=== PATIENT | female | born 1955 | race Caucasian/White ===

== ENCOUNTER 2020-07-07 19:45 | Emergency (ER) | payer MEDICARE, MEDICAID, SELFPAY ==
--- NOTE | 2020-07-07 | XR_ITS ---
EXAMINATION: XR ELBOW, LEFT CLINICAL INFORMATION: Pain status post fall COMPARISON: None TECHNIQUE: AP, lateral, and oblique views of the left elbow. FINDINGS: The bones and soft tissues are normal. No fracture or joint effusion. Alignment is anatomic. Joint spaces are maintained. IMPRESSION: Normal left elbow. No definite fracture is seen.
[2020-07-07 19:58] VITALS: BP 110/69; PULSE 86; RESP 16; TEMP 37.1; O2SAT 100; BMI 45.7
--- NOTE | 2020-07-07 21:59 | ED.FALL ---
HPI - Fall General Chief Complaint: Fall Stated Complaint: LT ELBOW PAIN S/P FALL Time Seen by Provider: 07/07/20 21:59 Source: patient Mode of arrival: ambulatory History of Present Illness MD complaint: fall Onset (ago): hour(s) (few) Fall from: standing Place fall occurred: other ([employer]) Loss of consciousness: none Location of injury: other Location of injury - extremities: left: elbow Related Data Allergies Allergy/AdvReac Type Severity Reaction Status Date / Time adhesive tape Allergy Intermediate SKIN Unverified 06/18/20 15:29 REDNESS latex Allergy Intermediate SKIN RASH Unverified 06/18/20 15:29 WITH TAPE Adhesive Tape Allergy Unknown Uncoded 09/19/19 00:00 DUST Allergy Unknown ITCHY/WATERY Uncoded 06/18/20 15:29 EYES Dust and weeds Allergy Unknown stuffy nose Uncoded 12/05/18 00:00 Latex Gloves Allergy Unknown Uncoded 09/19/19 00:00 seasonal Allergy Unknown Uncoded 09/19/19 00:00 surgical paper tape Allergy Unknown rash Uncoded 12/05/18 00:00 Tide Allergy Unknown rash Uncoded 12/05/18 00:00 Review of Systems Review of Systems: Constitutional : No Weight loss, No Fever, No Chills, No Night Sweats, No Fatigue, No Malaise ENT/Mouth : No Hearing loss, No Ear Pain, No Nasal Congestion, No Sinus Pain, No Hoarseness, No sore throat, No Rhinorrhea, No Swallowing Difficulty Eyes: No Eye Pain, No Swelling, No Redness, No Foreign Body, No Discharge, No Vision Changes Cardiovascular : No Chest Pain, No SOB, No Dyspnea on Exertion, No Orthopnea, No Edema, No Palpitations Respiratory : No Cough, No Sputum, No Wheezing, No Smoke Exposure, No Dyspnea Gastrointestinal : No Nausea, No Vomiting, No Diarrhea, No Constipation, No abdominal Pain, No Hematochezia, No Melena Genitourinary : no irregular bleeding, No Dysuria, No Urinary Frequency, No Hematuria, No Urinary Incontinence, No Urgency, No Flank Pain, No Urinary Flow Changes, No Hesitancy Musculoskeletal : No joint pain, No Myalgias, No Joint Swelling Skin : No Skin Lesions, No rash Neuro : No Weakness, No Numbness, No Paresthesias, No Loss of Consciousness, No Dizziness, No Headache Psych : No Anxiety/Panic, No Depression, No SI/HI/AH/VH, No Social Issues, Heme/Lymph: No Bruising, No Bleeding,No Lymphadenopathy Endocrine : No Polyuria, No Polydipsia, No Temperature Intolerance [facility] Past Medical History Medical History Arthritis Developmental delay, mild Social History Social History Alcohol intake: never Smoking Status: Unknown if ever smoked Smoked in Last 30 Days: No Use of substances other than those prescribed or required for medical reasons: No Advance Directives: No Advance Directives Information Provided: No Physical Exam Vital Signs and I&O and Narrative: Vital Signs and I&O: Vital Signs Temp 98.7 F 07/07/20 19:58 Pulse 86 07/07/20 19:58 Resp 16 07/07/20 19:58 BP 110/69 07/07/20 19:58 Pulse Ox 100 07/07/20 19:58 Intake & Output 07/07/20 07/07/20 07/08/20 06:59 18:59 06:59 Weight 113.398 kg Body Mass Index 45.7 Const: General: cooperative Nutritional Appearance: average body habitus Orientation/consciousness: oriented to person Limitations: no limitations HENMT: Head: Yes normal to inspection Ears: hearing grossly normal bilaterally Neck: Neck: Yes normal visual inspection and Yes full ROM Chest: Chest palpation & inspection: normal inspection of the chest and normal palpation of entire chest wall Resp: Effort & Inspection: normal respiratory effort Auscultation: clear to auscultation bilaterally Cardio: Rate: regular rate Rhythm: regular rhythm Heart sounds: S1 normal heart sound present and S2 normal heart sound present GI: Inspection: Yes normal to inspection Palpation (GI): Soft to palpation and nontender : General: Yes no CVA tenderness Back/Spine/Pelvis: Back: no CVA tenderness Thoracic/Lumbar Spine: thoracic and lumbar spine normal to inspection Pelvis: no pain with anterior-posterior compression Neuro: General: oriented to person Cranial nerves: Yes CN's II-XII intact bilaterally Gait exam (Neuro): Normal gait present Motor exam (neuro): 5/5 motor strength present throughout Extrem: Right upper extremity: full ROM and no joint enlargement Left upper extremity: full ROM, no joint enlargement and elbow/forearm ( mild tenderness) Shoulder/upper arm images: 1. mild tenderness, Course Course Course Narrative: patient with minor injury to left elbow with good range of movements no bony deformity neurovascular intact x-rays negative for any fracture will discharge patient home on Tylenol Discharge Plan Discharge Clinical Impression: Fall, Contusion of elbow, left Patient Disposition: Home, Self-Care Instructions: Contusion in Adults (ED), Fall Prevention (ED) Additional Instructions: apply ice, take Tylenol for pain as needed every 6 hours Interventions: ED Discharge Assessment Last Done: 07/07/20 22:10 Discharge Date/Time: 07/07/20 22:24
== END 2020-07-07 22:24 | disposition home or self-care (01) ==
PROVIDERS: Emergency Provider Internal Medicine; PCP Internal Medicine
DX: S50.02XA Contusion of left elbow, initial encounter (principal); S50.312A Abrasion of left elbow, initial encounter; M25.522 Pain in left elbow; W18.30XA Fall on same level, unspecified, initial encounter; Y93.9 Activity, unspecified; Y92.513 Shop (commercial) as the place of occurrence of the external cause; Y99.9 Unspecified external cause status
CPT/HCPCS: 73070; 99283; 99284

== ENCOUNTER 2020-08-13 01:49 | Emergency (ER) | payer MEDICARE, MEDICAID, SELFPAY ==
[2020-08-13 01:56] VITALS: BP 130/60; PULSE 79; RESP 76; TEMP 36.8; O2SAT 96; BMI 50.7
--- NOTE | 2020-08-13 03:24 | CT_ITS ---
EXAMINATION: CT ABDOMEN AND PELVIS WITH CONTRAST CLINICAL INFORMATION: Lower abdominal pain. COMPARISON: 06/03/2020. TECHNIQUE: Contiguous axial thin section helical images of the abdomen and pelvis were performed following the administration of 100 mL of intravenous Omnipaque 350. The data set was reformatted in the coronal and sagittal planes and reviewed on an independent workstation. DLP: 1132 mGy-cm. FINDINGS: The visualized lung bases are clear. The visualized portions of the heart are unremarkable. There is a small hiatal hernia. The liver is of normal size and attenuation without concerning focal lesions nor intrahepatic biliary ductal dilation. There is a stable 17 mm low-attenuation lesion within the left lobe of the liver. A normal gallbladder is identified. There is no wall thickening or discernible pericholecystic fluid. The spleen, pancreas, adrenal glands are unremarkable. Both kidneys are of normal size and attenuation without hydronephrosis or nephrolithiasis. Following the administration of IV contrast, prompt symmetric nephrograms are displayed. There is no abdominal free fluid. There is neither mesenteric nor retroperitoneal lymphadenopathy. Surgical clips are again noted about the rectum; otherwise, unremarkable unopacified loops of small and large bowel are identified. There is no pelvic free fluid. The urinary bladder is unremarkable. There is neither pelvic nor inguinal lymphadenopathy. Bone windows: Neither sclerotic nor lytic bone lesions are identified. CT/CT abdomen pelvis w con IMPRESSION: No evidence for acute abdominal or pelvic inflammatory or infectious processes. Automated exposure control (Care Dose) Adjustment of the mA and/or kv according to patient size (this includes techniques or standardized protocols for targeted exams where dose is matched to indication / reason for exam; i.e. extremities or head).
[2020-08-13 03:57] LABS: Basophils Percent Auto 0.5 % (0-2); Eosinophils Absolute Auto 0.1 X10*3/uL (0.0-0.4); Eosinophils Percent Auto 1.2 % (0-4); Hematocrit 41.4 % (37-47); Hemoglobin 13.1 g/dl (12.0-16.0); Imm Gran Abs Auto 0.02 X10*3/uL (0.00-0.03); Imm Gran Pct Auto 0.2 % (0.0-0.4); Lymphocytes Absolute Auto 1.7 X10*3/uL (1.2-4.9); Lymphocytes Percent Auto 21.2 % (20-40); MANUAL DIFF FLAG NO; Mean Corpuscular HGB Conc 31.6 g/dl (31.0-35.0); Mean Corpuscular Hemoglobin 28.9 pg (27.0-33.0); Mean Corpuscular Volume 91.2 fL (80-98); Mean Platelet Volume 9.6 fL (9.4-12.3); Monocytes Absolute Auto 0.7 X10*3/uL (0.1-1.2); Monocytes Percent Auto 8.1 % (2-11); Neutrophils Absolute Auto 5.6 X10*3/uL (2.0-8.3); Neutrophils Percent Auto 68.8 % (45-73); Platelet Count 293 X10*3/uL (160-400); Red Blood Count 4.54 X10*6/uL (4.20-5.50); White Blood Count 8.1 X10*3/uL (4.8-10.8)
[2020-08-13] MEDS: 0.9 % Sodium Chloride 1,000 ML 999 ML IVCONT (03:57)
[2020-08-13 04:21] LABS: Alanine Aminotransferase 28 U/L (0-31); Albumin Level 3.7 g/dL (3.5-5.0); Alkaline Phosphatase 104 U/L (39-117); Anion Gap 12 (12-20); Aspartate Amino Transferase 22 U/L (5-31); Bilirubin Total 0.4 mg/dL (0.0-1.0); Blood Urea Nitrogen 16 mg/dL (9-16); Calcium 8.8 mg/dL (8.4-10.2); Carbon Dioxide 28 mmol/L (22-29); Chloride 104 mmol/L (96-108); Creatinine Clr Calc Pharmacy 100.7; Estimated Glomerular Filt Rate > 60; Glucose Random 102 mg/dL (60-115); Potassium 3.5 mmol/l (3.3-5.1); Sodium 140 mmol/L (135-145); Total Protein 6.7 g/dL (6.5-8.0)
[2020-08-13 04:22] LABS: Alanine Aminotransferase 28 U/L (0-31); Albumin Level 3.7 g/dL (3.5-5.0); Alkaline Phosphatase 106 U/L (39-117); Anion Gap 12 (12-20); Aspartate Amino Transferase 21 U/L (5-31); Bilirubin Direct 0.2 mg/dL (0.0-0.5); Bilirubin Total 0.4 mg/dL (0.0-1.0); Blood Urea Nitrogen 16 mg/dL (9-16); Calcium 8.8 mg/dL (8.4-10.2); Carbon Dioxide 28 mmol/L (22-29); Chloride 104 mmol/L (96-108); Creatinine Clr Calc Pharmacy 100.7; Estimated Glomerular Filt Rate > 60; Glucose Random 102 mg/dL (60-115); Lipase 21 U/L (8-78); Potassium 3.6 mmol/l (3.3-5.1); Sodium 140 mmol/L (135-145); Total Protein 6.7 g/dL (6.5-8.0)
[2020-08-13] MEDS: iohexoL 350 MG/ML 100 ML INFUS..BTL IV (04:51)
--- NOTE | 2020-08-13 05:00 | PC.NURSE ---
PT AMBULATORY WITH STEADY GAIT TO BATHROOM X 2. PT HAVING DIFFICULTY FOLLOWING DIRECTIONS ON HOW TO OBTAIN URINE SAMPLE. WILL STAY WITH PATIENT ON NEXT ATTEMPT.
[2020-08-13] MEDS: Acetaminophen 325 MG TABLET 650 MG PO (05:18)
[2020-08-13 06:14] VITALS: BP 133/74; PULSE 76; RESP 18; O2SAT 98
--- NOTE | 2020-08-13 06:23 | ED.ABDPAIN ---
HPI - Abdominal Pain General Chief Complaint: Abdominal Pain Stated Complaint: abdominal pain Time Seen by Provider: 08/13/20 03:11 Mode of arrival: EMS Limitations: no limitations History of Present Illness HPI narrative: Patient comes to emergency room complaining of abdominal pain, bilateral lower quadrants 1 hour prior to arrival and anxiety. Patient denies vomiting diarrhea or fever. Patient reporting anxiety. MD elicited complaint: abdominal pain Related Data Previous Rx's Medication Instructions Recorded cefuroxime axetil 500 mg PO BID #14 tab 08/13/20 Allergies Allergy/AdvReac Type Severity Reaction Status Date / Time adhesive tape Allergy Intermediate SKIN Verified 08/13/20 03:56 REDNESS latex Allergy Intermediate SKIN RASH Verified 08/13/20 03:56 WITH TAPE Adhesive Tape Allergy Unknown Itching Uncoded 08/13/20 03:56 DUST Allergy Unknown ITCHY/WATERY Uncoded 06/18/20 15:29 EYES Dust and weeds Allergy Unknown stuffy nose Uncoded 12/05/18 00:00 Latex Gloves Allergy Unknown Itching Uncoded 08/13/20 03:56 seasonal Allergy Unknown Itching Uncoded 08/13/20 03:56 surgical paper tape Allergy Unknown rash Uncoded 12/05/18 00:00 Tide Allergy Unknown rash Uncoded 12/05/18 00:00 Review of Systems Review of Systems Constitutional : No Weight loss, No Fever, No Chills, No Night Sweats, No Fatigue, No Malaise ENT/Mouth : No Hearing loss, No Ear Pain, No Nasal Congestion, No Sinus Pain, No Hoarseness, No sore throat, No Rhinorrhea, No Swallowing Difficulty Eyes: No Eye Pain, No Swelling, No Redness, No Foreign Body, No Discharge, No Vision Changes Cardiovascular : No Chest Pain, No SOB, No Dyspnea on Exertion, No Orthopnea, No Edema, No Palpitations Respiratory : No Cough, No Sputum, No Wheezing, No Smoke Exposure, No Dyspnea Gastrointestinal : Patient complaining bilateral lower quadrant pain, no nausea, no vomiting or diarrhea, No Hematochezia, No Melena Genitourinary : no irregular bleeding, No Dysuria, No Urinary Frequency, No Hematuria, No Urinary Incontinence, No Urgency, No Flank Pain, No Urinary Flow Changes, No Hesitancy Musculoskeletal : No joint pain, No Myalgias, No Joint Swelling Skin : No Skin Lesions, No rash Neuro : No Weakness, No Numbness, No Paresthesias, No Loss of Consciousness, No Dizziness, No Headache Psych : No Anxiety/Panic, No Depression, No SI/HI/AH/VH, No Social Issues, Heme/Lymph: No Bruising, No Bleeding,No Lymphadenopathy Endocrine : No Polyuria, No Polydipsia, No Temperature Intolerance Physical Exam Vital Signs: Vital Signs: Last Vital Signs Temp 98.2 F 08/13/20 01:56 Pulse 76 08/13/20 06:14 Resp 18 08/13/20 06:14 BP 133/74 08/13/20 06:14 Pulse Ox 98 08/13/20 06:14 Body Mass Index 50.7 Course Course Course Narrative: I discussed the labs with the patient, patient has a UTI. Patient states she has been treated recently for UTI but does not remember when and what antibiotic she got MDM - Abdominal Pain Lab Data Result diagrams: 08/13/20 03:52 08/13/20 03:53 Labs: Lab Results 08/13/20 08/13/20 08/13/20 Range/Units 03:52 03:52 03:53 WBC 8.1 (4.8-10.8) X10*3/uL RBC 4.54 (4.20-5.50) X10*6/uL Hgb 13.1 (12.0-16.0) g/dl Hct 41.4 (37-47) % MCV 91.2 (80-98) fL MCH 28.9 (27.0-33.0) pg MCHC 31.6 (31.0-35.0) g/dl RDW 13.0 (11.0-16.0) % Plt Count 293 (160-400) X10*3/uL MPV 9.6 (9.4-12.3) fL Immature Gran % (Auto) 0.2 (0.0-0.4) % Neut % (Auto) 68.8 (45-73) % Lymph % (Auto) 21.2 (20-40) % [place] % (Auto) 8.1 (2-11) % Eos % (Auto) 1.2 (0-4) % Baso % (Auto) 0.5 (0-2) % Lymph # (Auto) 1.7 (1.2-4.9) X10*3/uL [place] # (Auto) 0.7 (0.1-1.2) X10*3/uL Eos # (Auto) 0.1 (0.0-0.4) X10*3/uL Baso # (Auto) 0.0 (0.0-0.2) X10*3/uL Abs Immat Gran (auto) 0.02 (0.00-0.03) X10*3/uL Absolute Neuts (auto) 5.6 (2.0-8.3) X10*3/uL Absolute Nucleated RBC 0.000 (0.0-0.012) X10*3/uL Nucleated RBC % (auto) 0.0 (0.0-0.2) /100WBC Hold Blue Top SEE NOTE Sodium 140 (135-145) mmol/L Potassium 3.5 (3.3-5.1) mmol/l Chloride 104 (96-108) mmol/L Carbon Dioxide 28 (22-29) mmol/L Anion Gap 12 (12-20) BUN 16 (9-16) mg/dL Creatinine 0.68 (0.5-1.4) mg/dL Estim Creat Clear Calc 100.7 Estimated GFR > 60 Random Glucose 102 (60-115) mg/dL Calcium 8.8 (8.4-10.2) mg/dL Total Bilirubin 0.4 (0.0-1.0) mg/dL Direct Bilirubin (0.0-0.5) mg/dL AST 22 (5-31) U/L ALT 28 (0-31) U/L Alkaline Phosphatase 104 (39-117) U/L Total Protein 6.7 (6.5-8.0) g/dL Albumin 3.7 (3.5-5.0) g/dL Lipase (8-78) U/L Urine Color Urine Appearance Urine pH (5.0-8.0) Ur Specific [place] (1.005-1.025) Urine Protein (NEG-TRACE) MG/DL Urine Glucose (UA) (NEG) MG/DL Urine Ketones (NEG) MG/DL Urine Blood (NEG) Urine Nitrite (NEG) Ur Leukocyte Esterase (NEG) Urine RBC (0) /HPF Urine WBC (0-4) /HPF Ur Squamous Epith Cells /LPF Urine Bacteria /LPF 11/12/20 11/12/20 Range/Units 03:53 06:30 WBC (4.8-10.8) X10*3/uL RBC (4.20-5.50) X10*6/uL Hgb (12.0-16.0) g/dl Hct (37-47) % MCV (80-98) fL MCH (27.0-33.0) pg MCHC (31.0-35.0) g/dl RDW (11.0-16.0) % Plt Count (160-400) X10*3/uL MPV (9.4-12.3) fL Immature Gran % (Auto) (0.0-0.4) % Neut % (Auto) (45-73) % Lymph % (Auto) (20-40) % [place] % (Auto) (2-11) % Eos % (Auto) (0-4) % Baso % (Auto) (0-2) % Lymph # (Auto) (1.2-4.9) X10*3/uL [place] # (Auto) (0.1-1.2) X10*3/uL Eos # (Auto) (0.0-0.4) X10*3/uL Baso # (Auto) (0.0-0.2) X10*3/uL Abs Immat Gran (auto) (0.00-0.03) X10*3/uL Absolute Neuts (auto) (2.0-8.3) X10*3/uL Absolute Nucleated RBC (0.0-0.012) X10*3/uL Nucleated RBC % (auto) (0.0-0.2) /100WBC Hold Blue Top Sodium 140 (135-145) mmol/L Potassium 3.6 (3.3-5.1) mmol/l Chloride 104 (96-108) mmol/L Carbon Dioxide 28 (22-29) mmol/L Anion Gap 12 (12-20) BUN 16 (9-16) mg/dL Creatinine 0.68 (0.5-1.4) mg/dL Estim Creat Clear Calc 100.7 Estimated GFR > 60 Random Glucose 102 (60-115) mg/dL Calcium 8.8 (8.4-10.2) mg/dL Total Bilirubin 0.4 (0.0-1.0) mg/dL Direct Bilirubin 0.2 (0.0-0.5) mg/dL AST 21 (5-31) U/L ALT 28 (0-31) U/L Alkaline Phosphatase 106 (39-117) U/L Total Protein 6.7 (6.5-8.0) g/dL Albumin 3.7 (3.5-5.0) g/dL Lipase 21 (8-78) U/L Urine Color YELLOW Urine Appearance HAZY Urine pH 5.5 (5.0-8.0) Ur Specific [place] 1.015 (1.005-1.025) Urine Protein NEG (NEG-TRACE) MG/DL Urine Glucose (UA) NEG (NEG) MG/DL Urine Ketones NEG (NEG) MG/DL Urine Blood NEG (NEG) Urine Nitrite POS H (NEG) Ur Leukocyte Esterase NEG (NEG) Urine RBC 0 (0) /HPF Urine WBC 10-14 H (0-4) /HPF Ur Squamous Epith Cells TRACE /LPF Urine Bacteria 3+ /LPF Discharge Plan Discharge Clinical Impression: Acute UTI Abdominal pain Qualifiers: Abdominal location: unspecified location Qualified Code(s): R10.9 - Unspecified abdominal pain Patient Disposition: Home, Self-Care Instructions: Urinary Tract Infection in Older Adults (ED) Additional Instructions: Please follow-up with your primary care physician tomorrow. If you have any worsening or new symptoms, please return to the emergency room or call 911 Prescriptions: New cefuroxime axetil 500 mg tablet 500 mg PO BID Qty: 14 RF: 0 PMFSH Past Medical History Medical History Arthritis Developmental delay, mild Social History Social History Alcohol intake: never Smoking Status: Unknown if ever smoked Advance Directives: No Advance Directives Information Provided: No
[2020-08-13 06:43] LABS: Glucose Urine UA NEG (NEG); Leukocyte Esterase Urine NEG (NEG); Nitrite Urine POS (NEG); PH 5.5 (5.0-8.0); Specific Gravity - Urine 1.015 (1.005-1.025); Urine Blood NEG (NEG); Urine Ketones NEG (NEG); Urine Protein NEG (NEG-TRACE)
[2020-08-13 06:44] LABS: Appearance Urine HAZY; Color Urine YELLOW
[2020-08-13 06:51] LABS: Bacteria Urine 3+ /LPF; RBC Urine 0 /HPF (0); Squamous Epithelial Cell Urine TRACE /LPF
[2020-08-13] MEDS: cefTRIAXone sodium 1 GM in 0.9 % Sodium Chloride 50 ML IV (07:13)
[2020-08-13 08:38] VITALS: BP 143/66; PULSE 67; RESP 18; TEMP 36.6; O2SAT 98
== END 2020-08-13 08:47 | disposition home or self-care (01) ==
PROVIDERS: Emergency Provider Emergency Medicine; PCP Internal Medicine
DX: N39.0 Urinary tract infection, site not specified (principal); R10.30 Lower abdominal pain, unspecified; Z79.899 Other long term (current) drug therapy
CPT/HCPCS: 36415; 74177; 80048; 80053; 80076; 81001; 82248; 83690; 85025; 87086; 87088; 87186; 96361; 96365; 99283; 99284; J0696; Q9967

== ENCOUNTER 2020-08-24 14:09 | Outpatient (REF) | payer MEDICARE, MEDICAID, SELFPAY | END 2020-08-24 14:10 | disposition home or self-care (01) | LOC: HO.LAB 14:09 | PROVIDERS: PCP Internal Medicine; Visit Provider Internal Medicine | DX: Z20.828 Contact with and (suspected) exposure to other viral communicable diseases (principal) | CPT/HCPCS: C9803; U0003 ==

== ENCOUNTER 2020-09-26 20:50 | Emergency (ER) | payer MEDICARE, MEDICAID, SELFPAY ==
[2020-09-26 21:07] VITALS: BP 117/45; PULSE 68; RESP 15; TEMP 36.9; O2SAT 95; BMI 48.6
--- NOTE | 2020-09-26 21:28 | ED_ITS ---
HPI - General Adult General Chief complaint: General Medical Stated complaint: blood stool Time Seen by Provider: 09/26/20 20:53 Source: patient and EMS Mode of arrival: EMS Limitations: no limitations History of Present Illness HPI narrative: Patient comes to emergency room complaining of seeing blood in her briefs. Patient comes from a assisted-living facility, per caretakers, the patient had some whitish reddish discharge on her briefs. Patient states that it only happened 1 time earlier today, denies vaginal bleeding. Patient denies any abdominal pain, no vomiting, no diarrhea, no rectal pain. At this time, patient asymptomatic. Per EMS report, patient is known to have large lung tumor, which is being followed up in [facility] complaint: Blood per rectum Related Data Previous Rx's Medication Instructions Recorded cefuroxime axetil 500 mg PO BID #14 tab 08/13/20 Allergies Allergy/AdvReac Type Severity Reaction Status Date / Time adhesive tape Allergy Intermediate SKIN Verified 08/13/20 03:56 REDNESS latex Allergy Intermediate SKIN RASH Verified 08/13/20 03:56 WITH TAPE Adhesive Tape Allergy Unknown Itching Uncoded 08/13/20 03:56 DUST Allergy Unknown ITCHY/WATERY Uncoded 06/18/20 15:29 EYES Dust and weeds Allergy Unknown stuffy nose Uncoded 12/05/18 00:00 Latex Gloves Allergy Unknown Itching Uncoded 08/13/20 03:56 seasonal Allergy Unknown Itching Uncoded 08/13/20 03:56 surgical paper tape Allergy Unknown rash Uncoded 12/05/18 00:00 Tide Allergy Unknown rash Uncoded 12/05/18 00:00 Review of Systems Review of Systems: Constitutional : No Weight loss, No Fever, No Chills, No Night Sweats, No Fatigue, No Malaise ENT/Mouth : No Hearing loss, No Ear Pain, No Nasal Congestion, No Sinus Pain, No Hoarseness, No sore throat, No Rhinorrhea, No Swallowing Difficulty Eyes: No Eye Pain, No Swelling, No Redness, No Foreign Body, No Discharge, No Vision Changes Cardiovascular : No Chest Pain, No SOB, No Dyspnea on Exertion, No Orthopnea, No Edema, No Palpitations Respiratory : No Cough, No Sputum, No Wheezing, No Smoke Exposure, No Dyspnea Gastrointestinal : No Nausea, No Vomiting, No Diarrhea, No Constipation, No abdominal Pain, complaining of seeing blood in her underwear Genitourinary : no irregular bleeding, No Dysuria, No Urinary Frequency, No Hematuria, No Urinary Incontinence, No Urgency, No Flank Pain, No Urinary Flow Changes, No Hesitancy Musculoskeletal : No joint pain, No Myalgias, No Joint Swelling Skin : No Skin Lesions, No rash Neuro : No Weakness, No Numbness, No Paresthesias, No Loss of Consciousness, No Dizziness, No Headache Psych : No Anxiety/Panic, No Depression, No SI/HI/AH/VH, No Social Issues, Heme/Lymph: No Bruising, No Bleeding,No Lymphadenopathy Endocrine : No Polyuria, No Polydipsia, No Temperature Intolerance [facility] Past Medical History Medical History (Updated 09/27/20 @ 00:16 by Tara Hitchcock MD) Arthritis Developmental delay, mild Lung mass Social History Social History Alcohol intake: never Smoking Status: Never smoker Use of substances other than those prescribed or required for medical reasons: No Advance Directives: No Physical Exam Vital Signs: Vital Signs: Last Vital Signs Temp 98.4 F 09/26/20 21:07 Pulse 68 09/26/20 21:07 Resp 15 09/26/20 21:07 BP 117/45 L 09/26/20 21:07 Pulse Ox 95 09/26/20 21:07 Body Mass Index 48.6 Appearance: Alert. Oriented X3. No acute distress. Eyes: Pupils equal, round and reactive to light. ENT: Pharynx normal. Neck: Normal inspection. Neck supple. No lymph nodes noted. No crepitus CVS: Normal heart rate and rhythm. Pulses normal. Normal S1 and S2 Respiratory: No respiratory distress. Breath sounds normal. No Wheezing. No rales Abdomen: Soft and nontender. No rigidity. No distention. good BS x4. Digital rectal exam shows normal brown stool, no hemorrhoids Skin: Skin warm and dry. Normal skin color. Normal skin turgor. Extremities: No lower extremity edema. No lower extremity edema. No Lacerations. No Rash Neuro: Oriented X 3. No motor deficit. No sensory deficit. Moving all extermities. No slurred speech. Course Course Course Narrative: Patient has stool occult blood test is negative. Per patient's assisted living facility, they are requesting a COVID-19 test. Patient's urinalysis was negative, patient was tested for COVID-19, the results are pending. On physical exam, patient had no blood in her briefs or in the rectum Medical Decision Making Lab Data Labs: Lab Results 09/26/20 09/26/20 Range/Units 21:29 23:25 Urine Color YELLOW Urine Appearance CLEAR Urine pH 7.5 (5.0-8.0) Ur Specific [place] 1.020 (1.005-1.025) Urine Protein NEG (NEG-TRACE) MG/DL Urine Glucose (UA) NEG (NEG) MG/DL Urine Ketones NEG (NEG) MG/DL Urine Blood NEG (NEG) Urine Nitrite NEG (NEG) Ur Leukocyte Esterase NEG (NEG) Stool Occult Blood NEG (NEG) Discharge Plan Discharge Clinical Impression: History of rectal bleeding Patient Disposition: Home, Self-Care Additional Instructions: There was no blood in the stool, the urinalysis was negative for infection. You were tested for COVID-19, you will receive a phone call in approximately 72 hours if your results are positive. Please follow-up with your primary care physician tomorrow. If you have any worsening or new symptoms, please return to the emergency room or call 911 Prescriptions: No Action cefuroxime axetil 500 mg tablet 500 mg PO BID Qty: 14 RF: 0
[2020-09-26 21:48] LABS: OBS Int Ctl Valid YES; OBS1 NEG (NEG)
[2020-09-26 23:38] LABS: Glucose Urine UA NEG (NEG); Leukocyte Esterase Urine NEG (NEG); Nitrite Urine NEG (NEG); PH 7.5 (5.0-8.0); Urine Blood NEG (NEG); Urine Ketones NEG (NEG); Urine Protein NEG (NEG-TRACE)
[2020-09-26 23:42] LABS: Appearance Urine CLEAR; Color Urine YELLOW
[2020-09-27] VITALS: RESP 15
== END 2020-09-27 01:09 | disposition home or self-care (01) ==
PROVIDERS: Emergency Provider Emergency Medicine
DX: K62.5 Hemorrhage of anus and rectum (principal); Z20.828 Contact with and (suspected) exposure to other viral communicable diseases
CPT/HCPCS: 81003; 82272; 99284; U0003

== ENCOUNTER 2020-10-19 12:25 | Outpatient (REF) | payer MEDICARE, MEDICAID, SELFPAY ==
--- NOTE | 2020-10-19 12:32 | MM_ITS ---
EXAMINATION: MM SCREENING DIGITAL MAMMOGRAPHY, BILATERAL CLINICAL INFORMATION: Screening. Asymptomatic. The lifetime risk of breast cancer based on the Tyrer-Cuzick Model is 5%. COMPARISON: Mammography: 02/16/2019, 10/25/2016 TECHNIQUE: Digital mammography is performed in craniocaudal and mediolateral oblique views along with computer-aided detection (CAD). Additional bilateral MLO views are provided. FINDINGS: The breasts are almost entirely fatty (ACR BI-RADS breast composition Category a). There are no significant masses, abnormal calcifications, or other abnormalities. The axilla and skin contours are unremarkable. No significant changes. MM/MM screening mammo BI IMPRESSION: No mammographic evidence of malignancy. ASSESSMENT: BI-RADS 1: Negative RECOMMENDATION: Routine annual mammography screening. This patient's information was entered into a reminder system with a target due date for their next mammogram.
== END 2020-10-19 12:26 | disposition home or self-care (01) ==
LOC: HO.MAMMO 12:25
PROVIDERS: PCP Internal Medicine; Visit Provider Internal Medicine
DX: Z12.31 Encounter for screening mammogram for malignant neoplasm of breast (principal)
CPT/HCPCS: 77067

== ENCOUNTER 2021-01-05 09:53 | Emergency (ER) | payer MEDICARE, MEDICAID, SELFPAY ==
[2021-01-05] VITALS (7 sets, daily range): BP systolic 138–155; BP diastolic 66–79; PULSE 87–101; RESP 16–19; TEMP 36.6–37.2; O2SAT 96–99; BMI 38.9
--- NOTE | ~2021-01-05 | XR_ITS ---
EXAMINATION: XR SHOULDER, LEFT CLINICAL INFORMATION: Post reduction COMPARISON: Previous x-rays most recent from earlier the same day TECHNIQUE: AP view of the left shoulder. FINDINGS: The humeral head is dislocated medially and inferiorly with respect to the glenoid. There are fractures of the left greater tuberosity and glenoid. This appears similar to x-ray from earlier the same day There is mild arthritis at the acromioclavicular joint. XR/XR shoulder LT min 2V IMPRESSION: Fracture dislocation of the left shoulder similar to earlier exam.
--- NOTE | ~2021-01-05 | XR_ITS ---
EXAMINATION: 1. RADIOGRAPHS LEFT SHOULDER 2. RADIOGRAPHS LEFT HUMERUS CLINICAL INFORMATION: Pain after fall COMPARISON: Left shoulder x-rays May 25, 2020 TECHNIQUE: 2 views of the left shoulder and 2 views of the left humerus were obtained. FINDINGS: Anterior dislocation of the left humeral head. There is a mildly displaced fracture of the left humeral head. Cortical irregularity of the glenoid suggests a nondisplaced fracture. There are hypertrophic changes of the left acromioclavicular joint. Visualized left-sided ribs and lung parenchyma are unremarkable. Degenerative changes of the spine. XR/XR humerus LT IMPRESSION: Anterior shoulder dislocation with associated fractures of the humeral head and glenoid.
--- NOTE | ~2021-01-05 | XR_ITS ---
EXAMINATION: XR SHOULDER, LEFT CLINICAL INFORMATION: Status post reduction COMPARISON: X-rays earlier today TECHNIQUE: Internal rotation view of the left shoulder. XR/XR shoulder LT 1V FINDINGS/IMPRESSION: Humeral head appears to demonstrate good articulation with the glenoid fossa on this single view of the left shoulder. Fractures of the humeral head and glenoid fossa are less well appreciated on this x-ray.
--- NOTE | ~2021-01-05 | XR_ITS ---
EXAMINATION: 1. RADIOGRAPHS LEFT SHOULDER 2. RADIOGRAPHS LEFT HUMERUS CLINICAL INFORMATION: Pain after fall COMPARISON: Left shoulder x-rays May 25, 2020 TECHNIQUE: 2 views of the left shoulder and 2 views of the left humerus were obtained. FINDINGS: Anterior dislocation of the left humeral head. There is a mildly displaced fracture of the left humeral head. Cortical irregularity of the glenoid suggests a nondisplaced fracture. There are hypertrophic changes of the left acromioclavicular joint. Visualized left-sided ribs and lung parenchyma are unremarkable. Degenerative changes of the spine. XR/XR shoulder LT min 2V IMPRESSION: Anterior shoulder dislocation with associated fractures of the humeral head and glenoid.
--- NOTE | 2021-01-05 10:33 | ED.EXTPRO ---
HPI - Extremity Problem General Chief complaint: Extremity Injury, Upper Stated complaint: lt arm pain, fall Time Seen by Provider: 01/05/21 10:25 Source: patient Mode of arrival: ambulatory Limitations: no limitations History of Present Illness HPI Narrative: 65 y/o female presenting from her custodial c/o left arm and shoulder pain s/p unwitnessed fall at 1am today. She states she was using her walker in the middle the night to go to the bathroom when she tripped on her nightstand and fell to the ground on her left side. Staff in the custodial heard her fall. EMS was called to help her up, per their policy. EMS assisted her up and she c/o left arm pain at the time. She had no apparent injury so she was kept at home. She did not hit her head or lose consciousness. She is not on anticoagulation. She reported continued pain this morning so she was brought in for evaluation. She denies numbness, tingling. She has pain with abduction. She was able to walk into the ER using her rollator walker but was favoring her right arm. MD Complaint: extremity pain Onset (ago): hour(s) (9) Pain Consistency: constant Location: left and upper extremity Quality: aching Radiation: proximal Relieving factors: immobilization and rest Exacerbating factors: range of motion and palpation Associated symptoms: denies other symptoms Related Data Previous Rx's Medication Instructions Recorded cefuroxime axetil 500 mg PO BID #14 tab 08/13/20 Allergies Allergy/AdvReac Type Severity Reaction Status Date / Time adhesive tape Allergy Intermediate SKIN Verified 08/13/20 03:56 REDNESS latex Allergy Intermediate SKIN RASH Verified 08/13/20 03:56 WITH TAPE Adhesive Tape Allergy Unknown Itching Uncoded 08/13/20 03:56 DUST Allergy Unknown ITCHY/WATERY Uncoded 06/18/20 15:29 EYES Dust and weeds Allergy Unknown stuffy nose Uncoded 12/05/18 00:00 Latex Gloves Allergy Unknown Itching Uncoded 08/13/20 03:56 seasonal Allergy Unknown Itching Uncoded 08/13/20 03:56 surgical paper tape Allergy Unknown rash Uncoded 12/05/18 00:00 Tide Allergy Unknown rash Uncoded 12/05/18 00:00 Review of Systems Review of Systems: Constitutional: No Fever, No Chills Cardiovascular: No Chest Pain Gastrointestinal: No Nausea, No Vomiting, No Diarrhea, No abdominal Pain Musculoskeletal: + joint pain, + Myalgias Skin: No Skin Lesions, No rash Neuro: No Weakness, No Numbness, No Dizziness, No Headache Heme/Lymph: No Bruising PMFSH Past Medical History Attestation statement: The following information was validated with the patient. Medical History Arthritis Colon cancer Developmental delay, mild Lung mass Social History Social History Alcohol intake: never Smoking Status: Never smoker Smoked in Last 30 Days: No Use of substances other than those prescribed or required for medical reasons: No Advance Directives: No Advance Directives Information Provided: No Physical Exam Vital Signs: Vital Signs: Last Vital Signs Temp 98 F 01/05/21 13:20 Pulse 87 01/05/21 14:14 Resp 18 01/05/21 14:08 BP 138/66 01/05/21 14:14 Pulse Ox 97 01/05/21 14:14 Body Mass Index 38.9 Appearance: Alert. Oriented X3. No acute distress. HEENT: normal inspection CVS: Normal heart rate and rhythm. Pulses normal. Respiratory: No respiratory distress. Skin: Skin warm and dry. Normal skin color. Normal skin turgor. No rashes. Extremities: left arm with normal inspection. anterior shoulder tenderness, mid humerus tenderness, with significant adipose tissue, unable to palpate any deformity, pain with abduction, NV intact distally. normal hand graps, normal passive ROM of left elbow. no clavicular tenderness Neuro: Oriented X 3. No motor deficit. No sensory deficit. Course Course Course Narrative: 65 yo female presenting with left shoulder and upper arm pain s/p mechanical fall early this morning. No obvious deformity. Will get XR of shoulder and humerus. PO motrin ordered. Reevaluation(s) Reevaluation #1: XR showing anterior shoulder dislocation w/ humeral head and glenoid fractures. XR photos sent to [facility] from Ortho - recommended reduction in the ER and f/u in the office in 1 week. Reevaluation #2: Shoulder reduction attempted while patient prone with successful reduction however upon placing the patient back in supine positioning shoulder may have dislocated again. Portable XR pending. May need to consciously sedate if remains dislocated. Reevaluation #3: Patient required conscious sedation for shoudler reduction with Dr. Gagnon - given total of 120 mg propofol with adequate analgesia, RT at bedside with close cardiopulmonary monitoring. After multiple attempts shoulder was successfully reduces and immbolized in a sling and swath. Montiored closely after the procedure. She tolerated it well. She uses a rollator at baseline and will be diffucut to ambulate and perform ADL's in a sling. Spoke with telephonic case manager, will get PT consult for further evaluation. custodial employee at bedside and agrees with plan. Additional Reevaluation(s): Patient seen and evaluated by PT. Recommending STR. CM aware. She is a [facility] patient will require overnight stay in the ED to find appropriate placement. Physician observation started at 4:15 pm. Placed in observation as she is awaiting placement to STR. She is vitally stable and mental status is at her baseline. Lungs are clear with RRR. Pain control ordered with around the clock Tylenol and PRN Motrin. Will continue to monitor. Consultations Consultation #1: Orthopedics - Hoda Box PA-C Consultation #2: Case management Consultation #3: Physical therapy Procedures Orthopedic Joint Reduction Joint #1: Time Out Performed: Yes Side: left Joint Reduction Location: shoulder Analgesia: procedural sedation (propofol) Shoulder Technique Used (if applicable): scapula manipulation Technique used: traction/counter-traction Post-reduction neuro exam: intact Post-reduction vascular: no change Post Reduction X-Ray Obtained: Yes Post Reduction X-Ray Results: reduced Splint Applied: Yes Patient Tolerated Procedure: well Additional Comments: patient had successful joint reduction x2 with repeated dislocation, after 3rd traction attempt joint was reduced stabilized with sling and swathe - XR showed reduction. Ortho made aware of recurrent dislocations and difficulty - they are recommending sling and swath and f/u in the office in 1 week. Critical Care Time Critical Care Time Critical Care Time: Yes Total Critical Care Time: 45 Attestation: I attest to critical care time spent caring for this patient who required procedural sedation for joint reduction and close monitoring of her cardiopulmonary status. Discharge Plan Discharge Clinical Impression: Anterior shoulder dislocation Qualifiers: Encounter type: initial encounter Laterality: left Qualified Code(s): S43.015A - Anterior dislocation of left humerus, initial encounter Closed fracture of greater tuberosity of humerus Qualifiers: Encounter type: initial encounter Fracture alignment: nondisplaced Laterality: left Qualified Code(s): S42.255A - Nondisplaced fracture of greater tuberosity of left humerus, initial encounter for closed fracture Glenoid fracture of shoulder Qualifiers: Encounter type: initial encounter Fracture type: closed Laterality: left Qualified Code(s): S42.142A - Displaced fracture of glenoid cavity of scapula, left shoulder, initial encounter for closed fracture Patient Disposition: er [facility] Instructions: Shoulder Dislocation (ED), Shoulder Immobilizer (ED) Additional Instructions: Your shoulder x-rays in the ER showed it was out of place, along with 2 small fractures within the joint. Your shoulder was put back into place under moderate sedation. Keep your shoulder immobilized with the sling and swathe. Do not use your left arm. You are at risk of re-dislocating your shoulder if you use your arm. If you have worsening pain or concern for recurrent dislocation come back to the ER for further evaluation. Recommend Tylenol 975 mg every 6 hours for pain. Do not exceed 4,000 in a 24 hour period. Recommend Motrin 600 mg every 6 hours as needed for pain. Follow up with the Orthopedic doctors in the office in 1 week. Prescriptions: No Action cefuroxime axetil 500 mg tablet 500 mg PO BID Qty: 14 RF: 0 Referrals: Hue Valdovinos MD [Physician] - 1 week (left anterior shoulder dislocation w/ greater tuberosity and glenoid fractures )
[2021-01-05] MEDS: Ibuprofen 600 MG TABLET PO ×2 (10:59→17:33)
--- NOTE | 2021-01-05 11:25 | PC.NURSE ---
PAYTON SALDANA VIEWED XRAY FILMS, AWAITING RETURN CALL FROM [facility] RE: POC
[2021-01-05] MEDS: propofoL 200 MG/20 ML VIAL 40 MG IVPUSH (13:06)
--- NOTE | 2021-01-05 13:14 | PC.NURSE ---
tolerated reduction well, sr on monitor, skin wpd, shoulder back in confirmed w xray, pt currently sleeping,staff at bedside
[2021-01-05] MEDS: propofoL 200 MG/20 ML VIAL 80 MG IVPUSH (13:18)
--- NOTE | 2021-01-05 14:08 | PC.NURSE ---
PT eval currently. Skin pwd. palpable radial pulse left wrist. Pt requesting food, is axox3.
--- NOTE | 2021-01-05 15:22 | MHC.CM.ED ---
Addendum entered by Chasidy Sloan 01/05/21 15:27: [facility]. Found to have a dislocated shoulder and humerus fx. Physical thereapy eval completed. Short term rehab is recommended. Patient is active with [facility]. PASRR screen submitted to JULISSA via email. Original Note: Received telephone call from Patricia COSTA. She can be reached via telephone at [phone]. Patricia will like to know which facility patient discharges to and requests copy of health summary be provided to JULISSA Cardona plumbing warehouse helper when patient is discharged. Spoke with patient's friend/HCP, Isi via telephone at [phone]. List of jail facilities provided to Isi via email from [facility]. She will have 2 choices. Continue to monitor for d/c needs.
--- NOTE | 2021-01-05 15:52 | MHC.CM.ED ---
Received telephone call from ARAM Powell. Facility choices: 1) [facility] 2)[facility] 3) [facility]. Referrals made via [employer]. [employer] to monitor for d/c needs.
[2021-01-05] MEDS: Acetaminophen 325 MG TABLET 975 MG PO ×2 (17:08→21:50)
[2021-01-05 18:21] LABS: COVID-19 Test Negative (Negative)
--- NOTE | 2021-01-05 20:10 | PC.NURSE ---
PT RESTING IN STRETCHER WITH CORRECTION STAFF AT BEDSIDE. PT DENIES ANY COMPLAINTS. PT IN NAD.
--- NOTE | 2021-01-05 22:02 | PC.NURSE ---
PT SLEEPING, WAKES TO VOICE. PT IN NAD. SENIOR CARE STAFF LEFT.
[2021-01-06] VITALS: BP 128/69; PULSE 81; RESP 18; TEMP 36.7; O2SAT 97
[2021-01-06] MEDS: Morphine Sulfate 2 MG/ML CARTRIDGE IVPUSH ×2 (01:25→04:10)
--- NOTE | 2021-01-06 01:32 | PC.NURSE ---
PT C/O PAIN AND MEDICATED FOR PAIN PER EMAR.
[2021-01-06 02:00] VITALS: BP 135/68; PULSE 78; RESP 18; TEMP 36.5; O2SAT 97
[2021-01-06 05:18] VITALS: BP 146/73; PULSE 82; RESP 16; TEMP 36.7; O2SAT 97
--- NOTE | 2021-01-06 08:27 | MHC.CM.ED ---
Patient remains in ER. [facility] is first choice. They are able to offer a bed once exemption letter is obtained from [facility]. Left voicemail for [facility] inquiring about status of letter. Patient received 2 Moderna vaccines. First was 2/3. Second was 3/3. Continue to monitor for d/c needs.
[2021-01-06] MEDS: Ibuprofen 600 MG TABLET PO (10:27)
--- NOTE | 2021-01-06 13:48 | MHC.CM.ED ---
Received telephone call from Rafi. Exemption letter should be available around 3pm. [facility] aware. Continue to monitor for d/c needs.
== END 2021-01-06 16:02 | disposition skilled nursing facility (03) ==
PROVIDERS: Physician Assistant; Emergency Provider Emergency Medicine; PCP Internal Medicine
DX: S43.005A Unspecified dislocation of left shoulder joint, initial encounter (principal); M79.602 Pain in left arm; W01.0XXA Fall on same level from slipping, tripping and stumbling without subsequent striking against object, initial encounter; Y93.9 Activity, unspecified; Y92.009 Unspecified place in unspecified non-institutional (private) residence as the place of occurrence of the external cause; Y99.9 Unspecified external cause status; Z20.822 Contact with and (suspected) exposure to COVID-19
CPT/HCPCS: 23675; 36415; 73020; 73030; 73060; 87635; 96374; 96376; 97162; 99284; J2270

== ENCOUNTER 2021-01-21 11:06 | Outpatient (REF) | payer MEDICARE, MEDICAID, SELFPAY ==
--- NOTE | ~2021-01-21 | XR_ITS ---
EXAMINATION: XR SHOULDER, LEFT CLINICAL INFORMATION: Left shoulder pain COMPARISON: Multiple prior radiographs 01/05/2021 TECHNIQUE: Two views of the left shoulder. FINDINGS: Humeral head articulates with the glenoid. There is mild inferior subluxation of the humeral head with respect to glenoid. Previously demonstrated fracture of the humeral head is not well visualized on the current radiograph with some sclerosis projected over the lateral aspect of the humeral head. Previously seen glenoid fractures are also not well visualized with some ill-defined lucency and sclerosis projected over the glenoid fossa. Small density along the inferior aspect of the joint, may reflect a loose body. Mild acromioclavicular arthritis. XR/XR shoulder LT min 2V IMPRESSION: 1. Mild inferior subluxation of the humeral head with respect to glenoid. 2. The known humeral head and glenoid fractures are not well visualized on the current radiograph. Mixed lucency and sclerosis in the glenoid and areas of sclerosis overlying the humeral head. 3. Question loose body in the inferior joint space.
== END 2021-01-21 11:07 | disposition home or self-care (01) ==
LOC: HO.HOSX 11:06
PROVIDERS: PCP Internal Medicine; Visit Provider Physician Assistant
DX: M25.512 Pain in left shoulder (principal); S42.252A Displaced fracture of greater tuberosity of left humerus, initial encounter for closed fracture
CPT/HCPCS: 73030; 99202

== ENCOUNTER 2021-02-24 08:25 | Outpatient (REF) | payer MEDICARE, MEDICAID, SELFPAY ==
--- NOTE | ~2021-02-24 | XR_ITS ---
EXAMINATION: XR SHOULDER, LEFT CLINICAL INFORMATION: Left shoulder pain. COMPARISON: 01/21/2021 TECHNIQUE: 2 views of the left shoulder. FINDINGS: Compared to the prior study there has been not much interval change. Again noted is an ill-defined calcific density inferior to the glenohumeral joint probably representing a loose body. Previously seen fracture is not well identified. Degenerative changes are present with some glenoid sclerosis and osteophytes along with inferior humeral head osteophyte. I do not think that the shoulder appears significantly dislocated at this time. XR/XR shoulder LT min 2V IMPRESSION: Probable intra-articular loose body with degenerative changes, left shoulder. Fracture is not well seen.
== END 2021-02-24 08:26 | disposition home or self-care (01) ==
LOC: HO.HOSX 08:25
PROVIDERS: Visit Provider Physician Assistant
DX: S42.90XD Fracture of unspecified shoulder girdle, part unspecified, subsequent encounter for fracture with routine healing (principal); S42.252D Displaced fracture of greater tuberosity of left humerus, subsequent encounter for fracture with routine healing; M25.512 Pain in left shoulder
CPT/HCPCS: 73030; 99212

== ENCOUNTER 2021-07-15 07:36 | Outpatient (REF) | payer MEDICARE, MEDICAID, SELFPAY ==
[2021-07-15 11:29] LABS: MANUAL DIFF FLAG NO
[2021-07-15 11:42] LABS: Basophils Percent Auto 0.4 % (0-2); Eosinophils Absolute Auto 0.2 X10*3/uL (0.0-0.4); Hematocrit 42.9 % (37-47); Hemoglobin 13.6 g/dl (12.0-16.0); Imm Gran Abs Auto 0.02 X10*3/uL (0.00-0.03); Imm Gran Pct Auto 0.3 % (0.0-0.4); Lymphocytes Absolute Auto 1.6 X10*3/uL (1.2-4.9); Lymphocytes Percent Auto 21.7 % (20-40); Mean Corpuscular HGB Conc 31.7 g/dl (31.0-35.0); Mean Corpuscular Hemoglobin 28.5 pg (27.0-33.0); Mean Corpuscular Volume 89.7 fL (80-98); Mean Platelet Volume 10.1 fL (9.4-12.3); Monocytes Absolute Auto 0.6 X10*3/uL (0.1-1.2); Monocytes Percent Auto 7.6 % (2-11); Neutrophils Absolute Auto 5.1 X10*3/uL (2.0-8.3); Platelet Count 300 X10*3/uL (160-400); Red Blood Count 4.78 X10*6/uL (4.20-5.50); Red Cell Distribution Width 13.2 % (11.0-16.0); White Blood Count 7.5 X10*3/uL (4.8-10.8)
[2021-07-15 11:52] LABS: Alanine Aminotransferase 18 U/L (0-31); Alkaline Phosphatase 142 U/L (39-117); Anion Gap 13 (12-20); Aspartate Amino Transferase 18 U/L (5-31); Bilirubin Total 0.6 mg/dL (0.0-1.0); Blood Urea Nitrogen 18 mg/dL (9-16); Calcium 9.4 mg/dL (8.4-10.2); Carbon Dioxide 30 mmol/L (22-29); Chloride 102 mmol/L (96-108); Cholesterol 217 mg/dL; Estimated Glomerular Filt Rate > 60; Glucose Fasting 76 mg/dL (60-99); HDL Cholesterol 52 mg/dL; LDL Cholesterol Calculated 148 mg/dl; Sodium 141 mmol/L (135-145); Total Protein 7.3 g/dL (6.5-8.0); Triglycerides 86 mg/dL
[2021-07-15 12:00] LABS: Valproate < 2.0 mcg/mL (50.0-100.0)
== END 2021-07-15 07:37 | disposition home or self-care (01) ==
LOC: HO.HMGCLDS 07:36
PROVIDERS: PCP Internal Medicine; Visit Provider Internal Medicine
DX: G40.909 Epilepsy, unspecified, not intractable, without status epilepticus (principal); N32.81 Overactive bladder; Z85.038 Personal history of other malignant neoplasm of large intestine
CPT/HCPCS: 36415; 80053; 80061; 80164; 85025

== ENCOUNTER 2021-10-25 09:47 | Outpatient (REF) | payer MEDICARE, MEDICAID, SELFPAY ==
--- NOTE | ~2021-10-25 | MM_ITS ---
EXAMINATION: MM SCREENING DIGITAL BREAST TOMOSYNTHESIS, BILATERAL CLINICAL INFORMATION: Screening. Asymptomatic. The lifetime risk of breast cancer based on the Tyrer-Cuzick Model is 6%. COMPARISON: Mammography: 10/19/2020, 02/16/2019, 10/25/2016 TECHNIQUE: Digital breast tomosynthesis is performed in both the craniocaudal and mediolateral oblique views along with computer-aided detection (CAD). Synthesized 2D images are generated from the tomosynthesis. FINDINGS: The breasts are almost entirely fatty (ACR BI-RADS breast composition Category a). There are no significant masses, abnormal calcifications, or other abnormalities. Background stromal and fibroglandular densities are stable no developing density. No significant changes. MM/MM tomosynthesis screening BI IMPRESSION: No mammographic evidence of malignancy. ASSESSMENT: BI-RADS 1: Negative RECOMMENDATION: Routine annual mammography screening. This patient's information was entered into a reminder system with a target due date for their next mammogram.
== END 2021-10-25 09:48 | disposition home or self-care (01) ==
LOC: HO.MAMMO 09:47
PROVIDERS: PCP Internal Medicine; Visit Provider Internal Medicine
DX: Z12.31 Encounter for screening mammogram for malignant neoplasm of breast (principal)
CPT/HCPCS: 77063; 77067

== ENCOUNTER 2021-11-05 13:43 | Outpatient (REF) | payer MEDICARE, MEDICAID, SELFPAY ==
[2021-11-05 15:14] LABS: Appearance Urine CLOUDY; Color Urine YELLOW; Glucose Urine UA NEG (NEG); Leukocyte Esterase Urine 2+ (NEG); Nitrite Urine NEG (NEG); UACC Culture Trigger YES; Urine Blood TRACE (NEG); Urine Ketones NEG (NEG); Urine Protein NEG (NEG-TRACE)
[2021-11-05 15:33] LABS: Bacteria Urine 4+ /LPF; Squamous Epithelial Cell Urine 1+ /LPF; WBC Urine 30-49 /HPF (0-4)
[2021-11-05 15:34] LABS: Mucus Urine 3+ /LPF; WBC Clumps Urine NOTED
== END 2021-11-05 13:44 | disposition home or self-care (01) ==
LOC: HO.LAB 13:43
PROVIDERS: PCP Internal Medicine; Visit Provider Internal Medicine
DX: R41.0 Disorientation, unspecified (principal)
CPT/HCPCS: 81001; 87086; 87088; 87186

== ENCOUNTER 2022-03-22 11:39 | Outpatient (REF) | payer MEDICARE, MEDICAID, SELFPAY ==
[2022-03-22 13:31] LABS: MANUAL DIFF FLAG NO
[2022-03-22 13:40] LABS: Basophils Percent Auto 0.5 % (0-2); Eosinophils Absolute Auto 0.1 X10*3/uL (0.0-0.4); Eosinophils Percent Auto 1.5 % (0-4); Hematocrit 41.2 % (37.0-47.0); Hemoglobin 13.2 g/dl (12.0-16.0); Imm Gran Abs Auto 0.01 X10*3/uL (0.00-0.03); Imm Gran Pct Auto 0.2 % (0.0-0.4); Lymphocytes Percent Auto 32.2 % (20-40); Mean Corpuscular Hemoglobin 28.6 pg (27.0-33.0); Mean Corpuscular Volume 89.2 fL (80.0-98.0); Mean Platelet Volume 9.9 fL (9.4-12.3); Monocytes Absolute Auto 0.6 X10*3/uL (0.1-1.2); Monocytes Percent Auto 9.1 % (2-11); Neutrophils Absolute Auto 3.4 x10*3/uL (2.0-8.3); Neutrophils Percent Auto 56.5 % (45-73); Platelet Count 254 X10*3/uL (160-400); Red Blood Count 4.62 X10*6/uL (4.20-5.50); Red Cell Distribution Width 12.5 % (11.0-16.0); White Blood Count 6.1 X10*3/uL (4.8-10.8)
[2022-03-22 14:13] LABS: Alanine Aminotransferase 15 U/L (0-31); Albumin Level 4.1 g/dL (3.5-5.0); Alkaline Phosphatase 133 U/L (39-117); Anion Gap 12 (12-20); Aspartate Amino Transferase 19 U/L (5-31); Bilirubin Total < 0.2 mg/dL (0.0-1.0); Blood Urea Nitrogen 14 mg/dL (9-16); Calcium 9.4 mg/dL (8.4-10.2); Carbon Dioxide 29 mmol/L (22-29); Chloride 99 mmol/L (96-108); Estimated Glomerular Filt Rate > 60; Glucose Random 73 mg/dL (60-115); Iron 89 mcg/dL (30-160); Percent Iron Saturation 35 % (15-50); Potassium 4.1 mmol/L (3.3-5.1); Sodium 136 mmol/L (135-145); Total Iron Binding Capacity 254 mcg/dL (228-428); Total Protein 6.9 g/dL (6.5-8.0); Unsaturated Iron Binding 165 ug/dL
[2022-03-23 10:00] LABS: Appearance Urine HAZY; Color Urine YELLOW; Glucose Urine UA NEG (NEG); Leukocyte Esterase Urine 1+ (NEG); Nitrite Urine NEG (NEG); Urine Blood 1+ (NEG); Urine Ketones NEG (NEG); Urine Protein NEG (NEG-TRACE)
[2022-03-23 11:03] LABS: Bacteria Urine 2+ /LPF; Squamous Epithelial Cell Urine TRACE /LPF
== END 2022-03-22 11:40 | disposition home or self-care (01) ==
LOC: HO.10HDL 11:39
PROVIDERS: Visit Provider Internal Medicine
DX: N93.9 Abnormal uterine and vaginal bleeding, unspecified (principal); G40.909 Epilepsy, unspecified, not intractable, without status epilepticus
CPT/HCPCS: 36415; 80053; 81001; 81003; 83540; 85025; 87086

== ENCOUNTER 2022-07-06 11:07 | Outpatient (REF) | payer MEDICARE, MEDICAID, SELFPAY ==
--- NOTE | ~2022-07-06 | US_ITS ---
EXAMINATION: US PELVIS CLINICAL INFORMATION: Bleeding. COMPARISON: Previous CT of the abdomen and pelvis August 2020 and pelvic ultrasound November 2012. TECHNIQUE: Transabdominal pelvic ultrasound. Patient declined transvaginal exam. FINDINGS: The uterus is anteverted and measures 6.3 x 1.6 x 2.5 cm. No focal uterine lesion is seen. Endometrial thickness is normal measuring 0.2 cm. The right ovary is not seen. The left ovary measures 1.6 x 1.5 x 2 cm. There may be a small 1.3 x 1.2 x 1.1 cm left ovarian cyst. There is no fluid in the pelvis. US/US pelvic complete IMPRESSION: Limited exam. Normal-appearing uterus. Right ovary not seen. Question small left ovarian cyst measuring 1.2 cm.
== END 2022-07-06 11:08 | disposition home or self-care (01) ==
LOC: HO.US 11:07
PROVIDERS: Visit Provider Internal Medicine
DX: N93.9 Abnormal uterine and vaginal bleeding, unspecified (principal)
CPT/HCPCS: 76856

== ENCOUNTER 2022-07-11 10:28 | Emergency (ER) | payer MEDICARE, MEDICAID, SELFPAY ==
--- NOTE | ~2022-07-11 | CT_ITS ---
EXAMINATION: CT HEAD WITHOUT CONTRAST CLINICAL INFORMATION: Post fall. COMPARISON: CT head dated from 12/17/2018. TECHNIQUE: Contiguous axial imaging was performed from the skull base to vertex without intravenous administration of contrast. This CT examination was performed using dose optimization techniques as appropriate, variously including the following: *Automated exposure control *Adjustment of mA and/or kV according to patient size (this includes techniques or standardized protocols for targeted exams where dose is matched to indication/reason for exam; i.e. extremities or head) *Use of iterative reconstruction technique DLP: 673 mGy-cm FINDINGS: There is no evidence of acute intracranial hemorrhage or edematous territorial infarction. A few foci of hypoattenuation in the periventricular and deep white matter are consistent with mild microangiopathy. [place]nelas-white matter differentiation is preserved. The ventricles are normal in size and configuration. No evidence for obstructive hydrocephalus. No abnormal mass effect or midline shift. No extra-axial fluid collections. No acute soft tissue or osseous abnormalities. The mastoid air cells and paranasal sinuses are clear. CT/CT head/brain wo IV con IMPRESSION: No evidence of acute intracranial hemorrhage or edematous territorial infarction.
[2022-07-11 10:36] VITALS: BP 137/60; PULSE 89; RESP 16; TEMP 35.9; O2SAT 96; BMI 29.2
[2022-07-11 12:27] LABS: MANUAL DIFF FLAG NO
[2022-07-11 12:28] LABS: Basophils Percent Auto 0.3 % (0-2); Eosinophils Absolute Auto 0.1 X10*3/uL (0.0-0.4); Hematocrit 36.3 % (37.0-47.0); Hemoglobin 12.1 g/dl (12.0-16.0); Imm Gran Abs Auto 0.03 X10*3/uL (0.00-0.03); Imm Gran Pct Auto 0.3 % (0.0-0.4); Lymphocytes Absolute Auto 1.7 X10*3/uL (1.2-4.9); Lymphocytes Percent Auto 18.6 % (20-40); Mean Corpuscular HGB Conc 33.3 g/dl (31.0-35.0); Mean Corpuscular Hemoglobin 29.4 pg (27.0-33.0); Mean Corpuscular Volume 88.1 fL (80.0-98.0); Mean Platelet Volume 9.1 fL (9.4-12.3); Monocytes Absolute Auto 0.8 X10*3/uL (0.1-1.2); Monocytes Percent Auto 8.5 % (2-11); Neutrophils Absolute Auto 6.7 x10*3/uL (2.0-8.3); Neutrophils Percent Auto 71.3 % (45-73); Platelet Count 278 X10*3/uL (160-400); Red Blood Count 4.12 X10*6/uL (4.20-5.50); Red Cell Distribution Width 12.6 % (11.0-16.0); White Blood Count 9.3 X10*3/uL (4.8-10.8)
[2022-07-11 13:01] LABS: Anion Gap 15 (12-20); Blood Urea Nitrogen 15 mg/dL (9-16); Calcium 8.9 mg/dL (8.4-10.2); Carbon Dioxide 28 mmol/L (22-29); Chloride 99 mmol/L (96-108); Creatinine Clr Calc Pharmacy 80.8; Estimated Glomerular Filt Rate > 60; Glucose Random 81 mg/dL (60-115); Potassium 3.7 mmol/L (3.3-5.1); Sodium 138 mmol/L (135-145)
--- NOTE | 2022-07-11 20:14 | ED.AMS ---
HPI - Altered Mental Status General Chief Complaint: Altered Mental Status Stated Complaint: fall quest uti Time Seen by Provider: 07/11/22 20:11 Source: patient and other Mode of arrival: EMS Limitations: no limitations History of Present Illness HPI narrative: Patient appeared day and unwitnessed mechanical fall in the snf on 07/05/2022 injuring her left periorbital area for last 2 days patient has been having behavioral changes per protocol patient supposed to get CT scan but her PCP who saw her next day of the fall did not order any CT scan. Patient also do get UTIs frequently patient denies any complaint at this time no fever no chills no cough Related Data Home Medications Medication Instructions Recorded Confirmed acetaminophen 500 mg tablet 500 mg PO Q4H PRN pain/fever 01/05/21 01/05/21 aripiprazole 15 mg tablet 15 mg PO DAILY 01/05/21 01/05/21 aspirin 81 mg tablet,delayed 81 mg PO DAILY 01/05/21 01/05/21 release benztropine 0.5 mg tablet 0.5 tab PO BEDTIME 01/05/21 01/05/21 carbamazepine 200 mg tablet 200 mg PO DAILY 01/05/21 01/05/21 carbamazepine 200 mg tablet 400 mg PO BEDTIME 01/05/21 01/05/21 clotrimazole 1 % topical cream 1 appl topical BID 01/05/21 01/05/21 hydrochlorothiazide 25 mg tablet 25 mg PO DAILY 01/05/21 01/05/21 imipramine HCl 25 mg tablet 25 mg PO DAILY 01/05/21 01/05/21 imipramine HCl 25 mg tablet 75 mg PO BEDTIME 01/05/21 01/05/21 ipratropium 0.5 mg-albuterol 3 mg 3 ml inhalation BID PRN Shortness 01/05/21 01/05/21 (2.5 mg base)/3 mL nebulization Of Breath soln loratadine 10 mg tablet 10 mg PO DAILY 01/05/21 01/05/21 multivitamin 1 tab PO DAILY 01/05/21 01/05/21 nystatin 100,000 unit/gram topical 1 appl topical BID PRN Rash 01/05/21 01/05/21 powder polyethylene glycol 3350 17 17 g PO DAILY PRN Constipation 01/05/21 01/05/21 gram/dose oral powder solifenacin 5 mg tablet 5 mg PO DAILY 01/05/21 01/05/21 Previous Rx's Medication Instructions Recorded levofloxacin 500 mg tablet 500 mg PO DAILY 7 days #7 tabs 07/12/22 Allergies Allergy/AdvReac Type Severity Reaction Status Date / Time adhesive tape Allergy Intermediate SKIN Verified 01/21/21 11:17 REDNESS latex Allergy Intermediate SKIN RASH Verified 01/21/21 11:17 WITH TAPE Adhesive Tape Allergy Unknown Itching Uncoded 01/21/21 11:17 DUST Allergy Unknown ITCHY/WATERY Uncoded 01/21/21 11:17 EYES Dust and weeds Allergy Unknown stuffy nose Uncoded 01/21/21 11:17 Latex Gloves Allergy Unknown Itching Uncoded 01/21/21 11:17 seasonal Allergy Unknown Itching Uncoded 01/21/21 11:17 surgical paper tape Allergy Unknown rash Uncoded 01/21/21 11:17 Tide Allergy Unknown rash Uncoded 01/21/21 11:17 Review of Systems Review of Systems: Yes all other systems are reviewed and are negative PMFSH Past Medical History Medical History Arthritis Colon cancer Developmental delay, mild Lung mass Social History Social History Alcohol intake: never Advance Directives: No Current occupational status: disabled Current occupation: right handed Physical Exam ED Vital Signs: Vital Signs - 24 hr 07/11/22 10:36 07/11/22 20:26 07/11/22 22:21 Temperature 96.7 F L 98.2 F Pulse Rate 89 56 67 Respiratory Rate 16 20 16 Blood Pressure 137/60 121/65 120/87 Pulse Oximetry 96 99 97 Oxygen Delivery Method Room Air Room Air Room Air 07/12/22 00:00 Temperature Pulse Rate 68 Respiratory Rate 17 Blood Pressure 124/64 Pulse Oximetry 97 Oxygen Delivery Method Room Air BMI result Body Mass Index 29.2 Appearance: Alert. Oriented X3. No acute distress. Eyes: PERRLA, No Nystagmus bruising around the periorbital area EOMI ENT: Pharynx normal. Oral Mucosa moist Neck: Normal inspection. Neck supple. CVS: Normal heart rate and rhythm. Pulses normal. Respiratory: No respiratory distress. Equal air entry bilateral, no wheezing/rales/rhonchi Abdomen: Soft and nontender. Bowel sounds are present, no mass palpable, no CVA tenderness Skin: Skin warm and dry. Normal skin color. Normal skin turgor. Extremities: No lower extremity edema. No calf tenderness Neuro: Oriented X 3. No motor deficit. No sensory deficit.No cerebellar signs , cranial nerves II-XII intact MDM - Altered Mental Status MDM Narrative Medical decision making narrative: [address] scan of the head is negative urine shows wbc's will start patient on Levaquin patient had E coli in the past ESBL but sensitive to Levaquin, will start on levaquin Differential Diagnosis Differential diagnosis: Likely altered mental status Lab Data Attestation: I reviewed the patient's lab results. Result diagrams: 07/11/22 12:07/11/22 12: Labs: Lab Results 07/11/22 07/11/22 07/11/22 Range/Units 12:22 12:22 21:53 WBC 9.3 (4.8-10.8) X10*3/uL RBC 4.12 L (4.20-5.50) X10*6/uL Hgb 12.1 (12.0-16.0) g/dl Hct 36.3 L (37.0-47.0) % MCV 88.1 (80.0-98.0) fL MCH 29.4 (27.0-33.0) pg MCHC 33.3 (31.0-35.0) g/dl RDW 12.6 (11.0-16.0) % Plt Count 278 (160-400) X10*3/uL MPV 9.1 L (9.4-12.3) fL Immature Gran % (Auto) 0.3 (0.0-0.4) % Neut % (Auto) 71.3 (45-73) % Lymph % (Auto) 18.6 L (20-40) % [place] % (Auto) 8.5 (2-11) % Eos % (Auto) 1.0 (0-4) % Baso % (Auto) 0.3 (0-2) % Lymph # (Auto) 1.7 (1.2-4.9) X10*3/uL [place] # (Auto) 0.8 (0.1-1.2) X10*3/uL Eos # (Auto) 0.1 (0.0-0.4) X10*3/uL Baso # (Auto) 0.0 (0.0-0.2) X10*3/uL Abs Immat Gran (auto) 0.03 (0.00-0.03) X10*3/uL Absolute Neuts (auto) 6.7 (2.0-8.3) x10*3/uL Absolute Nucleated RBC 0.000 (0.0-0.012) X10*3/uL Nucleated RBC % (auto) 0.0 (0.0-0.2) /100WBC Sodium 138 (135-145) mmol/L Potassium 3.7 (3.3-5.1) mmol/L Chloride 99 (96-108) mmol/L Carbon Dioxide 28 (22-29) mmol/L Anion Gap 15 (12-20) BUN 15 (9-16) mg/dL Creatinine 0.63 (0.5-1.4) mg/dL Estim Creat Clear Calc 80.8 Estimated GFR > 60 Random Glucose 81 (60-115) mg/dL Calcium 8.9 (8.4-10.2) mg/dL Urine Color Urine Appearance Urine pH (5.0-9.0) Ur Specific [place] (1.005-1.025) Urine Protein (Neg-Trace) mg/dL Urine Glucose (UA) (Negative) mg/dL Urine Ketones (Negative) mg/dL Urine Blood (Negative) Urine Nitrite (Negative) Ur Leukocyte Esterase (Negative) Urine RBC (0-2) /HPF Urine WBC (0-5) /HPF Ur Squamous Epith Cells (0-2) /HPF Urine Bacteria (None Seen) Hyaline Casts (0-2) /LPF Carbamazepine (5.0-12.0) mcg/mL COVID-19 ([place]) Negative (Negative) COVID-19 Clin Com See Note 07/12/22 07/12/22 Range/Units 00:03 00:50 WBC (4.8-10.8) X10*3/uL RBC (4.20-5.50) X10*6/uL Hgb (12.0-16.0) g/dl Hct (37.0-47.0) % MCV (80.0-98.0) fL MCH (27.0-33.0) pg MCHC (31.0-35.0) g/dl RDW (11.0-16.0) % Plt Count (160-400) X10*3/uL MPV (9.4-12.3) fL Immature Gran % (Auto) (0.0-0.4) % Neut % (Auto) (45-73) % Lymph % (Auto) (20-40) % [place] % (Auto) (2-11) % Eos % (Auto) (0-4) % Baso % (Auto) (0-2) % Lymph # (Auto) (1.2-4.9) X10*3/uL [place] # (Auto) (0.1-1.2) X10*3/uL Eos # (Auto) (0.0-0.4) X10*3/uL Baso # (Auto) (0.0-0.2) X10*3/uL Abs Immat Gran (auto) (0.00-0.03) X10*3/uL Absolute Neuts (auto) (2.0-8.3) x10*3/uL Absolute Nucleated RBC (0.0-0.012) X10*3/uL Nucleated RBC % (auto) (0.0-0.2) /100WBC Sodium (135-145) mmol/L Potassium (3.3-5.1) mmol/L Chloride (96-108) mmol/L Carbon Dioxide (22-29) mmol/L Anion Gap (12-20) BUN (9-16) mg/dL Creatinine (0.5-1.4) mg/dL Estim Creat Clear Calc Estimated GFR Random Glucose (60-115) mg/dL Calcium (8.4-10.2) mg/dL Urine Color Yellow Urine Appearance Clear Urine pH 7.0 (5.0-9.0) Ur Specific [place] 1.010 (1.005-1.025) Urine Protein Negative (Neg-Trace) mg/dL Urine Glucose (UA) Negative (Negative) mg/dL Urine Ketones Negative (Negative) mg/dL Urine Blood Moderate (2+) H (Negative) Urine Nitrite Negative (Negative) Ur Leukocyte Esterase Moderate (2+) H (Negative) Urine RBC 6-10 H (0-2) /HPF Urine WBC 0-5 (0-5) /HPF Ur Squamous Epith Cells 11-20 (0-2) /HPF Urine Bacteria 1+ (None Seen) Hyaline Casts 0-2 (0-2) /LPF Carbamazepine 3.3 L* (5.0-12.0) mcg/mL COVID-19 ([place]) (Negative) COVID-19 Clin Com Discharge Plan Discharge Clinical Impression: UTI (urinary tract infection), Fall Patient Disposition: Home, Self-Care Instructions: Fall Prevention for Older Adults (ED), Urinary Tract Infection in Older Adults (ED) Additional Instructions: Drink plenty of fluids Antibiotics as advised Follow with PCP if not better Head CT scan is negative for anything acute Tegretol level is low which is supposed to be with this dosage Prescriptions: New levofloxacin 500 mg tablet 500 mg PO DAILY 7 Days Qty: 7 0RF No Action benztropine 0.5 mg tablet 0.5 tab PO BEDTIME carbamazepine 200 mg tablet 200 mg PO DAILY carbamazepine 200 mg tablet 400 mg PO BEDTIME imipramine HCl 25 mg tablet 25 mg PO DAILY imipramine HCl 25 mg tablet 75 mg PO BEDTIME aripiprazole 15 mg tablet 15 mg PO DAILY solifenacin 5 mg tablet 5 mg PO DAILY hydrochlorothiazide 25 mg tablet 25 mg PO DAILY multivitamin Tablet 1 tab PO DAILY ipratropium-albuterol 0.5 mg-3 mg(2.5 mg base)/3 mL Solution For Nebulization 3 ml INHALATION BID PRN (Reason: Shortness Of Breath) aspirin 81 mg Tablet,Delayed Release (Dr/Ec) 81 mg PO DAILY acetaminophen 500 mg Tablet 500 mg PO Q4H PRN (Reason: pain/fever) nystatin 100,000 unit/gram Powder 1 appl TOPICAL BID PRN (Reason: Rash) polyethylene glycol 3350 17 gram/dose Powder 17 g PO DAILY PRN (Reason: Constipation) clotrimazole 1 % Cream 1 appl TOPICAL BID Rx Instructions: apply under breast loratadine 10 mg Tablet 10 mg PO DAILY Interventions: ED Discharge Assessment Last Done: 07/12/22 01:53 Discharge Date/Time: 07/12/22 01:54
[2022-07-11 20:26] VITALS: BP 121/65; PULSE 56; RESP 20; TEMP 36.8; O2SAT 99
--- NOTE | 2022-07-11 20:57 | PC.NURSE ---
This nurse walked with pt to bathroom to attempt to urinate for urine sample. Pt ambulated well with walker. Pt was not able to urinate however, she did have a large bowel movement. Pt was provided with plenty of fluids, will re-attempt for urine sample later after pt has drank more fluids
[2022-07-11 22:21] VITALS: BP 120/87; PULSE 67; RESP 16; O2SAT 97
[2022-07-11 22:26] LABS: COVID-19 Test Negative (Negative)
[2022-07-12] VITALS: BP 124/64; PULSE 68; RESP 17; O2SAT 97
[2022-07-12 00:10] LABS: Appearance Urine Clear; Color Urine Yellow; Glucose Urine UA Negative (Negative); Leukocyte Esterase Urine Moderate (2+) (Negative); Nitrite Urine Negative (Negative); UMIC TRIGGER UACC YES; Urine Blood Moderate (2+) (Negative); Urine Ketones Negative (Negative); Urine Protein Negative (Neg-Trace)
[2022-07-12 01:09] LABS: Bacteria Urine 1+ (None Seen); Hyaline Casts Urine 0-2 /LPF (0-2); WBC Urine 0-5 /HPF (0-5)
[2022-07-12] MEDS: levoFLOXacin 500 MG TABLET PO (01:24)
[2022-07-12 01:37] LABS: Carbamazepine Tegretol 3.3 mcg/mL (5.0-12.0)
== END 2022-07-12 01:54 | disposition home or self-care (01) ==
PROVIDERS: Emergency Provider Internal Medicine; PCP Internal Medicine
DX: N39.0 Urinary tract infection, site not specified (principal); S00.12XA Contusion of left eyelid and periocular area, initial encounter; W19.XXXA Unspecified fall, initial encounter; Z20.822 Contact with and (suspected) exposure to COVID-19; Y93.89 Activity, other specified; Y92.049 Unspecified place in boarding-house as the place of occurrence of the external cause; Y99.9 Unspecified external cause status
CPT/HCPCS: 36415; 70450; 80048; 80156; 81001; 85025; 87635; 99284

== ENCOUNTER 2022-08-02 11:09 | Outpatient (REF) | payer MEDICARE, MEDICAID, SELFPAY ==
[2022-08-02 14:39] LABS: Anion Gap 14 (12-20); Blood Urea Nitrogen 12 mg/dL (9-16); Calcium 8.9 mg/dL (8.4-10.2); Carbon Dioxide 29 mmol/L (22-29); Chloride 99 mmol/L (96-108); Estimated Glomerular Filt Rate > 60; Glucose Random 84 mg/dL (60-115); Sodium 138 mmol/L (135-145)
[2022-08-02 14:50] LABS: Free T4 (Free Thyroxine) 0.97 ng/dL (0.71-1.85); Thyroid Stimulating Hormone 0.02 uIU/mL (0.32-4.0)
[2022-08-03 12:22] LABS: Thyroid Peroxidase Antibodies 1 IU/mL (<9)
== END 2022-08-02 11:10 | disposition home or self-care (01) ==
LOC: HO.10HDL 11:09
PROVIDERS: Visit Provider Internal Medicine
DX: E03.9 Hypothyroidism, unspecified (principal); I10 Essential (primary) hypertension
CPT/HCPCS: 36415; 80048; 84439; 84443; 86376

== ENCOUNTER 2022-08-12 11:08 | Outpatient (REF) | payer MEDICARE, MEDICAID, SELFPAY | END 2022-08-12 11:09 | disposition home or self-care (01) | LOC: HO.LAB 11:08 | PROVIDERS: Visit Provider Internal Medicine | DX: Z13.89 Encounter for screening for other disorder (principal) ==

== ENCOUNTER 2022-09-07 12:17 | Outpatient (REF) | payer MEDICARE, MEDICAID, SELFPAY ==
[2022-09-07 12:45] LABS: Appearance Urine Cloudy; Color Urine Yellow; Glucose Urine UA Negative (Negative); Leukocyte Esterase Urine Large (3+) (Negative); Nitrite Urine Positive (Negative); UMIC TRIGGER UACC YES; Urine Blood Moderate (2+) (Negative); Urine Ketones Negative (Negative); Urine Protein Negative (Neg-Trace)
[2022-09-07 13:05] LABS: UACC Culture Trigger YES; WBC Urine >50 /HPF (0-5)
[2022-09-07 13:06] LABS: Bacteria Urine 4+ (None Seen); Hyaline Casts Urine 0-2 /LPF (0-2)
[2022-09-07 13:07] LABS: Calcium Oxalate Crystals Urine Present
== END 2022-09-07 12:18 | disposition home or self-care (01) ==
LOC: HO.LNP 12:17
PROVIDERS: Visit Provider Internal Medicine
DX: R30.0 Dysuria (principal)
CPT/HCPCS: 81001; 87086

== ENCOUNTER 2022-09-27 14:10 | Outpatient (REF) | payer MEDICARE, MEDICAID, SELFPAY ==
--- NOTE | ~2022-09-27 | US_ITS ---
EXAMINATION: US THYROID CLINICAL INFORMATION: Abnormal results of thyroid function tests. COMPARISON: None. TECHNIQUE: Linear transducer grayscale and color Doppler examination with attention to the region of the thyroid. FINDINGS: SIZE: Measurements of the thyroid lobes and nodules are given in sagittal, anteroposterior and transverse dimensions respectively. Right Thyroid Lobe: 5.3 x 2.2 x 3.0 cm, volume 18.3 mL. Parenchyma: The gland echotexture is heterogeneous. Thyroid vascularity is increased. Left Thyroid Lobe: 4.4 x 2.5 x 1.5 cm, volume 8.6 mL. Parenchyma: The gland echotexture is heterogeneous. Thyroid vascularity is increased. Isthmus: 0.8 cm in maximum AP dimension. There are numerous small cysts and colloid cysts. Estimated total number of nodules greater than or equal to 1 cm: 2. News Intern nodules are described as follows: 1. Location: Right mid/lower pole. Size: 4.7 x 2.4 x 2.6 cm, volume 15.4 mL. Nodule characteristics: Composition: Solid/almost completely solid (2). Echogenicity: Isoechoic (1). Shape: Not taller than wide (0). Margins: Lobulated (2). Echogenic Foci: Macrocalcifications (1). Punctate echogenic foci (3). ACR TI-RADS total points: 9. ACR TI-RADS category: 5. 2. Location: Left lower pole. Size: 2.5 x 1.6 x 2.0 cm, volume 4.2 mL. Nodule characteristics: Composition: Mixed cystic and solid (1). Echogenicity: Hypoechoic (2). Shape: Not taller than wide (0). Margins: Ill-defined (0). Echogenic Foci: Punctate echogenic foci (3). ACR TI-RADS total points: 6. ACR TI-RADS category: 4. NODES: No lymphadenopathy is seen in the tissue surrounding the thyroid gland. US/US thyroid IMPRESSION: Enlarged right thyroid lobe with multiple simple cysts and colloid cysts. There are large suspicious nodules right lobe with high TI-RADS category. Consider ultrasound-guided biopsy. ACR TI-RADS RECOMMENDATION REFERENCE: Ultrasound-guided fine-needle aspiration, followup ultrasound, no further follow up. * TR1 (0 point) and TR 2 (2 points): No FNA or follow up. * TR3 (3 points): FNA if more than or equal to 2.5 cm in maximum dimension, followup ultrasound in 1, 3 and 5 years if 1.5 to 2.4 cm in maximum dimension. * TR4 (4-6 points): FNA if more than or equal to 1.5 cm in maximum dimension, followup ultrasound in 1, 2, 3 and 5 years if 1 to 1.4 cm in maximum dimension. * TR5 (more than or equal to 7 points): FNA if more than or equal to 1 cm in maximum dimension, followup ultrasound every year for 5 years if 0.5 to 0.9 cm in maximum dimension. * TR3, TR4 or TR5 nodules that are below the size threshold for followup receive no follow up.
== END 2022-09-27 14:11 | disposition home or self-care (01) ==
LOC: HO.US 14:10
PROVIDERS: Visit Provider Internal Medicine
DX: R94.6 Abnormal results of thyroid function studies (principal)
CPT/HCPCS: 76536

== ENCOUNTER 2022-10-06 13:17 | Outpatient (REF) | payer MEDICARE, MEDICAID, SELFPAY ==
[2022-10-06 14:13] LABS: Appearance Urine Cloudy; Color Urine Yellow; Glucose Urine UA Negative (Negative); Leukocyte Esterase Urine Large (3+) (Negative); Nitrite Urine Positive (Negative); PH 6.5 (5.0-9.0); Specific Gravity - Urine 1.015 (1.005-1.025); UMIC TRIGGER UACC YES; Urine Blood Trace (Negative); Urine Ketones Negative (Negative); Urine Protein Negative (Neg-Trace)
[2022-10-06 14:16] LABS: Bacteria Urine 4+ (None Seen); Hyaline Casts Urine 0-2 /LPF (0-2); RBC Urine 0-2 /HPF (0-2); Squamous Epithelial Cell Urine 0-2 /HPF (0-2); UACC Culture Trigger YES; WBC Urine >50 /HPF (0-5)
== END 2022-10-06 13:18 | disposition home or self-care (01) ==
LOC: HO.HMGCLDS 13:17
PROVIDERS: Visit Provider Internal Medicine
DX: R30.0 Dysuria (principal)
CPT/HCPCS: 81001; 87086; 87088; 87186

== ENCOUNTER 2022-10-08 07:23 | Outpatient (REF) | payer MEDICARE, MEDICAID, SELFPAY ==
--- NOTE | ~2022-10-08 | XR_ITS ---
EXAMINATION: XR CHEST CLINICAL INFORMATION: Cough COMPARISON: Chest x-ray May 25, 2020 TECHNIQUE: 2 views of the chest were obtained. FINDINGS: Cardiac silhouette is normal in size. The lungs are well aerated. There is no lobar consolidation. No pleural effusion or pneumothorax. Moderate degenerative changes of the spine. XR/XR chest 2V IMPRESSION: No acute pulmonary pathology.
[2022-10-08 11:09] LABS: MANUAL DIFF FLAG NO
[2022-10-08 11:12] LABS: Basophils Percent Auto 0.7 % (0-2); Eosinophils Absolute Auto 0.1 X10*3/uL (0.0-0.4); Eosinophils Percent Auto 2.5 % (0-4); Hemoglobin 13.4 g/dl (12.0-16.0); Imm Gran Abs Auto 0.02 X10*3/uL (0.00-0.03); Imm Gran Pct Auto 0.4 % (0.0-0.4); Lymphocytes Absolute Auto 1.5 X10*3/uL (1.2-4.9); Lymphocytes Percent Auto 26.4 % (20-40); Mean Corpuscular HGB Conc 31.9 g/dl (31.0-35.0); Mean Corpuscular Volume 90.9 fL (80.0-98.0); Mean Platelet Volume 10.4 fL (9.4-12.3); Monocytes Absolute Auto 0.4 X10*3/uL (0.1-1.2); Monocytes Percent Auto 7.8 % (2-11); Neutrophils Absolute Auto 3.4 x10*3/uL (2.0-8.3); Neutrophils Percent Auto 62.2 % (45-73); Platelet Count 282 X10*3/uL (160-400); Red Blood Count 4.62 X10*6/uL (4.20-5.50); Red Cell Distribution Width 12.5 % (11.0-16.0); White Blood Count 5.5 X10*3/uL (4.8-10.8)
[2022-10-08 11:19] LABS: Estimated Average Glucose 100 mg/dL; Hemoglobin A1c % 5.1 %
[2022-10-08 11:30] LABS: Alanine Aminotransferase 14 U/L (0-31); Alkaline Phosphatase 132 U/L (39-117); Anion Gap 11 (12-20); Aspartate Amino Transferase 20 U/L (5-31); Bilirubin Total 0.4 mg/dL (0.0-1.0); Blood Urea Nitrogen 12 mg/dL (9-16); C Reactive Protein 0.43 mg/dL (< or = 0.50); Calcium 9.5 mg/dL (8.4-10.2); Carbamazepine Tegretol 7.1 mcg/mL (5.0-12.0); Carbon Dioxide 30 mmol/L (22-29); Chloride 102 mmol/L (96-108); Cholesterol 204 mg/dL; Estimated Glomerular Filt Rate > 60; Glucose Fasting 71 mg/dL (60-99); HDL Cholesterol 65 mg/dL; Iron 74 mcg/dL (30-160); LDL Cholesterol Calculated 129 mg/dl; Percent Iron Saturation 31 % (15-50); Potassium 4.1 mmol/L (3.3-5.1); Sodium 139 mmol/L (135-145); Total Iron Binding Capacity 235 mcg/dL (228-428); Triglycerides 53 mg/dL; Unsaturated Iron Binding 161 ug/dL
[2022-10-08 11:49] LABS: Free T4 (Free Thyroxine) 0.86 ng/dL (0.71-1.85); Thyroid Stimulating Hormone 0.08 uIU/mL (0.32-4.0)
[2022-10-08 11:54] LABS: Vitamin B12 636 pg/mL (200-900)
== END 2022-10-08 07:24 | disposition home or self-care (01) ==
LOC: HO.HMGCLDS 07:23
PROVIDERS: PCP Internal Medicine; Visit Provider Internal Medicine
DX: Z00.00 Encounter for general adult medical examination without abnormal findings (principal); E03.9 Hypothyroidism, unspecified; R56.9 Unspecified convulsions; Z86.2 Personal history of diseases of the blood and blood-forming organs and certain disorders involving the immune mechanism
CPT/HCPCS: 36415; 71046; 80053; 80061; 80156; 82607; 83036; 83540; 84439; 84443; 85025; 86140

== ENCOUNTER → 2022-10-10 11:23 | Outpatient (BNVA) | payer MEDICARE, MEDICAID, SELFPAY | PROVIDERS: PCP Internal Medicine; Visit Provider Internal Medicine | DX: E04.2 Nontoxic multinodular goiter (principal); E05.90 Thyrotoxicosis, unspecified without thyrotoxic crisis or storm; E55.9 Vitamin D deficiency, unspecified | CPT/HCPCS: 99202 ==

== ENCOUNTER 2022-10-17 11:30 | Outpatient (REF) | payer MEDICARE, MEDICAID, SELFPAY ==
[2022-10-17 14:23] LABS: Albumin Level 3.7 g/dL (3.5-5.0); Phosphorus 3.6 mg/dL (2.7-4.5)
[2022-10-17 14:33] LABS: Free T4 (Free Thyroxine) 0.85 ng/dL (0.71-1.85); Vitamin D 25-OH Total 40.4 ng/mL (>30)
[2022-10-18 01:40] LABS: Triiodothyronine T3 Total 100 ng/dL (76-181)
[2022-10-18 04:59] LABS: Thyroglobulin Antibodies <1 IU/mL (< or = 1); Thyroid Peroxidase Antibodies 1 IU/mL (<9)
[2022-10-18 15:24] LABS: Calcium (PTHI) 8.9 mg/dL (8.6-10.4); PTHI 60 pg/mL (16-77)
[2022-10-20 20:24] LABS: Thyrotropin Receptor Antibody <1.00 IU/L (<=2.00)
[2022-10-22 15:43] LABS: Thyroid Stimulating Immunoglob <89 % baseline (<140)
== END 2022-10-17 11:31 | disposition home or self-care (01) ==
LOC: HO.HMGCLDS 11:30
PROVIDERS: PCP Internal Medicine; Visit Provider Internal Medicine
DX: E04.2 Nontoxic multinodular goiter (principal); E05.90 Thyrotoxicosis, unspecified without thyrotoxic crisis or storm; E55.9 Vitamin D deficiency, unspecified
CPT/HCPCS: 36415; 82040; 82306; 83520; 83970; 84100; 84439; 84443; 84445; 84480; 86376; 86800

== ENCOUNTER → 2022-10-20 10:32 | Outpatient (REF) | payer MEDICARE, MEDICAID, SELFPAY ==
--- NOTE | ~2022-10-20 | NM_ITS ---
EXAMINATION: NM THYROID UPTAKE AND SCAN CLINICAL INFORMATION: Thyrotoxicosis. Multinodular thyroid. COMPARISON: No previous radionuclide thyroid scan is available for comparison. Thyroid ultrasound dated 09/27/2022 is available for comparison. TECHNIQUE: Following the oral administration of 275 microcuries of I-123 sodium iodide, thyroid uptake was performed and expressed as a percentage of the administrated dose. Gamma scintillation camera images of the thyroid in the anterior and right and left anterior oblique views were obtained using a pinhole collimator following the administration of 10 mCi Tc-99m pertechnetate. EXAMINATION: FINDINGS: The uptake is 16.0% at 4 hours and 47.4% at 24 hours (Normal radioiodine uptake at 24 hours is 10% to 30%). The radioiodine uptake is moderately elevated. The radiopertechnetate thyroid scintigram shows the thyroid gland to be asymmetrical with the right lobe significantly larger than the left. There is heterogeneous distribution in both lobes. This is more pronounced on the left with a rounded focus of relatively decreased activity present in the upper pole and small rounded foci, probably at least 3 in the remainder the left lobe. In the right lobe there is a small focus of decreased activity medially in the mid pole but otherwise, although heterogeneous, no discrete focal abnormalities are present. 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 The significant elevation of the radioiodine uptake is more suggestive of Graves' disease. If clinically relevant, these could be distinguished by the presence or absence of thyroid stimulating immunoglobulins. The radioiodine uptake is moderately elevated.
== END ==
LOC: HO.NUCMED 10:32
PROVIDERS: PCP Internal Medicine; Visit Provider Internal Medicine
DX: E05.90 Thyrotoxicosis, unspecified without thyrotoxic crisis or storm (principal); E04.2 Nontoxic multinodular goiter
CPT/HCPCS: 78014; A9512; A9516

== ENCOUNTER 2022-10-26 13:18 | Outpatient (REF) | payer MEDICARE, MEDICAID, SELFPAY ==
[2022-10-27 09:50] LABS: Campylobacter Not Detected (Not Detect.); E. coli EAEC Not Detected (Not Detect.); E. coli EPEC Not Detected (Not Detect.); E. coli ETEC Not Detected (Not Detect.); E. coli STEC Not Detected (Not Detect.); Plesiomonas shigelloides Not Detected (Not Detect.); Salmonella Not Detected (Not Detect.); Vibrio Not Detected (Not Detect.); Vibrio Cholerae Not Detected (Not Detect.); Yersinia enterocolitica Not Detected (Not Detect.)
[2022-10-27 09:51] LABS: Adenovirus F 40/41 Not Detected (Not Detect.); Astrovirus Not Detected (Not Detect.); Cryptosporidium Not Detected (Not Detect.); Cyclospora cayetanensis Not Detected (Not Detect.); Entamoeba histolytica Not Detected (Not Detect.); Giardia lamblia Not Detected (Not Detect.); Norovirus GI/GII Not Detected (Not Detect.); Rotavirus A Not Detected (Not Detect.); Sapovirus Not Detected (Not Detect.); Shigella sp./EIEC Not Detected (Not Detect.)
== END 2022-10-26 13:19 | disposition home or self-care (01) ==
LOC: HO.HMGCLDS 13:18
PROVIDERS: PCP Internal Medicine; Visit Provider Internal Medicine
DX: R19.7 Diarrhea, unspecified (principal)
CPT/HCPCS: 87507

== ENCOUNTER 2022-11-01 09:03 | Outpatient (REF) | payer MEDICARE, MEDICAID, SELFPAY ==
--- NOTE | ~2022-11-01 | MM_ITS ---
EXAMINATION: MM SCREENING DIGITAL BREAST TOMOSYNTHESIS, BILATERAL CLINICAL INFORMATION: Screening. Asymptomatic. The lifetime risk of breast cancer based on the Tyrer-Cuzick Model is 5%. COMPARISON: Mammography: 10/25/2021, 10/19/2020, 02/16/2019 TECHNIQUE: Digital breast tomosynthesis is performed in both the craniocaudal and mediolateral oblique views along with computer-aided detection (CAD). Synthesized 2D images are generated from the tomosynthesis. Additional right exaggerated CC and left MLO views are provided. FINDINGS: The breasts are almost entirely fatty (ACR BI-RADS breast composition Category a). Background stromal markings are similar to prior studies. There is no interval mass or architectural abnormality or developing density. No abnormal calcifications. The axilla are unremarkable. MM/MM tomosynthesis screening BI IMPRESSION: No mammographic evidence of malignancy. ASSESSMENT: BI-RADS 1: Negative RECOMMENDATION: Routine annual mammography screening. This patient's information was entered into a reminder system with a target due date for their next mammogram.
== END 2022-11-01 09:04 | disposition home or self-care (01) ==
LOC: HO.MAMMO 09:03
PROVIDERS: PCP Internal Medicine; Visit Provider Internal Medicine
DX: Z12.31 Encounter for screening mammogram for malignant neoplasm of breast (principal)
CPT/HCPCS: 77063; 77067

== ENCOUNTER → 2022-11-07 13:23 | Outpatient (BNVA) | payer MEDICARE, MEDICAID, SELFPAY | PROVIDERS: PCP Internal Medicine; Visit Provider Internal Medicine | DX: Z13.89 Encounter for screening for other disorder (principal) ==

== ENCOUNTER → 2022-11-09 12:57 | Outpatient (BNVA) | payer MEDICARE, MEDICAID, SELFPAY | PROVIDERS: PCP Internal Medicine; Visit Provider Internal Medicine | DX: E05.20 Thyrotoxicosis with toxic multinodular goiter without thyrotoxic crisis or storm (principal); E55.9 Vitamin D deficiency, unspecified | CPT/HCPCS: 99212 ==

== ENCOUNTER 2022-12-01 14:51 | Outpatient (REF) | payer MEDICARE, MEDICAID, SELFPAY ==
[2022-12-02 17:44] LABS: Triiodothyronine T3 Total 77 ng/dL (76-181)
== END 2022-12-01 14:52 | disposition home or self-care (01) ==
LOC: HO.HMGCLDS 14:51
PROVIDERS: PCP Internal Medicine; Visit Provider Internal Medicine
DX: E05.20 Thyrotoxicosis with toxic multinodular goiter without thyrotoxic crisis or storm (principal)
CPT/HCPCS: 36415; 84439; 84443; 84480

== ENCOUNTER 2023-01-11 14:40 | Outpatient (REF) | payer MEDICARE, MEDICAID, SELFPAY ==
[2023-01-11 17:10] LABS: MANUAL DIFF FLAG NO
[2023-01-11 17:25] LABS: Basophils Percent Auto 0.6 % (0-2); Eosinophils Absolute Auto 0.1 X10*3/uL (0.0-0.4); Eosinophils Percent Auto 2.3 % (0-4); Hematocrit 37.9 % (37.0-47.0); Hemoglobin 12.6 g/dl (12.0-16.0); Imm Gran Abs Auto 0.01 X10*3/uL (0.00-0.03); Imm Gran Pct Auto 0.2 % (0.0-0.4); Lymphocytes Absolute Auto 2.3 X10*3/uL (1.2-4.9); Lymphocytes Percent Auto 37.4 % (20-40); Mean Corpuscular HGB Conc 33.2 g/dl (31.0-35.0); Mean Corpuscular Hemoglobin 29.2 pg (27.0-33.0); Mean Corpuscular Volume 87.7 fL (80.0-98.0); Mean Platelet Volume 9.6 fL (9.4-12.3); Monocytes Absolute Auto 0.5 X10*3/uL (0.1-1.2); Monocytes Percent Auto 8.5 % (2-11); Neutrophils Absolute Auto 3.2 x10*3/uL (2.0-8.3); Platelet Count 268 X10*3/uL (160-400); Red Blood Count 4.32 X10*6/uL (4.20-5.50); Red Cell Distribution Width 13.2 % (11.0-16.0); White Blood Count 6.2 X10*3/uL (4.8-10.8)
[2023-01-11 17:34] LABS: Alanine Aminotransferase 16 U/L (0-31); Albumin Level 3.9 g/dL (3.5-5.0); Alkaline Phosphatase 134 U/L (39-117); Anion Gap 12 (12-20); Aspartate Amino Transferase 18 U/L (5-31); Bilirubin Total 0.3 mg/dL (0.0-1.0); Blood Urea Nitrogen 17 mg/dL (9-16); C Reactive Protein 0.18 mg/dL (< or = 0.50); Calcium 9.1 mg/dL (8.4-10.2); Carbon Dioxide 30 mmol/L (22-29); Chloride 100 mmol/L (96-108); Estimated Glomerular Filt Rate > 60; Glucose Random 92 mg/dL (60-115); Potassium 4.1 mmol/L (3.3-5.1); Sodium 138 mmol/L (135-145); Total Protein 6.7 g/dL (6.5-8.0)
[2023-01-11 17:52] LABS: Carcinoembryonic Antigen < 1.73 ng/mL; Free T4 (Free Thyroxine) 0.75 ng/dL (0.71-1.85); Thyroid Stimulating Hormone 1.07 uIU/mL (0.32-4.0); Vitamin D 25-OH Total 52.4 ng/mL (>30)
== END 2023-01-11 14:41 | disposition home or self-care (01) ==
LOC: HO.HMGCLDS 14:40
PROVIDERS: PCP Internal Medicine; Visit Provider Internal Medicine
DX: E03.9 Hypothyroidism, unspecified (principal); I10 Essential (primary) hypertension; R63.4 Abnormal weight loss; K90.0 Celiac disease; Z85.038 Personal history of other malignant neoplasm of large intestine
CPT/HCPCS: 36415; 80053; 82306; 82378; 84439; 84443; 85025; 86140

== ENCOUNTER 2023-01-23 09:54 | Emergency (ER) | payer MEDICARE, MEDICAID, SELFPAY ==
[2023-01-23 10:04] VITALS: BP 120/80; BP 127/56; PULSE 71; PULSE 84; RESP 16; TEMP 37.1; O2SAT 100; O2SAT 97; BMI 26.8
--- NOTE | 2023-01-23 10:12 | ED_ITS ---
HPI - General Adult General Chief complaint: General Medical Stated complaint: CRISIS FROM [facility],WANT MRD CLEARANCE FOR ?UTI Time Seen by Provider: 01/23/23 09:59 Source: patient and EMS Mode of arrival: EMS Limitations: no limitations History of Present Illness HPI narrative: 67-year-old female presents with slight change in behavior. Patient is apparently a slightly more agitated than usual. Patient feels like she is being [place] around by staff at longterm. She denies any fevers, chills, cough, mucus production. She denies any nausea vomiting diarrhea. Appetite is appropriate. She is taking her medications. Mobile crisis was there to evaluate patient, they were concerned she might have a urinary tract infection. Staff is requesting medical clearance prior to returning back. My evaluation, patient denies any complaints at this time. She does not SI or HI. She denies any self-harming behaviors. She denies any acute complaints. Related Data Home Medications Medication Instructions Recorded Confirmed acetaminophen 500 mg tablet 500 mg PO Q4H PRN pain/fever 01/05/21 11/09/22 aripiprazole 15 mg tablet 15 mg PO DAILY 01/05/21 11/09/22 aspirin 81 mg tablet,delayed 81 mg PO DAILY 01/05/21 11/09/22 release benztropine 0.5 mg tablet 0.5 tab PO BEDTIME 01/05/21 11/09/22 carbamazepine 200 mg tablet 200 mg PO DAILY 01/05/21 11/09/22 carbamazepine 200 mg tablet 400 mg PO BEDTIME 01/05/21 11/09/22 clotrimazole 1 % topical cream 1 appl topical BID 01/05/21 11/09/22 hydrochlorothiazide 25 mg tablet 25 mg PO DAILY 01/05/21 11/09/22 ipratropium 0.5 mg-albuterol 3 mg 3 ml inhalation BID PRN Shortness 01/05/21 11/09/22 (2.5 mg base)/3 mL nebulization Of Breath soln loratadine 10 mg tablet 10 mg PO DAILY 01/05/21 11/09/22 multivitamin 1 tab PO DAILY 01/05/21 11/09/22 nystatin 100,000 unit/gram topical 1 appl topical BID PRN Rash 01/05/21 11/09/22 powder polyethylene glycol 3350 17 17 g PO DAILY PRN Constipation 01/05/21 11/09/22 gram/dose oral powder solifenacin 5 mg tablet 5 mg PO DAILY 01/05/21 11/09/22 imipramine HCl 25 mg tablet 100 mg PO BEDTIME 10/10/22 11/09/22 mirabegron 50 mg tablet,extended 50 mg PO DAILY 10/10/22 11/09/22 release 24 hr (Myrbetriq) melatonin 3 mg tablet 3 mg PO 11/07/22 11/09/22 Previous Rx's Medication Instructions Recorded methimazole 5 mg tablet 5 mg PO .daily in am 30 days #30 11/09/22 tabs cephalexin 500 mg capsule 500 mg PO BID #14 caps 01/23/23 Allergies Allergy/AdvReac Type Severity Reaction Status Date / Time adhesive tape Allergy Intermediate SKIN Verified 11/09/22 13:35 REDNESS latex Allergy Intermediate SKIN RASH Verified 11/09/22 13:35 WITH TAPE Adhesive Tape Allergy Unknown Itching Uncoded 11/09/22 13:35 DUST Allergy Unknown ITCHY/WATERY Uncoded 11/09/22 13:35 EYES Dust and weeds Allergy Unknown stuffy nose Uncoded 11/09/22 13:35 Latex Gloves Allergy Unknown Itching Uncoded 11/09/22 13:35 seasonal Allergy Unknown Itching Uncoded 11/09/22 13:35 surgical paper tape Allergy Unknown rash Uncoded 11/09/22 13:35 Tide Allergy Unknown rash Uncoded 11/09/22 13:35 PMFSH Past Medical History Medical History Arthritis Colon cancer Developmental delay, mild Hyperthyroidism Lung mass Multinodular thyroid Toxic multinodular goiter Vitamin D deficiency Surgical History Hx of colonic polyps Hx of colonoscopy Family History Family History Father No problems noted. Mother Medical history unknown Social History Social History Alcohol intake: never Advance Directives: Yes Advance Directives on File: Yes Advance Directives Date on File: 01/05/21 Current occupational status: disabled Current occupation: right handed Physical Exam ED Vital Signs: Vital Signs - 24 hr 01/23/23 10:04 Temperature 98.8 F Pulse Rate 71 Respiratory Rate 16 Blood Pressure 127/56 L Pulse Oximetry 97 Oxygen Delivery Method Room Air BMI result Body Mass Index 26.8 GEN: Well developed, no acute distress, alert, oriented HEENT: Normocephalic, atraumatic, normal external ears, nose appears normal, no oropharyngeal edema or exudates Eyes: Normal to appearance Neck: Supple, no lymphadenopathy Respiratory: Talks in complete sentences, no respiratory distress, clear to auscultation bilaterally Cardiovascular: Regular rate and rhythm, no murmurs rubs or gallops Abdomen: Soft, nontender, nondistended, no guarding, no rebound Back: No CVA tenderness Extremities: No clubbing cyanosis or edema Neurologic: No focal neurologic deficits, cranial nerves 2-12 intact, strength is 5/5 bilaterally Skin: No rash Course Course Course Narrative: 67-year-old female presents with change in behavior. Here, patient's, cooperative. She has no focal deficits. Her exam is benign. Will check routine laboratory testing and urine sample. If everything is okay, patient may be discharged home. Reevaluation(s) Reevaluation #1: patient with uti, will d.c Time: 11:32 Medications Administered Discontinued Medications Generic Name Dose Route Start Last Admin Trade Name Freq PRN Reason Stop Dose Admin Cephalexin HCl 500 mg 01/23/23 10:48 01/23/23 11:03 Cephalexin 500 Mg Capsule PO 01/23/23 10:49 500 mg ONCE ONE Administration Medical Decision Making Medical Decision Making [facility] Narrative: 59-year-old female presents with change in behavior. Examination is unremarkable. She offers no acute complaints previous, cooperative. Will rule out electrolyte abnormality, thyroid dysfunction, UTI. Differential Diagnosis Differential Diagnoses: The differential diagnosis associated with the presentation includes (UTI, glycemic issue, hyponatremia, electrolyte abnormality, depression, anxiety, mood disorder, personality disorder) Lab Data [facility] Lab Attestation statement: I reviewed the patient's lab results. 01/23/23 10:27 01/23/23 10:27 Labs: Lab Results 01/23/23 01/23/23 01/23/23 Range/Units 10:27 10:27 10:27 WBC 6.2 (4.8-10.8) X10*3/uL RBC 4.16 L (4.20-5.50) X10*6/uL Hgb 12.1 (12.0-16.0) g/dl Hct 36.8 L (37.0-47.0) % MCV 88.5 (80.0-98.0) fL MCH 29.1 (27.0-33.0) pg MCHC 32.9 (31.0-35.0) g/dl RDW 13.1 (11.0-16.0) % Plt Count 240 (160-400) X10*3/uL MPV 9.2 L (9.4-12.3) fL Immature Gran % (Auto) 0.2 (0.0-0.4) % Neut % (Auto) 68.0 (45-73) % Lymph % (Auto) 20.9 (20-40) % Braxton % (Auto) 9.4 (2-11) % Eos % (Auto) 1.0 (0-4) % Baso % (Auto) 0.5 (0-2) % Lymph # (Auto) 1.3 (1.2-4.9) X10*3/uL Braxton # (Auto) 0.6 (0.1-1.2) X10*3/uL Eos # (Auto) 0.1 (0.0-0.4) X10*3/uL Baso # (Auto) 0.0 (0.0-0.2) X10*3/uL Abs Immat Gran (auto) 0.01 (0.00-0.03) X10*3/uL Absolute Neuts (auto) 4.2 (2.0-8.3) x10*3/uL Absolute Nucleated RBC 0.000 (0.0-0.012) X10*3/uL Nucleated RBC % (auto) 0.0 (0.0-0.2) /100WBC Sodium 138 (135-145) mmol/L Potassium 4.0 (3.3-5.1) mmol/L Chloride 101 (96-108) mmol/L Carbon Dioxide 30 H (22-29) mmol/L Anion Gap 11 L (12-20) BUN 13 (9-16) mg/dL Creatinine 0.66 (0.5-1.4) mg/dL Estim Creat Clear Calc 73.0 Estimated GFR > 60 Random Glucose 97 (60-115) mg/dL Calcium 9.0 (8.4-10.2) mg/dL Total Bilirubin 0.5 (0.0-1.0) mg/dL AST 25 (5-31) U/L ALT 17 (0-31) U/L Alkaline Phosphatase 127 H (39-117) U/L Total Protein 6.7 (6.5-8.0) g/dL Albumin 3.9 (3.5-5.0) g/dL TSH 1.17 (0.32-4.0) uIU/mL Urine Color Urine Appearance Urine pH (5.0-9.0) Ur Specific [place] (1.005-1.025) Urine Protein (Neg-Trace) mg/dL Urine Glucose (UA) (Negative) mg/dL Urine Ketones (Negative) mg/dL Urine Blood (Negative) Urine Nitrite (Negative) Ur Leukocyte Esterase (Negative) Urine RBC (0-2) /HPF Urine WBC (0-5) /HPF Ur Squamous Epith Cells (0-2) /HPF Urine Bacteria (None Seen) Hyaline Casts (0-2) /LPF Urine Opiates Screen (Not Detect) Urine Fentanyl Screen (Not Detect) Ur Barbiturates Screen (Not Detect) Ur Phencyclidine Scrn (Not Detect) Ur Amphetamines Screen (Not Detect) U Benzodiazepines Scrn (Not Detect) Urine Cocaine Screen (Not Detect) U Marijuana (THC) Screen (Not Detect) 01/23/23 01/23/23 Range/Units 10:27 10:27 WBC (4.8-10.8) X10*3/uL RBC (4.20-5.50) X10*6/uL Hgb (12.0-16.0) g/dl Hct (37.0-47.0) % MCV (80.0-98.0) fL MCH (27.0-33.0) pg MCHC (31.0-35.0) g/dl RDW (11.0-16.0) % Plt Count (160-400) X10*3/uL MPV (9.4-12.3) fL Immature Gran % (Auto) (0.0-0.4) % Neut % (Auto) (45-73) % Lymph % (Auto) (20-40) % Braxton % (Auto) (2-11) % Eos % (Auto) (0-4) % Baso % (Auto) (0-2) % Lymph # (Auto) (1.2-4.9) X10*3/uL Braxton # (Auto) (0.1-1.2) X10*3/uL Eos # (Auto) (0.0-0.4) X10*3/uL Baso # (Auto) (0.0-0.2) X10*3/uL Abs Immat Gran (auto) (0.00-0.03) X10*3/uL Absolute Neuts (auto) (2.0-8.3) x10*3/uL Absolute Nucleated RBC (0.0-0.012) X10*3/uL Nucleated RBC % (auto) (0.0-0.2) /100WBC Sodium (135-145) mmol/L Potassium (3.3-5.1) mmol/L Chloride (96-108) mmol/L Carbon Dioxide (22-29) mmol/L Anion Gap (12-20) BUN (9-16) mg/dL Creatinine (0.5-1.4) mg/dL Estim Creat Clear Calc Estimated GFR Random Glucose (60-115) mg/dL Calcium (8.4-10.2) mg/dL Total Bilirubin (0.0-1.0) mg/dL AST (5-31) U/L ALT (0-31) U/L Alkaline Phosphatase (39-117) U/L Total Protein (6.5-8.0) g/dL Albumin (3.5-5.0) g/dL TSH (0.32-4.0) uIU/mL Urine Color Yellow Urine Appearance Clear Urine pH 7.0 (5.0-9.0) Ur Specific [place] 1.010 (1.005-1.025) Urine Protein Negative (Neg-Trace) mg/dL Urine Glucose (UA) Negative (Negative) mg/dL Urine Ketones Negative (Negative) mg/dL Urine Blood Trace H (Negative) Urine Nitrite Positive H (Negative) Ur Leukocyte Esterase Large (3+) H (Negative) Urine RBC 6-10 H (0-2) /HPF Urine WBC >50 H (0-5) /HPF Ur Squamous Epith Cells 3-5 (0-2) /HPF Urine Bacteria 4+ (None Seen) Hyaline Casts 0-2 (0-2) /LPF Urine Opiates Screen Not Detected (Not Detect) Urine Fentanyl Screen Not Detected (Not Detect) Ur Barbiturates Screen Not Detected (Not Detect) Ur Phencyclidine Scrn Not Detected (Not Detect) Ur Amphetamines Screen Not Detected (Not Detect) U Benzodiazepines Scrn Not Detected (Not Detect) Urine Cocaine Screen Not Detected (Not Detect) U Marijuana (THC) Screen Not Detected (Not Detect) Independent Historian Clinical information obtained from an independent historian. History obtained from or confirmed by: EMS Chronic Conditions Patient?s care impacted by: Other (thyoid) Discharge Plan Discharge Clinical Impression: Behavioral change, Acute UTI Patient Disposition: Home, Self-Care Instructions: Urinary Tract Infection in Older Adults (ED) Prescriptions: New cephalexin 500 mg capsule 500 mg PO BID Qty: 14 0RF No Action benztropine 0.5 mg tablet 0.5 tab PO BEDTIME carbamazepine 200 mg tablet 200 mg PO DAILY carbamazepine 200 mg tablet 400 mg PO BEDTIME aripiprazole 15 mg tablet 15 mg PO DAILY solifenacin 5 mg tablet 5 mg PO DAILY hydrochlorothiazide 25 mg tablet 25 mg PO DAILY multivitamin Tablet 1 tab PO DAILY ipratropium-albuterol 0.5 mg-3 mg(2.5 mg base)/3 mL Solution For Nebulization 3 ml INHALATION BID PRN (Reason: Shortness Of Breath) aspirin 81 mg Tablet,Delayed Release (Dr/Ec) 81 mg PO DAILY acetaminophen 500 mg Tablet 500 mg PO Q4H PRN (Reason: pain/fever) nystatin 100,000 unit/gram Powder 1 appl TOPICAL BID PRN (Reason: Rash) polyethylene glycol 3350 17 gram/dose Powder 17 g PO DAILY PRN (Reason: Constipation) clotrimazole 1 % Cream 1 appl TOPICAL BID Rx Instructions: apply under breast loratadine 10 mg Tablet 10 mg PO DAILY imipramine HCl 25 mg tablet 100 mg PO BEDTIME Myrbetriq 50 mg tablet extended release 24 hr 50 mg PO DAILY melatonin 3 mg tablet 3 mg PO methimazole 5 mg tablet 5 mg PO .daily in am 30 Days Qty: 30 6RF Referrals: Sher Patrick MD [Primary Care Provider] -
--- NOTE | 2023-01-23 10:30 | PC.NURSE ---
Funmilayo - rehabilitation program coordinator Patricia Mg behavioral problems, yelling, wanting to leave program. thyroid issue. behaviors associated with UTI in past. crisis saw in field - needs medical clearance then crisis. [facility] Betty to re-evaluate prior to return to prison. bit staff this am.
[2023-01-23 10:36] LABS: MANUAL DIFF FLAG NO
[2023-01-23 10:40] LABS: Appearance Urine Clear; Color Urine Yellow; Glucose Urine UA Negative (Negative); Leukocyte Esterase Urine Large (3+) (Negative); Nitrite Urine Positive (Negative); UMIC TRIGGER UACC YES; Urine Blood Trace (Negative); Urine Ketones Negative (Negative); Urine Protein Negative (Neg-Trace)
[2023-01-23 10:41] LABS: Basophils Percent Auto 0.5 % (0-2); Eosinophils Absolute Auto 0.1 X10*3/uL (0.0-0.4); Hematocrit 36.8 % (37.0-47.0); Hemoglobin 12.1 g/dl (12.0-16.0); Imm Gran Abs Auto 0.01 X10*3/uL (0.00-0.03); Imm Gran Pct Auto 0.2 % (0.0-0.4); Lymphocytes Absolute Auto 1.3 X10*3/uL (1.2-4.9); Lymphocytes Percent Auto 20.9 % (20-40); Mean Corpuscular HGB Conc 32.9 g/dl (31.0-35.0); Mean Corpuscular Hemoglobin 29.1 pg (27.0-33.0); Mean Corpuscular Volume 88.5 fL (80.0-98.0); Mean Platelet Volume 9.2 fL (9.4-12.3); Monocytes Absolute Auto 0.6 X10*3/uL (0.1-1.2); Monocytes Percent Auto 9.4 % (2-11); Neutrophils Absolute Auto 4.2 x10*3/uL (2.0-8.3); Platelet Count 240 X10*3/uL (160-400); Red Blood Count 4.16 X10*6/uL (4.20-5.50); Red Cell Distribution Width 13.1 % (11.0-16.0); White Blood Count 6.2 X10*3/uL (4.8-10.8)
[2023-01-23 10:42] LABS: Bacteria Urine 4+ (None Seen); Hyaline Casts Urine 0-2 /LPF (0-2); UACC Culture Trigger YES; WBC Urine >50 /HPF (0-5)
[2023-01-23] MEDS: cephALEXin 500 MG CAPSULE PO (11:03)
[2023-01-23 11:08] LABS: Alanine Aminotransferase 17 U/L (0-31); Albumin Level 3.9 g/dL (3.5-5.0); Alkaline Phosphatase 127 U/L (39-117); Anion Gap 11 (12-20); Aspartate Amino Transferase 25 U/L (5-31); Bilirubin Total 0.5 mg/dL (0.0-1.0); Blood Urea Nitrogen 13 mg/dL (9-16); Carbon Dioxide 30 mmol/L (22-29); Chloride 101 mmol/L (96-108); Estimated Glomerular Filt Rate > 60; Glucose Random 97 mg/dL (60-115); Sodium 138 mmol/L (135-145); Total Protein 6.7 g/dL (6.5-8.0)
[2023-01-23 11:23] LABS: TSH reflex Free T4 1.17 uIU/mL (0.32-4.0)
[2023-01-23 11:25] LABS: Amphetamine Screen Urine Not Detected (Not Detect); Barbiturates, Urine Not Detected (Not Detect); Benzodiazepines Screen Urine Not Detected (Not Detect); Cannabinoid Screen Urine Not Detected (Not Detect); Cocaine Screen Urine Not Detected (Not Detect); Fentanyl, urine Not Detected (Not Detect); Opiate Screen Urine Not Detected (Not Detect); Phencyclidine Screen Urine Not Detected (Not Detect)
== END 2023-01-23 12:59 | disposition home or self-care (01) ==
PROVIDERS: Emergency Provider Emergency Medicine; PCP Internal Medicine
DX: F91.9 Conduct disorder, unspecified (principal); N39.0 Urinary tract infection, site not specified; Z79.82 Long term (current) use of aspirin; Z79.899 Other long term (current) drug therapy
CPT/HCPCS: 36415; 80053; 80307; 81001; 84443; 85025; 87086; 99283

== ENCOUNTER 2023-01-24 08:12 | Emergency (ER) | payer MEDICARE, MEDICAID, SELFPAY ==
[2023-01-24 08:24] VITALS: BP 125/65; BP 132/76; PULSE 70; PULSE 81; RESP 18; TEMP 37.1; O2SAT 97; O2SAT 99; BMI 28.6
--- NOTE | 2023-01-24 08:29 | ED.GENADULT ---
HPI - General Adult General Chief complaint: General Medical Stated complaint: CONFUSION,RECENT DX OF UTI,FROM [facility] Time Seen by Provider: 01/24/23 08:22 Source: patient Mode of arrival: EMS History of Present Illness HPI narrative: 67-year-old female who was evaluated here yesterday and found to have a UTI and discharged back to the correction is now brought in by EMS after patient left the correction with her walker and was found to be crossing the road on the backside of [facility]. Patient denies any complaints other than she wanted to come back here and states that she was leaving the correction because they will let her go shopping. She otherwise denies any SI, HI, shortness of breath, chest pain/palpitations, GI or symptoms. Related Data Home Medications Medication Instructions Recorded Confirmed acetaminophen 500 mg tablet 500 mg PO Q4H PRN pain/fever 01/05/21 01/24/23 aripiprazole 15 mg tablet 15 mg PO DAILY 01/05/21 01/24/23 aspirin 81 mg tablet,delayed 81 mg PO DAILY 01/05/21 01/24/23 release benztropine 0.5 mg tablet 0.5 tab PO BEDTIME 01/05/21 01/24/23 carbamazepine 200 mg tablet 200 mg PO DAILY 01/05/21 01/24/23 carbamazepine 200 mg tablet 400 mg PO BEDTIME 01/05/21 01/24/23 clotrimazole 1 % topical cream 1 appl topical BID 01/05/21 01/24/23 hydrochlorothiazide 25 mg tablet 25 mg PO DAILY 01/05/21 01/24/23 loratadine 10 mg tablet 10 mg PO DAILY 01/05/21 01/24/23 multivitamin 1 tab PO DAILY 01/05/21 01/24/23 nystatin 100,000 unit/gram topical 1 appl topical BID PRN Rash 01/05/21 01/24/23 powder polyethylene glycol 3350 17 17 g PO DAILY PRN Constipation 01/05/21 01/24/23 gram/dose oral powder imipramine HCl 25 mg tablet 100 mg PO BEDTIME 10/10/22 01/24/23 mirabegron 50 mg tablet,extended 50 mg PO DAILY 10/10/22 01/24/23 release 24 hr (Myrbetriq) melatonin 3 mg tablet 6 mg PO BEDTIME 11/07/22 01/24/23 balsam herb-zinc oxide topical 1 ea topical BID 01/24/23 01/24/23 ointment ibuprofen 400 mg tablet 400 mg PO TID PRN Pain 01/24/23 01/24/23 methimazole 5 mg tablet 5 mg PO DAILY 01/24/23 01/24/23 methyl salicylate 30 %-menthol 10 1 appl topical BID 01/24/23 01/24/23 % topical cream (Icy Hot) triamcinolone acetonide 0.1 % 1 appl topical BID PRN Skin 01/24/23 01/24/23 topical ointment Irritation Allergies Allergy/AdvReac Type Severity Reaction Status Date / Time adhesive tape Allergy Intermediate SKIN Verified 11/09/22 13:35 REDNESS latex Allergy Intermediate SKIN RASH Verified 11/09/22 13:35 WITH TAPE Adhesive Tape Allergy Unknown Itching Uncoded 11/09/22 13:35 DUST Allergy Unknown ITCHY/WATERY Uncoded 11/09/22 13:35 EYES Dust and weeds Allergy Unknown stuffy nose Uncoded 11/09/22 13:35 Latex Gloves Allergy Unknown Itching Uncoded 11/09/22 13:35 seasonal Allergy Unknown Itching Uncoded 11/09/22 13:35 surgical paper tape Allergy Unknown rash Uncoded 11/09/22 13:35 Tide Allergy Unknown rash Uncoded 11/09/22 13:35 Review of Systems Review of Systems: Pertinent positives and negatives as stated in HPI [facility] Past Medical History Source: nursing notes reviewed Medical History Arthritis Colon cancer Developmental delay, mild Hyperthyroidism Lung mass Multinodular thyroid Toxic multinodular goiter Vitamin D deficiency Surgical History Hx of colonic polyps Hx of colonoscopy Family History Family History Father No problems noted. Mother Medical history unknown Social History Social History Alcohol intake: never Smoked in Last 30 Days: No Use of substances other than those prescribed or required for medical reasons: No Advance Directives: Yes Advance Directives on File: Yes Advance Directives Date on File: 01/05/21 Current occupational status: disabled Current occupation: right handed Physical Exam ED Vital Signs: Vital Signs - 24 hr 01/24/23 08:24 01/24/23 09:47 01/24/23 14:33 Temperature 98.7 F Pulse Rate 70 67 56 Respiratory Rate 18 20 16 Blood Pressure 125/65 167/59 H 153/74 H Pulse Oximetry 99 96 98 Oxygen Delivery Method Room Air Room Air Room Air BMI result Body Mass Index 28.6 VITAL SIGNS: Reviewed. GENERAL: Well developed, well nourished, in no acute distress. HEAD: Normocephalic/atraumatic EYES: PERRLA, EOMI LUNGS: Normal breath sounds. No adventitious sounds or accessory muscle use. SpO2<99> CARDIOVASCULAR: Regular rate and rhythm without noted murmurs ABDOMEN: Soft, non-tender, non-distended with bowel sounds. MUSCULOSKELETAL: No tenderness, deformities, or effusions noted on gross inspection. EXTREMITIES: No cyanosis, clubbing or edema. SKIN: Inspection of the skin reveals no rashes NEUROLOGIC: Alert and oriented x 2. Strength and sensation to light touch were grossly intact x 4. Medical Decision Making Medical Decision Making MDM Narrative: 67-year-old female with history and clinical presentation without acute medical complaints, patient was already fully medically cleared yesterday and is clear for further evaluation by the care team. Pending care team eval. 1443: After evaluation the decision was made to keep patient for observation to better assess her behavior. Patient placed in physician observation because the patient needed more time for evaluation of behavior. At the time observation was started the patient's vital signs were stable, patient is alert and oriented, neuro: Nonfocal, CV RRR, lungs clear Differential Diagnosis Please see the discussion above Lab Data Please see the discussion above Discharge Plan Discharge Clinical Impression: Behavior concern Patient Disposition: Still a Patient Prescriptions: No Action benztropine 0.5 mg tablet 0.5 tab PO BEDTIME carbamazepine 200 mg tablet 200 mg PO DAILY carbamazepine 200 mg tablet 400 mg PO BEDTIME aripiprazole 15 mg tablet 15 mg PO DAILY hydrochlorothiazide 25 mg tablet 25 mg PO DAILY multivitamin Tablet 1 tab PO DAILY aspirin 81 mg Tablet,Delayed Release (Dr/Ec) 81 mg PO DAILY acetaminophen 500 mg Tablet 500 mg PO Q4H PRN (Reason: pain/fever) nystatin 100,000 unit/gram Powder 1 appl TOPICAL BID PRN (Reason: Rash) Rx Instructions: rash in skin folds polyethylene glycol 3350 17 gram/dose Powder 17 g PO DAILY PRN (Reason: Constipation) clotrimazole 1 % Cream 1 appl TOPICAL BID Rx Instructions: apply under breast loratadine 10 mg Tablet 10 mg PO DAILY imipramine HCl 25 mg tablet 100 mg PO BEDTIME triamcinolone acetonide 0.1 % ointment 1 appl topical BID PRN (Reason: Skin Irritation) ibuprofen 400 mg Tablet 400 mg PO TID PRN (Reason: Pain) Balmex Ointment 1 ea TOPICAL BID Rx Instructions: to rash, groin, buttocks Icy Hot 30-10 % Cream 1 appl TOPICAL BID Rx Instructions: to back and shoulders methimazole 5 mg tablet 5 mg PO DAILY Myrbetriq 50 mg tablet extended release 24 hr 50 mg PO DAILY melatonin 3 mg tablet 6 mg PO BEDTIME
--- NOTE | 2023-01-24 08:33 | PC.NURSE ---
patient a&ox2- person/place, pt denies pain/discomfort, lungs clear-speaking in full sentences, ambulating with assist, this nurse called patients prison to determine what their needs were as to having the patient transported vs being brought back to the prison- staff requesting that the patient have a crisis eval as they feel she is having increased behavioral issues, this nurse told the facility that generally UTIs in elderly can cause behavior changes at times- pt had been dx with UTI in this facility yesterday. Provider was notified of the prison staff requests, will continue to monitor.
[2023-01-24 09:47] VITALS: BP 167/59; PULSE 67; RESP 20; O2SAT 96
--- NOTE | 2023-01-24 10:59 | PC.NURSE ---
patient alert to person/place, pt changed over to hospital/pod attire, belongings placed in locker 12. care team in to see patient, call carrero within reach, will continue to monitor.
--- NOTE | 2023-01-24 14:18 | PC.NURSE ---
pt reporting no pain, having lunch now. no apparent distress, will cont to caroline
[2023-01-24 14:33] VITALS: BP 153/74; PULSE 56; RESP 16; O2SAT 98
--- NOTE | 2023-01-24 14:36 | PHA.MEDREC ---
Pharmacy Consult ? Medication Reconciliation Pharmacy has completed the medication reconciliation. List faxed to pharmacy
--- NOTE | 2023-01-24 15:11 | MHC.CARE ---
Patient evaluated by the CARE Team, though her recent her behavior at the residential is concerning and dangerous she does not require inpatient psychiatric admission at this time. Plan is for patient to remain in the ED and be reassessed in the morning. Tack Picker, Freya Jaimes consulted, residential and ED provider, Dr. Neumann updated and in agreement with disposition.
[2023-01-24 18:02] VITALS: BP 111/51; PULSE 71; RESP 18; TEMP 36.8; O2SAT 97
[2023-01-24 20:09] LABS: COVID-19 Test Negative (Negative); IDNOW Serial# BCCEAD1C
[2023-01-24 20:20] VITALS: BP 91/46; PULSE 67; RESP 17; TEMP 36.7; O2SAT 96
--- NOTE | 2023-01-25 05:20 | PC.NURSE ---
Patient slept through the night, no distress observed/reported, behavior non concerning, med rec completed/approved/MAR active, care team assessed the patient, doesn't meet inpatient level of of care, and care team will coordinate discharge back to correction, VSS, will continue to monitor.
[2023-01-25 05:37] VITALS: BP 130/74; PULSE 70; RESP 16; TEMP 36.6; O2SAT 99
[2023-01-25] MEDS: cephALEXin 500 MG CAPSULE PO ×2 (08:43→15:45)
[2023-01-25] MEDS: Mirabegron 50 MG TAB.ER.24H PO (08:44)
[2023-01-25] MEDS: Aspirin Enteric Coated 81 MG TABLET.DR PO (08:44)
[2023-01-25] MEDS: ARIPiprazole 15 MG TABLET PO (08:44)
[2023-01-25] MEDS: hydroCHLOROthiazide 25 MG TABLET PO (08:44)
[2023-01-25] MEDS: Loratadine 10 MG TABLET PO (08:44)
[2023-01-25] MEDS: Multivitamin TABLET 1 TAB PO (08:45)
[2023-01-25 09:17] VITALS: BP 138/63; PULSE 68; RESP 16; TEMP 36.4; O2SAT 97
[2023-01-25] MEDS: carBAMazepine 200 MG TABLET PO (10:19)
[2023-01-25] MEDS: methIMAzole 5 MG TABLET PO (10:19)
[2023-01-25] MEDS: Zinc Oxide (Triple Paste) 56.7 GM OINT 1 APPL TOPICAL (10:22)
[2023-01-25] MEDS: Triamcinolone Acet 0.1 % Oint 15 GM TUBE 1 APPL TOPICAL (10:22)
[2023-01-25] MEDS: Clotrimazole 1 % Cream 15 GM TUBE 1 APPL TOPICAL (10:22)
[2023-01-25] MEDS: Nystatin Powder 15 GM BOTTLE 1 APPL TOPICAL (10:22)
--- NOTE | 2023-01-25 12:58 | MHC.CARE ---
CARE Team speaks with Patricia Mg RN from [facility] [phone]. Per Dr. Anguiano plan is for further UTI testing at the request of [facility] prior to pt being discharged back.
--- NOTE | 2023-01-25 13:34 | PC.NURSE ---
MD and CARE team requesting straight cath urine. Not enough staff at this time on the pod to straight cath d/t needing to cover the camera, door and have someone on the unit. Awaiting Security to have a spare employee to help make this possible. No rooms available in the main ED at this time.
[2023-01-25 14:44] LABS: Appearance Urine Clear; Color Urine Yellow; Glucose Urine UA Negative (Negative); Leukocyte Esterase Urine Small (1+) (Negative); Nitrite Urine Negative (Negative); PH 6.5 (5.0-9.0); Specific Gravity - Urine 1.015 (1.005-1.025); UMIC TRIGGER UACC YES; Urine Blood Negative (Negative); Urine Ketones Negative (Negative); Urine Protein Negative (Neg-Trace)
[2023-01-25 14:49] LABS: Bacteria Urine None Seen (None Seen); Hyaline Casts Urine 0-2 /LPF (0-2); RBC Urine 0-2 /HPF (0-2); Squamous Epithelial Cell Urine 0-2 /HPF (0-2); UACC Culture Trigger YES
--- NOTE | 2023-01-25 15:00 | ED.GENADULT ---
HPI - General Adult General Chief complaint: General Medical Stated complaint: CONFUSION,RECENT DX OF UTI,FROM [facility] HOME Time Seen by Provider: 01/24/23 08:22 Source: patient Mode of arrival: EMS Related Data Home Medications Medication Instructions Recorded Confirmed acetaminophen 500 mg tablet 500 mg PO Q4H PRN pain/fever 01/05/21 01/24/23 aripiprazole 15 mg tablet 15 mg PO DAILY 01/05/21 01/24/23 aspirin 81 mg tablet,delayed 81 mg PO DAILY 01/05/21 01/24/23 release benztropine 0.5 mg tablet 0.5 tab PO BEDTIME 01/05/21 01/24/23 carbamazepine 200 mg tablet 200 mg PO DAILY 01/05/21 01/24/23 carbamazepine 200 mg tablet 400 mg PO BEDTIME 01/05/21 01/24/23 clotrimazole 1 % topical cream 1 appl topical BID 01/05/21 01/24/23 hydrochlorothiazide 25 mg tablet 25 mg PO DAILY 01/05/21 01/24/23 loratadine 10 mg tablet 10 mg PO DAILY 01/05/21 01/24/23 multivitamin 1 tab PO DAILY 01/05/21 01/24/23 nystatin 100,000 unit/gram topical 1 appl topical BID PRN Rash 01/05/21 01/24/23 powder polyethylene glycol 3350 17 17 g PO DAILY PRN Constipation 01/05/21 01/24/23 gram/dose oral powder imipramine HCl 25 mg tablet 100 mg PO BEDTIME 10/10/22 01/24/23 mirabegron 50 mg tablet,extended 50 mg PO DAILY 10/10/22 01/24/23 release 24 hr (Myrbetriq) melatonin 3 mg tablet 6 mg PO BEDTIME 11/07/22 01/24/23 shaunm herb-zinc oxide topical 1 ea topical BID 01/24/23 01/24/23 ointment cephalexin 500 mg capsule 500 mg PO BID 01/24/23 01/24/23 ibuprofen 400 mg tablet 400 mg PO TID PRN Pain 01/24/23 01/24/23 methimazole 5 mg tablet 5 mg PO DAILY 01/24/23 01/24/23 methyl salicylate 30 %-menthol 10 1 appl topical BID 01/24/23 01/24/23 % topical cream (Icy Hot) triamcinolone acetonide 0.1 % 1 appl topical BID PRN Skin 01/24/23 01/24/23 topical ointment Irritation Previous Rx's Medication Instructions Recorded cephalexin 500 mg capsule 500 mg PO TID #14 caps 01/25/23 Allergies Allergy/AdvReac Type Severity Reaction Status Date / Time adhesive tape Allergy Intermediate SKIN Verified 11/09/22 13:35 REDNESS latex Allergy Intermediate SKIN RASH Verified 11/09/22 13:35 WITH TAPE Adhesive Tape Allergy Unknown Itching Uncoded 11/09/22 13:35 DUST Allergy Unknown ITCHY/WATERY Uncoded 11/09/22 13:35 EYES Dust and weeds Allergy Unknown stuffy nose Uncoded 11/09/22 13:35 Latex Gloves Allergy Unknown Itching Uncoded 11/09/22 13:35 seasonal Allergy Unknown Itching Uncoded 11/09/22 13:35 surgical paper tape Allergy Unknown rash Uncoded 11/09/22 13:35 Tide Allergy Unknown rash Uncoded 11/09/22 13:35 PMFSH Past Medical History Medical History Arthritis Colon cancer Developmental delay, mild Hyperthyroidism Lung mass Multinodular thyroid Toxic multinodular goiter Vitamin D deficiency Surgical History Hx of colonic polyps Hx of colonoscopy Family History Family History Father No problems noted. Mother Medical history unknown Social History Social History Alcohol intake: never Smoked in Last 30 Days: No Use of substances other than those prescribed or required for medical reasons: No Advance Directives: Yes Advance Directives on File: Yes Advance Directives Date on File: 01/05/21 Healthcare Proxy: Yes Guardian: Yes Current occupational status: disabled Current occupation: right handed Physical Exam ED Vital Signs: Vital Signs - 24 hr 01/24/23 18:02 01/24/23 20:20 01/25/23 05:37 Temperature 98.2 F 98.0 F 97.8 F Pulse Rate 71 67 70 Respiratory Rate 18 17 16 Blood Pressure 111/51 L 91/46 L 130/74 Pulse Oximetry 97 96 99 Oxygen Delivery Method Room Air Room Air Room Air 04/26/23 09:17 Temperature 97.6 F Pulse Rate 68 Respiratory Rate 16 Blood Pressure 138/63 Pulse Oximetry 97 Oxygen Delivery Method Room Air BMI result Body Mass Index 28.6 Medications Administered Generic Name Dose Route Start Last Admin Trade Name Edisonq PRN Reason Stop Dose Admin Aripiprazole 15 mg 01/25/23 09:00 01/25/23 08:44 Aripiprazole 15 Mg Tablet PO 15 mg DAILY DANA Administration Aspirin 81 mg 01/25/23 09:00 01/25/23 08:44 Aspirin Enteric Coated 81 Mg Tablet.Dr PO 81 mg DAILY DANA Administration Carbamazepine 200 mg 01/25/23 09:00 01/25/23 10:19 Carbamazepine 200 Mg Tablet PO 200 mg DAILY DANA Administration Cephalexin HCl 500 mg 01/25/23 09:00 01/25/23 08:43 Cephalexin 500 Mg Capsule PO 500 mg BID DANA Administration Clotrimazole 1 appl 01/25/23 09:00 01/25/23 10:22 Clotrimazole 1 % Cream 15 Gm Tube TOPICAL 1 appl BID DANA Administration Protocol Hydrochlorothiazide 25 mg 01/25/23 09:00 01/25/23 08:44 Hydrochlorothiazide 25 Mg Tablet PO 25 mg DAILY DANA Administration Protocol Loratadine 10 mg 01/25/23 09:00 01/25/23 08:44 Loratadine 10 Mg Tablet PO 10 mg DAILY DANA Administration Methimazole 5 mg 01/25/23 09:00 01/25/23 10:19 Methimazole 5 Mg Tablet PO 5 mg DAILY DANA Administration Mirabegron 50 mg 01/25/23 09:00 01/25/23 08:44 Mirabegron 50 Mg Tab.Er.24h PO 50 mg DAILY DANA Administration Multivitamins/Vitamin C 1 tab 01/25/23 09:00 01/25/23 08:45 Multivitamin Tablet PO 1 tab DAILY DANA Administration Nystatin 1 appl 01/25/23 00:35 01/25/23 10:22 Nystatin Powder 15 Gm Bottle TOPICAL 1 appl BID PRN Administration Rash Protocol Triamcinolone Acetonide 1 appl 01/25/23 00:35 01/25/23 10:22 Triamcinolone Acet 0.1 % Oint 15 Gm Tube TOPICAL 1 appl BID PRN Administration Skin Irritation Trolamine Salicylate/Aloe Vera 1 appl 01/25/23 09:00 01/25/23 10:26 Trolamine Salicylate 10%/Aloe Cream 35.4 Gm TOPICAL 1 appl BID DANA Administration Zinc Oxide 1 appl 01/25/23 09:00 01/25/23 10:22 Zinc Oxide (Triple Paste) 56.7 Gm Oint TOPICAL 1 appl BID DANA Administration Medical Decision Making Medical Decision Making MDM Narrative: Taken on sign-out pending placement. Patient was question of urinary tract infection versus contamination. Catheter specimen obtained and sent. Is consistent with ongoing urinary tract infection. Will continue Keflex. She is stable for discharge back to her longterm with follow-up as recommended by crisis team Lab Data Labs: Lab Results 01/24/23 01/25/23 Range/Units 19:42 14:34 Urine Color Yellow Urine Appearance Clear Urine pH 6.5 (5.0-9.0) Ur Specific [place] 1.015 (1.005-1.025) Urine Protein Negative (Neg-Trace) mg/dL Urine Glucose (UA) Negative (Negative) mg/dL Urine Ketones Negative (Negative) mg/dL Urine Blood Negative (Negative) Urine Nitrite Negative (Negative) Ur Leukocyte Esterase Small (1+) H (Negative) Urine RBC 0-2 (0-2) /HPF Urine WBC 11-20 H (0-5) /HPF Ur Squamous Epith Cells 0-2 (0-2) /HPF Urine Bacteria None Seen (None Seen) Hyaline Casts 0-2 (0-2) /LPF COVID-19 ([facility]) Negative (Negative) COVID-19 Clin Com See Note Discharge Plan Discharge Clinical Impression: Behavior concern, Urinary tract infection Patient Disposition: Home, Self-Care Instructions: Urinary Tract Infection in Women (DC), Conduct Disorder (ED) Additional Instructions: Antibiotics as instructed. Your urinalysis, which was a straight cath specimen, showed continued urinary tract infection. Prescriptions: New cephalexin 500 mg capsule 500 mg PO TID Qty: 14 0RF No Action benztropine 0.5 mg tablet 0.5 tab PO BEDTIME carbamazepine 200 mg tablet 200 mg PO DAILY carbamazepine 200 mg tablet 400 mg PO BEDTIME aripiprazole 15 mg tablet 15 mg PO DAILY hydrochlorothiazide 25 mg tablet 25 mg PO DAILY multivitamin Tablet 1 tab PO DAILY aspirin 81 mg Tablet,Delayed Release (Dr/Ec) 81 mg PO DAILY acetaminophen 500 mg Tablet 500 mg PO Q4H PRN (Reason: pain/fever) nystatin 100,000 unit/gram Powder 1 appl TOPICAL BID PRN (Reason: Rash) Rx Instructions: rash in skin folds polyethylene glycol 3350 17 gram/dose Powder 17 g PO DAILY PRN (Reason: Constipation) clotrimazole 1 % Cream 1 appl TOPICAL BID Rx Instructions: apply under breast loratadine 10 mg Tablet 10 mg PO DAILY imipramine HCl 25 mg tablet 100 mg PO BEDTIME triamcinolone acetonide 0.1 % ointment 1 appl topical BID PRN (Reason: Skin Irritation) ibuprofen 400 mg Tablet 400 mg PO TID PRN (Reason: Pain) Balmex Ointment 1 ea TOPICAL BID Rx Instructions: to rash, groin, buttocks Icy Hot 30-10 % Cream 1 appl TOPICAL BID Rx Instructions: to back and shoulders methimazole 5 mg tablet 5 mg PO DAILY cephalexin [Keflex] 500 mg Capsule 500 mg PO BID Myrbetriq 50 mg tablet extended release 24 hr 50 mg PO DAILY melatonin 3 mg tablet 6 mg PO BEDTIME
== END 2023-01-25 17:07 | disposition home or self-care (01) ==
PROVIDERS: Emergency Provider Emergency Medicine; PCP Internal Medicine
DX: N39.0 Urinary tract infection, site not specified (principal); R41.0 Disorientation, unspecified; Z79.899 Other long term (current) drug therapy; Z20.822 Contact with and (suspected) exposure to COVID-19; Z20.828 Contact with and (suspected) exposure to other viral communicable diseases
CPT/HCPCS: 51702; 81001; 87086; 87635; 99285; S9485

== ENCOUNTER 2023-01-30 02:03 | Emergency (ER) | payer MEDICARE, MEDICAID, SELFPAY ==
[2023-01-30 02:19] VITALS: BP 124/64; BP 132/84; PULSE 64; PULSE 78; RESP 16; TEMP 36.8; O2SAT 98; O2SAT 99; BMI 26.1
[2023-01-30 02:38] VITALS: BP 125/64; PULSE 65; RESP 16; TEMP 36.8; O2SAT 97
[2023-01-30 02:38] LABS: MANUAL DIFF FLAG NO
[2023-01-30 02:40] LABS: Basophils Percent Auto 0.7 % (0-2); Eosinophils Absolute Auto 0.1 X10*3/uL (0.0-0.4); Hematocrit 35.1 % (37.0-47.0); Hemoglobin 11.9 g/dl (12.0-16.0); Imm Gran Abs Auto 0.01 X10*3/uL (0.00-0.03); Imm Gran Pct Auto 0.2 % (0.0-0.4); Lymphocytes Absolute Auto 1.8 X10*3/uL (1.2-4.9); Lymphocytes Percent Auto 30.2 % (20-40); Mean Corpuscular HGB Conc 33.9 g/dl (31.0-35.0); Mean Corpuscular Hemoglobin 29.6 pg (27.0-33.0); Mean Corpuscular Volume 87.3 fL (80.0-98.0); Mean Platelet Volume 9.1 fL (9.4-12.3); Monocytes Absolute Auto 0.5 X10*3/uL (0.1-1.2); Neutrophils Absolute Auto 3.5 x10*3/uL (2.0-8.3); Neutrophils Percent Auto 57.9 % (45-73); Platelet Count 240 X10*3/uL (160-400); Red Blood Count 4.02 X10*6/uL (4.20-5.50); Red Cell Distribution Width 13.2 % (11.0-16.0)
--- NOTE | 2023-01-30 02:55 | ED.GENADULT ---
HPI - General Adult General Chief complaint: General Medical Stated complaint: not feeling safe Time Seen by Provider: 01/30/23 02:55 Source: patient Mode of arrival: ambulatory Limitations: no limitations History of Present Illness HPI narrative: Patient home fdc with developmental delay and hyperthyroidism came here as she does not want to stay in a fdc wanted to be out was frustrated. No other medical complaints otherwise patient behaving normally patient treated for UTI on 01/25 but urine culture was negative Related Data Home Medications Medication Instructions Recorded Confirmed acetaminophen 500 mg tablet 500 mg PO Q4H PRN pain/fever 01/05/21 01/24/23 aripiprazole 15 mg tablet 15 mg PO DAILY 01/05/21 01/24/23 aspirin 81 mg tablet,delayed 81 mg PO DAILY 01/05/21 01/24/23 release benztropine 0.5 mg tablet 0.5 tab PO BEDTIME 01/05/21 01/24/23 carbamazepine 200 mg tablet 200 mg PO DAILY 01/05/21 01/24/23 carbamazepine 200 mg tablet 400 mg PO BEDTIME 01/05/21 01/24/23 clotrimazole 1 % topical cream 1 appl topical BID 01/05/21 01/24/23 hydrochlorothiazide 25 mg tablet 25 mg PO DAILY 01/05/21 01/24/23 loratadine 10 mg tablet 10 mg PO DAILY 01/05/21 01/24/23 multivitamin 1 tab PO DAILY 01/05/21 01/24/23 nystatin 100,000 unit/gram topical 1 appl topical BID PRN Rash 01/05/21 01/24/23 powder polyethylene glycol 3350 17 17 g PO DAILY PRN Constipation 01/05/21 01/24/23 gram/dose oral powder imipramine HCl 25 mg tablet 100 mg PO BEDTIME 10/10/22 01/24/23 mirabegron 50 mg tablet,extended 50 mg PO DAILY 10/10/22 01/24/23 release 24 hr (Myrbetriq) melatonin 3 mg tablet 6 mg PO BEDTIME 11/07/22 01/24/23 balsam herb-zinc oxide topical 1 ea topical BID 01/24/23 01/24/23 ointment cephalexin 500 mg capsule 500 mg PO BID 01/24/23 01/24/23 ibuprofen 400 mg tablet 400 mg PO TID PRN Pain 01/24/23 01/24/23 methimazole 5 mg tablet 5 mg PO DAILY 01/24/23 01/24/23 methyl salicylate 30 %-menthol 10 1 appl topical BID 01/24/23 01/24/23 % topical cream (Icy Hot) triamcinolone acetonide 0.1 % 1 appl topical BID PRN Skin 01/24/23 01/24/23 topical ointment Irritation Previous Rx's Medication Instructions Recorded cephalexin 500 mg capsule 500 mg PO TID #14 caps 01/25/23 Allergies Allergy/AdvReac Type Severity Reaction Status Date / Time adhesive tape Allergy Intermediate SKIN Verified 11/09/22 13:35 REDNESS latex Allergy Intermediate SKIN RASH Verified 11/09/22 13:35 WITH TAPE Adhesive Tape Allergy Unknown Itching Uncoded 11/09/22 13:35 DUST Allergy Unknown ITCHY/WATERY Uncoded 11/09/22 13:35 EYES Dust and weeds Allergy Unknown stuffy nose Uncoded 11/09/22 13:35 Latex Gloves Allergy Unknown Itching Uncoded 11/09/22 13:35 seasonal Allergy Unknown Itching Uncoded 11/09/22 13:35 surgical paper tape Allergy Unknown rash Uncoded 11/09/22 13:35 Tide Allergy Unknown rash Uncoded 11/09/22 13:35 Review of Systems Review of Systems: Yes all other systems are reviewed and are negative PMFSH Past Medical History Medical History Arthritis Colon cancer Developmental delay, mild Hyperthyroidism Lung mass Multinodular thyroid Toxic multinodular goiter Vitamin D deficiency Surgical History Hx of colonic polyps Hx of colonoscopy Family History Family History Father No problems noted. Mother Medical history unknown Social History Social History Alcohol intake: never Smoked in Last 30 Days: No Use of substances other than those prescribed or required for medical reasons: No Advance Directives: Yes Advance Directives on File: Yes Advance Directives Date on File: 01/05/21 Current occupational status: disabled Current occupation: right handed Physical Exam ED Vital Signs: Vital Signs - 24 hr 01/30/23 02:19 01/30/23 02:38 01/30/23 03:55 Temperature 98.3 F 98.3 F 98.5 F Pulse Rate 64 65 67 Respiratory Rate 16 16 17 Blood Pressure 124/64 125/64 115/61 Pulse Oximetry 98 97 96 Oxygen Delivery Method Room Air Room Air Room Air 01/30/23 06:13 Temperature 98.0 F Pulse Rate 60 Respiratory Rate 17 Blood Pressure 128/67 Pulse Oximetry 100 Oxygen Delivery Method Room Air BMI result Body Mass Index 26.1 Appearance: Alert. Oriented X3. No acute distress. Eyes: PERRLA, No Nystagmus ENT: Pharynx normal. Oral Mucosa moist Neck: Normal inspection. Neck supple. CVS: Normal heart rate and rhythm. Pulses normal. Respiratory: No respiratory distress. Equal air entry bilateral, no wheezing/rales/rhonchi Abdomen: Soft and nontender. Bowel sounds are present, no mass palpable, no CVA tenderness Skin: Skin warm and dry. Normal skin color. Normal skin turgor. Extremities: No lower extremity edema. No calf tenderness Neuro: Oriented X 3. No motor deficit. No sensory deficit.No cerebellar signs , cranial nerves II-XII intact Medical Decision Making Medical Decision Making [facility] Narrative: Patient medically stable would like to go back to fdc will discharge patient Lab Data [facility] Lab Attestation statement: I reviewed the patient's lab results. 01/30/23 02:34 01/30/23 02:34 Labs: Lab Results 01/30/23 01/30/23 Range/Units 02:34 02:34 WBC 6.0 (4.8-10.8) X10*3/uL RBC 4.02 L (4.20-5.50) X10*6/uL Hgb 11.9 L (12.0-16.0) g/dl Hct 35.1 L (37.0-47.0) % MCV 87.3 (80.0-98.0) fL MCH 29.6 (27.0-33.0) pg MCHC 33.9 (31.0-35.0) g/dl RDW 13.2 (11.0-16.0) % Plt Count 240 (160-400) X10*3/uL MPV 9.1 L (9.4-12.3) fL Immature Gran % (Auto) 0.2 (0.0-0.4) % Neut % (Auto) 57.9 (45-73) % Lymph % (Auto) 30.2 (20-40) % [place] % (Auto) 9.0 (2-11) % Eos % (Auto) 2.0 (0-4) % Baso % (Auto) 0.7 (0-2) % Lymph # (Auto) 1.8 (1.2-4.9) X10*3/uL [place] # (Auto) 0.5 (0.1-1.2) X10*3/uL Eos # (Auto) 0.1 (0.0-0.4) X10*3/uL Baso # (Auto) 0.0 (0.0-0.2) X10*3/uL Abs Immat Gran (auto) 0.01 (0.00-0.03) X10*3/uL Absolute Neuts (auto) 3.5 (2.0-8.3) x10*3/uL Absolute Nucleated RBC 0.000 (0.0-0.012) X10*3/uL Nucleated RBC % (auto) 0.0 (0.0-0.2) /100WBC Sodium 137 (135-145) mmol/L Potassium 4.0 (3.3-5.1) mmol/L Chloride 101 (96-108) mmol/L Carbon Dioxide 27 (22-29) mmol/L Anion Gap 13 (12-20) BUN 17 H (9-16) mg/dL Creatinine 0.61 (0.5-1.4) mg/dL Estim Creat Clear Calc 77.9 Estimated GFR > 60 Fasting Glucose 90 (60-99) mg/dL Calcium 9.1 (8.4-10.2) mg/dL Total Bilirubin 0.4 (0.0-1.0) mg/dL AST 24 (5-31) U/L ALT 19 (0-31) U/L Alkaline Phosphatase 125 H (39-117) U/L Total Protein 6.5 (6.5-8.0) g/dL Albumin 3.7 (3.5-5.0) g/dL Discharge Plan Discharge Clinical Impression: Adjustment disorder Patient Disposition: Xfer LTC Transfer Details: Medically cleared for fdc placement Instructions: Mood Disorders (ED) Additional Instructions: Creating to take your medications and follow up with the psychiatrist Prescriptions: No Action benztropine 0.5 mg tablet 0.5 tab PO BEDTIME carbamazepine 200 mg tablet 200 mg PO DAILY carbamazepine 200 mg tablet 400 mg PO BEDTIME aripiprazole 15 mg tablet 15 mg PO DAILY hydrochlorothiazide 25 mg tablet 25 mg PO DAILY multivitamin Tablet 1 tab PO DAILY aspirin 81 mg Tablet,Delayed Release (Dr/Ec) 81 mg PO DAILY acetaminophen 500 mg Tablet 500 mg PO Q4H PRN (Reason: pain/fever) nystatin 100,000 unit/gram Powder 1 appl TOPICAL BID PRN (Reason: Rash) Rx Instructions: rash in skin folds polyethylene glycol 3350 17 gram/dose Powder 17 g PO DAILY PRN (Reason: Constipation) clotrimazole 1 % Cream 1 appl TOPICAL BID Rx Instructions: apply under breast loratadine 10 mg Tablet 10 mg PO DAILY imipramine HCl 25 mg tablet 100 mg PO BEDTIME triamcinolone acetonide 0.1 % ointment 1 appl topical BID PRN (Reason: Skin Irritation) ibuprofen 400 mg Tablet 400 mg PO TID PRN (Reason: Pain) Balmex Ointment 1 ea TOPICAL BID Rx Instructions: to rash, groin, buttocks Icy Hot 30-10 % Cream 1 appl TOPICAL BID Rx Instructions: to back and shoulders methimazole 5 mg tablet 5 mg PO DAILY cephalexin [Keflex] 500 mg Capsule 500 mg PO BID cephalexin 500 mg capsule 500 mg PO TID Qty: 14 0RF Myrbetriq 50 mg tablet extended release 24 hr 50 mg PO DAILY melatonin 3 mg tablet 6 mg PO BEDTIME
[2023-01-30 03:08] LABS: Alanine Aminotransferase 19 U/L (0-31); Albumin Level 3.7 g/dL (3.5-5.0); Alkaline Phosphatase 125 U/L (39-117); Anion Gap 13 (12-20); Aspartate Amino Transferase 24 U/L (5-31); Bilirubin Total 0.4 mg/dL (0.0-1.0); Blood Urea Nitrogen 17 mg/dL (9-16); Calcium 9.1 mg/dL (8.4-10.2); Carbon Dioxide 27 mmol/L (22-29); Chloride 101 mmol/L (96-108); Creatinine Clr Calc Pharmacy 77.9; Estimated Glomerular Filt Rate > 60; Glucose Fasting 90 mg/dL (60-99); Sodium 137 mmol/L (135-145); Total Protein 6.5 g/dL (6.5-8.0)
[2023-01-30 03:55] VITALS: BP 115/61; PULSE 67; RESP 17; TEMP 36.9; O2SAT 96
--- NOTE | 2023-01-30 04:11 | PC.NURSE ---
Patient brought to ED by Phi OLIVIER for complaint of not feeling well and not being able to sleep today. Patient reports she does not like the fdc and just wanted to get out of there. Patient denies physical or emotional abuse by the fdc staff. Patient was [place] at [facility] 01/24/2023 for UTI. Patient is alert and oriented x4. Patient denies any pain, discomfort. 20 G IV line inserted R AC, labs drawn per MD orders. Call carrero within patient's reach.
[2023-01-30 06:13] VITALS: BP 128/67; PULSE 60; RESP 17; TEMP 36.7; O2SAT 100
[2023-01-30 07:48] VITALS: BP 131/70; PULSE 61; RESP 20; TEMP 36.6; O2SAT 100
--- NOTE | 2023-01-30 09:30 | PC.NURSE ---
Spoke with Patricia from [facility] who expresses concerns regarding pt urine and TSH level, Elba CAIN aware, plan to obtain
--- NOTE | 2023-01-30 10:28 | PC.NURSE ---
Pt is alert/oriented. Denies pain or discomfort. Aware of plan for UA then d/c back to care home. Skin pwd. Answering questions appropriately. Breathing even/unlabored.
[2023-01-30 10:36] VITALS: BP 137/71; PULSE 87; RESP 18; TEMP 36.8; O2SAT 100
[2023-01-30 10:36] LABS: TSH reflex Free T4 1.62 uIU/mL (0.32-4.0)
[2023-01-30 11:32] LABS: Appearance Urine Clear; Color Urine Yellow; Glucose Urine UA Negative (Negative); Leukocyte Esterase Urine Trace (Negative); Nitrite Urine Negative (Negative); Specific Gravity - Urine 1.015 (1.005-1.025); UMIC TRIGGER UACC YES; Urine Blood Negative (Negative); Urine Ketones Negative (Negative); Urine Protein Negative (Neg-Trace)
[2023-01-30 11:35] LABS: Bacteria Urine None Seen (None Seen); Hyaline Casts Urine 0-2 /LPF (0-2); RBC Urine 0-2 /HPF (0-2); WBC Urine 0-5 /HPF (0-5)
--- NOTE | 2023-01-30 14:16 | PC.NURSE ---
pt cleared for discharge. iv removed, discharge instructions reviewed with pt and alf staff. pt transported back to alf via alf staff's car.
== END 2023-01-30 14:19 ==
PROVIDERS: Physician Assistant; Emergency Provider Internal Medicine; PCP Internal Medicine
DX: F43.20 Adjustment disorder, unspecified (principal); Z79.899 Other long term (current) drug therapy
CPT/HCPCS: 36415; 80053; 81001; 84443; 85025; 99283; 99284

== ENCOUNTER 2023-02-23 07:25 | Outpatient (REF) | payer MEDICARE, MEDICAID, SELFPAY ==
--- NOTE | 2023-02-23 08:11 | P.BOP_ITS ---
Brief Operative Note Date of Service: 02/23/23 Pre-op diagnosis: Toxic Multinodular Thyroid Procedure: EXAMINATION: US THYROID CLINICAL INFORMATION: Multinodular Thyroid COMPARISON: Prior TECHNIQUE: Linear transducer elder-scale and color Doppler examination with attention to the region of the thyroid. FINDINGS: SIZE: Measurements of the thyroid lobes and nodules are given in sagittal, anteroposterior and transverse dimensions respectively. Right Thyroid Lobe: 2.72 x 5.94 x 2.75 cm, volume 10.5 mL. Parenchyma: The gland echotexture is diffusely heterogenous. Left Thyroid Lobe: 2.18 x 4.36 x 2.24 cm. Parenchyma: The gland echotexture is diffusely heterogenous. There are multiple nodules bilaterally. NODES: No lymph nodes were assessed. IMPRESSION: The patient presented for FNA biopsy of the thyroid but was unable to tolerate even the pressure from the ultrasound probe. She was unable to tolerate FNA biopsy so this was aborted and simple measurements of the R and L thyroid lobe were taken. The patient has a toxic multinodular goiter, well controlled on methimazole. She will be referred for a total thyroidectomy at this time. All questions were answered. Surgeon: Jeanne Wolf, DO Was an Senior Litigation Paralegal used for this Procedure?: No Estimated blood loss (mL): 0
== END 2023-02-23 07:26 | disposition home or self-care (01) ==
LOC: HO.US 07:25
PROVIDERS: PCP Internal Medicine; Visit Provider Internal Medicine
DX: E04.2 Nontoxic multinodular goiter (principal)
CPT/HCPCS: 76536

== ENCOUNTER → 2023-03-09 12:23 | Outpatient (BNVA) | payer MEDICARE, MEDICAID, SELFPAY | PROVIDERS: PCP Internal Medicine; Visit Provider Internal Medicine | DX: E05.20 Thyrotoxicosis with toxic multinodular goiter without thyrotoxic crisis or storm (principal); E55.9 Vitamin D deficiency, unspecified | CPT/HCPCS: 36415; 84439; 84443; 84480; 99212 ==

== ENCOUNTER 2023-03-09 13:32 | Outpatient (REF) | payer MEDICARE, MEDICAID, SELFPAY ==
[2023-03-09 17:43] LABS: Free T4 (Free Thyroxine) 0.77 ng/dL (0.71-1.85); Thyroid Stimulating Hormone 0.52 uIU/mL (0.32-4.0)
[2023-03-11 04:39] LABS: Triiodothyronine T3 Total 90 ng/dL (76-181)
== END 2023-03-09 13:33 | disposition home or self-care (01) ==
LOC: HO.HMGCLDS 13:32
PROVIDERS: PCP Internal Medicine; Visit Provider Internal Medicine
DX: Z13.89 Encounter for screening for other disorder (principal)
CPT/HCPCS: 36415; 84439; 84443; 84480

== ENCOUNTER 2023-05-04 06:35 | Outpatient (REF) | payer MEDICARE, MEDICAID, SELFPAY ==
[2023-05-04 11:30] LABS: MANUAL DIFF FLAG NO
[2023-05-04 11:45] LABS: Basophils Absolute Auto 0.1 X10*3/uL (0.0-0.2); Basophils Percent Auto 0.7 % (0-2); Eosinophils Absolute Auto 0.2 X10*3/uL (0.0-0.4); Eosinophils Percent Auto 1.5 % (0-4); Hematocrit 31.7 % (37.0-47.0); Hemoglobin 9.8 g/dl (12.0-16.0); Imm Gran Abs Auto 0.03 X10*3/uL (0.00-0.03); Imm Gran Pct Auto 0.3 % (0.0-0.4); Lymphocytes Absolute Auto 1.7 X10*3/uL (1.2-4.9); Mean Corpuscular HGB Conc 30.9 g/dl (31.0-35.0); Mean Corpuscular Hemoglobin 28.2 pg (27.0-33.0); Mean Corpuscular Volume 91.4 fL (80.0-98.0); Mean Platelet Volume 9.5 fL (9.4-12.3); Neutrophils Absolute Auto 7.1 x10*3/uL (2.0-8.3); Neutrophils Percent Auto 70.5 % (45-73); Platelet Count 414 X10*3/uL (160-400); Red Blood Count 3.47 X10*6/uL (4.20-5.50); Red Cell Distribution Width 12.9 % (11.0-16.0); White Blood Count 10.1 X10*3/uL (4.8-10.8)
[2023-05-04 12:04] LABS: Alanine Aminotransferase 15 U/L (0-31); Alkaline Phosphatase 103 U/L (39-117); Anion Gap 15 (12-20); Aspartate Amino Transferase 18 U/L (5-31); Bilirubin Total 0.2 mg/dL (0.0-1.0); Blood Urea Nitrogen 21 mg/dL (9-16); Calcium 9.2 mg/dL (8.4-10.2); Carbon Dioxide 27 mmol/L (22-29); Chloride 101 mmol/L (96-108); Estimated Glomerular Filt Rate 56; Glucose Random 80 mg/dL (60-115); Potassium 3.7 mmol/L (3.3-5.1); Sodium 139 mmol/L (135-145); Total Protein 7.5 g/dL (6.5-8.0)
[2023-05-04 12:09] LABS: Free T4 (Free Thyroxine) 0.74 ng/dL (0.71-1.85)
[2023-05-04 12:48] LABS: Vitamin B12 858 pg/mL (200-900)
== END 2023-05-04 06:36 | disposition home or self-care (01) ==
LOC: HO.HMGCLDS 06:35
PROVIDERS: PCP Internal Medicine; Visit Provider Internal Medicine
DX: R63.4 Abnormal weight loss (principal); F31.9 Bipolar disorder, unspecified; R41.0 Disorientation, unspecified
CPT/HCPCS: 36415; 80053; 82607; 84439; 85025

== ENCOUNTER 2023-05-05 15:09 | Outpatient (REF) | payer MEDICARE, MEDICAID, SELFPAY ==
[2023-05-05 16:28] LABS: Appearance Urine Turbid; Color Urine Yellow; Glucose Urine UA Negative (Negative); Leukocyte Esterase Urine Large (3+) (Negative); Nitrite Urine Negative (Negative); UMIC TRIGGER UA YES; Urine Blood Small (1+) (Negative); Urine Ketones Negative (Negative); Urine Protein 30 (1+) mg/dL (Neg-Trace)
[2023-05-05 16:35] LABS: Bacteria Urine 4+ (None Seen); Hyaline Casts Urine 0-2 /LPF (0-2); RBC Urine >20 /HPF (0-2); Squamous Epithelial Cell Urine 0-2 /HPF (0-2); WBC Urine >50 /HPF (0-5)
== END 2023-05-05 15:10 | disposition home or self-care (01) ==
LOC: HO.LNP 15:09
PROVIDERS: Visit Provider Internal Medicine
DX: R41.0 Disorientation, unspecified (principal); R63.4 Abnormal weight loss; F31.9 Bipolar disorder, unspecified
CPT/HCPCS: 81001; 87086; 87088; 87186

== ENCOUNTER 2023-05-10 16:19 | Emergency (ER) | payer MEDICARE, MEDICAID, SELFPAY ==
[2023-05-10 16:35] VITALS: BP 124/68; BP 125/61; PULSE 67; PULSE 99; RESP 18; TEMP 36.9; O2SAT 100; O2SAT 99; BMI 44.8
--- NOTE | 2023-05-10 16:38 | ED_ITS ---
HPI - General Adult General Chief complaint: Altered Mental Status Stated complaint: UTI CONFUSION Time Seen by Provider: 05/10/23 16:27 Source: patient and EMS Mode of arrival: EMS History of Present Illness HPI narrative: [facility] of [facility] came here for increased nausea and confusion patient has last UTD diagnosed on 05/05 grew E coli patient is on Macrobid 50 mg daily but the E coli is resistant to Macrobid, patient afebrile on arrival no vomiting no back pain Related Data Home Medications Medication Instructions Recorded Confirmed acetaminophen 500 mg tablet 500 mg PO Q4H PRN pain/fever 01/05/21 05/10/23 aripiprazole 15 mg tablet 15 mg PO DAILY 01/05/21 05/10/23 aspirin 81 mg tablet,delayed 81 mg PO DAILY 01/05/21 05/10/23 release carbamazepine 200 mg tablet 200 mg PO DAILY 01/05/21 05/10/23 carbamazepine 200 mg tablet 400 mg PO BEDTIME 01/05/21 05/10/23 clotrimazole 1 % topical cream 1 appl topical BID 01/05/21 05/10/23 hydrochlorothiazide 25 mg tablet 25 mg PO DAILY 01/05/21 05/10/23 loratadine 10 mg tablet 10 mg PO DAILY 01/05/21 05/10/23 multivitamin 1 tab PO DAILY 01/05/21 05/10/23 nystatin 100,000 unit/gram topical 1 appl topical BID PRN Rash 01/05/21 05/10/23 powder polyethylene glycol 3350 17 17 g PO DAILY PRN Constipation 01/05/21 05/10/23 gram/dose oral powder imipramine HCl 25 mg tablet 100 mg PO BEDTIME 10/10/22 05/10/23 mirabegron 50 mg tablet,extended 50 mg PO DAILY 10/10/22 05/10/23 release 24 hr (Myrbetriq) saturninosade estevez-zinc oxide topical 1 ea topical BID 01/24/23 05/10/23 ointment ibuprofen 400 mg tablet 400 mg PO TID PRN Pain 01/24/23 05/10/23 methyl salicylate 30 %-menthol 10 1 appl topical BID 01/24/23 05/10/23 % topical cream (Icy Hot) triamcinolone acetonide 0.1 % 1 appl topical BID PRN Skin 01/24/23 05/10/23 topical ointment Irritation amoxicillin 500 mg capsule 500 mg PO TID 05/10/23 05/10/23 benztropine 1 mg tablet 1 mg PO DAILY 05/10/23 05/10/23 dextromethorphan-guaifenesin 10 7.5 ml PO Q6H PRN Cough 05/10/23 05/10/23 mg-200 mg/5 mL oral liquid melatonin 10 mg tablet 10 mg PO BEDTIME 05/10/23 05/10/23 nitrofurantoin macrocrystal 50 mg 50 mg PO DAILY 05/10/23 05/10/23 capsule (Macrodantin) Previous Rx's Medication Instructions Recorded methimazole 5 mg tablet 5 mg PO DAILY #30 tabs 04/18/23 cefuroxime axetil 250 mg tablet 250 mg PO BID 7 days #14 tabs 05/10/23 Allergies Allergy/AdvReac Type Severity Reaction Status Date / Time adhesive tape Allergy Intermediate itching Verified 03/09/23 12:45 and skin redness latex Allergy Intermediate skin rash Verified 03/09/23 12:45 and itching Seasonal Allergies Allergy Itching Verified 03/09/23 12:45 weed pollen Allergy stuffy nose Verified 03/09/23 12:45 DUST Allergy Unknown ITCHY/WATERY Uncoded 03/09/23 12:45 EYES surgical paper tape Allergy Unknown rash Uncoded 03/09/23 12:45 Tide Allergy Unknown rash Uncoded 03/09/23 12:45 Review of Systems Review of Systems: Yes all other systems are reviewed and are negative PMFSH Past Medical History Medical History Arthritis Colon cancer Developmental delay, mild Hyperthyroidism Lung mass Multinodular thyroid Toxic multinodular goiter Toxic multinodular goiter Vitamin D deficiency Surgical History History of biopsy Hx of colonic polyps Hx of colonoscopy Family History Family History Father No problems noted. Mother Medical history unknown Social History Social History Alcohol intake: never Smoked in Last 30 Days: No Use of substances other than those prescribed or required for medical reasons: No Advance Directives: Yes Advance Directives on File: Yes Advance Directives Date on File: 01/05/21 Current occupational status: disabled Current occupation: right handed Physical Exam ED Vital Signs: Vital Signs - 24 hr 05/10/23 16:35 05/10/23 18:13 05/10/23 22:49 Temperature 98.5 F 97.7 F Pulse Rate 99 78 74 Respiratory Rate 18 18 Blood Pressure 125/61 124/52 L 126/48 L Pulse Oximetry 100 98 100 Oxygen Delivery Method Room Air Room Air Room Air BMI result Body Mass Index 44.8 Appearance: Alert. Oriented X3. No acute distress. Eyes: PERRLA, No Nystagmus ENT: Pharynx normal. Oral Mucosa moist Neck: Normal inspection. Neck supple. CVS: Normal heart rate and rhythm. Pulses normal. Respiratory: No respiratory distress. Equal air entry bilateral, no wheezing/rales/rhonchi Abdomen: Soft and nontender. Bowel sounds are present, no mass palpable, no CVA tenderness Skin: Skin warm and dry. Normal skin color. Normal skin turgor. Extremities: No lower extremity edema. No calf tenderness Neuro: Oriented X 3. No motor deficit. No sensory deficit.No cerebellar signs , cranial nerves II-XII intact Medications Administered Discontinued Medications Generic Name Dose Route Start Last Admin Trade Name Freq PRN Reason Stop Dose Admin Ceftriaxone Sodium 1 gm/ 50 mls @ 100 mls/hr 05/10/23 17:51 05/10/23 20:23 Sodium Chloride IV 05/10/23 18:20 Infused ONCE ONE Infusion Medical Decision Making Medical Decision Making [facility] Narrative: Patient with UTI previous culture grew E coli resistant to nitrofurantoin which she is on for prophylaxis ,will discharge patient home on Ceftin Lab Data [facility] Lab Attestation statement: I reviewed the patient's lab results. 05/10/23 18:32 05/10/23 18:32 Labs: Lab Results 05/10/23 05/10/23 05/10/23 Range/Units 18:32 18:32 18:32 WBC 8.9 (4.8-10.8) X10*3/uL RBC 2.96 L (4.20-5.50) X10*6/uL Hgb 8.3 L (12.0-16.0) g/dl Hct 26.3 L (37.0-47.0) % MCV 88.9 (80.0-98.0) fL MCH 28.0 (27.0-33.0) pg MCHC 31.6 (31.0-35.0) g/dl RDW 13.2 (11.0-16.0) % Plt Count 311 (160-400) X10*3/uL MPV 9.5 (9.4-12.3) fL Immature Gran % (Auto) 0.3 (0.0-0.4) % Neut % (Auto) 65.7 (45-73) % Lymph % (Auto) 23.0 (20-40) % [place] % (Auto) 8.6 (2-11) % Eos % (Auto) 2.1 (0-4) % Baso % (Auto) 0.3 (0-2) % Lymph # (Auto) 2.0 (1.2-4.9) X10*3/uL [place] # (Auto) 0.8 (0.1-1.2) X10*3/uL Eos # (Auto) 0.2 (0.0-0.4) X10*3/uL Baso # (Auto) 0.0 (0.0-0.2) X10*3/uL Abs Immat Gran (auto) 0.03 (0.00-0.03) X10*3/uL Absolute Neuts (auto) 5.8 (2.0-8.3) x10*3/uL Absolute Nucleated RBC 0.000 (0.0-0.012) X10*3/uL Nucleated RBC % (auto) 0.0 (0.0-0.2) /100WBC Sodium 138 (135-145) mmol/L Potassium 3.4 (3.3-5.1) mmol/L Chloride 101 (96-108) mmol/L Carbon Dioxide 28 (22-29) mmol/L Anion Gap 12 (12-20) BUN 27 H (9-16) mg/dL Creatinine 1.01 (0.5-1.4) mg/dL Estim Creat Clear Calc 69.8 Estimated GFR 55 Random Glucose 85 (60-115) mg/dL Lactic Acid 0.5 (0.5-2.0) mmol/L Calcium 8.9 (8.4-10.2) mg/dL Total Bilirubin 0.2 (0.0-1.0) mg/dL AST 20 (5-31) U/L ALT 16 (0-31) U/L Alkaline Phosphatase 91 (39-117) U/L Total Protein 6.8 (6.5-8.0) g/dL Albumin 2.8 L (3.5-5.0) g/dL Urine Color Urine Appearance Urine pH (5.0-9.0) Ur Specific [place] (1.005-1.025) Urine Protein (Neg-Trace) mg/dL Urine Glucose (UA) (Negative) mg/dL Urine Ketones (Negative) mg/dL Urine Blood (Negative) Urine Nitrite (Negative) Ur Leukocyte Esterase (Negative) Urine RBC (0-2) /HPF Urine WBC (0-5) /HPF Ur Squamous Epith Cells (0-2) /HPF Urine Bacteria (None Seen) Hyaline Casts (0-2) /LPF COVID-19 ([facility]) (Negative) COVID-19 Clin Com 05/10/23 05/10/23 Range/Units 18:32 21:36 WBC (4.8-10.8) X10*3/uL RBC (4.20-5.50) X10*6/uL Hgb (12.0-16.0) g/dl Hct (37.0-47.0) % MCV (80.0-98.0) fL MCH (27.0-33.0) pg MCHC (31.0-35.0) g/dl RDW (11.0-16.0) % Plt Count (160-400) X10*3/uL MPV (9.4-12.3) fL Immature Gran % (Auto) (0.0-0.4) % Neut % (Auto) (45-73) % Lymph % (Auto) (20-40) % [place] % (Auto) (2-11) % Eos % (Auto) (0-4) % Baso % (Auto) (0-2) % Lymph # (Auto) (1.2-4.9) X10*3/uL [place] # (Auto) (0.1-1.2) X10*3/uL Eos # (Auto) (0.0-0.4) X10*3/uL Baso # (Auto) (0.0-0.2) X10*3/uL Abs Immat Gran (auto) (0.00-0.03) X10*3/uL Absolute Neuts (auto) (2.0-8.3) x10*3/uL Absolute Nucleated RBC (0.0-0.012) X10*3/uL Nucleated RBC % (auto) (0.0-0.2) /100WBC Sodium (135-145) mmol/L Potassium (3.3-5.1) mmol/L Chloride (96-108) mmol/L Carbon Dioxide (22-29) mmol/L Anion Gap (12-20) BUN (9-16) mg/dL Creatinine (0.5-1.4) mg/dL Estim Creat Clear Calc Estimated GFR Random Glucose (60-115) mg/dL Lactic Acid (0.5-2.0) mmol/L Calcium (8.4-10.2) mg/dL Total Bilirubin (0.0-1.0) mg/dL AST (5-31) U/L ALT (0-31) U/L Alkaline Phosphatase (39-117) U/L Total Protein (6.5-8.0) g/dL Albumin (3.5-5.0) g/dL Urine Color Yellow Urine Appearance Cloudy Urine pH 6.0 (5.0-9.0) Ur Specific [place] <= 1.005 (1.005-1.025) Urine Protein Negative (Neg-Trace) mg/dL Urine Glucose (UA) Negative (Negative) mg/dL Urine Ketones Negative (Negative) mg/dL Urine Blood Small (1+) H (Negative) Urine Nitrite Negative (Negative) Ur Leukocyte Esterase Large (3+) H (Negative) Urine RBC 0-2 (0-2) /HPF Urine WBC >50 H (0-5) /HPF Ur Squamous Epith Cells 0-2 (0-2) /HPF Urine Bacteria None Seen (None Seen) Hyaline Casts 0-2 (0-2) /LPF COVID-19 ([facility]) Negative (Negative) COVID-19 Clin Com See Note Discharge Plan Discharge Clinical Impression: UTI (urinary tract infection) Patient Disposition: Home, Self-Care Instructions: Urinary Tract Infection in Older Adults (ED) Additional Instructions: Drink plenty of fluids Start taking Ceftin 250 mg twice daily for 7 days Follow-up with PCP if not better Prescriptions: New cefuroxime axetil 250 mg tablet 250 mg PO BID 7 Days Qty: 14 0RF No Action methimazole 5 mg tablet 5 mg PO DAILY Qty: 30 1RF carbamazepine 200 mg tablet 200 mg PO DAILY carbamazepine 200 mg tablet 400 mg PO BEDTIME aripiprazole 15 mg tablet 15 mg PO DAILY hydrochlorothiazide 25 mg tablet 25 mg PO DAILY multivitamin Tablet 1 tab PO DAILY aspirin 81 mg Tablet,Delayed Release (Dr/Ec) 81 mg PO DAILY acetaminophen 500 mg Tablet 500 mg PO Q4H PRN (Reason: pain/fever) nystatin 100,000 unit/gram Powder 1 appl TOPICAL BID PRN (Reason: Rash) Rx Instructions: rash in skin folds polyethylene glycol 3350 17 gram/dose Powder 17 g PO DAILY PRN (Reason: Constipation) clotrimazole 1 % Cream 1 appl TOPICAL BID Rx Instructions: apply under breast loratadine 10 mg Tablet 10 mg PO DAILY imipramine HCl 25 mg tablet 100 mg PO BEDTIME triamcinolone acetonide 0.1 % ointment 1 appl topical BID PRN (Reason: Skin Irritation) ibuprofen 400 mg Tablet 400 mg PO TID PRN (Reason: Pain) Balmex Ointment 1 ea TOPICAL BID Rx Instructions: to rash, groin, buttocks Icy Hot 30-10 % Cream 1 appl TOPICAL BID Rx Instructions: to back and shoulders nitrofurantoin macrocrystal [Macrodantin] 50 mg Capsule 50 mg PO DAILY Rx Instructions: must administer with a meal/food Guaifenesin DM 10-200 mg/5 mL Liquid 7.5 ml PO Q6H PRN (Reason: Cough) benztropine 1 mg tablet 1 mg PO DAILY melatonin 10 mg Tablet 10 mg PO BEDTIME amoxicillin 500 mg capsule 500 mg PO TID Myrbetriq 50 mg tablet extended release 24 hr 50 mg PO DAILY Interventions: ED Discharge Assessment Last Done: 05/11/23 00:16 Discharge Date/Time: 05/11/23 00:17
--- NOTE | 2023-05-10 16:43 | PC.NURSE ---
Patient alert and oriented. Arrived from [facility] living with complaints of nausea. [facility] staff report that patient has been recently dx with uti and seems more confused than usual to them. VSS, patient states pain with urination, some blood in urine.
[2023-05-10 18:13] VITALS: BP 124/52; PULSE 78; RESP 18; TEMP 36.5; O2SAT 98
[2023-05-10] MEDS: cefTRIAXone sodium 1 GM in 0.9 % Sodium Chloride 50 ML IV (18:28)
--- NOTE | 2023-05-10 18:33 | PC.NURSE ---
Alert and oriented, iv abt running as ordered.
--- NOTE | 2023-05-10 18:35 | PC.NURSE ---
iV abt start at 6:28pm after 2nd of blood cultures was drawn by tech at 6:15pm.
[2023-05-10 18:44] LABS: MANUAL DIFF FLAG NO
[2023-05-10 18:48] LABS: Basophils Percent Auto 0.3 % (0-2); Eosinophils Absolute Auto 0.2 X10*3/uL (0.0-0.4); Eosinophils Percent Auto 2.1 % (0-4); Hematocrit 26.3 % (37.0-47.0); Hemoglobin 8.3 g/dl (12.0-16.0); Imm Gran Abs Auto 0.03 X10*3/uL (0.00-0.03); Imm Gran Pct Auto 0.3 % (0.0-0.4); Mean Corpuscular HGB Conc 31.6 g/dl (31.0-35.0); Mean Corpuscular Volume 88.9 fL (80.0-98.0); Mean Platelet Volume 9.5 fL (9.4-12.3); Monocytes Absolute Auto 0.8 X10*3/uL (0.1-1.2); Monocytes Percent Auto 8.6 % (2-11); Neutrophils Absolute Auto 5.8 x10*3/uL (2.0-8.3); Neutrophils Percent Auto 65.7 % (45-73); Platelet Count 311 X10*3/uL (160-400); Red Blood Count 2.96 X10*6/uL (4.20-5.50); Red Cell Distribution Width 13.2 % (11.0-16.0); White Blood Count 8.9 X10*3/uL (4.8-10.8)
[2023-05-10 19:00] LABS: Lactic Acid 0.5 mmol/L (0.5-2.0)
[2023-05-10 19:05] LABS: Alanine Aminotransferase 16 U/L (0-31); Albumin Level 2.8 g/dL (3.5-5.0); Alkaline Phosphatase 91 U/L (39-117); Anion Gap 12 (12-20); Aspartate Amino Transferase 20 U/L (5-31); Bilirubin Total 0.2 mg/dL (0.0-1.0); Blood Urea Nitrogen 27 mg/dL (9-16); Calcium 8.9 mg/dL (8.4-10.2); Carbon Dioxide 28 mmol/L (22-29); Chloride 101 mmol/L (96-108); Creatinine Clr Calc Pharmacy 69.8; Estimated Glomerular Filt Rate 55; Glucose Random 85 mg/dL (60-115); Potassium 3.4 mmol/L (3.3-5.1); Sodium 138 mmol/L (135-145); Total Protein 6.8 g/dL (6.5-8.0)
[2023-05-10 19:13] LABS: COVID-19 Test Negative (Negative); IDNOW Serial# 08D9AD1C
--- NOTE | 2023-05-10 19:34 | PC.NURSE ---
Pt alert and responds to verbal command. No signs of distress. Pts family member at bedside. Plan of care ongoing.
[2023-05-10 21:53] LABS: Appearance Urine Cloudy; Color Urine Yellow; Glucose Urine UA Negative (Negative); Leukocyte Esterase Urine Large (3+) (Negative); Nitrite Urine Negative (Negative); Specific Gravity - Urine <= 1.005 (1.005-1.025); UMIC TRIGGER UACC YES; Urine Blood Small (1+) (Negative); Urine Ketones Negative (Negative); Urine Protein Negative (Neg-Trace)
[2023-05-10 22:12] LABS: Bacteria Urine None Seen (None Seen); Hyaline Casts Urine 0-2 /LPF (0-2); RBC Urine 0-2 /HPF (0-2); Squamous Epithelial Cell Urine 0-2 /HPF (0-2); UACC Culture Trigger YES; WBC Urine >50 /HPF (0-5)
--- NOTE | 2023-05-10 22:18 | PHA.MEDREC ---
Pharmacy Consult ? Medication Reconciliation Pharmacy has completed the medication reconciliation. Patient came with list from [facility]. List match claim history. Claim history also report Amoxicillin was filled on 05/08 for a 9 day supply which was not reported on [facility] med list. Shobha Farris, PharmD
[2023-05-10 22:49] VITALS: BP 126/48; PULSE 74; O2SAT 100
== END 2023-05-11 00:17 | disposition home or self-care (01) ==
PROVIDERS: Emergency Provider Internal Medicine
DX: N39.0 Urinary tract infection, site not specified (principal); R11.2 Nausea with vomiting, unspecified; Z79.899 Other long term (current) drug therapy; Z20.822 Contact with and (suspected) exposure to COVID-19; Z20.828 Contact with and (suspected) exposure to other viral communicable diseases
CPT/HCPCS: 80053; 81001; 83605; 85025; 87040; 87086; 87088; 87186; 87635; 96365; 96366; 99284; J0696

== ENCOUNTER 2023-05-11 10:05 | Emergency (ER) | payer MEDICARE, MEDICAID, SELFPAY ==
[2023-05-11 10:12] VITALS: BP 133/66; PULSE 68; RESP 18; TEMP 37.2; O2SAT 100
[2023-05-11 10:25] VITALS: BP 133/66; BP 152/82; PULSE 71; PULSE 72; RESP 16; TEMP 37.3; O2SAT 100; O2SAT 99; BMI 28.1
--- NOTE | 2023-05-11 10:30 | PC.NURSE ---
this RN in to see pt, unable to awake, extremely somnolent, head turned to the left with NC on 2L with O2 at 94%. did not respond to verbal stimuli nor multiple sternal rubs. MD in to assess. pt woke very upset and agitated and swearing at MD. pt now alert and oriented x4.
[2023-05-11 11:15] LABS: MANUAL DIFF FLAG NO
[2023-05-11 11:18] LABS: Basophils Percent Auto 0.4 % (0-2); Eosinophils Percent Auto 0.3 % (0-4); Hematocrit 27.5 % (37.0-47.0); Hemoglobin 8.9 g/dl (12.0-16.0); Imm Gran Abs Auto 0.03 X10*3/uL (0.00-0.03); Imm Gran Pct Auto 0.4 % (0.0-0.4); Lymphocytes Absolute Auto 1.5 X10*3/uL (1.2-4.9); Lymphocytes Percent Auto 18.3 % (20-40); Mean Corpuscular HGB Conc 32.4 g/dl (31.0-35.0); Mean Corpuscular Hemoglobin 28.3 pg (27.0-33.0); Mean Corpuscular Volume 87.6 fL (80.0-98.0); Mean Platelet Volume 8.9 fL (9.4-12.3); Monocytes Absolute Auto 0.6 X10*3/uL (0.1-1.2); Monocytes Percent Auto 7.3 % (2-11); Neutrophils Absolute Auto 5.9 x10*3/uL (2.0-8.3); Neutrophils Percent Auto 73.3 % (45-73); Platelet Count 336 X10*3/uL (160-400); Red Blood Count 3.14 X10*6/uL (4.20-5.50); Red Cell Distribution Width 13.2 % (11.0-16.0)
[2023-05-11 11:37] LABS: Lactic Acid 0.8 mmol/L (0.5-2.0)
[2023-05-11 11:41] LABS: Alanine Aminotransferase 18 U/L (0-31); Albumin Level 3.1 g/dL (3.5-5.0); Alkaline Phosphatase 99 U/L (39-117); Anion Gap 13 (12-20); Aspartate Amino Transferase 20 U/L (5-31); Bilirubin Total 0.2 mg/dL (0.0-1.0); Blood Urea Nitrogen 25 mg/dL (9-16); Calcium 9.2 mg/dL (8.4-10.2); Carbon Dioxide 28 mmol/L (22-29); Chloride 105 mmol/L (96-108); Creatinine Clr Calc Pharmacy 50.9; Estimated Glomerular Filt Rate > 60; Glucose Random 103 mg/dL (60-115); Magnesium 2.4 mg/dL (1.6-2.6); Potassium 3.4 mmol/L (3.3-5.1); Sodium 143 mmol/L (135-145); Total Protein 7.5 g/dL (6.5-8.0)
--- NOTE | 2023-05-11 11:59 | MHC.EDTECH ---
About 1100, Changed patient over and cleaned up. Patient was found to have a Brief over her Underwear. Underwear were stained with Urine both front and back. When Rolled to her side, found she had dried feces on her bottom. Patient was cleaned up. A pure wick and bed pads had been put down for her. Warm blanket given
--- NOTE | 2023-05-11 12:48 | MHC.EDTECH ---
2nd set of Blood Cults. Drawn @ 8472
--- NOTE | 2023-05-11 12:51 | ED_ITS ---
HPI - General Adult General Chief complaint: General Medical Stated complaint: AMS UTI Time Seen by Provider: 05/11/23 10:24 Source: patient and other (Staff) History of Present Illness HPI narrative: 67-year-old female who is brought in by ambulance with staff members from [facility] with concerns that the antibiotic that she was started on for her UTI has given her worsening behavioral symptoms. Related Data Home Medications Medication Instructions Recorded Confirmed acetaminophen 500 mg tablet 500 mg PO Q4H PRN pain/fever 01/05/21 05/10/23 aripiprazole 15 mg tablet 15 mg PO DAILY 01/05/21 05/10/23 aspirin 81 mg tablet,delayed 81 mg PO DAILY 01/05/21 05/10/23 release carbamazepine 200 mg tablet 200 mg PO DAILY 01/05/21 05/10/23 carbamazepine 200 mg tablet 400 mg PO BEDTIME 01/05/21 05/10/23 clotrimazole 1 % topical cream 1 appl topical BID 01/05/21 05/10/23 hydrochlorothiazide 25 mg tablet 25 mg PO DAILY 01/05/21 05/10/23 loratadine 10 mg tablet 10 mg PO DAILY 01/05/21 05/10/23 multivitamin 1 tab PO DAILY 01/05/21 05/10/23 nystatin 100,000 unit/gram topical 1 appl topical BID PRN Rash 01/05/21 05/10/23 powder polyethylene glycol 3350 17 17 g PO DAILY PRN Constipation 01/05/21 05/10/23 gram/dose oral powder imipramine HCl 25 mg tablet 100 mg PO BEDTIME 10/10/22 05/10/23 mirabegron 50 mg tablet,extended 50 mg PO DAILY 10/10/22 05/10/23 release 24 hr (Myrbetriq) chantal estevez-zinc oxide topical 1 ea topical BID 01/24/23 05/10/23 ointment ibuprofen 400 mg tablet 400 mg PO TID PRN Pain 01/24/23 05/10/23 methyl salicylate 30 %-menthol 10 1 appl topical BID 01/24/23 05/10/23 % topical cream (Icy Hot) triamcinolone acetonide 0.1 % 1 appl topical BID PRN Skin 01/24/23 05/10/23 topical ointment Irritation benztropine 1 mg tablet 1 mg PO DAILY 05/10/23 05/10/23 dextromethorphan-guaifenesin 10 7.5 ml PO Q6H PRN Cough 05/10/23 05/10/23 mg-200 mg/5 mL oral liquid melatonin 10 mg tablet 10 mg PO BEDTIME 05/10/23 05/10/23 Previous Rx's Medication Instructions Recorded methimazole 5 mg tablet 5 mg PO DAILY #30 tabs 04/18/23 cefdinir 300 mg capsule 300 mg PO BID 7 days #14 caps 05/11/23 Allergies Allergy/AdvReac Type Severity Reaction Status Date / Time adhesive tape Allergy Intermediate itching Verified 03/09/23 12:45 and skin redness latex Allergy Intermediate skin rash Verified 03/09/23 12:45 and itching Seasonal Allergies Allergy Itching Verified 03/09/23 12:45 weed pollen Allergy stuffy nose Verified 03/09/23 12:45 DUST Allergy Unknown ITCHY/WATERY Uncoded 03/09/23 12:45 EYES surgical paper tape Allergy Unknown rash Uncoded 03/09/23 12:45 Tide Allergy Unknown rash Uncoded 03/09/23 12:45 Review of Systems Review of Systems: Pertinent positives and negatives as stated in HPI PMFSH Past Medical History Source: nursing notes reviewed Medical History Arthritis Colon cancer Developmental delay, mild Hyperthyroidism Lung mass Multinodular thyroid Toxic multinodular goiter Toxic multinodular goiter Vitamin D deficiency Surgical History History of biopsy Hx of colonic polyps Hx of colonoscopy Family History Family History Father No problems noted. Mother Medical history unknown Social History Social History Alcohol intake: never Smoked in Last 30 Days: No Use of substances other than those prescribed or required for medical reasons: No Advance Directives: Yes Advance Directives on File: Yes Advance Directives Date on File: 01/05/21 Current occupational status: disabled Current occupation: right handed Physical Exam ED Vital Signs: Vital Signs - 24 hr 05/11/23 10:12 05/11/23 10:25 Temperature 99.0 F 99.1 F Pulse Rate 68 71 Respiratory Rate 18 16 Blood Pressure 133/66 133/66 Pulse Oximetry 100 99 Oxygen Delivery Method Room Air Room Air BMI result Body Mass Index 28.1 VITAL SIGNS: Reviewed. GENERAL: Well developed, well nourished, in no acute distress. HEAD: Normocephalic/atraumatic EYES: PERRLA, EOMI LUNGS: Normal breath sounds. No adventitious sounds or accessory muscle use. SpO2<99> CARDIOVASCULAR: Regular rate and rhythm without noted murmurs ABDOMEN: Soft, non-tender, non-distended with bowel sounds. MUSCULOSKELETAL: No tenderness, deformities, or effusions noted on gross inspection. EXTREMITIES: No cyanosis, clubbing or edema. SKIN: Inspection of the skin reveals no rashes NEUROLOGIC: Alert and oriented x 1. Strength and sensation to light touch were grossly intact x 4. Medical Decision Making Medical Decision Making [facility] Narrative: 67-year-old female for whom I have reviewed all investigations and patient has chronically stable hematologic indices, she is afebrile. Chemistry indices are chronically stable and on review of patient's urine microbiology I feel that patient may be under treated for her urinary tract infection and will be started on cefdinir. I spoke at length with the nurse at the [facility] who expresses concerns regarding behavioral changes and is adamantly requesting that patient be kept here for evaluation. Unfortunately, patient does not meet admission criteria or observation and she is not perceived to pose a harm to herself or others and most activities described by the facility are behavioral. Differential Diagnosis Differential Diagnoses: The differential diagnosis associated with the presentation includes Please see the discussion above Admission/Observation Consideration of admission/observation: Escalation of care including admission/observation considered Please see the discussion above Lab Data [facility] Lab Attestation statement: I reviewed the patient's lab results. Please see the discussion above 05/11/23 11:10 05/11/23 11:10 Labs: Lab Results 05/11/23 05/11/23 05/11/23 Range/Units 11:10 11:10 11:10 WBC 8.0 (4.8-10.8) X10*3/uL RBC 3.14 L (4.20-5.50) X10*6/uL Hgb 8.9 L (12.0-16.0) g/dl Hct 27.5 L (37.0-47.0) % MCV 87.6 (80.0-98.0) fL MCH 28.3 (27.0-33.0) pg MCHC 32.4 (31.0-35.0) g/dl RDW 13.2 (11.0-16.0) % Plt Count 336 (160-400) X10*3/uL MPV 8.9 L (9.4-12.3) fL Immature Gran % (Auto) 0.4 (0.0-0.4) % Neut % (Auto) 73.3 H (45-73) % Lymph % (Auto) 18.3 L (20-40) % [place] % (Auto) 7.3 (2-11) % Eos % (Auto) 0.3 (0-4) % Baso % (Auto) 0.4 (0-2) % Lymph # (Auto) 1.5 (1.2-4.9) X10*3/uL [place] # (Auto) 0.6 (0.1-1.2) X10*3/uL Eos # (Auto) 0.0 (0.0-0.4) X10*3/uL Baso # (Auto) 0.0 (0.0-0.2) X10*3/uL Abs Immat Gran (auto) 0.03 (0.00-0.03) X10*3/uL Absolute Neuts (auto) 5.9 (2.0-8.3) x10*3/uL Absolute Nucleated RBC 0.000 (0.0-0.012) X10*3/uL Nucleated RBC % (auto) 0.0 (0.0-0.2) /100WBC Sodium 143 (135-145) mmol/L Potassium 3.4 (3.3-5.1) mmol/L Chloride 105 (96-108) mmol/L Carbon Dioxide 28 (22-29) mmol/L Anion Gap 13 (12-20) BUN 25 H (9-16) mg/dL Creatinine 0.89 (0.5-1.4) mg/dL Estim Creat Clear Calc 50.9 Estimated GFR > 60 Random Glucose 103 (60-115) mg/dL Lactic Acid 0.8 (0.5-2.0) mmol/L Calcium 9.2 (8.4-10.2) mg/dL Magnesium 2.4 (1.6-2.6) mg/dL Total Bilirubin 0.2 (0.0-1.0) mg/dL AST 20 (5-31) U/L ALT 18 (0-31) U/L Alkaline Phosphatase 99 (39-117) U/L Total Protein 7.5 (6.5-8.0) g/dL Albumin 3.1 L (3.5-5.0) g/dL External Record Review External record reviewed: Outpatient record and Prior outpatient labs Critical Care Time Critical Care Time Critical Care Time: Yes Total Critical Care Time: 30 Attestation: I personally attest to this time spent taking care of the patient. Discharge Plan Discharge Clinical Impression: Cystitis Patient Disposition: Xfer Other Instructions: Urinary Tract Infection in Women (ED) Additional Instructions: 1. Resume all home medications as prescribed. 2. The antibiotic has been changed and should be taken as prescribed. 3. Although patient does demonstrate behavioral changes I have not evaluated the patient and determined her to be a threat to herself or others. Return to the ER for any worsening symptoms. Prescriptions: New cefdinir 300 mg capsule 300 mg PO BID 7 Days Qty: 14 0RF Discontinued nitrofurantoin macrocrystal [Macrodantin] 50 mg Capsule 50 mg PO DAILY Rx Instructions: must administer with a meal/food amoxicillin 500 mg capsule 500 mg PO TID cefuroxime axetil 250 mg tablet 250 mg PO BID 7 Days Qty: 14 0RF No Action methimazole 5 mg tablet 5 mg PO DAILY Qty: 30 1RF carbamazepine 200 mg tablet 200 mg PO DAILY carbamazepine 200 mg tablet 400 mg PO BEDTIME aripiprazole 15 mg tablet 15 mg PO DAILY hydrochlorothiazide 25 mg tablet 25 mg PO DAILY multivitamin Tablet 1 tab PO DAILY aspirin 81 mg Tablet,Delayed Release (Dr/Ec) 81 mg PO DAILY acetaminophen 500 mg Tablet 500 mg PO Q4H PRN (Reason: pain/fever) nystatin 100,000 unit/gram Powder 1 appl TOPICAL BID PRN (Reason: Rash) Rx Instructions: rash in skin folds polyethylene glycol 3350 17 gram/dose Powder 17 g PO DAILY PRN (Reason: Constipation) clotrimazole 1 % Cream 1 appl TOPICAL BID Rx Instructions: apply under breast loratadine 10 mg Tablet 10 mg PO DAILY imipramine HCl 25 mg tablet 100 mg PO BEDTIME triamcinolone acetonide 0.1 % ointment 1 appl topical BID PRN (Reason: Skin Irritation) ibuprofen 400 mg Tablet 400 mg PO TID PRN (Reason: Pain) Balmex Ointment 1 ea TOPICAL BID Rx Instructions: to rash, groin, buttocks Icy Hot 30-10 % Cream 1 appl TOPICAL BID Rx Instructions: to back and shoulders Guaifenesin DM 10-200 mg/5 mL Liquid 7.5 ml PO Q6H PRN (Reason: Cough) benztropine 1 mg tablet 1 mg PO DAILY melatonin 10 mg Tablet 10 mg PO BEDTIME Myrbetriq 50 mg tablet extended release 24 hr 50 mg PO DAILY
--- NOTE | 2023-05-11 13:30 | PC.NURSE ---
pt's visual basic programmer at bedside states that pt has been taking abt for uti which was started on this past monday. aware.
--- NOTE | 2023-05-11 13:35 | PC.NURSE ---
group billing coordinator at bedside states that pt was seen in the [facility] night and was straight cath with a dx of uti as well. the facility rn spoke with traffic control supervisor who is requesting ativan prn for manic episodes. aware.
--- NOTE | 2023-05-11 14:18 | MHC.CARE ---
CARE Team received a call from A staff reporting they would like Pt seen by crisis and to contact Sima Barger ([phone]) for collateral information. T/w spoke with Dr. Neumann who informed t/w its not clinically indicated at this time for Pt to have a crisis evaluation and she made A RN aware.
[2023-05-11] MEDS: cefTRIAXone sodium 1 GM, Lidocaine HCl 1 % MPF 2.1 ML IM (14:32)
[2023-05-11] MEDS: LORazepam 0.5 MG TABLET PO (14:39)
[2023-05-11 14:42] VITALS: BP 146/73; PULSE 75; RESP 16; TEMP 37.3; O2SAT 100
[2023-05-11 17:35] VITALS: BP 126/57; PULSE 64; RESP 16; TEMP 36.6; O2SAT 98
== END 2023-05-11 17:11 | disposition other institution (70) ==
PROVIDERS: Physician Assistant Medical; Emergency Provider Student in an Organized Health Care Education/Training Program
DX: N30.00 Acute cystitis without hematuria (principal); F91.9 Conduct disorder, unspecified; Z79.899 Other long term (current) drug therapy
CPT/HCPCS: 36415; 51702; 80053; 83605; 83735; 85025; 87040; 96372; 99284; J0696

== ENCOUNTER 2023-06-03 20:45 | Emergency (ER) | payer MEDICARE, MEDICAID, SELFPAY ==
--- NOTE | ~2023-06-03 | XR_ITS ---
EXAMINATION: XR ELBOW, LEFT CLINICAL INFORMATION: Pain in the elbow. COMPARISON: None available. TECHNIQUE: AP, lateral, and oblique views of the left elbow. FINDINGS: The bones and soft tissues are normal. No fracture or joint effusion. Alignment is anatomic. Joint spaces are maintained. XR/XR elbow LT min 3V IMPRESSION: Normal left elbow.
[2023-06-03 20:49] VITALS: BP 136/70; BP 148/84; PULSE 75; PULSE 82; RESP 18; TEMP 37.1; O2SAT 98; O2SAT 99; BMI 24.7
--- NOTE | 2023-06-03 22:51 | ED.EXTPRO ---
HPI - Extremity Problem General Chief complaint: Extremity Injury, Upper Stated complaint: L-elbow pain 07/11 Time Seen by Provider: 06/03/23 22:49 Source: patient Mode of arrival: ambulatory History of Present Illness HPI Narrative: 67-year-old female who presents with atraumatic elbow pain and denies any fevers or chills.. Related Data Home Medications Medication Instructions Recorded Confirmed acetaminophen 500 mg tablet 500 mg PO Q4H PRN pain/fever 01/05/21 05/10/23 aripiprazole 15 mg tablet 15 mg PO DAILY 01/05/21 05/10/23 aspirin 81 mg tablet,delayed 81 mg PO DAILY 01/05/21 05/10/23 release carbamazepine 200 mg tablet 200 mg PO DAILY 01/05/21 05/10/23 carbamazepine 200 mg tablet 400 mg PO BEDTIME 01/05/21 05/10/23 clotrimazole 1 % topical cream 1 appl topical BID 01/05/21 05/10/23 hydrochlorothiazide 25 mg tablet 25 mg PO DAILY 01/05/21 05/10/23 loratadine 10 mg tablet 10 mg PO DAILY 01/05/21 05/10/23 multivitamin 1 tab PO DAILY 01/05/21 05/10/23 nystatin 100,000 unit/gram topical 1 appl topical BID PRN Rash 01/05/21 05/10/23 powder polyethylene glycol 3350 17 17 g PO DAILY PRN Constipation 01/05/21 05/10/23 gram/dose oral powder imipramine HCl 25 mg tablet 100 mg PO BEDTIME 10/10/22 05/10/23 mirabegron 50 mg tablet,extended 50 mg PO DAILY 10/10/22 05/10/23 release 24 hr (Myrbetriq) chantal estevez-zinc oxide topical 1 ea topical BID 01/24/23 05/10/23 ointment ibuprofen 400 mg tablet 400 mg PO TID PRN Pain 01/24/23 05/10/23 methyl salicylate 30 %-menthol 10 1 appl topical BID 01/24/23 05/10/23 % topical cream (Icy Hot) triamcinolone acetonide 0.1 % 1 appl topical BID PRN Skin 01/24/23 05/10/23 topical ointment Irritation benztropine 1 mg tablet 1 mg PO DAILY 05/10/23 05/10/23 dextromethorphan-guaifenesin 10 7.5 ml PO Q6H PRN Cough 05/10/23 05/10/23 mg-200 mg/5 mL oral liquid melatonin 10 mg tablet 10 mg PO BEDTIME 05/10/23 05/10/23 Previous Rx's Medication Instructions Recorded methimazole 5 mg tablet 5 mg PO DAILY #30 tabs 04/18/23 cefdinir 300 mg capsule 300 mg PO BID 7 days #14 caps 05/11/23 Allergies Allergy/AdvReac Type Severity Reaction Status Date / Time adhesive tape Allergy Intermediate itching Verified 03/09/23 12:45 and skin redness latex Allergy Intermediate skin rash Verified 03/09/23 12:45 and itching Seasonal Allergies Allergy Itching Verified 03/09/23 12:45 weed pollen Allergy stuffy nose Verified 03/09/23 12:45 DUST Allergy Unknown ITCHY/WATERY Uncoded 03/09/23 12:45 EYES surgical paper tape Allergy Unknown rash Uncoded 03/09/23 12:45 Tide Allergy Unknown rash Uncoded 03/09/23 12:45 Review of Systems Review of Systems: Operative positives and negatives as stated in HPI [facility] Past Medical History Source: nursing notes reviewed Medical History Arthritis Colon cancer Developmental delay, mild Hyperthyroidism Lung mass Multinodular thyroid Toxic multinodular goiter Toxic multinodular goiter Vitamin D deficiency Surgical History History of biopsy Hx of colonic polyps Hx of colonoscopy Family History Family History Father No problems noted. Mother Medical history unknown Social History Social History Alcohol intake: never Advance Directives: Yes Advance Directives on File: Yes Advance Directives Date on File: 01/05/21 Current occupational status: disabled Current occupation: right handed Physical Exam Vital Signs: Vital Signs: Last Vital Signs Temp 98.8 F 06/03/23 20:49 Pulse 75 06/03/23 20:49 Resp 18 06/03/23 20:49 BP 136/70 06/03/23 20:49 Pulse Ox 99 06/03/23 20:49 O2 Del Method Room Air 06/03/23 20:49 BMI result Body Mass Index 24.7 VITAL SIGNS: Reviewed. GENERAL: Well developed, well nourished, in no acute distress. HEAD: Normocephalic/atraumatic EYES: PERRLA, EOMI OROPHARYNX: no oral lesions noted, posterior pharynx clear NECK: Supple, no adenopathy LUNGS: Normal breath sounds. No adventitious sounds or accessory muscle use. SpO2<99> CARDIOVASCULAR: Regular rate and rhythm without noted murmurs ABDOMEN: Soft, non-tender, non-distended with bowel sounds. MUSCULOSKELETAL: No tenderness, deformities, or effusions noted on gross inspection. EXTREMITIES: No cyanosis, clubbing or edema. LUE: Elbows without erythema or induration, no fluctuance, no obvious deformity, neurovascularly intact distal. SKIN: Inspection of the skin reveals no rashes NEUROLOGIC: Alert and oriented x 4. Strength and sensation to light touch were grossly intact x 4. Medications Administered Discontinued Medications Generic Name Dose Route Start Last Admin Trade Name Freq PRN Reason Stop Dose Admin Acetaminophen 975 mg 06/03/23 22:51 06/03/23 22:58 Acetaminophen 325 Mg Tablet PO 06/03/23 22:52 975 mg ONCE ONE Administration Ibuprofen 400 mg 06/03/23 22:51 06/03/23 22:58 Ibuprofen 400 Mg Tablet PO 06/03/23 22:52 400 mg ONCE ONE Administration Medical Decision Making Medical Decision Making MDM Narrative: 67-year-old female with atraumatic elbow pain and on review of x-ray there is no evidence of fracture or dislocation. On clinical exam there is no findings to suggest a joint effusion or infection, there is full range of motion patient was provided with Tylenol and ibuprofen and discharged Differential Diagnosis Differential Diagnoses: The differential diagnosis associated with the presentation includes Please see the discussion above Admission/Observation Consideration of admission/observation: Escalation of care including admission/observation considered Please see the discussion above Radiology Impression Discussion of test interpretation with radiology: I have reviewed the radiologist's reading. Radiologist Impression: Please see the discussion above External Record Review External record reviewed: Outpatient record, Prior outpatient labs and Prior outpatient radiology Discharge Plan Discharge Clinical Impression: Elbow pain, left Patient Disposition: Home, Self-Care Instructions: Arm Pain (ED), Warm Compress or Soak (ED) Additional Instructions: 1. Resume all home medications as prescribed. 2. Recommend [id number] Tylenol/ibuprofen as needed for pain control. 3. Follow-up with your primary care provider in the next 1-2 days. Return to the ER for any worsening symptoms. Prescriptions: No Action methimazole 5 mg tablet 5 mg PO DAILY Qty: 30 1RF carbamazepine 200 mg tablet 200 mg PO DAILY carbamazepine 200 mg tablet 400 mg PO BEDTIME aripiprazole 15 mg tablet 15 mg PO DAILY hydrochlorothiazide 25 mg tablet 25 mg PO DAILY multivitamin Tablet 1 tab PO DAILY aspirin 81 mg Tablet,Delayed Release (Dr/Ec) 81 mg PO DAILY acetaminophen 500 mg Tablet 500 mg PO Q4H PRN (Reason: pain/fever) nystatin 100,000 unit/gram Powder 1 appl TOPICAL BID PRN (Reason: Rash) Rx Instructions: rash in skin folds polyethylene glycol 3350 17 gram/dose Powder 17 g PO DAILY PRN (Reason: Constipation) clotrimazole 1 % Cream 1 appl TOPICAL BID Rx Instructions: apply under breast loratadine 10 mg Tablet 10 mg PO DAILY imipramine HCl 25 mg tablet 100 mg PO BEDTIME triamcinolone acetonide 0.1 % ointment 1 appl topical BID PRN (Reason: Skin Irritation) ibuprofen 400 mg Tablet 400 mg PO TID PRN (Reason: Pain) Balmex Ointment 1 ea TOPICAL BID Rx Instructions: to rash, groin, buttocks Icy Hot 30-10 % Cream 1 appl TOPICAL BID Rx Instructions: to back and shoulders cefdinir 300 mg capsule 300 mg PO BID 7 Days Qty: 14 0RF Guaifenesin DM 10-200 mg/5 mL Liquid 7.5 ml PO Q6H PRN (Reason: Cough) benztropine 1 mg tablet 1 mg PO DAILY melatonin 10 mg Tablet 10 mg PO BEDTIME Myrbetriq 50 mg tablet extended release 24 hr 50 mg PO DAILY
[2023-06-03] MEDS: Acetaminophen 325 MG TABLET 975 MG PO (22:58)
[2023-06-03] MEDS: Ibuprofen 400 MG TABLET PO (22:58)
[2023-06-03 23:48] VITALS: BP 126/62; PULSE 71; RESP 16; O2SAT 98
== END 2023-06-03 23:51 | disposition home or self-care (01) ==
PROVIDERS: Emergency Provider Student in an Organized Health Care Education/Training Program; PCP Internal Medicine
DX: M25.522 Pain in left elbow (principal)
CPT/HCPCS: 73080; 99283; 99284

== ENCOUNTER 2023-06-23 17:30 | Outpatient (REF) | payer MEDICARE, MEDICAID, SELFPAY ==
[2023-06-24 11:57] LABS: Appearance Urine Turbid; Color Urine Yellow; Glucose Urine UA Negative (Negative); Leukocyte Esterase Urine Large (3+) (Negative); Nitrite Urine Negative (Negative); PH 6.5 (5.0-9.0); Specific Gravity - Urine <= 1.005 (1.005-1.025); UMIC TRIGGER UACC YES; Urine Blood Small (1+) (Negative); Urine Ketones Negative (Negative); Urine Protein Trace mg/dL (Neg-Trace)
[2023-06-24 12:09] LABS: Bacteria Urine 4+ (None Seen); Hyaline Casts Urine 0-2 /LPF (0-2); RBC Urine 0-2 /HPF (0-2); Squamous Epithelial Cell Urine 0-2 /HPF (0-2); UACC Culture Trigger YES; WBC Urine >50 /HPF (0-5)
== END 2023-06-23 17:31 | disposition home or self-care (01) ==
LOC: HO.HMGCLNP 17:30
PROVIDERS: PCP Internal Medicine; Visit Provider Internal Medicine
DX: R30.0 Dysuria (principal)
CPT/HCPCS: 81001; 87086; 87088; 87186

== ENCOUNTER 2023-07-20 12:07 | Outpatient (REF) | payer MEDICARE, MEDICAID, SELFPAY ==
[2023-07-20 13:11] LABS: MANUAL DIFF FLAG NO
[2023-07-20 13:40] LABS: Basophils Percent Auto 0.5 % (0-2); Eosinophils Absolute Auto 0.1 X10*3/uL (0.0-0.4); Eosinophils Percent Auto 1.5 % (0-4); Hematocrit 35.2 % (37.0-47.0); Hemoglobin 10.9 g/dl (12.0-16.0); Imm Gran Abs Auto 0.02 X10*3/uL (0.00-0.03); Imm Gran Pct Auto 0.3 % (0.0-0.4); Lymphocytes Absolute Auto 1.9 X10*3/uL (1.2-4.9); Lymphocytes Percent Auto 24.9 % (20-40); Mean Corpuscular Hemoglobin 28.3 pg (27.0-33.0); Mean Corpuscular Volume 91.4 fL (80.0-98.0); Mean Platelet Volume 9.6 fL (9.4-12.3); Monocytes Absolute Auto 0.6 X10*3/uL (0.1-1.2); Monocytes Percent Auto 7.7 % (2-11); Neutrophils Percent Auto 65.1 % (45-73); Platelet Count 280 X10*3/uL (160-400); Red Blood Count 3.85 X10*6/uL (4.20-5.50); Red Cell Distribution Width 13.5 % (11.0-16.0); White Blood Count 7.8 X10*3/uL (4.8-10.8)
[2023-07-20 14:13] LABS: Alanine Aminotransferase 17 U/L (0-31); Albumin Level 3.5 g/dL (3.5-5.0); Alkaline Phosphatase 126 U/L (39-117); Anion Gap 12 (12-20); Aspartate Amino Transferase 17 U/L (5-31); Bilirubin Total 0.2 mg/dL (0.0-1.0); Blood Urea Nitrogen 21 mg/dL (9-16); Calcium 9.4 mg/dL (8.4-10.2); Carbon Dioxide 25 mmol/L (22-29); Chloride 107 mmol/L (96-108); Estimated Glomerular Filt Rate > 60; Glucose Random 82 mg/dL (60-115); Iron 24 mcg/dL (30-160); Percent Iron Saturation 13 % (15-50); Potassium 3.9 mmol/L (3.3-5.1); Sodium 140 mmol/L (135-145); Total Iron Binding Capacity 188 mcg/dL (228-428); Total Protein 7.7 g/dL (6.5-8.0); Unsaturated Iron Binding 164 ug/dL
== END 2023-07-20 12:08 | disposition home or self-care (01) ==
LOC: HO.10HDL 12:07
PROVIDERS: Visit Provider Internal Medicine
DX: N18.9 Chronic kidney disease, unspecified (principal); D63.1 Anemia in chronic kidney disease
CPT/HCPCS: 36415; 80053; 83540; 85025

== ENCOUNTER 2023-08-14 20:15 | Emergency (ER) | payer MEDICARE, MEDICAID, SELFPAY ==
--- NOTE | ~2023-08-14 | CT_ITS ---
EXAMINATION: CT FEMUR LT W IV CONTRAST CLINICAL INFORMATION: Pain. Concern for extravasation. COMPARISON: None available. TECHNIQUE: Contiguous axial contrast-enhanced CT scan images of the left femur obtained after the intravenous administration of 85 mL of Omnipaque 350. Sagittal and coronal reformatted images also obtained. This CT examination was performed using dose optimization techniques as appropriate, variously including the following: *Automated exposure control *Adjustment of mA and/or kV according to patient size (this includes techniques or standardized protocols for targeted exams where dose is matched to indication/reason for exam; i.e. extremities or head) *Use of iterative reconstruction technique DLP: 331 mGy-cm FINDINGS: There is a knee prosthesis in place. There is mild left hip degenerative change with mild loss of joint space, mild subchondral/cystic change and mild osteophyte formation. There is no fracture. There is a dense 6 x 4 x 6.6 cm collection along the left upper thighs/proximal left hip in the region of the left greater trochanter with some associated vasculature. The muscular structures are unremarkable. There is no definitive evidence for active hemorrhage. No other collection seen. CT/CT femur LT w IV con IMPRESSION: No acute osseous abnormality. 6 x 4 x 6.6 cm dense subcutaneous collection along the proximal left thigh/hip most consistent with hemorrhage/hematoma. There is associated vasculature without definitive active hemorrhage. Recommend clinical follow-up to assess if this enlarges or remains stable as this is not an arterial phase study.
--- NOTE | ~2023-08-14 | XR_ITS ---
EXAMINATION: XR HIP, LEFT CLINICAL INFORMATION: Fall COMPARISON: None available. TECHNIQUE: Frontal view the pelvis with 2 coned in views of the left hip. FINDINGS: Femoral head is well-seated within the acetabula. Bones are normal anatomic alignment. I do not appreciate any acute appearing fracture or dislocation. Chronic bony deformity along the left iliac crest unchanged from multiple prior studies at least 2014 onward. Large amount of stool seen within the colon. Anastomotic staple line overlying the mid pelvis. Hernia mesh anchors present. XR/XR hip LT w PEL1V IMPRESSION: Chronic appearing and postoperative changes but no acute fracture or dislocation. Large amount of stool seen within the colon.
[2023-08-14 20:25] VITALS: BP 130/86; PULSE 60; O2SAT 98
[2023-08-14 20:37] VITALS: BP 142/80; PULSE 58; RESP 16; TEMP 36.8; O2SAT 100; BMI 23.8
--- NOTE | 2023-08-14 21:40 | ED.FALL ---
HPI - Fall General Chief Complaint: Fall Stated Complaint: FALL BUMP ON L THIGH Time Seen by Provider: 08/14/23 21:08 Source: patient and other Mode of arrival: EMS Limitations: no limitations History of Present Illness HPI Narrative: Patient comes to the emergency room by ambulance from a longterm. Earlier today, patient was trying to walk with her walker, a walker got away from her, patient fell and landed on her left hip. Patient did not hit her head, did not lose consciousness. Patient was able to get up and walk afterwards. The patient's caretakers noticed that the patient started to develop a large hematoma on the left thigh. Patient complaining of localized pain. Per patient's records, she is not on blood thinners Related Data Home Medications Medication Instructions Recorded Confirmed acetaminophen 500 mg tablet 500 mg PO Q4H PRN pain/fever 01/05/21 05/10/23 aripiprazole 15 mg tablet 15 mg PO DAILY 01/05/21 05/10/23 aspirin 81 mg tablet,delayed 81 mg PO DAILY 01/05/21 05/10/23 release carbamazepine 200 mg tablet 200 mg PO DAILY 01/05/21 05/10/23 carbamazepine 200 mg tablet 400 mg PO BEDTIME 01/05/21 05/10/23 clotrimazole 1 % topical cream 1 appl topical BID 01/05/21 05/10/23 hydrochlorothiazide 25 mg tablet 25 mg PO DAILY 01/05/21 05/10/23 loratadine 10 mg tablet 10 mg PO DAILY 01/05/21 05/10/23 multivitamin 1 tab PO DAILY 01/05/21 05/10/23 nystatin 100,000 unit/gram topical 1 appl topical BID PRN Rash 01/05/21 05/10/23 powder polyethylene glycol 3350 17 17 g PO DAILY PRN Constipation 01/05/21 05/10/23 gram/dose oral powder imipramine HCl 25 mg tablet 100 mg PO BEDTIME 10/10/22 05/10/23 mirabegron 50 mg tablet,extended 50 mg PO DAILY 10/10/22 05/10/23 release 24 hr (Myrbetriq) chantal estevez-zinc oxide topical 1 ea topical BID 01/24/23 05/10/23 ointment ibuprofen 400 mg tablet 400 mg PO TID PRN Pain 01/24/23 05/10/23 methyl salicylate 30 %-menthol 10 1 appl topical BID 01/24/23 05/10/23 % topical cream (Icy Hot) triamcinolone acetonide 0.1 % 1 appl topical BID PRN Skin 01/24/23 05/10/23 topical ointment Irritation benztropine 1 mg tablet 1 mg PO DAILY 05/10/23 05/10/23 dextromethorphan-guaifenesin 10 7.5 ml PO Q6H PRN Cough 05/10/23 05/10/23 mg-200 mg/5 mL oral liquid melatonin 10 mg tablet 10 mg PO BEDTIME 05/10/23 05/10/23 Previous Rx's Medication Instructions Recorded cefdinir 300 mg capsule 300 mg PO BID 7 days #14 caps 05/11/23 methimazole 5 mg tablet 5 mg PO DAILY #30 tabs 06/21/23 acetaminophen 500 mg capsule 500 mg PO Q6H PRN fever or pain 08/15/23 #20 caps Allergies Allergy/AdvReac Type Severity Reaction Status Date / Time adhesive tape Allergy Intermediate itching Verified 03/09/23 12:45 and skin redness latex Allergy Intermediate skin rash Verified 03/09/23 12:45 and itching Seasonal Allergies Allergy Itching Verified 03/09/23 12:45 weed pollen Allergy stuffy nose Verified 03/09/23 12:45 DUST Allergy Unknown ITCHY/WATERY Uncoded 03/09/23 12:45 EYES surgical paper tape Allergy Unknown rash Uncoded 03/09/23 12:45 Tide Allergy Unknown rash Uncoded 03/09/23 12:45 Review of Systems Review of Systems: Constitutional : No Weight loss, No Fever, No Chills, No Night Sweats, No Fatigue, No Malaise ENT/Mouth : No Hearing loss, No Ear Pain, No Nasal Congestion, No Sinus Pain, No Hoarseness, No sore throat, No Rhinorrhea, No Swallowing Difficulty Eyes: No Eye Pain, No Swelling, No Redness, No Foreign Body, No Discharge, No Vision Changes Cardiovascular : No Chest Pain, No SOB, No Dyspnea on Exertion, No Orthopnea, No Edema, No Palpitations Respiratory : No Cough, No Sputum, No Wheezing, No Smoke Exposure, No Dyspnea Gastrointestinal : No Nausea, No Vomiting, No Diarrhea, No Constipation, No abdominal Pain, No Hematochezia, No Melena Genitourinary : no irregular bleeding, No Dysuria, No Urinary Frequency, No Hematuria, No Urinary Incontinence, No Urgency, No Flank Pain, No Urinary Flow Changes, No Hesitancy Musculoskeletal : Complaining of left-sided growing hematoma, No joint pain, No Myalgias, No Joint Swelling Skin : No Skin Lesions, No rash Neuro : No Weakness, No Numbness, No Paresthesias, No Loss of Consciousness, No Dizziness, No Headache Psych : No Anxiety/Panic, No Depression, No SI/HI/AH/VH, No Social Issues, Heme/Lymph: No Bruising, No Bleeding,No Lymphadenopathy Endocrine : No Polyuria, No Polydipsia, No Temperature Intolerance [facility] Past Medical History Medical History Toxic multinodular goiter Toxic multinodular goiter Vitamin D deficiency Hyperthyroidism Multinodular thyroid Colon cancer Lung mass Developmental delay, mild Arthritis Surgical History History of biopsy Hx of colonic polyps Hx of colonoscopy Family History Family History Father No problems noted. Mother Medical history unknown Social History Social History Alcohol intake: never Smoked in Last 30 Days: No Use of substances other than those prescribed or required for medical reasons: No Advance Directives: No Advance Directives Information Provided: No Advance Directives Date on File: 01/05/21 Current occupational status: disabled Current occupation: right handed Physical Exam Vital Signs: Vital Signs: Last Vital Signs Temp 98.2 F 08/14/23 20:37 Pulse 58 08/14/23 20:37 Resp 17 08/15/23 01:34 BP 142/80 H 08/14/23 20:37 Pulse Ox 100 08/14/23 20:37 O2 Del Method Room Air 08/14/23 20:37 BMI result Body Mass Index 23.8 Const: Other: Appearance: Alert. Oriented X3. No acute distress. Eyes: Pupils equal, round and reactive to light. ENT: Pharynx normal. Neck: Normal inspection. Neck supple. No lymph nodes noted. No crepitus CVS: Normal heart rate and rhythm. Pulses normal. Normal S1 and S2 Respiratory: No respiratory distress. Breath sounds normal. No Wheezing. No rales Abdomen: Soft and nontender. No rigidity. No distention. Skin: Skin warm and dry. Normal skin color. Normal skin turgor. Extremities: No lower extremity edema. On the left thigh, there is an orange size hematoma. The color of the skin looks normal, no ecchymosis Neuro: Oriented X 3. No motor deficit. No sensory deficit. Moving all extremities. No slurred speech. CN 2 through 12 grossly intact Psych: calm, cooperative, normal affect Course Course Course Narrative: -will obtain lab work, baseline hematology -CT scan pending to rule out active extravasation -x-ray of the hip pending Medications Administered Discontinued Medications Generic Name Dose Route Start Last Admin Trade Name Edisonq PRN Reason Stop Dose Admin Acetaminophen 975 mg 08/14/23 21:41 08/14/23 23:24 Acetaminophen 325 Mg Tablet PO 08/14/23 21:42 975 mg ONCE ONE Administration Iohexol 85 ml 08/14/23 23:38 08/14/23 23:38 Iohexol 350 Mg/Ml 100 Ml Infus..Btl IV 08/14/23 23:39 85 ml ONCE ONE Administration Medical Decision Making Medical Decision Making [facility] Narrative: -my interpretation of labs, hematology is at baseline. -my interpretation of CT scan of the femur: There is a collection of blood in the lateral aspect of the thigh -radiology report of femur: No obvious active bleeding -my interpretation of x-ray of the hip: No fracture -patient is ambulatory with minimal assistance Differential Diagnosis Differential Diagnoses: The differential diagnosis associated with the presentation includes (After extravasation, hematoma, contusion, hip fracture) Admission/Observation Consideration of admission/observation: Escalation of care including admission/observation considered (Given patient's initial presentation, admission was considered) Lab Data [facility] Lab Attestation statement: I reviewed the patient's lab results. 08/14/23 22:10 08/14/23 22:10 Labs: Lab Results 08/14/23 08/14/23 08/14/23 Range/Units 22:10 22:10 22:10 WBC 8.7 (4.8-10.8) X10*3/uL RBC 3.17 L (4.20-5.50) X10*6/uL Hgb 9.0 L (12.0-16.0) g/dl Hct 28.1 L D (37.0-47.0) % MCV 88.6 (80.0-98.0) fL MCH 28.4 (27.0-33.0) pg MCHC 32.0 (31.0-35.0) g/dl RDW 13.7 (11.0-16.0) % Plt Count 247 (160-400) X10*3/uL MPV 9.0 L (9.4-12.3) fL Immature Gran % (Auto) 0.3 (0.0-0.4) % Neut % (Auto) 64.1 (45-73) % Lymph % (Auto) 24.1 (20-40) % Republic % (Auto) 9.0 (2-11) % Eos % (Auto) 2.0 (0-4) % Baso % (Auto) 0.5 (0-2) % Lymph # (Auto) 2.1 (1.2-4.9) X10*3/uL Republic # (Auto) 0.8 (0.1-1.2) X10*3/uL Eos # (Auto) 0.2 (0.0-0.4) X10*3/uL Baso # (Auto) 0.0 (0.0-0.2) X10*3/uL Abs Immat Gran (auto) 0.03 (0.00-0.03) X10*3/uL Absolute Neuts (auto) 5.6 (2.0-8.3) x10*3/uL Absolute Nucleated RBC 0.000 (0.0-0.012) X10*3/uL Nucleated RBC % (auto) 0.0 (0.0-0.2) /100WBC PT 12.5 Cancelled (11.1-13.3) SEC INR 1.0 Cancelled (0.9-1.1) APTT 30.1 (26.0-36.4) SEC Sodium 142 (135-145) mmol/L Potassium 3.6 (3.3-5.1) mmol/L Chloride 105 (96-108) mmol/L Carbon Dioxide 29 (22-29) mmol/L Anion Gap 12 (12-20) BUN 19 H (9-16) mg/dL Creatinine 1.05 (0.5-1.4) mg/dL Estim Creat Clear Calc 40.5 Estimated GFR 52 Random Glucose 117 H (60-115) mg/dL Calcium 8.8 D (8.4-10.2) mg/dL Total Bilirubin 0.1 (0.0-1.0) mg/dL Direct Bilirubin < 0.2 (0.0-0.5) mg/dL AST 23 (5-31) U/L ALT 15 (0-31) U/L Alkaline Phosphatase 97 (39-117) U/L Total Protein 6.5 (6.5-8.0) g/dL Albumin 3.0 L (3.5-5.0) g/dL Independent Interpretation I performed an independent interpretation of an: Plain X-Ray and CT Scan Radiology Impression Discussion of test interpretation with radiology: I have reviewed the radiologist's reading. Radiologist Impression: FINDINGS: There is a knee prosthesis in place. There is mild left hip degenerative change with mild loss of joint space, mild subchondral/cystic change and mild osteophyte formation. There is no fracture. There is a dense 6 x 4 x 6.6 cm collection along the left upper thighs/proximal left hip in the region of the left greater trochanter with some associated vasculature. The muscular structures are unremarkable. There is no definitive evidence for active hemorrhage. No other collection seen. CT/CT femur LT w IV con IMPRESSION: No acute osseous abnormality. 6 x 4 x 6.6 cm dense subcutaneous collection along the proximal left thigh/hip most consistent with hemorrhage/hematoma. There is associated vasculature without definitive active hemorrhage. Recommend clinical follow-up to assess if this enlarges or remains stable as this is not an arterial phase study. FINDINGS: Femoral head is well-seated within the acetabula. Bones are normal anatomic alignment. I do not appreciate any acute appearing fracture or dislocation. Chronic bony deformity along the left iliac crest unchanged from multiple prior studies at least 2014 onward. Large amount of stool seen within the colon. Anastomotic staple line overlying the mid pelvis. Hernia mesh anchors present. XR/XR hip LT w PEL1V IMPRESSION: Chronic appearing and postoperative changes but no acute fracture or dislocation. Large amount of stool seen within the colon. Independent Historian Clinical information obtained from an independent historian. 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 Time includes review of lab data, radiology results, discussion with consultants, and monitoring for potential decompensation. Intervention performed as documented. Discharge Plan Discharge Clinical Impression: Hematoma Patient Disposition: Home, Self-Care Instructions: Hematoma (ED) Additional Instructions: Please follow-up with your primary care physician tomorrow. If you have any worsening or new symptoms, please return to the emergency room or call 911 Prescriptions: New acetaminophen 500 mg capsule 500 mg PO Q6H PRN (Reason: fever or pain) Qty: 20 0RF No Action methimazole 5 mg tablet 5 mg PO DAILY Qty: 30 5RF carbamazepine 200 mg tablet 200 mg PO DAILY carbamazepine 200 mg tablet 400 mg PO BEDTIME aripiprazole 15 mg tablet 15 mg PO DAILY hydrochlorothiazide 25 mg tablet 25 mg PO DAILY multivitamin Tablet 1 tab PO DAILY aspirin 81 mg Tablet,Delayed Release (Dr/Ec) 81 mg PO DAILY acetaminophen 500 mg Tablet 500 mg PO Q4H PRN (Reason: pain/fever) nystatin 100,000 unit/gram Powder 1 appl TOPICAL BID PRN (Reason: Rash) Rx Instructions: rash in skin folds polyethylene glycol 3350 17 gram/dose Powder 17 g PO DAILY PRN (Reason: Constipation) clotrimazole 1 % Cream 1 appl TOPICAL BID Rx Instructions: apply under breast loratadine 10 mg Tablet 10 mg PO DAILY imipramine HCl 25 mg tablet 100 mg PO BEDTIME triamcinolone acetonide 0.1 % ointment 1 appl topical BID PRN (Reason: Skin Irritation) ibuprofen 400 mg Tablet 400 mg PO TID PRN (Reason: Pain) Balmex Ointment 1 ea TOPICAL BID Rx Instructions: to rash, groin, buttocks Icy Hot 30-10 % Cream 1 appl TOPICAL BID Rx Instructions: to back and shoulders cefdinir 300 mg capsule 300 mg PO BID 7 Days Qty: 14 0RF Guaifenesin DM 10-200 mg/5 mL Liquid 7.5 ml PO Q6H PRN (Reason: Cough) benztropine 1 mg tablet 1 mg PO DAILY melatonin 10 mg Tablet 10 mg PO BEDTIME Myrbetriq 50 mg tablet extended release 24 hr 50 mg PO DAILY
[2023-08-14 22:15] LABS: MANUAL DIFF FLAG NO
[2023-08-14 22:17] LABS: Basophils Percent Auto 0.5 % (0-2); Eosinophils Absolute Auto 0.2 X10*3/uL (0.0-0.4); Hematocrit 28.1 % (37.0-47.0); Imm Gran Abs Auto 0.03 X10*3/uL (0.00-0.03); Imm Gran Pct Auto 0.3 % (0.0-0.4); Lymphocytes Absolute Auto 2.1 X10*3/uL (1.2-4.9); Lymphocytes Percent Auto 24.1 % (20-40); Mean Corpuscular Hemoglobin 28.4 pg (27.0-33.0); Mean Corpuscular Volume 88.6 fL (80.0-98.0); Monocytes Absolute Auto 0.8 X10*3/uL (0.1-1.2); Neutrophils Absolute Auto 5.6 x10*3/uL (2.0-8.3); Neutrophils Percent Auto 64.1 % (45-73); Platelet Count 247 X10*3/uL (160-400); Red Blood Count 3.17 X10*6/uL (4.20-5.50); Red Cell Distribution Width 13.7 % (11.0-16.0); White Blood Count 8.7 X10*3/uL (4.8-10.8)
[2023-08-14 22:25] LABS: Prothrombin Time 12.5 SEC (11.1-13.3)
[2023-08-14 22:28] LABS: Partial Thromboplastin Time 30.1 SEC (26.0-36.4)
[2023-08-14 22:35] LABS: Alanine Aminotransferase 15 U/L (0-31); Alkaline Phosphatase 97 U/L (39-117); Anion Gap 12 (12-20); Aspartate Amino Transferase 23 U/L (5-31); Bilirubin Direct < 0.2 mg/dL (0.0-0.5); Bilirubin Total 0.1 mg/dL (0.0-1.0); Blood Urea Nitrogen 19 mg/dL (9-16); Calcium 8.8 mg/dL (8.4-10.2); Carbon Dioxide 29 mmol/L (22-29); Chloride 105 mmol/L (96-108); Creatinine Clr Calc Pharmacy 40.5; Estimated Glomerular Filt Rate 52; Glucose Random 117 mg/dL (60-115); Potassium 3.6 mmol/L (3.3-5.1); Sodium 142 mmol/L (135-145); Total Protein 6.5 g/dL (6.5-8.0)
[2023-08-14] MEDS: Acetaminophen 325 MG TABLET 975 MG PO (23:24)
[2023-08-14] MEDS: iohexoL 350 MG/ML 100 ML INFUS..BTL 85 ML IV (23:38)
[2023-08-15 01:34] VITALS: RESP 17
--- NOTE | 2023-08-15 02:30 | MHC.EDTECH ---
Call out to [facility] @[id number] to book BLS transport back to [facility], estimated ETA given was 30 mins per dispatch
== END 2023-08-15 02:51 | disposition home or self-care (01) ==
PROVIDERS: Emergency Provider Emergency Medicine; PCP Internal Medicine
DX: S70.02XA Contusion of left hip, initial encounter (principal); W18.30XA Fall on same level, unspecified, initial encounter; Y93.89 Activity, other specified; Y92.9 Unspecified place or not applicable; Y99.9 Unspecified external cause status; Z79.899 Other long term (current) drug therapy; E55.9 Vitamin D deficiency, unspecified
CPT/HCPCS: 36415; 73502; 73701; 80048; 80076; 85025; 85610; 85730; 99284; Q9967

== ENCOUNTER 2023-09-21 16:50 | Emergency (ER) | payer MEDICARE, MEDICAID, SELFPAY ==
[2023-09-21 17:04] VITALS: BP 137/78; BP 139/73; PULSE 63; PULSE 64; RESP 16; TEMP 36.7; O2SAT 98; O2SAT 99; BMI 21.8
--- NOTE | 2023-09-21 17:05 | ED.GENADULT ---
HPI - General Adult General Chief complaint: Urogenital-Female Stated complaint: AMS Time Seen by Provider: 09/21/23 16:56 Source: patient and EMS Mode of arrival: EMS Limitations: other ( developmentally delayed) History of Present Illness HPI narrative: patient comes to the emergency room from a half-way. According to the half-way, they were concerned that the patient had altered mental status and has urinary retention. Patient states that she does have trouble urinating, states she is able to pass urine but in small amounts. Patient has history of urinary retention. Patient does not seem after, patient knows exactly where she is, knows what she had for lunch, states that in 2 days it is her birthday which is correct. patient states she has no abdominal pain, no chest pain or shortness of breath, no hematuria or dysuria Related Data Home Medications Medication Instructions Recorded Confirmed acetaminophen 500 mg tablet 500 mg PO Q4H PRN pain/fever 01/05/21 05/10/23 aripiprazole 15 mg tablet 15 mg PO DAILY 01/05/21 05/10/23 aspirin 81 mg tablet,delayed 81 mg PO DAILY 01/05/21 05/10/23 release carbamazepine 200 mg tablet 200 mg PO DAILY 01/05/21 05/10/23 carbamazepine 200 mg tablet 400 mg PO BEDTIME 01/05/21 05/10/23 clotrimazole 1 % topical cream 1 appl topical BID 01/05/21 05/10/23 hydrochlorothiazide 25 mg tablet 25 mg PO DAILY 01/05/21 05/10/23 loratadine 10 mg tablet 10 mg PO DAILY 01/05/21 05/10/23 multivitamin 1 tab PO DAILY 01/05/21 05/10/23 nystatin 100,000 unit/gram topical 1 appl topical BID PRN Rash 01/05/21 05/10/23 powder polyethylene glycol 3350 17 17 g PO DAILY PRN Constipation 01/05/21 05/10/23 gram/dose oral powder imipramine HCl 25 mg tablet 100 mg PO BEDTIME 10/10/22 05/10/23 mirabegron 50 mg tablet,extended 50 mg PO DAILY 10/10/22 05/10/23 release 24 hr (Myrbetriq) chantal estevez-zinc oxide topical 1 ea topical BID 01/24/23 05/10/23 ointment ibuprofen 400 mg tablet 400 mg PO TID PRN Pain 01/24/23 05/10/23 methyl salicylate 30 %-menthol 10 1 appl topical BID 01/24/23 05/10/23 % topical cream (Icy Hot) triamcinolone acetonide 0.1 % 1 appl topical BID PRN Skin 01/24/23 05/10/23 topical ointment Irritation benztropine 1 mg tablet 1 mg PO DAILY 05/10/23 05/10/23 dextromethorphan-guaifenesin 10 7.5 ml PO Q6H PRN Cough 05/10/23 05/10/23 mg-200 mg/5 mL oral liquid melatonin 10 mg tablet 10 mg PO BEDTIME 05/10/23 05/10/23 Previous Rx's Medication Instructions Recorded cefdinir 300 mg capsule 300 mg PO BID 7 days #14 caps 05/11/23 methimazole 5 mg tablet 5 mg PO DAILY #30 tabs 06/21/23 acetaminophen 500 mg capsule 500 mg PO Q6H PRN fever or pain 08/15/23 #20 caps sulfamethoxazole 800 1 tab PO BID #14 tabs 09/21/23 mg-trimethoprim 160 mg tablet (Bactrim DS) Allergies Allergy/AdvReac Type Severity Reaction Status Date / Time adhesive tape Allergy Intermediate itching Verified 09/21/23 17:13 and skin redness latex Allergy Intermediate skin rash Verified 09/21/23 17:13 and itching Seasonal Allergies Allergy Itching Verified 09/21/23 17:13 weed pollen Allergy stuffy nose Verified 09/21/23 17:13 DUST Allergy Unknown ITCHY/WATERY Uncoded 03/09/23 12:45 EYES surgical paper tape Allergy Unknown rash Uncoded 03/09/23 12:45 Tide Allergy Unknown rash Uncoded 03/09/23 12:45 Review of Systems Review of Systems: Constitutional : No Weight loss, No Fever, No Chills, No Night Sweats, No Fatigue, No Malaise ENT/Mouth : No Hearing loss, No Ear Pain, No Nasal Congestion, No Sinus Pain, No Hoarseness, No sore throat, No Rhinorrhea, No Swallowing Difficulty Eyes: No Eye Pain, No Swelling, No Redness, No Foreign Body, No Discharge, No Vision Changes Cardiovascular : No Chest Pain, No SOB, No Dyspnea on Exertion, No Orthopnea, No Edema, No Palpitations Respiratory : No Cough, No Sputum, No Wheezing, No Smoke Exposure, No Dyspnea Gastrointestinal : No Nausea, No Vomiting, No Diarrhea, No Constipation, No abdominal Pain, No Hematochezia, No Melena Genitourinary : decreased urinary flow, history of retention, no hematuria or dysuria Musculoskeletal : No joint pain, No Myalgias, No Joint Swelling Skin : No Skin Lesions, No rash Neuro : No Weakness, No Numbness, No Paresthesias, No Loss of Consciousness, No Dizziness, No Headache Psych : No Anxiety/Panic, No Depression, No SI/HI/AH/VH, No Social Issues, Heme/Lymph: No Bruising, No Bleeding,No Lymphadenopathy Endocrine : No Polyuria, No Polydipsia, No Temperature Intolerance [facility] Past Medical History Medical History Toxic multinodular goiter Toxic multinodular goiter Vitamin D deficiency Hyperthyroidism Multinodular thyroid Colon cancer Lung mass Developmental delay, mild Arthritis Surgical History History of biopsy Hx of colonic polyps Hx of colonoscopy Family History Family History Father No problems noted. Mother Medical history unknown Social History Social History Alcohol intake: never Advance Directives: Yes Advance Directives on File: Yes Advance Directives Date on File: 01/05/21 Current occupational status: disabled Current occupation: right handed Physical Exam ED Vital Signs: Vital Signs - 24 hr 09/21/23 17:04 09/21/23 17:30 Temperature 98.0 F 98.0 F Pulse Rate 64 63 Respiratory Rate 16 16 Blood Pressure 137/78 125/51 L Pulse Oximetry 98 97 Oxygen Delivery Method Room Air Room Air BMI result Body Mass Index 21.8 Const Other: Appearance: Alert. Oriented X3. No acute distress. Eyes: Pupils equal, round and reactive to light. ENT: Pharynx normal. Neck: Normal inspection. Neck supple. No lymph nodes noted. No crepitus CVS: Normal heart rate and rhythm. Pulses normal. Normal S1 and S2 Respiratory: No respiratory distress. Breath sounds normal. No Wheezing. No rales Abdomen: Soft and nontender. No rigidity. No distention. no suprapubic discomfort on palpation Skin: Skin warm and dry. Normal skin color. Normal skin turgor. Extremities: No lower extremity edema. No Lacerations. No Rash Neuro: Oriented X 3. No motor deficit. No sensory deficit. Moving all extremities. No slurred speech. CN 2 through 12 grossly intact Psych: calm, cooperative, normal affect Course Course Course Narrative: - patient does not seem to be uncomfortable, no suprapubic pain tenderness on palpation. - Bladder scan pending - urinalysis and basic lab work pending. Medical Decision Making Medical Decision Making [facility] Narrative: -my interpretation of labs: Normal white blood cell count. Normal chemistry -per nurse, patient is retaining urine, greater than 500. Urinalysis positive for UTI. Patient history chronic incontinence. However, patient cannot empty out her bladder. Reviewing patient's microbiology reports, patient has resistance to ceftriaxone, possibly levofloxacin. Patient is susceptible to Bactrim. Nitrofurantoin would not help much to treat this UTI. -patient has a Davidson catheter, needs to be removed in 48 hours Differential Diagnosis Differential Diagnoses: The differential diagnosis associated with the presentation includes (UTI, pyelonephritis) Lab Data [facility] Lab Attestation statement: I reviewed the patient's lab results. 09/21/23 17:21 09/21/23 17:21 Labs: Lab Results 09/21/23 09/21/23 Range/Units 17:21 17:28 WBC 8.0 (4.8-10.8) X10*3/uL RBC 3.11 L (4.20-5.50) X10*6/uL Hgb 8.6 L (12.0-16.0) g/dl Hct 27.5 L (37.0-47.0) % MCV 88.4 (80.0-98.0) fL MCH 27.7 (27.0-33.0) pg MCHC 31.3 (31.0-35.0) g/dl RDW 14.0 (11.0-16.0) % Plt Count 269 (160-400) X10*3/uL MPV 9.2 L (9.4-12.3) fL Immature Gran % (Auto) 0.2 (0.0-0.4) % Neut % (Auto) 68.0 (45-73) % Lymph % (Auto) 20.3 (20-40) % [place] % (Auto) 9.0 (2-11) % Eos % (Auto) 2.0 (0-4) % Baso % (Auto) 0.5 (0-2) % Lymph # (Auto) 1.6 (1.2-4.9) X10*3/uL [place] # (Auto) 0.7 (0.1-1.2) X10*3/uL Eos # (Auto) 0.2 (0.0-0.4) X10*3/uL Baso # (Auto) 0.0 (0.0-0.2) X10*3/uL Abs Immat Gran (auto) 0.02 (0.00-0.03) X10*3/uL Absolute Neuts (auto) 5.5 (2.0-8.3) x10*3/uL Absolute Nucleated RBC 0.000 (0.0-0.012) X10*3/uL Nucleated RBC % (auto) 0.0 (0.0-0.2) /100WBC Sodium 142 (135-145) mmol/L Potassium 4.0 (3.3-5.1) mmol/L Chloride 108 (96-108) mmol/L Carbon Dioxide 25 (22-29) mmol/L Anion Gap 13 (12-20) BUN 16 (9-16) mg/dL Creatinine 1.12 (0.5-1.4) mg/dL Estim Creat Clear Calc 43.2 Estimated GFR 48 Random Glucose 86 (60-115) mg/dL Calcium 8.6 (8.4-10.2) mg/dL Total Bilirubin 0.2 (0.0-1.0) mg/dL Direct Bilirubin < 0.2 (0.0-0.5) mg/dL AST 20 (5-31) U/L ALT 20 (0-31) U/L Alkaline Phosphatase 104 (39-117) U/L Total Protein 6.9 (6.5-8.0) g/dL Albumin 3.0 L (3.5-5.0) g/dL Urine Color Yellow Urine Appearance Cloudy Urine pH 5.5 (5.0-9.0) Ur Specific [place] 1.010 (1.005-1.025) Urine Protein Trace (Neg-Trace) mg/dL Urine Glucose (UA) Negative (Negative) mg/dL Urine Ketones Negative (Negative) mg/dL Urine Blood Small (1+) H (Negative) Urine Nitrite Positive H (Negative) Ur Leukocyte Esterase Large (3+) H (Negative) Urine RBC 0-2 (0-2) /HPF Urine WBC >50 H (0-5) /HPF Ur Squamous Epith Cells 0-2 (0-2) /HPF Urine Bacteria 4+ (None Seen) Hyaline Casts 0-2 (0-2) /LPF Discharge Plan Discharge Clinical Impression: Acute UTI, Acute urinary retention Patient Disposition: Home, Self-Care Instructions: Urinary Tract Infection in Women (ED), Davidson Catheter Placement and Care (ED), Acute Urinary Retention in Women (ED) Additional Instructions: Please follow-up with your primary care physician tomorrow. If you have any worsening or new symptoms, please return to the emergency room or call 911 Prescriptions: New sulfamethoxazole-trimethoprim [Bactrim DS] 800-160 mg tablet 1 tab PO BID Qty: 14 0RF No Action methimazole 5 mg tablet 5 mg PO DAILY Qty: 30 5RF carbamazepine 200 mg tablet 200 mg PO DAILY carbamazepine 200 mg tablet 400 mg PO BEDTIME aripiprazole 15 mg tablet 15 mg PO DAILY hydrochlorothiazide 25 mg tablet 25 mg PO DAILY multivitamin Tablet 1 tab PO DAILY aspirin 81 mg Tablet,Delayed Release (Dr/Ec) 81 mg PO DAILY acetaminophen 500 mg Tablet 500 mg PO Q4H PRN (Reason: pain/fever) nystatin 100,000 unit/gram Powder 1 appl TOPICAL BID PRN (Reason: Rash) Rx Instructions: rash in skin folds polyethylene glycol 3350 17 gram/dose Powder 17 g PO DAILY PRN (Reason: Constipation) clotrimazole 1 % Cream 1 appl TOPICAL BID Rx Instructions: apply under breast loratadine 10 mg Tablet 10 mg PO DAILY imipramine HCl 25 mg tablet 100 mg PO BEDTIME triamcinolone acetonide 0.1 % ointment 1 appl topical BID PRN (Reason: Skin Irritation) ibuprofen 400 mg Tablet 400 mg PO TID PRN (Reason: Pain) Balmex Ointment 1 ea TOPICAL BID Rx Instructions: to rash, groin, buttocks Icy Hot 30-10 % Cream 1 appl TOPICAL BID Rx Instructions: to back and shoulders cefdinir 300 mg capsule 300 mg PO BID 7 Days Qty: 14 0RF Guaifenesin DM 10-200 mg/5 mL Liquid 7.5 ml PO Q6H PRN (Reason: Cough) benztropine 1 mg tablet 1 mg PO DAILY melatonin 10 mg Tablet 10 mg PO BEDTIME acetaminophen 500 mg capsule 500 mg PO Q6H PRN (Reason: fever or pain) Qty: 20 0RF Myrbetriq 50 mg tablet extended release 24 hr 50 mg PO DAILY
[2023-09-21 17:24] LABS: MANUAL DIFF FLAG NO
[2023-09-21 17:26] LABS: Basophils Percent Auto 0.5 % (0-2); Eosinophils Absolute Auto 0.2 X10*3/uL (0.0-0.4); Hematocrit 27.5 % (37.0-47.0); Hemoglobin 8.6 g/dl (12.0-16.0); Imm Gran Abs Auto 0.02 X10*3/uL (0.00-0.03); Imm Gran Pct Auto 0.2 % (0.0-0.4); Lymphocytes Absolute Auto 1.6 X10*3/uL (1.2-4.9); Lymphocytes Percent Auto 20.3 % (20-40); Mean Corpuscular HGB Conc 31.3 g/dl (31.0-35.0); Mean Corpuscular Hemoglobin 27.7 pg (27.0-33.0); Mean Corpuscular Volume 88.4 fL (80.0-98.0); Mean Platelet Volume 9.2 fL (9.4-12.3); Monocytes Absolute Auto 0.7 X10*3/uL (0.1-1.2); Neutrophils Absolute Auto 5.5 x10*3/uL (2.0-8.3); Platelet Count 269 X10*3/uL (160-400); Red Blood Count 3.11 X10*6/uL (4.20-5.50)
[2023-09-21 17:30] VITALS: BP 125/51; PULSE 63; RESP 16; TEMP 36.7; O2SAT 97
--- NOTE | 2023-09-21 17:30 | MHC.EDTECH ---
Patient was biba ,from senior care ,vitals taken ,bladder scan done ,Provider and rn aware of bladder scan result ,blood drawn ,urine sample collected and sent to lab ,Patient was place change roof bolter into hospital attire ,Patient was straight cath by RN 650 out put ,Patient comfortable watching television ,Call carrero within Pt reach .
[2023-09-21 17:39] LABS: Appearance Urine Cloudy; Color Urine Yellow; Glucose Urine UA Negative (Negative); Leukocyte Esterase Urine Large (3+) (Negative); Nitrite Urine Positive (Negative); PH 5.5 (5.0-9.0); UMIC TRIGGER UACC YES; Urine Blood Small (1+) (Negative); Urine Ketones Negative (Negative); Urine Protein Trace mg/dL (Neg-Trace)
--- NOTE | 2023-09-21 17:46 | PC.NURSE ---
pt alert, oriented to self and place. pt from residential, she was brought to ed via ambulance for eval of urinary retention and increased confusion. per ems, residential staff reported that the pt told them she only urinated a small amount today. pt had a colonoscopy Monday and the staff thinks the confusion is related to the anesthesia. pt was bladder scanned at 534. straight cath done as ordered. pt changed into hospital attire. no complaints at this time.
[2023-09-21 17:48] LABS: Alanine Aminotransferase 20 U/L (0-31); Alkaline Phosphatase 104 U/L (39-117); Anion Gap 13 (12-20); Aspartate Amino Transferase 20 U/L (5-31); Bilirubin Direct < 0.2 mg/dL (0.0-0.5); Bilirubin Total 0.2 mg/dL (0.0-1.0); Blood Urea Nitrogen 16 mg/dL (9-16); Calcium 8.6 mg/dL (8.4-10.2); Carbon Dioxide 25 mmol/L (22-29); Chloride 108 mmol/L (96-108); Creatinine Clr Calc Pharmacy 43.2; Estimated Glomerular Filt Rate 48; Glucose Random 86 mg/dL (60-115); Sodium 142 mmol/L (135-145); Total Protein 6.9 g/dL (6.5-8.0)
[2023-09-21 17:56] LABS: Bacteria Urine 4+ (None Seen); Hyaline Casts Urine 0-2 /LPF (0-2); RBC Urine 0-2 /HPF (0-2); Squamous Epithelial Cell Urine 0-2 /HPF (0-2); UACC Culture Trigger YES; WBC Urine >50 /HPF (0-5)
[2023-09-21] MEDS: Sulfamethox/Trimeth 800/160 TABLET 1 TAB PO (19:09)
--- NOTE | 2023-09-21 19:20 | PC.NURSE ---
iv removed. pt tolerated well
== END 2023-09-21 19:51 | disposition home or self-care (01) ==
PROVIDERS: Emergency Provider Emergency Medicine; PCP Internal Medicine
DX: N39.0 Urinary tract infection, site not specified (principal); R33.9 Retention of urine, unspecified; R41.82 Altered mental status, unspecified; Z79.899 Other long term (current) drug therapy
CPT/HCPCS: 36415; 51702; 51798; 80048; 80076; 81001; 85025; 87086; 87088; 87186; 99283; 99285

== ENCOUNTER 2023-10-02 09:17 | Inpatient (IN) | payer MEDICARE, MEDICAID, SELFPAY ==
--- NOTE | ~2023-10-02 | CT_ITS ---
EXAMINATION: CT ABDOMEN AND PELVIS WITHOUT CONTRAST CLINICAL INFORMATION: Recurrent urinary tract infections. Altered sensorium. COMPARISON: Pelvic ultrasound dated 07/06/[address] abdomen/pelvis dated 08/13/2020. TECHNIQUE: Multidetector volumetric imaging was performed from the superior aspect of the liver through the pubic symphysis. Sagittal and coronal reformatted images were obtained on the technologist's workstation. This CT examination was performed using dose optimization techniques as appropriate, variously including the following: *Automated exposure control *Adjustment of mA and/or kV according to patient size (this includes techniques or standardized protocols for targeted exams where dose is matched to indication/reason for exam; i.e. extremities or head) *Use of iterative reconstruction technique DLP: 370 mGy-cm FINDINGS: LUNG BASES: Partially visualized cardiomegaly, significantly increased when compared to the prior CT. Mild left basilar atelectasis. LIVER, GALLBLADDER, AND BILIARY TREE: The liver is normal in size, shape, and attenuation. No focal hepatic lesion or biliary ductal dilatation is present. Grossly unremarkable. Evaluation is somewhat limited without contrast and due to patient motion. PANCREAS: Grossly unremarkable. Evaluation is limited without contrast. SPLEEN: Unremarkable. ADRENAL GLANDS: Grossly unremarkable. KIDNEYS AND URETERS: [id number] bilateral hydroureteronephrosis, new when compared to the prior examination. Demonstration of a simple left renal cyst. Otherwise, evaluation of renal parenchyma is limited without contrast. No renal or ureteral stone. BLADDER: Prominent dilatation of the urinary bladder. Findings are concerning for bladder outlet obstruction. GASTROINTESTINAL TRACT: Evaluation is limited without IV or oral contrast. Surgical clips redemonstrated in the region of the rectosigmoid junction. Largely nondistended left lower quadrant bowel loops. Severe stool burden throughout the colon to the level of a left-sided anastomosis. The small bowel loops are largely nondistended. Findings could indicate partial obstruction at the anastomosis site. No significant pneumatosis. Otherwise, evaluation of the bowel wall is severely limited. No large mass or organized fluid collection, however, evaluation is limited due to lack of contrast. Trace pelvic free fluid. No intra-abdominal free air. ABDOMINAL WALL: Postsurgical change along the anterior abdominal wall. No recurrent hernia. LYMPH NODES: Evaluation is significantly limited without IV contrast. No large lymphadenopathy. VASCULAR: No abdominal aortic dilatation. Scattered atherosclerotic calcifications. PELVIC VISCERA: The uterus is atrophic or surgically absent. OSSEOUS STRUCTURES: No acute osseous abnormality. CT/CT abdomen pelvis wo IV con IMPRESSION: 1. [id number]-[id number] bilateral hydroureteronephrosis, new when compared to the prior examination. Prominent dilatation of the urinary bladder. Findings are concerning for bladder outlet obstruction. No renal or ureteral stone. 2. Severe stool burden throughout the colon to the level of a left-sided anastomosis. The small bowel loops are largely nondistended. Findings could indicate partial obstruction at the anastomosis site. No significant pneumatosis. Otherwise, evaluation of the bowel wall is severely limited without IV or oral contrast. 3. Trace pelvic free fluid. No intra-abdominal free air. 4. Partially visualized cardiomegaly, significantly increased when compared to the prior CT. Fleischner guidelines were followed.
--- NOTE | ~2023-10-02 | XR_ITS ---
EXAMINATION: XR ABDOMEN KUB CLINICAL INDICATION: Severe constipation and abdominal pain. COMPARISON: CT abdomen and pelvis from 10/02/2023. TECHNIQUE: AP view of the abdomen. FINDINGS: Lung bases are unremarkable. Large amount fecal material is present in the colon. The visualized bowel loops are in the normal size range. No evidence of pneumoperitoneum on these views obtained with the patient in supine position. Multiple metallic tacks from mesh placement of the abdominal wall. A cluster of small anastomotic yanelis is present in the rectosigmoid region. Surgical clip is present in the left upper quadrant of the abdomen. No acute osseous abnormality. XR/XR KUB IMPRESSION: Large amount fecal material is present in the colon. Findings are suggestive of constipation. No radiographic evidence of bowel obstruction.
--- NOTE | ~2023-10-02 | XR_ITS ---
EXAMINATION: XR CHEST CLINICAL INFORMATION: Altered mental status. COMPARISON: Most recent chest radiograph dated 10/08/2022. TECHNIQUE: Frontal view of the chest was obtained. FINDINGS: The lungs are clear. The cardiomediastinal silhouette is normal in size. There is no pleural effusion or pneumothorax. No acute osseous abnormality. XR/XR chest 1V IMPRESSION: No acute cardiopulmonary findings.
[2023-10-02 09:32] VITALS: BP 149/76; BP 157/75; PULSE 59; PULSE 61; RESP 16; TEMP 37; O2SAT 100; O2SAT 97; BMI 49.2
--- NOTE | 2023-10-02 10:37 | ED_ITS ---
HPI - Female Genitourinary General Chief complaint: Urogenital-Female Stated complaint: AMS,RECENT UTI FROM [facility] PER EMS Time Seen by Provider: 10/02/23 10:21 Source: patient, EMS, RN notes reviewed and old records reviewed Mode of arrival: EMS History of Present Illness HPI Narrative: 68-year-old female with a past medical history of hyperthyroidism, lung mass, developmental delay, arthritis, frequent UTIs, most recently diagnosed on 09/21 in our ED BIBA from [facility] for increased agitation/behaviors & suprapubic abdominal pain. halfway staff admits patient was treated with Bactrim on 09/21, changed to Macrobid on 09/27 based on Urine Cx which patient is currently taking with 2 more days worth of medication without symptomatic improvement. Reports symptoms are typical for her when she has a UTI. No reported fever. MD elicited complaint: UTI Related Data Home Medications Medication Instructions Recorded Confirmed acetaminophen 500 mg tablet 500 mg PO Q4H PRN pain/fever 01/05/21 05/10/23 aripiprazole 15 mg tablet 15 mg PO DAILY 01/05/21 05/10/23 aspirin 81 mg tablet,delayed 81 mg PO DAILY 01/05/21 05/10/23 release carbamazepine 200 mg tablet 200 mg PO DAILY 01/05/21 05/10/23 carbamazepine 200 mg tablet 400 mg PO BEDTIME 01/05/21 05/10/23 clotrimazole 1 % topical cream 1 appl topical BID 01/05/21 05/10/23 hydrochlorothiazide 25 mg tablet 25 mg PO DAILY 01/05/21 05/10/23 loratadine 10 mg tablet 10 mg PO DAILY 01/05/21 05/10/23 multivitamin 1 tab PO DAILY 01/05/21 05/10/23 nystatin 100,000 unit/gram topical 1 appl topical BID PRN Rash 01/05/21 05/10/23 powder polyethylene glycol 3350 17 17 g PO DAILY PRN Constipation 01/05/21 05/10/23 gram/dose oral powder imipramine HCl 25 mg tablet 100 mg PO BEDTIME 10/10/22 05/10/23 mirabegron 50 mg tablet,extended 50 mg PO DAILY 10/10/22 05/10/23 release 24 hr (Myrbetriq) chantal estevez-zinc oxide topical 1 ea topical BID 01/24/23 05/10/23 ointment ibuprofen 400 mg tablet 400 mg PO TID PRN Pain 01/24/23 05/10/23 methyl salicylate 30 %-menthol 10 1 appl topical BID 01/24/23 05/10/23 % topical cream (Icy Hot) triamcinolone acetonide 0.1 % 1 appl topical BID PRN Skin 01/24/23 05/10/23 topical ointment Irritation benztropine 1 mg tablet 1 mg PO DAILY 05/10/23 05/10/23 dextromethorphan-guaifenesin 10 7.5 ml PO Q6H PRN Cough 05/10/23 05/10/23 mg-200 mg/5 mL oral liquid melatonin 10 mg tablet 10 mg PO BEDTIME 05/10/23 05/10/23 Previous Rx's Medication Instructions Recorded cefdinir 300 mg capsule 300 mg PO BID 7 days #14 caps 05/11/23 methimazole 5 mg tablet 5 mg PO DAILY #30 tabs 06/21/23 acetaminophen 500 mg capsule 500 mg PO Q6H PRN fever or pain 08/15/23 #20 caps sulfamethoxazole 800 1 tab PO BID #14 tabs 09/21/23 mg-trimethoprim 160 mg tablet (Bactrim DS) Allergies Allergy/AdvReac Type Severity Reaction Status Date / Time adhesive tape Allergy Intermediate itching Verified 09/21/23 17:13 and skin redness latex Allergy Intermediate skin rash Verified 09/21/23 17:13 and itching Seasonal Allergies Allergy Itching Verified 09/21/23 17:13 weed pollen Allergy stuffy nose Verified 09/21/23 17:13 DUST Allergy Unknown ITCHY/WATERY Uncoded 03/09/23 12:45 EYES surgical paper tape Allergy Unknown rash Uncoded 03/09/23 12:45 Tide Allergy Unknown rash Uncoded 03/09/23 12:45 Review of Systems 2 Review of Systems: Constitutional: No Fever Gastrointestinal: No Nausea, No Vomiting, No Diarrhea, No Constipation, + Abdominal pain Genitourinary: No Dysuria, No Hematuria Neuro: +AMS, +Agitation ROS limited due to patient's acute mental status Yes all other systems are reviewed and are negative Constitutional: Constitutional: Reports as per [facility] Past Medical History Attestation statement: The following information was validated with the patient. Source: old records reviewed Medical History Toxic multinodular goiter Toxic multinodular goiter Vitamin D deficiency Hyperthyroidism Multinodular thyroid Colon cancer Lung mass Developmental delay, mild Arthritis Surgical History History of biopsy Hx of colonic polyps Hx of colonoscopy Family History Family History Father No problems noted. Mother Medical history unknown Social History Social History Alcohol intake: never Advance Directives: Yes Advance Directives on File: Yes Advance Directives Date on File: 01/05/21 Current occupational status: disabled Current occupation: right handed Physical Exam 2 Vital Signs: Vital Signs: Last Vital Signs Temp 98.6 F 10/02/23 09:32 Pulse 68 10/02/23 13:41 Resp 16 10/02/23 13:41 BP 157/72 H 10/02/23 13:41 Pulse Ox 100 10/02/23 09:32 O2 Del Method Room Air 10/02/23 09:32 BMI result Body Mass Index 49.2 Const: Other: agitated, yelling out at staff General: alert and awake Orientation/consciousness: oriented to person and oriented to place Limitations: altered mental status HEENT: Head: Yes normal to inspection and Yes atraumatic Ears: hearing grossly normal bilaterally General nose exam: Normal external nose present Face and sinus: Yes normal facial exam Eyes: General: appearance normal, both eyes and all related structures EOM: EOMs intact bilaterally Neck: Neck: Yes normal visual inspection and Yes no meningeal signs Resp: Effort & Inspection: normal respiratory effort and no respiratory distress Auscultation: clear to auscultation bilaterally Cardio: Rate: regular rate Heart sounds: S1 normal heart sound present and S2 normal heart sound present GI: Inspection: Yes normal to inspection Palpation (GI): Soft to palpation, nontender, no guarding and not rigid : General: Yes no CVA tenderness Back/Spine/Pelvis: Back: no CVA tenderness Skin: Rashes: no rashes Wounds: no wounds Neuro: General: oriented to person, oriented to place, tone normal, moves all extremities and no meningeal signs Cranial nerves: Yes CN's II-XII intact bilaterally Gait exam (Neuro): Normal gait present Extrem: General: Yes normal to inspection Course Course Course Narrative: -1211--no leukocytosis. H/H at patient's baseline. labs otherwise reassurring -COVID/Flu negative -Infectious Disease, Dr. Trinidad consulted due to recent urine culture/multiple antibiotics, recommending finishing Macrobid, however doubt urine is cause of continued agitation. XR chest 1V IMPRESSION: No acute cardiopulmonary findings. CT abdomen pelvis wo IV con IMPRESSION: 1. Cebdsxaf-[id number]-bvowwa bilateral hydroureteronephrosis, new when compared to the prior examination. Prominent dilatation of the urinary bladder. Findings are concerning for bladder outlet obstruction. No renal or ureteral stone. 2. Severe stool burden throughout the colon to the level of a left-sided anastomosis. The small bowel loops are largely nondistended. Findings could indicate partial obstruction at the anastomosis site. No significant pneumatosis. Otherwise, evaluation of the bowel wall is severely limited without IV or oral contrast. 3. Trace pelvic free fluid. No intra-abdominal free air. 4. Partially visualized cardiomegaly, significantly increased when compared to the prior CT. Fleischner guidelines were followed. > no appreciable stool in rectal exam. Will consult General surgery, Dr. Patel and place Davidson catheter >> immediate 800 cc urinary output once fully place, Davidson clamped to avoid rebound hypotension. Will continue to slowly release -Dr. Patel reviewed CAT scan reports right colon is full of stool the gas is seen be on the rectum were consistent with chronic constipation rather than acute issue, recommended bowel regimen and if obstructive symptoms developed will need GI to evaluate anastomosis >> plan to admit for further management Medical Decision Making Medical Decision Making MDM Narrative: 68-year-old female with a past medical history of hyperthyroidism, lung mass, developmental delay, arthritis, frequent UTIs, most recently diagnosed on 09/21 in our ED BIBA from [facility] for increased agitation/behaviors & suprapubic abdominal pain. On exam vitals stable, NAD, nontoxic appearing, agitated, yelling out, abdomen soft/nontender. Redirectable. Labs and culture reviewed from 09/21, culture grew E coli ESBL resistant to ceftriaxone, Bactrim, and susceptible to Macrobid. Concern for continued UTI vs metabolic/infectious etiologies. Lower suspicion for ICH/CVA Plan: Labs, UA, CXR, CTAP Please refer to course for remaining clinical decision making, interpretation of labs/imaging results, and discussions with consultants and/or family members. Differential Diagnosis Differential Diagnoses: The differential diagnosis associated with the presentation includes As above Admission/Observation Consideration of admission/observation: Escalation of care including admission/observation considered Consult Healthcare Provider Management of the patient was discussed with: Hospitalist and Yard Spotter (general surgery & ID) Lab Data MDM Lab Attestation statement: I reviewed the patient's lab results. 10/02/23 11:01 10/02/23 11:01 Labs: Lab Results 10/02/23 10/02/23 10/02/23 Range/Units 10:56 11:01 13:43 WBC 7.3 (4.8-10.8) X10*3/uL RBC 3.39 L (4.20-5.50) X10*6/uL Hgb 9.5 L (12.0-16.0) g/dl Hct 30.2 L (37.0-47.0) % MCV 89.1 (80.0-98.0) fL MCH 28.0 (27.0-33.0) pg MCHC 31.5 (31.0-35.0) g/dl RDW 15.3 (11.0-16.0) % Plt Count 299 (160-400) X10*3/uL MPV 9.2 L (9.4-12.3) fL Immature Gran % (Auto) 0.3 (0.0-0.4) % Neut % (Auto) 67.0 (45-73) % Lymph % (Auto) 23.6 (20-40) % [place] % (Auto) 7.5 (2-11) % Eos % (Auto) 1.2 (0-4) % Baso % (Auto) 0.4 (0-2) % Lymph # (Auto) 1.7 (1.2-4.9) X10*3/uL [place] # (Auto) 0.6 (0.1-1.2) X10*3/uL Eos # (Auto) 0.1 (0.0-0.4) X10*3/uL Baso # (Auto) 0.0 (0.0-0.2) X10*3/uL Abs Immat Gran (auto) 0.02 (0.00-0.03) X10*3/uL Absolute Neuts (auto) 4.9 (2.0-8.3) x10*3/uL Absolute Nucleated RBC 0.000 (0.0-0.012) X10*3/uL Nucleated RBC % (auto) 0.0 (0.0-0.2) /100WBC Sodium 141 (135-145) mmol/L Potassium 4.6 (3.3-5.1) mmol/L Chloride 106 (96-108) mmol/L Carbon Dioxide 26 (22-29) mmol/L Anion Gap 14 (12-20) BUN 19 H (9-16) mg/dL Creatinine 0.78 (0.5-1.4) mg/dL Estim Creat Clear Calc 84.7 Estimated GFR > 60 Random Glucose 96 (60-115) mg/dL Calcium 8.9 (8.4-10.2) mg/dL Magnesium 1.9 (1.6-2.6) mg/dL Total Bilirubin 0.2 (0.0-1.0) mg/dL Direct Bilirubin < 0.2 (0.0-0.5) mg/dL AST 23 (5-31) U/L ALT 19 (0-31) U/L Alkaline Phosphatase 102 (39-117) U/L Total Protein 7.1 (6.5-8.0) g/dL Albumin 3.3 L (3.5-5.0) g/dL Lipase 59 (8-78) U/L Urine Color Dark Yellow Urine Appearance Clear Urine pH 7.0 (5.0-9.0) Ur Specific [place] 1.010 (1.005-1.025) Urine Protein Negative (Neg-Trace) mg/dL Urine Glucose (UA) Negative (Negative) mg/dL Urine Ketones Negative (Negative) mg/dL Urine Blood Negative (Negative) Urine Nitrite Negative (Negative) Ur Leukocyte Esterase Negative (Negative) COVID-19 ([facility]INA) Negative (Negative) COVID-19 Clin Com See Note Influenza Type A (LENORE) Negative (Negative) Influenza Type B (LENORE) Negative (Negative) Influenza A & B Note See Note Independent Interpretation I performed an independent interpretation of an: Plain X-Ray and CT Scan Radiology Impression Discussion of test interpretation with radiology: I have reviewed the radiologist's reading. Independent Historian Clinical information obtained from an independent historian. History obtained from or confirmed by: EMS and Other External Record Review External record reviewed: Inpatient record, Office record, Outpatient record, Prior outpatient labs, Prior outpatient radiology, Primary care record and Outside ED record Tests considered The following testing was considered but not selected: As above Prescription Management I considered prescription management with: Pain Medication and Antibiotic Chronic Conditions Patient?s care impacted by: Other Critical Care Time Critical Care Time Critical Care Time: Yes Total Critical Care Time: 50 Attestation: I have personally provided critical care time exclusive of time spent on separately billable procedures. Time includes review of lab data, radiology results, discussion with consultants, and monitoring for potential decompensation. Intervention performed as documented. Discharge Plan Discharge Clinical Impression: Bladder outlet obstruction, Partial small bowel obstruction Patient Disposition: Admitted As Inpatient
[2023-10-02 11:06] LABS: MANUAL DIFF FLAG NO
[2023-10-02 11:08] LABS: Basophils Percent Auto 0.4 % (0-2); Eosinophils Absolute Auto 0.1 X10*3/uL (0.0-0.4); Eosinophils Percent Auto 1.2 % (0-4); Hematocrit 30.2 % (37.0-47.0); Hemoglobin 9.5 g/dl (12.0-16.0); Imm Gran Abs Auto 0.02 X10*3/uL (0.00-0.03); Imm Gran Pct Auto 0.3 % (0.0-0.4); Lymphocytes Absolute Auto 1.7 X10*3/uL (1.2-4.9); Lymphocytes Percent Auto 23.6 % (20-40); Mean Corpuscular HGB Conc 31.5 g/dl (31.0-35.0); Mean Corpuscular Volume 89.1 fL (80.0-98.0); Mean Platelet Volume 9.2 fL (9.4-12.3); Monocytes Absolute Auto 0.6 X10*3/uL (0.1-1.2); Monocytes Percent Auto 7.5 % (2-11); Neutrophils Absolute Auto 4.9 x10*3/uL (2.0-8.3); Platelet Count 299 X10*3/uL (160-400); Red Blood Count 3.39 X10*6/uL (4.20-5.50); Red Cell Distribution Width 15.3 % (11.0-16.0); White Blood Count 7.3 X10*3/uL (4.8-10.8)
[2023-10-02 11:21] LABS: IDNOW Serial# 58CA691E
[2023-10-02 11:22] LABS: COVID-19 Test Negative (Negative)
[2023-10-02 11:28] LABS: Alanine Aminotransferase 19 U/L (0-31); Albumin Level 3.3 g/dL (3.5-5.0); Alkaline Phosphatase 102 U/L (39-117); Anion Gap 14 (12-20); Aspartate Amino Transferase 23 U/L (5-31); Bilirubin Direct < 0.2 mg/dL (0.0-0.5); Bilirubin Total 0.2 mg/dL (0.0-1.0); Blood Urea Nitrogen 19 mg/dL (9-16); Calcium 8.9 mg/dL (8.4-10.2); Carbon Dioxide 26 mmol/L (22-29); Chloride 106 mmol/L (96-108); Creatinine Clr Calc Pharmacy 84.7; Estimated Glomerular Filt Rate > 60; Glucose Random 96 mg/dL (60-115); Lipase 59 U/L (8-78); Magnesium 1.9 mg/dL (1.6-2.6); Potassium 4.6 mmol/L (3.3-5.1); Sodium 141 mmol/L (135-145); Total Protein 7.1 g/dL (6.5-8.0)
[2023-10-02 11:32] LABS: IDNOW Serial# 9DB6401D; Influenza A Negative (Negative); Influenza B2 Negative (Negative)
--- NOTE | 2023-10-02 13:30 | PC.NURSE ---
patient awake and alert. skin pwd, resp even and non labored. yelling out while resting on stretcher. patient brought into private room, rectal exam performed by Elba CAIN w/ ja RN present. patient was changed into hospital attire at this time, bruise and erythema noted to left thigh, PA aware. urinary catheter to be placed.
[2023-10-02 13:41] VITALS: BP 157/72; PULSE 68; RESP 16
[2023-10-02 13:50] LABS: Appearance Urine Clear; Color Urine Dark Yellow; Glucose Urine UA Negative (Negative); Leukocyte Esterase Urine Negative (Negative); Nitrite Urine Negative (Negative); Urine Blood Negative (Negative); Urine Ketones Negative (Negative); Urine Protein Negative (Neg-Trace)
--- NOTE | 2023-10-02 15:11 | PM.IMHP ---
History of Present Illness Date of Service: 10/02/23 Attending physician on admission: Nydia Ayala Chief Complaint: aggitation 68-year-old female with history of toxic multinodular goiter, vitamin-D deficiency, hyperthyroidism on methimazole, history ESBL E coli UTI, history colon cancer s/p colectomy with anastomosis, lung mass, developmental delay presented to the ED earlier today via ambulance from custodial where she resides for evaluation of ongoing agitation. The patient was diagnosed with UTI in 09/21 and discharged from our ED on Bactrim. Urine culture grew ESBL E coli and antibiotics were changed to Macrobid which she has 2 days left of. Per custodial staff, increased agitation is typically a sign of UTI in the patient. Despite treatment however, patient continues to be agitated so she was brought in for further evaluation. Of note, patient has also not had a bowel movement in 6 days. She is not a good historian secondary to developmental delay and history is obtained from ED staff and custodial staff. On arrival, vital stable. No leukocytosis. Renal function and electrolyte levels normal. Urinalysis unremarkable. Negative for COVID-19, influenza. CXR negative for any acute cardiopulmonary abnormality. CT abdomen/pelvis shows moderate to severe bilateral hydronephrosis which is new as well as prominent dilatation of the urinary bladder concerning for bladder outlet obstruction without evidence of renal or ureteral stone. There is also severe stool burden throughout the colon to the level of the left-sided anastomosis with nondistended small bowel loops possibly indicative of partial bowel obstruction at the anastomosis site without significant pneumatosis. ED provider did discuss case with ID recommending completing course of Macrobid for ESBL E coli UTI. Placement of christopher catheter yielded 1L urine. Review of Systems Review of Systems: Yes Unobtainable due to mental status [facility] Medical History (Updated 10/02/23 @ 15:33 by PAYTON Barboza) Toxic multinodular goiter Toxic multinodular goiter Vitamin D deficiency Hyperthyroidism Multinodular thyroid Colon cancer Lung mass Developmental delay, mild Arthritis Family History Father No problems noted. Mother Medical history unknown Surgical History History of biopsy Hx of colonic polyps Hx of colonoscopy Social History Alcohol intake: never Advance Directives: Yes Advance Directives on File: Yes Advance Directives Date on File: 01/05/21 Current occupational status: disabled Current occupation: right handed Meds Allergies Allergy/AdvReac Type Severity Reaction Status Date / Time adhesive tape Allergy Intermediate itching Verified 09/21/23 17:13 and skin redness latex Allergy Intermediate skin rash Verified 09/21/23 17:13 and itching Seasonal Allergies Allergy Itching Verified 09/21/23 17:13 weed pollen Allergy stuffy nose Verified 09/21/23 17:13 DUST Allergy Unknown ITCHY/WATERY Uncoded 03/09/23 12:45 EYES surgical paper tape Allergy Unknown rash Uncoded 03/09/23 12:45 Tide Allergy Unknown rash Uncoded 03/09/23 12:45 Home Medications Medication Instructions Recorded Confirmed Last Taken Type acetaminophen 500 mg tablet 500 mg PO Q4H PRN pain/fever 01/05/21 05/10/23 Unknown History aripiprazole 15 mg tablet 15 mg PO DAILY 01/05/21 05/10/23 01/24/23 08:00 History aspirin 81 mg tablet,delayed 81 mg PO DAILY 01/05/21 05/10/23 01/24/23 08:00 History release carbamazepine 200 mg tablet 200 mg PO DAILY 01/05/21 05/10/23 01/24/23 08:00 History carbamazepine 200 mg tablet 400 mg PO BEDTIME 01/05/21 05/10/23 01/23/23 20:00 History clotrimazole 1 % topical cream 1 appl topical BID 01/05/21 05/10/23 Unknown History hydrochlorothiazide 25 mg tablet 25 mg PO DAILY 01/05/21 05/10/23 01/24/23 08:00 History loratadine 10 mg tablet 10 mg PO DAILY 01/05/21 05/10/23 01/24/23 08:00 History multivitamin 1 tab PO DAILY 01/05/21 05/10/23 01/23/23 08:00 History nystatin 100,000 unit/gram topical 1 appl topical BID PRN Rash 01/05/21 05/10/23 Unknown History powder polyethylene glycol 3350 17 17 g PO DAILY PRN Constipation 01/05/21 05/10/23 Unknown History gram/dose oral powder imipramine HCl 25 mg tablet 100 mg PO BEDTIME 10/10/22 05/10/23 01/23/23 20:00 History mirabegron 50 mg tablet,extended 50 mg PO DAILY 10/10/22 05/10/23 01/24/23 08:00 History release 24 hr (Myrbetriq) chantal estevez-zinc oxide topical 1 ea topical BID 01/24/23 05/10/23 Unknown History ointment ibuprofen 400 mg tablet 400 mg PO TID PRN Pain 01/24/23 05/10/23 Unknown History methyl salicylate 30 %-menthol 10 1 appl topical BID 01/24/23 05/10/23 01/24/23 08:00 History % topical cream (Icy Hot) triamcinolone acetonide 0.1 % 1 appl topical BID PRN Skin 01/24/23 05/10/23 Unknown History topical ointment Irritation benztropine 1 mg tablet 1 mg PO DAILY 05/10/23 05/10/23 Unknown History dextromethorphan-guaifenesin 10 7.5 ml PO Q6H PRN Cough 05/10/23 05/10/23 Unknown History mg-200 mg/5 mL oral liquid melatonin 10 mg tablet 10 mg PO BEDTIME 05/10/23 05/10/23 Unknown History Physical Exam Vital Signs and Narrative: Vital Signs: Last Vital Signs Temp 98.6 F 10/02/23 09:32 Pulse 68 10/02/23 13:41 Resp 16 10/02/23 13:41 BP 157/72 H 10/02/23 13:41 Pulse Ox 100 10/02/23 09:32 O2 Del Method Room Air 10/02/23 09:32 BMI result Body Mass Index 49.2 Constitutional - Awake and Alert, uncomfortable appearing Eyes - PERRLA, EOMI Cardiovascular - S1S2, RRR, No edema Respiratory - Normal lung expansion, Normal respiratory effort, No respiratory distress, CTA bilaterally Gastrointestinal - pt with slight grimmacing with palpatation of entire abdomen without guarding or rebound. ND; +BS Extremities - no calf tenderness bilaterally, no swelling Skin - Warm/Dry Neurological - Alert & oriented to self and knows it is her birthday in 2 days, but otherwise disoriented, unable to answer questions Psychological - Appropriate affect Results Labs 10/02/23 11:01 10/02/23 11:01 Labs: Laboratory Results - last 24 hr 10/02/23 10/02/23 10/02/23 10:56 11:01 13:43 MCV 89.1 MCH 28.0 MCHC 31.5 RDW 15.3 Plt Count 299 MPV 9.2 L Immature Gran % (Auto) 0.3 Neut % (Auto) 67.0 Lymph % (Auto) 23.6 [place] % (Auto) 7.5 Eos % (Auto) 1.2 Baso % (Auto) 0.4 Lymph # (Auto) 1.7 [place] # (Auto) 0.6 Eos # (Auto) 0.1 Baso # (Auto) 0.0 Abs Immat Gran (auto) 0.02 Absolute Neuts (auto) 4.9 Absolute Nucleated RBC 0.000 Nucleated RBC % (auto) 0.0 Anion Gap 14 Estim Creat Clear Calc 84.7 Estimated GFR > 60 Random Glucose 96 Calcium 8.9 Magnesium 1.9 Total Bilirubin 0.2 Direct Bilirubin < 0.2 AST 23 ALT 19 Alkaline Phosphatase 102 Total Protein 7.1 Albumin 3.3 L Lipase 59 Urine Color Dark Yellow Urine Appearance Clear Urine pH 7.0 Ur Specific [place] 1.010 Urine Protein Negative Urine Glucose (UA) Negative Urine Ketones Negative Urine Blood Negative Urine Nitrite Negative Ur Leukocyte Esterase Negative COVID-19 ([place]) Negative COVID-19 Clin Com See Note Influenza Type A (LENORE) Negative Influenza Type B (LENORE) Negative Influenza A & B Note See Note Imaging Radiologist's Impressions: Impressions Abdomen/Pelvis CT 10/02/23 11:53 IMPRESSION: 1. [id number] bilateral hydroureteronephrosis, new when compared to the prior examination. Prominent dilatation of the urinary bladder. Findings are concerning for bladder outlet obstruction. No renal or ureteral stone. 2. Severe stool burden throughout the colon to the level of a left-sided anastomosis. The small bowel loops are largely nondistended. Findings could indicate partial obstruction at the anastomosis site. No significant pneumatosis. Otherwise, evaluation of the bowel wall is severely limited without IV or oral contrast. 3. Trace pelvic free fluid. No intra-abdominal free air. 4. Partially visualized cardiomegaly, significantly increased when compared to the prior CT. Fleischner guidelines were followed. Chest X-Ray 10/02/23 12:17 IMPRESSION: No acute cardiopulmonary findings. Assessment and Plan (1) Partial small bowel obstruction: Status: Acute (2) Bladder outlet obstruction: Status: Acute Plan 68-year-old female with history of toxic multinodular goiter, vitamin-D deficiency, hyperthyroidism on methimazole, history ESBL E coli UTI, history colon cancer s/p colectomy with anastomosis, lung mass, developmental delay admitted for obstructive uropathy with severe constipation. #Severe constipation with partial SBO -Give fleet enema x1, add miralax daily, senna, and docusate BID -Keep NPO except for small sips clear and PO meds -No vomiting, hold on NG tube for now -Can check KUB am if no bm and worsening symptoms -Consult GI if no improvement #Bladder outlet obstruction with bilateral hydronephrosis -secondary to constipation. Treat constipation as above -no obstructive stone seen on CT -continue Christopher catheter -renal function baseline -continue IVF -follow BMP # ESBL E coli UTI-recurrent likely colonized -complete additional 4 doses Macrobid per ID -UA negative # hyperthyroidism -continue methimazole # hypertension -continue home meds # mood disorder -continue home meds DVT prophylaxis-heparin Full code Patient requires inpatient stay at least 2 midnights for management of severe constipation resulting in bladder outlet obstruction and bilateral hydronephrosis as well as partial SBO requiring NPO status/diet advancement, aggressive management of constipation and close monitoring of renal function and electrolyte levels Quality Stroke Does the patient have a stroke diagnosis?: No VTE Prior VTE?: No VTE Risk Level:: Medical - moderate - high VTE Device Contraindication: Treatment Not Indicated VTE Drug Contraindication: N/A - Med Ordered
[2023-10-02] MEDS: polyethylene glycoL 3350 17 GM POWD.PACK PO (16:00)
[2023-10-02] MEDS: 0.9 % Sodium Chloride Flush 3 ML SYRINGE IVFLUSH (16:01)
--- NOTE | 2023-10-02 17:11 | MHC.EDTECH ---
Patient bed linen changed and repositioned
[2023-10-02] MEDS: Sodium Phosphate,Mono-Dibasic 133 ML ENEMA PR (18:16)
[2023-10-02] MEDS: 0.9 % Sodium Chloride 1,000 ML 100 ML IVCONT (18:16)
[2023-10-02 18:17] VITALS: BP 172/75; PULSE 61; RESP 18; TEMP 36.8; O2SAT 100
[2023-10-02] MEDS: Heparin Sodium,Porcine 5,000 UNIT/ML VIAL 5000 UNIT SUBCUT (18:17)
--- NOTE | 2023-10-02 18:43 | PC.NURSE ---
this insurance writer received a phone call from a mental health counselor who knows and follows the patient. I explained no med list from nursing home were sent and that our pharmacy was going to call them to obtain a list. antibiotics cannot be continued until pharmacy confirms with nursing home
--- NOTE | 2023-10-02 19:04 | PHA.MEDREC ---
Pharmacy Consult ? Medication Reconciliation Pharmacy has completed the medication reconciliation. med list received from [facility]
--- NOTE | 2023-10-02 19:55 | PC.NURSE ---
this rn assumed care of pt. pt shouting intermittently at this time. pt denies pain.
[2023-10-02] MEDS: Docusate Sodium 100 MG CAPSULE PO (20:29)
[2023-10-02] MEDS: Melatonin 3 MG TABLET 9 MG PO (20:29)
[2023-10-02] MEDS: Sennosides 8.6 MG TABLET 17.2 MG PO (20:29)
[2023-10-02] MEDS: carBAMazepine 200 MG TABLET 400 MG PO (20:30)
[2023-10-02] MEDS: Nitrofurantoin Monohyd/M-Cryst 100 MG CAPSULE PO (20:30)
--- NOTE | 2023-10-02 20:32 | PC.NURSE ---
pt medicated per mar, pt tolerated medications well with applesauce. pharmacy contacted to bring 2 medications up at this time.
[2023-10-02] MEDS: Clotrimazole 1 % Cream 15 GM TUBE 1 APPL TOPICAL (20:36)
[2023-10-02] MEDS: Ferrous Sulfate 324 MG TABLET.DR PO (20:36)
[2023-10-02] MEDS: Imipramine HCl 50 MG TABLET 100 MG PO (20:36)
[2023-10-02 21:04] VITALS: BP 121/57; PULSE 80; RESP 16; O2SAT 96
--- NOTE | 2023-10-02 23:23 | PC.NURSE ---
this rn assumed care of pt. pt in SVT at this time 16. EKG preformed and given to provider.
[2023-10-03 00:19] VITALS: BP 143/70; PULSE 73; RESP 20; TEMP 36.8; O2SAT 77
[2023-10-03] MEDS: 0.9 % Sodium Chloride 1,000 ML 100 ML IVCONT ×2 (04:19→21:00)
[2023-10-03] MEDS: Heparin Sodium,Porcine 5,000 UNIT/ML VIAL 5000 UNIT SUBCUT ×2 (04:50→15:23)
[2023-10-03 07:46] VITALS: BP 156/77; PULSE 59; RESP 18; TEMP 36.6; O2SAT 97
[2023-10-03] MEDS: Multivitamin TABLET 1 TAB PO (07:48)
[2023-10-03] MEDS: Docusate Sodium 100 MG CAPSULE PO ×2 (07:48→21:00)
[2023-10-03] MEDS: ARIPiprazole 15 MG TABLET PO (07:48)
[2023-10-03] MEDS: Nitrofurantoin Monohyd/M-Cryst 100 MG CAPSULE PO ×2 (07:48→21:00)
[2023-10-03] MEDS: polyethylene glycoL 3350 17 GM POWD.PACK PO ×2 (07:48→20:59)
[2023-10-03] MEDS: carBAMazepine 200 MG TABLET PO (07:49)
[2023-10-03] MEDS: methIMAzole 5 MG TABLET PO (07:49)
[2023-10-03] MEDS: Benztropine Mesylate 1 MG TABLET PO (07:49)
[2023-10-03] MEDS: Mirabegron 50 MG TAB.ER.24H PO (07:49)
[2023-10-03] MEDS: Aspirin Enteric Coated 81 MG TABLET.DR PO (07:49)
[2023-10-03] MEDS: Loratadine 10 MG TABLET PO (07:49)
[2023-10-03] MEDS: Clotrimazole 1 % Cream 15 GM TUBE 1 APPL TOPICAL ×2 (07:50→21:01)
--- NOTE | 2023-10-03 08:21 | HO.PM.IMPN ---
Subjective Subjective Date of Service: 10/03/23 Interval History: Seen in follow-up for obstructive uropathy, severe constipation Interval history: Bowel movement in the ED per patient though not recorded. Still with significant diffuse abdominal pain, Christopher catheter in place. Limited historian but no other complaints Review of Systems Review of Systems: Yes all other systems are reviewed and are negative Physical Exam Vital Signs: Vital Signs: Last Vital Signs Temp 97.9 F 10/03/23 07:46 Pulse 59 10/03/23 07:46 Resp 18 10/03/23 07:46 BP 156/77 H 10/03/23 07:46 Pulse Ox 97 10/03/23 07:46 O2 Del Method Room Air 10/03/23 07:46 BMI result Body Mass Index 49.2 Constitutional - Awake and Alert, No apparent distress Eyes - PERRLA, EOMI Cardiovascular - S1S2, RRR, No edema Respiratory - Normal lung expansion, Normal respiratory effort, No respiratory distress, CTA bilaterally Gastrointestinal - diffuse abd ttp without guarding or rebound. ND; +BS Extremities - no calf tenderness bilaterally, no swelling Skin - Warm/Dry Neurological - Alert & oriented x3 Psychological - Appropriate affect Objective Data Active Medications Acetaminophen (Acetaminophen 325 Mg Tablet) 650 mg PO Q6H PRN PRN Reason: Pain, Mild (Pain Scale 1-3) Aripiprazole (Aripiprazole 15 Mg Tablet) 15 mg PO DAILY [facility] Last Admin: 10/03/23 07:48 Dose: 15 mg Documented By: STANLEY Aspirin (Aspirin Enteric Coated 81 Mg Tablet.) 81 mg PO DAILY [facility] Last Admin: 10/03/23 07:49 Dose: 81 mg Documented By: STANLEY Benztropine Mesylate (Benztropine Mesylate 1 Mg Tablet) 1 mg PO DAILY [facility] Last Admin: 10/03/23 07:49 Dose: 1 mg Documented By: STANLEY Carbamazepine (Carbamazepine 200 Mg Tablet) 200 mg PO DAILY [facility] Last Admin: 10/03/23 07:49 Dose: 200 mg Documented By: STANLEY Carbamazepine (Carbamazepine 200 Mg Tablet) 400 mg PO BEDTIME [facility] Last Admin: 10/02/23 20:30 Dose: 400 mg Documented By: KEVIN Clotrimazole (Clotrimazole 1 % Cream 15 Gm Tube) 1 appl TOPICAL BID [facility]; Protocol Last Admin: 10/03/23 07:50 Dose: 1 appl Documented By: STANLEY Diphenhydramine HCl (Diphenhydramine Hcl 25 Mg Capsule) 25 mg PO TID PRN PRN Reason: Rash Docusate Sodium (Docusate Sodium 100 Mg Capsule) 100 mg PO BID [facility] Last Admin: 10/03/23 07:48 Dose: 100 mg Documented By: STANLEY Ferrous Sulfate (Ferrous Sulfate 324 Mg Tablet.Dr) 324 mg PO MOWEFR [facility] Last Admin: 10/02/23 20:36 Dose: 324 mg Documented By: KEVIN Guaifenesin/Dextromethorphan (Guaifenesin Dm 200/20/10 Ml 10 Ml Syrup) 10 ml PO Q6H PRN PRN Reason: Cough Heparin Sodium (Porcine) (Heparin Sodium,Porcine 5,000 Unit/Ml Vial) 5,000 unit SUBCUT Q12H [facility] Last Admin: 10/03/23 04:50 Dose: 5,000 unit Documented By: KEVIN Sodium Chloride (Ns) 1,000 mls @ 100 mls/hr IVCONT .Q10H [facility] Last Admin: 10/03/23 04:19 Dose: 100 mls/hr Documented By: KEVIN Imipramine HCl (Imipramine Hcl 50 Mg Tablet) 100 mg PO BEDTIME [facility] Last Admin: 10/02/23 20:36 Dose: 100 mg Documented By: KEVIN Loratadine (Loratadine 10 Mg Tablet) 10 mg PO DAILY [facility] Last Admin: 10/03/23 07:49 Dose: 10 mg Documented By: STANLEY Melatonin (Melatonin 3 Mg Tablet) 9 mg PO BEDTIME [facility] Last Admin: 10/02/23 20:29 Dose: 9 mg Documented By: KEVIN Methimazole (Methimazole 5 Mg Tablet) 5 mg PO DAILY [facility] Last Admin: 10/03/23 07:49 Dose: 5 mg Documented By: STANLEY Mirabegron (Mirabegron 50 Mg Tab.Er.24h) 50 mg PO DAILY [facility] Last Admin: 10/03/23 07:49 Dose: 50 mg Documented By: STANLEY Multivitamins/Vitamin C (Multivitamin Tablet) 1 tab PO DAILY [facility] Last Admin: 10/03/23 07:48 Dose: 1 tab Documented By: STANLEY Nitrofurantoin Macrocrystals (Nitrofurantoin Monohyd/M-Cryst 100 Mg Capsule) 100 mg PO BID [facility] Stop: 10/03/23 21:01 Last Admin: 10/03/23 07:48 Dose: 100 mg Documented By: STANLEY Non-Formulary Medication (Estradiol [Estring]) 1 vag ring VAGINAL Q90D [facility] Nystatin (Nystatin Powder 15 Gm Bottle) 1 appl TOPICAL BID PRN; Protocol PRN Reason: Rash Ondansetron HCl (Ondansetron Hcl 4 Mg/2 Ml Vial) 4 mg IVPUSH Q8H PRN PRN Reason: Nausea and Vomiting Polyethylene Glycol (Polyethylene Glycol 3350 17 Gm Powd.Pack) 17 gm PO DAILY [facility] Last Admin: 10/03/23 07:48 Dose: 17 gm Documented By: STANLEY Senna (Sennosides 8.6 Mg Tablet) 17.2 mg PO BEDTIME [facility] Last Admin: 10/02/23 20:29 Dose: 17.2 mg Documented By: KEVIN Sodium Chloride (0.9 % Sodium Chloride Flush 3 Ml Syringe) 3 ml IVFLUSH QSHIFT [facility] Last Admin: 10/03/23 07:50 Dose: Not Given Documented By: STANLEY Non-Admin Reason: IV Running Triamcinolone Acetonide (Triamcinolone Acet 0.1 % Oint 15 Gm Tube) 1 appl TOPICAL BID PRN PRN Reason: Skin Irritation Labs 10/03/23 09:10 10/03/23 09:10 Labs: Laboratory Results - last 24 hr 10/02/23 10/02/23 10/02/23 10:56 11:01 13:43 MCV 89.1 MCH 28.0 MCHC 31.5 RDW 15.3 Plt Count 299 MPV 9.2 L Immature Gran % (Auto) 0.3 Neut % (Auto) 67.0 Lymph % (Auto) 23.6 [place] % (Auto) 7.5 Eos % (Auto) 1.2 Baso % (Auto) 0.4 Lymph # (Auto) 1.7 [place] # (Auto) 0.6 Eos # (Auto) 0.1 Baso # (Auto) 0.0 Abs Immat Gran (auto) 0.02 Absolute Neuts (auto) 4.9 Absolute Nucleated RBC 0.000 Nucleated RBC % (auto) 0.0 Anion Gap 14 Estim Creat Clear Calc 84.7 Estimated GFR > 60 Random Glucose 96 Calcium 8.9 Magnesium 1.9 Total Bilirubin 0.2 Direct Bilirubin < 0.2 AST 23 ALT 19 Alkaline Phosphatase 102 Total Protein 7.1 Albumin 3.3 L Lipase 59 Urine Color Dark Yellow Urine Appearance Clear Urine pH 7.0 Ur Specific [place] 1.010 Urine Protein Negative Urine Glucose (UA) Negative Urine Ketones Negative Urine Blood Negative Urine Nitrite Negative Ur Leukocyte Esterase Negative COVID-19 (NAINA) Negative COVID-19 Clin Com See Note Influenza Type A (LENORE) Negative Influenza Type B (LENORE) Negative Influenza A & B Note See Note Assessment and Plan (1) Partial small bowel obstruction: Status: Acute (2) Bladder outlet obstruction: Status: Acute (3) History of ESBL E. coli infection: Status: Acute Plan 68-year-old female with history of toxic multinodular goiter, vitamin-D deficiency, hyperthyroidism on methimazole, history ESBL E coli UTI, history colon cancer s/p colectomy with anastomosis, lung mass, developmental delay admitted for obstructive uropathy with severe constipation. Still with severe abd pain and stool burden requiring christopher catheter for bladder outlet obstruction #Severe constipation with partial SBO -Bowel regimen with miralax bidaily, senna, and docusate BID -Keep NPO except for small sips clear and PO meds, advance as tolerated -No vomiting, hold on NG tube for now -Repeat KUB now -Consult GI if no improvement #Bladder outlet obstruction with bilateral hydronephrosis -secondary to constipation. Treat constipation as above -no obstructive stone seen on CT -continue Christopher catheter -renal function baseline -continue IVF -follow BMP # ESBL E coli UTI-recurrent likely colonized -complete additional 3 doses Macrobid per ID -UA negative # hyperthyroidism -continue methimazole # hypertension -continue home meds # mood disorder -continue home meds DVT prophylaxis-heparin Full code Patient requires ongoing inpatient stay due to persisting severe abd pain and bladder outlet obstruction requiring aggressive management of constipation and christopher catheter. Quality Stroke Does the patient have a stroke diagnosis?: No VTE Prior VTE?: No VTE Risk Level:: Medical - moderate - high VTE Device Contraindication: Treatment Not Indicated VTE Drug Contraindication: N/A - Med Ordered
[2023-10-03 09:17] LABS: MANUAL DIFF FLAG NO
[2023-10-03 09:21] LABS: Basophils Absolute Auto 0.1 X10*3/uL (0.0-0.2); Basophils Percent Auto 0.8 % (0-2); Eosinophils Absolute Auto 0.1 X10*3/uL (0.0-0.4); Eosinophils Percent Auto 1.3 % (0-4); Hemoglobin 10.1 g/dl (12.0-16.0); Imm Gran Abs Auto 0.01 X10*3/uL (0.00-0.03); Imm Gran Pct Auto 0.2 % (0.0-0.4); Lymphocytes Percent Auto 31.7 % (20-40); Mean Corpuscular HGB Conc 30.6 g/dl (31.0-35.0); Mean Corpuscular Hemoglobin 27.7 pg (27.0-33.0); Mean Corpuscular Volume 90.4 fL (80.0-98.0); Mean Platelet Volume 9.3 fL (9.4-12.3); Monocytes Absolute Auto 0.4 X10*3/uL (0.1-1.2); Monocytes Percent Auto 6.4 % (2-11); Neutrophils Absolute Auto 3.7 x10*3/uL (2.0-8.3); Neutrophils Percent Auto 59.6 % (45-73); Platelet Count 294 X10*3/uL (160-400); Red Blood Count 3.65 X10*6/uL (4.20-5.50); Red Cell Distribution Width 15.5 % (11.0-16.0); White Blood Count 6.2 X10*3/uL (4.8-10.8)
[2023-10-03 09:22] LABS: NRBC Pct Auto 1.1 /100WBC (0.0-0.2)
--- NOTE | 2023-10-03 09:23 | PC.NURSE ---
F/c Placed in ED on 10/02/23
--- NOTE | 2023-10-03 09:37 | MHC.CM.PN ---
Addendum entered by Drea Baez RN 10/03/23 09:44: PER HCP IS INVOKED, DOCUMENTATION REQUESTED. Original Note: IMM DELIVERED. PATIENT IS FROM [facility]. BULK SEALER ZACHARY MELGAR [phone]. PATIENT AMBULATES W/ A WHEELED WALKER. STAFF ASSISTS W/ ADL'S. NO OTHER MEDICAL EQUIPMENT OR ADDITIONAL SERVICES. PCP: LUIS SINGH MD HCP: MISA FRENCH - [facility] - [phone], DP: RETURN TO VIA BLS. CM WILL CONTINUE TO FOLLOW.
[2023-10-03 09:40] LABS: Anion Gap 11 (12-20); Blood Urea Nitrogen 16 mg/dL (9-16); Calcium 8.8 mg/dL (8.4-10.2); Carbon Dioxide 25 mmol/L (22-29); Chloride 109 mmol/L (96-108); Creatinine Clr Calc Pharmacy 84.7; Estimated Glomerular Filt Rate > 60; Glucose Random 92 mg/dL (60-115); Potassium 4.1 mmol/L (3.3-5.1); Sodium 141 mmol/L (135-145)
--- NOTE | 2023-10-03 09:49 | P.CDIM_ITS ---
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 Please review below and update the documentation accordingly. 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 Please use your independent medical judgment in providing your response. THIS QUERY IS PART OF THE PERMANENT MEDICAL RECORD
[2023-10-03] MEDS: Sodium Phosphate,Mono-Dibasic 133 ML ENEMA PR ×2 (13:47→17:54)
[2023-10-03 15:07] VITALS: BP 143/60; PULSE 68; RESP 18; TEMP 36.1; O2SAT 100
--- NOTE | 2023-10-03 15:51 | PC.NURSE ---
Enema given per order, small BM thus far.
--- NOTE | 2023-10-03 16:53 | PC.NURSE ---
Nurse from Pt half-way called and updated.
[2023-10-03] MEDS: Lactulose 20 GM/30 ML SOLUTION PO (17:54)
[2023-10-03 19:41] VITALS: BP 138/54; PULSE 71; RESP 17; TEMP 36.1; O2SAT 97
[2023-10-03] MEDS: Melatonin 3 MG TABLET 9 MG PO (20:59)
[2023-10-03] MEDS: Imipramine HCl 50 MG TABLET 100 MG PO (20:59)
[2023-10-03] MEDS: Sennosides 8.6 MG TABLET 17.2 MG PO (20:59)
[2023-10-03] MEDS: carBAMazepine 200 MG TABLET 400 MG PO (21:00)
[2023-10-04] MEDS: Acetaminophen 325 MG TABLET 650 MG PO ×2 (01:45→15:25)
[2023-10-04] MEDS: Heparin Sodium,Porcine 5,000 UNIT/ML VIAL 5000 UNIT SUBCUT ×2 (03:33→17:20)
[2023-10-04 04:00] VITALS: BP 150/67; PULSE 64; RESP 18; TEMP 36.3; O2SAT 98
[2023-10-04] MEDS: 0.9 % Sodium Chloride 1,000 ML 100 ML IVCONT (05:57)
[2023-10-04] MEDS: Mirabegron 50 MG TAB.ER.24H PO (07:14)
[2023-10-04] MEDS: Clotrimazole 1 % Cream 15 GM TUBE 1 APPL TOPICAL ×2 (07:14→20:05)
[2023-10-04] MEDS: Triamcinolone Acet 0.1 % Oint 15 GM TUBE 1 APPL TOPICAL (07:14)
[2023-10-04] MEDS: Multivitamin TABLET 1 TAB PO (07:14)
[2023-10-04] MEDS: Benztropine Mesylate 1 MG TABLET PO (07:14)
[2023-10-04] MEDS: carBAMazepine 200 MG TABLET PO (07:14)
[2023-10-04] MEDS: Loratadine 10 MG TABLET PO (07:15)
[2023-10-04] MEDS: ARIPiprazole 15 MG TABLET PO (07:15)
[2023-10-04] MEDS: methIMAzole 5 MG TABLET PO (07:15)
[2023-10-04] MEDS: Docusate Sodium 100 MG CAPSULE PO ×2 (07:15→20:03)
[2023-10-04] MEDS: Aspirin Enteric Coated 81 MG TABLET.DR PO (07:15)
[2023-10-04 07:17] LABS: Anion Gap 10 (12-20); Blood Urea Nitrogen 11 mg/dL (9-16); Calcium 8.5 mg/dL (8.4-10.2); Carbon Dioxide 23 mmol/L (22-29); Chloride 111 mmol/L (96-108); Creatinine Clr Calc Pharmacy 85.9; Estimated Glomerular Filt Rate > 60; Glucose Random 80 mg/dL (60-115); Potassium 3.9 mmol/L (3.3-5.1); Sodium 140 mmol/L (135-145)
[2023-10-04 07:53] VITALS: BP 147/77; PULSE 72; RESP 18; TEMP 36.5; O2SAT 100
--- NOTE | 2023-10-04 15:24 | MHC.CM.PN ---
Addendum entered by Drea Baez RN 10/04/23 15:29: [facility] [phone] Original Note: EMR reviewed. Per PA patient not cleared for dc. Requiring psych eval as staff feels that behaviors of yelling out are not patient's baseline. CM will continue to follow.
[2023-10-04 15:39] VITALS: BP 139/74; PULSE 70; RESP 18; TEMP 36.1; O2SAT 98
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
[2023-10-04 19:58] VITALS: BP 141/57; PULSE 89; RESP 18; TEMP 36.4; O2SAT 97
[2023-10-04] MEDS: Sennosides 8.6 MG TABLET 17.2 MG PO (20:03)
[2023-10-04] MEDS: Melatonin 3 MG TABLET 9 MG PO (20:03)
[2023-10-04] MEDS: polyethylene glycoL 3350 17 GM POWD.PACK PO (20:03)
[2023-10-04] MEDS: carBAMazepine 200 MG TABLET 400 MG PO (20:04)
[2023-10-04] MEDS: Ferrous Sulfate 324 MG TABLET.DR PO (20:14)
[2023-10-04] MEDS: 0.9 % Sodium Chloride Flush 3 ML SYRINGE IVFLUSH (23:32)
[2023-10-05] MEDS: Heparin Sodium,Porcine 5,000 UNIT/ML VIAL 5000 UNIT SUBCUT (03:25)
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
[2023-10-05 03:41] VITALS: BP 133/65; PULSE 58; RESP 16; TEMP 36.3; O2SAT 96
[2023-10-05 06:47] VITALS: BP 137/66; PULSE 59; RESP 16; TEMP 36.1; O2SAT 98
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
[2023-10-05] MEDS: Mirabegron 50 MG TAB.ER.24H PO (10:19)
[2023-10-05] MEDS: Acetaminophen 325 MG TABLET 650 MG PO (10:19)
[2023-10-05] MEDS: polyethylene glycoL 3350 17 GM POWD.PACK PO (10:19)
[2023-10-05] MEDS: ARIPiprazole 15 MG TABLET PO (10:19)
[2023-10-05] MEDS: methIMAzole 5 MG TABLET PO (10:20)
[2023-10-05] MEDS: carBAMazepine 200 MG TABLET PO (10:20)
[2023-10-05] MEDS: Aspirin Enteric Coated 81 MG TABLET.DR PO (10:20)
[2023-10-05] MEDS: Loratadine 10 MG TABLET PO (10:20)
[2023-10-05] MEDS: Multivitamin TABLET 1 TAB PO (10:20)
[2023-10-05] MEDS: Docusate Sodium 100 MG CAPSULE PO (10:20)
[2023-10-05] MEDS: 0.9 % Sodium Chloride Flush 3 ML SYRINGE IVFLUSH (10:20)
[2023-10-05] MEDS: Clotrimazole 1 % Cream 15 GM TUBE 1 APPL TOPICAL (10:24)
--- NOTE | 2023-10-05 12:30 | PM.DS ---
DS: Providers Provider Date of Service: 10/05/23 Date of admission: 10/02/23 15:14 Date of discharge: 10/05/23 Primary care physician: Sher Patrick MD Consults: 10/04/23 15:24 Consult to Psychiatry Routine Consulting Provider: Psych Covering Reason for consultation: acute aggitation Attending physician on discharge: Seven Dennis Discharging clinician: Maureen Oviedo DS: Diagnosis Discharge Diagnosis (1) Partial small bowel obstruction: Status: Acute (2) Bladder outlet obstruction: Status: Acute (3) History of ESBL E. coli infection: Status: Acute DS: Summary Hospital Course Hospital Course: From H&P on the day of admission 68-year-old female with history of toxic multinodular goiter, vitamin-D deficiency, hyperthyroidism on methimazole, history ESBL E coli UTI, history colon cancer s/p colectomy with anastomosis, lung mass, developmental delay presented to the ED earlier today via ambulance from shelter where she resides for evaluation of ongoing agitation. The patient was diagnosed with UTI in 09/21 and discharged from our ED on Bactrim. Urine culture grew ESBL E coli and antibiotics were changed to Macrobid which she has 2 days left of. Per shelter staff, increased agitation is typically a sign of UTI in the patient. Despite treatment however, patient continues to be agitated so she was brought in for further evaluation. Of note, patient has also not had a bowel movement in 6 days. She is not a good historian secondary to developmental delay and history is obtained from ED staff and shelter staff. On arrival, vital stable. No leukocytosis. Renal function and electrolyte levels normal. Urinalysis unremarkable. Negative for COVID-19, influenza. CXR negative for any acute cardiopulmonary abnormality. CT abdomen/pelvis shows moderate to severe bilateral hydronephrosis which is new as well as prominent dilatation of the urinary bladder concerning for bladder outlet obstruction without evidence of renal or ureteral stone. There is also severe stool burden throughout the colon to the level of the left-sided anastomosis with nondistended small bowel loops possibly indicative of partial bowel obstruction at the anastomosis site without significant pneumatosis. ED provider did discuss case with ID recommending completing course of Macrobid for ESBL E coli UTI. Placement of christopher catheter yielded 1L urine. Severe constipation with partial SBO - resolved Large BM over night and again on the day of discharge. Abd exam benign. No n/v. Tolerating diet. continue bowel regimine Bladder outlet obstruction with bilateral hydronephrosis. Christopher placed with good urine output. Christopher removed and patient urinating independently. Likely due to constipation. Recommend outpatient follow up Acute agitation No evidence of meical cause of acute delirium. Seen by psych - dose of imipramine decreased to 25 mg and cogentin placed on hold. Improving. ESBL E coli UTI-recurrent likely colonized. completed course of macrobid per ID. repeat UA negative Time Attestation Discharge coordination time: Greater than 30 minutes Quality: Safe Use of Opioids Does Pt have an Active Cancer Diagnosis on the Problem List?: No Quality: Stroke Does the patient have a stroke diagnosis?: No Physical Exam Vital Signs: Vital Signs: Last Vital Signs Temp 97 F 10/05/23 06:47 Pulse 59 10/05/23 06:47 Resp 16 10/05/23 06:47 BP 137/66 10/05/23 06:47 Pulse Ox 98 10/05/23 06:47 O2 Del Method Room Air 10/05/23 06:47 BMI result Body Mass Index 49.2 Const: General: cooperative, comfortable, no acute distress, alert and awake Nutritional Appearance: overweight Resp: Effort & Inspection: normal respiratory effort, able to speak in complete sentences, no respiratory distress and no use of accessory muscles GI: Inspection: No distended Palpation (GI): Soft to palpation and nontender Extrem: General: Yes no pedal edema DS: Data Data Completed and Pending Labs on day of discharge: Laboratory Results - last 24 hr 10/04/23 16:28 TSH 4.17 H Free T4 0.87 Preliminary micro results at discharge 10/02/23 11:08 Blood Culture - Preliminary Blood - Venous No growth after 48 hours. 10/02/23 11:01 Blood Culture - Preliminary Blood - Venous No growth after 48 hours. Discharge Plan Discharge Anticipated Discharge Date/Time: 10/05/23 12:24 Patient Disposition: Home, Self-Care Discharge Diagnosis: constipation Referrals: Sher Patrick MD [Primary Care Provider] - 1 Week Discharge Medications: New imipramine HCl 50 mg Tablet 25 mg PO BEDTIME 30 Days Qty: 15 0RF docusate sodium 100 mg Capsule 100 mg PO BID 30 Days Qty: 60 0RF sennosides [Senna Lax] 8.6 mg Tablet 8.6 mg PO BEDTIME PRN (Reason: constipation) Qty: 30 0RF Continued methimazole 5 mg tablet 5 mg PO DAILY Qty: 30 5RF carbamazepine 200 mg tablet 200 mg PO DAILY carbamazepine 200 mg tablet 400 mg PO BEDTIME aripiprazole 15 mg tablet 15 mg PO DAILY multivitamin Tablet 1 tab PO DAILY aspirin 81 mg Tablet,Delayed Release (Dr/Ec) 81 mg PO DAILY acetaminophen 500 mg Tablet 500 mg PO Q4H PRN (Reason: pain/fever) nystatin 100,000 unit/gram Powder 1 appl TOPICAL BID PRN (Reason: Rash) Rx Instructions: rash in skin folds clotrimazole 1 % Cream 1 appl TOPICAL BID Rx Instructions: apply under breast loratadine 10 mg Tablet 10 mg PO DAILY triamcinolone acetonide 0.1 % ointment 1 appl topical BID PRN (Reason: Skin Irritation) ibuprofen 400 mg Tablet 400 mg PO TID PRN (Reason: Pain) Balmex Ointment 1 ea TOPICAL BID Rx Instructions: to rash, groin, buttocks Icy Hot 30-10 % Cream 1 appl TOPICAL BID Rx Instructions: to back and shoulders ferrous sulfate 325 mg (65 mg iron) Tablet 325 mg PO MOWEFR Estring 2 mg (7.5 mcg /24 hour) Ring 1 vag ring VAGINAL Q90D Guaifenesin DM 10-200 mg/5 mL Liquid 10 ml PO Q6H PRN (Reason: Cough) melatonin 10 mg Tablet 10 mg PO BEDTIME Myrbetriq 50 mg tablet extended release 24 hr 50 mg PO DAILY Changed polyethylene glycol 3350 17 gram/dose Powder 17 g PO DAILY 30 Days Qty: 510 0RF Held diphenhydramine HCl [Banophen] 25 mg Tablet 25 mg PO TID PRN (Reason: Rash) Hold Instructions: minimize use if able benztropine 1 mg tablet 1 mg PO DAILY Hold Instructions: hold for now. follow up with outpatient prescriber Discontinued imipramine HCl 25 mg tablet 100 mg PO BEDTIME nitrofurantoin monohyd/m-cryst [Macrobid] 100 mg Capsule 100 mg PO BID Rx Instructions: ENDS 10/03/23 Discharge Orders: Discharge Order (Routine); Ordered 10/05/23 Ordered By: Maureen Oviedo Activity on Discharge: As tolerated Stand Alone Forms: Patient Portal Discharge page Care Plan Goals: see below Health Concerns: severe constipation bladder outlet obstruction with hydronephrosis dilirium Plan of Treatment: constipation and bladder outlet obstruction resolved. voiding without difficulty recommend outpatient follow up to ensure resolution of hydronephrosis dose of imiprimine was decreased to 25 mg and cogentin placed on hold for now - recommend follow up with outpatient prescriber started on scheduled colace bid and scheduled mirlax daily, prn senokot Assessment: see discharge summary
--- NOTE | 2023-10-05 12:46 | MHC.CM.PN ---
EMR reviewed. Per PA patient is cleared for DC back to alf. BLS transportation scheduled for 5pm. RN, PA and alf aware. longterm provided corrected number for HCP Isi [phone]. CM spoke with [facility] informed of hospital stay, dc, and IMM was delivered. Copy to be mailed.
[2023-10-05 15:51] VITALS: BP 151/59; PULSE 69; RESP 18; TEMP 36.7; O2SAT 99
== END 2023-10-05 18:17 | disposition home or self-care (01) | DRG 392 ==
LOC: HO.ED 13:33 → HO.EDOVER 15:15 → HO.S3 10-03 05:37
PROVIDERS: Physician Assistant; Admitting Provider Physician Assistant; Emergency Provider Emergency Medicine; PCP Internal Medicine; Visit Provider Physician Assistant Medical
DX: K59.00 Constipation, unspecified (principal); N13.6 Pyonephrosis; Z68.42 Body mass index [BMI] 45.0-49.9, adult; F05 Delirium due to known physiological condition; B96.20 Unspecified Escherichia coli [E. coli] as the cause of diseases classified elsewhere; E66.01 Morbid (severe) obesity due to excess calories; E05.90 Thyrotoxicosis, unspecified without thyrotoxic crisis or storm; N32.0 Bladder-neck obstruction; I10 Essential (primary) hypertension; F39 Unspecified mood [affective] disorder; R62.50 Unspecified lack of expected normal physiological development in childhood; Z85.038 Personal history of other malignant neoplasm of large intestine; Z91.040 Latex allergy status; Z79.82 Long term (current) use of aspirin; Z79.899 Other long term (current) drug therapy
CPT/HCPCS: 36415; 71045; 74018; 74176; 80048; 80076; 81003; 83690; 83735; 84439; 84443; 85025; 87040; 87502; 87635; 99285; C1758; J1644

== ENCOUNTER → 2023-10-02 15:14 | Outpatient (BNV) | payer MEDICARE, MEDICAID, SELFPAY | PROVIDERS: Admitting Provider Physician Assistant; Emergency Provider Emergency Medicine; PCP Internal Medicine; Visit Provider Social Worker | DX: F03.90 Unspecified dementia, unspecified severity, without behavioral disturbance, psychotic disturbance, mood disturbance, and anxiety (principal); F05 Delirium due to known physiological condition | CPT/HCPCS: 99222 ==

== ENCOUNTER → 2023-10-02 15:14 | Outpatient (BNV) | payer MEDICARE, MEDICAID, SELFPAY | PROVIDERS: Admitting Provider Physician Assistant; Emergency Provider Emergency Medicine; PCP Internal Medicine; Visit Provider Physician Assistant | DX: K56.600 Partial intestinal obstruction, unspecified as to cause (principal); N32.0 Bladder-neck obstruction; Z86.19 Personal history of other infectious and parasitic diseases | CPT/HCPCS: 99223; 99232; 99239 ==

== ENCOUNTER 2023-10-07 13:48 | Emergency (ER) | payer MEDICARE, MEDICAID, SELFPAY ==
--- NOTE | 2023-10-07 14:05 | ED.GENADULT ---
HPI - General Adult General Chief complaint: General Medical Stated complaint: INSOMNIA,FROM SKILLED NURSING Time Seen by Provider: 10/07/23 14:04 Source: patient and RN notes reviewed Mode of arrival: ambulatory Limitations: no limitations History of Present Illness HPI narrative: This is a 68-year-old female, with a past medical history with a past medical history of toxic multinodular goiter, vitamin-D deficiency, hyperthyroidism on methimazole, history ESBL E coli UTI, history colon cancer s/p colectomy with anastomosis, lung mass, developmental delay, presenting to the emergency department due to insomnia. Patient reports that she was unable to sleep last night, unclear why. Denies any recent changes to her medication and has been compliant taking all of her medicines. She was recently seen here in the emergency room on October 02 and was admitted until October for for partial small bowel obstruction, bladder outlet obstruction. Patient states that she has not had a bowel movement in over 1 week. For hospitalist note, patient did have bowel movement 2 days ago. Given history of partial small-bowel obstruction, will obtain x-ray, and basic labs. She has no chest pain, shortness breath, abdominal pain, nausea, vomiting or diarrhea. She is otherwise feeling well. No other complaints or concerns at this time. Patient with research group director at bedside, see MDM for additional information. MD complaint: Insomnia Onset (ago): hour(s) Radiation: non-radiation Severity: moderate Quality: aching Pain Consistency: constant Relieving factors: none Exacerbating factors: none Associated symptoms: denies other symptoms Treatments prior to arrival: none Related Data Home Medications Medication Instructions Recorded Confirmed acetaminophen 500 mg tablet 500 mg PO Q4H PRN pain/fever 01/05/21 10/07/23 aripiprazole 15 mg tablet 15 mg PO DAILY 01/05/21 10/07/23 aspirin 81 mg tablet,delayed 81 mg PO DAILY 01/05/21 10/07/23 release carbamazepine 200 mg tablet 200 mg PO DAILY 01/05/21 10/07/23 carbamazepine 200 mg tablet 400 mg PO BEDTIME 01/05/21 10/07/23 clotrimazole 1 % topical cream 1 appl topical BID 01/05/21 10/07/23 loratadine 10 mg tablet 10 mg PO DAILY 01/05/21 10/07/23 multivitamin 1 tab PO DAILY 01/05/21 10/07/23 nystatin 100,000 unit/gram topical 1 appl topical BID PRN Rash 01/05/21 10/07/23 powder mirabegron 50 mg tablet,extended 50 mg PO DAILY 10/10/22 10/07/23 release 24 hr (Myrbetriq) chantal estevez-zinc oxide topical 1 ea topical BID 01/24/23 10/07/23 ointment ibuprofen 400 mg tablet 400 mg PO TID PRN Pain 01/24/23 10/02/23 methyl salicylate 30 %-menthol 10 1 appl topical BID 01/24/23 10/02/23 % topical cream (Icy Hot) triamcinolone acetonide 0.1 % 1 appl topical BID PRN Skin 01/24/23 10/07/23 topical ointment Irritation benztropine 1 mg tablet 1 mg PO DAILY 05/10/23 10/07/23 dextromethorphan-guaifenesin 10 10 ml PO Q6H PRN Cough 05/10/23 10/07/23 mg-200 mg/5 mL oral liquid melatonin 10 mg tablet 10 mg PO BEDTIME 05/10/23 10/07/23 diphenhydramine HCl 25 mg tablet 25 mg PO TID PRN Rash 10/02/23 10/02/23 (Banophen) estradiol 2 mg (7.5 mcg/24 hour) 1 vag ring vaginal Q90D 10/02/23 10/02/23 vaginal ring (Estring) ferrous sulfate 325 mg (65 mg 325 mg PO MOWEFR 10/02/23 10/07/23 iron) tablet Previous Rx's Medication Instructions Recorded methimazole 5 mg tablet 5 mg PO DAILY #30 tabs 06/21/23 docusate sodium 100 mg capsule 100 mg PO BID 30 days #60 caps 10/05/23 imipramine HCl 50 mg tablet 25 mg (1/2 x 50 mg) PO BEDTIME 30 10/05/23 days #15 tabs polyethylene glycol 3350 17 17 g PO DAILY 30 days #510 grams 10/05/23 gram/dose oral powder sennosides 8.6 mg tablet (Senna 8.6 mg PO BEDTIME PRN constipation 10/05/23 Lax) #30 tabs sennosides 8.6 mg tablet (senna) 8.6 mg PO BEDTIME PRN constipation 10/05/23 #30 tabs olanzapine 2.5 mg tablet 2.5 mg PO BID PRN agitation #10 10/09/23 tabs Allergies Allergy/AdvReac Type Severity Reaction Status Date / Time adhesive tape Allergy Intermediate itching Verified 10/07/23 21:25 and skin redness latex Allergy Intermediate skin rash Verified 10/07/23 21:25 and itching Seasonal Allergies Allergy Itching Verified 10/07/23 21:25 weed pollen Allergy stuffy nose Verified 10/07/23 21:25 DUST Allergy Unknown ITCHY/WATERY Uncoded 03/09/23 12:45 EYES surgical paper tape Allergy Unknown rash Uncoded 03/09/23 12:45 Tide Allergy Unknown rash Uncoded 03/09/23 12:45 Review of Systems Review of Systems: Yes all other systems are reviewed and are negative Constitutional: Constitutional: [place] [facility] Medical History Attestation statement: The following information was validated with the patient. Onset Date is defined in the Problem List Problems that require an onset date and time if occurred within 24 hrs of arrival to the ED Aortic Dissection and Rupture; Neurologic impairment; Cardiopulmonary Arrest; Endotracheal Intubation; Insertion or Replacement of Mechanical Circulatory Assist Device Medical History Toxic multinodular goiter Toxic multinodular goiter Vitamin D deficiency Hyperthyroidism Multinodular thyroid Colon cancer Lung mass Developmental delay, mild Arthritis Surgical History History of biopsy Hx of colonic polyps Hx of colonoscopy Family History Family History Father No problems noted. 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 Members: Other Household Members Other:: gr home Unable to assess alcohol history related to: Unknown Alcohol intake: never Patient Tobacco Use Status: Never used Tobacco Smoked in Last 30 Days: No Use of substances other than those prescribed or required for medical reasons: No Advance Directives: Yes Advance Directives on File: Yes Advance Directives Date on File: 01/05/21 service: No Current occupational status: disabled Current occupation: right handed Physical Exam ED Vital Signs: Vital Signs - 24 hr 10/08/23 11:18 10/08/23 21:49 10/09/23 06:35 Temperature 98.5 F 98.5 F 97.8 F Pulse Rate 60 78 56 Respiratory Rate 16 14 14 Blood Pressure 174/69 H 138/52 L 158/62 H Pulse Oximetry 99 96 98 Oxygen Delivery Method Room Air Room Air Room Air BMI result Body Mass Index 24.2 Const General: cooperative, comfortable and no acute distress Orientation/consciousness: patient oriented x3 Limitations: no limitations HENFL Head: Yes normal to inspection, Yes normocephalic and Yes atraumatic Ears: hearing grossly normal bilaterally General nose exam: Normal external nose present Face and sinus: Yes normal facial exam Mouth: Normal oral and palatal mucosa present, oropharynx normal and moist mucous membranes Throat: Yes posterior oropharynx normal Eyes General: appearance normal, both eyes and all related structures Eyelids: Yes eyelids normal Conjunctivae: conjunctivae normal Sclerae: sclerae normal Pupils: Equal, round and reactive pupils present EOM: EOMs intact bilaterally Neck Neck: Yes normal visual inspection, Yes full ROM and Yes no lymphadenopathy Lymphatic: no lymphadenopathy noted Chest Chest palpation & inspection: normal inspection of the chest Resp Effort & Inspection: normal respiratory effort and able to speak in complete sentences Auscultation: clear to auscultation bilaterally, no crackles, no rales, no rhonchi and no wheezes Cardio Rate: regular rate Rhythm: regular rhythm GI Other: Abdomen is soft, nontender, nondistended Inspection: Yes normal to inspection Skin General skin exam: no rashes or lesions noted Trauma: no lacerations or abrasions Wounds: no wounds Neuro General: patient oriented x3 and moves all extremities Cranial nerves: Yes CN's II-XII intact bilaterally and Yes Equal, round and reactive pupils present Cognition (Neuro): normal cognition Motor exam (neuro): 5/5 motor strength present throughout and Pronator motor function not present Extrem General: Yes normal to inspection Right upper extremity: normal to inspection Left upper extremity: normal to inspection Right lower extremity: normal to inspection Left lower extremity: normal to inspection Course Reevaluation(s) Reevaluation #1: Sign-out given to my colleague. CT scan of the head reveals prominent large hyperdense pituitary, recommending MRI brain with and without contrast with attenuation to the pituitary gland, may need MRI. I discussed this with my colleague, Dayton Low PA-C who is taking over her care, chemistry is pending, UA is pending. Time: 16:58 Reevaluation #2: Discuss Time: 19:38 Reevaluation #3: Discussed case with my attending, Dr Gagnon, who feels since the patient has no signs or symptoms of hyperpituitarism, this is not the cause of her agitation. The MRI does not need to be completed emergently tonight, but will be ordered to be completed tomorrow. Patient's home meds were ordered and she will be evaluated by Case Management and Psychiatry tomorrow Additional Reevaluation(s): 10/08/2023 09:42 Physician observation continues. Patient is to be evaluated by case management today and have Psychiatry evaluation for agitation. MRI ordered for today, received call from radiology, Dr. Martinez, not indicated for emergent MRI, should be scheduled outpatient which I agree is reasonable. I reviewed this with Dr. Hernandez who agrees. Patient in no apparent distress. Respirations even, regular, and non-labored. No focal neuro deficits. Will continue to monitor. 1038 Patient to be dc back to senior care. Psych will send med adjustments. I agree w/ plan Medications Administered Generic Name Dose Route Start Last Admin Trade Name Freq PRN Reason Stop Dose Admin Aripiprazole 15 mg 10/08/23 09:00 10/08/23 08:19 Aripiprazole 15 Mg Tablet PO 15 mg DAILY DANA Administration Aspirin 81 mg 10/08/23 09:00 10/09/23 09:44 Aspirin Enteric Coated 81 Mg Tablet. PO 81 mg DAILY DANA Administration Benztropine Mesylate 1 mg 10/08/23 09:00 10/09/23 09:44 Benztropine Mesylate 1 Mg Tablet PO 1 mg DAILY DANA Administration Carbamazepine 200 mg 10/08/23 09:00 10/09/23 09:44 Carbamazepine 200 Mg Tablet PO 200 mg DAILY DANA Administration Carbamazepine 400 mg 10/07/23 22:00 10/08/23 21:50 Carbamazepine 200 Mg Tablet PO 400 mg BEDTIME DANA Administration Clotrimazole 1 appl 10/08/23 09:00 10/08/23 21:51 Clotrimazole 1 % Cream 15 Gm Tube TOPICAL 1 appl BID DANA Administration Protocol Docusate Sodium 100 mg 10/08/23 09:00 10/09/23 09:43 Docusate Sodium 100 Mg Capsule PO 100 mg BID DANA Administration Ferrous Sulfate 324 mg 10/09/23 09:00 10/09/23 09:44 Ferrous Sulfate 324 Mg Tablet. PO 324 mg [id number] DANA Administration Imipramine HCl 25 mg 10/07/23 22:00 10/08/23 21:55 Imipramine Hcl 50 Mg Tablet PO 25 mg BEDTIME DANA Administration Loratadine 10 mg 10/08/23 09:00 10/09/23 09:43 Loratadine 10 Mg Tablet PO 10 mg DAILY DANA Administration Melatonin 9 mg 10/08/23 21:00 10/08/23 21:51 Melatonin 3 Mg Tablet PO 9 mg BEDTIME DANA Administration Methimazole 5 mg 10/08/23 09:00 10/08/23 09:18 Methimazole 5 Mg Tablet PO 5 mg DAILY DANA Administration Mirabegron 50 mg 10/08/23 09:00 10/08/23 09:19 Mirabegron 50 Mg Tab.Er.24h PO 50 mg DAILY DANA Administration Multivitamins/Vitamin C 1 tab 10/08/23 09:00 10/09/23 09:44 Multivitamin Tablet PO 1 tab DAILY DANA Administration Discontinued Medications Generic Name Dose Route Start Last Admin Trade Name Freq PRN Reason Stop Dose Admin Diphenhydramine HCl 50 mg 10/08/23 11:22 10/08/23 11:25 Diphenhydramine Hcl 25 Mg Capsule PO 10/08/23 11:23 50 mg ONCE ONE Administration Olanzapine 10 mg 10/07/23 21:47 10/07/23 23:09 Olanzapine Odt 10 Mg Tab.Rapdis TRANSLINGU 10/07/23 21:48 10 mg ONCE ONE Administration Medical Decision Making Medical Decision Making MDM Narrative: This is a 68-year-old female, with a past medical history with a past medical history of toxic multinodular goiter, vitamin-D deficiency, hyperthyroidism on methimazole, history ESBL E coli UTI, history colon cancer s/p colectomy with anastomosis, lung mass, developmental delay, presenting to the emergency department as she says that she has not slept. She also endorses she has not had a bowel movement in 1 week. Annetta from the senior care reports at bedside, who reports that she has not been herself since her discharge from the hospital 2 days ago. She states that she has had increased aggression and agitation, as well as increased confusion. Given these findings, will obtain labs, CXR, KUB given recent SBO, UA. If workup is negative, Psychiatry, care team consult will have to be performed given increased agitation within the facility. If any questions, call LAY Gomez at [phone] Differential Diagnosis Differential Diagnoses: The differential diagnosis associated with the presentation includes Urinary tract infection, small-bowel obstruction, electrolyte abnormality, Admission/Observation Consideration of admission/observation: Escalation of care including admission/observation considered Escalation care including admission observation considered given change in mental status. Lab Data MDM Lab Attestation statement: I reviewed the patient's lab results. 10/07/23 14:54 10/07/23 14:54 Labs: Lab Results 10/07/23 10/07/23 10/07/23 Range/Units 14:54 16:04 19:39 WBC 8.1 (4.8-10.8) X10*3/uL RBC 3.27 L (4.20-5.50) X10*6/uL Hgb 9.2 L (12.0-16.0) g/dl Hct 29.0 L (37.0-47.0) % MCV 88.7 (80.0-98.0) fL MCH 28.1 (27.0-33.0) pg MCHC 31.7 (31.0-35.0) g/dl RDW 15.7 (11.0-16.0) % Plt Count 234 (160-400) X10*3/uL MPV 9.1 L (9.4-12.3) fL Immature Gran % (Auto) 0.1 (0.0-0.4) % Neut % (Auto) 65.1 (45-73) % Lymph % (Auto) 25.1 (20-40) % Rabun % (Auto) 7.0 (2-11) % Eos % (Auto) 2.3 (0-4) % Baso % (Auto) 0.4 (0-2) % Lymph # (Auto) 2.0 (1.2-4.9) X10*3/uL Rabun # (Auto) 0.6 (0.1-1.2) X10*3/uL Eos # (Auto) 0.2 (0.0-0.4) X10*3/uL Baso # (Auto) 0.0 (0.0-0.2) X10*3/uL Abs Immat Gran (auto) 0.01 (0.00-0.03) X10*3/uL Absolute Neuts (auto) 5.3 (2.0-8.3) x10*3/uL Absolute Nucleated RBC 0.000 (0.0-0.012) X10*3/uL Nucleated RBC % (auto) 0.0 (0.0-0.2) /100WBC Sodium 140 (135-145) mmol/L Potassium 4.3 (3.3-5.1) mmol/L Chloride 106 (96-108) mmol/L Carbon Dioxide 27 (22-29) mmol/L Anion Gap 11 L (12-20) BUN 19 H (9-16) mg/dL Creatinine 0.75 (0.5-1.4) mg/dL Estim Creat Clear Calc 55.9 Estimated GFR > 60 Random Glucose 113 (60-115) mg/dL Calcium 8.7 (8.4-10.2) mg/dL Magnesium 1.9 (1.6-2.6) mg/dL Total Bilirubin 0.2 (0.0-1.0) mg/dL Direct Bilirubin < 0.2 (0.0-0.5) mg/dL AST 20 (5-31) U/L ALT 17 (0-31) U/L Alkaline Phosphatase 115 (39-117) U/L Total Protein 6.5 (6.5-8.0) g/dL Albumin 3.1 L (3.5-5.0) g/dL Urine Color Yellow Urine Appearance Cloudy Urine pH 6.0 (5.0-9.0) Ur Specific Cressey 1.015 (1.005-1.025) Urine Protein 100 (2+) H (Neg-Trace) mg/dL Urine Glucose (UA) Negative (Negative) mg/dL Urine Ketones Negative (Negative) mg/dL Urine Blood Trace H (Negative) Urine Nitrite Negative (Negative) Ur Leukocyte Esterase Moderate (2+) H (Negative) Urine RBC 0-2 (0-2) /HPF Urine WBC >50 H (0-5) /HPF Ur Squamous Epith Cells 0-2 (0-2) /HPF Urine Bacteria None Seen (None Seen) Hyaline Casts 0-2 (0-2) /LPF COVID-19 (NAINA) Negative (Negative) COVID-19 Clin Com See Note Influenza Type A (LENORE) Negative (Negative) Influenza Type B (LENORE) Negative (Negative) Influenza A & B Note See Note Radiology Impression Discussion of test interpretation with radiology: I have reviewed the radiologist's reading. Discharge Plan Discharge Clinical Impression: Agitation, Enlarged pituitary gland Patient Disposition: Home, Self-Care Additional Instructions: There was an abnormal finding on the CT of the head/brain as listed below. This requires further outpatient workup including an MRI of the brain with and without contrast. Please consult with patient's primary care provider to have MRI ordered/scheduled. CT/CT head/brain wo IV con IMPRESSION: 1. No acute intracranial process seen. 2. Prominent enlarged hyperdense pituitary gland. Recommend MRI brain with and without contrast with attention to pituitary gland Prescriptions: New olanzapine 2.5 mg tablet 2.5 mg PO BID PRN (Reason: agitation) Qty: 10 0RF Rx Instructions: Take one tablet twice per day as needed for agitation. No Action methimazole 5 mg tablet 5 mg PO DAILY Qty: 30 5RF carbamazepine 200 mg tablet 200 mg PO DAILY carbamazepine 200 mg tablet 400 mg PO BEDTIME aripiprazole 15 mg tablet 15 mg PO DAILY multivitamin Tablet 1 tab PO DAILY aspirin 81 mg Tablet,Delayed Release (Dr/Ec) 81 mg PO DAILY acetaminophen 500 mg Tablet 500 mg PO Q4H PRN (Reason: pain/fever) nystatin 100,000 unit/gram Powder 1 appl TOPICAL BID PRN (Reason: Rash) Rx Instructions: rash in skin folds clotrimazole 1 % Cream 1 appl TOPICAL BID Rx Instructions: apply under breast loratadine 10 mg Tablet 10 mg PO DAILY triamcinolone acetonide 0.1 % ointment 1 appl topical BID PRN (Reason: Skin Irritation) ibuprofen 400 mg Tablet 400 mg PO TID PRN (Reason: Pain) balsam herb-zinc oxide Ointment 1 ea TOPICAL BID Rx Instructions: to rash, groin, buttocks Icy Hot 30-10 % Cream 1 appl TOPICAL BID Rx Instructions: to back and shoulders ferrous sulfate 325 mg (65 mg iron) Tablet 325 mg PO MOWEFR diphenhydramine HCl [Banophen] 25 mg Tablet 25 mg PO TID PRN (Reason: Rash) Hold Instructions: minimize use if able Estring 2 mg (7.5 mcg /24 hour) Ring 1 vag ring VAGINAL Q90D imipramine HCl 50 mg Tablet 25 mg PO BEDTIME 30 Days Qty: 15 0RF docusate sodium 100 mg Capsule 100 mg PO BID 30 Days Qty: 60 0RF sennosides [Senna Lax] 8.6 mg Tablet 8.6 mg PO BEDTIME PRN (Reason: constipation) Qty: 30 0RF polyethylene glycol 3350 17 gram/dose Powder 17 g PO DAILY 30 Days Qty: 510 0RF sennosides [senna] 8.6 mg tablet 8.6 mg PO BEDTIME PRN (Reason: constipation) Qty: 30 0RF Rx Instructions: no BM in two days dextromethorphan-guaifenesin 10-200 mg/5 mL Liquid 10 ml PO Q6H PRN (Reason: Cough) benztropine 1 mg tablet 1 mg PO DAILY Hold Instructions: hold for now. follow up with outpatient prescriber melatonin 10 mg Tablet 10 mg PO BEDTIME Myrbetriq 50 mg tablet extended release 24 hr 50 mg PO DAILY Referrals: Physician,Unknown J [Primary Care Provider] -
[2023-10-07 14:19] VITALS: BP 146/65; PULSE 80; RESP 16; TEMP 37; O2SAT 96; BMI 24.2
[2023-10-07 16:00] VITALS: BP 146/69; PULSE 63; RESP 16; TEMP 36.2; O2SAT 97
--- NOTE | 2023-10-07 16:02 | MHC.EDTECH ---
This pct assumed care of pt at 1500 ,vitals taken ,flu/covid swab collected and sent to lab .
[2023-10-07 17:01] LABS: Alanine Aminotransferase 17 U/L (0-31); Albumin Level 3.1 g/dL (3.5-5.0); Alkaline Phosphatase 115 U/L (39-117); Anion Gap 11 (12-20); Aspartate Amino Transferase 20 U/L (5-31); Bilirubin Direct < 0.2 mg/dL (0.0-0.5); Bilirubin Total 0.2 mg/dL (0.0-1.0); Blood Urea Nitrogen 19 mg/dL (9-16); Calcium 8.7 mg/dL (8.4-10.2); Carbon Dioxide 27 mmol/L (22-29); Chloride 106 mmol/L (96-108); Creatinine Clr Calc Pharmacy 55.9; Estimated Glomerular Filt Rate > 60; Glucose Random 113 mg/dL (60-115); Magnesium 1.9 mg/dL (1.6-2.6); Potassium 4.3 mmol/L (3.3-5.1); Sodium 140 mmol/L (135-145); Total Protein 6.5 g/dL (6.5-8.0)
--- NOTE | 2023-10-07 19:00 | PC.NURSE ---
This ad writer assumed care of this Pt at 1900. Pt A&O to self and place. Pt laying in stretcher, calm and cooperative, reports chronic back pain. Pt given PO fluids per request.
[2023-10-07 19:07] VITALS: BP 162/70; PULSE 62; RESP 16; TEMP 36.6; O2SAT 97
--- NOTE | 2023-10-07 19:39 | MHC.EDTECH ---
PATIENT WAS GIVEN DINNER ATE 100% AND DRANK 360 ML FLUIDS ,BLOOD DRAWN AND URINE SAMPLE COLLECTED AND SENT TO LAB .
--- NOTE | 2023-10-07 21:31 | PC.NURSE ---
Med rec done by Pt med list.
--- NOTE | 2023-10-08 00:40 | MHC.EDTECH ---
This tech found pt incontinent of urine. Moved pt into room 6, cleaned pt and changed linens.
--- NOTE | 2023-10-08 01:05 | PC.NURSE ---
Pt given sandwich and PO fluids per request.
[2023-10-08 06:41] VITALS: BP 172/85; PULSE 60; RESP 12; TEMP 36.9; O2SAT 100
--- NOTE | 2023-10-08 06:46 | PC.NURSE ---
Pt incontinent of urine, incontinent care provided. Purewick placed.
--- NOTE | 2023-10-08 06:57 | PC.NURSE ---
Addendum entered by Dai Cortez 10/08/23 07:08: No aggressive behavior throughout night. Original Note: MRI screening form done and faxed.
[2023-10-08 08:18] VITALS: BP 167/75; PULSE 60; RESP 14; TEMP 37; O2SAT 100
--- NOTE | 2023-10-08 08:23 | PC.NURSE ---
patient awake with even and unlabored respirations. awaiting MRI at this time. cleaned and repositioned in room with purewick in place. offering no other complaints, call carrero within reach. patient takes medications all at once with water.
--- NOTE | 2023-10-08 09:28 | PC.NURSE ---
psychiatry meeting with patient at this time, patient remains in behavioral control.
--- NOTE | 2023-10-08 09:36 | PM.PSYCN ---
History of Present Illness Date of Service: 10/08/2023 Chief Complaint: INSOMNIA,FROM CARE HOME Reason for Consult: Insomnia, Agitation Requesting physician: Majo Alfredo Sources of Information: patient interviewed and chart reviewed HPI Narrative: 68 yo female, returns to ER post discharge 10/05 with insomnia, agitation. Team decreased imipramine to 25 mg, held Benztropine and pt returned to her home for ~48 hours. Her residential team brought her back in as they observed agitation and insomnia. ER team report no behaviors of concern since re admission. Past Psychiatric History: OP: Tammy Randall past medication trials: abilify, carbamazepine, cogentin Medical Evaluation Reviewed: Yes [facility] Medical History Toxic multinodular goiter Toxic multinodular goiter Vitamin D deficiency Hyperthyroidism Multinodular thyroid Colon cancer Lung mass Developmental delay, mild Arthritis Surgical History History of biopsy Hx of colonic polyps Hx of colonoscopy Diagnostics Vital Signs (24Hr): Vital Signs - 24 hr 10/07/23 14:19 10/07/23 16:00 10/07/23 19:07 Temperature 98.6 F 97.2 F 97.8 F Pulse Rate 80 63 62 Respiratory Rate 16 16 16 Blood Pressure 146/65 H 146/69 H 162/70 H Pulse Oximetry 96 97 97 Oxygen Delivery Method Room Air Room Air Room Air 10/08/23 06:41 10/08/23 08:18 Temperature 98.5 F 98.6 F Pulse Rate 60 60 Respiratory Rate 12 14 Blood Pressure 172/85 H 167/75 H Pulse Oximetry 100 100 Oxygen Delivery Method Room Air Room Air BMI result Body Mass Index 24.2 Labs 10/07/23 14:54 10/07/23 14:54 Labs: Laboratory Results - last 48 hr 10/07/23 10/07/23 10/07/23 14:54 16:04 19:39 WBC 8.1 RBC 3.27 L Hgb 9.2 L Hct 29.0 L MCV 88.7 MCH 28.1 MCHC 31.7 RDW 15.7 Plt Count 234 MPV 9.1 L Immature Gran % (Auto) 0.1 Neut % (Auto) 65.1 Lymph % (Auto) 25.1 Pettis % (Auto) 7.0 Eos % (Auto) 2.3 Baso % (Auto) 0.4 Lymph # (Auto) 2.0 [place]is # (Auto) 0.6 Eos # (Auto) 0.2 Baso # (Auto) 0.0 Abs Immat Gran (auto) 0.01 Absolute Neuts (auto) 5.3 Absolute Nucleated RBC 0.000 Nucleated RBC % (auto) 0.0 Sodium 140 Potassium 4.3 Chloride 106 Carbon Dioxide 27 Anion Gap 11 L BUN 19 H Creatinine 0.75 Estim Creat Clear Calc 55.9 Estimated GFR > 60 Random Glucose 113 Calcium 8.7 Magnesium 1.9 Total Bilirubin 0.2 Direct Bilirubin < 0.2 AST 20 ALT 17 Alkaline Phosphatase 115 Total Protein 6.5 Albumin 3.1 L Urine Color Yellow Urine Appearance Cloudy Urine pH 6.0 Ur Specific [place] 1.015 Urine Protein 100 (2+) H Urine Glucose (UA) Negative Urine Ketones Negative Urine Blood Trace H Urine Nitrite Negative Ur Leukocyte Esterase Moderate (2+) H Urine RBC 0-2 Urine WBC >50 H Ur Squamous Epith Cells 0-2 Urine Bacteria None Seen Hyaline Casts 0-2 COVID-19 (NAINA) Negative COVID-19 Clin Com See Note Influenza Type A (LENORE) Negative Influenza Type B (LENROE) Negative Influenza A & B Note See Note Imaging Radiology Impressions: ITS Impressions Chest X-Ray 10/07/23 15:10 IMPRESSION: Cardiomegaly without congestion. Mild widening of the mediastinum. Similar findings were seen on previous exam 10/02/2023. Significant constipation without obstruction. Moderate spondylosis dorsal and lumbar spine KUB X-Ray 10/07/23 15:10 IMPRESSION: Cardiomegaly without congestion. Mild widening of the mediastinum. Similar findings were seen on previous exam 10/02/2023. Significant constipation without obstruction. Moderate spondylosis dorsal and lumbar spine Head CT 10/07/23 15:55 IMPRESSION: 1. No acute intracranial process seen. 2. Prominent enlarged hyperdense pituitary gland. Recommend MRI brain with and without contrast with attention to pituitary gland 3. Small polyp or retention cyst right maxillary sinus. Mild mucoperiosteal thickening left sphenoid sinus. Mental Status Exam Mental Status Exam Patient Appearance: Appropriate Patient Orientation: Person and Place Level of Consciousness: Alert Patient Behavior: Cooperative Mood Description: Flat Affect Description: Flat Ability to Follow Directions: Good Speech Pattern: Spontaneous Speech Memory Description: Remote Impaired and Episodic Impaired Hallucinations: None Delusions: Not Present Thought Process: Distracted Judgement: Fair Medications Medications Current Medications Acetaminophen (Acetaminophen 325 Mg Tablet) 650 mg PO Q4H PRN PRN Reason: pain/fever Aripiprazole (Aripiprazole 15 Mg Tablet) 15 mg PO DAILY [facility] Last Admin: 10/08/23 08:19 Dose: 15 mg Aspirin (Aspirin Enteric Coated 81 Mg Tablet.) 81 mg PO DAILY [facility] Last Admin: 10/08/23 08:19 Dose: 81 mg Benztropine Mesylate (Benztropine Mesylate 1 Mg Tablet) 1 mg PO DAILY [facility] Last Admin: 10/08/23 08:19 Dose: 1 mg Carbamazepine (Carbamazepine 200 Mg Tablet) 200 mg PO DAILY [facility] Last Admin: 10/08/23 08:19 Dose: 200 mg Carbamazepine (Carbamazepine 200 Mg Tablet) 400 mg PO BEDTIME [facility] Last Admin: 10/07/23 23:09 Dose: 400 mg Clotrimazole (Clotrimazole 1 % Cream 15 Gm Tube) 1 appl TOPICAL BID [facility]; Protocol Last Admin: 10/08/23 09:19 Dose: 1 appl Docusate Sodium (Docusate Sodium 100 Mg Capsule) 100 mg PO BID [facility] Last Admin: 10/08/23 08:19 Dose: 100 mg Ferrous Sulfate (Ferrous Sulfate 324 Mg Tablet.) 324 mg PO [id number] [facility] Guaifenesin/Dextromethorphan (Guaifenesin Dm 200/20/10 Ml 10 Ml Syrup) 10 ml PO Q6H PRN PRN Reason: Cough Imipramine HCl (Imipramine Hcl 50 Mg Tablet) 25 mg PO BEDTIME [facility] Last Admin: 10/07/23 23:12 Dose: Not Given Loratadine (Loratadine 10 Mg Tablet) 10 mg PO DAILY [facility] Last Admin: 10/08/23 08:19 Dose: 10 mg Melatonin (Melatonin 3 Mg Tablet) 9 mg PO BEDTIME [facility] Methimazole (Methimazole 5 Mg Tablet) 5 mg PO DAILY [facility] Last Admin: 10/08/23 09:18 Dose: 5 mg Mirabegron (Mirabegron 50 Mg Tab.Er.24h) 50 mg PO DAILY [facility] Last Admin: 10/08/23 09:19 Dose: 50 mg Multivitamins/Vitamin C (Multivitamin Tablet) 1 tab PO DAILY [facility] Last Admin: 10/08/23 08:19 Dose: 1 tab Nystatin (Nystatin Powder 15 Gm Bottle) 1 appl TOPICAL BID PRN; Protocol PRN Reason: Rash Triamcinolone Acetonide (Triamcinolone Acet 0.1 % Oint 15 Gm Tube) 1 appl TOPICAL BID PRN PRN Reason: Skin Irritation Allergies Allergies Allergy/AdvReac Type Severity Reaction Status Date / Time adhesive tape Allergy Intermediate itching Verified 10/07/23 21:25 and skin redness latex Allergy Intermediate skin rash Verified 10/07/23 21:25 and itching Seasonal Allergies Allergy Itching Verified 10/07/23 21:25 weed pollen Allergy stuffy nose Verified 10/07/23 21:25 DUST Allergy Unknown ITCHY/WATERY Uncoded 03/09/23 12:45 EYES surgical paper tape Allergy Unknown rash Uncoded 03/09/23 12:45 Tide Allergy Unknown rash Uncoded 03/09/23 12:45 Assessment & Plan Assessment & Plan (1) Agitation: Status: Acute Code(s): R45.1 - Restlessness and agitation Plan 68 yo female returns from her [facility] with agitation, insomnia. MRI is pending. Suggest --Olanzapine 2.5 mg po tid prn agitation/sleep. Total time managing care of this patient today ____ minutes.
[2023-10-08 11:18] VITALS: BP 174/69; PULSE 60; RESP 16; TEMP 36.9; O2SAT 99
--- NOTE | 2023-10-08 11:26 | PC.NURSE ---
rash noted to patient's right arm, denies any discomfort or itchiness at this time. airway patent. medicated per the NOV.
--- NOTE | 2023-10-08 12:18 | PC.NURSE ---
incontinent of urine, bed cleaned and changed. patient walked to bathroom using walker with steady gait.
--- NOTE | 2023-10-08 12:18 | MHC.CM.ED ---
Received case management consult overnight. Patient is from a care home. Came in due to agitation. Psych consult is currently pending. Will defer CM consult until that is completed. Continue to monitor for d/c needs.
--- NOTE | 2023-10-08 14:40 | PC.NURSE ---
patient continues to ambulate to bathroom with steady gait. rash has improved on arm.
--- NOTE | 2023-10-08 16:24 | PC.NURSE ---
continues to alternate between recliner and bed, resting on and off. eating crackers, pudding, and drinking cranberry juice.
--- NOTE | 2023-10-08 21:42 | PC.NURSE ---
Called pharmacy regarding missing med in pyxis.
[2023-10-08 21:49] VITALS: BP 138/52; PULSE 78; RESP 14; TEMP 36.9; O2SAT 96
--- NOTE | 2023-10-09 03:46 | PC.NURSE ---
Pt ambulatory with walker to the bathroom independently. Able to make needs known. Reports no concerns at this time. Will continue to monitor.
[2023-10-09 06:35] VITALS: BP 158/62; PULSE 56; RESP 14; TEMP 36.6; O2SAT 98
--- NOTE | 2023-10-09 10:31 | MHC.CM.ED ---
Patient remains in ER. Evaluated by psych. Zyprexa 2.5mg PO TID PRN agitation/insomnia recomemnded. Spoke with Patricia, Shelter RN, via telephone at [phone]. Patricia requesting med be changed to every 8 hours as needed. Devi CAIN aware. Patient can return to intermediate. T/W spoke with intermediate via telephone at [phone]. They do not have the staff to transport patient home. Damaso AGUILAR booked for 12pm. Med nec with chart. Patient, Home CHUN and Devi CAIN aware. Patricia CHUN requesting ER info be faxed to [phone]. Faxed by T/W as requested. Continue to monitor for d/c needs.
[2023-10-09 19:24] LABS: Prolactin 5.6 ng/mL
== END 2023-10-09 12:05 | disposition home or self-care (01) ==
PROVIDERS: Physician Assistant; Physician Assistant Medical; Emergency Provider Student in an Organized Health Care Education/Training Program; PCP Internal Medicine
DX: R45.1 Restlessness and agitation (principal); E23.6 Other disorders of pituitary gland; G47.00 Insomnia, unspecified; E05.20 Thyrotoxicosis with toxic multinodular goiter without thyrotoxic crisis or storm; Z11.52 Encounter for screening for COVID-19; Z85.038 Personal history of other malignant neoplasm of large intestine; Z79.899 Other long term (current) drug therapy
CPT/HCPCS: 36415; 70450; 71045; 74018; 80048; 80076; 81001; 83735; 84146; 85025; 87086; 87502; 87635; 99284; 99285

== ENCOUNTER → 2023-10-07 14:28 | Outpatient (BNV) | payer MEDICARE, MEDICAID, SELFPAY | PROVIDERS: Emergency Provider Student in an Organized Health Care Education/Training Program; PCP Internal Medicine; Visit Provider Clinical Nurse Specialist Psychiatric/Mental Health, Adult | DX: R45.1 Restlessness and agitation (principal) | CPT/HCPCS: 99283 ==

== ENCOUNTER → 2023-11-03 09:15 | Outpatient (BNV) | payer MEDICARE, MEDICAID, SELFPAY | PROVIDERS: PCP Internal Medicine; Visit Provider Radiology Diagnostic Radiology | DX: Z12.31 Encounter for screening mammogram for malignant neoplasm of breast (principal) | CPT/HCPCS: 77063; 77067 ==

== ENCOUNTER 2023-11-03 09:21 | Outpatient (REF) | payer MEDICARE, MEDICAID, SELFPAY ==
--- NOTE | ~2023-11-03 | MM_ITS ---
EXAMINATION: MM SCREENING DIGITAL BREAST TOMOSYNTHESIS, BILATERAL CLINICAL INFORMATION: Screening. Asymptomatic. COMPARISON: Mammography: This study is compared with prior exams dating back to 2019. TECHNIQUE: Digital breast tomosynthesis is performed in both the craniocaudal and mediolateral oblique views along with computer-aided detection (CAD). Synthesized 2D images are generated from the tomosynthesis. FINDINGS: The breasts are almost entirely fatty (ACR BI-RADS breast composition Category a). The breasts are markedly reduced in size. This can be seen in the setting of significant weight loss. This change has occurred since the last mammogram from October 2022. There are no significant masses, abnormal calcifications, or other abnormalities. MM/MM tomosynthesis screening BI IMPRESSION: No mammographic evidence of malignancy. ASSESSMENT: BI-RADS BI-RADS 1 - Negative RECOMMENDATION: Routine annual mammography screening. 1 year F/U This examination should not preclude the clinical evaluation of a suspicious palpable abnormality. This patient's information was entered into a reminder system with a target due date for their next mammogram.
== END 2023-11-03 09:22 | disposition home or self-care (01) ==
LOC: HO.MAMMO 09:21
PROVIDERS: PCP Internal Medicine; Visit Provider Internal Medicine
DX: Z12.31 Encounter for screening mammogram for malignant neoplasm of breast (principal)
CPT/HCPCS: 77063; 77067

== ENCOUNTER 2023-11-13 04:30 | Outpatient (REF) | payer MEDICARE, MEDICAID, SELFPAY ==
[2023-11-14 13:45] LABS: Appearance Urine Clear; Color Urine Yellow; Glucose Urine UA Negative (Negative); Leukocyte Esterase Urine Large (3+) (Negative); Nitrite Urine Negative (Negative); PH 6.5 (5.0-9.0); UMIC TRIGGER UACC YES; Urine Blood Negative (Negative); Urine Ketones Negative (Negative); Urine Protein Negative (Neg-Trace)
[2023-11-14 13:58] LABS: Bacteria Urine None Seen (None Seen); Hyaline Casts Urine 0-2 /LPF (0-2); RBC Urine 0-2 /HPF (0-2); Squamous Epithelial Cell Urine 0-2 /HPF (0-2); UACC Culture Trigger YES; WBC Urine >50 /HPF (0-5)
== END 2023-11-14 11:24 | disposition home or self-care (01) ==
LOC: HO.HMGCLNP 04:30
PROVIDERS: PCP Internal Medicine; Visit Provider Internal Medicine
DX: R30.0 Dysuria (principal); R41.0 Disorientation, unspecified
CPT/HCPCS: 81001; 87086; 87088; 87186

== ENCOUNTER 2023-11-28 14:35 | Outpatient (AMB) | payer MEDICARE, MEDICAID, SELFPAY ==
[2023-11-28 14:38] VITALS: BP 158/96; PULSE 72; BMI 23.4
--- NOTE | 2023-11-28 14:38 | MHC.OFFVIS ---
Intake Vital Signs 11/28/23 14:38 Height 5 ft 2 in Weight 128 lb 1.417 oz BMI 23.4 BP 158/96 H Blood Pressure Location Lt brachial Position Sitting Pulse 72 Pulse Source Pulse Oximeter Intake Visit Reasons: MNG Intake Note: Patient presents today for MNG follow up. Wireless Telegrapher Required: No Accompanied by: Other Relationship Allergies adhesive tape Allergy (Intermediate, Verified 11/28/23 14:45) itching and skin redness latex Allergy (Intermediate, Verified 11/28/23 14:45) skin rash and itching Seasonal Allergies Allergy (Verified 11/28/23 14:45) Itching weed pollen Allergy (Verified 11/28/23 14:45) stuffy nose DUST Allergy (Unknown, Uncoded 11/28/23 14:45) ITCHY/WATERY EYES surgical paper tape Allergy (Unknown, Uncoded 11/28/23 14:45) rash Tide Allergy (Unknown, Uncoded 11/28/23 14:45) rash Medication List - Last Reconciled 11/28/23 by Harvinder Welch MD acetaminophen 500 mg PO Q4H PRN aripiprazole 15 mg PO DAILY aspirin 81 mg PO DAILY balsam herb-zinc oxide 1 ea topical BID benztropine 1 mg PO DAILY carbamazepine 200 mg PO DAILY carbamazepine 400 mg PO BEDTIME clotrimazole 1% 1 appl topical BID dextromethorphan-guaifenesin 10-200 mg/5 mL 10 mL PO Q6H PRN diphenhydramine HCl (Banophen) 25 mg PO TID PRN docusate sodium 100 mg PO BID 30 days estradiol (Estring) 1 vag ring vaginal Q90D ferrous sulfate 325 mg PO MOWEFR ibuprofen 400 mg PO TID PRN imipramine HCl 25 mg (1/2 x 50 mg) PO BEDTIME 30 days levothyroxine 88 mcg PO DAILY loratadine 10 mg PO DAILY melatonin 10 mg PO BEDTIME methimazole 5 mg PO DAILY methyl salicylate-menthol 30-10 % (Icy Hot) 1 appl topical BID mirabegron ER (Myrbetriq) 50 mg PO DAILY multivitamin 1 tab PO DAILY nystatin 1 appl topical BID PRN olanzapine 2.5 mg PO BID PRN polyethylene glycol 3350 17 grams PO DAILY 30 days sennosides (Senna Lax) 8.6 mg PO BEDTIME PRN sennosides (senna) 8.6 mg PO BEDTIME PRN triamcinolone acetonide 0.1% 1 appl topical BID PRN HPI HPI Comments History of Present Illness Details 68 YO F with a significant psychiatric history who is seen in F/U for a toxic MNG. Patient last saw Dr. Romero 03/09/2023 She underwent workup by her PCP due to weight loss. This revealed hyperthyroidism as well as multiple thyroid nodules. She was subsequently referred to Endocrinology. She reported weight loss of 30 lbs, unintentional over 3 months. She also reported frequent bowel movements, tremors and insomnia. Labs revealed subclinical hyperthyroidism. All antibodies were negative. Thyroid uptake and scan was completed 10/21/2022 and revealed 16% uptake at 4 hours and 47.4% uptake at 24 hours. This was in a heterogenous pattern consistent with a toxic MNG. She as started on methimazole 5 mg PO daily and TFTs are now WNL. She underwent an US head and neck which revealed multiple bilateral thyroid nodules. She presented for FNA biopsy of these nodules, but was unable to tolerate even the pressure from the ultrasound probe. Biopsy was aborted. She opted for a total thyroidectomy and referral was sent. She has an appointment scheduled with Dr. Valladares this June. Denies any history of head or neck irradiation. She does have a history of colon cancer but is now in remission. She did receive radiation therapy for this to her abdomen. Denies any family history of thyroid cancer. Thyroid US: 09/27/2022 Right Thyroid Lobe: 5.3 x 2.2 x 3.0 cm, volume 18.3 mL. Parenchyma: The gland echotexture is heterogeneous. Thyroid vascularity is increased. Left Thyroid Lobe: 4.4 x 2.5 x 1.5 cm, volume 8.6 mL. Parenchyma: The gland echotexture is heterogeneous. Thyroid vascularity is increased. Isthmus: 0.8 cm in maximum AP dimension. There are numerous small cysts and colloid cysts. Estimated total number of nodules greater than or equal to 1 cm: 2. Press Secretary nodules are described as follows: 1. Location: Right mid/lower pole. ?? ? Size: 4.7 x 2.4 x 2.6 cm, volume 15.4 mL. ?? ? Nodule characteristics: ?? ? Composition: Solid/almost completely solid (2). ?? ? Echogenicity: Isoechoic (1). ?? ? Shape: Not taller than wide (0). ?? ? Margins: Lobulated (2). ?? ? Echogenic Foci: Macrocalcifications (1). Punctate echogenic foci (3). ?? ? ACR TI-RADS total points: 9. ?? ? ACR TI-RADS category: 5. 2. Location: Left lower pole. ?? ? Size: 2.5 x 1.6 x 2.0 cm, volume 4.2 mL. ?? ? Nodule characteristics: ?? ? Composition: Mixed cystic and solid (1). ?? ? Echogenicity: Hypoechoic (2). ?? ? Shape: Not taller than wide (0). ?? ? Margins: Ill-defined (0). ?? ? Echogenic Foci: Punctate echogenic foci (3).? ACR TI-RADS total points: 6. ?? ? ACR TI-RADS category: 4. NODES: No lymphadenopathy is seen in the tissue surrounding the thyroid gland. Thyroid Uptake and Scan: 10/21/2022 FINDINGS: The uptake is 16.0% at 4 hours and 47.4% at 24 hours (Normal radioiodine uptake at 24 hours is 10% to 30%). The radioiodine uptake is moderately elevated. The radiopertechnetate thyroid scintigram shows the thyroid gland to be asymmetrical with the right lobe significantly larger than the left. There is heterogeneous distribution in both lobes. This is more pronounced on the left with a rounded focus of relatively decreased activity present in the upper pole and small rounded foci, probably at least 3 in the remainder the left lobe. In the right lobe there is a small focus of decreased activity medially in the mid pole but otherwise, although heterogeneous, no discrete focal abnormalities are present. 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 The significant elevation of the radioiodine uptake is more suggestive of Graves' disease. If clinically relevant, these could be distinguished by the presence or absence of thyroid stimulating immunoglobulins. The radioiodine uptake is moderately elevated. Labs: Laboratory Tests 10/17/22 10/17/22 10/17/22 11:39 11:39 11:39 Albumin 3.7 25-OH Vitamin D To tucker 40.4 TSH 0.10 L Free T4 0.85 Total T3 100 Thyroid Stim Immun oglob <89 PTH Intact 60 Calcium (PTH Intac t) 8.9 Thyroglobulin Anti body <1 Thyroid Peroxidase Ab 1 TSH Receptor Ab <1.00 Laboratory Tests 01/30/23 02:34 TSH 1.62 status post total thyroidectomy 10/18/2023 with benign pathology. Currently on 88 mcg levothyroxine [facility] Medical History (Updated 11/28/23 @ 14:57 by Harvinder Welch MD) Post-surgical hypothyroidism History of ESBL E. coli infection Toxic multinodular goiter Toxic multinodular goiter Vitamin D deficiency Hyperthyroidism Multinodular thyroid Colon cancer Lung mass Developmental delay, mild Arthritis Surgical History Hx of total thyroidectomy History of biopsy Hx of colonic polyps Hx of colonoscopy Family History Father No problems noted. Mother Medical history unknown Social History Household Members: Other Household Members Other:: gr home Unable to assess alcohol history related to: Unknown Alcohol intake: never Patient Tobacco Use Status: Never used Tobacco Advance Directives Date on File: 01/05/21 service: No Current occupational status: disabled Current occupation: right handed Physical Exam Vital Signs: Last Vital Signs Pulse 72 11/28/23 14:38 BP 158/96 H 11/28/23 14:38 BMI result Body Mass Index 23.4 Const Other: Healing scar status post thyroidectomy Assessment & Plan Assessment & Plan (1) Post-surgical hypothyroidism: Code(s): E89.0 - Postprocedural hypothyroidism Plan: This is a 68-year-old white female status post total thyroidectomy for multinodular goiter with benign pathology. She is currently on levothyroxine 88 mcg appears to be clinically euthyroid Plan is to check TSH, free T4, calcium and albumin. Will adjust levothyroxine accordingly Orders: Orders Calcium Today E89.0 - Postprocedural hypothyroidism Free T4 (Free Thyroxine) Today E89.0 - Postprocedural hypothyroidism Thyroid Stimulating Hormone Today E89.0 - Postprocedural hypothyroidism Albumin Level Today E89.0 - Postprocedural hypothyroidism Coding Level of Care Code Est Pt Level 3 (88550) Diagnoses Post-surgical hypothyroidism E89.0
== END 2023-11-28 15:11 | disposition home or self-care (01) ==
PROVIDERS: PCP Internal Medicine; Visit Provider Internal Medicine Endocrinology, Diabetes & Metabolism
DX: E89.0 Postprocedural hypothyroidism (principal)
CPT/HCPCS: 99213

== ENCOUNTER → 2023-11-28 14:35 | Outpatient (BNVA) | payer MEDICARE, MEDICAID, SELFPAY | PROVIDERS: PCP Internal Medicine; Visit Provider Internal Medicine Endocrinology, Diabetes & Metabolism | DX: E89.0 Postprocedural hypothyroidism (principal) | CPT/HCPCS: 99212 ==

== ENCOUNTER 2024-01-25 16:44 | Outpatient (REF) | payer MEDICARE, MEDICAID, SELFPAY ==
--- NOTE | ~2024-01-25 | XR_ITS ---
EXAMINATION: XR HAND, RIGHT CLINICAL INFORMATION: Bilateral hand pain COMPARISON: None available. TECHNIQUE: PA, lateral, and oblique views of the right hand. FINDINGS: The bones are intact. No fracture. Alignment is anatomic. There is mild degenerative change of the PIP joints of the thumb, index and middle finger. There is mild degenerative change of the DIP joints of the index and middle finger. There is mild degenerative change of the first carpometacarpal joint and the first metacarpophalangeal joint. Small erosions are seen within the head of the first metacarpal. XR/XR hand RT min 3V IMPRESSION: 1. Mild degenerative changes. 2. Small erosions within the head of the first metacarpal.
--- NOTE | ~2024-01-25 | XR_ITS ---
EXAMINATION: XR HAND, LEFT CLINICAL INFORMATION: Bilateral hand pain COMPARISON: Same-day right hip TECHNIQUE: PA, lateral, and oblique views of the left hand. FINDINGS: Plate and screws are seen within the distal radius transfixing a healed comminuted distal radial fracture. Again noted is an ulnar styloid fragment in the radial styloid fragment. No acute fracture. Alignment is anatomic. There is marked degenerative change of the first carpometacarpal joint. The radiocarpal joint is narrow. There are moderate to marked degenerative changes of the PIP and DIP joints of the index and middle finger. There is mild degenerative change of the first carpometacarpal joint. XR/XR hand LT min 3V IMPRESSION: 1. Status post ORIF distal radius fracture. 2. Multiple degenerative changes. 3. No acute bony abnormality.
--- NOTE | ~2024-01-25 | XR_ITS ---
EXAMINATION: XR CERVICAL SPINE CLINICAL INFORMATION: Pain COMPARISON: None available. TECHNIQUE: 6 views of the cervical spine were obtained. FINDINGS: The odontoid is obscured on the open-mouth views. There is straightening of the usual cervical lordosis which can be seen with muscle spasm or be due to patient positioning. There is disc space narrowing with marginal osteophyte formation at C3-C4, C4-C5. There is mild anterolisthesis of C4 respect to C5. There is multilevel degenerative change of the facet joints and uncovertebral joints. There is multilevel narrowing of the neural foramina bilaterally. Surgical clips are seen in the left lower neck. XR/XR cervical spine 4V IMPRESSION: 1. Straightening of the usual cervical lordosis which can be seen with muscle spasm or be due to patient positioning. 2. Degenerative changes including multilevel degenerative disc disease.
== END 2024-01-25 16:45 | disposition home or self-care (01) ==
LOC: HO.XRAY 16:44
PROVIDERS: PCP Internal Medicine; Visit Provider Internal Medicine
DX: M79.642 Pain in left hand (principal); M79.641 Pain in right hand; M54.2 Cervicalgia
CPT/HCPCS: 72050; 73130

== ENCOUNTER 2024-02-14 09:35 | Outpatient (REF) | payer MEDICARE, MEDICAID, SELFPAY ==
[2024-02-14 13:41] LABS: Albumin Level 3.6 g/dL (3.5-5.0); Calcium 9.2 mg/dL (8.4-10.2)
[2024-02-14 14:04] LABS: Free T4 (Free Thyroxine) 0.57 ng/dL (0.71-1.85); Thyroid Stimulating Hormone 49.85 uIU/mL (0.32-4.0)
== END 2024-02-14 09:36 | disposition home or self-care (01) ==
LOC: HO.HMGCLDS 09:35
PROVIDERS: PCP Internal Medicine; Visit Provider Internal Medicine Endocrinology, Diabetes & Metabolism
DX: E89.0 Postprocedural hypothyroidism (principal)
CPT/HCPCS: 36415; 82040; 82310; 84439; 84443

== ENCOUNTER 2024-02-27 14:44 | Outpatient (AMB) | payer MEDICARE, MEDICAID, SELFPAY ==
--- NOTE | 2024-02-27 15:17 | MHC.OFFVIS ---
Vital Signs 02/27/24 15:24 Height 5 ft 2 in Weight 128 lb BMI 23.4 Handedness Right Intake Visit Reasons: N/P B/L hand pain Intake Note: Kirsten is a 68 year old right hand dominant who female presents today as a new patient for a evaluation of her B/L hand pain. States she was seen by Dr. Patrick and he stated that he has arthritis in her hands. Pain is worsen with movements. She states having ongoing pain for many years and the pain is on the volar and dorsal aspect of the hands. Allergies adhesive tape Allergy (Intermediate, Verified 11/28/23 14:45) itching and skin redness latex Allergy (Intermediate, Verified 11/28/23 14:45) skin rash and itching Seasonal Allergies Allergy (Verified 11/28/23 14:45) Itching weed pollen Allergy (Verified 11/28/23 14:45) stuffy nose DUST Allergy (Unknown, Uncoded 11/28/23 14:45) ITCHY/WATERY EYES surgical paper tape Allergy (Unknown, Uncoded 11/28/23 14:45) rash Tide Allergy (Unknown, Uncoded 11/28/23 14:45) rash HPI HPI N/P B/L hand pain: Details: Kirsten is a 68 year old right hand dominant woman who presents with complaints of bilateral hand pain. She has a developmental delay/intellectual disability and was seen with a helper today. She complains of pain and arthritis all over in both of her hands. In talking with her, we are not seeing focal areas of pain. She also complains of some numbness in her fingers at night. She has difficulty sleeping and recently started medication for this, and has been sleeping better. She has a Hx of a prior surgery to her left middle finger & a previous left distal radius fracture, which has healed. She says she has arthritis throughout her body, which also causes her hand pain. [facility] Medical History (Updated 02/27/24 @ 15:52 by Pastor Beyer) Post-surgical hypothyroidism History of ESBL E. coli infection Toxic multinodular goiter Toxic multinodular goiter Vitamin D deficiency Hyperthyroidism Multinodular thyroid Colon cancer Lung mass Developmental delay, mild Arthritis Surgical History Hx of total thyroidectomy History of biopsy Hx of colonic polyps Hx of colonoscopy Family History Father No problems noted. Mother Medical history unknown Social History Household Members: Other Household Members Other:: gr home Unable to assess alcohol history related to: Unknown Alcohol intake: never Patient Tobacco Use Status: Never used Tobacco Advance Directives Date on File: 01/05/21 service: No Current occupational status: disabled Current occupation: right handed Review of Systems Const All systems reviewed & are unremarkable except as noted in HPI and below Physical Exam Vital Signs: BMI result Body Mass Index 23.4 Const General: cooperative, healthy appearing and no acute distress Orientation/consciousness: patient oriented x3 HEENT Head: Yes normocephalic and Yes atraumatic Eyes EOM: EOMs intact bilaterally Resp Effort & Inspection: normal respiratory effort and able to speak in complete sentences Cardio Jugular venous distension: no JVD Skin General skin exam: turgor normal Rashes: no rashes Neuro General: patient oriented x3 Extrem Other: Evaluation of Bilateral Upper Extremity: The patient is alert, oriented, and in no acute distress She has an intellectual handicap but was able to actively participate in her appointment today. She is a poor historian Neuro: Median, Ulnar, Radial nerves motor and sensory grossly intact. Vascular: Cap refill brisk ROM: She can make a fist and extend all her digits Left middle finger IP joint flexion contracture of ~25 degrees, which she says is from a prior surgery Scar on the left wrist from an old distal radius ORIF. She could not localize pain to any particular area Skin: No lacerations or abrasions. Somewhat dry to the palms of her hands. General: No Ecchymosis. No Erythema or evidence of infection. Radiographs: 3 views of the left hand from 01/25/24 were reviewed by me today in clinic. They show a volar locking plate with a healed distal radius fracture, an ulnar styloid non-union, small radial styloid non-union, and some basal joint arthritis with joint space narrowing, subchondral sclerosis, and osteophyte formation. Psych Appearance: grossly normal Affect: normal affect Attitude: cooperative Assessment & Plan Assessment & Plan (1) Numbness and tingling in both hands: Code(s): R20.0 - Anesthesia of skin; R20.2 - Paresthesia of skin Category: Medical (2) Developmental delay, mild: Code(s): R62.50 - Unspecified lack of expected normal physiological development in childhood Category: Medical (3) Bilateral hand pain: Code(s): M79.641 - Pain in right hand; M79.642 - Pain in left hand Category: Medical Plan Assessment & Plan: 1. Bilateral hand pain 2. Bilateral hand numbness To the tips of all digits Symptoms intermittent, primarily at night Difficulty sleeping in a patient with intellectual disabilities & a poor historian I educated her about carpal tunnel syndrome I ordered a NCS to assess for peripheral nerve compression. It is possible that her difficulty sleeping could be related to carpal tunnel syndrome. Again somewhat difficult to ascertain the etiology of her problems based on the history she is able to give. She will follow up when completed for review. If she is unable to tolerate a NCS we may consider a carpal tunnel ultrasound vs MRI for assessment. She will follow up when completed for review Scribed for Mirna Delong MD by Pastro Beyer er medical technician, on 02/27/24 at 3:40 PM, EST. Orders: Orders NE nerve conduction velocity Today R20.0 - Anesthesia of skin, R20.2 - Paresthesia of skin Coding Level of Care Code New Pt Level 4 (03340) Diagnoses Numbness and tingling in both hands R20.0; R20.2 Developmental delay, mild R62.50 Bilateral hand pain M79.641; M79.642
[2024-02-27 15:24] VITALS: BMI 23.4
== END 2024-02-27 15:49 | disposition home or self-care (01) ==
PROVIDERS: PCP Internal Medicine; Visit Provider Orthopaedic Surgery
DX: R20.0 Anesthesia of skin (principal); R20.2 Paresthesia of skin; M79.641 Pain in right hand; M79.642 Pain in left hand; R62.50 Unspecified lack of expected normal physiological development in childhood
CPT/HCPCS: 99203

== ENCOUNTER → 2024-02-27 14:44 | Outpatient (BNVA) | payer MEDICARE, MEDICAID, SELFPAY | PROVIDERS: PCP Internal Medicine; Visit Provider Orthopaedic Surgery | DX: R20.0 Anesthesia of skin (principal); R20.2 Paresthesia of skin; M79.642 Pain in left hand; M79.641 Pain in right hand; R62.50 Unspecified lack of expected normal physiological development in childhood | CPT/HCPCS: 99202 ==

== ENCOUNTER 2024-03-06 14:52 | Outpatient (REF) | payer MEDICARE, MEDICAID, SELFPAY ==
--- NOTE | 2024-03-06 14:57 | EMG_ITS ---
Chief complaint: Bilateral hand numbness Reason for referral: Evaluate for Carpal Tunnel Syndrome Referred by: Dr. Delong Procedure done: Bilateral upper extremities NCS/EMG Precautions and/or limitations: None The limb temperature was monitored continuously and remained between 32-36 degrees C during the performance of the NCS. Ulnar motor NCS was performed with moderate elbow flexion between 70-90 degrees, with across-elbow distance of 10 cm. Nerve Conduction Studies Anti Sensory Summary Table ?Stim Site NR Onset (ms) Norm Onset (ms) Peak (ms) Norm Peak (ms) O-P Amp (?V) Norm O-P Amp Site1 Site2 Delta-0 (ms) Dist (cm) Adalid (m/s) Norm Adalid (m/s) Left Median Anti Sensory (2nd Digit) Wrist ? 3.6 4.8 <3.6 24.2 >10 Wrist 2nd Digit 3.6 14.0 39 Right Median Anti Sensory (2nd Digit) Wrist ? 4.0 5.1 <3.6 18.0 >10 Wrist 2nd Digit 4.0 14.0 35 Right Radial Anti Sensory (Thumb) Forearm ? 1.9 2.6 <3.1 15.3 Forearm Thumb 1.9 0.0 Left Ulnar Anti Sensory (5th Digit) Wrist ? 3.8 4.5 <3.7 7.1 >15.0 Wrist 5th Digit 3.8 14.0 37 Right Ulnar Anti Sensory (5th Digit) Wrist ? 3.5 4.7 <3.7 15.5 >15.0 Wrist 5th Digit 3.5 14.0 40 Motor Summary Table ?Stim Site NR Onset (ms) Norm Onset (ms) O-P Amp (mV) Norm O-P Amp iAmp (mV) Amp (1st) (%) Site1 Site2 Delta-0 (ms) Dist (cm) Adalid (m/s) Norm Adalid (m/s) Left Median Motor (Abd Poll Brev) Wrist ? 4.7 <3.9 5.7 >4.5 6.6 100.0 Elbow Wrist 4.4 19.0 43 >45 Elbow ? 9.1 6.7 7.9 117.5 Right Median Motor (Abd Poll Brev) Wrist ? 5.9 <3.9 8.5 >4.5 10.1 100.0 Elbow Wrist 3.9 18.0 46 >45 Elbow ? 9.8 7.7 9.0 90.6 Left Ulnar Motor (Abd Dig Minimi) Wrist ? 4.0 <3.0 7.6 >5 8.8 100.0 B Elbow Wrist 3.4 17.0 50 >45 B Elbow ? 7.4 7.8 9.1 102.6 A Elbow B Elbow 2.3 10.0 43 >45 A Elbow ? 9.7 6.8 7.9 89.5 Right Ulnar Motor (Abd Dig Minimi) Wrist ? 3.4 <3.0 7.1 >5 10.3 100.0 B Elbow Wrist 3.2 16.0 50 >45 B Elbow ? 6.6 7.3 10.8 102.8 A Elbow B Elbow 1.6 10.0 63 >45 A Elbow ? 8.2 7.2 10.8 101.4 EMG ?Side Muscle Nerve Root Ins Act Fibs Psw Amp Dur Poly Recrt Int Pat Comment Right 1stDorInt Ulnar C8-T1 Nml Nml Nml Nml Nml 0 Nml Complete Right FlexCarRad Median C6-7 Nml Nml Nml Nml Nml 0 Nml Complete Right Biceps Musculocut C5-6 Nml Nml Nml Nml Nml 0 Nml Complete Right Triceps Radial C6-7-8 Nml Nml Nml Nml Nml 0 Nml Complete Right Deltoid Axillary C5-6 Nml Nml Nml Nml Nml 0 Nml Complete Left 1stDorInt Ulnar C8-T1 Nml Nml Nml Nml Nml 0 Nml Complete Left FlexCarRad Median C6-7 Nml Nml Nml Nml Nml 0 Nml Complete Left Biceps Musculocut C5-6 Nml Nml Nml Nml Nml 0 Nml Complete Left Triceps Radial C6-7-8 Nml Nml Nml Nml Nml 0 Nml Complete Left Deltoid Axillary C5-6 Nml Nml Nml Nml Nml 0 Nml Complete FINDINGS: Right median motor nerve showed prolonged distal latency, normal amplitude and normal conduction velocity. Left median motor nerve showed prolonged distal latency, normal amplitude and slow conduction velocity. Right ulnar motor nerve showed prolonged distal latency, normal amplitude and normal conduction velocity. Left ulnar motor nerve showed prolonged distal latency, normal amplitude and slow conduction velocity conduction velocity across the elbow. Bilateral median sensory nerves showed prolonged peak latency. Right median sensory nerve showed prolonged peak latency. Left median sensory nerve showed prolonged peak latency and small amplitude. All other nerves tested were within normal. Concentric needle EMG was performed in selected muscles of the bilateral upper extremities. Study did not reveal signs of electric abnormalities as shown in the table below. IMPRESSION: 1. This is an abnormal study. 2. There is electrodiagnostic evidence for bilateral moderate-severe median neuropathy at the wrist, consistent with carpal tunnel syndrome. 3. There is electrodiagnostic evidence for bilateral ulnar neuropathy at the elbow. 4. There is no electrodiagnostic evidence for brachial plexopathy, or cervical radiculopathy. Thank you for your kind referral. Marylin Burgess MD, HITESH Board Certified, [place] [employer] and Rehabilitation (ABPMR) Board Certified, [place] Board of Electrodiagnostic Medicine (ABEM) CODIN 14455 x 2 MTDD
== END 2024-03-06 14:53 | disposition home or self-care (01) ==
LOC: HO.NEURO 14:52
PROVIDERS: PCP Internal Medicine; Visit Provider Orthopaedic Surgery
DX: R20.0 Anesthesia of skin (principal); R20.2 Paresthesia of skin
CPT/HCPCS: 95886; 95911

== ENCOUNTER → 2024-03-06 14:57 | Outpatient (BNV) | payer MEDICARE, MEDICAID, SELFPAY | PROVIDERS: PCP Internal Medicine; Visit Provider Physical Medicine & Rehabilitation | DX: G56.03 Carpal tunnel syndrome, bilateral upper limbs (principal); G56.23 Lesion of ulnar nerve, bilateral upper limbs | CPT/HCPCS: 95886; 95911 ==

== ENCOUNTER 2024-03-12 19:02 | Inpatient (IN) | payer MEDICARE, MEDICAID, SELFPAY ==
--- NOTE | ~2024-03-12 | XR_ITS ---
EXAMINATION: XR CHEST CLINICAL INFORMATION: Diffuse abdominal pain, question free air under the diaphragm COMPARISON: 10/07/2023 TECHNIQUE: Frontal view of the chest was obtained. FINDINGS: Heart, mediastinum and vascularity are prominent. Bibasilar consolidations would be difficult to exclude. No pneumothorax or effusions. Dilated bowel loops seen under the diaphragms with likely gaseous distention of the stomach. Crescentic air in the lower left mediastinum may be in distal esophagus/small hiatal hernia. No definite pneumoperitoneum. Degenerative changes present. XR/XR chest 1V IMPRESSION: Possible mild vascular congestion. Colonic dilatation. No definite pneumoperitoneum, small amount of free air not entirely excluded.
--- NOTE | ~2024-03-12 | NM_ITS ---
EXAMINATION: BILIARY TRACT IMAGING STUDY WITH CCK CLINICAL INFORMATION: Abdominal pain. Gallstones.. COMPARISON: CT of the abdomen and pelvis done on 03/13/2024.. TECHNIQUE: Serial gamma scintillation camera images were obtained over the abdomen for a total observation period of 60 minutes following the intravenous administration of 5.0 mCi Tc-99m mebrofenin. FINDINGS: There is good concentration of activity in the liver by 5 minutes post injection. Biliary activity is visualized by 9 minutes. The gallbladder is well visualized by 45 minutes. Small bowel is well visualized by 70 minutes. At 60 minutes post radiopharmaceutical injection, a 30-minute infusion of 1.4 micrograms Sincalide was then begun and an additional 40 minutes of images were obtained. There is poor emptying of the gallbladder. By the end of the study there is good clearance of activity from the liver and visualization of diffuse small bowel activity. The calculated gallbladder ejection fraction is 19% (Normal range of gallbladder ejection fraction is between 35-80%; GBEF <35% is considered biliary hypokinesia and >80% is considered biliary hyperkinesia; Ref. #1-Clinical Journal of Gastroenterology (2020) 14:1308?1317; Ref.#2-[email or web address]). NM/NM hepatobiliary w pharm IMPRESSION: Visualization of the gallbladder is evidence of a patent cystic duct and strong evidence against the diagnosis of acute cholecystitis. The common bile duct is patent. Gallbladder emptying and ejection fraction are abnormal. Liver function appears normal.
--- NOTE | ~2024-03-12 | CT_ITS ---
EXAMINATION: CT ABDOMEN AND PELVIS WITH CONTRAST CLINICAL INFORMATION: Abdominal pain. COMPARISON: 10/02/2023 TECHNIQUE: Multidetector volumetric images were obtained from the superior aspect of the liver through the pubic symphysis following administration 85 mL of Omnipaque 350 intravenous contrast. Sagittal and coronal reformatted images were obtained on the technologist's workstation. Oral contrast: No This CT examination was performed using dose optimization techniques as appropriate, variously including the following: *Automated exposure control *Adjustment of mA and/or kV according to patient size (this includes techniques or standardized protocols for targeted exams where dose is matched to indication/reason for exam; i.e. extremities or head) *Use of iterative reconstruction technique DLP: 720 mGy-cm FINDINGS: LUNG BASES: The heart is enlarged. There is a minimal pericardial effusion. Atelectatic change at both lung bases. LIVER, GALLBLADDER, AND BILIARY TREE: The liver is normal in size, shape, and attenuation. No focal hepatic lesion or biliary ductal dilatation is present. Multiple faint gallstones are noted. There is nonspecific gallbladder wall thickening. PANCREAS: Unremarkable. SPLEEN: Unremarkable. ADRENAL GLANDS: Unremarkable. KIDNEYS AND URETERS: The kidneys are normal in size, shape, and attenuation. There is bilateral moderate hydronephrosis and hydroureter extending into the pelvis without ureteral calculi. BLADDER: The bladder is distended. GASTROINTESTINAL TRACT: There is thickening of the visualized distal esophagus. There are prominent fluid-filled small bowel loops with some loops measuring up to 3 cm without transition. There is retained stool throughout the colon mixed with gas. The appendix is not identified. ABDOMINAL WALL: There is soft tissue anasarca. LYMPH NODES: Normal. VASCULAR: Unremarkable. PELVIC VISCERA: Unremarkable. OSSEOUS STRUCTURES: Diffuse thoracolumbar disc degenerative change with grade 1 anterolisthesis of L3 over L4. CT/CT abdomen pelvis w IV con IMPRESSION: 1. Moderate bilateral hydronephrosis and hydroureter extending into the pelvis without ureteral calculi. The bladder is distended. 2. Prominent fluid-filled small bowel loops without transition. This could be secondary to ileus. Developing obstruction considered less likely. Clinical follow-up suggested. 3. Cholelithiasis with nonspecific gallbladder wall thickening. 4. Soft tissue anasarca. 5. Cardiomegaly with minimal pericardial effusion. 6. Retained stool throughout. Fleischner guidelines were followed.
--- NOTE | ~2024-03-12 | XR_ITS ---
EXAMINATION: XR CHEST CLINICAL INFORMATION: NG tube placement. COMPARISON: Previous of the same day. TECHNIQUE: Frontal view of the chest was obtained. FINDINGS: The lung volumes are low. The cardiomediastinal silhouette is stable. There is pulmonary vascular congestion. A gastric tube extends below the diaphragm into the left abdomen. The bony structures and soft tissues are unremarkable. There is atelectatic change at the lung bases. XR/XR chest 1V IMPRESSION: 1. Gastric tube extends below the diaphragm into the left abdomen in good position. 2. Low lung volumes and pulmonary vascular congestion.
[2024-03-12 19:55] VITALS: BP 146/65; PULSE 59; RESP 16; TEMP 37; O2SAT 98; BMI 24.9
--- NOTE | 2024-03-12 19:58 | ED.GENADULT ---
HPI - General Adult General Chief complaint: Abdominal Pain Stated complaint: abd pain, fever Time Seen by Provider: 03/13/24 01:58 Source: patient and other (nursing home staff) Mode of arrival: ambulatory Limitations: no limitations History of Present Illness ED Provider: Dr. Tara Hitchcock HPI narrative: Patient comes to the emergency room accompanied by nursing home staff. Patient reports abdominal pain. Patient states that it started earlier today. According to the nursing home staff, earlier this morning patient had a flat abdomen and throughout the day, it has gradually been getting ?bigger and inflated . Patient denies vomiting or diarrhea. Staff reports that the patient has not been eating well today. Patient denies hematuria or dysuria, no URI symptoms. Related Data Home Medications ?Medication ?Instructions ?Recorded ?Confirmed acetaminophen 500 mg tablet 500 mg PO Q4H PRN pain/fever 01/05/21 10/07/23 aripiprazole 15 mg tablet 15 mg PO DAILY 01/05/21 10/07/23 aspirin 81 mg tablet,delayed 81 mg PO DAILY 01/05/21 10/07/23 release carbamazepine 200 mg tablet 200 mg PO DAILY 01/05/21 10/07/23 carbamazepine 200 mg tablet 400 mg PO BEDTIME 01/05/21 10/07/23 clotrimazole 1 % topical cream 1 appl topical BID 01/05/21 10/07/23 loratadine 10 mg tablet 10 mg PO DAILY 01/05/21 10/07/23 multivitamin 1 tab PO DAILY 01/05/21 10/07/23 nystatin 100,000 unit/gram topical 1 appl topical BID PRN Rash 01/05/21 10/07/23 powder mirabegron 50 mg tablet,extended 50 mg PO DAILY 10/10/22 10/07/23 release 24 hr (Myrbetriq) saturninosade estevez-zinc oxide topical 1 ea topical BID 01/24/23 10/07/23 ointment ibuprofen 400 mg tablet 400 mg PO TID PRN Pain 01/24/23 10/02/23 methyl salicylate 30 %-menthol 10 1 appl topical BID 01/24/23 10/02/23 % topical cream (Icy Hot) triamcinolone acetonide 0.1 % 1 appl topical BID PRN Skin 01/24/23 10/07/23 topical ointment Irritation benztropine 1 mg tablet 1 mg PO DAILY 05/10/23 10/07/23 dextromethorphan-guaifenesin 10 10 ml PO Q6H PRN Cough 05/10/23 10/07/23 mg-200 mg/5 mL oral liquid melatonin 10 mg tablet 10 mg PO BEDTIME 05/10/23 10/07/23 diphenhydramine HCl 25 mg tablet 25 mg PO TID PRN Rash 10/02/23 10/02/23 (Banophen) estradiol 2 mg (7.5 mcg/24 hour) 1 vag ring vaginal Q90D 10/02/23 10/02/23 vaginal ring (Estring) ferrous sulfate 325 mg (65 mg 325 mg PO MOWEFR 10/02/23 10/07/23 iron) tablet Previous Rx's ?Medication ?Instructions ?Recorded methimazole 5 mg tablet 5 mg PO DAILY #30 tabs 06/21/23 docusate sodium 100 mg capsule 100 mg PO BID 30 days #60 caps 10/05/23 imipramine HCl 50 mg tablet 25 mg (1/2 x 50 mg) PO BEDTIME 30 10/05/23 days #15 tabs polyethylene glycol 3350 17 17 g PO DAILY 30 days #510 grams 10/05/23 gram/dose oral powder sennosides 8.6 mg tablet (Senna 8.6 mg PO BEDTIME PRN constipation 10/05/23 Lax) #30 tabs sennosides 8.6 mg tablet (senna) 8.6 mg PO BEDTIME PRN constipation 10/05/23 #30 tabs olanzapine 2.5 mg tablet 2.5 mg PO BID PRN agitation #10 10/09/23 tabs levothyroxine 100 mcg tablet 100 mcg PO DAILY #30 tabs 02/14/24 Allergies Allergy/AdvReac Type Severity Reaction Status Date / Time adhesive tape Allergy Intermediate itching Verified 03/12/24 19:59 and skin redness latex Allergy Intermediate skin rash Verified 03/12/24 19:59 and itching Seasonal Allergies Allergy Itching Verified 03/12/24 19:59 weed pollen Allergy stuffy nose Verified 03/12/24 19:59 DUST Allergy Unknown ITCHY/WATERY Uncoded 11/28/23 14:45 EYES surgical paper tape Allergy Unknown rash Uncoded 11/28/23 14:45 Tide Allergy Unknown rash Uncoded 11/28/23 14:45 Review of Systems Review of Systems: Constitutional : No Weight loss, No Fever, No Chills, No Night Sweats, No Fatigue, No Malaise ENT/Mouth : No Hearing loss, No Ear Pain, No Nasal Congestion, No Sinus Pain, No Hoarseness, No sore throat, No Rhinorrhea, No Swallowing Difficulty Eyes: No Eye Pain, No Swelling, No Redness, No Foreign Body, No Discharge, No Vision Changes Cardiovascular : No Chest Pain, No SOB, No Dyspnea on Exertion, No Orthopnea, No Edema, No Palpitations Respiratory : No Cough, No Sputum, No Wheezing, No Smoke Exposure, No Dyspnea Gastrointestinal : Complaining of nausea, no vomiting or diarrhea, complaining of abdominal pain and distension Genitourinary : no irregular bleeding, No Dysuria, No Urinary Frequency, No Hematuria, No Urinary Incontinence, No Urgency, No Flank Pain, No Urinary Flow Changes, No Hesitancy Musculoskeletal : No joint pain, No Myalgias, No Joint Swelling Skin : No Skin Lesions, No rash Neuro : No Weakness, No Numbness, No Paresthesias, No Loss of Consciousness, No Dizziness, No Headache Psych : No Anxiety/Panic, No Depression, No SI/HI/AH/VH, No Social Issues, Heme/Lymph: No Bruising, No Bleeding,No Lymphadenopathy Endocrine : No Polyuria, No Polydipsia, No Temperature Intolerance PMFSH Past Medical History Medical History Post-surgical hypothyroidism History of ESBL E. coli infection Toxic multinodular goiter Toxic multinodular goiter Vitamin D deficiency Hyperthyroidism Multinodular thyroid Colon cancer Lung mass Developmental delay, mild Arthritis Surgical History Hx of total thyroidectomy History of biopsy Hx of colonic polyps Hx of colonoscopy Family History Family History Father No problems noted. 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 Members: Other Household Members Other:: gr home Unable to assess alcohol history related to: Unknown Alcohol intake: never Patient Tobacco Use Status: Never used Tobacco Smoked in Last 30 Days: No Use of substances other than those prescribed or required for medical reasons: No Advance Directives: Yes Advance Directives on File: Yes Advance Directives Date on File: 01/05/21 Do you have a plan to hurt others: No Plan service: No Current occupational status: disabled Current occupation: right handed Physical Exam ED Vital Signs: Vital Signs - 24 hr 03/12/24 19:55 03/12/24 23:18 03/13/24 01:22 Temperature 98.6 F 98.2 F 98.1 F Pulse Rate 59 57 57 Respiratory Rate 16 18 14 Blood Pressure 146/65 H 157/75 H 151/77 H Pulse Oximetry 98 97 94 Oxygen Delivery Method Room Air Room Air Room Air 03/13/24 03:39 Temperature 98.3 F Pulse Rate 57 Respiratory Rate 18 Blood Pressure 168/85 H Pulse Oximetry 90 L Oxygen Delivery Method Room Air BMI result Body Mass Index 24.9 Const Other: Appearance: Alert. Oriented X3. No acute distress. Eyes: Pupils equal, round and reactive to light. ENT: Pharynx normal. Neck: Normal inspection. Neck supple. No lymph nodes noted. No crepitus CVS: Normal heart rate and rhythm. Pulses normal. Normal S1 and S2 Respiratory: No respiratory distress. Breath sounds normal. No Wheezing. No rales Abdomen: Soft, significantly distended, tympanic percussion, patient seems significantly uncomfortable Skin: Skin warm and dry. Normal skin color. Normal skin turgor. Extremities: No lower extremity edema. No Lacerations. No Rash Neuro: Oriented X 3. No motor deficit. No sensory deficit. Moving all extremities. No slurred speech. CN 2 through 12 grossly intact Psych: calm, cooperative, normal affect Course Course Course Narrative: This is a Rapid Medical Examination (RME) performed by April Webber PA-C in triage. Full HPI, ROS, assessment and treatment plan per primary provider in the Main ED. 68-year-old female, with a past medical history with a past medical history of toxic multinodular goiter, vitamin-D deficiency, hyperthyroidism on methimazole, history ESBL E coli UTI, history colon cancer s/p colectomy with anastomosis, lung mass, developmental delay here w/ pharmacy care coordinator for eval of fevers (TMAX 100.4F), epistaxis, and abdominal distension x1 day. pharmacy care coordinator reports fevers yesterday. while sleeping today, patients nose began to bleed a dark brown color which has since resolved. no known history of liver disease. on exam, abdomen severely distended, firm with palpable mass noted between epigastric and umbilicus. no epistaxis noted. no jaundic. sclera anicteric. Plan: labs, UA, coags ordered. +/- imaging per primary provider once back in bed Medications Administered Discontinued Medications Generic Name Dose Route Start Last Admin Trade Name Edisonq PRN Reason Stop Dose Admin Diatrizoate Meglum/Diatrizoate Sod 30 ml 03/13/24 03:02 03/13/24 03:03 Diatrizoate Meglumine, Sodium 30 Ml Solution PO 03/13/24 03:03 30 ml ONCE ONE Administration Sodium Chloride 1,000 mls @ 999 mls/hr 03/13/24 02:11 03/13/24 05:27 Ns IVCONT 03/13/24 03:11 Infused .Q1H1M ONE Infusion Morphine Sulfate 2 mg 03/13/24 02:11 03/13/24 03:14 Morphine Sulfate 2 Mg/Ml Cartridge IVPUSH 03/13/24 02:12 2 mg ONCE ONE Administration Protocol Ondansetron HCl 4 mg 03/13/24 02:11 03/13/24 03:14 Ondansetron Hcl 4 Mg/2 Ml Vial IVPUSH 03/13/24 02:12 4 mg ONCE ONE Administration Medical Decision Making Medical Decision Making MDM Narrative: -interpretation of labs, hematology at baseline, normal white blood cell count, chemistry within normal limits, LFTs slightly elevated, total bilirubin within normal limits, AST 91, ALT 150, alk phos 204 -my interpretation of chest x-ray, no free air under the diaphragm, however, seems that there is a large amount of air in the intestine, CT scan pending -patient was given IV fluids, morphine and Zofran for pain control. -CT scan was attempted with both IV contrast and p.o. contrast. However, when patient ingested the p.o. contrast, she vomited immediately. -CT scan was done with IV contrast but no p.o. contrast as patient could not tolerated. -my interpretation of CT scan, patient has an obvious obstruction -patient's bladder is significantly distended. Patient has not been able to provide any unit. At 05:15, patient was straight cath and urine was obtained. -patient is known to have chronic ESBL. Patient will be empirically treated with IV fluids and meropenem. Patient's white blood cell count within normal limits, normal blood pressure, Sepsis is not suspected. Lactic acid pending. If elevated, secondary to bowel obstruction rather than from infectious etiology. -radiology reports today are significantly delayed. -patient has a Davidson catheter, over a 1000 mL of urine were obtained. Also, we are working on an NG-tube for decompression -I discussed the patient with Dr. Milner, patient being admitted Differential Diagnosis Differential Diagnoses: The differential diagnosis associated with the presentation includes (SBO, small-bowel ischemia) Admission/Observation Consideration of admission/observation: Escalation of care including admission/observation considered Consult Healthcare Provider Management of the patient was discussed with: Senior Applications Developer Lab Data MDM Lab Attestation statement: I reviewed the patient's lab results. 03/12/24 20:17 03/12/24 20:17 Labs: Lab Results 03/12/24 03/13/24 Range/Units 20:17 04:09 WBC 6.8 (4.8-10.8) X10*3/uL RBC 3.67 L (4.20-5.50) X10*6/uL Hgb 11.3 L D (12.0-16.0) g/dl Hct 34.1 L (37.0-47.0) % MCV 92.9 (80.0-98.0) fL MCH 30.8 (27.0-33.0) pg MCHC 33.1 (31.0-35.0) g/dl RDW 14.6 (11.0-16.0) % Plt Count 200 (160-400) X10*3/uL MPV 9.5 (9.4-12.3) fL Immature Gran % (Auto) 0.3 (0.0-0.4) % Neut % (Auto) 63.4 (45-73) % Lymph % (Auto) 25.6 (20-40) % Kane % (Auto) 9.7 (2-11) % Eos % (Auto) 0.6 (0-4) % Baso % (Auto) 0.4 (0-2) % Lymph # (Auto) 1.7 (1.2-4.9) X10*3/uL Kane # (Auto) 0.7 (0.1-1.2) X10*3/uL Eos # (Auto) 0.0 (0.0-0.4) X10*3/uL Baso # (Auto) 0.0 (0.0-0.2) X10*3/uL Abs Immat Gran (auto) 0.02 (0.00-0.03) X10*3/uL Absolute Neuts (auto) 4.3 (2.0-8.3) x10*3/uL Absolute Nucleated RBC 0.000 (0.0-0.012) X10*3/uL Nucleated RBC % (auto) 0.0 (0.0-0.2) /100WBC PT 11.0 L (11.1-13.3) SEC INR 0.9 (0.9-1.1) Sodium 138 (135-145) mmol/L Potassium 3.8 (3.3-5.1) mmol/L Chloride 105 (96-108) mmol/L Carbon Dioxide 25 (22-29) mmol/L Anion Gap 12 (12-20) BUN 25 H (9-16) mg/dL Creatinine 0.66 (0.5-1.4) mg/dL Estim Creat Clear Calc 75.1 Estimated GFR > 60 Random Glucose 91 (60-115) mg/dL Calcium 8.3 L D (8.4-10.2) mg/dL Magnesium 1.9 (1.6-2.6) mg/dL Total Bilirubin 0.2 (0.0-1.0) mg/dL AST 91 H (5-31) U/L ALT 150 H (0-31) U/L Alkaline Phosphatase 204 H (39-117) U/L Total Protein 6.9 (6.5-8.0) g/dL Albumin 3.7 (3.5-5.0) g/dL Lipase 50 (8-78) U/L Urine Color Yellow Urine Appearance Turbid Urine pH 6.5 (5.0-9.0) Ur Specific [place] 1.010 (1.005-1.025) Urine Protein Trace (Neg-Trace) mg/dL Urine Glucose (UA) Negative (Negative) mg/dL Urine Ketones Negative (Negative) mg/dL Urine Blood Large (3+) H (Negative) Urine Nitrite Negative (Negative) Ur Leukocyte Esterase Moderate (2+) H (Negative) Urine RBC >20 H (0-2) /HPF Urine WBC 11-20 H (0-5) /HPF Ur Squamous Epith Cells >20 (0-2) /HPF Urine Bacteria 4+ (None Seen) Hyaline Casts 0-2 (0-2) /LPF Independent Interpretation I performed an independent interpretation of an: CT Scan Independent Historian Clinical information obtained from an independent historian. History obtained from or confirmed by: Other (nursing home staff) Critical Care Time Critical Care Time Critical Care Time: Yes Total Critical Care Time: 75 Attestation: I have personally provided critical care time. Time includes review of lab data, radiology results, discussion with consultants, and monitoring for potential decompensation. Intervention performed as documented. Discharge Plan Discharge Clinical Impression: Small bowel obstruction, Chronic UTI Patient Disposition: Admitted As Inpatient Prescriptions: No Action methimazole 5 mg tablet 5 mg PO DAILY Qty: 30 5RF levothyroxine 100 mcg tablet 100 mcg PO DAILY Qty: 30 5RF carbamazepine 200 mg tablet 200 mg PO DAILY carbamazepine 200 mg tablet 400 mg PO BEDTIME aripiprazole 15 mg tablet 15 mg PO DAILY multivitamin Tablet 1 tab PO DAILY aspirin 81 mg Tablet,Delayed Release (Dr/Ec) 81 mg PO DAILY acetaminophen 500 mg Tablet 500 mg PO Q4H PRN (Reason: pain/fever) nystatin 100,000 unit/gram Powder 1 appl TOPICAL BID PRN (Reason: Rash) Rx Instructions: rash in skin folds clotrimazole 1 % Cream 1 appl TOPICAL BID Rx Instructions: apply under breast loratadine 10 mg Tablet 10 mg PO DAILY triamcinolone acetonide 0.1 % ointment 1 appl topical BID PRN (Reason: Skin Irritation) ibuprofen 400 mg Tablet 400 mg PO TID PRN (Reason: Pain) balm herb-zinc oxide Ointment 1 ea TOPICAL BID Rx Instructions: to rash, groin, buttocks Icy Hot 30-10 % Cream 1 appl TOPICAL BID Rx Instructions: to back and shoulders ferrous sulfate 325 mg (65 mg iron) Tablet 325 mg PO MOWEFR diphenhydramine HCl [Banophen] 25 mg Tablet 25 mg PO TID PRN (Reason: Rash) Hold Instructions: minimize use if able Estring 2 mg (7.5 mcg /24 hour) Ring 1 vag ring VAGINAL Q90D imipramine HCl 50 mg Tablet 25 mg PO BEDTIME 30 Days Qty: 15 0RF docusate sodium 100 mg Capsule 100 mg PO BID 30 Days Qty: 60 0RF sennosides [Senna Lax] 8.6 mg Tablet 8.6 mg PO BEDTIME PRN (Reason: constipation) Qty: 30 0RF polyethylene glycol 3350 17 gram/dose Powder 17 g PO DAILY 30 Days Qty: 510 0RF sennosides [senna] 8.6 mg tablet 8.6 mg PO BEDTIME PRN (Reason: constipation) Qty: 30 0RF Rx Instructions: no BM in two days olanzapine 2.5 mg tablet 2.5 mg PO BID PRN (Reason: agitation) Qty: 10 0RF Rx Instructions: Take one tablet twice per day as needed for agitation. dextromethorphan-guaifenesin 10-200 mg/5 mL Liquid 10 ml PO Q6H PRN (Reason: Cough) benztropine 1 mg tablet 1 mg PO DAILY Hold Instructions: hold for now. follow up with outpatient prescriber melatonin 10 mg Tablet 10 mg PO BEDTIME Myrbetriq 50 mg tablet extended release 24 hr 50 mg PO DAILY Print Language: St Helen[place]
[2024-03-12 20:20] LABS: MANUAL DIFF FLAG NO
[2024-03-12 20:22] LABS: Basophils Percent Auto 0.4 % (0-2); Eosinophils Percent Auto 0.6 % (0-4); Hematocrit 34.1 % (37.0-47.0); Hemoglobin 11.3 g/dl (12.0-16.0); Imm Gran Abs Auto 0.02 X10*3/uL (0.00-0.03); Imm Gran Pct Auto 0.3 % (0.0-0.4); Lymphocytes Absolute Auto 1.7 X10*3/uL (1.2-4.9); Lymphocytes Percent Auto 25.6 % (20-40); Mean Corpuscular HGB Conc 33.1 g/dl (31.0-35.0); Mean Corpuscular Hemoglobin 30.8 pg (27.0-33.0); Mean Corpuscular Volume 92.9 fL (80.0-98.0); Mean Platelet Volume 9.5 fL (9.4-12.3); Monocytes Absolute Auto 0.7 X10*3/uL (0.1-1.2); Monocytes Percent Auto 9.7 % (2-11); Neutrophils Absolute Auto 4.3 x10*3/uL (2.0-8.3); Neutrophils Percent Auto 63.4 % (45-73); Platelet Count 200 X10*3/uL (160-400); Red Blood Count 3.67 X10*6/uL (4.20-5.50); Red Cell Distribution Width 14.6 % (11.0-16.0); White Blood Count 6.8 X10*3/uL (4.8-10.8)
[2024-03-12 20:27] LABS: INTERNATIONAL NORM RATIO 0.9 (0.9-1.1)
[2024-03-12 20:39] LABS: Alanine Aminotransferase 150 U/L (0-31); Albumin Level 3.7 g/dL (3.5-5.0); Alkaline Phosphatase 204 U/L (39-117); Anion Gap 12 (12-20); Aspartate Amino Transferase 91 U/L (5-31); Bilirubin Total 0.2 mg/dL (0.0-1.0); Blood Urea Nitrogen 25 mg/dL (9-16); Calcium 8.3 mg/dL (8.4-10.2); Carbon Dioxide 25 mmol/L (22-29); Chloride 105 mmol/L (96-108); Creatinine Clr Calc Pharmacy 75.1; Estimated Glomerular Filt Rate > 60; Glucose Random 91 mg/dL (60-115); Lipase 50 U/L (8-78); Magnesium 1.9 mg/dL (1.6-2.6); Potassium 3.8 mmol/L (3.3-5.1); Sodium 138 mmol/L (135-145); Total Protein 6.9 g/dL (6.5-8.0)
[2024-03-12 23:18] VITALS: BP 157/75; PULSE 57; RESP 18; TEMP 36.8; O2SAT 97
--- NOTE | 2024-03-12 23:39 | PC.NURSE ---
staff at bedside said her stomach has been this distended like this before in September/October, was constipated had to be disimpacted. does not think this is the issue currently. has frequent BMs, 2x today while in ED
[2024-03-13] VITALS (9 sets, daily range): BP systolic 105–183; BP diastolic 55–85; PULSE 50–72; RESP 13–18; TEMP 36.6–37.2; O2SAT 88–98
[2024-03-13] MEDS: Diatrizoate Meglumine, Sodium 30 ML SOLUTION PO (03:03)
[2024-03-13] MEDS: ondansetron HCL 4 MG/2 ML VIAL IVPUSH (03:14)
[2024-03-13] MEDS: Morphine Sulfate 2 MG/ML CARTRIDGE IVPUSH (03:14)
[2024-03-13] MEDS: 0.9 % Sodium Chloride 1,000 ML 999 ML IVCONT ×2 (03:14→06:02)
--- NOTE | 2024-03-13 03:36 | PC.NURSE ---
pt vomited after 2 cups of oral contrast, provider aware
[2024-03-13 04:14] LABS: Appearance Urine Turbid; Color Urine Yellow; Glucose Urine UA Negative (Negative); Leukocyte Esterase Urine Moderate (2+) (Negative); Nitrite Urine Negative (Negative); PH 6.5 (5.0-9.0); UMIC TRIGGER UACC YES; Urine Blood Large (3+) (Negative); Urine Ketones Negative (Negative); Urine Protein Trace mg/dL (Neg-Trace)
[2024-03-13 04:22] LABS: Bacteria Urine 4+ (None Seen); Hyaline Casts Urine 0-2 /LPF (0-2); Squamous Epithelial Cell Urine >20 /HPF (0-2); UACC Culture Trigger YES
[2024-03-13 04:23] LABS: RBC Urine >20 /HPF (0-2)
[2024-03-13] MEDS: Prochlorperazine Edisylate 10 MG/2 ML VIAL IVPUSH (06:02)
[2024-03-13] MEDS: Morphine Sulfate 4 MG/ML CARTRIDGE IVPUSH (06:02)
--- NOTE | 2024-03-13 06:11 | PC.NURSE ---
christopher placed 1000 output, NG tube placed, position confirmed. pt tolerated well.
--- NOTE | 2024-03-13 06:24 | PC.NURSE ---
pt now resting with eyes closed, breathing even and unlabored. no apparent distress noted at this time. staff from [facility] at bedside.
--- NOTE | 2024-03-13 08:56 | PC.NURSE ---
abdomen distended and firm. NG tube attached to intermittent suction. 200ml dark brown liquid in canister.
--- NOTE | 2024-03-13 08:57 | PHA.MEDREC ---
Pharmacy Consult ? Medication Reconciliation Pharmacy has completed the medication reconciliation. Confirmed medications from list provided from [facility] in [place].
--- NOTE | 2024-03-13 09:16 | P.HPGS_ITS ---
History of Present Illness History of Present Illness Date of Service: 03/13/24 Chief complaint: abd pain, fever Narrative: Kirsten Ronquillo is a 68 year old female presenting to the emergency department with reports of abdominal pain. She has a resident of a intermediate and presents with a member of the staff from the intermediate. She is reported to have abdominal distention along with the abdominal pain but denied nausea or vomiting. There has also been no history of diarrhea or constipation. She has a prior history of colon cancer surgery remotely, and information regarding the surgery is not available to time of this dictation. She apparently has had multiple abdominal surgeries but it is unclear whether she has had prior episodes of bowel obstructions. In the emergency department a CT abdomen and pelvis revealed multiple distended fluid-filled loops of small and large bowel without transition point suggestive of ileus. Retained stool was noted throughout the colon. Bilateral hydroureter and bladder distention is also identified. A nasogastric tube and Davidson catheter was inserted in the emergency department. Review of Systems Review of Systems: Yes Unobtainable due to mental condition PMFSH Past Medical History Medical History Post-surgical hypothyroidism History of ESBL E. coli infection Toxic multinodular goiter Toxic multinodular goiter Vitamin D deficiency Hyperthyroidism Multinodular thyroid Colon cancer Lung mass Developmental delay, mild Arthritis Family History Family History Father No problems noted. Mother Medical history unknown Surgical History Surgical History Hx of total thyroidectomy History of biopsy Hx of colonic polyps Hx of colonoscopy Social History Social History Household Members: Other Household Members Other:: gr home Unable to assess alcohol history related to: Unknown Alcohol intake: never Patient Tobacco Use Status: Never used Tobacco Smoked in Last 30 Days: No Use of substances other than those prescribed or required for medical reasons: No Advance Directives: Yes Advance Directives on File: Yes Advance Directives Date on File: 01/05/21 Do you have a plan to hurt others: No Plan service: No Current occupational status: disabled Current occupation: right handed Meds Allergies Allergy/AdvReac Type Severity Reaction Status Date / Time adhesive tape Allergy Intermediate itching Verified 03/12/24 19:59 and skin redness latex Allergy Intermediate skin rash Verified 03/12/24 19:59 and itching Seasonal Allergies Allergy Itching Verified 03/12/24 19:59 weed pollen Allergy stuffy nose Verified 03/12/24 19:59 DUST Allergy Unknown ITCHY/WATERY Uncoded 11/28/23 14:45 EYES surgical paper tape Allergy Unknown rash Uncoded 11/28/23 14:45 Tide Allergy Unknown rash Uncoded 11/28/23 14:45 Active Medications: Current Medications Hydromorphone HCl (Hydromorphone Hcl 0.5 Mg/0.5 Ml Syringe) 0.5 mg IVPUSH Q3H PRN; Protocol PRN Reason: Pain, Severe (Pain Scale 7-10) Acetaminophen (Ofirmev) 1,000 mg in 100 mls @ 400 mls/hr IV Q6H DANA Stop: 03/14/24 03:29 Dextrose/Lactated Ringer's (D5lr) 1,000 mls @ 125 mls/hr IVCONT .Q8H [facility] Ondansetron HCl (Ondansetron Hcl 4 Mg/2 Ml Vial) 4 mg IVPUSH QID PRN PRN Reason: Nausea Sodium Chloride (0.9 % Sodium Chloride Flush 3 Ml Syringe) 3 ml IVFLUSH QSHIFT [facility] Home Medications ?Medication ?Instructions ?Recorded ?Confirmed ?Last Taken ?Type acetaminophen 500 mg tablet 500 mg PO Q4H PRN pain/fever 01/05/21 03/13/24 Unknown History aspirin 81 mg tablet,delayed 81 mg PO DAILY 01/05/21 03/13/24 01/24/23 08:00 History release carbamazepine 200 mg tablet 200 mg PO DAILY 01/05/21 03/13/24 01/24/23 08:00 History carbamazepine 200 mg tablet 400 mg PO BEDTIME 01/05/21 03/13/24 01/23/23 20:00 History loratadine 10 mg tablet 10 mg PO DAILY 01/05/21 03/13/24 01/24/23 08:00 History multivitamin 1 tab PO DAILY 01/05/21 03/13/24 01/23/23 08:00 History nystatin 100,000 unit/gram topical 1 appl topical BID PRN Rash 01/05/21 03/13/24 Unknown History powder ibuprofen 400 mg tablet 400 mg PO TID PRN Pain 01/24/23 03/13/24 Unknown History methyl salicylate 30 %-menthol 10 1 appl topical BID 01/24/23 03/13/24 01/24/23 08:00 History % topical cream (Icy Hot) triamcinolone acetonide 0.1 % 1 appl topical BID PRN Skin 01/24/23 03/13/24 Unknown History topical ointment Irritation dextromethorphan-guaifenesin 10 10 ml PO Q4H PRN Cough 05/10/23 03/13/24 Unknown History mg-200 mg/5 mL oral liquid melatonin 10 mg tablet 10 mg PO BEDTIME 05/10/23 03/13/24 Unknown History ferrous sulfate 325 mg (65 mg 325 mg PO MOWEFR 10/02/23 03/13/24 Unknown History iron) tablet aripiprazole 5 mg tablet (Abilify) 5 mg PO DAILY 03/13/24 03/13/24 Unknown History ascorbic acid (vitamin C) 500 mg 500 mg PO BID 03/13/24 03/13/24 Unknown History tablet (Vitamin C) betamethasone dipropionate 0.05 % 1 appl topical BID PRN Dry areas 03/13/24 03/13/24 Unknown History topical ointment on hand levothyroxine 88 mcg tablet 88 mcg PO DAILY 03/13/24 03/13/24 Unknown History methenamine hippurate 1 gram tablet 1 g PO BID 03/13/24 03/13/24 Unknown History olanzapine 15 mg tablet 15 mg PO BEDTIME 03/13/24 03/13/24 Unknown History trazodone 50 mg tablet 50 mg PO BEDTIME 03/13/24 03/13/24 Unknown History vibegron 75 mg tablet (Gemtesa) 75 mg PO DAILY 03/13/24 03/13/24 Unknown History zinc oxide-vitamin B5-vit E 11.3% 1 appl topical BID PRN Rash 03/13/24 03/13/24 Unknown History topical cream (Balmex Adult Care) Physical Exam Vital Signs: Vital Signs: Last Vital Signs Temp 98.1 F 03/13/24 08:21 Pulse 50 03/13/24 08:21 Resp 16 03/13/24 08:21 BP 118/62 03/13/24 08:21 Pulse Ox 97 06/12/24 08:21 O2 Del Method Room Air 03/13/24 08:21 BMI result Body Mass Index 24.9 Const: General: alert Nutritional Appearance: well nourished Limitations: behavioral limitations Resp: Effort & Inspection: normal respiratory effort GI: Inspection: Yes distended and Yes incision Palpation (GI): Soft to palpation, Tenderness to palpation present (GI), no guarding and not rigid Percussion: Yes dullness to percussion Auscultation: Absent bowel sounds Rectal Exam - Female: deferred Skin: General skin exam: no rashes or lesions noted Results Results Labs: Short CBC 03/12/24 Range/Units 20:17 WBC 6.8 (4.8-10.8) X10*3/uL Hgb 11.3 L D (12.0-16.0) g/dl Hct 34.1 L (37.0-47.0) % Plt Count 200 (160-400) X10*3/uL BMP 03/12/24 20:17 Sodium 138 Potassium 3.8 Chloride 105 Carbon Dioxide 25 BUN 25 H Creatinine 0.66 Calcium 8.3 L D Liver Function 03/12/24 Range/Units 20:17 Total Bilirubin 0.2 (0.0-1.0) mg/dL AST 91 H (5-31) U/L ALT 150 H (0-31) U/L Alkaline Phosphatase 204 H (39-117) U/L Albumin 3.7 (3.5-5.0) g/dL Urine 03/13/24 Range/Units 04:09 Urine Color Yellow Urine Appearance Turbid Urine pH 6.5 (5.0-9.0) Ur Specific [place] 1.010 (1.005-1.025) Urine Protein Trace (Neg-Trace) mg/dL Urine Glucose (UA) Negative (Negative) mg/dL Assessment and Plan (1) Small bowel obstruction: Status: Acute Plan 68-year-old female with history of developmental delay, resident intermediate presenting with recent onset of abdominal distention and abdominal pain. Workup revealed distended fluid-filled loops of small and large bowel without apparent transition point. Findings are suggestive of an ileus. Nasogastric tube is in place. Patient has been made NPO and started IV fluids. We will admit to surgical service and monitor NG tube output. Hospitalist consultation for management of multiple medications. Quality Stroke Does the patient have a stroke diagnosis?: No VTE Prior VTE?: No VTE Risk Level:: Surgical - moderate VTE Device Contraindication: N/A - Device Ordered VTE Drug Contraindication: Treatment Not Indicated Procedures Date of Service Date of Service: 03/13/24
[2024-03-13] MEDS: Acetaminophen 1,000 MG/100 ML PIGGYBACK 400 MG IV ×3 (09:36→19:40)
[2024-03-13] MEDS: Dextrose 5 % and Lactated Ring 1,000 ML 125 ML IVCONT ×2 (10:08→18:39)
--- NOTE | 2024-03-13 12:38 | P.CONHOSP_ITS ---
History of Present Illness Data of Consult Service Date: 03/13/24 <PAYTON Atkins - Last Filed: 03/14/24 01:12> Primary Care Provider: Sher Patrick MD <PAYTON Atkins - Last Filed: 03/14/24 01:12> HPI Reason for consult: Medical management <PAYTON Atkins - Last Filed: 03/14/24 01:12> Patient is a 68-year-old female with a PMH significant for toxic multinodular goiter, hypothyroidism, hx of colon cancer s/p colectomy with anastomosis, hx of ESBL E coli UTI, lung mass, and developmental delay who initially presented to the ED yesterday on 03/12 from [facility] for evaluation of abdominal pain and distention. CT of abdomen and pelvis found multiple distended fluid-filled loops of small and large bowel without transition point suggestive of ileus. Also found bilateral hydroureter and bladder distention. Nasogastric tube and Davidson catheter were inserted in the ED and patient was admitted to the hospital under general surgery services. Hospitalist consult for medical management. Patient with significant developmental delay, accompanied by [facility] staff member. Patient is a limited historian but has no acute medical complaints. Denies abdominal pain. No nausea, vomiting. Denies shortness of breath or difficulty breathing. No chest pain/pressure, palpitations. Staff at bedside report patient has been experiencing abdominal distention throughout the day starting yesterday. Patient apparently has chronic cough, unclear if worse than baseline. <PAYTON Atkins - Last Filed: 03/14/24 01:12> Review of Systems 2 Review of Systems: Currently pt has not acute medical complaints Denies abd pain No SOB or difficulty breathing Denies chest pain/pressure No polyuria or dysuria <PAYTON Atkins - Last Filed: 03/14/24 01:12> ON LICENSE OF [facility] Medical History: Medical History Post-surgical hypothyroidism History of ESBL E. coli infection Toxic multinodular goiter Toxic multinodular goiter Vitamin D deficiency Hyperthyroidism Multinodular thyroid Colon cancer Lung mass Developmental delay, mild Arthritis <PAYTON Atkins Last Filed: 03/14/24 01:12> Family History: Family History Father No problems noted. Mother Medical history unknown <PAYTON Atkins - Last Filed: 03/14/24 01:12> Surgical History: Surgical History Hx of total thyroidectomy History of biopsy Hx of colonic polyps Hx of colonoscopy <PAYTON Atkins - Last Filed: 03/14/24 01:12> Social History: Social History Household Members: Other Household Members Other:: gr home Unable to assess alcohol history related to: Unknown Alcohol intake: never Patient Tobacco Use Status: Never used Tobacco Smoked in Last 30 Days: No Use of substances other than those prescribed or required for medical reasons: No Currently Displaying Signs/Symptoms of Drug Intoxication Withdrawal: No Advance Directives: Yes Advance Directives on File: Yes Advance Directives Date on File: 01/05/21 Do you have a plan to hurt others: No Plan service: No Current occupational status: disabled Current occupation: right handed <PAYTON Atkins - Last Filed: 03/14/24 01:12> Meds Allergies/Adverse reactions: Allergies Allergy/AdvReac Type Severity Reaction Status Date / Time adhesive tape Allergy Intermediate itching Verified 03/12/24 19:59 and skin redness latex Allergy Intermediate skin rash Verified 03/12/24 19:59 and itching Seasonal Allergies Allergy Itching Verified 03/12/24 19:59 weed pollen Allergy stuffy nose Verified 03/12/24 19:59 DUST Allergy Unknown ITCHY/WATERY Uncoded 11/28/23 14:45 EYES surgical paper tape Allergy Unknown rash Uncoded 11/28/23 14:45 Tide Allergy Unknown rash Uncoded 11/28/23 14:45 <PAYTON Atkins - Last Filed: 03/14/24 01:12> Active Medications: Current Medications Hydromorphone HCl (Hydromorphone Hcl 0.5 Mg/0.5 Ml Syringe) 0.5 mg IVPUSH Q3H PRN; Protocol PRN Reason: Pain, Severe (Pain Scale 7-10) Acetaminophen (Ofirmev) 1,000 mg in 100 mls @ 400 mls/hr IV Q6H DANA Stop: 03/14/24 03:29 Last Infusion: 03/13/24 10:08 Dose: Infused Dextrose/Lactated Ringer's (D5lr) 1,000 mls @ 125 mls/hr IVCONT .Q8H [facility] Last Admin: 03/13/24 10:08 Dose: 125 mls/hr Ondansetron HCl (Ondansetron Hcl 4 Mg/2 Ml Vial) 4 mg IVPUSH QID PRN PRN Reason: Nausea Sodium Chloride (0.9 % Sodium Chloride Flush 3 Ml Syringe) 3 ml IVFLUSH QSHIFT DANA Sodium Chloride (0.9 % Sodium Chloride Flush 3 Ml Syringe) 3 ml IVFLUSH QSHIFT DANA <PAYTON Atkins - Last Filed: 03/14/24 01:12> Home medications: Home Medications ?Medication ?Instructions ?Recorded ?Confirmed ?Last Taken ?Type acetaminophen 500 mg tablet 500 mg PO Q4H PRN pain/fever 01/05/21 03/13/24 Unknown History aspirin 81 mg tablet,delayed 81 mg PO DAILY 01/05/21 03/13/24 01/24/23 08:00 History release carbamazepine 200 mg tablet 200 mg PO DAILY 01/05/21 03/13/24 01/24/23 08:00 History carbamazepine 200 mg tablet 400 mg PO BEDTIME 01/05/21 03/13/24 01/23/23 20:00 History loratadine 10 mg tablet 10 mg PO DAILY 01/05/21 03/13/24 01/24/23 08:00 History multivitamin 1 tab PO DAILY 01/05/21 03/13/24 01/23/23 08:00 History nystatin 100,000 unit/gram topical 1 appl topical BID PRN Rash 01/05/21 03/13/24 Unknown History powder ibuprofen 400 mg tablet 400 mg PO TID PRN Pain 01/24/23 03/13/24 Unknown History methyl salicylate 30 %-menthol 10 1 appl topical BID 01/24/23 03/13/24 01/24/23 08:00 History % topical cream (Icy Hot) triamcinolone acetonide 0.1 % 1 appl topical BID PRN Skin 01/24/23 03/13/24 Unknown History topical ointment Irritation dextromethorphan-guaifenesin 10 10 ml PO QID PRN Cough 05/10/23 03/13/24 Unknown History mg-200 mg/5 mL oral liquid melatonin 10 mg tablet 10 mg PO BEDTIME 05/10/23 03/13/24 Unknown History ferrous sulfate 325 mg (65 mg 325 mg PO MOWEFR 10/02/23 03/13/24 Unknown History iron) tablet aripiprazole 5 mg tablet (Abilify) 5 mg PO DAILY 03/13/24 03/13/24 Unknown History ascorbic acid (vitamin C) 500 mg 500 mg PO BID 03/13/24 03/13/24 Unknown History tablet (Vitamin C) betamethasone dipropionate 0.05 % 1 appl topical BID PRN Dry areas 03/13/24 03/13/24 Unknown History topical ointment on hand levothyroxine 100 mcg tablet 100 mcg PO DAILY 03/13/24 03/13/24 Unknown History methenamine hippurate 1 gram tablet 1 g PO BID 03/13/24 03/13/24 Unknown History olanzapine 15 mg tablet 15 mg PO BEDTIME 03/13/24 03/13/24 Unknown History polyethylene glycol 3350 17 17 g PO DAILY PRN Constipation 03/13/24 03/13/24 Unknown History gram/dose oral powder trazodone 50 mg tablet 50 mg PO BEDTIME 03/13/24 03/13/24 Unknown History vibegron 75 mg tablet (Gemtesa) 75 mg PO DAILY 03/13/24 03/13/24 Unknown History zinc oxide-vitamin B5-vit E 11.3% 1 appl topical BID Rash 03/13/24 03/13/24 Unknown History topical cream (Balmex Adult Care) <PAYTON Atkins - Last Filed: 03/14/24 01:12> Physical Exam 2 Vital Signs and Narrative: Vital Signs: Last Vital Signs Temp 98.1 F 03/13/24 08:21 Pulse 50 03/13/24 08:21 Resp 16 03/13/24 08:21 BP 118/62 03/13/24 08:21 Pulse Ox 97 03/13/24 08:21 O2 Del Method Room Air 03/13/24 08:21 BMI result Body Mass Index 24.9 <PAYTON Atkins - Last Filed: 03/14/24 01:12> General: Alert and oriented, no acute distress Resp: Diffuse mild bilateral wheezing. CVS: S1, S2, RRR GI: +BS, NT, slight distention. NGT in place Skin: Warm, dry Neuro: Cranial nerves II-XII grossly intact bilaterally. Motor grossly intact bilaterally Extremities: No edema Psych: Calm and cooperative <PAYTON Atkins - Last Filed: 03/14/24 01:12> Results Labs CBC and Chem 7: 03/14/24 05:58 03/14/24 05:58 <PAYTON Atkins - Last Filed: 03/14/24 01:12> Labs: Laboratory Results - last 24 hr 03/12/24 03/13/24 03/13/24 20:17 04:09 05:51 MCV 92.9 MCH 30.8 MCHC 33.1 RDW 14.6 Plt Count 200 MPV 9.5 Immature Gran % (Auto) 0.3 Neut % (Auto) 63.4 Lymph % (Auto) 25.6 [place] % (Auto) 9.7 Eos % (Auto) 0.6 Baso % (Auto) 0.4 Lymph # (Auto) 1.7 [place] # (Auto) 0.7 Eos # (Auto) 0.0 Baso # (Auto) 0.0 Abs Immat Gran (auto) 0.02 Absolute Neuts (auto) 4.3 Absolute Nucleated RBC 0.000 Nucleated RBC % (auto) 0.0 PT 11.0 L INR 0.9 Anion Gap 12 Estim Creat Clear Calc 75.1 Estimated GFR > 60 Random Glucose 91 Lactic Acid 1.0 Calcium 8.3 L D Magnesium 1.9 Total Bilirubin 0.2 AST 91 H ALT 150 H Alkaline Phosphatase 204 H Total Protein 6.9 Albumin 3.7 Lipase 50 Urine Color Yellow Urine Appearance Turbid Urine pH 6.5 Ur Specific [place] 1.010 Urine Protein Trace Urine Glucose (UA) Negative Urine Ketones Negative Urine Blood Large (3+) H Urine Nitrite Negative Ur Leukocyte Esterase Moderate (2+) H Urine RBC >20 H Urine WBC 11-20 H Ur Squamous Epith Cells >20 Urine Bacteria 4+ Hyaline Casts 0-2 <PAYTON Atkins - Last Filed: 03/14/24 01:12> Imaging Radiologist's Impressions: Impressions Chest X-Ray 03/13/24 02:16 IMPRESSION: Possible mild vascular congestion. Colonic dilatation. No definite pneumoperitoneum, small amount of free air not entirely excluded. Abdomen/Pelvis CT 03/13/24 04:45 IMPRESSION: 1. Moderate bilateral hydronephrosis and hydroureter extending into the pelvis without ureteral calculi. The bladder is distended. 2. Prominent fluid-filled small bowel loops without transition. This could be secondary to ileus. Developing obstruction considered less likely. Clinical follow-up suggested. 3. Cholelithiasis with nonspecific gallbladder wall thickening. 4. Soft tissue anasarca. 5. Cardiomegaly with minimal pericardial effusion. 6. Retained stool throughout. Fleischner guidelines were followed. Chest X-Ray 03/13/24 05:39 IMPRESSION: 1. Gastric tube extends below the diaphragm into the left abdomen in good position. 2. Low lung volumes and pulmonary vascular congestion. <PAYTON Atkins - Last Filed: 03/14/24 01:12> Assessment and Plan (1) Small bowel obstruction: Status: Acute <PAYTON Atkins - Last Filed: 03/14/24 01:12> Patient is a 68-year-old female with a PMH significant for toxic multinodular goiter, hypothyroidism, hx of colon cancer s/p colectomy with anastomosis, hx of ESBL E coli UTI, lung mass, and developmental delay who initially presented to the ED yesterday on 03/12 from [facility] for evaluation of abdominal pain and distention. Was admitted under general surgery services for management of ileus versus SBO. Hospitalist consult for medical management. 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 Will continue to follow with you for now. <PAYTON Atkins - Last Filed: 03/14/24 01:12> Patient is a 68-year-old female with a PMH significant for toxic multinodular goiter, hypothyroidism, hx of colon cancer s/p colectomy with anastomosis, hx of ESBL E coli UTI, lung mass, and developmental delay who initially presented to the ED yesterday on 03/12 from [facility] for evaluation of abdominal pain and distention. Was admitted under general surgery services for management of ileus versus SBO. Hospitalist consult for medical management. Ileus versus SBO Plan as per General surgery ct abd shows -cholelithasis ,patient has elevated lft and alk phos hida added zosyn Hypoxia-in ed i time sats 88 % on Ra Unclear etiology-possible atelactasis related CXR showing low lung volumes -atelactasis ,pulmonary vascular congestion, but similar to previous Pt denies SOB or difficulty breathing,Has chronic cough unclear if worse than baseline. overnight sats 94-97% ,taken off oxygen sats 96% roomair , bnp 39 respiratory viral panel-negative . plan: Incentive spirometry, chest physiotherapy oob Hx of ESBL E coli UTI UA with moderate leukocyte esterase, but only 11-20 wbc's, 4+ bacteria ?Patient with chronic UTIs, likely colonized Patient given empiric meropenem in the ED. urine culture mixed talia, will add repeat urine culture . added repeat urine cultures Id eval. Hy,pothyroidism Last TSH 49.85-improving to 37, free t4 also bodelrine low. adjusted levothyroxine to 112.5 mcg ,moniter tsh in1 week. Hypertension Continue home meds Mood disorder Continue home meds Thank you for allowing us to participate in the care of this patient. Will continue to follow with you for now. <Samantha Mariscal MD - Last Filed: 03/14/24 15:19>
--- NOTE | 2024-03-13 15:37 | HE.PHANOTE ---
Med rec double check by [facility], hydrochlorothiazide recently filled at patients pharmacy but confirmed that this has been discontinued. Patients dose of levothyroxine has been increased to 100 mcg daily.
--- NOTE | 2024-03-13 18:36 | PC.NURSE ---
Transport arrived to take pt upstairs. Transport noted that pt's NG was on the floor. Pt removed NG tuber herself. It is unclear when she did so, Pt had NG tube in attached to low wall suction when assessed at about 1700
[2024-03-13] MEDS: OLANZapine 7.5 MG TABLET 15 MG PO (19:39)
[2024-03-13] MEDS: carBAMazepine 200 MG TABLET 400 MG PO (19:39)
[2024-03-13] MEDS: Methenamine Hippurate 1 GM TABLET PO (19:40)
[2024-03-13] MEDS: traZODone HCL 50 MG TABLET PO (19:40)
[2024-03-13] MEDS: Melatonin 3 MG TABLET 6 MG PO (20:37)
[2024-03-14] MEDS: Dextrose 5 % and Lactated Ring 1,000 ML 125 ML IVCONT ×3 (01:31→17:48)
[2024-03-14 04:00] VITALS: BP 121/60; PULSE 58; RESP 16; TEMP 36.9; O2SAT 97
[2024-03-14] MEDS: Levothyroxine Sodium 100 MCG TABLET PO (05:25)
[2024-03-14 06:36] LABS: MANUAL DIFF FLAG NO
[2024-03-14 06:51] LABS: Basophils Percent Auto 0.3 % (0-2); Eosinophils Absolute Auto 0.1 X10*3/uL (0.0-0.4); Eosinophils Percent Auto 0.5 % (0-4); Hematocrit 31.5 % (37.0-47.0); Hemoglobin 10.2 g/dl (12.0-16.0); Imm Gran Abs Auto 0.04 X10*3/uL (0.00-0.03); Imm Gran Pct Auto 0.3 % (0.0-0.4); Lymphocytes Absolute Auto 1.5 X10*3/uL (1.2-4.9); Lymphocytes Percent Auto 12.2 % (20-40); Mean Corpuscular HGB Conc 32.4 g/dl (31.0-35.0); Mean Corpuscular Hemoglobin 30.4 pg (27.0-33.0); Mean Corpuscular Volume 93.8 fL (80.0-98.0); Mean Platelet Volume 9.9 fL (9.4-12.3); Monocytes Absolute Auto 0.8 X10*3/uL (0.1-1.2); Monocytes Percent Auto 6.7 % (2-11); Neutrophils Absolute Auto 10.1 x10*3/uL (2.0-8.3); Platelet Count 187 X10*3/uL (160-400); Red Blood Count 3.36 X10*6/uL (4.20-5.50); Red Cell Distribution Width 14.9 % (11.0-16.0); White Blood Count 12.6 X10*3/uL (4.8-10.8)
[2024-03-14 07:00] LABS: Alanine Aminotransferase 80 U/L (0-31); Albumin Level 2.7 g/dL (3.5-5.0); Alkaline Phosphatase 146 U/L (39-117); Anion Gap 8 (12-20); Aspartate Amino Transferase 40 U/L (5-31); Bilirubin Total 0.4 mg/dL (0.0-1.0); Blood Urea Nitrogen 13 mg/dL (9-16); Calcium 7.9 mg/dL (8.4-10.2); Carbon Dioxide 26 mmol/L (22-29); Chloride 109 mmol/L (96-108); Creatinine Clr Calc Pharmacy 76.2; Estimated Glomerular Filt Rate > 60; Glucose Random 95 mg/dL (60-115); Potassium 3.6 mmol/L (3.3-5.1); Sodium 139 mmol/L (135-145); Total Protein 5.4 g/dL (6.5-8.0)
[2024-03-14 07:21] LABS: TSH reflex Free T4 37.91 uIU/mL (0.32-4.0)
[2024-03-14 07:52] LABS: Free T4 (Free Thyroxine) 0.68 ng/dL (0.71-1.85)
--- NOTE | 2024-03-14 07:56 | P.PNGS_ITS ---
Subjective Subjective Date of Service: 03/14/24 Interval history: HD #2 with abdominal distension found to have ileus on CT. This morning she feels much improved with no abdominal pain, nausea or vomiting. No report of flatus or BM yet. She is hungry and would like to eat. She pulled the NG tube out last night. Physical Exam 2 Vital Signs: Vital Signs: Last Vital Signs Temp 98.5 F 03/14/24 04:00 Pulse 58 03/14/24 04:00 Resp 16 03/14/24 04:00 BP 121/60 03/14/24 04:00 Pulse Ox 97 03/14/24 04:00 O2 Del Method Nasal Cannula 03/14/24 04:00 O2 Flow Rate 2 03/14/24 04:00 BMI result Body Mass Index 24.9 Const: General: comfortable and no acute distress Nutritional Appearance: w ell nourished Resp: Effort & Inspection: normal respiratory effort GI: Other: Soft, minimally distended. No tympany to percussion. Nontender to palpation. Extrem: Other: No edema. Objective Data Active Medications Aripiprazole (Aripiprazole 5 Mg Tablet) 5 mg PO DAILY [facility] Aspirin (Aspirin Enteric Coated 81 Mg Tablet.Dr) 81 mg PO DAILY [facility] Carbamazepine (Carbamazepine 200 Mg Tablet) 200 mg PO DAILY [facility] Carbamazepine (Carbamazepine 200 Mg Tablet) 400 mg PO BEDTIME [facility] Last Admin: 03/13/24 19:39 Dose: 400 mg Documented By: LEROY Hydromorphone HCl (Hydromorphone Hcl 0.5 Mg/0.5 Ml Syringe) 0.5 mg IVPUSH Q3H PRN; Protocol PRN Reason: Pain, Severe (Pain Scale 7-10) Dextrose/Lactated Ringer's (D5lr) 1,000 mls @ 125 mls/hr IVCONT .Q8H [facility] Last Admin: 03/14/24 01:31 Dose: 125 mls/hr Documented By: LEROY Levothyroxine Sodium (Levothyroxine Sodium 100 Mcg Tablet) 100 mcg PO DAILY@0630 [facility] Last Admin: 03/14/24 05:25 Dose: 100 mcg Documented By: LEROY Comments: patient awake for respiratory panel, medications given Loratadine (Loratadine 10 Mg Tablet) 10 mg PO DAILY [facility] Melatonin (Melatonin 3 Mg Tablet) 6 mg PO BEDTIME PRN PRN Reason: Insomnia Last Admin: 03/13/24 20:37 Dose: 6 mg Documented By: LEROY Methenamine Hippurate (Methenamine Hippurate 1 Gm Tablet) 1 gm PO BID [facility] Last Admin: 03/13/24 19:40 Dose: 1 gm Documented By: LEROY Olanzapine (Olanzapine 7.5 Mg Tablet) 15 mg PO BEDTIME [facility] Last Admin: 03/13/24 19:39 Dose: 15 mg Documented By: LEROY Ondansetron HCl (Ondansetron Hcl 4 Mg/2 Ml Vial) 4 mg IVPUSH QID PRN PRN Reason: Nausea Sodium Chloride (0.9 % Sodium Chloride Flush 3 Ml Syringe) 3 ml IVFLUSH [facility] Last Admin: 03/14/24 01:04 Dose: Not Given Documented By: LEROY Non-Admin Reason: IV Running Sodium Chloride (0.9 % Sodium Chloride Flush 3 Ml Syringe) 3 ml IVFLUSH [facility] Last Admin: 03/14/24 01:05 Dose: Not Given Documented By: LEROY Non-Admin Reason: IV Running Trazodone HCl (Trazodone Hcl 50 Mg Tablet) 50 mg PO BEDTIME [facility] Last Admin: 03/13/24 19:40 Dose: 50 mg Documented By: LEROY Labs 03/14/24 05:58 03/14/24 05:58 Labs: Laboratory Results - last 24 hr 03/14/24 05:58 MCV 93.8 MCH 30.4 MCHC 32.4 RDW 14.9 Plt Count 187 MPV 9.9 Immature Gran % (Auto) 0.3 Neut % (Auto) 80.0 H Lymph % (Auto) 12.2 L Lares % (Auto) 6.7 Eos % (Auto) 0.5 Baso % (Auto) 0.3 Lymph # (Auto) 1.5 Lares # (Auto) 0.8 Eos # (Auto) 0.1 Baso # (Auto) 0.0 Abs Immat Gran (auto) 0.04 H Absolute Neuts (auto) 10.1 H Absolute Nucleated RBC 0.000 Nucleated RBC % (auto) 0.0 Anion Gap 8 L Estim Creat Clear Calc 76.2 Estimated GFR > 60 Random Glucose 95 Calcium 7.9 L Total Bilirubin 0.4 AST 40 H ALT 80 H Alkaline Phosphatase 146 H Total Protein 5.4 L Albumin 2.7 L TSH 37.91 H Free T4 0.68 L Procedures Date of Service Date of Service: 03/14/24 Progress Note: A&P Assessment and plan (1) Ileus: Status: Acute Plan 68-year-old female patient presenting with abdominal distention, nausea and vomiting found on CT to have an ileus with diffuse fluid-filled loops of small and large bowel without transition point. This morning she feels much improved with no abdominal pain, nausea or vomiting. NG tube was pulled out last evening but not replaced. She reports being hungry would like to eat. As her abdomen is soft and nontender, I recommended starting with clear liquids. If this is tolerated, we will advance slowly. She may need small bowel series if no bowel movement. Time Spent With Patient Time: Total time managing care of this patient today ____ minutes. Quality Stroke Does the patient have a stroke diagnosis?: No VTE Prior VTE?: No VTE Risk Level:: Surgical - moderate VTE Device Contraindication: N/A - Device Ordered VTE Drug Contraindication: Treatment Not Indicated
[2024-03-14 08:00] VITALS: BP 111/53; PULSE 55; RESP 17; TEMP 36.6; O2SAT 95
[2024-03-14] MEDS: carBAMazepine 200 MG TABLET PO (08:51)
[2024-03-14] MEDS: Aspirin Enteric Coated 81 MG TABLET.DR PO (08:51)
[2024-03-14] MEDS: 0.9 % Sodium Chloride Flush 3 ML SYRINGE IVFLUSH ×2 (08:51→13:45)
[2024-03-14] MEDS: Methenamine Hippurate 1 GM TABLET PO ×2 (08:51→20:38)
[2024-03-14] MEDS: ARIPiprazole 5 MG TABLET PO (08:51)
[2024-03-14] MEDS: Loratadine 10 MG TABLET PO (08:51)
[2024-03-14] MEDS: Piperacillin Sodium/Tazobactam 3.375 GM in 0.9 % Sodium Chloride 50 ML IV ×3 (08:51→20:37)
[2024-03-14 09:05] LABS: B Type Natriuretic Peptide 39 pg/mL (<100)
--- NOTE | 2024-03-14 11:16 | MHC.CM.PN ---
PER EMR, PT LIVES IN A [facility] CM ATTEMPTED TO REACH THE PTS CONTACT ON FILE, JOSE ALEJANDRO REGAN, A VM WAS LEFT REQUESTING A RETURN CALL CM ALSO ATTEMPTED TO CONTACT PTS [facility] APPLICATION SUPPORT MANAGER LISTED DURING HER LAST ADMISSION, ZACHARY MELGAR [phone], NO ANSWER. PER NOTES FROM PTS LAST ADMISSION, IN OCTOBER 2023, SHE USES A [facility] AT [facility] AND HER HCP IS INVOKED HCP ON FILE: MISA FRENCH [phone] OR [phone] PCP: LUIS SINGH CM ATTEMPTED TO DELIVER PTS MEDICARE RIGHTS TO HER HCP VIA T/C, HOWEVER THERE WAS NO ANSWER AT EITHER NUMBER ON FILE DCP: RETURN TO ? BLS
[2024-03-14 11:28] VITALS: O2SAT 96
[2024-03-14 12:16] LABS: Adenovirus PCR Not Detected (Not Detect.); Bordetella parapertussis PCR Not Detected (Not Detect.); Bordetella pertussis PCR Not Detected (Not Detect.); Chlamydia pneumoniae PCR Not Detected (Not Detect.); Coronavirus 229E PCR Not Detected (Not Detect.); Coronavirus HKU1 PCR Not Detected (Not Detect.); Coronavirus NL63 PCR Not Detected (Not Detect.); Coronavirus OC43 PCR Not Detected (Not Detect.); Human metapneumovirus PCR Not Detected (Not Detect.); Influenza A PCR Not Detected (Not Detect.); Influenza B PCR Not Detected (Not Detect.); Mycoplasma pneumoniae PCR Not Detected (Not Detect.); Parainfluenza 1 PCR Not Detected (Not Detect.); Parainfluenza 2 PCR Not Detected (Not Detect.); Parainfluenza 3 PCR Not Detected (Not Detect.); Parainfluenza 4 PCR Not Detected (Not Detect.); RSV PCR Not Detected (Not Detect.); Rhino/Enterovirus PCR Not Detected (Not Detect.)
[2024-03-14 12:32] LABS: SARS-CoV-2 PCR Not Detected (Not Detect.)
--- NOTE | 2024-03-14 15:19 | P.PNIM_ITS ---
Subjective Subjective Date of Service: 03/14/24 Interval History: Ielus Review of Systems no abd pain no nausea or vomiting or sob or fevers Physical Exam 2 Vital Signs: Vital Signs: Last Vital Signs Temp 97.8 F 03/14/24 08:00 Pulse 55 03/14/24 08:00 Resp 17 03/14/24 08:00 BP 111/53 L 03/14/24 08:00 Pulse Ox 96 03/14/24 11:28 O2 Del Method Room Air 03/14/24 11:28 O2 Flow Rate 2.0 03/14/24 08:00 BMI result Body Mass Index 24.9 Appearance: Alert.? Oriented at baseline. cvs: [id number], [id number] , no murmur res: clear to auscultation ,no rhonchii or wheezing abd: no rebound or guarding ,nt, bs present. ext pulses present , no cyanosis. neuro: axo3 , nonfocal. Objective Data Active Medications Aripiprazole (Aripiprazole 5 Mg Tablet) 5 mg PO DAILY [facility] Last Admin: 03/14/24 08:51 Dose: 5 mg Documented By: GILMA Aspirin (Aspirin Enteric Coated 81 Mg Tablet.) 81 mg PO DAILY [facility] Last Admin: 03/14/24 08:51 Dose: 81 mg Documented By: GILMA Carbamazepine (Carbamazepine 200 Mg Tablet) 200 mg PO DAILY [facility] Last Admin: 03/14/24 08:51 Dose: 200 mg Documented By: GILMA Carbamazepine (Carbamazepine 200 Mg Tablet) 400 mg PO BEDTIME [facility] Last Admin: 03/13/24 19:39 Dose: 400 mg Documented By: LEROY Hydromorphone HCl (Hydromorphone Hcl 0.5 Mg/0.5 Ml Syringe) 0.5 mg IVPUSH Q3H PRN; Protocol PRN Reason: Pain, Severe (Pain Scale 7-10) Dextrose/Lactated Ringer's (D5lr) 1,000 mls @ 125 mls/hr IVCONT .Q8H [facility] Last Admin: 03/14/24 08:56 Dose: 125 mls/hr Documented By: GILMA Piperacillin Sod/Tazobactam (Sod 3.375 gm/ Sodium Chloride) 50 mls @ 100 mls/hr IV Q6H [facility] Last Infusion: 03/14/24 14:25 Dose: Infused Documented By: GILMA Levothyroxine Sodium (Levothyroxine Sodium 100 Mcg Tablet) 112.5 mcg PO DAILY@0630 [facility] Loratadine (Loratadine 10 Mg Tablet) 10 mg PO DAILY [facility] Last Admin: 03/14/24 08:51 Dose: 10 mg Documented By: GILMA Melatonin (Melatonin 3 Mg Tablet) 6 mg PO BEDTIME PRN PRN Reason: Insomnia Last Admin: 03/13/24 20:37 Dose: 6 mg Documented By: LEROY Methenamine Hippurate (Methenamine Hippurate 1 Gm Tablet) 1 gm PO BID [facility] Last Admin: 03/14/24 08:51 Dose: 1 gm Documented By: GILMA Olanzapine (Olanzapine 7.5 Mg Tablet) 15 mg PO BEDTIME [facility] Last Admin: 03/13/24 19:39 Dose: 15 mg Documented By: LEROY Ondansetron HCl (Ondansetron Hcl 4 Mg/2 Ml Vial) 4 mg IVPUSH QID PRN PRN Reason: Nausea Sodium Chloride (0.9 % Sodium Chloride Flush 3 Ml Syringe) 3 ml IVFLUSH [facility] Last Admin: 03/14/24 13:45 Dose: 3 ml Documented By: GILMA Sodium Chloride (0.9 % Sodium Chloride Flush 3 Ml Syringe) 3 ml IVFLUSH [facility] Last Admin: 03/14/24 13:45 Dose: Not Given Documented By: GILMA Non-Admin Reason: Duplicate Order Trazodone HCl (Trazodone Hcl 50 Mg Tablet) 50 mg PO BEDTIME [facility] Last Admin: 03/13/24 19:40 Dose: 50 mg Documented By: LEROY Labs 03/14/24 05:58 03/14/24 05:58 Labs: Laboratory Results - last 24 hr 03/14/24 03/14/24 05:21 05:58 MCV 93.8 MCH 30.4 MCHC 32.4 RDW 14.9 Plt Count 187 MPV 9.9 Immature Gran % (Auto) 0.3 Neut % (Auto) 80.0 H Lymph % (Auto) 12.2 L Benzie % (Auto) 6.7 Eos % (Auto) 0.5 Baso % (Auto) 0.3 Lymph # (Auto) 1.5 Benzie # (Auto) 0.8 Eos # (Auto) 0.1 Baso # (Auto) 0.0 Abs Immat Gran (auto) 0.04 H Absolute Neuts (auto) 10.1 H Absolute Nucleated RBC 0.000 Nucleated RBC % (auto) 0.0 Anion Gap 8 L Estim Creat Clear Calc 76.2 Estimated GFR > 60 Random Glucose 95 Calcium 7.9 L Total Bilirubin 0.4 AST 40 H ALT 80 H Alkaline Phosphatase 146 H B-Natriuretic Peptide 39 Total Protein 5.4 L Albumin 2.7 L TSH 37.91 H Free T4 0.68 L Respiratory Panel [place] See Note Adenovirus (Rapid PCR) Not Detected B.pert (TEM-PCR) Not Detected B.parapertussis DNA PCR Not Detected C. pneumoniae DNA (PCR) Not Detected Coronavirus OC43 (PCR) Not Detected Coronavirus HKU1 (PCR) Not Detected Coronavirus 229E (PCR) Not Detected Coronavirus NL63 (PCR) Not Detected Human Metapneumovir PCR Not Detected Influenza A (RT-PCR) Not Detected Influenza B (RT-PCR) Not Detected M. pneumoniae (PCR) Not Detected Parainfluenza 1 (PCR) Not Detected Parainfluenza 2 (PCR) Not Detected Parainfluenza 3 (PCR) Not Detected Parainfluenza 4 (PCR) Not Detected RSV (PCR) Not Detected Entero/Rhino (PCR) Not Detected SARS-CoV-2 RNA (RT-PCR) Not Detected Microbiology Microbiology Results: Microbiology 03/13/24 05:51 Urine Culture - Final Urine clean catch - Urine elder top 03/13/24 05:51 Blood Culture - Preliminary Blood - Arterial No growth after 24 hours. 03/13/24 05:51 Blood Culture - Preliminary Blood - Arterial No growth after 24 hours. Assessment and Plan (1) Partial small bowel obstruction: Status: Resolved (2) Bladder outlet obstruction: Status: Resolved (3) History of ESBL E. coli infection: Status: Inactive Plan 68-year-old female with a PMH significant for toxic multinodular goiter, hypothyroidism, hx of colon cancer s/p colectomy with anastomosis, hx of ESBL E coli UTI, lung mass, and developmental delay who initially presented to the ED yesterday on 03/12 from detention for evaluation of abdominal pain and distention. Was admitted under general surgery services for management of ileus versus SBO. Hospitalist consult for medical management. Ileus versus SBO Plan as per General surgery ct abd shows -cholelithasis ,patient has elevated lft and alk phos hida continue zosyn Hypoxia-in ed i time sats 88 % on Ra Unclear etiology-possible atelactasis related CXR showing low lung volumes -atelactasis ,pulmonary vascular congestion, but similar to previous Pt denies SOB or difficulty breathing,Has chronic cough unclear if worse than baseline. overnight sats 94-97% ,taken off oxygen sats 96% roomair , bnp 39 respiratory viral panel-negative . plan: Incentive spirometry, chest physiotherapy oob Hx of ESBL E coli UTI UA with moderate leukocyte esterase, but only 11-20 wbc's, 4+ bacteria ?Patient with chronic UTIs, likely colonized Patient given empiric meropenem in the ED. urine culture mixed talia, will add repeat urine culture . added repeat urine cultures Id eval. Hy,pothyroidism Last TSH 49.85-improving to 37, free t4 also bodelrine low. adjusted levothyroxine to 112.5 mcg ,moniter tsh in1 week. Hypertension Continue home meds Mood disorder Continue home meds Quality Stroke Does the patient have a stroke diagnosis?: No VTE Prior VTE?: No VTE Risk Level:: Surgical - moderate VTE Device Contraindication: N/A - Device Ordered VTE Drug Contraindication: Treatment Not Indicated
[2024-03-14 19:28] VITALS: BP 126/60; PULSE 60; RESP 18; TEMP 36.6; O2SAT 96
[2024-03-14] MEDS: Melatonin 3 MG TABLET 6 MG PO (20:38)
[2024-03-14] MEDS: carBAMazepine 200 MG TABLET 400 MG PO (20:38)
[2024-03-14] MEDS: OLANZapine 7.5 MG TABLET 15 MG PO (20:38)
[2024-03-14] MEDS: traZODone HCL 50 MG TABLET PO (20:38)
[2024-03-15] MEDS: Piperacillin Sodium/Tazobactam 3.375 GM in 0.9 % Sodium Chloride 50 ML IV ×4 (03:13→19:55)
--- NOTE | 2024-03-15 03:36 | PC.NURSE ---
pt agitated and trying to pull out IV, screaming for the nurse to remove all her bracelets and the antibiotic that was running. RN turned off zosyn, flushed IV and there was no leak. PT tried to pull out IV. RN stopped infusion and was able to redirect patient, patient still refusing infusion. RN stopped antibiotic, patient only received 1/2 dose.
[2024-03-15 04:00] VITALS: BP 112/57; PULSE 52; RESP 16; TEMP 36.7; O2SAT 93
--- NOTE | 2024-03-15 07:32 | PM.PNGS ---
Subjective Subjective Date of Service: 03/15/24 Interval history: Patient feels improved with no abdominal pain, nausea or vomiting. No BM yet. Physical Exam Vital Signs: Vital Signs: Last Vital Signs Temp 98.0 F 03/15/24 04:00 Pulse 52 03/15/24 04:00 Resp 16 03/15/24 04:00 BP 112/57 L 03/15/24 04:00 Pulse Ox 93 03/15/24 04:00 O2 Del Method Room Air 03/15/24 04:00 O2 Flow Rate 2.0 03/14/24 08:00 BMI result Body Mass Index 24.9 Const: General: comfortable and no acute distress Nutritional Appearance: well nourished Resp: Effort & Inspection: normal respiratory effort GI: Other: Soft, non-distended. No tympany to percussion. Nontender to palpation. Extrem: Other: No edema. Objective Data Active Medications Aripiprazole (Aripiprazole 5 Mg Tablet) 5 mg PO DAILY [facility] Last Admin: 03/14/24 08:51 Dose: 5 mg Documented By: GILMA Aspirin (Aspirin Enteric Coated 81 Mg Tablet.Dr) 81 mg PO DAILY [facility] Last Admin: 03/14/24 08:51 Dose: 81 mg Documented By: GILMA Carbamazepine (Carbamazepine 200 Mg Tablet) 200 mg PO DAILY [facility] Last Admin: 03/14/24 08:51 Dose: 200 mg Documented By: GILMA Carbamazepine (Carbamazepine 200 Mg Tablet) 400 mg PO BEDTIME [facility] Last Admin: 03/14/24 20:38 Dose: 400 mg Documented By: LEROY Hydromorphone HCl (Hydromorphone Hcl 0.5 Mg/0.5 Ml Syringe) 0.5 mg IVPUSH Q3H PRN; Protocol PRN Reason: Pain, Severe (Pain Scale 7-10) Piperacillin Sod/Tazobactam (Sod 3.375 gm/ Sodium Chloride) 50 mls @ 100 mls/hr IV Q6H [facility] Last Infusion: 03/15/24 03:36 Dose: 0 mls/hr Documented By: LEROY Levothyroxine Sodium (Levothyroxine Sodium 100 Mcg Tablet) 112.5 mcg PO DAILY@0630 [facility] Last Admin: 03/15/24 06:03 Dose: Not Given Documented By: LEROY Non-Admin Reason: Patient Refused Loratadine (Loratadine 10 Mg Tablet) 10 mg PO DAILY [facility] Last Admin: 03/14/24 08:51 Dose: 10 mg Documented By: GILMA Melatonin (Melatonin 3 Mg Tablet) 6 mg PO BEDTIME PRN PRN Reason: Insomnia Last Admin: 03/14/24 20:38 Dose: 6 mg Documented By: LEROY Methenamine Hippurate (Methenamine Hippurate 1 Gm Tablet) 1 gm PO BID [facility] Last Admin: 03/14/24 20:38 Dose: 1 gm Documented By: LEROY Olanzapine (Olanzapine 7.5 Mg Tablet) 15 mg PO BEDTIME [facility] Last Admin: 03/14/24 20:38 Dose: 15 mg Documented By: LEROY Ondansetron HCl (Ondansetron Hcl 4 Mg/2 Ml Vial) 4 mg IVPUSH QID PRN PRN Reason: Nausea Sodium Chloride (0.9 % Sodium Chloride Flush 3 Ml [facility]ringe) [facility] Last Admin: 03/14/24 20:48 Dose: Not Given Documented By: LEROY Non-Admin Reason: IV Running Sodium Chloride (0.9 % Sodium Chloride Flush 3 Ml Syringe) [facility] Last Admin: 03/14/24 20:48 Dose: Not Given Documented By: LEROY Non-Admin Reason: double order Trazodone HCl (Trazodone Hcl 50 Mg Tablet) 50 mg PO BEDTIME [facility] Last Admin: 03/14/24 20:38 Dose: 50 mg Documented By: LEROY Labs 03/14/24 05:58 03/14/24 05:58 Labs: Laboratory Results - last 24 hr 03/14/24 03/14/24 05:21 05:58 B-Natriuretic Peptide 39 Free T4 0.68 L Respiratory Panel [place] See Note Adenovirus (Rapid PCR) Not Detected B.pert (TEM-PCR) Not Detected B.parapertussis DNA PCR Not Detected C. pneumoniae DNA (PCR) Not Detected Coronavirus OC43 (PCR) Not Detected Coronavirus HKU1 (PCR) Not Detected Coronavirus 229E (PCR) Not Detected Coronavirus NL63 (PCR) Not Detected Human Metapneumovir PCR Not Detected Influenza A (RT-PCR) Not Detected Influenza B (RT-PCR) Not Detected M. pneumoniae (PCR) Not Detected Parainfluenza 1 (PCR) Not Detected Parainfluenza 2 (PCR) Not Detected Parainfluenza 3 (PCR) Not Detected Parainfluenza 4 (PCR) Not Detected RSV (PCR) Not Detected Entero/Rhino (PCR) Not Detected SARS-CoV-2 RNA (RT-PCR) Not Detected Microbiology Microbiology Results: Microbiology 03/13/24 05:51 Urine Culture - Final Urine clean catch - Urine elder top 03/13/24 05:51 Blood Culture - Preliminary Blood - Arterial No growth after 24 hours. 03/13/24 05:51 Blood Culture - Preliminary Blood - Arterial No growth after 24 hours. Procedures Date of Service Date of Service: 03/15/24 Progress Note: A&P Assessment and plan (1) Ileus: Status: Acute Plan 68-year-old female patient presenting with abdominal distention, nausea and vomiting found on CT to have an ileus with diffuse fluid-filled loops of small and large bowel without transition point. This morning she feels much improved with no abdominal pain, nausea or vomiting. She tolerated the clear liquids and would like to try a regular diet. Her abdomen is soft and nontender. HIDA scan reviewed. Normal filling of liver, gallbladder, CBD, and small bowel. Decreased EF % with CCK. Negative for acute cholecystitis, possible chronic cholecystitis. Patient is now asymptomatic. Will advance diet. Add stool softener. D/C christopher catheter. OOB and ambulate. Time Spent With Patient Time: Total time managing care of this patient today ____ minutes. Quality Stroke Does the patient have a stroke diagnosis?: No VTE Prior VTE?: No VTE Risk Level:: Surgical - moderate VTE Device Contraindication: N/A - Device Ordered VTE Drug Contraindication: Treatment Not Indicated
[2024-03-15 07:48] VITALS: BP 119/59; PULSE 59; RESP 16; TEMP 36.5; O2SAT 92
[2024-03-15] MEDS: Aspirin Enteric Coated 81 MG TABLET.DR PO (08:22)
[2024-03-15] MEDS: ARIPiprazole 5 MG TABLET PO (08:22)
[2024-03-15] MEDS: carBAMazepine 200 MG TABLET PO (08:22)
[2024-03-15] MEDS: 0.9 % Sodium Chloride Flush 3 ML SYRINGE IVFLUSH ×4 (08:23→20:20)
[2024-03-15] MEDS: Loratadine 10 MG TABLET PO (08:34)
[2024-03-15] MEDS: Methenamine Hippurate 1 GM TABLET PO ×2 (08:34→20:16)
--- NOTE | 2024-03-15 11:12 | PC.NURSE ---
Davidson cath removed at 0815.
--- NOTE | 2024-03-15 14:46 | PC.NURSE ---
Pt voided approx 50cc urine. will push fluids.
[2024-03-15 15:15] VITALS: BP 121/59; PULSE 59; RESP 18; TEMP 36.9; O2SAT 94
--- NOTE | 2024-03-15 15:19 | P.PNIM_ITS ---
Subjective Subjective Date of Service: 03/15/24 Interval History: Ielus Review of Systems no abd pain no bm yet no fevers Physical Exam 2 Vital Signs: Vital Signs: Last Vital Signs Temp 98.5 F 03/15/24 15:15 Pulse 59 03/15/24 15:15 Resp 18 03/15/24 15:15 BP 121/59 L 03/15/24 15:15 Pulse Ox 94 03/15/24 15:15 O2 Del Method Room Air 03/15/24 15:15 O2 Flow Rate 2.0 03/14/24 08:00 BMI result Body Mass Index 24.9 Appearance: Alert.? Oriented at baseline. cvs: rrr, [id number] , no murmur res: clear to auscultation ,no rhonchii or wheezing abd: no rebound or guarding ,nt, bs present. ext pulses present , no cyanosis. neuro: axo3 , nonfocal. Objective Data Active Medications Aripiprazole (Aripiprazole 5 Mg Tablet) 5 mg PO DAILY [facility] Last Admin: 03/15/24 08:22 Dose: 5 mg Documented By: MELINA Aspirin (Aspirin Enteric Coated 81 Mg Tablet.) 81 mg PO DAILY [facility] [place] Last Admin: 03/15/24 08:22 Dose: 81 mg Documented By: MELINA Carbamazepine (Carbamazepine 200 Mg Tablet) 200 mg PO DAILY [facility] [place] Last Admin: 03/15/24 08:22 Dose: 200 mg Documented By: MELINA Carbamazepine (Carbamazepine 200 Mg Tablet) 400 mg PO BEDTIME [facility] Last Admin: 03/14/24 20:38 Dose: 400 mg Documented By: LEROY Hydromorphone HCl (Hydromorphone Hcl 0.5 Mg/0.5 Ml Syringe) 0.5 mg IVPUSH Q3H PRN; Protocol PRN Reason: Pain, Severe (Pain Scale 7-10) Piperacillin Sod/Tazobactam (Sod 3.375 gm/ Sodium Chloride) 50 mls @ 100 mls/hr IV Q6H [facility] Last Admin: 03/15/24 14:47 Dose: 100 mls/hr Documented By: MELINA Levothyroxine Sodium (Levothyroxine Sodium 100 Mcg Tablet) 112.5 mcg PO DAILY@0630 [facility] Last Admin: 03/15/24 06:03 Dose: Not Given Documented By: LEROY Non-Admin Reason: Patient Refused Loratadine (Loratadine 10 Mg Tablet) 10 mg PO DAILY [facility] [place] Last Admin: 03/15/24 08:34 Dose: 10 mg Documented By: MELINA Melatonin (Melatonin 3 Mg Tablet) 6 mg PO BEDTIME PRN PRN Reason: Insomnia Last Admin: 03/14/24 20:38 Dose: 6 mg Documented By: LEROY Methenamine Hippurate (Methenamine Hippurate 1 Gm Tablet) 1 gm PO BID [facility] Last Admin: 03/15/24 08:34 Dose: 1 gm Documented By: MELINA Olanzapine (Olanzapine 7.5 Mg Tablet) 15 mg PO BEDTIME [facility] Last Admin: 03/14/24 20:38 Dose: 15 mg Documented By: LEROY Ondansetron HCl (Ondansetron Hcl 4 Mg/2 Ml Vial) 4 mg IVPUSH QID PRN PRN Reason: Nausea Sodium Chloride (0.9 % Sodium Chloride Flush 3 Ml Syringe) 3 ml IVFLUSH QSNMFT [facility] Last Admin: 03/15/24 08:23 Dose: 3 ml Documented By: MELINA Sodium Chloride (0.9 % Sodium Chloride Flush 3 Ml Syringe) 3 ml IVFLUSH QSNMFT [facility] Last Admin: 03/15/24 15:19 Dose: Not Given Documented By: STANLEY Non-Admin Reason: Duplicate Order Trazodone HCl (Trazodone Hcl 50 Mg Tablet) 50 mg PO BEDTIME [facility] Last Admin: 03/14/24 20:38 Dose: 50 mg Documented By: LEROY Labs 03/14/24 05:58 03/14/24 05:58 Microbiology Microbiology Results: Microbiology 03/14/24 18:36 Urine Culture - Preliminary Urine Catheterized - Davidson Catheter No growth to date. 03/13/24 05:51 Blood Culture - Preliminary Blood - Arterial No growth after 48 hours. 03/13/24 05:51 Blood Culture - Preliminary Blood - Arterial No growth after 48 hours. Assessment and Plan (1) Partial small bowel obstruction: Status: Resolved (2) Bladder outlet obstruction: Status: Resolved (3) History of ESBL E. coli infection: Status: Inactive Plan 68-year-old female with a PMH significant for toxic multinodular goiter, hypothyroidism, hx of colon cancer s/p colectomy with anastomosis, hx of ESBL E coli UTI, lung mass, and developmental delay who initially presented to the ED yesterday on 03/12 from residential for evaluation of abdominal pain and distention. Was admitted under general surgery services for management of ileus versus SBO. Hospitalist consult for medical management. Ileus versus SBO Plan as per General surgery ct abd shows -cholelithasis ,patient has elevated lft and alk phos hida-negative no bm yet surgery following Hypoxia-in ed i time sats 88 % on Ra Unclear etiology-possible atelactasis related CXR showing low lung volumes -atelactasis ,pulmonary vascular congestion, but similar to previous Pt denies SOB or difficulty breathing,Has chronic cough unclear if worse than baseline. overnight sats 94-97% ,taken off oxygen sats 96% roomair , bnp 39 respiratory viral panel-negative . plan: Incentive spirometry, chest physiotherapy oob Hx of ESBL E coli UTI UA with moderate leukocyte esterase, but only 11-20 wbc's, 4+ bacteria ?Patient with chronic UTIs, likely colonized Patient given empiric meropenem in the ED. urine culture mixed talia, will add repeat urine culture . added repeat urine cultures Id eval-continue zosyn Hy,pothyroidism Last TSH 49.85-improving to 37, free t4 also bodelrine low. adjusted levothyroxine to 112.5 mcg ,moniter tsh in1 week. Hypertension Continue home meds Mood disorder Continue home meds Quality Stroke Does the patient have a stroke diagnosis?: No VTE Prior VTE?: No VTE Risk Level:: Surgical - moderate VTE Device Contraindication: N/A - Device Ordered VTE Drug Contraindication: Treatment Not Indicated
--- NOTE | 2024-03-15 17:13 | PC.NURSE ---
A person Patricia Hughes called from [facility]? [phone]. She is not on the contact list for this patient.
--- NOTE | 2024-03-15 18:08 | PC.NURSE ---
Pt voided x 2
[2024-03-15 19:25] VITALS: BP 157/76; PULSE 59; RESP 18; TEMP 36.4; O2SAT 97
[2024-03-15] MEDS: traZODone HCL 50 MG TABLET PO (20:15)
[2024-03-15] MEDS: OLANZapine 7.5 MG TABLET 15 MG PO (20:16)
[2024-03-15] MEDS: carBAMazepine 200 MG TABLET 400 MG PO (20:16)
--- NOTE | 2024-03-15 21:47 | W.PM.IDCN ---
History of Present Illness Data of Consult Service Date: 03/14/24 Requesting physician: Leodan Patel Primary Care Provider: Sher Patrick MD HPI Reason for consult: pyuria She presents with abdominal distention,hematuria and fever to 100.6 Urine shows multiple organisms. She is not eating much. Review of Systems Review of Systems: Yes Unobtainable due to mental condition PMFSH Past Medical History Medical History Post-surgical hypothyroidism History of ESBL E. coli infection Toxic multinodular goiter Toxic multinodular goiter Vitamin D deficiency Hyperthyroidism Multinodular thyroid Colon cancer Lung mass Developmental delay, mild Arthritis Family History Family History Father No problems noted. Mother Medical history unknown Family history: reviewed and not pertinent Surgical History Surgical History Hx of total thyroidectomy History of biopsy Hx of colonic polyps Hx of colonoscopy Social History Social History Household Members: Other Household Members Other:: gr home Unable to assess alcohol history related to: Unknown Alcohol intake: never Patient Tobacco Use Status: Never used Tobacco Smoked in Last 30 Days: No Use of substances other than those prescribed or required for medical reasons: No Currently Displaying Signs/Symptoms of Drug Intoxication Withdrawal: No Advance Directives: Yes Advance Directives on File: Yes Advance Directives Date on File: 01/05/21 Do you have a plan to hurt others: No Plan service: No Current occupational status: disabled Current occupation: right handed Meds Allergies Allergy/AdvReac Type Severity Reaction Status Date / Time adhesive tape Allergy Intermediate itching Verified 03/12/24 19:59 and skin redness latex Allergy Intermediate skin rash Verified 03/12/24 19:59 and itching Seasonal Allergies Allergy Itching Verified 03/12/24 19:59 weed pollen Allergy stuffy nose Verified 03/12/24 19:59 DUST Allergy Unknown ITCHY/WATERY Uncoded 11/28/23 14:45 EYES surgical paper tape Allergy Unknown rash Uncoded 11/28/23 14:45 Tide Allergy Unknown rash Uncoded 11/28/23 14:45 Active Medications: Current Medications Aripiprazole (Aripiprazole 5 Mg Tablet) 5 mg PO DAILY [facility] Last Admin: 03/15/24 08:22 Dose: 5 mg Aspirin (Aspirin Enteric Coated 81 Mg Tablet.Dr) 81 mg PO DAILY [facility] Last Admin: 03/15/24 08:22 Dose: 81 mg Carbamazepine (Carbamazepine 200 Mg Tablet) 200 mg PO DAILY [facility] Last Admin: 03/15/24 08:22 Dose: 200 mg Carbamazepine (Carbamazepine 200 Mg Tablet) 400 mg PO BEDTIME [facility] Last Admin: 03/15/24 20:16 Dose: 400 mg Hydromorphone HCl (Hydromorphone Hcl 0.5 Mg/0.5 Ml Syringe) 0.5 mg IVPUSH Q3H PRN; Protocol PRN Reason: Pain, Severe (Pain Scale 7-10) Piperacillin Sod/Tazobactam (Sod 3.375 gm/ Sodium Chloride) 50 mls @ 100 mls/hr IV Q6H [facility] Last Infusion: 03/15/24 20:25 Dose: Infused Levothyroxine Sodium (Levothyroxine Sodium 100 Mcg Tablet) 112.5 mcg PO DAILY@0630 [facility] Last Admin: 03/15/24 06:03 Dose: Not Given Loratadine (Loratadine 10 Mg Tablet) 10 mg PO DAILY [facility] Last Admin: 03/15/24 08:34 Dose: 10 mg Melatonin (Melatonin 3 Mg Tablet) 6 mg PO BEDTIME PRN PRN Reason: Insomnia Last Admin: 03/14/24 20:38 Dose: 6 mg Methenamine Hippurate (Methenamine Hippurate 1 Gm Tablet) 1 gm PO BID [facility] Last Admin: 03/15/24 20:16 Dose: 1 gm Olanzapine (Olanzapine 7.5 Mg Tablet) 15 mg PO BEDTIME [facility] Last Admin: 03/15/24 20:16 Dose: 15 mg Ondansetron HCl (Ondansetron Hcl 4 Mg/2 Ml Vial) 4 mg IVPUSH QID PRN PRN Reason: Nausea Sodium Chloride (0.9 % Sodium Chloride Flush 3 Ml Syringe) 3 ml IVFLUSH QSHIFT [facility] Last Admin: 03/15/24 20:20 Dose: 3 ml Sodium Chloride (0.9 % Sodium Chloride Flush 3 Ml Syringe) 3 ml IVFLUSH QSHIFT [facility] Last Admin: 03/15/24 15:19 Dose: Not Given Trazodone HCl (Trazodone Hcl 50 Mg Tablet) 50 mg PO BEDTIME [facility] Last Admin: 03/15/24 20:15 Dose: 50 mg Home Medications ?Medication ?Instructions ?Recorded ?Confirmed ?Last Taken ?Type acetaminophen 500 mg tablet 500 mg PO Q4H PRN pain/fever 01/05/21 03/13/24 Unknown History aspirin 81 mg tablet,delayed 81 mg PO DAILY 01/05/21 03/13/24 01/24/23 08:00 History release carbamazepine 200 mg tablet 200 mg PO DAILY 01/05/21 03/13/24 01/24/23 08:00 History carbamazepine 200 mg tablet 400 mg PO BEDTIME 01/05/21 03/13/24 01/23/23 20:00 History loratadine 10 mg tablet 10 mg PO DAILY 01/05/21 03/13/24 01/24/23 08:00 History multivitamin 1 tab PO DAILY 01/05/21 03/13/24 01/23/23 08:00 History nystatin 100,000 unit/gram topical 1 appl topical BID PRN Rash 01/05/21 03/13/24 Unknown History powder ibuprofen 400 mg tablet 400 mg PO TID PRN Pain 01/24/23 03/13/24 Unknown History methyl salicylate 30 %-menthol 10 1 appl topical BID 01/24/23 03/13/24 01/24/23 08:00 History % topical cream (Icy Hot) triamcinolone acetonide 0.1 % 1 appl topical BID PRN Skin 01/24/23 03/13/24 Unknown History topical ointment Irritation dextromethorphan-guaifenesin 10 10 ml PO QID PRN Cough 05/10/23 03/13/24 Unknown History mg-200 mg/5 mL oral liquid melatonin 10 mg tablet 10 mg PO BEDTIME 05/10/23 03/13/24 Unknown History ferrous sulfate 325 mg (65 mg 325 mg PO MOWEFR 10/02/23 03/13/24 Unknown History iron) tablet aripiprazole 5 mg tablet (Abilify) 5 mg PO DAILY 03/13/24 03/13/24 Unknown History ascorbic acid (vitamin C) 500 mg 500 mg PO BID 03/13/24 03/13/24 Unknown History tablet (Vitamin C) betamethasone dipropionate 0.05 % 1 appl topical BID PRN Dry areas 03/13/24 03/13/24 Unknown History topical ointment on hand levothyroxine 100 mcg tablet 100 mcg PO DAILY 03/13/24 03/13/24 Unknown History methenamine hippurate 1 gram tablet 1 g PO BID 03/13/24 03/13/24 Unknown History olanzapine 15 mg tablet 15 mg PO BEDTIME 03/13/24 03/13/24 Unknown History polyethylene glycol 3350 17 17 g PO DAILY PRN Constipation 03/13/24 03/13/24 Unknown History gram/dose oral powder trazodone 50 mg tablet 50 mg PO BEDTIME 03/13/24 03/13/24 Unknown History vibegron 75 mg tablet (Gemtesa) 75 mg PO DAILY 03/13/24 03/13/24 Unknown History zinc oxide-vitamin B5-vit E 11.3% 1 appl topical BID Rash 03/13/24 03/13/24 Unknown History topical cream (Balmex Adult Care) Physical Exam Vital Signs: Vital Signs: Last Vital Signs Temp 97.5 F 03/15/24 19:25 Pulse 59 03/15/24 19:25 Resp 18 03/15/24 19:25 BP 157/76 H 03/15/24 19:25 Pulse Ox 97 03/15/24 19:25 O2 Del Method Room Air 03/15/24 19:25 O2 Flow Rate 2.0 03/14/24 08:00 BMI result Body Mass Index 24.9 Psych: Other: cognitive challenges Results Labs 03/14/24 05:58 03/14/24 05:58 Microbiology Microbiology Results: Microbiology 03/14/24 18:36 Urine Catheterized - Davidson Catheter Urine Culture - Preliminary No growth to date. 03/13/24 05:51 Blood - Arterial Blood Culture - Preliminary No growth after 48 hours. 03/13/24 05:51 Blood - Arterial Blood Culture - Preliminary No growth after 48 hours. 03/13/24 05:51 Urine clean catch - Urine elder top Urine Culture - Final Assessment and Plan (1) Ileus: Status: Acute (2) Chronic UTI: Status: Acute Plan She has UTI with hematuria and fever. There is no specific organism Would continue Zosyn due to concern over resistant organisms. Po Augmentin for 10 days on discharge. Continue methenamine.
[2024-03-16] MEDS: Piperacillin Sodium/Tazobactam 3.375 GM in 0.9 % Sodium Chloride 50 ML IV ×2 (01:33→08:22)
[2024-03-16] MEDS: 0.9 % Sodium Chloride Flush 3 ML SYRINGE IVFLUSH ×4 (01:35→20:22)
[2024-03-16 03:24] VITALS: BP 125/58; PULSE 65; RESP 18; TEMP 36.8; O2SAT 94
[2024-03-16] MEDS: Levothyroxine Sodium 112 MCG TABLET PO (05:51)
[2024-03-16 07:39] VITALS: BP 137/65; PULSE 57; RESP 16; TEMP 36.7; O2SAT 95
[2024-03-16] MEDS: Aspirin Enteric Coated 81 MG TABLET.DR PO (08:22)
[2024-03-16] MEDS: Loratadine 10 MG TABLET PO (08:22)
[2024-03-16] MEDS: ARIPiprazole 5 MG TABLET PO (08:22)
[2024-03-16] MEDS: Methenamine Hippurate 1 GM TABLET PO ×2 (08:22→20:19)
[2024-03-16] MEDS: carBAMazepine 200 MG TABLET PO (08:22)
--- NOTE | 2024-03-16 09:29 | P.PNGS_ITS ---
Subjective Subjective Date of Service: 03/16/24 Interval history: States she feels well Denies abdominal pain Denies nausea or vomiting Tolerating regular diet Denies flatus or BMs Physical Exam 2 Vital Signs: Vital Signs: Last Vital Signs Temp 98.0 F 03/16/24 07:39 Pulse 57 03/16/24 07:39 Resp 16 03/16/24 07:39 BP 137/65 03/16/24 07:39 Pulse Ox 95 03/16/24 07:39 O2 Del Method Room Air 03/16/24 07:39 O2 Flow Rate 2.0 03/14/24 08:00 BMI result Body Mass Index 24.9 Const: Other: Sitting on recliner General: comfortable and no acute distress Resp: Effort & Inspection: normal respiratory effort Cardio: Rate: regular rate GI: Other: Mildly distended Palpation (GI): Soft to palpation, nontender and no guarding Objective Data Active Medications Aripiprazole (Aripiprazole 5 Mg Tablet) 5 mg PO DAILY [facility] Last Admin: 03/16/24 08:22 Dose: 5 mg Documented By: DEBORA Aspirin (Aspirin Enteric Coated 81 Mg Tablet.) 81 mg PO DAILY [facility] Last Admin: 03/16/24 08:22 Dose: 81 mg Documented By: DEBORA Carbamazepine (Carbamazepine 200 Mg Tablet) 200 mg PO DAILY [facility] Last Admin: 03/16/24 08:22 Dose: 200 mg Documented By: DEBORA Carbamazepine (Carbamazepine 200 Mg Tablet) 400 mg PO BEDTIME [facility] Last Admin: 03/15/24 20:16 Dose: 400 mg Documented By: ISAIAH Hydromorphone HCl (Hydromorphone Hcl 0.5 Mg/0.5 Ml Syringe) 0.5 mg IVPUSH Q3H PRN; Protocol PRN Reason: Pain, Severe (Pain Scale 7-10) Piperacillin Sod/Tazobactam (Sod 3.375 gm/ Sodium Chloride) 50 mls @ 100 mls/hr IV Q6H [facility] Last Infusion: 03/16/24 09:19 Dose: Infused Documented By: DEBORA Levothyroxine Sodium (Levothyroxine Sodium 112 Mcg Tablet) 112 mcg PO 0630 [facility] Last Admin: 03/16/24 05:51 Dose: 112 mcg Documented By: TUMASY Loratadine (Loratadine 10 Mg Tablet) 10 mg PO DAILY [facility] Last Admin: 03/16/24 08:22 Dose: 10 mg Documented By: DEBORA Melatonin (Melatonin 3 Mg Tablet) 6 mg PO BEDTIME PRN PRN Reason: Insomnia Last Admin: 03/14/24 20:38 Dose: 6 mg Documented By: LEROY Methenamine Hippurate (Methenamine Hippurate 1 Gm Tablet) 1 gm PO BID [facility] Last Admin: 03/16/24 08:22 Dose: 1 gm Documented By: DEBORA Olanzapine (Olanzapine 7.5 Mg Tablet) 15 mg PO BEDTIME [facility] Last Admin: 03/15/24 20:16 Dose: 15 mg Documented By: ISAIAH Ondansetron HCl (Ondansetron Hcl 4 Mg/2 Ml Vial) 4 mg IVPUSH QID PRN PRN Reason: Nausea Sodium Chloride (0.9 % Sodium Chloride Flush 3 Ml Syringe) 3 ml IVFLUSH QSORFT [facility] Last Admin: 03/15/24 20:20 Dose: 3 ml Documented By: ISAIAH Sodium Chloride (0.9 % Sodium Chloride Flush 3 Ml Syringe) 3 ml IVFLUSH QSORFT [facility] Last Admin: 03/16/24 08:22 Dose: 3 ml Documented By: DEBORA Trazodone HCl (Trazodone Hcl 50 Mg Tablet) 50 mg PO BEDTIME [facility] Last Admin: 03/15/24 20:15 Dose: 50 mg Documented By: ISAIAH Labs 03/14/24 05:58 03/14/24 05:58 Microbiology Microbiology Results: Microbiology 03/14/24 18:36 Urine Culture - Preliminary Urine Catheterized - Davidson Catheter No growth to date. 03/13/24 05:51 Blood Culture - Preliminary Blood - Arterial No growth after 48 hours. 03/13/24 05:51 Blood Culture - Preliminary Blood - Arterial No growth after 48 hours. Procedures Date of Service Date of Service: 03/16/24 Progress Note: A&P Assessment and plan (1) Small bowel obstruction: Status: Acute Assessment and Plan: No nausea or vomiting since NG tube had been removed Tolerating diet Abdomen soft and benign Denies flatus We will continue to monitor Await return of full GI functions Looks well overall Time Spent With Patient Time: Total time managing care of this patient today ____ minutes. Quality Stroke Does the patient have a stroke diagnosis?: No VTE Prior VTE?: No VTE Risk Level:: Surgical - moderate VTE Device Contraindication: N/A - Device Ordered VTE Drug Contraindication: Treatment Not Indicated
[2024-03-16] MEDS: Tamsulosin HCL 0.4 MG CAPSULE PO (12:10)
--- NOTE | 2024-03-16 12:30 | HO.PM.IMPN ---
Subjective Subjective Date of Service: 03/16/24 Interval History: Ielus ? Review of Systems denies any new c/o no bm yet Physical Exam Vital Signs: Vital Signs: Last Vital Signs Temp 98.0 F 03/16/24 07:39 Pulse 57 03/16/24 07:39 Resp 16 03/16/24 07:39 BP 137/65 03/16/24 07:39 Pulse Ox 95 03/16/24 07:39 O2 Del Method Room Air 03/16/24 07:39 O2 Flow Rate 2.0 03/14/24 08:00 BMI result Body Mass Index 24.9 Appearance: Alert.? Oriented at baseline. cvs: rrr, [id number] , no murmur res: clear to auscultation ,no rhonchii or wheezing abd: no rebound or guarding ,nt, bs present. ext pulses present , no cyanosis. neuro: axo3 , nonfocal. Objective Data Active Medications Aripiprazole (Aripiprazole 5 Mg Tablet) 5 mg PO DAILY [facility] Last Admin: 03/16/24 08:22 Dose: 5 mg Documented By: DEBORA Aspirin (Aspirin Enteric Coated 81 Mg Tablet.) 81 mg PO DAILY [facility] Last Admin: 03/16/24 08:22 Dose: 81 mg Documented By: DEBORA Carbamazepine (Carbamazepine 200 Mg Tablet) 200 mg PO DAILY [facility] Last Admin: 03/16/24 08:22 Dose: 200 mg Documented By: DEBORA Carbamazepine (Carbamazepine 200 Mg Tablet) 400 mg PO BEDTIME [facility] Last Admin: 03/15/24 20:16 Dose: 400 mg Documented By: ISAIAH Hydromorphone HCl (Hydromorphone Hcl 0.5 Mg/0.5 Ml Syringe) 0.5 mg IVPUSH Q3H PRN; Protocol PRN Reason: Pain, Severe (Pain Scale 7-10) Levothyroxine Sodium (Levothyroxine Sodium 112 Mcg Tablet) 112 mcg PO 0630 [facility] Last Admin: 03/16/24 05:51 Dose: 112 mcg Documented By: PARMJIT Loratadine (Loratadine 10 Mg Tablet) 10 mg PO DAILY [facility] Last Admin: 03/16/24 08:22 Dose: 10 mg Documented By: DEBORA Melatonin (Melatonin 3 Mg Tablet) 6 mg PO BEDTIME PRN PRN Reason: Insomnia Last Admin: 03/14/24 20:38 Dose: 6 mg Documented By: LEROY Methenamine Hippurate (Methenamine Hippurate 1 Gm Tablet) 1 gm PO BID [facility] Last Admin: 03/16/24 08:22 Dose: 1 gm Documented By: DEBORA Olanzapine (Olanzapine 7.5 Mg Tablet) 15 mg PO BEDTIME [facility] Last Admin: 03/15/24 20:16 Dose: 15 mg Documented By: ISAIAH Ondansetron HCl (Ondansetron Hcl 4 Mg/2 Ml Vial) 4 mg IVPUSH QID PRN PRN Reason: Nausea Sodium Chloride (0.9 % Sodium Chloride Flush 3 Ml Syringe) 3 ml IVFLUSH QSHIFT [facility] Last Admin: 03/15/24 20:20 Dose: 3 ml Documented By: ISAIAH Sodium Chloride (0.9 % Sodium Chloride Flush 3 Ml Syringe) 3 ml IVFLUSH QSHIFT [facility] Last Admin: 03/16/24 08:22 Dose: 3 ml Documented By: DEBORA Tamsulosin HCl (Tamsulosin Hcl 0.4 Mg Capsule) 0.4 mg PO DAILY [facility] Last Admin: 03/16/24 12:10 Dose: 0.4 mg Documented By: DEBORA Trazodone HCl (Trazodone Hcl 50 Mg Tablet) 50 mg PO BEDTIME [facility] Last Admin: 03/15/24 20:15 Dose: 50 mg Documented By: ISAIAH Labs 03/14/24 05:58 03/14/24 05:58 Microbiology Microbiology Results: Microbiology 03/14/24 18:36 Urine Culture - Preliminary Urine Catheterized - Davidson Catheter No growth to date. Assessment and Plan (1) Partial small bowel obstruction: Status: Resolved (2) Bladder outlet obstruction: Status: Resolved (3) History of ESBL E. coli infection: Status: Inactive Plan 68-year-old female with a PMH significant for toxic multinodular goiter, hypothyroidism, hx of colon cancer s/p colectomy with anastomosis, hx of ESBL E coli UTI, lung mass, and developmental delay who initially presented to the ED yesterday on 03/12 from [place] [facility] for evaluation of abdominal pain and distention. Was admitted under general surgery services for management of ileus versus SBO. Hospitalist consult for medical management. Ileus versus SBO Plan as per General surgery ct abd shows -cholelithasis ,patient has elevated lft and alk phos hida-negative no bm yet surgery following Hypoxia-in ed i time sats 88 % on Ra Unclear etiology-possible atelactasis related CXR showing low lung volumes -atelactasis ,pulmonary vascular congestion, but similar to previous Pt denies SOB or difficulty breathing,Has chronic cough unclear if worse than baseline. overnight sats 94-97% ,taken off oxygen sats 96% roomair , bnp 39 respiratory viral panel-negative . plan: hypoxia improved Incentive spirometry, chest physiotherapy oob Hx of ESBL E coli UTI UA with moderate leukocyte esterase, but only 11-20 wbc's, 4+ bacteria ?Patient with chronic UTIs, likely colonized Patient given empiric meropenem in the ED. urine culture mixed talia, will add repeat urine culture -no specific organism seen by id -rec augmentin for 10 days. Hy,pothyroidism Last TSH 49.85-improving to 37, free t4 also bodelrine low. adjusted levothyroxine to 112.5 mcg ,moniter tsh in1 week. Hypertension Continue home meds Mood disorder Continue home meds Quality Stroke Does the patient have a stroke diagnosis?: No VTE Prior VTE?: No VTE Risk Level:: Surgical - moderate VTE Device Contraindication: N/A - Device Ordered VTE Drug Contraindication: Treatment Not Indicated
[2024-03-16] MEDS: Amoxicillin/Potassium Clav 875 MG TABLET PO (13:03)
[2024-03-16 15:57] VITALS: BP 155/74; PULSE 55; RESP 18; TEMP 36.9; O2SAT 96
[2024-03-16 20:00] VITALS: BP 158/73; PULSE 51; RESP 16; TEMP 36.6; O2SAT 98
[2024-03-16] MEDS: traZODone HCL 50 MG TABLET PO (20:20)
[2024-03-16] MEDS: Melatonin 3 MG TABLET 6 MG PO (20:21)
[2024-03-16] MEDS: OLANZapine 7.5 MG TABLET 15 MG PO (20:21)
[2024-03-16] MEDS: carBAMazepine 200 MG TABLET 400 MG PO (20:23)
[2024-03-17] MEDS: Amoxicillin/Potassium Clav 875 MG TABLET PO ×3 (02:20→23:47)
[2024-03-17 04:00] VITALS: BP 134/65; PULSE 55; RESP 16; TEMP 36.4; O2SAT 96
[2024-03-17] MEDS: Levothyroxine Sodium 112 MCG TABLET PO (05:01)
[2024-03-17 07:12] VITALS: BP 125/63; PULSE 52; RESP 14; TEMP 36; O2SAT 97
[2024-03-17] MEDS: carBAMazepine 200 MG TABLET PO (08:15)
[2024-03-17] MEDS: Loratadine 10 MG TABLET PO (08:15)
[2024-03-17] MEDS: Tamsulosin HCL 0.4 MG CAPSULE PO (08:15)
[2024-03-17] MEDS: Methenamine Hippurate 1 GM TABLET PO ×2 (08:15→20:31)
[2024-03-17] MEDS: ARIPiprazole 5 MG TABLET PO (08:15)
[2024-03-17] MEDS: 0.9 % Sodium Chloride Flush 3 ML SYRINGE IVFLUSH ×3 (08:15→20:32)
[2024-03-17] MEDS: Aspirin Enteric Coated 81 MG TABLET.DR PO (08:15)
--- NOTE | 2024-03-17 09:52 | PM.PNGS ---
Subjective Subjective Date of Service: 03/17/24 Interval history: No events reported Patient denies abdominal pain Tolerating regular diet Says she has passed flatus Small amount of bowel movement reported by nurse Physical Exam Vital Signs: Vital Signs: Last Vital Signs Temp 96.8 F 03/17/24 07:12 Pulse 52 03/17/24 07:12 Resp 14 03/17/24 07:12 BP 125/63 03/17/24 07:12 Pulse Ox 97 03/17/24 07:12 O2 Del Method Room Air 03/17/24 07:12 O2 Flow Rate 2.0 03/14/24 08:00 BMI result Body Mass Index 24.9 Const: General: comfortable and no acute distress Resp: Effort & Inspection: normal respiratory effort Cardio: Rate: regular rate GI: Other: Obese abdomen Palpation (GI): Soft to palpation, not firm, nontender and no guarding Objective Data Active Medications Amoxicillin/Clavulanate Potassium (Amoxicillin/Potassium Clav 875 Mg Tablet) 875 mg PO Q12H [facility] Last Admin: 03/17/24 02:20 Dose: 875 mg Documented By: SEVERIANO Aripiprazole (Aripiprazole 5 Mg Tablet) 5 mg PO DAILY [facility] Last Admin: 03/17/24 08:15 Dose: 5 mg Documented By: DEBORA Aspirin (Aspirin Enteric Coated 81 Mg Tablet.) 81 mg PO DAILY [facility] Last Admin: 03/17/24 08:15 Dose: 81 mg Documented By: DEBORA Carbamazepine (Carbamazepine 200 Mg Tablet) 200 mg PO DAILY [facility] Last Admin: 03/17/24 08:15 Dose: 200 mg Documented By: DEBORA Carbamazepine (Carbamazepine 200 Mg Tablet) 400 mg PO BEDTIME [facility] Last Admin: 03/16/24 20:23 Dose: 400 mg Documented By: SEVERIANO Hydromorphone HCl (Hydromorphone Hcl 0.5 Mg/0.5 Ml Syringe) 0.5 mg IVPUSH Q3H PRN; Protocol PRN Reason: Pain, Severe (Pain Scale 7-10) Levothyroxine Sodium (Levothyroxine Sodium 112 Mcg Tablet) 112 mcg PO 0630 [facility] Last Admin: 03/17/24 05:01 Dose: 112 mcg Documented By: SEVERIANO Loratadine (Loratadine 10 Mg Tablet) 10 mg PO DAILY [facility] Last Admin: 03/17/24 08:15 Dose: 10 mg Documented By: DEBORA Melatonin (Melatonin 3 Mg Tablet) 6 mg PO BEDTIME PRN PRN Reason: Insomnia Last Admin: 03/16/24 20:21 Dose: 6 mg Documented By: SEVERIANO Methenamine Hippurate (Methenamine Hippurate 1 Gm Tablet) 1 gm PO BID [facility] Last Admin: 03/17/24 08:15 Dose: 1 gm Documented By: DEBORA Olanzapine (Olanzapine 7.5 Mg Tablet) 15 mg PO BEDTIME [facility] Last Admin: 03/16/24 20:21 Dose: 15 mg Documented By: SEVERIANO Ondansetron HCl (Ondansetron Hcl 4 Mg/2 Ml Vial) 4 mg IVPUSH QID PRN PRN Reason: Nausea Sodium Chloride (0.9 % Sodium Chloride Flush 3 Ml Syringe) 3 ml IVFLUSH QSHIFT [facility] Last Admin: 03/17/24 08:15 Dose: 3 ml Documented By: DEBORA Tamsulosin HCl (Tamsulosin Hcl 0.4 Mg Capsule) 0.4 mg PO DAILY [facility] Last Admin: 03/17/24 08:15 Dose: 0.4 mg Documented By: DEBORA Trazodone HCl (Trazodone Hcl 50 Mg Tablet) 50 mg PO BEDTIME [facility] Last Admin: 03/16/24 20:20 Dose: 50 mg Documented By: SEVERIANO Labs 03/14/24 05:58 03/14/24 05:58 Microbiology Microbiology Results: Microbiology 03/14/24 18:36 Urine Culture - Final Urine Catheterized - Davidson Catheter No growth. Procedures Date of Service Date of Service: 03/17/24 Progress Note: A&P Assessment and plan (1) Small bowel obstruction: Status: Acute Assessment and Plan: Symptoms appear resolved Tolerating diet Had BMs and flatus No vomiting Abdomen soft, nontender Patient denies a pain Appears ready to be discharged home Patient says she is okay to go home today Time Spent With Patient Time: Total time managing care of this patient today ____ minutes. Quality Stroke Does the patient have a stroke diagnosis?: No VTE Prior VTE?: No VTE Risk Level:: Surgical - moderate VTE Device Contraindication: N/A - Device Ordered VTE Drug Contraindication: Treatment Not Indicated
--- NOTE | 2024-03-17 11:04 | PM.EVENT ---
Event Note Date of Service: 03/17/24 Event Note: pt was for discharge however, the [facility]ou[facility] informed the nurse that they do not take back patients on the weekend pt will stay in the hospital abd remains soft Colace added to meds Time Spent With Patient Time: Total time managing care of this patient today ____ minutes.
[2024-03-17] MEDS: Docusate Sodium 100 MG CAPSULE PO ×2 (11:46→20:31)
--- NOTE | 2024-03-17 12:01 | MHC.CM.PN ---
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
--- NOTE | 2024-03-17 12:03 | P.PNIM_ITS ---
Subjective Subjective Date of Service: 03/17/24 Interval History: sbo vs Ielus Review of Systems passing bowels and flattus no new c/o Physical Exam 2 Vital Signs: Vital Signs: Last Vital Signs Temp 96.8 F 03/17/24 07:12 Pulse 52 03/17/24 07:12 Resp 14 03/17/24 07:12 BP 125/63 03/17/24 07:12 Pulse Ox 97 03/17/24 07:12 O2 Del Method Room Air 03/17/24 07:12 O2 Flow Rate 2.0 03/14/24 08:00 BMI result Body Mass Index 24.9 Appearance: Alert.? Oriented at baseline. cvs: rrr, [id number] , no murmur res: clear to auscultation ,no rhonchii or wheezing abd: no rebound or guarding ,nt, bs present. ext pulses present , no cyanosis. neuro: axo3 , nonfocal. Objective Data Active Medications Amoxicillin/Clavulanate Potassium (Amoxicillin/Potassium Clav 875 Mg Tablet) 875 mg PO Q12H [facility] Last Admin: 03/17/24 11:46 Dose: 875 mg Documented By: DEBORA Aripiprazole (Aripiprazole 5 Mg Tablet) 5 mg PO DAILY [facility] Last Admin: 03/17/24 08:15 Dose: 5 mg Documented By: DEBORA Aspirin (Aspirin Enteric Coated 81 Mg Tablet.) 81 mg PO DAILY [facility] Last Admin: 03/17/24 08:15 Dose: 81 mg Documented By: DEBORA Carbamazepine (Carbamazepine 200 Mg Tablet) 200 mg PO DAILY [facility] Last Admin: 03/17/24 08:15 Dose: 200 mg Documented By: DEBORA Carbamazepine (Carbamazepine 200 Mg Tablet) 400 mg PO BEDTIME [facility] Last Admin: 03/16/24 20:23 Dose: 400 mg Documented By: SEVERIANO Docusate Sodium (Docusate Sodium 100 Mg Capsule) 100 mg PO BID [facility] Last Admin: 03/17/24 11:46 Dose: 100 mg Documented By: DEBORA Hydromorphone HCl (Hydromorphone Hcl 0.5 Mg/0.5 Ml Syringe) 0.5 mg IVPUSH Q3H PRN; Protocol PRN Reason: Pain, Severe (Pain Scale 7-10) Levothyroxine Sodium (Levothyroxine Sodium 112 Mcg Tablet) 112 mcg PO 0630 [facility] Last Admin: 03/17/24 05:01 Dose: 112 mcg Documented By: SEVERIANO Loratadine (Loratadine 10 Mg Tablet) 10 mg PO DAILY [facility] Last Admin: 03/17/24 08:15 Dose: 10 mg Documented By: DEBORA Melatonin (Melatonin 3 Mg Tablet) 6 mg PO BEDTIME PRN PRN Reason: Insomnia Last Admin: 03/16/24 20:21 Dose: 6 mg Documented By: SEVERIANO Methenamine Hippurate (Methenamine Hippurate 1 Gm Tablet) 1 gm PO BID [facility] Last Admin: 03/17/24 08:15 Dose: 1 gm Documented By: DEBORA Olanzapine (Olanzapine 7.5 Mg Tablet) 15 mg PO BEDTIME [facility] Last Admin: 03/16/24 20:21 Dose: 15 mg Documented By: SEVERIANO Ondansetron HCl (Ondansetron Hcl 4 Mg/2 Ml Vial) 4 mg IVPUSH QID PRN PRN Reason: Nausea Sodium Chloride (0.9 % Sodium Chloride Flush 3 Ml Syringe) 3 ml IVFLUSH QSHIFT [facility] Last Admin: 03/17/24 08:15 Dose: 3 ml Documented By: DEBORA Tamsulosin HCl (Tamsulosin Hcl 0.4 Mg Capsule) 0.4 mg PO DAILY [facility] Last Admin: 03/17/24 08:15 Dose: 0.4 mg Documented By: DEBORA Trazodone HCl (Trazodone Hcl 50 Mg Tablet) 50 mg PO BEDTIME [facility] Last Admin: 03/16/24 20:20 Dose: 50 mg Documented By: SEVERIANO Labs 03/14/24 05:58 03/14/24 05:58 Microbiology Microbiology Results: Microbiology 03/14/24 18:36 Urine Culture - Final Urine Catheterized - Davidson Catheter No growth. Assessment and Plan (1) Small bowel obstruction: Status: Acute Plan 68-year-old female with a PMH significant for toxic multinodular goiter, hypothyroidism, hx of colon cancer s/p colectomy with anastomosis, hx of ESBL E coli UTI, lung mass, and developmental delay who initially [facility] for evaluation of abdominal pain and distention. Was admitted under general surgery services for management of ileus versus SBO. Hospitalist consult for medical management. Ileus versus SBO Plan as per General surgery ct abd shows -cholelithasis ,patient has elevated lft and alk phos hida-negative no bm yet surgery following-no acute cholecysitis ,? ch cholecystitis lft's improving, moniter outpatient Hypoxia-in ed i time sats 88 % on Ra Unclear etiology-possible atelactasis related CXR showing low lung volumes -atelactasis ,pulmonary vascular congestion, but similar to previous Pt denies SOB or difficulty breathing,Has chronic cough unclear if worse than baseline. overnight sats 94-97% ,taken off oxygen sats 96% roomair , bnp 39 respiratory viral panel-negative . plan: hypoxia improved Incentive spirometry, chest physiotherapy oob Hx of ESBL E coli UTI UA with moderate leukocyte esterase, but only 11-20 wbc's, 4+ bacteria ?Patient with chronic UTIs, likely colonized Patient given empiric meropenem in the ED. urine culture mixed talia, will add repeat urine culture -no specific organism seen by id -rec augmentin for 10 days-augmentin started on 03/16/24. Hy,pothyroidism Last TSH 49.85-improving to 37, free t4 also bodelrine low. adjusted levothyroxine to 112.5 mcg ,moniter tsh in1 week. Hypertension Continue home meds Mood disorder Continue home meds Quality Stroke Does the patient have a stroke diagnosis?: No VTE Prior VTE?: No VTE Risk Level:: Surgical - moderate VTE Device Contraindication: N/A - Device Ordered VTE Drug Contraindication: Treatment Not Indicated
[2024-03-17 15:18] VITALS: BP 140/71; PULSE 58; RESP 18; TEMP 37; O2SAT 94
[2024-03-17 20:00] VITALS: BP 135/64; PULSE 64; RESP 18; TEMP 36.6; O2SAT 93
[2024-03-17] MEDS: OLANZapine 7.5 MG TABLET 15 MG PO (20:31)
[2024-03-17] MEDS: traZODone HCL 50 MG TABLET PO (20:31)
[2024-03-17] MEDS: carBAMazepine 200 MG TABLET 400 MG PO (20:31)
[2024-03-18 03:43] VITALS: BP 137/63; PULSE 61; RESP 16; TEMP 37.3; O2SAT 93
[2024-03-18] MEDS: Levothyroxine Sodium 112 MCG TABLET PO (05:50)
[2024-03-18 07:06] VITALS: BP 122/58; PULSE 54; RESP 18; TEMP 36.6; O2SAT 96
--- NOTE | 2024-03-18 08:19 | PM.DS ---
DS: Providers Provider Date of Service: 03/18/24 Date of admission: 03/13/24 09:35 Date of discharge: 03/18/24 Primary care physician: Sher Patrick MD Attending physician on admission: Leodan Patel Consults: 03/13/24 09:12 Consult to Hospitalist Routine Comment: Consulting Provider: Hospitalist Reason For Exam: Medical management, small-bowel obstruction 03/14/24 15:24 Consult to Infectious Diseases Routine Consulting Provider: [facility] Reason for consultation: question enteroccocal uti Has provider been notified: No Attending physician on discharge: Leodan Patel DS: Diagnosis Discharge Diagnosis (1) Small bowel obstruction: Status: Acute DS: Summary Hospital Course Hospital Course: HPI AT ADMISSION: Kirsten Ronquillo is a 68 year old female presenting to the emergency department with reports of abdominal pain. She has a resident of a penitentiary and presents with a member of the staff from the penitentiary. She is reported to have abdominal distention along with the abdominal pain but denied nausea or vomiting. There has also been no history of diarrhea or constipation. She has a prior history of colon cancer surgery remotely, and information regarding the surgery is not available to time of this dictation. She apparently has had multiple abdominal surgeries but it is unclear whether she has had prior episodes of bowel obstructions. In the emergency department a CT abdomen and pelvis revealed multiple distended fluid-filled loops of small and large bowel without transition point suggestive of ileus. Retained stool was noted throughout the colon. Bilateral hydroureter and bladder distention is also identified. A nasogastric tube and Davidson catheter was inserted in the emergency department. HOSPITAL COURSE: Patient was admitted to the surgical service for further treatment of the ileus. Nasogastric tube is in place and this was continued for decompression. Hospitalist consultation for management of multiple medical comorbidities. Her ileus resolved. She pulled out her NGT on HD #1. She denied abdominal symptoms and felt hungry with a benign abd exam. She was advanced to clear liquids. She had elevated LFTs with gallstones and therefore HIDA scan was obtained by the medicine service which showed normal filling of liver, gallbladder, CBD, and small bowel but decreased EF % with CCK and was negative for acute cholecystitis, possible chronic cholecystitis. She remained asymptomatic. Her diet was advanced. She was passing flatus and was started on bowel regimen. She had some hypoxia at admission and CXR showing low lung volumes and atelactasis. BNP 39. Respiratory viral panel-negative. Incentive spirometry, chest physiotherapy and ambulation was encouraged. Hypoxia improved. She has a history of ESBL E coli UTI. UA with moderate leukocyte esterase, but only 11-20 wbc's, 4+ bacteria. Patient given empiric meropenem in the ED. Urine culture mixed talia, seen by ID who recommended Augmentin for 10 days, started 03/16/24. On the day of discharge, she was tolerating a solid diet without nausea or vomiting. Her abdomen was benign. She was passing flatus and moving her bowels. She was [facility]24 in stable condition. Hypothyroidism Last TSH 49.85-improving to 37, free t4 also boderline low. Levothyroxine adjusted to 112.5 mcg. Moniter TSH in 1 week. Status at Discharge Functional status at discharge: independent ambulation Time Attestation Discharge Coordination Time (in mins): 40 Quality: Safe Use of Opioids Does Pt have an Active Cancer Diagnosis on the Problem List?: No Quality: Stroke Does the patient have a stroke diagnosis?: No Physical Exam Vital Signs: Vital Signs: Last Vital Signs Temp 97.9 F 03/18/24 07:06 Pulse 54 03/18/24 07:06 Resp 18 03/18/24 07:06 BP 122/58 L 03/18/24 07:06 Pulse Ox 96 03/18/24 07:06 O2 Del Method Room Air 03/18/24 07:06 O2 Flow Rate 2.0 03/14/24 08:00 BMI result Body Mass Index 24.9 Const: General: comfortable, no acute distress and alert Resp: Effort & Inspection: normal respiratory effort GI: Inspection: No distended Palpation (GI): Soft to palpation and nontender Skin: General skin exam: no rashes or lesions noted Discharge Plan Discharge Anticipated Discharge Date/Time: 03/17/24 09:54 Patient Disposition: Home, Self-Care Discharge Diagnosis: small bowel obstruction Referrals: Sher Patrick MD [Primary Care Provider] - 1 Week Discharge Medications: New levothyroxine 112 mcg Tablet 112 mcg PO 0630 60 Days Qty: 60 0RF amoxicillin-pot clavulanate 875-125 mg tablet 1 tab PO BID Qty: 14 0RF docusate sodium 100 mg Capsule 100 mg PO BID PRN (Reason: constipation) Qty: 20 0RF tamsulosin 0.4 mg Capsule 0.4 mg PO DAILY Qty: 30 0RF polyethylene glycol 3350 [Miralax] 17 gram/dose powder 17 g PO DAILY PRN (Reason: constipation) Qty: 238 0RF Continued carbamazepine 200 mg tablet 200 mg PO DAILY carbamazepine 200 mg tablet 400 mg PO BEDTIME multivitamin Tablet 1 tab PO DAILY aspirin 81 mg Tablet,Delayed Release (Dr/Ec) 81 mg PO DAILY acetaminophen 500 mg Tablet 500 mg PO Q4H PRN (Reason: pain/fever) nystatin 100,000 unit/gram Powder 1 appl TOPICAL BID PRN (Reason: Rash) Rx Instructions: rash in skin folds loratadine 10 mg Tablet 10 mg PO DAILY triamcinolone acetonide 0.1 % ointment 1 appl topical BID PRN (Reason: Skin Irritation) ibuprofen 400 mg Tablet 400 mg PO TID PRN (Reason: Pain) Icy Hot 30-10 % Cream 1 appl TOPICAL BID Rx Instructions: to back and shoulders ferrous sulfate 325 mg (65 mg iron) Tablet 325 mg PO MOWEFR sennosides [Senna Lax] 8.6 mg Tablet 8.6 mg PO BEDTIME PRN (Reason: constipation) Qty: 30 0RF trazodone 50 mg tablet 50 mg PO BEDTIME olanzapine 15 mg tablet 15 mg PO BEDTIME betamethasone dipropionate 0.05 % ointment 1 appl topical BID PRN (Reason: Dry areas on hand) aripiprazole [Abilify] 5 mg Tablet 5 mg PO DAILY Gemtesa 75 mg tablet 75 mg PO DAILY methenamine hippurate 1 gram tablet 1 g PO BID ascorbic acid (vitamin C) [Vitamin C] 500 mg tablet 500 mg PO BID Balmex [facility] 11.3 % Cream 1 appl TOPICAL BID Rx Instructions: apply to rash, groin, and buttocks polyethylene glycol 3350 17 gram/dose powder 17 g PO DAILY PRN (Reason: Constipation) dextromethorphan-guaifenesin 10-200 mg/5 mL Liquid 10 ml PO QID PRN (Reason: Cough) melatonin 10 mg Tablet 10 mg PO BEDTIME Discontinued levothyroxine 100 mcg Tablet 100 mcg PO DAILY Discharge Orders: Discharge Order (Routine); Ordered 03/17/24 Ordered By: Sher Bashir Diet: Advance to usual diet Activity on Discharge: As tolerated Stand Alone Forms: Patient Portal Discharge page Print Language: Latvian Care Plan Goals: return to baseline health Health Concerns: chronic UTI bowel obstruction hypothyroidism Plan of Treatment: ok to return to penit[facility]iary added flomax for urinary retention-patient is urinating well, moniter pvr ,if needed conisder urology eval outpatient Augmentin for 7 more days Levothyroxine increased, repeat TSH 1 week Assessment: doing well Discharge Date/Time: 03/18/24 12:11
[2024-03-18] MEDS: Loratadine 10 MG TABLET PO (08:25)
[2024-03-18] MEDS: 0.9 % Sodium Chloride Flush 3 ML SYRINGE IVFLUSH (08:25)
[2024-03-18] MEDS: Methenamine Hippurate 1 GM TABLET PO (08:25)
[2024-03-18] MEDS: Aspirin Enteric Coated 81 MG TABLET.DR PO (08:25)
[2024-03-18] MEDS: Docusate Sodium 100 MG CAPSULE PO (08:25)
[2024-03-18] MEDS: Tamsulosin HCL 0.4 MG CAPSULE PO (08:25)
[2024-03-18] MEDS: ARIPiprazole 5 MG TABLET PO (08:31)
[2024-03-18] MEDS: carBAMazepine 200 MG TABLET PO (08:31)
--- NOTE | 2024-03-18 09:32 | MHC.CM.PN ---
Addendum entered by Ruby Mora 03/18/24 13:32: PER SURGICAL PA, PT CAN RESUME ACTIVITIES TOLERATED, WITH NO LIMITATIONS CM FAXED A LETTER STATING THIS TO PTS INTERNET DESIGNER, MEGAN, AT [phone] Addendum entered by Ruby Mora 03/18/24 11:41: MED FORMS SIGNED BY , GIVEN TO STAFF MEMBER DCS AND LABS FAXED TO [facility] RN STAFF MEMBER TO TRANSPORT Addendum entered by Ruby Mora 03/18/24 10:41: SENA SPOKE TO RN HEMO DIALYSIS, JOSE ALEJANDRO REGAN, WHO SAYS A STAFF MEMBER WILL BE COMING IN TO TRANSPORT PT AND BRING IN THE MED FORMS FOR THE HOSPITALIST TO SIGN SHE ALSO REQUESTED A LETTER FOR PT TO BE ABLE TO RETURN TO HER DAY PROGRAM SENA ALSO SPOKE TO A RN, ANNALEE, WHO REQUESTED PTS DCS AND LABS BE FAXED TO HER AT [phone] Original Note: PT CLEARED TO DC YESTERDAY, HOWEVER ALF UNABLE TO ACCEPT THEY DID NOT HAVE A NURSE ON DUTY CM CALLED THIS MORNING. HOWEVER, RN HEMO DIALYSIS, JOSE ALEJANDRO, WAS NOT IN YET CM WILL CALL BACK LATER THIS MORNING
--- NOTE | 2024-03-18 11:38 | P.PNIM_ITS ---
Subjective Subjective Date of Service: 03/18/24 Interval History: uti Review of Systems seems improving no chest pain or sob or fevers urinating well Physical Exam 2 Vital Signs: Vital Signs: Last Vital Signs Temp 97.9 F 03/18/24 07:06 Pulse 54 03/18/24 07:06 Resp 18 03/18/24 07:06 BP 122/58 L 03/18/24 07:06 Pulse Ox 96 03/18/24 07:06 O2 Del Method Room Air 03/18/24 07:06 O2 Flow Rate 2.0 03/14/24 08:00 BMI result Body Mass Index 24.9 Appearance: Alert.? Oriented at baseline. cvs: rrr, [id number] , no murmur res: clear to auscultation ,no rhonchii or wheezing abd: no rebound or guarding ,nt, bs present. ext pulses present , no cyanosis. neuro: axo3 , nonfocal. Objective Data Active Medications Amoxicillin/Clavulanate Potassium (Amoxicillin/Potassium Clav 875 Mg Tablet) 875 mg PO Q12H [facility] Last Admin: 03/17/24 23:47 Dose: 875 mg Documented By: YEIMI Aripiprazole (Aripiprazole 5 Mg Tablet) 5 mg PO DAILY [facility] Last Admin: 03/18/24 08:31 Dose: 5 mg Documented By: DANICA Aspirin (Aspirin Enteric Coated 81 Mg Tablet.) 81 mg PO DAILY [facility] Last Admin: 03/18/24 08:25 Dose: 81 mg Documented By: DANICA Carbamazepine (Carbamazepine 200 Mg Tablet) 200 mg PO DAILY [facility] Last Admin: 03/18/24 08:31 Dose: 200 mg Documented By: DANICA Carbamazepine (Carbamazepine 200 Mg Tablet) 400 mg PO BEDTIME [facility] Last Admin: 03/17/24 20:31 Dose: 400 mg Documented By: YEIMI Docusate Sodium (Docusate Sodium 100 Mg Capsule) 100 mg PO BID [facility] Last Admin: 03/18/24 08:25 Dose: 100 mg Documented By: DANICA Hydromorphone HCl (Hydromorphone Hcl 0.5 Mg/0.5 Ml Syringe) 0.5 mg IVPUSH Q3H PRN; Protocol PRN Reason: Pain, Severe (Pain Scale 7-10) Levothyroxine Sodium (Levothyroxine Sodium 112 Mcg Tablet) 112 mcg PO 0630 [facility] Last Admin: 03/18/24 05:50 Dose: 112 mcg Documented By: YEIMI Loratadine (Loratadine 10 Mg Tablet) 10 mg PO DAILY [facility] Last Admin: 03/18/24 08:25 Dose: 10 mg Documented By: DANICA Melatonin (Melatonin 3 Mg Tablet) 6 mg PO BEDTIME PRN PRN Reason: Insomnia Last Admin: 03/16/24 20:21 Dose: 6 mg Documented By: SEVERIANO Methenamine Hippurate (Methenamine Hippurate 1 Gm Tablet) 1 gm PO BID [facility] Last Admin: 03/18/24 08:25 Dose: 1 gm Documented By: DANICA Olanzapine (Olanzapine 7.5 Mg Tablet) 15 mg PO BEDTIME [facility] Last Admin: 03/17/24 20:31 Dose: 15 mg Documented By: YEIMI Ondansetron HCl (Ondansetron Hcl 4 Mg/2 Ml Vial) 4 mg IVPUSH QID PRN PRN Reason: Nausea Sodium Chloride (0.9 % Sodium Chloride Flush 3 Ml Syringe) 3 ml IVFLUSH QSHIFT [facility] Last Admin: 03/18/24 08:25 Dose: 3 ml Documented By: DANICA Tamsulosin HCl (Tamsulosin Hcl 0.4 Mg Capsule) 0.4 mg PO DAILY [facility] Last Admin: 03/18/24 08:25 Dose: 0.4 mg Documented By: DANICA Trazodone HCl (Trazodone Hcl 50 Mg Tablet) 50 mg PO BEDTIME [facility] Last Admin: 03/17/24 20:31 Dose: 50 mg Documented By: YEIMI Labs 03/14/24 05:58 03/14/24 05:58 Microbiology Microbiology Results: Microbiology 03/13/24 05:51 Blood Culture - Final Blood - Arterial No growth after 5 days. 03/13/24 05:51 Blood Culture - Final Blood - Arterial No growth after 5 days. Assessment and Plan (1) Small bowel obstruction: Status: Acute Plan 68-year-old female with a PMH significant for toxic multinodular goiter, hypothyroidism, hx of colon cancer s/p colectomy with anastomosis, hx of ESBL E coli UTI, lung mass, and developmental delay who initially presented to the ED yesterday on 03/12 from [facility] for evaluation of abdominal pain and distention. Was admitted under general surgery services for management of ileus versus SBO. Hospitalist consult for medical management. Ileus versus SBO Plan as per General surgery ct abd shows -cholelithasis ,patient has elevated lft and alk phos hida-negative passing flatus ,had 1 bm 03/16 surgery following-no acute cholecysitis ,? ch cholecystitis lft's improving, moniter outpatient Hypoxia-in ed i time sats 88 % on Ra Unclear etiology-possible atelactasis related CXR showing low lung volumes -atelactasis ,pulmonary vascular congestion, but similar to previous Pt denies SOB or difficulty breathing,Has chronic cough unclear if worse than baseline. overnight sats 94-97% ,taken off oxygen sats 96% roomair , bnp 39 respiratory viral panel-negative . plan: hypoxia improved Incentive spirometry, chest physiotherapy oob Hx of ESBL E coli UTI UA with moderate leukocyte esterase, but only 11-20 wbc's, 4+ bacteria ?Patient with chronic UTIs, likely colonized Patient given empiric meropenem in the ED. urine culture mixed talia, will add repeat urine culture -no specific organism seen by id -rec augmentin for 10 days-augmentin started on 03/16/24. Hy,pothyroidism Last TSH 49.85-improving to 37, free t4 also bodelrine low. adjusted levothyroxine to 112.5 mcg ,moniter tsh in1 week. Hypertension Continue home meds Mood disorder Continue home meds will sign off now ,please call for any questions Quality Stroke Does the patient have a stroke diagnosis?: No VTE Prior VTE?: No VTE Risk Level:: Surgical - moderate VTE Device Contraindication: N/A - Device Ordered VTE Drug Contraindication: Treatment Not Indicated
[2024-03-18] MEDS: Amoxicillin/Potassium Clav 875 MG TABLET PO (11:52)
--- NOTE | 2024-03-18 11:58 | PC.NURSE ---
Spoke with Patricia nurse whom works with pt. Spoke in length regarding medications and pt status. Requested colace and miralax be ordered scheduled. Dr Mariscal notified and ordered medications as felt appropriate. Pt abdomen round semifirm with +positive all 4 quadrants. States passing flatus and has had BM. Denies pain n/v. Pt discharged back to nursing home
== END 2024-03-18 12:11 | disposition home or self-care (01) | DRG 389 ==
LOC: HO.ED 03-13 05:43 → HO.EDOVER 03-13 09:38 → HO.S3 03-13 15:33
PROVIDERS: Internal Medicine; Physician Assistant Medical; Student in an Organized Health Care Education/Training Program; Admitting Provider Surgery; Emergency Provider Emergency Medicine; PCP Internal Medicine; Visit Provider Surgery
DX: K56.7 Ileus, unspecified (principal); J98.11 Atelectasis; R62.50 Unspecified lack of expected normal physiological development in childhood; F39 Unspecified mood [affective] disorder; I10 Essential (primary) hypertension; Z20.822 Contact with and (suspected) exposure to COVID-19; Z91.040 Latex allergy status; Z87.440 Personal history of urinary (tract) infections; Z85.038 Personal history of other malignant neoplasm of large intestine; Z79.82 Long term (current) use of aspirin; Z79.890 Hormone replacement therapy; Z79.899 Other long term (current) drug therapy
CPT/HCPCS: 36415; 71045; 74177; 78227; 80053; 81001; 83605; 83690; 83735; 83880; 84439; 84443; 85025; 85610; 87040; 87086; 87633; 99285; A9537; C1758; J0131; J0737; J2185; J2270; J2405; J2543; J2805

== ENCOUNTER → 2024-03-12 23:26 | Outpatient (BNV) | payer MEDICARE, MEDICAID, SELFPAY | PROVIDERS: Emergency Provider Emergency Medicine; PCP Internal Medicine; Visit Provider Surgery | DX: K56.609 Unspecified intestinal obstruction, unspecified as to partial versus complete obstruction (principal) | CPT/HCPCS: 99222; 99232; 99239; 99499 ==

== ENCOUNTER → 2024-03-13 09:35 | Outpatient (BNV) | payer MEDICARE, MEDICAID, SELFPAY | PROVIDERS: Admitting Provider Surgery; Emergency Provider Emergency Medicine; PCP Internal Medicine; Visit Provider Student in an Organized Health Care Education/Training Program | DX: K56.609 Unspecified intestinal obstruction, unspecified as to partial versus complete obstruction (principal) | CPT/HCPCS: 99222; 99231 ==

== ENCOUNTER → 2024-03-13 09:35 | Outpatient (BNV) | payer MEDICARE, MEDICAID, SELFPAY | PROVIDERS: Admitting Provider Surgery; Emergency Provider Emergency Medicine; PCP Internal Medicine; Visit Provider Internal Medicine | DX: K56.7 Ileus, unspecified (principal); N39.0 Urinary tract infection, site not specified | CPT/HCPCS: 99222 ==

== ENCOUNTER 2024-03-21 09:58 | Outpatient (REF) | payer MEDICARE, MEDICAID, SELFPAY ==
[2024-03-21 11:59] LABS: Free T4 (Free Thyroxine) 0.56 ng/dL (0.71-1.85)
== END 2024-03-21 09:59 | disposition home or self-care (01) ==
LOC: HO.LAB 09:58
PROVIDERS: PCP Internal Medicine; Visit Provider Internal Medicine Endocrinology, Diabetes & Metabolism
DX: E89.0 Postprocedural hypothyroidism (principal)
CPT/HCPCS: 36415; 84439; 84443

== ENCOUNTER 2024-03-28 14:20 | Outpatient (AMB) | payer MEDICARE, MEDICAID, SELFPAY ==
[2024-03-28 14:29] VITALS: BP 182/84; PULSE 50; BMI 25.1
--- NOTE | 2024-03-28 14:29 | MHC.OFFVIS ---
Vital Signs 03/28/24 14:29 Height 5 ft 2 in Weight 137 lb 2.04 oz BMI 25.1 BP 182/84 H Blood Pressure Location Lt brachial Position Sitting Pulse 50 Pulse Source Pulse Oximeter Intake Visit Reasons: f/u post-surgical hypothyroidism-confirmed Intake Note: Patient present today for post-surgical hypothyroidism follow up visit. Box Person Required: No Accompanied by: staff Allergies adhesive tape Allergy (Intermediate, Verified 03/28/24 14:35) itching and skin redness latex Allergy (Intermediate, Verified 03/28/24 14:35) skin rash and itching Seasonal Allergies Allergy (Verified 03/28/24 14:35) Itching weed pollen Allergy (Verified 03/28/24 14:35) stuffy nose DUST Allergy (Unknown, Uncoded 03/28/24 14:35) ITCHY/WATERY EYES surgical paper tape Allergy (Unknown, Uncoded 03/28/24 14:35) rash Tide Allergy (Unknown, Uncoded 03/28/24 14:35) rash Medication List - Last Reconciled 03/28/24 by Harvinder Welch MD acetaminophen 500 mg PO Q4H PRN amoxicillin-pot clavulanate 875-125 mg 1 tab PO BID aripiprazole (Abilify) 5 mg PO DAILY ascorbic acid (vitamin C) (Vitamin C) 500 mg PO BID aspirin 81 mg PO DAILY betamethasone dipropionate 0.05% 1 appl topical BID PRN carbamazepine 200 mg PO DAILY carbamazepine 400 mg PO BEDTIME dextromethorphan-guaifenesin 10-200 mg/5 mL 10 mL PO QID PRN docusate sodium 100 mg PO BID PRN ferrous sulfate 325 mg PO MOWEFR ibuprofen 400 mg PO TID PRN levothyroxine 112 mcg PO 0630 60 days loratadine 10 mg PO DAILY melatonin 10 mg PO BEDTIME methenamine hippurate 1 g PO BID methyl salicylate-menthol 30-10 % (Icy Hot) 1 appl topical BID multivitamin 1 tab PO DAILY nystatin 1 appl topical BID PRN olanzapine 15 mg PO BEDTIME polyethylene glycol 3350 17 grams PO DAILY PRN polyethylene glycol 3350 (Miralax) 17 grams PO DAILY PRN sennosides (Senna Lax) 8.6 mg PO BEDTIME PRN tamsulosin 0.4 mg PO DAILY trazodone 50 mg PO BEDTIME triamcinolone acetonide 0.1% 1 appl topical BID PRN vibegron (Gemtesa) 75 mg PO DAILY zinc oxide-vitamin B5-vit E 11.3 % (Balmex Adult Care) 1 appl topical BID HPI Comments Details: 68 YO F with a significant psychiatric history who is seen in F/U for a toxic MNG. Patient last saw Dr. Romero 03/09/2023 She underwent workup by her PCP due to weight loss. This revealed hyperthyroidism as well as multiple thyroid nodules. She was subsequently referred to Endocrinology. She reported weight loss of 30 lbs, unintentional over 3 months. She also reported frequent bowel movements, tremors and insomnia. Labs revealed subclinical hyperthyroidism. All antibodies were negative. Thyroid uptake and scan was completed 10/21/2022 and revealed 16% uptake at 4 hours and 47.4% uptake at 24 hours. This was in a heterogenous pattern consistent with a toxic MNG. She as started on methimazole 5 mg PO daily and TFTs are now WNL. She underwent an US head and neck which revealed multiple bilateral thyroid nodules. She presented for FNA biopsy of these nodules, but was unable to tolerate even the pressure from the ultrasound probe. Biopsy was aborted. She opted for a total thyroidectomy and referral was sent. She has an appointment scheduled with Dr. Valladares this June. Denies any history of head or neck irradiation. She does have a history of colon cancer but is now in remission. She did receive radiation therapy for this to her abdomen. Denies any family history of thyroid cancer. Thyroid US: 09/27/2022 Right Thyroid Lobe: 5.3 x 2.2 x 3.0 cm, volume 18.3 mL. Parenchyma: The gland echotexture is heterogeneous. Thyroid vascularity is increased. Left Thyroid Lobe: 4.4 x 2.5 x 1.5 cm, volume 8.6 mL. Parenchyma: The gland echotexture is heterogeneous. Thyroid vascularity is increased. Isthmus: 0.8 cm in maximum AP dimension. There are numerous small cysts and colloid cysts. Estimated total number of nodules greater than or equal to 1 cm: 2. 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 Location: Right mid/lower pole. ?? ? Size: 4.7 x 2.4 x 2.6 cm, volume 15.4 mL. ?? ? Nodule characteristics: ?? ? Composition: Solid/almost completely solid (2). ?? ? Echogenicity: Isoechoic (1). ?? ? Shape: Not taller than wide (0). ?? ? Margins: Lobulated (2). ?? ? Echogenic Foci: Macrocalcifications (1). Punctate echogenic foci (3). ?? ? ACR TI-RADS total points: 9. ?? ? ACR TI-RADS category: 5. 2. Location: Left lower pole. ?? ? Size: 2.5 x 1.6 x 2.0 cm, volume 4.2 mL. ?? ? Nodule characteristics: ?? ? Composition: Mixed cystic and solid (1). ?? ? Echogenicity: Hypoechoic (2). ?? ? Shape: Not taller than wide (0). ?? ? Margins: Ill-defined (0). ?? ? Echogenic Foci: Punctate echogenic foci (3).? ACR TI-RADS total points: 6. ?? ? ACR TI-RADS category: 4. NODES: No lymphadenopathy is seen in the tissue surrounding the thyroid gland. Thyroid Uptake and Scan: 10/21/2022 FINDINGS: The uptake is 16.0% at 4 hours and 47.4% at 24 hours (Normal radioiodine uptake at 24 hours is 10% to 30%). The radioiodine uptake is moderately elevated. The radiopertechnetate thyroid scintigram shows the thyroid gland to be asymmetrical with the right lobe significantly larger than the left. There is heterogeneous distribution in both lobes. This is more pronounced on the left with a rounded focus of relatively decreased activity present in the upper pole and small rounded foci, probably at least 3 in the remainder the left lobe. In the right lobe there is a small focus of decreased activity medially in the mid pole but otherwise, although heterogeneous, no discrete focal abnormalities are present. 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 The significant elevation of the radioiodine uptake is more suggestive of Graves' disease. If clinically relevant, these could be distinguished by the presence or absence of thyroid stimulating immunoglobulins. The radioiodine uptake is moderately elevated. Labs: Laboratory Tests 10/17/22 10/17/22 10/17/22 11:39 11:39 11:39 Albumin 3.7 25-OH Vitamin D Total 40.4 TSH 0.10 L Free T4 0.85 Total T3 100 Thyroid Stim Immunoglob <89 PTH Intact 60 Calcium (PTH Intact) 8.9 Thyroglobulin Antibody <1 Thyroid Peroxidase Ab 1 TSH Receptor Ab <1.00 Laboratory Tests 01/30/23 02:34 TSH 1.62 status post total thyroidectomy 10/18/2023 with benign pathology. Currently on 100 mcg levothyroxine [facility] Medical History Post-surgical hypothyroidism History of ESBL E. coli infection Toxic multinodular goiter Toxic multinodular goiter Vitamin D deficiency Hyperthyroidism Multinodular thyroid Colon cancer Lung mass Developmental delay, mild Arthritis Surgical History Hx of total thyroidectomy History of biopsy Hx of colonic polyps Hx of colonoscopy Family History Father No problems noted. Mother Medical history unknown Social History Household Members: Other Household Members Other:: gr home Unable to assess alcohol history related to: Unknown Alcohol intake: never Patient Tobacco Use Status: Never used Tobacco Advance Directives Date on File: 01/05/21 service: No Current occupational status: disabled Current occupation: right handed Physical Exam Vital Signs: Last Vital Signs Pulse 50 03/28/24 14:29 BP 182/84 H 03/28/24 14:29 BMI result Body Mass Index 25.1 Const Other: Healing scar status post thyroidectomy Assessment & Plan Assessment & Plan (1) Post-surgical hypothyroidism: Code(s): E89.0 - Postprocedural hypothyroidism Category: Medical Plan: This is a 68-year-old white female status post total thyroidectomy for multinodular goiter with benign pathology. She is currently on levothyroxine 100 mcg appears to be clinically euthyroid with elevated TSH Plan is to recheck TSH and free T4 in 2 weeks and adjust levothyroxine. Also advised facility to separate levothyroxine mother medications and food which could be affecting absorption of levothyroxine. Coding Level of Care Code Est Pt Level 3 (24503) Complex EM visit Add On G2211 Diagnoses Post-surgical hypothyroidism E89.0
== END 2024-03-28 15:12 | disposition home or self-care (01) ==
PROVIDERS: PCP Internal Medicine; Visit Provider Internal Medicine Endocrinology, Diabetes & Metabolism
DX: E89.0 Postprocedural hypothyroidism (principal)
CPT/HCPCS: 99213; G2211

== ENCOUNTER → 2024-03-28 14:20 | Outpatient (BNVA) | payer MEDICARE, MEDICAID, SELFPAY | PROVIDERS: PCP Internal Medicine; Visit Provider Internal Medicine Endocrinology, Diabetes & Metabolism | DX: E89.0 Postprocedural hypothyroidism (principal) | CPT/HCPCS: 99212 ==

== ENCOUNTER 2024-04-03 20:07 | Emergency (ER) | payer MEDICARE, MEDICAID, SELFPAY ==
--- NOTE | 2024-04-03 20:13 | ED.GENADULT ---
HPI - General Adult General Chief complaint: Urogenital-Female Stated complaint: Needs christopher reinserted Time Seen by Provider: 04/04/24 03:00 Source: patient Mode of arrival: ambulatory Limitations: other History of Present Illness ED Provider: Dr. Tara Hitchcock HPI narrative: Patient comes to the emergency room accompanied by her leather flesher from the [facility]. According to the leather flesher, patient pulled her Christopher catheter on purpose. Seems that the patient had a Christopher catheter prior to this incident because patient had a colonoscopy and seems that she had too much stool and was compressing the bladder and was causing an outlet obstruction. At this time, patient denies any abdominal pain. Related Data Home Medications ?Medication ?Instructions ?Recorded ?Confirmed acetaminophen 500 mg tablet 500 mg PO Q4H PRN pain/fever 01/05/21 03/28/24 aspirin 81 mg tablet,delayed 81 mg PO DAILY 01/05/21 03/28/24 release carbamazepine 200 mg tablet 200 mg PO DAILY 01/05/21 03/28/24 carbamazepine 200 mg tablet 400 mg PO BEDTIME 01/05/21 03/28/24 loratadine 10 mg tablet 10 mg PO DAILY 01/05/21 03/28/24 multivitamin 1 tab PO DAILY 01/05/21 03/28/24 nystatin 100,000 unit/gram topical 1 appl topical BID PRN Rash 01/05/21 03/28/24 powder ibuprofen 400 mg tablet 400 mg PO TID PRN Pain 01/24/23 03/28/24 methyl salicylate 30 %-menthol 10 1 appl topical BID 01/24/23 03/28/24 % topical cream (Icy Hot) triamcinolone acetonide 0.1 % 1 appl topical BID PRN Skin 01/24/23 03/28/24 topical ointment Irritation dextromethorphan-guaifenesin 10 10 ml PO QID PRN Cough 05/10/23 03/28/24 mg-200 mg/5 mL oral liquid melatonin 10 mg tablet 10 mg PO BEDTIME 05/10/23 03/28/24 ferrous sulfate 325 mg (65 mg 325 mg PO MOWEFR 10/02/23 03/28/24 iron) tablet aripiprazole 5 mg tablet (Abilify) 5 mg PO DAILY 03/13/24 03/28/24 ascorbic acid (vitamin C) 500 mg 500 mg PO BID 03/13/24 03/28/24 tablet (Vitamin C) betamethasone dipropionate 0.05 % 1 appl topical BID PRN Dry areas 03/13/24 03/28/24 topical ointment on hand methenamine hippurate 1 gram tablet 1 g PO BID 03/13/24 03/28/24 olanzapine 15 mg tablet 15 mg PO BEDTIME 03/13/24 03/28/24 polyethylene glycol 3350 17 17 g PO DAILY PRN Constipation 03/13/24 03/28/24 gram/dose oral powder trazodone 50 mg tablet 50 mg PO BEDTIME 03/13/24 03/28/24 vibegron 75 mg tablet (Gemtesa) 75 mg PO DAILY 03/13/24 03/28/24 zinc oxide-vitamin B5-vit E 11.3% 1 appl topical BID Rash 03/13/24 03/28/24 topical cream (Balmex Adult Care) Previous Rx's ?Medication ?Instructions ?Recorded sennosides 8.6 mg tablet (Senna 8.6 mg PO BEDTIME PRN constipation 10/05/23 Lax) #30 tabs amoxicillin 875 mg-potassium 1 tab PO BID #14 tabs 03/18/24 clavulanate 125 mg tablet docusate sodium 100 mg capsule 100 mg PO BID PRN constipation #20 03/18/24 caps levothyroxine 112 mcg tablet 112 mcg PO 0630 60 days #60 tabs 03/18/24 polyethylene glycol 3350 17 17 g PO DAILY PRN constipation 03/18/24 gram/dose oral powder (Miralax) #238 grams tamsulosin 0.4 mg capsule 0.4 mg PO DAILY #30 caps 03/18/24 Allergies Allergy/AdvReac Type Severity Reaction Status Date / Time adhesive tape Allergy Intermediate itching Verified 04/03/24 20:19 and skin redness latex Allergy Intermediate skin rash Verified 04/03/24 20:19 and itching Seasonal Allergies Allergy Itching Verified 04/03/24 20:19 weed pollen Allergy stuffy nose Verified 04/03/24 20:19 DUST Allergy Unknown ITCHY/WATERY Uncoded 04/03/24 20:19 EYES surgical paper tape Allergy Unknown rash Uncoded 04/03/24 20:19 Tide Allergy Unknown rash Uncoded 07/03/24 20:19 Review of Systems Review of Systems: Constitutional : No Weight loss, No Fever, No Chills, No Night Sweats, No Fatigue, No Malaise ENT/Mouth : No Hearing loss, No Ear Pain, No Nasal Congestion, No Sinus Pain, No Hoarseness, No sore throat, No Rhinorrhea, No Swallowing Difficulty Eyes: No Eye Pain, No Swelling, No Redness, No Foreign Body, No Discharge, No Vision Changes Cardiovascular : No Chest Pain, No SOB, No Dyspnea on Exertion, No Orthopnea, No Edema, No Palpitations Respiratory : No Cough, No Sputum, No Wheezing, No Smoke Exposure, No Dyspnea Gastrointestinal : No Nausea, No Vomiting, No Diarrhea, No Constipation, No abdominal Pain, No Hematochezia, No Melena Genitourinary : no irregular bleeding, No Dysuria, No Urinary Frequency, No Hematuria, No Urinary Incontinence, No Urgency, No Flank Pain, No Urinary Flow Changes, No Hesitancy Musculoskeletal : No joint pain, No Myalgias, No Joint Swelling Skin : No Skin Lesions, No rash Neuro : No Weakness, No Numbness, No Paresthesias, No Loss of Consciousness, No Dizziness, No Headache Psych : No Anxiety/Panic, No Depression, No SI/HI/AH/VH, No Social Issues, Heme/Lymph: No Bruising, No Bleeding,No Lymphadenopathy Endocrine : No Polyuria, No Polydipsia, No Temperature Intolerance PMFSH Past Medical History Medical History Post-surgical hypothyroidism History of ESBL E. coli infection Toxic multinodular goiter Toxic multinodular goiter Vitamin D deficiency Hyperthyroidism Multinodular thyroid Colon cancer Lung mass Developmental delay, mild Arthritis Surgical History Hx of total thyroidectomy History of biopsy Hx of colonic polyps Hx of colonoscopy Family History Family History Father No problems noted. 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 Members: Other Household Members Other:: gr home Unable to assess alcohol history related to: Unknown Alcohol intake: never Patient Tobacco Use Status: Never used Tobacco Advance Directives: Yes Advance Directives on File: Yes Advance Directives Date on File: 01/05/21 Do you have a plan to hurt others: No Plan service: No Current occupational status: disabled Current occupation: right handed Physical Exam ED Vital Signs: Vital Signs - 24 hr 04/03/24 20:18 04/04/24 00:17 Temperature 97.9 F 97.6 F Pulse Rate 61 67 Respiratory Rate 18 17 Blood Pressure 147/117 H 142/69 H Pulse Oximetry 97 98 Oxygen Delivery Method Room Air Room Air BMI result Body Mass Index 28.1 Const Other: Appearance: Alert. Oriented X3. No acute distress. Eyes: Pupils equal, round and reactive to light. ENT: Pharynx normal. Neck: Normal inspection. Neck supple. No lymph nodes noted. No crepitus CVS: Normal heart rate and rhythm. Pulses normal. Normal S1 and S2 Respiratory: No respiratory distress. Breath sounds normal. No Wheezing. No rales Abdomen: Soft and nontender. No rigidity. No distention. Skin: Skin warm and dry. Normal skin color. Normal skin turgor. Extremities: No lower extremity edema. No Lacerations. No Rash Neuro: Oriented X 3. No motor deficit. No sensory deficit. Moving all extremities. No slurred speech. CN 2 through 12 grossly intact Psych: calm, cooperative, normal affect Course Course Course Narrative: This is an RME done by PAY[facility] Germain: Additional HPI, ROS, PE not included below will be deferred to primary provider. 68 year old female presents w/ staff who brought her here stating she needs a new christopher catheter hers came out. -patient states that she is ready to urinate. Patient will attempt emptying her bladder. We will reassess with a bladder scan. -discussed with the patient's leather flesher that if patient is able to urinate by herself, patient may not need a Christopher catheter. However, she is unable to empty her bladder, we would reinserted the Christopher catheter Medical Decision Making Medical Decision Making MDM Narrative: -patient was able to urinate by herself. Bladder scan showed approximately 200 mL of urine left. Patient has no pain. -I discussed with the patient's leather flesher that patient will continue pulling her Christopher catheter, not worth the risk if she can urinate by herself and remained comfortable. Discussed with the leather flesher that if patient starts developing any signs of urinary retention, she needs to come to the emergency room and we will reinsert the Christopher. -it was noted that patient is on 2 medications, tamsulosin for urinary retention and also on Gemtesa 4 over reactive bladder. Discussed with the leather flesher that Gentesa can cause urinary retention. At baseline, patient is incontinent of urine. Patient will continue taking tamsulosin, and discontinue Gemtessa -this time, patient does not have any UTI symptoms. Differential Diagnosis Differential Diagnoses: The differential diagnosis associated with the presentation includes (Urinary retention) Discharge Plan Discharge Clinical Impression: Dislodged Christopher catheter Patient Disposition: Home, Self-Care Instructions: Acute Urinary Retention in Women (ED) Additional Instructions: Discontinue taking Gemtesa, continue taking Tamsulosin. If you have any suprapubic pain, are able to urinate or have any new symptoms, please return to the emergency room. Prescriptions: No Action carbamazepine 200 mg tablet 200 mg PO DAILY carbamazepine 200 mg tablet 400 mg PO BEDTIME multivitamin Tablet 1 tab PO DAILY aspirin 81 mg Tablet,Delayed Release (Dr/Ec) 81 mg PO DAILY acetaminophen 500 mg Tablet 500 mg PO Q4H PRN (Reason: pain/fever) nystatin 100,000 unit/gram Powder 1 appl TOPICAL BID PRN (Reason: Rash) Rx Instructions: rash in skin folds loratadine 10 mg Tablet 10 mg PO DAILY triamcinolone acetonide 0.1 % ointment 1 appl topical BID PRN (Reason: Skin Irritation) ibuprofen 400 mg Tablet 400 mg PO TID PRN (Reason: Pain) Icy Hot 30-10 % Cream 1 appl TOPICAL BID Rx Instructions: to back and shoulders ferrous sulfate 325 mg (65 mg iron) Tablet 325 mg PO MOWEFR sennosides [Senna Lax] 8.6 mg Tablet 8.6 mg PO BEDTIME PRN (Reason: constipation) Qty: 30 0RF trazodone 50 mg tablet 50 mg PO BEDTIME olanzapine 15 mg tablet 15 mg PO BEDTIME betamethasone dipropionate 0.05 % ointment 1 appl topical BID PRN (Reason: Dry areas on hand) aripiprazole [Abilify] 5 mg Tablet 5 mg PO DAILY Gemtesa 75 mg tablet 75 mg PO DAILY methenamine hippurate 1 gram tablet 1 g PO BID ascorbic acid (vitamin C) [Vitamin C] 500 mg tablet 500 mg PO BID Balmex Adult Care 11.3 % Cream 1 appl TOPICAL BID Rx Instructions: apply to rash, groin, and buttocks polyethylene glycol 3350 17 gram/dose powder 17 g PO DAILY PRN (Reason: Constipation) levothyroxine 112 mcg Tablet 112 mcg PO 0630 60 Days Qty: 60 0RF amoxicillin-pot clavulanate 875-125 mg tablet 1 tab PO BID Qty: 14 0RF docusate sodium 100 mg Capsule 100 mg PO BID PRN (Reason: constipation) Qty: 20 0RF tamsulosin 0.4 mg Capsule 0.4 mg PO DAILY Qty: 30 0RF polyethylene glycol 3350 [Miralax] 17 gram/dose powder 17 g PO DAILY PRN (Reason: constipation) Qty: 238 0RF dextromethorphan-guaifenesin 10-200 mg/5 mL Liquid 10 ml PO QID PRN (Reason: Cough) melatonin 10 mg Tablet 10 mg PO BEDTIME Print Language: Macedonian
[2024-04-03 20:18] VITALS: BP 147/117; PULSE 61; RESP 18; TEMP 36.6; O2SAT 97; BMI 28.1
[2024-04-04 00:17] VITALS: BP 142/69; PULSE 67; RESP 17; TEMP 36.4; O2SAT 98
--- NOTE | 2024-04-04 00:48 | PC.NURSE ---
staff at bedside said pt had catheter placed after colonoscopy this week, they stated she was retaining urine so placed christopher.
[2024-04-04 03:58] VITALS: BP 133/74; PULSE 60; RESP 16; O2SAT 99
[2024-04-04 04:14] VITALS: BP 133/74; PULSE 60; RESP 16; TEMP 36.8; O2SAT 99
== END 2024-04-04 04:15 | disposition home or self-care (01) ==
PROVIDERS: Emergency Provider Emergency Medicine; PCP Internal Medicine
DX: T83.028A Displacement of other urinary catheter, initial encounter (principal); Y73.8 Miscellaneous gastroenterology and urology devices associated with adverse incidents, not elsewhere classified; Y92.9 Unspecified place or not applicable; Z79.899 Other long term (current) drug therapy
CPT/HCPCS: 51798; 99283; 99284

== ENCOUNTER 2024-04-07 15:59 | Emergency (ER) | payer MEDICARE, MEDICAID, SELFPAY ==
[2024-04-07 16:21] VITALS: BP 159/70; PULSE 78; RESP 17; TEMP 37.6; O2SAT 100; BMI 24.4
--- NOTE | 2024-04-07 16:59 | MHC.EDTECH ---
Patient not able to give urine sample at this time .
--- NOTE | 2024-04-07 17:56 | ED.FEMALEGU ---
HPI - Female Genitourinary General Chief complaint: Urogenital-Female Stated complaint: possible UTI Time Seen by Provider: 04/07/24 17:31 Source: patient Mode of arrival: ambulatory Limitations: no limitations History of Present Illness ED Provider: Tip Muñiz PA-C HPI Narrative: 68 yold female with mental delay, bladder outlet obstruction, toxic multiple nodular goiter, hyperthyroidism, urinary incontniencne. bladder outlet obstruction presents to the ED for dysuria, mild suprapbuic pain, and increase urinary freqeuncy. long term denies any fever or chills Related Data Home Medications ?Medication ?Instructions ?Recorded ?Confirmed acetaminophen 500 mg tablet 500 mg PO Q4H PRN pain/fever 01/05/21 03/28/24 aspirin 81 mg tablet,delayed 81 mg PO DAILY 01/05/21 03/28/24 release carbamazepine 200 mg tablet 200 mg PO DAILY 01/05/21 03/28/24 carbamazepine 200 mg tablet 400 mg PO BEDTIME 01/05/21 03/28/24 loratadine 10 mg tablet 10 mg PO DAILY 01/05/21 03/28/24 multivitamin 1 tab PO DAILY 01/05/21 03/28/24 nystatin 100,000 unit/gram topical 1 appl topical BID PRN Rash 01/05/21 03/28/24 powder ibuprofen 400 mg tablet 400 mg PO TID PRN Pain 01/24/23 03/28/24 methyl salicylate 30 %-menthol 10 1 appl topical BID 01/24/23 03/28/24 % topical cream (Icy Hot) triamcinolone acetonide 0.1 % 1 appl topical BID PRN Skin 01/24/23 03/28/24 topical ointment Irritation dextromethorphan-guaifenesin 10 10 ml PO QID PRN Cough 05/10/23 03/28/24 mg-200 mg/5 mL oral liquid melatonin 10 mg tablet 10 mg PO BEDTIME 05/10/23 03/28/24 ferrous sulfate 325 mg (65 mg 325 mg PO MOWEFR 10/02/23 03/28/24 iron) tablet aripiprazole 5 mg tablet (Abilify) 5 mg PO DAILY 03/13/24 03/28/24 ascorbic acid (vitamin C) 500 mg 500 mg PO BID 03/13/24 03/28/24 tablet (Vitamin C) betamethasone dipropionate 0.05 % 1 appl topical BID PRN Dry areas 03/13/24 03/28/24 topical ointment on hand methenamine hippurate 1 gram tablet 1 g PO BID 03/13/24 03/28/24 olanzapine 15 mg tablet 15 mg PO BEDTIME 03/13/24 03/28/24 polyethylene glycol 3350 17 17 g PO DAILY PRN Constipation 03/13/24 03/28/24 gram/dose oral powder trazodone 50 mg tablet 50 mg PO BEDTIME 03/13/24 03/28/24 vibegron 75 mg tablet (Gemtesa) 75 mg PO DAILY 03/13/24 03/28/24 zinc oxide-vitamin B5-vit E 11.3% 1 appl topical BID Rash 03/13/24 03/28/24 topical cream (Balmex Adult Care) Previous Rx's ?Medication ?Instructions ?Recorded sennosides 8.6 mg tablet (Senna 8.6 mg PO BEDTIME PRN constipation 10/05/23 Lax) #30 tabs amoxicillin 875 mg-potassium 1 tab PO BID #14 tabs 03/18/24 clavulanate 125 mg tablet docusate sodium 100 mg capsule 100 mg PO BID PRN constipation #20 03/18/24 caps levothyroxine 112 mcg tablet 112 [place] PO 0630 60 days #60 tabs 03/18/24 polyethylene glycol 3350 17 17 g PO DAILY PRN constipation 03/18/24 gram/dose oral powder (Miralax) #238 grams tamsulosin 0.4 mg capsule 0.4 mg PO DAILY #30 caps 03/18/24 nitrofurantoin 100 mg PO Q12H 7 days #14 caps 04/07/24 monohydrate/macrocrystals 100 mg capsule (Macrobid) Allergies Allergy/AdvReac Type Severity Reaction Status Date / Time adhesive tape Allergy Intermediate itching Verified 04/07/24 16:24 and skin redness latex Allergy Intermediate skin rash Verified 04/07/24 16:24 and itching Seasonal Allergies Allergy Itching Verified 04/07/24 16:24 weed pollen Allergy stuffy nose Verified 04/07/24 16:24 DUST Allergy Unknown ITCHY/WATERY Uncoded 04/03/24 20:19 EYES surgical paper tape Allergy Unknown rash Uncoded 04/03/24 20:19 Tide Allergy Unknown rash Uncoded 04/03/24 20:19 Review of Systems Review of Systems: dysuria Yes all other systems are reviewed and are negative [facility] Past Medical History Medical History Post-surgical hypothyroidism History of ESBL E. coli infection Toxic multinodular goiter Toxic multinodular goiter Vitamin D deficiency Hyperthyroidism Multinodular thyroid Colon cancer Lung mass Developmental delay, mild Arthritis Surgical History Hx of total thyroidectomy History of biopsy Hx of colonic polyps Hx of colonoscopy Family History Family History Father No problems noted. 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 Members: Other Household Members Other:: gr home Unable to assess alcohol history related to: Unknown Alcohol intake: never Patient Tobacco Use Status: Never used Tobacco Advance Directives: Yes Advance Directives on File: Yes Advance Directives Date on File: 01/05/21 Do you have a plan to hurt others: No Plan service: No Current occupational status: disabled Current occupation: right handed Physical Exam Vital Signs: Vital Signs: Last Vital Signs Temp 99.5 F 04/07/24 19:37 Pulse 79 04/07/24 19:37 Resp 16 04/07/24 19:37 BP 153/78 H 04/07/24 19:37 Pulse Ox 96 04/07/24 19:37 O2 Del Method Room Air 04/07/24 19:37 BMI result Body Mass Index 24.4 HEENT: Head: Yes normal to inspection, Yes No palpable skull fracture present, Yes normocephalic and Yes atraumatic Eyes: General: appearance normal, both eyes and all related structures Neck: Neck: Yes normal visual inspection, Yes full ROM, Yes no lymphadenopathy, Yes no meningeal signs, Yes trachea midline, Yes supple, No anterior neck swelling and No tender Chest: Chest palpation & inspection: normal inspection of the chest and normal palpation of entire chest wall Resp: Effort & Inspection: normal respiratory effort and able to speak in complete sentences Auscultation: clear to auscultation bilaterally Cardio: Jugular venous distension: no JVD Heart sounds: S1 normal heart sound present and S2 normal heart sound present GI: Inspection: Yes normal to inspection Palpation (GI): Soft to palpation, not firm, nontender, no guarding and not rigid : General: No CVA tenderness and Yes no CVA tenderness Back/Spine/Pelvis: Back: no CVA tenderness, No CVA tenderness and No back tenderness Skin: General skin exam: no rashes or lesions noted, elasticity normal and turgor normal Neuro: Other: patient is at baseline mentally General: gait normal, tone normal, moves all extremities, Normal light touch and pain sensation, no meningeal signs, no focal motor deficits, CN's II-XI intact bilaterally and normal sensation to monofilament Extrem: General: Yes normal to inspection, Yes full ROM and Yes capillary refill normal Psych: Appearance: grossly normal, well kempt and not disheveled Medical Decision Making Medical Decision Making MDM Narrative: 68-year-old female presents to ED for urinary symptoms. Patient's bladder scan 200 will do straight cath to retrieve urine. Basic labs ordered. Patient not in distress. Patient is not toxic appearing 6:44pm: patient is positive for UTI. Negative for elevated white blood cell count. Patient is safe for discharge. Patient will be discharged with antibiotics. Not suspecting pyelonephritis, urosepsis, septic, or kidney stones. Differential Diagnosis Differential Diagnoses: The differential diagnosis associated with the presentation includes (pylenoparhritis, kidney stones, UTI) Admission/Observation Consideration of admission/observation: Escalation of care including admission/observation considered Lab Data [facility] Lab Attestation statement: I reviewed the patient's lab results. 04/07/24 18:11 04/07/24 18:11 Labs: Lab Results 04/07/24 04/07/24 Range/Units 18:11 18:12 WBC 11.0 H (4.8-10.8) X10*3/uL RBC 3.65 L (4.20-5.50) X10*6/uL Hgb 11.3 L (12.0-16.0) g/dl Hct 34.8 L (37.0-47.0) % MCV 95.3 (80.0-98.0) fL MCH 31.0 (27.0-33.0) pg MCHC 32.5 (31.0-35.0) g/dl RDW 14.2 (11.0-16.0) % Plt Count 229 (160-400) X10*3/uL MPV 8.8 L (9.4-12.3) fL Immature Gran % (Auto) 0.6 H (0.0-0.4) % Neut % (Auto) 73.3 H (45-73) % Lymph % (Auto) 11.9 L (20-40) % [place] % (Auto) 13.3 H (2-11) % Eos % (Auto) 0.6 (0-4) % Baso % (Auto) 0.3 (0-2) % Lymph # (Auto) 1.3 (1.2-4.9) X10*3/uL [place] # (Auto) 1.5 H (0.1-1.2) X10*3/uL Eos # (Auto) 0.1 (0.0-0.4) X10*3/uL Baso # (Auto) 0.0 (0.0-0.2) X10*3/uL Abs Immat Gran (auto) 0.07 H (0.00-0.03) X10*3/uL Absolute Neuts (auto) 8.1 (2.0-8.3) x10*3/uL Absolute Nucleated RBC 0.000 (0.0-0.012) X10*3/uL Nucleated RBC % (auto) 0.0 (0.0-0.2) /100WBC Sodium 142 (135-145) mmol/L Potassium 4.3 (3.3-5.1) mmol/L Chloride 104 (96-108) mmol/L Carbon Dioxide 28 (22-29) mmol/L Anion Gap 14 (12-20) BUN 20 H (9-16) mg/dL Creatinine 0.93 (0.5-1.4) mg/dL Estim Creat Clear Calc 48.9 Estimated GFR 60 Random Glucose 96 (60-115) mg/dL Calcium 9.1 D (8.4-10.2) mg/dL Total Bilirubin 0.3 (0.0-1.0) mg/dL AST 19 (5-31) U/L ALT 22 (0-31) U/L Alkaline Phosphatase 127 H (39-117) U/L Total Protein 7.5 (6.5-8.0) g/dL Albumin 3.7 (3.5-5.0) g/dL Urine Color Yellow Urine Appearance Cloudy Urine pH 8.5 (5.0-9.0) Ur Specific [place] 1.010 (1.005-1.025) Urine Protein 100 (2+) H (Neg-Trace) mg/dL Urine Glucose (UA) Negative (Negative) mg/dL Urine Ketones Negative (Negative) mg/dL Urine Blood Moderate (2+) H (Negative) Urine Nitrite Positive H (Negative) Ur Leukocyte Esterase Large (3+) H (Negative) Urine RBC 6-10 H (0-2) /HPF Urine WBC >50 H (0-5) /HPF Ur Squamous Epith Cells 0-2 (0-2) /HPF Urine Bacteria 4+ (None Seen) Hyaline Casts 0-2 (0-2) /LPF Independent Historian Clinical information obtained from an independent historian. History obtained from or confirmed by: Other ([facility]) External Record Review External record reviewed: Other (Prior visits) Discharge Plan Discharge Clinical Impression: Urinary tract infection Patient Disposition: Home, Self-Care Instructions: Urinary Tract Infection in Women (ED) Additional Instructions: Recommend follow-up with primary care provider. Return to the ED immediately for any abdominal pain, flank pain, fever, chills, bloody urine, dizziness, weakness, back pain, hematuria, dysuria, or any other concerning symptoms. Prescriptions: New nitrofurantoin monohyd/m-cryst [Macrobid] 100 mg capsule 100 mg PO Q12H 7 Days Qty: 14 0RF Rx Instructions: must administer with a meal/food No Action carbamazepine 200 mg tablet 200 mg PO DAILY carbamazepine 200 mg tablet 400 mg PO BEDTIME multivitamin Tablet 1 tab PO DAILY aspirin 81 mg Tablet,Delayed Release (Dr/Ec) 81 mg PO DAILY acetaminophen 500 mg Tablet 500 mg PO Q4H PRN (Reason: pain/fever) nystatin 100,000 unit/gram Powder 1 appl TOPICAL BID PRN (Reason: Rash) Rx Instructions: rash in skin folds loratadine 10 mg Tablet 10 mg PO DAILY triamcinolone acetonide 0.1 % ointment 1 appl topical BID PRN (Reason: Skin Irritation) ibuprofen 400 mg Tablet 400 mg PO TID PRN (Reason: Pain) Icy Hot 30-10 % Cream 1 appl TOPICAL BID Rx Instructions: to back and shoulders ferrous sulfate 325 mg (65 mg iron) Tablet 325 mg PO MOWEFR sennosides [Senna Lax] 8.6 mg Tablet 8.6 mg PO BEDTIME PRN (Reason: constipation) Qty: 30 0RF trazodone 50 mg tablet 50 mg PO BEDTIME olanzapine 15 mg tablet 15 mg PO BEDTIME betamethasone dipropionate 0.05 % ointment 1 appl topical BID PRN (Reason: Dry areas on hand) aripiprazole [Abilify] 5 mg Tablet 5 mg PO DAILY Gemtesa 75 mg tablet 75 mg PO DAILY methenamine hippurate 1 gram tablet 1 g PO BID ascorbic acid (vitamin C) [Vitamin C] 500 mg tablet 500 mg PO BID Balmex Adult Care 11.3 % Cream 1 appl TOPICAL BID Rx Instructions: apply to rash, groin, and buttocks polyethylene glycol 3350 17 gram/dose powder 17 g PO DAILY PRN (Reason: Constipation) levothyroxine 112 mcg Tablet 112 mcg PO 0630 60 Days Qty: 60 0RF amoxicillin-pot clavulanate 875-125 mg tablet 1 tab PO BID Qty: 14 0RF docusate sodium 100 mg Capsule 100 mg PO BID PRN (Reason: constipation) Qty: 20 0RF tamsulosin 0.4 mg Capsule 0.4 mg PO DAILY Qty: 30 0RF polyethylene glycol 3350 [Miralax] 17 gram/dose powder 17 g PO DAILY PRN (Reason: constipation) Qty: 238 0RF dextromethorphan-guaifenesin 10-200 mg/5 mL Liquid 10 ml PO QID PRN (Reason: Cough) melatonin 10 mg Tablet 10 mg PO BEDTIME Interventions: ED Discharge Assessment Last Done: 04/07/24 19:37 Discharge Date/Time: 04/07/24 19:38 Print Language: Maori
[2024-04-07 18:15] LABS: MANUAL DIFF FLAG NO
[2024-04-07 18:19] LABS: Basophils Percent Auto 0.3 % (0-2); Eosinophils Absolute Auto 0.1 X10*3/uL (0.0-0.4); Eosinophils Percent Auto 0.6 % (0-4); Hematocrit 34.8 % (37.0-47.0); Hemoglobin 11.3 g/dl (12.0-16.0); Imm Gran Abs Auto 0.07 X10*3/uL (0.00-0.03); Imm Gran Pct Auto 0.6 % (0.0-0.4); Lymphocytes Absolute Auto 1.3 X10*3/uL (1.2-4.9); Lymphocytes Percent Auto 11.9 % (20-40); Mean Corpuscular HGB Conc 32.5 g/dl (31.0-35.0); Mean Corpuscular Volume 95.3 fL (80.0-98.0); Mean Platelet Volume 8.8 fL (9.4-12.3); Monocytes Absolute Auto 1.5 X10*3/uL (0.1-1.2); Monocytes Percent Auto 13.3 % (2-11); Neutrophils Absolute Auto 8.1 x10*3/uL (2.0-8.3); Neutrophils Percent Auto 73.3 % (45-73); Platelet Count 229 X10*3/uL (160-400); Red Blood Count 3.65 X10*6/uL (4.20-5.50); Red Cell Distribution Width 14.2 % (11.0-16.0)
[2024-04-07 18:25] LABS: Appearance Urine Cloudy; Color Urine Yellow; Glucose Urine UA Negative (Negative); Leukocyte Esterase Urine Large (3+) (Negative); Nitrite Urine Positive (Negative); PH 8.5 (5.0-9.0); UMIC TRIGGER UACC YES; Urine Blood Moderate (2+) (Negative); Urine Ketones Negative (Negative); Urine Protein 100 (2+) mg/dL (Neg-Trace)
[2024-04-07 18:33] LABS: Alanine Aminotransferase 22 U/L (0-31); Albumin Level 3.7 g/dL (3.5-5.0); Alkaline Phosphatase 127 U/L (39-117); Anion Gap 14 (12-20); Aspartate Amino Transferase 19 U/L (5-31); Bilirubin Total 0.3 mg/dL (0.0-1.0); Blood Urea Nitrogen 20 mg/dL (9-16); Calcium 9.1 mg/dL (8.4-10.2); Carbon Dioxide 28 mmol/L (22-29); Chloride 104 mmol/L (96-108); Creatinine Clr Calc Pharmacy 48.9; Estimated Glomerular Filt Rate 60; Glucose Random 96 mg/dL (60-115); Potassium 4.3 mmol/L (3.3-5.1); Sodium 142 mmol/L (135-145); Total Protein 7.5 g/dL (6.5-8.0)
[2024-04-07 18:34] LABS: Bacteria Urine 4+ (None Seen); Hyaline Casts Urine 0-2 /LPF (0-2); Squamous Epithelial Cell Urine 0-2 /HPF (0-2); UACC Culture Trigger YES; WBC Urine >50 /HPF (0-5)
[2024-04-07 19:19] VITALS: BP 153/78; PULSE 79; RESP 16; TEMP 37.5; O2SAT 96
[2024-04-07 19:37] VITALS: BP 153/78; PULSE 79; RESP 16; TEMP 37.5; O2SAT 96
== END 2024-04-07 19:38 | disposition home or self-care (01) ==
PROVIDERS: Physician Assistant; Emergency Provider Emergency Medicine Emergency Medical Services; PCP Internal Medicine
DX: N39.0 Urinary tract infection, site not specified (principal); R30.0 Dysuria; R62.50 Unspecified lack of expected normal physiological development in childhood; E05.90 Thyrotoxicosis, unspecified without thyrotoxic crisis or storm
CPT/HCPCS: 36415; 51701; 51798; 80053; 81001; 85025; 87086; 87088; 87186; 99283; 99284

== ENCOUNTER 2024-04-10 09:40 | Outpatient (REF) | payer MEDICARE, MEDICAID, SELFPAY ==
[2024-04-10 11:08] LABS: Free T4 (Free Thyroxine) 0.62 ng/dL (0.71-1.85); Thyroid Stimulating Hormone 51.84 uIU/mL (0.32-4.0)
== END 2024-04-10 09:41 | disposition home or self-care (01) ==
LOC: HO.LAB 09:40
PROVIDERS: PCP Internal Medicine; Visit Provider Internal Medicine Endocrinology, Diabetes & Metabolism
DX: E89.0 Postprocedural hypothyroidism (principal)
CPT/HCPCS: 36415; 84439; 84443

== ENCOUNTER 2024-04-11 20:32 | Emergency (ER) | payer MEDICARE, MEDICAID, SELFPAY ==
--- NOTE | 2024-04-11 | ECG_ITS ---
Test Reason : AMS Blood Pressure : / mmHG Vent. Rate : 061 BPM Atrial Rate : 061 BPM P-R Int : 202 ms QRS Dur : 114 ms QT Int : 416 ms P-R-T Axes : 034 -46 009 degrees QTc Int : 418 ms Normal sinus rhythm Incomplete right bundle branch block Left anterior fascicular block Moderate voltage criteria for LVH, may be normal variant ( R in aVL , [place] product ) Abnormal ECG When compared with ECG of 25-MAY-2020 19:47, No significant change was found Referred By: Generic ED Physician Electronically Signed By:Dale Yin
--- NOTE | ~2024-04-11 | XR_ITS ---
EXAMINATION: XR ABDOMEN KUB CLINICAL INDICATION: Abdominal pain. Constipation. COMPARISON: 10/07/2023. TECHNIQUE: AP view of the abdomen. FINDINGS: The bowel gas pattern is normal with no evidence of ileus or obstruction. There is significant retained stool throughout the colon. A 1.2 cm linear radiodense structure overlies the left upper quadrant similar to prior. No unusual soft tissue calcifications are noted. There is thoracolumbar degenerative change. XR/XR KUB IMPRESSION: Nonobstructive bowel gas pattern with significant retained stool throughout the colon.
[2024-04-11 20:39] VITALS: BP 128/68; PULSE 66; PULSE 69; RESP 15; TEMP 36.8; O2SAT 95; O2SAT 96; BMI 24.5
[2024-04-11 21:03] LABS: MANUAL DIFF FLAG NO
[2024-04-11 21:06] LABS: Basophils Percent Auto 0.3 % (0-2); Eosinophils Absolute Auto 0.2 X10*3/uL (0.0-0.4); Eosinophils Percent Auto 1.7 % (0-4); Hematocrit 30.5 % (37.0-47.0); Hemoglobin 10.2 g/dl (12.0-16.0); Imm Gran Abs Auto 0.06 X10*3/uL (0.00-0.03); Imm Gran Pct Auto 0.7 % (0.0-0.4); Lymphocytes Percent Auto 22.1 % (20-40); Mean Corpuscular HGB Conc 33.4 g/dl (31.0-35.0); Mean Corpuscular Hemoglobin 31.4 pg (27.0-33.0); Mean Corpuscular Volume 93.8 fL (80.0-98.0); Mean Platelet Volume 8.5 fL (9.4-12.3); Monocytes Absolute Auto 0.9 X10*3/uL (0.1-1.2); Monocytes Percent Auto 9.5 % (2-11); Neutrophils Percent Auto 65.7 % (45-73); Platelet Count 233 X10*3/uL (160-400); Red Blood Count 3.25 X10*6/uL (4.20-5.50); Red Cell Distribution Width 13.8 % (11.0-16.0); White Blood Count 9.2 X10*3/uL (4.8-10.8)
[2024-04-11 21:07] VITALS: BP 112/62; PULSE 67; RESP 16; TEMP 36.6; O2SAT 94
--- NOTE | 2024-04-11 21:25 | ED_ITS ---
HPI - Altered Mental Status General Chief Complaint: Altered Mental Status Stated Complaint: AMS + UTI Time Seen by Provider: 04/11/24 21:14 Source: EMS Mode of arrival: EMS Limitations: other History of Present Illness ED Provider: Dr. Tara Hitchcock HPI narrative: Patient comes to the emergency room via ambulance from her residential. According to the residential staff, the patient is acting different today. Seems that approximately 4 days ago, the patient was diagnosed with a UTI, patient was initially taking Macrobid and then changed to Ceftin. According to the staff, the patient keeps acting different. Specifically, the patient put her walker behind her instead of in the front, and then started walking backwards. Patient is unable to give much history. Patient is awake, alert x1 at baseline, stating that she is hungry and wants cookies Related Data Home Medications ?Medication ?Instructions ?Recorded ?Confirmed acetaminophen 500 mg tablet 500 mg PO Q4H PRN pain/fever 01/05/21 03/28/24 aspirin 81 mg tablet,delayed 81 mg PO DAILY 01/05/21 03/28/24 release carbamazepine 200 mg tablet 200 mg PO DAILY 01/05/21 03/28/24 carbamazepine 200 mg tablet 400 mg PO BEDTIME 01/05/21 03/28/24 loratadine 10 mg tablet 10 mg PO DAILY 01/05/21 03/28/24 multivitamin 1 tab PO DAILY 01/05/21 03/28/24 nystatin 100,000 unit/gram topical 1 appl topical BID PRN Rash 01/05/21 03/28/24 powder ibuprofen 400 mg tablet 400 mg PO TID PRN Pain 01/24/23 03/28/24 methyl salicylate 30 %-menthol 10 1 appl topical BID 01/24/23 03/28/24 % topical cream (Icy Hot) triamcinolone acetonide 0.1 % 1 appl topical BID PRN Skin 01/24/23 03/28/24 topical ointment Irritation dextromethorphan-guaifenesin 10 10 ml PO QID PRN Cough 05/10/23 03/28/24 mg-200 mg/5 mL oral liquid melatonin 10 mg tablet 10 mg PO BEDTIME 05/10/23 03/28/24 ferrous sulfate 325 mg (65 mg 325 mg PO MOWEFR 10/02/23 03/28/24 iron) tablet aripiprazole 5 mg tablet (Abilify) 5 mg PO DAILY 03/13/24 03/28/24 ascorbic acid (vitamin C) 500 mg 500 mg PO BID 03/13/24 03/28/24 tablet (Vitamin C) betamethasone dipropionate 0.05 % 1 appl topical BID PRN Dry areas 03/13/24 03/28/24 topical ointment on hand methenamine hippurate 1 gram tablet 1 g PO BID 03/13/24 03/28/24 olanzapine 15 mg tablet 15 mg PO BEDTIME 03/13/24 03/28/24 polyethylene glycol 3350 17 17 g PO DAILY PRN Constipation 03/13/24 03/28/24 gram/dose oral powder trazodone 50 mg tablet 50 mg PO BEDTIME 03/13/24 03/28/24 vibegron 75 mg tablet (Gemtesa) 75 mg PO DAILY 03/13/24 03/28/24 zinc oxide-vitamin B5-vit E 11.3% 1 appl topical BID Rash 03/13/24 03/28/24 topical cream (Balmex Adult Care) Previous Rx's ?Medication ?Instructions ?Recorded sennosides 8.6 mg tablet (Senna 8.6 mg PO BEDTIME PRN constipation 10/05/23 Lax) #30 tabs amoxicillin 875 mg-potassium 1 tab PO BID #14 tabs 03/18/24 clavulanate 125 mg tablet docusate sodium 100 mg capsule 100 mg PO BID PRN constipation #20 03/18/24 caps polyethylene glycol 3350 17 17 g PO DAILY PRN constipation 03/18/24 gram/dose oral powder (Miralax) #238 grams tamsulosin 0.4 mg capsule 0.4 mg PO DAILY #30 caps 03/18/24 nitrofurantoin 100 mg PO Q12H 7 days #14 caps 04/07/24 monohydrate/macrocrystals 100 mg capsule (Macrobid) cefuroxime axetil 250 mg tablet 250 mg PO BID 7 days #14 tabs 04/10/24 levothyroxine 150 mcg tablet 150 mcg PO DAILY #30 tabs 04/10/24 lactulose 10 gram/15 mL oral 10 g (15 mL) PO DAILY PRN laxative 04/11/24 solution effect #237 mL levofloxacin 500 mg tablet 500 mg PO DAILY #6 tabs 04/11/24 Allergies Allergy/AdvReac Type Severity Reaction Status Date / Time adhesive tape Allergy Intermediate itching Verified 04/11/24 20:44 and skin redness latex Allergy Intermediate skin rash Verified 04/11/24 20:44 and itching Seasonal Allergies Allergy Itching Verified 04/11/24 20:44 weed pollen Allergy stuffy nose Verified 04/11/24 20:44 DUST Allergy Unknown ITCHY/WATERY Uncoded 04/11/24 20:44 EYES surgical paper tape Allergy Unknown rash Uncoded 04/11/24 20:44 Tide Allergy Unknown rash Uncoded 04/11/24 20:44 Review of Systems 2 Review of Systems: Yes Unobtainable due to mental condition PMFSH Past Medical History Medical History Post-surgical hypothyroidism History of ESBL E. coli infection Toxic multinodular goiter Toxic multinodular goiter Vitamin D deficiency Hyperthyroidism Multinodular thyroid Colon cancer Lung mass Developmental delay, mild Arthritis Surgical History Hx of total thyroidectomy History of biopsy Hx of colonic polyps Hx of colonoscopy Family History Family History Father No problems noted. 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 Members: Other Household Members Other:: gr home Unable to assess alcohol history related to: Unknown Alcohol intake: never Patient Tobacco Use Status: Never used Tobacco Advance Directives: Yes Advance Directives on File: Yes Advance Directives Date on File: 01/05/21 Do you have a plan to hurt others: No Plan service: No Current occupational status: disabled Current occupation: right handed Physical Exam ED Vital Signs: Vital Signs - 24 hr 04/11/24 20:39 04/11/24 21:07 04/11/24 23:02 Temperature 98.3 F 97.9 F 98.9 F Pulse Rate 66 67 63 Respiratory Rate 15 16 14 Blood Pressure 112/62 120/56 L Pulse Oximetry 95 94 97 Oxygen Delivery Method Room Air Room Air Room Air BMI result Body Mass Index 24.5 Const Other: Appearance: Alert x1 at baseline, No acute distress. Eyes: Pupils equal, round and reactive to light. ENT: Pharynx normal. Neck: Normal inspection. Neck supple. No lymph nodes noted. No crepitus CVS: Normal heart rate and rhythm. Pulses normal. Normal S1 and S2 Respiratory: No respiratory distress. Breath sounds normal. No Wheezing. No rales Abdomen: Soft, slightly distended, no rigidity, no tenderness Skin: Skin warm and dry. Normal skin color. Normal skin turgor. Extremities: No lower extremity edema. No Lacerations. No Rash Neuro: Oriented X1 at baseline, No motor deficit. No sensory deficit. Moving all extremities. No slurred speech. CN 2 through 12 grossly intact Psych: calm, cooperative Course Course Course Narrative: -patient is unable to give any history -according to the staff, patient has a UTI, normal initially treated with Macrobid, then with Ceftin, seems that patient is still acting off her baseline -urinalysis pending Medical Decision Making Medical Decision Making [facility] Narrative: -my interpretation of labs, normal hematology, patient seems to have an improved urinalysis. Patient does have chronic colonization. Reviewing patient's previous urine microbiology, patient grew Proteus mirabilis in the urine, sensitive to levofloxacin. Patient was given a dose of levofloxacin in the ED, patient will continue treatment at home. -my interpretation of KUB, large amount of stool which is chronic for the patient, normal air gas pattern, SBO no suspected -patient does not have any fever, not tachycardic, normal blood pressure, sepsis is not suspected Differential Diagnosis Differential Diagnoses: The differential diagnosis associated with the presentation includes (UTI, chronic constipation) Lab Data [facility] Lab Attestation statement: I reviewed the patient's lab results. 04/11/24 20:57 04/11/24 20:57 Labs: Lab Results 04/11/24 04/11/24 Range/Units 20:57 22:16 WBC 9.2 (4.8-10.8) X10*3/uL RBC 3.25 L (4.20-5.50) X10*6/uL Hgb 10.2 L (12.0-16.0) g/dl Hct 30.5 L (37.0-47.0) % MCV 93.8 (80.0-98.0) fL MCH 31.4 (27.0-33.0) pg MCHC 33.4 (31.0-35.0) g/dl RDW 13.8 (11.0-16.0) % Plt Count 233 (160-400) X10*3/uL MPV 8.5 L (9.4-12.3) fL Immature Gran % (Auto) 0.7 H (0.0-0.4) % Neut % (Auto) 65.7 (45-73) % Lymph % (Auto) 22.1 (20-40) % [place] % (Auto) 9.5 (2-11) % Eos % (Auto) 1.7 (0-4) % Baso % (Auto) 0.3 (0-2) % Lymph # (Auto) 2.0 (1.2-4.9) X10*3/uL [place] # (Auto) 0.9 (0.1-1.2) X10*3/uL Eos # (Auto) 0.2 (0.0-0.4) X10*3/uL Baso # (Auto) 0.0 (0.0-0.2) X10*3/uL Abs Immat Gran (auto) 0.06 H (0.00-0.03) X10*3/uL Absolute Neuts (auto) 6.0 (2.0-8.3) x10*3/uL Absolute Nucleated RBC 0.000 (0.0-0.012) X10*3/uL Nucleated RBC % (auto) 0.0 (0.0-0.2) /100WBC Sodium 139 (135-145) mmol/L Potassium 4.4 (3.3-5.1) mmol/L Chloride 103 (96-108) mmol/L Carbon Dioxide 26 (22-29) mmol/L Anion Gap 14 (12-20) BUN 24 H (9-16) mg/dL Creatinine 0.93 (0.5-1.4) mg/dL Estim Creat Clear Calc 49.0 Estimated GFR 60 Random Glucose 105 (60-115) mg/dL Calcium 8.7 (8.4-10.2) mg/dL Magnesium 2.1 (1.6-2.6) mg/dL Total Bilirubin 0.2 (0.0-1.0) mg/dL Direct Bilirubin < 0.2 (0.0-0.5) mg/dL AST 18 (5-31) U/L ALT 15 (0-31) U/L Alkaline Phosphatase 102 (39-117) U/L Total Protein 6.9 (6.5-8.0) g/dL Albumin 3.2 L (3.5-5.0) g/dL Urine Color Yellow Urine Appearance Clear Urine pH 7.0 (5.0-9.0) Ur Specific Rush <= 1.005 (1.005-1.025) Urine Protein Negative (Neg-Trace) mg/dL Urine Glucose (UA) Negative (Negative) mg/dL Urine Ketones Negative (Negative) mg/dL Urine Blood Negative (Negative) Urine Nitrite Negative (Negative) Ur Leukocyte Esterase Large (3+) H (Negative) Urine RBC 0-2 (0-2) /HPF Urine WBC >50 H (0-5) /HPF Ur Squamous Epith Cells 3-5 (0-2) /HPF Urine Bacteria None Seen (None Seen) Hyaline Casts 0-2 (0-2) /LPF Discharge Plan Discharge Clinical Impression: UTI (urinary tract infection), Chronic constipation Patient Disposition: Home, Self-Care Instructions: Constipation (ED), Urinary Tract Infection in Women (ED) Additional Instructions: Your urinalysis today looks much better than the analysis of April 07. We will go ahead and treat with levofloxacin. You were given the 1st dose in the ED. -your x-ray of your abdomen shows a large amount of stool, however, you do not have a small-bowel obstruction. Please drink plenty of fluids with your medications for constipation. -Please follow-up with your primary care physician tomorrow. If you have any worsening or new symptoms, please return to the emergency room or call 911 Prescriptions: New levofloxacin 500 mg tablet 500 mg PO DAILY Qty: 6 0RF lactulose 10 gram/15 mL solution 10 g PO DAILY PRN (Reason: laxative effect) Qty: 237 0RF No Action levothyroxine 150 mcg tablet 150 mcg PO DAILY Qty: 30 5RF carbamazepine 200 mg tablet 200 mg PO DAILY carbamazepine 200 mg tablet 400 mg PO BEDTIME multivitamin Tablet 1 tab PO DAILY aspirin 81 mg Tablet,Delayed Release (Dr/Ec) 81 mg PO DAILY acetaminophen 500 mg Tablet 500 mg PO Q4H PRN (Reason: pain/fever) nystatin 100,000 unit/gram Powder 1 appl TOPICAL BID PRN (Reason: Rash) Rx Instructions: rash in skin folds loratadine 10 mg Tablet 10 mg PO DAILY triamcinolone acetonide 0.1 % ointment 1 appl topical BID PRN (Reason: Skin Irritation) ibuprofen 400 mg Tablet 400 mg PO TID PRN (Reason: Pain) Icy Hot 30-10 % Cream 1 appl TOPICAL BID Rx Instructions: to back and shoulders ferrous sulfate 325 mg (65 mg iron) Tablet 325 mg PO MOWEFR sennosides [Senna Lax] 8.6 mg Tablet 8.6 mg PO BEDTIME PRN (Reason: constipation) Qty: 30 0RF trazodone 50 mg tablet 50 mg PO BEDTIME olanzapine 15 mg tablet 15 mg PO BEDTIME betamethasone dipropionate 0.05 % ointment 1 appl topical BID PRN (Reason: Dry areas on hand) aripiprazole [Abilify] 5 mg Tablet 5 mg PO DAILY Gemtesa 75 mg tablet 75 mg PO DAILY methenamine hippurate 1 gram tablet 1 g PO BID ascorbic acid (vitamin C) [Vitamin C] 500 mg tablet 500 mg PO BID Balmex Adult Care 11.3 % Cream 1 appl TOPICAL BID Rx Instructions: apply to rash, groin, and buttocks polyethylene glycol 3350 17 gram/dose powder 17 g PO DAILY PRN (Reason: Constipation) amoxicillin-pot clavulanate 875-125 mg tablet 1 tab PO BID Qty: 14 0RF docusate sodium 100 mg Capsule 100 mg PO BID PRN (Reason: constipation) Qty: 20 0RF tamsulosin 0.4 mg Capsule 0.4 mg PO DAILY Qty: 30 0RF polyethylene glycol 3350 [Miralax] 17 gram/dose powder 17 g PO DAILY PRN (Reason: constipation) Qty: 238 0RF nitrofurantoin monohyd/m-cryst [Macrobid] 100 mg capsule 100 mg PO Q12H 7 Days Qty: 14 0RF Rx Instructions: must administer with a meal/food cefuroxime axetil 250 mg tablet 250 mg PO BID 7 Days Qty: 14 0RF dextromethorphan-guaifenesin 10-200 mg/5 mL Liquid 10 ml PO QID PRN (Reason: Cough) melatonin 10 mg Tablet 10 mg PO BEDTIME Print Language: Sinhala
[2024-04-11 21:28] LABS: Alanine Aminotransferase 15 U/L (0-31); Albumin Level 3.2 g/dL (3.5-5.0); Alkaline Phosphatase 102 U/L (39-117); Anion Gap 14 (12-20); Aspartate Amino Transferase 18 U/L (5-31); Bilirubin Direct < 0.2 mg/dL (0.0-0.5); Bilirubin Total 0.2 mg/dL (0.0-1.0); Blood Urea Nitrogen 24 mg/dL (9-16); Calcium 8.7 mg/dL (8.4-10.2); Carbon Dioxide 26 mmol/L (22-29); Chloride 103 mmol/L (96-108); Estimated Glomerular Filt Rate 60; Glucose Random 105 mg/dL (60-115); Magnesium 2.1 mg/dL (1.6-2.6); Potassium 4.4 mmol/L (3.3-5.1); Sodium 139 mmol/L (135-145); Total Protein 6.9 g/dL (6.5-8.0)
[2024-04-11 22:22] LABS: Appearance Urine Clear; Color Urine Yellow; Glucose Urine UA Negative (Negative); Leukocyte Esterase Urine Large (3+) (Negative); Nitrite Urine Negative (Negative); Specific Gravity - Urine <= 1.005 (1.005-1.025); UMIC TRIGGER UACC YES; Urine Blood Negative (Negative); Urine Ketones Negative (Negative); Urine Protein Negative (Neg-Trace)
[2024-04-11 22:29] LABS: Bacteria Urine None Seen (None Seen); Hyaline Casts Urine 0-2 /LPF (0-2); RBC Urine 0-2 /HPF (0-2); UACC Culture Trigger YES; WBC Urine >50 /HPF (0-5)
[2024-04-11 23:02] VITALS: BP 120/56; PULSE 63; RESP 14; TEMP 37.2; O2SAT 97
--- NOTE | 2024-04-12 00:20 | PC.NURSE ---
Pt is A&O X3, no s/s of any consfusion.
[2024-04-12 01:04] VITALS: BP 128/62; PULSE 60; RESP 14; TEMP 37; O2SAT 100
== END 2024-04-12 01:07 | disposition home or self-care (01) ==
PROVIDERS: Emergency Provider Emergency Medicine; PCP Internal Medicine
DX: N39.0 Urinary tract infection, site not specified (principal); K59.09 Other constipation; Z79.82 Long term (current) use of aspirin; Z79.899 Other long term (current) drug therapy
CPT/HCPCS: 36415; 51701; 74018; 80053; 81001; 82248; 83735; 85025; 87086; 93005; 99283; 99285

== ENCOUNTER → 2024-04-11 21:06 | Outpatient (BNV) | payer MEDICARE, MEDICAID, SELFPAY | PROVIDERS: Emergency Provider Emergency Medicine; PCP Internal Medicine; Visit Provider Internal Medicine Cardiovascular Disease | DX: R94.31 Abnormal electrocardiogram [ECG] [EKG] (principal) | CPT/HCPCS: 93010 ==

== ENCOUNTER 2024-04-14 17:43 | Emergency (ER) | payer MEDICARE, MEDICAID, SELFPAY ==
--- NOTE | ~2024-04-14 | XR_ITS ---
EXAMINATION: XR ABDOMEN KUB CLINICAL INDICATION: Fecal impaction COMPARISON: KUB and CT abdomen pelvis 04/11/2024 TECHNIQUE: AP view of the abdomen. FINDINGS: There is a moderate stool burden throughout the colon, slightly less when compared to the 04/11/2024 study. There is no evidence of bowel obstruction. Evidence of prior abdominal wall hernia repair. Degenerative changes are present in the spine. XR/XR KUB IMPRESSION: Moderate stool burden minimally decreased from prior. No evidence of bowel obstruction.
[2024-04-14 18:04] VITALS: BP 132/75; PULSE 78; RESP 20; TEMP 37.4; O2SAT 95; BMI 23.0
[2024-04-14 18:34] LABS: MANUAL DIFF FLAG NO
[2024-04-14 18:38] LABS: Basophils Percent Auto 0.4 % (0-2); Eosinophils Absolute Auto 0.2 X10*3/uL (0.0-0.4); Eosinophils Percent Auto 1.6 % (0-4); Hematocrit 33.5 % (37.0-47.0); Hemoglobin 11.1 g/dl (12.0-16.0); Imm Gran Abs Auto 0.05 X10*3/uL (0.00-0.03); Imm Gran Pct Auto 0.5 % (0.0-0.4); Lymphocytes Absolute Auto 2.3 X10*3/uL (1.2-4.9); Lymphocytes Percent Auto 23.1 % (20-40); Mean Corpuscular HGB Conc 33.1 g/dl (31.0-35.0); Mean Corpuscular Volume 93.6 fL (80.0-98.0); Mean Platelet Volume 8.5 fL (9.4-12.3); Monocytes Absolute Auto 0.8 X10*3/uL (0.1-1.2); Monocytes Percent Auto 7.6 % (2-11); Neutrophils Absolute Auto 6.7 x10*3/uL (2.0-8.3); Neutrophils Percent Auto 66.8 % (45-73); Platelet Count 302 X10*3/uL (160-400); Red Blood Count 3.58 X10*6/uL (4.20-5.50); Red Cell Distribution Width 13.6 % (11.0-16.0)
[2024-04-14 18:58] LABS: Alanine Aminotransferase 23 U/L (0-31); Albumin Level 3.7 g/dL (3.5-5.0); Alkaline Phosphatase 118 U/L (39-117); Anion Gap 15 (12-20); Aspartate Amino Transferase 25 U/L (5-31); Bilirubin Total 0.2 mg/dL (0.0-1.0); Blood Urea Nitrogen 22 mg/dL (9-16); Calcium 9.6 mg/dL (8.4-10.2); Carbon Dioxide 26 mmol/L (22-29); Chloride 104 mmol/L (96-108); Creatinine Clr Calc Pharmacy 52.9; Estimated Glomerular Filt Rate > 60; Glucose Random 101 mg/dL (60-115); Potassium 4.6 mmol/L (3.3-5.1); Sodium 140 mmol/L (135-145); Total Protein 7.6 g/dL (6.5-8.0)
[2024-04-14 20:00] VITALS: BP 135/65; PULSE 58; RESP 17; TEMP 37.2; O2SAT 100
--- NOTE | 2024-04-14 21:05 | ED_ITS ---
HPI - General Adult General Chief complaint: General Medical Stated complaint: no bowel movement for 9 days Time Seen by Provider: 04/14/24 19:47 Source: patient and other (Caregiver) Mode of arrival: ambulatory Limitations: no limitations History of Present Illness ED Provider: yemi CHAMBERS narrative: Patient is mentally challenged came with caregiver for having no bowel movement for nice 9 days patient on MiraLax and lactulose and Colace without much response no vomiting no abdominal pain patient otherwise in no distress Related Data Home Medications ?Medication ?Instructions ?Recorded ?Confirmed acetaminophen 500 mg tablet 500 mg PO Q4H PRN pain/fever 01/05/21 03/28/24 aspirin 81 mg tablet,delayed 81 mg PO DAILY 01/05/21 03/28/24 release carbamazepine 200 mg tablet 200 mg PO DAILY 01/05/21 03/28/24 carbamazepine 200 mg tablet 400 mg PO BEDTIME 01/05/21 03/28/24 loratadine 10 mg tablet 10 mg PO DAILY 01/05/21 03/28/24 multivitamin 1 tab PO DAILY 01/05/21 03/28/24 nystatin 100,000 unit/gram topical 1 appl topical BID PRN Rash 01/05/21 03/28/24 powder ibuprofen 400 mg tablet 400 mg PO TID PRN Pain 01/24/23 03/28/24 methyl salicylate 30 %-menthol 10 1 appl topical BID 01/24/23 03/28/24 % topical cream (Icy Hot) triamcinolone acetonide 0.1 % 1 appl topical BID PRN Skin 01/24/23 03/28/24 topical ointment Irritation dextromethorphan-guaifenesin 10 10 ml PO QID PRN Cough 05/10/23 03/28/24 mg-200 mg/5 mL oral liquid melatonin 10 mg tablet 10 mg PO BEDTIME 05/10/23 03/28/24 ferrous sulfate 325 mg (65 mg 325 mg PO MOWEFR 10/02/23 03/28/24 iron) tablet aripiprazole 5 mg tablet (Abilify) 5 mg PO DAILY 03/13/24 03/28/24 ascorbic acid (vitamin C) 500 mg 500 mg PO BID 03/13/24 03/28/24 tablet (Vitamin C) betamethasone dipropionate 0.05 % 1 appl topical BID PRN Dry areas 03/13/24 03/28/24 topical ointment on hand methenamine hippurate 1 gram tablet 1 g PO BID 03/13/24 03/28/24 olanzapine 15 mg tablet 15 mg PO BEDTIME 03/13/24 03/28/24 polyethylene glycol 3350 17 17 g PO DAILY PRN Constipation 03/13/24 03/28/24 gram/dose oral powder trazodone 50 mg tablet 50 mg PO BEDTIME 03/13/24 03/28/24 vibegron 75 mg tablet (Gemtesa) 75 mg PO DAILY 03/13/24 03/28/24 zinc oxide-vitamin B5-vit E 11.3% 1 appl topical BID Rash 03/13/24 03/28/24 topical cream (Balmex Adult Care) Previous Rx's ?Medication ?Instructions ?Recorded sennosides 8.6 mg tablet (Senna 8.6 mg PO BEDTIME PRN constipation 10/05/23 Lax) #30 tabs amoxicillin 875 mg-potassium 1 tab PO BID #14 tabs 03/18/24 clavulanate 125 mg tablet docusate sodium 100 mg capsule 100 mg PO BID PRN constipation #20 03/18/24 caps polyethylene glycol 3350 17 17 g PO DAILY PRN constipation 03/18/24 gram/dose oral powder (Miralax) #238 grams tamsulosin 0.4 mg capsule 0.4 mg PO DAILY #30 caps 03/18/24 nitrofurantoin 100 mg PO Q12H 7 days #14 caps 04/07/24 monohydrate/macrocrystals 100 mg capsule (Macrobid) cefuroxime axetil 250 mg tablet 250 mg PO BID 7 days #14 tabs 04/10/24 levothyroxine 150 mcg tablet 150 mcg PO DAILY #30 tabs 04/10/24 lactulose 10 gram/15 mL oral 10 g (15 mL) PO DAILY PRN laxative 04/11/24 solution effect #237 mL levofloxacin 500 mg tablet 500 mg PO DAILY #6 tabs 04/11/24 lactulose 10 gram/15 mL oral 10 g (15 mL) PO DAILY #237 mL 04/12/24 solution Allergies Allergy/AdvReac Type Severity Reaction Status Date / Time adhesive tape Allergy Intermediate itching Verified 04/14/24 18:08 and skin redness latex Allergy Intermediate skin rash Verified 04/14/24 18:08 and itching Seasonal Allergies Allergy Itching Verified 04/14/24 18:08 weed pollen Allergy stuffy nose Verified 04/14/24 18:08 DUST Allergy Unknown ITCHY/WATERY Uncoded 04/14/24 18:08 EYES surgical paper tape Allergy Unknown rash Uncoded 04/14/24 18:08 Tide Allergy Unknown rash Uncoded 04/14/24 18:08 Review of Systems 2 Review of Systems: Yes all other systems are reviewed and are negative PMFSH Past Medical History Medical History Post-surgical hypothyroidism History of ESBL E. coli infection Toxic multinodular goiter Toxic multinodular goiter Vitamin D deficiency Hyperthyroidism Multinodular thyroid Colon cancer Lung mass Developmental delay, mild Arthritis Surgical History Hx of total thyroidectomy History of biopsy Hx of colonic polyps Hx of colonoscopy Family History Family History Father No problems noted. 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 Members: Other Household Members Other:: gr home Unable to assess alcohol history related to: Unknown Alcohol intake: never Patient Tobacco Use Status: Never used Tobacco Smoked in Last 30 Days: No Use of substances other than those prescribed or required for medical reasons: No Advance Directives: Yes Advance Directives on File: Yes Advance Directives Date on File: 01/05/21 service: No Current occupational status: disabled Current occupation: right handed Physical Exam ED Vital Signs: Vital Signs - 24 hr 04/14/24 18:04 04/14/24 20:00 04/14/24 22:00 Temperature 99.4 F 99.0 F 98.8 F Pulse Rate 78 58 60 Respiratory Rate 20 17 17 Blood Pressure 132/75 135/65 130/70 Pulse Oximetry 95 100 99 Oxygen Delivery Method Room Air Room Air Room Air 04/15/24 00:13 Temperature 98.4 F Pulse Rate 55 Respiratory Rate 18 Blood Pressure 137/64 Pulse Oximetry 98 Oxygen Delivery Method Room Air BMI result Body Mass Index 23.0 Appearance: Alert. Oriented X3. No acute distress. ENT: Pharynx normal. Oral Mucosa moist Neck: Normal inspection. Neck supple. CVS: Normal heart rate and rhythm. Pulses normal. Respiratory: No respiratory distress. Equal air entry bilateral, no wheezing/rales/rhonchi Abdomen: Soft and nontender. Bowel sounds are present, no mass palpable, no CVA tenderness rectal: Soft brown stool Skin: Skin warm and dry. Normal skin color. Normal skin turgor. Extremities: No lower extremity edema. Neuro: Alert and awake at her baseline Medications Administered Discontinued Medications Generic Name Dose Route Start Last Admin Trade Name Joshua PRN Reason Stop Dose Admin Bisacodyl 10 mg 04/14/24 21:03 04/14/24 21:22 Bisacodyl 5 Mg Tablet.Dr PO 04/14/24 21:04 10 mg ONCE ONE Administration Magnesium Hydroxide 30 ml 04/14/24 21:03 04/14/24 21:22 Milk Of Magnesia 30 Ml Oral.Susp PO 04/14/24 21:04 30 ml ONCE ONE Administration Sodium Biphosphate/Sodium Phosphate 133 ml 04/14/24 22:12 04/14/24 22:18 Sodium Phosphate,Putnam-Dibasic 133 Ml Enema ND 04/14/24 22:13 133 ml ONCE ONE Administration Medical Decision Making Medical Decision Making [facility] Narrative: Patient with chronic constipation had small bowel movement in the ER after Fleet enema milk of magnesia and Dulcolax advised to continue MiraLax lactulose and Colace at the facility x-ray negative for any obstruction soft stool throughout Differential Diagnosis Differential Diagnoses: The differential diagnosis associated with the presentation includes Fecal impaction/constipation/slow bowel syndrome Lab Data [facility] Lab Attestation statement: I reviewed the patient's lab results. 04/14/24 18:30 04/14/24 18:30 Labs: Lab Results 04/14/24 Range/Units 18:30 WBC 10.0 (4.8-10.8) X10*3/uL RBC 3.58 L (4.20-5.50) X10*6/uL Hgb 11.1 L (12.0-16.0) g/dl Hct 33.5 L (37.0-47.0) % MCV 93.6 (80.0-98.0) fL MCH 31.0 (27.0-33.0) pg MCHC 33.1 (31.0-35.0) g/dl RDW 13.6 (11.0-16.0) % Plt Count 302 D (160-400) X10*3/uL MPV 8.5 L (9.4-12.3) fL Immature Gran % (Auto) 0.5 H (0.0-0.4) % Neut % (Auto) 66.8 (45-73) % Lymph % (Auto) 23.1 (20-40) % Putnam % (Auto) 7.6 (2-11) % Eos % (Auto) 1.6 (0-4) % Baso % (Auto) 0.4 (0-2) % Lymph # (Auto) 2.3 (1.2-4.9) X10*3/uL Putnam # (Auto) 0.8 (0.1-1.2) X10*3/uL Eos # (Auto) 0.2 (0.0-0.4) X10*3/uL Baso # (Auto) 0.0 (0.0-0.2) X10*3/uL Abs Immat Gran (auto) 0.05 H (0.00-0.03) X10*3/uL Absolute Neuts (auto) 6.7 (2.0-8.3) x10*3/uL Absolute Nucleated RBC 0.000 (0.0-0.012) X10*3/uL Nucleated RBC % (auto) 0.0 (0.0-0.2) /100WBC Sodium 140 (135-145) mmol/L Potassium 4.6 (3.3-5.1) mmol/L Chloride 104 (96-108) mmol/L Carbon Dioxide 26 (22-29) mmol/L Anion Gap 15 (12-20) BUN 22 H (9-16) mg/dL Creatinine 0.83 (0.5-1.4) mg/dL Estim Creat Clear Calc 52.9 Estimated GFR > 60 Random Glucose 101 (60-115) mg/dL Calcium 9.6 D (8.4-10.2) mg/dL Total Bilirubin 0.2 (0.0-1.0) mg/dL AST 25 (5-31) U/L ALT 23 (0-31) U/L Alkaline Phosphatase 118 H (39-117) U/L Total Protein 7.6 (6.5-8.0) g/dL Albumin 3.7 (3.5-5.0) g/dL Independent Interpretation I performed an independent interpretation of an: Plain X-Ray Radiology Impression Discussion of test interpretation with radiology: I have reviewed the radiologist's reading. Discharge Plan Discharge Clinical Impression: Constipation Patient Disposition: Home, Self-Care Instructions: Constipation (ED) Additional Instructions: Continue stool softener MiraLax and lactulose Use fleets enema for severe constipation Drink plenty of fluids Prescriptions: No Action levothyroxine 150 mcg tablet 150 mcg PO DAILY Qty: 30 5RF carbamazepine 200 mg tablet 200 mg PO DAILY carbamazepine 200 mg tablet 400 mg PO BEDTIME multivitamin Tablet 1 tab PO DAILY aspirin 81 mg Tablet,Delayed Release (Dr/Ec) 81 mg PO DAILY acetaminophen 500 mg Tablet 500 mg PO Q4H PRN (Reason: pain/fever) nystatin 100,000 unit/gram Powder 1 appl TOPICAL BID PRN (Reason: Rash) Rx Instructions: rash in skin folds loratadine 10 mg Tablet 10 mg PO DAILY triamcinolone acetonide 0.1 % ointment 1 appl topical BID PRN (Reason: Skin Irritation) ibuprofen 400 mg Tablet 400 mg PO TID PRN (Reason: Pain) Icy Hot 30-10 % Cream 1 appl TOPICAL BID Rx Instructions: to back and shoulders ferrous sulfate 325 mg (65 mg iron) Tablet 325 mg PO MOWEFR sennosides [Senna Lax] 8.6 mg Tablet 8.6 mg PO BEDTIME PRN (Reason: constipation) Qty: 30 0RF trazodone 50 mg tablet 50 mg PO BEDTIME olanzapine 15 mg tablet 15 mg PO BEDTIME betamethasone dipropionate 0.05 % ointment 1 appl topical BID PRN (Reason: Dry areas on hand) aripiprazole [Abilify] 5 mg Tablet 5 mg PO DAILY Gemtesa 75 mg tablet 75 mg PO DAILY methenamine hippurate 1 gram tablet 1 g PO BID ascorbic acid (vitamin C) [Vitamin C] 500 mg tablet 500 mg PO BID Balmex Adult Care 11.3 % Cream 1 appl TOPICAL BID Rx Instructions: apply to rash, groin, and buttocks polyethylene glycol 3350 17 gram/dose powder 17 g PO DAILY PRN (Reason: Constipation) amoxicillin-pot clavulanate 875-125 mg tablet 1 tab PO BID Qty: 14 0RF docusate sodium 100 mg Capsule 100 mg PO BID PRN (Reason: constipation) Qty: 20 0RF tamsulosin 0.4 mg Capsule 0.4 mg PO DAILY Qty: 30 0RF polyethylene glycol 3350 [Miralax] 17 gram/dose powder 17 g PO DAILY PRN (Reason: constipation) Qty: 238 0RF nitrofurantoin monohyd/m-cryst [Macrobid] 100 mg capsule 100 mg PO Q12H 7 Days Qty: 14 0RF Rx Instructions: must administer with a meal/food cefuroxime axetil 250 mg tablet 250 mg PO BID 7 Days Qty: 14 0RF levofloxacin 500 mg tablet 500 mg PO DAILY Qty: 6 0RF lactulose 10 gram/15 mL solution 10 g PO DAILY PRN (Reason: laxative effect) Qty: 237 0RF lactulose 10 gram/15 mL solution 10 g PO DAILY Qty: 237 0RF dextromethorphan-guaifenesin 10-200 mg/5 mL Liquid 10 ml PO QID PRN (Reason: Cough) melatonin 10 mg Tablet 10 mg PO BEDTIME Interventions: ED Discharge Assessment Last Done: 04/15/24 00:13 Discharge Date/Time: 04/15/24 00:18 Print Language: Kiswahili
[2024-04-14] MEDS: bisacodyL 5 MG TABLET.DR 10 MG PO (21:22)
[2024-04-14] MEDS: Milk of Magnesia 30 ML ORAL.SUSP PO (21:22)
[2024-04-14 22:00] VITALS: BP 130/70; PULSE 60; RESP 17; TEMP 37.1; O2SAT 99
[2024-04-14] MEDS: Sodium Phosphate,Mono-Dibasic 133 ML ENEMA PR (22:18)
--- NOTE | 2024-04-14 23:02 | MHC.EDTECH ---
Pt had small BM. This tech cleaned Pt and Pt was able to reposition/sit herself up in bed. Call carrero within reach.
--- NOTE | 2024-04-15 00:01 | MHC.EDTECH ---
Pt had very large BM. T/w cleaned Pt, and placed brief on Pt per RN as Pt is being discharged. T/w assisted Pt in changing back into her clothes. Pt resting in stretcher at this time.
[2024-04-15 00:13] VITALS: BP 137/64; PULSE 55; RESP 18; TEMP 36.9; O2SAT 98
== END 2024-04-15 00:18 | disposition home or self-care (01) ==
PROVIDERS: Emergency Provider Internal Medicine; PCP Internal Medicine
DX: K59.00 Constipation, unspecified (principal); R10.9 Unspecified abdominal pain; Z79.899 Other long term (current) drug therapy
CPT/HCPCS: 36415; 74018; 80053; 85025; 99284

== ENCOUNTER 2024-04-17 18:24 | Outpatient (REF) | payer MEDICARE, MEDICAID, SELFPAY ==
[2024-04-18 12:43] LABS: Appearance Urine Cloudy; Color Urine Yellow; Glucose Urine UA Negative (Negative); Leukocyte Esterase Urine Small (1+) (Negative); Nitrite Urine Negative (Negative); UMIC TRIGGER UACC YES; Urine Blood Negative (Negative); Urine Ketones Negative (Negative); Urine Protein Negative (Neg-Trace)
[2024-04-18 12:52] LABS: Bacteria Urine 1+ (None Seen); Hyaline Casts Urine 0-2 /LPF (0-2); RBC Urine 0-2 /HPF (0-2); UACC Culture Trigger YES
== END 2024-04-17 18:25 | disposition home or self-care (01) ==
LOC: HO.LNP 18:24
PROVIDERS: Visit Provider Internal Medicine
DX: R30.0 Dysuria (principal)
CPT/HCPCS: 81001; 87086

== ENCOUNTER 2024-04-22 17:05 | Outpatient (REF) | payer MEDICARE, MEDICAID, SELFPAY ==
[2024-04-23 14:30] LABS: Appearance Urine Clear; Color Urine Yellow; Glucose Urine UA Negative (Negative); Leukocyte Esterase Urine Negative (Negative); Nitrite Urine Negative (Negative); Urine Blood Negative (Negative); Urine Ketones Negative (Negative); Urine Protein Negative (Neg-Trace)
== END 2024-04-22 17:06 | disposition home or self-care (01) ==
LOC: HO.LNP 17:05
PROVIDERS: Visit Provider Internal Medicine
DX: R30.0 Dysuria (principal)
CPT/HCPCS: 81003; 87086

== ENCOUNTER 2024-04-26 12:04 | Outpatient (REF) | payer MEDICARE, MEDICAID, SELFPAY ==
[2024-04-26 13:39] LABS: C Reactive Protein 0.12 mg/dL (< or = 0.50); Iron 118 mcg/dL (30-160); Percent Iron Saturation 44 % (15-50); Total Iron Binding Capacity 268 mcg/dL (228-428); Unsaturated Iron Binding 150 ug/dL
[2024-04-26 13:43] LABS: Carbamazepine Tegretol 3.8 mcg/mL (5.0-12.0)
[2024-04-26 13:49] LABS: Free T4 (Free Thyroxine) 0.78 ng/dL (0.71-1.85); Thyroid Stimulating Hormone 39.86 uIU/mL (0.32-4.0)
[2024-04-26 13:56] LABS: Erythrocyte Sedimentation Rate 42 MM/HR (0-20)
[2024-04-26 14:01] LABS: Folate 11.3 ng/mL (> or = 4.0); Vitamin B12 774 pg/mL (200-900)
== END 2024-04-26 12:05 | disposition home or self-care (01) ==
LOC: HO.10HDL 12:04
PROVIDERS: Visit Provider Internal Medicine
DX: D64.9 Anemia, unspecified (principal); R44.3 Hallucinations, unspecified; R45.89 Other symptoms and signs involving emotional state; Z12.9 Encounter for screening for malignant neoplasm, site unspecified
CPT/HCPCS: 36415; 80156; 82378; 82550; 82607; 82746; 83540; 84439; 84443; 85652; 86140

== ENCOUNTER 2024-05-15 12:37 | Outpatient (AMB) | payer MEDICARE, MEDICAID, SELFPAY ==
[2024-05-15 13:01] VITALS: BP 136/60; BMI 24.5
--- NOTE | 2024-05-15 13:01 | MHC.OFFVIS ---
Vital Signs 05/15/24 13:01 Height 5 ft 3 in Weight 138 lb 7.205 oz BMI 24.5 BP 136/60 Blood Pressure Location Lt brachial Position Sitting Intake Visit Reasons: f/u post-surgical hypothyroidism-confirmed Intake Note: Patient present today for post surgical hypothyroidism follow up visit. 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 Accompanied by: Other Relationship Allergies adhesive tape Allergy (Intermediate, Verified 05/15/24 13:05) itching and skin redness latex Allergy (Intermediate, Verified 05/15/24 13:05) skin rash and itching Seasonal Allergies Allergy (Verified 05/15/24 13:05) Itching weed pollen Allergy (Verified 05/15/24 13:05) stuffy nose DUST Allergy (Unknown, Uncoded 05/15/24 13:05) ITCHY/WATERY EYES surgical paper tape Allergy (Unknown, Uncoded 05/15/24 13:05) rash Tide Allergy (Unknown, Uncoded 05/15/24 13:05) rash HPI Comments Details: 68 YO F with a significant psychiatric history who is seen in F/U for a toxic MNG. She underwent workup by her PCP due to weight loss. This revealed hyperthyroidism as well as multiple thyroid nodules. She was subsequently referred to Endocrinology. She reported weight loss of 30 lbs, unintentional over 3 months. She also reported frequent bowel movements, tremors and insomnia. Labs revealed subclinical hyperthyroidism. All antibodies were negative. Thyroid uptake and scan was completed 10/21/2022 and revealed 16% uptake at 4 hours and 47.4% uptake at 24 hours. This was in a heterogenous pattern consistent with a toxic MNG. She as started on methimazole 5 mg PO daily and TFTs are now WNL. She underwent an US head and neck which revealed multiple bilateral thyroid nodules. She presented for FNA biopsy of these nodules, but was unable to tolerate even the pressure from the ultrasound probe. Biopsy was aborted. She opted for a total thyroidectomy and referral was sent. She has an appointment scheduled with Dr. Valladares this June. Denies any history of head or neck irradiation. She does have a history of colon cancer but is now in remission. She did receive radiation therapy for this to her abdomen. Denies any family history of thyroid cancer. Thyroid US: 09/27/2022 Right Thyroid Lobe: 5.3 x 2.2 x 3.0 cm, volume 18.3 mL. Parenchyma: The gland echotexture is heterogeneous. Thyroid vascularity is increased. Left Thyroid Lobe: 4.4 x 2.5 x 1.5 cm, volume 8.6 mL. Parenchyma: The gland echotexture is heterogeneous. Thyroid vascularity is increased. Isthmus: 0.8 cm in maximum AP dimension. There are numerous small cysts and colloid cysts. Estimated total number of nodules greater than or equal to 1 cm: 2. Cupola Repairer nodules are described as follows: 1. Location: Right mid/lower pole. ?? ? Size: 4.7 x 2.4 x 2.6 cm, volume 15.4 mL. ?? ? Nodule characteristics: ?? ? Composition: Solid/almost completely solid (2). ?? ? Echogenicity: Isoechoic (1). ?? ? Shape: Not taller than wide (0). ?? ? Margins: Lobulated (2). ?? ? Echogenic Foci: Macrocalcifications (1). Punctate echogenic foci (3). ?? ? ACR TI-RADS total points: 9. ?? ? ACR TI-RADS category: 5. 2. Location: Left lower pole. ?? ? Size: 2.5 x 1.6 x 2.0 cm, volume 4.2 mL. ?? ? Nodule characteristics: ?? ? Composition: Mixed cystic and solid (1). ?? ? Echogenicity: Hypoechoic (2). ?? ? Shape: Not taller than wide (0). ?? ? Margins: Ill-defined (0). ?? ? Echogenic Foci: Punctate echogenic foci (3).? ACR TI-RADS total points: 6. ?? ? ACR TI-RADS category: 4. NODES: No lymphadenopathy is seen in the tissue surrounding the thyroid gland. Thyroid Uptake and Scan: 10/21/2022 FINDINGS: The uptake is 16.0% at 4 hours and 47.4% at 24 hours (Normal radioiodine uptake at 24 hours is 10% to 30%). The radioiodine uptake is moderately elevated. The radiopertechnetate thyroid scintigram shows the thyroid gland to be asymmetrical with the right lobe significantly larger than the left. There is heterogeneous distribution in both lobes. This is more pronounced on the left with a rounded focus of relatively decreased activity present in the upper pole and small rounded foci, probably at least 3 in the remainder the left lobe. In the right lobe there is a small focus of decreased activity medially in the mid pole but otherwise, although heterogeneous, no discrete focal abnormalities are present. 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 The significant elevation of the radioiodine uptake is more suggestive of Graves' disease. If clinically relevant, these could be distinguished by the presence or absence of thyroid stimulating immunoglobulins. The radioiodine uptake is moderately elevated. Labs: Laboratory Tests 10/17/22 10/17/22 10/17/22 11:39 11:39 11:39 Albumin 3.7 25-OH Vitamin D Total 40.4 TSH 0.10 L Free T4 0.85 Total T3 100 Thyroid Stim Immunoglob <89 PTH Intact 60 Calcium (PTH Intact) 8.9 Thyroglobulin Antibody <1 Thyroid Peroxidase Ab 1 TSH Receptor Ab <1.00 Laboratory Tests 01/30/23 02:34 TSH 1.62 status post total thyroidectomy 10/18/2023 with benign pathology. Currently on 200 mcg levothyroxine for 2 wks [facility] Medical History Post-surgical hypothyroidism History of ESBL E. coli infection Toxic multinodular goiter Toxic multinodular goiter Vitamin D deficiency Hyperthyroidism Multinodular thyroid Colon cancer Lung mass Developmental delay, mild Arthritis Surgical History Hx of total thyroidectomy History of biopsy Hx of colonic polyps Hx of colonoscopy Family History Father No problems noted. Mother Medical history unknown Social History Household Members: Other Household Members Other:: gr home Unable to assess alcohol history related to: Unknown Alcohol intake: never Patient Tobacco Use Status: Never used Tobacco Advance Directives Date on File: 01/05/21 service: No Current occupational status: disabled Current occupation: right handed Physical Exam Const Other: Healing scar status post thyroidectomy Assessment & Plan Assessment & Plan (1) Post-surgical hypothyroidism: Code(s): E89.0 - Postprocedural hypothyroidism Category: Medical Plan: This is a 68-year-old white female status post total thyroidectomy for multinodular goiter with benign pathology. She is currently on levothyroxine 100 mcg appears to be clinically euthyroid with elevated TSHs. However, staff and the [facility] states that she may not be administered levothyroxine properly and she may be taking it with other medications and food. Plan is to recheck TSH and free T4 today to make sure the TSH is trending downward on the 200 mcg adjust levothyroxine if necessary. If TSH is trending upward, may consider switching generic levothyroxine to branded Tirosint which is better absorbed. We will then recheck TSH and free T4-2 weeks time after patient receiving a full 4 weeks of 200 mcg. Also advised facility to separate levothyroxine mother medications and food which could be affecting absorption of levothyroxine. 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 Because she was not seen here today for that diagnosis, I did order a MRI of the pituitary and scheduled a new patient diagnosis to be seen in 3 months for both the pituitary and hypothyroidism. I did not order any pituitary function studies at this point until repeat MRI is performed and shows a discrete adenoma Orders: Orders Thyroid Stimulating Hormone 2 Weeks E89.0 - Postprocedural hypothyroidism MR head/brain wo/w con 3 Months E23.6 - Other disorders of pituitary gland Free T4 (Free Thyroxine) 2 Weeks E89.0 - Postprocedural hypothyroidism Coding Level of Care Code Est Pt Level 3 (04590) Diagnoses Post-surgical hypothyroidism E89.0
== END 2024-05-15 13:43 | disposition home or self-care (01) ==
PROVIDERS: PCP Internal Medicine; Visit Provider Internal Medicine Endocrinology, Diabetes & Metabolism
DX: E89.0 Postprocedural hypothyroidism (principal)
CPT/HCPCS: 99213

== ENCOUNTER 2024-05-15 12:37 | Outpatient (REF) | payer MEDICARE, MEDICAID, SELFPAY ==
[2024-05-15 16:27] LABS: Free T4 (Free Thyroxine) 0.82 ng/dL (0.71-1.85); Thyroid Stimulating Hormone 19.52 uIU/mL (0.32-4.0)
== END 2024-05-15 12:38 | disposition home or self-care (01) ==
LOC: HO.LAB 12:37
PROVIDERS: PCP Internal Medicine; Visit Provider Internal Medicine Endocrinology, Diabetes & Metabolism
DX: E89.0 Postprocedural hypothyroidism (principal)
CPT/HCPCS: 36415; 84439; 84443; 99212

== ENCOUNTER 2024-05-19 19:31 | Emergency (ER) | payer MEDICARE, MEDICAID, SELFPAY ==
--- NOTE | ~2024-05-19 | XR_ITS ---
EXAMINATION: XR CHEST CLINICAL INFORMATION: Aspiration event COMPARISON: Chest x-ray 03/13/2024 TECHNIQUE: Frontal view of the chest was obtained. FINDINGS: Lungs are clear. No focal airspace consolidation. No pneumothorax or pleural effusion. Enlarged cardiomediastinal silhouette, unchanged since prior study. Soft tissue and osseous structures are within normal limits. XR/XR chest 1V IMPRESSION: Lungs clear on this single AP view.
[2024-05-19 19:38] VITALS: BP 123/59; BP 133/84; PULSE 69; PULSE 70; RESP 18; TEMP 37.2; O2SAT 90; O2SAT 92; BMI 26.3
[2024-05-19 19:43] VITALS: O2SAT 95
--- NOTE | 2024-05-19 19:44 | PC.NURSE ---
pt refusing iv at this time.
--- NOTE | 2024-05-19 20:01 | PC.NURSE ---
Addendum entered by Woody Saxena 05/19/24 20:01: MD Vogel made aware. Original Note: lung sounds cta to L. lobe. R. lobe ?slight rales.
--- NOTE | 2024-05-19 20:03 | ED.GENADULT ---
HPI - General Adult General Chief complaint: General Medical Stated complaint: episode of choking/? food stuck in throat Time Seen by Provider: 05/19/24 20:03 History of Present Illness ED Provider: Jaspreet CHAMBERS narrative: The patient is a 68-year-old female who has a history of developmental delay and lives at a senior living. Today she had a choking episode. Apparently she was unresponsive and CPR was performed for about 5 minutes. Food was removed from her mouth. Eventually the patient awoke to a normal mental status. She was transferred to the hospital by ambulance. Related Data Home Medications ?Medication ?Instructions ?Recorded ?Confirmed acetaminophen 500 mg tablet 500 mg PO Q4H PRN pain/fever 01/05/21 03/28/24 aspirin 81 mg tablet,delayed 81 mg PO DAILY 01/05/21 03/28/24 release carbamazepine 200 mg tablet 200 mg PO DAILY 01/05/21 03/28/24 carbamazepine 200 mg tablet 400 mg PO BEDTIME 01/05/21 03/28/24 loratadine 10 mg tablet 10 mg PO DAILY 01/05/21 03/28/24 multivitamin 1 tab PO DAILY 01/05/21 03/28/24 nystatin 100,000 unit/gram topical 1 appl topical BID PRN Rash 01/05/21 03/28/24 powder ibuprofen 400 mg tablet 400 mg PO TID PRN Pain 01/24/23 03/28/24 methyl salicylate 30 %-menthol 10 1 appl topical BID 01/24/23 03/28/24 % topical cream (Icy Hot) triamcinolone acetonide 0.1 % 1 appl topical BID PRN Skin 01/24/23 03/28/24 topical ointment Irritation dextromethorphan-guaifenesin 10 10 ml PO QID PRN Cough 05/10/23 03/28/24 mg-200 mg/5 mL oral liquid melatonin 10 mg tablet 10 mg PO BEDTIME 05/10/23 03/28/24 ferrous sulfate 325 mg (65 mg 325 mg PO MOWEFR 10/02/23 03/28/24 iron) tablet aripiprazole 5 mg tablet (Abilify) 5 mg PO DAILY 03/13/24 03/28/24 ascorbic acid (vitamin C) 500 mg 500 mg PO BID 03/13/24 03/28/24 tablet (Vitamin C) betamethasone dipropionate 0.05 % 1 appl topical BID PRN Dry areas 03/13/24 03/28/24 topical ointment on hand methenamine hippurate 1 gram tablet 1 g PO BID 03/13/24 03/28/24 olanzapine 15 mg tablet 15 mg PO BEDTIME 03/13/24 03/28/24 polyethylene glycol 3350 17 17 g PO DAILY PRN Constipation 03/13/24 03/28/24 gram/dose oral powder trazodone 50 mg tablet 50 mg PO BEDTIME 03/13/24 03/28/24 vibegron 75 mg tablet (Gemtesa) 75 mg PO DAILY 03/13/24 03/28/24 zinc oxide-vitamin B5-vit E 11.3% 1 appl topical BID Rash 03/13/24 03/28/24 topical cream (Balmex Adult Care) Previous Rx's ?Medication ?Instructions ?Recorded sennosides 8.6 mg tablet (Senna 8.6 mg PO BEDTIME PRN constipation 10/05/23 Lax) #30 tabs amoxicillin 875 mg-potassium 1 tab PO BID #14 tabs 03/18/24 clavulanate 125 mg tablet docusate sodium 100 mg capsule 100 mg PO BID PRN constipation #20 03/18/24 caps polyethylene glycol 3350 17 17 g PO DAILY PRN constipation 03/18/24 gram/dose oral powder (Miralax) #238 grams tamsulosin 0.4 mg capsule 0.4 mg PO DAILY #30 caps 03/18/24 nitrofurantoin 100 mg PO Q12H 7 days #14 caps 04/07/24 monohydrate/macrocrystals 100 mg capsule (Macrobid) cefuroxime axetil 250 mg tablet 250 mg PO BID 7 days #14 tabs 04/10/24 lactulose 10 gram/15 mL oral 10 g (15 mL) PO DAILY PRN laxative 04/11/24 solution effect #237 mL levofloxacin 500 mg tablet 500 mg PO DAILY #6 tabs 04/11/24 lactulose 10 gram/15 mL oral 10 g (15 mL) PO DAILY #237 mL 04/12/24 solution levothyroxine 200 mcg tablet 200 mcg PO QAM #30 tabs 05/09/24 amoxicillin 875 mg-potassium 1 tab PO BID #14 tabs 05/20/24 clavulanate 125 mg tablet Allergies Allergy/AdvReac Type Severity Reaction Status Date / Time adhesive tape Allergy Intermediate itching Verified 05/19/24 19:43 and skin redness latex Allergy Intermediate skin rash Verified 05/19/24 19:43 and itching Seasonal Allergies Allergy Itching Verified 05/19/24 19:43 weed pollen Allergy stuffy nose Verified 05/19/24 19:43 DUST Allergy Unknown ITCHY/WATERY Uncoded 05/19/24 19:43 EYES surgical paper tape Allergy Unknown rash Uncoded 05/19/24 19:43 Tide Allergy Unknown rash Uncoded 05/19/24 19:43 Review of Systems Review of Systems: Yes all other systems are reviewed and are negative PMFSH Past Medical History Medical History Post-surgical hypothyroidism History of ESBL E. coli infection Toxic multinodular goiter Toxic multinodular goiter Vitamin D deficiency Hyperthyroidism Multinodular thyroid Colon cancer Lung mass Developmental delay, mild Arthritis Surgical History Hx of total thyroidectomy History of biopsy Hx of colonic polyps Hx of colonoscopy Family History Family History Father No problems noted. 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 Members: Other Household Members Other:: gr home Unable to assess alcohol history related to: Unknown Alcohol intake: never Patient Tobacco Use Status: Never used Tobacco Advance Directives: Yes Advance Directives on File: Yes Advance Directives Date on File: 01/05/21 service: No Current occupational status: disabled Current occupation: right handed Physical Exam ED Vital Signs: Vital Signs - 24 hr 05/19/24 19:38 05/19/24 19:43 05/19/24 20:19 Temperature 98.9 F Pulse Rate 69 65 Respiratory Rate 18 18 Blood Pressure 123/59 L Pulse Oximetry 92 95 Oxygen Delivery Method Room Air Nasal Cannula Oxygen Flow Rate 1 05/19/24 23:30 Temperature 97.8 F Pulse Rate 54 Respiratory Rate 18 Blood Pressure 138/68 Pulse Oximetry 100 Oxygen Delivery Method Room Air Oxygen Flow Rate BMI result Body Mass Index 26.3 Const Other: The patient is a chronically ill-appearing 68-year-old who was awake and alert, pleasant and cooperative. She does not appear in acute distress. HENMT Other: Face is symmetrical. Mucous membranes moist. Pharynx is clear. Eyes General: appearance normal, both eyes and all related structures Neck Other: No stridor. Moving her neck easily. No masses. No tenderness Resp Other: No increased work of breathing. Breath sounds are fairly clear bilaterally. Cardio Rate: regular rate Rhythm: regular rhythm Heart sounds: S1 normal heart sound present and S2 normal heart sound present GI Other: Abdomen is soft and nontender Skin Other: Skin is dry and unremarkable Neuro Other: The patient is awake and alert. The patient clearly has developmental delay but I believe she is at her baseline mental status. Cranial nerves are grossly intact. She moves her extremities symmetrically. She seems grossly neurologically intact. Extrem Other: No peripheral edema Medications Administered Discontinued Medications Generic Name Dose Route Start Last Admin Trade Name Freq PRN Reason Stop Dose Admin Albuterol/Ipratropium 3 ml 05/19/24 20:05 05/19/24 20:19 Albuterol/Iprat 2.5/0.5mg 3 Ml Ampul.Neb INHALE 05/19/24 20:06 3 ml ONCE ONE Administration Amoxicillin/Clavulanate Potassium 875 mg 05/20/24 00:21 05/20/24 00:53 Amoxicillin/Potassium Clav 875 Mg Tablet PO 05/20/24 00:22 875 mg ONCE ONE Administration Medical Decision Making Medical Decision Making [facility] Narrative: The patient is a 68-year-old woman with a history of developmental delay who lives at a senior care. She apparently had a choking episode that was severe enough that she received a few minutes of CPR. By the time the patient got here she was awake and alert and appropriate at her baseline mental status and seemed quite stable. There was a question whether she might have aspirated her food. She was given a DuoNeb updraft. Chest x-ray is unremarkable. She was observed for several hours and was stable on room air with a good oxygen oxygenation. She will be started on a course of Augmentin. I think she looks well enough to return to her senior living. Lab Data 05/19/24 20:20 05/19/24 20:20 Labs: Lab Results 05/19/24 Range/Units 20:20 WBC 7.6 (4.8-10.8) X10*3/uL RBC 3.29 L (4.20-5.50) X10*6/uL Hgb 10.3 L (12.0-16.0) g/dl Hct 31.7 L (37.0-47.0) % MCV 96.4 (80.0-98.0) fL MCH 31.3 (27.0-33.0) pg MCHC 32.5 (31.0-35.0) g/dl RDW 13.8 (11.0-16.0) % Plt Count 259 (160-400) X10*3/uL MPV 9.1 L (9.4-12.3) fL Immature Gran % (Auto) 0.4 (0.0-0.4) % Neut % (Auto) 68.0 (45-73) % Lymph % (Auto) 20.1 (20-40) % [place] % (Auto) 8.8 (2-11) % Eos % (Auto) 2.0 (0-4) % Baso % (Auto) 0.7 (0-2) % Lymph # (Auto) 1.5 (1.2-4.9) X10*3/uL [place] # (Auto) 0.7 (0.1-1.2) X10*3/uL Eos # (Auto) 0.2 (0.0-0.4) X10*3/uL Baso # (Auto) 0.1 (0.0-0.2) X10*3/uL Abs Immat Gran (auto) 0.03 (0.00-0.03) X10*3/uL Absolute Neuts (auto) 5.2 (2.0-8.3) x10*3/uL Absolute Nucleated RBC 0.000 (0.0-0.012) X10*3/uL Nucleated RBC % (auto) 0.0 (0.0-0.2) /100WBC Sodium 144 (135-145) mmol/L Potassium 4.1 (3.3-5.1) mmol/L Chloride 107 (96-108) mmol/L Carbon Dioxide 31 H (22-29) mmol/L Anion Gap 10 L (12-20) BUN 27 H (9-16) mg/dL Creatinine 0.86 (0.5-1.4) mg/dL Estim Creat Clear Calc 54.7 Estimated GFR > 60 Random Glucose 101 (60-115) mg/dL Calcium 8.9 D (8.4-10.2) mg/dL Total Bilirubin 0.1 (0.0-1.0) mg/dL Direct Bilirubin < 0.2 (0.0-0.5) mg/dL AST 60 H (5-31) U/L ALT 52 H (0-31) U/L Alkaline Phosphatase 103 (39-117) U/L Total Protein 6.5 (6.5-8.0) g/dL Albumin 3.3 L (3.5-5.0) g/dL Discharge Plan Discharge Clinical Impression: Aspiration into respiratory tract Patient Disposition: Home, Self-Care Instructions: Aspiration Pneumonia (DC) Additional Instructions: It is possible she might have a very mild case of an aspiration pneumonia. She has been started on an antibiotic called Augmentin (amoxicillin/clavulanate). Please have her take this medication 2 times a day until done. Please have her follow up with her regular doctor. Return to the emergency room if worse. Prescriptions: New amoxicillin-pot clavulanate 875-125 mg tablet 1 tab PO BID Qty: 14 0RF No Action levothyroxine 200 mcg tablet 200 mcg PO QAM Qty: 30 5RF Rx Instructions: 1 tab daily in the morning carbamazepine 200 mg tablet 200 mg PO DAILY carbamazepine 200 mg tablet 400 mg PO BEDTIME multivitamin Tablet 1 tab PO DAILY aspirin 81 mg Tablet,Delayed Release (Dr/Ec) 81 mg PO DAILY acetaminophen 500 mg Tablet 500 mg PO Q4H PRN (Reason: pain/fever) nystatin 100,000 unit/gram Powder 1 appl TOPICAL BID PRN (Reason: Rash) Rx Instructions: rash in skin folds loratadine 10 mg Tablet 10 mg PO DAILY triamcinolone acetonide 0.1 % ointment 1 appl topical BID PRN (Reason: Skin Irritation) ibuprofen 400 mg Tablet 400 mg PO TID PRN (Reason: Pain) Icy Hot 30-10 % Cream 1 appl TOPICAL BID Rx Instructions: to back and shoulders ferrous sulfate 325 mg (65 mg iron) Tablet 325 mg PO MOWEFR sennosides [Senna Lax] 8.6 mg Tablet 8.6 mg PO BEDTIME PRN (Reason: constipation) Qty: 30 0RF trazodone 50 mg tablet 50 mg PO BEDTIME olanzapine 15 mg tablet 15 mg PO BEDTIME betamethasone dipropionate 0.05 % ointment 1 appl topical BID PRN (Reason: Dry areas on hand) aripiprazole [Abilify] 5 mg Tablet 5 mg PO DAILY Gemtesa 75 mg tablet 75 mg PO DAILY methenamine hippurate 1 gram tablet 1 g PO BID ascorbic acid (vitamin C) [Vitamin C] 500 mg tablet 500 mg PO BID Balmex Adult Care 11.3 % Cream 1 appl TOPICAL BID Rx Instructions: apply to rash, groin, and buttocks polyethylene glycol 3350 17 gram/dose powder 17 g PO DAILY PRN (Reason: Constipation) amoxicillin-pot clavulanate 875-125 mg tablet 1 tab PO BID Qty: 14 0RF docusate sodium 100 mg Capsule 100 mg PO BID PRN (Reason: constipation) Qty: 20 0RF tamsulosin 0.4 mg Capsule 0.4 mg PO DAILY Qty: 30 0RF polyethylene glycol 3350 [Miralax] 17 gram/dose powder 17 g PO DAILY PRN (Reason: constipation) Qty: 238 0RF nitrofurantoin monohyd/m-cryst [Macrobid] 100 mg capsule 100 mg PO Q12H 7 Days Qty: 14 0RF Rx Instructions: must administer with a meal/food cefuroxime axetil 250 mg tablet 250 mg PO BID 7 Days Qty: 14 0RF levofloxacin 500 mg tablet 500 mg PO DAILY Qty: 6 0RF lactulose 10 gram/15 mL solution 10 g PO DAILY PRN (Reason: laxative effect) Qty: 237 0RF lactulose 10 gram/15 mL solution 10 g PO DAILY Qty: 237 0RF dextromethorphan-guaifenesin 10-200 mg/5 mL Liquid 10 ml PO QID PRN (Reason: Cough) melatonin 10 mg Tablet 10 mg PO BEDTIME Referrals: Sher Patrick MD [Primary Care Provider] - (Choking episode, possible mild aspiration pneumonia) Print Language: Bahamian
--- NOTE | 2024-05-19 20:05 | ECG_ITS ---
Test Reason : ASPIRATION Blood Pressure : / mmHG Vent. Rate : 062 BPM Atrial Rate : 062 BPM P-R Int : 224 ms QRS Dur : 116 ms QT Int : 408 ms P-R-T Axes : 026 -42 018 degrees QTc Int : 414 ms Sinus rhythm with 1st degree A-V block Left axis deviation Left ventricular hypertrophy with QRS widening ( R in aVL , German product ) Abnormal ECG When compared with ECG of 11-APR-2024 21:06, No significant change was found Referred By: Addison Vogel Electronically Signed By:ANAYELI GARCIA
[2024-05-19 20:19] VITALS: PULSE 65; RESP 18; O2SAT 98
[2024-05-19] MEDS: Albuterol/Iprat 2.5/0.5MG 3 ML AMPUL.NEB INHALE (20:19)
[2024-05-19 20:25] LABS: MANUAL DIFF FLAG NO
[2024-05-19 20:27] LABS: Basophils Absolute Auto 0.1 X10*3/uL (0.0-0.2); Basophils Percent Auto 0.7 % (0-2); Eosinophils Absolute Auto 0.2 X10*3/uL (0.0-0.4); Hematocrit 31.7 % (37.0-47.0); Hemoglobin 10.3 g/dl (12.0-16.0); Imm Gran Abs Auto 0.03 X10*3/uL (0.00-0.03); Imm Gran Pct Auto 0.4 % (0.0-0.4); Lymphocytes Absolute Auto 1.5 X10*3/uL (1.2-4.9); Lymphocytes Percent Auto 20.1 % (20-40); Mean Corpuscular HGB Conc 32.5 g/dl (31.0-35.0); Mean Corpuscular Hemoglobin 31.3 pg (27.0-33.0); Mean Corpuscular Volume 96.4 fL (80.0-98.0); Mean Platelet Volume 9.1 fL (9.4-12.3); Monocytes Absolute Auto 0.7 X10*3/uL (0.1-1.2); Monocytes Percent Auto 8.8 % (2-11); Neutrophils Absolute Auto 5.2 x10*3/uL (2.0-8.3); Platelet Count 259 X10*3/uL (160-400); Red Blood Count 3.29 X10*6/uL (4.20-5.50); Red Cell Distribution Width 13.8 % (11.0-16.0); White Blood Count 7.6 X10*3/uL (4.8-10.8)
[2024-05-19 20:44] LABS: Alanine Aminotransferase 52 U/L (0-31); Albumin Level 3.3 g/dL (3.5-5.0); Alkaline Phosphatase 103 U/L (39-117); Anion Gap 10 (12-20); Aspartate Amino Transferase 60 U/L (5-31); Bilirubin Direct < 0.2 mg/dL (0.0-0.5); Bilirubin Total 0.1 mg/dL (0.0-1.0); Blood Urea Nitrogen 27 mg/dL (9-16); Calcium 8.9 mg/dL (8.4-10.2); Carbon Dioxide 31 mmol/L (22-29); Chloride 107 mmol/L (96-108); Creatinine Clr Calc Pharmacy 54.7; Estimated Glomerular Filt Rate > 60; Glucose Random 101 mg/dL (60-115); Potassium 4.1 mmol/L (3.3-5.1); Sodium 144 mmol/L (135-145); Total Protein 6.5 g/dL (6.5-8.0)
[2024-05-19 23:30] VITALS: BP 138/68; PULSE 54; RESP 18; TEMP 36.6; O2SAT 100
--- NOTE | 2024-05-20 00:43 | PC.NURSE ---
Patricia CHUN from [facility] given report via phone [phone]. per RN pt to return with intermediate staff currently at bedside.
[2024-05-20] MEDS: Amoxicillin/Potassium Clav 875 MG TABLET PO (00:53)
== END 2024-05-20 00:50 | disposition home or self-care (01) ==
PROVIDERS: Emergency Provider Emergency Medicine; PCP Internal Medicine
DX: J69.0 Pneumonitis due to inhalation of food and vomit (principal); I44.0 Atrioventricular block, first degree; R94.31 Abnormal electrocardiogram [ECG] [EKG]; Z79.899 Other long term (current) drug therapy
CPT/HCPCS: 36415; 71045; 80048; 80076; 85025; 93005; 94640; 99284

== ENCOUNTER 2024-05-22 09:59 | Outpatient (REF) | payer MEDICARE, MEDICAID, SELFPAY ==
[2024-05-22 12:47] LABS: Free T4 (Free Thyroxine) 0.91 ng/dL (0.71-1.85); Thyroid Stimulating Hormone 14.99 uIU/mL (0.32-4.0)
== END 2024-05-22 10:00 | disposition home or self-care (01) ==
LOC: HO.LAB 09:59
PROVIDERS: PCP Internal Medicine; Visit Provider Internal Medicine Endocrinology, Diabetes & Metabolism
DX: E89.0 Postprocedural hypothyroidism (principal)
CPT/HCPCS: 36415; 84439; 84443

== ENCOUNTER 2024-06-11 09:17 | Outpatient (AMB) | payer MEDICARE, MEDICAID, SELFPAY ==
--- NOTE | 2024-06-11 09:18 | MHC.OFFVIS ---
Vital Signs 06/11/24 09:19 Height 5 ft 2 in Weight 143 lb BMI 26.2 Intake Visit Reasons: OV - EMG review Intake Note: Kirsten is a 68 year old right hand dominant female who presents today to review EMG study done 03/06/24. Allergies adhesive tape Allergy (Intermediate, Verified 06/11/24 09:19) itching and skin redness latex Allergy (Intermediate, Verified 06/11/24 09:19) skin rash and itching Seasonal Allergies Allergy (Verified 06/11/24 09:19) Itching weed pollen Allergy (Verified 06/11/24 09:19) stuffy nose DUST Allergy (Unknown, Uncoded 06/11/24 09:19) ITCHY/WATERY EYES surgical paper tape Allergy (Unknown, Uncoded 06/11/24 09:19) rash Tide Allergy (Unknown, Uncoded 06/11/24 09:19) rash HPI HPI OV - EMG review: Details: Kirsten is a 68 year old right hand dominant woman who returns for a NCS review of her bilateral hand numbness. She has a developmental delay/intellectual disability and was seen with a helper today. She lives in a skilled nursing. She complains of numbness in her fingers bilaterally. Primarily in the median nerve distribution. Symptoms intermittent, but daily, primarily at night. She has difficulty sleeping and has been taking medication for this, which has been helpful. She also complains of pain and arthritis all over in both of her hands. In talking with her, we are not seeing focal areas of pain. She also complains of her hands going stiff at times. She says she has arthritis throughout her body, which also causes her hand pain. She has a Hx of a prior surgery to her left middle finger & a previous left distal radius fracture, which has healed. [facility] Medical History Post-surgical hypothyroidism History of ESBL E. coli infection Toxic multinodular goiter Toxic multinodular goiter Vitamin D deficiency Hyperthyroidism Multinodular thyroid Colon cancer Lung mass Developmental delay, mild Arthritis Surgical History Hx of total thyroidectomy History of biopsy Hx of colonic polyps Hx of colonoscopy Family History Father No problems noted. Mother Medical history unknown Social History Household Members: Other Household Members Other:: gr home Unable to assess alcohol history related to: Unknown Alcohol intake: never Patient Tobacco Use Status: Never used Tobacco Advance Directives Date on File: 01/05/21 service: No Current occupational status: disabled Current occupation: right handed Physical Exam Vital Signs: BMI result Body Mass Index 26.2 Extrem Other: Evaluation of Bilateral Upper Extremity: The patient is alert, oriented, and in no acute distress She has an intellectual handicap but was able to actively participate in her appointment today. She is a poor historian Neuro: Median, Ulnar, Radial nerves motor and sensory grossly intact. It is hard to know if she does have any numbness today in clinic. At 1st she was saying that she had normal sensation in all of her fingers. As I came by again and asked her about numbness she was saying that she did have numbness in her fingers, but without any specificity. No thenar or intrinsic wasting Vascular: Cap refill brisk ROM: She can make a fist and extend all her digits Left middle finger IP joint flexion contracture of ~25 degrees, which she says is from a prior surgery Scar on the left wrist from an old distal radius ORIF. She could not localize pain to any particular area Nerve Conduction Study: IMPRESSION: 1. This is an abnormal study. 2. There is electrodiagnostic evidence for bilateral moderate-severe median neuropathy at the wrist, consistent with carpal tunnel syndrome. 3. There is electrodiagnostic evidence for bilateral ulnar neuropathy at the elbow. 4. There is no electrodiagnostic evidence for brachial plexopathy, or cervical radiculopathy. Marylin Burgess MD, HITESH 03/06/24 Radiographs: 3 views of the left hand from 01/25/24 were reviewed by me today in clinic. They show a volar locking plate with a healed distal radius fracture, an ulnar styloid non-union, small radial styloid non-union, and some basal joint arthritis with joint space narrowing, subchondral sclerosis, and osteophyte formation. Assessment & Plan Assessment & Plan (1) Carpal tunnel syndrome of right wrist: Code(s): G56.01 - Carpal tunnel syndrome, right upper limb Category: Medical (2) Carpal tunnel syndrome of left wrist: Code(s): G56.02 - Carpal tunnel syndrome, left upper limb Category: Medical (3) Cubital tunnel syndrome on right: Code(s): G56.21 - Lesion of ulnar nerve, right upper limb Category: Medical (4) Cubital tunnel syndrome on left: Code(s): G56.22 - Lesion of ulnar nerve, left upper limb Category: Medical (5) Developmental delay, mild: Code(s): R62.50 - Unspecified lack of expected normal physiological development in childhood Category: Medical (6) Bilateral hand pain: Code(s): M79.641 - Pain in right hand; M79.642 - Pain in left hand Category: Medical Plan Assessment & Plan: 1. Right carpal tunnel syndrome, moderate-severe Symptoms intermittent, but daily, primarily at night This is her chief complaint today 2. Left carpal tunnel syndrome, moderate-severe Symptoms intermittent, but daily, primarily at night. It is unclear if the patient had any numbness today in clinic, as she is a poor historian I educated her and her worker about this condition I discussed operative and non-operative treatment options The patient would like to proceed with surgery, beginning with the right side The risks and benefits of operative treatment were discussed with the patient and the patient wishes to proceed with surgery. These risks include, but are not limited to risk of damage to blood vessels, nerves, tendons, infection, recurrence, incomplete relief of preoperative symptoms, persistent pain, possible need for further surgery and the risks associated with regional blocks and anesthesia. The plan is to take the patient to the operating room sometime in the next few weeks for the following procedures: 1. Right carpal tunnel release, under local All of the preoperative paperwork including the consent was reviewed today. We spoke with Patricia Mg RN, a member of the nursing staff from her skilled nursing who said that the patient is able to sign consent forms for surgery. We spoke with her today by phone. We left the phone number for Patricia on the surgery sheet. All the patient's questions were answered. The patient understands that they will be contacted by our matchbook maker soon to schedule this procedure She denies Diabetes, blood thinners, asthma, heart, lung, kidney issues 3. Right Cubital tunnel syndrome 4. Left Cubital tunnel syndrome No complaints of small finger numbness today in clinic We will be reassessing for these symptoms after she has her carpal tunnel releases. 5. Bilateral hand pain Difficulty sleeping in a patient with intellectual disabilities & a poor historian Please note that greater than 30 minutes was spent with this patient going over the history, evaluating the patient and radiographs, formulating possible treatment options, discussing them with the patient, and documenting the visit. Scribed for Mirna Delong MD by Pastor Beyer, manager medical writing, on 06/11/24 at 9:40 AM, EST. Coding Level of Care Code Est Pt Level 5 (36508) Diagnoses Carpal tunnel syndrome of right wrist G56.01 Carpal tunnel syndrome of left wrist G56.02 Cubital tunnel syndrome on right G56.21 Cubital tunnel syndrome on left G56.22 Developmental delay, mild R62.50 Bilateral hand pain M79.641; M79.642
[2024-06-11 09:19] VITALS: BMI 26.2
== END 2024-06-11 10:04 | disposition home or self-care (01) ==
PROVIDERS: PCP Internal Medicine; Visit Provider Orthopaedic Surgery
DX: G56.03 Carpal tunnel syndrome, bilateral upper limbs (principal); G56.23 Lesion of ulnar nerve, bilateral upper limbs; R62.50 Unspecified lack of expected normal physiological development in childhood; M79.641 Pain in right hand; M79.642 Pain in left hand
CPT/HCPCS: 99214

== ENCOUNTER → 2024-06-11 09:17 | Outpatient (BNVA) | payer MEDICARE, MEDICAID, SELFPAY | PROVIDERS: PCP Internal Medicine; Visit Provider Orthopaedic Surgery | DX: G56.03 Carpal tunnel syndrome, bilateral upper limbs (principal); G56.23 Lesion of ulnar nerve, bilateral upper limbs; M79.641 Pain in right hand; M79.642 Pain in left hand; R62.50 Unspecified lack of expected normal physiological development in childhood | CPT/HCPCS: 99212 ==

== ENCOUNTER 2024-06-19 10:07 | Outpatient (REF) | payer MEDICARE, MEDICAID, SELFPAY ==
[2024-06-19 12:37] LABS: Free T4 (Free Thyroxine) 1.15 ng/dL (0.71-1.85); Thyroid Stimulating Hormone 1.66 uIU/mL (0.32-4.0)
== END 2024-06-19 10:08 | disposition home or self-care (01) ==
LOC: HO.LAB 10:07
PROVIDERS: PCP Internal Medicine; Visit Provider Internal Medicine Endocrinology, Diabetes & Metabolism
DX: E89.0 Postprocedural hypothyroidism (principal)
CPT/HCPCS: 36415; 84439; 84443

== ENCOUNTER 2024-06-24 | Outpatient (REF) | payer MEDICARE, MEDICAID, SELFPAY ==
[2024-06-25 10:41] LABS: Appearance Urine Clear; Color Urine Yellow; Glucose Urine UA Negative (Negative); Leukocyte Esterase Urine Trace (Negative); Nitrite Urine Negative (Negative); PH 6.5 (5.0-9.0); Specific Gravity - Urine 1.015 (1.005-1.025); UMIC TRIGGER UACC YES; Urine Blood Negative (Negative); Urine Ketones Negative (Negative); Urine Protein Negative (Neg-Trace)
[2024-06-25 11:11] LABS: Bacteria Urine None Seen (None Seen); Hyaline Casts Urine 0-2 /LPF (0-2); RBC Urine 0-2 /HPF (0-2); Squamous Epithelial Cell Urine 0-2 /HPF (0-2); WBC Urine 0-5 /HPF (0-5)
== END 2024-06-24 00:01 | disposition home or self-care (01) ==
LOC: HO.LNP
PROVIDERS: Visit Provider Internal Medicine
DX: R30.0 Dysuria (principal)
CPT/HCPCS: 81001; 87086

== ENCOUNTER 2024-07-03 10:38 | Emergency (ER) | payer MEDICARE, MEDICAID, SELFPAY ==
--- NOTE | ~2024-07-03 | XR_ITS ---
EXAMINATION: XR CHEST CLINICAL INFORMATION: Special instructions, COMPARISON: May 19, 2024 TECHNIQUE: 2 views of the chest were obtained. FINDINGS: There is no gross pneumothorax. Low lung volumes. Cardiomediastinal silhouette remains enlarged with similar prominence of the randolph and cardiomediastinal silhouette. There is no gross pneumothorax. Degenerative changes in the thoracic spine. No significant pleural effusion. Moderate left basilar opacities. Moderate left basilar opacities. Mild vascular prominence, possibly representing mild vascular congestion. No significant pleural effusion. XR/XR chest 2V IMPRESSION: Moderate left basilar opacities. Mild vascular prominence, possibly representing mild vascular congestion. No significant pleural effusion. Electronically signed by: Louann Gifford MD 07/03/2024 02:51 PM EDT
[2024-07-03 10:42] VITALS: BP 112/56; BP 130/70; PULSE 62; PULSE 68; RESP 18; TEMP 36.8; O2SAT 97; O2SAT 98; BMI 23.1
--- NOTE | 2024-07-03 10:48 | ED.GENADULT ---
HPI - General Adult General Chief complaint: Altered Mental Status Stated complaint: AMS X2W,?UTI,STRONG ODOR,FROM [facility] PER EMS Time Seen by Provider: 07/03/24 10:47 Source: patient and EMS Mode of arrival: EMS Limitations: no limitations History of Present Illness HPI narrative: 68 year old female past medical history of developmental delay from a [facility] who presents emergency department for questionable altered mental status UTI with strong order in the urine. Related Data Home Medications ?Medication ?Instructions ?Recorded ?Confirmed acetaminophen 500 mg tablet 500 mg PO Q4H PRN pain/fever 01/05/21 03/28/24 aspirin 81 mg tablet,delayed 81 mg PO DAILY 01/05/21 03/28/24 release carbamazepine 200 mg tablet 200 mg PO DAILY 01/05/21 03/28/24 carbamazepine 200 mg tablet 400 mg PO BEDTIME 01/05/21 03/28/24 loratadine 10 mg tablet 10 mg PO DAILY 01/05/21 03/28/24 multivitamin 1 tab PO DAILY 01/05/21 03/28/24 nystatin 100,000 unit/gram topical 1 appl topical BID PRN Rash 01/05/21 03/28/24 powder ibuprofen 400 mg tablet 400 mg PO TID PRN Pain 01/24/23 03/28/24 methyl salicylate 30 %-menthol 10 1 appl topical BID 01/24/23 03/28/24 % topical cream (Icy Hot) triamcinolone acetonide 0.1 % 1 appl topical BID PRN Skin 01/24/23 03/28/24 topical ointment Irritation dextromethorphan-guaifenesin 10 10 ml PO QID PRN Cough 05/10/23 03/28/24 mg-200 mg/5 mL oral liquid melatonin 10 mg tablet 10 mg PO BEDTIME 05/10/23 03/28/24 ferrous sulfate 325 mg (65 mg 325 mg PO MOWEFR 10/02/23 03/28/24 iron) tablet aripiprazole 5 mg tablet (Abilify) 5 mg PO DAILY 03/13/24 03/28/24 ascorbic acid (vitamin C) 500 mg 500 mg PO BID 03/13/24 03/28/24 tablet (Vitamin C) betamethasone dipropionate 0.05 % 1 appl topical BID PRN Dry areas 03/13/24 03/28/24 topical ointment on hand methenamine hippurate 1 gram tablet 1 g PO BID 03/13/24 03/28/24 olanzapine 15 mg tablet 15 mg PO BEDTIME 03/13/24 03/28/24 polyethylene glycol 3350 17 17 g PO DAILY PRN Constipation 03/13/24 03/28/24 gram/dose oral powder trazodone 50 mg tablet 50 mg PO BEDTIME 03/13/24 03/28/24 vibegron 75 mg tablet (Gemtesa) 75 mg PO DAILY 03/13/24 03/28/24 zinc oxide-vitamin B5-vit E 11.3% 1 appl topical BID Rash 03/13/24 03/28/24 topical cream (Balmex Adult Care) Previous Rx's ?Medication ?Instructions ?Recorded sennosides 8.6 mg tablet (Senna 8.6 mg PO BEDTIME PRN constipation 10/05/23 Lax) #30 tabs amoxicillin 875 mg-potassium 1 tab PO BID #14 tabs 03/18/24 clavulanate 125 mg tablet docusate sodium 100 mg capsule 100 mg PO BID PRN constipation #20 03/18/24 caps polyethylene glycol 3350 17 17 g PO DAILY PRN constipation 03/18/24 gram/dose oral powder (Miralax) #238 grams tamsulosin 0.4 mg capsule 0.4 mg PO DAILY #30 caps 03/18/24 nitrofurantoin 100 mg PO Q12H 7 days #14 caps 04/07/24 monohydrate/macrocrystals 100 mg capsule (Macrobid) cefuroxime axetil 250 mg tablet 250 mg PO BID 7 days #14 tabs 04/10/24 lactulose 10 gram/15 mL oral 10 g (15 mL) PO DAILY PRN laxative 04/11/24 solution effect #237 mL levofloxacin 500 mg tablet 500 mg PO DAILY #6 tabs 04/11/24 lactulose 10 gram/15 mL oral 10 g (15 mL) PO DAILY #237 mL 04/12/24 solution levothyroxine 200 mcg tablet 200 mcg PO QAM #30 tabs 05/09/24 amoxicillin 875 mg-potassium 1 tab PO BID #14 tabs 05/20/24 clavulanate 125 mg tablet cefuroxime axetil 500 mg tablet 500 mg PO BID 7 days #14 tabs 07/03/24 Allergies Allergy/AdvReac Type Severity Reaction Status Date / Time adhesive tape Allergy Intermediate itching Verified 07/03/24 10:45 and skin redness latex Allergy Intermediate skin rash Verified 07/03/24 10:45 and itching Seasonal Allergies Allergy Itching Verified 07/03/24 10:45 weed pollen Allergy stuffy nose Verified 07/03/24 10:45 DUST Allergy Unknown ITCHY/WATERY Uncoded 07/03/24 10:45 EYES surgical paper tape Allergy Unknown rash Uncoded 07/03/24 10:45 Tide Allergy Unknown rash Uncoded 07/03/24 10:45 [facility] Past Medical History Medical History Post-surgical hypothyroidism History of ESBL E. coli infection Toxic multinodular goiter Toxic multinodular goiter Vitamin D deficiency Hyperthyroidism Multinodular thyroid Colon cancer Lung mass Developmental delay, mild Arthritis Surgical History Hx of total thyroidectomy History of biopsy Hx of colonic polyps Hx of colonoscopy Family History Family History Father No problems noted. 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 Members: Other Household Members Other:: gr home Unable to assess alcohol history related to: Unknown Alcohol intake: never Patient Tobacco Use Status: Never used Tobacco Advance Directives: Yes Advance Directives on File: Yes Advance Directives Date on File: 01/05/21 Do you have a plan to hurt others: No Plan service: No Current occupational status: disabled Current occupation: right handed Physical Exam ED Vital Signs: Vital Signs - 24 hr 07/03/24 10:42 07/03/24 10:50 Temperature 98.3 F 98.3 F Pulse Rate 62 62 Respiratory Rate 18 18 Blood Pressure 112/56 L 112/56 L Pulse Oximetry 98 98 Oxygen Delivery Method Room Air Room Air BMI result Body Mass Index 23.1 Medications Administered Discontinued Medications Generic Name Dose Route Start Last Admin Trade Name Freq PRN Reason Stop Dose Admin Acetaminophen 650 mg 07/03/24 10:48 07/03/24 11:38 Acetaminophen 325 Mg Tablet PO 07/03/24 10:49 650 mg ONCE ONE Administration Sodium Chloride 1,000 mls @ 999 mls/hr 07/03/24 11:00 07/03/24 11:31 Ns IV 07/03/24 12:00 999 mls/hr .Q1H1M DANA Administration Medical Decision Making Lab Data 07/03/24 11:27 07/03/24 11:27 Labs: Lab Results 07/03/24 07/03/24 Range/Units 11:06 11:27 WBC 6.7 (4.8-10.8) X10*3/uL RBC 3.56 L (4.20-5.50) X10*6/uL Hgb 10.6 L (12.0-16.0) g/dl Hct 33.0 L (37.0-47.0) % MCV 92.7 (80.0-98.0) fL MCH 29.8 (27.0-33.0) pg MCHC 32.1 (31.0-35.0) g/dl RDW 12.5 (11.0-16.0) % Plt Count 275 (160-400) X10*3/uL MPV 8.7 L (9.4-12.3) fL Immature Gran % (Auto) 0.5 H (0.0-0.4) % Neut % (Auto) 69.2 (45-73) % Lymph % (Auto) 20.0 (20-40) % [place] % (Auto) 8.0 (2-11) % Eos % (Auto) 1.8 (0-4) % Baso % (Auto) 0.5 (0-2) % Lymph # (Auto) 1.3 (1.2-4.9) X10*3/uL [place] # (Auto) 0.5 (0.1-1.2) X10*3/uL Eos # (Auto) 0.1 (0.0-0.4) X10*3/uL Baso # (Auto) 0.0 (0.0-0.2) X10*3/uL Abs Immat Gran (auto) 0.03 (0.00-0.03) X10*3/uL Absolute Neuts (auto) 4.6 (2.0-8.3) x10*3/uL Absolute Nucleated RBC 0.000 (0.0-0.012) X10*3/uL Nucleated RBC % (auto) 0.0 (0.0-0.2) /100WBC Sodium 143 (135-145) mmol/L Potassium 4.2 (3.3-5.1) mmol/L Chloride 110 H (96-108) mmol/L Carbon Dioxide 25 (22-29) mmol/L Anion Gap 12 (12-20) BUN 35 H (9-16) mg/dL Creatinine 0.90 (0.5-1.4) mg/dL Estim Creat Clear Calc 46.6 Estimated GFR > 60 Random Glucose 87 (60-115) mg/dL Lactic Acid 0.3 L (0.5-2.0) mmol/L Calcium 8.9 (8.4-10.2) mg/dL Urine Color Dark Yellow Urine Appearance Turbid Urine pH 6.0 (5.0-9.0) Ur Specific [place] 1.015 (1.005-1.025) Urine Protein 30 (1+) H (Neg-Trace) mg/dL Urine Glucose (UA) Negative (Negative) mg/dL Urine Ketones Negative (Negative) mg/dL Urine Blood Large (3+) H (Negative) Urine Nitrite Negative (Negative) Ur Leukocyte Esterase Large (3+) H (Negative) Urine RBC >20 H (0-2) /HPF Urine WBC >50 H (0-5) /HPF Ur Squamous Epith Cells 6-10 (0-2) /HPF Urine Bacteria 4+ (None Seen) Hyaline Casts 0-2 (0-2) /LPF Discharge Plan Discharge Clinical Impression: Acute UTI Patient Disposition: Home, Self-Care Instructions: Urinary Tract Infection in Women (DC) Additional Instructions: You were seen today and found to have a bladder infection he was started on antibiotics please take as prescribed please call follow up with doctor as needed. Prescriptions: New cefuroxime axetil 500 mg tablet 500 mg PO BID 7 Days Qty: 14 0RF No Action levothyroxine 200 mcg tablet 200 mcg PO QAM Qty: 30 5RF Rx Instructions: 1 tab daily in the morning carbamazepine 200 mg tablet 200 mg PO DAILY carbamazepine 200 mg tablet 400 mg PO BEDTIME multivitamin Tablet 1 tab PO DAILY aspirin 81 mg Tablet,Delayed Release (Dr/Ec) 81 mg PO DAILY acetaminophen 500 mg Tablet 500 mg PO Q4H PRN (Reason: pain/fever) nystatin 100,000 unit/gram Powder 1 appl TOPICAL BID PRN (Reason: Rash) Rx Instructions: rash in skin folds loratadine 10 mg Tablet 10 mg PO DAILY triamcinolone acetonide 0.1 % ointment 1 appl topical BID PRN (Reason: Skin Irritation) ibuprofen 400 mg Tablet 400 mg PO TID PRN (Reason: Pain) Icy Hot 30-10 % Cream 1 appl TOPICAL BID Rx Instructions: to back and shoulders ferrous sulfate 325 mg (65 mg iron) Tablet 325 mg PO MOWEFR sennosides [Senna Lax] 8.6 mg Tablet 8.6 mg PO BEDTIME PRN (Reason: constipation) Qty: 30 0RF trazodone 50 mg tablet 50 mg PO BEDTIME olanzapine 15 mg tablet 15 mg PO BEDTIME betamethasone dipropionate 0.05 % ointment 1 appl topical BID PRN (Reason: Dry areas on hand) aripiprazole [Abilify] 5 mg Tablet 5 mg PO DAILY Gemtesa 75 mg tablet 75 mg PO DAILY methenamine hippurate 1 gram tablet 1 g PO BID ascorbic acid (vitamin C) [Vitamin C] 500 mg tablet 500 mg PO BID Balmex Adult Care 11.3 % Cream 1 appl TOPICAL BID Rx Instructions: apply to rash, groin, and buttocks polyethylene glycol 3350 17 gram/dose powder 17 g PO DAILY PRN (Reason: Constipation) amoxicillin-pot clavulanate 875-125 mg tablet 1 tab PO BID Qty: 14 0RF docusate sodium 100 mg Capsule 100 mg PO BID PRN (Reason: constipation) Qty: 20 0RF tamsulosin 0.4 mg Capsule 0.4 mg PO DAILY Qty: 30 0RF polyethylene glycol 3350 [Miralax] 17 gram/dose powder 17 g PO DAILY PRN (Reason: constipation) Qty: 238 0RF nitrofurantoin monohyd/m-cryst [Macrobid] 100 mg capsule 100 mg PO Q12H 7 Days Qty: 14 0RF Rx Instructions: must administer with a meal/food cefuroxime axetil 250 mg tablet 250 mg PO BID 7 Days Qty: 14 0RF levofloxacin 500 mg tablet 500 mg PO DAILY Qty: 6 0RF lactulose 10 gram/15 mL solution 10 g PO DAILY PRN (Reason: laxative effect) Qty: 237 0RF lactulose 10 gram/15 mL solution 10 g PO DAILY Qty: 237 0RF amoxicillin-pot clavulanate 875-125 mg tablet 1 tab PO BID Qty: 14 0RF dextromethorphan-guaifenesin 10-200 mg/5 mL Liquid 10 ml PO QID PRN (Reason: Cough) melatonin 10 mg Tablet 10 mg PO BEDTIME Print Language: Sinhala
[2024-07-03 10:50] VITALS: BP 112/56; PULSE 62; RESP 18; TEMP 36.8; O2SAT 98
--- NOTE | 2024-07-03 10:50 | PC.NURSE ---
Pt. incontinent in bed. Unable to get urine sample at this time.
[2024-07-03 11:14] LABS: Appearance Urine Turbid; Color Urine Dark Yellow; Glucose Urine UA Negative (Negative); Leukocyte Esterase Urine Large (3+) (Negative); Nitrite Urine Negative (Negative); Specific Gravity - Urine 1.015 (1.005-1.025); UMIC TRIGGER UACC YES; Urine Blood Large (3+) (Negative); Urine Ketones Negative (Negative); Urine Protein 30 (1+) mg/dL (Neg-Trace)
[2024-07-03] MEDS: 0.9 % Sodium Chloride 1,000 ML 999 ML IV (11:31)
[2024-07-03 11:32] LABS: MANUAL DIFF FLAG NO
[2024-07-03 11:33] LABS: Basophils Percent Auto 0.5 % (0-2); Eosinophils Absolute Auto 0.1 X10*3/uL (0.0-0.4); Eosinophils Percent Auto 1.8 % (0-4); Hemoglobin 10.6 g/dl (12.0-16.0); Imm Gran Abs Auto 0.03 X10*3/uL (0.00-0.03); Imm Gran Pct Auto 0.5 % (0.0-0.4); Lymphocytes Absolute Auto 1.3 X10*3/uL (1.2-4.9); Mean Corpuscular HGB Conc 32.1 g/dl (31.0-35.0); Mean Corpuscular Hemoglobin 29.8 pg (27.0-33.0); Mean Corpuscular Volume 92.7 fL (80.0-98.0); Mean Platelet Volume 8.7 fL (9.4-12.3); Monocytes Absolute Auto 0.5 X10*3/uL (0.1-1.2); Neutrophils Absolute Auto 4.6 x10*3/uL (2.0-8.3); Neutrophils Percent Auto 69.2 % (45-73); Platelet Count 275 X10*3/uL (160-400); Red Blood Count 3.56 X10*6/uL (4.20-5.50); Red Cell Distribution Width 12.5 % (11.0-16.0); White Blood Count 6.7 X10*3/uL (4.8-10.8)
[2024-07-03] MEDS: Acetaminophen 325 MG TABLET 650 MG PO (11:38)
[2024-07-03 11:42] LABS: Lactic Acid 0.3 mmol/L (0.5-2.0)
[2024-07-03 11:45] LABS: Anion Gap 12 (12-20); Blood Urea Nitrogen 35 mg/dL (9-16); Calcium 8.9 mg/dL (8.4-10.2); Carbon Dioxide 25 mmol/L (22-29); Chloride 110 mmol/L (96-108); Creatinine Clr Calc Pharmacy 46.6; Estimated Glomerular Filt Rate > 60; Glucose Random 87 mg/dL (60-115); Potassium 4.2 mmol/L (3.3-5.1); Sodium 143 mmol/L (135-145)
[2024-07-03 12:34] LABS: Bacteria Urine 4+ (None Seen); Hyaline Casts Urine 0-2 /LPF (0-2); RBC Urine >20 /HPF (0-2); UACC Culture Trigger YES; WBC Urine >50 /HPF (0-5)
[2024-07-03] MEDS: cefuroxime axetiL 500 MG TABLET PO (13:02)
== END 2024-07-03 12:40 | disposition home or self-care (01) ==
PROVIDERS: Emergency Provider Student in an Organized Health Care Education/Training Program; PCP Internal Medicine
DX: N39.0 Urinary tract infection, site not specified (principal)
CPT/HCPCS: 36415; 71046; 80048; 81001; 83605; 85025; 87086; 99284

== ENCOUNTER 2024-07-04 10:28 | Outpatient (REF) | payer MEDICARE, MEDICAID, SELFPAY ==
--- NOTE | ~2024-07-04 | MR_ITS ---
EXAMINATION: MR BRAIN WITHOUT CONTRAST CLINICAL INFORMATION: Disorder pituitary gland COMPARISON: None TECHNIQUE: Multiplanar multisequence MR imaging of the brain was obtained without intravenous contrast. Patient refused intravenous contrast. FINDINGS: The pituitary gland appears mildly enlarged for age with superior convex margin and maximal height of 9.5 mm. There is no mass effect on the optic apparatus with normal positioning of optic chiasm. There is no acute infarct on diffusion-weighted imaging. There is no intracranial hemorrhage on iron-sensitive imaging. No extra-axial collection or mass effect/herniation. Scattered periventricular and deep white matter T2 FLAIR hyperintensities consistent with mild underlying microangiopathy. No hydrocephalus. The ventricles are normal in morphology and size. The major flow voids at the skull base are preserved. The midline structures are otherwise normal. The cerebellar tonsils are normally positioned. The craniocervical junction is normal. Degenerative changes of the upper cervical spine. Marrow signal is within normal limits. Right maxillary sinus retention cyst. There is an incompletely assessed mass centered in the suprahyoid neck just below the skull base in the right carotid space measuring up to 3.0 x 2.4 centimeters in maximal axial dimensions. The mass anteromedially displaces the internal carotid artery and demonstrates heterogeneous T2 hyperintense signal with intralesional flow voids, most suspicious for a paraganglioma. Ill-defined subcutaneous lesion in the right parietal scalp near the vertex demonstrates heterogeneous T2 hyperintense signal and reduced diffusion (series 8 image 30, series 6 image 23-25) measuring up to 3 cm. No evidence of adjacent calvarial involvement which demonstrates normal marrow signal. MR/MR head/brain wo con IMPRESSION: Patient refused intravenous contrast. 1. Limited assessment of the pituitary gland in the absence of postcontrast sequences. The pituitary gland appears mildly enlarged for age with superior convex margin, which may reflect the presence of an underlying pituitary adenoma. 2. 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 Recommend further assessment with dedicated CT or MR imaging of the neck. 3. Nonspecific ill-defined mass in the subcutaneous right parietal scalp near the vertex demonstrating reduced diffusion, concerning for possible neoplastic process. Recommend direct inspection and further assessment with targeted ultrasound. As this exam was dictated after hours, a [place] junior systems administrator will contact the ordering provider with findings and recommendations at the start of the next business day. Electronically signed by: Ruslan Lim MD 07/08/2024 08:13 PM EDT RP
== END 2024-07-04 10:29 | disposition home or self-care (01) ==
LOC: HO.MRI 10:28
PROVIDERS: PCP Internal Medicine; Visit Provider Internal Medicine Endocrinology, Diabetes & Metabolism
DX: E23.6 Other disorders of pituitary gland (principal)
CPT/HCPCS: 70551

== ENCOUNTER 2024-07-10 16:25 | Outpatient (AMB) | payer MEDICARE, MEDICAID, SELFPAY ==
[2024-07-10 16:26] VITALS: BP 112/68; PULSE 70; BMI 23.4
--- NOTE | 2024-07-10 16:26 | A.OFFVIS_ITS ---
Vital Signs 07/10/24 16:26 Height 5 ft 2 in Weight 127 lb 13.89 oz BMI 23.4 BP 112/68 Blood Pressure Location Rt brachial Position Sitting Pulse 70 Pulse Source Pulse Oximeter Intake Visit Reasons: MRI results Intake Note: Patient present today for post surgical hypothyroidism and MRI Results Risk And Compliance Analytics Director Required: No Accompanied by: Other Relationship Allergies adhesive tape Allergy (Intermediate, Verified 07/03/24 10:45) itching and skin redness latex Allergy (Intermediate, Verified 07/03/24 10:45) skin rash and itching Seasonal Allergies Allergy (Verified 07/03/24 10:45) Itching weed pollen Allergy (Verified 07/03/24 10:45) stuffy nose DUST Allergy (Unknown, Uncoded 07/03/24 10:45) ITCHY/WATERY EYES surgical paper tape Allergy (Unknown, Uncoded 07/03/24 10:45) rash Tide Allergy (Unknown, Uncoded 07/03/24 10:45) rash Medication List - Last Reconciled 07/10/24 by Harvinder Welch MD acetaminophen 500 mg PO Q4H PRN amoxicillin-pot clavulanate 875-125 mg 1 tab PO BID amoxicillin-pot clavulanate 875-125 mg 1 tab PO BID aripiprazole (Abilify) 5 mg PO DAILY ascorbic acid (vitamin C) (Vitamin C) 500 mg PO BID aspirin 81 mg PO DAILY betamethasone dipropionate 0.05% 1 appl topical BID PRN carbamazepine 200 mg PO DAILY carbamazepine 400 mg PO BEDTIME cefuroxime axetil 250 mg PO BID 7 days cefuroxime axetil 500 mg PO BID 7 days dextromethorphan-guaifenesin 10-200 mg/5 mL 10 mL PO QID PRN docusate sodium 100 mg PO BID PRN ferrous sulfate 325 mg PO MOWEFR ibuprofen 400 mg PO TID PRN lactulose 10 grams (15 mL) PO DAILY PRN lactulose 10 grams (15 mL) PO DAILY levofloxacin 500 mg PO DAILY levothyroxine 200 mcg PO QAM loratadine 10 mg PO DAILY melatonin 10 mg PO BEDTIME methenamine hippurate 1 g PO BID methyl salicylate-menthol 30-10 % (Icy Hot) 1 appl topical BID multivitamin 1 tab PO DAILY nitrofurantoin monohyd/m-cryst 100 mg (Macrobid) 100 mg PO Q12H 7 days nystatin 1 appl topical BID PRN olanzapine 15 mg PO BEDTIME polyethylene glycol 3350 17 grams PO DAILY PRN polyethylene glycol 3350 (Miralax) 17 grams PO DAILY PRN sennosides (Senna Lax) 8.6 mg PO BEDTIME PRN tamsulosin 0.4 mg PO DAILY trazodone 50 mg PO BEDTIME triamcinolone acetonide 0.1% 1 appl topical BID PRN vibegron (Gemtesa) 75 mg PO DAILY zinc oxide-vitamin B5-vit E 11.3 % (Balmex Adult Care) 1 appl topical BID HPI Comments Details: 68 YO F with a significant psychiatric history who is seen in F/U for a toxic MNG. Today's visit talk about the abnormal MRI of the brain She underwent workup by her PCP due to weight loss. This revealed hyperthyroidism as well as multiple thyroid nodules. She was subsequently referred to Endocrinology. She reported weight loss of 30 lbs, unintentional over 3 months. She also reported frequent bowel movements, tremors and insomnia. Labs revealed subclinical hyperthyroidism. All antibodies were negative. Thyroid uptake and scan was completed 10/21/2022 and revealed 16% uptake at 4 hours and 47.4% uptake at 24 hours. This was in a heterogenous pattern consistent with a toxic MNG. She as started on methimazole 5 mg PO daily and TFTs are now WNL. She underwent an US head and neck which revealed multiple bilateral thyroid nodules. She presented for FNA biopsy of these nodules, but was unable to tolerate even the pressure from the ultrasound probe. Biopsy was aborted. She opted for a total thyroidectomy and referral was sent. She has an appointment scheduled with Dr. Valladares this June. Denies any history of head or neck irradiation. She does have a history of colon cancer but is now in remission. She did receive radiation therapy for this to her abdomen. Denies any family history of thyroid cancer. Thyroid US: 09/27/2022 Right Thyroid Lobe: 5.3 x 2.2 x 3.0 cm, volume 18.3 mL. Parenchyma: The gland echotexture is heterogeneous. Thyroid vascularity is increased. Left Thyroid Lobe: 4.4 x 2.5 x 1.5 cm, volume 8.6 mL. Parenchyma: The gland echotexture is heterogeneous. Thyroid vascularity is increased. Isthmus: 0.8 cm in maximum AP dimension. There are numerous small cysts and colloid cysts. Estimated total number of nodules greater than or equal to 1 cm: 2. Research Test Engine Operator nodules are described as follows: 1. Location: Right mid/lower pole. ?? ? Size: 4.7 x 2.4 x 2.6 cm, volume 15.4 mL. ?? ? Nodule characteristics: ?? ? Composition: Solid/almost completely solid (2). ?? ? Echogenicity: Isoechoic (1). ?? ? Shape: Not taller than wide (0). ?? ? Margins: Lobulated (2). ?? ? Echogenic Foci: Macrocalcifications (1). Punctate echogenic foci (3). ?? ? ACR TI-RADS total points: 9. ?? ? ACR TI-RADS category: 5. 2. Location: Left lower pole. ?? ? Size: 2.5 x 1.6 x 2.0 cm, volume 4.2 mL. ?? ? Nodule characteristics: ?? ? Composition: Mixed cystic and solid (1). ?? ? Echogenicity: Hypoechoic (2). ?? ? Shape: Not taller than wide (0). ?? ? Margins: Ill-defined (0). ?? ? Echogenic Foci: Punctate echogenic foci (3).? ACR TI-RADS total points: 6. ?? ? ACR TI-RADS category: 4. NODES: No lymphadenopathy is seen in the tissue surrounding the thyroid gland. Thyroid Uptake and Scan: 10/21/2022 FINDINGS: The uptake is 16.0% at 4 hours and 47.4% at 24 hours (Normal radioiodine uptake at 24 hours is 10% to 30%). The radioiodine uptake is moderately elevated. The radiopertechnetate thyroid scintigram shows the thyroid gland to be asymmetrical with the right lobe significantly larger than the left. There is heterogeneous distribution in both lobes. This is more pronounced on the left with a rounded focus of relatively decreased activity present in the upper pole and small rounded foci, probably at least 3 in the remainder the left lobe. In the right lobe there is a small focus of decreased activity medially in the mid pole but otherwise, although heterogeneous, no discrete focal abnormalities are present. NM/NM thyroid w uptake IMPRESSION: In the clinical setting of hyperthyroidism, these findings suggest either a very heterogeneous Graves' gland, possibly with a superimposed hypofunctioning (cold) nodule in the upper pole the left lobe, or multiple small functioning nodules, more prominently on the right, but this appearance most consistent with a toxic multinodular goiter. (Gardner's disease). The significant elevation of the radioiodine uptake is more suggestive of Graves' disease. If clinically relevant, these could be distinguished by the presence or absence of thyroid stimulating immunoglobulins. The radioiodine uptake is moderately elevated. Labs: Laboratory Tests 10/17/22 10/17/22 10/17/22 11:39 11:39 11:39 Albumin 3.7 25-OH Vitamin D Total 40.4 TSH 0.10 L Free T4 0.85 Total T3 100 Thyroid Stim Immunoglob <89 PTH Intact 60 Calcium (PTH Intact) 8.9 Thyroglobulin Antibody <1 Thyroid Peroxidase Ab 1 TSH Receptor Ab <1.00 Laboratory Tests 01/30/23 02:34 TSH 1.62 status post total thyroidectomy 10/18/2023 with benign pathology. Currently on 200 mcg levothyroxine for 2 wks MRI of the brain showed questionable enlargement of the pituitary gland but also had multiple other findings as below 1. Limited assessment of the pituitary gland in the absence of postcontrast sequences. The pituitary gland appears mildly enlarged for age with superior convex margin, which may reflect the presence of an underlying pituitary adenoma. 2. 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 Recommend further assessment with dedicated CT or MR imaging of the neck. 3. Nonspecific ill-defined mass in the subcutaneous right parietal scalp near the vertex demonstrating reduced diffusion, concerning for possible neoplastic process. Recommend direct inspection and further assessment with targeted ultrasound. As this exam was dictated after hours, a [place] higher education administrator will contact the ordering provider with findings and recommendations at the start of the next business day. PFSH Medical History Post-surgical hypothyroidism History of ESBL E. coli infection Toxic multinodular goiter Toxic multinodular goiter Vitamin D deficiency Hyperthyroidism Multinodular thyroid Colon cancer Lung mass Developmental delay, mild Arthritis Surgical History Hx of total thyroidectomy History of biopsy Hx of colonic polyps Hx of colonoscopy Family History Father No problems noted. Mother Medical history unknown Social History Household Members: Other Household Members Other:: gr home Unable to assess alcohol history related to: Unknown Alcohol intake: never Patient Tobacco Use Status: Never used Tobacco Advance Directives Date on File: 01/05/21 service: No Current occupational status: disabled Current occupation: right handed Physical Exam Vital Signs: Last Vital Signs Pulse 70 07/10/24 16:26 BP 112/68 07/10/24 16:26 BMI result Body Mass Index 23.4 Assessment & Plan Assessment & Plan (1) Abnormal MRI: Code(s): R93.89 - Abnormal findings on diagnostic imaging of other specified body structures Category: Medical Plan: Went over the abnormal findings on the MRI including possible enlarged pituitary gland other findings Plan is to check a prolactin fasting, 24 hour urine for free cortisol and creatinine, IGF-1, LH and FSH. I went over the other findings of the MRI with the patient's caregivers instructed them to make an appointment with her primary care provider to follow up the results. Orders: Orders IGF-1 (Somatomedin C) Today R93.89 - Abnormal findings on diagnostic imaging of other specified body structures Saliva Cortisol Today R93.89 - Abnormal findings on diagnostic imaging of other specified body structures Prolactin Today R93.89 - Abnormal findings on diagnostic imaging of other specified body structures Follicle Stimulating Hormone Today R93.89 - Abnormal findings on diagnostic imaging of other specified body structures Lutenizing Hormone Today R93.89 - Abnormal findings on diagnostic imaging of other specified body structures Coding Level of Care Code Est Pt Level 3 (97478) Diagnoses Abnormal MRI R93.89
== END 2024-07-10 16:59 | disposition home or self-care (01) ==
PROVIDERS: PCP Internal Medicine; Visit Provider Internal Medicine Endocrinology, Diabetes & Metabolism
DX: R93.89 Abnormal findings on diagnostic imaging of other specified body structures (principal)
CPT/HCPCS: 99213

== ENCOUNTER → 2024-07-10 16:25 | Outpatient (BNVA) | payer MEDICARE, MEDICAID, SELFPAY | PROVIDERS: PCP Internal Medicine; Visit Provider Internal Medicine Endocrinology, Diabetes & Metabolism | DX: R93.89 Abnormal findings on diagnostic imaging of other specified body structures (principal) | CPT/HCPCS: 99212 ==

== ENCOUNTER 2024-07-22 09:00 | Day surgery (SDC) | payer MEDICARE, MEDICAID, SELFPAY ==
--- NOTE | 2024-07-22 10:59 | MHC.SHP ---
Pre-Procedural Eval Section A - 24 Hr Update-Section A only Date of Service: 07/22/24 The patient is an INPATIENT: No Changes since office visit: No Cold of Flu in the past 2 weeks, No New Medical Problems, No Changes in Medication and No Patient answered all questions The patient has been examined within 24 hours of the surgical procedure. The History & Physical has been completed within 30 days and I have reviewed it.: Yes Section B - Complete if H&P > 30 days Chief Complaint: Carpal tunnel syndrome, right upper limb Allergies: Allergies Allergy/AdvReac Type Severity Reaction Status Date / Time adhesive tape Allergy Intermediate itching Verified 07/03/24 10:45 and skin redness latex Allergy Intermediate skin rash Verified 07/03/24 10:45 and itching Seasonal Allergies Allergy Itching Verified 07/03/24 10:45 weed pollen Allergy stuffy nose Verified 07/03/24 10:45 DUST Allergy Unknown ITCHY/WATERY Uncoded 07/03/24 10:45 EYES surgical paper tape Allergy Unknown rash Uncoded 07/03/24 10:45 Tide Allergy Unknown rash Uncoded 07/03/24 10:45 Plan Diagnosis/Plan: Unchanged I have reviewed the history and physical and performed a pertinent physical examination on my patient. No changes have occurred unless specified. Patient is apparently able to sign her own consent and did so. I also spoke with the healthcare proxy via telephone at the bedside and described risks and benefits with her. She also gave permission for the surgery via telephone, coordinated by our nurse Carly. Time Spent With Patient Time: Total time managing care of this patient today ____ minutes.
--- NOTE | 2024-07-22 11:04 | P.OP_ITS ---
Operative Note Operative Note Date of Service: 07/22/24 Narrative: Preop diagnosis: 1. Right Carpal tunnel syndrome Postop diagnosis: same Procedure: 1. Right Carpal tunnel release Surgeon: Mirna Delong MD Health Insurance Agent: None Anesthesia: local block using 1% lidocaine with epinephrine Findings: Thickened transverse carpal ligament. EBL: Less than 5 mL Specimens: None Complications: None Disposition: Brought to recovery room in stable condition Plan: Follow-up for 10-14 days for wound check and suture removal Indications: The patient is 68 years old with an intellectual disability, with right carpal tunnel syndrome that has been unresponsive to nonoperative management. The risks and benefits of operative treatment including but not limited to risk of damage to blood vessels, nerves, tendons, infection, persistent pain, persistent symptoms, or possible need for additional surgery were discussed with the patient and the patient wishes to proceed with surgery. Procedure: Once consent was obtained a local block was performed using a combination of 1% lidocaine with epinephrine. The patient was then brought back to the operating suite and placed on the operative table in supine position. The right upper extremity was prepped and draped in a standard surgical fashion. Once assured that we had a good block, a 2.0 cm longitudinal incision was made centered over the carpal tunnel. The incision was made through the skin to the subcutaneous tissues using a #15 blade. Dissection was made down to the level of the transverse carpal ligament with care being taken to protect the palmar cutaneous nerve. Once the transverse carpal ligament was clearly visualized, a longitudinal incision was made in the transverse carpal ligament 1st using a #15 blade, then using tenotomy scissors under direct visualization. Care was taken to look for and protect the motor branch of the median nerve when seen in this area. Once satisfied with our carpal tunnel release the wound was copiously irrigated with normal saline and hemostasis was obtained with a brief period of local pressure. The skin edges were reapproximated with some 5.0 nylon suture material and a sterile dressing was applied. The patient appears to have tolerated the procedure well and with no complications. All digits were well vascularized at the conclusion of the case.
== END 2024-07-22 12:17 | disposition home or self-care (01) ==
PROVIDERS: PCP Internal Medicine; Visit Provider Orthopaedic Surgery
PROC: (CPT 64721; principal; 2024-07-22 11:10)
DX: G56.01 Carpal tunnel syndrome, right upper limb (principal); R20.0 Anesthesia of skin; F81.9 Developmental disorder of scholastic skills, unspecified; L23.1 Allergic contact dermatitis due to adhesives; M79.641 Pain in right hand; G47.9 Sleep disorder, unspecified; Z91.040 Latex allergy status; Z98.890 Other specified postprocedural states
CPT/HCPCS: 64721; J0171; J2003

== ENCOUNTER → 2024-07-22 09:00 | Outpatient (BNV) | payer MEDICARE, MEDICAID, SELFPAY | PROVIDERS: PCP Internal Medicine; Visit Provider Orthopaedic Surgery | DX: G56.01 Carpal tunnel syndrome, right upper limb (principal) | CPT/HCPCS: 64721 ==

== ENCOUNTER 2024-07-31 09:44 | Outpatient (REF) | payer MEDICARE, MEDICAID, SELFPAY ==
[2024-08-01 18:18] LABS: Follicle Stimulating Hormone 127.9 mIU/mL; Lutenizing Hormone 49.4 mIU/mL; Prolactin 8.3 ng/mL
[2024-08-06 13:48] LABS: IGF-1 (Somatomedin C) 126 ng/mL (41-279); IGF-1 Z Score (Female) 0.3 SD (-2.0 - +2.0)
== END 2024-07-31 09:45 | disposition home or self-care (01) ==
LOC: HO.LAB 09:44
PROVIDERS: PCP Internal Medicine; Visit Provider Internal Medicine Endocrinology, Diabetes & Metabolism
DX: R93.89 Abnormal findings on diagnostic imaging of other specified body structures (principal)
CPT/HCPCS: 36415; 83001; 83002; 84146; 84305

== ENCOUNTER 2024-08-02 14:12 | Outpatient (AMB) | payer MEDICARE, MEDICAID, SELFPAY ==
--- NOTE | 2024-08-02 14:13 | MHC.OFFVIS ---
Intake Visit Reasons: PO-RT CTR 07/22/24 AR Intake Note: Kirsten is a 68 yo female who presents today with one of the workers from her [facility]. Patient s/p right CTR DOS 07/22/[address] Delong. Patient was brought in today due to concerns for infection on the incision that started about 4 days ago. Allergies adhesive tape Allergy (Intermediate, Verified 08/06/24 09:02) itching and skin redness latex Allergy (Intermediate, Verified 08/06/24 09:02) skin rash and itching Seasonal Allergies Allergy (Verified 08/06/24 09:02) Itching weed pollen Allergy (Verified 08/06/24 09:02) stuffy nose DUST Allergy (Unknown, Uncoded 08/06/24 09:02) ITCHY/WATERY EYES surgical paper tape Allergy (Unknown, Uncoded 08/06/24 09:02) rash Tide Allergy (Unknown, Uncoded 08/06/24 09:02) rash HPI HPI PO-RT CTR 07/22/24 AR: Details: Patient is a 68-year-old female with past medical history significant for significant developmental delay who presents for postoperative wound check status post carpal tunnel release, DOS 07/22/2024. The patient and the staff from the [facility] where she resides state that when the dressing was removed on the 5th day after surgery, they noticed a small area of redness, and this has progressively grown to the point where there is significant purulence noted at and around the incision site. Of note, the micrographics services supervisor of her facility called our practice earlier stating that there were multiple days where there were signs and symptoms of infection that the nurse did not report to her. Today, the patient reports that the area around the incision site is swollen, and there is still some purulence there. Patient does report that her numbness and tingling have resolved. No other acute complaints or concerns at this time. [facility] Medical History (Updated 08/06/24 @ 09:57 by Pastor Beyer) Abnormal MRI Post-surgical hypothyroidism History of ESBL E. coli infection Toxic multinodular goiter Toxic multinodular goiter Vitamin D deficiency Hyperthyroidism Multinodular thyroid Colon cancer Lung mass Developmental delay, mild Arthritis Surgical History Hx of total thyroidectomy History of biopsy Hx of colonic polyps Hx of colonoscopy Family History Father No problems noted. Mother Medical history unknown Social History Household Members: Other Household Members Other:: gr home Unable to assess alcohol history related to: Unknown Alcohol intake: never Patient Tobacco Use Status: Never used Tobacco Advance Directives Date on File: 01/05/21 service: No Current occupational status: disabled Current occupation: right handed Review of Systems Const All systems reviewed & are unremarkable except as noted in HPI and below Physical Exam Extrem Other: Patient is alert, oriented, and in no acute distress. Neuro: Normal sensation of the tips of all digits of the right hand at this time Vascular: Cap refill brisk Pain: Patient reports very significant tenderness to palpation about the incision site on the volar R wrist Patient reports no pain with range of motion testing of the right hand ROM: Patient is able to make a closed fist and extend all digits of the right hand fully Skin: Well-healing incision site noted, however there is a significant area of what appears to be purulence under the superficial layer of skin around the incision site However, after lancing and de sebastian this area, it was noted that there is only a small amount of liquid purulence under the skin, and the contents of this area are more along the lines of fibrinous exudate There is moderate edema and very mild erythema surrounding this area. Psych: Appears grossly normal Affect normal Attitude cooperative Assessment & Plan Assessment & Plan (1) Carpal tunnel syndrome of right wrist: Code(s): G56.01 - Carpal tunnel syndrome, right upper limb Category: Medical Plan 1. Infection around incision site status post right carpal tunnel release DOS 07/22/2024 Patient is educated about her current postoperative condition Small needle used to de roof area of purulence, and a small amount of liquid purulence able to be drain, however this appears to be mostly fibrinous exudate Patient is written a script for Augmentin to be taken twice a day for 7 days Patient is also advised that she should keep the incision site dressed, clean, dry, intact until follow-up Patient is also educated she should soak the hand in half-strength peroxide and water to encourage drainage of any remaining purulence Patient and staff from [facility] express understanding of this Patient will follow-up next week with Dr. Delong for wound check, sooner with any acute concerns Medications: New amoxicillin-pot clavulanate 875-125 mg 1 tab PO BID 20 tabs 0RF 10 days Coding Level of Care Code Global (74452) Diagnoses Carpal tunnel syndrome of right wrist G56.01
== END 2024-08-02 15:26 | disposition home or self-care (01) ==
LOC: HO.HOS 14:13
PROVIDERS: PCP Internal Medicine
DX: G56.01 Carpal tunnel syndrome, right upper limb (principal)
CPT/HCPCS: 99024

== ENCOUNTER → 2024-08-02 14:12 | Outpatient (BNVA) | payer MEDICARE, MEDICAID, SELFPAY | PROVIDERS: PCP Internal Medicine | DX: G56.01 Carpal tunnel syndrome, right upper limb (principal) | CPT/HCPCS: 99212 ==

== ENCOUNTER 2024-08-06 08:56 | Outpatient (AMB) | payer MEDICARE, MEDICAID, SELFPAY ==
[2024-08-06 09:01] VITALS: BMI 23.4
--- NOTE | 2024-08-06 09:01 | MHC.OFFVIS ---
Vital Signs 08/06/24 09:01 Height 5 ft 2 in Weight 127 lb 13 oz BMI 23.4 Intake Visit Reasons: PO-Rt CTR 07/22/24 AR Allergies adhesive tape Allergy (Intermediate, Verified 08/06/24 09:02) itching and skin redness latex Allergy (Intermediate, Verified 08/06/24 09:02) skin rash and itching Seasonal Allergies Allergy (Verified 08/06/24 09:02) Itching weed pollen Allergy (Verified 08/06/24 09:02) stuffy nose DUST Allergy (Unknown, Uncoded 08/06/24 09:02) ITCHY/WATERY EYES surgical paper tape Allergy (Unknown, Uncoded 08/06/24 09:02) rash Tide Allergy (Unknown, Uncoded 08/06/24 09:02) rash PFSH Medical History (Updated 07/10/24 @ 16:36 by Harvinder Welch MD) Abnormal MRI Post-surgical hypothyroidism History of ESBL E. coli infection Toxic multinodular goiter Toxic multinodular goiter Vitamin D deficiency Hyperthyroidism Multinodular thyroid Colon cancer Lung mass Developmental delay, mild Arthritis Surgical History Hx of total thyroidectomy History of biopsy Hx of colonic polyps Hx of colonoscopy Family History Father No problems noted. Mother Medical history unknown Social History Household Members: Other Household Members Other:: gr home Unable to assess alcohol history related to: Unknown Alcohol intake: never Patient Tobacco Use Status: Never used Tobacco Advance Directives Date on File: 01/05/21 service: No Current occupational status: disabled Current occupation: right handed Physical Exam Vital Signs: BMI result Body Mass Index 23.4 Coding
--- NOTE | 2024-08-06 09:01 | MHC.OFFVIS ---
Vital Signs 08/06/24 09:01 Height 5 ft 2 in Weight 127 lb 13 oz BMI 23.4 Intake Visit Reasons: PO-Rt CTR 07/22/24 AR Intake Note: Kirsten is a 68 yo right hand dominant female, accompanied by a residential staff, presents today post operatively s/p right CTR done 07/22/[address] Delong. Patient reports she is doing well. Denies numbness, tingling, or finger locking. Staff member unsure if patient continues to take her antibiotics. Allergies adhesive tape Allergy (Intermediate, Verified 08/06/24 09:02) itching and skin redness latex Allergy (Intermediate, Verified 08/06/24 09:02) skin rash and itching Seasonal Allergies Allergy (Verified 08/06/24 09:02) Itching weed pollen Allergy (Verified 08/06/24 09:02) stuffy nose DUST Allergy (Unknown, Uncoded 08/06/24 09:02) ITCHY/WATERY EYES surgical paper tape Allergy (Unknown, Uncoded 08/06/24 09:02) rash Tide Allergy (Unknown, Uncoded 08/06/24 09:02) rash HPI HPI PO-Rt CTR 07/22/24 AR: Details: Kirsten is a 68 year old right hand dominant woman who returns for a wound check S/P right carpal tunnel release, DOS: 07/22/24. She has a developmental delay/intellectual disability and was seen with a helper today. She lives in a long-term. She was seen 4 days ago and was noted to have a suture abscess with superficial purulence about the incision site. It appears that her dressing likely had gotten wet and was kept that way for an extended period of time. The sutures are removed and superficial abscess blister on removed. She was placed on oral antibiotics with daily wound care. She says she is doing much better and her sensation is now normal. She says she has been taking her Abx as instructed, and she is doing well. The staff member present cannot confirm for sure if she has been taking her Abx. She says this is being washed daily and being kept clean & dry. [facility] Medical History (Updated 08/06/24 @ 09:57 by Pastor Beyer) Abnormal MRI Post-surgical hypothyroidism History of ESBL E. coli infection Toxic multinodular goiter Toxic multinodular goiter Vitamin D deficiency Hyperthyroidism Multinodular thyroid Colon cancer Lung mass Developmental delay, mild Arthritis Surgical History Hx of total thyroidectomy History of biopsy Hx of colonic polyps Hx of colonoscopy Family History Father No problems noted. Mother Medical history unknown Social History Household Members: Other Household Members Other:: gr home Unable to assess alcohol history related to: Unknown Alcohol intake: never Patient Tobacco Use Status: Never used Tobacco Advance Directives Date on File: 01/05/21 service: No Current occupational status: disabled Current occupation: right handed Physical Exam Vital Signs: BMI result Body Mass Index 23.4 Extrem Other: Evaluation of Right Upper Extremity: The patient is alert, oriented, and in no acute distress She has an intellectual handicap but was able to actively participate in her appointment today. She is a poor historian Neuro: Sensation intact to the median nerve distribution of the right hand No thenar or intrinsic wasting Vascular: Cap refill brisk ROM: She can make a fist and extend all her digits The incision site appears to be healing well. No purulence or drainage from the incision site Mild swelling and resolving erythema but no tenderness. She can easily make a fist and extend all of her digits without discomfort. Nerve Conduction Study: IMPRESSION: 1. This is an abnormal study. 2. There is electrodiagnostic evidence for bilateral moderate-severe median neuropathy at the wrist, consistent with carpal tunnel syndrome. 3. There is electrodiagnostic evidence for bilateral ulnar neuropathy at the elbow. 4. There is no electrodiagnostic evidence for brachial plexopathy, or cervical radiculopathy. Marylin Burgess MD, HITESH 03/06/24 Assessment & Plan Assessment & Plan (1) Carpal tunnel syndrome of right wrist: Code(s): G56.01 - Carpal tunnel syndrome, right upper limb Category: Medical (2) Cubital tunnel syndrome on right: Code(s): G56.21 - Lesion of ulnar nerve, right upper limb Category: Medical (3) Developmental delay, mild: Code(s): R62.50 - Unspecified lack of expected normal physiological development in childhood Category: Medical (4) Postoperative infection: Code(s): T81.40XA - Infection following a procedure, unspecified, initial encounter Category: Medical Plan Assessment & Plan: 1. Right carpal tunnel syndrome, S/P release DOS: 07/02/24 Pre-operative symptoms intermittent, but daily, primarily at night Now with normal sensation She had developed a significant suture abscess after the wound had been kept wet and the dressing not changed. This appears to have improved significantly this past few days with proper wound care and oral antibiotics. The patient appears to be doing well post-operatively I educated her about the post-operative course She will continue to take her PO Augmentin as instructed I discussed activity modifications, she will perform gentle ROM exercises at home She will wash this daily with soap & water She should gently massage about the incision site to reduce the risk of hypersensitivity She will follow up in next week for a wound check to assure that she is doing well, because of her intellectual disability and because she has in her long-term situation.. This can be done with PAYTON Barrientos 2. Left carpal tunnel syndrome, moderate-severe Symptoms intermittent, but daily, primarily at night. It is unclear if the patient had any numbness today in clinic, as she is a poor historian 3. Right Cubital tunnel syndrome 4. Left Cubital tunnel syndrome No complaints of small finger numbness today in clinic We will be reassessing for these symptoms after she has her carpal tunnel releases. 5. Bilateral hand pain Difficulty sleeping in a patient with intellectual disabilities & a poor historian Scribed for Mirna Delong MD by Pastor Beyer, manager medical device, on 08/06/24 at 9:55 AM, EST. Coding Level of Care Code Global (68917) Diagnoses Carpal tunnel syndrome of right wrist G56.01 Cubital tunnel syndrome on right G56.21 Developmental delay, mild R62.50 Postoperative infection T81.40XA
== END 2024-08-06 10:01 | disposition home or self-care (01) ==
LOC: HO.HOS 08:56
PROVIDERS: PCP Internal Medicine; Visit Provider Orthopaedic Surgery
DX: G56.01 Carpal tunnel syndrome, right upper limb (principal); G56.21 Lesion of ulnar nerve, right upper limb; R62.50 Unspecified lack of expected normal physiological development in childhood; T81.40XA Infection following a procedure, unspecified, initial encounter
CPT/HCPCS: 99024

== ENCOUNTER → 2024-08-06 08:56 | Outpatient (BNVA) | payer MEDICARE, MEDICAID, SELFPAY | PROVIDERS: PCP Internal Medicine; Visit Provider Orthopaedic Surgery | DX: G56.01 Carpal tunnel syndrome, right upper limb (principal); G56.21 Lesion of ulnar nerve, right upper limb; T81.40XA Infection following a procedure, unspecified, initial encounter; R62.50 Unspecified lack of expected normal physiological development in childhood | CPT/HCPCS: 99212 ==

== ENCOUNTER 2024-08-13 09:35 | Outpatient (AMB) | payer MEDICARE, MEDICAID, SELFPAY ==
--- NOTE | 2024-08-13 09:35 | A.OFFVIS_ITS ---
Vital Signs 08/13/24 09:36 Height 5 ft 2 in Weight 127 lb BMI 23.2 Intake Visit Reasons: PO-Rt CTR 07/22/24 AR-wound check 1 WK Intake Note: Kirsten is a 68 year old right hand dominant female, accompanied by a residential staff, presents today post operatively for a wound check s/p right Carpal Tunnel Release DOS: 07/22/[address] Delong. Patient reports that she is having no pain and is doing well Allergies adhesive tape Allergy (Intermediate, Verified 08/06/24 09:02) itching and skin redness latex Allergy (Intermediate, Verified 08/06/24 09:02) skin rash and itching Seasonal Allergies Allergy (Verified 08/06/24 09:02) Itching weed pollen Allergy (Verified 08/06/24 09:02) stuffy nose DUST Allergy (Unknown, Uncoded 08/06/24 09:02) ITCHY/WATERY EYES surgical paper tape Allergy (Unknown, Uncoded 08/06/24 09:02) rash Tide Allergy (Unknown, Uncoded 08/06/24 09:02) rash HPI HPI PO-Rt CTR 07/22/24 AR-wound check 1 WK: Details: Kirsten is a 68 year old right hand dominant woman who returns for a wound check S/P right carpal tunnel release, DOS: 07/22/24. She has a developmental delay/intellectual disability and was seen with a helper today. She lives in a senior living. She was seen 4 days ago and was noted to have a suture abscess with superficial purulence about the incision site. It appears that her dressing likely had gotten wet and was kept that way for an extended period of time. The sutures are removed and superficial abscess blister on removed. She was placed on oral antibiotics with daily wound care. She says she is doing much better and her sensation is now normal. She says she has been taking her Abx as instructed, and she is doing well. The staff member present cannot confirm for sure if she has been taking her Abx. She says this is being washed daily and being kept clean & dry. [facility] Medical History (Updated 08/06/24 @ 09:57 by Pastor Beyer) Abnormal MRI Post-surgical hypothyroidism History of ESBL E. coli infection Toxic multinodular goiter Toxic multinodular goiter Vitamin D deficiency Hyperthyroidism Multinodular thyroid Colon cancer Lung mass Developmental delay, mild Arthritis Surgical History Hx of total thyroidectomy History of biopsy Hx of colonic polyps Hx of colonoscopy Family History Father No problems noted. Mother Medical history unknown Social History Household Members: Other Household Members Other:: gr home Unable to assess alcohol history related to: Unknown Alcohol intake: never Patient Tobacco Use Status: Never used Tobacco Advance Directives Date on File: 01/05/21 service: No Current occupational status: disabled Current occupation: right handed Review of Systems Const All systems reviewed & are unremarkable except as noted in HPI and below Physical Exam Vital Signs: BMI result Body Mass Index 23.2 Extrem Other: Evaluation of Right Upper Extremity: The patient is alert, oriented, and in no acute distress She has an intellectual handicap but was able to actively participate in her appointment today. She is a poor historian Neuro: Sensation intact to the median nerve distribution of the right hand No thenar or intrinsic wasting Vascular: Cap refill brisk ROM: She can make a fist and extend all her digits The incision site appears to be healing well. No purulence or drainage from the incision site Mild swelling and resolving erythema but no tenderness. She can easily make a fist and extend all of her digits without discomfort. Nerve Conduction Study: IMPRESSION: 1. This is an abnormal study. 2. There is electrodiagnostic evidence for bilateral moderate-severe median neuropathy at the wrist, consistent with carpal tunnel syndrome. 3. There is electrodiagnostic evidence for bilateral ulnar neuropathy at the elbow. 4. There is no electrodiagnostic evidence for brachial plexopathy, or cervical radiculopathy. Marylin Burgess MD, HITESH 03/06/24 Assessment & Plan Assessment & Plan (1) Carpal tunnel syndrome of right wrist: Code(s): G56.01 - Carpal tunnel syndrome, right upper limb Category: Medical (2) Cubital tunnel syndrome on right: Code(s): G56.21 - Lesion of ulnar nerve, right upper limb Category: Medical (3) Developmental delay, mild: Code(s): R62.50 - Unspecified lack of expected normal physiological development in childhood Category: Medical (4) Postoperative infection: Code(s): T81.40XA - Infection following a procedure, unspecified, initial encounter Category: Medical Plan 1. Right carpal tunnel syndrome, S/P release DOS: 07/02/24 Pre-operative symptoms intermittent, but daily, primarily at night Now with normal sensation She had developed a significant suture abscess after the wound had been kept wet and the dressing not changed. This appears to have improved significantly this past few days with proper wound care and oral antibiotics. The patient appears to be doing well post-operatively I educated her about the post-operative course She will continue to take her PO Augmentin as instructed I discussed activity modifications, she will perform gentle ROM exercises at home She will wash this daily with soap & water She should gently massage about the incision site to reduce the risk of hypersensitivity She will follow up in next week for a wound check to assure that she is doing well with me while AR is in office Medications: Refilled amoxicillin-pot clavulanate 875-125 mg 1 tab PO BID 20 tabs 0RF 10 days Coding Level of Care Code Global (58110) Diagnoses Carpal tunnel syndrome of right wrist G56.01 Cubital tunnel syndrome on right G56.21 Developmental delay, mild R62.50 Postoperative infection T81.40XA
[2024-08-13 09:36] VITALS: BMI 23.2
== END 2024-08-13 09:53 | disposition home or self-care (01) ==
PROVIDERS: PCP Internal Medicine
DX: G56.01 Carpal tunnel syndrome, right upper limb (principal); G56.21 Lesion of ulnar nerve, right upper limb; R62.50 Unspecified lack of expected normal physiological development in childhood; T81.40XA Infection following a procedure, unspecified, initial encounter
CPT/HCPCS: 99024

== ENCOUNTER → 2024-08-13 09:35 | Outpatient (BNVA) | payer MEDICARE, MEDICAID, SELFPAY | PROVIDERS: PCP Internal Medicine | DX: T81.40XA Infection following a procedure, unspecified, initial encounter (principal); Z48.811 Encounter for surgical aftercare following surgery on the nervous system; X58.XXXA Exposure to other specified factors, initial encounter; Z98.890 Other specified postprocedural states | CPT/HCPCS: 99212 ==

== ENCOUNTER 2024-08-15 11:17 | Outpatient (AMB) | payer MEDICARE, MEDICAID, SELFPAY ==
--- NOTE | 2024-08-15 11:21 | MHC.OFFVIS ---
Vital Signs 08/15/24 11:27 Height 5 ft 2 in Weight 131 lb 9.855 oz BMI 24.1 BP 110/58 L Blood Pressure Location Rt brachial Position Sitting Pulse 72 Pulse Source Pulse Oximeter Intake Visit Reasons: f/u for postsurgical hypothyroidism Intake Note: Patient present today for post surgical hypothyroidism follow up visit. Personnel Specialist Required: No Accompanied by: Marla Allergies adhesive tape Allergy (Intermediate, Verified 08/15/24 11:29) itching and skin redness latex Allergy (Intermediate, Verified 08/15/24 11:29) skin rash and itching Seasonal Allergies Allergy (Verified 08/15/24 11:29) Itching weed pollen Allergy (Verified 08/15/24 11:29) stuffy nose DUST Allergy (Unknown, Uncoded 08/15/24 11:29) ITCHY/WATERY EYES surgical paper tape Allergy (Unknown, Uncoded 08/15/24 11:29) rash Tide Allergy (Unknown, Uncoded 08/15/24 11:29) rash Medication List - Last Reconciled 08/15/24 by Harvinder Welch MD acetaminophen 500 mg PO Q4H PRN amoxicillin-pot clavulanate 875-125 mg 1 tab PO BID 10 days aripiprazole (Abilify) 5 mg PO DAILY ascorbic acid (vitamin C) (Vitamin C) 500 mg PO BID aspirin 81 mg PO DAILY betamethasone dipropionate 0.05% 1 appl topical BID PRN carbamazepine 400 mg PO BEDTIME cefuroxime axetil 500 mg PO BID 7 days docusate sodium 100 mg PO BID PRN ferrous sulfate 325 mg PO MOWEFR ibuprofen 400 mg PO TID PRN levothyroxine 200 mcg PO QAM loratadine 10 mg PO DAILY melatonin 10 mg PO BEDTIME methenamine hippurate 1 g PO BID methyl salicylate-menthol 30-10 % (Icy Hot) 1 appl topical BID multivitamin 1 tab PO DAILY nitrofurantoin monohyd/m-cryst 100 mg (Macrobid) 100 mg PO Q12H 7 days nystatin 1 appl topical BID PRN olanzapine 15 mg PO BEDTIME polyethylene glycol 3350 17 grams PO DAILY PRN polyethylene glycol 3350 (Miralax) 17 grams PO DAILY PRN sennosides (Senna Lax) 8.6 mg PO BEDTIME PRN tamsulosin 0.4 mg PO DAILY trazodone 50 mg PO BEDTIME triamcinolone acetonide 0.1% 1 appl topical BID PRN vibegron (Gemtesa) 75 mg PO DAILY zinc oxide-vitamin B5-vit E 11.3 % (Balmex Adult Care) 1 appl topical BID HPI Comments Details: 68 YO F with a significant psychiatric history who is seen in F/U for a toxic MNG. She underwent workup by her PCP due to weight loss. This revealed hyperthyroidism as well as multiple thyroid nodules. She was subsequently referred to Endocrinology. She reported weight loss of 30 lbs, unintentional over 3 months. She also reported frequent bowel movements, tremors and insomnia. Labs revealed subclinical hyperthyroidism. All antibodies were negative. Thyroid uptake and scan was completed 10/21/2022 and revealed 16% uptake at 4 hours and 47.4% uptake at 24 hours. This was in a heterogenous pattern consistent with a toxic MNG. She as started on methimazole 5 mg PO daily and TFTs are now WNL. She underwent an US head and neck which revealed multiple bilateral thyroid nodules. She presented for FNA biopsy of these nodules, but was unable to tolerate even the pressure from the ultrasound probe. Biopsy was aborted. She opted for a total thyroidectomy and referral was sent. She has an appointment scheduled with Dr. Valladares this June. Denies any history of head or neck irradiation. She does have a history of colon cancer but is now in remission. She did receive radiation therapy for this to her abdomen. Denies any family history of thyroid cancer. Thyroid US: 09/27/2022 Right Thyroid Lobe: 5.3 x 2.2 x 3.0 cm, volume 18.3 mL. Parenchyma: The gland echotexture is heterogeneous. Thyroid vascularity is increased. Left Thyroid Lobe: 4.4 x 2.5 x 1.5 cm, volume 8.6 mL. Parenchyma: The gland echotexture is heterogeneous. Thyroid vascularity is increased. Isthmus: 0.8 cm in maximum AP dimension. There are numerous small cysts and colloid cysts. Estimated total number of nodules greater than or equal to 1 cm: 2. Social Studies Teacher nodules are described as follows: 1. Location: Right mid/lower pole. ?? ? Size: 4.7 x 2.4 x 2.6 cm, volume 15.4 mL. ?? ? Nodule characteristics: ?? ? Composition: Solid/almost completely solid (2). ?? ? Echogenicity: Isoechoic (1). ?? ? Shape: Not taller than wide (0). ?? ? Margins: Lobulated (2). ?? ? Echogenic Foci: Macrocalcifications (1). Punctate echogenic foci (3). ?? ? ACR TI-RADS total points: 9. ?? ? ACR TI-RADS category: 5. 2. Location: Left lower pole. ?? ? Size: 2.5 x 1.6 x 2.0 cm, volume 4.2 mL. ?? ? Nodule characteristics: ?? ? Composition: Mixed cystic and solid (1). ?? ? Echogenicity: Hypoechoic (2). ?? ? Shape: Not taller than wide (0). ?? ? Margins: Ill-defined (0). ?? ? Echogenic Foci: Punctate echogenic foci (3).? ACR TI-RADS total points: 6. ?? ? ACR TI-RADS category: 4. NODES: No lymphadenopathy is seen in the tissue surrounding the thyroid gland. Thyroid Uptake and Scan: 10/21/2022 FINDINGS: The uptake is 16.0% at 4 hours and 47.4% at 24 hours (Normal radioiodine uptake at 24 hours is 10% to 30%). The radioiodine uptake is moderately elevated. The radiopertechnetate thyroid scintigram shows the thyroid gland to be asymmetrical with the right lobe significantly larger than the left. There is heterogeneous distribution in both lobes. This is more pronounced on the left with a rounded focus of relatively decreased activity present in the upper pole and small rounded foci, probably at least 3 in the remainder the left lobe. In the right lobe there is a small focus of decreased activity medially in the mid pole but otherwise, although heterogeneous, no discrete focal abnormalities are present. 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 The significant elevation of the radioiodine uptake is more suggestive of Graves' disease. If clinically relevant, these could be distinguished by the presence or absence of thyroid stimulating immunoglobulins. The radioiodine uptake is moderately elevated. Labs: Laboratory Tests 10/17/22 10/17/22 10/17/22 11:39 11:39 11:39 Albumin 3.7 25-OH Vitamin D Total 40.4 TSH 0.10 L Free T4 0.85 Total T3 100 Thyroid Stim Immunoglob <89 PTH Intact 60 Calcium (PTH Intact) 8.9 Thyroglobulin Antibody <1 Thyroid Peroxidase Ab 1 TSH Receptor Ab <1.00 Laboratory Tests 01/30/23 02:34 TSH 1.62 status post total thyroidectomy 10/18/2023 with benign pathology. Currently on 200 mcg levothyroxine for 2 wks [facility] Medical History (Updated 08/06/24 @ 09:57 by Pastor Beyer) Abnormal MRI Post-surgical hypothyroidism History of ESBL E. coli infection Toxic multinodular goiter Toxic multinodular goiter Vitamin D deficiency Hyperthyroidism Multinodular thyroid Colon cancer Lung mass Developmental delay, mild Arthritis Surgical History History of carpal tunnel surgery of right wrist Hx of total thyroidectomy History of biopsy Hx of colonic polyps Hx of colonoscopy Family History Father No problems noted. Mother Medical history unknown Social History Household Members: Other Household Members Other:: gr home Unable to assess alcohol history related to: Unknown Alcohol intake: never Patient Tobacco Use Status: Never used Tobacco Advance Directives Date on File: 01/05/21 service: No Current occupational status: disabled Current occupation: right handed Physical Exam Vital Signs: Last Vital Signs Pulse 72 08/15/24 11:27 BP 110/58 L 08/15/24 11:27 BMI result Body Mass Index 24.1 Const Other: Healing scar status post thyroidectomy Assessment & Plan Assessment & Plan (1) Post-surgical hypothyroidism: Code(s): E89.0 - Postprocedural hypothyroidism Category: Medical Plan: This is a 68-year-old white female status post total thyroidectomy for multinodular goiter with benign pathology. She is currently on levothyroxine 200 mcg appears to be clinically euthyroidand biochemically euthyroid Plan is to continue current therapy. In terms of the thyroid, patient can follow up with the primary care provider and returned back to endocrinology as needed Coding Level of Care Code Est Pt Level 3 (82639) Diagnoses Post-surgical hypothyroidism E89.0
[2024-08-15 11:27] VITALS: BP 110/58; PULSE 72; BMI 24.1
== END 2024-08-15 11:59 | disposition home or self-care (01) ==
PROVIDERS: PCP Internal Medicine; Visit Provider Internal Medicine Endocrinology, Diabetes & Metabolism
DX: E89.0 Postprocedural hypothyroidism (principal)
CPT/HCPCS: 99213

== ENCOUNTER → 2024-08-15 11:17 | Outpatient (BNVA) | payer MEDICARE, MEDICAID, SELFPAY | PROVIDERS: PCP Internal Medicine; Visit Provider Internal Medicine Endocrinology, Diabetes & Metabolism | DX: E89.0 Postprocedural hypothyroidism (principal) | CPT/HCPCS: 99212 ==

== ENCOUNTER 2024-08-20 13:55 | Outpatient (AMB) | payer MEDICARE, MEDICAID, SELFPAY ==
--- NOTE | 2024-08-20 14:10 | A.OFFVIS_ITS ---
Vital Signs 08/20/24 14:12 Height 5 ft 2 in Weight 131 lb BMI 24.0 Intake Visit Reasons: PO-Rt CTR 07/22/24 AR-wound check 1 WK Intake Note: Kirsten is a 68 year old right hand dominant female, accompanied by a residential staff, presents today post operatively for a wound check s/p right Carpal Tunnel Release DOS: 07/22/[address] Delong. She received a refill on her antibiotics at her last visit. Patient expresses her hand feels okay. She denies pain, numbness and tingling. Allergies adhesive tape Allergy (Intermediate, Verified 08/20/24 14:12) itching and skin redness latex Allergy (Intermediate, Verified 08/20/24 14:12) skin rash and itching Seasonal Allergies Allergy (Verified 08/20/24 14:12) Itching weed pollen Allergy (Verified 08/20/24 14:12) stuffy nose DUST Allergy (Unknown, Uncoded 08/20/24 14:12) ITCHY/WATERY EYES surgical paper tape Allergy (Unknown, Uncoded 08/20/24 14:12) rash Tide Allergy (Unknown, Uncoded 08/20/24 14:12) rash HPI HPI PO-Rt CTR 07/22/24 AR-wound check 1 WK: Details: Patient is a 68-year-old female with past medical history significant for developmental delay who presents for evaluation status post right carpal tunnel release, DOS 07/22/2024. Today, the patient reports that the pain and white discharge that she noticed at 1st postop has completely resolved, and she is experiencing no pain at the incision site at this time, however she does still notice that it is red and swollen. Patient is able to make a closed fist and extend all digits fully. Patient is very interested in discussing left-sided surgery. No other acute complaints or concerns at this time. [facility] Medical History Abnormal MRI Post-surgical hypothyroidism History of ESBL E. coli infection Toxic multinodular goiter Toxic multinodular goiter Vitamin D deficiency Hyperthyroidism Multinodular thyroid Colon cancer Lung mass Developmental delay, mild Arthritis Surgical History History of carpal tunnel surgery of right wrist Hx of total thyroidectomy History of biopsy Hx of colonic polyps Hx of colonoscopy Family History Father No problems noted. Mother Medical history unknown Social History Household Members: Other Household Members Other:: gr home Unable to assess alcohol history related to: Unknown Alcohol intake: never Patient Tobacco Use Status: Never used Tobacco Advance Directives Date on File: 01/05/21 service: No Current occupational status: disabled Current occupation: right handed Physical Exam Vital Signs: BMI result Body Mass Index 24.0 Extrem Other: Evaluation of Right Upper Extremity: The patient is alert, oriented, and in no acute distress She has an intellectual handicap but was able to actively participate in her appointment today. She is a poor historian Neuro: Sensation intact to the median nerve distribution of the right hand No thenar or intrinsic wasting Vascular: Cap refill brisk ROM: She can make a fist and extend all her digits The incision site appears to be healing well. No purulence or drainage from the incision site Mild swelling and resolving erythema but no tenderness. She can easily make a fist and extend all of her digits without discomfort. Nerve Conduction Study: IMPRESSION: 1. This is an abnormal study. 2. There is electrodiagnostic evidence for bilateral moderate-severe median neuropathy at the wrist, consistent with carpal tunnel syndrome. 3. There is electrodiagnostic evidence for bilateral ulnar neuropathy at the elbow. 4. There is no electrodiagnostic evidence for brachial plexopathy, or cervical radiculopathy. Marylin Burgess MD, HITESH 03/06/24 Assessment & Plan Assessment & Plan (1) Carpal tunnel syndrome of right wrist: Code(s): G56.01 - Carpal tunnel syndrome, right upper limb Category: Medical (2) Cubital tunnel syndrome on right: Code(s): G56.21 - Lesion of ulnar nerve, right upper limb Category: Medical (3) Developmental delay, mild: Code(s): R62.50 - Unspecified lack of expected normal physiological development in childhood Category: Medical (4) Postoperative infection: Code(s): T81.40XA - Infection following a procedure, unspecified, initial encounter Category: Medical Plan 1. Right carpal tunnel syndrome, S/P release DOS: 07/02/24 Pre-operative symptoms intermittent, but daily, primarily at night Now with normal sensation She had developed a significant suture abscess after the wound had been kept wet and the dressing not changed. This appears to have improved significantly this past few days with proper wound care and oral antibiotics. The patient appears to be doing well post-operatively I educated her about the post-operative course She will continue to take her PO Augmentin as instructed I discussed activity modifications, she will perform gentle ROM exercises at home She will wash this daily with soap & water She should gently massage about the incision site to reduce the risk of hypersensitivity She will follow up in next week for a wound check to assure that she is doing well with Dr. Delong Patient was advised that she should hold off on any left-sided surgery until her symptoms on the right side have completely resolved. Medications: Refilled amoxicillin-pot clavulanate 875-125 mg 1 tab PO BID 20 tabs 0RF 10 days Coding Level of Care Code Global (65245) Diagnoses Carpal tunnel syndrome of right wrist G56.01 Cubital tunnel syndrome on right G56.21 Developmental delay, mild R62.50 Postoperative infection T81.40XA
[2024-08-20 14:12] VITALS: BMI 24.0
== END 2024-08-20 14:24 | disposition home or self-care (01) ==
PROVIDERS: PCP Internal Medicine
DX: G56.01 Carpal tunnel syndrome, right upper limb (principal); G56.21 Lesion of ulnar nerve, right upper limb; R62.50 Unspecified lack of expected normal physiological development in childhood; T81.40XA Infection following a procedure, unspecified, initial encounter
CPT/HCPCS: 99024

== ENCOUNTER → 2024-08-20 13:55 | Outpatient (BNVA) | payer MEDICARE, MEDICAID, SELFPAY | PROVIDERS: PCP Internal Medicine | DX: Z47.89 Encounter for other orthopedic aftercare (principal); T81.40XD Infection following a procedure, unspecified, subsequent encounter; G56.21 Lesion of ulnar nerve, right upper limb; R62.50 Unspecified lack of expected normal physiological development in childhood; Z98.890 Other specified postprocedural states; Z79.2 Long term (current) use of antibiotics | CPT/HCPCS: 99212 ==

== ENCOUNTER 2024-09-03 17:05 | Outpatient (REF) | payer MEDICARE, MEDICAID, SELFPAY | END 2024-09-03 17:06 | disposition home or self-care (01) | LOC: HO.LNP 17:05 | PROVIDERS: Visit Provider Internal Medicine Endocrinology, Diabetes & Metabolism | DX: R93.89 Abnormal findings on diagnostic imaging of other specified body structures (principal) | CPT/HCPCS: 82530 ==

== ENCOUNTER 2024-09-05 18:13 | Emergency (ER) | payer MEDICARE, MEDICAID, SELFPAY ==
--- NOTE | ~2024-09-05 | CT_ITS ---
EXAMINATION: CT HEAD WITHOUT CONTRAST CT FACIAL BONES WITHOUT CONTRAST CT CERVICAL SPINE WITHOUT CONTRAST CLINICAL INFORMATION: Fall. Head strike. Fall onto face. COMPARISON: CT head from 10/07/2023, 07/11/2022, and 12/17/2018. Brain MRI from 07/04/2024. TECHNIQUE: Imaging was performed from the skull base to vertex without intravenous administration of contrast. In addition, helical noncontrast CT imaging was acquired through the cervical spine and facial bones and source images were reviewed along with axial reconstructions and sagittal and coronal MPRs. This CT examination was performed using dose optimization techniques as appropriate, variously including the following: *Automated exposure control. *Adjustment of mA and/or kV according to patient size (this includes techniques or standardized protocols for targeted exams where dose is matched to indication/reason for exam; i.e. extremities or head). *Use of iterative reconstruction technique. DLP: 1222 mGy-cm FINDINGS: Head: There is no evidence of acute intracranial hemorrhage or edematous territorial infarction. Ornelas-white matter differentiation is preserved. Scattered and partially confluent hypoattenuation in the periventricular and deep white matter are consistent with moderate microangiopathy. The ventricles are normal in morphology and size. No evidence for obstructive hydrocephalus. No abnormal mass effect or midline shift. No extra-axial fluid collections. Moderate subgaleal hematoma along the left aspect of the frontal bone, measuring up to 1.6 cm in depth. No associated acute osseous abnormalities. Maxillofacial Bones: Left-sided facial hematoma extends into the left preseptal, periorbital soft tissues. There is a ovoid soft tissue mass medial to the right styloid process, measuring 3.4 x 2.6 x 3.7 cm that has slowly progressed in size compared to exam from 2021. No evidence of maxillofacial bone fractures. The zygomatic arches remain intact. No nasal bone fracture. The nasal septum remains midline. No evidence of mandibular or maxillary fracture. The mandibular condyles remain well-seated in their respective temporal articular grooves. Normal appearance of the intraconal and extraconal fat. No evidence of traumatic injury to the extraocular musculature or globes. Mild mucosal thickening of the paranasal sinuses. Mild rightward nasal septal deviation with spurring. The mastoid air cells and middle ear cavities are clear. No layering fluid collections. Cervical Spine: The atlantooccipital and atlantoaxial articulations remain well aligned. Moderate degenerative arthropathy of the atlantodental articulation. Straightening of the normal cervical lordosis. Mild degenerative anterolisthesis of C6 on C7. Otherwise, there is anatomic alignment of the vertebral bodies and posterior elements. Congenital nonfusion of the posterior arch of C1. No evidence of acute fracture or subluxation. The vertebral body heights are maintained. Moderate degenerative disc disease from C2-C7 with disc-osteophyte complex formation. There appears to be at least mild spinal canal stenosis at C3-C4. Facet and uncovertebral joint arthropathy leads to osseous encroachment on the neural foramina from C2-C7. There is no prevertebral soft tissue swelling. The thyroid gland and remaining cervical soft tissues are within normal limits. The lung apices demonstrate no abnormalities. CT/CT cervical spine wo IV con IMPRESSION: 1. No evidence of acute intracranial hemorrhage or edematous territorial infarction. Moderate underlying microangiopathy and generalized cerebral volume loss. 2. No evidence of acute fracture or traumatic subluxation of the cervical spine. Moderate multilevel degenerative spondyloarthropathy of the cervical spine. Most notably on this limited exam without intrathecal contrast, there appears to be at least mild spinal canal stenosis at C3-C4. 3. No evidence of acute fracture of the maxillofacial bones. 4. Left frontal scalp hematoma without associated osseous abnormalities. Left-sided facial hematoma extending into the left preseptal, periorbital soft tissues. 5. 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 Recommend further characterization with dedicated post-contrast CT or MR of the neck. Electronically signed by: Bandar Shah DO 09/05/2024 08:36 PM EST
--- NOTE | ~2024-09-05 | XR_ITS ---
EXAMINATION: XR HAND/WRIST, RIGHT CLINICAL INFORMATION: fall, abrasions to digits COMPARISON: None available. TECHNIQUE: PA, lateral, and oblique views of the right hand and wrist. FINDINGS: The bones and soft tissues are normal. No fracture. Alignment is anatomic. Joint spaces are maintained. No erosions or soft tissue calcifications. XR/XR hand wrist RT IMPRESSION: Normal radiographs of the hand and wrist. Electronically signed by: Laxmi Virk MD 09/05/2024 08:45 PM JENNY KRUGER
[2024-09-05 18:30] VITALS: BP 132/83; PULSE 81; RESP 18; TEMP 36.7; O2SAT 100; BMI 24.7
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
[2024-09-05] MEDS: Acetaminophen 325 MG TABLET 650 MG PO (22:11)
[2024-09-05 22:53] VITALS: BP 171/82; PULSE 66; RESP 16; TEMP 36.6; O2SAT 100
[2024-09-05 23:00] VITALS: BP 171/82; PULSE 66; RESP 16; TEMP 36.6; O2SAT 100
--- OUTSIDE RECORDS SUMMARY | 2024-09-11 04:27 | XMS_ITS | Data Portability ---
Author Organization [place] - [facility], Allergy Address [address] [address] Assessment Encounter Date Assessment Date Assessment LastModified by Organization Details LastModified Time 04/22/2024 04/22/2024 Incidental finding of right parapharyngeal lesion is partially visualized on previous MRI. Recommend further imaging with MRI neck with and without contrast and then likely referral to [facility] for discussion of surgical intervention. 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 Requested to share results with Patricia Villavicencio RN [phone] [email or web address] Not available 04/22/2024 11:08:51 Plan of Treatment Reminders Order Date Submit Date Provider Last Modified By Organization Details Last Modified Time Details Appointments None recorded. Lab None recorded. Referral None recorded. Procedures None recorded. Surgeries None recorded. Imaging MRI, neck, w/wo contrast - followup of right parapharyn geal lesion 2023 024 [facility], [address], [address], 11:29:49 Medication Orders None recorded. Patient TargetsNo targets recorded. Patient InstructionsNo instructions recorded. Reason for Referral None Reported. Results Created Date Observation Date Name Description Value Unit Range Abnormal Flag Note LastModifiedBy Organization Detail LastModifiedTime 05/01/20 24 04/30/2024 MRI, neck, w/ contr ast No observ ation record ed. dplosky [facility] [address], [place], [address], 05/01/2024 10:09:56 05/01/20 24 04/30/2024 MRI, neck, w/ contr ast No observ ation record ed. dplosky [facility] [address] [facility] [address], [place], [address], 05/01/2024 10:09:56 Result Notes None recorded. Problems Name Problem SNOMED Code Status Onset Date Resolution Date Notes Provider Name and Address Organization Details Recorded Time Sensorine ural hearing loss of bilateral ears 586154326 Active 2014 Sensorine ural HL, bilateral ; Note: Date Diagnosed : 11/20/2014 4:41 PM (389.18) Note: Date Diagnosed : 11/20/2014 4:41 PM (389.18) Not Available [facility] 4 01:02:50 Impacted cerumen of bilateral ears [id number] 95778 Active 2016 Impacted cerumen, bilateral ; Note: Date Diagnosed : 11/29/2016 11:26 AM (H61.23) Note: Date Diagnosed : 11/29/2016 11:26 AM (H61.23) Not Available [facility] 4 01:02:50 Abnormal auditory perceptio n 14348908 Active 2018 Abnormal auditory perceptio n, unspecifi ed; Note: Date Diagnosed : 11/20/2014 5:39 PM (388.40) Note: Date Diagnosed : 11/20/2014 5:39 PM (388.40) ; Start Date : 5 Other abnormal auditory perceptio ns, bilateral ; Note: Date Diagnosed : 12/06/2018 1:15 PM (H93.293) Note: Date Diagnosed : 12/06/2018 1:15 PM (H93.293) Not Available [facility] 4 01:02:51 Impacted cerumen 31373164 Active 2014 Impacted cerumen; CMS Risk: low risk CMS Treatment : new problem (to examiner) : additiona l workup planned N ote: Date Diagnosed : 11/20/2014 5:40 PM (380.4) CMS Risk: low risk CMS Treatment : new problem (to examiner) : additiona l workup planned C MS Risk: low risk CMS Treatment : new problem (to examiner) : additiona l workup planned C MS Risk: low risk CMS Treatment : new problem (to examiner) : additiona l workup planned N ote: Date Diagnosed : 11/20/2014 5:40 PM (380.4) Not Available [facility] Mass of paraphary ngeal space [id number] 219359 Active 2023 MIKAEL DORMAN MD [address] [address], [place], [address] , [facility] 09:11:36 Problem Notes None recorded. Procedures Surgical History Date Name Laterality Status Provider Name and Address Organization Details Recorded Time 04/22/2024 FOL_DP completed MIKAEL DORMAN MD [address] [place] [address], [place], [address], [facility] 04/22/2024 11:07:34 Imaging Results Imaging Date Name Status LastModified by Organiz ation Details LastModified Time 04/30/2024 MRI, neck, w/ contrast completed dplosky [facility] [address], [address], 05/01/2024 10:09:56 04/30/2024 MRI, neck, w/ contrast completed dplosky [facility] [address], [address], 05/01/2024 10:09:56 Procedure Notes None recorded. Medical Equipment None Reported. Allergies Allergen ID Allergen Name Allergen Category Reaction Reaction Severity Criticality Documentation Date Start Date Code Code System Note Provider Name and Address Organization Details Recorded Time [id number] latex environme nt,medica tion Not available Not available Not available 04/22/2024 59956 91 RxNorm Su ceja [facility] 10:59:19 Medications Name Sig Start Date Stop Date Status Note LastModified by Organization Details LastModified Time doxycycli ne hyclate 100 mg capsule 04/22 completed Medicatio n ID: [id number] Dur ation Value: 10 Brand Name: doxycycli ne hyclate S end Method: E-Prescri bed Subs Allowed: subs OK Specia l Instructi on: TAKE ONE CAPSULE BY MOUTH TWICE A DAY Medic ationGene ricName: doxycycli ne hyclate M edication ID: [id number] Dur ation Value: 10 Brand Name: doxycycli ne hyclate S end Method: E-Prescri bed Subs Allowed: subs OK Specia l Instructi on: TAKE ONE CAPSULE BY MOUTH TWICE A DAY Medic ationGene ricName: doxycycli ne hyclate Not Available Not Available Not Available acetamino phen 300 mg-codein e 30 mg tablet 2014 active Medicatio n ID: [id number] Dur ation Value: 4 Brand Name: acetamino phen-code ine Send Method: E-Prescri bed Subs Allowed: subs OK Specia l Instructi on: TAKE 1 TABLET BY MOUTH EVERY 6 HOURS NEEDED FOR PAIN Medi cationGen ericName: acetamino phen-code ine Medic ation ID: [id number] Dur ation Value: 4 Brand Name: acetamino phen-code ine Send Method: E-Prescri bed Subs Allowed: subs OK Specia l Instructi on: TAKE 1 TABLET BY MOUTH EVERY 6 HOURS NEEDED FOR PAIN Medi cationGen ericName: acetamino phen-code ine Not Available Not Available Not Available theophyll ine ER 300 mg tablet,ex tended release,1 2 hr 04/22 completed Medicatio n ID: [id number] Dur ation Value: 90 Brand Name: theophyll ine Send Method: E-Prescri bed Subs Allowed: subs OK Specia l Instructi on: TAKE 1 TABLET BY MOUTH EVERY DAY Medic ationGene ricName: theophyll ine Medic ation ID: [id number] Dur ation Value: 90 Brand Name: theophyll ine Send Method: E-Prescri bed Subs Allowed: subs OK Specia l Instructi on: TAKE 1 TABLET BY MOUTH EVERY DAY Medic ationGene ricName: theophyll ine Not Available Not Available Not Available carbamaze pine 200 mg tablet Take 1 tablet every 12 hours by oral route. active Not Available Not Available No t Available flaxseed oil 1,000 mg capsule 04/22 completed Medicatio n ID: [id number] Dur ation Value: 90 Brand Name: flaxseed oil Send Method: E-Prescri bed Subs Allowed: subs OK Specia l Instructi on: TAKE 2-3 CAPSULES BY MOUTH DAILY Med icationGe nericName : flaxseed oil Medic ation ID: [id number] Dur ation Value: 90 Brand Name: flaxseed oil Send Method: E-Prescri bed Subs Allowed: subs OK Specia l Instructi on: TAKE 2-3 CAPSULES BY MOUTH DAILY Med icationGe nericName : flaxseed oil Not Available Not Available Not Available mupirocin 2 % topical ointment 04/22 completed Medicatio n ID: [id number] Dur ation Value: 7 Brand Name: mupirocin Send Method: E-Prescri bed Subs Allowed: subs OK Specia l Instructi on: APPLY A SMALL AMOUNT TO AFFECTED AREA THREE TIMES A DAY Medic ationGene ricName: mupirocin Medicati on ID: [id number] Dur ation Value: 7 Brand Name: mupirocin Send Method: E-Prescri bed Subs Allowed: subs OK Specia l Instructi on: APPLY A SMALL AMOUNT TO AFFECTED AREA THREE TIMES A DAY Medic ationGene ricName: mupirocin Not Available Not Available Not Available polyethyl mesfin glycol 3350 17 gram/dose oral powder 04/22 completed Medicatio n ID: [id number] Dur ation Value: 30 Brand Name: polyethyl mesfin glycol 3350 Send Method: E-Prescri bed Subs Allowed: subs OK Specia l Instructi on: DISSOLVE 1 CAPFULE IN 4-8 OZ OF LIQUID DAILY NEEDED Me dicationG enericNam e: polyethyl mesfin glycol 3350 Medi cation ID: [id number] Dur ation Value: 30 Brand Name: polyethyl mesfin glycol 3350 Send Method: E-Prescri bed Subs Allowed: subs OK Specia l Instructi on: DISSOLVE 1 CAPFULE IN 4-8 OZ OF LIQUID DAILY NEEDED Me dicationG enericNam e: polyethyl mesfin glycol 3350 Not Available Not Available Not Available imipramin e 25 mg tablet 04/22 completed Medicatio n ID: [id number] Dur ation Value: 30 Brand Name: imipramin e HCl Send Method: E-Prescri bed Subs Allowed: subs OK Specia l Instructi on: TAKE 1 TABLET BY MOUTH EVERY MORNING AND 3 TABLETS EVERY EVENING M edication GenericNa me: imipramin e HCl Medic ation ID: [id number] Dur ation Value: 30 Brand Name: imipramin e HCl Send Method: E-Prescri bed Subs Allowed: subs OK Specia l Instructi on: TAKE 1 TABLET BY MOUTH EVERY MORNING AND 3 TABLETS EVERY EVENING M edication GenericNa me: imipramin e HCl Not Available Not Available Not Available loratadin e 10 mg tablet 2014 active Medicatio n ID: [id number] Dur ation Value: 30 Brand Name: loratadin e Send Method: E-Prescri bed Subs Allowed: subs OK Specia l Instructi on: TAKE 1 TABLET BY MOUTH DAILY Med icationGe nericName : loratadin e Medicat ion ID: [id number] Dur ation Value: 30 Brand Name: loratadin e Send Method: E-Prescri bed Subs Allowed: subs OK Specia l Instructi on: TAKE 1 TABLET BY MOUTH DAILY Med icationGe nericName : loratadin e Not Available Not Available Not Available Abilify 15 mg tablet 2014 active Medicatio n ID: [id number] Dur ation Value: 90 Brand Name: Abilify S end Method: E-Prescri bed Subs Allowed: subs OK Specia l Instructi on: TAKE 1 TABLET BY MOUTH EVERY MORNING M edication GenericNa me: Abilify M edication ID: [id number] Dur ation Value: 90 Brand Name: Abilify S end Method: E-Prescri bed Subs Allowed: subs OK Specia l Instructi on: TAKE 1 TABLET BY MOUTH EVERY MORNING M edication GenericNa me: Abilify Not Available Not Available Not Available Vesicare 5 mg tablet 2014 active Medicatio n ID: [id number] Dur ation Value: 90 Brand Name: Vesicare Send Method: E-Prescri bed Subs Allowed: subs OK Specia l Instructi on: TAKE 1 TABLET BY MOUTH EVERY MORNING M edication GenericNa me: Vesicare Medicatio n ID: [id number] Dur ation Value: 90 Brand Name: Vesicare Send Method: E-Prescri bed Subs Allowed: subs OK Specia l Instructi on: TAKE 1 TABLET BY MOUTH EVERY MORNING M edication GenericNa me: Vesicare Not Available Not Available Not Available Cogentin 04/22 completed Medicatio n ID: [id number] Br and Name: cogchristine Send Method: E-Prescri bed Subs Allowed: subs OK Medica tionGener icName: christian Medicatio n ID: [id number] Br and Name: christian Send Method: E-Prescri bed Subs Allowed: subs OK Medica tionGener icName: cogentin Not Available Not Available Not Available Vitals None Recorded Social History None recorded. Functional Status None recorded. Mental Status None recorded. Family History Nothing Reported. Medical History No medical history recorded. Gynecological HistoryNo gynecological history recorded. Obstetrics History GPAL:G 0 P 0 0 0 0 Past Encounters Encounter ID Performer Location Encounter Start Date Encounter Closed Date Diagnosis/Indication Diagnosis SNOMED-CT Code Diagnosis ICD10 Code 8680 MIKAEL DORMAN MD [facility] [address] [address] 04/22/2024 10:32:31 04/22/2024 11:17:22 Mass of parapharyngeal space 1050870985 [id number] R22.1 Health Concerns Section Related Observation LastModified by Organization Detai ls LastModified Time None Recorded Concern Status LastModified by Organization Details LastModified Time None Recorded Advance Directives Directive None Recorded Payers Encounter Date Sequence Insurance Name Policy Number Policy Cobb Covered Member ID Cobb Member ID Guarantor Name 04/22/2024 2 [place] [facility] Kirsten Ramesh [place] [id number] Kirsten M Shima 04/22/2024 1 [place] [facility] Kirsten M Shima [id number] Kirsten Ramesh Sh[place] Notes Date Note Type Note Provider Name and Address Organization Details Recorded Time 04/22/2024 text/html right parapharyn geal lesionhx from Patricia who joined visit by phoneescorted by Jr who is her day staff at facility11/22/2023 MR pituitary with and without contrast at [facility] shows a prominence of the pituitary gland, possible pituitary adenoma. Incidental finding of a 25 mm right parapharyngeal space lesion is partially visualized no dysphagiavoice slight muffle thyroidectomy in October 2023 MIKAEL DORMAN MD [address] [place] [address], [address], [place] [facility] 04/22/2024 11:11:35 OBGyn Episode No OBEpisode recorded.
== END 2024-09-05 23:02 | disposition home or self-care (01) ==
PROVIDERS: Emergency Provider Emergency Medicine; PCP Internal Medicine
DX: S00.83XA Contusion of other part of head, initial encounter (principal); S60.211A Contusion of right wrist, initial encounter; R51.9 Headache, unspecified; M54.2 Cervicalgia; F33.1 Major depressive disorder, recurrent, moderate; M79.641 Pain in right hand; R40.2410 Glasgow coma scale score 13-15, unspecified time; V59.3XXA Occupant (driver) (passenger) of pick-up truck or van injured in unspecified nontraffic accident, initial encounter; Y93.89 Activity, other specified; Y92.488 Other paved roadways as the place of occurrence of the external cause; Y99.8 Other external cause status; Z79.899 Other long term (current) drug therapy
CPT/HCPCS: 70450; 70486; 72125; 73110; 73130; 99283; 99284

== ENCOUNTER 2024-09-08 17:24 | Emergency (ER) | payer MEDICARE, MEDICAID, SELFPAY ==
--- NOTE | ~2024-09-08 | CT_ITS ---
EXAMINATION: CT HEAD WITHOUT CONTRAST CLINICAL INFORMATION: Agitation. Recent fall. COMPARISON: CT head from 09/05/2024, 10/07/2023, and 07/11/2022. TECHNIQUE: Contiguous axial imaging was performed from the skull base to vertex without intravenous administration of contrast. This CT examination was performed using dose optimization techniques as appropriate, variously including the following: *Automated exposure control. *Adjustment of mA and/or kV according to patient size (this includes techniques or standardized protocols for targeted exams where dose is matched to indication/reason for exam; i.e. extremities or head). *Use of iterative reconstruction technique. DLP: 634 mGy-cm FINDINGS: Head: There is no evidence of acute intracranial hemorrhage or edematous territorial infarction. [place]-white matter differentiation is preserved. Scattered and partially confluent hypoattenuation in the periventricular and deep white matter are consistent with moderate microangiopathy. The ventricles are normal in morphology and size. No evidence for obstructive hydrocephalus. No abnormal mass effect or midline shift. No extra-axial fluid collections. Moderate subgaleal hematoma along the left aspect of the frontal bone, measuring up to 1.4 cm in depth. No associated acute osseous abnormalities. Congenital nonunion of the posterior arch of C1. Mild mucosal thickening of the paranasal sinuses. Mild rightward nasal septal deviation. The mastoid air cells and middle ear cavities are clear. Redemonstrated ovoid soft tissue mass medial to the right styloid process, measuring up to 3.4 cm that has slowly progressed in size compared to exam from 2021. CT/CT head/brain wo IV con IMPRESSION: 1. No evidence of acute intracranial hemorrhage or edematous territorial infarction. 2. Moderate underlying microangiopathy and generalized cerebral volume loss. 3. Left frontal scalp hematoma without associated osseous abnormalities. 4. Redemonstrated ovoid soft tissue mass medial to the right styloid process, measuring up to 3.4 cm that has slowly progressed in size compared to exam from 2021. Electronically signed by: Bandar Shah DO 09/08/2024 09:41 PM EST
[2024-09-08 17:26] VITALS: BP 122/88; BP 159/67; PULSE 66; PULSE 78; RESP 18; TEMP 36.7; O2SAT 98; O2SAT 99; BMI 29.2
--- NOTE | 2024-09-08 19:35 | PC.NURSE ---
this rn assumed care of pt, pt reports she fell and hit her head x3 days ago. pt noted to have hematoma to the left eye, reporting headache at this time. Provider at bedside.
[2024-09-08] MEDS: Ibuprofen 400 MG TABLET PO (20:14)
--- NOTE | 2024-09-08 20:21 | PC.NURSE ---
pt ambulatory to bathroom with steady gait with walker, urine sample obtained and sent to lab.
[2024-09-08 20:24] LABS: Appearance Urine Clear; Color Urine Yellow; Glucose Urine UA Negative (Negative); Leukocyte Esterase Urine Trace (Negative); Nitrite Urine Negative (Negative); UMIC TRIGGER UACC YES; Urine Blood Negative (Negative); Urine Ketones Negative (Negative); Urine Protein Negative (Neg-Trace)
[2024-09-08 20:38] LABS: Bacteria Urine None Seen (None Seen); Hyaline Casts Urine 0-2 /LPF (0-2); RBC Urine 0-2 /HPF (0-2); Squamous Epithelial Cell Urine 0-2 /HPF (0-2); WBC Urine 0-5 /HPF (0-5)
--- NOTE | 2024-09-08 20:41 | ED.HA ---
HPI - Headache General Chief Complaint: Headache Stated Complaint: headache Time Seen by Provider: 09/08/24 19:27 Source: patient, EMS, RN notes reviewed and other ([facility] staff) Mode of arrival: EMS Limitations: other (poor historian) History of Present Illness ED Provider: Maranda HPI Narrative: 68-year-old female with past medical history significant for developmental delay, hyperthyroidism, carpal tunnel syndrome presents for evaluation of agitation. The patient was here 2 days ago after a fall. She had CT scans of the brain, facial bones and cervical spine. She has a large facial hematoma but otherwise unremarkable for acute findings. The patient was reportedly agitated today because she wanted to ibuprofen pills but her med list only allows staff to give her 1 at a time She became agitated and started yelling at staff. This prompted her to be brought to the emergency room for evaluation. She has a history of agitation with UTI so they would like her evaluated for a UTI and per nursing staff at the facility would like a CT scan of the brain The patient has not had any additional falls since the 1 she was evaluated for 2 days ago Related Data Home Medications ?Medication ?Instructions ?Recorded ?Confirmed acetaminophen 500 mg tablet 500 mg PO Q4H PRN pain/fever 01/05/21 07/10/24 aspirin 81 mg tablet,delayed 81 mg PO DAILY 01/05/21 07/10/24 release carbamazepine 200 mg tablet 400 mg PO BEDTIME 01/05/21 07/10/24 loratadine 10 mg tablet 10 mg PO DAILY 01/05/21 07/10/24 multivitamin 1 tab PO DAILY 01/05/21 07/10/24 nystatin 100,000 unit/gram topical 1 appl topical BID PRN Rash 01/05/21 07/10/24 powder ibuprofen 400 mg tablet 400 mg PO TID PRN Pain 01/24/23 07/10/24 methyl salicylate 30 %-menthol 10 1 appl topical BID 01/24/23 07/10/24 % topical cream (Icy Hot) triamcinolone acetonide 0.1 % 1 appl topical BID PRN Skin 01/24/23 07/10/24 topical ointment Irritation melatonin 10 mg tablet 10 mg PO BEDTIME 05/10/23 07/10/24 ferrous sulfate 325 mg (65 mg 325 mg PO MOWEFR 10/02/23 07/10/24 iron) tablet aripiprazole 5 mg tablet (Abilify) 5 mg PO DAILY 03/13/24 07/10/24 ascorbic acid (vitamin C) 500 mg 500 mg PO BID 03/13/24 07/10/24 tablet (Vitamin C) betamethasone dipropionate 0.05 % 1 appl topical BID PRN Dry areas 03/13/24 07/10/24 topical ointment on hand methenamine hippurate 1 gram tablet 1 g PO BID 03/13/24 07/10/24 olanzapine 15 mg tablet 15 mg PO BEDTIME 03/13/24 07/10/24 polyethylene glycol 3350 17 17 g PO DAILY PRN Constipation 03/13/24 07/10/24 gram/dose oral powder trazodone 50 mg tablet 50 mg PO BEDTIME 03/13/24 07/10/24 vibegron 75 mg tablet (Gemtesa) 75 mg PO DAILY 03/13/24 07/10/24 zinc oxide-vitamin B5-vit E 11.3% 1 appl topical BID Rash 03/13/24 07/10/24 topical cream (Balmex Adult Care) Previous Rx's ?Medication ?Instructions ?Recorded sennosides 8.6 mg tablet (Senna 8.6 mg PO BEDTIME PRN constipation 10/05/23 Lax) #30 tabs docusate sodium 100 mg capsule 100 mg PO BID PRN constipation #20 03/18/24 caps polyethylene glycol 3350 17 17 g PO DAILY PRN constipation 03/18/24 gram/dose oral powder (Miralax) #238 grams tamsulosin 0.4 mg capsule 0.4 mg PO DAILY #30 caps 03/18/24 nitrofurantoin 100 mg PO Q12H 7 days #14 caps 04/07/24 monohydrate/macrocrystals 100 mg capsule (Macrobid) levothyroxine 200 mcg tablet 200 mcg PO QAM #30 tabs 05/09/24 cefuroxime axetil 500 mg tablet 500 mg PO BID 7 days #14 tabs 07/03/24 amoxicillin 875 mg-potassium 1 tab PO BID 10 days #20 tabs 08/20/24 clavulanate 125 mg tablet Allergies Allergy/AdvReac Type Severity Reaction Status Date / Time adhesive tape Allergy Intermediate itching Verified 09/08/24 17:31 and skin redness latex Allergy Intermediate skin rash Verified 09/08/24 17:31 and itching Seasonal Allergies Allergy Itching Verified 09/08/24 17:31 weed pollen Allergy stuffy nose Verified 09/08/24 17:31 DUST Allergy Unknown ITCHY/WATERY Uncoded 09/08/24 17:31 EYES surgical paper tape Allergy Unknown rash Uncoded 09/08/24 17:31 Tide Allergy Unknown rash Uncoded 09/08/24 17:31 Review of Systems Constitutional: Constitutional: Denies chills, Denies fever(s) and Reports headache(s) Eyes: Eyes: Denies blurry vision ENT: Denies dizziness and Reports headache(s) Cardiovascular: Cardiovascular: Denies chest pain, Denies chest pain at rest and Denies dyspnea Respiratory: Respiratory: Denies cough and Denies dyspnea Gastrointestinal: Gastrointestinal: Denies abdominal pain, Denies nausea and Denies vomiting Musculoskeletal: Musculoskeletal: Denies back pain Integumentary/Breasts: Comments: Left facial bruising Neurologic: Denies dizziness and Reports headache(s) [facility] Past Medical History Medical History Abnormal MRI Post-surgical hypothyroidism History of ESBL E. coli infection Toxic multinodular goiter Toxic multinodular goiter Vitamin D deficiency Hyperthyroidism Multinodular thyroid Colon cancer Lung mass Developmental delay, mild Arthritis Surgical History History of carpal tunnel surgery of right wrist Hx of total thyroidectomy History of biopsy Hx of colonic polyps Hx of colonoscopy Family History Family History Father No problems noted. 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 Members: Other Household Members Other:: gr home Unable to assess alcohol history related to: Unknown Alcohol intake: never Patient Tobacco Use Status: Never used Tobacco Advance Directives: Yes Advance Directives on File: Yes Advance Directives Date on File: 01/05/21 Do you have a plan to hurt others: No Plan service: No Current occupational status: disabled Current occupation: right handed Physical Exam Vital Signs: Vital Signs: Last Vital Signs Temp 98.1 F 09/08/24 17:26 Pulse 66 09/08/24 17:26 Resp 18 09/08/24 17:26 BP 159/67 H 09/08/24 17:26 Pulse Ox 99 09/08/24 17:26 O2 Del Method Room Air 09/08/24 17:26 BMI result Body Mass Index 29.2 Const: General: healthy appearing, comfortable, no acute distress, alert and awake Nutritional Appearance: well nourished Orientation/consciousness: patient oriented x3 HEENT: Head: No normal to inspection, Yes No palpable skull fracture present, No normocephalic, No atraumatic and Yes contusion (Fairly large left periorbital contusion) Eyes: Eyelids: Yes eyelids normal Conjunctivae: conjunctivae normal Sclerae: sclerae normal Corneas: corneas normal Pupils: Equal, round and reactive pupils present EOM: EOMs intact bilaterally Neck: Neck: Yes full ROM Resp: Effort & Inspection: normal respiratory effort, able to speak in complete sentences and not labored Cardio: Rate: regular rate Rhythm: regular rhythm GI: Inspection: No distended Palpation (GI): Soft to palpation, not firm, nontender, no guarding and not rigid Skin: General skin exam: elasticity normal Neuro: General: patient oriented x3 Cranial nerves: Yes Equal, round and reactive pupils present and Yes Bilaterally intact EOM present Medications Administered Discontinued Medications Generic Name Dose Route Start Last Admin Trade Name Edisonq PRN Reason Stop Dose Admin Ibuprofen 400 mg 09/08/24 19:50 09/08/24 20:14 Ibuprofen 400 Mg Tablet PO 09/08/24 19:51 400 mg ONCE ONE Administration Medical Decision Making Medical Decision Making [facility] Narrative: 59 old female presents for evaluation of reported agitation. She is calm and cooperative for staff in the ER. Given her history we will obtain a urinalysis to rule out UTI. We will get a repeat CT scan as the patient reported a sudden onset of headache and agitation. However she is nonfocal during my exam and appears calm and cooperative, I have a low suspicion for intracranial hemorrhage. We will treat her pain with ibuprofen Differential Diagnosis Differential Diagnoses: The differential diagnosis associated with the presentation includes Acute headache UTI Agitation Mechanical fall Contusion Hematoma Lab Data [facility] Lab Attestation statement: I reviewed the patient's lab results. UA not consistent with UTI Labs: Lab Results 09/08/24 Range/Units 20:15 Urine Color Yellow Urine Appearance Clear Urine pH 6.0 (5.0-9.0) Ur Specific [place] 1.010 (1.005-1.025) Urine Protein Negative (Neg-Trace) mg/dL Urine Glucose (UA) Negative (Negative) mg/dL Urine Ketones Negative (Negative) mg/dL Urine Blood Negative (Negative) Urine Nitrite Negative (Negative) Ur Leukocyte Esterase Trace H (Negative) Urine RBC 0-2 (0-2) /HPF Urine WBC 0-5 (0-5) /HPF Ur Squamous Epith Cells 0-2 (0-2) /HPF Urine Bacteria None Seen (None Seen) Hyaline Casts 0-2 (0-2) /LPF Radiology Impression Discussion of test interpretation with radiology: I have reviewed the radiologist's reading. Radiologist Impression: CT/CT head/brain wo IV con IMPRESSION: 1. No evidence of acute intracranial hemorrhage or edematous territorial infarction. 2. Moderate underlying microangiopathy and generalized cerebral volume loss. 3. Left frontal scalp hematoma without associated osseous abnormalities. 4. Redemonstrated ovoid soft tissue mass medial to the right styloid process, measuring up to 3.4 cm that has slowly progressed in size compared to exam from 2021. Electronically signed by: Bandar Shah DO 09/08/2024 09:41 PM [facility] [place] Dis[place] Clinical Impression: Headache, Contusion of face Patient Disposition: Home, Self-Care Instructions: Acute Headache (ED) Additional Instructions: Your workup in the ER today was reassuring. You do not have a UTI. Your brain CT did not show any changes from the other day, no traumatic injuries Prescriptions: No Action levothyroxine 200 mcg tablet 200 mcg PO QAM Qty: 30 5RF Rx Instructions: 1 tab daily in the morning carbamazepine 200 mg tablet 400 mg PO BEDTIME multivitamin Tablet 1 tab PO DAILY aspirin 81 mg Tablet,Delayed Release (Dr/Ec) 81 mg PO DAILY acetaminophen 500 mg Tablet 500 mg PO Q4H PRN (Reason: pain/fever) nystatin 100,000 unit/gram Powder 1 appl TOPICAL BID PRN (Reason: Rash) Rx Instructions: rash in skin folds loratadine 10 mg Tablet 10 mg PO DAILY triamcinolone acetonide 0.1 % ointment 1 appl topical BID PRN (Reason: Skin Irritation) ibuprofen 400 mg Tablet 400 mg PO TID PRN (Reason: Pain) Icy Hot 30-10 % Cream 1 appl TOPICAL BID Rx Instructions: to back and shoulders ferrous sulfate 325 mg (65 mg iron) Tablet 325 mg PO MOWEFR sennosides [Senna Lax] 8.6 mg Tablet 8.6 mg PO BEDTIME PRN (Reason: constipation) Qty: 30 0RF trazodone 50 mg tablet 50 mg PO BEDTIME olanzapine 15 mg tablet 15 mg PO BEDTIME betamethasone dipropionate 0.05 % ointment 1 appl topical BID PRN (Reason: Dry areas on hand) aripiprazole [Abilify] 5 mg Tablet 5 mg PO DAILY Gemtesa 75 mg tablet 75 mg PO DAILY methenamine hippurate 1 gram tablet 1 g PO BID ascorbic acid (vitamin C) [Vitamin C] 500 mg tablet 500 mg PO BID Balmex Adult Care 11.3 % Cream 1 appl TOPICAL BID Rx Instructions: apply to rash, groin, and buttocks polyethylene glycol 3350 17 gram/dose powder 17 g PO DAILY PRN (Reason: Constipation) docusate sodium 100 mg Capsule 100 mg PO BID PRN (Reason: constipation) Qty: 20 0RF tamsulosin 0.4 mg Capsule 0.4 mg PO DAILY Qty: 30 0RF polyethylene glycol 3350 [Miralax] 17 gram/dose powder 17 g PO DAILY PRN (Reason: constipation) Qty: 238 0RF nitrofurantoin monohyd/m-cryst [Macrobid] 100 mg capsule 100 mg PO Q12H 7 Days Qty: 14 0RF Rx Instructions: must administer with a meal/food cefuroxime axetil 500 mg tablet 500 mg PO BID 7 Days Qty: 14 0RF melatonin 10 mg Tablet 10 mg PO BEDTIME amoxicillin-pot clavulanate 875-125 mg tablet 1 tab PO BID 10 Days Qty: 20 0RF Print Language: Citizen [place]
--- NOTE | 2024-09-08 22:15 | PC.NURSE ---
maintenance worker house trailer at bedside reports pt needs ambulance transportation back to group.
[2024-09-08 22:16] VITALS: BP 161/75; PULSE 68; RESP 17; TEMP 37; O2SAT 97
--- NOTE | 2024-09-08 22:18 | PC.NURSE ---
attempted to give report to RN at shelter at this time, message left.
--- NOTE | 2024-09-08 22:25 | PC.NURSE ---
report given to Patricia CHUN at [facility].
[2024-09-08 22:54] VITALS: BP 161/75; PULSE 68; RESP 17; TEMP 37; O2SAT 97
== END 2024-09-08 22:56 | disposition home or self-care (01) ==
PROVIDERS: Physician Assistant; Emergency Provider Emergency Medicine
DX: S00.83XA Contusion of other part of head, initial encounter (principal); R51.9 Headache, unspecified; R41.82 Altered mental status, unspecified; R45.1 Restlessness and agitation; X58.XXXA Exposure to other specified factors, initial encounter; Y93.9 Activity, unspecified; Y92.89 Other specified places as the place of occurrence of the external cause; Y99.8 Other external cause status; Z79.899 Other long term (current) drug therapy
CPT/HCPCS: 70450; 81001; 99284

== ENCOUNTER 2024-09-09 16:46 | Outpatient (REF) | payer MEDICARE, MEDICAID, SELFPAY ==
[2024-09-09 17:33] LABS: Anion Gap 13 (12-20); Blood Urea Nitrogen 26 mg/dL (9-16); Calcium 9.5 mg/dL (8.4-10.2); Carbon Dioxide 25 mmol/L (22-29); Chloride 102 mmol/L (96-108); Estimated Glomerular Filt Rate > 60; Glucose Random 81 mg/dL (60-115); Potassium 4.1 mmol/L (3.3-5.1); Sodium 136 mmol/L (135-145)
== END 2024-09-09 16:47 | disposition home or self-care (01) ==
LOC: HO.LAB 16:46
PROVIDERS: PCP Internal Medicine; Visit Provider Internal Medicine
DX: Z13.89 Encounter for screening for other disorder (principal)
CPT/HCPCS: 36415; 80048

== ENCOUNTER 2024-09-11 16:31 | Inpatient (IN) | payer MEDICARE, MEDICAID, SELFPAY ==
--- NOTE | ~2024-09-11 | CT_ITS ---
EXAMINATION: CT HEAD WITHOUT CONTRAST CT FACIAL BONES WITHOUT CONTRAST CT CERVICAL SPINE WITHOUT CONTRAST CLINICAL INFORMATION: Falls. COMPARISON: Altered mental status. Left-sided orbital hematoma. TECHNIQUE: Imaging was performed from the skull base to vertex without intravenous administration of contrast. In addition, helical noncontrast CT imaging was acquired through the cervical spine and facial bones and source images were reviewed along with axial reconstructions and sagittal and coronal MPRs. This CT examination was performed using dose optimization techniques as appropriate, variously including the following: *Automated exposure control. *Adjustment of mA and/or kV according to patient size (this includes techniques or standardized protocols for targeted exams where dose is matched to indication/reason for exam; i.e. extremities or head). *Use of iterative reconstruction technique. DLP: 1758 mGy-cm FINDINGS: Head: There is no evidence of acute intracranial hemorrhage or edematous territorial infarction. Ornelas-white matter differentiation is preserved. Scattered and partially confluent hypoattenuation in the periventricular and deep white matter are consistent with moderate microangiopathy. The ventricles are normal in morphology and size. No evidence for obstructive hydrocephalus. No abnormal mass effect or midline shift. No extra-axial fluid collections. Persistent moderate subgaleal hematoma along the left aspect of the frontal bone, measuring up to 1.3 cm in depth. No associated acute osseous abnormalities. Maxillofacial Bones: Mild edema/hematoma extending into the left-sided face. Redemonstrated ovoid soft tissue mass medial to the right styloid process, measuring 3.4 x 2.6 x 3.7 cm that has slowly progressed in size compared to exam from 2021. No evidence of maxillofacial bone fractures. The zygomatic arches remain intact. No nasal bone fracture. The nasal septum remains midline. No evidence of mandibular or maxillary fracture. The mandibular condyles remain well-seated in their respective temporal articular grooves. Normal appearance of the intraconal and extraconal fat. No evidence of traumatic injury to the extraocular musculature or globes. Mild mucosal thickening of the paranasal sinuses. Mild rightward nasal septal deviation with spurring. The mastoid air cells and middle ear cavities are clear. No layering fluid collections. Cervical Spine: The atlantooccipital and atlantoaxial articulations remain well aligned. Moderate degenerative arthropathy of the atlantodental articulation. Straightening of the normal cervical lordosis. Mild degenerative anterolisthesis of C6 on C7. Otherwise, there is anatomic alignment of the vertebral bodies and posterior elements. Congenital nonfusion of the posterior arch of C1. No evidence of acute fracture or subluxation. The vertebral body heights are maintained. Moderate degenerative disc disease from C2-C7 with disc-osteophyte complex formation. There appears to be at least mild spinal canal stenosis at C3-C4. Facet and uncovertebral joint arthropathy leads to osseous encroachment on the neural foramina from C2-C7. There is no prevertebral soft tissue swelling. The thyroid gland and remaining cervical soft tissues are within normal limits. The lung apices demonstrate no abnormalities. CT/CT head/brain wo IV con IMPRESSION: 1. No evidence of acute intracranial hemorrhage or edematous territorial infarction. Moderate underlying microangiopathy and generalized cerebral volume loss. 2. No evidence of acute fracture or traumatic subluxation of the cervical spine. Moderate multilevel degenerative spondyloarthropathy of the cervical spine. Most notably on this limited exam without intrathecal contrast, there appears to be at least mild spinal canal stenosis at C3-C4. 3. No evidence of acute fracture of the maxillofacial bones. 4. Left frontal scalp and facial hematoma without associated acute osseous abnormalities. 5. 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 Recommend further characterization with dedicated post-contrast CT or MR of the neck. Electronically signed by: Bandar Shah DO 09/11/2024 07:42 PM [facility]
--- NOTE | ~2024-09-11 | XR_ITS ---
EXAMINATION: XR CHEST CLINICAL INFORMATION: AMS COMPARISON: Multiple prior chest radiographs most recently 07/03/2024 TECHNIQUE: 2 views of the chest were obtained. FINDINGS: There is mild cardiac enlargement. There is no gross CHF. The aorta is unfolded. Degenerative changes are present in the spine. No infiltrates, effusions or lung masses are seen. XR/XR chest 2V IMPRESSION: Mild cardiomegaly. No acute intrathoracic disease. Electronically signed by: Angel Pearce MD 09/11/2024 07:03 PM [facility]
--- NOTE | ~2024-09-11 | CT_ITS ---
EXAMINATION: CT CERVICAL SPINE WITHOUT CONTRAST CLINICAL INFORMATION: Status post fall. COMPARISON: CT cervical spine dated September 11, 2024. TECHNIQUE: Contiguous axial images through the cervical spine using 2 mm collimation with bone and soft tissue algorithm. Sagittal and coronal reformatted images acquired. This CT examination was performed using dose optimization techniques as appropriate, variously including the following: *Automated exposure control *Adjustment of mA and/or kV according to patient size (this includes techniques or standardized protocols for targeted exams where dose is matched to indication/reason for exam; i.e. extremities or head) *Use of iterative reconstruction technique DLP: 317 mGy-cm FINDINGS: Craniocervical junction is intact with normal alignment. Degenerative changes in the periodontal C1 region. Incomplete fusion posterior arch of C1, congenital, otherwise C1 is intact.. C2 is intact. C3 is intact. C4 is intact. C5 is intact. C6 is intact. C7 is intact. Grade 1 anterolisthesis C6-7 likely degenerative. Multilevel marginal osteophyte formation and decreased intervertebral disc height endplate sclerosis, C3 C7. Facet joint hypertrophy from C3-4 to C6-7, bilaterally. No gross prevertebral compartment hematoma. Tympanic cavities and mastoid cells are aerated. CT/CT cervical spine wo IV con IMPRESSION: Multilevel cervical spondylosis without acute fracture or trauma-related listhesis. Grade 1 anterolisthesis C6-7 likely degenerative in nature. Fleischner guidelines were followed. Electronically signed by: Srinivasan Baron MD 09/20/2024 12:26 PM [facility]
--- NOTE | ~2024-09-11 | CT_ITS ---
EXAMINATION: CT HEAD WITHOUT CONTRAST CLINICAL INFORMATION: fall, hit head COMPARISON: CT dated September 11, 2024. TECHNIQUE: Contiguous axial imaging was performed from the skull base to vertex without intravenous administration of contrast. This CT examination was performed using dose optimization techniques as appropriate, variously including the following: *Automated exposure control *Adjustment of mA and/or kV according to patient size (this includes techniques or standardized protocols for targeted exams where dose is matched to indication/reason for exam; i.e. extremities or head) *Use of iterative reconstruction technique DLP: 731 mGy-cm FINDINGS: There is a 3 cm soft tissue scalp hematoma, right lateral frontal temporal. The bony calvarium is intact. The skull base is intact. No acute intracranial hemorrhage, mass effect, midline shift, hydrocephalus or herniation. Ornelas-white matter differentiation is normal. Posterior cranial fossa contents demonstrated no acute intracranial hemorrhage or mass effect. Sellar/suprasellar region demonstrated no gross hemorrhage or masses. Superior convex normal-sized pituitary gland. There is no air-fluid levels in the paranasal sinuses. Retention cysts versus polyp, right maxillary sinus. Tympanic cavities and mastoid cells are aerated. Pneumatized right petrous apex. There is a 3 cm soft tissue mass in the right carotid compartment displacing/effacing in the right parapharyngeal fat. CT/CT head/brain wo IV con IMPRESSION: No acute fracture in the bony calvarium. No acute intracranial hemorrhage. 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 Electronically signed by: Srinivasan Baron MD 09/20/2024 12:34 PM [facility]
[2024-09-11 16:41] VITALS: BP 167/61; PULSE 64; RESP 18; TEMP 36.4; O2SAT 99; BMI 23.8
--- NOTE | 2024-09-11 16:41 | ED.GENADULT ---
HPI - General Adult General Chief complaint: Altered Mental Status Stated complaint: Altered Mental Status Changes sent by Dr. Patrick Time Seen by Provider: 09/11/24 21:17 Source: patient, EMS, old records reviewed and other (caregiver Eddie from nursing home) Mode of arrival: EMS Limitations: no limitations History of Present Illness ED Provider: MICHELLE HPI narrative: 68 yo female with PMH of developmental delay, hyperthyroidism, recent fall with sig trauma to face and head but no ICH, UTI, behavioral disturbance she is here today with initial a triage reporting change in MS and speech changes but when I spoke to her and the caregiver patient states she is fine but staff states she is not listening, she gets agitated, she has hurt herself and they cannot manage her at the nursing home she is not safe. Patient has no new trauma and is at baseline on my exam. This period of slow changes and decline seems to be about 8 months. No new behavioral med chagnes. complaint: behavioral changes, concern for safety Onset (ago): month(s) (8) Location: head and face Severity: moderate Relieving factors: none Exacerbating factors: other Associated symptoms: denies other symptoms Treatments prior to arrival: none Related Data Home Medications ?Medication ?Instructions ?Recorded ?Confirmed acetaminophen 500 mg tablet 500 mg PO Q4H PRN pain/fever 01/05/21 07/10/24 aspirin 81 mg tablet,delayed 81 mg PO DAILY 01/05/21 07/10/24 release carbamazepine 200 mg tablet 400 mg PO BEDTIME 01/05/21 07/10/24 loratadine 10 mg tablet 10 mg PO DAILY 01/05/21 07/10/24 multivitamin 1 tab PO DAILY 01/05/21 07/10/24 nystatin 100,000 unit/gram topical 1 appl topical BID PRN Rash 01/05/21 07/10/24 powder ibuprofen 400 mg tablet 400 mg PO TID PRN Pain 01/24/23 07/10/24 methyl salicylate 30 %-menthol 10 1 appl topical BID 01/24/23 07/10/24 % topical cream (Icy Hot) triamcinolone acetonide 0.1 % 1 appl topical BID PRN Skin 01/24/23 07/10/24 topical ointment Irritation melatonin 10 mg tablet 10 mg PO BEDTIME 05/10/23 07/10/24 ferrous sulfate 325 mg (65 mg 325 mg PO MOWEFR 10/02/23 07/10/24 iron) tablet aripiprazole 5 mg tablet (Abilify) 5 mg PO DAILY 03/13/24 07/10/24 ascorbic acid (vitamin C) 500 mg 500 mg PO BID 03/13/24 07/10/24 tablet (Vitamin C) betamethasone dipropionate 0.05 % 1 appl topical BID PRN Dry areas 03/13/24 07/10/24 topical ointment on hand methenamine hippurate 1 gram tablet 1 g PO BID 03/13/24 07/10/24 olanzapine 15 mg tablet 15 mg PO BEDTIME 03/13/24 07/10/24 polyethylene glycol 3350 17 17 g PO DAILY PRN Constipation 03/13/24 07/10/24 gram/dose oral powder trazodone 50 mg tablet 50 mg PO BEDTIME 03/13/24 07/10/24 vibegron 75 mg tablet (Gemtesa) 75 mg PO DAILY 03/13/24 07/10/24 zinc oxide-vitamin B5-vit E 11.3% 1 appl topical BID Rash 03/13/24 07/10/24 topical cream (Balmex Adult Care) Previous Rx's ?Medication ?Instructions ?Recorded sennosides 8.6 mg tablet (Senna 8.6 mg PO BEDTIME PRN constipation 10/05/23 Lax) #30 tabs docusate sodium 100 mg capsule 100 mg PO BID PRN constipation #20 03/18/24 caps polyethylene glycol 3350 17 17 g PO DAILY PRN constipation 03/18/24 gram/dose oral powder (Miralax) #238 grams tamsulosin 0.4 mg capsule 0.4 mg PO DAILY #30 caps 03/18/24 nitrofurantoin 100 mg PO Q12H 7 days #14 caps 04/07/24 monohydrate/macrocrystals 100 mg capsule (Macrobid) levothyroxine 200 mcg tablet 200 mcg PO QAM #30 tabs 05/09/24 cefuroxime axetil 500 mg tablet 500 mg PO BID 7 days #14 tabs 07/03/24 amoxicillin 875 mg-potassium 1 tab PO BID 10 days #20 tabs 08/20/24 clavulanate 125 mg tablet Allergies Allergy/AdvReac Type Severity Reaction Status Date / Time adhesive tape Allergy Intermediate itching Verified 09/11/24 16:47 and skin redness latex Allergy Intermediate skin rash Verified 09/11/24 16:47 and itching Seasonal Allergies Allergy Itching Verified 09/11/24 16:47 weed pollen Allergy stuffy nose Verified 09/11/24 16:47 DUST Allergy Unknown ITCHY/WATERY Uncoded 09/11/24 16:47 EYES surgical paper tape Allergy Unknown rash Uncoded 09/11/24 16:47 Tide Allergy Unknown rash Uncoded 09/11/24 16:47 Review of Systems Review of Systems: Constitutional : No Fever, No Chills, No Fatigue ENT/Mouth : No sore throat, No Rhinorrhea Eyes: No Eye Pain, No Swelling, No Redness Cardiovascular : No Chest Pain, No SOB, No Dyspnea on Exertion Respiratory : No Cough, No Sputum Gastrointestinal : No Nausea, No Vomiting, No Diarrhea, No abdominal Pain Genitourinary : No Dysuria, No Urinary Frequency, No Hematuria, Musculoskeletal : No joint pain, No Myalgias, No Joint Swelling Skin : No Skin Lesions, No rash Neuro : No Weakness, No Numbness, No Dizziness, no Headache All other systems reviewed and are negative [facility] Past Medical History Attestation statement: The following information was validated with the patient. Source: old records reviewed Medical History Abnormal MRI Post-surgical hypothyroidism History of ESBL E. coli infection Toxic multinodular goiter Toxic multinodular goiter Vitamin D deficiency Hyperthyroidism Multinodular thyroid Colon cancer Lung mass Developmental delay, mild Arthritis Surgical History History of carpal tunnel surgery of right wrist Hx of total thyroidectomy History of biopsy Hx of colonic polyps Hx of colonoscopy Family History Family History Father No problems noted. 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 Members: Other Household Members Other:: gr home Unable to assess alcohol history related to: Unknown Alcohol intake: never Patient Tobacco Use Status: Never used Tobacco Smoked in Last 30 Days: No Use of substances other than those prescribed or required for medical reasons: No Advance Directives: Yes Advance Directives on File: Yes Advance Directives Date on File: 01/05/21 service: No Current occupational status: disabled Current occupation: right handed Physical Exam ED Vital Signs: Vital Signs - 24 hr 09/11/24 16:41 09/11/24 21:21 Temperature 97.6 F 98.3 F Pulse Rate 64 61 Respiratory Rate 18 16 Blood Pressure 167/61 H 154/60 H Pulse Oximetry 99 96 Oxygen Delivery Method Room Air Room Air BMI result Body Mass Index 23.8 Appearance: Alert. Oriented X3. No acute distress. Eyes: Pupils equal, round and reactive to light. bilateral facial contusions dark and yellow on both periorbital areas ENT: Pharynx normal. Neck: Normal inspection. Neck supple. CVS: Normal heart rate and rhythm. Pulses normal. Respiratory: No respiratory distress. Breath sounds normal. Abdomen: Soft and nontender. Skin: Skin warm and dry. Normal skin color. Normal skin turgor. Extremities: 1+ pitting bilateral lower extremity edema. No calf ttp fingers are not cyanotic they are red for significant eczema and dried cracked skin - no splinter hemorrhages. no signs of infection Neuro: Oriented X 3. No motor deficit. No sensory deficit. Course Course Course Narrative: This is an RME: Additional HPI, ROS, PE not included below will be deferred to primary provider. RME assessment and note performed by: Majo Alfredo PA-C This is a 83-xnoe-cct-female, with a hx of developmental delay, hyperthyroidism, carpal tunnel syndrome, who presents to the ER, accompanied by nursing home nurse and staff member with increased altered mental status, perseverating, and only sleeping in 10-20 minute intervals. Reports that she also has had some stammering with her speech however states that this has been ongoing for several days now. Pt with left orbital ecchymosis noted. Facility reports that this is something she has had for several weeks after a fall which she was evaluated for however staff reports that patient does fall often without telling the facility. Plan: Labs, EKG, CT head and neck and facial bones, further ER evaluation needed. Reevaluation(s) Reevaluation #1: patient seems more garbled, more confused, not herself, and this has been 2 weeks - decreased zyprexa and increased abilify this was after talking to nursing home RN and automotive generator repairer, patient is not sleeping 1009pm Medical Decision Making Medical Decision Making MDM Narrative: 68 yo female with PMH of developmental delay, hyperthyroidism, recent fall with sig trauma to face and head but no ICH, UTI, behavioral disturbance with worsening behaviors and concern for safety with recent fall - at this time labs, CT scans for new trauma - mass is not causing any mass effect on brain, UA, given staff stating they cannot care for her I am going to order CM and CARE team consult Differential Diagnosis Differential Diagnoses: The differential diagnosis associated with the presentation includes UTI, TBI, behavioral changes Admission/Observation Consideration of admission/observation: Escalation of care including admission/observation considered physician observation started at 10pm pending CM, CARE team Consult Healthcare Provider Management of the patient was discussed with: Cancer Program Coordinator Lab Data MDM Lab Attestation statement: I reviewed the patient's lab results. 09/11/24 17:34 09/11/24 17:35 Labs: Lab Results 09/11/24 09/11/24 Range/Units 17:34 17:35 WBC 7.7 (4.8-10.8) X10*3/uL RBC 3.92 L (4.20-5.50) X10*6/uL Hgb 11.6 L (12.0-16.0) g/dl Hct 35.1 L (37.0-47.0) % MCV 89.5 (80.0-98.0) fL MCH 29.6 (27.0-33.0) pg MCHC 33.0 (31.0-35.0) g/dl RDW 13.5 (11.0-16.0) % Plt Count 265 (160-400) X10*3/uL MPV 9.2 L (9.4-12.3) fL Immature Gran % (Auto) 0.3 (0.0-0.4) % Neut % (Auto) 69.1 (45-73) % Lymph % (Auto) 21.0 (20-40) % [place] % (Auto) 7.8 (2-11) % Eos % (Auto) 1.4 (0-4) % Baso % (Auto) 0.4 (0-2) % Lymph # (Auto) 1.6 (1.2-4.9) X10*3/uL [place] # (Auto) 0.6 (0.1-1.2) X10*3/uL Eos # (Auto) 0.1 (0.0-0.4) X10*3/uL Baso # (Auto) 0.0 (0.0-0.2) X10*3/uL Abs Immat Gran (auto) 0.02 (0.00-0.03) X10*3/uL Absolute Neuts (auto) 5.3 (2.0-8.3) x10*3/uL Absolute Nucleated RBC 0.000 (0.0-0.012) X10*3/uL Nucleated RBC % (auto) 0.0 (0.0-0.2) /100WBC Sodium 139 (135-145) mmol/L Potassium 4.0 (3.3-5.1) mmol/L Chloride 103 (96-108) mmol/L Carbon Dioxide 29 (22-29) mmol/L Anion Gap 11 L (12-20) BUN 24 H (9-16) mg/dL Creatinine 0.75 (0.5-1.4) mg/dL Estim Creat Clear Calc 55.9 Estimated GFR > 60 Random Glucose 102 (60-115) mg/dL Lactic Acid 0.9 (0.5-2.0) mmol/L Calcium 9.6 (8.4-10.2) mg/dL Magnesium 2.2 (1.6-2.6) mg/dL Total Bilirubin 0.3 (0.0-1.0) mg/dL Direct Bilirubin 0.1 (0.0-0.5) mg/dL AST 32 H (5-31) U/L ALT 25 (0-31) U/L Alkaline Phosphatase 124 H (39-117) U/L Ammonia 31 (13-55) umol/L Troponin I High Sens 4.3 (<3.5-17.0) ng/L Total Protein 7.3 (6.5-8.0) g/dL Albumin 3.9 (3.5-5.0) g/dL Lipase 31 (8-78) U/L TSH 2.13 (0.32-4.0) uIU/mL Influenza Type A (PCR) NEGATIVE (Negative) Influenza Type B (PCR) NEGATIVE (Negative) RSV RNA Qual (PCR) NEGATIVE (Negative) SARS-CoV-2 RNA (RT-PCR) NEGATIVE (Negative) Independent Interpretation I performed an independent interpretation of an: EKG, Plain X-Ray (baseline) and CT Scan (no new trauma) Interpretation: Rate: 57 Rhythm : SB 1st degree AVB [place]: normal Normal P waves. Normal TELLO. RBBB ST T wave : inverted t waves V1 and V2, no Daniel qTC:439 prior studies: no sig change The study has been interpreted contemporaneously by me. . Independent Historian Clinical information obtained from an independent historian. History obtained from or confirmed by: Other External Record Review External record reviewed: Inpatient record and Outpatient record Discharge Plan Discharge Clinical Impression: Restlessness and agitation Patient Disposition: Still a Patient Prescriptions: No Action levothyroxine 200 mcg tablet 200 mcg PO QAM Qty: 30 5RF Rx Instructions: 1 tab daily in the morning carbamazepine 200 mg tablet 400 mg PO BEDTIME multivitamin Tablet 1 tab PO DAILY aspirin 81 mg Tablet,Delayed Release (Dr/Ec) 81 mg PO DAILY acetaminophen 500 mg Tablet 500 mg PO Q4H PRN (Reason: pain/fever) nystatin 100,000 unit/gram Powder 1 appl TOPICAL BID PRN (Reason: Rash) Rx Instructions: rash in skin folds loratadine 10 mg Tablet 10 mg PO DAILY triamcinolone acetonide 0.1 % ointment 1 appl topical BID PRN (Reason: Skin Irritation) ibuprofen 400 mg Tablet 400 mg PO TID PRN (Reason: Pain) Icy Hot 30-10 % Cream 1 appl TOPICAL BID Rx Instructions: to back and shoulders ferrous sulfate 325 mg (65 mg iron) Tablet 325 mg PO MOWEFR sennosides [Senna Lax] 8.6 mg Tablet 8.6 mg PO BEDTIME PRN (Reason: constipation) Qty: 30 0RF trazodone 50 mg tablet 50 mg PO BEDTIME olanzapine 15 mg tablet 15 mg PO BEDTIME betamethasone dipropionate 0.05 % ointment 1 appl topical BID PRN (Reason: Dry areas on hand) aripiprazole [Abilify] 5 mg Tablet 5 mg PO DAILY Gemtesa 75 mg tablet 75 mg PO DAILY methenamine hippurate 1 gram tablet 1 g PO BID ascorbic acid (vitamin C) [Vitamin C] 500 mg tablet 500 mg PO BID Balmex Adult Care 11.3 % Cream 1 appl TOPICAL BID Rx Instructions: apply to rash, groin, and buttocks polyethylene glycol 3350 17 gram/dose powder 17 g PO DAILY PRN (Reason: Constipation) docusate sodium 100 mg Capsule 100 mg PO BID PRN (Reason: constipation) Qty: 20 0RF tamsulosin 0.4 mg Capsule 0.4 mg PO DAILY Qty: 30 0RF polyethylene glycol 3350 [Miralax] 17 gram/dose powder 17 g PO DAILY PRN (Reason: constipation) Qty: 238 0RF nitrofurantoin monohyd/m-cryst [Macrobid] 100 mg capsule 100 mg PO Q12H 7 Days Qty: 14 0RF Rx Instructions: must administer with a meal/food cefuroxime axetil 500 mg tablet 500 mg PO BID 7 Days Qty: 14 0RF melatonin 10 mg Tablet 10 mg PO BEDTIME amoxicillin-pot clavulanate 875-125 mg tablet 1 tab PO BID 10 Days Qty: 20 0RF Print Language: Slovak
--- NOTE | 2024-09-11 17:16 | ECG_ITS ---
Test Reason : AMS Blood Pressure : / mmHG Vent. Rate : 057 BPM Atrial Rate : 057 BPM P-R Int : 226 ms QRS Dur : 128 ms QT Int : 452 ms P-R-T Axes : -10 115 032 degrees QTc Int : 439 ms Sinus bradycardia with 1st degree A-V block Right bundle branch block Left posterior fascicular block Bifascicular block Abnormal ECG No previous ECGs available Referred By: Majo Alfredo Electronically Signed By:OSCAR OROZCO MD
[2024-09-11 17:41] LABS: MANUAL DIFF FLAG NO
[2024-09-11 17:42] LABS: Basophils Percent Auto 0.4 % (0-2); Eosinophils Absolute Auto 0.1 X10*3/uL (0.0-0.4); Eosinophils Percent Auto 1.4 % (0-4); Hematocrit 35.1 % (37.0-47.0); Hemoglobin 11.6 g/dl (12.0-16.0); Imm Gran Abs Auto 0.02 X10*3/uL (0.00-0.03); Imm Gran Pct Auto 0.3 % (0.0-0.4); Lymphocytes Absolute Auto 1.6 X10*3/uL (1.2-4.9); Mean Corpuscular Hemoglobin 29.6 pg (27.0-33.0); Mean Corpuscular Volume 89.5 fL (80.0-98.0); Mean Platelet Volume 9.2 fL (9.4-12.3); Monocytes Absolute Auto 0.6 X10*3/uL (0.1-1.2); Monocytes Percent Auto 7.8 % (2-11); Neutrophils Absolute Auto 5.3 x10*3/uL (2.0-8.3); Neutrophils Percent Auto 69.1 % (45-73); Platelet Count 265 X10*3/uL (160-400); Red Blood Count 3.92 X10*6/uL (4.20-5.50); Red Cell Distribution Width 13.5 % (11.0-16.0); White Blood Count 7.7 X10*3/uL (4.8-10.8)
[2024-09-11 17:50] LABS: Ammonia 31 umol/L (13-55)
[2024-09-11 17:57] LABS: Lactic Acid 0.9 mmol/L (0.5-2.0)
[2024-09-11 18:05] LABS: Alanine Aminotransferase 25 U/L (0-31); Albumin Level 3.9 g/dL (3.5-5.0); Alkaline Phosphatase 124 U/L (39-117); Anion Gap 11 (12-20); Aspartate Amino Transferase 32 U/L (5-31); Bilirubin Direct 0.1 mg/dL (0.0-0.5); Bilirubin Total 0.3 mg/dL (0.0-1.0); Blood Urea Nitrogen 24 mg/dL (9-16); Calcium 9.6 mg/dL (8.4-10.2); Carbon Dioxide 29 mmol/L (22-29); Chloride 103 mmol/L (96-108); Creatinine Clr Calc Pharmacy 55.9; Estimated Glomerular Filt Rate > 60; Glucose Random 102 mg/dL (60-115); Lipase 31 U/L (8-78); Magnesium 2.2 mg/dL (1.6-2.6); Sodium 139 mmol/L (135-145); Total Protein 7.3 g/dL (6.5-8.0)
[2024-09-11 18:06] LABS: Troponin-I High Sensitivity 4.3 ng/L (<3.5-17.0)
[2024-09-11 18:18] LABS: Influenza A PCR NEGATIVE (Negative); Influenza B PCR NEGATIVE (Negative); Resp Syncy Virus RNA Qual PCR NEGATIVE (Negative); SARS COV2 PCR INHOUSE NEGATIVE (Negative)
[2024-09-11 18:21] LABS: TSH reflex Free T4 2.13 uIU/mL (0.32-4.0)
[2024-09-11 21:21] VITALS: BP 154/60; PULSE 61; RESP 16; TEMP 36.8; O2SAT 96
--- NOTE | 2024-09-11 22:22 | MHC.CM.ED ---
Addendum entered by Claudia Noel 09/11/24 23:21: Report of CM assessment given to CARE TEAM Original Note: CM met with patient and custodial staff. Pt is cooperative. Poor historian. [facility] staff states patient has not been herself for about 8 months. Vague about issues or concerns. CM reviewed record from custodial. Call placed to Katya Reina RN at [phone]. Message left. Return call. Per Patricia RN, over the past 2-3 weeks the patient is off her baseline.. She is at times confused. Going into other residents rooms, thinking it's her room. Gets argumentative when corrected. Has taken off her clothes in the house, or puts her clothes on backwards. Sits on the toilet backwards and is not sure how to clean herself or uses her clothing after stool. Pt has been very difficult to reason with. This is highly unusual for her. Also states that patient has only been sleeping for 20 minutes to at most 2 hours each night. Pt also has a history of UTI's. Her speech has been more garbled and has had increased salivation. States the patients psychiatrist, Tammy Randall has recently adjusted her abilify and her zyprexa ( within 2 weeks). She has had recent labs that were stable. Pt has a hx of low thyroid. Pt did fall on 09/05. Has significant ecchymosis over her L eye and forehead. 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 Pt has a HCP, but she lives in [place]. ([place] [phone]). Pt does not have a guardian. She tells me she is her own person. She uses a walker. She c/o a headache and is requesting motrin. Dr. Gagnon aware of above. Pt will remain overnight. CARE team will be consulted. CM will follow as needed.
[2024-09-11 22:55] VITALS: BP 147/55; PULSE 59; RESP 16; TEMP 36.8; O2SAT 96
[2024-09-12] VITALS: BP 106/72; PULSE 88; RESP 16; TEMP 36.7; O2SAT 96
[2024-09-12 01:01] VITALS: BP 169/81; PULSE 59; RESP 16; TEMP 36.8; O2SAT 99
[2024-09-12 04:01] VITALS: RESP 18; TEMP 37.1
--- NOTE | 2024-09-12 04:24 | PC.NURSE ---
pt has been sleeping and wakes up asking for crackers/cookies. pt has staff at bedside. pt has been calm and cooperative. needs met. left bruising to eye and forhead no changes.
[2024-09-12 06:18] VITALS: BP 107/62; PULSE 48; RESP 16; O2SAT 99
--- NOTE | 2024-09-12 06:19 | PC.NURSE ---
pt states she doesnt want to pee here. pt did void x1 and then a brief was applied. brief soaked and made aware that we need a urine sample.
--- NOTE | 2024-09-12 06:20 | PC.NURSE ---
pt has slept for brief periods on and off. staff at bedside. pt had a brief on due to refusing to void at the hospital. pt has developmental delay at baseline. pt made aware that we need a urine sample per the doctor.
--- NOTE | 2024-09-12 09:29 | PC.NURSE ---
Straight cath performed for urine spec. Pt tolerated well.
[2024-09-12 09:37] LABS: Appearance Urine Clear; Color Urine Yellow; Glucose Urine UA Negative (Negative); Leukocyte Esterase Urine Negative (Negative); Nitrite Urine Negative (Negative); PH 6.5 (5.0-9.0); Urine Blood Negative (Negative); Urine Ketones Negative (Negative); Urine Protein Negative (Neg-Trace)
--- NOTE | 2024-09-12 10:27 | MHC.CM.ED ---
Patient remains in ER overflow. Care Team consult is pending. Will defer CM consult until consult is completed.
--- NOTE | 2024-09-12 11:37 | PHA.MEDREC ---
Addendum entered by Camille Daniel RPh 09/12/24 11:40: Reviewed by [facility] Original Note: Pharmacy Consult ? Medication Reconciliation Pharmacy has completed the medication reconciliation. Utilized list from [facility] to confirm med list.
--- NOTE | 2024-09-12 11:49 | MHC.CARE ---
Pt meets the criteria for IPLOC and will be a [facility] bed search at this time. Section 12a in chart. Provider in agreement.
--- NOTE | 2024-09-12 11:51 | MHC.CM.ED ---
Patient is inpatient [facility] bed search. No CM intervention required at this time.
--- NOTE | 2024-09-12 14:10 | PC.NURSE ---
Rn to RN report completed--Pt admitted to S1.
--- NOTE | 2024-09-12 14:44 | PC.NURSE ---
S1 staff to ED to transport Pt. Pt has left the unit.
[2024-09-12 15:46] VITALS: BP 197/81; PULSE 64; RESP 18; TEMP 36.3; O2SAT 93; BMI 23.0
[2024-09-12 15:59] LABS: Alanine Aminotransferase 23 U/L (0-31); Albumin Level 3.8 g/dL (3.5-5.0); Alkaline Phosphatase 123 U/L (39-117); Anion Gap 10 (12-20); Aspartate Amino Transferase 31 U/L (5-31); Bilirubin Total 0.2 mg/dL (0.0-1.0); Blood Urea Nitrogen 17 mg/dL (9-16); Calcium 9.6 mg/dL (8.4-10.2); Carbon Dioxide 27 mmol/L (22-29); Chloride 107 mmol/L (96-108); Creatinine Clr Calc Pharmacy 66.6; Estimated Glomerular Filt Rate > 60; Glucose Random 84 mg/dL (60-115); Potassium 4.2 mmol/L (3.3-5.1); Sodium 140 mmol/L (135-145); Total Protein 7.2 g/dL (6.5-8.0)
--- NOTE | 2024-09-12 16:15 | PC.ADMIT ---
Patient was admitted to us at 14:45 from the ED POD on a CV for treatment of psychosis. Patient was initially admitted to [facility] after staff at her detention reported a change in the patients mental status, along with poor sleep and behavioral episodes . It was also reported that the patient had a recent fall prior to her admission along with an adjustment in her medications 2 weeks ago. Upon assessment, Kirsten is A&Ox3, insight into her situation is limited and pt appears developmentally delayed. Her thought process is slightly disorganized, and pt tends to become easily distracted but redirectable. She denies any past trauma, along with depression/anxiety and any feelings of wanting to hurt herself or others. Patient reports needing help with ADL's but ambulates independently with the use of her walker at home. Skin assessment was completed with another nurse, all skin on patients body appears WDI, with the exception of bilateral periorbital bruising, along with an egg shaped bump above the patients left eye (which she attributes to her recent fall), though she denies any pain. Patient has been placed on 5 minute checks for safety.
[2024-09-12 20:00] VITALS: BP 129/76; PULSE 97; RESP 16; TEMP 37.2; O2SAT 97
[2024-09-12] MEDS: carBAMazepine 200 MG TABLET 400 MG PO (20:19)
[2024-09-12] MEDS: Ascorbic Acid 500 MG TABLET PO (20:20)
[2024-09-12] MEDS: OLANZapine 5 MG TABLET PO (20:20)
[2024-09-12] MEDS: Methenamine Hippurate 1 GM TABLET PO (20:20)
[2024-09-12] MEDS: Acetaminophen 325 MG TABLET 650 MG PO (20:21)
[2024-09-12] MEDS: traZODone HCL 50 MG TABLET PO (22:01)
[2024-09-13] MEDS: Acetaminophen 325 MG TABLET 650 MG PO ×2 (03:06→21:22)
[2024-09-13 08:00] VITALS: BP 134/83; PULSE 74; RESP 16; TEMP 36.6; O2SAT 97
[2024-09-13] MEDS: Levothyroxine Sodium 200 MCG TABLET PO (08:41)
[2024-09-13] MEDS: Methenamine Hippurate 1 GM TABLET PO ×2 (08:42→21:23)
[2024-09-13] MEDS: Aspirin Enteric Coated 81 MG TABLET.DR PO (08:42)
[2024-09-13] MEDS: Ascorbic Acid 500 MG TABLET PO ×2 (08:42→21:23)
[2024-09-13] MEDS: ARIPiprazole 5 MG TABLET PO (08:42)
--- NOTE | 2024-09-13 08:54 | HO.PSYADMNOT ---
HPI Date of Service: 09/13/24 Chief Complaint: Combative behaviors Sources of Information: patient interviewed, chart reviewed and crisis/core team assessment reviewed HPI Subjective Notes: Hicks Warning and Conditional Voluntary Narrative: is a 68 year-old woman with hx of developmental delay, who has resided in a [facility] home for several years. She was brought via EMS from due to 3 week long change in behavior including appearing more confused using clothes to clean after bowel movement, using shoes in wrong way, going to other resident's room, intermittent agitation. She also has been presenting with increased salivation, dysarthria, noted on exam mild bilat cogwheel upper extremities and frequent falls. She recently had fall and has left side frontal hematoma. She recently had medication changes including abilify was increased from 5mg po daily to 15mg po daily and olanzapine decreased from 15mg po qhs to 5mg. Pt does not have hx of psychiatric admission. She has had episodes of increased confusion and some psychosis in setting of UTI (she was admitted medically here at [facility] in 10/2023 with delirium in setting of UTI and DOMINICK). Pertinent labs completed in ED include CBC without leukocitosis or leukopenia, chronic normocytic anemia. BUN slightly elevated 24, Cr 0.75, creatinine clearance 55.9. Slight elevation in AST, normal ALT Alkaline Phos. elevated 124. ammonia wnl. UA did not show s/s of UTI. Head CT without acute pathology, but does show atrophy and microvascular changes. On the unit, pt reports she is here because she felt. She reports she has not been able to sleep. She denies SI/HI. No signs of psychosis or delusions. She agrees to be here on the unit for treatment. In terms of behavioral changes, pt does not have insight into some of combative behaviors observed at , including more irritability, intrusive behaviors. She was noted here on the unit to get easily frustrated when asked for phone number of a person we did not have a phone number for. She began crying, then yelling and shouting at staff. She did eventually calm down and was redirected. She is noted to be drooling, which staff reports is fairly new along with periods of dysarthria. Unclear what may be causing it. Noted mild cogwheel on both arms at the wrist, not so much at elbow. No ataxic gait. Past Psychiatric History: OP: Tammy Randall past medication trials: abilify, carbamazepine, cogentin Medical Evaluation Reviewed: Yes [facility] Medical History Abnormal MRI Post-surgical hypothyroidism History of ESBL E. coli infection Toxic multinodular goiter Toxic multinodular goiter Vitamin D deficiency Hyperthyroidism Multinodular thyroid Colon cancer Lung mass Developmental delay, mild Arthritis Surgical History History of carpal tunnel surgery of right wrist Hx of total thyroidectomy History of biopsy Hx of colonic polyps Hx of colonoscopy Family History: unknown Substance History: None Trauma History: Not disclosed Diagnostics Vital Signs (24Hr): Vital Signs - 24 hr 09/12/24 15:46 09/12/24 20:00 Temperature 97.3 F 98.9 F Pulse Rate 64 97 Respiratory Rate 18 16 Blood Pressure 197/81 H 129/76 Pulse Oximetry 93 97 Oxygen Delivery Method Room Air Room Air BMI result Body Mass Index 23.0 Labs 09/11/24 17:34 09/12/24 15:35 Labs: Laboratory Results - last 48 hr 09/11/24 09/11/24 09/12/24 17:34 17:35 09:31 WBC 7.7 RBC 3.92 L Hgb 11.6 L Hct 35.1 L MCV 89.5 MCH 29.6 MCHC 33.0 RDW 13.5 Plt Count 265 MPV 9.2 L Immature Gran % (Auto) 0.3 Neut % (Auto) 69.1 Lymph % (Auto) 21.0 [place] % (Auto) 7.8 Eos % (Auto) 1.4 Baso % (Auto) 0.4 Lymph # (Auto) 1.6 [place] # (Auto) 0.6 Eos # (Auto) 0.1 Baso # (Auto) 0.0 Abs Immat Gran (auto) 0.02 Absolute Neuts (auto) 5.3 Absolute Nucleated RBC 0.000 Nucleated RBC % (auto) 0.0 Hold Purple Top Sodium 139 Potassium 4.0 Chloride 103 Carbon Dioxide 29 Anion Gap 11 L BUN 24 H Creatinine 0.75 Estim Creat Clear Calc 55.9 Estimated GFR > 60 Random Glucose 102 Lactic Acid 0.9 Calcium 9.6 Magnesium 2.2 Total Bilirubin 0.3 Direct Bilirubin 0.1 AST 32 H ALT 25 Alkaline Phosphatase 124 H Ammonia 31 Troponin I High Sens 4.3 Total Protein 7.3 Albumin 3.9 Lipase 31 TSH 2.13 Urine Color Yellow Urine Appearance Clear Urine pH 6.5 Ur Specific [place] 1.010 Urine Protein Negative Urine Glucose (UA) Negative Urine Ketones Negative Urine Blood Negative Urine Nitrite Negative Ur Leukocyte Esterase Negative Influenza Type A (PCR) NEGATIVE Influenza Type B (PCR) NEGATIVE RSV RNA Qual (PCR) NEGATIVE SARS-CoV-2 RNA (RT-PCR) NEGATIVE 09/12/24 09/12/24 15:35 15:39 WBC RBC Hgb Hct MCV MCH MCHC RDW Plt Count MPV Immature Gran % (Auto) Neut % (Auto) Lymph % (Auto) [place] % (Auto) Eos % (Auto) Baso % (Auto) Lymph # (Auto) [place] # (Auto) Eos # (Auto) Baso # (Auto) Abs Immat Gran (auto) Absolute Neuts (auto) Absolute Nucleated RBC Nucleated RBC % (auto) Hold Purple Top SEE NOTE Sodium 140 Potassium 4.2 Chloride 107 Carbon Dioxide 27 Anion Gap 10 L BUN 17 H Creatinine 0.63 Estim Creat Clear Calc 66.6 Estimated GFR > 60 Random Glucose 84 Lactic Acid Calcium 9.6 Magnesium Total Bilirubin 0.2 Direct Bilirubin AST 31 ALT 23 Alkaline Phosphatase 123 H Ammonia Troponin I High Sens Total Protein 7.2 Albumin 3.8 Lipase TSH Urine Color Urine Appearance Urine pH Ur Specific [place] Urine Protein Urine Glucose (UA) Urine Ketones Urine Blood Urine Nitrite Ur Leukocyte Esterase Influenza Type A (PCR) Influenza Type B (PCR) RSV RNA Qual (PCR) SARS-CoV-2 RNA (RT-PCR) Imaging Radiology Impressions: ITS Impressions Chest X-Ray 09/11/24 16:48 IMPRESSION: Mild cardiomegaly. No acute intrathoracic disease. Electronically signed by: Angel Pearce MD 09/11/2024 07:03 PM [facility] Head CT 09/11/24 16:49 IMPRESSION: 1. No evidence of acute intracranial hemorrhage or edematous territorial infarction. Moderate underlying microangiopathy and generalized cerebral volume loss. 2. No evidence of acute fracture or traumatic subluxation of the cervical spine. Moderate multilevel degenerative spondyloarthropathy of the cervical spine. Most notably on this limited exam without intrathecal contrast, there appears to be at least mild spinal canal stenosis at C3-C4. 3. No evidence of acute fracture of the maxillofacial bones. 4. Left frontal scalp and facial hematoma without associated acute osseous abnormalities. 5. 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 Recommend further characterization with dedicated post-contrast CT or MR of the neck. Electronically signed by: Bandar Shah DO 09/11/2024 07:42 PM EST RP Cervical Spine CT 09/11/24 17:01 IMPRESSION: 1. No evidence of acute intracranial hemorrhage or edematous territorial infarction. Moderate underlying microangiopathy and generalized cerebral volume loss. 2. No evidence of acute fracture or traumatic subluxation of the cervical spine. Moderate multilevel degenerative spondyloarthropathy of the cervical spine. Most notably on this limited exam without intrathecal contrast, there appears to be at least mild spinal canal stenosis at C3-C4. 3. No evidence of acute fracture of the maxillofacial bones. 4. Left frontal scalp and facial hematoma without associated acute osseous abnormalities. 5. 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 Recommend further characterization with dedicated post-contrast CT or MR of the neck. Electronically signed by: Bandar Shah DO 09/11/2024 07:42 PM EST RP Face CT 09/11/24 17:01 IMPRESSION: 1. No evidence of acute intracranial hemorrhage or edematous territorial infarction. Moderate underlying microangiopathy and generalized cerebral volume loss. 2. No evidence of acute fracture or traumatic subluxation of the cervical spine. Moderate multilevel degenerative spondyloarthropathy of the cervical spine. Most notably on this limited exam without intrathecal contrast, there appears to be at least mild spinal canal stenosis at C3-C4. 3. No evidence of acute fracture of the maxillofacial bones. 4. Left frontal scalp and facial hematoma without associated acute osseous abnormalities. 5. 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 Recommend further characterization with dedicated post-contrast CT or MR of the neck. Electronically signed by: Bandar Shah DO 09/11/2024 07:42 PM EST Meds/Allergies Meds Home Medications ?Medication ?Instructions ?Recorded ?Confirmed ?Type aspirin 81 mg tablet,delayed 81 mg PO DAILY 01/05/21 09/12/24 History release carbamazepine 200 mg tablet 400 mg PO BEDTIME 01/05/21 09/12/24 History loratadine 10 mg tablet 10 mg PO DAILY 01/05/21 09/12/24 History multivitamin 1 tab PO DAILY 01/05/21 09/12/24 History nystatin 100,000 unit/gram topical 1 appl topical BID PRN Rash 01/05/21 09/12/24 History powder ibuprofen 400 mg tablet 400 mg PO TID PRN Pain 01/24/23 09/12/24 History methyl salicylate 30 %-menthol 10 1 appl topical BID 01/24/23 09/12/24 History % topical cream (Icy Hot) triamcinolone acetonide 0.1 % 1 appl topical BID PRN Skin 01/24/23 09/12/24 History topical ointment Irritation melatonin 10 mg tablet 10 mg PO BEDTIME 05/10/23 09/12/24 History ferrous sulfate 325 mg (65 mg 325 mg PO MOWEFR 10/02/23 09/12/24 History iron) tablet aripiprazole 5 mg tablet (Abilify) 15 mg PO DAILY 03/13/24 09/12/24 History ascorbic acid (vitamin C) 500 mg 500 mg PO BID 03/13/24 09/12/24 History tablet (Vitamin C) betamethasone dipropionate 0.05 % 1 appl topical BID PRN Dry areas 03/13/24 09/12/24 History topical ointment on hand methenamine hippurate 1 gram tablet 1 g PO BID 03/13/24 09/12/24 History trazodone 50 mg tablet 50 mg PO BEDTIME 03/13/24 09/12/24 History vibegron 75 mg tablet (Gemtesa) 75 mg PO DAILY 03/13/24 09/12/24 History zinc oxide-vitamin B5-vit E 11.3% 1 appl topical BID Rash 03/13/24 09/12/24 History topical cream (Balmex Adult [facility]) acetaminophen 500 mg tablet 500 mg PO Q4H PRN fever greater 09/12/24 09/12/24 History than 100 carbamazepine 200 mg tablet 200 mg PO DAILY 09/12/24 09/12/24 History guaifenesin 100 mg/5 mL oral liquid 200 mg PO QID PRN Cough 09/12/24 09/12/24 History lactulose 10 gram/15 mL oral 15 ml PO DAILY PRN Constipation 09/12/24 09/12/24 History solution olanzapine 5 mg tablet 5 mg PO BEDTIME 09/12/24 09/12/24 History polyethylene glycol 3350 17 8.5 g PO DAILY PRN constipation 09/12/24 09/12/24 History gram/dose oral powder (Miralax) sennosides 8.6 mg tablet (Senna 8.6 mg PO Q48H PRN constipation 09/12/24 09/12/24 History Lax) Allergies Allergies Allergy/AdvReac Type Severity Reaction Status Date / Time adhesive tape Allergy Intermediate itching Verified 09/11/24 16:47 and skin redness latex Allergy Intermediate skin rash Verified 09/11/24 16:47 and itching Seasonal Allergies Allergy Itching Verified 09/11/24 16:47 weed pollen Allergy stuffy nose Verified 09/11/24 16:47 DUST Allergy Unknown ITCHY/WATERY Uncoded 09/11/24 16:47 EYES surgical paper tape Allergy Unknown rash Uncoded 09/11/24 16:47 Tide Allergy Unknown rash Uncoded 09/11/24 16:47 Mental Status Exam Mental Status Exam Narrative: Appearance: wearing casual clothing, fair hygiene, in NAD Behavior: cooperative, friendly Psychomotor: no tremors, mild cogwheel on both wrists, drooling, no involuntary tongue movement. Speech: mumbles at times, periods of stuttering, regular rate/rhythm/volume, spontaneous TP: poverty of thought, tangential TC: wanting phone number of Mirna Mood: okay Affect: congruent SI: none HI: none VH/AH: none Delusions: none Insight/judgment: impaired x2 Memory/cog: alert, oriented to place, month, year. Assessment & Plan Assessment & Plan (1) Mood disorder due to a general medical condition: Status: Acute Code(s): F06.30 - Mood disorder due to known physiological condition, unspecified Plan Ms. Ronquillo is a 68 year-old woman with hx of developmental condition (unclear specific etiology) who resides at [facility]. She was brought to the hospital due to changes in behavior including putting clothe in wrong parts, increasingly more agitated with peers and staff, not sleeping. Also, new onset drooling, which has also affected her speech and she has some dysartria. Recent increase in abilify to 15mg po daily, unclear if this may be source. Pending further collateral information. Will continue carbamazepine, which has been used as mood stabilizer. will check tegretol levels in few days. Will try seroquel for combative behaviors as result of low frustration tolerance- if effecting and not overly sedating will attempt to keep on only one antipsychotic and dc abilify. Will add trazodone for sleep- 75mg po qhs as she has not been sleeping and may aid with drooling. PLAN 1. admit to S1, CV, 5 mins checks 2. lower abilify to 5mg po daily. Start seroquel 50mg po BID for labile/low frustration tolerance combative behaviors. monitor sedation. d/c olanzapine. add trazodone 75mg po qhs- only slept about 2 hrs in 15 mins increments. Continue Carbamazepine. 3. obtain collateral information 4. aftercare planning. Patient educated on: diagnosis and medication risk/benefits Guardian/Caregiver educated on: diagnosis and medication risk/benefits Informed Consent: understands Reason for continued inpatient stay Substantial Risk for: inability to function Statement Statement: I have reviewed the history and physical and performed a pertinent examination on my patient. No changes have occurred unless specified. If the History and Physical was not performed prior to admission, the Hospitalist's service will be consulted for completing the admission physical. Time Spent With Patient Time: Total time managing care of this patient today ____ minutes.
--- NOTE | 2024-09-13 12:51 | MHC.SL.SWA ---
Speech Pathologist Impression: Risk of Aspiration, Oral Phase Dysphagia Risk of Aspiration Due to: Reduced Cognition Dysphasia Diet Status: Downgrade to NDD3 Liquid Consistency and Strategies for Safe Swallow: Liquid Intake Recommendation: Thin Liquid Intake Strategies: Small Sips Solid Food Consistency: Dietary Recommendations: Chopped/Advanced (NDD3) Additional Modifications to Solid Foods: Patient w/ limited dentition, prolonged mastication on harder solids. Patient observed with unsafe eating behaviors and impulsivity. Patient tends to pack large amounts of food in her mouth and take quick sequential sips. She is recommended chopped/advanced diet (NDD3) for ease of mastication and thin liquids, pills whole or crushed in puree. Patient will need 1:1 supervision and cuing for strategies: -take small bites -chew food well -clear oral cavity before taking next bite -alternate with sips of liquid -liquids by teaspoon or cup -take one sip at a time -maintain upright 90 degree position during PO intake -minimize distractions at mealtime Oral Medication Intake: Whole with Puree Please contact the pharmacy regarding appropriate crushable or liquid drug formulations that are available whenever modified delivery is recommended. Compensatory Strategies and Precautions to be Taken for Safe Swallow: Sitting Upright (90 deg) Small Bites and Sips Alternate Liquids/Solids Rate of Ingestion Change Avoid Specific Foods Supervision While Eating and Drinking for Safe Swallow: Total Supervision (1:1) Foods to Avoid: Hard to chew solids Swallowing Recommended Treatments: Compens. Strategy Educat. Recommendation for Speech: Inpatient Speech Therapy Comment: 1-2 f/u Frequency/Duration: Date Range for Service Req: Timeline to reassess: Evening Or Night Nurse Supervisor Clinican/Clinical Fellow: No Supervisory Statement: I have reviewed and agree with the student/clinical fellow's documentation: N/A Speech Language Pathologist: Yasmine Sinha M.A., CCC-GLASSINE MACHINE TENDER
[2024-09-13] MEDS: QUEtiapine Fumarate 50 MG TABLET PO ×3 (14:12→21:23)
[2024-09-13] MEDS: Ferrous Sulfate 324 MG TABLET.DR PO (14:19)
[2024-09-13 20:00] VITALS: BP 118/61; PULSE 76; RESP 18; TEMP 36.9; O2SAT 98
[2024-09-13] MEDS: traZODone HCL 25 MG HALFTAB 75 MG PO (21:23)
[2024-09-13] MEDS: carBAMazepine 200 MG TABLET 400 MG PO (21:34)
[2024-09-14] MEDS: Levothyroxine Sodium 200 MCG TABLET PO (05:25)
--- NOTE | 2024-09-14 06:35 | P.PNPSI_ITS ---
Subjective Subjective Date of Service: 09/14/24 Reason For Visit: Combative behaviors Subjective Notes: Section 12B Interim History: The nursing staff reported that the patient had been loud, redirectable but disorganized at times. On interview the patient is severely cognitively impaired but compliant with treatment. Mental Status Exam Mental Status Exam Patient Appearance: Appropriate Patient Orientation: Person Level of Consciousness: Awake and Appropriate Patient Behavior: Guarded and Passive Mood Description: Withdrawn Affect Description: Constricted Patient Cognition Impaired: Yes Ability to Follow Directions: Good Speech Pattern: Clear Hallucinations: None Delusions: Not Present Thought Process: Distracted and Slowed Thinking Thought Content: positive for [place] and positive for Poverty of Content Judgement: Poor Diagnostics Vital Signs (24Hr): Vital Signs - 24 hr 09/13/24 08:00 09/13/24 20:00 Temperature 97.9 F 98.5 F Pulse Rate 74 76 Respiratory Rate 16 18 Blood Pressure 134/83 118/61 Pulse Oximetry 97 98 Oxygen Delivery Method Room Air Room Air BMI result Body Mass Index 23.0 Labs 09/11/24 17:34 09/12/24 15:35 Labs: Laboratory Results - last 48 hr 09/12/24 09/12/24 09/12/24 09:31 15:35 15:39 Hold Purple Top SEE NOTE Sodium 140 Potassium 4.2 Chloride 107 Carbon Dioxide 27 Anion Gap 10 L BUN 17 H Creatinine 0.63 Estim Creat Clear Calc 66.6 Estimated GFR > 60 Random Glucose 84 Calcium 9.6 Total Bilirubin 0.2 AST 31 ALT 23 Alkaline Phosphatase 123 H Total Protein 7.2 Albumin 3.8 Urine Color Yellow Urine Appearance Clear Urine pH 6.5 Ur Specific [place] 1.010 Urine Protein Negative Urine Glucose (UA) Negative Urine Ketones Negative Urine Blood Negative Urine Nitrite Negative Ur Leukocyte Esterase Negative Imaging Radiology Impressions: ITS Impressions Chest X-Ray 09/11/24 16:48 IMPRESSION: Mild cardiomegaly. No acute intrathoracic disease. Electronically signed by: Angel Pearce MD 09/11/2024 07:03 PM [facility] Head CT 09/11/24 16:49 IMPRESSION: 1. No evidence of acute intracranial hemorrhage or edematous territorial infarction. Moderate underlying microangiopathy and generalized cerebral volume loss. 2. No evidence of acute fracture or traumatic subluxation of the cervical spine. Moderate multilevel degenerative spondyloarthropathy of the cervical spine. Most notably on this limited exam without intrathecal contrast, there appears to be at least mild spinal canal stenosis at C3-C4. 3. No evidence of acute fracture of the maxillofacial bones. 4. Left frontal scalp and facial hematoma without associated acute osseous abnormalities. 5. 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 Recommend further characterization with dedicated post-contrast CT or MR of the neck. Electronically signed by: Bandar Shah DO 09/11/2024 07:42 PM EST RP Cervical Spine CT 09/11/24 17:01 IMPRESSION: 1. No evidence of acute intracranial hemorrhage or edematous territorial infarction. Moderate underlying microangiopathy and generalized cerebral volume loss. 2. No evidence of acute fracture or traumatic subluxation of the cervical spine. Moderate multilevel degenerative spondyloarthropathy of the cervical spine. Most notably on this limited exam without intrathecal contrast, there appears to be at least mild spinal canal stenosis at C3-C4. 3. No evidence of acute fracture of the maxillofacial bones. 4. Left frontal scalp and facial hematoma without associated acute osseous abnormalities. 5. 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 Recommend further characterization with dedicated post-contrast CT or MR of the neck. Electronically signed by: Bandar Shah DO 09/11/2024 07:42 PM EST RP Face CT 09/11/24 17:01 IMPRESSION: 1. No evidence of acute intracranial hemorrhage or edematous territorial infarction. Moderate underlying microangiopathy and generalized cerebral volume loss. 2. No evidence of acute fracture or traumatic subluxation of the cervical spine. Moderate multilevel degenerative spondyloarthropathy of the cervical spine. Most notably on this limited exam without intrathecal contrast, there appears to be at least mild spinal canal stenosis at C3-C4. 3. No evidence of acute fracture of the maxillofacial bones. 4. Left frontal scalp and facial hematoma without associated acute osseous abnormalities. 5. 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 Recommend further characterization with dedicated post-contrast CT or MR of the neck. Electronically signed by: Bandar Shah DO 09/11/2024 07:42 PM [facility] Medications Medications Current Medications Acetaminophen (Acetaminophen 325 Mg Tablet) 650 mg PO Q6H PRN PRN Reason: Headache/Pain Mild Scale (1-3) Last Admin: 09/13/24 21:22 Dose: 650 mg Al Hydroxide/Mg Hydroxide (Magnesium Hydrox/Alum Hydrox 30 Ml Oral.Susp) 30 ml PO Q6H PRN PRN Reason: Heartburn/Nausea Aripiprazole (Aripiprazole 5 Mg Tablet) 5 mg PO DAILY [facility] Last Admin: 09/13/24 08:42 Dose: 5 mg Ascorbic Acid (Ascorbic Acid 500 Mg Tablet) 500 mg PO BID [facility] Last Admin: 09/13/24 21:23 Dose: 500 mg Aspirin (Aspirin Enteric Coated 81 Mg Tablet.) 81 mg PO DAILY [facility] Last Admin: 09/13/24 08:42 Dose: 81 mg Carbamazepine (Carbamazepine 200 Mg Tablet) 400 mg PO BEDTIME [facility] Last Admin: 09/13/24 21:34 Dose: 400 mg Ferrous Sulfate (Ferrous Sulfate 324 Mg Tablet.) 324 mg PO MOWEFR [facility] Last Admin: 09/13/24 14:19 Dose: 324 mg Levothyroxine Sodium (Levothyroxine Sodium 200 Mcg Tablet) 200 mcg PO DAILY@0600 [facility] Last Admin: 09/14/24 05:25 Dose: 200 mcg Magnesium Hydroxide (Milk Of Magnesia 30 Ml Oral.Susp) 30 ml PO DAILY PRN PRN Reason: Constipation Methenamine Hippurate (Methenamine Hippurate 1 Gm Tablet) 1 gm PO BID [facility] Last Admin: 09/13/24 21:23 Dose: 1 gm Quetiapine Fumarate (Quetiapine Fumarate 50 Mg Tablet) 50 mg PO BID [facility] Last Admin: 09/13/24 21:23 Dose: 50 mg Quetiapine Fumarate (Quetiapine Fumarate 50 Mg Tablet) 50 mg PO Q6H PRN PRN Reason: agitation Last Admin: 09/13/24 17:02 Dose: 50 mg Trazodone HCl (Trazodone Hcl 25 Mg Halftab) 75 mg PO BEDTIME [facility] Last Admin: 09/13/24 21:23 Dose: 75 mg Trazodone HCl (Trazodone Hcl 50 Mg Tablet) 50 mg PO BEDTIME PRN PRN Reason: sleep Allergies Allergies Allergy/AdvReac Type Severity Reaction Status Date / Time adhesive tape Allergy Intermediate itching Verified 09/11/24 16:47 and skin redness latex Allergy Intermediate skin rash Verified 09/11/24 16:47 and itching Seasonal Allergies Allergy Itching Verified 09/11/24 16:47 weed pollen Allergy stuffy nose Verified 09/11/24 16:47 DUST Allergy Unknown ITCHY/WATERY Uncoded 09/11/24 16:47 EYES surgical paper tape Allergy Unknown rash Uncoded 09/11/24 16:47 Tide Allergy Unknown rash Uncoded 09/11/24 16:47 Assessment & Plan Assessment & Plan (1) Developmental delay, mild: Status: Acute Code(s): R62.50 - Unspecified lack of expected normal physiological development in childhood (2) Mood disorder due to a general medical condition: Status: Acute Code(s): F06.30 - Mood disorder due to known physiological condition, unspecified Plan The patient is a 68-year-old female with a past history of chronic cognitive impairment, DDS involved, resident of a longterm who was admitted for exacerbation of disorganized behavior, yelling and changes in her mental status. Plan 1. Gather collateral information. 2. Continue with psychotropics as prescribed. 3. The patient has a guardian and most likely we will have to talk with DDS and other providers for coordination of care. 4. Fifteen minute checks. Reason for continued inpatient stay Substantial Risk for: inability to function, rapid decompensation and med/psych decompensation Time Spent With Patient Time: Total time managing care of this patient today __20__ minutes.
[2024-09-14 08:25] VITALS: BP 148/70; PULSE 88; RESP 18; TEMP 37.1; O2SAT 98
[2024-09-14] MEDS: Methenamine Hippurate 1 GM TABLET PO ×2 (08:30→21:09)
[2024-09-14] MEDS: Ascorbic Acid 500 MG TABLET PO ×2 (08:30→21:10)
[2024-09-14] MEDS: QUEtiapine Fumarate 50 MG TABLET PO ×3 (08:30→21:10)
[2024-09-14] MEDS: ARIPiprazole 5 MG TABLET PO (08:30)
[2024-09-14] MEDS: Aspirin Enteric Coated 81 MG TABLET.DR PO (08:30)
[2024-09-14 20:00] VITALS: BP 132/77; PULSE 83; RESP 18; TEMP 36.9; O2SAT 97
[2024-09-14] MEDS: traZODone HCL 25 MG HALFTAB 75 MG PO (21:09)
[2024-09-14] MEDS: Acetaminophen 325 MG TABLET 650 MG PO (21:10)
[2024-09-14] MEDS: carBAMazepine 200 MG TABLET 400 MG PO (21:10)
[2024-09-15] MEDS: Levothyroxine Sodium 200 MCG TABLET PO (06:04)
--- NOTE | 2024-09-15 06:35 | P.PNPSI_ITS ---
Subjective Subjective Date of Service: 09/15/24 Reason For Visit: Combative behaviors Healthcare Proxy: Yes Guardianship: Yes Interim History: The nursing staff reported the patient has been alert oriented x3 visible in the unit, she watch TV. She was seen in the common areas and she can be loud at times, compliant with treatment. On interview the patient remains irritable at times. We are going to increase the Seroquel to 50 mg p.o. t.i.d.. Mental Status Exam Mental Status Exam Patient Appearance: Appropriate Patient Orientation: Person and Situation Level of Consciousness: Awake Patient Behavior: Guarded and Passive Mood Description: Withdrawn Affect Description: Labile Patient Cognition Impaired: Yes Ability to Follow Directions: Good Speech Pattern: Clear Hallucinations: None Delusions: Ideas of Reference Thought Process: Distracted and Slowed Thinking Thought Content: positive for [place] and positive for Poverty of Content Judgement: Poor Diagnostics Vital Signs (24Hr): Vital Signs - 24 hr 09/14/24 08:25 09/14/24 20:00 Temperature 98.7 F 98.4 F Pulse Rate 88 83 Respiratory Rate 18 18 Blood Pressure 148/70 H 132/77 Pulse Oximetry 98 97 Oxygen Delivery Method Room Air Room Air BMI result Body Mass Index 23.0 Labs 09/11/24 17:34 09/12/24 15:35 Imaging Radiology Impressions: ITS Impressions Chest X-Ray 09/11/24 16:48 IMPRESSION: Mild cardiomegaly. No acute intrathoracic disease. Electronically signed by: Angel Pearce MD 09/11/2024 07:03 PM [facility] Head CT 09/11/24 16:49 IMPRESSION: 1. No evidence of acute intracranial hemorrhage or edematous territorial infarction. Moderate underlying microangiopathy and generalized cerebral volume loss. 2. No evidence of acute fracture or traumatic subluxation of the cervical spine. Moderate multilevel degenerative spondyloarthropathy of the cervical spine. Most notably on this limited exam without intrathecal contrast, there appears to be at least mild spinal canal stenosis at C3-C4. 3. No evidence of acute fracture of the maxillofacial bones. 4. Left frontal scalp and facial hematoma without associated acute osseous abnormalities. 5. 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 Recommend further characterization with dedicated post-contrast CT or MR of the neck. Electronically signed by: Bandar Shah DO 09/11/2024 07:42 PM EST RP Cervical Spine CT 09/11/24 17:01 IMPRESSION: 1. No evidence of acute intracranial hemorrhage or edematous territorial infarction. Moderate underlying microangiopathy and generalized cerebral volume loss. 2. No evidence of acute fracture or traumatic subluxation of the cervical spine. Moderate multilevel degenerative spondyloarthropathy of the cervical spine. Most notably on this limited exam without intrathecal contrast, there appears to be at least mild spinal canal stenosis at C3-C4. 3. No evidence of acute fracture of the maxillofacial bones. 4. Left frontal scalp and facial hematoma without associated acute osseous abnormalities. 5. 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 Recommend further characterization with dedicated post-contrast CT or MR of the neck. Electronically signed by: Bandar Shah DO 09/11/2024 07:42 PM EST RP Face CT 09/11/24 17:01 IMPRESSION: 1. No evidence of acute intracranial hemorrhage or edematous territorial infarction. Moderate underlying microangiopathy and generalized cerebral volume loss. 2. No evidence of acute fracture or traumatic subluxation of the cervical spine. Moderate multilevel degenerative spondyloarthropathy of the cervical spine. Most notably on this limited exam without intrathecal contrast, there appears to be at least mild spinal canal stenosis at C3-C4. 3. No evidence of acute fracture of the maxillofacial bones. 4. Left frontal scalp and facial hematoma without associated acute osseous abnormalities. 5. 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 Recommend further characterization with dedicated post-contrast CT or MR of the neck. Electronically signed by: Bandar Shah DO 09/11/2024 07:42 PM EST RP Medications Medications Current Medications Acetaminophen (Acetaminophen 325 Mg Tablet) 650 mg PO Q6H PRN PRN Reason: Headache/Pain Mild Scale (1-3) Last Admin: 09/14/24 21:10 Dose: 650 mg Al Hydroxide/Mg Hydroxide (Magnesium Hydrox/Alum Hydrox 30 Ml Oral.Susp) 30 ml PO Q6H PRN PRN Reason: Heartburn/Nausea Ascorbic Acid (Ascorbic Acid 500 Mg Tablet) 500 mg PO BID [facility] Last Admin: 09/14/24 21:10 Dose: 500 mg Aspirin (Aspirin Enteric Coated 81 Mg Tablet.) 81 mg PO DAILY [facility] Last Admin: 09/14/24 08:30 Dose: 81 mg Carbamazepine (Carbamazepine 200 Mg Tablet) 400 mg PO BEDTIME [facility] Last Admin: 09/14/24 21:10 Dose: 400 mg Ferrous Sulfate (Ferrous Sulfate 324 Mg Tablet.) 324 mg PO MOWEFR [facility] Last Admin: 09/13/24 14:19 Dose: 324 mg Fluticasone Propionate (Fluticasone Propionate Nasal 16 Gm [place]) 1 spray NOSTRIL-B DAILY [facility] Last Admin: 09/14/24 10:10 Dose: Not Given Ibuprofen (Ibuprofen 400 Mg Tablet) 400 mg PO Q4H PRN PRN Reason: Pain, Moderate(Pain Scale 4-6) Levothyroxine Sodium (Levothyroxine Sodium 200 Mcg Tablet) 200 mcg PO DAILY@0600 [facility] Last Admin: 09/15/24 06:04 Dose: 200 mcg Magnesium Hydroxide (Milk Of Magnesia 30 Ml Oral.Susp) 30 ml PO DAILY PRN PRN Reason: Constipation Methenamine Hippurate (Methenamine Hippurate 1 Gm Tablet) 1 gm PO BID [facility] Last Admin: 09/14/24 21:09 Dose: 1 gm Quetiapine Fumarate (Quetiapine Fumarate 50 Mg Tablet) 50 mg PO BID [facility] Last Admin: 09/14/24 21:10 Dose: 50 mg Quetiapine Fumarate (Quetiapine Fumarate 50 Mg Tablet) 50 mg PO Q6H PRN PRN Reason: agitation Last Admin: 09/14/24 08:30 Dose: 50 mg Trazodone HCl (Trazodone Hcl 25 Mg Halftab) 75 mg PO BEDTIME [facility] Last Admin: 09/14/24 21:09 Dose: 75 mg Trazodone HCl (Trazodone Hcl 50 Mg Tablet) 50 mg PO BEDTIME PRN PRN Reason: sleep Allergies Allergies Allergy/AdvReac Type Severity Reaction Status Date / Time adhesive tape Allergy Intermediate itching Verified 09/11/24 16:47 and skin redness latex Allergy Intermediate skin rash Verified 09/11/24 16:47 and itching Seasonal Allergies Allergy Itching Verified 09/11/24 16:47 weed pollen Allergy stuffy nose Verified 09/11/24 16:47 DUST Allergy Unknown ITCHY/WATERY Uncoded 09/11/24 16:47 EYES surgical paper tape Allergy Unknown rash Uncoded 09/11/24 16:47 Tide Allergy Unknown rash Uncoded 09/11/24 16:47 Assessment & Plan Assessment & Plan (1) Developmental delay, mild: Status: Acute Code(s): R62.50 - Unspecified lack of expected normal physiological development in childhood (2) Mood disorder due to a general medical condition: Status: Acute Code(s): F06.30 - Mood disorder due to known physiological condition, unspecified Plan The patient is a 68-year-old female with a past history of chronic cognitive impairment, DDS involved, [facility] a [facility] who was admitted for exacerbation of disorganized behavior, yelling and changes in her mental status. Plan 1. Gather collateral information. 2. Continue with psychotropics as prescribed. 3. The patient has a guardian and most likely we will have to talk with DDS and other providers for coordination of care. 4. Fifteen minute checks. 5. On September 15 we are increasing the Seroquel to 50 mg p.o. t.i.d., we are going to monitored over-sedation avoid falls. Reason for continued inpatient stay Substantial Risk for: inability to function, rapid decompensation and med/psych decompensation Time Spent With Patient Time: Total time managing care of this patient today __20__ minutes.
[2024-09-15 07:59] VITALS: BP 153/71; PULSE 88; RESP 18; TEMP 36.3; O2SAT 98
[2024-09-15] MEDS: Methenamine Hippurate 1 GM TABLET PO ×2 (08:19→20:00)
[2024-09-15] MEDS: Aspirin Enteric Coated 81 MG TABLET.DR PO (08:19)
[2024-09-15] MEDS: QUEtiapine Fumarate 50 MG TABLET PO ×4 (08:19→20:00)
[2024-09-15] MEDS: Ascorbic Acid 500 MG TABLET PO ×2 (08:19→20:00)
[2024-09-15] MEDS: Fluticasone Propionate Nasal 16 GM SPRAY 1 SPRAY NOSTRIL-B (08:20)
[2024-09-15] MEDS: Ibuprofen 400 MG TABLET PO (08:20)
--- NOTE | 2024-09-15 08:25 | PC.NURSE ---
Kirsten refused Tegretol level on 09/14 at 1800 despite this headline writer educating Kirsten on importance of lab draw. Dr. Akers notified.
[2024-09-15] MEDS: Milk of Magnesia 30 ML ORAL.SUSP PO (14:52)
[2024-09-15 20:00] VITALS: BP 118/58; PULSE 105; RESP 18; TEMP 36.6; O2SAT 95
[2024-09-15] MEDS: carBAMazepine 200 MG TABLET 400 MG PO (20:00)
[2024-09-15] MEDS: traZODone HCL 25 MG HALFTAB 75 MG PO (20:01)
[2024-09-16] MEDS: Levothyroxine Sodium 200 MCG TABLET PO (05:35)
[2024-09-16 08:00] VITALS: BP 142/65; PULSE 76; RESP 17; TEMP 37; O2SAT 98
[2024-09-16] MEDS: Methenamine Hippurate 1 GM TABLET PO ×2 (08:45→20:08)
[2024-09-16] MEDS: QUEtiapine Fumarate 50 MG TABLET PO ×3 (08:45→20:08)
[2024-09-16] MEDS: Aspirin Enteric Coated 81 MG TABLET.DR PO (08:45)
[2024-09-16] MEDS: Ascorbic Acid 500 MG TABLET PO ×2 (08:45→20:08)
[2024-09-16] MEDS: Fluticasone Propionate Nasal 16 GM SPRAY 1 SPRAY NOSTRIL-B (08:47)
[2024-09-16] MEDS: Ibuprofen 400 MG TABLET PO ×2 (08:52→15:54)
--- NOTE | 2024-09-16 11:02 | HO.PSYCHPN ---
Subjective Subjective Date of Service: 09/16/24 Reason For Visit: Combative behaviors Subjective Notes: Conditional Voluntary Interim History: pt slept all night- she has been sleeping since Monday with medication adjustments. She continues to have intermittent episodes of yelling, low frustration tolerance. No aggression. Seroquel was increased, she slept intermittently in the morning, then fully awake but will monitor over sedation. No SI/HI. Diagnostics Vital Signs (24Hr): Vital Signs - 24 hr 09/15/24 20:00 09/16/24 08:00 Temperature 97.9 F 98.6 F Pulse Rate 105 H 76 Respiratory Rate 18 17 Blood Pressure 118/58 L 142/65 H Pulse Oximetry 95 98 Oxygen Delivery Method Room Air Room Air BMI result Body Mass Index 23.0 Labs 09/11/24 17:34 09/12/24 15:35 Imaging Radiology Impressions: ITS Impressions Chest X-Ray 09/11/24 16:48 IMPRESSION: Mild cardiomegaly. No acute intrathoracic disease. Electronically signed by: Angel Pearce MD 09/11/2024 07:03 PM EST RP Head CT 09/11/24 16:49 IMPRESSION: 1. No evidence of acute intracranial hemorrhage or edematous territorial infarction. Moderate underlying microangiopathy and generalized cerebral volume loss. 2. No evidence of acute fracture or traumatic subluxation of the cervical spine. Moderate multilevel degenerative spondyloarthropathy of the cervical spine. Most notably on this limited exam without intrathecal contrast, there appears to be at least mild spinal canal stenosis at C3-C4. 3. No evidence of acute fracture of the maxillofacial bones. 4. Left frontal scalp and facial hematoma without associated acute osseous abnormalities. 5. 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 Recommend further characterization with dedicated post-contrast CT or MR of the neck. Electronically signed by: Bandar Shah DO 09/11/2024 07:42 PM EST RP Cervical Spine CT 09/11/24 17:01 IMPRESSION: 1. No evidence of acute intracranial hemorrhage or edematous territorial infarction. Moderate underlying microangiopathy and generalized cerebral volume loss. 2. No evidence of acute fracture or traumatic subluxation of the cervical spine. Moderate multilevel degenerative spondyloarthropathy of the cervical spine. Most notably on this limited exam without intrathecal contrast, there appears to be at least mild spinal canal stenosis at C3-C4. 3. No evidence of acute fracture of the maxillofacial bones. 4. Left frontal scalp and facial hematoma without associated acute osseous abnormalities. 5. 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 Recommend further characterization with dedicated post-contrast CT or MR of the neck. Electronically signed by: Bandar Shah DO 09/11/2024 07:42 PM EST RP Face CT 09/11/24 17:01 IMPRESSION: 1. No evidence of acute intracranial hemorrhage or edematous territorial infarction. Moderate underlying microangiopathy and generalized cerebral volume loss. 2. No evidence of acute fracture or traumatic subluxation of the cervical spine. Moderate multilevel degenerative spondyloarthropathy of the cervical spine. Most notably on this limited exam without intrathecal contrast, there appears to be at least mild spinal canal stenosis at C3-C4. 3. No evidence of acute fracture of the maxillofacial bones. 4. Left frontal scalp and facial hematoma without associated acute osseous abnormalities. 5. 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 Recommend further characterization with dedicated post-contrast CT or MR of the neck. Electronically signed by: Bandar Shah DO 09/11/2024 07:42 PM EST RP Medications Medications Current Medications Acetaminophen (Acetaminophen 325 Mg Tablet) 650 mg PO Q6H PRN PRN Reason: Headache/Pain Mild Scale (1-3) Last Admin: 09/14/24 21:10 Dose: 650 mg Al Hydroxide/Mg Hydroxide (Magnesium Hydrox/Alum Hydrox 30 Ml Oral.Susp) 30 ml PO Q6H PRN PRN Reason: Heartburn/Nausea Ascorbic Acid (Ascorbic Acid 500 Mg Tablet) 500 mg PO BID [facility] Last Admin: 09/16/24 08:45 Dose: 500 mg Aspirin (Aspirin Enteric Coated 81 Mg Tablet.Dr) 81 mg PO DAILY [facility] Last Admin: 09/16/24 08:45 Dose: 81 mg Carbamazepine (Carbamazepine 200 Mg Tablet) 400 mg PO BEDTIME [facility] Last Admin: 12/15/24 20:00 Dose: 400 mg Ferrous Sulfate (Ferrous Sulfate 324 Mg Tablet.Dr) 324 mg PO MOWEFR [facility] Last Admin: 09/13/24 14:19 Dose: 324 mg Fluticasone Propionate (Fluticasone Propionate Nasal 16 Gm [place]) 1 spray NOSTRIL-B DAILY [facility] Last Admin: 09/16/24 08:47 Dose: 1 spray Ibuprofen (Ibuprofen 400 Mg Tablet) 400 mg PO Q4H PRN PRN Reason: Pain, Moderate(Pain Scale 4-6) Last Admin: 09/16/24 08:52 Dose: 400 mg Levothyroxine Sodium (Levothyroxine Sodium 200 Mcg Tablet) 200 mcg PO DAILY@0600 [facility] Last Admin: 09/16/24 05:35 Dose: 200 mcg Magnesium Hydroxide (Milk Of Magnesia 30 Ml Oral.Susp) 30 ml PO DAILY PRN PRN Reason: Constipation Last Admin: 09/15/24 14:52 Dose: 30 ml Methenamine Hippurate (Methenamine Hippurate 1 Gm Tablet) 1 gm PO BID [facility] Last Admin: 09/16/24 08:45 Dose: 1 gm Quetiapine Fumarate (Quetiapine Fumarate 50 Mg Tablet) 50 mg PO Q6H PRN PRN Reason: agitation Last Admin: 09/15/24 08:19 Dose: 50 mg Quetiapine Fumarate (Quetiapine Fumarate 50 Mg Tablet) 50 mg PO TID [facility] Last Admin: 09/16/24 08:45 Dose: 50 mg Trazodone HCl (Trazodone Hcl 25 Mg Halftab) 75 mg PO BEDTIME [facility] Last Admin: 09/15/24 20:01 Dose: 75 mg Trazodone HCl (Trazodone Hcl 50 Mg Tablet) 50 mg PO BEDTIME PRN PRN Reason: sleep Allergies Allergies Allergy/AdvReac Type Severity Reaction Status Date / Time adhesive tape Allergy Intermediate itching Verified 09/11/24 16:47 and skin redness latex Allergy Intermediate skin rash Verified 09/11/24 16:47 and itching Seasonal Allergies Allergy Itching Verified 09/11/24 16:47 weed pollen Allergy stuffy nose Verified 09/11/24 16:47 DUST Allergy Unknown ITCHY/WATERY Uncoded 09/11/24 16:47 EYES surgical paper tape Allergy Unknown rash Uncoded 09/11/24 16:47 Tide Allergy Unknown rash Uncoded 09/11/24 16:47 Assessment & Plan Assessment & Plan (1) Developmental delay, mild: Status: Acute Code(s): R62.50 - Unspecified lack of expected normal physiological development in childhood (2) Mood disorder due to a general medical condition: Status: Acute Code(s): F06.30 - Mood disorder due to known physiological condition, unspecified Plan The patient is a 68-year-old female with a past history of chronic cognitive impairment, DDS involved, resident of a senior living who was admitted for exacerbation of disorganized behavior, yelling and changes in her mental status. Plan 1. continue tx. monitor over sedation with seroquel during the day. sleep much improved. Reason for continued inpatient stay Substantial Risk for: inability to function Time Spent With Patient Time: Total time managing care of this patient today ____ minutes.
--- NOTE | 2024-09-16 14:20 | MHC.SLORD ---
Speech Language Pathology Order Status: SEMIC[employer] PACK[employer] SEALER visited pt this morning, CNAs noted pt has a good appetite and benefits from reminders to slow down when eating. Pt was sitting upright at table in dining area of unit. Open mouth breathing/anterior loss of secretions/tongue protrusion observed. Pt was dozing off but alert for brief moment when spoken to; though she could not stay awake. RN consulted. No concerns reported with pt PO tolerance of NDD3 diet with thin liquids. [employer]IC[employer] SEALER to followup.
[2024-09-16] MEDS: Ferrous Sulfate 324 MG TABLET.DR PO (15:46)
[2024-09-16 17:48] LABS: Carbamazepine Tegretol 8.1 mcg/mL (5.0-12.0)
[2024-09-16 20:00] VITALS: BP 114/58; PULSE 67; RESP 18; TEMP 36.6; O2SAT 96
[2024-09-16] MEDS: traZODone HCL 25 MG HALFTAB 75 MG PO (20:07)
[2024-09-16] MEDS: carBAMazepine 200 MG TABLET 400 MG PO (20:07)
[2024-09-17] MEDS: Levothyroxine Sodium 200 MCG TABLET PO (05:20)
[2024-09-17] MEDS: Ibuprofen 400 MG TABLET PO ×2 (05:48→20:31)
[2024-09-17 08:00] VITALS: BP 136/62; PULSE 77; RESP 18; TEMP 36.4; O2SAT 97
[2024-09-17] MEDS: Ascorbic Acid 500 MG TABLET PO ×2 (08:38→20:31)
[2024-09-17] MEDS: QUEtiapine Fumarate 50 MG TABLET PO ×3 (08:38→20:30)
[2024-09-17] MEDS: Methenamine Hippurate 1 GM TABLET PO ×2 (08:38→20:30)
[2024-09-17] MEDS: Aspirin Enteric Coated 81 MG TABLET.DR PO (08:39)
[2024-09-17] MEDS: Fluticasone Propionate Nasal 16 GM SPRAY 1 SPRAY NOSTRIL-B (08:42)
--- NOTE | 2024-09-17 10:01 | HO.PSYCHPN ---
Subjective Subjective Date of Service: 09/17/24 Reason For Visit: Combative behaviors Subjective Notes: Conditional Voluntary Interim History: Pt slept most of the night. She has been visible on the unit. She is easily frustrated, but appears calmer. 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 She expresses her sadness as she misses home. No SI/HI. No psychosis or delusions. Medication Compliance: Yes Mental Status Exam Mental Status Exam Narrative: Appearance: wearing casual clothing, fair hygiene, in NAD Behavior: cooperative, friendly Psychomotor: no tremors, mild cogwheel on both wrists, drooling, no involuntary tongue movement. Speech: mumbles at times, periods of stuttering, regular rate/rhythm/volume, spontaneous TP: poverty of thought, tangential TC: wanting to go home Mood: okay Affect: congruent SI: none HI: none VH/AH: none Delusions: none Insight/judgment: impaired x2 Memory/cog: alert, oriented to place, month, year. Diagnostics Vital Signs (24Hr): Vital Signs - 24 hr 09/16/24 20:00 09/17/24 08:00 Temperature 97.9 F 97.6 F Pulse Rate 67 77 Respiratory Rate 18 18 Blood Pressure 114/58 L 136/62 Pulse Oximetry 96 97 Oxygen Delivery Method Room Air Room Air BMI result Body Mass Index 23.0 Labs 09/11/24 17:34 09/12/24 15:35 Labs: Laboratory Results - last 48 hr 09/16/24 17:25 Carbamazepine 8.1 Imaging Radiology Impressions: ITS Impressions Chest X-Ray 09/11/24 16:48 IMPRESSION: Mild cardiomegaly. No acute intrathoracic disease. Electronically signed by: Angel Pearce MD 09/11/2024 07:03 [place] [facility] [place] 09/11/24 16:49 IMPRESSION: 1. No evidence of acute intracranial hemorrhage or edematous territorial infarction. Moderate underlying microangiopathy and generalized cerebral volume loss. 2. No evidence of acute fracture or traumatic subluxation of the cervical spine. Moderate multilevel degenerative spondyloarthropathy of the cervical spine. Most notably on this limited exam without intrathecal contrast, there appears to be at least mild spinal canal stenosis at C3-C4. 3. No evidence of acute fracture of the maxillofacial bones. 4. Left frontal scalp and facial hematoma without associated acute osseous abnormalities. 5. 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 Recommend further characterization with dedicated post-contrast CT or MR of the neck. Electronically signed by: Bandar Shah DO 09/11/2024 07:42 PM EST RP Cervical Spine CT 09/11/24 17:01 IMPRESSION: 1. No evidence of acute intracranial hemorrhage or edematous territorial infarction. Moderate underlying microangiopathy and generalized cerebral volume loss. 2. No evidence of acute fracture or traumatic subluxation of the cervical spine. Moderate multilevel degenerative spondyloarthropathy of the cervical spine. Most notably on this limited exam without intrathecal contrast, there appears to be at least mild spinal canal stenosis at C3-C4. 3. No evidence of acute fracture of the maxillofacial bones. 4. Left frontal scalp and facial hematoma without associated acute osseous abnormalities. 5. 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 Recommend further characterization with dedicated post-contrast CT or MR of the neck. Electronically signed by: Bandar Shah DO 09/11/2024 07:42 PM EST RP Face CT 09/11/24 17:01 IMPRESSION: 1. No evidence of acute intracranial hemorrhage or edematous territorial infarction. Moderate underlying microangiopathy and generalized cerebral volume loss. 2. No evidence of acute fracture or traumatic subluxation of the cervical spine. Moderate multilevel degenerative spondyloarthropathy of the cervical spine. Most notably on this limited exam without intrathecal contrast, there appears to be at least mild spinal canal stenosis at C3-C4. 3. No evidence of acute fracture of the maxillofacial bones. 4. Left frontal scalp and facial hematoma without associated acute osseous abnormalities. 5. 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 Recommend further characterization with dedicated post-contrast CT or MR of the neck. Electronically signed by: Bandar Shah DO 09/11/2024 07:42 PM EST RP Medications Medications Current Medications Acetaminophen (Acetaminophen 325 Mg Tablet) 650 mg PO Q6H PRN PRN Reason: Headache/Pain Mild Scale (1-3) Last Admin: 09/14/24 21:10 Dose: 650 mg Al Hydroxide/Mg Hydroxide (Magnesium Hydrox/Alum Hydrox 30 Ml Oral.Susp) 30 ml PO Q6H PRN PRN Reason: Heartburn/Nausea Ascorbic Acid (Ascorbic Acid 500 Mg Tablet) 500 mg PO BID [facility] Last Admin: 09/17/24 08:38 Dose: 500 mg Aspirin (Aspirin Enteric Coated 81 Mg Tablet.) 81 mg PO DAILY [facility] Last Admin: 09/17/24 08:39 Dose: 81 mg Carbamazepine (Carbamazepine 200 Mg Tablet) 400 mg PO BEDTIME [facility] Last Admin: 09/16/24 20:07 Dose: 400 mg Ferrous Sulfate (Ferrous Sulfate 324 Mg Tablet.) 324 mg PO MOWEFR [facility] Last Admin: 09/16/24 15:46 Dose: 324 mg Fluticasone Propionate (Fluticasone Propionate Nasal 16 Gm [place]) 1 spray NOSTRIL-B DAILY [facility] Last Admin: 09/17/24 08:42 Dose: 1 spray Ibuprofen (Ibuprofen 400 Mg Tablet) 400 mg PO Q4H PRN PRN Reason: Pain, Moderate(Pain Scale 4-6) Last Admin: 09/17/24 05:48 Dose: 400 mg Levothyroxine Sodium (Levothyroxine Sodium 200 Mcg Tablet) 200 mcg PO DAILY@0600 [facility] Last Admin: 09/17/24 05:20 Dose: 200 mcg Magnesium Hydroxide (Milk Of Magnesia 30 Ml Oral.Susp) 30 ml PO DAILY PRN PRN Reason: Constipation Last Admin: 09/15/24 14:52 Dose: 30 ml Methenamine Hippurate (Methenamine Hippurate 1 Gm Tablet) 1 gm PO BID [facility] Last Admin: 09/17/24 08:38 Dose: 1 gm Quetiapine Fumarate (Quetiapine Fumarate 50 Mg Tablet) 50 mg PO Q6H PRN PRN Reason: agitation Last Admin: 09/15/24 08:19 Dose: 50 mg Quetiapine Fumarate (Quetiapine Fumarate 50 Mg Tablet) 50 mg PO TID [facility] Last Admin: 09/17/24 08:38 Dose: 50 mg Trazodone HCl (Trazodone Hcl 25 Mg Halftab) 75 mg PO BEDTIME [facility] Last Admin: 09/16/24 20:07 Dose: 75 mg Trazodone HCl (Trazodone Hcl 50 Mg Tablet) 50 mg PO BEDTIME PRN PRN Reason: sleep Allergies Allergies Allergy/AdvReac Type Severity Reaction Status Date / Time adhesive tape Allergy Intermediate itching Verified 09/11/24 16:47 and skin redness latex Allergy Intermediate skin rash Verified 09/11/24 16:47 and itching Seasonal Allergies Allergy Itching Verified 09/11/24 16:47 weed pollen Allergy stuffy nose Verified 09/11/24 16:47 DUST Allergy Unknown ITCHY/WATERY Uncoded 09/11/24 16:47 EYES surgical paper tape Allergy Unknown rash Uncoded 09/11/24 16:47 Tide Allergy Unknown rash Uncoded 09/11/24 16:47 Assessment & Plan Assessment & Plan (1) Mood disorder due to a general medical condition: Status: Acute Code(s): F06.30 - Mood disorder due to known physiological condition, unspecified Plan Ms. Ronquillo is a 68 year-old woman with hx of developmental condition (unclear specific etiology) who resides at [facility]. She was brought to the hospital due to changes in behavior including putting clothe in wrong parts, increasingly more agitated with peers and staff, not sleeping. Also, new onset drooling, which has also affected her speech and she has some dysartria. Recent increase in abilify to 15mg po daily, unclear if this may be source. Pending further collateral information. Will continue carbamazepine, which has been used as mood stabilizer. will check tegretol levels in few days. Will try seroquel for combative behaviors as result of low frustration tolerance- if effecting and not overly sedating will attempt to keep on only one antipsychotic and dc abilify. Will add trazodone for sleep- 75mg po qhs as she has not been sleeping and may aid with drooling. PLAN 09/17 continue seroquel 50mg po TID- monitor over sedation. continue tegretol and trazodone at bedtime. pending meeting with [facility] staff Reason for continued inpatient stay Substantial Risk for: inability to function Time Spent With Patient Time: Total time managing care of this patient today ____ minutes.
--- NOTE | 2024-09-17 15:58 | MHC.SL.DTX ---
Dysphagia Diet modifications: Last documented Solid diet consistencies: Chopped/Advanced (NDD3) Last documented Liquid consistency: Thin Last documented Medication Administration: Changes made to current diet?: No Liquid Consistency and Strategies: Liquid Intake Recommendation: Thin Compensatory Strategies for Safe Swallow: Small Sips Compensatory Strategies for Safe Swallow(b): Sitting Upright (90 deg) Small Bites and Sips Alternate Liquids/Solids Rate of Ingestion Change Solid Food Consistency: Dietary Recommendations: Chopped/Advanced (NDD3) Additional Modifications to Solids: Patient w/ limited dentition, prolonged mastication on harder solids. Patient observed with unsafe eating behaviors and impulsivity. Patient tends to pack large amounts of food in her mouth and take quick sequential sips. She is recommended chopped/advanced diet (NDD3) for ease of mastication and thin liquids, pills whole or crushed in puree. Patient will need 1:1 supervision and cuing for strategies: -take small bites -chew food well -clear oral cavity before taking next bite -alternate with sips of liquid -liquids by teaspoon or cup -take one sip at a time -maintain upright 90 degree position during PO intake -minimize distractions at mealtime Oral Medication Intake: Whole with Puree Strategies and Precautions to be Taken for Safe Swallow: Sitting Upright (90 deg) Small Bites and Sips Alternate Liquids/Solids Rate of Ingestion Change Supervision While Eating and/Drinking: Total Supervision (1:1) Foods to Avoid: Hard to chew foods Swallowing Recommended Treatments: Compens. Strategy Educat. Level of Impact on: Daily activities: None Interpersonal interactions: Education: None Employment: None Community: None Prognosis for Improvement: Good Recommendation for Speech: Inpatient Speech Therapy Comment: Patient w/ limited dentition, prolonged mastication on harder solids. Patient observed with unsafe eating behaviors and impulsivity. Patient tends to pack large amounts of food in her mouth and take quick sequential sips. She is recommended chopped/advanced diet (NDD3) for ease of mastication and thin liquids, pills whole or crushed in puree. Patient will need 1:1 supervision and cuing for strategies: -take small bites -chew food well -clear oral cavity before taking next bite -alternate with sips of liquid -liquids by teaspoon or cup -take one sip at a time -maintain upright 90 degree position during PO intake -minimize distractions at mealtime Frequency/Duration: Date Range for Service Req: Timeline to reassess: Additional Comments: Patient admitted w/ increased AMS, comes from a residential Treatment: Pt observed with her lunch tray containing NDD3 Solids and Thin Liquids. She is very impulsive eating with a full mouth and drinking large/consecutive sips. She does so however without overt s/s of aspiration and completing 100% of her tray. ROLLOUT MANAGER continues to recommend Chopped/Advanced Solids. Meds Whole with Puree. Intermittent supervision for rate of intake control and monitor over s/s of aspiration. Pt remains impulsive despite feedback. No further ROLLOUT MANAGER intervention at this time. Please re-consult if status changes. Assessment: Jack Spinner Clinican/Clinical Fellow: No Supervisory Statement: I have reviewed and agree with the student/clinical fellow's documentation: N/A Speech Language Pathologist: Diogo Carlos M.A., [facility]-ROLLOUT MANAGER
[2024-09-17 19:53] VITALS: BP 143/76; PULSE 79; RESP 18; TEMP 36.6; O2SAT 97
[2024-09-17] MEDS: traZODone HCL 25 MG HALFTAB 75 MG PO (20:30)
[2024-09-17] MEDS: carBAMazepine 200 MG TABLET 400 MG PO (20:31)
[2024-09-17] MEDS: traZODone HCL 50 MG TABLET PO (20:31)
[2024-09-18] MEDS: Ibuprofen 400 MG TABLET PO ×2 (02:26→17:20)
[2024-09-18] MEDS: Levothyroxine Sodium 200 MCG TABLET PO (05:43)
[2024-09-18] MEDS: QUEtiapine Fumarate 50 MG TABLET PO ×3 (08:18→20:30)
[2024-09-18] MEDS: Ascorbic Acid 500 MG TABLET PO ×2 (08:18→20:30)
[2024-09-18] MEDS: Aspirin Enteric Coated 81 MG TABLET.DR PO (08:18)
[2024-09-18] MEDS: Methenamine Hippurate 1 GM TABLET PO ×2 (08:18→20:30)
[2024-09-18] MEDS: Fluticasone Propionate Nasal 16 GM SPRAY 1 SPRAY NOSTRIL-B (08:22)
--- NOTE | 2024-09-18 09:43 | P.PNPSI_ITS ---
Subjective Subjective Date of Service: 09/18/24 Reason For Visit: Combative behaviors Subjective Notes: Conditional Voluntary Interim History: Pt slept most of the night. She has been visible on the unit. She is easily frustrated, but appears calmer. Episodes of yelling but are brief, not combative. staff to come and see her if she is close to her baseline. She expresses her sadness as she misses home. No SI/HI. No psychosis or delusions. Review of Systems Review of Systems Denies chest pain. No SOB. No GI symptoms. Mental Status Exam Mental Status Exam Narrative: Appearance: wearing casual clothing, fair hygiene, in NAD Behavior: cooperative, friendly Psychomotor: no tremors, mild cogwheel on both wrists, drooling, no involuntary tongue movement. Speech: mumbles at times, periods of stuttering, regular rate/rhythm/volume, spontaneous TP: poverty of thought, tangential TC: wanting to go home Mood: okay Affect: congruent SI: none HI: none VH/AH: none Delusions: none Insight/judgment: impaired x2 Memory/cog: alert, oriented to place, month, year. Diagnostics Vital Signs (24Hr): Vital Signs - 24 hr 09/17/24 19:53 Temperature 97.8 F Pulse Rate 79 Respiratory Rate 18 Blood Pressure 143/76 H Pulse Oximetry 97 Oxygen Delivery Method Room Air BMI result Body Mass Index 23.0 Labs 09/11/24 17:34 09/12/24 15:35 Labs: Laboratory Results - last 48 hr 09/16/24 17:25 Carbamazepine 8.1 Imaging Radiology Impressions: ITS Impressions Chest X-Ray 09/11/24 16:48 IMPRESSION: Mild cardiomegaly. No acute intrathoracic disease. Electronically signed by: Angel Pearce MD 09/11/2024 07:03 PM [facility] [place] 09/11/24 16:49 IMPRESSION: 1. No evidence of acute intracranial hemorrhage or edematous territorial infarction. Moderate underlying microangiopathy and generalized cerebral volume loss. 2. No evidence of acute fracture or traumatic subluxation of the cervical spine. Moderate multilevel degenerative spondyloarthropathy of the cervical spine. Most notably on this limited exam without intrathecal contrast, there appears to be at least mild spinal canal stenosis at C3-C4. 3. No evidence of acute fracture of the maxillofacial bones. 4. Left frontal scalp and facial hematoma without associated acute osseous abnormalities. 5. 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 Recommend further characterization with dedicated post-contrast CT or MR of the neck. Electronically signed by: Bandar Shah DO 09/11/2024 07:42 PM EST RP Cervical Spine CT 09/11/24 17:01 IMPRESSION: 1. No evidence of acute intracranial hemorrhage or edematous territorial infarction. Moderate underlying microangiopathy and generalized cerebral volume loss. 2. No evidence of acute fracture or traumatic subluxation of the cervical spine. Moderate multilevel degenerative spondyloarthropathy of the cervical spine. Most notably on this limited exam without intrathecal contrast, there appears to be at least mild spinal canal stenosis at C3-C4. 3. No evidence of acute fracture of the maxillofacial bones. 4. Left frontal scalp and facial hematoma without associated acute osseous abnormalities. 5. 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 Recommend further characterization with dedicated post-contrast CT or MR of the neck. Electronically signed by: Bandar Shah DO 09/11/2024 07:42 PM EST RP Face CT 09/11/24 17:01 IMPRESSION: 1. No evidence of acute intracranial hemorrhage or edematous territorial infarction. Moderate underlying microangiopathy and generalized cerebral volume loss. 2. No evidence of acute fracture or traumatic subluxation of the cervical spine. Moderate multilevel degenerative spondyloarthropathy of the cervical spine. Most notably on this limited exam without intrathecal contrast, there appears to be at least mild spinal canal stenosis at C3-C4. 3. No evidence of acute fracture of the maxillofacial bones. 4. Left frontal scalp and facial hematoma without associated acute osseous abnormalities. 5. 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 Recommend further characterization with dedicated post-contrast CT or MR of the neck. Electronically signed by: Bandar Shah DO 09/11/2024 07:42 PM EST RP Medications Medications Current Medications Acetaminophen (Acetaminophen 325 Mg Tablet) 650 mg PO Q6H PRN PRN Reason: Headache/Pain Mild Scale (1-3) Last Admin: 09/14/24 21:10 Dose: 650 mg Al Hydroxide/Mg Hydroxide (Magnesium Hydrox/Alum Hydrox 30 Ml Oral.Susp) 30 ml PO Q6H PRN PRN Reason: Heartburn/Nausea Ascorbic Acid (Ascorbic Acid 500 Mg Tablet) 500 mg PO BID [facility] Last Admin: 09/18/24 08:18 Dose: 500 mg Aspirin (Aspirin Enteric Coated 81 Mg Tablet.Dr) 81 mg PO DAILY [facility] Last Admin: 09/18/24 08:18 Dose: 81 mg Carbamazepine (Carbamazepine 200 Mg Tablet) 400 mg PO BEDTIME [facility] Last Admin: 09/17/24 20:31 Dose: 400 mg Ferrous Sulfate (Ferrous Sulfate 324 Mg Tablet.) 324 mg PO MOWEFR ON [facility] Last Admin: 09/16/24 15:46 Dose: 324 mg Fluticasone Propionate (Fluticasone Propionate Nasal 16 Gm [place]) 1 spray NOSTRIL-B DAILY [facility] Last Admin: 09/18/24 08:22 Dose: 1 spray Ibuprofen (Ibuprofen 400 Mg Tablet) 400 mg PO Q4H PRN PRN Reason: Pain, Moderate(Pain Scale 4-6) Last Admin: 09/18/24 02:26 Dose: 400 mg Levothyroxine Sodium (Levothyroxine Sodium 200 Mcg Tablet) 200 mcg PO DAILY@0600 ON [facility] Last Admin: 09/18/24 05:43 Dose: 200 mcg Magnesium Hydroxide (Milk Of Magnesia 30 Ml Oral.Susp) 30 ml PO DAILY PRN PRN Reason: Constipation Last Admin: 09/15/24 14:52 Dose: 30 ml Methenamine Hippurate (Methenamine Hippurate 1 Gm Tablet) 1 gm PO BID [facility] Last Admin: 09/18/24 08:18 Dose: 1 gm Quetiapine Fumarate (Quetiapine Fumarate 50 Mg Tablet) 50 mg PO Q6H PRN PRN Reason: agitation Last Admin: 09/15/24 08:19 Dose: 50 mg Quetiapine Fumarate (Quetiapine Fumarate 50 Mg Tablet) 50 mg PO TID [facility] Last Admin: 09/18/24 08:18 Dose: 50 mg Trazodone HCl (Trazodone Hcl 25 Mg Halftab) 75 mg PO BEDTIME [facility] Last Admin: 09/17/24 20:30 Dose: 75 mg Trazodone HCl (Trazodone Hcl 50 Mg Tablet) 50 mg PO BEDTIME PRN PRN Reason: sleep Last Admin: 09/17/24 20:31 Dose: 50 mg Allergies Allergies Allergy/AdvReac Type Severity Reaction Status Date / Time adhesive tape Allergy Intermediate itching Verified 09/11/24 16:47 and skin redness latex Allergy Intermediate skin rash Verified 09/11/24 16:47 and itching Seasonal Allergies Allergy Itching Verified 09/11/24 16:47 weed pollen Allergy stuffy nose Verified 09/11/24 16:47 DUST Allergy Unknown ITCHY/WATERY Uncoded 09/11/24 16:47 EYES surgical paper tape Allergy Unknown rash Uncoded 09/11/24 16:47 Tide Allergy Unknown rash Uncoded 09/11/24 16:47 Assessment & Plan Assessment & Plan (1) Mood disorder due to a general medical condition: Status: Acute Code(s): F06.30 - Mood disorder due to known physiological condition, unspecified Plan Ms. Ronquillo is a 68 year-old woman with hx of developmental condition (unclear specific etiology) who resides at [facility]. She was brought to the hospital due to changes in behavior including putting clothe in wrong parts, increasingly more agitated with peers and staff, not sleeping. Also, new onset drooling, which has also affected her speech and she has some dysartria. Recent increase in abilify to 15mg po daily, unclear if this may be source. Pending further collateral information. Will continue carbamazepine, which has been used as mood stabilizer. will check tegretol levels in few days. Will try seroquel for combative behaviors as result of low frustration tolerance- if effecting and not overly sedating will attempt to keep on only one antipsychotic and dc abilify. Will add trazodone for sleep- 75mg po qhs as she has not been sleeping and may aid with drooling. PLAN 09/17 continue seroquel 50mg po TID- monitor over sedation. continue tegretol and trazodone at bedtime. pending meeting with [facility] staff 09/18 continue tx. may ask PT to assess her gait. Reason for continued inpatient stay Substantial Risk for: inability to function Time Spent With Patient Time: Total time managing care of this patient today ____ minutes.
[2024-09-18] MEDS: Ferrous Sulfate 324 MG TABLET.DR PO (13:57)
[2024-09-18 19:33] VITALS: BP 110/55; PULSE 86; TEMP 36.5; O2SAT 96
[2024-09-18] MEDS: carBAMazepine 200 MG TABLET 400 MG PO (20:30)
[2024-09-18] MEDS: traZODone HCL 25 MG HALFTAB 75 MG PO (20:30)
[2024-09-19] MEDS: Levothyroxine Sodium 200 MCG TABLET PO (06:00)
[2024-09-19 07:00] VITALS: BMI 24.5
[2024-09-19 08:00] VITALS: BP 126/59; PULSE 65; TEMP 36.6
--- NOTE | 2024-09-19 08:22 | HO.PSYCHPN ---
Subjective Subjective Date of Service: 09/19/24 Reason For Visit: Combative behaviors Subjective Notes: Conditional Voluntary Interim History: Pt slept 7hrs. Her sleep has improved. Episodes of crying briefly when asked things that may not be appropriate like this morning, pt crying because she wanted candy for breakfast. She was redirected to her breakfast which included a much more healthy and varied option. He quickly calm down. She is not aggressive, not throwing things nor intrusive with others. She does ask about home. She is taking medications as prescribed. She enjoyed coloring. Pending visit from to check if pt is at baseline. Diagnostics Vital Signs (24Hr): Vital Signs - 24 hr 09/18/24 19:33 Temperature 97.7 F Pulse Rate 86 Blood Pressure 110/55 L Pulse Oximetry 96 Oxygen Delivery Method Room Air BMI result Body Mass Index 23.0 Labs 09/11/24 17:34 09/12/24 15:35 Imaging Radiology Impressions: ITS Impressions Chest X-Ray 09/11/24 16:48 IMPRESSION: Mild cardiomegaly. No acute intrathoracic disease. Electronically signed by: Angel Pearce MD 09/11/2024 07:03 PM EST RP Head CT 09/11/24 16:49 IMPRESSION: 1. No evidence of acute intracranial hemorrhage or edematous territorial infarction. Moderate underlying microangiopathy and generalized cerebral volume loss. 2. No evidence of acute fracture or traumatic subluxation of the cervical spine. Moderate multilevel degenerative spondyloarthropathy of the cervical spine. Most notably on this limited exam without intrathecal contrast, there appears to be at least mild spinal canal stenosis at C3-C4. 3. No evidence of acute fracture of the maxillofacial bones. 4. Left frontal scalp and facial hematoma without associated acute osseous abnormalities. 5. 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 Recommend further characterization with dedicated post-contrast CT or MR of the neck. Electronically signed by: Bandar Shah DO 09/11/2024 07:42 PM EST RP Cervical Spine CT 09/11/24 17:01 IMPRESSION: 1. No evidence of acute intracranial hemorrhage or edematous territorial infarction. Moderate underlying microangiopathy and generalized cerebral volume loss. 2. No evidence of acute fracture or traumatic subluxation of the cervical spine. Moderate multilevel degenerative spondyloarthropathy of the cervical spine. Most notably on this limited exam without intrathecal contrast, there appears to be at least mild spinal canal stenosis at C3-C4. 3. No evidence of acute fracture of the maxillofacial bones. 4. Left frontal scalp and facial hematoma without associated acute osseous abnormalities. 5. 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 Recommend further characterization with dedicated post-contrast CT or MR of the neck. Electronically signed by: Bandar Shah DO 09/11/2024 07:42 PM EST RP Face CT 09/11/24 17:01 IMPRESSION: 1. No evidence of acute intracranial hemorrhage or edematous territorial infarction. Moderate underlying microangiopathy and generalized cerebral volume loss. 2. No evidence of acute fracture or traumatic subluxation of the cervical spine. Moderate multilevel degenerative spondyloarthropathy of the cervical spine. Most notably on this limited exam without intrathecal contrast, there appears to be at least mild spinal canal stenosis at C3-C4. 3. No evidence of acute fracture of the maxillofacial bones. 4. Left frontal scalp and facial hematoma without associated acute osseous abnormalities. 5. 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 Recommend further characterization with dedicated post-contrast CT or MR of the neck. Electronically signed by: Bandar Shah DO 09/11/2024 07:42 PM EST RP Medications Medications Current Medications Acetaminophen (Acetaminophen 325 Mg Tablet) 650 mg PO Q6H PRN PRN Reason: Headache/Pain Mild Scale (1-3) Last Admin: 09/14/24 21:10 Dose: 650 mg Al Hydroxide/Mg Hydroxide (Magnesium Hydrox/Alum Hydrox 30 Ml Oral.Susp) 30 ml PO Q6H PRN PRN Reason: Heartburn/Nausea Ascorbic Acid (Ascorbic Acid 500 Mg Tablet) 500 mg PO BID [facility] Last Admin: 09/18/24 20:30 Dose: 500 mg Aspirin (Aspirin Enteric Coated 81 Mg Tablet.Dr) 81 mg PO DAILY [facility] Last Admin: 09/18/24 08:18 Dose: 81 mg Carbamazepine (Carbamazepine 200 Mg Tablet) 400 mg PO BEDTIME [facility] Last Admin: 09/18/24 20:30 Dose: 400 mg Ferrous Sulfate (Ferrous Sulfate 324 Mg Tablet.Dr) 324 mg PO MOWEFR [facility] Last Admin: 09/18/24 13:57 Dose: 324 mg Fluticasone Propionate (Fluticasone Propionate Nasal 16 Gm [place]) 1 spray NOSTRIL-B DAILY [facility] Last Admin: 09/18/24 08:22 Dose: 1 spray Ibuprofen (Ibuprofen 400 Mg Tablet) 400 mg PO Q4H PRN PRN Reason: Pain, Moderate(Pain Scale 4-6) Last Admin: 09/18/24 17:20 Dose: 400 mg Levothyroxine Sodium (Levothyroxine Sodium 200 Mcg Tablet) 200 mcg PO DAILY@0600 [facility] Last Admin: 09/19/24 06:00 Dose: 200 mcg Magnesium Hydroxide (Milk Of Magnesia 30 Ml Oral.Susp) 30 ml PO DAILY PRN PRN Reason: Constipation Last Admin: 09/15/24 14:52 Dose: 30 ml Methenamine Hippurate (Methenamine Hippurate 1 Gm Tablet) 1 gm PO BID [facility] Last Admin: 09/18/24 20:30 Dose: 1 gm Quetiapine Fumarate (Quetiapine Fumarate 50 Mg Tablet) 50 mg PO Q6H PRN PRN Reason: agitation Last Admin: 09/15/24 08:19 Dose: 50 mg Quetiapine Fumarate (Quetiapine Fumarate 50 Mg Tablet) 50 mg PO TID [facility] Last Admin: 09/18/24 20:30 Dose: 50 mg Trazodone HCl (Trazodone Hcl 25 Mg Halftab) 75 mg PO BEDTIME [facility] Last Admin: 09/18/24 20:30 Dose: 75 mg Trazodone HCl (Trazodone Hcl 50 Mg Tablet) 50 mg PO BEDTIME PRN PRN Reason: sleep Last Admin: 09/17/24 20:31 Dose: 50 mg Allergies Allergies Allergy/AdvReac Type Severity Reaction Status Date / Time adhesive tape Allergy Intermediate itching Verified 09/11/24 16:47 and skin redness latex Allergy Intermediate skin rash Verified 09/11/24 16:47 and itching Seasonal Allergies Allergy Itching Verified 09/11/24 16:47 weed pollen Allergy stuffy nose Verified 09/11/24 16:47 DUST Allergy Unknown ITCHY/WATERY Uncoded 09/11/24 16:47 EYES surgical paper tape Allergy Unknown rash Uncoded 09/11/24 16:47 Tide Allergy Unknown rash Uncoded 09/11/24 16:47 Assessment & Plan Assessment & Plan (1) Mood disorder due to a general medical condition: Status: Acute Code(s): F06.30 - Mood disorder due to known physiological condition, unspecified Plan Ms. Ronquillo is a 68 year-old woman with hx of developmental condition (unclear specific etiology) who resides at [facility]. She was brought to the hospital due to changes in behavior including putting clothe in wrong parts, increasingly more agitated with peers and staff, not sleeping. Also, new onset drooling, which has also affected her speech and she has some dysartria. Recent increase in abilify to 15mg po daily, unclear if this may be source. Pending further collateral information. Will continue carbamazepine, which has been used as mood stabilizer. will check tegretol levels in few days. Will try seroquel for combative behaviors as result of low frustration tolerance- if effecting and not overly sedating will attempt to keep on only one antipsychotic and dc abilify. Will add trazodone for sleep- 75mg po qhs as she has not been sleeping and may aid with drooling. PLAN 09/17 continue seroquel 50mg po TID- monitor over sedation. continue tegretol and trazodone at bedtime. pending meeting with [facility] staff 09/18 continue tx. may ask PT to assess her gait. 09/19 continue tx. no over sedation with current medications. Reason for continued inpatient stay Substantial Risk for: inability to function Time Spent With Patient Time: Total time managing care of this patient today ____ minutes.
[2024-09-19] MEDS: Aspirin Enteric Coated 81 MG TABLET.DR PO (08:36)
[2024-09-19] MEDS: Methenamine Hippurate 1 GM TABLET PO ×2 (08:37→20:37)
[2024-09-19] MEDS: QUEtiapine Fumarate 50 MG TABLET PO ×3 (08:37→20:37)
[2024-09-19] MEDS: Fluticasone Propionate Nasal 16 GM SPRAY 1 SPRAY NOSTRIL-B (08:37)
[2024-09-19] MEDS: Ascorbic Acid 500 MG TABLET PO ×2 (08:37→20:36)
[2024-09-19] MEDS: Ibuprofen 400 MG TABLET PO (10:44)
[2024-09-19] MEDS: clonazePAM ODT 0.125 MG TAB.RAPDIS 0.25 MG PO ×3 (13:14→20:37)
[2024-09-19 20:00] VITALS: BP 136/60; PULSE 72; RESP 16; TEMP 36.1; O2SAT 99
[2024-09-19] MEDS: carBAMazepine 200 MG TABLET 400 MG PO (20:36)
[2024-09-19] MEDS: traZODone HCL 25 MG HALFTAB 75 MG PO (20:37)
[2024-09-20] MEDS: Ibuprofen 400 MG TABLET PO ×2 (03:31→08:33)
[2024-09-20] MEDS: Levothyroxine Sodium 200 MCG TABLET PO (06:01)
[2024-09-20 08:31] VITALS: BP 132/61; PULSE 82; RESP 16; TEMP 36.4; O2SAT 95
[2024-09-20] MEDS: QUEtiapine Fumarate 50 MG TABLET PO ×4 (08:31→20:10)
[2024-09-20] MEDS: Aspirin Enteric Coated 81 MG TABLET.DR PO (08:31)
[2024-09-20] MEDS: clonazePAM ODT 0.125 MG TAB.RAPDIS 0.25 MG PO (08:33)
[2024-09-20] MEDS: Ascorbic Acid 500 MG TABLET PO ×2 (08:33→20:09)
[2024-09-20] MEDS: Methenamine Hippurate 1 GM TABLET PO ×2 (08:33→20:09)
[2024-09-20] MEDS: Fluticasone Propionate Nasal 16 GM SPRAY 1 SPRAY NOSTRIL-B (08:34)
[2024-09-20 09:21] VITALS: BP 130/58; PULSE 77; RESP 18; TEMP 36.7; O2SAT 97
[2024-09-20 09:23] VITALS: BP 123/58; PULSE 80; RESP 18; TEMP 36.7; O2SAT 97
[2024-09-20 09:25] VITALS: BP 128/58; PULSE 79; RESP 18; TEMP 36.7; O2SAT 97
--- NOTE | 2024-09-20 09:28 | PM.EVENT ---
Event Note Date of Service: 09/20/24 Event Note: GRAPHIC COORDINATOR called for unwitnessed fall. patient states was mechanical, fell with walker, hit left side of forehead, denies LOC (unreliable historian) VSS, alert, oriented cspine collar, check cth, cspine Time Spent With Patient Time: Total time managing care of this patient today ____ minutes.
--- NOTE | 2024-09-20 09:32 | P.PNPSI_ITS ---
Subjective Subjective Date of Service: 09/20/24 Reason For Visit: Combative behaviors Subjective Notes: Conditional Voluntary Interim History: Pt had some difficulty sleeping last night. She had unwitnessed fall, hit head. head/cervical CT ordered. She has been calmer, no episodes of combative behaviors. discussed with staff dc next Monday. Diagnostics Vital Signs (24Hr): Vital Signs - 24 hr 09/19/24 20:00 Temperature 96.9 F Pulse Rate 72 Respiratory Rate 16 Blood Pressure 136/60 Pulse Oximetry 99 Oxygen Delivery Method Room Air BMI result Body Mass Index 24.5 Labs 09/11/24 17:34 09/12/24 15:35 Imaging Radiology Impressions: ITS Impressions Chest X-Ray 09/11/24 16:48 IMPRESSION: Mild cardiomegaly. No acute intrathoracic disease. Electronically signed by: Angel Pearce MD 09/11/2024 07:03 PM EST RP Head CT 09/11/24 16:49 IMPRESSION: 1. No evidence of acute intracranial hemorrhage or edematous territorial infarction. Moderate underlying microangiopathy and generalized cerebral volume loss. 2. No evidence of acute fracture or traumatic subluxation of the cervical spine. Moderate multilevel degenerative spondyloarthropathy of the cervical spine. Most notably on this limited exam without intrathecal contrast, there appears to be at least mild spinal canal stenosis at C3-C4. 3. No evidence of acute fracture of the maxillofacial bones. 4. Left frontal scalp and facial hematoma without associated acute osseous abnormalities. 5. 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 Recommend further characterization with dedicated post-contrast CT or MR of the neck. Electronically signed by: Bandar Shah DO 09/11/2024 07:42 PM EST RP Cervical Spine CT 09/11/24 17:01 IMPRESSION: 1. No evidence of acute intracranial hemorrhage or edematous territorial infarction. Moderate underlying microangiopathy and generalized cerebral volume loss. 2. No evidence of acute fracture or traumatic subluxation of the cervical spine. Moderate multilevel degenerative spondyloarthropathy of the cervical spine. Most notably on this limited exam without intrathecal contrast, there appears to be at least mild spinal canal stenosis at C3-C4. 3. No evidence of acute fracture of the maxillofacial bones. 4. Left frontal scalp and facial hematoma without associated acute osseous abnormalities. 5. 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 Recommend further characterization with dedicated post-contrast CT or MR of the neck. Electronically signed by: Bandar Shah DO 09/11/2024 07:42 PM EST RP Face CT 09/11/24 17:01 IMPRESSION: 1. No evidence of acute intracranial hemorrhage or edematous territorial infarction. Moderate underlying microangiopathy and generalized cerebral volume loss. 2. No evidence of acute fracture or traumatic subluxation of the cervical spine. Moderate multilevel degenerative spondyloarthropathy of the cervical spine. Most notably on this limited exam without intrathecal contrast, there appears to be at least mild spinal canal stenosis at C3-C4. 3. No evidence of acute fracture of the maxillofacial bones. 4. Left frontal scalp and facial hematoma without associated acute osseous abnormalities. 5. 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 Recommend further characterization with dedicated post-contrast CT or MR of the neck. Electronically signed by: Bandar Shah DO 09/11/2024 07:42 PM EST RP Medications Medications Current Medications Acetaminophen (Acetaminophen 325 Mg Tablet) 650 mg PO Q6H PRN PRN Reason: Headache/Pain Mild Scale (1-3) Last Admin: 09/14/24 21:10 Dose: 650 mg Al Hydroxide/Mg Hydroxide (Magnesium Hydrox/Alum Hydrox 30 Ml Oral.Susp) 30 ml PO Q6H PRN PRN Reason: Heartburn/Nausea Ascorbic Acid (Ascorbic Acid 500 Mg Tablet) 500 mg PO BID [facility] Last Admin: 09/20/24 08:33 Dose: 500 mg Aspirin (Aspirin Enteric Coated 81 Mg Tablet.Dr) 81 mg PO DAILY [facility] Last Admin: 09/20/24 08:31 Dose: 81 mg Carbamazepine (Carbamazepine 200 Mg Tablet) 400 mg PO BEDTIME [facility] Last Admin: 09/19/24 20:36 Dose: 400 mg Clonazepam (Clonazepam Odt 0.125 Mg Tab.Rapdis) 0.25 mg PO TID [facility] Last Admin: 09/20/24 08:33 Dose: 0.25 mg Ferrous Sulfate (Ferrous Sulfate 324 Mg Tablet.Dr) 324 mg PO MOWEFR [facility] Last Admin: 09/18/24 13:57 Dose: 324 mg Fluticasone Propionate (Fluticasone Propionate Nasal 16 Gm [place]) 1 spray NOSTRIL-B DAILY [facility] Last Admin: 09/20/24 08:34 Dose: 1 spray Ibuprofen (Ibuprofen 400 Mg Tablet) 400 mg PO Q4H PRN PRN Reason: Pain, Moderate(Pain Scale 4-6) Last Admin: 09/20/24 08:33 Dose: 400 mg Levothyroxine Sodium (Levothyroxine Sodium 200 Mcg Tablet) 200 mcg PO DAILY@0600 [facility] Last Admin: 09/20/24 06:01 Dose: 200 mcg Magnesium Hydroxide (Milk Of Magnesia 30 Ml Oral.Susp) 30 ml PO DAILY PRN PRN Reason: Constipation Last Admin: 09/15/24 14:52 Dose: 30 ml Methenamine Hippurate (Methenamine Hippurate 1 Gm Tablet) 1 gm PO BID [facility] Last Admin: 09/20/24 08:33 Dose: 1 gm Quetiapine Fumarate (Quetiapine Fumarate 50 Mg Tablet) 50 mg PO Q6H PRN PRN Reason: agitation Last Admin: 09/20/24 08:33 Dose: 50 mg Quetiapine Fumarate (Quetiapine Fumarate 50 Mg Tablet) 50 mg PO TID [facility] Last Admin: 09/20/24 08:31 Dose: 50 mg Trazodone HCl (Trazodone Hcl 25 Mg Halftab) 75 mg PO BEDTIME [facility] Last Admin: 09/19/24 20:37 Dose: 75 mg Trazodone HCl (Trazodone Hcl 50 Mg Tablet) 50 mg PO BEDTIME PRN PRN Reason: sleep Last Admin: 09/17/24 20:31 Dose: 50 mg Allergies Allergies Allergy/AdvReac Type Severity Reaction Status Date / Time adhesive tape Allergy Intermediate itching Verified 09/11/24 16:47 and skin redness latex Allergy Intermediate skin rash Verified 09/11/24 16:47 and itching Seasonal Allergies Allergy Itching Verified 09/11/24 16:47 weed pollen Allergy stuffy nose Verified 09/11/24 16:47 DUST Allergy Unknown ITCHY/WATERY Uncoded 12/11/24 16:47 EYES surgical paper tape Allergy Unknown rash Uncoded 09/11/24 16:47 Tide Allergy Unknown rash Uncoded 09/11/24 16:47 Assessment & Plan Assessment & Plan (1) Mood disorder due to a general medical condition: Status: Acute Code(s): F06.30 - Mood disorder due to known physiological condition, unspecified Plan Ms. Ronquillo is a 68 year-old woman with hx of developmental condition (unclear specific etiology) who resides at [facility]. She was brought to the hospital due to changes in behavior including putting clothe in wrong parts, increasingly more agitated with peers and staff, not sleeping. Also, new onset drooling, which has also affected her speech and she has some dysartria. Recent increase in abilify to 15mg po daily, unclear if this may be source. Pending further collateral information. Will continue carbamazepine, which has been used as mood stabilizer. will check tegretol levels in few days. Will try seroquel for combative behaviors as result of low frustration tolerance- if effecting and not overly sedating will attempt to keep on only one antipsychotic and dc abilify. Will add trazodone for sleep- 75mg po qhs as she has not been sleeping and may aid with drooling. PLAN 09/17 continue seroquel 50mg po TID- monitor over sedation. continue tegretol and trazodone at bedtime. pending meeting with [facility] staff 09/18 continue tx. may ask PT to assess her gait. 09/19 continue tx. no over sedation with current medications. 09/20 continue tx. d/c clonazepam. Reason for continued inpatient stay Substantial Risk for: inability to function Time Spent With Patient Time: Total time managing care of this patient today ____ minutes.
[2024-09-20 09:33] LABS: Glucose, Whole Blood 97 mg/dL (60-115)
--- NOTE | 2024-09-20 09:49 | PC.NURSE ---
This writer producer responded to in-house QUALITY [employer]ER. Pt reports I fell and hit my head. Not witnessed. C-collar placed; spinal precautions taken. VSS; Dr Sloan bedside and requested STAT CT. This writer producer with [facility] transported pt to CT without issue. Dr Sloan notified of developing hematoma on L forehead. Pt neuros remained at baseline. Pt transported back to S1 and care assumed by [facility] team.
--- NOTE | 2024-09-20 10:58 | PC.NURSE ---
Addendum entered by Keri Solis RN 09/20/24 11:15: Bed alarm initiated for high fall risk post fall. Addendum entered by Keri Solis RN 09/20/24 11:11: POC 97 post fall. Post fall debriefing completed with staff. She continues on 5 minute checks and continue to be a high fall risk. Original Note: Rapid response called at 0920 as Kirsten was found on the floor in her room sitting on her buttocks. She reported she hit her head. She could not clearly articulate how she fell but reported pain to her head and egg size hematoma noted to left forehead. She denied any other pain at that time. Cervical collar placed for C-spine precautions. Izabella Presley NP at bedside to see patient. Dr. Shah at bedside to assess patient. Vital signs stable, please see VS flowsheet. A/O x 3 with poor insight and no acute mental status change. Neuros grossly intact. Patient taken to head CT for imaging and pending results. Patient was a high fall risk prior to fall and will continue to be a high fall risk. LAY Will attempted to contact Isi Thompson, [facility] to notify of fall but unable to leave message as voice mailbox is full. Pending CT results. Kirsten is currently still in stretcher with c-spine stabilized in cervical collar while awaiting CT results.
--- NOTE | 2024-09-20 14:35 | PC.NURSE ---
+1 edema and redness noted to BLE. Izabella Sousa NP notified.
[2024-09-20] MEDS: Sennosides/Docusate Sodium TABLET 1 TAB PO ×2 (14:48→20:09)
[2024-09-20] MEDS: Ferrous Sulfate 324 MG TABLET.DR PO (14:48)
[2024-09-20 20:00] VITALS: BP 132/63; PULSE 87; RESP 16; TEMP 36; O2SAT 97
[2024-09-20] MEDS: carBAMazepine 200 MG TABLET 400 MG PO (20:09)
[2024-09-20] MEDS: Donepezil HCl 5 MG TABLET PO (20:09)
[2024-09-20] MEDS: traZODone HCL 25 MG HALFTAB 75 MG PO (20:09)
[2024-09-21] MEDS: QUEtiapine Fumarate 50 MG TABLET PO ×4 (02:01→20:38)
[2024-09-21] MEDS: traZODone HCL 50 MG TABLET PO (02:01)
[2024-09-21] MEDS: Ibuprofen 400 MG TABLET PO ×3 (02:01→20:38)
[2024-09-21] MEDS: Methenamine Hippurate 1 GM TABLET PO ×2 (08:48→20:37)
[2024-09-21] MEDS: carBAMazepine 200 MG TABLET PO (08:48)
[2024-09-21] MEDS: Aspirin Enteric Coated 81 MG TABLET.DR PO (08:48)
[2024-09-21] MEDS: Sennosides/Docusate Sodium TABLET 1 TAB PO (08:48)
[2024-09-21] MEDS: Fluticasone Propionate Nasal 16 GM SPRAY 1 SPRAY NOSTRIL-B (08:49)
[2024-09-21] MEDS: Ascorbic Acid 500 MG TABLET PO ×2 (08:49→20:37)
[2024-09-21 08:59] VITALS: BP 127/71; PULSE 84; RESP 18; TEMP 36.6; O2SAT 98
--- NOTE | 2024-09-21 10:44 | P.PNPSI_ITS ---
Subjective Subjective Date of Service: 09/21/24 Reason For Visit: Combative behaviors Subjective Notes: Conditional Voluntary Interim History: Pt was incontinent of stool. She has been visible on the unit with intermittent periods of yelling easily frustration but also easily redirected. No SI/HI. Taking medications as prescribed. Plan for dc 09/24. Review of Systems Review of Systems Denies chest pain. No SOB. No GI symptoms. Mental Status Exam Mental Status Exam Narrative: Appearance: wearing casual clothing, fair hygiene, in NAD Behavior: cooperative, friendly Psychomotor: no tremors, mild cogwheel on both wrists, drooling, no involuntary tongue movement. Speech: mumbles at times, periods of stuttering, regular rate/rhythm/volume, spontaneous TP: poverty of thought, tangential TC: wanting to go home Mood: okay Affect: congruent SI: none HI: none VH/AH: none Delusions: none Insight/judgment: impaired x2 Memory/cog: alert, oriented to place, month, year. Diagnostics Vital Signs (24Hr): Vital Signs - 24 hr 09/20/24 20:00 09/21/24 08:59 Temperature 96.8 F 97.9 F Pulse Rate 87 84 Respiratory Rate 16 18 Blood Pressure 132/63 127/71 Pulse Oximetry 97 98 Oxygen Delivery Method Room Air Room Air BMI result Body Mass Index 24.5 Labs 09/11/24 17:34 09/12/24 15:35 Labs: Laboratory Results - last 48 hr 09/20/24 09:27 POC Glucose 97 Imaging Radiology Impressions: ITS Impressions Chest X-Ray 09/11/24 16:48 IMPRESSION: Mild cardiomegaly. No acute intrathoracic disease. Electronically signed by: Angel Pearce MD 09/11/2024 07:03 PM [facility] Head CT 09/11/24 16:49 IMPRESSION: 1. No evidence of acute intracranial hemorrhage or edematous territorial infarction. Moderate underlying microangiopathy and generalized cerebral volume loss. 2. No evidence of acute fracture or traumatic subluxation of the cervical spine. Moderate multilevel degenerative spondyloarthropathy of the cervical spine. Most notably on this limited exam without intrathecal contrast, there appears to be at least mild spinal canal stenosis at C3-C4. 3. No evidence of acute fracture of the maxillofacial bones. 4. Left frontal scalp and facial hematoma without associated acute osseous abnormalities. 5. 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 Recommend further characterization with dedicated post-contrast CT or MR of the neck. Electronically signed by: Bandar Shah DO 09/11/2024 07:42 PM EST RP Cervical Spine CT 09/11/24 17:01 IMPRESSION: 1. No evidence of acute intracranial hemorrhage or edematous territorial infarction. Moderate underlying microangiopathy and generalized cerebral volume loss. 2. No evidence of acute fracture or traumatic subluxation of the cervical spine. Moderate multilevel degenerative spondyloarthropathy of the cervical spine. Most notably on this limited exam without intrathecal contrast, there appears to be at least mild spinal canal stenosis at C3-C4. 3. No evidence of acute fracture of the maxillofacial bones. 4. Left frontal scalp and facial hematoma without associated acute osseous abnormalities. 5. 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 Recommend further characterization with dedicated post-contrast CT or MR of the neck. Electronically signed by: Bandar Shah DO 09/11/2024 07:42 PM EST RP Face CT 09/11/24 17:01 IMPRESSION: 1. No evidence of acute intracranial hemorrhage or edematous territorial infarction. Moderate underlying microangiopathy and generalized cerebral volume loss. 2. No evidence of acute fracture or traumatic subluxation of the cervical spine. Moderate multilevel degenerative spondyloarthropathy of the cervical spine. Most notably on this limited exam without intrathecal contrast, there appears to be at least mild spinal canal stenosis at C3-C4. 3. No evidence of acute fracture of the maxillofacial bones. 4. Left frontal scalp and facial hematoma without associated acute osseous abnormalities. 5. 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 Recommend further characterization with dedicated post-contrast CT or MR of the neck. Electronically signed by: Bandar Shah DO 09/11/2024 07:42 PM EST RP Cervical Spine CT 09/20/24 09:36 IMPRESSION: Multilevel cervical spondylosis without acute fracture or trauma-related listhesis. Grade 1 anterolisthesis C6-7 likely degenerative in nature. Fleischner guidelines were followed. Electronically signed by: Srinivasan Baron MD 09/20/2024 12:26 PM EST RP Head CT 09/20/24 09:36 IMPRESSION: No acute fracture in the bony calvarium. No acute intracranial hemorrhage. 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 Electronically signed by: Srinivasan Baron MD 09/20/2024 12:34 PM EST RP Medications Medications Current Medications Acetaminophen (Acetaminophen 325 Mg Tablet) 650 mg PO Q6H PRN PRN Reason: Headache/Pain Mild Scale (1-3) Last Admin: 09/14/24 21:10 Dose: 650 mg Al Hydroxide/Mg Hydroxide (Magnesium Hydrox/Alum Hydrox 30 Ml Oral.Susp) 30 ml PO Q6H PRN PRN Reason: Heartburn/Nausea Ascorbic Acid (Ascorbic Acid 500 Mg Tablet) 500 mg PO BID [facility] Last Admin: 09/21/24 08:49 Dose: 500 mg Aspirin (Aspirin Enteric Coated 81 Mg Tablet.) 81 mg PO DAILY [facility] Last Admin: 09/21/24 08:48 Dose: 81 mg Carbamazepine (Carbamazepine 200 Mg Tablet) 400 mg PO BEDTIME [facility] Last Admin: 09/20/24 20:09 Dose: 400 mg Carbamazepine (Carbamazepine 200 Mg Tablet) 200 mg PO DAILY [facility] Last Admin: 09/21/24 08:48 Dose: 200 mg Donepezil HCl (Donepezil Hcl 5 Mg Tablet) 5 mg PO BEDTIME [facility] Last Admin: 09/20/24 20:09 Dose: 5 mg Ferrous Sulfate (Ferrous Sulfate 324 Mg Tablet.) 324 mg PO MOWEFR [facility] Last Admin: 09/20/24 14:48 Dose: 324 mg Fluticasone Propionate (Fluticasone Propionate Nasal 16 Gm [place]) 1 spray NOSTRIL-B DAILY [facility] Last Admin: 09/21/24 08:49 Dose: 1 spray Ibuprofen (Ibuprofen 400 Mg Tablet) 400 mg PO Q4H PRN PRN Reason: Pain, Moderate(Pain Scale 4-6) Last Admin: 09/21/24 08:49 Dose: 400 mg Levothyroxine Sodium (Levothyroxine Sodium 200 Mcg Tablet) 200 mcg PO DAILY@0600 [facility] Last Admin: 09/20/24 06:01 Dose: 200 mcg Magnesium Hydroxide (Milk Of Magnesia 30 Ml Oral.Susp) 30 ml PO DAILY PRN PRN Reason: Constipation Last Admin: 09/15/24 14:52 Dose: 30 ml Methenamine Hippurate (Methenamine Hippurate 1 Gm Tablet) 1 gm PO BID [facility] Last Admin: 09/21/24 08:48 Dose: 1 gm Quetiapine Fumarate (Quetiapine Fumarate 50 Mg Tablet) 50 mg PO Q6H PRN PRN Reason: agitation Last Admin: 09/21/24 02:01 Dose: 50 mg Quetiapine Fumarate (Quetiapine Fumarate 50 Mg Tablet) 50 mg PO TID [facility] Last Admin: 09/21/24 08:48 Dose: 50 mg Senna/Docusate Sodium (Sennosides/Docusate Sodium Tablet) 1 tab PO BID [facility] Last Admin: 09/21/24 08:48 Dose: 1 tab Trazodone HCl (Trazodone Hcl 25 Mg Halftab) 75 mg PO BEDTIME [facility] Last Admin: 09/20/24 20:09 Dose: 75 mg Trazodone HCl (Trazodone Hcl 50 Mg Tablet) 50 mg PO BEDTIME PRN PRN Reason: sleep Last Admin: 09/21/24 02:01 Dose: 50 mg Allergies Allergies Allergy/AdvReac Type Severity Reaction Status Date / Time adhesive tape Allergy Intermediate itching Verified 09/11/24 16:47 and skin redness latex Allergy Intermediate skin rash Verified 09/11/24 16:47 and itching Seasonal Allergies Allergy Itching Verified 09/11/24 16:47 weed pollen Allergy stuffy nose Verified 09/11/24 16:47 DUST Allergy Unknown ITCHY/WATERY Uncoded 09/11/24 16:47 EYES surgical paper tape Allergy Unknown rash Uncoded 09/11/24 16:47 Tide Allergy Unknown rash Uncoded 09/11/24 16:47 Assessment & Plan Assessment & Plan (1) Mood disorder due to a general medical condition: Status: Acute Code(s): F06.30 - Mood disorder due to known physiological condition, unspecified Plan Ms. Ronquillo is a 68 year-old woman with hx of developmental condition (unclear specific etiology) who resides at [facility]. She was brought to the hospital due to changes in behavior including putting clothe in wrong parts, increasingly more agitated with peers and staff, not sleeping. Also, new onset drooling, which has also affected her speech and she has some dysartria. Recent increase in abilify to 15mg po daily, unclear if this may be source. Pending further collateral information. Will continue carbamazepine, which has been used as mood stabilizer. will check tegretol levels in few days. Will try seroquel for combative behaviors as result of low frustration tolerance- if effecting and not overly sedating will attempt to keep on only one antipsychotic and dc abilify. Will add trazodone for sleep- 75mg po qhs as she has not been sleeping and may aid with drooling. PLAN 09/17 continue seroquel 50mg po TID- monitor over sedation. continue tegretol and trazodone at bedtime. pending meeting with [facility] staff 09/18 continue tx. may ask PT to assess her gait. 09/19 continue tx. no over sedation with current medications. 09/20 continue tx. d/c clonazepam. 09/21 continue tx. hold senakot due to fecal incontinence Reason for continued inpatient stay Substantial Risk for: inability to function Time Spent With Patient Time: Total time managing care of this patient today ____ minutes.
[2024-09-21 20:00] VITALS: BP 136/63; PULSE 79; RESP 16; TEMP 36.2; O2SAT 97
[2024-09-21] MEDS: Donepezil HCl 5 MG TABLET PO (20:37)
[2024-09-21] MEDS: traZODone HCL 25 MG HALFTAB 75 MG PO (20:38)
[2024-09-21] MEDS: carBAMazepine 200 MG TABLET 400 MG PO (20:38)
[2024-09-22] MEDS: Levothyroxine Sodium 200 MCG TABLET PO (06:09)
[2024-09-22 08:18] VITALS: BP 128/60; PULSE 75; RESP 17; TEMP 36.5; O2SAT 100
[2024-09-22] MEDS: carBAMazepine 200 MG TABLET PO (08:19)
[2024-09-22] MEDS: QUEtiapine Fumarate 50 MG TABLET PO ×3 (08:19→20:12)
[2024-09-22] MEDS: Methenamine Hippurate 1 GM TABLET PO ×2 (08:19→20:12)
[2024-09-22] MEDS: Aspirin Enteric Coated 81 MG TABLET.DR PO (08:19)
[2024-09-22] MEDS: Ascorbic Acid 500 MG TABLET PO ×2 (08:19→20:13)
[2024-09-22] MEDS: Fluticasone Propionate Nasal 16 GM SPRAY 1 SPRAY NOSTRIL-B (08:20)
[2024-09-22] MEDS: Ibuprofen 400 MG TABLET PO ×2 (08:41→20:13)
--- NOTE | 2024-09-22 18:23 | HO.PSYCHPN ---
Subjective Subjective Date of Service: 09/22/24 Reason For Visit: Combative behaviors Subjective Notes: Conditional Voluntary Interim History: Pt was incontinent of stool. She has been visible on the unit with intermittent periods of yelling easily frustration but also easily redirected. No SI/HI. Taking medications as prescribed. Plan for dc 09/24. Review of Systems Review of Systems Denies chest pain. No SOB. No GI symptoms. Mental Status Exam Mental Status Exam Narrative: Appearance: wearing casual clothing, fair hygiene, in NAD Behavior: cooperative, friendly Psychomotor: no tremors, mild cogwheel on both wrists, drooling, no involuntary tongue movement. Speech: mumbles at times, periods of stuttering, regular rate/rhythm/volume, spontaneous TP: poverty of thought, tangential TC: wanting to go home Mood: okay Affect: congruent SI: none HI: none VH/AH: none Delusions: none Insight/judgment: impaired x2 Memory/cog: alert, oriented to place, month, year. Diagnostics Vital Signs (24Hr): Vital Signs - 24 hr 09/21/24 20:00 09/22/24 08:18 Temperature 97.1 F 97.7 F Pulse Rate 79 75 Respiratory Rate 16 17 Blood Pressure 136/63 128/60 Pulse Oximetry 97 100 Oxygen Delivery Method Room Air Room Air BMI result Body Mass Index 24.5 Labs 09/11/24 17:34 09/12/24 15:35 Imaging Radiology Impressions: ITS Impressions Chest X-Ray 09/11/24 16:48 IMPRESSION: Mild cardiomegaly. No acute intrathoracic disease. Electronically signed by: Angel Pearce MD 09/11/2024 07:03 PM [facility] Head CT 09/11/24 16:49 IMPRESSION: 1. No evidence of acute intracranial hemorrhage or edematous territorial infarction. Moderate underlying microangiopathy and generalized cerebral volume loss. 2. No evidence of acute fracture or traumatic subluxation of the cervical spine. Moderate multilevel degenerative spondyloarthropathy of the cervical spine. Most notably on this limited exam without intrathecal contrast, there appears to be at least mild spinal canal stenosis at C3-C4. 3. No evidence of acute fracture of the maxillofacial bones. 4. Left frontal scalp and facial hematoma without associated acute osseous abnormalities. 5. 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 Recommend further characterization with dedicated post-contrast CT or MR of the neck. Electronically signed by: Bandar Shah DO 09/11/2024 07:42 PM EST RP Cervical Spine CT 09/11/24 17:01 IMPRESSION: 1. No evidence of acute intracranial hemorrhage or edematous territorial infarction. Moderate underlying microangiopathy and generalized cerebral volume loss. 2. No evidence of acute fracture or traumatic subluxation of the cervical spine. Moderate multilevel degenerative spondyloarthropathy of the cervical spine. Most notably on this limited exam without intrathecal contrast, there appears to be at least mild spinal canal stenosis at C3-C4. 3. No evidence of acute fracture of the maxillofacial bones. 4. Left frontal scalp and facial hematoma without associated acute osseous abnormalities. 5. 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 Recommend further characterization with dedicated post-contrast CT or MR of the neck. Electronically signed by: Bandar Shah DO 09/11/2024 07:42 PM EST RP Face CT 09/11/24 17:01 IMPRESSION: 1. No evidence of acute intracranial hemorrhage or edematous territorial infarction. Moderate underlying microangiopathy and generalized cerebral volume loss. 2. No evidence of acute fracture or traumatic subluxation of the cervical spine. Moderate multilevel degenerative spondyloarthropathy of the cervical spine. Most notably on this limited exam without intrathecal contrast, there appears to be at least mild spinal canal stenosis at C3-C4. 3. No evidence of acute fracture of the maxillofacial bones. 4. Left frontal scalp and facial hematoma without associated acute osseous abnormalities. 5. 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 Recommend further characterization with dedicated post-contrast CT or MR of the neck. Electronically signed by: Bandar Shah DO 09/11/2024 07:42 PM EST RP Cervical Spine CT 09/20/24 09:36 IMPRESSION: Multilevel cervical spondylosis without acute fracture or trauma-related listhesis. Grade 1 anterolisthesis C6-7 likely degenerative in nature. Fleischner guidelines were followed. Electronically signed by: Srinivasan Baron MD 09/20/2024 12:26 PM EST RP Head CT 09/20/24 09:36 IMPRESSION: No acute fracture in the bony calvarium. No acute intracranial hemorrhage. 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 Electronically signed by: Srinivasan Baron MD 09/20/2024 12:34 PM EST RP Medications Medications Current Medications Acetaminophen (Acetaminophen 325 Mg Tablet) 650 mg PO Q6H PRN PRN Reason: Headache/Pain Mild Scale (1-3) Last Admin: 09/14/24 21:10 Dose: 650 mg Al Hydroxide/Mg Hydroxide (Magnesium Hydrox/Alum Hydrox 30 Ml Oral.Susp) 30 ml PO Q6H PRN PRN Reason: Heartburn/Nausea Ascorbic Acid (Ascorbic Acid 500 Mg Tablet) 500 mg PO BID [facility] Last Admin: 09/22/24 08:19 Dose: 500 mg Aspirin (Aspirin Enteric Coated 81 Mg Tablet.) 81 mg PO DAILY [facility] Last Admin: 09/22/24 08:19 Dose: 81 mg Carbamazepine (Carbamazepine 200 Mg Tablet) 400 mg PO BEDTIME [facility] Last Admin: 09/21/24 20:38 Dose: 400 mg Carbamazepine (Carbamazepine 200 Mg Tablet) 200 mg PO DAILY [facility] Last Admin: 09/22/24 08:19 Dose: 200 mg Donepezil HCl (Donepezil Hcl 5 Mg Tablet) 5 mg PO BEDTIME [facility] Last Admin: 09/21/24 20:37 Dose: 5 mg Ferrous Sulfate (Ferrous Sulfate 324 Mg Tablet.) 324 mg PO MOWEFR [facility] Last Admin: 09/20/24 14:48 Dose: 324 mg Fluticasone Propionate (Fluticasone Propionate Nasal 16 Gm [place]) 1 spray NOSTRIL-B DAILY [facility] Last Admin: 09/22/24 08:20 Dose: 1 spray Ibuprofen (Ibuprofen 400 Mg Tablet) 400 mg PO Q4H PRN PRN Reason: Pain, Moderate(Pain Scale 4-6) Last Admin: 09/22/24 08:41 Dose: 400 mg Levothyroxine Sodium (Levothyroxine Sodium 200 Mcg Tablet) 200 mcg PO DAILY@0600 [facility] Last Admin: 09/22/24 06:09 Dose: 200 mcg Magnesium Hydroxide (Milk Of Magnesia 30 Ml Oral.Susp) 30 ml PO DAILY PRN PRN Reason: Constipation Last Admin: 09/15/24 14:52 Dose: 30 ml Methenamine Hippurate (Methenamine Hippurate 1 Gm Tablet) 1 gm PO BID [facility] Last Admin: 09/22/24 08:19 Dose: 1 gm Quetiapine Fumarate (Quetiapine Fumarate 50 Mg Tablet) 50 mg PO Q6H PRN PRN Reason: agitation Last Admin: 09/21/24 02:01 Dose: 50 mg Quetiapine Fumarate (Quetiapine Fumarate 50 Mg Tablet) 50 mg PO TID [facility] Last Admin: 09/22/24 15:08 Dose: 50 mg Senna/Docusate Sodium (Sennosides/Docusate Sodium Tablet) 1 tab PO BID PRN PRN Reason: Constipation Trazodone HCl (Trazodone Hcl 25 Mg Halftab) 75 mg PO BEDTIME [facility] Last Admin: 09/21/24 20:38 Dose: 75 mg Trazodone HCl (Trazodone Hcl 50 Mg Tablet) 50 mg PO BEDTIME PRN PRN Reason: sleep Last Admin: 09/21/24 02:01 Dose: 50 mg Allergies Allergies Allergy/AdvReac Type Severity Reaction Status Date / Time adhesive tape Allergy Intermediate itching Verified 09/11/24 16:47 and skin redness latex Allergy Intermediate skin rash Verified 09/11/24 16:47 and itching Seasonal Allergies Allergy Itching Verified 09/11/24 16:47 weed pollen Allergy stuffy nose Verified 09/11/24 16:47 DUST Allergy Unknown ITCHY/WATERY Uncoded 09/11/24 16:47 EYES surgical paper tape Allergy Unknown rash Uncoded 09/11/24 16:47 Tide Allergy Unknown rash Uncoded 09/11/24 16:47 Assessment & Plan Assessment & Plan (1) Mood disorder due to a general medical condition: Status: Acute Code(s): F06.30 - Mood disorder due to known physiological condition, unspecified Plan Ms. Ronquillo is a 68 year-old woman with hx of developmental condition (unclear specific etiology) who resides at [facility]. She was brought to the hospital due to changes in behavior including putting clothe in wrong parts, increasingly more agitated with peers and staff, not sleeping. Also, new onset drooling, which has also affected her speech and she has some dysartria. Recent increase in abilify to 15mg po daily, unclear if this may be source. Pending further collateral information. Will continue carbamazepine, which has been used as mood stabilizer. will check tegretol levels in few days. Will try seroquel for combative behaviors as result of low frustration tolerance- if effecting and not overly sedating will attempt to keep on only one antipsychotic and dc abilify. Will add trazodone for sleep- 75mg po qhs as she has not been sleeping and may aid with drooling. PLAN 09/17 continue seroquel 50mg po TID- monitor over sedation. continue tegretol and trazodone at bedtime. pending meeting with [facility] staff 09/18 continue tx. may ask PT to assess her gait. 09/19 continue tx. no over sedation with current medications. 09/20 continue tx. d/c clonazepam. 09/21 continue tx. hold senakot due to fecal incontinence 09/22 slept better. no major behavioral concerns. Reason for continued inpatient stay Substantial Risk for: inability to function Time Spent With Patient Time: Total time managing care of this patient today ____ minutes.
[2024-09-22 20:00] VITALS: BP 137/66; PULSE 85; RESP 18; TEMP 37; O2SAT 99
[2024-09-22] MEDS: carBAMazepine 200 MG TABLET 400 MG PO (20:12)
[2024-09-22] MEDS: traZODone HCL 25 MG HALFTAB 75 MG PO (20:12)
[2024-09-22] MEDS: Donepezil HCl 5 MG TABLET PO (20:12)
[2024-09-23] MEDS: Levothyroxine Sodium 200 MCG TABLET PO (06:33)
[2024-09-23 08:00] VITALS: BP 130/72; PULSE 82; RESP 18; TEMP 36.7; O2SAT 99
[2024-09-23] MEDS: carBAMazepine 200 MG TABLET PO (08:54)
[2024-09-23] MEDS: Aspirin Enteric Coated 81 MG TABLET.DR PO (08:54)
[2024-09-23] MEDS: Methenamine Hippurate 1 GM TABLET PO ×2 (08:55→20:02)
[2024-09-23] MEDS: QUEtiapine Fumarate 50 MG TABLET PO ×3 (08:55→20:02)
[2024-09-23] MEDS: Fluticasone Propionate Nasal 16 GM SPRAY 1 SPRAY NOSTRIL-B (08:55)
[2024-09-23] MEDS: Ascorbic Acid 500 MG TABLET PO ×2 (08:55→20:02)
--- NOTE | 2024-09-23 10:40 | P.PNPSI_ITS ---
Subjective Subjective Date of Service: 09/23/24 Reason For Visit: Combative behaviors Subjective Notes: Conditional Voluntary Interim History: Pt slept about 7hrs. She is ambulating with walker, brief intermittent episodes of yelling but able to be redirectable. Meeting with shelter staff to discuss dc tomorrow. Review of Systems Review of Systems Denies chest pain. No SOB. No GI symptoms. Mental Status Exam Mental Status Exam Narrative: Appearance: wearing casual clothing, fair hygiene, in NAD Behavior: cooperative, friendly Psychomotor: no tremors, mild cogwheel on both wrists, drooling, no involuntary tongue movement. Speech: mumbles at times, periods of stuttering, regular rate/rhythm/volume, spontaneous TP: poverty of thought, tangential TC: wanting to go home Mood: okay Affect: congruent SI: none HI: none VH/AH: none Delusions: none Insight/judgment: impaired x2 Memory/cog: alert, oriented to place, month, year. Diagnostics Vital Signs (24Hr): Vital Signs - 24 hr 09/22/24 20:00 09/23/24 08:00 Temperature 98.6 F 98.1 F Pulse Rate 85 82 Respiratory Rate 18 18 Blood Pressure 137/66 130/72 Pulse Oximetry 99 99 Oxygen Delivery Method Room Air Room Air BMI result Body Mass Index 24.5 Labs 09/11/24 17:34 09/12/24 15:35 Imaging Radiology Impressions: ITS Impressions Chest X-Ray 09/11/24 16:48 IMPRESSION: Mild cardiomegaly. No acute intrathoracic disease. Electronically signed by: Angel Pearce MD 09/11/2024 07:03 PM [facility] Head CT 09/11/24 16:49 IMPRESSION: 1. No evidence of acute intracranial hemorrhage or edematous territorial infarction. Moderate underlying microangiopathy and generalized cerebral volume loss. 2. No evidence of acute fracture or traumatic subluxation of the cervical spine. Moderate multilevel degenerative spondyloarthropathy of the cervical spine. Most notably on this limited exam without intrathecal contrast, there appears to be at least mild spinal canal stenosis at C3-C4. 3. No evidence of acute fracture of the maxillofacial bones. 4. Left frontal scalp and facial hematoma without associated acute osseous abnormalities. 5. 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 Recommend further characterization with dedicated post-contrast CT or MR of the neck. Electronically signed by: Bandar Shah DO 09/11/2024 07:42 PM EST RP Cervical Spine CT 09/11/24 17:01 IMPRESSION: 1. No evidence of acute intracranial hemorrhage or edematous territorial infarction. Moderate underlying microangiopathy and generalized cerebral volume loss. 2. No evidence of acute fracture or traumatic subluxation of the cervical spine. Moderate multilevel degenerative spondyloarthropathy of the cervical spine. Most notably on this limited exam without intrathecal contrast, there appears to be at least mild spinal canal stenosis at C3-C4. 3. No evidence of acute fracture of the maxillofacial bones. 4. Left frontal scalp and facial hematoma without associated acute osseous abnormalities. 5. 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 Recommend further characterization with dedicated post-contrast CT or MR of the neck. Electronically signed by: Bandar Shah DO 09/11/2024 07:42 PM EST RP Face CT 09/11/24 17:01 IMPRESSION: 1. No evidence of acute intracranial hemorrhage or edematous territorial infarction. Moderate underlying microangiopathy and generalized cerebral volume loss. 2. No evidence of acute fracture or traumatic subluxation of the cervical spine. Moderate multilevel degenerative spondyloarthropathy of the cervical spine. Most notably on this limited exam without intrathecal contrast, there appears to be at least mild spinal canal stenosis at C3-C4. 3. No evidence of acute fracture of the maxillofacial bones. 4. Left frontal scalp and facial hematoma without associated acute osseous abnormalities. 5. 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 Recommend further characterization with dedicated post-contrast CT or MR of the neck. Electronically signed by: Bandar Shah DO 09/11/2024 07:42 PM EST RP Cervical Spine CT 09/20/24 09:36 IMPRESSION: Multilevel cervical spondylosis without acute fracture or trauma-related listhesis. Grade 1 anterolisthesis C6-7 likely degenerative in nature. Fleischner guidelines were followed. Electronically signed by: Srinivasan Baron MD 09/20/2024 12:26 PM EST RP Head CT 09/20/24 09:36 IMPRESSION: No acute fracture in the bony calvarium. No acute intracranial hemorrhage. 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 Electronically signed by: Srinivasan Baron MD 09/20/2024 12:34 PM EST RP Medications Medications Current Medications Acetaminophen (Acetaminophen 325 Mg Tablet) 650 mg PO Q6H PRN PRN Reason: Headache/Pain Mild Scale (1-3) Last Admin: 09/14/24 21:10 Dose: 650 mg Al Hydroxide/Mg Hydroxide (Magnesium Hydrox/Alum Hydrox 30 Ml Oral.Susp) 30 ml PO Q6H PRN PRN Reason: Heartburn/Nausea Ascorbic Acid (Ascorbic Acid 500 Mg Tablet) 500 mg PO BID [facility] Last Admin: 09/23/24 08:55 Dose: 500 mg Aspirin (Aspirin Enteric Coated 81 Mg Tablet.) 81 mg PO DAILY [facility] Last Admin: 09/23/24 08:54 Dose: 81 mg Carbamazepine (Carbamazepine 200 Mg Tablet) 400 mg PO BEDTIME [facility] Last Admin: 09/22/24 20:12 Dose: 400 mg Carbamazepine (Carbamazepine 200 Mg Tablet) 200 mg PO DAILY [facility] Last Admin: 09/23/24 08:54 Dose: 200 mg Donepezil HCl (Donepezil Hcl 5 Mg Tablet) 5 mg PO BEDTIME [facility] Last Admin: 09/22/24 20:12 Dose: 5 mg Ferrous Sulfate (Ferrous Sulfate 324 Mg Tablet.) 324 mg PO MOWEFR [facility] Last Admin: 09/20/24 14:48 Dose: 324 mg Fluticasone Propionate (Fluticasone Propionate Nasal 16 Gm [place]) 1 spray NOSTRIL-B DAILY [facility] Last Admin: 09/23/24 08:55 Dose: 1 spray Ibuprofen (Ibuprofen 400 Mg Tablet) 400 mg PO Q4H PRN PRN Reason: Pain, Moderate(Pain Scale 4-6) Last Admin: 09/22/24 20:13 Dose: 400 mg Levothyroxine Sodium (Levothyroxine Sodium 200 Mcg Tablet) 200 mcg PO DAILY@0600 [facility] Last Admin: 09/23/24 06:33 Dose: 200 mcg Magnesium Hydroxide (Milk Of Magnesia 30 Ml Oral.Susp) 30 ml PO DAILY PRN PRN Reason: Constipation Last Admin: 09/15/24 14:52 Dose: 30 ml Methenamine Hippurate (Methenamine Hippurate 1 Gm Tablet) 1 gm PO BID [facility] Last Admin: 09/23/24 08:55 Dose: 1 gm Quetiapine Fumarate (Quetiapine Fumarate 50 Mg Tablet) 50 mg PO Q6H PRN PRN Reason: agitation Last Admin: 09/21/24 02:01 Dose: 50 mg Quetiapine Fumarate (Quetiapine Fumarate 50 Mg Tablet) 50 mg PO TID [facility] Last Admin: 09/23/24 08:55 Dose: 50 mg Senna/Docusate Sodium (Sennosides/Docusate Sodium Tablet) 1 tab PO BID PRN PRN Reason: Constipation Trazodone HCl (Trazodone Hcl 25 Mg Halftab) 75 mg PO BEDTIME [facility] Last Admin: 09/22/24 20:12 Dose: 75 mg Trazodone HCl (Trazodone Hcl 50 Mg Tablet) 50 mg PO BEDTIME PRN PRN Reason: sleep Last Admin: 09/21/24 02:01 Dose: 50 mg Allergies Allergies Allergy/AdvReac Type Severity Reaction Status Date / Time adhesive tape Allergy Intermediate itching Verified 09/11/24 16:47 and skin redness latex Allergy Intermediate skin rash Verified 09/11/24 16:47 and itching Seasonal Allergies Allergy Itching Verified 09/11/24 16:47 weed pollen Allergy stuffy nose Verified 09/11/24 16:47 DUST Allergy Unknown ITCHY/WATERY Uncoded 09/11/24 16:47 EYES surgical paper tape Allergy Unknown rash Uncoded 09/11/24 16:47 Tide Allergy Unknown rash Uncoded 09/11/24 16:47 Assessment & Plan Assessment & Plan (1) Mood disorder due to a general medical condition: Status: Acute Code(s): F06.30 - Mood disorder due to known physiological condition, unspecified (2) Vascular dementia: Status: Acute Code(s): F01.50 - Vascular dementia, unspecified severity, without behavioral disturbance, psychotic disturbance, mood disturbance, and anxiety Assessment and Plan: started on aricept Plan Ms. Ronquillo is a 68 year-old woman with hx of developmental condition (unclear specific etiology) who resides at [facility]. She was brought to the hospital due to changes in behavior including putting clothe in wrong parts, increasingly more agitated with peers and staff, not sleeping. Also, new onset drooling, which has also affected her speech and she has some dysartria. Recent increase in abilify to 15mg po daily, unclear if this may be source. Pending further collateral information. Will continue carbamazepine, which has been used as mood stabilizer. will check tegretol levels in few days. Will try seroquel for combative behaviors as result of low frustration tolerance- if effecting and not overly sedating will attempt to keep on only one antipsychotic and dc abilify. Will add trazodone for sleep- 75mg po qhs as she has not been sleeping and may aid with drooling. PLAN 09/17 continue seroquel 50mg po TID- monitor over sedation. continue tegretol and trazodone at bedtime. pending meeting with [facility] staff 09/18 continue tx. may ask PT to assess her gait. 09/19 continue tx. no over sedation with current medications. 09/20 continue tx. d/c clonazepam. 09/21 continue tx. hold senakot due to fecal incontinence 09/22 slept better. no major behavioral concerns. 09/23 continue medications. dc 09/24/24 Reason for continued inpatient stay Substantial Risk for: inability to function Time Spent With Patient Time: Total time managing care of this patient today ____ minutes.
--- NOTE | 2024-09-23 11:20 | PC.NURSE ---
Kirsten declined blood work this morning despite education and encouragement from this headline writer. Izabella Presley NP notified.
[2024-09-23] MEDS: Ferrous Sulfate 324 MG TABLET.DR PO (13:07)
--- NOTE | 2024-09-23 13:38 | PC.NURSE ---
PCP appointment made for oct 11, 1129.
[2024-09-23 20:00] VITALS: BP 126/67; PULSE 80; RESP 18; TEMP 37.4; O2SAT 100
[2024-09-23] MEDS: Ibuprofen 400 MG TABLET PO (20:01)
[2024-09-23] MEDS: carBAMazepine 200 MG TABLET 400 MG PO (20:01)
[2024-09-23] MEDS: traZODone HCL 25 MG HALFTAB 75 MG PO (20:01)
[2024-09-23] MEDS: Donepezil HCl 5 MG TABLET PO (20:01)
[2024-09-24] MEDS: Levothyroxine Sodium 200 MCG TABLET PO (05:52)
[2024-09-24 07:55] VITALS: BP 128/66; PULSE 78; RESP 18; TEMP 36.6; O2SAT 99
[2024-09-24] MEDS: QUEtiapine Fumarate 50 MG TABLET PO (07:59)
[2024-09-24] MEDS: Ascorbic Acid 500 MG TABLET PO (07:59)
[2024-09-24] MEDS: carBAMazepine 200 MG TABLET PO (07:59)
[2024-09-24] MEDS: Fluticasone Propionate Nasal 16 GM SPRAY 1 SPRAY NOSTRIL-B (08:00)
[2024-09-24] MEDS: Methenamine Hippurate 1 GM TABLET PO (08:00)
[2024-09-24] MEDS: Aspirin Enteric Coated 81 MG TABLET.DR PO (08:00)
--- NOTE | 2024-09-24 08:48 | P.DS_ITS ---
DS: Providers Provider Date of Service: 09/24/24 Date of admission: 09/12/24 13:01 Date of discharge: 09/24/24 Primary care physician: Sher Patrick MD DS: Diagnosis Discharge Diagnosis (1) Mood disorder due to a general medical condition: Status: Acute (2) Vascular dementia: Status: Acute DS: Medications Discharge Medications Home Medications: Home Medications ?Medication ?Instructions ?Recorded ?Confirmed multivitamin 1 tab PO DAILY 01/05/21 09/12/24 nystatin 100,000 unit/gram topical 1 appl topical BID PRN Rash 01/05/21 09/12/24 powder ibuprofen 400 mg tablet 400 mg PO TID PRN Pain 01/24/23 09/12/24 triamcinolone acetonide 0.1 % 1 appl topical BID PRN Skin 01/24/23 09/12/24 topical ointment Irritation melatonin 10 mg tablet 10 mg PO BEDTIME 05/10/23 09/12/24 ascorbic acid (vitamin C) 500 mg 500 mg PO BID 03/13/24 09/12/24 tablet (Vitamin C) betamethasone dipropionate 0.05 % 1 appl topical BID PRN Dry areas 03/13/24 topical ointment on hand vibegron 75 mg tablet (Gemtesa) 75 mg PO DAILY 03/13/24 09/12/24 zinc oxide-vitamin B5-vit E 11.3% 1 appl topical BID Rash 03/13/24 09/12/24 topical cream (Balmex Adult Care) polyethylene glycol 3350 17 8.5 g PO DAILY PRN constipation 09/12/24 09/12/24 gram/dose oral powder (Miralax) sennosides 8.6 mg tablet (Senna 8.6 mg PO Q48H PRN constipation 09/12/24 09/12/24 Lax) Previous Rx's ?Medication ?Instructions ?Recorded levothyroxine 200 mcg tablet 200 mcg PO QAM #30 tabs 05/09/24 aspirin 81 mg tablet,delayed 81 mg PO DAILY #30 tabs 09/23/24 release carbamazepine 200 mg tablet 200 mg PO DAILY #30 tabs 09/23/24 carbamazepine 200 mg tablet 400 mg (2 x 200 mg) PO BEDTIME #60 09/23/24 tabs donepezil 5 mg tablet 5 mg PO BEDTIME #30 tabs 09/23/24 ferrous sulfate 324 mg (65 mg 324 mg PO MOWEFR #12 tabs 09/23/24 iron) tablet,delayed release methenamine hippurate 1 gram tablet 1 g PO BID #60 tabs 09/23/24 quetiapine 50 mg tablet 50 mg PO BID PRN agitation #60 tabs 09/23/24 quetiapine 50 mg tablet 50 mg PO TID #90 tabs 09/23/24 trazodone 100 mg tablet 100 mg PO BEDTIME #30 tabs 09/23/24 Mental Status Exam Mental Status Exam Narrative: Appearance: wearing casual clothing, fair hygiene, in NAD Behavior: cooperative, friendly Psychomotor: no tremors, mild cogwheel on both wrists, drooling, no involuntary tongue movement. Speech: mumbles at times, periods of stuttering, regular rate/rhythm/volume, spontaneous TP: poverty of thought, tangential TC: wanting to go home Mood: okay Affect: congruent SI: none HI: none VH/AH: none Delusions: none Insight/judgment: impaired x2 Memory/cog: alert, oriented to place, month, year. Data Data Completed and Pending Completed studies during hospitalization [Text1]: 09/20/24 09:27 POC Glucose 97 09/11/24 17:35 Blood - Venous Blood Culture - Final No growth after 5 days. 09/11/24 17:35 Blood - Venous Blood Culture - Final No growth after 5 days. Imaging Diagnostic Imaging Impressions Chest X-Ray 09/11/24 16:48 IMPRESSION: Mild cardiomegaly. No acute intrathoracic disease. Electronically signed by: Angel Pearce MD 09/11/2024 07:03 PM [facility] Head CT 09/11/24 16:49 IMPRESSION: 1. No evidence of acute intracranial hemorrhage or edematous territorial infarction. Moderate underlying microangiopathy and generalized cerebral volume loss. 2. No evidence of acute fracture or traumatic subluxation of the cervical spine. Moderate multilevel degenerative spondyloarthropathy of the cervical spine. Most notably on this limited exam without intrathecal contrast, there appears to be at least mild spinal canal stenosis at C3-C4. 3. No evidence of acute fracture of the maxillofacial bones. 4. Left frontal scalp and facial hematoma without associated acute osseous abnormalities. 5. 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 Recommend further characterization with dedicated post-contrast CT or MR of the neck. Electronically signed by: Bandar Shah DO 09/11/2024 07:42 PM EST RP Cervical Spine CT 09/11/24 17:01 IMPRESSION: 1. No evidence of acute intracranial hemorrhage or edematous territorial infarction. Moderate underlying microangiopathy and generalized cerebral volume loss. 2. No evidence of acute fracture or traumatic subluxation of the cervical spine. Moderate multilevel degenerative spondyloarthropathy of the cervical spine. Most notably on this limited exam without intrathecal contrast, there appears to be at least mild spinal canal stenosis at C3-C4. 3. No evidence of acute fracture of the maxillofacial bones. 4. Left frontal scalp and facial hematoma without associated acute osseous abnormalities. 5. 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 Recommend further characterization with dedicated post-contrast CT or MR of the neck. Electronically signed by: Bandar Shah DO 09/11/2024 07:42 PM EST RP Face CT 09/11/24 17:01 IMPRESSION: 1. No evidence of acute intracranial hemorrhage or edematous territorial infarction. Moderate underlying microangiopathy and generalized cerebral volume loss. 2. No evidence of acute fracture or traumatic subluxation of the cervical spine. Moderate multilevel degenerative spondyloarthropathy of the cervical spine. Most notably on this limited exam without intrathecal contrast, there appears to be at least mild spinal canal stenosis at C3-C4. 3. No evidence of acute fracture of the maxillofacial bones. 4. Left frontal scalp and facial hematoma without associated acute osseous abnormalities. 5. 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 Recommend further characterization with dedicated post-contrast CT or MR of the neck. Electronically signed by: Bandar Shah DO 09/11/2024 07:42 PM EST RP Cervical Spine CT 09/20/24 09:36 IMPRESSION: Multilevel cervical spondylosis without acute fracture or trauma-related listhesis. Grade 1 anterolisthesis C6-7 likely degenerative in nature. Fleischner guidelines were followed. Electronically signed by: Srinivasan Baron MD 09/20/2024 12:26 PM EST RP Head CT 09/20/24 09:36 IMPRESSION: No acute fracture in the bony calvarium. No acute intracranial hemorrhage. 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 Electronically signed by: Srinivasan Baron MD 09/20/2024 12:34 PM EST RP DS: Summary Hospital Course Hospital Course: is a 68 year-old woman with hx of developmental delay, who has resided in a [facility] home for several years. She was brought via EMS from due to 3 week long change in behavior including appearing more confused using clothes to clean after bowel movement, using shoes in wrong way, going to other resident's room, intermittent agitation. She also has been presenting with increased salivation, dysarthria, noted on exam mild bilat cogwheel upper extremities and frequent falls. She recently had fall and has left side frontal hematoma. She recently had medication changes including abilify was increased from 5mg po daily to 15mg po daily and olanzapine decreased from 15mg po qhs to 5mg. Pt does not have hx of psychiatric admission. She has had episodes of increased confusion and some psychosis in setting of UTI (she was admitted medically here at [facility] in 10/2023 with delirium in setting of UTI and DOMINICK). Pertinent labs completed in ED include CBC without leukocitosis or leukopenia, chronic normocytic anemia. BUN slightly elevated 24, Cr 0.75, creatinine clearance 55.9. Slight elevation in AST, normal ALT Alkaline Phos. elevated 124. ammonia wnl. UA did not show s/s of UTI. Head CT without acute pathology, but does show atrophy and microvascular changes. On the unit, pt reports she is here because she felt. She reports she has not been able to sleep. She denies SI/HI. No signs of psychosis or delusions. She agrees to be here on the unit for treatment. In terms of behavioral changes, pt does not have insight into some of combative behaviors observed at , including more irritability, intrusive behaviors. She was noted here on the unit to get easily frustrated when asked for phone number of a person we did not have a phone number for. She began crying, then yelling and shouting at staff. She did eventually calm down and was redirected. She is noted to be drooling, which staff reports is fairly new along with periods of dysarthria. Unclear what may be causing it. Noted mild cogwheel on both arms at the wrist, not so much at elbow. No ataxic gait. Past Psychiatric History: OP: [facility] past medication trials: abilify, carbamazepine, cogentin Medical Evaluation Reviewed: Yes HOSPITAL COURSE On the unit, pt was admitted on a CV and placed on 15 minutes checks for safety. Status at Discharge Cognitive/behavioral status at discharge: Pt with brighter, non labile affect, although she does have tendency for low frustration tolerance and brief episodes of outbursts but no aggression towards self or others. No SI/HI. No signs of psychosis nor delusions. sleep improved. Functional status at discharge: uses cane/walker Overall status at discharge: patient is back to baseline Time Spent with Patient Time attestation: Total time managing care of this patient today ____ minutes. 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 ) [facility] [Other] - 1 Week Sher Patrick MD [Primary Care Provider] - 10/11/24 11:30 am (Your follow up appointment has been scheduled with Dr. Patrick on Monday10/11/24 @ 11:30. ) Discharge Medications: New methenamine hippurate 1 gram Tablet 1 g PO BID Qty: 60 0RF donepezil 5 mg Tablet 5 mg PO BEDTIME Qty: 30 0RF ferrous sulfate 324 mg (65 mg iron) Tablet,Delayed Release (Dr/Ec) 324 mg PO MOWEFR Qty: 12 0RF aspirin 81 mg Tablet,Delayed Release (Dr/Ec) 81 mg PO DAILY Qty: 30 0RF carbamazepine 200 mg Tablet 400 mg PO BEDTIME Qty: 60 0RF carbamazepine 200 mg Tablet 200 mg PO DAILY Qty: 30 0RF quetiapine 50 mg Tablet 50 mg PO BID PRN (Reason: agitation) Qty: 60 0RF quetiapine 50 mg Tablet 50 mg PO TID Qty: 90 0RF Continued levothyroxine 200 mcg tablet 200 mcg PO QAM Qty: 30 5RF Rx Instructions: 1 tab daily in the morning multivitamin Tablet 1 tab PO DAILY nystatin 100,000 unit/gram Powder 1 appl TOPICAL BID PRN (Reason: Rash) Rx Instructions: rash in skin folds triamcinolone acetonide 0.1 % ointment 1 appl topical BID PRN (Reason: Skin Irritation) Rx Instructions: apply to the lower abdomen, groin, and Buttocks ( Once started apply 2 weeks on and 1 week off) ibuprofen 400 mg Tablet 400 mg PO TID PRN (Reason: Pain) betamethasone dipropionate 0.05 % ointment 1 appl topical BID PRN (Reason: Dry areas on hand) Rx Instructions: Once started, Apply 2 weeks on and 1 week off. Gemtesa 75 mg tablet 75 mg PO DAILY ascorbic acid (vitamin C) [Vitamin C] 500 mg tablet 500 mg PO BID Balmex Adult Care 11.3 % Cream 1 appl TOPICAL BID Rx Instructions: apply to rash, groin, and buttocks sennosides [Senna Lax] 8.6 mg tablet 8.6 mg PO Q48H PRN (Reason: constipation) polyethylene glycol 3350 [Miralax] 17 gram/dose powder 8.5 g PO DAILY PRN (Reason: constipation) Rx Instructions: 1/2 capful mix in 4 Oz of water melatonin 10 mg Tablet 10 mg PO BEDTIME Changed trazodone 100 mg tablet 100 mg PO BEDTIME Qty: 30 0RF Discontinued carbamazepine 200 mg tablet 400 mg PO BEDTIME aspirin 81 mg Tablet,Delayed Release (Dr/Ec) 81 mg PO DAILY loratadine 10 mg Tablet 10 mg PO DAILY Icy Hot 30-10 % Cream 1 appl TOPICAL BID Rx Instructions: to back and shoulders ferrous sulfate 325 mg (65 mg iron) Tablet 325 mg PO MOWEFR aripiprazole [Abilify] 5 mg Tablet 15 mg PO DAILY methenamine hippurate 1 gram tablet 1 g PO BID docusate sodium 100 mg Capsule 100 mg PO BID PRN (Reason: constipation) Qty: 20 0RF tamsulosin 0.4 mg Capsule 0.4 mg PO DAILY Qty: 30 0RF carbamazepine 200 mg tablet 200 mg PO DAILY acetaminophen 500 mg tablet 500 mg PO Q4H PRN (Reason: fever greater than 100) olanzapine 5 mg tablet 5 mg PO BEDTIME guaifenesin 100 mg/5 mL Liquid 200 mg PO QID PRN (Reason: Cough) lactulose 10 gram/15 mL solution 15 ml PO DAILY PRN (Reason: Constipation) Discharge Orders: Discharge Order (Routine); Ordered 09/24/24 Ordered By: Izabella Presley Diet: Regular diet Activity on Discharge: As tolerated Stand Alone Forms: Patient Portal Discharge page, Community Support Print Language: Japanese Care Plan Goals: 1. maintain mood 2. No aggression towards self or others Health Concerns: follow up with PCP Plan of Treatment: 1. take medications as prescribed 2. Go to nearest ED or call 911 in event of emergency. Assessment: Pt with brighter affect. No SI/HI. No VH/AH. No delusions. sleep improved. low frustration tolerance. Discharge Date/Time: 09/24/24 11:54
== END 2024-09-24 11:54 | disposition home or self-care (01) | DRG 884 ==
LOC: HO.ED 09-12 13:25 → HO.PGERI 09-12 14:31
PROVIDERS: Physician Assistant Medical; Admitting Provider Social Worker; Emergency Provider Emergency Medicine; PCP Internal Medicine; Visit Provider Social Worker
DX: F01.50 Vascular dementia, unspecified severity, without behavioral disturbance, psychotic disturbance, mood disturbance, and anxiety (principal); R62.50 Unspecified lack of expected normal physiological development in childhood; D64.9 Anemia, unspecified; F06.30 Mood disorder due to known physiological condition, unspecified; Z20.822 Contact with and (suspected) exposure to COVID-19; Z79.82 Long term (current) use of aspirin; Z79.890 Hormone replacement therapy; Z79.899 Other long term (current) drug therapy
CPT/HCPCS: 0241U; 36415; 70450; 70486; 71046; 72125; 80048; 80053; 80076; 80156; 81003; 82140; 82947; 83605; 83690; 83735; 84443; 84484; 85025; 87040; 92526; 92610; 93005; 99285

== ENCOUNTER → 2024-09-11 17:16 | Outpatient (BNV) | payer MEDICARE, MEDICAID, SELFPAY | PROVIDERS: Emergency Provider Emergency Medicine; PCP Internal Medicine; Visit Provider Internal Medicine Cardiovascular Disease | DX: R94.31 Abnormal electrocardiogram [ECG] [EKG] (principal) | CPT/HCPCS: 93010 ==

== ENCOUNTER 2024-09-12 13:01 | Outpatient (BNV) | payer MEDICARE, MEDICAID, SELFPAY | END 2024-09-20 09:36 | PROVIDERS: Admitting Provider Social Worker; Emergency Provider Emergency Medicine; PCP Internal Medicine; Visit Provider Radiology Diagnostic Radiology | DX: M43.12 Spondylolisthesis, cervical region (principal); D44.6 Neoplasm of uncertain behavior of carotid body | CPT/HCPCS: 70450; 72125 ==

== ENCOUNTER → 2024-09-12 13:01 | Outpatient (BNV) | payer MEDICARE, MEDICAID, SELFPAY | PROVIDERS: Admitting Provider Social Worker; Emergency Provider Emergency Medicine; PCP Internal Medicine; Visit Provider Psychiatry & Neurology Psychiatry | DX: F06.30 Mood disorder due to known physiological condition, unspecified (principal); F89 Unspecified disorder of psychological development | CPT/HCPCS: 90792; 99231; 99232 ==

== ENCOUNTER 2024-09-26 16:33 | Outpatient (REF) | payer MEDICARE, MEDICAID, SELFPAY ==
[2024-09-26 17:34] LABS: Anion Gap 11 (12-20); Blood Urea Nitrogen 30 mg/dL (9-16); Calcium 8.5 mg/dL (8.4-10.2); Carbon Dioxide 28 mmol/L (22-29); Chloride 109 mmol/L (96-108); Estimated Glomerular Filt Rate 55; Potassium 4.1 mmol/L (3.3-5.1); Sodium 144 mmol/L (135-145); Uric Acid 5.3 mg/dL (2.4-5.7)
[2024-09-26 17:38] LABS: Osmolality, Serum 307 mosm/kg (281-305)
== END 2024-09-26 16:34 | disposition home or self-care (01) ==
LOC: HO.LAB 16:33
PROVIDERS: PCP Internal Medicine; Visit Provider Internal Medicine
DX: E87.1 Hypo-osmolality and hyponatremia (principal)
CPT/HCPCS: 36415; 80051; 82310; 82565; 83930; 84520; 84550

== ENCOUNTER 2024-10-01 10:05 | Outpatient (AMB) | payer MEDICARE, MEDICAID, SELFPAY ==
--- OUTSIDE RECORDS SUMMARY | 2024-10-01 10:11 | XMS_ITS | Data Portability ---
Author Organization [place] - [facility], Allergy Address [address] [address] Assessment Encounter Date Assessment Date Assessment LastModified by Organization Details LastModified Time 04/22/2024 04/22/2024 Incidental finding of right parapharyngeal lesion is partially visualized on previous MRI. Recommend further imaging with MRI neck with and without contrast and then likely referral to [place] for discussion of surgical intervention. 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 Requested to share results with Patricia Villavicencio RN [phone] [email or web address] Not available 04/22/2024 11:08:51 Plan of Treatment Reminders Order Date Submit Date Provider Last Modified By Organization Details Last Modified Time Details Appointments None recorded. Lab None recorded. Referral None recorded. Procedures None recorded. Surgeries None recorded. Imaging MRI, neck, w/wo contrast - followup of right parapharyn geal lesion 2023 024 [facility], [address] , [address], [address], 11:29:49 Medication Orders None recorded. Patient TargetsNo targets recorded. Patient InstructionsNo instructions recorded. Reason for Referral None Reported. Results Created Date Observation Date Name Description Value Unit Range Abnormal Flag Note LastModifiedBy Organization Detail LastModifiedTime 05/01/20 24 04/30/2024 MRI, neck, w/ contr ast No observ ation record ed. dplosky [facility] [address], [place], [address], 05/01/2024 10:09:56 05/01/20 24 04/30/2024 MRI, neck, w/ contr ast No observ ation record ed. dplosky [facility] [address] [facility] [address], [place], [address], 05/01/2024 10:09:56 Result Notes None recorded. Problems Name Problem SNOMED Code Status Onset Date Resolution Date Notes Provider Name and Address Organization Details Recorded Time Sensorine ural hearing loss of bilateral ears 637659807 Active 2014 Sensorine ural HL, bilateral ; Note: Date Diagnosed : 11/20/2014 4:41 PM (389.18) Note: Date Diagnosed : 11/20/2014 4:41 PM (389.18) Not Available [facility] 4 01:02:50 Impacted cerumen of bilateral ears [id number] 53175 Active 2016 Impacted cerumen, bilateral ; Note: Date Diagnosed : 11/29/2016 11:26 AM (H61.23) Note: Date Diagnosed : 11/29/2016 11:26 AM (H61.23) Not Available [facility] 4 01:02:50 Abnormal auditory perceptio n 92544751 Active 2018 Abnormal auditory perceptio n, unspecifi ed; Note: Date Diagnosed : 11/20/2014 5:39 PM (388.40) Note: Date Diagnosed : 11/20/2014 5:39 PM (388.40) ; Start Date : 5 Other abnormal auditory perceptio ns, bilateral ; Note: Date Diagnosed : 12/06/2018 1:15 PM (H93.293) Note: Date Diagnosed : 12/06/2018 1:15 PM (H93.293) Not Available [facility] 4 01:02:51 Impacted cerumen 19073729 Active 2014 Impacted cerumen; CMS Risk: low [...] : 11/20/2014 5:40 PM (380.4) Not Available [facility] 01:02[facility] Mass of paraphary ngeal space [id number] 378371 Active 2023 MIKAEL DORMAN MD [address] [address], [place], [address] , [facility] 09:11:36 Problem Notes None recorded. Procedures Surgical History Date Name Laterality Status Provider Name and Address Organization Details Recorded Time 04/22/2024 FOL_DP completed MIKAEL DORMAN MD [address] [place] [address], [place], [address], [facility] 04/22/2024 11:07:34 Imaging Results Imaging Date Name Status LastModified by Organiz ation Details LastModified Time 04/30/2024 MRI, neck, w/ contrast completed dplosky [facility] [address], [address], 05/01/2024 10:09:56 04/30/2024 MRI, neck, w/ contrast completed dplosky [facility] [address], [address], 05/01/2024 10:09:56 Procedure Notes None recorded. Medical Equipment None Reported. Allergies Allergen ID Allergen Name Allergen Category Reaction Reaction Severity Criticality Documentation Date Start Date Code Code System Note Provider Name and Address Organization Details Recorded Time [id number] latex environme nt,medica tion Not available Not available Not available 04/22/2024 [id number] 91 RxNorm Su ceja [facility] 10:59:19 Medications Name Sig Start Date Stop Date Status Note LastModified by Organization Details LastModified Time doxycycli ne hyclate 100 mg capsule 04/22 completed Medicatio n ID: [id number] Dur ation Value: 10 Brand Name: doxycycli ne hyclate S end Method: E-Prescri bed Subs Allowed: subs OK Specia l Instructi on: TAKE ONE CAPSULE BY MOUTH TWICE A DAY Medic ationGene ricName: doxycycli ne hyclate M edication ID: [id number] Dur ation Value: 10 Brand Name: doxycycli ne hyclate S end Method: E-Prescri bed Subs Allowed: subs OK Specia l Instructi on: TAKE ONE CAPSULE BY MOUTH TWICE A DAY Medic ationGene ricName: doxycycli ne hyclate Not Available Not Available Not Available acetamino phen 300 mg-codein e 30 mg tablet 2014 active Medicatio n ID: [id number] Dur ation Value: 4 Brand Name: acetamino phen-code ine Send Method: E-Prescri bed Subs Allowed: subs OK Specia l Instructi on: TAKE 1 TABLET BY MOUTH EVERY 6 HOURS NEEDED FOR PAIN Medi cationGen ericName: acetamino phen-code ine Medic ation ID: [id number] Dur ation Value: 4 Brand Name: acetamino phen-code ine Send Method: E-Prescri bed Subs Allowed: subs OK Specia l Instructi on: TAKE 1 TABLET BY MOUTH EVERY 6 HOURS NEEDED FOR PAIN Medi cationGen ericName: acetamino phen-code ine Not Available Not Available Not Available theophyll ine ER 300 mg tablet,ex tended release,1 2 hr 04/22 completed Medicatio n ID: [id number] Dur ation Value: 90 Brand Name: theophyll ine Send Method: E-Prescri bed Subs Allowed: subs OK Specia l Instructi on: TAKE 1 TABLET BY MOUTH EVERY DAY Medic ationGene ricName: theophyll ine Medic ation ID: [id number] Dur ation Value: 90 Brand Name: theophyll [...] mg capsule 04/22 completed Medicatio n ID: [id number] Dur ation Value: 90 Brand Name: flaxseed oil Send Method: E-Prescri bed Subs Allowed: subs OK Specia l Instructi on: TAKE 2-3 CAPSULES BY MOUTH DAILY Med icationGe nericName : flaxseed oil Medic ation ID: [id number] Dur ation Value: 90 Brand Name: flaxseed oil Send Method: E-Prescri bed Subs Allowed: subs OK Specia l Instructi on: TAKE 2-3 CAPSULES BY MOUTH DAILY Med icationGe nericName : flaxseed oil Not Available Not Available Not Available mupirocin 2 % topical ointment 04/22 completed Medicatio n ID: [id number] Dur ation Value: 7 Brand Name: mupirocin Send Method: E-Prescri bed Subs Allowed: subs OK Specia l Instructi on: APPLY A SMALL AMOUNT TO AFFECTED AREA THREE TIMES A DAY Medic ationGene ricName: mupirocin Medicati on ID: [id number] Dur ation Value: 7 Brand Name: mupirocin Send Method: E-Prescri bed Subs Allowed: subs OK Specia l Instructi on: APPLY A SMALL AMOUNT TO AFFECTED AREA THREE TIMES A DAY Medic ationGene ricName: mupirocin Not Available Not Available Not Available polyethyl mesfin glycol 3350 17 gram/dose oral powder 04/22 completed Medicatio n ID: [id number] Dur ation Value: 30 Brand Name: polyethyl mesfin glycol 3350 Send Method: E-Prescri bed Subs Allowed: subs OK Specia l Instructi on: DISSOLVE 1 CAPFULE IN 4-8 OZ OF LIQUID DAILY NEEDED Me dicationG enericNam e: polyethyl mesfin glycol 3350 Medi cation ID: [id number] Dur ation Value: 30 Brand Name: polyethyl mesfin glycol 3350 Send Method: E-Prescri bed Subs Allowed: subs OK Specia l Instructi on: DISSOLVE 1 CAPFULE IN 4-8 OZ OF LIQUID DAILY NEEDED Me dicationG enericNam e: polyethyl mesfin glycol 3350 Not Available Not Available Not Available imipramin e 25 mg tablet 04/22 completed Medicatio n ID: [id number] Dur ation Value: 30 Brand Name: imipramin e HCl Send Method: E-Prescri bed Subs Allowed: subs OK Specia l Instructi on: TAKE 1 TABLET BY MOUTH EVERY MORNING AND 3 TABLETS EVERY EVENING M edication GenericNa me: imipramin e HCl Medic ation ID: [id number] Dur ation Value: 30 Brand Name: imipramin e HCl Send Method: E-Prescri bed Subs Allowed: subs OK Specia l Instructi on: TAKE 1 TABLET BY MOUTH EVERY MORNING AND 3 TABLETS EVERY EVENING M edication GenericNa me: imipramin e HCl Not Available Not Available Not Available loratadin e 10 mg tablet 2014 active Medicatio n ID: [id number] Dur ation Value: 30 Brand Name: loratadin e Send Method: E-Prescri bed Subs Allowed: subs OK Specia l Instructi on: TAKE 1 TABLET BY MOUTH DAILY Med icationGe nericName : loratadin e Medicat ion ID: [id number] Dur ation Value: 30 Brand Name: loratadin e Send Method: E-Prescri bed Subs Allowed: subs OK Specia l Instructi on: TAKE 1 TABLET BY MOUTH DAILY Med icationGe nericName : loratadin e Not Available Not Available Not Available Abilify 15 mg tablet 2014 active Medicatio n ID: [id number] Dur ation Value: 90 Brand Name: Abilify S end Method: E-Prescri bed Subs Allowed: subs OK Specia l Instructi on: TAKE 1 TABLET BY MOUTH EVERY MORNING M edication GenericNa me: Abilify M edication ID: [id number] Dur ation Value: 90 Brand Name: Abilify S end Method: E-Prescri bed Subs Allowed: subs OK Specia l Instructi on: TAKE 1 TABLET BY MOUTH EVERY MORNING M edication GenericNa me: Abilify Not Available Not Available Not Available Vesicare 5 mg tablet 2014 active Medicatio n ID: [id number] Dur ation Value: 90 Brand Name: Vesicare Send Method: E-Prescri bed Subs Allowed: subs OK Specia l Instructi on: TAKE 1 TABLET BY MOUTH EVERY MORNING M edication GenericNa me: Vesicare Medicatio n ID: [id number] Dur ation Value: 90 Brand Name: Vesicare Send Method: E-Prescri bed Subs Allowed: subs OK Specia l Instructi on: TAKE 1 TABLET BY MOUTH EVERY MORNING M edication GenericNa me: Vesicare Not Available Not Available Not Available Cogentin 04/22 completed Medicatio n ID: [id number] Br and Name: cogchristine Send Method: E-Prescri bed Subs Allowed: subs OK Medica tionGener icName: christian Medicatio n ID: [id number] Br and Name: christian Send Method: E-Prescri [...] Code 8680 MIKAEL DORMAN MD [facility] [address] [address] 04/22/2024 10:32:31 04/22/2024 11:17:22 Mass of parapharyngeal space [id number] R22.1 Health Concerns Section Related Observation LastModified by Organization Detai ls LastModified Time None Recorded Concern Status LastModified by Organization Details LastModified Time None Recorded Advance Directives Directive None Recorded Payers Encounter Date Sequence Insurance Name Policy Number Policy Cobb Covered Member ID Cobb Member ID Guarantor Name 04/22/2024 2 [place] [facility] Kirsten Ramesh Du Bois [id number] Kirsten M Shima 04/22/2024 1 [place] [facility] Kirsten M Shima [id number] Kirsten Ramesh Shima Notes Date Note Type [...] thyroidectomy in October 2023 MIKAEL DORMAN MD [address] [place] [address], [address], [place] [facility] 04/22/2024 11:11:35 OBGyn Episode No OBEpisode recorded.
--- NOTE | 2024-10-01 10:13 | MHC.OFFVIS ---
Intake Visit Reasons: PO: Rt CTR wound check 07/22/24 Intake Note: Kirsten is a 68 year old right hand dominant female, accompanied by a residential staff, presents today post operatively for a wound check s/p right Carpal Tunnel Release DOS: 07/22/[address] Delong. Allergies adhesive tape Allergy (Intermediate, Verified 09/11/24 16:47) itching and skin redness latex Allergy (Intermediate, Verified 09/11/24 16:47) skin rash and itching Seasonal Allergies Allergy (Verified 09/11/24 16:47) Itching weed pollen Allergy (Verified 09/11/24 16:47) stuffy nose DUST Allergy (Unknown, Uncoded 09/11/24 16:47) ITCHY/WATERY EYES surgical paper tape Allergy (Unknown, Uncoded 09/11/24 16:47) rash Tide Allergy (Unknown, Uncoded 09/11/24 16:47) rash HPI HPI PO: Rt CTR wound check 07/22/24: Details: Patient is a 69-year-old female who presents for postoperative evaluation and wound check status post right carpal tunnel release, DOS 07/22/2024. Today, the patient reports that she is feeling much better, and experiences no pain in the right hand, and that the redness in her right hand has completely resolved. Patient denies any ongoing numbness or tingling in the right upper extremity. Patient would like to get signed up for left-sided surgery at this time. No other acute complaints or concerns at this time [facility] Medical History Abnormal MRI Post-surgical hypothyroidism History of ESBL E. coli infection Toxic multinodular goiter Toxic multinodular goiter Vitamin D deficiency Hyperthyroidism Multinodular thyroid Colon cancer Lung mass Developmental delay, mild Arthritis Surgical History History of carpal tunnel surgery of right wrist Hx of total thyroidectomy History of biopsy Hx of colonic polyps Hx of colonoscopy Family History Father No problems noted. Mother Medical history unknown Social History Household Members: Caregiver Household Members Other:: gr home Housing: Other Housing Other:: [facility] Unable to assess alcohol history related to: Unknown Alcohol intake: never Patient Tobacco Use Status: Never used Tobacco e-Cigarette/Vaping Use: Never Used Second Hand Smoke Exposure: No Advance Directives Date on File: 01/05/21 service: No Current occupational status: disabled Current occupation: right handed Review of Systems Const All systems reviewed & are unremarkable except as noted in HPI and below Physical Exam Extrem Other: Evaluation of Right Upper Extremity: The patient is alert, oriented, and in no acute distress She has an intellectual handicap but was able to actively participate in her appointment today. She is a poor historian Neuro: Sensation intact to the median nerve distribution of the right hand Diminished sensation in the median nerve distribution of the left hand in the office today Normal sensation of the tip of the bilateral small fingers No thenar or intrinsic wasting Vascular: Cap refill brisk ROM: She can make a fist and extend all her digits The incision site appears to be healing well. No purulence or drainage from the incision site No erythema or edema noted She can easily make a fist and extend all of her digits without discomfort. Nerve Conduction Study: IMPRESSION: 1. This is an abnormal study. 2. There is electrodiagnostic evidence for bilateral moderate-severe median neuropathy at the wrist, consistent with carpal tunnel syndrome. 3. There is electrodiagnostic evidence for bilateral ulnar neuropathy at the elbow. 4. There is no electrodiagnostic evidence for brachial plexopathy, or cervical radiculopathy. Marylin Burgess MD, HITESH 03/06/24 Assessment & Plan Assessment & Plan (1) Carpal tunnel syndrome of right wrist: Code(s): G56.01 - Carpal tunnel syndrome, right upper limb Category: Medical (2) Carpal tunnel syndrome of left wrist: Code(s): G56.02 - Carpal tunnel syndrome, left upper limb Category: Medical (3) Cubital tunnel syndrome on right: Code(s): G56.21 - Lesion of ulnar nerve, right upper limb Category: Medical (4) Cubital tunnel syndrome on left: Code(s): G56.22 - Lesion of ulnar nerve, left upper limb Category: Medical Plan 1. Carpal tunnel syndrome, right, status post carpal tunnel release DOS 07/22/2024 Patient appears to be recovering well postoperatively Patient is educated about the typical recovery course At this time, patient is informed that it appears that her infection after her right carpal tunnel release has completely resolved Patient will require no further acute treatment or follow-up for this Patient was amenable to this plan 2. Carpal tunnel syndrome, left Symptoms constant, daily, worse at night I educated the patient about the condition. I discussed both operative and nonoperative treatment options. The patient would like to proceed with surgery. The risks and benefits of operative treatment were discussed with the patient and the patient wishes to proceed with surgery. These risks include, but are not limited to, risk of damage to blood vessels, nerves, tendons, infection, recurrence, incomplete relief of preoperative symptoms, persistent pain, possible need for further surgery, and the risks associated with regional blocks and/or anesthesia. Plan is to take the patient to the operating room at some point in the next few weeks for the following procedures: 1. Left carpal tunnel release under local anesthesia All of the preoperative paperwork including the consent was discussed today. All of the patient's questions were answered in the clinic today. The patient understands that they will be in contact with our surgical clinical reviewer to discuss scheduling their procedure. Patient denies diabetes, blood thinners, asthma, heart issues, lung issues, kidney issues, or current smoking. 3. Bilateral cubital tunnel syndrome Asymptomatic No acute intervention is indicated at this time, as the patient is experiencing no signs or symptoms of cubital tunnel syndrome Patient states understanding of this and is amenable to this plan Coding Level of Care Code Est Pt Level 4 (17245) Diagnoses Carpal tunnel syndrome of right wrist G56.01 Carpal tunnel syndrome of left wrist G56.02 Cubital tunnel syndrome on right G56.21 Cubital tunnel syndrome on left G56.22
== END 2024-10-01 10:52 | disposition home or self-care (01) ==
PROVIDERS: PCP Internal Medicine
DX: G56.03 Carpal tunnel syndrome, bilateral upper limbs (principal); G56.23 Lesion of ulnar nerve, bilateral upper limbs
CPT/HCPCS: 99024

== ENCOUNTER → 2024-10-01 10:05 | Outpatient (BNVA) | payer MEDICARE, MEDICAID, SELFPAY | PROVIDERS: PCP Internal Medicine | DX: Z47.89 Encounter for other orthopedic aftercare (principal); Z98.890 Other specified postprocedural states; G56.02 Carpal tunnel syndrome, left upper limb; G56.23 Lesion of ulnar nerve, bilateral upper limbs | CPT/HCPCS: 99212 ==

== ENCOUNTER 2024-10-11 12:20 | Outpatient (REF) | payer MEDICARE, MEDICAID, SELFPAY ==
--- OUTSIDE RECORDS SUMMARY | 2024-10-11 12:23 | XMS_ITS | Data Portability ---
Author Organization [place] - [facility], Allergy Address [address] [address] Assessment Encounter Date Assessment Date Assessment LastModified by Organization Details LastModified Time 04/22/2024 04/22/2024 Incidental finding of right parapharyngeal lesion is partially visualized on previous MRI. Recommend further imaging with MRI neck with and without contrast and then likely referral to [facility] for discussion of surgical intervention. 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 Requested to share results with Patricia Villavicencio RN [phone] [email or web address] Not available 04/22/2024 11:08:51 Plan of Treatment Reminders Order Date Submit Date Provider Last Modified By Organization Details Last Modified Time Details Appointments None recorded. Lab None recorded. Referral None recorded. Procedures None recorded. Surgeries None recorded. Imaging MRI, neck, w/wo contrast - followup of right parapharyn geal lesion 2023 024 [facility] [place], [address] , [address], [address], 11:29:49 Medication Orders None recorded. Patient TargetsNo targets recorded. Patient InstructionsNo instructions recorded. Reason for Referral None Reported. Results Created Date Observation Date Name Description Value Unit Range Abnormal Flag Note LastModifiedBy Organization Detail LastModifiedTime 05/01/20 24 04/30/2024 MRI, neck, w/ contr ast No observ ation record ed. dplosky [facility] [place] [address], [place], [address], 05/01/2024 10:09:56 05/01/20 24 04/30/2024 MRI, neck, w/ contr ast No observ ation record ed. dplosky [facility] [place] [address] [facility] [address], [place], [address], 05/01/2024 10:09:56 Result Notes None recorded. Problems Name Problem SNOMED Code Status Onset Date Resolution Date Notes Provider Name and Address Organization Details Recorded Time Sensorine ural hearing loss of bilateral ears 942673938 Active 2014 Sensorine ural HL, bilateral ; Note: Date Diagnosed : 11/20/2014 4:41 PM (389.18) Note: Date Diagnosed : 11/20/2014 4:41 PM (389.18) Not Available [facility] 4 01:02:50 Impacted cerumen of bilateral ears [id number] 64053 Active 2016 Impacted cerumen, bilateral ; Note: Date Diagnosed : 11/29/2016 11:26 AM (H61.23) Note: Date Diagnosed : 11/29/2016 11:26 AM (H61.23) Not Available [facility] 4 01:02:50 Abnormal auditory perceptio n 19054623 Active 2018 Abnormal auditory perceptio n, unspecifi ed; Note: Date Diagnosed : 11/20/2014 5:39 PM (388.40) Note: Date Diagnosed : 11/20/2014 5:39 PM (388.40) ; Start Date : 5 Other abnormal auditory perceptio ns, bilateral ; Note: Date Diagnosed : 12/06/2018 1:15 PM (H93.293) Note: Date Diagnosed : 12/06/2018 1:15 PM (H93.293) Not Available [facility] 4 01:02:51 Impacted cerumen 49799630 Active 2014 Impacted cerumen; CMS Risk: low [...] : 11/20/2014 5:40 PM (380.4) Not Available [facility] 01:02:[facility] Mass of paraphary ngeal space [id number] 110474 Active 2023 MIKAEL DORMAN MD [address] [address], [place], [address] , [facility] 09:11:36 Problem Notes None recorded. Procedures Surgical History Date Name Laterality Status Provider Name and Address Organization Details Recorded Time 04/22/2024 FOL_DP completed MIKAEL DORMAN MD [address] [place] [address], [place], [address], [facility] 04/22/2024 11:07:34 Imaging Results Imaging Date Name Status LastModified by Organiz ation Details LastModified Time 04/30/2024 MRI, neck, w/ contrast completed dplosky [facility] [address], [address], 05/01/2024 10:09:56 04/30/2024 MRI, neck, w/ contrast completed dplosky [facility] [address], [address], 05/01/2024 10:09:56 Procedure Notes None recorded. Medical Equipment None Reported. Allergies Allergen ID Allergen Name Allergen Category Reaction Reaction Severity Criticality Documentation Date Start Date Code Code System Note Provider Name and Address Organization Details Recorded Time 124297 latex environme nt,medica tion Not available Not available Not available 04/22/2024 67617 91 RxNorm Su ceja [facility] 10:59:19 Medications Name Sig Start Date Stop Date Status Note LastModified by Organization Details LastModified Time doxycycli ne hyclate 100 mg capsule 04/22 completed Medicatio n ID: [id number] Dur ation Value: 10 Brand Name: doxycycli ne hyclate S end Method: E-Prescri bed Subs Allowed: subs OK Specia l Instructi on: TAKE ONE CAPSULE BY MOUTH TWICE A DAY Medic ationGene ricName: doxycycli ne hyclate M edication ID: [id number] Dur ation Value: 10 Brand Name: doxycycli ne hyclate S end Method: E-Prescri bed Subs Allowed: subs OK Specia l Instructi on: TAKE ONE CAPSULE BY MOUTH TWICE A DAY Medic ationGene ricName: doxycycli ne hyclate Not Available Not Available Not Available acetamino phen 300 mg-codein e 30 mg tablet 2014 active Medicatio n ID: [id number] Dur ation Value: 4 Brand Name: acetamino phen-code ine Send Method: E-Prescri bed Subs Allowed: subs OK Specia l Instructi on: TAKE 1 TABLET BY MOUTH EVERY 6 HOURS NEEDED FOR PAIN Medi cationGen ericName: acetamino phen-code ine Medic ation ID: [id number] Dur ation Value: 4 Brand Name: acetamino phen-code ine Send Method: E-Prescri bed Subs Allowed: subs OK Specia l Instructi on: TAKE 1 TABLET BY MOUTH EVERY 6 HOURS NEEDED FOR PAIN Medi cationGen ericName: acetamino phen-code ine Not Available Not Available Not Available theophyll ine ER 300 mg tablet,ex tended release,1 2 hr 04/22 completed Medicatio n ID: [id number] Dur ation Value: 90 Brand Name: theophyll ine Send Method: E-Prescri bed Subs Allowed: subs OK Specia l Instructi on: TAKE 1 TABLET BY MOUTH EVERY DAY Medic ationGene ricName: theophyll ine Medic ation ID: [id number] Dur ation Value: 90 Brand Name: theophyll [...] mg capsule 04/22 completed Medicatio n ID: [id number] Dur ation Value: 90 Brand Name: flaxseed oil Send Method: E-Prescri bed Subs Allowed: subs OK Specia l Instructi on: TAKE 2-3 CAPSULES BY MOUTH DAILY Med icationGe nericName : flaxseed oil Medic ation ID: [id number] Dur ation Value: 90 Brand Name: flaxseed oil Send Method: E-Prescri bed Subs Allowed: subs OK Specia l Instructi on: TAKE 2-3 CAPSULES BY MOUTH DAILY Med icationGe nericName : flaxseed oil Not Available Not Available Not Available mupirocin 2 % topical ointment 04/22 completed Medicatio n ID: [id number] Dur ation Value: 7 Brand Name: mupirocin Send Method: E-Prescri bed Subs Allowed: subs OK Specia l Instructi on: APPLY A SMALL AMOUNT TO AFFECTED AREA THREE TIMES A DAY Medic ationGene ricName: mupirocin Medicati on ID: [id number] Dur ation Value: 7 Brand Name: mupirocin Send Method: E-Prescri bed Subs Allowed: subs OK Specia l Instructi on: APPLY A SMALL AMOUNT TO AFFECTED AREA THREE TIMES A DAY Medic ationGene ricName: mupirocin Not Available Not Available Not Available polyethyl mesfin glycol 3350 17 gram/dose oral powder 04/22 completed Medicatio n ID: [id number] Dur ation Value: 30 Brand Name: polyethyl mesfin glycol 3350 Send Method: E-Prescri bed Subs Allowed: subs OK Specia l Instructi on: DISSOLVE 1 CAPFULE IN 4-8 OZ OF LIQUID DAILY NEEDED Me dicationG enericNam e: polyethyl mesfin glycol 3350 Medi cation ID: [id number] Dur ation Value: 30 Brand Name: polyethyl mesfin glycol 3350 Send Method: E-Prescri bed Subs Allowed: subs OK Specia l Instructi on: DISSOLVE 1 CAPFULE IN 4-8 OZ OF LIQUID DAILY NEEDED Me dicationG enericNam e: polyethyl mesfin glycol 3350 Not Available Not Available Not Available imipramin e 25 mg tablet 04/22 completed Medicatio n ID: [id number] Dur ation Value: 30 Brand Name: imipramin e HCl Send Method: E-Prescri bed Subs Allowed: subs OK Specia l Instructi on: TAKE 1 TABLET BY MOUTH EVERY MORNING AND 3 TABLETS EVERY EVENING M edication GenericNa me: imipramin e HCl Medic ation ID: [id number] Dur ation Value: 30 Brand Name: imipramin e HCl Send Method: E-Prescri bed Subs Allowed: subs OK Specia l Instructi on: TAKE 1 TABLET BY MOUTH EVERY MORNING AND 3 TABLETS EVERY EVENING M edication GenericNa me: imipramin e HCl Not Available Not Available Not Available loratadin e 10 mg tablet 2014 active Medicatio n ID: [id number] Dur ation Value: 30 Brand Name: loratadin e Send Method: E-Prescri bed Subs Allowed: subs OK Specia l Instructi on: TAKE 1 TABLET BY MOUTH DAILY Med icationGe nericName : loratadin e Medicat ion ID: [id number] Dur ation Value: 30 Brand Name: loratadin e Send Method: E-Prescri bed Subs Allowed: subs OK Specia l Instructi on: TAKE 1 TABLET BY MOUTH DAILY Med icationGe nericName : loratadin e Not Available Not Available Not Available Abilify 15 mg tablet 2014 active Medicatio n ID: [id number] Dur ation Value: 90 Brand Name: Abilify S end Method: E-Prescri bed Subs Allowed: subs OK Specia l Instructi on: TAKE 1 TABLET BY MOUTH EVERY MORNING M edication GenericNa me: Abilify M edication ID: [id number] Dur ation Value: 90 Brand Name: Abilify S end Method: E-Prescri bed Subs Allowed: subs OK Specia l Instructi on: TAKE 1 TABLET BY MOUTH EVERY MORNING M edication GenericNa me: Abilify Not Available Not Available Not Available Vesicare 5 mg tablet 2014 active Medicatio n ID: [id number] Dur ation Value: 90 Brand Name: Vesicare Send Method: E-Prescri bed Subs Allowed: subs OK Specia l Instructi on: TAKE 1 TABLET BY MOUTH EVERY MORNING M edication GenericNa me: Vesicare Medicatio n ID: [id number] Dur ation Value: 90 Brand Name: Vesicare Send Method: E-Prescri bed Subs Allowed: subs OK Specia l Instructi on: TAKE 1 TABLET BY MOUTH EVERY MORNING M edication GenericNa me: Vesicare Not Available Not Available Not Available Cogentin 04/22 completed Medicatio n ID: [id number] Br and Name: cogentin Send Method: E-Prescri bed Subs Allowed: subs OK Medica tionGener icName: cogchristine Medicatio n ID: [id number] Br and Name: christian Send Method: E-Prescri [...] Diagnosis/Indication Diagnosis SNOMED-CT Code Diagnosis ICD10 Code Diagnosis Note 8680 MIKAEL DORMAN MD [facility] [address] [address] 04/22/2024 10:32:31 04/22/2024 11:17:22 Mass of parapharyngeal space [id number] R22.1 Health Concerns Section Related Observation LastModified by Organization Detai ls LastModified Time None Recorded Concern Status LastModified by Organization Details LastModified Time None Recorded Advance Directives Directive None Recorded Payers Encounter Date Sequence Insurance Name Policy Number Policy Cobb Covered Member ID Cobb Member ID Guarantor Name 04/22/2024 2 [place] [facility] Kirsten M Nunnelly [id number] Kirsten M Shima 04/22/2024 1 MEDICARE B-[place] [facility] Kirsten M Shima [id number] Kirsten Ramesh Shima Notes Date Note Type [...] thyroidectomy in October 2023 MIKAEL DORMAN MD [address] [place] [address], [address], [facility] - [facility] 04/22/2024 11:11:35 OBGyn Episode No OBEpisode recorded.
[2024-10-11 13:00] LABS: MANUAL DIFF FLAG NO
[2024-10-11 13:03] LABS: Basophils Absolute Auto 0.1 X10*3/uL (0.0-0.2); Basophils Percent Auto 0.4 % (0-2); Eosinophils Absolute Auto 0.2 X10*3/uL (0.0-0.4); Eosinophils Percent Auto 1.4 % (0-4); Hematocrit 34.8 % (37.0-47.0); Hemoglobin 11.1 g/dl (12.0-16.0); Imm Gran Abs Auto 0.04 X10*3/uL (0.00-0.03); Imm Gran Pct Auto 0.3 % (0.0-0.4); Lymphocytes Percent Auto 17.1 % (20-40); Mean Corpuscular HGB Conc 31.9 g/dl (31.0-35.0); Mean Corpuscular Hemoglobin 29.8 pg (27.0-33.0); Mean Corpuscular Volume 93.3 fL (80.0-98.0); Mean Platelet Volume 9.2 fL (9.4-12.3); Monocytes Absolute Auto 1.4 X10*3/uL (0.1-1.2); Monocytes Percent Auto 11.5 % (2-11); Neutrophils Absolute Auto 8.2 x10*3/uL (2.0-8.3); Neutrophils Percent Auto 69.3 % (45-73); Platelet Count 266 X10*3/uL (160-400); Red Blood Count 3.73 X10*6/uL (4.20-5.50); Red Cell Distribution Width 14.2 % (11.0-16.0); White Blood Count 11.9 X10*3/uL (4.8-10.8)
[2024-10-11 13:32] LABS: Alanine Aminotransferase 14 U/L (0-31); Albumin Level 3.6 g/dL (3.5-5.0); Alkaline Phosphatase 99 U/L (39-117); Anion Gap 9 (12-20); Aspartate Amino Transferase 17 U/L (5-31); Bilirubin Total 0.2 mg/dL (0.0-1.0); Blood Urea Nitrogen 25 mg/dL (9-16); Calcium 8.7 mg/dL (8.4-10.2); Carbon Dioxide 28 mmol/L (22-29); Chloride 108 mmol/L (96-108); Cholesterol 173 mg/dL (<200); Estimated Glomerular Filt Rate 60; Glucose Random 90 mg/dL (60-115); Potassium 4.1 mmol/L (3.3-5.1); Sodium 141 mmol/L (135-145); Total Protein 7.8 g/dL (6.5-8.0)
[2024-10-11 13:39] LABS: Free T4 (Free Thyroxine) 0.99 ng/dL (0.71-1.85)
[2024-10-11 13:51] LABS: Folate 11.3 ng/mL (> or = 4.0); Vitamin B12 712 pg/mL (200-900)
== END 2024-10-11 12:21 | disposition home or self-care (01) ==
LOC: HO.10HDL 12:20
PROVIDERS: Visit Provider Internal Medicine
DX: G40.909 Epilepsy, unspecified, not intractable, without status epilepticus (principal); E03.9 Hypothyroidism, unspecified; N18.9 Chronic kidney disease, unspecified; Z85.038 Personal history of other malignant neoplasm of large intestine
CPT/HCPCS: 36415; 80053; 82465; 82607; 82746; 84439; 84443; 85025

== ENCOUNTER → 2024-11-28 13:00 | Outpatient (BNV) | payer MEDICARE, MEDICAID, SELFPAY | PROVIDERS: PCP Internal Medicine; Visit Provider Radiology Diagnostic Radiology | DX: Z12.31 Encounter for screening mammogram for malignant neoplasm of breast (principal) | CPT/HCPCS: 77063; 77067 ==

== ENCOUNTER 2024-11-28 13:06 | Outpatient (REF) | payer MEDICARE, MEDICAID, SELFPAY ==
--- NOTE | ~2024-11-28 | MM_ITS ---
EXAMINATION: DXA BONE DENSITY AXIAL HISTORY: Estrogen deficiency TECHNIQUE: [employer] Dual energy absorptiometry (DEXA) of the lumbar spine, total left hip, and femoral neck was performed. COMPARISON: Comparison is made with the prior examination dated 10/25/2016. FINDINGS: The bone mineral density of the lumbar spine is 13.25 with a T-score of 1.3, and a Z-score of 3.0. This represents a BMD change of 13.5% compared to the prior exam. This is statistically significant. The bone mineral density of the left total hip is 0.812 with a T-score of -1.6, and a Z-score of -.01. This represents BMD change of -16.7% compared to the prior exam. This is statistically significant. The bone mineral density of the left femoral neck is 0.762 with a T-score of -2.0, and a Z-score of -0.3. This represents BMD change of -11.7% compared to the prior exam. FRACTURE RISK: The FRAX index suggests a ten year probability of major osteoporotic fracture of 16.1%, and of hip fracture 5.3%. MM/XR DEXA axial skeleton IMPRESSION: Based on bone mineral density, and according to World Health Organization (WHO) criteria, the diagnosis is consistent with osteopenia. All bone density values are in grams per centimeter squared (g/cm2). Statistically, 68% of repeat scans fall within 1 SD (+/- 0.010 g/cm2 for AP spine L1-L4) and 1 SD (+/- 0.012 g/cm2 for femur total) FRAX is a trademark of the [employer]'s [employer] Metabolic Bone Disease, a World Health Organization (WHO) Collaborating Center. Electronically signed by: Harvinder Salinas MD 11/28/2024 01:37 PM JENNY
--- NOTE | ~2024-11-28 | MM_ITS ---
EXAMINATION: MM SCREENING DIGITAL BREAST TOMOSYNTHESIS, BILATERAL CLINICAL INFORMATION: Screening. Asymptomatic. COMPARISON: Mammography: Comparison is made with available priors TECHNIQUE: Digital breast mammography with tomosynthesis is performed in both the craniocaudal and mediolateral oblique views along with computer-aided detection (CAD). FINDINGS: There are scattered areas of fibroglandular density (ACR BI-RADS breast composition Category b). There are no significant masses, abnormal calcifications, or other abnormalities. MM/MM tomosynthesis screening BI IMPRESSION: No mammographic evidence of malignancy. ASSESSMENT: BI-RADS BI-RADS 1 - Negative RECOMMENDATION: Routine annual mammography screening. 1 year F/U This examination should not preclude the clinical evaluation of a suspicious palpable abnormality. This patient's information was entered into a reminder system with a target due date for their next mammogram. Electronically signed by: Tish Gutierres DO 12/02/2024 03:05 PM JENNY
--- OUTSIDE RECORDS SUMMARY | 2024-11-28 15:37 | XMS_ITS | Encounter Summary ---
Author Organization [facility] Address [address] [place] [address] Care Team Providers Care Hypo Dipper Name Role Phone Sher Patrick Primary Care Provider [phone] Reason for Visit * Reason Onset Date Comments Needs to reschedule 09/28/2020 Encounter Details Date Type Department Care Team (Late st Contact Info) Description 09/28/2020 Telephone [facility] Central Scheduling Department [address] [place] [address] Telephone Intake, Staff Needs to reschedule Social History Tobacco Use Types Packs/Day Years Used Date Smoking Tobacco: Never Smokeless Tobacco: Never Comments:: Alcohol Use Standard Drinks/Week Comments Never 0 (1 standard drink = 0.6 oz pur e alcohol) Comments No Sex and Gender Information Value Date Recorded Sex Assigned at Female 08/21/2024 3:36 PM EST Legal Sex Female 6:10 AM EDT Gender Identity Not on file Sexual Orientation Not on file documented as of this encounter Miscellaneous Notes * Telephone Encounter - Etta Dale - 09/28/2020 9:43 AM EST Pt had an appt with Marcy via telehealth on 09/29 scheduled, but clinic moved the appt to 09/30. Ptis moving on 09/30 and unable to have that appt date. Please call Gabriella to reschedule. Nothing populated for telehealth visits for Marcy. Thank you documented in this encounter Plan of Treatment Upcoming Encounters Date Type Department Care Team (Latest Contact Info) Description 05/02/2025 7:15 AM EDT Hospital Encounter [facility] Operating Room [address] [place] [address] Catracho Vidal MD MPH [address] [place] [address] 05/05/2025 7:15 AM EDT - 05/05/2025 8:20 AM EDT Surgery [facility] [address] [place] [address] Catracho Vidal MD MPH [address] [place] [address] Colonoscopy Screening, High Risk with Possible Moderate Sedation [40902 (CPT??)] Scheduled Procedures Name Priority Associated Diagnoses Date/Ti me COLONOSCOPY SCREENING, HIGH RISK WITH POSSIBLE MODERATE SEDATION Colorectal cancer (HCC) 05/05/2025 7:15 AM EDT documented as of this encounter Visit Diagnoses Not on filedocumented in this encounter Additional Health Concerns Infection Onset Date Last Indicated Resolved Time 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
--- OUTSIDE RECORDS SUMMARY | 2024-11-28 15:37 | XMS_ITS | Encounter Summary ---
Author Organization [facility] Address [address] [place] [address] Care Team Providers Care Aoc Operations Intelligence Chief Name Role Phone Sher Patrick Primary Care Provider [phone] Encounter Details Date Type Department Care Team (Late st Contact Info) Description 11/04/2024 8:14 AM EST Anesthesia Event [facility] Operating Room [address] [place] [address] Sarah Chapa MD [address] [place] [id number] Ross Jean MD [address] [facility] [place] Anesthesiology [place], [place] [id number] Anesthesia Record Procedure Summary Procedure Name Responsible Anesthesiologist Anesthesia Start Time Anesthesia Stop Time TRANSANAL ENDOSCOPIC MICROSURGERY, possible TAMIS. with air seal (Anus) Sarah Chapa MD 11/04/24 0814 11/04/24 1028 Events Date Time Event Comment 11/04/2024 0718 0814 In Room 0814 An Start 0814 An Start Data 0824 An Induction The patient was reevaluated immediately before induction of anesthesia. Mask induction, nitrous, sevo. Patient became anxious with sevo. After falling asleep, became bradycardic to 30, SBP 79. PIV obtained in L AC, HR recovered with IV ephedrine, glyco. 0833 An Intubation 0834 Anesthesia Ready 0856 Proc Start 0959 Proc Fin 1019 An Extubation 1022 Out of Room 1028 an stop data 1028 Handoff to RN I completed my handoff to the receiving nurse during which we: 1. Identified the patient 2. Identified the responsible provider 3. Reviewed the pertinent medical history 4. Discussed the surgical course 5. Reviewed intra-op anesthesia management and issues during anesthesia 6. Set expectations for post-procedure period 7. Allowed opportunity for questions and acknowledgement of understanding. 1028 An Stop Meds Name Total sodium phosphate 7.5 mmol in 0.9% NaCl 1 00 mL IVPB 7.5 mmol glycopyrrolate (ROBINUL) injection 0.4 m g ondansetron (ZOFRAN) injection 4 mg ePHEDrine sulfate PF injection 35 mg propofol (DIPRIVAN) bolus 20 mg rocuronium (ZEMURON) 10mg/mL IV syringe 50 mg phenylephrine (ASHLEY-SYNEPHRINE) injection 80 mcg ertapenem (INVanz) vial 1 g 1 g fentaNYL (SUBLIMAZE) injection 150 mcg phenylephrine (ASHLEY-SYNEPHRINE) infusion (premix bag) 0.37 mg acetaminophen (OFIRMEV) IV 1,000 mg sugammadex (BRIDION) injection 246 mg sodium chloride 0.9% (NS) infusion 1,200 mL * Agents Name ETO2 (%) Actual Inspired FiO2 (O2%) Set FiO2 (O2%) * Blood No blood administrations on file. Lines, Drains, and Airways Type Details Placement Removal Incision / Procedural Site 04/01/24; Rectum 04/01/24 0000 by Mariel Guzman RN Incision / Procedural Site 11/04/24; Rectum; Mid 11/04/24 0000 by Mariel Guzman RN Peripheral IV Placement Date: 11/04/24; Placement Time: 08; Catheter Size: 22 G; Orientation: Left; Location: Antecubital; Site Prep: Alcohol; Inserted by: Mandeep; Insertion Attempts: 1 11/04/24 0824 by Flynn Perrin CRNA Peripheral IV Placement Date: 11/04/24; Placement Time: 0849; Catheter Size: 18 G; Orientation: Right; Location: Wrist; Site Prep: Alcohol; Inserted by: DHAVAL; Insertion Attempts: 11/04/24 0849 by Flynn Perrin CRNA ETT Placement Date 11/04; Placement Time 0833; Mask Ventilation Vent by mask, Vent by mask + OA or adjuvant; Technique Stylet, Direct laryngoscopy; Single Lumen Tube Size 7 mm; Cuffed Yes; Laryngoscope Horvath; Blade Size 2; Measured from Gums; Secured at (cm) 20 cm; Location Oral; Grade View Grade I; Insertion Attempts 1; Placement Verification Auscultation, Capnometry, Symmetrical chest wall movement; Comments atraumatic; mask induction -- good airway; Removal Date 11/04/24; Removal Time 1019 11/04/24 0833 by Flynn Perrin CRNA 11/04/24 1019 by Flynn Perrin CRNA Urethral Catheter Placement Date: 11/04/24; Placement Time: 0835; Inserted by: Chiquita Guzman RN; Type: Double-lumen; Size: 16 Fr.; Balloon Size: 10 mL; Urine Returned: Yes; Removal Date: 11/04/24; Removal Time: 1006; Removal Reason: Per protocol 11/04/24 0835 by Mariel Guzman RN 11/04/24 1006 by Mariel Guzman RN documented in this encounter Social History Tobacco Use Types Packs/Day Years Used Date Smoking Tobacco: Never Smokeless Tobacco: Never Alcohol Use Standard Drinks/Week Comments Never 0 (1 standard drink = 0.6 oz pur e alcohol) [facility] Utilities Answer Date Recorded In the past 12 months has e electric, gas, oil, or water [place] threatened to shut off services in your home? No 08/21/2024 Hunger Vital Sign Answer Date Recorded Within the past 12 months, y ou worried that your food would run out before you got the money to buy more. Never true 08/21/20 24 Within the past 12 months, t he food you bought just didn't last and you didn't have money to get more. Never true 08/21/2024 Transportation Answer Date Recorded In the past 12 months, has l ack of reliable transportation kept you from medical appointments, meetings, work or from getting things needed for daily living? No 08/21/2024 Housing Answer Date Recorded Housing Risk Low 2 08/21/2024 Housing Risk Medium Not on file 08/21/2024 Housing Risk High Not on file 08/21/2024 What is your living situation today? [facility] 08/21/2024 Comments No Sex and Gender Information Value Date Recorded Sex Assigned at Female 08/21/2024 3:36 PM EST Legal Sex Female 6:10 AM EDT Gender Identity Not on file Sexual Orientation Not on file documented as of this encounter Last Filed Vital Signs Vital Sign Reading Time Taken Comments Blood Pressure 112/70 11/04/2024 10:19 AM EST Pulse 62 11/04/2024 10:13 AM EST Temperature 33.6 ??C (92.4 ??F) 11/04/2024 10:[address] Respiratory Rate 0 11/04/2024 10:22 AM EST Oxygen Saturation 98% 11/04/2024 10:20 AM EST Inhaled Oxygen Concentration - - Weight - - Height - - Body Mass Index - - documented in this encounter OR Notes * Anesthesia Postprocedure Evaluation - Sarah Chapa MD - 11/04/2024 10:46 AM EST Anesthesia Post-procedure Evaluation Patient: Kirsten Ronquillo : 1955 Date of Procedure: 11/04/2024 Procedure Summary Date: 11/04/24 [place] / [place] [facility] [place] [facility] [place] Anesthesia Start: 813 Anesthesia Stop: 1027 Procedure: TRANSANAL ENDOSCOPIC MICROSURGERY, possible TAMIS. with air seal (Anus) Diagnosis: Anorectal polyp (Anorectal polyp [K62.0, K62.1]) Surgeons: Catracho Vidal MD MPH Responsible Provider: Sarah Chapa MD Anesthesia Type: general ASA Status: 3 Anesthesia Type: general Last vitals Vitals Value Taken Time BP 120/67 11/04/24 1040 Temp 36 ??C (96.8 ??F) 11/04/24 1028 Pulse 57 11/04/24 1044 Resp 11 11/04/24 1044 SpO2 100 % 11/04/24 1044 Vitals shown include unfiled device data. Anesthesia Post Evaluation Patient location during evaluation: PACU Patient participation: complete - patient participated Level of consciousness: awake Pain management: adequate Anesthetic complications: no Nausea and Vomiting: no Cardiovascular status: acceptable Respiratory status: acceptable Hydration status: acceptable Comments: Awake, alert, calm, comfortable No notable events documented. Sarah Chapa MD Date: 11/04/2024 Time: 10:46 AM * Anesthesia Preprocedure Evaluation - Sarah Chapa MD - 08/22/2024 9:17 AM EST Anesthesia Pre-procedure Evaluation Patient: Kirsten Ronquillo : 1955 Date of Procedure: 08/26/2024 Preoperative Diagnosis: Pre-op Diagnosis * Anorectal polyp [K62.0, K62.1] TRANSANAL ENDOSCOPIC MICROSURGERY, possible TAMIS. with air seal: 86049 (CPT??) Surgeon(s): Catracho Vidal MD MPH Past Medical / Past Surgical: Past Medical History: Diagnosis Date Anxiety Worsening anxiety recently, increase psychosis at night, really only sleeping 1- 2 hrs at night Arthritis Asthma never intubated or hospitalized. no longer uses inhaler Bipolar disorder with depression ([facility]) ([facility]) 12/24/2020 Cataract 12/24/2020 Chronic diarrhea Increase diarrhea, incontinent, over the last 1 week Class 3 severe obesity in adult ([facility]) 12/22/2020 Colon cancer ([facility]) 2001 Colon polyps 08/23/2019 Constipation 12/24/2020 Deep vein thrombosis ([facility]) remote history, takes Aspirin 81 mg daily Depression Developmental delay Intellectual disability 12/22/2020 Mood disorder ([facility]) 12/24/2020 Obesity Personal history of rectal cancer 12/22/2020 Presbyopia 12/24/2020 Psychotic disorder ([facility]) 12/24/2020 Rectal mass 08/19/2019 Rectal polyp Rheumatoid arthritis ([facility]) 12/24/2020 S/P colonoscopy with polypectomy 08/03/2020 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 Urinary incontinence Urinary retention 12/24/2020 Venous stasis Past Surgical History: Procedure Laterality Date COLECTOMY Rectal cancer HERNIA REPAIR SD COLONOSCOPY FLX DX W/COLLJ SPEC WHEN PFRMD N/A 08/05/2020 Procedure: COLONOSCOPY, DIAGNOSTIC, WITH POSSIBLE MODERATE SEDATION; Surgeon: Catracho Vidal MD MPH; [place]: [facility] [place]; Service: Colorectal SD COLONOSCOPY FLX DX W/COLLJ SPEC WHEN PFRMD N/A 12/23/2020 Procedure: COLONOSCOPY, DIAGNOSTIC, WITH POSSIBLE MODERATE SEDATION; Surgeon: Catracho Vidal MD MPH; Location: [facility] [place]; Service: Colorectal SD COLONOSCOPY FLX DX W/COLLJ SPEC WHEN PFRMD N/A 07/05/2021 Procedure: COLONOSCOPY, DIAGNOSTIC, POLYPECTOMY WITH MODERATE SEDATION ; Surgeon: Catracho Vidal MD MPH; Location: [facility] [place]; Service: Colorectal SD COLONOSCOPY FLX DX W/COLLJ SPEC WHEN PFRMD N/A 03/20/2023 Procedure: DIAGNOSTIC FLEXIBLE COLONOSCOPY PROXIMAL TO SPLENIC FLEXURE WITH COLLECTION OF SPECIMEN BY WASHING AND COLON DECOMPRESSION; Surgeon: Catracho Vidal MD MPH; Location: [facility] [place]; Service: Colorectal SD COLONOSCOPY FLX DX W/COLLJ SPEC WHEN PFRMD N/A 09/19/2023 Procedure: DIAGNOSTIC FLEXIBLE COLONOSCOPY PROXIMAL TO SPLENIC FLEXURE WITH COLLECTION OF SPECIMEN BY WASHING AND COLON DECOMPRESSION; Surgeon: Catracho Vidal MD MPH; Location: [facility] [place]; Service: Colorectal SD COLONOSCOPY FLX DX W/COLLJ SPEC WHEN PFRMD N/A 04/01/2024 Procedure: COLONOSCOPY SCREENING, LOW RISK WITH POSSIBLE MODERATE SEDATION; Surgeon: Catracho Vidal MD MPH; Location: [facility] [place]; Service: Colorectal SD COLONOSCOPY W/BIOPSY SINGLE/MULTIPLE Left 08/22/2019 Procedure: COLONOSCOPY W/ BIOPSY, SINGLE OR MULTIPLE WITH POSSIBLE MODERATE SEDATION; Surgeon: Catracho Vidal MD MPH; Location: [facility]; Service: Colorectal SD COLSC FLX W/RMVL OF TUMOR POLYP LESION SNARE TQ Left 08/05/2020 Procedure: COLONOSCOPY, FLEXIBLE; WITH REMOVAL OF TUMOR(S), POLYP(S), OR OTHER LESION(S) BY SNARE TECHNIQUE AND POSSIBLE MODERATE SEDATION; Surgeon: Catracho Vidal MD MPH; Location: [facility]; Service: Colorectal SD SGMDSC FLX W/DCMPRN W/PLMT DCMPRN TUBE N/A 09/19/2022 Procedure: FLEXIBLE SIGMOIDOSCOPY, WITH snare polypectomy; Surgeon: Catracho Vidal MD MPH; Location: [facility] [place]; Service: Colorectal Social / Family Histories: Vaping Questions Responses Vaping Use Never User Social History Tobacco Use Smoking status: Never Smokeless tobacco: Never Substance Use Topics Alcohol use: Never Social History Substance and Sexual Activity Drug Use Never Family History Problem Relation Age of Onset No Known Problems Mother No Known Problems Father Diabetes Brother OB History No obstetric history on file. Prior to Admission medications Medication Sig Start Date End Date Taking? Authorizing Provider acetaminophen (TYLENOL) 325 mg tablet Take 2 tablets (650 mg total) by mouth every 4 hours as needed for pain. 08/23/19 Meagan L. Nicole, PA ARIPiprazole (ABILIFY) 15 mg tablet Take 15 mg by mouth once a day. Unknown Provider, aspirin 81 mg EC tablet Take 81 mg by mouth daily. 05/16/19 Unknown Provider, benztropine (COGENTIN) 0.5 mg tablet Take 1 tablet (0.5 mg total) by mouth daily. 08/24/19 PAYTON Deleon carBAMazepine (TEGretol) 200 mg tablet TAKE 1 IN AM AND 2 TABS AT NIGHT 06/27/19 Unknown Provider, guaiFENesin (ROBITUSSIN) 100 mg/5 mL syrup Take 200 mg by mouth 3 times a day as needed for congestion. Unknown Provider, hydroCHLOROthiazide (HYDRODIURIL) 25 mg tablet Take 25 mg by mouth daily. 09/01/20 Unknown Provider, ibuprofen (MOTRIN) 400 mg tablet Take 400 mg by mouth every 6 hours as needed for pain. 04/08/21 Unknown Provider, imipramine (TOFRANIL) 25 mg tablet Take 1 tablet (25 mg total) by mouth daily. 08/24/19 PAYTON Márquez imipramine (TOFRANIL) 25 mg tablet Take 3 tablets (75 mg total) by mouth nightly. Patient taking differently: Take by mouth 2 times a day. 25 mg in AM, 75 mg in PM 08/23/19 PAYTON Deleon loratadine (CLARITIN) 10 mg tablet Take 10 mg by mouth daily. 08/06/19 Unknown Provider, melatonin 3 mg tablet Take 5 mg by mouth nightly. Unknown Provider, methyl salicylate-menthol (Icy Hot) 29-7.6 % ointment 1 application by Topical (top) route 2 times a day. Unknown Provider, multivitamin capsule Take 1 capsule by mouth once a day. Unknown Provider, Myrbetriq 50 mg tablet Take 50 mg by mouth once a day. 06/22/22 Unknown Provider, nystatin (MYCOSTATIN) 100,000 unit/gram powder Apply 1 application topically to the affected area 2times a day as needed (Rash and itching). 06/19/19 Unknown Provider, polyethylene glycol 3350 (MIRALAX) 17 gram packet Take 17 g by mouth daily as needed for constipation. Take 17 g by mouth daily. Mix powder in 4 to 8 oz of water, juice, coffee, or tea daily as needed for constipation. Unknown Provider, Allergies: Latex and Dust [house dust] Vitals / Weight: not currently . Recent Labs: Recent EKG: Patient's Hospital Problems: Patient Active Problem List Diagnosis Rectal Polyps Rectal mass Colon polyps S/P colonoscopy with polypectomy Intellectual disability Personal history of rectal cancer Class 3 severe obesity in adult (HCC) Asthma Constipation Rheumatoid arthritis (HCC) Urinary retention Urinary incontinence Mood disorder (HCC) Bipolar disorder with depression (CMS/HCC) (HCC) Psychotic disorder (HCC) Strabismic amblyopia Cataract Presbyopia Colorectal cancer (HCC) Recurrent rectal polyp Encounter for screening colonoscopy Anesthesia Evaluation Patient summary reviewed. Anesthesia History: No history of anesthetic complications no previous history of anesthetic complications Pulmonary (+) asthma ROS comment: never intubated or hospitalized. no longer uses inhaler Cardiovascular (+) history of DVT, , , , , , , , Past MO: [place]. Neuro/Psych (+) psychiatric history, depression, anxiety, bipolar disorder Comments: Developmental delay GI/Hepatic/Renal Comments: colorectal cancer status post LAR in 2000. She has had multiple recurrent polyps at her anastomosis Endo/Other (+) , cancer, musculoskeletal problem, rheumatoid arthritis, obesity Infectious Disease (+) ESBL History of Present Illness: 67 y.o. female with significant past medical history of intellectual disability, anxiety, bipolar disorder, psychotic disorder, rheumatoid arthritis, asthma, and colorectal cancer status post LAR in 2000. She has had multiple recurrent polyps at her anastomosis. Now here for planned TRANSANAL ENDOSCOPIC MICROSURGERY, possible TAMIS Physical Exam Airway Mallampati: III TM distance: >3 FB Neck ROM: full Mouth Opening: good Cardiovascular - normal exam Dental (+) edentulous Pulmonary - normal exam Abdominal Anesthesia Plan ASA 3 Anesthesia Type: general Minimal ambulation with walker around her room to commode No recent URI No CP/palpitations/syncope NPO adequate Mild developmental delay. Able to answer questions appropriately, but very afraid of needles, and veins are very small, appear fragile and dehydrated. Unsuccessful 1 attempt at PIV in preop holding, significant distress even after topical lidocaine spray. Will proceed with inhalational induction in OR. Patient position will be adjusted intra-op, starting right lateral decub. Will intubate. Use of blood products discussed with healthcare power of commissioner conservation of resources who consented to blood products. Pre-Anesthesia Review by Attending Anesthesiologist: Sarah Chapa MD Date: 11/04/2024 Time: 9:14 AM I have interviewed and examined the patient and conducted a pre-anesthesia evaluation that includedreview of the complete medical history, notation of a relevant patient problem list and review of all pertinent preoperative studies, laboratory testing and specialty consultations. An assessment of anesthetic risk including ASA classification and an anesthetic plan have been documented. Original Author: Ross Jean MD documented in this encounter Plan of Treatment Upcoming Encounters Date Type Department Care Team (Latest Contact Info) Description 05/02/2025 7:15 AM EDT Hospital Encounter [facility] Operating Room [address] [place] [id number] Catracho Vidal MD MPH [address] [place] [address] 05/05/2025 7:15 AM EDT - 05/05/2025 8:20 AM EDT Surgery [facility] Operating Room [address] [place] [id number] Catracho Vidal MD MPH [address] [place] [address] Colonoscopy Screening, High Risk with Possible Moderate Sedation [83954 (CPT??)] Scheduled Procedures Name Priority Associated Diagnoses Date/Ti me COLONOSCOPY SCREENING, HIGH RISK WITH POSSIBLE MODERATE SEDATION Colorectal cancer (HCC) 05/05/2025 7:15 AM EDT documented as of this encounter Visit Diagnoses Not on filedocumented in this encounter Administered Medications Inactive Administered Medications - up to 3 most recent administrations Medication Order MAR Action Action Date Dose Rate Site acetaminophen (OFIRMEV) in 100 mL IVPB premix intravenous, Administer over 15 Minutes, As needed, Starting on Mon11/04/24 at 1009, Until Mon11/04/24 at 1028, Anesthesia Intra-op Given 11/04/2024 10:09 AM EST 1,000 mg ePHEDrine sulfate (AKOVAZ) injection intravenous, As needed, Starting on Mon11/04/24 at 0829, Until Mon11/04/24 at 1028, Anesthesia Intra-op Given 11/04/2024 9:26 AM EST 10 mg Given 11/04/2024 8:32 AM EST 10 mg Given 11/04/2024 8:29 AM EST 15 mg ertapenem (INVanz) injection intravenous, As needed, Starting on Mon11/04/24 at 0837, Until Mon11/04/24 at 1028, Anesthesia Intra-op Given 11/04/2024 8:37 AM EST 1 g fentaNYL (PF) injection epidural, As needed, Starting on Mon11/04/24 at 0857, Until Mon11/04/24 at 1028, Anesthesia Intra-op Given 11/04/2024 9:58 AM EST 50 mcg Given 11/04/2024 8:57 AM EST 100 mcg glycopyrrolate (ROBINUL) injection intravenous, As needed, Starting on Mon11/04/24 at 0830, Until Mon11/04/24 at 1028, Anesthesia Intra-op Given 11/04/2024 8:30 AM EST 0.4 mg ondansetron (ZOFRAN) injection intravenous, As needed, Starting on Mon11/04/24 at 1003, Until Mon11/04/24 at 1028, Anesthesia Intra-op Given 11/04/2024 10:03 AM EST 4 mg phenylephrine (ASHLEY-SYNEPHRINE) 10 mg in 0.9% NaCl 250 mL premix infusion intravenous, Continuous PRN, Starting on Mon11/04/24 at 0940, Until Mon11/04/24 at 1028, Anesthesia Intra-op New Bag/Syringe 11/04/2024 9:40 AM EST 0.2 mcg/kg/min 18.45 mL/hr phenylephrine HCl in 0.9% NaCl (ASHLEY-SYNEPHRINE) 0.4 mg in 0.9% NaCl 10 mL syringe intravenous, As needed, Starting on Mon11/04/24 at 0908, Until Mon11/04/24 at 1028, Anesthesia Intra-op Given 11/04/2024 9:29 AM EST 40 mcg Given 11/04/2024 9:08 AM EST 40 mcg propofoL (DIPRIVAN) injection intravenous, As needed, Starting on Mon11/04/24 at 0834, Until Mon11/04/24 at 1028, Anesthesia Intra-op Given 11/04/2024 8:34 AM EST 20 mg rocuronium (ZEMURON) injection intravenous, As needed, Starting on Mon11/04/24 at 0834, Until Mon11/04/24 at 1028, Anesthesia Intra-op Given 11/04/2024 9:58 AM EST 20 mg Given 11/04/2024 8:34 AM EST 30 mg sodium chloride 0.9% (NS) premix infusion intravenous, Continuous PRN, Starting on Mon11/04/24 at 0831, Until Mon11/04/24 at 1028, Anesthesia Intra-op New Bag/Syringe 11/04/2024 9:38 AM EST New Bag/Syringe 11/04/2024 8:31 AM EST sodium phosphate 7.5 mmol in 0.9% NaCl 100 mL IVPB 7.5 mmol, intravenous, at 16.7 mL/hr, Administer over 6 Hours, Once, On Mon11/04/24 at 0730, 1 dose, Admission, Room Temperature. New Bag/Syringe 11/04/2024 8:37 AM EST 7.5 mmol sugammadex (BRIDION) injection intravenous, As needed, Starting on Mon11/04/24 at 1009, Until Mon11/04/24 at 1028, Anesthesia Intra-op Given 11/04/2024 10:09 AM EST 246 mg documented in this encounter Additional Health Concerns Infection Onset Date Last Indicated Resolved Time Multidrug resistant organism s ESBL Comment:ESBL E.coli 08/03/2020 08/03/2020 documented as of this encounter Care Teams Aoc Operations Intelligence Chief Relationship Specialty Start Date End Date Sher Patrick [address] [place] [address] dr Jose Garcia, IDRIS [id number] PCP - General 04/20/17 documented as of this encounter
--- OUTSIDE RECORDS SUMMARY | 2024-11-28 15:37 | XMS_ITS | Encounter Summary ---
Author Organization [facility] Address [address] [place] [address] Care Team Providers Care Supervisor Home Energy Consultant Name Role Phone Sher Patrick Primary Care Provider [phone] Encounter Details Date Type Department Care Team (Late st Contact Info) Description 11/04/2024 7:45 AM EST - 11/04/2024 10:15 AM EST Surgery [facility] Operating Room [address] [place], [place] [id number] Catracho Vidal MD MPH [address], [place] [id number] TRANSANAL ENDOSCOPIC MICROSURGERY, possible TAMIS. with air seal [61395 (CPT??)] Social History Tobacco Use Types Packs/Day Years Used Date Smoking Tobacco: Never Smokeless Tobacco: Never Alcohol Use Standard Drinks/Week Comments Never 0 (1 standard drink = 0.6 oz pur e alcohol) [facility] Utilities Answer Date Recorded In the past 12 months has e [employer], gas, oil, or water [employer] threatened to shut off services in your [...] Sign Reading Time Taken Comments Blood Pressure 129/68 11/04/2024 5:12 AM EST Pulse 62 11/04/2024 5:12 AM EST Temperature 36.4 ??C (97.5 ??F) 11/04/2024 5:12 AM ES T Respiratory Rate 19 11/04/2024 5:12 AM EST Oxygen Saturation 92% 11/04/2024 5:12 AM EST Inhaled Oxygen Concentration - - Weight 61.5 kg (135 lb 9.3 oz) 10/31/2024 11:21 PM EST Height 157.5 cm (5' 2.01 ) 10/31/2024 11:[address] Body Mass Index 24.79 10/31/2024 11:21 PM EST documented in this encounter Discharge Summaries * Tino Akins MD - 11/04/2024 5:34 PM EST Images from the original note were not included. DISCHARGE SUMMARY [facility] DISCHARGE INFORMATION: Date and Time of Admission: 10/31/2024 11:29 PM Date of Discharge: 11/04/2024 DISCHARGE DIAGNOSIS: Problem List Active Problems * (Principal) Rectal Polyps Bipolar disorder with depression (CMS/HCC) (HCC) Mood disorder (HCC) Psychotic disorder ([facility]) ATTENDING PHYSICIAN ON DISCHARGE: FOLLOW-UPS AND SCHEDULED APPOINTMENTS: No future appointments. PENDING LABS: . None DISCHARGE MEDICATIONS: Discharge Medication list: Discharge Medications Modified Medications Sig Disp Refill acetaminophen 500 mg tablet Commonly known as: TYLENOL What changed: medication strength how much to take Take 1 tablet (500 mg total) by mouth every 4 hours as needed for pain. 0 Medications To Continue Sig Disp Refill ascorbic acid 500 mg tablet Generic drug: ascorbic acid 500 mg. By mouth twice daily 0 aspirin 81 mg EC tablet Take 81 mg by mouth daily. 6 betamethasone dipropionate 0.05 % ointment 2 times a day. Apply to affected dry areas on hands twice daily as needed 0 carBAMazepine 200 mg tablet Commonly known as: TEGretol TAKE 1 IN AM AND 2 TABS AT NIGHT 0 Colace 100 mg capsule Generic drug: docusate sodium Take 100 mg by mouth. 1 capsule by mouth twice daily 0 donepeziL 5 mg tablet Commonly known as: ARICEPT 5 mg. 5 mg by mouth daily at bedtime 0 ferrous sulfate 325 mg (65 mg iron) EC tablet Take 325 mg by mouth. 325mg by mouth Mon-Mon-Mon in AM 0 INV [id number] triamcinolone acetonide Apply topically to the affected area. Thin layer topically to the affected area twice daily as needed 0 loratadine 10 mg tablet Commonly known as: CLARITIN Take 10 mg by mouth daily. 5 melatonin 3 mg tablet Take 10 mg by mouth nightly. 0 methenamine 1 gram tablet Commonly known as: HIPREX See Instructions, TAKE 1 TABLET BY MOUTH TWICE DAILY., # 90 capsule, 3 Refills, Maintenance, 06/28/24 10:07:00 [facility], 154, cm, 11/02/23 15:00:00 EST, Height, 57.6, kg, 12/01/23 8:48:00 EST, Dry Weight 0 multivitamin capsule Take 1 capsule by mouth once a day. 0 QUEtiapine 50 mg tablet Commonly known as: SEROquel Take 50 mg by mouth 3 times a day. 0 tamsulosin 0.4 mg capsule Commonly known as: FLOMAX Take 0.4 mg by mouth once a day. 0 traZODone 100 mg tablet Commonly known as: DESYREL Take 100 mg by mouth nightly. 0 Stopped Medications ARIPiprazole 15 mg tablet Commonly known as: ABILIFY benztropine 0.5 mg tablet Commonly known as: COGENTIN imipramine 25 mg tablet Commonly known as: TOFRANIL levothyroxine 112 mcg tablet Commonly known as: SYNTHROID, LEVOTHROID Myrbetriq 50 mg tablet Generic drug: mirabegron polyethylene glycol 3350 17 gram packet Commonly known as: MIRALAX sodium chloride 1,000 mg tablet,soluble Unreviewed Medications Sig Disp Refill guaiFENesin 100 mg/5 mL syrup Commonly known as: ROBITUSSIN Take 200 mg by mouth 3 times a day as needed for congestion. 0 ibuprofen 400 mg tablet Commonly known as: MOTRIN Take 400 mg by mouth every 6 hours as needed for pain. 0 ALLERGIES: Latex and Dust [house dust] IMMUNIZATION HISTORY: Most Recent Immunizations Administered Date(s) Administered Covid-19 Monovalent Vaccine, Moderna, mRNA, PF 12/02/2020 Influenza, Injectable, Quadrivalent, Preservative Free 07/05/2021 PRESENTATION INFORMATION: HISTORY OF PRESENT ILLNESS:Ms. Kirsten Ronquillo is a 68 y.o. female with significant past medical history of colorectal cancer s/p LAR, developmental delay, remote hx of DVT, obesity, hyperthyroidism who is a direct admit for bowel prep for TAMIS on 11/04/24. Pt is limited historian 11/03 to developmental disability, but pt reports that she has not been experiencing abnormal bowel changes, abdominal pain, blood in her stool, early satiety, nor abnormal weight loss. Denies N/V/D PAST MEDICAL HISTORY: Past Medical History: Diagnosis Date Anxiety Worsening anxiety recently, increase psychosis at night, really only sleeping 1- 2 hrs at night Arthritis Asthma never intubated or hospitalized. no longer uses inhaler Bipolar disorder with depression ([facility]) ([facility]) 12/24/2020 Cataract 12/24/2020 Chronic diarrhea Increase diarrhea, incontinent, over the last 1 week Class 3 severe obesity in adult ([facility]) 12/22/2020 Colon cancer ([facility]) 2002 Colon polyps 08/23/2019 Constipation 12/24/2020 Deep vein thrombosis ([facility]) remote history, takes Aspirin 81 mg daily Depression Developmental delay Intellectual disability 12/22/2020 Mood disorder ([facility]) 12/24/2020 Obesity Personal history of rectal cancer 12/22/2020 Presbyopia 12/24/2020 Psychotic disorder ([facility]) 12/24/2020 Rectal mass 08/19/2019 Rectal polyp Rheumatoid arthritis ([facility]) 12/24/2020 S/P colonoscopy with polypectomy 08/03/2020 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 Urinary incontinence Urinary retention 12/24/2020 Venous stasis PAST SURGICAL HISTORY: Past Surgical History: Procedure Laterality Date COLECTOMY Rectal cancer HERNIA REPAIR AL COLONOSCOPY FLX DX W/COLLJ SPEC WHEN PFRMD N/A 08/05/2020 Procedure: COLONOSCOPY, DIAGNOSTIC, WITH POSSIBLE MODERATE SEDATION; Surgeon: Catracho Vidal MD MPH; [place] [facility]; Service: Colorectal AL COLONOSCOPY FLX DX W/COLLJ SPEC WHEN PFRMD N/A 12/23/2020 Procedure: COLONOSCOPY, DIAGNOSTIC, WITH POSSIBLE MODERATE SEDATION; Surgeon: Catracho Vidal MD MPH; Location: [facility]; Service: Colorectal AL COLONOSCOPY FLX DX W/COLLJ SPEC WHEN PFRMD N/A 07/05/2021 Procedure: COLONOSCOPY, DIAGNOSTIC, POLYPECTOMY WITH MODERATE SEDATION ; Surgeon: Catracho Vidal MD MPH; Location: [facility]; Service: Colorectal AL COLONOSCOPY FLX DX W/COLLJ SPEC WHEN PFRMD N/A 03/20/2023 Procedure: DIAGNOSTIC FLEXIBLE COLONOSCOPY PROXIMAL TO SPLENIC FLEXURE WITH COLLECTION OF SPECIMEN BY WASHING AND COLON DECOMPRESSION; Surgeon: Catracho Vidal MD MPH; [place] [facility] [place]; Service: Colorectal AL COLONOSCOPY FLX DX W/COLLJ SPEC WHEN PFRMD N/A 09/19/2023 Procedure: DIAGNOSTIC FLEXIBLE COLONOSCOPY PROXIMAL TO SPLENIC FLEXURE WITH COLLECTION OF SPECIMEN BY WASHING AND COLON DECOMPRESSION; Surgeon: Catracho Vidal MD MPH; [place] [facility] [place]; Service: Colorectal AL COLONOSCOPY FLX DX W/COLLJ SPEC WHEN PFRMD N/A 04/01/2024 Procedure: COLONOSCOPY SCREENING, LOW RISK WITH POSSIBLE MODERATE SEDATION; Surgeon: Catracho Vidal MD MPH; [place] [facility] [place]; Service: Colorectal AL COLONOSCOPY W/BIOPSY SINGLE/MULTIPLE Left 08/22/2019 Procedure: COLONOSCOPY W/ BIOPSY, SINGLE OR MULTIPLE WITH POSSIBLE MODERATE SEDATION; Surgeon: Catracho Vidal MD MPH; [place] [facility] [place]; Service: Colorectal AL COLSC FLX W/RMVL OF TUMOR POLYP LESION SNARE TQ Left 08/05/2020 Procedure: COLONOSCOPY, FLEXIBLE; WITH REMOVAL OF TUMOR(S), POLYP(S), OR OTHER LESION(S) BY SNARE TECHNIQUE AND POSSIBLE MODERATE SEDATION; Surgeon: Catracho Vidal MD MPH; [place] [facility] [place] Service: Colorectal AL SGMDSC FLX W/DCMPRN W/PLMT DCMPRN TUBE N/A 09/19/2022 Procedure: FLEXIBLE SIGMOIDOSCOPY, WITH snare polypectomy; Surgeon: Catracho Vidal MD MPH; [place] [facility] [place]; Service: Colorectal PAST FAMILY HISTORY: Family History Problem Relation Age of Onset No Known Problems Mother No Known Problems Father Diabetes Brother PAST SOCIAL HISTORY: Social History Socioeconomic History Marital status: Single Spouse name: Not on file Number of children: Not on file Years of education: Not on file Highest education level: Not on file Occupational History Not on file Tobacco Use Smoking status: Never Smokeless tobacco: Never Vaping Use Vaping status: Never Used Substance and Sexual Activity Alcohol use: Never Drug use: Never Sexual activity: Defer Other Topics Concern Not on file Social History Narrative Not on file HOSPITAL COURSE: Patient was admitted on 10/31 for bowel prep prior to surgery. She underwent a very slow bowel prep over the next few days, she completed her bowel prep on 11/03 and on 11/04 she went to the OR for TEMS. Patient tolerated procedure well, and the polyp was excised. On postoperative check she was doing well with good tolerance to regular diet and voided afterwards. Patient was discharged on the same date. DISCHARGE DAY INFORMATION: DISCHARGE PHYSICAL EXAM: Vital signs: Blood pressure 116/66, pulse 63, temperature 36.2 ??C (97.2 ??F), temperature source Temporal, resp. rate 16, height 1.575 m (5' 2.01 ), weight 61.5 kg (135 lb 9.3 oz), SpO2 98%, not currently . GENERAL: Well nourished, well developed, no apparent distress HEAD: Conjunctivae non-ictereric ENT: Moist oral mucosa, no lesions NECK: No JVD, trachea midline CV: Bilateral radial 2+ RESPIRATORY: Equal chest rise bilaterally, normal respiratory effort SKIN: No rashes, jaundice, ecchymosis or ulcers ABDOMINAL: Soft, non-tender, non-distended, no palpable hepatosplenomegaly or masses MUSCULOSKELETAL: No pedal edema NEURO: Alert oriented x 3; No gross deficits PSYCH: Normal mood and affect GLOBAL PLAN OF CARE CONSULTS: IP CONSULT TO IV THERAPY NURSE PROCEDURES: Procedures Performed During Hospitalization Procedure(s): TRANSANAL ENDOSCOPIC MICROSURGERY, possible TAMIS. with air seal CONDITION: Good [employer] PLANNING Code Status: Full Code Medical Decision Maker: HCP Isi Thompson I spent 10 minutes performing discharge day services (e.g. examination, discussion of hospital course, follow up care and planning) as appropriate Signature: Tino Akins MD PGY-1 Electronic Signature Cosigned by Catracho Vidal MD MPH at 11/08/2024 1:47 PM EST Associated attestation - Catracho Vidal MD MPH - 11/08/2024 1:47 PM EST I saw and evaluated the patient on the date of discharge. Kirsten Ronquillo : 1955 CSN: [id number] documented in this encounter Discharge Instructions * Discharge Instructions* PAYTON Martino - 11/04/2024 3:54 PM EST COLORECTAL SURGERY - General Discharge Instructions: Pain control: You will have some discomfort associated with surgery. Effective pain control is essential during your recovery. Please use the medications listed below for pain control: Acetaminophen (Tylenol): 500 mg every 6 hours as needed for pain. Do not exceed 4 gm of acetaminophen (Tylenol) per day. In addition to the medications above, you may use a heating pad for abdominal discomfort/cramping. Diet: For the first few weeks after surgery, you may have a decreased appetite. It can be helpful to eat case fitter foods initially and have small meals more frequently throughout the day instead of 3 larger meals. Nutritional supplement shakes (Ensure, [place] Instant Breakfast, Boost etc) can helpyou reach your calorie needs during this time. Bathing: Unrestricted Bowel Movements: Resume your preoperative bowel medications. Activity: As tolerated. Follow up: You will be seen in the Colorectal Clinic for a postoperative check 7-10 days from your discharge date (occasionally this appointment occurs earlier or later based on availability of appointments). This appointment will be with the surgical nurse practitioner. If you do not already have a scheduled follow up appointment listed on this paperwork, please call the office at upon return home to make one. You will see your surgeon approximately 4- 6 weeks after discharge. Concerns: If you are experiencing fevers, persistent nausea, vomiting, increasing pain, redness of the skin surrounding your incisions or if you have any other questions or concerns, please call the Colorectal Surgery office at . * Discharge Instr - Diet* PAYTON Martino - 11/04/2024 2:35 PM EST Regular Diet documented in this encounter Medications at Time of Discharge acetaminophen (TYLENOL) 500 mg tablet Take 1 tablet (500 mg total) by mouth every 4 hours as needed for pain. 11/04/2024 ascorbic acid 500 mg tablet 500 mg. By mouth twice daily 10/09/2024 aspirin 81 mg EC tablet Take 81 mg by mouth daily. 6 05/16/2019 betamethasone dipropionate 0.05 % ointment 2 times a day. Apply to affected dry areas on hands twice daily as needed 10/14/2024 carBAMazepine (TEGretol) 200 mg tablet TAKE 1 IN AM AND 2 TABS AT NIGHT 0 06/27/2019 Colace 100 mg capsule Take 100 mg by mouth. 1 capsule by mouth twice daily 10/12/2023 donepeziL (ARICEPT) 5 mg tablet 5 mg. 5 mg by mouth daily at bedtime 2024 ferrous sulfate 325 mg (65 mg iron) EC tablet Take 325 mg by mouth. 325mg by mouth Mon-Wed-Fri in AM 10/12/2023 guaiFENesin (ROBITUSSIN) 100 mg/5 mL syrup Take 200 mg by mouth 3 times a day as needed for congestion. ibuprofen (MOTRIN) 400 mg tablet Take 400 mg by mouth every 6 hours as needed for pain. 04/08/2021 INV [id number] triamcinolone acetoniden 0.1% topical ointment Apply topically to the affected area. Thin layer topically to the affected area twice daily as needed 06/15/2023 loratadine (CLARITIN) 10 mg tablet Take 10 mg by mouth daily. 5 08/06/2019 melatonin 3 mg tablet Take 10 mg by mouth nightly. methenamine (HIPREX) 1 gram tablet See Instructions, TAKE 1 TABLET BY MOUTH TWICE DAILY., # 90 capsule, 3 Refills, Maintenance, 06/28/24 10:07:00 EDT, [facility], 154, cm, 11/02/23 15:00:00 EST, Height, 57.6, kg, 12/01/23 8:48:00 EST, Dry Weight 06/28/2024 multivitamin capsule Take 1 capsule by mouth once a day. QUEtiapine (SEROquel) 50 mg tablet Take 50 mg by mouth 3 times a day. tamsulosin (FLOMAX) 0.4 mg capsule Take 0.4 mg by mouth once a day. traZODone (DESYREL) 100 mg tablet Take 100 mg by mouth nightly. documented as of this encounter Progress Notes * Man Stevens MD - 11/04/2024 6:30 AM EST Division of COLORECTAL SURGERY Daily Progress Note HISTORY OF PRESENT ILLNESS HPI: Ms. Kirsten Ronquillo is a 68 y.o. female with significant past medical history of colorectal cancer s/p LAR, developmental delay, remote hx of DVT, obesity, hyperthyroidism who is a direct admit for bowel prep for TAMIS on 11/04/24. Pt is limited historian 11/03 to developmental disability, but pt reports that she has not been experiencing abnormal bowel changes, abdominal pain, blood in her stool, early satiety, nor abnormal weight loss. Denies N/V/D. REVIEW OF SYSTEMS A 10-point review of systems was conducted and negative except for the findings noted in the HPI. Objective Temp: [32.6 ??C (90.6 ??F)-36.8 ??C (98.2 ??F)] 36 ??C (96.8 ??F) Heart Rate: [44-88] 68 Resp: [0-21] 16 BP: (79-197)/(51-92) 120/71 SpO2: [79 %-100 %] 100 % Set FiO2 (O2%): [0 %-100 %] 0 % Physical Exam Cons: Appears stated age. Well-appearing Female in NAD. Patient is lying in bed, saturating well onroom air.. Eyes: Conjunctiva white, extra-occular movements intact. ENT: Ears/nose atraumatic, no deformity. Hearing intact. Oral/nasal mucous membranes moist. Neck: Trachea midline, no deformity. Resp: Effort normal, no accessory muscle use. Symmetric chest rise. CV: Equal chest rise, no difficulty with respiration. Patient is warm and well perfused. GI: Abdomen is soft and non-distended. Non-tender to palpation in all quadrants.. MSK: Head, neck, and extremities without defect. Extremities warm. Skin: No rashes, lesions, ulcers on exposed skin. Neuro: Alert. No focal deficits. Psych: Oriented x3. Judgement/insight appropriate. Result Review I have reviewed the patient's labs results from the last 24 hours. No results found for this or any previous visit (from the past 24 hours). Imaging Results Radiology Review: I have personally reviewed the patient's imaging results. No radiology results in the last 2 days Assessment & Plan Principal Problem: Rectal Polyps Ms. Kirsten Ronquillo is a 68 y.o. female with significant past medical history of colorectal cancer s/p LAR, developmental delay, DVT, obesity, hyperthyroidism who is a direct admit for bowel prep for transanal endoscopic microsurgery possible [facility] on 11/04. Since admission she has completed bowel prep and is clinically in stable condition. She is appropriate for the OR today for scheduled TEMS withDrBlaine Vidal. Further plans to follow post operative course. Plans are preliminary and subject to change. Please see attending attestation for final plans. Signature: Man Stevens MD Resident Physician Pager: [phone] Cosigned by Catracho Vidal MD MPH at 11/08/2024 11:23 AM EST Associated attestation - Catracho Vidal MD MPH - 11/08/2024 11:23 AM EST I saw and evaluated the patient. Case discussed with the resident/fellow and I agree with the findings and plan as documented in the resident's/fellow's note. * Nethra Elizabeth, MD - 11/03/2024 10:52 AM EST Division of COLORECTAL SURGERY Daily Progress Note HISTORY OF PRESENT ILLNESS HPI: Ms. Kirsten Ronquillo is a 68 y.o. female with significant past medical history of colorectal cancer s/p LAR, developmental delay, remote hx of DVT, obesity, hyperthyroidism who is a direct admit for bowel prep for TAMIS on 11/04/24. Pt is limited historian 11/03 to developmental disability, but pt reports that she has not been experiencing abnormal bowel changes, abdominal pain, blood in her stool, early satiety, nor abnormal weight loss. Denies N/V/D. REVIEW OF SYSTEMS A 10-point review of systems was conducted and negative except for the findings noted in the HPI. Objective Temp: [35.9 ??C (96.6 ??F)-36.8 ??C (98.2 ??F)] 35.9 ??C (96.6 ??F) Heart Rate: [44-82] 44 Resp: [18-19] 19 BP: (122-150)/(51-83) 122/51 SpO2: [92 %-100 %] 100 % Physical Exam Cons: Appears stated age. Well-appearing Female in NAD. Patient is lying in bed, saturating well onroom air.. Eyes: Conjunctiva white, extra-occular movements intact. ENT: Ears/nose atraumatic, no deformity. Hearing intact. Oral/nasal mucous membranes moist. Neck: Trachea midline, no deformity. Resp: Effort normal, no accessory muscle use. Symmetric chest rise. CV: Equal chest rise, no difficulty with respiration. Patient is warm and well perfused. GI: Abdomen is soft and non-distended. Non-tender to palpation in all quadrants.. MSK: Head, neck, and extremities without defect. Extremities warm. Skin: No rashes, lesions, ulcers on exposed skin. Neuro: Alert. No focal deficits. Psych: Oriented x3. Judgement/insight appropriate. Result Review I have reviewed the patient's labs results from the last 24 hours. Recent Results (from the past 24 hours) Basic Metabolic Panel Collection Time: 11/03/24 12:56 AM Specimen: Venous, Peripheral; Blood Result Value Ref Range NA 138 135 - 145 mmol/L K 3.9 3.5 - 5.3 mmol/L Cl 104 98 - 107 mmol/L CO2 24 22 - 32 mmol/L BUN 13 7 - 23 mg/dL Creatinine 0.70 0.50 - 1.20 mg/dL Glucose 94 65 - 99 mg/dL Calcium 8.7 8.6 - 10.5 mg/dL Anion Gap 10 5 - 15 eGFR >90 >=60 mL/min/1.73m2 Magnesium Collection Time: 11/03/24 12:56 AM Specimen: Venous, Peripheral; Blood Result Value Ref Range MG 2.3 1.6 - 2.4 mg/dL Phosphorus Collection Time: 11/03/24 12:56 AM Specimen: Venous, Peripheral; Blood Result Value Ref Range Phosphorus 2.7 2.5 - 4.5 mg/dL Imaging Results Radiology Review: I have personally reviewed the patient's imaging results. No radiology results in the last 2 days Assessment & Plan Principal Problem: Rectal Polyps Ms. Kirsten Ronquillo is a 68 y.o. female with significant past medical history of colorectal cancer s/p LAR, developmental delay, DVT, obesity, hyperthyroidism who is a direct admit for bowel prep for transanal endoscopic microsurgery possible TAMIS on 11/04. Pt is limited historian 11/03 to developmental disability, but pt reports that she has not been experiencing abnormal bowel changes, abdominal pain, blood in her stool, early satiety, nor abnormal weight loss. Denies N/V/D. Upon exam, pt's abdomen was soft, non distended, non tender, and pt was in no acute distress. Plan is to continue bowel prep in anticipation of pt's procedure on 11/04. [ ] continue bowel prep today until clear BMs Plan discussed with fellow Dr. Cuellar and Attending: Dr. Rolando MD Signature: Palomo Elizabeth MD PGY-1 Electronic Signature Cosigned by Dread Marshall MD at 11/04/2024 8:42 AM EST Associated attestation - Dread Marshall MD - 11/04/2024 8:42 AM EST I saw and evaluated the patient. Case discussed with the resident/fellow and I agree with the findings and plan as documented in the resident's/fellow's note. * Palomo Elizabeth MD - 11/02/2024 10:29 AM EST Division of COLORECTAL SURGERY Daily Progress Note HISTORY OF PRESENT ILLNESS HPI: Ms. Kirsten Ronquillo is a 68 y.o. female with significant past medical history of colorectal cancer s/p LAR, developmental delay, remote hx of DVT, obesity, hyperthyroidism who is a direct admit for bowel prep for TAMIS on 11/04/24. Pt is limited historian 11/03 to developmental disability, but pt reports that she has not been experiencing abnormal bowel changes, abdominal pain, blood in her stool, early satiety, nor abnormal weight loss. Denies N/V/D. REVIEW OF SYSTEMS A 10-point review of systems was conducted and negative except for the findings noted in the HPI. Objective Temp: [36.1 ??C (97 ??F)-37.4 ??C (99.3 ??F)] 36.8 ??C (98.2 ??F) Heart Rate: [55-91] 57 Resp: [17-20] 20 BP: (106-158)/(52-73) 158/73 SpO2: [83 %-100 %] 92 % Physical Exam Cons: Appears stated age. Well-appearing Female in NAD. Patient is lying in bed, saturating well onroom air.. Eyes: Conjunctiva white, extra-occular movements intact. ENT: Ears/nose atraumatic, no deformity. Hearing intact. Oral/nasal mucous membranes moist. Neck: Trachea midline, no deformity. Resp: Effort normal, no accessory muscle use. Symmetric chest rise. CV: Equal chest rise, no difficulty with respiration. Patient is warm and well perfused. GI: Abdomen is soft and non-distended. Non-tender to palpation in all quadrants.. MSK: Head, neck, and extremities without defect. Extremities warm. Skin: No rashes, lesions, ulcers on exposed skin. Neuro: Alert. No focal deficits. Psych: Oriented x3. Judgement/insight appropriate. Result Review I have reviewed the patient's labs results from the last 24 hours. Recent Results (from the past 24 hours) Basic Metabolic Panel Collection Time: 11/02/24 10:25 AM Specimen: Venous, Peripheral; Blood Result Value Ref Range NA 136 135 - 145 mmol/L K 3.9 3.5 - 5.3 mmol/L Cl 100 98 - 107 mmol/L CO2 27 22 - 32 mmol/L BUN 20 7 - 23 mg/dL Creatinine 0.91 0.50 - 1.20 mg/dL Glucose 95 65 - 99 mg/dL Calcium 8.9 8.6 - 10.5 mg/dL Anion Gap 9 5 - 15 eGFR 68 >=60 mL/min/1.73m2 Magnesium Collection Time: 11/02/24 10:25 AM Specimen: Venous, Peripheral; Blood Result Value Ref Range MG 2.4 1.6 - 2.4 mg/dL Phosphorus Collection Time: 11/02/24 10:25 AM Specimen: Venous, Peripheral; Blood Result Value Ref Range Phosphorus 2.5 2.5 - 4.5 mg/dL Imaging Results Radiology Review: I have personally reviewed the patient's imaging results. No radiology results in the last 2 days Assessment & Plan Principal Problem: Rectal Polyps Ms. Kirsten Ronquillo is a 68 y.o. female with significant past medical history of colorectal cancer s/p LAR, developmental delay, DVT, obesity, hyperthyroidism who is a direct admit for bowel prep for transanal endoscopic microsurgery possible TAMIS on 11/04. Pt is limited historian 11/03 to developmental disability, but pt reports that she has not been experiencing abnormal bowel changes, abdominal pain, blood in her stool, early satiety, nor abnormal weight loss. Denies N/V/D. Upon exam, pt's abdomen was soft, non distended, non tender, and pt was in no acute distress. Plan is to continue bowel prep in anticipation of pt's procedure on 11/04. [ ] continue bowel prep today until clear BMs Plan discussed with fellow Dr. Cuellar and Attending: Dr. Rolando MD Signature: Palomo Elizabeth MD PGY-1 Electronic Signature Cosigned by Dread Marshall MD at 11/03/2024 8:56 AM EST Associated attestation - Dread Marshall MD - 11/03/2024 8:56 AM EST I saw and evaluated the patient. Case discussed with the resident/fellow and I agree with the findings and plan as documented in the resident's/fellow's note. * Palomo Elizabeth MD - 11/01/2024 11:22 AM EST Division of COLORECTAL SURGERY Daily Progress Note HISTORY OF PRESENT ILLNESS HPI: Ms. Kirsten Ronquillo is a 68 y.o. female with significant past medical history of colorectal cancer s/p LAR, developmental delay, remote hx of DVT, obesity, hyperthyroidism who is a direct admit for bowel prep for TAMIS on 11/04/24. Pt is limited historian 11/03 to developmental disability, but pt reports that she has not been experiencing abnormal bowel changes, abdominal pain, blood in her stool, early satiety, nor abnormal weight loss. Denies N/V/D. REVIEW OF SYSTEMS A 10-point review of systems was conducted and negative except for the findings noted in the HPI. Objective Temp: [36.4 ??C (97.6 ??F)-37.1 ??C (98.7 ??F)] 37.1 ??C (98.7 ??F) Heart Rate: [52-65] 65 Resp: [15-18] 15 BP: (134-153)/(65-70) 147/65 SpO2: [97 %-100 %] 97 % Physical Exam Cons: Appears stated age. Well-appearing Female in NAD. Patient is lying in bed, saturating well onroom air.. Eyes: Conjunctiva white, extra-occular movements intact. ENT: Ears/nose atraumatic, no deformity. Hearing intact. Oral/nasal mucous membranes moist. Neck: Trachea midline, no deformity. Resp: Effort normal, no accessory muscle use. Symmetric chest rise. CV: Equal chest rise, no difficulty with respiration. Patient is warm and well perfused. GI: Abdomen is soft and non-distended. Non-tender to palpation in all quadrants.. MSK: Head, neck, and extremities without defect. Extremities warm. Skin: No rashes, lesions, ulcers on exposed skin. Neuro: Alert. No focal deficits. Psych: Oriented x3. Judgement/insight appropriate. Result Review I have reviewed the patient's labs results from the last 24 hours. No results found for this or any previous visit (from the past 24 hours). Imaging Results Radiology Review: I have personally reviewed the patient's imaging results. No radiology results in the last 2 days Assessment & Plan Principal Problem: Rectal Polyps Ms. Kirsten Ronquillo is a 68 y.o. female with significant past medical history of colorectal cancer s/p LAR, developmental delay, DVT, obesity, hyperthyroidism who is a direct admit for bowel prep for transanal endoscopic microsurgery possible TAMIS on 11/04. Pt is limited historian 11/03 to developmental disability, but pt reports that she has not been experiencing abnormal bowel changes, abdominal pain, blood in her stool, early satiety, nor abnormal weight loss. Denies N/V/D. Upon exam, pt's abdomen was soft, non distended, non tender, and pt was in no acute distress. Plan is to start bowel prepin anticipation of pt's procedure on 11/04. [ ] begin bowel prep today until clear BMs [ ] Consent from HCP Attending: Dr. Ezio MD Staffing Senior Resident: Dr. Navarro Malcolm GLOBAL PLAN OF CARE: FLUIDS AND NUTRITION FLUIDS: NUTRITION: Diet, Adult Needs assistance; Liquid (Specify); Clear Liquid VTE PROPHYLAXIS Subcutaneous Heparin Pharmacologic VTE Prophylaxis contraindicated/not needed Sequential Compression Device Ordered ADVANCED CARE PLANNING Code Status: Full Code Medical Decision Maker: HCP I have discussed the plan of care with: Patient, Attending, and Resident. Med Reconciliation Status: Medication Reconciliation Status: COMPLETE: Medication reconciliation iscomplete in full using one or more reliable source(s). Signature: Palomo Elizabeth MD PGY-1 Electronic Signature Cosigned by Catracho Vidal MD MPH at 11/08/2024 11:24 AM EST Associated attestation - Catracho Vidal MD MPH - 11/08/2024 11:24 AM EST I saw and evaluated the patient. Case discussed with the resident/fellow and I agree with the findings and plan as documented in the resident's/fellow's note. documented in this encounter H&P Notes * Catracho Vidal MD MPH - 11/04/2024 7:28 AM EST H&P Update: I have reviewed the history and physical and performed a pertinent physical examination on Kirsten Ronquillo. No changes have occurred. Kirsten Ronquillo : 1955 CSN: [id number] Source Note - Qamar Bonner MD - 10/31/2024 11:56 PM EST Division of COLORECTAL SURGERY H&P HISTORY OF PRESENT ILLNESS HPI: Ms. Kirsten Ronquillo is a 68 y.o. female with significant past medical history of colorectal cancer s/p LAR, developmental delay, remote hx of DVT, obesity, hyperthyroidism who is a direct admit for bowel prep for TAMIS on 11/04/24. Pt is limited historian 11/03 to developmental disability, but pt reports that she has not been experiencing abnormal bowel changes, abdominal pain, blood in her stool, early satiety, nor abnormal weight loss. Denies N/V/D. REVIEW OF SYSTEMS A 10-point review of systems was conducted and negative except for the findings noted in the HPI. CLINICAL HISTORY The patient's medical, surgical, medication, allergy, family, and social history were reviewed and updated where appropriate. Past Medical History: Anxiety Arthritis Asthma Bipolar disorder with depression (CMS/HCC) (HCC) Cataract Chronic diarrhea Class 3 severe obesity in adult (HCC) Colon cancer (HCC) Colon polyps Constipation Deep vein thrombosis (HCC) Depression Developmental delay Intellectual disability Mood disorder (HCC) Obesity Personal history of rectal cancer Presbyopia Psychotic disorder (HCC) Rectal mass Rectal polyp Rheumatoid arthritis (HCC) S/P colonoscopy with polypectomy Strabismic amblyopia Urinary incontinence Urinary retention Venous stasis Past Surgical History: COLECTOMY HERNIA REPAIR AL COLONOSCOPY FLX DX W/COLLJ SPEC WHEN PFRMD; N/A AL COLONOSCOPY FLX DX W/COLLJ SPEC WHEN PFRMD; N/A AL COLONOSCOPY FLX DX W/COLLJ SPEC WHEN PFRMD; N/A AL COLONOSCOPY FLX DX W/COLLJ SPEC WHEN PFRMD; N/A AL COLONOSCOPY FLX DX W/COLLJ SPEC WHEN PFRMD; N/A AL COLONOSCOPY FLX DX W/COLLJ SPEC WHEN PFRMD; N/A AL COLONOSCOPY W/BIOPSY SINGLE/MULTIPLE; Left AL COLSC FLX W/RMVL OF TUMOR POLYP LESION SNARE TQ; Left AL SGMDSC FLX W/DCMPRN W/PLMT DCMPRN TUBE; N/A Home Medications: Prior to Admission medications Medication Sig Start Date End Date Taking? Authorizing Provider acetaminophen (TYLENOL) 325 mg tablet Take 2 tablets (650 mg total) by mouth every 4 hours as needed for pain. Patient not taking: Reported on 10/23/2024 08/23/19 PAYTON Martino ARIPiprazole (ABILIFY) 15 mg tablet Take 15 mg by mouth once a day. Patient not taking: Reported on 10/23/2024 Unknown Provider, ascorbic acid 500 mg tablet 500 mg. By mouth twice daily 10/09/24 Unknown Provider, aspirin 81 mg EC tablet Take 81 mg by mouth daily. 05/16/19 Unknown Provider, benztropine (COGENTIN) 0.5 mg tablet Take 1 tablet (0.5 mg total) by mouth daily. 08/24/19 PAYTON Deleon betamethasone dipropionate 0.05 % ointment 2 times a day. Apply to affected dry areas on hands twice daily as needed 10/14/24 Unknown Provider, carBAMazepine (TEGretol) 200 mg tablet TAKE 1 IN AM AND 2 TABS AT NIGHT 06/27/19 Unknown Provider, Colace 100 mg capsule Take 100 mg by mouth. 1 capsule by mouth twice daily 10/12/23 Unknown Provider, donepeziL (ARICEPT) 5 mg tablet 5 mg. 5 mg by mouth daily at bedtime 09/23/24 Unknown Provider, ferrous sulfate 325 mg (65 mg iron) EC tablet Take 325 mg by mouth. 325mg by mouth Mon-Wed-Mon in AM 10/12/23 Unknown Provider, guaiFENesin (ROBITUSSIN) 100 mg/5 mL syrup Take 200 mg by mouth 3 times a day as needed for congestion. Patient not taking: Reported on 10/23/2024 Unknown Provider, ibuprofen (MOTRIN) 400 mg tablet Take 400 mg by mouth every 6 hours as needed for pain. Patient not taking: Reported on 10/23/2024 04/08/21 Unknown Provider, imipramine (TOFRANIL) 25 mg tablet Take 1 tablet (25 mg total) by mouth daily. Patient not taking: Reported on 10/23/2024 08/24/19 PAYTON Martino imipramine (TOFRANIL) 25 mg tablet Take 3 tablets (75 mg total) by mouth nightly. Patient not taking: Reported on 10/23/2024 08/23/19 PAYTON Martino INV [id number] triamcinolone acetoniden 0.1% topical ointment Apply topically to the affected area. Thin layer topically to the affected area twice daily as needed 06/15/23 Unknown Provider, levothyroxine (SYNTHROID, LEVOTHROID) 112 mcg tablet Take 112 mcg by mouth daily. Patient not taking: Reported on 10/23/2024 04/03/24 Unknown Provider, loratadine (CLARITIN) 10 mg tablet Take 10 mg by mouth daily. 08/06/19 Unknown Provider, melatonin 3 mg tablet Take 10 mg by mouth nightly. Unknown Provider, methenamine (HIPREX) 1 gram tablet See Instructions, TAKE 1 TABLET BY MOUTH TWICE DAILY., # 90 capsule, 3 Refills, Maintenance, 06/28/24 10:07:00 [facility], 154, cm, 11/02/23 15:00:00 EST, Height, 57.6, kg, 12/01/23 8:48:00 EST, Dry Weight 06/28/24 Unknown Provider, multivitamin capsule Take 1 capsule by mouth once a day. Unknown Provider, Myrbetriq 50 mg tablet Take 50 mg by mouth once a day. Patient not taking: Reported on 10/23/2024 06/22/22 Unknown Provider, polyethylene glycol 3350 (MIRALAX) 17 gram packet Take 0.5 packets (8.5 g total) by mouth every other day. Take one half capful in the morning, every other day for regular soft stools. May increase the dosage to one full cap a day for hard stools. May decrease to two times per week for loose stools. Mix powder in 4-8oz of water, juice, coffee, or tea. 04/02/24 Kumar Kapoor DO QUEtiapine (SEROquel) 50 mg tablet Take 50 mg by mouth 3 times a day. Unknown Provider, sodium chloride 1,000 mg tablet,soluble Take 1 tablet (1 g total) by mouth 2 times a day. 08/27/24 PAYTON Martino tamsulosin (FLOMAX) 0.4 mg capsule Take 0.4 mg by mouth once a day. Unknown Provider, traZODone (DESYREL) 100 mg tablet Take 100 mg by mouth nightly. Unknown Provider, Allergies: Latex Dust [House Dust] Social History: Tobacco Use Smoking status: Never Smokeless tobacco: Never Vaping Use Vaping status: Never Used Substance Use Topics Alcohol use: Never Drug use: Never Family History: Problem Relation Age of Onset Diabetes Brother No Known Problems Father Mother Objective Temp: [36.4 ??C (97.6 ??F)] 36.4 ??C (97.6 ??F) Heart Rate: [52] 52 Resp: [18] 18 BP: (134)/(68) 134/68 SpO2: [100 %] 100 % Physical Exam Cons: Appears stated age. Well-appearing Female in NAD. Patient is lying in bed, saturating well onroom air.. Eyes: Conjunctiva white, extra-occular movements intact. ENT: Ears/nose atraumatic, no deformity. Hearing intact. Oral/nasal mucous membranes moist. Neck: Trachea midline, no deformity. Resp: Effort normal, no accessory muscle use. Symmetric chest rise. CV: Equal chest rise, no difficulty with respiration. Patient is warm and well perfused. GI: Abdomen is soft and non-distended. Non-tender to palpation in all quadrants.. MSK: Head, neck, and extremities without defect. Extremities warm. Skin: No rashes, lesions, ulcers on exposed skin. Neuro: Alert. No focal deficits. Psych: Oriented x3. Judgement/insight appropriate. Result Review I have reviewed the patient's labs results from the last 24 hours. Imaging Results Radiology Review: I have personally reviewed the patient's imaging results. Assessment & Plan Principal Problem: Rectal Polyps Ms. Kirsten Ronquillo is a 68 y.o. female with significant past medical history of colorectal cancer s/p LAR, developmental delay, DVT, obesity, hyperthyroidism who is a direct admit for bowel prep for transanal endoscopic microsurgery possible TAMIS on 11/04. Pt is limited historian 11/03 to developmental disability, but pt reports that she has not been experiencing abnormal bowel changes, abdominal pain, blood in her stool, early satiety, nor abnormal weight loss. Denies N/V/D. Upon exam, pt's abdomen was soft, non distended, non tender, and pt was in no acute distress. Plan is to continue with bowel prep in anticipation of pt's procedure on 11/04. [ ] begin bowel prep 11/01 until clear BMs [ ] f/up AM lytes daily Staffing Attending: Dr. Ezio MD Staffing Senior Resident: Dr. Navarro Malcolm GLOBAL PLAN OF CARE: FLUIDS AND NUTRITION FLUIDS: NUTRITION: Diet, Adult Full participation; Liquid (Specify); Clear Liquid VTE PROPHYLAXIS Subcutaneous Heparin Pharmacologic VTE Prophylaxis contraindicated/not needed Sequential Compression Device Ordered ADVANCED CARE PLANNING Code Status: Full Code Medical Decision Maker: HCP I have discussed the plan of care with: Patient, Attending, and Resident. Med Reconciliation Status: Medication Reconciliation Status: COMPLETE: Medication reconciliation iscomplete in full using one or more reliable source(s). I have reviewed, updated, and verified this note's content. Signature: Qamar Bonner MD PGY-1 Electronic Signature Cosigned by Catracho Vidal MD MPH at 11/04/2024 7:28 AM EST * Qamar Bonner MD - 10/31/2024 11:56 PM EST Division of COLORECTAL SURGERY H&P HISTORY OF PRESENT ILLNESS HPI: Ms. Kirsten Ronquillo is a 68 y.o. female with significant past medical history of colorectal cancer s/p LAR, developmental delay, remote hx of DVT, obesity, hyperthyroidism who is a direct admit for bowel prep for TAMIS on 11/04/24. Pt is limited historian 11/03 to developmental disability, but pt reports that she has not been experiencing abnormal bowel changes, abdominal pain, blood in her stool, early satiety, nor abnormal weight loss. Denies N/V/D. REVIEW OF SYSTEMS A 10-point review of systems was conducted and negative except for the findings noted in the HPI. CLINICAL HISTORY The patient's medical, surgical, medication, allergy, family, and social history were reviewed and updated where appropriate. Past Medical History: Anxiety Arthritis Asthma Bipolar disorder with depression (CMS/HCC) (HCC) Cataract Chronic diarrhea Class 3 severe obesity in adult (HCC) Colon cancer (HCC) Colon polyps Constipation Deep vein thrombosis (HCC) Depression Developmental delay Intellectual disability Mood disorder (HCC) Obesity Personal history of rectal cancer Presbyopia Psychotic disorder (HCC) Rectal mass Rectal polyp Rheumatoid arthritis (HCC) S/P colonoscopy with polypectomy Strabismic amblyopia Urinary incontinence Urinary retention Venous stasis Past Surgical History: COLECTOMY HERNIA REPAIR AL COLONOSCOPY FLX DX W/COLLJ SPEC WHEN PFRMD; N/A AL COLONOSCOPY FLX DX W/COLLJ SPEC WHEN PFRMD; N/A AL COLONOSCOPY FLX DX W/COLLJ SPEC WHEN PFRMD; N/A AL COLONOSCOPY FLX DX W/COLLJ SPEC WHEN PFRMD; N/A AL COLONOSCOPY FLX DX W/COLLJ SPEC WHEN PFRMD; N/A AL COLONOSCOPY FLX DX W/COLLJ SPEC WHEN PFRMD; N/A AL COLONOSCOPY W/BIOPSY SINGLE/MULTIPLE; Left AL COLSC FLX W/RMVL OF TUMOR POLYP LESION SNARE TQ; Left AL SGMDSC FLX W/DCMPRN W/PLMT DCMPRN TUBE; N/A Home Medications: Prior to Admission medications Medication Sig Start Date End Date Taking? Authorizing Provider acetaminophen (TYLENOL) 325 mg tablet Take 2 tablets (650 mg total) by mouth every 4 hours as needed for pain. Patient not taking: Reported on 10/23/2024 08/23/19 PAYTON Martino ARIPiprazole (ABILIFY) 15 mg tablet Take 15 mg by mouth once a day. Patient not taking: Reported on 10/23/2024 Unknown Provider, ascorbic acid 500 mg tablet 500 mg. By mouth twice daily 10/09/24 Unknown Provider, aspirin 81 mg EC tablet Take 81 mg by mouth daily. 05/16/19 Unknown Provider, benztropine (COGENTIN) 0.5 mg tablet Take 1 tablet (0.5 mg total) by mouth daily. 08/24/19 PATYON Deleon betamethasone dipropionate 0.05 % ointment 2 times a day. Apply to affected dry areas on hands twice daily as needed 10/14/24 Unknown Provider, carBAMazepine (TEGretol) 200 mg tablet TAKE 1 IN AM AND 2 TABS AT NIGHT 06/27/19 Unknown Provider, Colace 100 mg capsule Take 100 mg by mouth. 1 capsule by mouth twice daily 10/12/23 Unknown Provider, donepeziL (ARICEPT) 5 mg tablet 5 mg. 5 mg by mouth daily at bedtime 09/23/24 Unknown Provider, ferrous sulfate 325 mg (65 mg iron) EC tablet Take 325 mg by mouth. 325mg by mouth Mon-Mon-Mon in AM 10/12/23 Unknown Provider, guaiFENesin (ROBITUSSIN) 100 mg/5 mL syrup Take 200 mg by mouth 3 times a day as needed for congestion. Patient not taking: Reported on 10/23/2024 Unknown Provider, ibuprofen (MOTRIN) 400 mg tablet Take 400 mg by mouth every 6 hours as needed for pain. Patient not taking: Reported on 10/23/2024 04/08/21 Unknown Provider, imipramine (TOFRANIL) 25 mg tablet Take 1 tablet (25 mg total) by mouth daily. Patient not taking: Reported on 10/23/2024 08/24/19 PAYTON Martino imipramine (TOFRANIL) 25 mg tablet Take 3 tablets (75 mg total) by mouth nightly. Patient not taking: Reported on 10/23/2024 08/23/19 PAYTON Martino INV [id number] triamcinolone acetoniden 0.1% topical ointment Apply topically to the affected area. Thin layer topically to the affected area twice daily as needed 06/15/23 Unknown Provider, levothyroxine (SYNTHROID, LEVOTHROID) 112 mcg tablet Take 112 mcg by mouth daily. Patient not taking: Reported on 10/23/2024 04/03/24 Unknown Provider, loratadine (CLARITIN) 10 mg tablet Take 10 mg by mouth daily. 08/06/19 Unknown Provider, melatonin 3 mg tablet Take 10 mg by mouth nightly. Unknown Provider, methenamine (HIPREX) 1 gram tablet See Instructions, TAKE 1 TABLET BY MOUTH TWICE DAILY., # 90 capsule, 3 Refills, Maintenance, 06/28/24 10:07:00 [facility], 154, cm, 11/02/23 15:00:00 EST, Height, 57.6, kg, 12/01/23 8:48:00 EST, Dry Weight 06/28/24 Unknown Provider, multivitamin capsule Take 1 capsule by mouth once a day. Unknown Provider, Myrbetriq 50 mg tablet Take 50 mg by mouth once a day. Patient not taking: Reported on 10/23/2024 06/22/22 Unknown Provider, polyethylene glycol 3350 (MIRALAX) 17 gram packet Take 0.5 packets (8.5 g total) by mouth every other day. Take one half capful in the morning, every other day for regular soft stools. May increase the dosage to one full cap a day for hard stools. May decrease to two times per week for loose stools. Mix powder in 4-8oz of water, juice, coffee, or tea. 04/02/24 Kumar Kapoor DO QUEtiapine (SEROquel) 50 mg tablet Take 50 mg by mouth 3 times a day. Unknown Provider, sodium chloride 1,000 mg tablet,soluble Take 1 tablet (1 g total) by mouth 2 times a day. 08/27/24 PAYTON Martino tamsulosin (FLOMAX) 0.4 mg capsule Take 0.4 mg by mouth once a day. Unknown Provider, traZODone (DESYREL) 100 mg tablet Take 100 mg by mouth nightly. Unknown Provider, Allergies: Latex Dust [House Dust] Social History: Tobacco Use Smoking status: Never Smokeless tobacco: Never Vaping Use Vaping status: Never Used Substance Use Topics Alcohol use: Never Drug use: Never Family History: Problem Relation Age of Onset Diabetes Brother No Known Problems Father Mother Objective Temp: [36.4 ??C (97.6 ??F)] 36.4 ??C (97.6 ??F) Heart Rate: [52] 52 Resp: [18] 18 BP: (134)/(68) 134/68 SpO2: [100 %] 100 % Physical Exam Cons: Appears stated age. Well-appearing Female in NAD. Patient is lying in bed, saturating well onroom air.. Eyes: Conjunctiva white, extra-occular movements intact. ENT: Ears/nose atraumatic, no deformity. Hearing intact. Oral/nasal mucous membranes moist. Neck: Trachea midline, no deformity. Resp: Effort normal, no accessory muscle use. Symmetric chest rise. CV: Equal chest rise, no difficulty with respiration. Patient is warm and well perfused. GI: Abdomen is soft and non-distended. Non-tender to palpation in all quadrants.. MSK: Head, neck, and extremities without defect. Extremities warm. Skin: No rashes, lesions, ulcers on exposed skin. Neuro: Alert. No focal deficits. Psych: Oriented x3. Judgement/insight appropriate. Result Review I have reviewed the patient's labs results from the last 24 hours. Imaging Results Radiology Review: I have personally reviewed the patient's imaging results. Assessment & Plan Principal Problem: Rectal Polyps Ms. Kirsten Ronquillo is a 68 y.o. female with significant past medical history of colorectal cancer s/p LAR, developmental delay, DVT, obesity, hyperthyroidism who is a direct admit for bowel prep for transanal endoscopic microsurgery possible TAMIS on 11/04. Pt is limited historian 11/03 to developmental disability, but pt reports that she has not been experiencing abnormal bowel changes, abdominal pain, blood in her stool, early satiety, nor abnormal weight loss. Denies N/V/D. Upon exam, pt's abdomen was soft, non distended, non tender, and pt was in no acute distress. Plan is to continue with bowel prep in anticipation of pt's procedure on 11/04. [ ] begin bowel prep 11/01 until clear BMs [ ] f/up AM lytes daily Staffing Attending: Dr. Ezio MD Staffing Senior Resident: Dr. Navarro Malcolm GLOBAL PLAN OF CARE: FLUIDS AND NUTRITION FLUIDS: NUTRITION: Diet, Adult Full participation; Liquid (Specify); Clear Liquid VTE PROPHYLAXIS Subcutaneous Heparin Pharmacologic VTE Prophylaxis contraindicated/not needed Sequential Compression Device Ordered ADVANCED CARE PLANNING Code Status: Full Code Medical Decision Maker: HCP I have discussed the plan of care with: Patient, Attending, and Resident. Med Reconciliation Status: Medication Reconciliation Status: COMPLETE: Medication reconciliation iscomplete in full using one or more reliable source(s). I have reviewed, updated, and verified this note's content. Signature: Qamar Bonner MD PGY-1 Electronic Signature Cosigned by Catracho Vidal MD MPH at 11/04/2024 7:28 AM EST Associated attestation - Catracho Vidal MD MPH - 11/04/2024 7:28 AM EST I saw and evaluated the patient. Case discussed with the resident/fellow and I agree with the findings and plan as documented in the resident's/fellow's note. documented in this encounter Consult Notes * Gopal Singer RN - 11/01/2024 6:53 AM EST [facility] IV Access Nursing Consult CONSULTS Reason for Consult: New IV Access needed Relevant Physical Assessment: Current Workup or diagnosis of DVT: None Recommendations/Plan: IV therapy consulted to place IV. Patient adamantly refusing IV insertion at this time. Primary nurse notified. If patient should consent to IV insertion, please place another consult. Gopal Singer RN documented in this encounter Nursing Notes * Jessie Sesay RN - 11/04/2024 5:34 PM EST Pt is alert and oriented. Denies pain or discomfort. Vitals are stable. [facility] D/C teaching provided to both. No questions or concerns at this time. documented in this encounter Miscellaneous Notes * Hospital Course - Tino Akins MD - 11/04/2024 5:34 PM EST Patient was admitted on 10/31 for bowel prep prior to surgery. She underwent a very slow bowel prep over the next few days, she completed her bowel prep on 11/03 and on 11/04 she went to the OR for TEMS. Patient tolerated procedure well, and the polyp was excised. On postoperative check she was doing well with good tolerance to regular diet and voided afterwards. Patient was discharged on the same date. * Brief Progress Note - Tino Akins MD - 11/04/2024 2:36 PM EST Surgery Post-Operative Check SUBJECTIVE: Patient seen and examined at approximately 4 hours postoperatively. No acute events. Pain well controlled. Denied nausea, vomiting, fever, chills. OBJECTIVE: BP 120/71 (BP Location: Right arm, Patient Position: Lying) Pulse 68 Temp 36 ??C (96.8 ??F) (Temporal) Resp 16 Ht 1.575 m (5' 2.01 ) Wt 61.5 kg (135 lb 9.3 oz) LMP (LMP Unknown) SpO2 100% BMI 24.79 kg/m?? Intake/Output Summary (Last 24 hours) at 11/04/2024 1436 Last data filed at 11/04/2024 1351 Gross per 24 hour Intake 3320 ml Output 601 ml Net 2719 ml Physical Exam General: Well-nourished, no apparent distress Neuro: Alert & oriented x3 HEENT: Normocephalic, atraumatic, sclera anicteric, mucus membranes moist Cardiovascular: Warm and well perfused Respiratory: Regular work of breathing, equal chest rise bilaterally Abdominal: Nontender Skin: incisions c/d/i Extremities: moving all extremities spontaneously, no gross joint deformities ASSESSMENT + PLAN: Kirsten Ronquillo is a 69 y.o. old female with history of colorectal cancer s/p LAR, recurrent rectal serrated adenoma, developmental delay, remote hx of DVT( no AC), obesity, hyperthyroidism now s/p TEMS with Dr Vidal on 11/04. Patient is recovering appropriately from surgery and is stable overall. Patient seen at bedside with no acute complains, she has good pain control, denies, nausea and vomits. Plans on discharge today if patient continues to do well. Pain: APAP Diet: Reg IVF: HLIV LTD: PIV PPx: SQH, SCDs Abx: none Activity: AT [ ] DTV@4-6pm [ ] Likely dc 11/05 ELECTRONIC SIGNATURE Tino Akins, PGY-1 General Surgery * Plan of Care - Chip Hackett - 11/04/2024 1:37 PM EST Case Management Discharge note: Pt agrees with [facility].c back to [facility]. Pertinent Clinical and medical clearance : Pt has cleared spoken with Nurse at the home is Mariel Montano [phone] who has emailed this CMon the information needed to be signed by team to return back to home.Called Contacted Anna Joel [phone], called Anna who confirmed address and that the [facility] is one level living, ramp entry, pt ambulates with walker baseline and the they will send in staff to pick Pt up at 4:30 paperwork for MD completion today of discharge. Final Discharge Plan: Communicated with HCP/Caregiver yes Isi Donna / friend [phone] Nurse to Nurse Handoff information (if applicable): Other (including expected out of pocket costs for patient): Discharge IM : Important Message from Medicare, [facility]-[id number] (12/13/19) B Approval No.: [id number] (Expires 10/01/25) was provided to the patient with verbal explanation. Signed copy left in [employer] Scan bin to be added to the EMR. * Op Note - Catracho Vidal MD MPH - 11/04/2024 8:56 AM EST Operative Note Procedure: Transanal endoscopic microsurgery and excision of recurrent anastomotic polyp Pre-op Diagnosis * Anorectal polyp [K62.0, K62.1] Postoperative diagnosis: Recurrent benign-appearing polyp at the site of the previous low colorectal anastomosis. Surgeons and Role: * Catracho Vidal MD MPH - Primary * Donna Cuellar MD - Fellow Resident Surgeon : As above. Statement of Attending Surgeon's Presence : I was present during the entire procedure. Staff: Mud Tank Operator: Mariel Guzman RN Relief Mud Tank Operator: Mary Anne Rashid RN Scrub: Mason Kessler Anesthesia:General Estimated Blood Loss: No blood loss documented. Anesthesia Encounters Anesthesia Encounter - Episode ID [id number] Intraprocedure I/O Totals Intake acetaminophen (OFIRMEV) IV 100.00 mL sodium phosphate 7.5 mmol in 0.9% NaCl 100 mL IVPB 100.00 mL Phenylephrine 0.00 mL The total shown is the total volume documented since Anesthesia Start was filed. sodium chloride 0.9% (NS) infusion 1200.00 mL Total Intake 1400 mL Output Urine 550 mL Total Output 550 mL Net Net Volume 850 mL Specimens: ID Type Source Tests Collected by Time 1 : rectal polyp Tissue Anus TISSUE EXAM Catracho Vidal MD MPH 11/04/2024 1000 Implants: * No implants in log * Drains: *No LDA information documented for this case* Complications: None Operative Findings: Recurrent benign-appearing polyp at the site of the previous colorectal anastomosis. There is a central scar present which was unable to be excised but at least was partially biopsied with the polypectomy. Procedure Details After discussion and acceptance of all risks, benefits and alternativesthe patient was brought to the operating room. The patient was brought to the operating room. General endotracheal anesthesia was initiated. She was placed in a right lateral decubitus position given the location of the polyp along the right lateral portion of the colorectal anastomosis. She was secured in bed and the bed and all pressure points were appropriately padded. Timeout was performed confirm my presence. The distalrectal vault was thoroughly irrigated with Betadine tinged solution. A digital rectal exam was performed and the lesion was palpable again along the right lateral rectal wall at the level of the anast omosis. This was soft and mobile. The anal canal was gently dilated with a Mckeon bivalve after which the nonbeveled rigid proctoscope was inserted and secured to the Moises arm. Insufflation was initiated to 15 mmHg CO2 pressure. The polyp was easily identifiable along the right lateral aspect of the anastomosis. There was some central scarring present from the previous polypectomies that had been performed. We proceeded with marking at least a 5 mm margin circumferentially with the Bovie electrocautery. We then proceeded with careful excision of the polyp using careful traction-countertraction sharp and blunt dissection. This was done using the angled TEM grasper and the needle tip cautery. During the entire time we were able to stay in the submucosal plane at no point the we entered theperitoneal cavity. The specimen unfortunately had to be removed in piecemeal because of her portionas a portions of it particularly as we approach the central scar that were not able to be mobilizedoff of the underlying mucosa. I was able to send some of that scar off for permanent section along with the specimen. The defect once completed was completely irrigated. It was noted to be hemostaticit was closely inspected. I was unable to close the defect given the degree of surrounding fibrosisso we left it open. The insufflation was stopped and the scope was removed. She was awaken expectedtransfer recovery in stable condition. On present involved entire portion the operation. All countswere correct. Estimated Blood Loss: Minimal Drains: none Specimens: ID Type Source Tests Collected by Time 1 : rectal polyp Tissue Anus TISSUE EXAM Catracho Vidal MD MPH 11/04/2024 1000 Implants: * No implants in log * Complications: None; patient tolerated the procedure well. Disposition: To home when the patient had fully recovered. Condition: stable Attending Attestation: I was present and scrubbed for the entire procedure. Catracho Vidal MD MPH * Brief Op Note - Donna Cuellar MD - 11/04/2024 8:56 AM EST Brief Operative Note Procedure(s): TRANSANAL ENDOSCOPIC MICROSURGERY, possible TAMIS. with air seal (N/A) Pre-op Diagnosis * Anorectal polyp [K62.0, K62.1] Post-op Diagnosis: * Anorectal polyp [K62.0, K62.1] Surgeons and Role: * Catracho Vidal MD MPH - Primary * Donna Cuellar MD - Fellow Staff: Mud Tank Operator: Mariel Guzman RN Relief Mud Tank Operator: Mary Anne Rashid RN Scrub: Mason Kessler Anesthesia: Monitor Anesthesia Care Estimated Blood Loss: No blood loss documented. Anesthesia Encounters Anesthesia Encounter - Episode ID [id number] Intraprocedure I/O Totals Intake acetaminophen (OFIRMEV) IV 100.00 mL sodium phosphate 7.5 mmol in 0.9% NaCl 100 mL IVPB 100.00 mL Phenylephrine 0.00 mL The total shown is the total volume documented since Anesthesia Start was filed. sodium chloride 0.9% (NS) infusion 1000.00 mL Total Intake 1200 mL Output Urine 500 mL Total Output 500 mL Net Net Volume 700 mL Specimens: ID Type Source Tests Collected by Time 1 : rectal polyp Tissue Anus TISSUE EXAM Catracho Vidal MD [facility] 11/04/2024 1000 * No implants in log * Drains: *No LDAs have been documented for this case* Complications: None Findings: Piecemeal submucosal polypectomy with fulguration of remaining scar in R lateral decubitus positionvia TEM. Infection Present at the Time of Surgery: No Infection Present. Kirsten Ronquillo : 1955 * Plan of Care - Tigist Horta RN - 11/04/2024 1:27 AM EST Problem: Adult Inpatient Plan of Care Goal: Plan of Care Review Flowsheets (Taken 11/04/2024 0126) Plan of Care Summary: pt aox4. OOB w/ assist to bathroom/ commode. Incont of stool and urine at times. No complaints of any pain. Bowel prep completed yesterday during the day. Compliant w/ SQH. tolerating CLD well. Pt became very agitated this am, denied SQH. Plan for endoscopic preocedure today. Hourly rounding completed for safety. POC reviewed w/ pt. * Plan of Care - Vielka Heredia RN - 11/03/2024 5:41 PM EST Problem: Adult Inpatient Plan of Care Goal: Plan of Care Review Outcome: Ongoing (interventions implemented as appropriate) Flowsheets Taken 11/03/2024 0931 Plan of Care Summary: Pt A&Ox4. Garbled/slurred speech, pts baseline. VSS, on RA. Denies chest pain, SOB, nausea and vomiting. Voiding and stooling spontaneously. Using commode via x1 assist and walker. Bowel prep continued, Pt cooperative. Stool is now light brown liquid. Tolerating clear liquid diet. Plan for transanal endoscopic microsurgery tomorrow. Frequent safety checks completed. Calllight in reach. Progress: no change Taken 11/03/2024 0954 Plan of Care Reviewed With: patient * Plan of Care - Tigist Horta RN - 11/03/2024 12:37 AM EST Problem: Adult Inpatient Plan of Care Goal: Plan of Care Review Flowsheets (Taken 11/03/2024 0036) Plan of Care Summary: pt aox4. OOB w/ assist. incont of stool and urine multiple times x1 assist for incont care. Pt yelled stating she did not want to take anymore bowel prep, MD aware. Refused heparin shot, education provided. Tolerating CLD. Plan for surgery 11/04. POC reviewed w/ pt. Hourly rounding for safety completed. * Plan of Care - Su Gilmore RN - 11/02/2024 7:06 PM EST Problem: Adult Inpatient Plan of Care Goal: Plan of Care Review 11/02/2024 190 by Su Gilmore RN Outcome: Ongoing (interventions implemented as appropriate) Flowsheets (Taken 11/02/2024 190) Plan of Care Reviewed With: patient Plan of Care Summary: Cared for this patient [id number], alert and oriented, 1 assist OOB to commode. Patient doing bowel prep for planned surgery on 11/04/24. Clear liquid diet, many bowel movements - not yet clear. Continue with plan of care. Progress: no change * Plan of Care - Su Gilmore RN - 11/02/2024 2:12 PM EST Problem: Adult Inpatient Plan of Care Goal: Plan of Care Review Outcome: Ongoing (interventions implemented as appropriate) Flowsheets (Taken 11/02/2024 1401) Plan of Care Summary: Patient alert and oriented, 1 assist OOB to commode, uses walker for longer distance at baseline. Patient doing bowel prep for planned 2/3 surgery. Clear liquid diet maintained.BM's not clear yet. Continue with plan of care. Progress: no change * Plan of Care - Breann Cuevas RN - 11/02/2024 1:17 AM EST Problem: Adult Inpatient Plan of Care Goal: Plan of Care Review Outcome: Ongoing (interventions implemented as appropriate) Flowsheets (Taken 11/02/2024 0115) Plan of Care Reviewed With: patient Plan of Care Summary: Patient is alert and oriented x4. 1-assist OOB to commode, home walker used for longer distances. Bed tab alarm on. Having bowel movements. Incontinent of urine and stool at times. Safety maintained. Progress: no change * Plan of Care - Janis Archer RN - 11/01/2024 10:30 PM EST Plan of Care Summary: arrived from [place] [id number] in bed a&Ox4 no s/s any distress or pain skin intactinc lg amt of urine and upon arrival had sm formed bm on comode plan cont meds tx a/o PHR bed alarmon for safety * Plan of Care - Maureen Acevedo RN - 11/01/2024 4:45 PM EST Pt aaox4, here for rectal polyps. Denies pain at this time. Started on miralax for bowl prep, surgery scheduled for Monday. Ronald clear liquid diet, denies n/v. Can be incontinent. Refuses iv/heparin at this time, team is aware, 1 assist oob to br w/ RW. VSS, safety maintained, call light within reach. Pt transferred to [facility] report called and given to Janis CHUN. * Plan of Care - Cristela Shaw RN - 11/01/2024 10:31 AM EST Case Management Admission Note: Pertinent Clinical impacting hospitalization. PA / Level of Care Change, if applicable: H&P ( 68 y.o. female with significant past medical history of colorectal cancer s/p LAR, developmental delay, remote hx of DVT, obesity, hyperthyroidism who is a direct admit for bowel prep for TAMIS on 11/04/24. Pt is limited historian 11/03 to developmental disability, but pt reports that she hasnot been experiencing abnormal bowel changes, abdominal pain, blood in her stool, early satiety, nor abnormal weight loss. Denies N/V/D. ) Reviewed with MD: Plan is to continue with bowel prep in anticipation of pt's procedure on 11/04. [ ] begin bowel prep 11/01 until clear BMs [ ] f/up AM lytes daily Patient Assessment: Met with patient who confirmed address on record and that HCP contact is Isi Thompsno / kaila [phone] , called Isi, left message on [employer] for call back. Chart review, patient from [facility]. Called [phone], no answer. Called Contact at the home per chart review is Anna Maldonado [phone], called Anna who confirmed address and that the [facility] is one level living, ramp entry, pt ambulates with walker baseline. Nurse contact at the home isMariel Montano [phone]. The [facility] staff can provide transportation home and would bring in paperwork for MD completion on day of discharge. They can not accept weekend returns to the [facility]. Supports, HCP, Designated Caregiver, Guardian: Isi Thompson / kaila [phone] Initial Discharge Planning: TBD , anticipate return to the [facility] Choice list (with star ratings) provided / discussed, if indicated (Y or NA): * Plan of Care - Kristie Dotson RN - 11/01/2024 9:33 AM EST Patient is a/o x 4. Denies pain, nausea, vomiting, chest pain, and shortness of breath. +PP no edema present. Lungs are clear bilaterally on room air respirations even and steady. Tolerating diet well. Skin is intact. Incontinence care completed as needed. Patient ambulates with 1 assist with walker. Bowel prep started. Patient is receiving treatments as prescribed. Bed in lowest, locked position. Bed alarm on. Call light in reach. * Significant Event - Kristie Dotson RN - 11/01/2024 7:23 AM EST IV was not present on assessment * Plan of Care - Nhung Hanks RN - 11/01/2024 6:55 AM EST Pt A&O with developmental delay, came in as a direct admit from [facility] for bowel prep for TAMIS on Monday11/04/24. No c/o pain/discomfort overnight, incontinent care provided, refused IV placement and heparin, provider notified. Call light within reach safety maintained. documented in this encounter Plan of Treatment Upcoming Encounters Date Type Department Care Team (Latest Contact Info) Description 05/02/2025 7:15 AM EDT Hospital Encounter [facility] Operating Room [address] [place] [address] Catracho Vidal MD MPH [address] [place] [address] 05/05/2025 7:15 AM EDT - 05/05/2025 8:20 AM EDT Surgery [facility] Operating Room [address] [place] [address] Catracho Vidal MD MPH [address] [place] [address] Colonoscopy Screening, High Risk with Possible Moderate Sedation [66134 (CPT??)] Scheduled Procedures Name Priority Associated Diagnoses Date/Ti me COLONOSCOPY SCREENING, HIGH RISK WITH POSSIBLE MODERATE SEDATION Colorectal cancer (HCC) 05/05/2025 7:15 AM EDT documented as of this encounter Procedures * Due to [place] MEDOP law, this organization might not be sharing negative HIV tests. Procedure Name Priority Date/Time Associated Diagnosis Comments TISSUE EXAM Routine 11/04/2024 10:00 AM EST Anorectal polyp AL COSME HARDIN,GEN ANESTHESIA 11/04/2024 7:59 AM EST Anorectal polyp Special Needs TEM/Tamis?needs admission to hospital 5 days before surgery. please schedule surgery in Sep 2024 PHOSPHORUS Routine 11/03/2024 12:56 AM EST MAGNESIUM Routine 11/03/2024 12:56 AM EST BASIC METABOLIC PANEL Routine 11/03/2024 12:56 AM EST PHOSPHORUS Routine 11/02/2024 10:25 AM EST MAGNESIUM Routine 11/02/2024 10:25 AM EST BASIC METABOLIC PANEL Routine 11/02/2024 10:25 AM EST documented in this encounter Results * Due to [place] MEDOP law, this organization might not be sharing negative HIV tests. 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 - See note Note: The fragmented nature of specimen precludes the evaluation of margin status. [facility] 11/05/2024 5:18 PM EST [facility] Clinical History Pre-op diagnosis: Anorectal polyp [K62.0, K62.1] [facility] MANUAL 11/05/2024 5:18 PM EST [facility] Gross Description 1. Anus The specimen is received fresh previously unattached from a foam device labeled with the patient's name, date of , medical record number and rectal polyp and consists of 7 unoriented markedly cauterized mucosal tissue fragments ranging in size from 0.4 x 0.3 x 0.2 cm to 1.0 x 1.0 x 0.3 cm. Each fragment is inked sectioned and the specimen is entirely submitted as follows. 1A-1 fragment trisected 1B-1 fragment bisected 1C-1 fragment quadrisected 1D-1 fragment trisected 1E-1F-1 fragment quadrisected 1G-1 fragment bisected 1H-smallest fragmented bisected [facility] MANUAL 11/05/2024 5:18 PM EST [facility] Gross Description User Grossing complete by Tootie Somers on 11/04/2024 3:24 PM [facility] MANUAL 11/05/2024 5:18 PM EST [facility] Embedded Images [facility] MANUAL 11/05/2024 5:18 PM EST [facility] Resulting Agency Case was signed out at [facility], Department of Pathology, [employer] 3 CLIA [id number] [facility] MANUAL 11/05/2024 5:18 PM EST [facility] Report Header Surgical Pathology Report ? Case: [id number] ? Authorizing Provider: ??Catracho Vidal MD MPH ?Collected: ? 11/04/2024 1000 ? Ordering Location: ? [facility] ? Received: ?11/04/2024 1158 ? [facility] ? Operating Room ? Pathologist: ? Mirella Cai MD ? Specimen: ?Anus, rectal polyp ? 11/05/2024 5:18 PM EST [facility] Tissue Anal structure / Unknown 11/04/2024 10:00 AM EST 11/04/2024 11:58 AM EST Comment:Pre-op diagnosis: Anorectal polyp [K62.0, K62.1] us Catracho Vidal MD MPH LAB PATHOLOGY/CYTOLOGY ORDERA BLES Final Result [facility]ENTERSpeechViveOH[facility] [address] [place] [address], [facility] [address] [place] [address], [place] * Phosphorus (11/03/2024 12:56 AM EST) Phosphorus 2.7 2.5 - 4.5 mg/dL 11/03/2024 2:02 AM EST [facility] Blood Structure of peripheral vein / Unknown Venipuncture / Unknown 11/03/2024 12:56 AM EST 11/03/2024 1:26 AM EST Catracho Vidal MD MPH LAB BLOOD ORDERABLES Final Re sult Performing Organization Address City/[facility]/ZIP Co de Phone Number [facility] [address] [place] [id number], [place] * Magnesium (11/03/2024 12:56 AM EST) MG 2.3 1.6 - 2.4 mg/dL 11/03/2024 2:02 AM EST [facility] Blood Structure of peripheral vein / Unknown Venipuncture / Unknown 11/03/2024 12:56 AM EST 11/03/2024 1:26 AM EST Catracho Vidal MD MPH LAB BLOOD ORDERABLES Final Re sult Performing Organization Address City/[facility]/ZIP Co de Phone Number [facility] [address] [place] [phone], [place] * Basic Metabolic Panel (11/03/2024 12:56 AM EST) NA 138 135 - 145 mmol/L 11/03/2024 2:02 AM EST [facility] K 3.9 3.5 - 5.3 mmol/L 11/03/2024 2:02 AM EST [facility] Cl 104 98 - 107 mmol/L 11/03/2024 2:02 AM EST [facility] CO2 24 22 - 32 mmol/L 11/03/2024 2:02 AM EST [facility] BUN 13 7 - 23 mg/dL 11/03/2024 2:02 AM EST [facility] Creatinine 0.70 0.50 - 1.20 mg/dL 11/03/2024 2:02 AM EST [facility] Glucose 94 65 - 99 mg/dL 11/03/2024 2:02 AM EST [facility] Calcium 8.7 8.6 - 10.5 mg/dL 11/03/2024 2:02 AM EST [facility] Anion Gap 10 5 - 15 11/03/2024 2:02 AM EST [facility] eGFR >90 >=60 mL/min/1. 73m2 11/03/2024 2:02 AM EST [facility] Comment:The estimated glomer ular filtration rate (eGFR) is calculated using a new formula developed by the NKF-ASN task force to eliminate race-based correction factors. The new formula uses serum/plasma creatinine, age, and gender to determine eGFR. A value below 60mls/min might indicate kidney disease and will be flagged. For additional information, see Geller et al, Am J Kidney Dis. 2021;79(2):268- 288, A Unifying Approach for GFR estimation: Recommendations of the NKF-ASN Task Force on Reassessing the Inclusion of Race in Diagnosing Kidney Disease . Blood Structure of peripheral vein / Unknown Venipuncture / Unknown 11/03/2024 12:56 AM EST 11/03/2024 1:26 AM EST us Catracho Vidal MD MPH LAB BLOOD ORDERABLES Final Re sult [facility] [address] [place] [address], * Phosphorus (11/02/2024 10:25 AM EST) Phosphorus 2.5 2.5 - 4.5 mg/dL 11/02/2024 11:03 AM EST [facility] Blood Structure of peripheral vein / Unknown Venipuncture / Unknown 11/02/2024 10:25 AM EST 11/02/2024 10:28 AM EST Catracho Vidal MD MPH LAB BLOOD ORDERABLES Final Re sult Performing Organization Address [facility] Co de Phone Number [facility] [address] [place] [address], * Magnesium (11/02/2024 10:25 AM EST) MG 2.4 1.6 - 2.4 mg/dL 11/02/2024 11:03 AM EST [facility] Blood Structure of peripheral vein / Unknown Venipuncture / Unknown 11/02/2024 10:25 AM EST 11/02/2024 10:28 AM EST Catracho Vidal MD MPH LAB BLOOD ORDERABLES Final Re sult Performing Organization Address [facility] Co de Phone Number [facility] [address] [place] [address], * Basic Metabolic Panel (11/02/2024 10:25 AM EST) NA 136 135 - 145 mmol/L 11/02/2024 11:03 AM EST [facility] K 3.9 3.5 - 5.3 mmol/L 11/02/2024 11:03 AM EST [facility] Cl 100 98 - 107 mmol/L 11/02/2024 11:03 AM EST [facility] CO2 27 22 - 32 mmol/L 11/02/2024 11:03 AM EST [facility] BUN 20 7 - 23 mg/dL 11/02/2024 11:03 AM EST [facility] Creatinine 0.91 0.50 - 1.20 mg/dL 11/02/2024 11:03 AM EST [facility] Glucose 95 65 - 99 mg/dL 11/02/2024 11:03 AM EST [facility] Calcium 8.9 8.6 - 10.5 mg/dL 11/02/2024 11:03 AM [facility] Anion Gap 9 5 - 15 11/02/2024 11:03 AM [facility] eGFR 68 >=60 mL/min/1. 73m2 11/02/2024 11:03 AM [facility] Comment:The estimated glomer ular filtration rate (eGFR) is calculated using a new formula developed by the NKF-ASN task force to eliminate race-based correction factors. The new formula uses serum/plasma creatinine, age, and gender to determine eGFR. A value below 60mls/min might indicate kidney disease and will be flagged. For additional information, see Yimi et al, Am J Kidney Dis. 2021;79(2):268- 288, A Unifying Approach for GFR estimation: Recommendations of the NKF-ASN Task Force on Reassessing the Inclusion of Race in Diagnosing Kidney Disease . Blood Structure of peripheral vein / Unknown Venipuncture / Unknown 11/02/2024 10:25 AM EST 11/02/2024 10:28 AM EST us Catracho Vidal MD MPH LAB BLOOD ORDERABLES Final Re sult [facility] [address] [place] [address], documented in this encounter Visit Diagnoses Diagnosis Rectal Polyps- Primary Anorectal polyp Colorectal cancer (HCC) Malignant neoplasm of colon, unspecified site documented in this encounter Admitting Diagnoses Diagnosis Anorectal polyp documented in this encounter Administered Medications Inactive Administered Medications - up to 3 most recent administrations Medication Order MAR Action Action Date Dose Rate Site acetaminophen (TYLENOL) tablet 650 mg 650 mg, oral, Every 4 hours PRN, Mild pain or 1-3 (on the numeric pain scale), Moderate pain or 4-6 (on the numeric pain scale), Severe pain or 7-10 (on the numeric pain scale), Starting on Bernadine 1/30/25 at 2320, Until Mon11/04/24 at 1935, To be given in conjunction with other pain medications if ordered as part of multi-modal therapy. Given 11/04/2024 5:19 AM EST 650 mg Given 11/03/2024 12:42 PM EST 650 mg ARIPiprazole (ABILIFY) tablet 15 mg 15 mg, oral, Daily, First dose on Mon11/01/24 at 0900, Until Discontinued Given 11/03/2024 8:25 AM EST 15 mg Given 11/02/2024 8:21 AM EST 15 mg Given 11/01/2024 8:03 AM EST 15 mg benztropine (COGENTIN) tablet 0.5 mg 0.5 mg, oral, 2 times daily, First dose on Mon11/01/24 at 0900, Until Discontinued Given 11/03/2024 4:00 PM EST 0.5 mg Given 11/03/2024 8:25 AM EST 0.5 mg Given 11/02/2024 5:01 PM EST 0.5 mg carBAMazepine (TEGretol) tablet 200 mg 200 mg, oral, Every 8 hours scheduled, First dose on Mon11/01/24 at 0600, Until Discontinued, Hazardous Medication ? Reproductive Risk. Use PPE when handling. Given 11/04/2024 2:[address] 200 mg Given 11/04/2024 5:15 AM EST 200 mg Given 11/03/2024 9:05 PM EST 200 mg heparin subcutaneous injection 5,000 Units 5,000 Units, subcutaneous, Every 8 hours scheduled, First dose on Mon10/31/24 at 2345, Until Discontinued Given 11/04/2024 2:15 PM EST 5,000 Units Left Lower Abdomen Given 11/03/2024 8:59 PM EST 5,000 Units R ight Lower Abdomen Given 11/03/2024 12:42 PM EST 5,000 Units Left Lower Abdomen levothyroxine (SYNTHROID, LEVOTHROID) tablet 112 mcg 112 mcg, oral, Daily, First dose on Mon11/01/24 at 0600, Until Discontinued Given 11/04/2024 5:15 AM EST 112 mcg Given 11/03/2024 5:38 AM EST 112 mcg Given 11/02/2024 5:16 AM EST 112 mcg loratadine (CLARITIN) tablet 10 mg 10 mg, oral, Daily, First dose on Mon11/01/24 at 0900, Until Discontinued Given 11/03/2024 8:26 AM EST 10 mg Given 11/02/2024 8:21 AM EST 10 mg Given 11/01/2024 8:04 AM EST 10 mg melatonin tablet 6 mg 6 mg, oral, Nightly PRN, sleep, Starting on Mon11/01/24 at 0044, Until Mon11/04/24 at 1935 mineral oil, light sterile (MURI-LUBE) As needed, Starting on Mon11/04/24 at 0748, Until Mon11/04/24 at 1022, Intra-op Given 11/04/2024 7:48 AM EST 20 mL Rectum mirabegron (MYRBETRIQ) tablet 50 mg 50 mg, oral, Daily, First dose on Mon11/01/24 at 0900, Until Discontinued, Swallow whole with water; do not chew, divide, or crush. Given 11/03/2024 8:25 AM EST 50 mg Given 11/02/2024 8:21 AM EST 50 mg Given 11/01/2024 8:03 AM EST 50 mg OLANZapine (ZyPREXA) tablet 5 mg 5 mg, oral, Nightly, First dose on Mon11/01/24 at 0100, Until Discontinued Given 11/03/2024 9:00 PM EST 5 mg Given 11/02/2024 9:47 PM EST 5 mg Given 11/01/2024 8:51 PM EST 5 mg sodium chloride 0.9% flush 2.5-10 mL 2.5-10 mL, intravenous, See admin instructions, Starting on Mon10/31/24 at 2319, Until Mon11/04/24 at 1935, Flush each lumen with a pulsatile motion with a minimum of 2.5 mL before and after use. Please note which lumen(s) have been flushed in comments section. sodium chloride 0.9% flush 2.5-10 mL 2.5-10 mL, intravenous, Every 12 hours scheduled, First dose on Mon10/31/24 at 2330, Until Discontinued, Flush each lumen with a pulsatile motion with a minimum of 2.5 mL every 12 hours. Please note which lumen(s) have been flushed in comments section. sodium chloride 0.9% flush 3-10 mL 3-10 mL, intravenous, PRN Flush, line care, Flush peripheral line with a minimum of 3 mL, before and after use or every 12 hours., Starting on Bernadine 10/31/24 at 2321, Until 11/04/24 at 1935 traZODone (DESYREL) tablet 100 mg 100 mg, oral, Nightly, First dose on Mon11/01/24 at 0100, Until Discontinued Given 11/03/2024 8:59 PM EST 100 mg Given 11/02/2024 9:47 PM EST 100 mg Given 11/01/2024 8:51 PM EST 100 mg documented in this encounter Active and Recently Administered Medications Times are shown in EST. Scheduled Medication Order 11/02/2024 11/03/2024 11/04/2024 ARIPiprazole (ABILIFY) tablet 15 mg 15 mg, oral, Daily, First dose on Mon11/01/24 at 0900, Until Discontinued 0821 (Given - Provider: Su Gilmore RN) 0825 (Given - Provider: Vielka Heredia RN) 0701 (MAR Hold - Provider: Automatic Transfer Provider - Reason: Procedure/Surgery)09 00 (Dose Auto Held - Provider: Automatic Transfer Provider)1120 ([facility] Unhold - Provider: Automatic Transfer Provider) benztropine (COGENTIN) tablet 0.5 mg 0.5 mg, oral, 2 times daily, First dose on Mon11/01/24 at 0900, Until Discontinued 0822 (Given - Provider: Su Gilmore RN)1701 (Given - Provider: Su Gilmore RN) 0825 (Given - Provider: Vielka Heredia RN)1600 (Given - Provider: Vielka Heredia RN) 0701 (MAR Hold - Provider: Automatic Transfer Provider - Reason: Procedure/Surgery)09 00 (Dose Auto Held - Provider: Automatic Transfer Provider)1120 (MAR Unhold - Provider: Automatic Transfer Provider)1700 (Due) bisacodyL (DULCOLAX) EC tablet 20 mg (COMPLETED) 20 mg, oral, Once, On 11/02/24 at 1015, 1 dose, Do not crush. 1141 (Given - Provider: Su J [place], RN) carBAMazepine (TEGretol) tablet 200 mg 200 mg, oral, Every 8 hours scheduled, First dose on Mon11/01/24 at 0600, Until Discontinued, Hazardous Medication ? Reproductive Risk. Use PPE when handling. 0516 (Given - Provider: Breann Cuevas RN)1452 (Pump Refill - Provider: Su Gilmore, LAY)2147 (Given - Provider: Tigist Horta RN) 0538 (Given - Provider: Tigist Horta RN)1243 (Given - Provider: Vielka Heredia RN)210 (Given - Provider: Tigist Horta RN) 0515 (Given - Provider: Tigist Horta RN)07 (NOV Hold - Provider: Automatic Transfer Provider - Reason: Procedure/Surgery)11 (NOV Unhold - Provider: Automatic Transfer Provider)1415 (Given - Provider: Jessie Sesay RN) heparin subcutaneous injection 5,000 Units 5,000 Units, subcutaneous, Every 8 hours scheduled, First dose on Mon10/31/24 at 2345, Until Discontinued 0600 (Not Given - Provider: Breann Cuevas RN - Reason: Patient/family refused)1400 (Not Given - Provider: Su Gilmore RN - Reason: Patient/family refused)2200 (Not Given - Provider: Tigist Horta RN - Reason: Patient/family refused) 0600 (Not Given - Provider: Tigist Horta RN - Reason: Patient/family refused)1242 (Given - Provider: Vielka Heredia RN)205 (Given - Provider: Tigist Horta RN) 0600 (Not Given - Provider: Tigist Horta RN - Reason: Other - See Comment - Comment: pt refused)0701 (NOV Hold - Provider: Automatic Transfer Provider - Reason: Procedure/Surgery)11 20 (NOV Unhold - Provider: Automatic Transfer Provider)1415 (Given - Provider: Jessie Sesay RN) levothyroxine (SYNTHROID, LEVOTHROID) tablet 112 mcg 112 mcg, oral, Daily, First dose on Mon11/01/24 at 0600, Until Discontinued 0516 (Given - Provider: Breann Cuevas RN) 0538 (Given - Provider: Tigist Horta RN) 0515 (Given - Provider: Tigist Horta RN)0701 ([facility] Hold - Provider: Automatic Transfer Provider - Reason: Procedure/Surgery)11 20 ([facility] Unhold - Provider: Automatic Transfer Provider) loratadine (CLARITIN) tablet 10 mg 10 mg, oral, Daily, First dose on Mon11/01/24 at 0900, Until Discontinued 0821 (Given - Provider: Su Gilmore, LAY) 0826 (Given - Provider: Vielka Heredia, LAY) 07 ([facility] Hold - Provider: Automatic Transfer Provider - Reason: Procedure/Surgery)09 00 (Dose Auto Held - Provider: Automatic Transfer Provider)1120 ([facility] Unhold - Provider: Automatic Transfer Provider) mirabegron (MYRBETRIQ) tablet 50 mg 50 mg, oral, Daily, First dose on Mon11/01/24 at 0900, Until Discontinued, Swallow whole with water; do not chew, divide, or crush. 0821 (Given - Provider: Su Gilmore RN) 0825 (Given - Provider: Vielka Heredia RN) 07 ([facility] Hold - Provider: Automatic Transfer Provider - Reason: Procedure/Surgery)09 00 (Dose Auto Held - Provider: Automatic Transfer Provider)1120 (MAR Unhold - Provider: Automatic Transfer Provider) OLANZapine (ZyPREXA) tablet 5 mg 5 mg, oral, Nightly, First dose on Mon11/01/24 at 0100, Until Discontinued 2146 (Given - Provider: Tigist Horta RN) 2100 (Given - Provider: Tigist Horta RN) 0701 (MAR Hold - Provider: Automatic Transfer Provider - Reason: Procedure/Surgery)11 20 ([facility] Unhold - Provider: Automatic Transfer Provider) polyethylene glycol 3350 (MIRALAX) packet 238 g (COMPLETED) 238 g, oral, Once, On 11/02/24 at 1130, 1 dose, Mix all 14 packets with 64 oz of Gatorade or other clear fluid. Dissolve each 17 g packet in 4-8 ounces of water or juice prior to administration. 1143 (Given - Provider: Su Gilmore RN) polyethylene glycol 3350 (MIRALAX) packet 238 g (COMPLETED) 238 g, oral, Once, On 11/03/24 at 0915, 1 dose, Mix all 14 packets with 64 oz of Gatorade or other clear fluid. Dissolve each 17 g packet in 4-8 ounces of water or juice prior to administration. 0924 (Given - Provider: Vielka Heredia RN) potassium phosphate (K-PHOS) tablet 1,000 mg (COMPLETED) 1,000 mg, oral, Once, On Mon11/03/24 at 0700, 1 dose, Dissolve tablets in 6-8 oz of water. 0825 (Given - Provider: Vielka Heredia RN) sodium chloride 0.9% flush 2.5-10 mL(Linked Group 1) 2.5-10 mL, intravenous, See admin instructions, Starting on Bernadine 10/31/24 at 2319, Until Mon11/04/24 at 1935, Flush each lumen with a pulsatile motion with a minimum of 2.5 mL before and after use. Please note which lumen(s) have been flushed in comments section. 07 (NOV Hold - Provider: Automatic Transfer Provider - Reason: Procedure/Surgery)10 29 (NOV Unhold - Provider: Farzana Cunningham RN) sodium chloride 0.9% flush 2.5-10 mL(Linked Group 1) 2.5-10 mL, intravenous, Every 12 hours scheduled, First dose on Bernadine 10/31/24 at 2330, Until Discontinued, Flush each lumen with a pulsatile motion with a minimum of 2.5 mL every 12 hours. Please note which lumen(s) have been flushed in comments section. 0900 (Not Given - Provider: Su Gilmore RN - Reason: IV access not available)2241 (Not Given - Provider: Tigist Horta RN - Reason: IV access not available) 0900 (Not Given - Provider: Vielka Heredia RN - Reason: IV access not available)2100 (Not Given - Provider: Tigist Horta RN - Reason: Other - See Comment - Comment: no Iv placed md aware) 0701 (MAR Hold - Provider: Automatic Transfer Provider - Reason: Procedure/Surgery)09 00 (Dose Auto Held - Provider: Automatic Transfer Provider)1029 (NOV Unhold - Provider: Farzana Cunningham RN) sodium phosphate 7.5 mmol in 0.9% NaCl 100 mL IVPB 7.5 mmol, intravenous, at 16.7 mL/hr, Administer over 6 Hours, Once, On Mon11/04/24 at 0415, 1 dose, Room Temperature. 0415 (Not Given - Provider: Tigist Horta RN - Reason: Other - See Comment - Comment: No IV billie LORENZ aware)07 (NOV Hold - Provider: Automatic Transfer Provider - Reason: Procedure/Surgery)10 30 (NOV Unhold - Provider: Farzana Cunningham, LAY) sodium phosphate 7.5 mmol in 0.9% NaCl 100 mL IVPB (COMPLETED) 7.5 mmol, intravenous, at 16.7 mL/hr, Administer over 6 Hours, Once, On Mon11/04/24 at 0730, 1 dose, Admission, Room Temperature. 0837 (New Bag/Syringe - Provider: Flynn Perrin CRNA) traZODone (DESYREL) tablet 100 mg 100 mg, oral, Nightly, First dose on Mon11/01/24 at 0100, Until Discontinued 2146 (Given - Provider: Tigist Horta, LAY) 2058 (Given - Provider: Tigist Horat RN) 07 (NOV Hold - Provider: Automatic Transfer Provider - Reason: Procedure/Surgery)11 20 (NOV Unhold - Provider: Automatic Transfer Provider) PRN Medication Order 11/02/2024 11/03/2024 11/04/2024 acetaminophen (TYLENOL) tablet 650 mg 650 mg, oral, Every 4 hours PRN, Mild pain or 1-3 (on the numeric pain scale), Moderate pain or 4-6 (on the numeric pain scale), Severe pain or 7-10 (on the numeric pain scale), Starting on Mon10/31/24 at 2320, Until Mon11/04/24 at 1935, To be given in conjunction with other pain medications if ordered as part of multi-modal therapy. 1242 (Given - Provider: Vielka Heredia RN) 0519 (Given - Provider: Tigist Horta, LAY)07 (NOV Hold - Provider: Automatic Transfer Provider - Reason: Procedure/Surgery)1030 (NOV Unhold - Provider: Farzana Cunningham, LAY) melatonin tablet 6 mg 6 mg, oral, Nightly PRN, sleep, Starting on Mon11/01/24 at 0044, Until Mon11/04/24 at 1935 0701 (NOV Hold - Provider: Automatic Transfer Provider - Reason: Procedure/Surgery)1120 (NOV Unhold - Provider: Automatic Transfer Provider) mineral oil, light sterile (MURI-LUBE) (CANCELED) As needed, Starting on Mon11/04/24 at 0748, Until Mon11/04/24 at 1022, Intra-op 0748 (Given - Provid er: Catracho Vidal MD MPH - Comment: used to lubricate instruments) sodium chloride 0.9% flush 3-10 mL 3-10 mL, intravenous, PRN Flush, line care, Flush peripheral line with a minimum of 3 mL, before and after use or every 12 hours., Starting on Bernadine 10/31/24 at 2321, Until Mon11/04/24 at 1935 0701 (NOV Hold - Provider: Automatic Transfer Provider - Reason: Procedure/Surgery)1030 (NOV Unhold - Provider: Farzana Cunningham RN) Linked Groups Order Group 1: IV Peripheral Line Care (CANCELED) Until discontinued, Starting on Bernadine 10/31/24 at 2320, Until Specified, Insert/Replace: 96 hours for non-flexion, sterile IVs, 48 hours for flexion IVs, and 24 hours for non-sterile field IVs, Blood Draw: With insertion only And sodium chloride 0.9% flush 2.5-10 mLJump to med 2.5-10 mL, intravenous, See admin instructions, Starting on Bernadine 10/31/24 at 2319, Until Mon11/04/24 at 1935, Flush each lumen with a pulsatile motion with a minimum of 2.5 mL before and after use. Please note which lumen(s) have been flushed in comments section. And sodium chloride 0.9% flush 2.5-10 mLJump to med 2.5-10 mL, intravenous, Every 12 hours scheduled, First dose on Bernadine 10/31/24 at 2330, Until Discontinued, Flush each lumen with a pulsatile motion with a minimum of 2.5 mL every 12 hours. Please note which lumen(s) have been flushed in comments section. 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
--- OUTSIDE RECORDS SUMMARY | 2024-11-28 15:37 | XMS_ITS | Clinical Summary ---
Author Organization [facility] Address [address] [place] [address] Phone Care Team Providers Care Co Pilot Name Role Phone Sher Patrick MD Primary Care Provider [phone] Allergies Active Allergy Reactions Criticality Noted Date Comments Dust Mite Extract Other (see comments) Low 08/18/20 19 Latex Hives,Rash Low 12/09/2020 Medications loratadine (CLARITIN) 10 MG tablet Take 10 mg by mouth 1 (one) time each day 3 Active aspirin (ST CHEIKH) 81 MG EC tablet Take 81 mg by mouth 1 (one) time each day 9 Active ferrous sulfate 325 (65 Fe) MG EC tablet Take 325 mg by mouth 4 Active docusate sodium (COLACE) 50 MG capsule Take by mouth 2 (two) times a day Active Multiple Vitamin (Multivitamin) tablet 4 Active tamsulosin (FLOMAX) 0.4 MG 24 hr capsule Refills 0, Maintenance, 06/28/24 10:11:00 EDT, Partial fill upon patient request if the prescription is for a schedule II opioid drug. 4 Active acetaminophen (TYLENOL) 500 MG tablet Take 500 mg by mouth 0 Active guaiFENesin (ROBITUSSIN) 100 MG/5ML liquid Take 200 mg by mouth 3 (three) times a day if needed for cough Active ibuprofen (ADVIL,MOTRIN) 400 MG tablet Take 400 mg by mouth every 6 (six) hours if needed for mild pain Active melatonin 3 MG tablet Take 5 mg by mouth Active Melatonin 5 MG tablet 4 Active donepezil (ARICEPT) 5 MG tablet 4 Active QUEtiapine (SEROquel) 50 MG tablet Take 50 mg by mouth every night Active traZODone (DESYREL) 100 MG tablet Take 100 mg by mouth every night Active levothyroxine (SYNTHROID, LEVOTHROID) 200 MCG tablet 4 Active Gemtesa 75 MG tablet 0 Refills, Maintenance, 06/28/24 10:11:00 EDT, Partial fill upon patient request if the prescription is for a schedule II opioid drug. 4 Active clotrimazole (LOTRIMIN) 1 % cream Apply 1 application. topically 4 Active Active Problems Problem Noted Date Diagnosed Date Acute kidney failure Anemia At high risk for fall Change in mental status Chronic renal insufficiency Hypothyroidism Incontinence Partial obstruction of small bowel Seizure disorder Encounters Date Type Department Care Team Description 10/05/2024 Telephone [facility] [address] [place] [address] Puneet Sesay MD 09/26/2024 3:15 PM EST Office Visit [facility] [address] [place] [address] Puneet Sesay MD Hypo-osmolality and hyponatremia (Primary Dx) from Last 3 Months Social History Tobacco Use Types Packs/Day Years Used Date Smoking Tobacco: Never Assessed Comments Unknown Sex and Gender Information Value Date Recorded Sex Assigned at Not on file Legal Sex Female 2:19 PM EST Gender Identity Not on file Sexual Orientation Not on file Last Filed Vital Signs Vital Sign Reading Time Taken Comments Blood Pressure 120/80 09/26/2024 3:42 PM EST Pulse - - Temperature - - Respiratory Rate - - Oxygen Saturation - - Inhaled Oxygen Concentration - - Weight 60.9 kg (134 lb 3.2 oz) 09/26/2024 3:42 P M EST Height - - Body Mass Index - - Plan of Treatment Health Maintenance Due Date Last Done Comments Breast Cancer Screening 1954 Pneumococcal Vaccine: 65+ Ye ars (1 of 2 - PCV) 1960 Colorectal Cancer Screening: Annual FOBT 2003 Colorectal Cancer Screening: Colonoscopy 2003 Colorectal Cancer Screening: Sigmoidoscopy 2003 Influenza Vaccine (#1) 2024 07/05/2021 Hepatitis B Vaccine Aged Out No longe r eligible based on patient's age to complete this topic Insurance MEDICARE MEDICAID [place] Care Teams Co Pilot Relationship Specialty Start Date End Date Sher Patrick MD [id number] [place], [place] PCP - General Internal Medicine 09/17/24
--- OUTSIDE RECORDS SUMMARY | 2024-11-28 15:37 | XMS_ITS | Encounter Summary ---
Author Organization [facility] Address [address] [place] [address] Care Team Providers Care Clerical Office Name Role Phone Sher Patrick Primary Care Provider [phone] Encounter Details Date Type Department Care Team (Late st Contact Info) Description 11/15/2024 Orders Only [facility] Colorectal Surgery [address] [place] [id number] Staff Analyst: Kori Mike RN Colorectal cancer (HCC) (Primary Dx) Social History Tobacco Use Types Packs/Day Years Used Date Smoking Tobacco: Never Smokeless Tobacco: Never Alcohol Use Standard Drinks/Week Comments Never 0 (1 standard drink = 0.6 oz pur e alcohol) [facility] Utilities Answer Date Recorded In the past 12 months has th e electric, gas, oil, or water company threatened to shut off services in your [...] on file documented as of this encounter Progress Notes * Kori Wilson RN - 11/15/2024 9:[address] Vidal- patient will need repeat scope in 6 months. Order entered for OR colonoscopy due 05/04/2025. Will need to be admitted 5 days prior for bowel prep. documented in this encounter Plan of Treatment Upcoming Encounters Date Type Department Care Team (Latest Contact Info) Description 05/02/2025 7:15 AM EDT Hospital Encounter [facility] Operating Room [address] [place] [id number] Catracho Vidal MD MPH [address] [place] [phone] 05/05/2025 7:15 AM EDT - 05/05/2025 8:20 AM EDT Surgery [facility] Operating Room [address] [place] [id number] Catracho Vidal MD MPH [address] [place] [id number] Colonoscopy Screening, High Risk with Possible Moderate Sedation [93019 (CPT??)] Scheduled Procedures Name Priority Associated Diagnoses Date/Ti me COLONOSCOPY SCREENING, HIGH RISK WITH POSSIBLE MODERATE SEDATION Colorectal cancer (HCC) 05/05/2025 7:15 AM EDT documented as of this encounter Visit Diagnoses Diagnosis Colorectal cancer (HCC)- Primary Malignant neoplasm of colon, unspecified site Colorectal cancer (HCC) Malignant neoplasm of colon, unspecified site documented in this encounter Additional Health Concerns Infection Onset Date Last Indicated Resolved Time 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
--- OUTSIDE RECORDS SUMMARY | 2024-11-28 15:37 | XMS_ITS | Encounter Summary ---
Author Organization [facility] Address [address] [place] [address] Care Team Providers Care Shingle Bolt Cutter Name Role Phone Sher Patrick Primary Care Provider [phone] Encounter Details Date Type Department Care Team (Late st Contact Info) Description 11/14/2024 Telephone [facility] Colorectal Surgery [address] [place] [phone] President [place]: Kori Mike RN Social History Tobacco Use Types Packs/Day Years Used Date Smoking Tobacco: Never Smokeless Tobacco: Never Alcohol Use Standard Drinks/Week Comments Never 0 (1 standard drink = 0.6 oz pur e alcohol) [facility] Utilities Answer Date Recorded In the [...] encounter Miscellaneous Notes * Telephone Encounter - Kori Wilson RN - 11/14/2024 10:21 AM EST POST-DISCHARGE FOLLOW-UP PHONE CALL: S/p Piecemeal submucosal polypectomy with fulguration of remaining scar in R lateral decubitus position via TEM on 11/[address] Vidal Spoke to Marla from [facility]. Pain: None N/V: None Tolerating diet: Eating well with no issues BMs/stoma function: Normal BM. They did notice some blood spotting in brief for a couple days afterdischarge but has since resolved. Incisions: N/A Fever: None F/u appt scheduled: Message sent to Dr. Vidal in regards to when he would like repeat scope. Questions: No questions at this time. I informed them to call with any issues. documented in this encounter Plan of Treatment Upcoming Encounters Date Type Department Care Team (Latest Contact Info) Description 05/02/2025 7:15 AM EDT Hospital Encounter [facility] Operating Room [address] [place] [id number] Catracho Vidal MD MPH [address] [place] [id number] 05/05/2025 7:15 AM EDT - 05/05/2025 8:20 AM EDT Surgery [facility] Operating Room [address] [place] [phone] Catracho Vidal MD MPH [address] [place] [phone] Colonoscopy Screening, High Risk with Possible Moderate Sedation [92237 (CPT??)] Scheduled Procedures Name Priority Associated Diagnoses Date/Ti me COLONOSCOPY SCREENING, HIGH RISK WITH POSSIBLE MODERATE SEDATION Colorectal cancer (HCC) 05/05/2025 7:15 AM EDT documented as of this encounter Visit Diagnoses Not on filedocumented in this encounter Additional Health Concerns Infection Onset Date Last Indicated Resolved Time 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
--- OUTSIDE RECORDS SUMMARY | 2024-11-28 15:37 | XMS_ITS | Encounter Summary ---
Author Organization [facility] Address [address] [place] [address] Care Team Providers Care Administrative Court Justice Name Role Phone Sher Patrick Primary Care Provider [phone] Encounter Details Date Type Department Care Team (Latest Contact Info) Description 10/31/2024 10:09 PM EST - 11/04/2024 5:34 PM [facility] Hospital Encounter [facility] [address] [place] [address] Catracho Vidal MD MPH [address], [place] [id number] Anorectal polyp Discharge Disposition: Home or Self Care () Social History Tobacco Use Types Packs/Day Years Used Date Smoking Tobacco: Never Smokeless Tobacco: Never Alcohol Use Standard Drinks/Week Comments Never 0 (1 standard drink = 0.6 oz pur e alcohol) [facility] Utilities Answer Date Recorded In the past 12 months has e [employer], gas, oil, or water [employer] threatened to shut off services in your [...] Sign Reading Time Taken Comments Blood Pressure 116/66 11/04/2024 3:44 PM EST Pulse 63 11/04/2024 3:44 PM EST Temperature 36.2 ??C (97.2 ??F) 11/04/2024 3:44 PM ES T Respiratory Rate 16 11/04/2024 3:44 PM EST Oxygen Saturation 98% 11/04/2024 3:44 PM EST Inhaled Oxygen Concentration - - Weight 61.5 kg (135 lb 9.3 oz) 10/31/2024 11:21 PM EST Height 157.5 cm (5' 2.01 ) 10/31/2024 11:[address] Body Mass Index 24.79 10/31/2024 11:21 PM EST documented in this encounter Discharge Summaries * Tino Akins MD - 11/04/2024 5:34 PM EST Images from the original note were not included. DISCHARGE SUMMARY [facility] DISCHARGE INFORMATION: Date and Time of Admission: 10/31/2024 11:29 PM Date of Discharge: 11/04/2024 DISCHARGE DIAGNOSIS: Problem List Active Problems * (Principal) Rectal Polyps Bipolar disorder with depression ([facility]/HCC) (HCC) Mood disorder ([facility]) Psychotic disorder ([facility]) ATTENDING PHYSICIAN ON DISCHARGE: FOLLOW-UPS AND SCHEDULED [...] by mouth Mon-Mon-Mon in AM 0 INV [id number] triamcinolone acetonide Apply topically to the affected [...] longer uses inhaler Bipolar disorder with depression ([facility]) ([facility]) 12/24/2020 Cataract 12/24/2020 Chronic diarrhea Increase diarrhea, incontinent, over the last 1 week Class 3 severe obesity in adult ([facility]) 12/22/2020 Colon cancer ([facility]) 2002 Colon polyps 08/23/2019 Constipation 12/24/2020 Deep vein thrombosis ([facility]) remote history, takes Aspirin 81 mg daily Depression Developmental delay Intellectual disability 12/22/2020 Mood disorder ([facility]) 12/24/2020 Obesity Personal history of rectal cancer 12/22/2020 Presbyopia 12/24/2020 Psychotic disorder ([facility]) 12/24/2020 Rectal mass 08/19/2019 Rectal polyp Rheumatoid arthritis ([facility]) 12/24/2020 S/P colonoscopy with polypectomy 08/03/2020 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 Urinary incontinence Urinary retention 12/24/2020 Venous stasis PAST SURGICAL HISTORY: Past Surgical History: Procedure Laterality Date COLECTOMY Rectal cancer HERNIA REPAIR OH COLONOSCOPY FLX DX W/COLLJ SPEC WHEN PFRMD N/A 08/05/2020 Procedure: COLONOSCOPY, DIAGNOSTIC, WITH POSSIBLE MODERATE SEDATION; Surgeon: Catracho Vidal MD MPH; [facility]; Service: Colorectal OH COLONOSCOPY FLX DX W/COLLJ SPEC WHEN PFRMD N/A 12/23/2020 Procedure: COLONOSCOPY, DIAGNOSTIC, WITH POSSIBLE MODERATE SEDATION; Surgeon: Catracho Vidal MD MPH; Location: [facility]; Service: Colorectal OH COLONOSCOPY FLX DX W/COLLJ SPEC WHEN PFRMD N/A 07/05/2021 Procedure: COLONOSCOPY, DIAGNOSTIC, POLYPECTOMY WITH MODERATE SEDATION ; Surgeon: Catracho Vidal MD MPH; Location: [facility]; Service: Colorectal OH COLONOSCOPY FLX DX W/COLLJ SPEC WHEN PFRMD N/A 03/20/2023 Procedure: DIAGNOSTIC FLEXIBLE COLONOSCOPY PROXIMAL TO SPLENIC FLEXURE WITH COLLECTION OF SPECIMEN BY WASHING AND COLON DECOMPRESSION; Surgeon: Catracho Vidal MD MPH; [place] [facility]; Service: Colorectal OH COLONOSCOPY FLX DX W/COLLJ SPEC WHEN PFRMD N/A 09/19/2023 Procedure: DIAGNOSTIC FLEXIBLE COLONOSCOPY PROXIMAL TO SPLENIC FLEXURE WITH COLLECTION OF SPECIMEN BY WASHING AND COLON DECOMPRESSION; Surgeon: Catracho Vidal MD MPH; [place] [facility]; Service: Colorectal OH COLONOSCOPY FLX DX W/COLLJ SPEC WHEN PFRMD N/A 04/01/2024 Procedure: COLONOSCOPY SCREENING, LOW RISK WITH POSSIBLE MODERATE SEDATION; Surgeon: Catracho Vidal MD MPH; [place] [facility]; Service: Colorectal OH COLONOSCOPY W/BIOPSY SINGLE/MULTIPLE Left 08/22/2019 Procedure: COLONOSCOPY W/ BIOPSY, SINGLE OR MULTIPLE WITH POSSIBLE MODERATE SEDATION; Surgeon: Catracho Vidal MD MPH; Location: [facility]; Service: Colorectal OH COLSC FLX W/RMVL OF TUMOR POLYP LESION SNARE TQ Left 08/05/2020 Procedure: COLONOSCOPY, FLEXIBLE; WITH REMOVAL OF TUMOR(S), POLYP(S), OR OTHER LESION(S) BY SNARE TECHNIQUE AND POSSIBLE MODERATE SEDATION; Surgeon: Catracho Vidal MD MPH; Location: [facility]; Service: Colorectal OH SGMDSC FLX W/DCMPRN W/PLMT DCMPRN TUBE N/A 09/19/2022 Procedure: FLEXIBLE SIGMOIDOSCOPY, WITH snare polypectomy; Surgeon: Catracho Vidal MD MPH; Location: [facility]; Service: Colorectal PAST FAMILY HISTORY: Family [...] of discharge. Kirsten Ronquillo : 1955 CSN: [id number] documented in this encounter Discharge Instructions * [...] appetite. It can be helpful to eat store shopper foods initially and have small meals more frequently throughout the day instead of 3 larger meals. Nutritional supplement shakes (Ensure, [place] Instant Breakfast, Boost etc) can helpyou reach [...] mouth. 325mg by mouth Mon-Wed-Mon in AM 10/12/2023 guaiFENesin (ROBITUSSIN) 100 mg/5 mL syrup Take 200 mg by mouth 3 times a day as needed for congestion. ibuprofen (MOTRIN) 400 mg tablet Take 400 mg by mouth every 6 hours as needed for pain. 04/08/2021 INV [id number] triamcinolone acetoniden 0.1% topical ointment Apply topically [...] transanal endoscopic microsurgery possible TAMIS on 11/04. Since admission she has completed bowel prep and is clinically in stable condition. She is appropriate for the OR today for scheduled TEMS withDr. Marcy. Further plans to follow post operative course. Plans are preliminary and subject to change. Please see attending attestation for final plans. Signature: Man Stevesn MD Resident Physician Pager: #[phone] Cosigned by Catracho Vidal MD MPH at 11/08/2024 11:23 AM EST Associated attestation - Catracho Vidal MD MPH - 11/08/2024 11:23 AM EST I saw and evaluated the patient. Case discussed with the resident/fellow and I agree with the findings and plan as documented in the resident's/fellow's note. * Palomo Elizabeth MD - 11/03/2024 10:52 AM EST Division [...] 11/03/2024 8:56 AM EST Associated attestation - rDead Marshall MD - 11/03/2024 8:56 AM EST [...] have occurred. Kirsten Ronquillo : 1955 CSN: [id number] Source Note - Qamar Bonner MD - [...] stasis Past Surgical History: COLECTOMY HERNIA REPAIR OH COLONOSCOPY FLX DX W/COLLJ SPEC WHEN PFRMD; N/A OH COLONOSCOPY FLX DX W/COLLJ SPEC WHEN PFRMD; N/A OH COLONOSCOPY FLX DX W/COLLJ SPEC WHEN PFRMD; N/A OH COLONOSCOPY FLX DX W/COLLJ SPEC WHEN PFRMD; N/A OH COLONOSCOPY FLX DX W/COLLJ SPEC WHEN PFRMD; N/A OH COLONOSCOPY FLX DX W/COLLJ SPEC WHEN PFRMD; N/A OH COLONOSCOPY W/BIOPSY SINGLE/MULTIPLE; Left OH COLSC FLX W/RMVL OF TUMOR POLYP LESION SNARE TQ; Left OH SGMDSC FLX W/DCMPRN W/PLMT DCMPRN TUBE; N/A [...] Reported on 10/23/2024 08/23/19 PAYTON Martino INV [id number] triamcinolone acetoniden 0.1% topical ointment Apply topically [...] at 11/04/2024 7:28 AM EST * Qamar Bnoner MD - 10/31/2024 11:56 PM EST Division [...] stasis Past Surgical History: COLECTOMY HERNIA REPAIR OH COLONOSCOPY FLX DX W/COLLJ SPEC WHEN PFRMD; N/A OH COLONOSCOPY FLX DX W/COLLJ SPEC WHEN PFRMD; N/A OH COLONOSCOPY FLX DX W/COLLJ SPEC WHEN PFRMD; N/A OH COLONOSCOPY FLX DX W/COLLJ SPEC WHEN PFRMD; N/A OH COLONOSCOPY FLX DX W/COLLJ SPEC WHEN PFRMD; N/A OH COLONOSCOPY FLX DX W/COLLJ SPEC WHEN PFRMD; N/A OH COLONOSCOPY W/BIOPSY SINGLE/MULTIPLE; Left OH COLSC FLX W/RMVL OF TUMOR POLYP LESION SNARE TQ; Left OH SGMDSC FLX W/DCMPRN W/PLMT DCMPRN TUBE; N/A [...] Reported on 10/23/2024 08/23/19 PAYTON Martino INV [id number] triamcinolone acetoniden 0.1% topical ointment Apply topically [...] Singer RN - 11/01/2024 6:53 AM EST [facility] IV Access Nursing Consult CONSULTS Reason for [...] discomfort. Vitals are stable. Discharging home with [facility]. D/C teaching provided to both. No [...] has good pain control, denies, nausea and vomits.Plans on discharge today if patient continues to do well. Pain: APAP Diet: Reg IVF: HLIV LTD: PIV PPx: SQH, SCDs Abx: none Activity: AT [ ] DTV@4-6pm [ ] Likely dc 11/05 ELECTRONIC SIGNATURE Tino Akins, PGY-1 General Surgery * Plan of Care - Chip Hackett - 11/04/2024 1:37 PM EST Case Management Discharge note: Pt agrees with d.c back to [facility]. Pertinent Clinical and medical clearance : Pt has cleared spoken with Nurse at the home is Mariel Montano [phone] who has emailed this CMon the information needed to be signed by team to return back to home.Called Contacted Annadariela Maldonado [phone], called Anna who confirmed address and that the [facility] is one level living, ramp entry, pt ambulates with walker baseline and the they will send in staff to pick Pt up at 4:30 paperwork for MD completion today of discharge. Final Discharge Plan: Communicated with HCP/Caregiver yes Isi Thompson / friend [phone] Nurse to Nurse Handoff information (if applicable): Other (including expected out of pocket costs for patient): Discharge IM : Important Message from Medicare, [facility]-70578 (12/13/19) [facility] Approval No.: [phone] (Expires 10/01/25) was provided to the patient with verbal explanation. Signed copy left in Epic Scan bin to be added to the [...] was present during the entire procedure. Staff: Census Taker: Mariel Guzman RN Relief Census Taker: Mary Anne Rashid RN Scrub: Mason Kessler Anesthesia:General Estimated Blood Loss: No blood loss documented. Anesthesia Encounters Anesthesia Encounter - Episode ID [id number] Intraprocedure I/O Totals Intake acetaminophen (OFIRMEV) IV [...] * Donna Cuellar MD - Fellow Staff: Census Taker: Mariel Guzman RN Relief Census Taker: Mary Anne Rashid RN Scrub: Mason Kessler Anesthesia: Monitor Anesthesia Care Estimated Blood Loss: No blood loss documented. Anesthesia Encounters Anesthesia Encounter - Episode ID [id number] Intraprocedure I/O Totals Intake acetaminophen (OFIRMEV) IV [...] Tissue Anus TISSUE EXAM Catracho Vidal MD [facility] 11/04/2024 1000 * No implants in [...] (interventions implemented as appropriate) Flowsheets Taken 11/03/2024 5000 Plan of Care Summary: Pt A&Ox4. Garbled/slurred [...] (interventions implemented as appropriate) Flowsheets (Taken 11/02/2024 1904) Plan of Care Reviewed With: patient Plan of Care Summary: Cared for this patient [phone], alert and oriented, 1 assist OOB to [...] EST Plan of Care Summary: arrived from [place] [address] in bed a&Ox4 no s/s any distress [...] call light within reach. Pt transferred to [facility] report called and given to Janis [...] record and that HCP contact is Isi Thompson / kaila [phone] , called Isi, left message on [employer] for call back. Chart review, patient from [facility]. Called [phone], no answer. Called Contact at the home per chart review is Anna Maldonado [phone], called Anna who confirmed address and that the [facility] is one level living, ramp entry, pt ambulates with walker baseline. Nurse contact at the home isMariel Montano [phone]. The [facility] staff can provide transportation home and would bring in paperwork for MD completion on day of discharge. They can not accept weekend returns to the [facility]. Supports, HCP, Designated Caregiver, Guardian: Isi Thompson / friend [phone] Initial Discharge Planning: TBD , anticipate return to the [facility] Choice list (with star ratings) provided / [...] came in as a direct admit from [facility] for bowel prep for TAMIS on Monday11/04/24. No c/o pain/discomfort overnight, incontinent care provided, refused IV placement and heparin, provider notified. Call light within reach safety maintained. documented in this encounter Plan of Treatment Upcoming Encounters Date Type Department Care Team (Latest Contact Info) Description 05/02/2025 7:15 AM EDT Hospital Encounter [facility] Operating Room [address] [place] [address] Catracho Vidal MD MPH [address] [place] [address] 05/05/2025 7:15 AM EDT - 05/05/2025 8:20 AM EDT Surgery [facility] Operating Room [address] [place] [address] Catracho Vidal MD MPH [address] [place] [address] Colonoscopy Screening, High Risk with Possible Moderate Sedation [21280 (CPT??)] Scheduled Procedures Name Priority Associated Diagnoses Date/Ti nm COLONOSCOPY SCREENING, HIGH RISK WITH POSSIBLE MODERATE SEDATION Colorectal cancer (HCC) 05/05/2025 7:15 AM EDT documented as of this encounter Procedures * Due to [facility] law, this organization might not be sharing negative HIV tests. Procedure Name Priority Date/Time Associated Diagnosis Comments TISSUE EXAM Routine 11/04/2024 10:00 AM EST Anorectal polyp OH EXCIS CHALAZION,GEN ANESTHESIA 11/04/2024 7:59 AM EST Anorectal polyp [...] in this encounter Results * Due to [place] [employer] law, this organization might not be sharing negative HIV tests. 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 - See note Note: The fragmented nature of specimen precludes the evaluation of margin status. [facility] 11/05/2024 5:18 PM EST [facility] [employer] [facility] ANAT[facility]IC PATHOLOGY LABORAT[facility] Clinical History Pre-op diagnosis: Anorectal polyp [K62.0, K62.1] [facility] MANUAL 11/05/2024 5:18 PM EST [facility] ANATOMIC PATHOLOGY LABORATORY Gross Description 1. Anus [...] quadrisected 1G-1 fragment bisected 1H-smallest fragmented bisected [facility] MANUAL 11/05/2024 5:18 PM EST [facility] PATHOLOGY LABORAT[facility] Gross Description User Grossing complete by Tootie Somers on 11/04/2024 3:24 PM [facility] MANUAL 11/05/2024 5:18 PM EST [facility] ANATOM[facility] PATHOLOGY LAB[facility]AT[facility] Embedded Images [facility] MANUAL 11/05/2024 5:18 PM EST [facility]Facet Decision SystemsT[facility] [employer] [facility] Resulting Agency Case was signed out at [facility], Department of Pathology, [employer] 3 CLIA [id number] [facility] MANUAL 11/05/2024 5:18 PM EST [facility]ENTERHot PotatoNC [employer] [facility] ANAT[facility]IC PATHOLOG[facility] LABORAT[facility] Report Header Surgical Pathology Report ? Case: [id number] ? Authorizing Provider: ??Catracho Vidal MD MPH ?Collected: ? 11/04/2024 1000 ? Ordering Location: ? [facility] ? Received: ?11/04/2024 1158 ? [facility] ? Operating Room ? Pathologist: ? Mirella Cai MD ? Specimen: ?Anus, rectal polyp ? 11/05/2024 5:18 PM EST [employer] [facility] ANATOMIC PATHOLOGY LABORATORY Tissue Anal structure / Unknown 11/04/2024 10:00 AM EST 11/04/2024 11:58 AM EST Comment:Pre-op diagnosis: Anorectal polyp [K62.0, K62.1] us Catracho Vidal MD MPH LAB PATHOLOGY/CYTOLOGY ORDERA BLES Final Result [employer] [facility] [address] [place] [address], [facility] ANATOMIC PATHOLOGY LABORATORY [address] [place] [address], * Phosphorus (11/03/2024 12:56 AM EST) Phosphorus 2.7 2.5 - 4.5 mg/dL 11/03/2024 2:02 AM EST [facility] PATHOLOG[facility] Blood Structure of peripheral vein / Unknown Venipuncture / Unknown 11/03/2024 12:56 AM EST 11/03/2024 1:26 AM EST Catracho Vidal MD MPH LAB BLOOD ORDERABLES Final Re sult Performing Organization Address City/[facility]/ZIP Co de Phone Number [facility] [address] [place] [address], [place] * Magnesium (11/03/2024 12:56 AM EST) MG 2.3 1.6 - 2.4 mg/dL 11/03/2024 2:02 AM EST [facility] Blood Structure of peripheral vein / Unknown Venipuncture / Unknown 11/03/2024 12:56 AM EST 11/03/2024 1:26 AM EST Catracho Vidal MD MPH LAB BLOOD ORDERABLES Final Re sult Performing Organization Address City/[facility] Co de Phone Number [facility] [address] [place] [address], [place] * Basic Metabolic Panel (11/03/2024 12:56 AM EST) NA 138 135 - 145 mmol/L 11/03/2024 2:02 AM EST [facility] K 3.9 3.5 - 5.3 mmol/L 11/03/2024 2:02 AM EST [facility] Cl 104 98 - 107 mmol/L 11/03/2024 2:02 AM EST [facility] CO2 24 22 - 32 mmol/L 11/03/2024 2:02 AM EST [facility] BUN 13 7 - 23 mg/dL 11/03/2024 2:02 AM EST [facility] Creatinine 0.70 0.50 - 1.20 mg/dL 11/03/2024 2:02 AM EST [facility] Glucose 94 65 - 99 mg/dL 11/03/2024 2:02 AM EST [facility] Calcium 8.7 8.6 - 10.5 mg/dL 11/03/2024 2:02 AM EST [facility] Anion Gap 10 5 - 15 11/03/2024 2:02 AM EST [facility] eGFR >90 >=60 mL/min/1. 73m2 11/03/2024 2:02 AM EST [facility] Comment:The estimated glomer ular [...] MPH LAB BLOOD ORDERABLES Final Re sult [facility] [address] [place] [address], * Phosphorus (11/02/2024 10:25 AM EST) Phosphorus 2.5 2.5 - 4.5 mg/dL 11/02/2024 11:03 AM EST [facility] Blood Structure of peripheral vein / Unknown Venipuncture / Unknown 11/02/2024 10:25 AM EST 11/02/2024 10:28 AM EST Catracho Vidal MD MPH LAB BLOOD ORDERABLES Final Re sult Performing Organization Address [facility] Co de Phone Number [facility] [address] [place] [address], * Magnesium (11/02/2024 10:25 AM EST) MG 2.4 1.6 - 2.4 mg/dL 11/02/2024 11:03 AM EST [facility] Blood Structure of peripheral vein / Unknown Venipuncture / Unknown 11/02/2024 10:25 AM EST 11/02/2024 10:28 AM EST Catracho Vidal MD MPH LAB BLOOD ORDERABLES Final Re sult Performing Organization Address [facility] Co de Phone Number [facility] [address] [place] [address], * Basic Metabolic Panel (11/02/2024 10:25 AM EST) NA 136 135 - 145 mmol/L 11/02/2024 11:03 AM EST [facility] K 3.9 3.5 - 5.3 mmol/L 11/02/2024 11:03 AM EST [facility] Cl 100 98 - 107 mmol/L 11/02/2024 11:03 AM EST [facility] CO2 27 22 - 32 mmol/L 11/02/2024 11:03 AM EST [facility] BUN 20 7 - 23 mg/dL 11/02/2024 11:03 AM EST [facility] Creatinine 0.91 0.50 - 1.20 mg/dL 11/02/2024 11:03 AM EST [facility] Glucose 95 65 - 99 mg/dL 11/02/2024 11:03 AM EST [facility] Calcium 8.9 8.6 - 10.5 mg/dL 11/02/2024 11:03 AM [facility] PATH[facility] Anion Gap 9 5 - 15 11/02/2024 11:03 AM [facility] eGFR 68 >=60 mL/min/1. 73m2 11/02/2024 11:03 AM EST [facility] Comment:The estimated glomer [...] MPH LAB BLOOD ORDERABLES Final Re sult [facility] Organization Address City/State/ZIP Co de Phone Number [facility] [address] [place] [address], documented in this encounter Visit Diagnoses Diagnosis Rectal Polyps- Primary Psychotic disorder (HCC) Unspecified psychosis Mood disorder (HCC) Unspecified episodic mood disorder Bipolar disorder with depression (CMS/HCC) (HCC) Colorectal cancer (HCC) Malignant neoplasm of colon, [...] the numeric pain scale), Starting on Bernadine 10/31/24 at 2320, Until 11/04/24 at 1935, To be given in conjunction [...] Given 11/01/2024 8:03 AM EST 15 mg aspirin chewable tablet 81 mg 81 mg, oral, Daily, First dose on Mon11/01/24 at 0900, Until Discontinued Given 11/01/2024 8:04 AM EST 81 mg benztropine (COGENTIN) tablet 0.5 mg 0.5 mg, oral, 2 times daily, First dose on Mon11/01/24 at 0900, Until Discontinued Given 11/03/2024 4:00 PM EST 0.5 mg Given 11/03/2024 8:25 AM EST 0.5 mg Given 11/02/2024 5:01 PM EST 0.5 mg bisacodyL (DULCOLAX) EC tablet 20 mg 20 mg, oral, Once, On Mon11/01/24 at 1000, 1 dose, Do not crush. Given 11/01/2024 10:20 AM EST 20 mg bisacodyL (DULCOLAX) EC tablet 20 mg 20 mg, oral, Once, On Mon11/02/24 at 1015, 1 dose, Do not crush. Given 11/02/2024 11:41 AM EST 20 mg carBAMazepine (TEGretol) tablet 200 mg 200 mg, oral, Every 8 hours scheduled, First dose on Mon11/01/24 at 0600, Until Discontinued, Hazardous Medication ? Reproductive Risk. Use PPE when handling. Given 11/04/2024 2:15 PM EST 2 00 mg Given 11/04/2024 5:15 AM EST 200 mg Given 11/03/2024 9:05 PM EST 200 mg heparin subcutaneous injection 5,000 Units 5,000 Units, subcutaneous, Every 8 hours scheduled, First dose on Bernadine 10/31/24 at 2345, Until Discontinued Given 11/04/2024 2:15 [...] Mon11/01/24 at 0044, Until Mon11/04/24 at 1935 mirabegron (MYRBETRIQ) tablet 50 mg 50 mg, oral, Daily, First dose on Mon11/01/24 at 0900, Until Discontinued, Swallow whole with water; do not chew, divide, or crush. Given 11/03/2024 8:25 AM EST 5 0 mg Given 11/02/2024 8:21 AM EST 50 mg Given 11/01/2024 8:03 AM EST 50 mg OLANZapine (ZyPREXA) tablet 5 mg 5 mg, oral, Nightly, First dose on Mon11/01/24 at 0100, Until Discontinued Given 11/03/2024 9:00 PM EST 5 mg Given 11/02/2024 9:47 PM EST 5 mg Given 11/01/2024 8:51 PM EST 5 mg polyethylene glycol 3350 (MIRALAX) packet 119 g 119 g, oral, Once, On Mon11/01/24 at 1530, 1 dose, Mix 7 packets with 32 oz of Gatorade or other clear fluid. Dissolve each 17 g packet in 4-8 ounces of water or juice prior to administration. Given 11/01/2024 3:20 PM EST 119 g polyethylene glycol 3350 (MIRALAX) packet 238 g 238 g, oral, Once, On Mon11/01/24 at 1030, 1 dose, Mix all 14 packets with 64 oz of Gatorade or other clear fluid. Dissolve each 17 g packet in 4-8 ounces of water or juice prior to administration. Given 11/01/2024 10:21 AM EST 238 g polyethylene glycol 3350 (MIRALAX) packet 238 g 238 g, oral, Once, On 11/02/24 at 1130, 1 dose, Mix all 14 packets with 64 oz of Gatorade or other clear fluid. Dissolve each 17 g packet in 4-8 ounces of water or juice prior to administration. Given 11/02/2024 11:43 AM EST 238 g polyethylene glycol 3350 (MIRALAX) packet 238 g 238 g, oral, Once, On 11/03/24 at 0915, 1 dose, Mix all 14 packets with 64 oz of Gatorade or other clear fluid. Dissolve each 17 g packet in 4-8 ounces of water or juice prior to administration. Given 11/03/2024 9:24 AM EST 238 g potassium phosphate (K-PHOS) tablet 1,000 mg 1,000 mg, oral, Once, On 11/03/24 at 0700, 1 dose, Dissolve tablets in 6-8 oz of water. Given 11/03/2024 8:25 AM EST 1,000 mg sodium chloride 0.9% flush 2.5-10 mL 2.5-10 mL, intravenous, See admin instructions, Starting on Mon10/31/24 at 2319, Until 11/04/24 at 1935, Flush each lumen with a [...] (Given - Provider: Vielka Heredia RN) 0701 ([facility] Hold - Provider: Automatic Transfer Provider - Reason: Procedure/Surgery)09 00 (Dose Auto Held - Provider: Automatic Transfer Provider)1120 ([facility] Unhold - Provider: Automatic Transfer Provider) benztropine (COGENTIN) tablet 0.5 mg 0.5 mg, oral, 2 times daily, First dose on Mon11/01/24 at 0900, Until Discontinued 0822 (Given - Provider: Su Gilmore RN)1701 (Given - Provider: Su Gilmore RN) 0825 (Given - Provider: Vielka Heredia, LAY)1600 (Given - Provider: Vielka Heredia, LAY) 0701 ([facility] Hold - Provider: Automatic Transfer Provider - Reason: Procedure/Surgery)09 00 (Dose Auto Held - Provider: Automatic Transfer Provider)1120 ([facility] Unhold - Provider: Automatic Transfer Provider)1700 (Due) bisacodyL (DULCOLAX) EC tablet 20 mg (COMPLETED) 20 mg, oral, Once, On 11/02/24 at 1015, 1 dose, Do not crush. 1141 (Given - Provider: Su Gilmore RN) carBAMazepine (TEGretol) tablet 200 mg 200 [...] 0515 (Given - Provider: Tigist Horta RN)0701 (NOV Hold - Provider: Automatic Transfer Provider [...] 0515 (Given - Provider: Tigist Horta RN)0701 ([facility] Hold - Provider: Automatic Transfer Provider - Reason: Procedure/Surgery)11 20 ([facility] Unhold - Provider: Automatic Transfer Provider) loratadine (CLARITIN) tablet 10 mg 10 mg, oral, Daily, First dose on Mon11/01/24 at 0900, Until Discontinued 0821 (Given - Provider: Su Gilmore, LAY) 0826 (Given - Provider: Vielka Heredia RN) 07 ([facility] Hold - Provider: Automatic Transfer Provider - Reason: Procedure/Surgery)09 00 (Dose Auto Held - Provider: Automatic Transfer Provider)1120 (MAR Unhold - Provider: Automatic Transfer Provider) mirabegron (MYRBETRIQ) tablet 50 mg 50 mg, oral, Daily, First dose on Mon11/01/24 at 0900, Until Discontinued, Swallow whole with water; do not chew, divide, or crush. 0821 (Given - Provider: Su Gilmore RN) 0825 (Given - Provider: Vielka Heredia RN) 07 ([facility] Hold - Provider: Automatic Transfer Provider - Reason: Procedure/Surgery)09 00 (Dose Auto Held - Provider: Automatic Transfer Provider)1120 ([facility] Unhold - Provider: Automatic Transfer Provider) OLANZapine (ZyPREXA) tablet 5 mg 5 mg, oral, Nightly, First dose on Mon11/01/24 at 0100, Until Discontinued 2146 (Given - Provider: Tigist Horta RN) 2100 (Given - Provider: Tigist Horta RN) 07 (MAR Hold - Provider: Automatic Transfer Provider - Reason: Procedure/Surgery)11 20 ([facility] Unhold - Provider: Automatic Transfer Provider) polyethylene [...] Provider: Automatic Transfer Provider - Reason: Procedure/Surgery)10 (NOV Unhold - Provider: Farzana Cunningham RN) [...] - Comment: no Iv placed md aware) 07 (NOV Hold - Provider: Automatic Transfer [...] - See Comment - Comment: No IV cindyss MD aware)07 (NOV Hold - Provider: Automatic Transfer [...] 2146 (Given - Provider: Tigist Horta RN) 2058 (Given - Provider: Tigist Horta RN) 07 ([facility] Hold - Provider: Automatic Transfer Provider - Reason: Procedure/Surgery)11 20 ([facility] Unhold - Provider: Automatic Transfer Provider) PRN [...] Heredia RN) 0519 (Given - Provider: Tigist Horta RN)07 ([facility] Hold - Provider: Automatic Transfer Provider - Reason: Procedure/Surgery)1030 ([facility] Unhold - Provider: Farzana Cunningham, LAY) melatonin tablet 6 mg 6 mg, oral, Nightly PRN, sleep, Starting on Mon11/01/24 at 0044, Until Mon11/04/24 at 1935 0701 ([facility] Hold - Provider: Automatic Transfer Provider - Reason: Procedure/Surgery)1120 ([facility] Unhold - Provider: Automatic Transfer Provider) mineral [...] at 2321, Until Mon11/04/24 at 1935 0701 ([facility] Hold - Provider: Automatic Transfer Provider - Reason: Procedure/Surgery)1030 ([facility] Unhold - Provider: Farzana Cunningham RN) Linked [...] documented as of this encounter Care Teams Administrative Court Justice Relationship Specialty Start Date End Date Sher Patrick [address] [place] [address] [place] [address] PCP - General 04/20/17 documented as of this encounter
--- OUTSIDE RECORDS SUMMARY | 2024-11-28 15:38 | XMS_ITS | Referral Summary ---
Author Organization [facility] Address [address] [place] [address] Care Team Providers Care Cosmetic Counselor Name Role Phone Sher Patrick Primary Care Provider [phone] Encounters Date Type Department Care Team Description 11/15/2024 Orders Only [facility] Colorectal Surgery [address] [place] [id number] [employer]: Kori Mike RN Colorectal cancer (HCC) (Primary Dx) 11/14/2024 Telephone [facility] Colorectal Surgery [address] [place] [address] [employer] Recruiter: Kori Mike RN 11/04/2024 7:45 AM EST - 11/04/2024 10:15 AM EST Surgery [facility] Operating Room [address] [place] [id number] Catracho Vidal MD MPH TRANSANAL ENDOSCOPIC MICROSURGERY, possible TAMIS. with air seal [56302 (CPT??)] 10/31/2024 10:09 PM EST - 11/04/2024 5:34 PM EST Hospital Encounter [facility] Unit [address] [place] [address] Catracho Vidal MD MPH Anorectal polyp Discharge Disposition: Home or Self Care () 11/04/2024 8:14 AM EST Anesthesia Event [facility] Operating Room [address] [place] [phone] Sarah Chapa MD PrasadRoss MD 10/24/2024 Documentation [facility] [address] [place] [phone] [employer] Rec[employer]iter: Boyd Connors MD 10/23/2024 10:20 AM EST Follow-Up [facility] [address] [place] [phone] [employer] Rec[employer]iter: Boyd Connors MD Hyponatremia (Primary Dx) 09/10/2024 Documentation [facility] Colorectal Surgery [address] [place] [phone] [employer] Recruiter: Kori Mike RN 09/09/2024 Telephone [facility] [address] [place] [address] [employer] Rec[employer]iter: Jamilah Fuller Telephone Intake, Staff PAC Labs Needed-; PAC Surgery/procedure Scheduling (colo) from Last 3 Months Allergies Active Allergy Reactions Criticality Noted Date Comments House Dust Wheezing Low 08/19/2019 Latex Rash 12/09/2020 Medications carBAMazepine (TEGretol) 200 mg tablet TAKE 1 IN AM AND 2 TABS AT NIGHT 0 9 Active aspirin 81 mg EC tablet Take 81 mg by mouth daily. 6 9 Active loratadine (CLARITIN) 10 mg tablet Take 10 mg by mouth daily. 5 9 Active ibuprofen (MOTRIN) 400 mg tablet Take 400 mg by mouth every 6 hours as needed for pain. 1 Active multivitamin capsule Take 1 capsule by mouth once a day. Active guaiFENesin (ROBITUSSIN) 100 mg/5 mL syrup Take 200 mg by mouth 3 times a day as needed for congestion. Active melatonin 3 mg tablet Take 10 mg by mouth nightly. Active ascorbic acid 500 mg tablet 500 mg. By mouth twice daily 5 Active betamethasone dipropionate 0.05 % ointment 2 times a day. Apply to affected dry areas on hands twice daily as needed 5 Active Colace 100 mg capsule Take 100 mg by mouth. 1 capsule by mouth twice daily 4 Active donepeziL (ARICEPT) 5 mg tablet 5 mg. 5 mg by mouth daily at bedtime 4 Active ferrous sulfate 325 mg (65 mg iron) EC tablet Take 325 mg by mouth. 325mg by mouth Mon-Wed-Fri in AM 4 Active methenamine (HIPREX) 1 gram tablet See Instructions, TAKE 1 TABLET BY MOUTH TWICE DAILY., # 90 capsule, 3 Refills, Maintenance, 06/28/24 10:07:00 EDT, [facility], 154, cm, 11/02/23 15:00:00 EST, Height, 57.6, kg, 12/01/23 8:48:00 EST, Dry Weight 4 Active INV [id number] triamcinolone acetoniden 0.1% topical ointment Apply topically to the affected area. Thin layer topically to the affected area twice daily as needed 3 Active QUEtiapine (SEROquel) 50 mg tablet Take 50 mg by mouth 3 times a day. Active traZODone (DESYREL) 100 mg tablet Take 100 mg by mouth nightly. Active tamsulosin (FLOMAX) 0.4 mg capsule Take 0.4 mg by mouth once a day. Active acetaminophen (TYLENOL) 500 mg tablet Take 1 tablet (500 mg total) by mouth every 4 hours as needed for pain. 5 Active ARIPiprazole (ABILIFY) 15 mg tablet Take 15 mg by mouth once a day. 025 Discontin ued(Stop Taking at Discharge ) imipramine (TOFRANIL) 25 mg tablet Take 1 tablet (25 mg total) by mouth daily. 9 025 Discontin ued(Stop Taking at Discharge ) imipramine (TOFRANIL) 25 mg tablet Take 3 tablets (75 mg total) by mouth nightly. 9 025 Discontin ued(Stop Taking at Discharge ) acetaminophen (TYLENOL) 325 mg tablet Take 2 tablets (650 mg total) by mouth every 4 hours as needed for pain. 9 025 Discontin ued(Stop Taking at Discharge ) benztropine (COGENTIN) 0.5 mg tablet Take 1 tablet (0.5 mg total) by mouth daily. 9 025 Discontin ued(Stop Taking at Discharge ) Myrbetriq 50 mg tablet Take 50 mg by mouth once a day. 2 025 Discontin ued(Stop Taking at Discharge ) levothyroxine (SYNTHROID, LEVOTHROID) 112 mcg tablet Take 112 mcg by mouth daily. 4 025 Discontin ued(Stop Taking at Discharge ) polyethylene glycol 3350 (MIRALAX) 17 gram packet [...] 4-8oz of water, juice, coffee, or tea. 30 packet 4 025 Discontin ued(Stop Taking at Discharge ) sodium chloride 1,000 mg tablet,soluble Take 1 tablet (1 g total) by mouth 2 times a day. 28 tablet 4 025 Discontin ued(Stop Taking at Discharge ) Active Problems Problem Noted Date Diagnosed Date Hyponatremia 08/26/2024 Assessment & Plan (10/24/2024 10:48 AM EST): She has had intermittently borderline low sodium in the past. Recent admission had acute drop in sodium from 129->123 in setting of receiving high fluid intake and low osmolar intake during bowel prep, hydrochlorothiazide may also have contributed to her hyponatremia. 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 Urine osmolality at that time was suboptimally dilute (around 200s), suggests a combination of etiologies above. In anticipation of additional bowel prep for procedure in februrary - today, serum sodium is normal. - once admitted for inpatient bowel prep, would concurrently start urea 15g bid during bowel prep to give additional osmolar load, do not anticipate her needing urea upon discharge - holding HCTZ indefinitely due to history of hyponatremia - will follow up with nephrology as needed Assessment & Plan (08/27/2024 1:20 PM EST): She has had intermittently borderline low sodium in the past. 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 - upon discharge would continue 1.5 L fluid restriction, protein shakes daily - salt tab 1g bid - Repeat labs in 1 week - when future bowel prep is necessary would need to increase osmolar intake simultanously, if inpatient bowel prep would do concurrent urea 15g bid - holding HCTZ indefinitely due to history of hyponatremia - will arrange for renal follow up Encounter for screening colonoscopy 08/21/2024 Recurrent rectal polyp 03/17/2023 Colorectal cancer 07/03/2021 Asthma 12/24/2020 Constipation 12/24/2020 Rheumatoid arthritis 12/24/2020 Urinary retention 12/24/2020 Urinary incontinence 12/24/2020 Mood disorder 12/24/2020 Bipolar disorder with depression (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 Cataract 12/24/2020 Presbyopia 12/24/2020 Intellectual disability 12/22/2020 Personal history of rectal cancer 12/22/2020 Class 3 severe obesity in adult 12/22/2020 S/P colonoscopy with polypectomy 08/03/2020 Colon polyps 08/23/2019 Polyp of rectum 08/19/2019 Rectal Polyps 05/30/2012 Resolved Problems Problem Noted Date Diagnosed Date Resolved Date Surgery, elective 09/16/2023 09/19/2023 Assessment & Plan (09/17/2023 6:42 AM EST): Pain: apap Diet: CLD IVF: HLIV LTD: PIV, pure wic PPx: SCDs, SQH Abx: none Activity: AT [ ] fu bowel prep - miralax [ ] AM BMP Small bowel obstruction 09/17/2022 12/2 Preoperative clearance 08/03/202008/06 Immunizations Immunization Administration Dates Next Due Influenza, Injectable, Quadrivalent, Preservativ e Free 07/05/2021 Social History Tobacco Use Types Packs/Day Years Used Date Smoking Tobacco: Never Smokeless Tobacco: Never Tobacco Cessation:Counseling Given: Not Answered Alcohol Use Standard Drinks/Week Comments Never 0 (1 standard drink = 0.6 oz pur e alcohol) [facility] Utilities Answer Date Recorded In [...] Mass Index 24.79 10/31/2024 11:21 PM EST Plan of Treatment Upcoming Encounters Date Type Department Care Team (Latest Contact Info) Description 05/02/2025 7:15 AM EDT Hospital Encounter [facility] Operating Room [address] [place] [address] Catracho Vidal MD MPH [address] [place] [address] 05/05/2025 7:15 AM EDT - 05/05/2025 8:20 AM EDT Surgery [facility] Operating Room [address] [place] [address] Catracho Vidal MD MPH [address] [place] [address] Colonoscopy Screening, High Risk with Possible Moderate Sedation [06125 (CPT??)] Scheduled Procedures Name Priority Associated Diagnoses Date/Ti me COLONOSCOPY SCREENING, HIGH RISK WITH POSSIBLE MODERATE SEDATION Colorectal cancer (HCC) 05/05/2025 7:15 AM EDT Procedures * Due to [place] state law, this organization might not be sharing [...] METABOLIC PANEL Routine 11/02/2024 10:25 AM EST BASIC METABOLIC PANEL Routine 10/23/2024 2:45 PM EST Hyponatremia COLONOSCOPY 08/05/2020 from Last 3 Months or Most Recently Relevant to Health Maintenance Results * Due to [place] state law, this organization might not be sharing negative HIV tests. 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 - See note Note: The fragmented nature of specimen precludes the evaluation of margin status. [facility] MANUAL 11/05/2024 5:18 PM EST [facility] Clinical History Pre-op diagnosis: Anorectal polyp [K62.0, K62.1] [facility] MANUAL 11/05/2024 5:18 PM EST [facility] Gross Description 1. Anus The [...] quadrisected 1G-1 fragment bisected 1H-smallest fragmented bisected [facility] MANUAL 11/05/2024 5:18 PM EST [facility] Gross Description User Grossing complete by Tootie Somers on 11/04/2024 3:24 PM [facility] MANUAL 11/05/2024 5:18 PM EST [facility] Embedded Images [facility] MANUAL 11/05/2024 5:18 PM EST [facility] [employer] [facility] LAB[facility] Resulting Agency Case was signed out at [facility], Department of Pathology, [employer] 3 CLIA [id number] [place] MANUAL 11/05/2024 5:18 PM EST [facility] Report Header Surgical Pathology Report ? Case: [id number] ? Authorizing Provider: ??Catracho Vidal MD MPH ?Collected: ? 11/04/2024 1000 ? Ordering Location: ? [facility] ? Received: ?11/04/2024 1158 ? [facility] ? Operating Room ? Pathologist: ? Mirella Cai MD ? Specimen: ?Anus, rectal polyp ? 11/05/2024 5:18 PM EST [facility] Tissue Anal structure / Unknown 11/04/2024 10:00 AM EST 11/04/2024 11:58 AM EST Comment:Pre-op diagnosis: Anorectal polyp [K62.0, K62.1] Catracoh Vidal MD MPH LAB PATHOLOGY/CYTOLOGY ORDERA BLES Final Result Performing Organization Address [facility] de Phone Number [facility] [address] [place] [address], [facility] LAB[facility] [address] [place] [address], * Phosphorus (11/03/2024 12:56 AM EST) Only the most recent of2 resultswithin the time period is included. Phosphorus 2.7 2.5 - 4.5 mg/dL 11/03/2024 2:02 AM EST [facility] Blood Structure of peripheral vein / Unknown Venipuncture / Unknown 11/03/2024 12:56 AM EST 11/03/2024 1:26 AM EST Catarcho Vidal MD MPH LAB BLOOD ORDERABLES Final Re sult Performing Organization Address City/[facility] Co de Phone Number [facility] [address] [place] [address], * Magnesium (11/03/2024 12:56 AM EST) Only the most recent of2 resultswithin the time period is included. MG 2.3 1.6 - 2.4 mg/dL 11/03/2024 2:02 AM EST [facility] Blood Structure of peripheral vein / Unknown Venipuncture / Unknown 11/03/2024 12:56 AM EST 11/03/2024 1:26 AM EST us Catracho Vidal MD MPH LAB BLOOD ORDERABLES Final Re sult [facility] [address] [place] [address], [place] * Basic Metabolic Panel (11/03/2024 12:56 AM EST) Only the most recent of3 resultswithin the time period is included. NA 138 135 - 145 mmol/L 11/03/2024 2:02 AM EST [facility] K 3.9 3.5 - 5.3 mmol/L 11/03/2024 2:02 AM EST [facility] Cl 104 98 - 107 mmol/L 11/03/2024 2:02 AM EST [facility] CO2 24 22 - 32 mmol/L 11/03/2024 2:02 AM EST [facility] BUN 13 7 - 23 mg/dL 11/03/2024 2:02 AM EST [facility] Creatinine 0.70 0.50 - 1.20 mg/dL 11/03/2024 2:02 AM EST [facility] Glucose 94 65 - 99 mg/dL 11/03/2024 2:02 AM EST [facility] Calcium 8.7 8.6 - 10.5 mg/dL 11/03/2024 2:02 AM EST [facility] Anion Gap 10 5 - 15 11/03/2024 2:02 AM EST [facility] eGFR >90 >=60 mL/min/1. 73m2 11/03/2024 2:02 AM EST [facility] Comment:The estimated glomer [...] MPH LAB BLOOD ORDERABLES Final Re sult [facility] Organization Address City/State/ZIP Co de Phone Number [facility] [address] [place] [phone], [place] * COLONOSCOPY (08/05/2020) Narrative Procedure Note Catracho Vidal MD MPH - 08/05/2020 7:31 AM EST Gastroenterology Patient Name: Kirsten Ronquillo Procedure Date: 08/05/2020 7:31 AM Date of : 1955 Admit Type: Inpatient Age: 64 Room: [place] [address] Gender: Female Note Status: Finalized Attending MD: Catracho Vidal MD Procedure: Colonoscopy Indications: High risk colon cancer surveillance: Personal history of colonicpolyps Providers: Catracho Vidal MD (Doctor) Referring MD: Requesting Provider: Medicines: Monitored Anesthesia Care Complications: No immediate complications. Estimated Blood Loss: Estimated blood loss: none. Procedure: After I obtained informed consent, the scope was passed under direct vision. Throughout the procedure, the patient's blood pressure, pulse, and oxygen saturations were monitored continuously. The [id number] was introduced through the anus and advanced to the terminal ileum. The colonoscopy was technicallydifficult and complex due to a redundant colon. Successful completion of the procedure was aided by increasing the dose of sedation medication. The patient tolerated the procedure poorly due to the patient's inability to cooperate. The quality of the bowel preparation was inadequate. The bowel preparation used was Miralax. Findings: The digital rectal exam revealed a mobile rectal mass palpated 7 to 8cm from the anal verge. A 8 mm polyp was found in the mid ascending colon. The polyp was sessile. The polyp was removed with a hot snare. Resection andretrieval were complete. Estimated blood loss: none. A 9 mm polyp was found in the hepatic flexure. The polyp was semi-pedunculated. Unable to remove due to patient not being able to stay still despite increasing doses of propofol A 15 mm polyp was found in the rectum. The polyp was sessile.Recurrent at anastomosis. Not able to fully evaluate due to constant patinet movement and inability to maintain insufflation. Moderate Sedation: Moderate (conscious) sedation was personally administered by an anesthesia professional. The following parameters were monitored:oxygen saturation, heart rate, blood pressure, and response to care. Impression: - Preparation of the colon was inadequate. - Rectal mass 7 to 8 cm from the anal verge. - One 8 mm polyp in the mid ascending colon, removedwith a hot snare. Resected and retrieved. - One 9 mm polyp at the hepatic flexure. - One 15 mm polyp in the rectum. Recommendation: - Return to my office at appointment to be scheduled. - Repeat colonoscopy at appointment to be scheduled because the examination was incomplete. Catracho Vidal MD 08/05/2020 9:23:37 AM This report has been signed electronically. 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 08/03/2020 08/03/2020 Insurance * Guarantor: Kirsten Ronquillo Account Type Relation to Patient Date of Phone Billing Address Personal/Family Self [address] [place] [phone] [place] [address] MEDICARE Advance Directives Documents on File Type Date Recorded Patient Cook Barbecue Expl anation Advance Directive 07/05/2013 12:00 AM HCP Advance Directive 07/02/2013 12:00 AM sf M edical Dec Making (Adv.Dir) * Full Code (Latest Code Status on File) Date Activated Date Inactivated Comments 10/31/2024 11:29 PM 11/04/2024 7:40 PM * Full Code Date Activated Date Inactivated Comments 04/01/2024 1:45 PM 04/02/2024 4:08 PM * Full Code Date Activated Date Inactivated Comments 03/30/2024 2:45 PM 04/01/2024 1:45 PM * Full Code Date Activated Date Inactivated Comments 09/19/2022 3:51 PM 09/20/2022 3:51 PM * Full Code Date Activated Date Inactivated Comments 07/03/2021 6:42 PM 07/05/2021 7:52 PM Healthcare Agents on File Name Relationship Healthcare Agent Relationshi p Communication Isi Donna Friend Health Care Agent [phone] (Mobile) Care Teams Cosmetic Counselor Relationship Specialty Start Date End Date Sher Patrick [address] [place] [address] dr Jose Garcia, IDRIS [address] PCP - General 04/20/17
--- OUTSIDE RECORDS SUMMARY | 2024-11-28 15:38 | XMS_ITS | Clinical Summary ---
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 [...] [ ] AM BMP Small bowel obstruction 09/17/202209/02 Preoperative clearance 08/03/202008/06 Encounters Date Type Department Care Team Description 11/15/2024 Orders Only [facility] Colorectal Surgery [address] [place] [phone] Ruby Developer: Kori Mike, RN Colorectal cancer (HCC) (Primary Dx) 11/14/2024 Telephone [facility] Colorectal Surgery [address] [place] [address] Ruby Developer: Kori Mike, RN 11/04/2024 8:14 AM EST Anesthesia Event [facility] Operating Room [address] [place] [address] Sarah Chapa MD Prasad, Abhinav Vibhas, MD 11/04/2024 7:45 AM EST - 11/04/2024 10:15 AM EST Surgery [facility] Operating Room [address] [place] [phone] Catracho Vidal MD MPH TRANSANAL ENDOSCOPIC MICROSURGERY, possible TAMIS. with air seal [90580 (CPT??)] 10/31/2024 10:09 PM EST - 11/04/2024 5:34 PM EST Hospital Encounter [facility] Ground Unit [address] [place] [phone] Catracho Vidal MD MPH Anorectal polyp Discharge Disposition: Home or Self Care (01) 10/24/2024 Documentation [facility] [address] [place] [phone] Ruby Developer: Boyd Connors MD 10/23/2024 10:20 AM EST Follow-Up [facility] [address] [place] [phone] Ruby Developer: Boyd Connors MD Hyponatremia (Primary Dx) 09/10/2024 Documentation [facility] Colorectal Surgery [address] [place] [phone] Ruby Developer: Kori Mike, LAY 09/09/2024 Telephone [facility] [address] [place] [phone] Ruby Developer: Jamilah Fuller Telephone Intake, Staff PAC Labs Needed-; PAC Surgery/procedure Scheduling (colo) from Last 3 Months Immunizations Immunization Administration Dates Next Due Influenza, Injectable, Quadrivalent, Preservativ e Free 07/05/2021 Family History Medical History Relation Name Comments Diabetes Brother No Known Problems Father No Known Problems Mother Relation Name Status Comments Brother Father Mother Social History Tobacco Use Types Packs/Day Years Used Date Smoking Tobacco: Never Smokeless Tobacco: Never Tobacco Cessation:Counseling Given: Not Answered Alcohol Use Standard Drinks/Week Comments Never 0 (1 standard drink = 0.6 oz pur e alcohol) [facility] Utilities Answer Date Recorded In the past 12 months has th e [employer], gas, oil, or water [email or web address] threatened to shut off services in your [...] Description 05/02/2025 7:15 AM EDT Hospital Encounter [facility] Operating Room [address] [place] [phone] Catracho Vidal MD MPH [address] [place], [place] [phone] 05/05/2025 7:15 AM EDT - 05/05/2025 8:20 AM EDT Surgery [facility] Operating Room [address] [place] [address] Catracho Vidal MD MPH [address] [place] [address] Colonoscopy Screening, High Risk with Possible Moderate Sedation [22164 (CPT??)] Scheduled Procedures Name Priority Associated Diagnoses Date/Ti me COLONOSCOPY SCREENING, HIGH RISK WITH POSSIBLE MODERATE SEDATION Colorectal cancer (HCC) 05/05/2025 7:15 AM EDT Health Maintenance Due Date Last Done Comments Hepatitis C Screening 1955 Pneumococcal Vaccine: 50+ Years (1 of 2 - PCV) 1973 Zoster Vaccines (1 of 2) 1973 Mammogram 1994 Osteoporosis Screening 2004 RSV Vaccine (60+ years old and patients) (1 - Risk 60-74 years 1-dose series) 2014 DTaP,Tdap,and Td Vaccines (1 - Tdap) 08/18/2015 08/17/2015 Influenza Vaccine (#1) 2024 07/05/2021 COVID-19 Vaccine ( - season) 2024 04/18/2024, 12/02/2020, 11/04/2020 Colonoscopy 07/02/2024 04/01/2024, 09/01, 03/20/2023, Additional history exists Alcohol/Substance Use Screening 10/02/2024 Depression Evaluation 10/02/2024 Health Care Proxy Review 10/02/2024 Social Drivers of Health Annual Screening 10/02/2024 08/21/2024 Basic Metabolic Panel 11/03/2025 11/03/2024 , 11/02/2024, 10/23/2024, Additional history exists Hepatitis B Vaccines Aged Out No long er eligible based on patient's age to complete this topic Procedures * Due to [place] [employer] law, this organization might not be sharing negative HIV tests. Procedure Name Priority Date/Time Associated Diagnosis Comments TISSUE EXAM Routine 11/04/2024 10:00 AM EST Anorectal polyp WA EXCIS CHALAZION,GEN ANESTHESIA 11/04/2024 7:59 AM EST [...] to Health Maintenance Results * Due to [place] [employer] law, this organization might not be sharing negative HIV tests. 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 - See note Note: The fragmented nature of specimen precludes the evaluation of margin status. [facility] 11/05/2024 5:18 PM EST [facility] [employer] [facility] Clinical History Pre-op diagnosis: Anorectal polyp [K62.0, K62.1] [facility] MANUAL 11/05/2024 5:18 PM EST [facility] Gross Description 1. Anus [...] quadrisected 1G-1 fragment bisected 1H-smallest fragmented bisected [facility] MANUAL 11/05/2024 5:18 PM EST [facility] Gross Description User Grossing complete by Tootie Somers on 11/04/2024 3:24 PM [facility] MANUAL 11/05/2024 5:18 PM EST [facility] Embedded Images [facility] MANUAL 11/05/2024 5:18 PM EST [facility] [employer] [facility] Resulting Agency Case was signed out at [facility], Department of Pathology, [employer] [facility] [id number] [facility] MANUAL 11/05/2024 5:18 PM EST [facility] SERVICESDaktari [facility]ostics[facility] [employer] [facility] Report Header Surgical Pathology Report ? Case: [id number] ? Authorizing Provider: ??Catracho Vidal MD MPH ?Collected: ? 11/04/2024 1000 ? Ordering Location: ? [facility] ? Received: ?11/04/2024 1158 ? [facility] ? Operating Room ? Pathologist: ? Mirella Cai MD ? Specimen: ?Anus, rectal polyp ? 11/05/2024 5:18 PM EST [facility] Tissue Anal structure / Unknown 11/04/2024 10:00 AM EST 11/04/2024 11:58 AM EST Comment:Pre-op diagnosis: Anorectal polyp [K62.0, K62.1] us Catracho Vidal MD MPH LAB PATHOLOGY/CYTOLOGY ORDERA BLES Final Result [facility] [address] [place] [address], [facility] [address] [place] [address], * Phosphorus (11/03/2024 12:56 AM EST) Only the most recent of2 resultswithin the time period is included. Phosphorus 2.7 2.5 - 4.5 mg/dL 11/03/2024 2:02 AM EST [facility] Blood Structure of peripheral vein / Unknown Venipuncture / Unknown 11/03/2024 12:56 AM EST 11/03/2024 1:26 AM EST Catracho Vidal MD MPH LAB BLOOD ORDERABLES Final Re sult Performing Organization Address City/[facility]/ZIP Co de Phone Number [facility] [address] [place] [address], [place] * Magnesium (11/03/2024 12:56 AM EST) Only the most recent of2 resultswithin the time period is included. MG 2.3 1.6 - 2.4 mg/dL 11/03/2024 2:02 AM EST [facility] Blood Structure of peripheral vein / Unknown Venipuncture / Unknown 11/03/2024 12:56 AM EST 11/03/2024 1:26 AM EST Catracho Vidal MD MPH LAB BLOOD ORDERABLES Final Re sult Performing Organization Address City/[facility]/ZIP Co de Phone Number [facility] [address] [place] [address], [place] * Basic Metabolic Panel (11/03/2024 12:56 AM EST) Only the most recent of3 resultswithin the time period is included. NA 138 135 - 145 mmol/L 11/03/2024 2:02 AM EST [facility] K 3.9 3.5 - 5.3 mmol/L 11/03/2024 2:02 AM EST [facility] Cl 104 98 - 107 mmol/L 11/03/2024 2:02 AM [facility] CO2 24 22 - 32 mmol/L 11/03/2024 2:02 AM [facility] BUN 13 7 - 23 mg/dL 11/03/2024 2:02 AM EST [facility] Creatinine 0.70 0.50 - 1.20 mg/dL 11/03/2024 2:02 AM [facility] Glucose 94 65 - 99 mg/dL 11/03/2024 2:02 AM [facility] Calcium 8.7 8.6 - 10.5 mg/dL 11/03/2024 2:02 AM [facility] Anion Gap 10 5 - 15 11/03/2024 2:02 AM [facility] eGFR >90 >=60 mL/min/1. 73m2 11/03/2024 2:02 AM [facility] Comment:The estimated glomer ular [...] MPH LAB BLOOD ORDERABLES Final Re sult [facility] [address] [place] [address], [place] * COLONOSCOPY (08/05/2020) Narrative Procedure Note Catracho Vidal MD [facility] - 08/05/2020 7:31 AM EST Gastroenterology Patient Name: Kirsetn Ronquillo Procedure Date: 08/05/2020 7:31 AM Date of : 1955 Admit Type: Inpatient Age: 64 Room: [place] [address] Gender: Female Note Status: Finalized Attending MD: [...] and oxygen saturations were monitored continuously. 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
== END 2024-11-28 13:07 | disposition home or self-care (01) ==
LOC: HO.MAMMO 13:06
PROVIDERS: PCP Internal Medicine; Visit Provider Internal Medicine
DX: Z12.31 Encounter for screening mammogram for malignant neoplasm of breast (principal); Z13.820 Encounter for screening for osteoporosis; Z78.0 Asymptomatic menopausal state
CPT/HCPCS: 77063; 77067; 77080

== ENCOUNTER 2024-12-10 10:09 | Day surgery (SDC) | payer MEDICARE, MEDICAID, SELFPAY ==
--- NOTE | 2024-12-10 11:16 | MHC.SHP ---
Pre-Procedural Eval Section A - 24 Hr Update-Section A only Date of Service: 12/10/24 The patient is an INPATIENT: No Changes since office visit: No Cold of Flu in the past 2 weeks, No New Medical Problems, No Changes in Medication and No Patient answered all questions The patient has been examined within 24 hours of the surgical procedure. The History & Physical has been completed within 30 days and I have reviewed it.: Yes Section B - Complete if H&P > 30 days Chief Complaint: Carpal tunnel syndrome, left upper limb Allergies: Allergies Allergy/AdvReac Type Severity Reaction Status Date / Time adhesive tape Allergy Intermediate itching Verified 09/11/24 16:47 and skin redness latex Allergy Intermediate skin rash Verified 09/11/24 16:47 and itching Seasonal Allergies Allergy Itching Verified 09/11/24 16:47 weed pollen Allergy stuffy nose Verified 09/11/24 16:47 DUST Allergy Unknown ITCHY/WATERY Uncoded 09/11/24 16:47 EYES surgical paper tape Allergy Unknown rash Uncoded 09/11/24 16:47 Tide Allergy Unknown rash Uncoded 09/11/24 16:47 Plan Diagnosis/Plan: Unchanged I have reviewed the history and physical and performed a pertinent physical examination on my patient. No changes have occurred unless specified. Time Spent With Patient Time: Total time managing care of this patient today ____ minutes.
--- NOTE | 2024-12-10 11:16 | W.PM.OPN ---
Operative Note Operative Note Date of Service: 12/10/24 Narrative: Preop diagnosis: 1. Left Carpal tunnel syndrome Postop diagnosis: same Procedure: 1. Left Carpal tunnel release Surgeon: Mirna Delong MD Train Reservation Clerk: Floyd CAIN Anesthesia: local block using 1% lidocaine with epinephrine Findings: Thickened transverse carpal ligament. EBL: Less than 5 mL Specimens: None Complications: None Disposition: Brought to recovery room in stable condition Plan: Follow-up for 10-14 days for wound check and suture removal Indications: The patient is 69 years old, with intellectual disability and left carpal tunnel syndrome that has been unresponsive to nonoperative management. The risks and benefits of operative treatment including but not limited to risk of damage to blood vessels, nerves, tendons, infection, persistent pain, persistent symptoms, or possible need for additional surgery were discussed with the patient and the patient wishes to proceed with surgery. Procedure: Once consent was obtained a local block was performed using a combination of 1% lidocaine with epinephrine. The patient was then brought back to the operating suite and placed on the operative table in supine position. The left upper extremity was prepped and draped in a standard surgical fashion. Once assured that we had a good block, a 2.0 cm longitudinal incision was made centered over the carpal tunnel. The incision was made through the skin to the subcutaneous tissues using a #15 blade. Dissection was made down to the level of the transverse carpal ligament with care being taken to protect the palmar cutaneous nerve. Once the transverse carpal ligament was clearly visualized, a longitudinal incision was made in the transverse carpal ligament 1st using a #15 blade, then using tenotomy scissors under direct visualization. Care was taken to look for and protect the motor branch of the median nerve when seen in this area. Once satisfied with our carpal tunnel release the wound was copiously irrigated with normal saline and hemostasis was obtained with a brief period of local pressure. The skin edges were reapproximated with some 5.0 nylon suture material and a sterile dressing was applied. The patient appears to have tolerated the procedure well and with no complications. All digits were well vascularized at the conclusion of the case.
[2024-12-10 11:17] VITALS: BP 146/58; PULSE 48; RESP 16; TEMP 37.3; O2SAT 98; BMI 24.8
[2024-12-10 12:25] VITALS: BP 127/57; PULSE 52; RESP 18; TEMP 36.4; O2SAT 100
== END 2024-12-10 12:34 | disposition home or self-care (01) ==
PROVIDERS: PCP Internal Medicine; Visit Provider Orthopaedic Surgery
PROC: (CPT 64721; principal; 2024-12-10 13:30)
DX: G56.02 Carpal tunnel syndrome, left upper limb (principal); M19.90 Unspecified osteoarthritis, unspecified site; F81.9 Developmental disorder of scholastic skills, unspecified; F79 Unspecified intellectual disabilities; J30.2 Other seasonal allergic rhinitis; E89.0 Postprocedural hypothyroidism; E55.9 Vitamin D deficiency, unspecified; E05.90 Thyrotoxicosis, unspecified without thyrotoxic crisis or storm; Z85.038 Personal history of other malignant neoplasm of large intestine; Z86.19 Personal history of other infectious and parasitic diseases; Z91.040 Latex allergy status; L23.1 Allergic contact dermatitis due to adhesives
CPT/HCPCS: 64721; J0171; J2003

== ENCOUNTER → 2024-12-10 10:09 | Outpatient (BNV) | payer MEDICARE, MEDICAID, SELFPAY | PROVIDERS: PCP Internal Medicine; Visit Provider Orthopaedic Surgery | DX: G56.02 Carpal tunnel syndrome, left upper limb (principal) | CPT/HCPCS: 64721 ==

== ENCOUNTER 2024-12-17 11:46 | Outpatient (AMB) | payer MEDICARE, MEDICAID, SELFPAY ==
--- NOTE | 2024-12-17 11:53 | MHC.OFFVIS ---
Vital Signs 12/17/24 11:59 Height 5 ft 2 in Weight 135 lb BMI 24.7 Handedness Right Intake Visit Reasons: Po-Wound Check-Lt CTR 12/10/24 Intake Note: Kirsten is a 69 year old right hand dominant female who presents today with her residential staff for a post operative and wound check visit s/p Left Carpal tunnel release DOS: 12/10/24 w/ Dr Mirna Delong. She states that her symptoms has improved after surgery. Allergies adhesive tape Allergy (Intermediate, Verified 12/17/24 11:59) itching and skin redness latex Allergy (Intermediate, Verified 12/17/24 11:59) skin rash and itching Seasonal Allergies Allergy (Verified 12/17/24 11:59) Itching weed pollen Allergy (Verified 12/17/24 11:59) stuffy nose DUST Allergy (Unknown, Uncoded 09/11/24 16:47) ITCHY/WATERY EYES surgical paper tape Allergy (Unknown, Uncoded 09/11/24 16:47) rash Tide Allergy (Unknown, Uncoded 09/11/24 16:47) rash HPI HPI Po-Wound Check-Lt CTR 12/10/24: Details: Kirsten is a 69 year old right hand dominant female who presents today with her residential staff for a post operative and wound check visit s/p Left Carpal tunnel release DOS: 12/10/24 w/ Dr Mirna Delong. She states that her symptoms has improved after surgery. Patient states that she has no complaints or concerns, but wonders when she can return to her day program. [facility] Medical History Abnormal MRI Post-surgical hypothyroidism History of ESBL E. coli infection Toxic multinodular goiter Toxic multinodular goiter Vitamin D deficiency Hyperthyroidism Multinodular thyroid Colon cancer Lung mass Developmental delay, mild Arthritis Surgical History History of carpal tunnel surgery of right wrist Hx of total thyroidectomy History of biopsy Hx of colonic polyps Hx of colonoscopy Family History Father No problems noted. Mother Medical history unknown Social History Household Members: Caregiver Household Members Other:: gr home Housing: Other Housing Other:: skilled nursing Unable to assess alcohol history related to: Unknown Alcohol intake: never Patient Tobacco Use Status: Never used Tobacco e-Cigarette/Vaping Use: Never Used Second Hand Smoke Exposure: No Advance Directives Date on File: 01/05/21 service: No Current occupational status: disabled Current occupation: right handed Review of Systems Const All systems reviewed & are unremarkable except as noted in HPI and below Physical Exam Vital Signs: BMI result Body Mass Index 24.7 Extrem Other: Evaluation of left Upper Extremity: The patient is alert, oriented, and in no acute distress She has an intellectual handicap but was able to actively participate in her appointment today. She is a poor historian Neuro: Sensation intact to the median nerve distribution of the left Normal sensation of the tip of the bilateral small fingers No thenar or intrinsic wasting Vascular: Cap refill brisk ROM: She can make a fist and extend all her digits The incision site appears to be healing well. No purulence or drainage from the incision site No erythema or edema noted She can easily make a fist and extend all of her digits without discomfort. Assessment & Plan Assessment & Plan (1) Carpal tunnel syndrome of left wrist: Code(s): G56.02 - Carpal tunnel syndrome, left upper limb Category: Medical Plan 1. Status post L CTR DOS 12/10/24 Patient appears to be recovering well postoperatively Patient is educated about the typical recovery course Patient is educated that she can continue washing the incision with soap and water, but should avoid submerging Patient is educated she can return to the day program with a light dressing on her hand Patient is amenable to this plan Patient will f/u in one week for suture removal, sooner with any acute concerns Coding Level of Care Code Global (87765) Diagnoses Carpal tunnel syndrome of left wrist G56.02
[2024-12-17 11:59] VITALS: BMI 24.7
--- OUTSIDE RECORDS SUMMARY | 2024-12-17 14:13 | XMS_ITS | Encounter Summary ---
Author Organization [facility] Address [address] [place] [address] Care Team Providers Care Build Manager Name Role Phone Sher Patrick Primary Care Provider [phone] Reason for Visit * Reason Onset Date Comments Needs to reschedule 09/28/2020 Encounter Details Date Type Department Care Team (Late st Contact Info) Description 09/28/2020 Telephone [facility] Central Scheduling Department [address] [place] [address] Telephone Intake, Staff Needs to reschedule Social [...] Description 05/02/2025 7:15 AM EDT Hospital Encounter [facility] Operating Room [address] [place] [address] Catracho Vidal MD MPH [address] [place] [address] 05/05/2025 7:15 AM EDT - 05/05/2025 8:20 AM EDT Surgery [facility] Operating Room [address] [place] [address] Catracho Vidal MD MPH [address] [place] [address] Colonoscopy Screening, High Risk with Possible Moderate Sedation [40489 (CPT??)] Scheduled Procedures Name Priority Associated Diagnoses [...] documented as of this encounter Care Teams Build Manager Relationship Specialty Start Date End Date Sher Patrick [address] [place] [address] [place] [address] PCP - General 04/20/17 documented as of this encounter
--- OUTSIDE RECORDS SUMMARY | 2024-12-17 14:13 | XMS_ITS | Clinical Summary ---
Author Organization [facility] Address [address] [place] [address] Phone Care Team Providers Care Dynamic Balancer Name Role Phone Sher Patrick MD Primary Care Provider [phone] Allergies Active Allergy Reactions Criticality Noted Date [...] 10/05/2024 Telephone [facility] [address] [place] [address] Puneet Sesay MD 09/26/2024 3:15 PM EST Office Visit [facility] [address] [place] [phone] Puneet Sesay MD Hypo-osmolality and hyponatremia (Primary [...] topic Insurance MEDICARE MEDICAID [place] Care Teams Dynamic Balancer Relationship Specialty Start Date End Date Sher Patrick MD [address] [place], [place] PCP - General Internal Medicine 09/17/24
--- OUTSIDE RECORDS SUMMARY | 2024-12-17 14:14 | XMS_ITS | Referral Summary ---
Author Organization [facility] Address [address] [place] [address] Care Team Providers Care Oceanic Sciences Professor Name Role Phone Sher Patrick Primary Care Provider [phone] Encounters Date Type Department Care Team Description 11/15/2024 Orders Only [facility] Colorectal Surgery [address] [place] [address] [phone] Dry Sander: Kori Mike RN Colorectal cancer (HCC) (Primary Dx) 11/14/2024 Telephone [facility] Colorectal Surgery [address] [place] [address] 55480 Dry Sander: Kori Mike RN 11/04/2024 7:45 AM EST - 11/04/2024 10:15 AM EST Surgery [facility] Operating Room [address] [place] [address] [phone] Catracho Vidal MD MPH TRANSANAL ENDOSCOPIC MICROSURGERY, possible TAMIS. with air seal [43037 (CPT??)] 10/31/2024 10:09 PM EST - 11/04/2024 5:34 PM EST Hospital Encounter [facility] [address] [place] [address] [phone] Catracho Vidal MD MPH Anorectal polyp Discharge Disposition: Home or Self Care () 11/04/2024 8:14 AM EST Anesthesia Event [facility] Operating Room [address] [place] [address] 29667 Sarah Chapa MD Prasad, Ross Liriano MD 10/24/2024 Documentation [facility] [address] [place] [address] [phone] Dry Sander: Boyd Connors MD 10/23/2024 10:20 AM EST Follow-Up [facility] [address] [place] [address] 51683 Dry Sander: Boyd Connors MD Hyponatremia (Primary Dx) from Last 3 Months Allergies Active Allergy [...] 8:48:00 EST, Dry Weight 4 Active INV [id number] triamcinolone acetoniden 0.1% topical ointment Apply topically [...] hours as needed for pain. 5 Active Active Problems Problem Noted Date Diagnosed [...] Mood disorder 12/24/2020 Bipolar disorder with depression ([facility]) 12/24 Psychotic disorder 12/24/2020 Strabismic [...] [ ] AM BMP Small bowel obstruction 09/17/2022/ Preoperative clearance 08/03/202008/06 Immunizations Immunization Administration Dates Next Due Influenza, Injectable, Quadrivalent, Preservativ e Free 07/05/2021 Social History Tobacco Use Types Packs/Day Years Used Date Smoking Tobacco: Never Smokeless Tobacco: Never Tobacco Cessation:Counseling Given: Not Answered Alcohol Use Standard Drinks/Week Comments Never 0 (1 standard drink = 0.6 oz pur e alcohol) [facility] Utilities Answer Date Recorded In [...] Description 05/02/2025 7:15 AM EDT Hospital Encounter [facility] Operating Room [address] [phone] Catracho Vidal MD MPH [address] [place] [address] 05/05/2025 7:15 AM EDT - 05/05/2025 8:20 AM EDT Surgery [facility] Operating Room [address] [place] [address] Catracho Vidal MD MPH [address] [place] [address] Colonoscopy Screening, High Risk with Possible Moderate Sedation [25000 (CPT??)] Scheduled Procedures Name Priority Associated Diagnoses Date/Ti me COLONOSCOPY SCREENING, HIGH RISK WITH POSSIBLE MODERATE SEDATION Colorectal cancer (HCC) 05/05/2025 7:15 AM EDT Procedures * Due to [place] [employer] law, this organization might not be sharing negative HIV tests. Procedure Name Priority Date/Time Associated Diagnosis Comments TISSUE EXAM Routine 11/04/2024 10:00 AM EST Anorectal polyp UT EXCIS CHALAZION,GEN ANESTHESIA 11/04/2024 7:59 AM EST [...] to Health Maintenance Results * Due to [place] state law, this organization might not be sharing negative HIV tests. 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 - See note Note: The fragmented nature of specimen precludes the evaluation of margin status. [facility] MANUAL 11/05/2024 5:18 PM EST [facility] [employer] [facility] at 1718 EST Clinical History Pre-op diagnosis: Anorectal polyp [K62.0, K62.1] [facility] 11/05/2024 5:18 PM EST [facility] Gross Description 1. [...] quadrisected 1G-1 fragment bisected 1H-smallest fragmented bisected [facility]UAL 11/05/2024 5:18 PM EST [facility] Gross Description User Grossing complete by Tootie Somers on 11/04/2024 3:24 PM [facility]UAL 11/05/2024 5:18 PM EST [facility] Embedded Images [facility] 11/05/2024 5:18 PM EST [facility] [employer] [facility] Resulting Agency Case was signed out at [facility], Department of Pathology, [employer] 3 CLIA [id number] [facility] MANUAL 11/05/2024 5:18 PM EST [facility] [employer] [facility] Report Header Surgical Pathology Report ? Case: [id number] ? Authorizing Provider: ??Catracho Vidal MD MPH ?Collected: ? 11/04/2024 1000 ? Ordering Location: ? [facility] ? Received: ?11/04/2024 1158 ? [facility] ? Operating Room ? Pathologist: ? Mirella Cai MD ? Specimen: ?Anus, rectal polyp ? 11/05/2024 5:18 PM EST [facility] Tissue Anal structure / Unknown 11/04/2024 10:00 AM EST 11/04/2024 11:58 AM EST Comment:Pre-op diagnosis: Anorectal polyp [K62.0, K62.1] Catracho Vidal MD MPH LAB PATHOLOGY/CYTOLOGY ORDERA BLES Final Result Performing Organization Address City/[facility]/ZIP Co de Phone Number [facility] [address] [place] [address], [facility] [address] [place] [address], [place] * Phosphorus (11/03/2024 12:56 AM EST) Only the most recent of2 resultswithin the time period is included. Phosphorus 2.7 2.5 - 4.5 mg/dL 11/03/2024 2:02 AM EST [facility] Blood Structure of peripheral vein / Unknown Venipuncture / Unknown 11/03/2024 12:56 AM EST 11/03/2024 1:26 AM EST Catracho Vidal MD MPH LAB BLOOD ORDERABLES Final Re sult Performing Organization Address [facility] Co de Phone Number [facility] [address] [place] [address], [place] * Magnesium (11/03/2024 12:56 AM EST) Only the most recent of2 resultswithin the time period is included. MG 2.3 1.6 - 2.4 mg/dL 11/03/2024 2:02 AM EST [facility] Blood Structure of peripheral vein / Unknown Venipuncture / Unknown 11/03/2024 12:56 AM EST 11/03/2024 1:26 AM EST Catracho Vidal MD MPH LAB BLOOD ORDERABLES Final Re sult Performing Organization Address [facility] Co de Phone Number [facility] [address] [place] [address], [place] * Basic Metabolic Panel (11/03/2024 12:56 AM EST) Only the most recent of3 resultswithin the time period is included. NA 138 135 - 145 mmol/L 11/03/2024 2:02 AM [facility] K 3.9 3.5 - 5.3 mmol/L 11/03/2024 2:02 AM EST [facility] Cl 104 98 - 107 mmol/L 11/03/2024 2:02 AM [facility] CO2 24 22 - 32 mmol/L 11/03/2024 2:02 AM [facility] BUN 13 7 - 23 mg/dL 11/03/2024 2:02 AM [facility] Creatinine 0.70 0.50 - 1.20 mg/dL 11/03/2024 2:02 AM [facility] Glucose 94 65 - 99 mg/dL 11/03/2024 2:02 AM [facility] Calcium 8.7 8.6 - 10.5 mg/dL 11/03/2024 2:02 AM [facility] Anion Gap 10 5 - 15 11/03/2024 2:02 AM [facility] eGFR >90 >=60 mL/min/1. 73m2 11/03/2024 2:02 AM [facility] Comment:The estimated glomer ular filtration rate (eGFR) is calculated using a new formula developed by the NKF-ASN task force to eliminate race-based correction factors. The new formula uses serum/plasma creatinine, age, and gender to determine eGFR. A value below 60mls/min might indicate kidney disease and will be flagged. For additional information, see Yimi siddiqui al, Am J Kidney Dis. 2021;79(2):268- 288, A Unifying Approach for GFR estimation: Recommendations of the NKF-ASN Task Force on Reassessing the Inclusion of Race in Diagnosing Kidney Disease . Blood Structure of peripheral vein / Unknown Venipuncture / Unknown 11/03/2024 12:56 AM EST 11/03/2024 1:26 AM EST us Catracho Vidal MD MPH LAB BLOOD ORDERABLES Final Re sult [facility] Organization Address City/State/ZIP Mi de Phone Number [facility] [address] [place] [address], [place] * COLONOSCOPY (08/05/2020) Narrative Procedure Note Catracho Vidal MD MPH - 08/05/2020 7:31 AM EST Gastroenterology Patient Name: Kirsten Ronquillo Procedure Date: 08/05/2020 7:31 AM Date of : 1955 Admit Type: Inpatient Age: 64 Room: [place] [address] Gender: Female Note Status: Finalized Attending MD: [...] and oxygen saturations were monitored continuously. 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
--- OUTSIDE RECORDS SUMMARY | 2024-12-17 14:14 | XMS_ITS | Data Portability ---
Author Organization [place] - [facility], Allergy Address [address] [address] Assessment Encounter Date Assessment Date Assessment LastModified by Organization Details LastModified Time 04/22/2024 04/22/2024 Incidental finding of right parapharyngeal lesion is partially visualized on previous MRI. Recommend further imaging with MRI neck with and without contrast and then likely referral to [facility] for discussion of surgical intervention. 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 Requested to share results with Patricia Villavicencio RN [phone] [email or web address] Not available 04/22/2024 11:08:51 Plan of Treatment Reminders Order Date Submit Date Provider Last Modified By Organization Details Last Modified Time Details Appointments None recorded. Lab None recorded. Referral None recorded. Procedures None recorded. Surgeries None recorded. Imaging MRI, neck, w/wo contrast - followup of right parapharyn geal lesion 2023 024 [facility] [place], [address], [address], 11:29:49 Medication Orders None recorded. Patient TargetsNo targets recorded. Patient InstructionsNo instructions recorded. Reason for Referral None Reported. Results Created Date Observation Date Name Description Value Unit Range Abnormal Flag Note LastModifiedBy Organization Detail LastModifiedTime 05/01/20 24 04/30/2024 MRI, neck, w/ contr ast No observ ation record ed. [email or web address] [facility] [place] [address], [place], [address], 05/01/2024 10:09:56 05/01/20 24 04/30/2024 MRI, neck, w/ contr ast No observ ation record ed. [email or web address] [facility] [place] [address], [place], [address], 05/01/2024 10:09:56 12/16/19 25 12/13/2024 MRI, neck, w/o contr ast No observ ation record ed. [email or web address] [facility] [place] [address], [place], [address], 12/17/2024 13:54:45 Result Notes None recorded. Problems Name Problem SNOMED Code Status Onset Date Resolution Date Notes Provider Name and Address Organization Details Recorded Time Sensorine ural hearing loss of bilateral ears 467031647 Active 2014 Sensorine ural HL, bilateral ; Note: Date Diagnosed : 11/20/2014 4:41 PM (389.18) Note: Date Diagnosed : 11/20/2014 4:41 PM (389.18) Not Available [facility] 4 01:02:50 Impacted cerumen of bilateral ears 21916304041 15787 Active 2016 Impacted cerumen, bilateral ; Note: Date Diagnosed : 11/29/2016 11:26 AM (H61.23) Note: Date Diagnosed : 11/29/2016 11:26 AM (H61.23) Not Available [facility] 4 01:02:50 Abnormal auditory perceptio n 25358913 Active 2018 Abnormal auditory perceptio n, unspecifi ed; Note: Date Diagnosed : 11/20/2014 5:39 PM (388.40) Note: Date Diagnosed : 11/20/2014 5:39 PM (388.40) ; Start Date : 5 Other abnormal auditory perceptio ns, bilateral ; Note: Date Diagnosed : 12/06/2018 1:15 PM (H93.293) Note: Date Diagnosed : 12/06/2018 1:15 PM (H93.293) Not Available [facility] 4 01:02:51 Impacted cerumen 26917561 Active 2014 Impacted cerumen; CMS Risk: low [...] : 11/20/2014 5:40 PM (380.4) Not Available [facility] 01:02:54 Mass of paraphary ngeal space 59116372553 245100 Active 2023 MIKAEL DORMAN MD [address] [place] [address], [phone] , [place] - [facility] 09:11:36 Problem Notes None recorded. Procedures Surgical History Date Name Laterality Status Provider Name and Address Organization Details Recorded Time 04/22/2024 FOL_DP completed MIKAEL DORMAN MD [address] [place] [address], [place], [address], [place] - [facility] 04/22/2024 11:07:34 Imaging Results Imaging Date Name Status LastModified by Organiz ation Details LastModified Time 04/30/2024 MRI, neck, w/ contrast completed [email or web address] [facility] [address], [address], 05/01/2024 10:09:56 04/30/2024 MRI, neck, w/ contrast completed [email or web address] [facility] [address], [address], 05/01/2024 10:09:56 12/13/2024 MRI, neck, w/o contrast active [email or web address] [facility] [address], [address], 12/17/2024 13:54:45 Procedure Notes None recorded. Medical Equipment None Reported. Allergies Allergen ID Allergen Name Allergen Category Reaction Reaction Severity Criticality Documentation Date Start Date Code Code System Note Provider Name and Address Organization Details Recorded Time 922778 latex environme nt,medica tion Not available Not available Not available 04/22/2024 13522 91 RxNorm Su ceja [place] - [facility] 4 10:59:19 Medications Name Sig Start Date Stop Date Status Note LastModified by Organization Details LastModified Time doxycycli ne hyclate 100 mg capsule 04/22 completed Medicatio n ID: [id number] Dur ation Value: 10 Brand Name: doxycycli ne hyclate S end Method: E-Prescri bed Subs Allowed: subs OK Specia l Instructi on: TAKE ONE CAPSULE BY MOUTH TWICE A DAY Medic ationGene ricName: doxycycli ne hyclate M edication ID: [id number] Dur ation Value: 10 Brand Name: doxycycli ne hyclate S end Method: E-Prescri bed Subs Allowed: subs OK Specia l Instructi on: TAKE ONE CAPSULE BY MOUTH TWICE A DAY Medic ationGene ricName: doxycycli ne hyclate Not Available Not Available Not Available acetamino phen 300 mg-codein e 30 mg tablet 2014 active Medicatio n ID: [id number] Dur ation Value: 4 Brand Name: acetamino phen-code ine Send Method: E-Prescri bed Subs Allowed: subs OK Specia l Instructi on: TAKE 1 TABLET BY MOUTH EVERY 6 HOURS NEEDED FOR PAIN Medi cationGen ericName: acetamino phen-code ine Medic ation ID: [id number] Dur ation Value: 4 Brand Name: acetamino phen-code ine Send Method: E-Prescri bed Subs Allowed: subs OK Specia l Instructi on: TAKE 1 TABLET BY MOUTH EVERY 6 HOURS NEEDED FOR PAIN Medi cationGen ericName: acetamino phen-code ine Not Available Not Available Not Available theophyll ine ER 300 mg tablet,ex tended release,1 2 hr 04/22 completed Medicatio n ID: [id number] Dur ation Value: 90 Brand Name: theophyll ine Send Method: E-Prescri bed Subs Allowed: subs OK Specia l Instructi on: TAKE 1 TABLET BY MOUTH EVERY DAY Medic ationGene ricName: theophyll ine Medic ation ID: [id number] Dur ation Value: 90 Brand Name: theophyll [...] mg capsule 04/22 completed Medicatio n ID: [id number] Dur ation Value: 90 Brand Name: flaxseed oil Send Method: E-Prescri bed Subs Allowed: subs OK Specia l Instructi on: TAKE 2-3 CAPSULES BY MOUTH DAILY Med icationGe nericName : flaxseed oil Medic ation ID: [id number] Dur ation Value: 90 Brand Name: flaxseed oil Send Method: E-Prescri bed Subs Allowed: subs OK Specia l Instructi on: TAKE 2-3 CAPSULES BY MOUTH DAILY Med icationGe nericName : flaxseed oil Not Available Not Available Not Available mupirocin 2 % topical ointment 04/22 completed Medicatio n ID: [id number] Dur ation Value: 7 Brand Name: mupirocin Send Method: E-Prescri bed Subs Allowed: subs OK Specia l Instructi on: APPLY A SMALL AMOUNT TO AFFECTED AREA THREE TIMES A DAY Medic ationGene ricName: mupirocin Medicati on ID: [id number] Dur ation Value: 7 Brand Name: mupirocin Send Method: E-Prescri bed Subs Allowed: subs OK Specia l Instructi on: APPLY A SMALL AMOUNT TO AFFECTED AREA THREE TIMES A DAY Medic ationGene ricName: mupirocin Not Available Not Available Not Available polyethyl mesfin glycol 3350 17 gram/dose oral powder 04/22 completed Medicatio n ID: [id number] Dur ation Value: 30 Brand Name: polyethyl mesfin glycol 3350 Send Method: E-Prescri bed Subs Allowed: subs OK Specia l Instructi on: DISSOLVE 1 CAPFULE IN 4-8 OZ OF LIQUID DAILY NEEDED Me dicationG enericNam e: polyethyl mesfin glycol 3350 Medi cation ID: [id number] Dur ation Value: 30 Brand Name: polyethyl mesfin glycol 3350 Send Method: E-Prescri bed Subs Allowed: subs OK Specia l Instructi on: DISSOLVE 1 CAPFULE IN 4-8 OZ OF LIQUID DAILY NEEDED Me dicationG enericNam e: polyethyl mesfin glycol 3350 Not Available Not Available Not Available imipramin e 25 mg tablet 04/22 completed Medicatio n ID: [id number] Dur ation Value: 30 Brand Name: imipramin e HCl Send Method: E-Prescri bed Subs Allowed: subs OK Specia l Instructi on: TAKE 1 TABLET BY MOUTH EVERY MORNING AND 3 TABLETS EVERY EVENING M edication GenericNa me: imipramin e HCl Medic ation ID: [id number] Dur ation Value: 30 Brand Name: imipramin e HCl Send Method: E-Prescri bed Subs Allowed: subs OK Specia l Instructi on: TAKE 1 TABLET BY MOUTH EVERY MORNING AND 3 TABLETS EVERY EVENING M edication GenericNa me: imipramin e HCl Not Available Not Available Not Available loratadin e 10 mg tablet 2014 active Medicatio n ID: [id number] Dur ation Value: 30 Brand Name: loratadin e Send Method: E-Prescri bed Subs Allowed: subs OK Specia l Instructi on: TAKE 1 TABLET BY MOUTH DAILY Med icationGe nericName : loratadin e Medicat ion ID: [id number] Dur ation Value: 30 Brand Name: loratadin e Send Method: E-Prescri bed Subs Allowed: subs OK Specia l Instructi on: TAKE 1 TABLET BY MOUTH DAILY Med icationGe nericName : loratadin e Not Available Not Available Not Available Abilify 15 mg tablet 2014 active Medicatio n ID: [id number] Dur ation Value: 90 Brand Name: Abilify S end Method: E-Prescri bed Subs Allowed: subs OK Specia l Instructi on: TAKE 1 TABLET BY MOUTH EVERY MORNING M edication GenericNa me: Abilify M edication ID: [id number] Dur ation Value: 90 Brand Name: Abilify S end Method: E-Prescri bed Subs Allowed: subs OK Specia l Instructi on: TAKE 1 TABLET BY MOUTH EVERY MORNING M edication GenericNa me: Abilify Not Available Not Available Not Available Vesicare 5 mg tablet 2014 [place] Medicatio n ID: [id number] Dur ation Value: 90 Brand Name: Vesicare Send Method: E-Prescri bed Subs Allowed: subs OK Specia l Instructi on: TAKE 1 TABLET BY MOUTH EVERY MORNING M edication GenericNa me: Vesicare Medicatio n ID: [id number] Dur ation Value: 90 Brand Name: Vesicare Send Method: E-Prescri bed Subs Allowed: subs OK Specia l Instructi on: TAKE 1 TABLET BY MOUTH EVERY MORNING M edication GenericNa me: Vesicare Not Available Not Available Not Available Cogentin 04/22 completed Medicatio n ID: [id number] Br and Name: cogentin Send Method: E-Prescri bed Subs Allowed: subs OK Medica tionGener icName: cogentin Medicatio n ID: [id number] Br and Name: cogentin Send Method: E-Prescri [...] Note [id number] MIKAEL DORMAN MD [facility] [address] [address] 04/22/2024 10:32:31 04/22/2024 11:17:22 Mass of parapharyngeal space [id number] R22.1 Health Concerns Section Related Observation LastModified by Organization Detai ls LastModified Time None Recorded Concern Status LastModified by Organization Details LastModified Time None Recorded Advance Directives Directive None Recorded Payers Encounter Date Sequence Insurance Name Policy Number Policy Cobb Covered Member ID Cobb Member ID Guarantor Name 04/22/2024 2 [place] [facility] Kirsten Ramesh Shima [id number] Kirstencarolyn Ronquillo 04/22/2024 1 MEDICARE B-[place]: [facility] [employer] Kirsten Ramesh Shima [id number] Kirsten Ronquillo Notes Date Note Type Note Provider Name [...] thyroidectomy in October 2023 MIKAEL DORMAN MD [address] [place] [address], [phone], [facility] - [facility] 04/22/2024 11:11:35 OBGyn Episode No OBEpisode recorded.
--- OUTSIDE RECORDS SUMMARY | 2024-12-17 14:14 | XMS_ITS | Clinical Summary ---
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 [...] ] AM BMP Small bowel obstruction 09/17/2022 122 Preoperative clearance 08/03/202008/06 Encounters Date Type Department Care Team Description 11/15/2024 Orders Only [facility] Colorectal Surgery [address] [place] [phone] Gold Blower: Kori Mike RN Colorectal cancer (HCC) (Primary Dx) 11/14/2024 Telephone [facility] Colorectal Surgery [address] [place] [phone] Gold Blower: Kori Mike RN 11/04/2024 8:14 AM EST Anesthesia Event [facility] Operating Room [address] [place] [address]17 Sarah Chapa MD Prasad, Abhinav Vibhas, MD 11/04/2024 7:45 AM EST - 11/04/2024 10:15 AM EST Surgery [facility] Operating Room [address] [place] [address]391 Catracho Vidal MD MPH TRANSANAL ENDOSCOPIC MICROSURGERY, possible TAMIS. with air seal [09684 (CPT??)] 10/31/2024 10:09 PM EST - 11/04/2024 5:34 PM EST Hospital Encounter [facility] Unit [address] [place] [id number] Catracho Vidal MD MPH Anorectal polyp Discharge Disposition: Home or Self Care (01) 10/24/2024 Documentation [facility] [address] [place] [id number] Gold Blower: Boyd Connors MD 10/23/2024 10:20 AM EST Follow-Up [facility] [address] [place] [address] [id number] Gold Blower: Boyd Connors MD Hyponatremia (Primary Dx) from Last 3 Months Immunizations Immunization Administration [...] Description 05/02/2025 7:15 AM EDT Hospital Encounter [facility] Operating Room [address] [place] [address] Catracho Vidal MD MPH [address] [place], [place] [id number] 05/05/2025 7:15 AM EDT - 05/05/2025 8:20 AM EDT Surgery [facility] Operating Room [address] [place] [address] Catracho Vidal MD MPH [address] [place] [address] Colonoscopy Screening, High Risk with Possible Moderate Sedation [63633 (CPT??)] Scheduled Procedures Name Priority Associated Diagnoses Date/Ti me COLONOSCOPY SCREENING, HIGH RISK WITH POSSIBLE MODERATE SEDATION Colorectal cancer (HCC) 05/05/2025 7:15 AM EDT Health Maintenance Due Date Last Done Comments Hepatitis C Screening 1955 Medicare AWV 1956 Pneumococcal Vaccine: 50+ Years (1 of 2 - PCV) 1973 Zoster Vaccines (1 of 2) 1973 Mammogram 1994 Osteoporosis Screening 2004 RSV Vaccine (60+ years old and patients) (1 - Risk 60-74 years 1-dose series) 2014 DTaP,Tdap,and Td Vaccines (1 - Tdap) 08/18/2015 08/17/2015 Influenza Vaccine (#1) 2024 07/05/2021 COVID-19 Vaccine ( season) 2024 04/18/2024, 12/02/2020, 11/04/2020 Colonoscopy 07/02/2024 04/01/2024, 09/01, 03/20/2023, Additional history exists Alcohol/Substance Use Screening 10/02/2024 Depression Screening and Follow-Up 10/02/2024 Health Care Proxy Review 10/02/2024 Social Drivers of Health Annual Screening 10/02/2024 Basic Metabolic Panel 11/03/2025 11/03/2024 , 11/02/2024, 10/23/2024, Additional history exists Hepatitis B Vaccines Aged Out No long er eligible based on patient's age to complete this topic Procedures * Due to [place] state law, this organization might not be sharing negative HIV tests. Procedure Name Priority Date/Time Associated Diagnosis Comments TISSUE EXAM Routine 11/04/2024 10:00 AM EST Anorectal polyp LA EXCIS CHALAZION,GEN ANESTHESIA 11/04/2024 7:59 AM EST [...] to Health Maintenance Results * Due to [place] [employer] law, this organization might not be sharing negative HIV tests. 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 - See note Note: The fragmented nature of specimen precludes the evaluation of margin status. [facility] 11/05/2024 5:18 PM EST [facility] at 1718 EST Clinical History Pre-op diagnosis: Anorectal polyp [K62.0, K62.1] [facility] 11/05/2024 5:18 PM EST [facility] Gross Description 1. Derik The specimen is received fresh previously unattached [...] quadrisected 1G-1 fragment bisected 1H-smallest fragmented bisected [facility] MANUAL 11/05/2024 5:18 PM EST [facility] Gross Description User Grossing complete by Tootie Somers on 11/04/2024 3:24 PM [facility] MANUAL 11/05/2024 5:18 PM EST [facility] Embedded Images [facility] MANUAL 11/05/2024 5:18 PM EST [facility] [employer] [facility] Resulting Agency Case was signed out at [facility], Department of Pathology, [employer] 3 [place] [id number] [facility] MANUAL 11/05/2024 5:18 PM EST [facility] [employer] [facility] Report Header Surgical Pathology Report ? Case: [id number] ? Authorizing Provider: ??Catracho Vidal MD MPH ?Collected: ? 11/04/2024 1000 ? Ordering Location: ? [facility] ? Received: ?11/04/2024 1158 ? [facility] ? Operating Room ? Pathologist: ? Mirella Cai MD ? Specimen: ?Anus, rectal polyp ? 11/05/2024 5:18 PM EST [facility] Tissue Anal structure / Unknown 11/04/2024 10:00 AM EST 11/04/2024 11:58 AM EST Comment:Pre-op diagnosis: Anorectal polyp [K62.0, K62.1] us Catracho Vidal MD MPH LAB PATHOLOGY/CYTOLOGY ORDERA BLES Final Result [facility] [employer] [facility] [address] [place] [address], [facility] [address] [place] [address], * Phosphorus (11/03/2024 12:56 AM EST) Only the most recent of2 resultswithin the time period is included. Phosphorus 2.7 2.5 - 4.5 mg/dL 11/03/2024 2:02 AM EST [facility] Blood Structure of peripheral vein / Unknown Venipuncture / Unknown 11/03/2024 12:56 AM EST 11/03/2024 1:26 AM EST Catracho Vidal MD MPH LAB BLOOD ORDERABLES Final Re sult Performing Organization Address City/[facility] Co de Phone Number [facility] [address] [place] [address], [place] * Magnesium (11/03/2024 12:56 AM EST) Only the most recent of2 resultswithin the time period is included. MG 2.3 1.6 - 2.4 mg/dL 11/03/2024 2:02 AM EST [facility] Blood Structure of peripheral vein / Unknown Venipuncture / Unknown 11/03/2024 12:56 AM EST 11/03/2024 1:26 AM EST Catracho Vidal MD MPH LAB BLOOD ORDERABLES Final Re sult Performing Organization Address City/[facility] Co de Phone Number [facility] [address] [place] [address], [place] * Basic Metabolic Panel (11/03/2024 12:56 AM EST) Only the most recent of3 resultswithin the time period is included. NA 138 135 - 145 mmol/L 11/03/2024 2:02 AM EST [facility] K 3.9 3.5 - 5.3 mmol/L 11/03/2024 2:02 AM EST [facility] Cl 104 98 - 107 mmol/L 11/03/2024 2:02 AM EST [facility] CO2 24 22 - 32 mmol/L 11/03/2024 2:02 AM EST [facility] BUN 13 7 - 23 mg/dL 11/03/2024 2:02 AM EST [facility] Creatinine 0.70 0.50 - 1.20 mg/dL 11/03/2024 2:02 AM EST [facility] Glucose 94 65 - 99 mg/dL 11/03/2024 2:02 AM EST [facility] Calcium 8.7 8.6 - 10.5 mg/dL 11/03/2024 2:02 AM EST [facility] Anion Gap 10 5 - 15 11/03/2024 2:02 AM EST [facility] eGFR >90 >=60 mL/min/1. 73m2 11/03/2024 2:02 AM EST [facility] Comment:The estimated glomer [...] MPH LAB BLOOD ORDERABLES Final Re sult [facility] [address] [place] [address], * COLONOSCOPY (08/05/2020) Narrative Procedure Note Catracho Vidal MD MPH - 08/05/2020 7:31 AM EST Gastroenterology Patient Name: Kirsten Ronquillo Procedure Date: 08/05/2020 7:31 AM Date of : 1955 Admit Type: Inpatient Age: 64 Room: [place] [address] Gender: Female Note Status: Finalized Attending MD: [...] and oxygen saturations were monitored continuously. The [id number] was introduced through the anus and advanced [...] 0 Note Initiated On: 08/05/2020 7:31 AM us Catracho Vidal MD MPH PROVATION PROCEDURES Final Re sult from Last 3 Months or Most Recently Relevant to Health Maintenance Additional Health Concerns Infection Onset Date Last Indicated Multidrug resistant organism s ESBL Comment:ESBL E.coli 08/03/2020 08/03/2020 Insurance [facility] MEDICARE Advance Directives Documents on File Type Date Recorded Patient Manager Requirements Expl anation Advance Directive 07/05/2013 12:00 AM [...] Care Agent [phone] (Mobile) Care Teams Asbestos Siding Mechanic Relationship Specialty Start Date End Date Sher Patrick [address] [place] [address] dr Jose Garcia, IDRIS [id number] PCP - General 04/20/17
== END 2024-12-17 12:17 | disposition home or self-care (01) ==
LOC: HO.HOS 11:46
PROVIDERS: PCP Internal Medicine
DX: G56.02 Carpal tunnel syndrome, left upper limb (principal)
CPT/HCPCS: 99024

== ENCOUNTER → 2024-12-17 11:46 | Outpatient (BNVA) | payer MEDICARE, MEDICAID, SELFPAY | PROVIDERS: PCP Internal Medicine | DX: Z48.811 Encounter for surgical aftercare following surgery on the nervous system (principal); Z98.890 Other specified postprocedural states | CPT/HCPCS: 99212 ==

== ENCOUNTER 2024-12-19 11:14 | Outpatient (AMB) | payer MEDICARE, MEDICAID, SELFPAY ==
[2024-12-19 11:26] VITALS: BP 122/80; PULSE 66; RESP 14; TEMP 36.4; O2SAT 98; BMI 25.1
--- NOTE | 2024-12-19 11:26 | A.OFFPC_ITS ---
Vital Signs 12/19/24 11:26 Height 5 ft 2 in Weight 137 lb BMI 25.1 BP 122/80 Respiration 14 Pulse 66 Pulse Source Pulse Oximeter Temp 97.6 F Temp Source Temporal Artery Scan Pulse Oximetry (%) 98 Oxygen Delivery Method Room Air Intake Visit Reasons: Routine Software Designer Required: No Accompanied by: retirement staff Allergies adhesive tape Allergy (Intermediate, Verified 12/19/24 11:26) itching and skin redness latex Allergy (Intermediate, Verified 12/19/24 11:26) skin rash and itching Seasonal Allergies Allergy (Verified 12/19/24 11:26) Itching weed pollen Allergy (Verified 12/19/24 11:26) stuffy nose DUST Allergy (Unknown, Uncoded 12/19/24 11:26) ITCHY/WATERY EYES surgical paper tape Allergy (Unknown, Uncoded 12/19/24 11:26) rash Tide Allergy (Unknown, Uncoded 12/19/24 11:26) rash Medication List - Last Reconciled 12/19/24 by Tootie Shannon MD acetaminophen 500 mg PO Q6H PRN ascorbic acid (vitamin C) (Vitamin C) 500 mg PO BID aspirin 81 mg PO DAILY Balmex (petrolatum) 51.1% (white petrolatum) 1 appl topical BID-TID PRN NS betamethasone dipropionate 0.05% 1 appl topical BID PRN carbamazepine 400 mg (2 x 200 mg) PO BEDTIME carbamazepine 200 mg PO DAILY dextromethorphan-guaifenesin 5-100 mg/5 mL 10 mL PO Q6H PRN docusate sodium 100 mg PO BID donepezil 5 mg PO BEDTIME ferrous sulfate (FeroSul) 325 mg oral once daily on Mon, Wed, Fri ibuprofen 400 mg PO Q6H PRN Icy Hot Pain Relieving 2.5% (menthol) 1 appl topical BID NS levothyroxine 200 mcg PO QAM levothyroxine 200 mcg PO DAILY loratadine 10 mg PO DAILY melatonin 10 mg PO BEDTIME methenamine hippurate 1 g PO BID methyl salicylate-menthol 30-10 % (Icy Hot) 1 appl topical BID PRN multivitamin 1 tab PO DAILY nystatin 1 appl topical BID PRN nystatin 1 appl topical BID PRN polyethylene glycol 3350 (Miralax) 8.5 grams PO DAILY PRN quetiapine 50 mg PO TID sennosides (Senna Lax) 8.6 mg PO Q48H tamsulosin 0.4 mg PO Q24H trazodone 100 mg PO BEDTIME triamcinolone acetonide 0.1% 1 appl topical BID PRN zinc oxide-vitamin B5-vit E 11.3 % (Balmex Adult Care) 1 appl topical BID Tobacco use date assessed: 12/19/24 Dental Screening Dental Screen Date: 12/19/24 Did you have a dental visit in the last 12 months?: Yes Did you have a dental problem in the last 6 months where you did not have access to dental care?: No HPI HPI Comments History of Present Illness Details 69-year-old female with a PMH significan t for toxic multinodular goiter, hypothyroidism, hx of colon cancer s/p colectomy with anastomosis, hx of ESBL E coli UTI, lung mass, and developmental delay who initially presenting for follow up Lives in a retirement. Needs all medications refilled TMG-followed by endocrinology. Saw Dr Welch in Fall 2023. BH: Follow with psychiatry. Dr Randall CTS following with orthopedics Urology: follows with urology ROS CONSTITUTIONAL: Denies weight loss, fever and chills. HEENT: Denies changes in vision and hearing. RESPIRATORY: Denies SOB and cough. CV: Denies palpitations and CP GI: Denies abdominal pain, nausea, vomiting and diarrhea. : Denies dysuria and urinary frequency. MSK: Denies new myalgia and joint pain. SKIN: Denies rash and pruritus. NEUROLOGICAL: Denies headache PSYCHIATRIC: Denies recent changes in mood. PHYSICAL EXAM: GENERAL: Alert and oriented x 3. NAD EYES: EOMI. Anicteric. HENT: Moist mucous membranes. No scleral icterus. No cervical lymphadenopathy. LUNGS: Clear to auscultation bilaterally. CARDIOVASCULAR: Regular rate and rhythm. No murmur. No JVD. ABDOMEN: Soft, non-tender +bs EXTREMITIES: No edema. Non-tender. SKIN: No rashes or lesions. Warm. NEUROLOGIC: No focal neurological deficits. CN II-XII grossly intact PSYCHIATRIC: Cooperative. Appropriate mood and affect [facility] Medical History Abnormal MRI Post-surgical hypothyroidism History of ESBL E. coli infection Toxic multinodular goiter Toxic multinodular goiter Vitamin D deficiency Hyperthyroidism Multinodular thyroid Colon cancer Lung mass Developmental delay, mild Arthritis Surgical History History of carpal tunnel surgery of right wrist Hx of total thyroidectomy History of biopsy Hx of colonic polyps Hx of colonoscopy Family History Father No problems noted. Mother Medical history unknown Social History Household Members: Caregiver Household Members Other:: gr home Housing: Other Housing Other:: retirement Unable to assess alcohol history related to: Unknown Alcohol intake: never Patient Tobacco Use Status: Never used Tobacco e-Cigarette/Vaping Use: Never Used Second Hand Smoke Exposure: No Advance Directives Date on File: 01/05/21 service: No Current occupational status: disabled Current occupation: right handed Cognitive needs: Yes Hearing needs: No Vision needs: Yes (rx glasses) Questionnaire Thrive Questionnaire Date Thrive assessed: 10/03/23 Physical exam (Primary Care) Vital Signs: Last Vital Signs Temp 97.6 F 12/19/24 11:26 Pulse 66 12/19/24 11:26 Resp 14 12/19/24 11:26 BP 122/80 12/19/24 11:26 Pulse Ox 98 12/19/24 11:26 Oxygen Delivery Method Room Air 12/19/24 11:26 BMI result Body Mass Index 25.1 Tobacco/Smoking Status: Tobacco use Status Tobacco use date assessed 12/19/24 12/19/24 11:40 Patient Tobacco Use Status Never used Tobacco 12/19/24 11:40 e-Cigarette/Vaping Use Never Used 12/19/24 11:40 Thrive Assessment: Date of Thrive Assessment Date Thrive assessed 10/03/23 12/19/24 11:40 Coding Level of Care Code New Pt Level 4 (26650) Diagnoses Encounter to establish care Z76.89 Toxic multinodular goiter E05.20 Mood disorder due to a general medical condition F06.30 Assessment & Plan Assessment & Plan (1) Encounter to establish care: Code(s): Z76.89 - Persons encountering health services in other specified circumstances Category: Medical (2) Toxic multinodular goiter: Code(s): E05.20 - Thyrotoxicosis with toxic multinodular goiter without thyrotoxic crisis or storm Category: Medical (3) Mood disorder due to a general medical condition: Code(s): F06.30 - Mood disorder due to known physiological condition, unspecified Category: Medical Plan 69 y/o female [facility] care. past medical, surgical, social and family history reviewed chart updated. Medications ordered Labs at next visit-return in six months continue follow up psychiatry Medications: New multivitamin 1 tab PO DAILY 90 tabs 3RF docusate sodium hold for diarrhea. if held for 4 consecutive doses contact PCP 100 mg PO BID 180 caps 3RF Balmex (petrolatum) 51.1% (white petrolatum) Apply twice daily to groin and buttocks 1 appl topical BID-TID PRN 99 grams 3RF dry skin NS acetaminophen call pcp if fever > 48 hours 500 mg PO Q6H PRN 100 tabs 3RF fever or pain loratadine 10 mg PO DAILY 90 tabs 3RF ferrous sulfate (FeroSul) 325 mg oral once daily on Mon, Wed, Fri 36 tabs 3RF tamsulosin in am 0.4 mg PO Q24H 90 caps 3RF Icy Hot Pain Relieving 2.5% (menthol) Small amount topically twice daily to back and shoulder 1 appl topical BID 70.8 grams 3RF NS levothyroxine 200 mcg PO DAILY 90 tabs 3RF nystatin Applications atleast 6 houts apart. contact provider if no improvement in rash in 72 hours 1 appl topical BID PRN 60 grams 3RF skin fold rash dextromethorphan-guaifenesin 5-100 mg/5 mL doses atleast 6 hours apart. call if no improvement in 72 hours 10 mL PO Q6H PRN 500 mL 3RF cough Changed From sennosides (Senna Lax) 8.6 mg PO Q48H PRN constipation To sennosides (Senna Lax) hold for diarrhea. call md if hold for 2 consecutive doses 8.6 mg PO Q48H 45 tabs 3RF constipation From ibuprofen 400 mg PO TID PRN Pain To ibuprofen if symptoms not resolved in 48 hours contact pcp 400 mg PO Q6H PRN 100 tabs 3RF Pain Refilled aspirin 81 mg PO DAILY 90 tabs 3RF
--- OUTSIDE RECORDS SUMMARY | 2024-12-19 13:25 | XMS_ITS | Encounter Summary ---
Author Organization [facility] Address [address] [place] [address] Care Team Providers Care Esl Teacher Name Role Phone Sher Patrick Primary Care Provider [phone] Reason for Visit * Reason Onset Date Comments Needs to reschedule 09/28/2020 Encounter Details Date Type Department Care Team (Late st Contact Info) Description 09/28/2020 Telephone [facility] Central Scheduling Department [address] [place] [address] Telephone Intake, Staff Needs to reschedule Social [...] Description 05/02/2025 7:15 AM EDT Hospital Encounter [facility] Operating Room [address] [place] [address] Catracho Vidal MD MPH [address] [place] [address] 05/05/2025 7:15 AM EDT - 05/05/2025 8:20 AM EDT Surgery [facility] Operating Room [address] [place] [address] Catracho Vidal MD MPH [address] [place] [address] Colonoscopy Screening, High Risk with Possible Moderate Sedation [25777 (CPT??)] Scheduled Procedures Name Priority Associated Diagnoses [...] documented as of this encounter Care Teams Esl Teacher Relationship Specialty Start Date End Date Sher Patrick [address] [place] [address] [place] [address] PCP - General 04/20/17 documented as of this encounter
--- OUTSIDE RECORDS SUMMARY | 2024-12-19 13:25 | XMS_ITS | Data Portability ---
Author Organization [place] - [facility], Allergy Address [address] [address] Assessment Encounter Date Assessment Date Assessment LastModified by Organization Details LastModified Time 04/22/2024 04/22/2024 Incidental finding of right parapharyngeal lesion is partially visualized on previous MRI. Recommend further imaging with MRI neck with and without contrast and then likely referral to [place] for discussion of surgical intervention. 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 Requested to share results with Patricia Villavicencio RN [phone] [email or web address] Not available 04/22/2024 11:08:51 Plan of Treatment Reminders Order Date Submit Date Provider Last Modified By Organization Details Last Modified Time Details Appointments Test Results 15 2024 04:00P M MIKAEL DORMAN MD Not available Not available Not available Lab None recorded. Referral None recorded. Procedures None recorded. Surgeries None recorded. Imaging MRI, neck, w/wo contrast - followup of right paraphary ngeal lesion 2023 024 [facility], [address] , [address], [address], 04/25/2024 11:29:49 Medication Orders None recorded. Patient TargetsNo targets recorded. Patient InstructionsNo instructions recorded. Reason for Referral None Reported. Results Created Date Observation Date Name Description Value Unit Range Abnormal Flag Note LastModifiedBy Organization Detail LastModifiedTime 05/01/20 24 04/30/2024 MRI, neck, w/ contr ast No observ ation record ed. [email or web address] [facility] [address] [facility] [address], [place], [address], 05/01/2024 10:09:56 05/01/20 24 04/30/2024 MRI, neck, w/ contr ast No observ ation record ed. [email or web address] [facility] [address], [address], 05/01/2024 10:09:56 12/16/19 25 12/13/2024 MRI, neck, w/o contr ast No observ ation record ed. ccomi [facility] [address] [address], [place], [address], 12/17/2024 14:16:49 Result Notes None recorded. Problems Name Problem SNOMED Code Status Onset Date Resolution Date Notes Provider Name and Address Organization Details Recorded Time Sensorine ural hearing loss of bilateral ears 979255423 Active 2014 Sensorine ural HL, bilateral ; Note: Date Diagnosed : 11/20/2014 4:41 PM (389.18) Note: Date Diagnosed : 11/20/2014 4:41 PM (389.18) Not Available [facility] 4 01:02:50 Impacted cerumen of bilateral ears [id number] 70754 Active 2016 Impacted cerumen, bilateral ; Note: Date Diagnosed : 11/29/2016 11:26 AM (H61.23) Note: Date Diagnosed : 11/29/2016 11:26 AM (H61.23) Not Available [facility] 4 01:02:50 Abnormal auditory perceptio n 81071078 Active 2018 Abnormal auditory perceptio n, unspecifi ed; Note: Date Diagnosed : 11/20/2014 5:39 PM (388.40) Note: Date Diagnosed : 11/20/2014 5:39 PM (388.40) ; Start Date : 5 Other abnormal auditory perceptio ns, bilateral ; Note: Date Diagnosed : 12/06/2018 1:15 PM (H93.293) Note: Date Diagnosed : 12/06/2018 1:15 PM (H93.293) Not Available [facility] 4 01:02:51 Impacted cerumen 08894240 Active 2014 Impacted cerumen; CMS Risk: low [...] : 11/20/2014 5:40 PM (380.4) Not Available [facility] 4 01:02:54 Mass of paraphary ngeal space 78010924513 181968 Active 2023 MIKAEL DORMAN MD [address] [place] [address], [place], [address] , [place] - [facility] 09:11:36 Problem Notes None recorded. Procedures Surgical History Date Name Laterality Status Provider Name and Address Organization Details Recorded Time 04/22/2024 FOL_DP completed MIKAEL DORMAN MD [address] [place] [address], [place], [address], [place] - [facility] 04/22/2024 11:07:34 Imaging Results Imaging Date Name Status LastModified by Organiz ation Details LastModified Time 04/30/2024 MRI, neck, w/ contrast completed [email or web address] [facility] [address], [address], 05/01/2024 10:09:56 04/30/2024 MRI, neck, w/ contrast completed [email or web address] [facility] [address], [address], 05/01/2024 10:09:56 12/13/2024 MRI, neck, w/o contrast completed ccomi [facility] [address], [address], 12/17/2024 14:16:49 Procedure Notes None recorded. Medical Equipment None Reported. Allergies Allergen ID Allergen Name Allergen Category Reaction Reaction Severity Criticality Documentation Date Start Date Code Code System Note Provider Name and Address Organization Details Recorded Time [id number] latex environme nt,medica tion Not available Not available Not available 04/22/2024 57807 91 RxNorm Su ceja [place] - [facility] 4 10:59:19 Medications Name Sig Start Date Stop Date Status Note LastModified by Organization Details LastModified Time doxycycli ne hyclate 100 mg capsule 04/22 completed Medicatio n ID: [id number] Dur ation Value: 10 Brand Name: doxycycli ne hyclate S end Method: E-Prescri bed Subs Allowed: subs OK Specia l Instructi on: TAKE ONE CAPSULE BY MOUTH TWICE A DAY Medic ationGene ricName: doxycycli ne hyclate M edication ID: [id number] Dur ation Value: 10 Brand Name: doxycycli ne hyclate S end Method: E-Prescri bed Subs Allowed: subs OK Specia l Instructi on: TAKE ONE CAPSULE BY MOUTH TWICE A DAY Medic ationGene ricName: doxycycli ne hyclate Not Available Not Available Not Available acetamino phen 300 mg-codein e 30 mg tablet 2014 active Medicatio n ID: [id number] Dur ation Value: 4 Brand Name: acetamino phen-code ine Send Method: E-Prescri bed Subs Allowed: subs OK Specia l Instructi on: TAKE 1 TABLET BY MOUTH EVERY 6 HOURS NEEDED FOR PAIN Medi cationGen ericName: acetamino phen-code ine Medic ation ID: [id number] Dur ation Value: 4 Brand Name: acetamino phen-code ine Send Method: E-Prescri bed Subs Allowed: subs OK Specia l Instructi on: TAKE 1 TABLET BY MOUTH EVERY 6 HOURS NEEDED FOR PAIN Medi cationGen ericName: acetamino phen-code ine Not Available Not Available Not Available theophyll ine ER 300 mg tablet,ex tended release,1 2 hr 04/22 completed Medicatio n ID: [id number] Dur ation Value: 90 Brand Name: theophyll ine Send Method: E-Prescri bed Subs Allowed: subs OK Specia l Instructi on: TAKE 1 TABLET BY MOUTH EVERY DAY Medic ationGene ricName: theophyll ine Medic ation ID: [id number] Dur ation Value: 90 Brand Name: theophyll [...] mg capsule 04/22 completed Medicatio n ID: [id number] Dur ation Value: 90 Brand Name: flaxseed oil Send Method: E-Prescri bed Subs Allowed: subs OK Specia l Instructi on: TAKE 2-3 CAPSULES BY MOUTH DAILY Med icationGe nericName : flaxseed oil Medic ation ID: [id number] Dur ation Value: 90 Brand Name: flaxseed oil Send Method: E-Prescri bed Subs Allowed: subs OK Specia l Instructi on: TAKE 2-3 CAPSULES BY MOUTH DAILY Med icationGe nericName : flaxseed oil Not Available Not Available Not Available mupirocin 2 % topical ointment 04/22 completed Medicatio n ID: [id number] Dur ation Value: 7 Brand Name: mupirocin Send Method: E-Prescri bed Subs Allowed: subs OK Specia l Instructi on: APPLY A SMALL AMOUNT TO AFFECTED AREA THREE TIMES A DAY Medic ationGene ricName: mupirocin Medicati on ID: [id number] Dur ation Value: 7 Brand Name: mupirocin Send Method: E-Prescri bed Subs Allowed: subs OK Specia l Instructi on: APPLY A SMALL AMOUNT TO AFFECTED AREA THREE TIMES A DAY Medic ationGene ricName: mupirocin Not Available Not Available Not Available polyethyl mesfin glycol 3350 17 gram/dose oral powder 04/22 completed Medicatio n ID: [id number] Dur ation Value: 30 Brand Name: polyethyl mesfin glycol 3350 Send Method: E-Prescri bed Subs Allowed: subs OK Specia l Instructi on: DISSOLVE 1 CAPFULE IN 4-8 OZ OF LIQUID DAILY NEEDED Me dicationG enericNam e: polyethyl mesfin glycol 3350 Medi cation ID: [id number] Dur ation Value: 30 Brand Name: polyethyl mesfin glycol 3350 Send Method: E-Prescri bed Subs Allowed: subs OK Specia l Instructi on: DISSOLVE 1 CAPFULE IN 4-8 OZ OF LIQUID DAILY NEEDED Me dicationG enericNam e: polyethyl mesfin glycol 3350 Not Available Not Available Not Available imipramin e 25 mg tablet 04/22 completed Medicatio n ID: [id number] Dur ation Value: 30 Brand Name: imipramin e HCl Send Method: E-Prescri bed Subs Allowed: subs OK Specia l Instructi on: TAKE 1 TABLET BY MOUTH EVERY MORNING AND 3 TABLETS EVERY EVENING M edication GenericNa me: imipramin e HCl Medic ation ID: [id number] Dur ation Value: 30 Brand Name: imipramin e HCl Send Method: E-Prescri bed Subs Allowed: subs OK Specia l Instructi on: TAKE 1 TABLET BY MOUTH EVERY MORNING AND 3 TABLETS EVERY EVENING M edication GenericNa me: imipramin e HCl Not Available Not Available Not Available loratadin e 10 mg tablet 2014 active Medicatio n ID: [id number] Dur ation Value: 30 Brand Name: loratadin e Send Method: E-Prescri bed Subs Allowed: subs OK Specia l Instructi on: TAKE 1 TABLET BY MOUTH DAILY Med icationGe nericName : loratadin e Medicat ion ID: [id number] Dur ation Value: 30 Brand Name: loratadin e Send Method: E-Prescri bed Subs Allowed: subs OK Specia l Instructi on: TAKE 1 TABLET BY MOUTH DAILY Med icationGe nericName : loratadin e Not Available Not Available Not Available Abilify 15 mg tablet 2014 active Medicatio n ID: [id number] Dur ation Value: 90 Brand Name: Abilify S end Method: E-Prescri bed Subs Allowed: subs OK Specia l Instructi on: TAKE 1 TABLET BY MOUTH EVERY MORNING M edication GenericNa me: Abilify M edication ID: [id number] Dur ation Value: 90 Brand Name: Abilify S end Method: E-Prescri bed Subs Allowed: subs OK Specia l Instructi on: TAKE 1 TABLET BY MOUTH EVERY MORNING M edication GenericNa me: Abilify Not Available Not Available Not Available Vesicare 5 mg tablet 2014 active Medicatio n ID: [id number] Dur ation Value: 90 Brand Name: Vesicare Send Method: E-Prescri bed Subs Allowed: subs OK Specia l Instructi on: TAKE 1 TABLET BY MOUTH EVERY MORNING M edication GenericNa me: Vesicare Medicatio n ID: [id number] Dur ation Value: 90 Brand Name: Vesicare Send Method: E-Prescri bed Subs Allowed: subs OK Specia l Instructi on: TAKE 1 TABLET BY MOUTH EVERY MORNING M edication GenericNa me: Vesicare Not Available Not Available Not Available Cogentin 04/22 completed Medicatio n ID: [id number] Br and Name: cogentin Send Method: E-Prescri bed Subs Allowed: subs OK Medica tionGener icName: cogentin Medicatio n ID: [id number] Br and Name: cogentin Send Method: E-Prescri [...] Note [id number] MIKAEL DORMAN MD [facility] [address] [address] 04/22/2024 10:32:31 04/22/2024 11:17:22 Mass of parapharyngeal space [id number] R22.1 Health Concerns Section Related Observation LastModified by Organization Detai ls LastModified Time None Recorded Concern Status LastModified by Organization Details LastModified Time None Recorded Advance Directives Directive None Recorded Payers Encounter Date Sequence Insurance Name Policy Number Policy Cobb Covered Member ID Cobb Member ID Guarantor Name 04/22/2024 2 [place] [facility] Kirsten Barberle [id number] Kirsten Ronquillo 04/22/2024 1 MEDICARE B-[place]: [facility] Kirsten Ronquillo [id number] Kirsten Ronquillo Notes Date Note Type Note [...] thyroidectomy in October 2023 MIKAEL DORMAN MD [address] [place] [address], [place], [address], [place] - [facility] 04/22/2024 11:11:35 OBGyn Episode No OBEpisode recorded.
--- OUTSIDE RECORDS SUMMARY | 2024-12-19 13:25 | XMS_ITS | Clinical Summary ---
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 Cataract [...] Department Care Team Description 11/15/2024 Orders Only [facility] [address] [place] [address] [employer] Principal: Kori Mike, RN Colorectal cancer (Primary Dx) 11/14/2024 Telephone [facility] [address] [place] [phone] [employer] Principal: Kori Mike, LAY 11/04/2024 8:14 AM EST Anesthesia Event [facility] Operating Room [address] [place] [address] Sarah Chapa MD Prasad, Ross Liriano MD 11/04/2024 7:45 AM EST - 11/04/2024 10:15 AM EST Surgery [facility] Operating Room [address] [place] [address] Catracho Vidal MD MPH TRANSANAL ENDOSCOPIC MICROSURGERY, possible TAMIS. with air seal [99939 (CPT??)] 10/31/2024 10:09 PM EST - 11/04/2024 5:34 PM EST Hospital Encounter [facility] Unit [address] [place] [address] Catracho Vidal MD MPH Anorectal polyp Discharge Disposition: Home or Self Care () 10/24/2024 Documentation [facility] [address] [place] [address] [employer] Principal: Boyd Connors MD 10/23/2024 10:20 AM EST Follow-Up [facility] [address] [place] [address] [employer] Principal: Boyd Connors MD Hyponatremia (Primary Dx) from [...] 0.6 oz pur e alcohol) [facility] Utilities Answer Date Recorded In the [...] Description 05/02/2025 7:15 AM EDT Hospital Encounter [facility] Operating Room [address] [id number] Catracho Vidal MD MPH [address] [place], [place] [id number] 05/05/2025 7:15 AM EDT - 05/05/2025 8:20 AM EDT Surgery [facility] Operating Room [address] [place] [address] Catracho Vidal MD MPH [address] [place] [address] Colonoscopy Screening, High Risk with Possible Moderate Sedation [37990 (CPT??)] Scheduled Procedures Name Priority Associated Diagnoses [...] complete this topic Procedures * Due to [employer] [employer] law, this organization might not be sharing negative HIV tests. Procedure Name Priority Date/Time Associated Diagnosis Comments TISSUE EXAM Routine 11/04/2024 10:00 AM EST Anorectal polyp TX EXCIS CHALAZION,GEN ANESTHESIA 11/04/2024 7:59 AM EST [...] to Health Maintenance Results * Due to [employer] law, this organization might not be sharing negative HIV tests. 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 - See note Note: The fragmented nature of specimen precludes the evaluation of margin status. [facility] 11/05/2024 5:18 PM EST [facility] at 1718 EST Clinical History Pre-op diagnosis: Anorectal polyp [K62.0, K62.1] [facility] 11/05/2024 5:18 PM EST [facility] Gross Description 1. Renettaus The specimen is received fresh previously unattached [...] quadrisected 1G-1 fragment bisected 1H-smallest fragmented bisected [facility] MANUAL 11/05/2024 5:18 PM EST [facility] Gross Description User Grossing complete by Tootie Somers on 11/04/2024 3:24 PM [facility] MANUAL 11/05/2024 5:18 PM EST [facility] Embedded Images [facility] MANUAL 11/05/2024 5:18 PM EST [facility] Resulting Agency Case was signed out at [facility], Department of Pathology, [employer] 3 CLIA [id number] [facility] MANUAL 11/05/2024 5:18 PM EST [employer] [facility] [facility] Report Header Surgical Pathology Report ? Case: [id number] ? Authorizing Provider: ??Catracho Vidal MD MPH ?Collected: ? 11/04/2024 1000 ? Ordering Location: ? [facility] ? Received: ?11/04/2024 1158 ? [facility] ? Operating Room ? Pathologist: ? Mirella Cai MD ? Specimen: ?Anus, rectal polyp ? 11/05/2024 5:18 PM EST [facility] Tissue Anal structure / Unknown 11/04/2024 10:00 AM EST 11/04/2024 11:58 AM EST Comment:Pre-op diagnosis: Anorectal polyp [K62.0, K62.1] us Catracho Vidal MD MPH LAB PATHOLOGY/CYTOLOGY ORDERA BLES Final Result [facility] [employer] [facility] LABORAT[facility] [address] [place] [address], [facility] ANATOM[facility]OLOG[facility] LAB[facility]ATORY [address] [place] [address], * Phosphorus (11/03/2024 12:56 AM EST) Only the most recent of2 resultswithin the time period is included. Phosphorus 2.7 2.5 - 4.5 mg/dL 11/03/2024 2:02 AM EST [facility] Blood Structure of peripheral vein / Unknown Venipuncture / Unknown 11/03/2024 12:56 AM EST 11/03/2024 1:26 AM EST Catracho Vidal MD MPH LAB BLOOD ORDERABLES Final Re sult Performing Organization Address City/[facility] Co de Phone Number [facility] [address] [place] [address], * Magnesium (11/03/2024 12:56 AM EST) Only the most recent of2 resultswithin the time period is included. MG 2.3 1.6 - 2.4 mg/dL 11/03/2024 2:02 AM EST [facility] PATHOLOG[facility] Blood Structure of peripheral vein / Unknown Venipuncture / Unknown 11/03/2024 12:56 AM EST 11/03/2024 1:26 AM EST Catracho Vidal MD MPH LAB BLOOD ORDERABLES Final Re sult Performing Organization Address [facility] de Phone Number [facility] [address] [place] [address], * Basic Metabolic Panel (11/03/2024 12:56 AM EST) Only the most recent of3 resultswithin the time period is included. NA 138 135 - 145 mmol/L 11/03/2024 2:02 AM EST [facility] K 3.9 3.5 - 5.3 mmol/L 11/03/2024 2:02 AM EST [facility] Cl 104 98 - 107 mmol/L 11/03/2024 2:02 AM EST [facility] CO2 24 22 - 32 mmol/L 11/03/2024 2:02 AM EST [facility] BUN 13 7 - 23 mg/dL 11/03/2024 2:02 AM EST [facility] Creatinine 0.70 0.50 - 1.20 mg/dL 11/03/2024 2:02 AM EST [facility] Glucose 94 65 - 99 mg/dL 11/03/2024 2:02 AM EST [facility] Calcium 8.7 8.6 - 10.5 mg/dL 11/03/2024 2:02 AM EST [facility] Anion Gap 10 5 - 15 11/03/2024 2:02 AM EST [facility] PATH[facility] eGFR >90 >=60 mL/min/1. 73m2 11/03/2024 2:02 AM EST [facility] Comment:The estimated glomer ular [...] MPH LAB BLOOD ORDERABLES Final Re sult [facility] [address] [place] [address], * COLONOSCOPY (08/05/2020) Narrative Procedure Note Catracho Vidal MD MPH - 08/05/2020 7:31 AM EST Gastroenterology Patient Name: Kirsten Ronquillo Procedure Date: 08/05/2020 7:31 AM Date of : 1955 Admit Type: Inpatient Age: 64 Room: [place] [address] Gender: Female Note Status: Finalized Attending MD: [...] and oxygen saturations were monitored continuously. The [id number] was introduced through the anus and advanced [...] s ESBL Comment:ESBL E.coli 08/03/2020 08/03/2020 Insurance [facility] MEDICARE Advance Directives Documents on File Type Date Recorded Patient Audit Director Expl anation Advance Directive 07/05/2013 12:00 AM HCP Advance Directive 07/02/2013 12:00 AM kate Ramesh edical Dec Making (Adv.Dir) * Full Code [...] Communication Isi Thompson Friend Health Care Agent Care Teams Steamer Blocker Relationship Specialty Start Date End Date Sher Patrick [address] [place] [address] [place] [address] PCP - General 04/20/17
--- OUTSIDE RECORDS SUMMARY | 2024-12-19 13:25 | XMS_ITS | Referral Summary ---
Author Organization [facility] Address [address] [place] [address] Care Team Providers Care Radio Personality Name Role Phone Sher Patrick Primary Care Provider [phone] Encounters Date Type Department Care Team Description 11/15/2024 Orders Only [facility] Colorectal Surgery [address] [place] [phone] Glove Stitcher: Kori Mike RN Colorectal cancer (Primary Dx) 11/14/2024 Telephone [facility] Colorectal Surgery [address] [place] [phone] Glove Stitcher: Kori Mike, LAY 11/04/2024 7:45 AM EST - 11/04/2024 10:15 AM EST Surgery [facility] Operating Room [address] [place] [phone] Catracho Vidal MD MPH TRANSANAL ENDOSCOPIC MICROSURGERY, possible TAMIS. with air seal [95181 (CPT??)] 10/31/2024 10:09 PM EST - 11/04/2024 5:34 PM EST Hospital Encounter [facility] [address] [place] [address] Catracho Vidal MD MPH Anorectal polyp Discharge Disposition: Home or Self Care () 11/04/2024 8:14 AM EST Anesthesia Event [facility] [address] [place] [phone] Sarah Chapa MD Prasad, Abhinav Vibhas, MD 10/24/2024 Documentation [facility] [address] [place] [address] Glove Stitcher: [place] Connors MD 10/23/2024 10:20 AM EST Follow-Up [facility] [address] [place] [phone] Glove Stitcher: [place] Connors MD Hyponatremia (Primary Dx) from [...] 8:48:00 EST, Dry Weight 4 Active INV [id number] triamcinolone acetoniden 0.1% topical ointment Apply topically [...] ] AM BMP Small bowel obstruction 09/17/2022 12/ Preoperative clearance 08/03/202008/06 Immunizations Immunization Administration Dates Next Due Influenza, Injectable, Quadrivalent, Preservativ e Free 07/05/2021 Social History Tobacco Use Types Packs/Day Years Used Date Smoking Tobacco: Never Smokeless Tobacco: Never Tobacco Cessation:Counseling Given: Not Answered Alcohol Use Standard Drinks/Week Comments Never 0 (1 standard drink = 0.6 oz pur e alcohol) [facility] Utilities Answer Date Recorded In the [...] Description 05/02/2025 7:15 AM EDT Hospital Encounter [facility] Room [address] [place] [address] Catracho Vidal MD MPH [address] [place] [address] 05/05/2025 7:15 AM EDT - 05/05/2025 8:20 AM EDT Surgery [facility] [address] [place] [address] Catracho Vidal MD MPH [address] [place] [address] Colonoscopy Screening, High Risk with Possible Moderate Sedation [95054 (CPT??)] Scheduled Procedures Name Priority Associated Diagnoses Date/Ti me COLONOSCOPY SCREENING, HIGH RISK WITH POSSIBLE MODERATE SEDATION Colorectal cancer (HCC) 05/05/2025 7:15 AM EDT Procedures * Due to [place] [employer] law, this organization might not be sharing negative HIV tests. Procedure Name Priority Date/Time Associated Diagnosis Comments TISSUE EXAM Routine 11/04/2024 10:00 AM EST Anorectal polyp TN EXCIS CHALBREONNAION,GEN ANESTHESIA 11/04/2024 7:59 AM EST Anorectal polyp [...] Health Maintenance Results * Due to [place] state law, this organization might not be sharing negative HIV tests. 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 - See note Note: The fragmented nature of specimen precludes the evaluation of margin status. [facility] MANUAL 11/05/2024 5:18 PM EST [facility] xCloud [facility] at 1718 EST Clinical History Pre-op diagnosis: Anorectal polyp [K62.0, K62.1] [facility] MANUAL 11/05/2024 5:18 PM EST [facility] ANATOMIC PATHOLOGY LABORATORY Gross Description 1. [...] quadrisected 1G-1 fragment bisected 1H-smallest fragmented bisected [facility] MANUAL 11/05/2024 5:18 PM EST [facility] Gross Description User Grossing complete by Tootie Somers on 11/04/2024 3:24 PM [facility] MANUAL 11/05/2024 5:18 PM EST [facility] ANATOMIC PATHOLOGY LABORATORY Embedded Images [facility] MANUAL 11/05/2024 5:18 PM EST [facility] xCloud THREE ANAT[facility] PATHOLOGY LABORATORY Resulting Agency Case was signed out at [facility], Department of Pathology, [employer] 3 CLIA [id number] [facility] MANUAL 11/05/2024 5:18 PM EST [facility] [employer] [facility]AT[facility] LAB[facility] Report Header Surgical Pathology Report ? Case: [id number] ? Authorizing Provider: ??Catracho Vidal MD MPH ?Collected: ? 11/04/2024 1000 ? Ordering Location: ? [facility] ? Received: ?11/04/2024 1158 ? [facility] ? Operating Room ? Pathologist: ? Mirella Cai MD ? Specimen: ?Anus, rectal polyp ? 11/05/2024 5:18 PM EST [facility] Tissue Anal structure / Unknown 11/04/2024 10:00 AM EST 11/04/2024 11:58 AM EST Comment:Pre-op diagnosis: Anorectal polyp [K62.0, K62.1] Catracho Vidal MD MPH LAB PATHOLOGY/CYTOLOGY ORDERA BLES Final Result [facility] [address] [place] [address], [facility] PATH[facility]ORY [address] [place] [address], [place] * Phosphorus (11/03/2024 12:56 AM EST) Only the most recent of2 resultswithin the time period is included. Phosphorus 2.7 2.5 - 4.5 mg/dL 11/03/2024 2:02 AM EST [facility] PATHOLOGY [facility] Blood Structure of peripheral vein / Unknown Venipuncture / Unknown 11/03/2024 12:56 AM EST 11/03/2024 1:26 AM EST Catracho Vidal MD MPH LAB BLOOD ORDERABLES Final Re sult Performing Organization Address [facility] Co de Phone Number [facility] [address] [place] [address], [place] * Magnesium (11/03/2024 12:56 AM EST) Only the most recent of2 resultswithin the time period is included. MG 2.3 1.6 - 2.4 mg/dL 11/03/2024 2:02 AM EST [facility] Blood Structure of peripheral vein / Unknown Venipuncture / Unknown 11/03/2024 12:56 AM EST 11/03/2024 1:26 AM EST Catracho Vidal MD MPH LAB BLOOD ORDERABLES Final Re sult Performing Organization Address [facility] Co de Phone Number [facility] CL[facility]ICAL PATHOLOG[facility] [address] [place] [address], [place] * Basic Metabolic Panel (11/03/2024 12:56 AM EST) Only the most recent of3 resultswithin the time period is included. NA 138 135 - 145 mmol/L 11/03/2024 2:02 AM [facility] K 3.9 3.5 - 5.3 mmol/L 11/03/2024 2:02 AM [facility] Cl 104 98 - 107 mmol/L 11/03/2024 2:02 AM [facility] CO2 24 22 - 32 mmol/L 11/03/2024 2:02 AM [facility] BUN 13 7 - 23 mg/dL 11/03/2024 2:02 AM [facility] Creatinine 0.70 0.50 - 1.20 mg/dL 11/03/2024 2:02 AM [facility] Glucose 94 65 - 99 mg/dL 11/03/2024 2:02 AM [facility] Calcium 8.7 8.6 - 10.5 mg/dL 11/03/2024 2:02 AM [facility] Anion Gap 10 5 - 15 11/03/2024 2:02 AM [facility] eGFR >90 >=60 mL/min/1. 73m2 11/03/2024 2:02 AM [facility] Comment:The estimated glomer ular [...] MPH LAB BLOOD ORDERABLES Final Re sult [facility] Organization Address City/State/ZIP Co de Phone Number [facility] [address] [place] [address], [place] * COLONOSCOPY (08/05/2020) Narrative Procedure Note Catracho Vidal MD MPH - 08/05/2020 7:31 AM EST Gastroenterology Patient Name: Kirsten Ronquillo Procedure Date: 08/05/2020 7:31 AM Date of : 1955 Admit Type: Inpatient Age: 64 Room: [place] [address] Gender: Female Note Status: Finalized Attending MD: [...] and oxygen saturations were monitored continuously. The [id number] was introduced through the anus and advanced [...] On: 08/05/2020 7:31 AM Catracho Vidal MD [facility] PROCEDURES Final Re sult from Last 3 Months or Most Recently Relevant to Health Maintenance Additional Health Concerns Infection Onset Date Last Indicated Multidrug resistant organism s ESBL Comment:ESBL E.coli 08/03/2020 08/03/2020 Insurance [facility] MEDICARE Advance Directives Documents on File Type Date Recorded Patient Mill Tender Expl anation Advance Directive 07/05/2013 12:00 AM HCP Advance Directive 07/02/2013 12:00 AM sf M edical Dec (Adv.Dir) * Full Code (Latest Code Status [...] Agents on File Name Relationship Healthcare Agent [employer] Communication Isi Thompson Friend Health Care Agent Care Teams Radio Personality Relationship Specialty Start Date End Date Sher Patrick [address] [place] [address] dr Jose Garcia, IDRIS [address] PCP - General 04/20/17
--- OUTSIDE RECORDS SUMMARY | 2024-12-19 13:25 | XMS_ITS | Clinical Summary ---
Author Organization [facility] Address [address] [place] [address] Phone Care Team Providers Care Transactional Attorney Name Role Phone Sher Patrick MD Primary Care Provider [phone] Allergies Active Allergy Reactions Criticality Noted Date [...] 10/05/2024 Telephone [facility] [address] [place] [address] Puneet Sesay MD 09/26/2024 3:15 PM EST Office Visit [facility] [address] [place] [address] Puneet Sesay MD Hypo-osmolality and hyponatremia (Primary [...] topic Insurance MEDICARE MEDICAID [place] Care Teams Transactional Attorney Relationship Specialty Start Date End Date Sher Patrick MD [address] [place], [place] PCP - General Internal Medicine 09/17/24
== END 2024-12-19 12:50 | disposition home or self-care (01) ==
LOC: HO.HMCHD 11:14
PROVIDERS: PCP Internal Medicine; Visit Provider Internal Medicine
DX: Z76.89 Persons encountering health services in other specified circumstances (principal); E05.20 Thyrotoxicosis with toxic multinodular goiter without thyrotoxic crisis or storm; F06.30 Mood disorder due to known physiological condition, unspecified

== ENCOUNTER → 2024-12-19 11:14 | Outpatient (BNVA) | payer MEDICARE, MEDICAID, SELFPAY | PROVIDERS: PCP Internal Medicine; Visit Provider Internal Medicine | DX: E05.20 Thyrotoxicosis with toxic multinodular goiter without thyrotoxic crisis or storm (principal); E78.5 Hyperlipidemia, unspecified; F06.30 Mood disorder due to known physiological condition, unspecified; Z76.89 Persons encountering health services in other specified circumstances | CPT/HCPCS: 99202 ==

== ENCOUNTER 2024-12-24 10:10 | Outpatient (AMB) | payer MEDICARE, MEDICAID, SELFPAY ==
--- NOTE | 2024-12-24 10:15 | A.OFFVIS_ITS ---
Intake Visit Reasons: Po-Lt CTR 12/10/24-suture removal Intake Note: Kirsten is a 69 year old right hand dominant female who presents today post operatively s/p left carpal tunnel release DOS: 12/10/24 w/ Dr Mirna Delong. Patient reports her numbness and tingling has resolved. She expresses she is having pain in her hands and thinks it is arthritis. Sutures removed and steri strips have been applied. Allergies adhesive tape Allergy (Intermediate, Verified 12/24/24 10:43) itching and skin redness latex Allergy (Intermediate, Verified 12/24/24 10:43) skin rash and itching Seasonal Allergies Allergy (Verified 12/24/24 10:43) Itching weed pollen Allergy (Verified 12/24/24 10:43) stuffy nose DUST Allergy (Unknown, Uncoded 12/24/24 10:43) ITCHY/WATERY EYES surgical paper tape Allergy (Unknown, Uncoded 12/24/24 10:43) rash Tide Allergy (Unknown, Uncoded 12/24/24 10:43) rash HPI HPI Po-Lt CTR 12/10/24-suture removal: Details: Kirsten is a 69 year old right hand dominant female who presents today post operatively s/p left carpal tunnel release DOS: 12/10/24 w/ Dr Mirna Delong. Patient reports her numbness and tingling has resolved. She expresses she is having pain in her hands and thinks it is arthritis. Sutures removed and steri strips have been applied. [facility] Medical History Abnormal MRI Post-surgical hypothyroidism History of ESBL E. coli infection Toxic multinodular goiter Toxic multinodular goiter Vitamin D deficiency Hyperthyroidism Multinodular thyroid Colon cancer Lung mass Developmental delay, mild Arthritis Surgical History History of carpal tunnel surgery of right wrist Hx of total thyroidectomy History of biopsy Hx of colonic polyps Hx of colonoscopy Family History Father No problems noted. Mother Medical history unknown Social History Household Members: Caregiver Household Members Other:: gr home Housing: Other Housing Other:: longterm Unable to assess alcohol history related to: Unknown Alcohol intake: never Patient Tobacco Use Status: Never used Tobacco e-Cigarette/Vaping Use: Never Used Second Hand Smoke Exposure: No Advance Directives Date on File: 01/05/21 service: No Current occupational status: disabled Current occupation: right handed Cognitive needs: Yes Hearing needs: No Vision needs: Yes (rx glasses) Review of Systems Const All systems reviewed & are unremarkable except as noted in HPI and below Physical Exam Extrem Other: Evaluation of left Upper Extremity: The patient is alert, oriented, and in no acute distress She has an intellectual handicap but was able to actively participate in her appointment today. She is a poor historian Neuro: Sensation intact to the median nerve distribution of the left Normal sensation of the tip of the bilateral small fingers No thenar or intrinsic wasting Vascular: Cap refill brisk ROM: She can make a fist and extend all her digits The incision site appears to be healing well. No purulence or drainage from the incision site No erythema or edema noted She can easily make a fist and extend all of her digits without discomfort. Assessment & Plan Assessment & Plan (1) Carpal tunnel syndrome of left wrist: Code(s): G56.02 - Carpal tunnel syndrome, left upper limb Category: Medical Plan 1. Status post L CTR DOS 12/10/24 Patient appears to be recovering well postoperatively Patient is educated about the typical recovery course Patient is educated that she can continue washing the incision with soap and water, but should avoid submerging x1 week Patient is educated she can return to the day program with a light dressing on her hand Patient is amenable to this plan Patient will f/u as needed with any acute concerns Coding Level of Care Code Global (46442) Diagnoses Carpal tunnel syndrome of left wrist G56.02
--- OUTSIDE RECORDS SUMMARY | 2024-12-24 12:08 | XMS_ITS | Data Portability ---
Author Organization [place] - [facility], Allergy Address [address] [address] Assessment Encounter Date Assessment Date Assessment LastModified by Organization Details LastModified Time 04/22/2024 04/22/2024 Incidental finding of right parapharyngeal lesion is partially visualized on previous MRI. Recommend further imaging with MRI neck with and without contrast and then likely referral to [facility] for discussion of surgical intervention. 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 Requested to share results with Patricia Villavicencio RN [phone] [email or web address] Not available 04/22/2024 11:08:51 Plan of [...] followup of right paraphary ngeal lesion 2023 07 024 ATHENAFAX [facility] [place], [address], [address], 04/25/2024 11:29:49 Medication Orders None recorded. Patient TargetsNo targets recorded. Patient InstructionsNo instructions recorded. Reason for Referral None Reported. Results Created Date Observation Date Name Description Value Unit Range Abnormal Flag Note LastModifiedBy Organization Detail LastModifiedTime 05/01/20 24 04/30/2024 MRI, neck, w/ contr ast No observ ation record ed. [email or web address] [facility] [place] [address] [facility] [address], [place], [address], 05/01/2024 10:09:56 05/01/20 24 04/30/2024 MRI, neck, w/ contr ast No observ ation record ed. [email or web address] [facility] [place] [address], [address], 05/01/2024 10:09:56 12/16/19 25 12/13/2024 MRI, neck, w/o contr ast No observ ation record ed. ccomi [facility] [place] [address] [address], [place], [address], 12/17/2024 14:16:49 Result Notes None recorded. Problems Name Problem SNOMED Code Status Onset Date Resolution Date Notes Provider Name and Address Organization Details Recorded Time Sensorine ural hearing loss of bilateral ears 929383477 Active 2014 Sensorine ural HL, bilateral ; Note: Date Diagnosed : 11/20/2014 4:41 PM (389.18) Note: Date Diagnosed : 11/20/2014 4:41 PM (389.18) Not Available [facility] 4 01:02:50 Impacted cerumen of bilateral ears [id number] 63685 Active 2016 Impacted cerumen, bilateral ; Note: Date Diagnosed : 11/29/2016 11:26 AM (H61.23) Note: Date Diagnosed : 11/29/2016 11:26 AM (H61.23) Not Available [facility] 4 01:02:50 Abnormal auditory perceptio n 82543673 Active 2018 Abnormal auditory perceptio n, unspecifi ed; Note: Date Diagnosed : 11/20/2014 5:39 PM (388.40) Note: Date Diagnosed : 11/20/2014 5:39 PM (388.40) ; Start Date : 5 Other abnormal auditory perceptio ns, bilateral ; Note: Date Diagnosed : 12/06/2018 1:15 PM (H93.293) Note: Date Diagnosed : 12/06/2018 1:15 PM (H93.293) Not Available [facility] 4 01:02:51 Impacted cerumen 91166079 Active 2014 Impacted cerumen; CMS Risk: low [...] : 11/20/2014 5:40 PM (380.4) Not Available [facility] 4 01:02:54 Mass of paraphary ngeal space [id number] 795052 Active 2023 MIKAEL DORMAN MD [address] [place] [address], [place], [address] , [place] [facility] 09:11:36 Problem Notes None recorded. Procedures Surgical History Date Name Laterality Status Provider Name and Address Organization Details Recorded Time 04/22/2024 FOL_DP completed MIKAEL DORMAN MD [address] [place] [address], [place], [address], [place] [facility] 04/22/2024 11:07:34 Imaging Results Imaging Date Name Status LastModified by Organiz ation Details LastModified Time 04/30/2024 MRI, neck, w/ contrast completed [email or web address] [facility] [address], [address], 05/01/2024 10:09:56 04/30/2024 MRI, neck, w/ contrast completed [email or web address] [facility] [place] [address], [address], 05/01/2024 10:09:56 12/13/2024 MRI, neck, w/o contrast completed ccomi [facility] [place] [address], [address], 12/17/2024 14:16:49 Procedure Notes None recorded. Medical Equipment None Reported. Allergies Allergen ID Allergen Name Allergen Category Reaction Reaction Severity Criticality Documentation Date Start Date Code Code System Note Provider Name and Address Organization Details Recorded Time 419253 latex environme nt,medica tion Not available Not available Not available 04/22/2024 41578 91 RxNorm Su ceja [place] - [facility] 4 10:59:19 Medications Name Sig Start Date Stop Date Status Note LastModified by Organization Details LastModified Time doxycycli ne hyclate 100 mg capsule 04/22 completed Medicatio n ID: [id number] Dur ation Value: 10 Brand Name: doxycycli ne hyclate S end Method: E-Prescri bed Subs Allowed: subs OK Specia l Instructi on: TAKE ONE CAPSULE BY MOUTH TWICE A DAY Medic ationGene ricName: doxycycli ne hyclate M edication ID: [id number] Dur ation Value: 10 Brand Name: doxycycli ne hyclate S end Method: E-Prescri bed Subs Allowed: subs OK Specia l Instructi on: TAKE ONE CAPSULE BY MOUTH TWICE A DAY Medic ationGene ricName: doxycycli ne hyclate Not Available Not Available Not Available acetamino phen 300 mg-codein e 30 mg tablet 2014 active Medicatio n ID: [id number] Dur ation Value: 4 Brand Name: acetamino phen-code ine Send Method: E-Prescri bed Subs Allowed: subs OK Specia l Instructi on: TAKE 1 TABLET BY MOUTH EVERY 6 HOURS NEEDED FOR PAIN Medi cationGen ericName: acetamino phen-code ine Medic ation ID: [id number] Dur ation Value: 4 Brand Name: acetamino phen-code ine Send Method: E-Prescri bed Subs Allowed: subs OK Specia l Instructi on: TAKE 1 TABLET BY MOUTH EVERY 6 HOURS NEEDED FOR PAIN Medi cationGen ericName: acetamino phen-code ine Not Available Not Available Not Available theophyll ine ER 300 mg tablet,ex tended release,1 2 hr 04/22 completed Medicatio n ID: [id number] Dur ation Value: 90 Brand Name: theophyll ine Send Method: E-Prescri bed Subs Allowed: subs OK Specia l Instructi on: TAKE 1 TABLET BY MOUTH EVERY DAY Medic ationGene ricName: theophyll ine Medic ation ID: [id number] Dur ation Value: 90 Brand Name: theophyll [...] mg capsule 04/22 completed Medicatio n ID: [id number] Dur ation Value: 90 Brand Name: flaxseed oil Send Method: E-Prescri bed Subs Allowed: subs OK Specia l Instructi on: TAKE 2-3 CAPSULES BY MOUTH DAILY Med icationGe nericName : flaxseed oil Medic ation ID: [id number] Dur ation Value: 90 Brand Name: flaxseed oil Send Method: E-Prescri bed Subs Allowed: subs OK Specia l Instructi on: TAKE 2-3 CAPSULES BY MOUTH DAILY Med icationGe nericName : flaxseed oil Not Available Not Available Not Available mupirocin 2 % topical ointment 04/22 completed Medicatio n ID: [id number] Dur ation Value: 7 Brand Name: mupirocin Send Method: E-Prescri bed Subs Allowed: subs OK Specia l Instructi on: APPLY A SMALL AMOUNT TO AFFECTED AREA THREE TIMES A DAY Medic ationGene ricName: mupirocin Medicati on ID: [id number] Dur ation Value: 7 Brand Name: mupirocin Send Method: E-Prescri bed Subs Allowed: subs OK Specia l Instructi on: APPLY A SMALL AMOUNT TO AFFECTED AREA THREE TIMES A DAY Medic ationGene ricName: mupirocin Not Available Not Available Not Available polyethyl mesfin glycol 3350 17 gram/dose oral powder 04/22 completed Medicatio n ID: [id number] Dur ation Value: 30 Brand Name: polyethyl mesfin glycol 3350 Send Method: E-Prescri bed Subs Allowed: subs OK Specia l Instructi on: DISSOLVE 1 CAPFULE IN 4-8 OZ OF LIQUID DAILY NEEDED Me dicationG enericNam e: polyethyl mesfin glycol 3350 Medi cation ID: [id number] Dur ation Value: 30 Brand Name: polyethyl mesfin glycol 3350 Send Method: E-Prescri bed Subs Allowed: subs OK Specia l Instructi on: DISSOLVE 1 CAPFULE IN 4-8 OZ OF LIQUID DAILY NEEDED Me dicationG enericNam e: polyethyl mesfin glycol 3350 Not Available Not Available Not Available imipramin e 25 mg tablet 04/22 completed Medicatio n ID: [id number] Dur ation Value: 30 Brand Name: imipramin e HCl Send Method: E-Prescri bed Subs Allowed: subs OK Specia l Instructi on: TAKE 1 TABLET BY MOUTH EVERY MORNING AND 3 TABLETS EVERY EVENING M edication GenericNa me: imipramin e HCl Medic ation ID: [id number] Dur ation Value: 30 Brand Name: imipramin e HCl Send Method: E-Prescri bed Subs Allowed: subs OK Specia l Instructi on: TAKE 1 TABLET BY MOUTH EVERY MORNING AND 3 TABLETS EVERY EVENING M edication GenericNa me: imipramin e HCl Not Available Not Available Not Available loratadin e 10 mg tablet 2014 active Medicatio n ID: [id number] Dur ation Value: 30 Brand Name: loratadin e Send Method: E-Prescri bed Subs Allowed: subs OK Specia l Instructi on: TAKE 1 TABLET BY MOUTH DAILY Med icationGe nericName : loratadin e Medicat ion ID: [id number] Dur ation Value: 30 Brand Name: loratadin e Send Method: E-Prescri bed Subs Allowed: subs OK Specia l Instructi on: TAKE 1 TABLET BY MOUTH DAILY Med icationGe nericName : loratadin e Not Available Not Available Not Available Abilify 15 mg tablet 2014 [place] Medic[place] n ID: [id number] Dur ation Value: 90 Brand Name: Abilify S end Method: E-Prescri bed Subs Allowed: subs OK Specia l Instructi on: TAKE 1 TABLET BY MOUTH EVERY MORNING M edication GenericNa me: Abilify M edication ID: [id number] Dur ation Value: 90 Brand Name: Abilify S end Method: E-Prescri bed Subs Allowed: subs OK Specia l Instructi on: TAKE 1 TABLET BY MOUTH EVERY MORNING M edication GenericNa me: Abilify Not Available Not Available Not Available Vesicare 5 mg tablet 2014 active Medicatio n ID: [id number] Dur ation Value: 90 Brand Name: Vesicare Send Method: E-Prescri bed Subs Allowed: subs OK Specia l Instructi on: TAKE 1 TABLET BY MOUTH EVERY MORNING M edication GenericNa me: Vesicare Medicatio n ID: [id number] Dur ation Value: 90 Brand Name: Vesicare Send Method: E-Prescri bed Subs Allowed: subs OK Specia l Instructi on: TAKE 1 TABLET BY MOUTH EVERY MORNING M edication GenericNa me: Vesicare Not Available Not Available Not Available Cogentin 04/22 completed Medicatio n ID: [id number] Br and Name: cogentin Send Method: E-Prescri bed Subs Allowed: subs OK Medica tionGener icName: cogentin Medicatio n ID: [id number] Br and Name: cogentin Send Method: E-Prescri [...] Note 8680 MIKAEL DORMAN MD [facility] [address] [address] 04/22/2024 10:32:31 04/22/2024 11:17:22 Mass of parapharyngeal space [id number] R22.1 Health Concerns Section Related Observation LastModified by Organization Detai ls LastModified Time None Recorded Concern Status LastModified by Organization Details LastModified Time None Recorded Advance Directives Directive None Recorded Payers Encounter Date Sequence Insurance Name Policy Number Policy Cobb Covered Member ID Cobb Member ID Guarantor Name 04/22/2024 2 [place] [facility] Kirsten Barberle [id number] Kirsten Ronquillo 04/22/2024 1 MEDICARE B-[place] [facility] Kirsten Ronquillo [id number] Kirsten Ronquillo Notes Date Note Type Note [...] thyroidectomy in October 2023 MIKAEL DORMAN MD [address] [place] [address], [place], [address], [place] [facility] 04/22/2024 11:11:35 OBGyn Episode No OBEpisode recorded.
--- OUTSIDE RECORDS SUMMARY | 2024-12-24 12:08 | XMS_ITS | Clinical Summary ---
Author Organization [facility] Address [address] [place] [address] Phone Care Team Providers Care Roller Name Role Phone Sher Patrick MD Primary Care Provider [phone] Allergies Active Allergy Reactions Criticality Noted Date [...] 10/05/2024 Telephone [facility] [address] [place] [address] Puneet Sesay MD 09/26/2024 3:15 PM EST Office Visit [facility] [address] [place] [address] Puneet Sesay MD Hypo-osmolality and hyponatremia (Primary [...] topic Insurance MEDICARE [place]ICAID [place] Care Teams Roller Relationship Specialty Start Date End Date Sher Patrick MD [address] [place], [place] PCP - General Internal Medicine 09/17/24
--- OUTSIDE RECORDS SUMMARY | 2024-12-24 12:08 | XMS_ITS | Referral Summary ---
Author Organization [facility] Address [address] [place] [address] Care Team Providers Care Audio Visual Production Specialist Name Role Phone Sher Patrick Primary Care Provider [phone] Encounters Date Type Department Care Team Description 11/15/2024 Orders Only [facility] Colorectal Surgery [address] [place] [address] Php Software Engineer: Kori Mike RN Colorectal cancer (Primary Dx) 11/14/2024 Telephone [facility] Colorectal Surgery [address] [place] [address] Php Software Engineer: Kori Mike, LAY 11/04/2024 7:45 AM EST - 11/04/2024 10:15 AM EST Surgery [facility] [address] [place] [address] Catracho Vidal MD MPH TRANSANAL ENDOSCOPIC MICROSURGERY, possible TAMIS. with air seal [89828 (CPT??)] 10/31/2024 10:09 PM EST - 11/04/2024 5:34 PM EST Hospital Encounter [facility] [address] [place] [address] Catracho Vidal MD MPH Anorectal polyp Discharge Disposition: Home or Self Care () 11/04/2024 8:14 AM EST Anesthesia Event [facility] [address] [place] [address] Sarah Chapa MD Prasad, Abhinav Vibhas, MD 10/24/2024 Documentation [facility] [address] [place] [address] Php Software Engineer: Boyd Connors MD 10/23/2024 10:20 AM EST Follow-Up [facility] [address] [place] [address] Php Software Engineer: Boyd Connors MD Hyponatremia (Primary Dx) from [...] 8:48:00 EST, Dry Weight 4 Active INV [id number] triamcinolone acetoniden 0.1% topical ointment Apply topically [...] drink = 0.6 oz pur e alcohol) [facility] Utilities Answer Date Recorded In the [...] Department Care Team (Latest Contact Info) Description 05/09/2025 2:00 PM EDT Hospital Encounter [facility] [address] [place] [address] Catracho Vidal MD MPH [address] [place] [address] 05/12/2025 2:00 PM EDT - 05/12/2025 3:05 PM EDT Surgery [facility] [address] [place] [address] Catracho Vidal MD MPH [address] [place] [address] Colonoscopy Screening, High Risk with Possible Moderate Sedation [65917 (CPT??)] Scheduled Procedures Name Priority Associated Diagnoses Date/Ti me COLONOSCOPY SCREENING, HIGH RISK WITH POSSIBLE MODERATE SEDATION Colorectal cancer (HCC) 05/12/2025 2:00 PM EDT Procedures * Due to [place] [employer] law, this organization might not be sharing negative HIV tests. Procedure Name Priority Date/Time Associated Diagnosis Comments TISSUE EXAM Routine 11/04/2024 10:00 AM EST Anorectal polyp DE EXCIS CHALAZION,GEN ANESTHESIA 11/04/2024 7:59 AM EST [...] to Health Maintenance Results * Due to [place] state law, this organization might not be sharing negative HIV tests. 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 - See note Note: The fragmented nature of specimen precludes the evaluation of margin status. [facility] MANUAL 11/05/2024 5:18 PM EST [facility] at 1718 EST Clinical History Pre-op diagnosis: Anorectal polyp [K62.0, K62.1] [facility] MANUAL 11/05/2024 5:18 PM EST [facility] ANATOMIC PATHOLOGY LABORATORY Gross Description 1. [...] DENTAL CLINIC MANUAL 11/05/2024 5:18 PM EST [facility] PATHOLOGY LABOR[facility] Gross Description User Grossing complete by Tootie Somers on 11/04/2024 3:24 PM [facility] MANUAL 11/05/2024 5:18 PM EST [facility] ANATOMIC PATHOLOGY LABORATORY Embedded Images [facility] MANUAL 11/05/2024 5:18 PM EST [facility] THREE ANATOMIC PATHOLOGY LABORATORY Resulting Agency Case was signed out at [facility], Department of Pathology, [employer] 3 CLIA [id number] [facility] MANUAL 11/05/2024 5:18 PM EST [facility] LABOR[facility] Report Header Surgical Pathology Report ? Case: [id number] ? Authorizing Provider: ??Catracho Vidal MD MPH ?Collected: ? 11/04/2024 1000 ? Ordering Location: ? [facility] ? Received: ?11/04/2024 1158 ? [facility] ? Operating Room ? Pathologist: ? Mirella Cai MD ? Specimen: ?Anus, rectal polyp ? 11/05/2024 5:18 PM EST [facility] Tissue Anal structure / Unknown 11/04/2024 10:00 AM EST 11/04/2024 11:58 AM EST Comment:Pre-op diagnosis: Anorectal polyp [K62.0, K62.1] Catracho Vidal MD MPH LAB PATHOLOGY/CYTOLOGY ORDERA BLES Final Result [facility] ANATOMIC PATHOLOGY LABORATORY [address] [place] [address], [facility] ANATOMIC PATHOLOGY LABORATORY [address] [place] [address], [place] * Phosphorus (11/03/2024 12:56 AM EST) Only the most recent of2 resultswithin the time period is included. Phosphorus 2.7 2.5 - 4.5 mg/dL 11/03/2024 2:02 AM EST [facility] PATHOLOGY LABORATORY Blood Structure of peripheral vein / Unknown Venipuncture / Unknown 11/03/2024 12:56 AM EST 11/03/2024 1:26 AM EST Catracho Vidal MD MPH LAB BLOOD ORDERABLES Final Re sult Performing Organization Address [facility] Co de Phone Number [facility] PATHOLOGY LABORATORY [address] [place] [address], [place] * Magnesium (11/03/2024 12:56 AM EST) Only the most recent of2 resultswithin the time period is included. MG 2.3 1.6 - 2.4 mg/dL 11/03/2024 2:02 AM EST [facility] PATHOLOGY LAB[facility]AT[facility] Blood Structure of peripheral vein / Unknown Venipuncture / Unknown 11/03/2024 12:56 AM EST 11/03/2024 1:26 AM EST Catracho Vidal MD MPH LAB BLOOD ORDERABLES Final Re sult Performing Organization Address [facility] Co de Phone Number [facility] CLINICAL PATHOLOGY LABORATORY [address] [place] [address], [place] * Basic Metabolic Panel (11/03/2024 12:56 AM EST) Only the most recent of3 resultswithin the time period is included. NA 138 135 - 145 mmol/L 11/03/2024 2:02 AM [facility] CLINICAL PATHOLOGY LABORATORY K 3.9 3.5 - 5.3 mmol/L 11/03/2024 2:02 AM [facility] CLINICAL PATHOLOGY [facility] Cl 104 98 - 107 mmol/L 11/03/2024 2:02 AM [facility] PATHOLOG[facility] CO2 24 22 - 32 mmol/L 11/03/2024 2:02 AM [facility] PATH[facility] BUN 13 7 - 23 mg/dL 11/03/2024 2:02 AM [facility] PATH[facility] Creatinine 0.70 0.50 - 1.20 mg/dL 11/03/2024 2:02 AM [facility] PATH[facility] Glucose 94 65 - 99 mg/dL 11/03/2024 2:02 AM [facility] PATH[facility] Calcium 8.7 8.6 - 10.5 mg/dL 11/03/2024 2:02 AM [facility] Anion Gap 10 5 - 15 11/03/2024 2:02 AM [facility] eGFR >90 >=60 mL/min/1. 73m2 11/03/2024 2:02 AM [facility] PATH[facility] Comment:The estimated glomer ular [...] MPH LAB BLOOD ORDERABLES Final Re sult [facility] Organization Address City/State/ZIP Co de Phone Number [facility] [address] [place] [address], [place] * COLONOSCOPY (08/05/2020) Narrative Procedure Note Catracho Vidal MD MPH - 08/05/2020 7:31 AM EST Gastroenterology Patient Name: Kirsten Ronquillo Procedure Date: 08/05/2020 7:31 AM Date of : 1955 Admit Type: Inpatient Age: 64 Room: [place] [address] Gender: Female Note Status: Finalized Attending MD: [...] and oxygen saturations were monitored continuously. 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
--- OUTSIDE RECORDS SUMMARY | 2024-12-24 12:08 | XMS_ITS | Encounter Summary ---
Author Organization [facility] Address [address] [place] [address] Care Team Providers Care Dermatology Technician Name Role Phone Sher Patrick Primary Care Provider [phone] Reason for Visit * Reason Onset Date Comments Needs to reschedule 09/28/2020 Encounter Details Date Type Department Care Team (Late st Contact Info) Description 09/28/2020 Telephone [facility] Central Scheduling Department [address] [place] [address] Telephone Intake, Staff Needs to reschedule Social [...] Description 05/09/2025 2:00 PM EDT Hospital Encounter [facility] [address] [place] [address] Catracho Vidal MD MPH [address] [place] [address] 05/12/2025 2:00 PM EDT - 05/12/2025 3:05 PM EDT Surgery [facility] [address] [place] [address] Catracho Vidal MD MPH [address] [place] [address] Colonoscopy Screening, High Risk with Possible Moderate Sedation [43050 (CPT??)] Scheduled Procedures Name Priority Associated Diagnoses Date/Ti me COLONOSCOPY SCREENING, HIGH RISK WITH POSSIBLE MODERATE SEDATION Colorectal cancer (HCC) 05/12/2025 2:00 PM EDT documented as of this encounter Visit Diagnoses Not on filedocumented in this encounter Additional Health Concerns Infection Onset Date Last Indicated Resolved Time 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
--- OUTSIDE RECORDS SUMMARY | 2024-12-24 12:08 | XMS_ITS | Clinical Summary ---
Author Organization [facility] Address [address] [place] [address] Care Team Providers Care Sweatband Drummer Name Role Phone Sher Patrick Primary Care Provider [phone] Allergies Active Allergy Reactions Criticality Noted Date [...] 8:48:00 EST, Dry Weight 4 Active INV [id number] triamcinolone acetoniden 0.1% topical ointment Apply topically [...] Department Care Team Description 11/15/2024 Orders Only [facility] Colorectal Surgery [address] [place] [address] Clinical Office Technician: Kori Mike, RN Colorectal cancer (Primary Dx) 11/14/2024 Telephone [facility] Colorectal Surgery [address] [place] [address] Clinical Office Technician: Kori Mike, LAY 11/04/2024 8:14 AM EST Anesthesia Event [facility] Operating Room [address] [place] [address] Sarah Chapa MD Prasad, Ross Liriano MD 11/04/2024 7:45 AM EST - 11/04/2024 10:15 AM EST Surgery [facility] Operating Room [address] [place] [address] Catracho Vidal MD MPH TRANSANAL ENDOSCOPIC MICROSURGERY, possible TAMIS. with air seal [87177 (CPT??)] 10/31/2024 10:09 PM EST - 11/04/2024 5:34 PM EST Hospital Encounter [facility] West Ground Unit [address] [place] [address] Catracho Vidal MD MPH Anorectal polyp Discharge Disposition: Home or Self Care () 10/24/2024 Documentation [facility] [address] [place] [address] Clinical Office Technician: Boyd Connors MD 10/23/2024 10:20 AM EST Follow-Up [facility] [address] [place] [address] Clinical Office Technician: Boyd Connors MD Hyponatremia (Primary Dx) from [...] drink = 0.6 oz pur e alcohol) [facility] Utilities Answer Date Recorded In [...] Description 05/09/2025 2:00 PM EDT Hospital Encounter [facility] Operating Room [address] [id number] Catracho Vidal MD MPH [address] [place], [place] [phone] 05/12/2025 2:00 PM EDT - 05/12/2025 3:05 PM EDT Surgery [facility] Operating Room [address] [place] [address] Catracho Vidal MD MPH [address] [place] [address] Colonoscopy Screening, High Risk with Possible Moderate Sedation [69046 (CPT??)] Scheduled Procedures Name Priority Associated Diagnoses Date/Ti me COLONOSCOPY SCREENING, HIGH RISK WITH POSSIBLE MODERATE SEDATION Colorectal cancer (HCC) 05/12/2025 2:00 PM EDT Health Maintenance Due Date Last Done [...] complete this topic Procedures * Due to [facility] law, this organization might not be sharing negative HIV tests. Procedure Name Priority Date/Time Associated Diagnosis Comments TISSUE EXAM Routine 11/04/2024 10:00 AM EST Anorectal polyp [place] EXCIS CHALAZION,GEN ANESTHESIA 11/04/2024 7:59 AM EST [...] to Health Maintenance Results * Due to [facility] law, this organization might not be sharing negative HIV tests. 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 - See note Note: The fragmented nature of specimen precludes the evaluation of margin status. [facility]UAL 11/05/2024 5:18 PM EST [facility] at 1718 EST Clinical History Pre-op diagnosis: Anorectal polyp [K62.0, K62.1] [facility]UAL 11/05/2024 5:18 PM EST [facility]OLOG[facility] LAB[facility] Gross Description 1. Renettaus [...] quadrisected 1G-1 fragment bisected 1H-smallest fragmented bisected [facility] MANUAL 11/05/2024 5:18 PM EST [facility] PATHOLOG[facility] LAB[facility] Gross Description User Grossing complete by Tootie Somers on 11/04/2024 3:24 PM [facility] MANUAL 11/05/2024 5:18 PM EST [facility] PATHOLOGY LAB[facility] Embedded Images [facility] MANUAL 11/05/2024 5:18 PM EST [facility] [email or web address] [facility] PATHOLOGY LABORATORY Resulting Agency Case was signed out at [facility], Department of Pathology, [employer] 3 CLIA [id number] [facility] MANUAL 11/05/2024 5:18 PM EST [facility] [email or web address] [facility] LAB[facility] Report Header Surgical Pathology Report ? Case: [id number] ? Authorizing Provider: ??Catracho Vidal MD MPH ?Collected: ? 11/04/2024 1000 ? Ordering Location: ? [facility] ? Received: ?11/04/2024 1158 ? [facility] ? Operating Room ? Pathologist: ? Mirella Cai MD ? Specimen: ?Anus, rectal polyp ? 11/05/2024 5:18 PM EST [facility] Tissue Anal structure / Unknown 11/04/2024 10:00 AM EST 11/04/2024 11:58 AM EST Comment:Pre-op diagnosis: Anorectal polyp [K62.0, K62.1] us Catracho Vidal MD MPH LAB PATHOLOGY/CYTOLOGY ORDERA BLES Final Result [facility]AT[facility] PATHOLOG[facility] LABORATORY [address] [place] [address], [facility] ANATOMIC PATHOLOGY LABORATORY [address] [place] [address], * Phosphorus (11/03/2024 12:56 AM EST) Only the most recent of2 resultswithin the time period is included. Phosphorus 2.7 2.5 - 4.5 mg/dL 11/03/2024 2:02 AM EST [facility] PATH[facility] Blood Structure of peripheral vein / Unknown Venipuncture / Unknown 11/03/2024 12:56 AM EST 11/03/2024 1:26 AM EST Catracho Vidal MD MPH LAB BLOOD ORDERABLES Final Re sult Performing Organization Address [facility] Co de Phone Number [facility] CLINICAL PATHOLOGY LABORATORY [address] [place] [address], * Magnesium (11/03/2024 12:56 AM EST) Only the most recent of2 resultswithin the time period is included. MG 2.3 1.6 - 2.4 mg/dL 11/03/2024 2:02 AM EST [facility] PATHOLOGY LAB[facility]AT[facility] Blood Structure of peripheral vein / Unknown Venipuncture / Unknown 11/03/2024 12:56 AM EST 11/03/2024 1:26 AM EST Catracho Vidal MD MPH LAB BLOOD ORDERABLES Final Re sult Performing Organization Address [facility] de Phone Number [facility] CLINICAL PATHOLOGY LABORATORY [address] [place] [address], * Basic Metabolic Panel (11/03/2024 12:56 AM EST) Only the most recent of3 resultswithin the time period is included. NA 138 135 - 145 mmol/L 11/03/2024 2:02 AM EST [facility] K 3.9 3.5 - 5.3 mmol/L 11/03/2024 2:02 AM EST [facility] Cl 104 98 - 107 mmol/L 11/03/2024 2:02 AM EST [facility] CO2 24 22 - 32 mmol/L 11/03/2024 2:02 AM EST [facility] BUN 13 7 - 23 mg/dL 11/03/2024 2:02 AM EST [facility] Creatinine 0.70 0.50 - 1.20 mg/dL 11/03/2024 2:02 AM EST [facility] Glucose 94 65 - 99 mg/dL 11/03/2024 2:02 AM EST [facility] Calcium 8.7 8.6 - 10.5 mg/dL 11/03/2024 2:02 AM EST [facility] Anion Gap 10 5 - 15 11/03/2024 2:02 AM EST [facility] PATHOLOG[facility] LAB[facility] eGFR >90 >=60 mL/min/1. 73m2 11/03/2024 2:02 AM EST [facility] CL[facility] PATH[facility] Comment:The estimated glomer ular [...] MPH LAB BLOOD ORDERABLES Final Re sult [facility] CL[facility] PATHOLOG[facility] LAB[facility] [address] [place] [address], * COLONOSCOPY (08/05/2020) Narrative Procedure Note Catracho Vidal MD MPH - 08/05/2020 7:31 AM EST Gastroenterology Patient Name: Kirsten Ronquillo Procedure Date: 08/05/2020 7:31 AM Date of : 1955 Admit Type: Inpatient Age: 64 Room: [place] [address] Gender: Female Note Status: Finalized Attending MD: [...] and oxygen saturations were monitored continuously. The CF-[id number] was introduced through the anus and advanced [...] s ESBL Comment:ESBL E.coli 08/03/2020 08/03/2020 Insurance [facility] MEDICARE Advance Directives Documents on File Type Date Recorded Patient Nuclear Medicine Supervisor Expl anation Advance Directive 07/05/2013 12:00 [...] Thompson Friend Health Care Agent Care Teams Sweatband Drummer Relationship Specialty Start Date End Date Sher Patrick [address] [place] [address] [place] [address] PCP - General 04/20/17
== END 2024-12-24 10:38 | disposition home or self-care (01) ==
LOC: HO.HOS 10:11
PROVIDERS: PCP Internal Medicine
DX: G56.02 Carpal tunnel syndrome, left upper limb (principal)
CPT/HCPCS: 99024

== ENCOUNTER → 2024-12-24 10:10 | Outpatient (BNVA) | payer MEDICARE, MEDICAID, SELFPAY | PROVIDERS: PCP Internal Medicine | DX: Z47.89 Encounter for other orthopedic aftercare (principal); Z98.890 Other specified postprocedural states | CPT/HCPCS: 99212 ==

== ENCOUNTER 2025-01-10 17:05 | Outpatient (REF) | payer MEDICARE, MEDICAID, SELFPAY ==
--- OUTSIDE RECORDS SUMMARY | 2025-01-10 17:07 | XMS_ITS | Clinical Summary ---
Author Organization [facility] Address [address] [place] [address] Phone Care Team Providers Care Timber Grader Name Role Phone Sher Patrick MD Primary Care Provider [phone] Allergies Active Allergy Reactions Criticality Noted Date [...] Partial obstruction of small bowel Seizure disorder Social History Tobacco Use Types Packs/Day Years [...] Comments Breast Cancer Screening 1955 Pneumococcal Vaccine: 50+ Ye ars (1 of 2 - PCV) 1960 Colorectal Cancer Screening: Annual FOBT 2003 Colorectal Cancer Screening: Colonoscopy 2003 Colorectal Cancer Screening: Sigmoidoscopy 2003 Influenza Vaccine (Season Ended) 2025 07/05/20 21 Hepatitis B Vaccine Aged Out No longe r eligible based on patient's age to complete this topic Insurance Medicare Medicaid [place] Care Teams Timber Grader Relationship Specialty Start Date End Date Sher Patrick MD [address] [place] [address] [address] [place] PCP - General Internal Medicine 09/17/24
--- OUTSIDE RECORDS SUMMARY | 2025-01-10 17:07 | XMS_ITS | Referral Summary ---
Author Organization [facility] Address [address] [place] [address] Care Team Providers Care Russian History Professor Name Role Phone Sher Patrick Primary Care Provider [phone] Encounters Date Type Department Care Team Description 11/15/2024 Orders Only [facility] Colorectal Surgery [address] [place] [address] Firer Locomotive: Kori Mike RN Colorectal cancer (Primary Dx) 11/14/2024 Telephone [facility] Colorectal Surgery [address] [place] [address] Firer Locomotive: Kori Mike, LAY 11/04/2024 7:45 AM EST - 11/04/2024 10:15 AM EST Surgery [facility] Operating Room [address] [place] [address] Catracho Vidal MD MPH TRANSANAL ENDOSCOPIC MICROSURGERY, possible TAMIS. with air seal [33073 (CPT??)] 10/31/2024 10:09 PM EST - 11/04/2024 5:34 PM EST Hospital Encounter [facility] West Ground Unit [address] [place] [address] Catracho Vidal MD MPH Anorectal polyp Discharge Disposition: Home or Self Care () 11/04/2024 8:14 AM EST Anesthesia Event [facility] Operating Room [address] [place] [address] Sarah Chapa MD Prasad, Abhinav Vibhas, MD 10/24/2024 Documentation [facility]ph[facility] Clinic [address] [place] [address] Firer Locomotive: Boyd Connors MD 10/23/2024 10:20 AM EST Follow-Up [facility] [address] [place] [address] Firer Locomotive: Boyd Connors MD Hyponatremia (Primary Dx) from [...] 8:48:00 EST, Dry Weight 4 Active INV [id number] triamcinolone acetoniden 0.1% topical ointment Apply topically [...] drink = 0.6 oz pur e alcohol) [facility] Utilities Answer Date Recorded In the past [...] Description 05/09/2025 2:00 PM EDT Hospital Encounter [facility] Operating Room [address] [place] [address] Catracho Vidal MD MPH [address] [place] [address] 05/12/2025 2:00 PM EDT - 05/12/2025 3:05 PM EDT Surgery [facility] Operating Room [address] [place] [address] Catracho Vidal MD MPH [address] [place] [address] Colonoscopy Screening, High Risk with Possible Moderate Sedation [03902 (CPT??)] Scheduled Procedures Name Priority Associated Diagnoses Date/Ti me COLONOSCOPY SCREENING, HIGH RISK WITH POSSIBLE MODERATE SEDATION Colorectal cancer (HCC) 05/12/2025 2:00 PM EDT Procedures * Due to [place] [facility] law, this organization might not be sharing negative HIV tests. Procedure Name Priority Date/Time Associated Diagnosis Comments TISSUE EXAM Routine 11/04/2024 10:00 AM EST Anorectal polyp DC EXCIS CHALAZION,GEN ANESTHESIA 11/04/2024 7:59 AM EST [...] to Health Maintenance Results * Due to [place] state law, this organization might not be sharing negative HIV tests. 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 - See note Note: The fragmented nature of specimen precludes the evaluation of margin status. [facility] MANUAL 11/05/2024 5:18 PM EST [facility] [employer] [facility] ANATOMIC PATHOLOGY LABORATORY at 1718 EST Clinical History Pre-op diagnosis: Anorectal polyp [K62.0, K62.1] [facility] MANUAL 11/05/2024 5:18 PM EST [facility]AT[facility] PATHOLOG[facility] LABOR[facility] Gross Description 1. [...] quadrisected 1G-1 fragment bisected 1H-smallest fragmented bisected [facility] MANUAL 11/05/2024 5:18 PM EST [facility] PATHOLOG[facility] Gross Description User Grossing complete by Tootie Somers on 11/04/2024 3:24 PM [facility] MANUAL 11/05/2024 5:18 PM EST [facility] ANATOMIC PATHOLOGY LABORAT[facility] Embedded Images [facility] MANUAL 11/05/2024 5:18 PM EST [facility] [employer] THREE ANATOMIC PATHOLOGY LABORATORY Resulting Agency Case was signed out at [facility], Department of Pathology, Biotech 3 CLIA [id number] [facility] MANUAL 11/05/2024 5:18 PM EST [facility] [employer] THREE ANATOMIC PATHOLOGY LABORATORY Report Header Surgical Pathology Report ? Case: [id number] ? Authorizing Provider: ??Catracho Vidal MD MPH ?Collected: ? 11/04/2024 1000 ? Ordering Location: ? [facility] ? Received: ?11/04/2024 1158 ? [facility] ? Operating Room ? Pathologist: ? Mirella Cai MD ? Specimen: ?Anus, rectal polyp ? 11/05/2024 5:18 PM EST [facility] Tissue Anal structure / Unknown 11/04/2024 10:00 AM EST 11/04/2024 11:58 AM EST Comment:Pre-op diagnosis: Anorectal polyp [K62.0, K62.1] Catracho Vidal MD MPH LAB PATHOLOGY/CYTOLOGY ORDERA BLES Final Result [facility] ANATOMIC PATHOLOGY LABORATORY [address] [place] [address], [facility] ANATOMIC PATHOLOGY LABORATORY [address] [place] [address], [place] * Phosphorus (11/03/2024 12:56 AM EST) Only the most recent of2 resultswithin the time period is included. Phosphorus 2.7 2.5 - 4.5 mg/dL 11/03/2024 2:02 AM EST [facility] Blood Structure of peripheral vein / Unknown Venipuncture / Unknown 11/03/2024 12:56 AM EST 11/03/2024 1:26 AM EST Catracho Vidal MD MPH LAB BLOOD ORDERABLES Final Re sult Performing Organization Address [facility] Co de Phone Number [facility] PATH[facility] [address] [place] [address], [place] * Magnesium (11/03/2024 12:56 AM EST) Only the most recent of2 resultswithin the time period is included. MG 2.3 1.6 - 2.4 mg/dL 11/03/2024 2:02 AM EST [facility] Blood Structure of peripheral vein / Unknown Venipuncture / Unknown 11/03/2024 12:56 AM EST 11/03/2024 1:26 AM EST Catracho Vidal MD MPH LAB BLOOD ORDERABLES Final Re sult Performing Organization Address [facility] Co de Phone Number [facility] CLINICAL PATHOLOGY LABORATORY [address] [place] [address], [place] * Basic Metabolic Panel (11/03/2024 12:56 AM EST) Only the most recent of3 resultswithin the time period is included. NA 138 135 - 145 mmol/L 11/03/2024 2:02 AM [facility] CLINICAL PATHOLOGY LABORATORY K 3.9 3.5 - 5.3 mmol/L 11/03/2024 2:02 AM [facility] CLINICAL PATHOLOGY LABORAT[facility] Cl 104 98 - 107 mmol/L 11/03/2024 2:02 AM [facility] PATHOLOGY LAB[facility] CO2 24 22 - 32 mmol/L 11/03/2024 2:02 AM [facility] PATHOLOG[facility] LAB[facility] BUN 13 7 - 23 mg/dL 11/03/2024 2:02 AM [facility] PATHOLOG[facility] Creatinine 0.70 0.50 - 1.20 mg/dL 11/03/2024 2:02 AM [facility] PATHOLOG[facility] LAB[facility] Glucose 94 65 - 99 mg/dL 11/03/2024 2:02 AM [facility] PATHOLOG[facility] LAB[facility] Calcium 8.7 8.6 - 10.5 mg/dL 11/03/2024 2:02 AM [facility] PATHOLOGY LAB[facility] Anion Gap 10 5 - 15 11/03/2024 2:02 AM [facility] PATHOLOG[facility] LAB[facility] eGFR >90 >=60 mL/min/1. 73m2 11/03/2024 2:02 AM [facility] PATHOLOGY LABOR[facility]ORY Comment:The estimated glomer ular filtration [...] MPH LAB BLOOD ORDERABLES Final Re sult [facility] Organization Address City/State/ZIP Co de Phone Number [facility] [address] [place] [address], [place] * COLONOSCOPY (08/05/2020) Narrative Procedure Note Catracho Vidal MD MPH - 08/05/2020 7:31 AM EST Gastroenterology Patient Name: Kirsten Ronquillo Procedure Date: 08/05/2020 7:31 AM Date of : 1955 Admit Type: Inpatient Age: 64 Room: [place] [id number] Gender: Female Note Status: Finalized Attending MD: [...] and oxygen saturations were monitored continuously. 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
--- OUTSIDE RECORDS SUMMARY | 2025-01-10 17:07 | XMS_ITS | Encounter Summary ---
Author Organization [facility] Address [address] [place] [address] Care Team Providers Care Aluminum Fabrication Supervisor Name Role Phone Sher Patrick Primary Care Provider [phone] Reason for Visit * Reason Onset Date Comments Needs to reschedule 09/28/2020 Encounter Details Date Type Department Care Team (Late st Contact Info) Description 09/28/2020 Telephone [facility] Central Scheduling Department [address] [place] [address] Telephone Intake, Staff Needs to reschedule Social [...] Description 05/09/2025 2:00 PM EDT Hospital Encounter [facility] Operating Room [address] [place] [address] Catracho Vidal MD MPH [address] [place] [address] 05/12/2025 2:00 PM EDT - 05/12/2025 3:05 PM EDT Surgery [facility] Operating Room [address] [place] [address] Catracho Vidal MD MPH [address] [place] [address] Colonoscopy Screening, High Risk with Possible Moderate Sedation [92408 (CPT??)] Scheduled Procedures Name Priority Associated Diagnoses [...] documented as of this encounter Care Teams Aluminum Fabrication Supervisor Relationship Specialty Start Date End Date Sher Patrick [address] [place] [address] [place] [address] PCP - General 04/20/17 documented as of this encounter
--- OUTSIDE RECORDS SUMMARY | 2025-01-10 17:07 | XMS_ITS | Clinical Summary ---
Author Organization [facility] Address [address] [place] [address] Care Team Providers Care Information Security Risk Analyst Name Role Phone Sher Patrick Primary Care Provider [phone] Allergies Active Allergy Reactions Criticality Noted Date [...] 8:48:00 EST, Dry Weight 4 Active INV [id number] triamcinolone acetoniden 0.1% topical ointment Apply topically [...] Department Care Team Description 11/15/2024 Orders Only [facility] Colorectal Surgery [address] [place] [phone] Cs Associate: Kori Mike, RN Colorectal cancer (Primary Dx) 11/14/2024 Telephone [facility] Colorectal Surgery [address] [place] [address] Cs Associate: Kori Mike, LAY 11/04/2024 8:14 AM EST Anesthesia Event [facility] Operating Room [address] [place] [address] Sarah Chapa MD Prasad, Ross Liriano MD 11/04/2024 7:45 AM EST - 11/04/2024 10:15 AM EST Surgery [facility] Operating Room [address] [place] [address] Catracho Vidal MD MPH TRANSANAL ENDOSCOPIC MICROSURGERY, possible TAMIS. with air seal [37506 (CPT??)] 10/31/2024 10:09 PM EST - 11/04/2024 5:34 PM EST Hospital Encounter [facility] West Ground Unit [address] [place] [address] Catracho Vidal MD MPH Anorectal polyp Discharge Disposition: Home or Self Care () 10/24/2024 Documentation [facility] [address] [place] [address] Cs Associate: Boyd Connors MD 10/23/2024 10:20 AM EST Follow-Up [facility] [address] [place] [address] Cs Associate: Boyd Connors MD Hyponatremia (Primary Dx) from [...] drink = 0.6 oz pur e alcohol) [facility] Utilities Answer Date Recorded In the [...] Description 05/09/2025 2:00 PM EDT Hospital Encounter [facility] Operating Room [address] [phone] Catracho Vidal MD MPH [address], [place] [phone] 05/12/2025 2:00 PM EDT - 05/12/2025 3:05 PM EDT Surgery [facility] Operating Room [address] [place] [address] Catracho Vidal MD MPH [address] [place] [address] Colonoscopy Screening, High Risk with Possible Moderate Sedation [08438 (CPT??)] Scheduled Procedures Name Priority Associated Diagnoses [...] Td Vaccines (1 - Tdap) 08/18/2015 08/17/2015 COVID-19 Vaccine ( season) 2024 04/18/2024, 12/02/2020, 11/04/2020 Colonoscopy 07/02/2024 04/01/2024, 09/01, 03/20/2023, Additional history exists Alcohol/Substance Use Screening 10/02/2024 Depression Screening and Follow-Up 10/02/2024 Health Care Proxy Review 10/02/2024 Social Drivers of Health Annual Screening 10/02/2024 Influenza Vaccine (Season Ended) 2025 07/05/2021 Basic Metabolic Panel 11/03/2025 11/03/2024 , 11/02/2024, 10/23/2024, Additional history exists Hepatitis B Vaccines Aged Out No long er eligible based on patient's age to complete this topic Procedures * Due to [facility] law, this organization might not be sharing negative HIV tests. Procedure Name Priority Date/Time Associated Diagnosis Comments TISSUE EXAM Routine 11/04/2024 10:00 AM EST Anorectal polyp [place] EXCIS CHALAZION,GEN ANESTHESIA 11/04/2024 7:59 AM EST [...] to Health Maintenance Results * Due to [facility] law, this organization might not be sharing negative HIV tests. 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 - See note Note: The fragmented nature of specimen precludes the evaluation of margin status. [facility] 11/05/2024 5:18 PM EST [facility] at 1718 EST Clinical History Pre-op diagnosis: Anorectal polyp [K62.0, K62.1] [facility] 11/05/2024 5:18 PM EST [facility] Gross Description 1. Renettaus [...] quadrisected 1G-1 fragment bisected 1H-smallest fragmented bisected [facility] MANUAL 11/05/2024 5:18 PM EST [facility] Gross Description User Grossing complete by Tootie Somers on 11/04/2024 3:24 PM [facility] MANUAL 11/05/2024 5:18 PM EST [facility] Embedded Images [facility] MAN[facility] 11/05/2024 5:18 PM EST [facility] [employer] [facility] Resulting Agency Case was signed out at [facility], Department of Pathology, [employer] 3 CLIA [id number] [facility] MANUAL 11/05/2024 5:18 PM EST [employer] [facility] Report Header Surgical Pathology Report ? Case: [id number] ? Authorizing Provider: ??Catracho Vidal MD MPH ?Collected: ? 11/04/2024 1000 ? Ordering Location: ? [facility] ? Received: ?11/04/2024 1158 ? [facility] ? Operating Room ? Pathologist: ? Mirella Cai MD ? Specimen: ?Anus, rectal polyp ? 11/05/2024 5:18 PM EST [facility] Tissue Anal structure / Unknown 11/04/2024 10:00 AM EST 11/04/2024 11:58 AM EST Comment:Pre-op diagnosis: Anorectal polyp [K62.0, K62.1] us Catracho Vidal MD MPH LAB PATHOLOGY/CYTOLOGY ORDERA BLES Final Result [facility] [employer] [facility] [address] [place] [address], [facility] [address] [place] [address], * Phosphorus (11/03/2024 12:56 AM EST) Only the most recent of2 resultswithin the time period is included. Phosphorus 2.7 2.5 - 4.5 mg/dL 11/03/2024 2:02 AM EST [facility] Blood Structure of peripheral vein / Unknown Venipuncture / Unknown 11/03/2024 12:56 AM EST 11/03/2024 1:26 AM EST Catracho Vidal MD MPH LAB BLOOD ORDERABLES Final Re sult Performing Organization Address City/[facility] Co de Phone Number [facility] [address] [place] [address], * Magnesium (11/03/2024 12:56 AM EST) Only the most recent of2 resultswithin the time period is included. MG 2.3 1.6 - 2.4 mg/dL 11/03/2024 2:02 AM EST [facility] Blood Structure of peripheral vein / Unknown Venipuncture / Unknown 11/03/2024 12:56 AM EST 11/03/2024 1:26 AM EST Catracho Vidal MD MPH LAB BLOOD ORDERABLES Final Re sult Performing Organization Address [facility] de Phone Number [facility] [address] [place] [address], * Basic Metabolic Panel (11/03/2024 12:56 AM EST) Only the most recent of3 resultswithin the time period is included. NA 138 135 - 145 mmol/L 11/03/2024 2:02 AM EST [facility] K 3.9 3.5 - 5.3 mmol/L 11/03/2024 2:02 AM EST [facility] Cl 104 98 - 107 mmol/L 11/03/2024 2:02 AM EST [facility] CO2 24 22 - 32 mmol/L 11/03/2024 2:02 AM EST [facility] BUN 13 7 - 23 mg/dL 11/03/2024 2:02 AM EST [facility] Creatinine 0.70 0.50 - 1.20 mg/dL 11/03/2024 2:02 AM EST [facility] Glucose 94 65 - 99 mg/dL 11/03/2024 2:02 AM EST [facility] Calcium 8.7 8.6 - 10.5 mg/dL 11/03/2024 2:02 AM EST [facility] Anion Gap 10 5 - 15 11/03/2024 2:02 AM EST [facility] eGFR >90 >=60 mL/min/1. 73m2 11/03/2024 2:02 AM EST [facility] Comment:The estimated glomer [...] MPH LAB BLOOD ORDERABLES Final Re sult [facility] [address] [place] [address], * COLONOSCOPY (08/05/2020) Narrative Procedure Note Catracho Vidal MD MPH - 08/05/2020 7:31 AM EST Gastroenterology Patient Name: Kirsten Ronquillo Procedure Date: 08/05/2020 7:31 AM Date of : 1955 Admit Type: Inpatient Age: 64 Room: [place] [address] Gender: Female Note Status: Finalized Attending MD: [...] and oxygen saturations were monitored continuously. The [id number] was introduced through the anus and advanced [...] scheduled because the examination was incomplete. Catracho Vdial MD 08/05/2020 9:23:37 AM This report has been signed electronically. 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
[2025-01-10 17:11] LABS: Appearance Urine Cloudy; Color Urine Yellow; Glucose Urine UA Negative (Negative); Leukocyte Esterase Urine Large (3+) (Negative); Nitrite Urine Negative (Negative); UMIC TRIGGER UA YES; Urine Blood Small (1+) (Negative); Urine Ketones Negative (Negative); Urine Protein Trace mg/dL (Neg-Trace)
[2025-01-10 17:25] LABS: Bacteria Urine 4+ (None Seen); Hyaline Casts Urine 0-2 /LPF (0-2); Squamous Epithelial Cell Urine 0-2 /HPF (0-2); WBC Urine >50 /HPF (0-5)
== END 2025-01-10 17:06 | disposition home or self-care (01) ==
LOC: HO.LNP 17:05
PROVIDERS: Visit Provider Internal Medicine
DX: R30.0 Dysuria (principal)
CPT/HCPCS: 81001; 87086; 87088; 87186

== ENCOUNTER 2025-01-29 11:47 | Outpatient (REF) | payer MEDICARE, MEDICAID, SELFPAY ==
[2025-01-29 11:57] LABS: Appearance Urine Clear; Color Urine Yellow; Glucose Urine UA Negative (Negative); Leukocyte Esterase Urine Trace (Negative); Nitrite Urine Negative (Negative); PH 6.5 (5.0-9.0); UMIC TRIGGER UACC YES; Urine Blood Trace (Negative); Urine Ketones Negative (Negative); Urine Protein Negative (Neg-Trace)
[2025-01-29 12:02] LABS: Bacteria Urine None Seen (None Seen); Hyaline Casts Urine 0-2 /LPF (0-2); WBC Urine 0-5 /HPF (0-5)
--- OUTSIDE RECORDS SUMMARY | 2025-01-29 13:18 | XMS_ITS | Encounter Summary ---
Author Organization [facility] Address [address] [place] [address] Care Team Providers Care Trader Name Role Phone Sher Patrick Primary Care Provider [phone] Reason for Visit * Reason Onset Date Comments Needs to reschedule 09/28/2020 Encounter Details Date Type Department Care Team (Late st Contact Info) Description 09/28/2020 Telephone [facility] Central Scheduling Department [address] [place] [address] Telephone Intake, Staff Needs to reschedule Social [...] Description 05/09/2025 2:00 PM EDT Hospital Encounter [facility] Operating Room [address] [place] [address] Catracho Vidal MD MPH [address] [place] [address] 05/12/2025 2:00 PM EDT - 05/12/2025 3:05 PM EDT Surgery [facility] Operating Room [address] [place] [address] Catracho Vidal MD MPH [address] [place] [address] Colonoscopy Screening, High Risk with Possible Moderate Sedation [58240 (CPT??)] Scheduled Procedures Name Priority Associated Diagnoses [...] documented as of this encounter Care Teams Trader Relationship Specialty Start Date End Date Sher Patrick [address] [place] [address] [place] [address] PCP - General 04/20/17 documented as of this encounter
--- OUTSIDE RECORDS SUMMARY | 2025-01-29 13:18 | XMS_ITS | Clinical Summary ---
Author Organization [facility] Address [address] [place] [address] Phone Care Team Providers Care Canning Machine Operator Name Role Phone Sher Patrick MD Primary Care Provider [phone] Allergies Active Allergy Reactions Criticality Noted Date [...] Ye ars (1 of 2 - PCV) 1973 Colorectal Cancer Screening: Annual FOBT 2003 Colorectal Cancer Screening: Colonoscopy 2003 Colorectal Cancer Screening: Sigmoidoscopy 2003 Influenza Vaccine (Season Ended) 2025 07/05/20 21 Hepatitis B Vaccine Aged Out No longe r eligible based on patient's age to complete this topic Insurance Medicare Medicaid [place] Care Teams Canning Machine Operator Relationship Specialty Start Date End Date Sher Patrick MD [address] [place] [address] [address] [place] PCP - General Internal Medicine 09/17/24
--- OUTSIDE RECORDS SUMMARY | 2025-01-29 13:18 | XMS_ITS | Referral Summary ---
Author Organization [facility] Address [address] [place] [address] Care Team Providers Care Geological Scout Name Role Phone Sher Patrick Primary Care Provider [phone] Encounters Date Type Department Care Team Description 11/15/2024 Orders Only [facility] Colorectal Surgery [address] [place] [address] Office Machine Servicer Apprentice: Kori Mike RN Colorectal cancer (Primary Dx) 11/14/2024 Telephone [facility] Colorectal Surgery [address] [place] [address] Office Machine Servicer Apprentice: Kori Mike, LAY 11/04/2024 7:45 AM EST - 11/04/2024 10:15 AM EST Surgery [facility] Operating Room [address] [place] [address] Catracho Vidal MD MPH TRANSANAL ENDOSCOPIC MICROSURGERY, possible TAMIS. with air seal [33331 (CPT??)] 10/31/2024 10:09 PM EST - 11/04/2024 5:34 PM EST Hospital Encounter [facility] West Ground Unit [address] [place] [address] Catracho Vidal MD MPH Anorectal polyp Discharge Disposition: Home or Self Care () 11/04/2024 8:14 AM EST Anesthesia Event [facility] Operating Room [address] [place] [address] Sarah Chapa MD Prasad, Abhinav Vibhas, MD from Last 3 Months Allergies Active Allergy [...] mouth. 325mg by mouth Mon-Mon-Mon in AM 4 Active methenamine (HIPREX) 1 gram tablet See Instructions, TAKE 1 TABLET BY MOUTH TWICE DAILY., # 90 capsule, 3 Refills, Maintenance, 06/28/24 10:07:00 [facility], 154, cm, 11/02/23 15:00:00 EST, Height, 57.6, kg, 12/01/23 8:48:00 EST, Dry Weight 4 Active INV [id number] triamcinolone acetoniden 0.1% topical ointment Apply topically [...] every 4 hours as needed for pain. Active Active Problems Problem Noted Date Diagnosed [...] Small bowel obstruction 09/17/202209/02 Preoperative clearance 08/03/202008/06 Immunizations Immunization Administration Dates Next Due Influenza, Injectable, Quadrivalent, Preservativ e Free 07/05/2021 Social History Tobacco Use Types Packs/Day Years Used Date Smoking Tobacco: Never Smokeless Tobacco: Never Tobacco Cessation:Counseling Given: Not Answered Alcohol Use Standard Drinks/Week Comments Never 0 (1 standard drink = 0.6 oz pur e alcohol) [facility] Utilities Answer Date Recorded In the [...] Description 05/09/2025 2:00 PM EDT Hospital Encounter [facility] Operating Room [address] [place] [address] Catracho Vidal MD MPH [address] [place] [address] 05/12/2025 2:00 PM EDT - 05/12/2025 3:05 PM EDT Surgery [facility] Operating Room [address] [place] [address] Catracho Vidal MD MPH [address] [place] [address] Colonoscopy Screening, High Risk with Possible Moderate Sedation [41387 (CPT??)] Scheduled Procedures Name Priority Associated Diagnoses Date/Ti me COLONOSCOPY SCREENING, HIGH RISK WITH POSSIBLE MODERATE SEDATION Colorectal cancer (HCC) 05/12/2025 2:00 PM EDT Procedures * Due to [place] [employer] law, this organization might not be sharing negative HIV tests. Procedure Name Priority Date/Time Associated Diagnosis Comments TISSUE EXAM Routine 11/04/2024 10:00 AM EST Anorectal polyp NM EXCIS CHALAZION,GEN ANESTHESIA 11/04/2024 7:59 AM EST [...] METABOLIC PANEL Routine 11/02/2024 10:25 AM EST COLONOSCOPY 08/05/2020 from Last 3 Months or Most Recently Relevant to Health Maintenance Results * Due to [place] [employer] law, this organization might not be sharing negative HIV tests. 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 - See note Note: The fragmented nature of specimen precludes the evaluation of margin status. [facility] 11/05/2024 5:18 PM EST [facility] at 1718 EST Clinical History Pre-op diagnosis: Anorectal polyp [K62.0, K62.1] [facility] 11/05/2024 5:18 PM EST [facility] Gross Description 1. Derik [...] quadrisected 1G-1 fragment bisected 1H-smallest fragmented bisected [facility] MANUAL 11/05/2024 5:18 PM EST [facility] Gross Description User Grossing complete by Tootie Somers on 11/04/2024 3:24 PM [facility] MANUAL 11/05/2024 5:18 PM EST [facility] Embedded Images [facility] MANUAL 11/05/2024 5:18 PM EST [facility] [employer] [facility] Resulting Agency Case was signed out at [facility], Department of Pathology, Bi[employer] 3 [facility] [id number] [facility] MANUAL 11/05/2024 5:18 PM EST [facility] [employer] [facility] Report Header Surgical Pathology Report ? Case: [id number] ? Authorizing Provider: ??Catracho Vidal MD MPH ?Collected: ? 11/04/2024 1000 ? Ordering Location: ? [facility] ? Received: ?11/04/2024 1158 ? [facility] ? Operating Room ? Pathologist: ? Mirella Cai MD ? Specimen: ?Anus, rectal polyp ? 11/05/2024 5:18 PM EST [facility] Tissue Anal structure / Unknown 11/04/2024 10:00 AM EST 11/04/2024 11:58 AM EST Comment:Pre-op diagnosis: Anorectal polyp [K62.0, K62.1] us Catracho Vidal MD MPH LAB PATHOLOGY/CYTOLOGY ORDERA BLES Final Result [facility] [employer] [facility] PATH[facility] LABORATORY [address] [place] [address], [place] [facility] [address] [place] [address], * Phosphorus (11/03/2024 12:56 AM EST) Only the most recent of2 resultswithin the time period is included. Phosphorus 2.7 2.5 - 4.5 mg/dL 11/03/2024 2:02 AM EST [facility] LAB[facility] Blood Structure of peripheral vein / Unknown Venipuncture / Unknown 11/03/2024 12:56 AM EST 11/03/2024 1:26 AM EST Catracho Vidal MD MPH LAB BLOOD ORDERABLES Final Re sult Performing Organization Address [facility] Co de Phone Number [facility]ORY [address] [place] [address], * Magnesium (11/03/2024 12:56 AM EST) Only the most recent of2 resultswithin the time period is included. MG 2.3 1.6 - 2.4 mg/dL 11/03/2024 2:02 AM EST [facility] Blood Structure of peripheral vein / Unknown Venipuncture / Unknown 11/03/2024 12:56 AM EST 11/03/2024 1:26 AM EST Catracho Vidal MD MPH LAB BLOOD ORDERABLES Final Re sult Performing Organization Address [facility] Co de Phone Number [facility] [address] [place] [address], [place] * Basic Metabolic Panel (11/03/2024 12:56 AM EST) Only the most recent of2 resultswithin the time period is included. NA [...] 5 - 15 11/03/2024 2:02 AM EST [facility] eGFR >90 >=60 mL/min/1. 73m2 11/03/2024 2:02 AM EST [facility]ICAL PATHOLOG[facility] LAB[facility] Comment:The estimated [...] [facility] [address] [place] [address], [place] * COLONOSCOPY (08/05/2020) Narrative Procedure Note Catracho Vidal MD MPH - 08/05/2020 7:31 AM EST Gastroenterology Patient Name: Kirsten Ronquillo Procedure Date: 08/05/2020 7:31 AM Date of : 1955 Admit Type: Inpatient Age: 64 Room: [place] [address] Gender: Female Note Status: Finalized Attending MD: [...] and oxygen saturations were monitored continuously. 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
--- OUTSIDE RECORDS SUMMARY | 2025-01-29 13:18 | XMS_ITS | Clinical Summary ---
Author Organization [facility] Address [address] [place] [address] Care Team Providers Care Client Onboarding Analyst Name Role Phone Sher Patrick Primary Care Provider [phone] Allergies Active Allergy Reactions Criticality Noted Date [...] mouth. 325mg by mouth Mon-Wed-Mon in AM 4 Active methenamine (HIPREX) 1 gram tablet See Instructions, TAKE 1 TABLET BY MOUTH TWICE DAILY., # 90 capsule, 3 Refills, Maintenance, 06/28/24 10:07:00 EDT, [facility], 154, cm, 11/02/23 15:00:00 EST, Height, 57.6, kg, 12/01/23 8:48:00 EST, Dry Weight 4 Active INV [id number] triamcinolone acetoniden 0.1% topical ointment Apply topically [...] Department Care Team Description 11/15/2024 Orders Only [facility] Colorectal Surgery [address] [place] [address] Copy Lathe Tender: Kori Mike RN Colorectal cancer (Primary Dx) 11/14/2024 Telephone [facility] Colorectal Surgery [address] [place] [address] Copy Lathe Tender: Kori Mike RN 11/04/2024 8:14 AM EST Anesthesia Event [facility] Operating Room [address] [place] [address] Sarah Chapa MD Prasad, Abhinav Vibhas, MD 11/04/2024 7:45 AM EST - 11/04/2024 10:15 AM EST Surgery [facility] Operating Room [address] [place] [address] Catracho Vidal MD MPH TRANSANAL ENDOSCOPIC MICROSURGERY, possible TAMIS. with air seal [57791 (CPT??)] 10/31/2024 10:09 PM EST - 11/04/2024 5:34 PM EST Hospital Encounter [facility] [address] [place] [address] Catracho Vidal MD MPH Anorectal polyp Discharge Disposition: Home or Self Care () from Last 3 Months Immunizations Immunization Administration [...] drink = 0.6 oz pur e alcohol) [facility] Utilities Answer Date Recorded In the past 12 months has e [employer], gas, oil, or water [employer] threatened to shut off services in your [...] Description 05/09/2025 2:00 PM EDT Hospital Encounter [facility] Operating Room [address] [place] [address] Catracho Vidal MD MPH [address] [place] [address] 05/12/2025 2:00 PM EDT - 05/12/2025 3:05 PM EDT Surgery [facility] Operating Room [address] [place] [address] Catracho Vidal MD MPH [address] [place] [address] Colonoscopy Screening, High Risk with Possible Moderate Sedation [56171 (CPT??)] Scheduled Procedures Name Priority Associated Diagnoses [...] complete this topic Procedures * Due to [place] state law, this organization might not be sharing negative HIV tests. Procedure Name Priority Date/Time Associated Diagnosis Comments TISSUE EXAM Routine 11/04/2024 10:00 AM EST Anorectal polyp RI EXCIS CHALAZION,GEN ANESTHESIA 11/04/2024 7:59 AM EST [...] to Health Maintenance Results * Due to [place] state law, this organization might not be sharing negative HIV tests. 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 - See note Note: The fragmented nature of specimen precludes the evaluation of margin status. [facility] MANUAL 11/05/2024 5:18 PM EST [facility] ANATOMIC PATHOLOGY LABORATORY at 1718 EST Clinical History Pre-op diagnosis: Anorectal polyp [K62.0, K62.1] [facility] MANUAL 11/05/2024 5:18 PM EST [facility] ANATOMIC PATHOLOGY LABORATORY Gross Description 1. [...] quadrisected 1G-1 fragment bisected 1H-smallest fragmented bisected [facility] MANUAL 11/05/2024 5:18 PM EST [facility] ANATOMIC PATHOLOGY LABORATORY Gross Description User Grossing complete by Tootie Somers on 11/04/2024 3:24 PM [facility] MANUAL 11/05/2024 5:18 PM EST [facility] ANATOM[facility] PATHOLOGY LABORATORY Embedded Images [facility] MANUAL 11/05/2024 5:18 PM EST [facility] Resulting Agency Case was signed out at [facility], Department of Pathology, [employer] 3 CLIA [id number] [facility] MANUAL 11/05/2024 5:18 PM EST [facility] Report Header Surgical Pathology Report ? Case: [id number] ? Authorizing Provider: ??Catracho Vidal MD MPH ?Collected: ? 11/04/2024 1000 ? Ordering Location: ? [facility] ? Received: ?11/04/2024 1158 ? [facility] ? Operating Room ? Pathologist: ? Mirella Cai MD ? Specimen: ?Anus, rectal polyp ? 11/05/2024 5:18 PM EST [facility] [employer] [facility] ANATOMIC PATHOLOGY LABORATORY Tissue Anal structure / Unknown 11/04/2024 10:00 AM EST 11/04/2024 11:58 AM EST Comment:Pre-op diagnosis: Anorectal polyp [K62.0, K62.1] Catracho Vidal MD MPH LAB PATHOLOGY/CYTOLOGY ORDERA BLES Final Result Performing Organization Address [facility] de Phone Number [facility] ANATOMIC PATHOLOGY LABORATORY [address] [place] [address] ANATOMIC PATHOLOGY LABORATORY [address] [place] [address], * Phosphorus (11/03/2024 12:56 AM EST) Only the most recent of2 resultswithin the time period is included. Phosphorus 2.7 2.5 - 4.5 mg/dL 11/03/2024 2:02 AM EST [facility] CLINICAL PATHOLOGY LABORATORY Blood Structure of peripheral vein / Unknown Venipuncture / Unknown 11/03/2024 12:56 AM EST 11/03/2024 1:26 AM EST Catracho Vidal MD MPH LAB BLOOD ORDERABLES Final Re sult Performing Organization Address [facility] de Phone Number [facility] CLINICAL PATHOLOGY LABORATORY [address] [place] [address], * Magnesium (11/03/2024 12:56 AM EST) Only the most recent of2 resultswithin the time period is included. MG 2.3 1.6 - 2.4 mg/dL 11/03/2024 2:02 AM EST [facility] CLINICAL PATHOLOGY LABORAT[facility] Blood Structure of peripheral vein / Unknown Venipuncture / Unknown 11/03/2024 12:56 AM EST 11/03/2024 1:26 AM EST us Catracho Vidal MD MPH LAB BLOOD ORDERABLES Final Re sult [facility] PATHOLOGY LABORATORY [address] [place] [address], * Basic Metabolic Panel (11/03/2024 12:56 AM EST) Only the most recent of2 resultswithin the time period is included. NA 138 135 - 145 mmol/L 11/03/2024 2:02 AM EST [facility] CL[facility] PATHOLOG[facility] LAB[facility] K 3.9 3.5 - 5.3 mmol/L 11/03/2024 2:02 AM EST [facility] PATHOLOG[facility] LAB[facility] Cl 104 98 - 107 mmol/L 11/03/2024 2:02 AM [facility] CL[facility] PATHOLOG[facility] LAB[facility] CO2 24 22 - 32 mmol/L 11/03/2024 2:02 AM EST [facility] CL[facility] PATHOLOG[facility] LAB[facility] BUN 13 7 - 23 mg/dL 11/03/2024 2:02 AM [facility] Creatinine 0.70 0.50 - 1.20 mg/dL 11/03/2024 2:02 AM EST [facility] CL[facility] PATHOLOG[facility] LAB[facility] Glucose 94 65 - 99 mg/dL 11/03/2024 2:02 AM EST [facility] PATH[facility] Calcium 8.7 8.6 - 10.5 mg/dL 11/03/2024 2:02 AM EST [facility] PATHOLOG[facility] Anion Gap 10 5 - 15 11/03/2024 2:02 AM EST [facility] PATH[facility] eGFR >90 >=60 mL/min/1. 73m2 11/03/2024 2:02 AM EST [facility] CL[facility] PATHOLOG[facility] LAB[facility] Comment:The estimated glomer [...] MPH LAB BLOOD ORDERABLES Final Re sult [facility] CLINICAL PATHOLOGY LABORATORY [address] [place] [address], [place] * COLONOSCOPY (08/05/2020) Narrative Procedure Note Catracho Vidal MD MPH - 08/05/2020 7:31 AM EST Gastroenterology Patient Name: Kirsten Ronquillo Procedure Date: 08/05/2020 7:31 AM Date of : 1955 Admit Type: Inpatient Age: 64 Room: [place] [address] Gender: Female Note Status: Finalized Attending MD: [...] and oxygen saturations were monitored continuously. 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
== END 2025-01-29 11:48 | disposition home or self-care (01) ==
LOC: HO.LNP 11:47
PROVIDERS: Visit Provider Physician Assistant
DX: R30.0 Dysuria (principal); R45.1 Restlessness and agitation
CPT/HCPCS: 81001; 87086

== ENCOUNTER 2025-01-29 12:40 | Outpatient (REF) | payer MEDICARE, MEDICAID, SELFPAY ==
--- OUTSIDE RECORDS SUMMARY | 2025-01-29 13:54 | XMS_ITS | Encounter Summary ---
Author Organization [facility] Address [address] [place] [address] Care Team Providers Care Rouge Sifter And Miller Name Role Phone Sher Patrick Primary Care Provider [phone] Reason for Visit * Reason Onset Date Comments Needs to reschedule 09/28/2020 Encounter Details Date Type Department Care Team (Late st Contact Info) Description 09/28/2020 Telephone [facility] Central Scheduling Department [address] [place] [address] Telephone Intake, Staff Needs to reschedule Social [...] Description 05/09/2025 2:00 PM EDT Hospital Encounter [facility] Operating Room [address] [place] [address] Catracho Vidal MD MPH [address] [place] [address] 05/12/2025 2:00 PM EDT - 05/12/2025 3:05 PM EDT Surgery [facility] Operating Room [address] [place] [address] Catracho Vidal MD MPH [address] [place] [address] Colonoscopy Screening, High Risk with Possible Moderate Sedation [38621 (CPT??)] Scheduled Procedures Name Priority Associated Diagnoses [...] documented as of this encounter Care Teams Rouge Sifter And Miller Relationship Specialty Start Date End Date Sher Patrick [address] [place] [address] [place] [address] PCP - General 04/20/17 documented as of this encounter
--- OUTSIDE RECORDS SUMMARY | 2025-01-29 13:54 | XMS_ITS | Clinical Summary ---
Author Organization [facility] Address [address] [place] [address] Phone Care Team Providers Care Sausage Stringer Name Role Phone Sher Patrick MD Primary Care Provider [phone] Allergies Active Allergy Reactions Criticality Noted Date [...] topic Insurance Medicare Medicaid [place] Care Teams Sausage Stringer Relationship Specialty Start Date End Date Sher Patrick MD [address] [place] [address] [address] [place] PCP - General Internal Medicine 09/17/24
--- OUTSIDE RECORDS SUMMARY | 2025-01-29 13:54 | XMS_ITS | Clinical Summary ---
Author Organization [facility] Address [address] [place] [address] Care Team Providers Care Toy Electric Train Repairer Name Role Phone Sher Patrick Primary Care Provider [phone] Allergies Active Allergy Reactions Criticality Noted Date [...] 8:48:00 EST, Dry Weight 4 Active INV [id number] triamcinolone acetoniden 0.1% topical ointment Apply topically [...] Department Care Team Description 11/15/2024 Orders Only [facility] Colorectal Surgery [address] [place] [address] Sign Board Erector: Kori Mike RN Colorectal cancer (Primary Dx) 11/14/2024 Telephone [facility] Colorectal Surgery [address] [place] [address] Sign Board Erector: Kori Mike RN 11/04/2024 8:14 AM EST Anesthesia Event [facility] Operating Room [address] [place] [address] Sarah Chapa MD Prasad, Abhinav Vibhas, MD 11/04/2024 7:45 AM EST - 11/04/2024 10:15 AM EST Surgery [facility] Operating Room [address] [place] [address] Catracho Vidal MD MPH TRANSANAL ENDOSCOPIC MICROSURGERY, possible TAMIS. with air seal [37568 (CPT??)] 10/31/2024 10:09 PM EST - 11/04/2024 5:34 PM EST Hospital Encounter [facility] [address] [place] [address] Catracho Vidal MD MPH Anorectal polyp Discharge [...] drink = 0.6 oz pur e alcohol) [facility] Utilities Answer Date Recorded In the past 12 months has e [employer], gas, oil, or water [employer] threatened to shut off services in your [...] Description 05/09/2025 2:00 PM EDT Hospital Encounter [facility] Operating Room [address] [place] [address] Catrahco Vidal MD MPH [address] [place] [address] 05/12/2025 2:00 PM EDT - 05/12/2025 3:05 PM EDT Surgery [facility] Operating Room [address] [place] [address] Catracho Vidal MD MPH [address] [place] [address] Colonoscopy Screening, High Risk with Possible Moderate Sedation [15457 (CPT??)] Scheduled Procedures Name Priority Associated Diagnoses [...] complete this topic Procedures * Due to [place] state law, this organization might not be sharing negative HIV tests. Procedure Name Priority Date/Time Associated Diagnosis Comments TISSUE EXAM Routine 11/04/2024 10:00 AM EST Anorectal polyp NV EXCIS CHALAZION,GEN ANESTHESIA 11/04/2024 7:59 AM EST [...] to Health Maintenance Results * Due to [place] state law, this organization might not be sharing negative HIV tests. 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 - See note Note: The fragmented nature of specimen precludes the evaluation of margin status. [facility] MANUAL 11/05/2024 5:18 PM EST [facility] ANATOMIC PATHOLOGY LABORATORY at 1718 EST Clinical History Pre-op diagnosis: Anorectal polyp [K62.0, K62.1] [facility] MANUAL 11/05/2024 5:18 PM EST [facility] ANATOMIC PATHOLOGY LABORATORY Gross Description 1. [...] quadrisected 1G-1 fragment bisected 1H-smallest fragmented bisected [facility] MANUAL 11/05/2024 5:18 PM EST [facility] ANATOMIC PATHOLOGY LABORATORY Gross Description User Grossing complete by Tootie Somers on 11/04/2024 3:24 PM [facility] MANUAL 11/05/2024 5:18 PM EST [facility] ANATOMIC PATHOLOGY LABORATORY Embedded Images [facility] MANUAL 11/05/2024 5:[address] [facility] Resulting Agency Case was signed out at [facility], Department of Pathology, Biotech 3 CLIA [id number] [facility] MANUAL 11/05/2024 5:18 PM EST [facility] Report Header Surgical Pathology Report ? Case: [id number] ? Authorizing Provider: ??Catracho Vidal MD MPH ?Collected: ? 11/04/2024 1000 ? Ordering Location: ? [facility] ? Received: ?11/04/2024 1158 ? [facility] ? Operating Room ? Pathologist: ? Mirella Cai MD ? Specimen: ?Anus, rectal polyp ? 11/05/2024 5:18 PM EST [facility] [employer] [facility] ANATOMIC PATHOLOGY LABORATORY Tissue Anal structure / Unknown 11/04/2024 10:00 AM EST 11/04/2024 11:58 AM EST Comment:Pre-op diagnosis: Anorectal polyp [K62.0, K62.1] Catracho Vidal MD MPH LAB PATHOLOGY/CYTOLOGY ORDERA BLES Final Result Performing Organization Address [facility] de Phone Number [facility] ANATOMIC PATHOLOGY LABORATORY [address] [place] [address] ANATOMIC PATHOLOGY LABORATORY [address] [place] [address], * Phosphorus (11/03/2024 12:56 AM EST) Only the most recent of2 resultswithin the time period is included. Phosphorus 2.7 2.5 - 4.5 mg/dL 11/03/2024 2:02 AM EST [facility] CLINICAL PATHOLOGY LABORATORY Blood Structure of peripheral vein / Unknown Venipuncture / Unknown 11/03/2024 12:56 AM EST 11/03/2024 1:26 AM EST Catracho Vidal MD MPH LAB BLOOD ORDERABLES Final Re sult Performing Organization Address [facility] de Phone Number [facility] CLINICAL PATHOLOGY LABORATORY [address] [place] [address], * Magnesium (11/03/2024 12:56 AM EST) Only the most recent of2 resultswithin the time period is included. MG 2.3 1.6 - 2.4 mg/dL 11/03/2024 2:02 AM EST [facility] CL[facility] PATHOLOGY LAB[facility] Blood Structure of peripheral vein / Unknown Venipuncture / Unknown 11/03/2024 12:56 AM EST 11/03/2024 1:26 AM EST us Catracho Vidal MD MPH LAB BLOOD ORDERABLES Final Re sult [facility] PATHOLOGY LABORATORY [address] [place] [address], * Basic Metabolic Panel (11/03/2024 12:56 AM EST) Only the most recent of2 resultswithin the time period is included. NA 138 135 - 145 mmol/L 11/03/2024 2:02 AM EST [facility] CLINICAL PATHOLOGY LABORAT[facility] K 3.9 3.5 - 5.3 mmol/L 11/03/2024 2:02 AM EST [facility] CL[facility] PATHOLOGY LABORAT[facility] Cl 104 98 - 107 mmol/L 11/03/2024 2:02 AM [facility] CLINICAL PATHOLOGY LABORATORY CO2 24 22 - 32 mmol/L 11/03/2024 2:02 AM EST [facility] CLINICAL PATHOLOGY LABORATORY BUN 13 7 - 23 mg/dL 11/03/2024 2:02 AM [facility] CLINICAL PATHOLOGY LABORATORY Creatinine 0.70 0.50 - 1.20 mg/dL 11/03/2024 2:02 AM EST [facility] PATHOLOGY LAB[facility]ORY Glucose 94 65 - 99 mg/dL 11/03/2024 2:02 AM EST [facility] PATHOLOGY LAB[facility]ORY Calcium 8.7 8.6 - 10.5 mg/dL 11/03/2024 2:02 AM EST [facility] PATHOLOGY LAB[facility] Anion Gap 10 5 - 15 11/03/2024 2:02 AM EST [facility] PATHOLOGY LAB[facility] eGFR >90 >=60 mL/min/1. 73m2 11/03/2024 2:02 AM EST [facility] CL[facility] PATHOLOGY LABOR[facility]ORY Comment:The estimated glomer [...] MPH LAB BLOOD ORDERABLES Final Re sult [facility] CLINICAL PATHOLOGY LABORATORY [address] [place] [address], [place] * COLONOSCOPY (08/05/2020) Narrative Procedure Note Catracho Vidal MD MPH - 08/05/2020 7:31 AM EST Gastroenterology Patient Name: Kirsten Ronquillo Procedure Date: 08/05/2020 7:31 AM Date of : 1955 Admit Type: Inpatient Age: 64 Room: [place] [id number] Gender: Female Note Status: Finalized Attending MD: Catracho Vidal MD Procedure: Colonoscopy Indications: High risk colon cancer surveillance: Personal history of colonicpolyps Providers: Cartacho Vidal MD (Doctor) Referring MD: Requesting Provider: Medicines: Monitored Anesthesia Care Complications: No immediate complications. Estimated Blood Loss: Estimated blood loss: none. Procedure: After I obtained informed consent, the scope was passed under direct vision. Throughout the procedure, the patient's blood pressure, pulse, and oxygen saturations were monitored continuously. 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
--- OUTSIDE RECORDS SUMMARY | 2025-01-29 13:54 | XMS_ITS | Referral Summary ---
Author Organization [facility] Address [address] [place] [address] Care Team Providers Care Agent Name Role Phone Sher Patrick Primary Care Provider Encounters Date Type Department Care Team Description 11/15/2024 Orders Only [facility] Colorectal Surgery [address] [place] [address] Junior Network Administrator: Kori Mike RN Colorectal cancer (Primary Dx) 11/14/2024 Telephone [facility] Colorectal Surgery [address] [place] [address] Junior Network Administrator: Kori Mkie, LAY 11/04/2024 7:45 AM EST - 11/04/2024 10:15 AM EST Surgery [facility] Operating Room [address] [place] [address] Catracho Vidal MD MPH TRANSANAL ENDOSCOPIC MICROSURGERY, possible TAMIS. with air seal [61030 (CPT??)] 10/31/2024 10:09 PM EST - 11/04/2024 5:34 PM EST Hospital Encounter [facility] [address] [place] [address] Catracho Vidal MD MPH Anorectal polyp Discharge Disposition: Home or Self Care () 11/04/2024 8:14 AM EST Anesthesia Event [facility] Operating Room [address] [place] [id number] Sarah Chapa MD Prasad, Abhinav Vibhas, MD [...] 8:48:00 EST, Dry Weight 4 Active INV [id number] triamcinolone acetoniden 0.1% topical ointment Apply topically [...] drink = 0.6 oz pur e alcohol) [facility] Utilities Answer Date Recorded In the past [...] Description 05/09/2025 2:00 PM EDT Hospital Encounter [facility] Operating Room [address] [place] [address] Catracho Vidal MD MPH [address] [place] [address] 05/12/2025 2:00 PM EDT - 05/12/2025 3:05 PM EDT Surgery [facility] Operating Room [address] [place] [address] Catracho Vidal MD MPH [address] [place] [address] Colonoscopy Screening, High Risk with Possible Moderate Sedation [66674 (CPT??)] Scheduled Procedures Name Priority Associated Diagnoses Date/Ti me COLONOSCOPY SCREENING, HIGH RISK WITH POSSIBLE MODERATE SEDATION Colorectal cancer (HCC) 05/12/2025 2:00 PM EDT Procedures * Due to [place] law, this organization might not be sharing negative HIV tests. Procedure Name Priority Date/Time Associated Diagnosis Comments TISSUE EXAM Routine 11/04/2024 10:00 AM EST Anorectal polyp [place] EXCIS CHALAZION,GEN ANESTHESIA 11/04/2024 7:59 AM EST [...] to Health Maintenance Results * Due to [place] law, this organization might not be sharing [...] K62.1] [place] MANUAL 11/05/2024 5:18 PM EST [facility] AN[facility] PATHOLOGY LABOR[facility] Gross Description 1. [...] quadrisected 1G-1 fragment bisected 1H-smallest fragmented bisected [facility] MANUAL 11/05/2024 5:18 PM EST [facility] Gross Description User Grossing complete by Tootie Somers on 11/04/2024 3:24 PM [facility] MANUAL 11/05/2024 5:18 PM EST [facility] Embedded Images [facility] MANUAL 11/05/2024 5:18 PM EST [facility] [employer] [facility] Resulting Agency Case was signed out at [facility], Department of Pathology, [employer] 3 [facility] [id number] [facility] MANUAL 11/05/2024 5:18 PM EST [facility] [employer] [facility] Report Header Surgical Pathology Report ? Case: [id number] ? Authorizing Provider: ??Catracho Vidal MD MPH ?Collected: ? 11/04/2024 1000 ? Ordering Location: ? [facility] ? Received: ?11/04/2024 1158 ? [facility] ? Operating Room ? Pathologist: ? Mirella Cai MD ? Specimen: ?Anus, rectal polyp ? 11/05/2024 5:18 PM EST [facility] AN[facility] PATH[facility] Tissue Anal structure / Unknown 11/04/2024 10:00 AM EST 11/04/2024 11:58 AM EST Comment:Pre-op diagnosis: Anorectal polyp [K62.0, K62.1] us Catracho Vidal MD MPH LAB PATHOLOGY/CYTOLOGY ORDERA BLES Final Result [facility] [employer] [facility] ANATOM[facility] PATHOLOG[facility] LABORATORY [address] [place] [address], [place] [facility] [address] [place] [address], * Phosphorus (11/03/2024 12:56 AM EST) Only the most recent of2 resultswithin the time period is included. Phosphorus 2.7 2.5 - 4.5 mg/dL 11/03/2024 2:02 AM EST [facility] PATHOLOG[facility] LABORAT[facility] Blood Structure of peripheral vein / Unknown Venipuncture / Unknown 11/03/2024 12:56 AM EST 11/03/2024 1:26 AM EST Catracho Vidal MD MPH LAB BLOOD ORDERABLES Final Re sult Performing Organization Address [facility] Co de Phone Number [facility] PATHOLOG[facility] LABORATORY [address] [place] [address], * Magnesium (11/03/2024 12:56 AM EST) Only the most recent of2 resultswithin the time period is included. MG 2.3 1.6 - 2.4 mg/dL 11/03/2024 2:02 AM EST [facility] Blood Structure of peripheral vein / Unknown Venipuncture / Unknown 11/03/2024 12:56 AM EST 11/03/2024 1:26 AM EST Catracho Vidal MD MPH LAB BLOOD ORDERABLES Final Re sult Performing Organization Address [facility] Co de Phone Number [facility]ORY [address] [place] [address], [place] * Basic Metabolic Panel (11/03/2024 12:56 AM EST) Only the most recent of2 resultswithin the time period is included. NA 138 135 - 145 mmol/L 11/03/2024 2:02 AM EST [facility] K 3.9 3.5 - 5.3 mmol/L 11/03/2024 2:02 AM EST [facility] Cl 104 98 - 107 mmol/L 11/03/2024 2:02 AM EST [facility] CO2 24 22 - 32 mmol/L 11/03/2024 2:02 AM EST [facility] BUN 13 7 - 23 mg/dL 11/03/2024 2:02 AM EST [facility] Creatinine 0.70 0.50 - 1.20 mg/dL 11/03/2024 2:02 AM EST [facility] Glucose 94 65 - 99 mg/dL 11/03/2024 2:02 AM EST [facility] Calcium 8.7 8.6 - 10.5 mg/dL 11/03/2024 2:02 AM EST [facility] Anion Gap 10 5 - 15 11/03/2024 2:02 AM EST [facility] eGFR >90 >=60 mL/min/1. 73m2 11/03/2024 2:02 AM EST [facility] Comment:The estimated glomer [...] MPH LAB BLOOD ORDERABLES Final Re sult [facility] [address] [place] [address], [place] * COLONOSCOPY (08/05/2020) Narrative Procedure Note Catracho Vidal MD MPH - 08/05/2020 7:31 AM EST Gastroenterology Patient Name: Kirsten Ronquillo Procedure Date: 08/05/2020 7:31 AM Date of : 1955 Admit Type: Inpatient Age: 64 Room: [place] [address] Gender: Female Note Status: Finalized Attending MD: [...] and oxygen saturations were monitored continuously. The [id number] was introduced through the anus and advanced [...] s ESBL Comment:ESBL E.coli 08/03/2020 08/03/2020 Insurance [facility] [address] MEDICARE Advance Directives Documents on File Type Date Recorded Patient Business Process Lead Expl anation Advance Directive 07/05/2013 12:00 AM [...] Thompson Friend Health Care Agent Care Teams Agent Relationship Specialty Start Date End Date Sher Patrick [address] [place] [address] [place] [address] PCP - General 04/20/17
== END 2025-01-29 12:41 | disposition home or self-care (01) ==
LOC: HO.LAB 12:40
PROVIDERS: Visit Provider Physician Assistant
DX: Z13.89 Encounter for screening for other disorder (principal)

== ENCOUNTER 2025-01-31 10:42 | Outpatient (AMB) | payer MEDICARE, MEDICAID, SELFPAY ==
[2025-01-31 10:26] VITALS: BP 120/76; PULSE 52; TEMP 36.4; O2SAT 99; BMI 25.4
--- NOTE | 2025-01-31 10:26 | A.OFFPC_ITS ---
Vital Signs 01/31/25 10:26 Height 5 ft 2 in Weight 63.049 kg BMI 25.4 BP 120/76 Blood Pressure Location Lt brachial Position Sitting Pulse 52 Pulse Source Pulse Oximeter Temp 97.6 F Temp Source Axillary Pulse Oximetry (%) 99 Oxygen Delivery Method Room Air Intake Visit Reasons: Evaluation agitation Life Insurance Sales Required: No Accompanied by: caregiver Allergies adhesive tape Allergy (Intermediate, Verified 01/31/25 10:27) itching and skin redness latex Allergy (Intermediate, Verified 01/31/25 10:27) skin rash and itching Seasonal Allergies Allergy (Verified 01/31/25 10:27) Itching weed pollen Allergy (Verified 01/31/25 10:27) stuffy nose DUST Allergy (Unknown, Uncoded 12/24/24 10:43) ITCHY/WATERY EYES surgical paper tape Allergy (Unknown, Uncoded 12/24/24 10:43) rash Tide Allergy (Unknown, Uncoded 12/24/24 10:43) rash Medication List - Last Reconciled 01/31/25 by PAYTON Katz acetaminophen 500 mg PO Q6H PRN ascorbic acid (vitamin C) (Vitamin C) 500 mg PO BID aspirin 81 mg PO DAILY Balmex (petrolatum) 51.1% (white petrolatum) 1 appl topical BID-TID PRN NS betamethasone dipropionate 0.05% 1 appl topical BID PRN carbamazepine 400 mg (2 x 200 mg) PO BEDTIME docusate sodium 100 mg PO BID donepezil 5 mg PO BEDTIME ferrous sulfate (FeroSul) 325 mg oral once daily on Mon, Wed, Mon fluticasone propionate 50 mcg/actuation (Allergy Relief (fluticasone)) 1 spray intranasal BID PRN ibuprofen 400 mg PO Q6H PRN Icy Hot Pain Relieving 2.5% (menthol) 1 appl topical BID NS levothyroxine 200 mcg PO DAILY loratadine 10 mg PO DAILY melatonin 10 mg PO BEDTIME methenamine hippurate 1 g PO BID methyl salicylate-menthol 30-10 % (Icy Hot) PRN; Apply a small amount topically 2 time daily as needed for back or foot pain multivitamin 1 tab PO DAILY nystatin 1 appl topical BID PRN [Order for straight catherization for urine collection as needed for altered behavior, abnormal urine] quetiapine 50 mg PO TID quetiapine 100 mg PO BID sennosides (Senna Lax) 8.6 mg PO Q48H tamsulosin 0.4 mg PO Q24H trazodone 100 mg PO BEDTIME triamcinolone acetonide 0.1% 1 appl topical BID PRN triamcinolone acetonide 0.1% 1 appl topical BID vibegron (Gemtesa) 75 mg PO DAILY zinc oxide-vitamin B5-vit E 11.3 % (Balmex Adult Care) 1 appl topical BID Tobacco use date assessed: 01/31/25 Fall risk assessment: No Falls in past year Last assessed Fall Risk: 01/31/25 Dental Screening Dental Screen Date: 01/31/25 Did you have a dental visit in the last 12 months?: Yes Did you have a dental problem in the last 6 months where you did not have access to dental care?: No HPI HPI Comments History of Present Illness Details 69-year-old female with history of vascu lar dementia and developmental delay, 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 The patient has reportedly been more emotionally labile and agitated while at the care home. Per RN whom this provider spoke with on the phone, this is typically indicative of a UTI. She had a urinalysis performed and urine culture ultimately did grow E coli pansensitive and she was treated with Macrobid at that time. RN returned call who states that behavior persisted and was given an empiric course of cefuroxime but ultimately urine culture was negative and recommended to discontinue antibiotics. Patient at this time has no complaints except muffled hearing in the ears bilaterally. She denies any fevers, chills, sore throat, ear pain, congestion, cough, abdominal pain, diarrhea, urinary symptoms, shortness of breath, chest pain. No skin breakdown. She is acting/behaving at her baseline in the office. Per staff member, she states that the patient's behavior is consistent with her normal. She states that there may be personality conflicts which result in staff reporting behavioral changes but that she has not noticed any. She does follow with service not for vascular dementia with mood disorder. She is complaining of muffled hearing/hearing loss in the ears bilaterally that has been ongoing for weeks. No acute change. No pain or tinnitus. She feels like she has wax buildup. [facility] Medical History Abnormal MRI Post-surgical hypothyroidism History of ESBL E. coli infection Toxic multinodular goiter Vitamin D deficiency Hyperthyroidism Colon cancer Lung mass Developmental delay, mild Arthritis Surgical History History of carpal tunnel surgery of right wrist Hx of total thyroidectomy History of biopsy Hx of colonic polyps Hx of colonoscopy Family History Father No problems noted. Mother Medical history unknown Social History Household Members: Caregiver Household Members Other:: gr home Housing: Other Housing Other:: care home Unable to assess alcohol history related to: Unknown Alcohol intake: never Patient Tobacco Use Status: Never used Tobacco e-Cigarette/Vaping Use: Never Used Second Hand Smoke Exposure: No Advance Directives Date on File: 01/05/21 service: No Current occupational status: disabled Current occupation: right handed Cognitive needs: Yes (walker) Hearing needs: No Vision needs: Yes (rx glasses) Questionnaire PHQ-9 Over the last 2 weeks, how often have you been bothered by any of the following problems? 1. Little interest or pleasure in doing things: not at all 2. Feeling down, depressed, or hopeless: not at all 3. Trouble falling or staying asleep, or sleeping too much: not at all 4. Feeling tired or having little energy: not at all 5. Poor appetite or overeating: not at all 6. Feeling bad about yourself - or that you are a failure or have let yourself or your family down: not at all 7. Trouble concentrating on things, such as reading the newspaper or watching television: not at all 8. Moving or speaking so slowly that other people could have noticed. Or the opposite - being so fidgety or restless that you have been moving around a lot more than usual: not at all 9. Thoughts that you would be better off or of hurting yourself in some way: not at all Total score: 0 Source: Developed by Drs. Nadine Marinelli Kurt Kroenke and colleagues, with an educational lian from [employer]. Thrive Questionnaire Date Thrive assessed: 01/31/25 I am a: Patient Within the past 12 months, did the food you bought not last and you didn't have the money to get more?: Never true Within the past 12 months, did you worry whether your food would run out before you got money to buy more?: Never true Do you have trouble paying for medicines?: No Do you have trouble getting transportation to medical appointments?: No Do you have trouble paying your heating and electricity bill?: No Do you have trouble taking care of your child, family member or friend?: No Do you have trouble with day-to-day activities such as bathing, preparing meals, shopping, managing finances, etc.?: No Are you currently unemployed and looking for a job?: No Are you interested in more education?: No THRIVE Score: 0 AUDIT C Alcohol Use Questionnaire (AUDIT-C) 1. How often do you have a drink containing alcohol?: Never 3. How often do you have six or more drinks on one occasion?: Never Total Score: 0 MARISSA-7 AMB Questionnaire MARISSA-7 Date MARISSA - 7 assessed: 01/31/25 Feeling nervous, anxious, or on edge: 0 = Not at all Not being able to stop or control worryin = Not at all Worrying too much about different things: 0 = Not at all Trouble relaxin = Not at all Being so restless that it is hard to sit still: 0 = Not at all Becoming easily annoyed or irritable: 0 = Not at all Feeling afraid as if something awful might happen: 0 = Not at all Total MARISSA-7 score (0-4 normal; 5-9 mild; 10-14 moderate; 15-21 severe): 0 Source: Developed by Drs. Harvinder Segura, Vitaly Cantrell and colleagues, with an educational lian from [employer]. Review of Systems Const All systems reviewed & are unremarkable except as noted in HPI and below Physical exam (Primary Care) Vital Signs: Last Vital Signs Temp 97.6 F 01/31/25 10:26 Pulse 52 01/31/25 10:26 BP 120/76 01/31/25 10:26 Pulse Ox 99 01/31/25 10:26 Oxygen Delivery Method Room Air 01/31/25 10:26 BMI result Body Mass Index 25.4 Tobacco/Smoking Status: Tobacco use Status Tobacco use date assessed 01/31/25 01/31/25 10:28 Patient Tobacco Use Status Never used Tobacco 01/31/25 10:28 e-Cigarette/Vaping Use Never Used 01/31/25 10:28 PHQ-9: PHQ-9 Score PHQ-9: Total score 0 01/31/25 12:56 Thrive Assessment: Date of Thrive Assessment Date Thrive assessed 01/31/25 01/31/25 10:28 Const Other: Constitutional - Awake and Alert, No apparent distress Eyes - PERRLA Ears - external ears normal, canals with scant cerumen without any significant edema or erythema. There is scarring of the tympanic membranes bilaterally Neck - no adenopathy Cardiovascular - S1S2, RRR, No edema Respiratory - Normal lung expansion, Normal respiratory effort, No respiratory distress, CTA bilaterally Extremities - no calf tenderness bilaterally, no swelling Skin - Warm/Dry Neurological - awake and alert. 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 Can DC ceftin. Unlikely to be infectious based on vitals and exam. Suspect related to vascular dementia vs behavioral changes in the setting of conflicting personalities [facility] staff as this does appear to be siutational. Recommend continuing current therapies and follow up with [facility] providers for further management of agitation r/t vascular dementia (2) Post-surgical hypothyroidism: Code(s): E89.0 - Postprocedural hypothyroidism Category: Medical Plan: Euthyroid. Continue levothyroxine (3) Developmental delay, mild: Code(s): R62.50 - Unspecified lack of expected normal physiological development in childhood Category: Medical Plan: Follow up with [facility] (4) Vascular dementia: Code(s): F01.50 - Vascular dementia, unspecified severity, without behavioral disturbance, psychotic disturbance, mood disturbance, and anxiety Category: Medical Plan: See above. 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 Audiology referral placed Plan Follow up in 4 months with labs completed prior to visit Reach out to [facility] for further assessment. Doubt behavioral changes r/t infection at this time. Orders: Referrals Audiology Referral H91.93 - Unspecified hearing loss, bilateral Medications: New fluticasone propionate 50 mcg/actuation (Allergy Relief (fluticasone)) administer into each nostril 1 spray intranasal BID PRN 16 grams 0RF nasal congestion Patient Instructions: Follow up in 4 months with labs completed prior to visit Reach out to [facility] for further assessment. Doubt behavioral changes r/t infection at this time.
--- OUTSIDE RECORDS SUMMARY | 2025-01-31 11:49 | XMS_ITS | Encounter Summary ---
Author Organization [facility] Address [address] [place] [address] Care Team Providers Care [employer] Name Role Phone Sher Patrick Primary Care Provider [phone] Reason for Visit * Reason Onset Date Comments Needs to reschedule 09/28/2020 Encounter Details Date Type Department Care Team (Late st Contact Info) Description 09/28/2020 Telephone [facility] Central Scheduling Department [address] [place] [address] Telephone Intake, Staff Needs to reschedule Social [...] Description 05/09/2025 2:00 PM EDT Hospital Encounter [facility] Operating Room [address] [place] [address] Catracho Vidal MD MPH [address] [place] [address] 05/12/2025 2:00 PM EDT - 05/12/2025 3:05 PM EDT Surgery [facility] Operating Room [address] [place] [address] Catracho Vidal MD MPH [address] [place] [address] Colonoscopy Screening, High Risk with Possible Moderate Sedation [52393 (CPT??)] Scheduled Procedures Name Priority Associated Diagnoses [...] documented as of this encounter Care Teams [employer] Relationship Specialty Start Date End Date Sher Patrick [address] [place] [address] [place] [address] PCP - General 04/20/17 documented as of this encounter
--- OUTSIDE RECORDS SUMMARY | 2025-01-31 11:49 | XMS_ITS | Referral Summary ---
Author Organization [facility] Address [address] [place] [address] Care Team Providers Care Dry Box Tender Name Role Phone Sher Patrick Primary Care Provider [phone] Encounters Date Type Department Care Team Description 11/15/2024 Orders Only [facility] Colorectal Surgery [address] [place] [address] Industrial Production Manager: Kori Mike RN Colorectal cancer (Primary Dx) 11/14/2024 Telephone [facility] Colorectal Surgery [address] [place] [address] Industrial Production Manager: Kori Mike, LAY 11/04/2024 7:45 AM EST - 11/04/2024 10:15 AM EST Surgery [facility] Operating Room [address] [place] [address] Catracho Vidal MD MPH TRANSANAL ENDOSCOPIC MICROSURGERY, possible TAMIS. with air seal [91850 (CPT??)] 10/31/2024 10:09 PM EST - 11/04/2024 5:34 PM EST Hospital Encounter [facility] [address] [place] [address] Catracho Vidal MD MPH Anorectal polyp Discharge Disposition: Home or Self Care () 11/04/2024 8:14 AM EST Anesthesia Event [facility] Operating Room [address] [place] [address] Sarah Chapa MD Prasad, Abhinav Vibhas, MD [...] 8:48:00 EST, Dry Weight 4 Active INV [id number] triamcinolone acetoniden 0.1% topical ointment Apply topically [...] drink = 0.6 oz pur e alcohol) [facility] Utilities Answer Date Recorded In [...] Description 05/09/2025 2:00 PM EDT Hospital Encounter [facility] Operating Room [address] [place] [address] Catracho Vidal MD MPH [address] [place] [address] 05/12/2025 2:00 PM EDT - 05/12/2025 3:05 PM EDT Surgery [facility] Operating Room [address] [place] [address] Catracho Vidal MD MPH [address] [place] [address] Colonoscopy Screening, High Risk with Possible Moderate Sedation [91324 (CPT??)] Scheduled Procedures Name Priority Associated Diagnoses Date/Ti me COLONOSCOPY SCREENING, HIGH RISK WITH POSSIBLE MODERATE SEDATION Colorectal cancer (HCC) 05/12/2025 2:00 PM EDT Procedures * Due to [place] Swish law, this organization might not be sharing negative HIV tests. Procedure Name Priority Date/Time Associated Diagnosis Comments TISSUE EXAM Routine 11/04/2024 10:00 AM EST Anorectal polyp [place] EXCIS CHALAZION,GEN ANESTHESIA 11/04/2024 7:59 AM EST Anorectal polyp Special Needs TEM/Tamis?needs admission to hospital 5 days before surgery. please schedule surgery in Sep 2024 PHOSPHORUS Routine 11/03/2024 12:56 AM EST MAGNESIUM Routine 11/03/2024 12:56 AM EST BASIC METABOLIC PANEL Routine 11/03/2024 12:56 AM EST COLONOSCOPY 08/05/2020 from Last 3 Months or Most Recently Relevant to Health Maintenance Results * Due to [place] Swish law, this organization might not be sharing negative HIV tests. 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 - See note Note: The fragmented nature of specimen precludes the evaluation of margin status. [facility] MANUAL 11/05/2024 5:18 PM EST [facility] ANATOMIC PATHOLOGY LABORATORY at 1718 EST Clinical History Pre-op diagnosis: Anorectal polyp [K62.0, K62.1] [facility] MANUAL 11/05/2024 5:18 PM EST [facility] ANATOMIC PATHOLOGY LABORATORY Gross [...] quadrisected 1G-1 fragment bisected 1H-smallest fragmented bisected [facility] 11/05/2024 5:[address] [facility] Gross Description User Grossing complete by Tootie Somers on 11/04/2024 3:24 PM [facility] MANUAL 11/05/2024 5:18 PM EST [facility] ANATOMIC PATHOLOGY LABORATORY Embedded Images [facility] MANUAL 11/05/2024 5:18 PM EST [facility]ENTERWutsat SystemsMA [employer] THREE AN[facility] PATHOLOGY LABORATORY Resulting Agency Case was signed out at [facility], Department of Pathology, Biotech 3 CLIA [id number] [facility] MANUAL 11/05/2024 5:18 PM EST [employer] [facility] ANAT[facility]IC PATHOLOGY LABORATORY Report Header Surgical Pathology Report ? Case: [id number] ? Authorizing Provider: ??Catracho Vidal MD MPH ?Collected: ? 11/04/2024 1000 ? Ordering Location: ? [facility] ? Received: ?11/04/2024 1158 ? [facility] ? Operating Room ? Pathologist: ? Mirella Cai MD ? Specimen: ?Anus, rectal polyp ? 11/05/2024 5:18 PM EST [facility] Tissue Anal structure / Unknown 11/04/2024 10:00 AM EST 11/04/2024 11:58 AM EST Comment:Pre-op diagnosis: Anorectal polyp [K62.0, K62.1] Catracho Vidal MD MPH LAB PATHOLOGY/CYTOLOGY ORDERA BLES Final Result [facility] [address] ANATOMIC PATHOLOGY LABORATORY [address] [place] [address], * Phosphorus (11/03/2024 12:56 AM EST) Phosphorus 2.7 2.5 - 4.5 mg/dL 11/03/2024 2:02 AM EST [facility] CLINICAL PATHOLOGY LABORATORY Blood Structure of peripheral vein / Unknown Venipuncture / Unknown 11/03/2024 12:56 AM EST 11/03/2024 1:26 AM EST us Catracho Vidal MD MPH LAB BLOOD ORDERABLES Final Re sult Performing Organization Address [facility] Co de Phone Number [facility] PATHOLOGY LABORATORY [address] [place] [address], * Magnesium (11/03/2024 12:56 AM EST) MG 2.3 1.6 - 2.4 mg/dL 11/03/2024 2:02 AM EST [facility] CLINICAL PATHOLOGY LABORATORY Blood Structure of peripheral vein / Unknown Venipuncture / Unknown 11/03/2024 12:56 AM EST 11/03/2024 1:26 AM EST us Catracho Vdial MD MPH LAB BLOOD ORDERABLES Final Re sult Performing Organization Address [facility] de Phone Number [facility] CLINICAL PATHOLOGY LABORATORY [address] [place] [address], [place] * Basic Metabolic Panel (11/03/2024 12:56 AM EST) NA 138 135 - 145 mmol/L 11/03/2024 2:02 AM EST [facility] CLINICAL PATHOLOGY LABORATORY K 3.9 3.5 - 5.3 mmol/L 11/03/2024 2:02 AM EST [facility] CLINICAL PATHOLOGY LABORATORY Cl 104 98 - 107 mmol/L 11/03/2024 2:02 AM EST [facility] CLINICAL PATHOLOGY LABORATORY CO2 24 22 - 32 mmol/L 11/03/2024 2:02 AM EST [facility] CL[facility]ICAL PATHOLOGY LABORATORY BUN 13 7 - 23 mg/dL 11/03/2024 2:02 AM EST [facility] CLINICAL PATHOLOGY LABORATORY Creatinine 0.70 0.50 - 1.20 mg/dL 11/03/2024 2:02 AM EST [facility] CLINICAL PATHOLOGY LABORATORY Glucose 94 65 - 99 mg/dL 11/03/2024 2:02 AM EST [facility] CLINICAL PATHOLOGY LABORATORY Calcium 8.7 8.6 - 10.5 mg/dL 11/03/2024 2:02 AM EST [facility] CLINICAL PATHOLOGY LABORATORY Anion Gap 10 5 - 15 11/03/2024 2:02 AM EST [facility] CLINICAL PATHOLOGY LABORATORY eGFR >90 >=60 mL/min/1. 73m2 11/03/2024 2:02 AM EST [facility] CLINICAL PATHOLOGY LABORATORY Comment:The estimated glomer [...] MPH LAB BLOOD ORDERABLES Final Re sult [facility] Organization Address City/State/ZIP Co de Phone Number [facility] CLINICAL PATHOLOGY LABORATORY [address] [place] [address], [place] * COLONOSCOPY (08/05/2020) Narrative Procedure Note Catracho Vidal MD MPH - 08/05/2020 7:31 AM EST Gastroenterology Patient Name: Kirsten Ronquillo Procedure Date: 08/05/2020 7:31 AM Date of : 1955 Admit Type: Inpatient Age: 64 Room: [place] [address] Gender: Female Note Status: Finalized Attending MD: [...] and oxygen saturations were monitored continuously. 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
--- OUTSIDE RECORDS SUMMARY | 2025-01-31 11:49 | XMS_ITS | Clinical Summary ---
Author Organization [facility] Address [address] [place] [address] Phone Care Team Providers Care Cloth Calender Name Role Phone Sher Patrick MD Primary Care Provider [phone] Allergies Active Allergy Reactions Criticality Noted Date [...] topic Insurance Medicare Medicaid [place] Care Teams Cloth Calender Relationship Specialty Start Date End Date Sher Patrick MD [address] [place] [address] [address] [place] PCP - General Internal Medicine 09/17/24
--- OUTSIDE RECORDS SUMMARY | 2025-01-31 11:49 | XMS_ITS | Clinical Summary ---
Author Organization [facility] Address [address] [place] [address] Care Team Providers Care Hydro Pneumatic Tester Name Role Phone Sher Patrick Primary Care Provider [phone] Allergies Active Allergy Reactions Criticality Noted Date [...] 8:48:00 EST, Dry Weight 4 Active INV [id number] triamcinolone acetoniden 0.1% topical ointment Apply topically [...] Department Care Team Description 11/15/2024 Orders Only [facility] Colorectal Surgery [address] [place] [address] Psychiatric Secretary: Kori Mike RN Colorectal cancer (Primary Dx) 11/14/2024 Telephone [facility] Colorectal Surgery [address] [place] [address] Psychiatric Secretary: Kori Mike RN 11/04/2024 8:14 AM EST Anesthesia Event [facility] Operating Room [address] [place] [address] Sarah Chapa MD Prasad, Abhinav Vibhas, MD 11/04/2024 7:45 AM EST - 11/04/2024 10:15 AM EST Surgery [facility] Operating Room [address] [place] [address] Catracho Vidal MD MPH TRANSANAL ENDOSCOPIC MICROSURGERY, possible TAMIS. with air seal [96373 (CPT??)] 10/31/2024 10:09 PM EST - 11/04/2024 5:34 PM EST Hospital Encounter [facility] [address] [place] [address] Catracho Vidal MD MPH Anorectal polyp Discharge [...] 0.6 oz pur e alcohol) [facility] Utilities Answer Date Recorded In the past 12 months has e [employer], gas, oil, or water [employer] threatened to shut off services in your [...] Description 05/09/2025 2:00 PM EDT Hospital Encounter [facility] Operating Room [address] [place] [address] Catracho Vidal MD MPH [address] [place] [address] 05/12/2025 2:00 PM EDT - 05/12/2025 3:05 PM EDT Surgery [facility] Operating Room [address] [place] [address] Catracho Vidal MD MPH [address] [place] [address] Colonoscopy Screening, High Risk with Possible Moderate Sedation [05986 (CPT??)] Scheduled Procedures Name Priority Associated Diagnoses [...] complete this topic Procedures * Due to [place] state law, this organization might not be sharing negative HIV tests. Procedure Name Priority Date/Time Associated Diagnosis Comments TISSUE EXAM Routine 11/04/2024 10:00 AM EST Anorectal polyp [place] EXCIS CHALAZION,GEN ANESTHESIA 11/04/2024 7:59 AM EST Anorectal polyp Special Needs TEM/Tamis?needs admission to hospital 5 days before surgery. please schedule surgery in Sep 2024 PHOSPHORUS Routine 11/03/2024 12:56 AM EST MAGNESIUM Routine 11/03/2024 12:56 AM EST BASIC METABOLIC PANEL Routine 11/03/2024 12:56 AM EST COLONOSCOPY 08/05/2020 from Last 3 Months or Most Recently Relevant to Health Maintenance Results * Due to [place] state law, this organization might not be sharing negative HIV tests. 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 - See note Note: The fragmented nature of specimen precludes the evaluation of margin status. [facility] MANUAL 11/05/2024 5:18 PM EST [facility] ANATOMIC PATHOLOGY LABORATORY at 1718 EST Clinical History Pre-op diagnosis: Anorectal polyp [K62.0, K62.1] [facility] MANUAL 11/05/2024 5:18 PM EST [facility] PATHOLOGY LABORAT[facility] Gross Description 1. Anus [...] quadrisected 1G-1 fragment bisected 1H-smallest fragmented bisected [facility] MANUAL 11/05/2024 5:18 PM EST [facility] Gross Description User Grossing complete by Tootie Somers on 11/04/2024 3:24 PM [facility] MANUAL 11/05/2024 5:18 PM EST [facility] Embedded Images [facility] 11/05/2024 5:18 PM EST [facility] Resulting Agency Case was signed out at [facility], Department of Pathology, Biotech 3 CLIA [id number] [facility] MANUAL 11/05/2024 5:18 PM EST [facility] Report Header Surgical Pathology Report ? Case: [id number] ? Authorizing Provider: ??Catracho Vidal MD MPH ?Collected: ? 11/04/2024 1000 ? Ordering Location: ? [facility] ? Received: ?11/04/2024 1158 ? [facility] ? Operating Room ? Pathologist: ? Mirella Cai MD ? Specimen: ?Anus, rectal polyp ? 11/05/2024 5:18 PM EST [facility] ANATOMIC PATHOLOGY LABORATORY Tissue Anal structure / Unknown 11/04/2024 10:00 AM EST 11/04/2024 11:58 AM EST Comment:Pre-op diagnosis: Anorectal polyp [K62.0, K62.1] Catracho Vidal MD MPH LAB PATHOLOGY/CYTOLOGY ORDERA BLES Final Result Performing Organization Address [facility] de Phone Number [facility] ANATOMIC PATHOLOGY LABORATORY [address] [place] [address], [facility] ANATOMIC PATHOLOGY LABORATORY [address] [place] [address], * Phosphorus (11/03/2024 12:56 AM EST) Phosphorus 2.7 2.5 - 4.5 mg/dL 11/03/2024 2:02 AM EST [facility] PATHOLOGY LABORATORY Blood Structure of peripheral vein / Unknown Venipuncture / Unknown 11/03/2024 12:56 AM EST 11/03/2024 1:26 AM EST Catracho Vidal MD MPH LAB BLOOD ORDERABLES Final Re sult Performing Organization Address [facility] Co de Phone Number [facility] CLINICAL PATHOLOGY LABORATORY [address] [place] [address], * Magnesium (11/03/2024 12:56 AM EST) MG 2.3 1.6 - 2.4 mg/dL 11/03/2024 2:02 AM EST [facility] PATHOLOGY LABORATORY Blood Structure of peripheral vein / Unknown Venipuncture / Unknown 11/03/2024 12:56 AM EST 11/03/2024 1:26 AM EST us Catracho Vidal MD MPH LAB BLOOD ORDERABLES Final Re sult [facility] CLINICAL PATHOLOGY LABORATORY [address] [place] [address], [place] * Basic Metabolic Panel (11/03/2024 12:56 AM EST) NA 138 135 - 145 mmol/L 11/03/2024 2:02 AM EST [facility] CLINICAL PATHOLOGY LAB[facility] K 3.9 3.5 - 5.3 mmol/L 11/03/2024 2:02 AM EST [facility] PATHOLOGY LAB[facility] Cl 104 98 - 107 mmol/L 11/03/2024 2:02 AM EST [facility] PATHOLOG[facility] LAB[facility] CO2 24 22 - 32 mmol/L 11/03/2024 2:02 AM EST [facility] CL[facility]ICAL PATHOLOGY LAB[facility] BUN 13 7 - 23 mg/dL 11/03/2024 2:02 AM EST [facility] CL[facility]ICAL PATHOLOGY LAB[facility]ORY Creatinine 0.70 0.50 - 1.20 mg/dL 11/03/2024 2:02 AM EST [facility] CL[facility] PATHOLOGY LAB[facility] Glucose 94 65 - 99 mg/dL 11/03/2024 2:02 AM EST [facility] CL[facility]ICAL PATHOLOGY LAB[facility] Calcium 8.7 8.6 - 10.5 mg/dL 11/03/2024 2:02 AM EST [facility] CLINICAL PATHOLOGY LABORATORY Anion Gap 10 5 - 15 11/03/2024 2:02 AM EST [facility] PATHOLOGY LABORATORY eGFR >90 >=60 mL/min/1. 73m2 11/03/2024 2:02 AM EST [facility] CLINICAL PATHOLOGY LABORATORY Comment:The estimated [...] MPH LAB BLOOD ORDERABLES Final Re sult [facility] Organization Address City/State/ZIP Co de Phone Number [facility] CLINICAL PATHOLOGY LABORATORY [address] [place] [address], [place] * COLONOSCOPY (08/05/2020) Narrative Procedure Note Catracho Vidal MD MPH - 08/05/2020 7:31 AM EST Gastroenterology Patient Name: Kirsten Ronquillo Procedure Date: 08/05/2020 7:31 AM Date of : 1955 Admit Type: Inpatient Age: 64 Room: [place] [address] Gender: Female Note Status: Finalized Attending MD: [...] and oxygen saturations were monitored continuously. The CF-[id number] was introduced through the anus and advanced [...] s ESBL Comment:ESBL E.coli 08/03/2020 08/03/2020 [place] [id number] MEDICARE Advance Directives Documents on File Type Date Recorded Patient Piping Manager Expl anation Advance Directive 07/05/2013 12:00 AM [...] Thompson Friend Health Care Agent Care Teams Hydro Pneumatic Tester Relationship Specialty Start Date End Date Sher Patrick [address] [place] [address] dr Jose Garcia, IDRIS [address] PCP - General 04/20/17
== END 2025-01-31 11:40 | disposition home or self-care (01) ==
LOC: HO.HMCHD 10:43
PROVIDERS: PCP Internal Medicine; Visit Provider Physician Assistant
DX: R45.1 Restlessness and agitation (principal); F01.50 Vascular dementia, unspecified severity, without behavioral disturbance, psychotic disturbance, mood disturbance, and anxiety; E89.0 Postprocedural hypothyroidism; R62.50 Unspecified lack of expected normal physiological development in childhood; H74.09 Tympanosclerosis, unspecified ear

== ENCOUNTER → 2025-01-31 10:42 | Outpatient (BNVA) | payer MEDICARE, MEDICAID, SELFPAY | PROVIDERS: PCP Internal Medicine; Visit Provider Physician Assistant | DX: R45.1 Restlessness and agitation (principal); E89.0 Postprocedural hypothyroidism; F01.50 Vascular dementia, unspecified severity, without behavioral disturbance, psychotic disturbance, mood disturbance, and anxiety; H74.09 Tympanosclerosis, unspecified ear; H91.93 Unspecified hearing loss, bilateral | CPT/HCPCS: 99212 ==

== ENCOUNTER 2025-02-12 09:08 | Outpatient (REF) | payer MEDICARE, MEDICAID, SELFPAY ==
--- NOTE | ~2025-02-12 | XR_ITS ---
CLINICAL HISTORY: M79.643 - Pain in unspecified hand 6 view bilateral hand Comparison: CR/SR - XR HAND WRIST RT - 09/05/24 19:01 EST CR/SR - XR HAND LT MIN 3V - 01/25/24 17:12 EDT Findings: The patient is status post open reduction internal fixation for distal left radial fracture. There is a remote left ulnar styloid fracture as well. Degenerative changes are seen particularly on the left involving the basilar joint as well as the 1st metacarpophalangeal joint and interphalangeal joint. Degenerative changes are seen at the left 2nd and 3rd interphalangeal joints. Mild degenerative changes are seen in the right. No erosive changes are noted. No erosions. No radiopaque foreign body. IMPRESSION: 1. No acute findings. Chronic degenerative changes or so on the left. This document has been electronically signed by: Arturo Caputo MD on 02/13/2025 08:22:28
--- OUTSIDE RECORDS SUMMARY | 2025-02-12 09:35 | XMS_ITS | Clinical Summary ---
Author Organization [facility] Address [address] [place] [address] Care Team Providers Care Supervisor Heat Treating Name Role Phone Sher Patrick Primary Care Provider [phone] Allergies Active Allergy Reactions Criticality Noted Date [...] 8:48:00 EST, Dry Weight 4 Active INV [id number] triamcinolone acetoniden 0.1% topical ointment Apply topically [...] Department Care Team Description 11/15/2024 Orders Only [facility] Colorectal Surgery [address] [place] [address] Home Teaching Grades 7 And 8 Teacher: Kori Mike RN Colorectal cancer (Primary Dx) from Last 3 Months Immunizations [...] drink = 0.6 oz pur e alcohol) [facility] Utilities Answer Date Recorded In the past 12 months has e electric, gas, oil, or water company [...] Description 05/09/2025 2:00 PM EDT Hospital Encounter [facility] Operating Room [address] [place] [address] Catracho Vidal MD MPH [address] [place], [place] [id number] 05/12/2025 2:00 PM EDT - 05/12/2025 3:05 PM EDT Surgery [facility] Operating Room [address] [place] [address] Catracho Vidal MD MPH [address] [place] [address] Colonoscopy Screening, High Risk with Possible Moderate Sedation [56401 (CPT??)] Scheduled Procedures Name Priority Associated Diagnoses [...] (1 - Tdap) 08/18/2015 08/17/2015 COVID-19 Vaccine (4 - 2023- season) 2024 04/18/2024, 12/02/2020, 11/04/2020 Colonoscopy 07/02/2024 [...] this topic Procedures * Due to [facility] law, this organization might not be sharing negative HIV tests. Procedure Name Priority Date/Time Associated Diagnosis Comments BASIC METABOLIC PANEL Routine 11/03/2024 12:56 AM EST COLONOSCOPY 08/05/2020 from Last 3 Months or Most Recently Relevant to Health Maintenance Results * Due to [facility] law, this organization might not be sharing negative HIV tests. * Basic Metabolic Panel (11/03/2024 12:56 AM EST) NA 138 135 - 145 mmol/L 11/03/2024 2:02 AM EST [facility] CLINICAL PATHOLOGY LABORATORY K 3.9 3.5 - 5.3 mmol/L 11/03/2024 2:02 AM EST [facility] CLINICAL PATHOLOGY LABORATORY Cl 104 98 - 107 mmol/L 11/03/2024 2:02 AM EST [facility] CLINICAL PATHOLOGY LABORATORY CO2 24 22 - 32 mmol/L 11/03/2024 2:02 AM EST [facility] CLINICAL PATHOLOGY LABORATORY BUN 13 7 - 23 mg/dL 11/03/2024 2:02 AM [facility] CLINICAL PATHOLOGY LABORATORY Creatinine 0.70 0.50 - 1.20 mg/dL 11/03/2024 2:02 AM EST [facility] CLINICAL PATHOLOGY LABORATORY Glucose 94 65 - 99 mg/dL 11/03/2024 2:02 AM EST [facility] CLINICAL PATHOLOGY LABORATORY Calcium 8.7 8.6 - 10.5 mg/dL 11/03/2024 2:02 AM [facility] CLINICAL PATHOLOGY LABORATORY Anion Gap 10 5 - 15 11/03/2024 2:02 AM EST [facility] CLINICAL PATHOLOGY LABORATORY eGFR >90 >=60 mL/min/1. 73m2 11/03/2024 2:02 AM EST [facility] CLINICAL PATHOLOGY LABORATORY Comment:The estimated glomer ular [...] MPH LAB BLOOD ORDERABLES Final Re sult [facility] CLINICAL PATHOLOGY LABORATORY [address] [place] [address], * COLONOSCOPY (08/05/2020) Narrative Procedure Note Catracho Vidal MD MPH - 08/05/2020 7:31 AM EST Gastroenterology Patient Name: Kirsten Ronquillo Procedure Date: 08/05/2020 7:31 AM Date of : 1955 Admit Type: Inpatient Age: 64 Room: [place] [address] Gender: Female Note Status: Finalized Attending MD: [...] and oxygen saturations were monitored continuously. The CF-[id number] was introduced through the anus and advanced [...] s ESBL Comment:ESBL E.coli 08/03/2020 08/03/[address] [place] [place] [address] MEDICARE Advance Directives Documents on File Type Date Recorded Patient Brusher Hand Expl anation Advance Directive 07/05/2013 12:00 AM [...] Thompson Friend Health Care Agent Care Teams Supervisor Heat Treating Relationship Specialty Start Date End Date Sher Patrick [address] [place] [address] dr Jose Garcia, [place] [address] PCP - General 04/20/17
--- OUTSIDE RECORDS SUMMARY | 2025-02-12 09:35 | XMS_ITS | Encounter Summary ---
Author Organization [facility] Address [address] [place] [address] Care Team Providers Care Bag Maker Name Role Phone Sher Patrick Primary Care Provider Reason for Visit * Reason Onset Date Comments Needs to reschedule 09/28/2020 Encounter Details Date Type Department Care Team (Late st Contact Info) Description 09/28/2020 Telephone [facility] Central Scheduling Department [address] [place] [address] Telephone Intake, Staff Needs to reschedule Social [...] Description 05/09/2025 2:00 PM EDT Hospital Encounter [facility] Operating Room [address] [place] [address] Catracho Vidal MD MPH [address] [place] [address] 05/12/2025 2:00 PM EDT - 05/12/2025 3:05 PM EDT Surgery [facility] Operating Room [address] [place] [address] Catracho Vidal MD MPH [address] [place] [address] Colonoscopy Screening, High Risk with Possible Moderate Sedation [69519 (CPT??)] Scheduled Procedures Name Priority Associated Diagnoses [...] documented as of this encounter Care Teams Bag Maker Relationship Specialty Start Date End Date Sher Patrick [address] [place] [address] [place] [address] PCP - General 04/20/17 documented as of this encounter
--- OUTSIDE RECORDS SUMMARY | 2025-02-12 09:35 | XMS_ITS | Referral Summary ---
Author Organization [facility] Address [address] [place] [address] Care Team Providers Care Elastic Attacher Overlock Name Role Phone Sher Patrick Primary Care Provider [phone] Encounters Date Type Department Care Team Description 11/15/2024 Orders Only [facility] Colorectal Surgery [address] [place] [address] Construction Carpenters Helper: Kori Mike RN Colorectal cancer (Primary Dx) from Last 3 Months Allergies [...] 325 mg by mouth. 325mg by mouth Mon-Mon-Fri in AM 4 Active methenamine (HIPREX) 1 gram tablet See Instructions, TAKE 1 TABLET BY MOUTH TWICE DAILY., # 90 capsule, 3 Refills, Maintenance, 06/28/24 10:07:[facility], 154, cm, 11/02/23 15:00:00 EST, Height, 57.6, kg, 12/01/23 8:48:00 EST, Dry Weight 4 Active INV [id number] triamcinolone acetoniden 0.1% topical ointment Apply topically [...] bowel obstruction 09/17/2022 122 Preoperative clearance 08/03/202008/06 Immunizations Immunization Administration Dates Next Due Influenza, Injectable, Quadrivalent, Preservativ e Free 07/05/2021 Social History Tobacco Use Types Packs/Day Years Used Date Smoking Tobacco: Never Smokeless Tobacco: Never Tobacco Cessation:Counseling Given: Not Answered Alcohol Use Standard Drinks/Week Comments Never 0 (1 standard drink = 0.6 oz pur e alcohol) [facility] Utilities Answer Date Recorded In the past 12 months has th e [employer], gas, oil, or water [employer] threatened to shut off services in your [...] Description 05/09/2025 2:00 PM EDT Hospital Encounter [facility] Operating Room [address] [place] [address] Catracho Vidal MD MPH [address] [place], [place] [id number] 05/12/2025 2:00 PM EDT - 05/12/2025 3:05 PM EDT Surgery [facility] Operating Room [address] [place] [address] Catracho Vidal MD MPH [address] [place] [address] Colonoscopy Screening, High Risk with Possible Moderate Sedation [84116 (CPT??)] Scheduled Procedures Name Priority Associated Diagnoses Date/Ti me COLONOSCOPY SCREENING, HIGH RISK WITH POSSIBLE MODERATE SEDATION Colorectal cancer (HCC) 05/12/2025 2:00 PM EDT Procedures * Due to [place] VIP Parking law, this organization might not be sharing negative HIV tests. Procedure Name Priority Date/Time Associated Diagnosis Comments BASIC METABOLIC PANEL Routine 11/03/2024 12:56 AM EST COLONOSCOPY 08/05/2020 from Last 3 Months or Most Recently Relevant to Health Maintenance Results * Due to [place] [employer] Parking law, this organization might not be sharing negative HIV tests. * Basic Metabolic Panel (11/03/2024 12:56 AM EST) NA 138 135 - 145 mmol/L 11/03/2024 2:02 AM EST [facility] K 3.9 3.5 - 5.3 mmol/L 11/03/2024 2:02 AM EST [facility] Cl 104 98 - 107 mmol/L 11/03/2024 2:02 AM EST [facility] CO2 24 22 - 32 mmol/L 11/03/2024 2:02 AM [facility] BUN 13 7 - 23 mg/dL 11/03/2024 2:02 AM [facility] Creatinine 0.70 0.50 - 1.20 mg/dL 11/03/2024 2:02 AM [facility] Glucose 94 65 - 99 mg/dL 11/03/2024 2:02 AM EST [facility] Calcium 8.7 8.6 - 10.5 mg/dL 11/03/2024 2:02 AM [facility] Anion Gap 10 5 - 15 11/03/2024 2:02 AM [facility] eGFR >90 >=60 mL/min/1. 73m2 11/03/2024 2:02 AM [facility] Comment:The estimated glomer ular filtration [...] AM EST 11/03/2024 1:26 AM EST us Catracoh Vidal MD MPH LAB BLOOD ORDERABLES Final Re sult [facility] [address] [place] [address], [place] * COLONOSCOPY (08/05/2020) Narrative Procedure Note Catracho Vidal MD MPH - 08/05/2020 7:31 AM EST Gastroenterology Patient Name: Kirsten Ronquillo Procedure Date: 08/05/2020 7:31 AM Date of : 1955 Admit Type: Inpatient Age: 64 Room: [place] [id number] Gender: Female Note Status: Finalized Attending MD: [...] and oxygen saturations were monitored continuously. The [id number] was introduced through the anus and advanced [...] s ESBL Comment:ESBL E.coli 08/03/2020 08/03/2020 Insurance [employer] MEDICARE Advance Directives Documents on File Type Date Recorded Patient Safety Attendant Expl anation Advance Directive 07/05/2013 12:00 AM [...] Agents on File Name Relationship Healthcare Agent Rigo singh Communication Isi Malhotrax Friend Health Care Agent Care Teams Elastic Attacher Overlock Relationship Specialty Start Date End Date Sher Patrick [address] [place] [address] dr Jose Garcia, IDRIS [address] PCP - General 04/20/17
--- OUTSIDE RECORDS SUMMARY | 2025-02-12 09:35 | XMS_ITS | Clinical Summary ---
Author Organization [facility] Address [address] [address] Phone Care Team Providers Care Nurse Advocate Name Role Phone Sher Patrick MD Primary Care Provider Allergies Active Allergy Reactions Criticality Noted Date [...] topic Insurance Medicare Medicaid [place] Care Teams Nurse Advocate Relationship Specialty Start Date End Date Sher Patrick MD [address] [place] [address] [address] [place] PCP - General Internal Medicine 09/17/24
== END 2025-02-12 09:09 | disposition home or self-care (01) ==
LOC: HO.HOSX 09:08
DX: M79.643 Pain in unspecified hand (principal)
CPT/HCPCS: 73130

== ENCOUNTER 2025-02-12 10:04 | Outpatient (AMB) | payer MEDICARE, MEDICAID, SELFPAY ==
--- NOTE | 2025-02-12 10:04 | MHC.OFFVIS ---
Intake Visit Reasons: OV- B/L hand pain Intake Note: Kirsten is a 69 year old right hand dominant female who presents today post operatively s/p left carpal tunnel release DOS: 12/10/24 w/ Dr Mirna Delong. Patient reports she is having pain in her hand and she would like to know what she can do to help with the pain. Allergies adhesive tape Allergy (Intermediate, Verified 02/12/25 10:05) itching and skin redness latex Allergy (Intermediate, Verified 02/12/25 10:05) skin rash and itching Seasonal Allergies Allergy (Verified 02/12/25 10:05) Itching weed pollen Allergy (Verified 02/12/25 10:05) stuffy nose DUST Allergy (Unknown, Uncoded 12/24/24 10:43) ITCHY/WATERY EYES surgical paper tape Allergy (Unknown, Uncoded 12/24/24 10:43) rash Tide Allergy (Unknown, Uncoded 12/24/24 10:43) rash HPI HPI OV- B/L hand pain: Details: Kirsten is a 69 year old right hand dominant female who presents today post operatively s/p left carpal tunnel release DOS: 12/10/24 w/ Dr Mirna Delong. Patient reports she is having pain in her left hand and she would like to know what she can do to help with the pain. Patient reports that most of her pain is both radial and ulnar to the incision site for her left carpal tunnel release. Denies any ongoing numbness or tingling. PFSH Medical History Abnormal MRI Post-surgical hypothyroidism History of ESBL E. coli infection Toxic multinodular goiter Vitamin D deficiency Hyperthyroidism Colon cancer Lung mass Developmental delay, mild Arthritis Surgical History History of carpal tunnel surgery of right wrist Hx of total thyroidectomy History of biopsy Hx of colonic polyps Hx of colonoscopy Family History Father No problems noted. Mother Medical history unknown Social History Household Members: Caregiver Household Members Other:: gr home Housing: Other Housing Other:: senior living Unable to assess alcohol history related to: Unknown Alcohol intake: never Patient Tobacco Use Status: Never used Tobacco e-Cigarette/Vaping Use: Never Used Second Hand Smoke Exposure: No Advance Directives Date on File: 01/05/21 service: No Current occupational status: disabled Current occupation: right handed Cognitive needs: Yes (walker) Hearing needs: No Vision needs: Yes (rx glasses) Review of Systems Const All systems reviewed & are unremarkable except as noted in HPI and below Physical Exam Extrem Other: Evaluation of left Upper Extremity: The patient is alert, oriented, and in no acute distress She has an intellectual handicap but was able to actively participate in her appointment today. She is a poor historian Neuro: Sensation intact to the median nerve distribution of the left Normal sensation of the tip of the bilateral small fingers No thenar or intrinsic wasting Vascular: Cap refill brisk Pain: Patient does report some tenderness to deeper palpation on the radial and ulnar aspects of the incision site, consistent with pillar pain ROM: She can make a fist and extend all her digits The incision site appears to be healing well. No purulence or drainage from the incision site No erythema or edema noted She can easily make a fist and extend all of her digits without discomfort. Assessment & Plan Assessment & Plan (1) Postoperative pillar pain: Code(s): G89.18 - Other acute postprocedural pain Category: Medical Plan 1. Pillar pain status post left carpal tunnel release With complete symptom resolution otherwise At this time, patient is educated about this condition and the typical treatment course Patient is referred to occupational therapy for range of motion and strengthening in the setting of pillar pain Patient is amenable to this plan Follow-up as needed Orders: Orders XR Hand Bilat min 3v Today M79.643 - Pain in unspecified hand OT Evaluation and Treatment Today G89.18 - Other acute postprocedural pain Coding Level of Care Code Est Pt Level 3 (36434) Diagnoses Postoperative pillar pain G89.18
--- OUTSIDE RECORDS SUMMARY | 2025-02-12 10:59 | XMS_ITS | Encounter Summary ---
Author Organization [facility] Address [address] [place] [address] Care Team Providers Care Funeral Workers Name Role Phone Sher Patrick Primary Care Provider [phone] Reason for Visit * Reason Onset Date Comments Needs to reschedule 09/28/2020 Encounter Details Date Type Department Care Team (Late st Contact Info) Description 09/28/2020 Telephone [facility] Central Scheduling Department [address] [place] [address] Telephone Intake, Staff Needs to reschedule Social [...] Description 05/09/2025 2:00 PM EDT Hospital Encounter [facility] Operating Room [address] [place] [address] Catracho Vidal MD MPH [address] [place] [address] 05/12/2025 2:00 PM EDT - 05/12/2025 3:05 PM EDT Surgery [facility] Operating Room [address] [place] [address] Catracho Vidal MD MPH [address] [place] [address] Colonoscopy Screening, High Risk with Possible Moderate Sedation [93516 (CPT??)] Scheduled Procedures Name Priority Associated Diagnoses [...] documented as of this encounter Care Teams Funeral Workers Relationship Specialty Start Date End Date Sher Patrick [address] [place] [address] [place] [address] PCP - General 04/20/17 documented as of this encounter
--- OUTSIDE RECORDS SUMMARY | 2025-02-12 10:59 | XMS_ITS | Clinical Summary ---
Author Organization [facility] Address [address] [place] [address] Phone Care Team Providers Care Utility Driver Name Role Phone Sher Patrick MD Primary Care Provider [phone] Allergies Active Allergy Reactions Criticality Noted Date [...] topic Insurance Medicare Medicaid [place] Care Teams Utility Driver Relationship Specialty Start Date End Date Sher Patrick MD [address] [place] [address] DR[address] [place] PCP - General Internal Medicine 09/17/24
--- OUTSIDE RECORDS SUMMARY | 2025-02-12 10:59 | XMS_ITS | Referral Summary ---
Author Organization [facility] Address [address] [place] [address] Care Team Providers Care Business Office Representative Name Role Phone Sher Patrick Primary Care Provider [phone] Encounters Date Type Department Care Team Description 11/15/2024 Orders Only [facility] Colorectal Surgery [address] [place] [address] [address] Light Servicer Helper: Kori Mike RN Colorectal cancer (Primary [...] 8:48:00 EST, Dry Weight 4 Active INV [id number] triamcinolone acetoniden 0.1% topical ointment Apply topically [...] 0.6 oz pur e alcohol) [facility] Utilities Answer Date Recorded In the past 12 months has th e [employer], gas, oil, or water [employer] threatened to shut off services in your [...] Encounter [facility] Operating Room [address] [place] [address] Catracho Vidal MD MPH [address] [place], [place] [phone] 05/12/2025 2:00 PM EDT - 05/12/2025 3:05 PM EDT Surgery [facility] Operating Room [address] [place] [address] Catracho Vidal MD MPH [address] [place] [address] Colonoscopy Screening, High Risk with Possible Moderate Sedation [32426 (CPT??)] Scheduled Procedures Name Priority Associated Diagnoses Date/Ti me COLONOSCOPY SCREENING, HIGH RISK WITH POSSIBLE MODERATE SEDATION Colorectal cancer (HCC) 05/12/2025 2:00 PM EDT Procedures * Due to [place] [employer] law, this organization might not be sharing negative HIV tests. Procedure Name Priority Date/Time Associated Diagnosis Comments BASIC METABOLIC PANEL Routine 11/03/2024 12:56 AM EST COLONOSCOPY 08/05/2020 from Last 3 Months or Most Recently Relevant to Health Maintenance Results * Due to [place] [employer] law, this organization might not be sharing negative HIV tests. * Basic Metabolic Panel (11/03/2024 12:56 AM EST) NA 138 135 - 145 mmol/L 11/03/2024 2:02 AM EST [facility] K 3.9 3.5 - 5.3 mmol/L 11/03/2024 2:02 AM EST [facility] Cl 104 98 - 107 mmol/L 11/03/2024 2:02 AM EST [facility] CO2 24 22 - 32 mmol/L 11/03/2024 2:02 AM [facility] BUN 13 7 - 23 mg/dL 11/03/2024 2:02 AM [facility] Creatinine 0.70 0.50 - 1.20 mg/dL 11/03/2024 2:02 AM [facility] Glucose 94 65 - 99 mg/dL 11/03/2024 2:02 AM EST [facility] Calcium 8.7 8.6 - 10.5 mg/dL 11/03/2024 2:02 AM [facility] Anion Gap 10 5 - 15 11/03/2024 2:02 AM [facility] eGFR >90 >=60 mL/min/1. 73m2 11/03/2024 2:02 AM [facility] Comment:The estimated glomer ular [...] MPH LAB BLOOD ORDERABLES Final Re sult [facility] [address] [place] [address], [place] * COLONOSCOPY (08/05/2020) Narrative Procedure Note Catracho Vidal MD MPH - 08/05/2020 7:31 AM EST Gastroenterology Patient Name: Kirsten Ronquillo Procedure Date: 08/05/2020 7:31 AM Date of : 1955 Admit Type: Inpatient Age: 64 Room: [place] [address] Gender: Female Note Status: Finalized Attending MD: [...] and oxygen saturations were monitored continuously. The [id number] was introduced through the anus and advanced [...] s ESBL Comment:ESBL E.coli 08/03/2020 08/03/2020 Insurance [employer] MEDICARE Advance Directives Documents on File Type Date Recorded Patient Manager Shop Expl anation Advance Directive 07/05/2013 12:00 AM [...] Malhotrax Friend Health Care Agent Care Teams Business Office Representative Relationship Specialty Start Date End Date Sher Patrick [address] [place] [address] dr Jose Garcia, IDRIS [address] PCP - General 04/20/17
--- OUTSIDE RECORDS SUMMARY | 2025-02-12 11:00 | XMS_ITS | Clinical Summary ---
Author Organization [facility] Address [address] [place] [address] Care Team Providers Care Server Cashier Name Role Phone Sher Patrick Primary Care Provider [phone] Allergies Active Allergy Reactions Criticality Noted Date [...] 8:48:00 EST, Dry Weight 4 Active INV [id number] triamcinolone acetoniden 0.1% topical ointment Apply topically [...] Department Care Team Description 11/15/2024 Orders Only [facility] Colorectal Surgery [address] [place] [address] Application Tester: Kori Mike RN Colorectal cancer (Primary Dx) [...] drink = 0.6 oz pur e alcohol) [facility] Utilities Answer Date Recorded In [...] Description 05/09/2025 2:00 PM EDT Hospital Encounter [facility] Operating Room [address] [place] [address] Catracho Vidal MD MPH [address] [place], [place] [phone] 05/12/2025 2:00 PM EDT - 05/12/2025 3:05 PM EDT Surgery [facility] Operating Room [address] [place] [address] Catracho Vidal MD MPH [address] [place] [address] Colonoscopy Screening, High Risk with Possible Moderate Sedation [49740 (CPT??)] Scheduled Procedures Name Priority Associated Diagnoses [...] complete this topic Procedures * Due to [facility] law, this organization might not be sharing negative HIV tests. Procedure Name Priority Date/Time Associated Diagnosis Comments BASIC METABOLIC PANEL Routine 11/03/2024 12:56 AM EST COLONOSCOPY 08/05/2020 from Last 3 Months or Most Recently Relevant to Health Maintenance Results * Due to [facility] law, this organization might not be sharing negative HIV tests. * Basic Metabolic Panel (11/03/2024 12:56 AM EST) NA 138 135 - 145 mmol/L 11/03/2024 2:02 AM EST [facility] K 3.9 3.5 - 5.3 mmol/L 11/03/2024 2:02 AM EST [facility] Cl 104 98 - 107 mmol/L 11/03/2024 2:02 AM EST [facility] CO2 24 22 - 32 mmol/L 11/03/2024 2:02 AM EST [facility] BUN 13 7 - 23 mg/dL 11/03/2024 2:02 AM [facility] Creatinine 0.70 0.50 - 1.20 mg/dL 11/03/2024 2:02 AM EST [facility] Glucose 94 65 - 99 mg/dL 11/03/2024 2:02 AM EST [facility] Calcium 8.7 8.6 - 10.5 mg/dL 11/03/2024 2:02 AM [facility] Anion Gap 10 5 - 15 11/03/2024 2:02 AM EST [facility] eGFR >90 >=60 mL/min/1. 73m2 11/03/2024 2:02 AM EST [facility] Comment:The estimated glomer [...] MPH LAB BLOOD ORDERABLES Final Re sult [facility] [address] [place] [address], * COLONOSCOPY (08/05/2020) Narrative Procedure Note Catracho Vidal MD MPH - 08/05/2020 7:31 AM EST Gastroenterology Patient Name: Kirsten Ronquillo Procedure Date: 08/05/2020 7:31 AM Date of : 1955 Admit Type: Inpatient Age: 64 Room: [place] [address] Gender: Female Note Status: Finalized Attending MD: [...] and oxygen saturations were monitored continuously. The CF-[id number] was introduced through the anus and advanced [...] s ESBL Comment:ESBL E.coli 08/03/2020 08/03/[address] [place] [address] MEDICARE Advance Directives Documents on File Type Date Recorded Patient Privacy Analyst Expl anation Advance Directive 07/05/2013 12:00 AM [...] Thompson Friend Health Care Agent Care Teams Server Cashier Relationship Specialty Start Date End Date Sher Patrick [address] [place] [address] dr Jose Garcia, IDRIS [address] PCP - General 04/20/17
== END 2025-02-12 10:32 | disposition home or self-care (01) ==
LOC: HO.HOS 10:04
PROVIDERS: PCP Internal Medicine
DX: G89.18 Other acute postprocedural pain (principal); G56.02 Carpal tunnel syndrome, left upper limb
CPT/HCPCS: 99024

== ENCOUNTER → 2025-02-12 10:07 | Outpatient (BNV) | payer MEDICARE, MEDICAID, SELFPAY | PROVIDERS: Visit Provider Radiology Diagnostic Radiology | DX: M19.042 Primary osteoarthritis, left hand (principal) | CPT/HCPCS: 73130 ==

== ENCOUNTER 2025-02-14 12:03 | Emergency (ER) | payer MEDICARE, MEDICAID, SELFPAY ==
--- NOTE | ~2025-02-14 | CT_ITS ---
EXAMINATION: CT HEAD WITHOUT IV CONTRAST HISTORY: fall, +HS. TECHNIQUE: Unenhanced helical CT of the head was performed per standard departmental protocol. Coronal and sagittal reformats of the head were also evaluated. One or more of the following techniques was used for dose reduction: Automated exposure control, adjustment of the mA and/or kV according to patient size, use of iterative reconstruction technique. DLP: 830 mGy-cm COMPARISON: Terrance is made with the prior examination dated 09/20/2024. FINDINGS: The examination is somewhat limited by patient motion. BRAIN: The brain parenchyma is unremarkable. There is normal elder/white differentiation. The ventricular system is normal in size and configuration. There is no mass effect or midline shift. No intra- or extra-axial fluid collections are identified. SINUSES: The visualized paranasal sinuses are clear. The mastoid air cells and middle ear cavities are well pneumatized. ORBITS: The visualized orbits are unremarkable. BONES/SOFT TISSUES: There is mild left frontal soft tissue swelling. 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 The calvarium is intact. No suspicious lytic or sclerotic lesions. CT/CT head/brain wo IV con IMPRESSION: 1. Mild left frontal soft tissue swelling. No acute intracranial abnormality. 2. 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 Electronically signed by: Harvinder Salinas MD 02/14/2025 01:06 PM EDT
--- NOTE | ~2025-02-14 | CT_ITS ---
EXAMINATION: CT CERVICAL SPINE WITHOUT CONTRAST CLINICAL INFORMATION: Fall, head injury. COMPARISON: 09/20/2024. TECHNIQUE: Spiral CT imaging of the cervical spine performed in axial plane without contrast. Multiplanar reformatted images were constructed from the axial data set. This CT examination was performed using dose optimization techniques as appropriate, variously including the following: *Automated exposure control *Adjustment of mA and/or kV according to patient size (this includes techniques or standardized protocols for targeted exams where dose is matched to indication/reason for exam; i.e. extremities or head) *Use of iterative reconstruction technique FINDINGS: Study somewhat limited by motion artifact. This limits sensitivity of the scan. CORONAL ALIGNMENT: -Mild levoconvex scoliosis. SAGITTAL ALIGNMENT: -Straightening of the normal lordosis. -No evidence of traumatic subluxation. -There is a 3 mm degenerative anterolisthesis of C4 on C5, and C6 on C7. C1-C2 AND CRANIOCERVICAL JUNCTION: -Intact and normally aligned. Moderate degenerative arthrosis of the anterior atlantoaxial joint. VERTEBRAL BODIES AND FACETS: -No fractures, compression deformities, traumatic subluxations, or suspicious bone lesion. -Normal facet alignment bilaterally, with multilevel marked hypertrophic degenerative facet changes bilaterally. DISCS: -Moderate diffuse disc degeneration present. CENTRAL CANAL: -No evidence of high-grade central canal narrowing or large disc herniation allowing for modality limitations. PREVERTEBRAL AND PARAVERTEBRAL SOFT TISSUES: -Within the confines of motion, there is no prevertebral soft tissue swelling or edema. -The thyroid is not well seen and may be surgically absent. -Patulous appearing cervical esophagus, partially imaged. LUNG APICES: -Clear bilaterally with mild mosaic attenuation. CT/CT cervical spine wo IV con IMPRESSION: 1. No CT evidence of acute cervical spine fracture or injury. 2. Advanced degenerative spondylosis. Electronically signed by: Damian Starr MD 02/14/2025 01:05 PM EDT
[2025-02-14 12:17] VITALS: BP 134/67; BP 139/64; PULSE 57; PULSE 58; RESP 16; TEMP 36.6; O2SAT 100; O2SAT 97; BMI 26.1
--- NOTE | 2025-02-14 12:33 | ED.HEATRA ---
HPI - Head Injury General Chief complaint: Fall Stated complaint: PER EMS FALL FROM WHEELCHAIR +HS -LOC Time Seen by Provider: 02/14/25 12:58 Source: patient and EMS Mode of arrival: EMS Limitations: no limitations History of Present Illness ED Provider: allison sapp np HPI Narrative: Patient is a 69-year-old female who presents emergency department via EMS for evaluation. Reportedly had a fall out of the wheelchair at an adult daycare center. Evidently she had fallen asleep. At the time of my evaluation there is long term staff present in the room, they were not there during the fall at the adult day program. Staff member does reports that she does not typically fall asleep frequently throughout the day. She is a very alert and spry otherwise. Conflicting information as to whether head strike did in fact occur, however there is denial of LOC. Patient offers no complaints when asked. longterm staff member present does however admit that he typically works the restaurant shift supervisor and recently she has been not sleeping at night, seeming somewhat agitated at night and frequently making trips to the bathroom. Related Data Home Medications ?Medication ?Instructions ?Recorded ?Confirmed nystatin 100,000 unit/gram topical 1 appl topical BID PRN Rash 01/05/21 01/31/25 powder triamcinolone acetonide 0.1 % 1 appl topical BID PRN Skin 01/24/23 01/31/25 topical ointment Irritation melatonin 10 mg tablet 10 mg PO BEDTIME 05/10/23 01/31/25 ascorbic acid (vitamin C) 500 mg 500 mg PO BID 03/13/24 01/31/25 tablet (Vitamin C) betamethasone dipropionate 0.05 % 1 appl topical BID PRN Dry areas 03/13/24 01/31/25 topical ointment on hand zinc oxide-vitamin B5-vit E 11.3% 1 appl topical BID Rash 03/13/24 01/31/25 topical cream (Balmex Adult Care) quetiapine 100 mg tablet 100 mg PO BID 01/31/25 01/31/25 triamcinolone acetonide 0.1 % 1 appl topical BID 01/31/25 01/31/25 topical cream vibegron 75 mg tablet (Gemtesa) 75 mg PO DAILY 01/31/25 01/31/25 Previous Rx's ?Medication ?Instructions ?Recorded carbamazepine 200 mg tablet 400 mg (2 x 200 mg) PO BEDTIME #60 09/23/24 tabs donepezil 5 mg tablet 5 mg PO BEDTIME #30 tabs 09/23/24 quetiapine 50 mg tablet 50 mg PO TID #90 tabs 09/23/24 trazodone 100 mg tablet 100 mg PO BEDTIME #30 tabs 09/23/24 acetaminophen 500 mg tablet 500 mg PO Q6H PRN fever or pain 12/19/24 #100 tabs aspirin 81 mg tablet,delayed 81 mg PO DAILY #90 tabs 12/19/24 release docusate sodium 100 mg capsule 100 mg PO BID #180 caps 12/19/24 ferrous sulfate 325 mg (65 mg See Rx Instructions .Route 12/19/24 iron) tablet (FeroSul) .COMPLEX #36 tabs ibuprofen 400 mg tablet 400 mg PO Q6H PRN Pain #100 tabs 12/19/24 levothyroxine 200 mcg tablet 200 mcg PO DAILY #90 tabs 12/19/24 loratadine 10 mg tablet 10 mg PO DAILY #90 tabs 12/19/24 multivitamin 1 tab PO DAILY #90 tabs 12/19/24 sennosides 8.6 mg tablet (Senna 8.6 mg PO Q48H constipation #45 12/19/24 Lax) tabs tamsulosin 0.4 mg capsule 0.4 mg PO Q24H #90 caps 12/19/24 Order for straight catherization See Rx Instructions .Route 01/08/25 for urine collection .COMPLEX #1 ea Icy Hot Pain Relieving 2.5 % 1 appl topical BID #70.8 grams 01/13/25 topical gel (menthol) methyl salicylate 30 %-menthol 10 See Rx Instructions .Route 01/17/25 % topical cream (Icy Hot) .COMPLEX PRN for pain #85 grams fluticasone propionate 50 1 spray intranasal BID PRN nasal 01/31/25 mcg/actuation nasal congestion #16 grams spray,suspension (Allergy Relief (fluticasone)) methenamine hippurate 1 gram tablet 1 g PO BID #180 tabs 01/31/25 Balmex (petrolatum) 51.1 % topical 1 appl topical TID PRN dry skin 02/05/25 ointment (white petrolatum) #99 grams furosemide 40 mg tablet 40 mg PO DAILY 3 days #3 tabs 02/07/25 cefuroxime axetil 250 mg tablet 250 mg PO BID #10 tabs 02/14/25 Allergies Allergy/AdvReac Type Severity Reaction Status Date / Time adhesive tape Allergy Intermediate itching Verified 02/14/25 12:19 and skin redness latex Allergy Intermediate skin rash Verified 02/14/25 12:19 and itching Seasonal Allergies Allergy Itching Verified 02/14/25 12:19 weed pollen Allergy stuffy nose Verified 02/14/25 12:19 DUST Allergy Unknown ITCHY/WATERY Uncoded 02/14/25 12:19 EYES surgical paper tape Allergy Unknown rash Uncoded 02/14/25 12:19 Tide Allergy Unknown rash Uncoded 02/14/25 12:19 Review of Systems Review of Systems: Yes all other systems are reviewed and are negative [facility] Past Medical History Attestation statement: The following information was validated with the patient. Source: old records reviewed Medical History Abnormal MRI Post-surgical hypothyroidism History of ESBL E. coli infection Toxic multinodular goiter Vitamin D deficiency Hyperthyroidism Colon cancer Lung mass Developmental delay, mild Arthritis Surgical History History of carpal tunnel surgery of right wrist Hx of total thyroidectomy History of biopsy Hx of colonic polyps Hx of colonoscopy Family History Family History Father No problems noted. 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 Household Members Other:: gr home Housing: Other Housing Other:: long term Unable to assess alcohol history related to: Unknown Alcohol intake: never Patient Tobacco Use Status: Never used Tobacco e-Cigarette/Vaping Use: Never Used Second Hand Smoke Exposure: No Advance Directives: Yes Advance Directives on File: Yes Advance Directives Date on File: 01/05/21 service: No Current occupational status: disabled Current occupation: right handed Cognitive needs: Yes (walker) Hearing needs: No Vision needs: Yes (rx glasses) Physical Exam Vital Signs: Vital Signs: Last Vital Signs Temp 97.8 F 02/14/25 12:17 Pulse 58 02/14/25 12:17 Resp 16 02/14/25 12:17 BP 139/64 02/14/25 12:17 Pulse Ox 100 02/14/25 12:17 O2 Del Method Room Air 02/14/25 12:17 BMI result Body Mass Index 26.1 Appearance: Alert.?Oriented to person. No acute distress.?Normal affect. Head: Normocephalic Eyes: Pupils equal, round and reactive to light. EOMI. Conjunctiva and sclera normal? No Pickett sign noted. No raccoon eyes noted ENT: No septal hematoma, nares patent bilaterally. External auditory canal normal tympanic membrane pearly elder and intact bilaterally. Dentition normal, no fractured teeth. No lesions or lacerations of oropharynx. Uvula midline. Moist mucous membranes. Neck: Normal inspection.? Neck supple.??No palpable tenderness, step-off, deformities. CVS: Heart sounds normal. Normal heart rate and rhythm.? Pulses normal.?? Respiratory: No respiratory distress.? Lung sounds clear to auscultation bilaterally?? Abdomen: Soft and non-tender. Normoactive bowel sounds. ?? Skin: Skin warm and dry.? Normal skin color.? ?? Extremities: No lower extremity edema.? Neuro: Moves all extremities spontaneously. Sensation intact bilaterally. CN II-XII intact. No focal neuro deficits. Course Reevaluation(s) Reevaluation #1: CBC is without leukocytosis, has a normocytic anemia not meeting transfusion criteria, mild thrombocytopenia. No significant electrolyte derangement. No DOMINICK. urinalysis with 1+ leukocyte esterase in addition to presence of squamous epithelial cells, trace urine bacteria, concerning for possible urogenital contamination however given staff report of urinary frequency, will treat with course of cefuroxime. 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 cervical spine CT without acute fracture subluxation. Time: 15:20 Medications Administered Discontinued Medications Generic Name Dose Route Start Last Admin Trade Name Freq PRN Reason Stop Dose Admin Cefuroxime Axetil 250 mg 02/14/25 15:25 02/14/25 15:56 Cefuroxime Axetil 250 Mg Tablet PO 02/14/25 15:26 250 mg ONCE ONE Administration Medical Decision Making Medical Decision Making [facility] Narrative: patient is a 69-year-old female with past medical history developmental delay, hyperthyroidism, UTI with history of ESBL E coli who presents emergency department for evaluation after a fall on a wheelchair with possible head strike but no reported LOC as per HPI. Patient is overall well-appearing, she does seem to fall asleep during my evaluation but easily arousable to minimal verbal stimuli. She is following most commands when asked, does not appear to have any apparent focal neurological deficits. Moving the bilateral in upper lower extremities accordingly. longterm staff member present at bedside states that she is typically very alert and verbal, she can ambulate with use of a walker, although as per HPI he does admit that she has spent many nights awake with mild agitation and frequent trips to the restroom. Given age and mechanism of injury will obtain CT of the head and cervical spine to exclude ICH, SDH, skull fracture, cervical spine fracture or subluxation. In addition will obtain serum labs and urinalysis. She is currently without signs of systemic toxicity, overall well-appearing, nontoxic and afebrile. No respiratory distress. Differential Diagnosis Differential Diagnoses: The differential diagnosis associated with the presentation includes (See narrative above) Admission/Observation Consideration of admission/observation: Escalation of care including admission/observation considered (See narrative above) Lab Data [facility] Lab Attestation statement: I reviewed the patient's lab results. 02/14/25 13:28 02/14/25 13:27 Labs: Lab Results 02/14/25 02/14/25 02/14/25 Range/Units 13:27 13:28 14:19 WBC 5.6 (4.8-10.8) X10*3/uL RBC 3.42 L (4.20-5.50) X10*6/uL Hgb 9.8 L (12.0-16.0) g/dl Hct 30.3 L (37.0-47.0) % MCV 88.6 (80.0-98.0) fL MCH 28.7 (27.0-33.0) pg MCHC 32.3 (31.0-35.0) g/dl RDW 14.0 (11.0-16.0) % Plt Count 153 L D (160-400) X10*3/uL MPV 10.0 (9.4-12.3) fL Immature Gran % (Auto) 0.7 H (0.0-0.4) % Neut % (Auto) 53.7 (45-73) % Lymph % (Auto) 30.3 (20-40) % [place] % (Auto) 10.7 (2-11) % Eos % (Auto) 4.1 H (0-4) % Baso % (Auto) 0.5 (0-2) % Lymph # (Auto) 1.7 (1.2-4.9) X10*3/uL [place] # (Auto) 0.6 (0.1-1.2) X10*3/uL Eos # (Auto) 0.2 (0.0-0.4) X10*3/uL Baso # (Auto) 0.0 (0.0-0.2) X10*3/uL Abs Immat Gran (auto) 0.04 H (0.00-0.03) X10*3/uL Absolute Neuts (auto) 3.0 (2.0-8.3) x10*3/uL Absolute Nucleated RBC 0.000 (0.0-0.012) X10*3/uL Nucleated RBC % (auto) 0.0 (0.0-0.2) /100WBC Smear Tech's Comments VERIFIED Sodium 143 (135-145) mmol/L Potassium 3.9 (3.3-5.1) mmol/L Chloride 109 H (96-108) mmol/L Carbon Dioxide 27 (22-29) mmol/L Anion Gap 11 L (12-20) BUN 32 H (9-16) mg/dL Creatinine 0.81 (0.5-1.4) mg/dL Estim Creat Clear Calc 57.0 Estimated GFR > 60 Random Glucose 90 (60-115) mg/dL Calcium 8.6 (8.4-10.2) mg/dL Total Bilirubin 0.2 (0.0-1.0) mg/dL AST 54 H (5-31) U/L ALT 31 (0-31) U/L Alkaline Phosphatase 102 (39-117) U/L B-Natriuretic Peptide 32 (<100) pg/mL Total Protein 6.5 (6.5-8.0) g/dL Albumin 3.4 L (3.5-5.0) g/dL Urine Color Yellow Urine Appearance Clear Urine pH 6.5 (5.0-9.0) Ur Specific [place] 1.020 (1.005-1.025) Urine Protein 100 (2+) H (Neg-Trace) mg/dL Urine Glucose (UA) Negative (Negative) mg/dL Urine Ketones Negative (Negative) mg/dL Urine Blood Negative (Negative) Urine Nitrite Negative (Negative) Ur Leukocyte Esterase Small (1+) H (Negative) Urine RBC 0-2 (0-2) /HPF Urine WBC 0-5 (0-5) /HPF Ur Squamous Epith Cells 6-10 (0-2) /HPF Urine Bacteria Trace (None Seen) Hyaline Casts 0-2 (0-2) /LPF Independent Historian Clinical information obtained from an independent historian. History obtained from or confirmed by: EMS and Other ( longterm staff) External Record Review External record reviewed: Outpatient record Chronic Conditions Patient?s care impacted by: Other ( see narrative above) Discharge Plan Discharge Clinical Impression: Head injury, acute, without loss of consciousness, Urinary tract infection Patient Disposition: Home, Self-Care Instructions: Head Injury (ED), Urinary Tract Infection in Older Adults (ED) Additional Instructions: no acute injury noted from fall today. findings are concerning for an early urinary tract infection especially given the reported urinary frequency at night. Cefuroxime 250 mg to be taken by mouth twice daily for 5 days. Follow-up with primary care provider. Return to emergency department any new or worsening symptoms or concerns Prescriptions: New cefuroxime axetil 250 mg tablet 250 mg PO BID Qty: 10 0RF No Action Order for straight catherization for urine collection See Rx Instructions .ROUTE .COMPLEX Qty: 1 0RF Rx Instructions: as needed for altered behavior, abnormal urine Icy Hot Pain Relieving 2.5 % gel 1 appl topical BID Qty: 70.8 3RF Rx Instructions: Small amount topically twice daily to back and shoulder Icy Hot 30-10 % cream See Rx Instructions .ROUTE .COMPLEX PRN (Reason: for pain) Qty: 85 1RF Rx Instructions: PRN; Apply a small amount topically 2 time daily as needed for back or foot pain methenamine hippurate 1 gram tablet 1 g PO BID Qty: 180 3RF Balmex (petrolatum) 51.1 % ointment 1 appl topical TID PRN (Reason: dry skin) Qty: 99 3RF Rx Instructions: Apply 3 times daily as needed to groin and buttocks for rash/dry skin nystatin 100,000 unit/gram Powder 1 appl TOPICAL BID PRN (Reason: Rash) Rx Instructions: rash in skin folds triamcinolone acetonide 0.1 % ointment 1 appl topical BID PRN (Reason: Skin Irritation) Rx Instructions: apply to the lower abdomen, groin, and Buttocks ( Once started apply 2 weeks on and 1 week off) betamethasone dipropionate 0.05 % ointment 1 appl topical BID PRN (Reason: Dry areas on hand) Rx Instructions: Once started, Apply 2 weeks on and 1 week off. ascorbic acid (vitamin C) [Vitamin C] 500 mg tablet 500 mg PO BID Balmex Adult Care 11.3 % Cream 1 appl TOPICAL BID Rx Instructions: apply to rash, groin, and buttocks donepezil 5 mg Tablet 5 mg PO BEDTIME Qty: 30 0RF carbamazepine 200 mg Tablet 400 mg PO BEDTIME Qty: 60 0RF quetiapine 50 mg Tablet 50 mg PO TID Qty: 90 0RF trazodone 100 mg tablet 100 mg PO BEDTIME Qty: 30 0RF melatonin 10 mg Tablet 10 mg PO BEDTIME furosemide 40 mg tablet 40 mg PO DAILY 3 Days Qty: 3 0RF multivitamin Tablet 1 tab PO DAILY Qty: 90 3RF loratadine 10 mg tablet 10 mg PO DAILY Qty: 90 3RF aspirin 81 mg tablet,delayed release (DR/EC) 81 mg PO DAILY Qty: 90 3RF ferrous sulfate [FeroSul] 325 mg (65 mg iron) tablet See Rx Instructions .ROUTE .COMPLEX Qty: 36 3RF Rx Instructions: 325 mg oral once daily on Mon, Wed, Fri docusate sodium 100 mg capsule 100 mg PO BID Qty: 180 3RF Rx Instructions: hold for diarrhea. if held for 4 consecutive doses contact PCP sennosides [Senna Lax] 8.6 mg tablet 8.6 mg PO Q48H Qty: 45 3RF Rx Instructions: hold for diarrhea. call md if hold for 2 consecutive doses tamsulosin 0.4 mg capsule 0.4 mg PO Q24H Qty: 90 3RF Rx Instructions: in am levothyroxine 200 mcg tablet 200 mcg PO DAILY Qty: 90 3RF acetaminophen 500 mg tablet 500 mg PO Q6H PRN (Reason: fever or pain) Qty: 100 3RF Rx Instructions: call pcp if fever > 48 hours ibuprofen 400 mg tablet 400 mg PO Q6H PRN (Reason: Pain) Qty: 100 3RF Rx Instructions: if symptoms not resolved in 48 hours contact pcp quetiapine 100 mg tablet 100 mg PO BID Gemtesa 75 mg tablet 75 mg PO DAILY triamcinolone acetonide 0.1 % cream 1 appl topical BID fluticasone propionate [Allergy Relief (fluticasone)] 50 mcg/actuation spray,suspension 1 spray intranasal BID PRN (Reason: nasal congestion) Qty: 16 0RF Rx Instructions: administer into each nostril Referrals: Physician,Unknown J [Primary Care Provider] - Discharge Date/Time: 02/14/25 16:16 Print Language: French
--- NOTE | 2025-02-14 12:51 | ECG_ITS ---
Test Reason : fall Blood Pressure : */* mmHG Vent. Rate : 57 BPM Atrial Rate : 57 BPM P-R Int : 222 ms QRS Dur : 158 ms QT Int : 484 ms P-R-T Axes : 67 -56 43 degrees QTcB Int : 471 ms Sinus bradycardia with 1st degree A-V block Right bundle branch block Left anterior fascicular block Bifascicular block Minimal voltage criteria for LVH, may be normal variant ( R in aVL ) Abnormal ECG When compared with ECG of 11-Sep-2024 17:21, Left anterior fascicular block is now Present Left posterior fascicular block is no longer Present Referred By: Janelle Sargent Electronically Signed By: OSCAR OROZCO MD
--- OUTSIDE RECORDS SUMMARY | 2025-02-14 13:03 | XMS_ITS | Clinical Summary ---
Author Organization [facility] Address [address] [place] [address] Care Team Providers Care Ceramic Coater Machine Name Role Phone Sher Patrick Primary Care Provider [phone] Allergies Active Allergy Reactions Criticality Noted Date [...] 8:48:00 EST, Dry Weight 4 Active INV [id number] triamcinolone acetoniden 0.1% topical ointment Apply topically [...] 0.6 oz pur e alcohol) [facility] Utilities Answer Date Recorded In the [...] Description 05/09/2025 2:00 PM EDT Hospital Encounter [facility] Operating [address] [place] [address] Catracho Vidal MD MPH [address] [place] [address] 05/12/2025 2:00 PM EDT - 05/12/2025 3:05 PM EDT Surgery [facility] Operating [address] [place] [address] Catracho Vidal MD MPH [address] [place], [place] [id number] Colonoscopy Screening, High Risk with Possible Moderate Sedation [98072 (CPT??)] Scheduled Procedures Name Priority Associated Diagnoses [...] - Tdap) 08/18/2015 08/17/2015 COVID-19 Vaccine ( - season) 2024 04/18/2024, [...] complete this topic Procedures * Due to [facility] law, this organization might not be sharing negative HIV tests. Procedure Name Priority Date/Time Associated Diagnosis Comments BASIC METABOLIC PANEL Routine 11/03/2024 12:56 AM EST COLONOSCOPY 08/05/2020 from Last 3 Months or Most Recently Relevant to Health Maintenance Results * Due to [place] [employer] law, this organization might not be sharing negative HIV tests. * Basic Metabolic Panel (11/03/2024 12:56 AM EST) NA 138 135 - 145 mmol/L 11/03/2024 2:02 AM [facility] K 3.9 3.5 - 5.3 mmol/L 11/03/2024 2:02 AM [facility] Cl 104 98 - 107 mmol/L 11/03/2024 2:02 AM [facility] CO2 24 22 - 32 mmol/L 11/03/2024 2:02 AM [facility] BUN 13 7 - 23 mg/dL 11/03/2024 2:02 AM [facility] Creatinine 0.70 0.50 - 1.20 mg/dL 11/03/2024 2:02 AM [facility] Glucose 94 65 - 99 mg/dL 11/03/2024 2:02 AM [facility] Calcium 8.7 8.6 - 10.5 mg/dL 11/03/2024 2:02 AM [facility] Anion Gap 10 5 - 15 11/03/2024 2:02 AM [facility] eGFR >90 >=60 mL/min/1. 73m2 11/03/2024 2:02 AM [facility] Comment:The estimated glomer [...] Vidal MD MPH LAB BLOOD ORDERABLES Final [facility] Organization Address City/State/ZIP Co de Phone Number [facility] [address] [place] [address], [place] * COLONOSCOPY (08/05/2020) Narrative Procedure Note Catracho Vidal MD MPH - 08/05/2020 7:31 AM EST Gastroenterology Patient Name: Kirsten Ronquillo Procedure Date: 08/05/2020 7:31 AM Date of : 1955 Admit Type: Inpatient Age: 64 Room: [place] [address] Gender: Female Note Status: Finalized Attending MD: [...] and oxygen saturations were monitored continuously. 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
--- OUTSIDE RECORDS SUMMARY | 2025-02-14 13:03 | XMS_ITS | Clinical Summary ---
Author Organization [facility] Address [address] [place] [address] Phone Care Team Providers Care Paralegal Instructor Name Role Phone Sher Patrick MD Primary Care Provider [phone] Allergies Active Allergy Reactions Criticality Noted Date [...] topic Insurance Medicare Medicaid [place] Care Teams Paralegal Instructor Relationship Specialty Start Date End Date Sher Patrick MD [address] [place] [address] DR[id number] [place] PCP - General Internal Medicine 09/17/24
--- OUTSIDE RECORDS SUMMARY | 2025-02-14 13:03 | XMS_ITS | Encounter Summary ---
Author Organization [facility] Address [address] [place] [address] Care Team Providers Care Librarian Special Library Name Role Phone Sher Patrick Primary Care Provider [phone] Reason for Visit * Reason Onset Date Comments Needs to reschedule 09/28/2020 Encounter Details Date Type Department Care Team (Late st Contact Info) Description 09/28/2020 Telephone [facility] Central Scheduling Department [address] [place] [address] Telephone Intake, Staff Needs to reschedule Social [...] Description 05/09/2025 2:00 PM EDT Hospital Encounter [facility] Operating Room [address] [place] [address] Catracho Vidal MD MPH [address] [place] [address] 05/12/2025 2:00 PM EDT - 05/12/2025 3:05 PM EDT Surgery [facility] Operating [address] [place] [address] Catracho Vidal MD MPH [address] [place] [address] Colonoscopy Screening, High Risk with Possible Moderate Sedation [12995 (CPT??)] Scheduled Procedures Name Priority Associated Diagnoses [...] documented as of this encounter Care Teams Librarian Special Library Relationship Specialty Start Date End Date Sher Patrick [address] [place] [address] [place] [address] PCP - General 04/20/17 documented as of this encounter
--- OUTSIDE RECORDS SUMMARY | 2025-02-14 13:03 | XMS_ITS | Referral Summary ---
Author Organization [facility] Address [address] [place] [address] Care Team Providers Care Truck Hop Name Role Phone Sher Patrick Primary Care Provider [phone] Allergies Active Allergy Reactions Criticality Noted Date [...] 8:48:00 EST, Dry Weight 4 Active INV [id number] triamcinolone acetoniden 0.1% topical ointment Apply topically [...] 0.6 oz pur e alcohol) [facility] Utilities Answer Date Recorded In [...] Description 05/09/2025 2:00 PM EDT Hospital Encounter [facility] Operating Room [address] [place] [address] Catracho Vidal MD MPH [address] [place] [address] 05/12/2025 2:00 PM EDT - 05/12/2025 3:05 PM EDT Surgery [facility] Operating Room [address] [place] [address] Catracho Vidal MD MPH [address] [place] [address] Colonoscopy Screening, High Risk with Possible Moderate Sedation [16249 (CPT??)] Scheduled Procedures Name Priority Associated Diagnoses Date/Ti me COLONOSCOPY SCREENING, HIGH RISK WITH POSSIBLE MODERATE SEDATION Colorectal cancer (HCC) 05/12/2025 2:00 PM EDT Procedures * Due to [facility] law, this organization might not be sharing negative HIV tests. Procedure Name Priority Date/Time Associated Diagnosis Comments BASIC METABOLIC PANEL Routine 11/03/2024 12:56 AM EST COLONOSCOPY 08/05/2020 from Last 3 Months or Most Recently Relevant to Health Maintenance Results * Due to [facility] law, this organization might not be sharing negative HIV tests. * Basic Metabolic Panel (11/03/2024 12:56 AM EST) NA 138 135 - 145 mmol/L 11/03/2024 2:02 AM EST [facility] K 3.9 3.5 - 5.3 mmol/L 11/03/2024 2:02 AM EST [facility] Cl 104 98 - 107 mmol/L 11/03/2024 2:02 AM EST [facility] CO2 24 22 - 32 mmol/L 11/03/2024 2:02 AM EST [facility] BUN 13 7 - 23 mg/dL 11/03/2024 2:02 AM EST [facility] Creatinine 0.70 0.50 - 1.20 mg/dL 11/03/2024 2:02 AM EST [facility] Glucose 94 65 - 99 mg/dL 11/03/2024 2:02 AM EST [facility] Calcium 8.7 8.6 - 10.5 mg/dL 11/03/2024 2:02 AM EST [facility] Anion Gap 10 5 - 15 11/03/2024 2:02 AM EST [facility] eGFR >90 >=60 mL/min/1. 73m2 11/03/2024 2:02 AM EST [facility] Comment:The estimated glomer [...] MPH LAB BLOOD ORDERABLES Final Re sult [facility] [address] [place] [address], * COLONOSCOPY (08/05/2020) Narrative Procedure Note Catracho Vidal MD MPH - 08/05/2020 7:31 AM EST Gastroenterology Patient Name: Kirsten Ronquillo Procedure Date: 08/05/2020 7:31 AM Date of : 1955 Admit Type: Inpatient Age: 64 Room: [place] [address] Gender: Female Note Status: Finalized Attending MD: [...] and oxygen saturations were monitored continuously. The [id number] was introduced through the anus and advanced [...] s ESBL Comment:ESBL E.coli 08/03/2020 08/03/2020 Insurance [facility] MEDIC[facility] Advance Directives Documents on File Type Date Recorded Patient Web Portal Developer Expl anation Advance Directive 07/05/2013 12:00 AM HCP Advance Directive 07/02/2013 12:00 AM kate Ramehs edical Dec Making (Adv.Dir) * Full Code [...] Thompson Friend Health Care Agent Care Teams Truck Hop Relationship Specialty Start Date End Date Croke, Sher [address] [place] [address] dr Jose Garcia, IDRIS [address] PCP - General 04/20/17
[2025-02-14 13:42] LABS: Basophils Percent Auto 0.5 % (0-2); Eosinophils Absolute Auto 0.2 X10*3/uL (0.0-0.4); Eosinophils Percent Auto 4.1 % (0-4); Hematocrit 30.3 % (37.0-47.0); Hemoglobin 9.8 g/dl (12.0-16.0); Imm Gran Abs Auto 0.04 X10*3/uL (0.00-0.03); Imm Gran Pct Auto 0.7 % (0.0-0.4); Lymphocytes Absolute Auto 1.7 X10*3/uL (1.2-4.9); Lymphocytes Percent Auto 30.3 % (20-40); MANUAL DIFF FLAG SCAN; Mean Corpuscular HGB Conc 32.3 g/dl (31.0-35.0); Mean Corpuscular Hemoglobin 28.7 pg (27.0-33.0); Mean Corpuscular Volume 88.6 fL (80.0-98.0); Monocytes Absolute Auto 0.6 X10*3/uL (0.1-1.2); Monocytes Percent Auto 10.7 % (2-11); Neutrophils Percent Auto 53.7 % (45-73); PLT CLUMP 1; Red Blood Count 3.42 X10*6/uL (4.20-5.50); SCAN SMEAR FLAG 1
[2025-02-14 13:52] LABS: White Blood Count 5.6 X10*3/uL (4.8-10.8)
[2025-02-14 13:58] LABS: Alanine Aminotransferase 31 U/L (0-31); Albumin Level 3.4 g/dL (3.5-5.0); Alkaline Phosphatase 102 U/L (39-117); Anion Gap 11 (12-20); Aspartate Amino Transferase 54 U/L (5-31); Bilirubin Total 0.2 mg/dL (0.0-1.0); Blood Urea Nitrogen 32 mg/dL (9-16); Calcium 8.6 mg/dL (8.4-10.2); Carbon Dioxide 27 mmol/L (22-29); Chloride 109 mmol/L (96-108); Estimated Glomerular Filt Rate > 60; Glucose Random 90 mg/dL (60-115); Potassium 3.9 mmol/L (3.3-5.1); Sodium 143 mmol/L (135-145); Total Protein 6.5 g/dL (6.5-8.0)
[2025-02-14 14:04] LABS: B Type Natriuretic Peptide 32 pg/mL (<100)
[2025-02-14 14:06] LABS: Platelet Count 153 X10*3/uL (160-400); SLIDE REVIEW VERIFIED
[2025-02-14 14:33] LABS: Appearance Urine Clear; Color Urine Yellow; Glucose Urine UA Negative (Negative); Leukocyte Esterase Urine Small (1+) (Negative); Nitrite Urine Negative (Negative); PH 6.5 (5.0-9.0); UMIC TRIGGER UACC YES; Urine Blood Negative (Negative); Urine Ketones Negative (Negative); Urine Protein 100 (2+) mg/dL (Neg-Trace)
[2025-02-14 14:43] LABS: Bacteria Urine Trace (None Seen); Hyaline Casts Urine 0-2 /LPF (0-2); RBC Urine 0-2 /HPF (0-2); UACC Culture Trigger YES; WBC Urine 0-5 /HPF (0-5)
[2025-02-14] MEDS: cefuroxime axetiL 250 MG TABLET PO (15:56)
== END 2025-02-14 16:16 | disposition home or self-care (01) ==
PROVIDERS: Nurse Practitioner Family; Emergency Provider Emergency Medicine Emergency Medical Services
DX: S09.90XA Unspecified injury of head, initial encounter (principal); R06.02 Shortness of breath; R51.9 Headache, unspecified; M54.2 Cervicalgia; R00.1 Bradycardia, unspecified; I45.10 Unspecified right bundle-branch block; X58.XXXA Exposure to other specified factors, initial encounter; W05.0XXA Fall from non-moving wheelchair, initial encounter; Y93.9 Activity, unspecified; Y92.9 Unspecified place or not applicable; Y99.8 Other external cause status; Z79.899 Other long term (current) drug therapy
CPT/HCPCS: 36415; 70450; 72125; 80053; 81001; 83880; 85025; 87086; 93005; 99283; 99284

== ENCOUNTER → 2025-02-14 12:11 | Outpatient (BNV) | payer MEDICARE, MEDICAID, SELFPAY | PROVIDERS: Emergency Provider Emergency Medicine Emergency Medical Services; Visit Provider Radiology Diagnostic Radiology | DX: M47.812 Spondylosis without myelopathy or radiculopathy, cervical region (principal); R22.0 Localized swelling, mass and lump, head | CPT/HCPCS: 70450; 72125 ==

== ENCOUNTER → 2025-02-14 12:51 | Outpatient (BNV) | payer MEDICARE, MEDICAID, SELFPAY | PROVIDERS: Emergency Provider Emergency Medicine Emergency Medical Services; Visit Provider Internal Medicine Cardiovascular Disease | DX: I45.2 Bifascicular block (principal); I44.0 Atrioventricular block, first degree | CPT/HCPCS: 93010 ==

== ENCOUNTER 2025-02-21 12:39 | Outpatient (AMB) | payer MEDICARE, MEDICAID, SELFPAY ==
--- OUTSIDE RECORDS SUMMARY | 2025-02-21 12:41 | XMS_ITS | Encounter Summary ---
Author Organization [facility] Address [address] [place] [address] Care Team Providers Care Eyedotter Name Role Phone Sher Patrick Primary Care Provider [phone] Reason for Visit * Reason Onset Date Comments Needs to reschedule 09/28/2020 Encounter Details Date Type Department Care Team (Late st Contact Info) Description 09/28/2020 Telephone [facility] Central Scheduling Department [address] [place] [address] Telephone Intake, Staff Needs to reschedule Social [...] Description 05/09/2025 2:00 PM EDT Hospital Encounter [facility] Operating Room [address] [place] [address] Catracho Vidal MD MPH [address] [place] [address] 05/12/2025 2:00 PM EDT - 05/12/2025 3:05 PM EDT Surgery [facility] Operating Room [address] [place] [address] Catracho Vidal MD MPH [address] [place] [address] Colonoscopy Screening, High Risk with Possible Moderate Sedation [93000 (CPT??)] Scheduled Procedures Name Priority Associated Diagnoses [...] documented as of this encounter Care Teams Eyedotter Relationship Specialty Start Date End Date Sher Patrick [address] [place] [address] [place] [address] PCP - General 04/20/17 documented as of this encounter
--- NOTE | 2025-02-21 13:01 | A.OFFPC_ITS ---
Vital Signs 02/21/25 13:09 Height 5 ft 2 in BP 138/82 Pulse 68 Pulse Source Pulse Oximeter Temp 98.6 F Temp Source Temporal Artery Scan Pulse Oximetry (%) 98 Oxygen Delivery Method Room Air Intake Visit Reasons: [facility] Computer Hardware Technician Required: No Accompanied by: Handicapped Dependent Allergies adhesive tape Allergy (Intermediate, Verified 02/21/25 13:05) itching and skin redness latex Allergy (Intermediate, Verified 02/21/25 13:05) skin rash and itching Seasonal Allergies Allergy (Verified 02/21/25 13:05) Itching weed pollen Allergy (Verified 02/21/25 13:05) stuffy nose DUST Allergy (Unknown, Uncoded 02/21/25 13:05) ITCHY/WATERY EYES surgical paper tape Allergy (Unknown, Uncoded 02/21/25 13:05) rash Tide Allergy (Unknown, Uncoded 02/21/25 13:05) rash Tobacco use date assessed: 01/31/25 Dental Screening Dental Screen Date: 01/31/25 HPI HPI Comments History of Present Illness Details 69-year-old female with history of demen tia presents to the office today accompanied by correction staff for posterior evaluation. On 02/14, the patient had fallen asleep in her wheelchair and slid out of the chair which was unwitnessed. There was question of whether or not head strike did occur but there was no loss of consciousness. In the ED, labs were unremarkable. Urine culture ultimately negative. 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 No osseous abnormality or hemorrhage. Staff member reports that for the last few weeks, the patient has been intermittently agitated, banging on things and not using her wheelchair making her a fall risk. She does this during the day as well as at night and is not sleeping at night. Therefore at multiple times during the day, she does fall asleep. She has been yelling. There has been no physical violence toward staff. Urine cultures have been negative since 01/10. penitentiary RN also has concerns about edema whether this be related to cardiac etiology versus venous insufficiency. She has been given small quantities of Lasix to take for lower extremity edema. There is no shortness of breath, orthopnea, durbin. No significant weight gain. ROS Unable to obtain due to mental status Exam Constitutional - Awake and Alert, initally agitated and yelling, then fell asleep in the chair Eyes - PERRL Cardiovascular - deferred given somnolence and plan to transfer to ED, 1+ ble edema Respiratory - deferred given somnolence and plan to transfer to ED Extremities - no calf tenderness bilaterally Skin - Warm/Dry. Stasis dermatitis Neurological - Alert & oriented x3 Psychological - Appropriate affect [facility] Medical History Abnormal MRI Post-surgical hypothyroidism History of ESBL E. coli infection Toxic multinodular goiter Vitamin D deficiency Hyperthyroidism Colon cancer Lung mass Developmental delay, mild Arthritis Surgical History History of carpal tunnel surgery of right wrist Hx of total thyroidectomy History of biopsy Hx of colonic polyps Hx of colonoscopy Family History Father No problems noted. Mother Medical history unknown Social History Household Members: Caregiver Household Members Other:: gr home Housing: Other Housing Other:: correction Unable to assess alcohol history related to: Unknown Alcohol intake: never Patient Tobacco Use Status: Never used Tobacco e-Cigarette/Vaping Use: Never Used Second Hand Smoke Exposure: No Advance Directives Date on File: 01/05/21 service: No Current occupational status: disabled Current occupation: right handed Cognitive needs: Yes (walker) Hearing needs: No Vision needs: Yes (rx glasses) Questionnaire Thrive Questionnaire Date Thrive assessed: 01/31/25 MARISSA-7 AMB Questionnaire MARISSA-7 Date MARISSA - 7 assessed: 01/31/25 Source: Developed by Drs. Harvinder Segura, Nadine Baumann, Vitaly Hernandez and colleagues, with an educational lian from [employer]. Physical exam (Primary Care) Vital Signs: Last Vital Signs Temp 98.6 F 02/21/25 13:09 Pulse 68 02/21/25 13:09 BP 138/82 02/21/25 13:09 Pulse Ox 98 02/21/25 13:09 Oxygen Delivery Method Room Air 02/21/25 13:09 Tobacco/Smoking Status: Tobacco use Status Tobacco use date assessed 01/31/25 02/21/25 13:04 Patient Tobacco Use Status Never used Tobacco 02/21/25 13:04 e-Cigarette/Vaping Use Never Used 02/21/25 13:04 Thrive Assessment: Date of Thrive Assessment Date Thrive assessed 01/31/25 02/21/25 13:04 Coding Level of Care Code Est Pt Level 4 (38024) Complex EM visit Add On G2211 Diagnoses Agitation R45.1 Dementia F03.90 Fall from wheelchair W05.0XXA Assessment & Plan Assessment & Plan (1) Agitation: Code(s): R45.1 - Restlessness and agitation Category: Medical Plan: Etiology unclear- ?metabolic encephalopathy due to infection vs decompensated dementia. [place] x 3 weeks and worsening. Has had 2 urine cultures since that have been negative though did complete empiric therapy prior to final culture results. At this time, there is no definitive cause of patient's mental status changes. Recommend she be evaluated at the ER for comprehensive medical work up and possible psychiatric work up. (2) Dementia: Code(s): F03.90 - Unspecified dementia, unspecified severity, without behavioral disturbance, psychotic disturbance, mood disturbance, and anxiety Category: Medical Plan: See above. Possibly progressing. Continue following with behavioral health. Continue medications as prescribed. (3) Fall from wheelchair: Code(s): W05.0XXA - Fall from non-moving wheelchair, initial encounter Category: Medical Plan: ED notes reviewed including provider note, head ct and labs. No injury sustained and no findings to explain change in mental status. Plan Presesnt to ED
[2025-02-21 13:09] VITALS: BP 138/82; PULSE 68; TEMP 37; O2SAT 98
== END 2025-02-21 14:03 | disposition home or self-care (01) ==
LOC: HO.HMCHD 12:39
PROVIDERS: Visit Provider Physician Assistant
DX: R45.1 Restlessness and agitation (principal); F03.90 Unspecified dementia, unspecified severity, without behavioral disturbance, psychotic disturbance, mood disturbance, and anxiety; W05.0XXA Fall from non-moving wheelchair, initial encounter

== ENCOUNTER → 2025-02-21 12:39 | Outpatient (BNVA) | payer MEDICARE, MEDICAID, SELFPAY | PROVIDERS: Visit Provider Physician Assistant | DX: Z13.89 Encounter for screening for other disorder (principal) | CPT/HCPCS: 99212 ==

== ENCOUNTER 2025-02-21 15:08 | Emergency (ER) | payer MEDICARE, MEDICAID, SELFPAY ==
[2025-02-21 15:10] VITALS: BP 135/90; PULSE 76; RESP 18; TEMP 36.8; O2SAT 97; BMI 24.7
[2025-02-21 16:09] LABS: MANUAL DIFF FLAG NO
[2025-02-21 16:11] LABS: Basophils Percent Auto 0.5 % (0-2); Eosinophils Absolute Auto 0.1 X10*3/uL (0.0-0.4); Eosinophils Percent Auto 1.4 % (0-4); Hematocrit 32.3 % (37.0-47.0); Hemoglobin 10.7 g/dl (12.0-16.0); Imm Gran Abs Auto 0.02 X10*3/uL (0.00-0.03); Imm Gran Pct Auto 0.3 % (0.0-0.4); Lymphocytes Percent Auto 27.2 % (20-40); Mean Corpuscular HGB Conc 33.1 g/dl (31.0-35.0); Mean Corpuscular Volume 87.5 fL (80.0-98.0); Mean Platelet Volume 9.1 fL (9.4-12.3); Monocytes Absolute Auto 0.9 X10*3/uL (0.1-1.2); Monocytes Percent Auto 12.4 % (2-11); Neutrophils Absolute Auto 4.3 x10*3/uL (2.0-8.3); Neutrophils Percent Auto 58.2 % (45-73); Platelet Count 263 X10*3/uL (160-400); Red Blood Count 3.69 X10*6/uL (4.20-5.50); Red Cell Distribution Width 13.9 % (11.0-16.0); White Blood Count 7.3 X10*3/uL (4.8-10.8)
[2025-02-21 16:27] LABS: Carbamazepine Tegretol 6.4 mcg/mL (5.0-12.0)
--- NOTE | 2025-02-21 16:45 | ED_ITS ---
HPI - General Adult General Chief complaint: Behavioral Concerns Stated complaint: Behavior Issue Time Seen by Provider: 02/21/25 15:50 Source: patient Mode of arrival: ambulatory Limitations: no limitations History of Present Illness ED Provider: Mari Siddiqi PA-C HPI narrative: Patient is a 69 year old assigned female at with a history of vascular dementia presenting to the emergency department today with increased anxiety and agitation towards prison staff. Patient states that she has no complaints. Patient denies any dizziness, lightheadedness, abdominal pain, nausea, vomiting, fever, chills, blurry vision, double vision, loss of vision, chest pain, difficulty breathing, shortness of breath, back pain, night sweats, pain with urination, increased urinary frequency, increased urinary urgency, blood in her urine or stool, syncope or a near syncopal episode, recent trauma or falls, bowel incontinence, bladder incontinence, or any other complaints at this time. Related Data Home Medications ?Medication ?Instructions ?Recorded ?Confirmed nystatin 100,000 unit/gram topical 1 appl topical BID PRN Rash 01/05/21 02/21/25 powder triamcinolone acetonide 0.1 % 1 appl topical BID PRN Skin 01/24/23 02/21/25 topical ointment Irritation melatonin 10 mg tablet 10 mg PO BEDTIME 05/10/23 02/21/25 ascorbic acid (vitamin C) 500 mg 500 mg PO BID 03/13/24 02/21/25 tablet (Vitamin C) betamethasone dipropionate 0.05 % 1 appl topical BID PRN Dry areas 03/13/24 02/21/25 topical ointment on hand zinc oxide-vitamin B5-vit E 11.3% 1 appl topical BID Rash 03/13/24 02/21/25 topical cream (Balmex [facility]) quetiapine 100 mg tablet 100 mg PO BID 01/31/25 02/21/25 vibegron 75 mg tablet (Gemtesa) 75 mg PO DAILY 01/31/25 02/21/25 carbamazepine 200 mg tablet 200 mg PO DAILY 02/21/25 02/21/25 imipramine HCl 25 mg tablet 25 mg PO BEDTIME 02/21/25 02/21/25 quetiapine 50 mg tablet 50 mg PO DIRECTED 02/21/25 02/21/25 quetiapine 50 mg tablet 50 mg PO BID PRN Agitation 02/21/25 02/21/25 Previous Rx's ?Medication ?Instructions ?Recorded carbamazepine 200 mg tablet 400 mg (2 x 200 mg) PO BEDTIME #60 09/23/24 tabs donepezil 5 mg tablet 5 mg PO BEDTIME #30 tabs 09/23/24 trazodone 100 mg tablet 100 mg PO BEDTIME #30 tabs 09/23/24 acetaminophen 500 mg tablet 500 mg PO Q6H PRN fever or pain 12/19/24 #100 tabs aspirin 81 mg tablet,delayed 81 mg PO DAILY #90 tabs 12/19/24 release docusate sodium 100 mg capsule 100 mg PO BID #180 caps 12/19/24 ferrous sulfate 325 mg (65 mg See Rx Instructions .Route 12/19/24 iron) tablet (FeroSul) .COMPLEX #36 tabs ibuprofen 400 mg tablet 400 mg PO Q6H PRN Pain #100 tabs 12/19/24 levothyroxine 200 mcg tablet 200 mcg PO DAILY #90 tabs 12/19/24 loratadine 10 mg tablet 10 mg PO DAILY #90 tabs 12/19/24 multivitamin 1 tab PO DAILY #90 tabs 12/19/24 sennosides 8.6 mg tablet (Senna 8.6 mg PO Q48H constipation #45 12/19/24 Lax) tabs tamsulosin 0.4 mg capsule 0.4 mg PO Q24H #90 caps 12/19/24 Icy Hot Pain Relieving 2.5 % 1 appl topical BID #70.8 grams 01/13/25 topical gel (menthol) fluticasone propionate 50 1 spray intranasal BID PRN nasal 01/31/25 mcg/actuation nasal congestion #16 grams spray,suspension (Allergy Relief (fluticasone)) methenamine hippurate 1 gram tablet 1 g PO BID #180 tabs 01/31/25 Balmex (petrolatum) 51.1 % topical 1 appl topical TID PRN dry skin 02/05/25 ointment (white petrolatum) #99 grams cefuroxime axetil 250 mg tablet 250 mg PO BID #10 tabs 02/24/25 Allergies Allergy/AdvReac Type Severity Reaction Status Date / Time adhesive tape Allergy Intermediate itching Verified 02/21/25 15:14 and skin redness latex Allergy Intermediate skin rash Verified 02/21/25 15:14 and itching Seasonal Allergies Allergy Itching Verified 02/21/25 15:14 weed pollen Allergy stuffy nose Verified 02/21/25 15:14 DUST Allergy Unknown ITCHY/WATERY Uncoded 02/21/25 15:14 EYES surgical paper tape Allergy Unknown rash Uncoded 02/21/25 15:14 Tide Allergy Unknown rash Uncoded 02/21/25 15:14 Review of Systems 2 Constitutional: Constitutional: Reports no additional constitutional complaints, Denies chills, Denies fever(s) and Denies night sweats Eyes: Eyes: Reports no additional eye complaints, Denies blurry vision, Denies change in vision, Denies diplopia, Denies eye discharge, Denies loss of vision and Denies eye pain ENT: Denies dizziness Cardiovascular: Cardiovascular: Reports no additional cardiovascular complaints, Denies chest pain, Denies lightheadedness, Denies Loss of Consciousness and Denies dyspnea Respiratory: Respiratory: Reports no additional respiratory complaints and Denies dyspnea Gastrointestinal: Gastrointestinal: Reports no additional gastrointestinal complaints, Denies abdominal pain, Denies melena, Denies hematochezia, Denies change in bowel habits and Denies change in stool character Genitourinary: Genitourinary: Denies hematuria, Denies urinary frequency, Denies dysuria, Denies urinary incontinence, Denies urinary hesitancy and Denies urinary urgency Musculoskeletal: Musculoskeletal: Reports no additional musculoskeletal complaints, Denies numbness and Denies tingling Neurologic: Denies dizziness, Denies loss of vision, Denies numbness and Denies tingling Psychiatric: Psychiatric: Reports no additional psychiatric complaints Endocrine: Endocrine: Reports no additional endocrine complaints Hematologic/Lymphatic: Hematologic/Lymphatic: Reports no additional hematologic/lymphatic complaints Allergic/Immunologic: Allergic/Immunologic: Reports no additional allergic/immunologic complaints PMFSH Past Medical History Attestation statement: The following information was validated with the patient. Source: old records reviewed and nursing notes reviewed Medical History (Updated 02/25/25 @ 00:01 by Jamarcus Bee) Developmental delay, moderate Abnormal MRI Post-surgical hypothyroidism History of ESBL E. coli infection Toxic multinodular goiter Vitamin D deficiency Hyperthyroidism Colon cancer Lung mass Developmental delay, mild Arthritis Surgical History History of carpal tunnel surgery of right wrist Hx of total thyroidectomy History of biopsy Hx of colonic polyps Hx of colonoscopy Family History Family History Father No problems noted. 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 Household Members Other:: gr home Housing: Other Housing Other:: prison Unable to assess alcohol history related to: Unknown Alcohol intake: never Patient Tobacco Use Status: Never used Tobacco e-Cigarette/Vaping Use: Never Used Second Hand Smoke Exposure: No Advance Directives Date on File: 01/05/21 service: No Current occupational status: disabled Current occupation: right handed Cognitive needs: Yes (walker) Hearing needs: No Vision needs: Yes (rx glasses) Physical Exam ED Vital Signs: Vital Signs - 24 hr 02/23/25 14:21 02/23/25 15:42 02/23/25 19:38 Temperature 98.1 F 98.2 F Pulse Rate 63 71 94 Respiratory Rate 15 14 19 Blood Pressure 118/52 L 128/58 L 139/64 Pulse Oximetry 99 96 Oxygen Delivery Method Room Air Room Air 02/23/25 23:13 02/24/25 02:49 02/24/25 05:23 Temperature 98.2 F 97.8 F 97.3 F Pulse Rate 77 65 Respiratory Rate 16 16 18 Blood Pressure 121/44 L 109/53 L 125/56 L Pulse Oximetry 96 96 98 Oxygen Delivery Method Room Air Room Air Room Air 02/24/25 06:26 Temperature 98.0 F Pulse Rate 66 Respiratory Rate 20 Blood Pressure 115/71 Pulse Oximetry 99 Oxygen Delivery Method Room Air BMI result Body Mass Index 24.7 Const General: cooperative, no acute distress, alert and awake Nutritional Appearance: well nourished Orientation/consciousness: patient oriented x3 HENMT Head: Yes normal to inspection and Yes atraumatic Ears: hearing grossly normal bilaterally and external ears normal General nose exam: Normal external nose present, no nasal discharge noted and no epistaxis Face and sinus: Yes normal facial exam, No abrasion and No laceration Mouth: Normal oral and palatal mucosa present, no drooling and no muffled voice Eyes General: appearance normal, both eyes and all related structures Periorbital: periorbital findings normal Eyelids: Yes eyelids normal Conjunctivae: conjunctivae normal Pupils: Equal, round and reactive pupils present EOM: EOMs intact bilaterally Neck Neck: Yes normal visual inspection, Yes full ROM and Yes no lymphadenopathy Resp Effort & Inspection: normal respiratory effort and able to speak in complete sentences Neuro General: patient oriented x3, moves all extremities and CN's II-XI intact bilaterally Cranial nerves: Yes Equal, round and reactive pupils present Cognition (Neuro): normal cognition Extrem General: Yes normal to inspection, Yes full ROM and Yes capillary refill normal Psych Appearance: grossly normal Mental Status: mental status grossly normal Affect: Labile affect present Course Course Course Narrative: 02/22/2025 Mari Siddiqi PA-C: Observation continues. Patient evaluated by the psychiatric team who recommended geriatric psychiatric admission when a bed becomes available here at [facility]. LTime: 22:00 Date: 02/22/25 Provider: Erich Carpenter MD Patient physician observation for psychiatric evaluation. Patient became agitated and nursing staff was unable to redirect her. Patient did not require any physical hold but required chemical restraint. She was given Versed 4 mg IM. Continue to monitor the patient. Time: 03:26 Date: 02/23/25 Provider: Erich Carpenter MD Patient in physician observation for psychiatric evaluation. Patient was noted to have an increase temperature at 22:50 hours of 99.3 degrees F. Patient was agitated despite receiving IM Versed. Patient was transferred to the emergency department from the ED Behavioral Health Unit for evaluation of low-grade fever and further management of her agitation.? Patient was awake and alert, she did not appear to be in distress, her speech was loud and rapid. Examination did not reveal any clear source for her elevated temperature. Patient had a urinalysis/microscopic yesterday which revealed no bacteria- culture revealed no growth.I ordered laboratory evaluation to include CBC, CMP, TSH. Patient was given Seroquel 100 mg orally, Benadryl 50 mg orally and lorazepam 2 mg orally for her pressured speech and I agitation. I ordered a laboratory evaluation to include CBC, CMP and TSH with reflex T4. WBC was normal. CMP did reveal elevated AST, ALT and alk-phos of 51, 36 and 122 similar to 02/21/2025. TSH was elevated at 19.15 but T4 was normal suggesting that the patient needs a higher dose of levothyroxine. I do not think that this is the cause for the patient's agitation. I did increase the patient's levothyroxine from 200 mcg to 225 mcg daily. The patient will need a repeat TSH with T4 in 4- 6 weeks. The patient is medically cleared to continue to pursue geriatric psychiatric admission. Reevaluation(s) Reevaluation #1: 02/24/2025 DR. Kelly's progress note: End physician observation at 11:39. As per patient's staff patient is acting at her baseline, no acute psychosis, patient can be discharged back to the prison. Will continue on cefuroxime. Time: 11:39 Medications Administered Discontinued Medications Generic Name Dose Route Start Last Admin Trade Name Freq PRN Reason Stop Dose Admin Acetaminophen 650 mg 02/21/25 18:10 02/24/25 05:25 Acetaminophen 325 Mg Tablet PO 650 mg Q6H PRN Administration fever or pain Ascorbic Acid 500 mg 02/21/25 21:00 02/24/25 08:49 Ascorbic Acid 500 Mg Tablet PO 500 mg BID DANA Administration Aspirin 81 mg 02/22/25 09:00 02/24/25 08:49 Aspirin Enteric Coated 81 Mg Tablet. PO 81 mg DAILY DANA Administration Carbamazepine 400 mg 02/21/25 21:00 02/23/25 20:21 Carbamazepine 200 Mg Tablet PO 400 mg BEDTIME DANA Administration Carbamazepine 200 mg 02/22/25 09:00 02/24/25 08:49 Carbamazepine 200 Mg Tablet PO 200 mg DAILY DANA Administration Cefuroxime Axetil 250 mg 02/23/25 08:10 02/23/25 08:29 Cefuroxime Axetil 250 Mg Tablet PO 02/23/25 08:11 250 mg ONCE ONE Administration Cefuroxime Axetil 250 mg 02/23/25 21:00 02/24/25 08:49 Cefuroxime Axetil 250 Mg Tablet PO 02/28/25 23:59 250 mg BID DANA Administration Diphenhydramine HCl 50 mg 02/23/25 00:10 02/23/25 00:19 Diphenhydramine Hcl 25 Mg Capsule PO 02/23/25 00:11 50 mg ONCE ONE Administration Docusate Sodium 100 mg 02/21/25 21:00 02/24/25 08:49 Docusate Sodium 100 Mg Capsule PO 100 mg BID DANA Administration Donepezil HCl 5 mg 02/21/25 21:00 02/23/25 20:21 Donepezil Hcl 5 Mg Tablet PO 5 mg BEDTIME DANA Administration Ferrous Sulfate 324 mg 02/24/25 09:00 02/24/25 08:51 Ferrous Sulfate 324 Mg Tablet.Dr PO 324 mg MoWeFr DANA Administration Hydroxyzine HCl 50 mg 02/22/25 17:57 02/22/25 18:02 Hydroxyzine Hcl 50 Mg Tablet PO 02/22/25 17:58 50 mg ONCE ONE Administration Ibuprofen 400 mg 02/22/25 17:57 02/22/25 18:02 Ibuprofen 400 Mg Tablet PO 02/22/25 17:58 400 mg ONCE ONE Administration Imipramine HCl 25 mg 02/21/25 21:00 02/23/25 20:19 Imipramine Hcl 50 Mg Tablet PO 25 mg BEDTIME DANA Administration Levothyroxine Sodium 200 mcg 02/22/25 06:00 02/22/25 08:52 Levothyroxine Sodium 200 Mcg Tablet PO 200 mcg DAILY@0600 DANA Administration Levothyroxine Sodium 225 mcg 02/23/25 06:00 02/24/25 05:25 Levothyroxine Sodium 75 Mcg Tablet PO 225 mcg DAILY@0600 DANA Administration Loratadine 10 mg 02/22/25 09:00 02/24/25 08:49 Loratadine 10 Mg Tablet PO 10 mg DAILY DANA Administration Lorazepam 2 mg 02/21/25 16:46 02/21/25 17:03 Lorazepam 1 Mg Tablet PO 02/21/25 16:47 2 mg ONCE ONE Administration Lorazepam 2 mg 02/23/25 00:10 02/23/25 00:19 Lorazepam 1 Mg Tablet PO 02/23/25 00:11 2 mg ONCE STA Administration Lorazepam 0.5 mg 02/23/25 15:48 02/23/25 15:54 Lorazepam 0.5 Mg Tablet PO 02/23/25 15:49 0.5 mg ONCE ONE Administration Melatonin 9 mg 02/21/25 21:00 02/23/25 20:20 Melatonin 3 Mg Tablet PO 9 mg BEDTIME DANA Administration Methenamine Hippurate 1 gm 02/21/25 21:00 02/24/25 08:49 Methenamine Hippurate 1 Gm Tablet PO 1 gm BID DANA Administration Midazolam HCl 4 mg 02/22/25 21:43 02/22/25 22:43 Midazolam Hcl 2 Mg/2 Ml Vial IM 02/22/25 21:44 4 mg ONCE ONE Administration Multivitamins/Vitamin C 1 tab 02/22/25 09:00 02/24/25 08:49 Multivitamin Tablet PO 1 tab DAILY DANA Administration Olanzapine 2.5 mg 02/23/25 15:48 02/23/25 15:54 Olanzapine 2.5 Mg Tablet PO 02/23/25 15:49 2.5 mg ONCE ONE Administration Quetiapine Fumarate 50 mg 02/22/25 16:00 02/23/25 15:34 Quetiapine Fumarate 50 Mg Tablet PO 50 mg DAILY@1600 DANA Administration Quetiapine Fumarate 50 mg 02/21/25 17:59 02/23/25 22:46 Quetiapine Fumarate 50 Mg Tablet PO 50 mg BID PRN Administration Agitation Quetiapine Fumarate 100 mg 02/21/25 21:00 02/24/25 08:49 Quetiapine Fumarate 100 Mg Tablet PO 100 mg BID DANA Administration Quetiapine Fumarate 100 mg 02/23/25 00:10 02/23/25 00:20 Quetiapine Fumarate 100 Mg Tablet PO 02/23/25 00:11 100 mg ONCE ONE Administration Senna 8.6 mg 02/21/25 18:00 02/23/25 19:35 Sennosides 8.6 Mg Tablet PO 8.6 mg Q48H DANA Administration Tamsulosin HCl 0.4 mg 02/22/25 09:00 02/24/25 08:49 Tamsulosin Hcl 0.4 Mg Capsule PO 0.4 mg DAILY DANA Administration Trazodone HCl 100 mg 02/21/25 21:00 02/23/25 20:21 Trazodone Hcl 100 Mg Tablet PO 100 mg BEDTIME DANA Administration Medical Decision Making Medical Decision Making [facility] Narrative: Patient is a 69 year old assigned female at with a history of vascular dementia presenting to the emergency department today with increased anxiety and agitation towards prison staff. Patient's physical exam was as noted in the physical exam portion of this note. Patient's blood work showed mildly elevated LFTs but otherwise unremarkable. I explained my physical exam findings as well as all test results to the patient. I answered all questions asked by the patient. Patient is awaiting evaluation by CARE team. Patient will remain in observation pending CARE team evaluation. Patient's disposition will be determined after CARE team eval. Differential Diagnosis Differential Diagnoses: The differential diagnosis associated with the presentation includes Aggression Anxiety Agitation Admission/Observation Consideration of admission/observation: Escalation of care including admission/observation considered Patient's disposition will be determined after CARE team eval. Lab Data [facility] Lab Attestation statement: I reviewed the patient's lab results. My interpretation of these results are in the [facility] Rationale portion of this note. 02/23/25 00:43 02/23/25 16:36 Labs: Lab Results 02/21/25 02/22/25 02/23/25 Range/Units 15:59 02:45 00:43 WBC 7.3 10.0 (4.8-10.8) X10*3/uL RBC 3.69 L 3.61 L (4.20-5.50) X10*6/uL Hgb 10.7 L 10.5 L (12.0-16.0) g/dl Hct 32.3 L 31.6 L (37.0-47.0) % MCV 87.5 87.5 (80.0-98.0) fL MCH 29.0 29.1 (27.0-33.0) pg MCHC 33.1 33.2 (31.0-35.0) g/dl RDW 13.9 14.2 (11.0-16.0) % Plt Count 263 D 263 (160-400) X10*3/uL MPV 9.1 L 9.1 L (9.4-12.3) fL Immature Gran % (Auto) 0.3 0.4 (0.0-0.4) % Neut % (Auto) 58.2 75.0 H (45-73) % Lymph % (Auto) 27.2 13.7 L (20-40) % [place] % (Auto) 12.4 H 9.7 (2-11) % Eos % (Auto) 1.4 0.9 (0-4) % Baso % (Auto) 0.5 0.3 (0-2) % Lymph # (Auto) 2.0 1.4 (1.2-4.9) X10*3/uL [place] # (Auto) 0.9 1.0 (0.1-1.2) X10*3/uL Eos # (Auto) 0.1 0.1 (0.0-0.4) X10*3/uL Baso # (Auto) 0.0 0.0 (0.0-0.2) X10*3/uL Abs Immat Gran (auto) 0.02 0.04 H (0.00-0.03) X10*3/uL Absolute Neuts (auto) 4.3 7.5 (2.0-8.3) x10*3/uL Absolute Nucleated RBC 0.000 0.000 (0.0-0.012) X10*3/uL Nucleated RBC % (auto) 0.0 0.0 (0.0-0.2) /100WBC VBG pH (7.32-7.43) VBG pCO2 mmHg VBG pO2 mmHg VBG HCO3 (22-26) mmol/L VBG O2 Saturation % VBG Base Excess mmol/L Sodium 142 140 (135-145) mmol/L Potassium 3.8 4.8 D (3.3-5.1) mmol/L Chloride 105 107 (96-108) mmol/L Carbon Dioxide 27 22 (22-29) mmol/L Anion Gap 14 16 (12-20) BUN 39 H 35 H (9-16) mg/dL Creatinine 0.87 1.18 (0.5-1.4) mg/dL Estim Creat Clear Calc 51.8 38.2 Estimated GFR > 60 45 Random Glucose 120 H 115 (60-115) mg/dL Lactic Acid (0.5-2.0) mmol/L Calcium 10.0 D 8.7 D (8.4-10.2) mg/dL Total Bilirubin 0.4 0.2 (0.0-1.0) mg/dL AST 63 H 51 H (5-31) U/L ALT 42 H 36 H (0-31) U/L Alkaline Phosphatase 138 H 122 H (39-117) U/L Total Protein 7.2 7.1 (6.5-8.0) g/dL Albumin 4.1 3.7 (3.5-5.0) g/dL TSH 19.15 H (0.32-4.0) uIU/mL Free T4 0.92 (0.71-1.85) ng/dL Urine Color Yellow Urine Appearance Clear Urine pH 6.5 (5.0-9.0) Ur Specific [place] 1.015 (1.005-1.025) Urine Protein Trace (Neg-Trace) mg/dL Urine Glucose (UA) Negative (Negative) mg/dL Urine Ketones Negative (Negative) mg/dL Urine Blood Negative (Negative) Urine Nitrite Negative (Negative) Ur Leukocyte Esterase Moderate (2+) H (Negative) Urine RBC 0-2 (0-2) /HPF Urine WBC >50 H (0-5) /HPF Ur Squamous Epith Cells 0-2 (0-2) /HPF Urine Bacteria None Seen (None Seen) Hyaline Casts 0-2 (0-2) /LPF Urine Opiates Screen Not Detected (Not Detect) Ur Buprenorphine Scrn Not Detected (Not Detect) ng/mL Ur Oxycodone Screen Not Detected (Not Detect) ng/mL Urine Methadone Screen Not Detected (Not Detect) ng/mL Urine Fentanyl Screen Not Detected (Not Detect) Ur Barbiturates Screen Not Detected (Not Detect) Carbamazepine 6.4 (5.0-12.0) mcg/mL Ur Phencyclidine Scrn Not Detected (Not Detect) Ur Amphetamines Screen Not Detected (Not Detect) U Benzodiazepines Scrn Not Detected (Not Detect) Urine Cocaine Screen Not Detected (Not Detect) U Marijuana (THC) Screen Not Detected (Not Detect) Ethyl Alcohol < 10 mg/dL Influenza Type A (PCR) NEGATIVE (Negative) Influenza Type B (PCR) NEGATIVE (Negative) RSV RNA Qual (PCR) NEGATIVE (Negative) SARS-CoV-2 RNA (RT-PCR) NEGATIVE (Negative) 02/23/25 02/23/25 Range/Units 16:36 16:41 WBC (4.8-10.8) X10*3/uL RBC (4.20-5.50) X10*6/uL Hgb (12.0-16.0) g/dl Hct (37.0-47.0) % MCV (80.0-98.0) fL MCH (27.0-33.0) pg MCHC (31.0-35.0) g/dl RDW (11.0-16.0) % Plt Count (160-400) X10*3/uL MPV (9.4-12.3) fL Immature Gran % (Auto) (0.0-0.4) % Neut % (Auto) (45-73) % Lymph % (Auto) (20-40) % [place] % (Auto) (2-11) % Eos % (Auto) (0-4) % Baso % (Auto) (0-2) % Lymph # (Auto) (1.2-4.9) X10*3/uL [place] # (Auto) (0.1-1.2) X10*3/uL Eos # (Auto) (0.0-0.4) X10*3/uL Baso # (Auto) (0.0-0.2) X10*3/uL Abs Immat Gran (auto) (0.00-0.03) X10*3/uL Absolute Neuts (auto) (2.0-8.3) x10*3/uL Absolute Nucleated RBC (0.0-0.012) X10*3/uL Nucleated RBC % (auto) (0.0-0.2) /100WBC VBG pH 7.45 H (7.32-7.43) VBG pCO2 41 mmHg VBG pO2 151 mmHg VBG HCO3 28 H (22-26) mmol/L VBG O2 Saturation 99.0 % VBG Base Excess 4.4 mmol/L Sodium 138 (135-145) mmol/L Potassium 4.1 (3.3-5.1) mmol/L Chloride 107 (96-108) mmol/L Carbon Dioxide 26 (22-29) mmol/L Anion Gap 9 L (12-20) BUN 31 H (9-16) mg/dL Creatinine 1.02 (0.5-1.4) mg/dL Estim Creat Clear Calc 44.1 Estimated GFR 54 Random Glucose 105 (60-115) mg/dL Lactic Acid 0.9 (0.5-2.0) mmol/L Calcium 8.3 L (8.4-10.2) mg/dL Total Bilirubin (0.0-1.0) mg/dL AST (5-31) U/L ALT (0-31) U/L Alkaline Phosphatase (39-117) U/L Total Protein (6.5-8.0) g/dL Albumin (3.5-5.0) g/dL TSH (0.32-4.0) uIU/mL Free T4 (0.71-1.85) ng/dL Urine Color Urine Appearance Urine pH (5.0-9.0) Ur Specific [place] (1.005-1.025) Urine Protein (Neg-Trace) mg/dL Urine Glucose (UA) (Negative) mg/dL Urine Ketones (Negative) mg/dL Urine Blood (Negative) Urine Nitrite (Negative) Ur Leukocyte Esterase (Negative) Urine RBC (0-2) /HPF Urine WBC (0-5) /HPF Ur Squamous Epith Cells (0-2) /HPF Urine Bacteria (None Seen) Hyaline Casts (0-2) /LPF Urine Opiates Screen (Not Detect) Ur Buprenorphine Scrn (Not Detect) ng/mL Ur Oxycodone Screen (Not Detect) ng/mL Urine Methadone Screen (Not Detect) ng/mL Urine Fentanyl Screen (Not Detect) Ur Barbiturates Screen (Not Detect) Carbamazepine (5.0-12.0) mcg/mL Ur Phencyclidine Scrn (Not Detect) Ur Amphetamines Screen (Not Detect) U Benzodiazepines Scrn (Not Detect) Urine Cocaine Screen (Not Detect) U Marijuana (THC) Screen (Not Detect) Ethyl Alcohol mg/dL Influenza Type A (PCR) (Negative) Influenza Type B (PCR) (Negative) RSV RNA Qual (PCR) (Negative) SARS-CoV-2 RNA (RT-PCR) (Negative) Discharge Plan Discharge Clinical Impression: Anxiety, Acute UTI Patient Disposition: Xfer [facility] Instructions: Urinary Tract Infection in Women (ED) Prescriptions: New cefuroxime axetil 250 mg tablet 250 mg PO BID Qty: 10 0RF Rx Instructions: Start from 02/24-02/28 twice a day. No Action Icy Hot Pain Relieving 2.5 % gel 1 appl topical BID Qty: 70.8 3RF Rx Instructions: Small amount topically twice daily to back and shoulder methenamine hippurate 1 gram tablet 1 g PO BID Qty: 180 3RF Balmex (petrolatum) 51.1 % ointment 1 appl topical TID PRN (Reason: dry skin) Qty: 99 3RF Rx Instructions: Apply 3 times daily as needed to groin and buttocks for rash/dry skin nystatin 100,000 unit/gram Powder 1 appl TOPICAL BID PRN (Reason: Rash) Rx Instructions: rash in skin folds triamcinolone acetonide 0.1 % ointment 1 appl topical BID PRN (Reason: Skin Irritation) Rx Instructions: apply to the lower abdomen, groin, and Buttocks ( Once started apply 2 weeks on and 1 week off) betamethasone dipropionate 0.05 % ointment 1 appl topical BID PRN (Reason: Dry areas on hand) Rx Instructions: Once started, Apply 2 weeks on and 1 week off. ascorbic acid (vitamin C) [Vitamin C] 500 mg tablet 500 mg PO BID Balmex Adult Care 11.3 % Cream 1 appl TOPICAL BID Rx Instructions: apply to rash, groin, and buttocks donepezil 5 mg Tablet 5 mg PO BEDTIME Qty: 30 0RF carbamazepine 200 mg Tablet 400 mg PO BEDTIME Qty: 60 0RF trazodone 100 mg tablet 100 mg PO BEDTIME Qty: 30 0RF melatonin 10 mg Tablet 10 mg PO BEDTIME quetiapine 50 mg tablet 50 mg PO DIRECTED Rx Instructions: Take 50mg by mouth daily at 4pm quetiapine 50 mg tablet 50 mg PO BID PRN (Reason: Agitation) carbamazepine 200 mg tablet 200 mg PO DAILY imipramine HCl 25 mg tablet 25 mg PO BEDTIME multivitamin Tablet 1 tab PO DAILY Qty: 90 3RF loratadine 10 mg tablet 10 mg PO DAILY Qty: 90 3RF aspirin 81 mg tablet,delayed release (DR/EC) 81 mg PO DAILY Qty: 90 3RF ferrous sulfate [FeroSul] 325 mg (65 mg iron) tablet See Rx Instructions .ROUTE .COMPLEX Qty: 36 3RF Rx Instructions: 325 mg oral once daily on Mon, Wed, Fri docusate sodium 100 mg capsule 100 mg PO BID Qty: 180 3RF Rx Instructions: hold for diarrhea. if held for 4 consecutive doses contact PCP sennosides [Senna Lax] 8.6 mg tablet 8.6 mg PO Q48H Qty: 45 3RF Rx Instructions: hold for diarrhea. call md if hold for 2 consecutive doses tamsulosin 0.4 mg capsule 0.4 mg PO Q24H Qty: 90 3RF Rx Instructions: in am levothyroxine 200 mcg tablet 200 mcg PO DAILY Qty: 90 3RF acetaminophen 500 mg tablet 500 mg PO Q6H PRN (Reason: fever or pain) Qty: 100 3RF Rx Instructions: call pcp if fever > 48 hours ibuprofen 400 mg tablet 400 mg PO Q6H PRN (Reason: Pain) Qty: 100 3RF Rx Instructions: if symptoms not resolved in 48 hours contact pcp quetiapine 100 mg tablet 100 mg PO BID Gemtesa 75 mg tablet 75 mg PO DAILY fluticasone propionate [Allergy Relief (fluticasone)] 50 mcg/actuation spray,suspension 1 spray intranasal BID PRN (Reason: nasal congestion) Qty: 16 0RF Rx Instructions: administer into each nostril Interventions: ED Discharge Assessment Last Done: 02/24/25 12:14 Discharge Date/Time: 02/24/25 12:38 Print Language: Unable To Collect
--- NOTE | 2025-02-21 16:47 | PC.NURSE ---
Patient comes to the pod, brought in by nursing home employee due to patient being off her baseline. pt presents with rambling speech, sometimes sensible other-times tangential and non-sensible. Pt continues to ramble on during change coordinator process, while walking to common area and while watching TV. Pt provided with cards and coloring pages. Per nursing home employee, pt typically is quiet and reserved and likes to sit at the table and play cards. He reports she started rambling and became agitated today Attempted to collect urine sample on patient, pt is incontinent at baseline, hat placed in toilet, attempted to have patient void, patient unable to at this time, pt provided with fluids
[2025-02-21 16:52] LABS: Alanine Aminotransferase 42 U/L (0-31); Albumin Level 4.1 g/dL (3.5-5.0); Alkaline Phosphatase 138 U/L (39-117); Anion Gap 14 (12-20); Aspartate Amino Transferase 63 U/L (5-31); Bilirubin Total 0.4 mg/dL (0.0-1.0); Blood Urea Nitrogen 39 mg/dL (9-16); Carbon Dioxide 27 mmol/L (22-29); Chloride 105 mmol/L (96-108); Creatinine Clr Calc Pharmacy 51.8; Estimated Glomerular Filt Rate > 60; Ethanol < 10 mg/dL; Glucose Random 120 mg/dL (60-115); Potassium 3.8 mmol/L (3.3-5.1); Sodium 142 mmol/L (135-145); Total Protein 7.2 g/dL (6.5-8.0)
[2025-02-21 16:59] VITALS: BP 142/79; PULSE 68; RESP 20; TEMP 37.2; O2SAT 94
[2025-02-21] MEDS: LORazepam 1 MG TABLET 2 MG PO (17:03)
--- NOTE | 2025-02-21 17:57 | PC.NURSE ---
Pt calming down after dose of Ativan, pt began falling asleep in rocking chair in milieu, with assistance from LONNIE Renae and this RN, pt ambulated to 5 and laid down in bed, now resting, listening to TV, respirations even and unlabored, no apparent distress noted
--- NOTE | 2025-02-21 18:02 | PC.NURSE ---
RE: Med rec this Rn completed med rec with list provided from [facility]
--- NOTE | 2025-02-21 18:07 | PHA.MEDREC ---
Pharmacy Consult ? Medication Reconciliation Pharmacy has completed the medication reconciliation. List provided from [facility], completed by nursing and reviewed by pharmacy
--- NOTE | 2025-02-21 20:05 | PC.NURSE ---
patient appears to remain at rest presently respiration s are even and unlabored patient appears in no distress.
--- NOTE | 2025-02-21 22:35 | PC.NURSE ---
patient was 2-1 assist to restroom probably due to medication, no voiding in rest room
--- NOTE | 2025-02-21 22:42 | PC.NURSE ---
patient had been sleeping and 2-1 assist to rest room, medications unable to be obtained d/t lack of staff coverage
[2025-02-21] MEDS: carBAMazepine 200 MG TABLET 400 MG PO (23:01)
[2025-02-21] MEDS: Imipramine HCl 50 MG TABLET 25 MG PO (23:01)
[2025-02-21] MEDS: Methenamine Hippurate 1 GM TABLET PO (23:01)
[2025-02-21] MEDS: Melatonin 3 MG TABLET 9 MG PO (23:01)
[2025-02-21] MEDS: Donepezil HCl 5 MG TABLET PO (23:02)
[2025-02-21] MEDS: Docusate Sodium 100 MG CAPSULE PO (23:02)
[2025-02-21] MEDS: traZODone HCL 100 MG TABLET PO (23:02)
[2025-02-21] MEDS: QUEtiapine Fumarate 100 MG TABLET PO (23:03)
[2025-02-21] MEDS: Ascorbic Acid 500 MG TABLET PO (23:03)
--- NOTE | 2025-02-22 02:07 | PC.NURSE ---
2:1 assist to rest room again patient had already voided in undergarment, assisted back to bed
--- NOTE | 2025-02-22 02:24 | PC.NURSE ---
Assumed care of this Pt at this time.
--- NOTE | 2025-02-22 02:51 | PC.NURSE ---
Pt ambulated with walker and 1 assist to BR. Urine sample obtained and sent to lab. Pt given sandwich and juice per request.
[2025-02-22 03:02] LABS: Appearance Urine Clear; Color Urine Yellow; Glucose Urine UA Negative (Negative); Leukocyte Esterase Urine Moderate (2+) (Negative); Nitrite Urine Negative (Negative); PH 6.5 (5.0-9.0); Specific Gravity - Urine 1.015 (1.005-1.025); UMIC TRIGGER UACC YES; Urine Blood Negative (Negative); Urine Ketones Negative (Negative); Urine Protein Trace mg/dL (Neg-Trace)
[2025-02-22 03:03] LABS: Amphetamine Screen Urine Not Detected (Not Detect); Barbiturates, Urine Not Detected (Not Detect); Benzodiazepines Screen Urine Not Detected (Not Detect); Buprenorphine Scr Not Detected (Not Detect); Cannabinoid Screen Urine Not Detected (Not Detect); Cocaine Screen Urine Not Detected (Not Detect); Fentanyl, urine Not Detected (Not Detect); Methadone Screen, Urine Not Detected (Not Detect); Opiate Screen Urine Not Detected (Not Detect); Oxycodone Screen Urine Not Detected (Not Detect); Phencyclidine Screen Urine Not Detected (Not Detect)
[2025-02-22 03:12] LABS: Bacteria Urine None Seen (None Seen); Hyaline Casts Urine 0-2 /LPF (0-2); RBC Urine 0-2 /HPF (0-2); Squamous Epithelial Cell Urine 0-2 /HPF (0-2); UACC Culture Trigger YES; WBC Urine >50 /HPF (0-5)
[2025-02-22 03:28] VITALS: BP 137/67; PULSE 52; RESP 16; O2SAT 99
[2025-02-22] MEDS: QUEtiapine Fumarate 50 MG TABLET PO ×2 (05:31→15:24)
--- NOTE | 2025-02-22 05:35 | PC.NURSE ---
pt woke up agitated, yelling requesting to go to second floor to talk to Floyd . Pt medicated per NOV.
--- NOTE | 2025-02-22 06:21 | PC.NURSE ---
increased agitation upon return from main ED, patient had been medicated with seroquel 50mg po prior to her return yelling out and making statements how she hates this place and doctors she liked in the past.
[2025-02-22 07:04] VITALS: BP 137/77; PULSE 67; RESP 16; TEMP 36.7; O2SAT 100
--- NOTE | 2025-02-22 07:17 | PC.NURSE ---
ASSUMED CARE OF PT AT APPROXIMATELY 0645. IN THE [place] WATCHING TV, EATING BREAKFAST. NO APPARENT DISTRESS. NO REPORTED COMPLAINTS AT THIS TIME.
[2025-02-22] MEDS: QUEtiapine Fumarate 100 MG TABLET PO ×2 (08:52→21:02)
[2025-02-22] MEDS: Loratadine 10 MG TABLET PO (08:52)
[2025-02-22] MEDS: carBAMazepine 200 MG TABLET PO (08:52)
[2025-02-22] MEDS: Methenamine Hippurate 1 GM TABLET PO ×2 (08:52→21:04)
[2025-02-22] MEDS: Levothyroxine Sodium 200 MCG TABLET PO (08:52)
[2025-02-22] MEDS: Ascorbic Acid 500 MG TABLET PO ×2 (08:52→21:04)
[2025-02-22] MEDS: Multivitamin TABLET 1 TAB PO (08:52)
[2025-02-22] MEDS: Acetaminophen 325 MG TABLET 650 MG PO (13:11)
[2025-02-22] MEDS: Ibuprofen 400 MG TABLET PO (18:02)
[2025-02-22] MEDS: hydrOXYzine HCL 50 MG TABLET PO (18:02)
[2025-02-22 20:10] VITALS: BP 153/96; PULSE 93; RESP 18; TEMP 37.3; O2SAT 97
--- NOTE | 2025-02-22 20:36 | PM.PSYCN ---
History of Present Illness Date of Service: 02/22/25 Chief Complaint: Behavior Issue Reason for Consult: Agitation Requesting physician: Maximus Canales Discussed with referring provider: Yes Sources of Information: patient interviewed, chart reviewed and crisis/core team assessment reviewed HPI Narrative: Patient is a 69 year old woman with hx of developmental delay, who has resided in a [facility] home for several years. She was brought via EMS from due to 3 week long change in behavior including appearing more confused, intermittent agitation. She has had episodes of increased confusion and some psychosis in setting of UTI. Patient seen in the ED. She was sitting at a table and playing with [employer] cards. She was restless. Her speech is dysarthric and very incomprehensible. She became easily irritable saying she wants to go home because she wants to sleep in her bed. She became loud when she was told she would not be able to leave. Past Psychiatric History: OP: Tammy Randall past medication trials: abilify, carbamazepine, cogentin Medical Evaluation Reviewed: Yes [facility] Medical History Abnormal MRI Post-surgical hypothyroidism History of ESBL E. coli infection Toxic multinodular goiter Toxic multinodular goiter Vitamin D deficiency Hyperthyroidism Multinodular thyroid Colon cancer Lung mass Developmental delay, mild Arthritis Surgical History History of carpal tunnel surgery of right wrist Hx of total thyroidectomy History of biopsy Hx of colonic polyps Hx of colonoscopy Family History: unknown Substance History: None Trauma History: Not disclosed Past Psychiatric History: OP: Tammy Randall past medication trials: abilify, carbamazepine, cogentin [facility] Medical History (Updated 02/24/25 @ 00:05 by Jay Michelle MD) Developmental delay, moderate Abnormal MRI Post-surgical hypothyroidism History of ESBL E. coli infection Toxic multinodular goiter Vitamin D deficiency Hyperthyroidism Colon cancer Lung mass Developmental delay, mild Arthritis Surgical History History of carpal tunnel surgery of right wrist Hx of total thyroidectomy History of biopsy Hx of colonic polyps Hx of colonoscopy Family History: unknown Trauma History: Not disclosed Diagnostics Vital Signs (24Hr): Vital Signs - 24 hr 02/22/25 03:28 02/22/25 07:04 02/22/25 20:10 Temperature 98.1 F 99.2 F Pulse Rate 52 67 93 Respiratory Rate 16 16 18 Blood Pressure 137/67 137/77 153/96 H Pulse Oximetry 99 100 97 Oxygen Delivery Method Room Air Room Air Room Air BMI result Body Mass Index 24.7 Labs 02/23/25 00:43 02/23/25 16:36 Labs: Laboratory Results - last 48 hr 02/21/25 02/22/25 15:59 02:45 WBC 7.3 RBC 3.69 L Hgb 10.7 L Hct 32.3 L MCV 87.5 MCH 29.0 MCHC 33.1 RDW 13.9 Plt Count 263 D MPV 9.1 L Immature Gran % (Auto) 0.3 Neut % (Auto) 58.2 Lymph % (Auto) 27.2 [place] % (Auto) 12.4 H Eos % (Auto) 1.4 Baso % (Auto) 0.5 Lymph # (Auto) 2.0 [place] # (Auto) 0.9 Eos # (Auto) 0.1 Baso # (Auto) 0.0 Abs Immat Gran (auto) 0.02 Absolute Neuts (auto) 4.3 Absolute Nucleated RBC 0.000 Nucleated RBC % (auto) 0.0 Sodium 142 Potassium 3.8 Chloride 105 Carbon Dioxide 27 Anion Gap 14 BUN 39 H Creatinine 0.87 Estim Creat Clear Calc 51.8 Estimated GFR > 60 Random Glucose 120 H Calcium 10.0 D Total Bilirubin 0.4 AST 63 H ALT 42 H Alkaline Phosphatase 138 H Total Protein 7.2 Albumin 4.1 Urine Color Yellow Urine Appearance Clear Urine pH 6.5 Ur Specific [place] 1.015 Urine Protein Trace Urine Glucose (UA) Negative Urine Ketones Negative Urine Blood Negative Urine Nitrite Negative Ur Leukocyte Esterase Moderate (2+) H Urine RBC 0-2 Urine WBC >50 H Ur Squamous Epith Cells 0-2 Urine Bacteria None Seen Hyaline Casts 0-2 Urine Opiates Screen Not Detected Ur Buprenorphine Scrn Not Detected Ur Oxycodone Screen Not Detected Urine Methadone Screen Not Detected Urine Fentanyl Screen Not Detected Ur Barbiturates Screen Not Detected Carbamazepine 6.4 Ur Phencyclidine Scrn Not Detected Ur Amphetamines Screen Not Detected U Benzodiazepines Scrn Not Detected Urine Cocaine Screen Not Detected U Marijuana (THC) Screen Not Detected Ethyl Alcohol < 10 Mental Status Exam Mental Status Exam Narrative: General appearance: casually appropriate dress. Good hygiene.? Eye contact: intermittent. Musculoskeletal: Restless, hyperactive,constant mouth movements consistent with TD.??? Manner/behavior: Uncooperative. Speech:?dysarthric. Loud. Language: No receptive or expressive language impairment? Mood: Affect: Irritable, labile. Thought process/associations: Perseverating on going home. .?? Thought content:?Perseverative. ? Hallucinations: No auditory, visual or other hallucinations Suicidality/self-destructive behavior: none,? Homicidally/violence: none.? Reliability: poor.? ? Judgment: poor.? ? Insight: poor Cognition: Alert. Oriented. Attention, concentration and fund of knowledge are below normal.? Impulse control and emotional regulation: poor. Intelligence estimate: below average.? Medications Medications Current Medications Acetaminophen (Acetaminophen 325 Mg Tablet) 650 mg PO Q6H PRN PRN Reason: fever or pain Last Admin: 02/22/25 13:11 Dose: 650 mg Acetaminophen (Acetaminophen 325 Mg Tablet) 650 mg PO RQ6H PRN PRN Reason: Pain, Mild 1-3,fever,headache Ascorbic Acid (Ascorbic Acid 500 Mg Tablet) 500 mg PO BID [facility] Last Admin: 02/22/25 08:52 Dose: 500 mg Aspirin (Aspirin Enteric Coated 81 Mg Tablet.) 81 mg PO DAILY [facility] Last Admin: 02/22/25 08:53 Dose: Not Given Carbamazepine (Carbamazepine 200 Mg Tablet) 400 mg PO BEDTIME [facility] Last Admin: 02/21/25 23:01 Dose: 400 mg Carbamazepine (Carbamazepine 200 Mg Tablet) 200 mg PO DAILY [facility] Last Admin: 02/22/25 08:52 Dose: 200 mg Docusate Sodium (Docusate Sodium 100 Mg Capsule) 100 mg PO BID [facility] Last Admin: 02/22/25 08:53 Dose: Not Given Donepezil HCl (Donepezil Hcl 5 Mg Tablet) 5 mg PO BEDTIME [facility] Last Admin: 02/21/25 23:02 Dose: 5 mg Ferrous Sulfate (Ferrous Sulfate 324 Mg Tablet.) [facility] Fluticasone Propionate (Fluticasone Propionate Nasal 16 Gm [place]) 1 spray NOSTRIL-B BID PRN PRN Reason: nasal congestion Imipramine HCl (Imipramine Hcl 50 Mg Tablet) 25 mg PO BEDTIME [facility] Last Admin: 02/21/25 23:01 Dose: 25 mg Levothyroxine Sodium (Levothyroxine Sodium 200 Mcg Tablet) 200 mcg PO DAILY@0600 [facility] Last Admin: 02/22/25 08:52 Dose: 200 mcg Loratadine (Loratadine 10 Mg Tablet) 10 mg PO DAILY [facility] Last Admin: 02/22/25 08:52 Dose: 10 mg Melatonin (Melatonin 3 Mg Tablet) 9 mg PO BEDTIME [facility] Last Admin: 02/21/25 23:01 Dose: 9 mg Methenamine Hippurate (Methenamine Hippurate 1 Gm Tablet) 1 gm PO BID [facility] Last Admin: 02/22/25 08:52 Dose: 1 gm Multi-Ingred Cream/Lotion/Oil/Oint (Mineral Oil/Petrolatum,White 106 Gm Tube) 1 appl TOPICAL TID PRN PRN Reason: dry skin Multivitamins/Vitamin C (Multivitamin Tablet) 1 tab PO DAILY [facility] Last Admin: 02/22/25 08:52 Dose: 1 tab Non-Formulary Medication (Vibegron [Gemtesa]) 75 mg PO DAILY [facility] Nystatin (Nystatin Powder 15 Gm Bottle) 1 appl TOPICAL BID PRN; Protocol PRN Reason: Rash Quetiapine Fumarate (Quetiapine Fumarate 50 Mg Tablet) 50 mg PO DAILY@1600 [facility] Last Admin: 02/22/25 15:24 Dose: 50 mg Quetiapine Fumarate (Quetiapine Fumarate 50 Mg Tablet) 50 mg PO BID PRN PRN Reason: Agitation Last Admin: 02/22/25 05:31 Dose: 50 mg Quetiapine Fumarate (Quetiapine Fumarate 100 Mg Tablet) 100 mg PO BID [facility] Last Admin: 02/22/25 08:52 Dose: 100 mg Senna (Sennosides 8.6 Mg Tablet) 8.6 mg PO Q48H [facility] Last Admin: 02/21/25 18:07 Dose: Not Given Tamsulosin HCl (Tamsulosin Hcl 0.4 Mg Capsule) 0.4 mg PO DAILY [facility] Last Admin: 02/22/25 08:53 Dose: Not Given Trazodone HCl (Trazodone Hcl 100 Mg Tablet) 100 mg PO BEDTIME [facility] Last Admin: 02/21/25 23:02 Dose: 100 mg Triamcinolone Acetonide (Triamcinolone Acet 0.1 % Oint 15 Gm Tube) 1 appl TOPICAL BID PRN PRN Reason: Skin Irritation Allergies Allergies Allergy/AdvReac Type Severity Reaction Status Date / Time adhesive tape Allergy Intermediate itching Verified 02/21/25 15:14 and skin redness latex Allergy Intermediate skin rash Verified 02/21/25 15:14 and itching Seasonal Allergies Allergy Itching Verified 02/21/25 15:14 weed pollen Allergy stuffy nose Verified 02/21/25 15:14 DUST Allergy Unknown ITCHY/WATERY Uncoded 02/21/25 15:14 EYES surgical paper tape Allergy Unknown rash Uncoded 02/21/25 15:14 Tide Allergy Unknown rash Uncoded 02/21/25 15:14 Assessment & Plan Assessment & Plan (1) Mood disorder: Status: Acute Code(s): F39 - Unspecified mood [affective] disorder (2) Vascular dementia: Status: Acute Code(s): F01.50 - Vascular dementia, unspecified severity, without behavioral disturbance, psychotic disturbance, mood disturbance, and anxiety (3) Intellectual delay: Status: Acute Code(s): F81.9 - Developmental disorder of scholastic skills, unspecified Plan Patient is a 69 year old woman with hx of developmental delay, who has resided in a [facility] home for several years. She was brought via EMS from due to 3 week long change in behavior including appearing more confused, intermittent agitation. She has had episodes of increased confusion and some psychosis in setting of UTI. Plan: - Patient in need of inpatient hospitalization for stabilization so she can return to correction. - If symptoms resolve with medical treatment of UTI or medical cause of increased agitation is detected and patient responds to treatment may be able to return to correction. Total time managing care of this patient today ____ minutes.
[2025-02-22] MEDS: Melatonin 3 MG TABLET 9 MG PO (21:02)
[2025-02-22] MEDS: Imipramine HCl 50 MG TABLET 25 MG PO (21:02)
[2025-02-22] MEDS: carBAMazepine 200 MG TABLET 400 MG PO (21:04)
[2025-02-22] MEDS: Docusate Sodium 100 MG CAPSULE PO (21:04)
[2025-02-22] MEDS: traZODone HCL 100 MG TABLET PO (21:04)
[2025-02-22] MEDS: Donepezil HCl 5 MG TABLET PO (21:04)
--- NOTE | 2025-02-22 21:30 | PC.NURSE ---
t/w conferred w rn who works [employer] regularly, rn reported client is not at baseline asked about thyroid panel (asking provider via charge) client asked for icy hot (working on it) UTI sx- prelim UA not conclusive, culture pending. rn reported 7 days ago fall (bruised are ovee one eye and diffuse bruises on torso)
[2025-02-22] MEDS: Midazolam HCl 2 MG/2 ML VIAL 4 MG IM (22:43)
[2025-02-22 22:50] VITALS: BP 99/58; PULSE 93; RESP 16; TEMP 37.4; O2SAT 99
[2025-02-23] VITALS (7 sets, daily range): BP systolic 101–139; BP diastolic 42–74; PULSE 63–94; RESP 14–19; TEMP 36.6–36.8; O2SAT 95–99
[2025-02-23] MEDS: Acetaminophen 325 MG TABLET 650 MG PO (00:04)
[2025-02-23] MEDS: LORazepam 1 MG TABLET 2 MG PO (00:19)
[2025-02-23] MEDS: diphenhydrAMINE HCL 25 MG CAPSULE 50 MG PO (00:19)
[2025-02-23] MEDS: QUEtiapine Fumarate 100 MG TABLET PO ×3 (00:20→20:19)
--- NOTE | 2025-02-23 00:26 | PC.NURSE ---
Took over care from RN Emma, pt was told need to come to main for medical clearance
--- NOTE | 2025-02-23 00:37 | PC.NURSE ---
provider into assess pt, pt medicated per mar.
--- NOTE | 2025-02-23 00:46 | PC.NURSE ---
Pt work collected and sent.
[2025-02-23 00:50] LABS: MANUAL DIFF FLAG NO
[2025-02-23 00:51] LABS: Basophils Percent Auto 0.3 % (0-2); Eosinophils Absolute Auto 0.1 X10*3/uL (0.0-0.4); Eosinophils Percent Auto 0.9 % (0-4); Hematocrit 31.6 % (37.0-47.0); Hemoglobin 10.5 g/dl (12.0-16.0); Imm Gran Abs Auto 0.04 X10*3/uL (0.00-0.03); Imm Gran Pct Auto 0.4 % (0.0-0.4); Lymphocytes Absolute Auto 1.4 X10*3/uL (1.2-4.9); Lymphocytes Percent Auto 13.7 % (20-40); Mean Corpuscular HGB Conc 33.2 g/dl (31.0-35.0); Mean Corpuscular Hemoglobin 29.1 pg (27.0-33.0); Mean Corpuscular Volume 87.5 fL (80.0-98.0); Mean Platelet Volume 9.1 fL (9.4-12.3); Monocytes Percent Auto 9.7 % (2-11); Neutrophils Absolute Auto 7.5 x10*3/uL (2.0-8.3); Platelet Count 263 X10*3/uL (160-400); Red Blood Count 3.61 X10*6/uL (4.20-5.50); Red Cell Distribution Width 14.2 % (11.0-16.0)
[2025-02-23 01:13] LABS: Alanine Aminotransferase 36 U/L (0-31); Albumin Level 3.7 g/dL (3.5-5.0); Anion Gap 16 (12-20); Aspartate Amino Transferase 51 U/L (5-31); Bilirubin Total 0.2 mg/dL (0.0-1.0); Blood Urea Nitrogen 35 mg/dL (9-16); Calcium 8.7 mg/dL (8.4-10.2); Carbon Dioxide 22 mmol/L (22-29); Chloride 107 mmol/L (96-108); Creatinine Clr Calc Pharmacy 38.2; Estimated Glomerular Filt Rate 45; Glucose Random 115 mg/dL (60-115); Potassium 4.8 mmol/L (3.3-5.1); Sodium 140 mmol/L (135-145); Total Protein 7.1 g/dL (6.5-8.0)
--- NOTE | 2025-02-23 01:34 | PC.NURSE ---
pt placed in hospital bed, camera on for safety.
[2025-02-23 01:36] LABS: TSH reflex Free T4 19.15 uIU/mL (0.32-4.0)
[2025-02-23 01:39] LABS: Influenza A PCR NEGATIVE (Negative); Influenza B PCR NEGATIVE (Negative); Resp Syncy Virus RNA Qual PCR NEGATIVE (Negative); SARS COV2 PCR INHOUSE NEGATIVE (Negative)
[2025-02-23 02:53] LABS: Alkaline Phosphatase 122 U/L (39-117)
[2025-02-23 03:10] LABS: Free T4 (Free Thyroxine) 0.92 ng/dL (0.71-1.85)
--- NOTE | 2025-02-23 04:51 | PC.NURSE ---
pt is sleeping no sign of distress
[2025-02-23] MEDS: Levothyroxine Sodium 75 MCG TABLET 225 MCG PO (05:50)
--- NOTE | 2025-02-23 05:54 | PC.NURSE ---
Medicated per nov, pt repositioned in bed, bed alarm in place, with camera present.
--- NOTE | 2025-02-23 07:14 | PC.NURSE ---
pt assist to bathroom, brief changed, pt placed back in bed with bed alarm and camera on. call carrero at the side.
[2025-02-23] MEDS: cefuroxime axetiL 250 MG TABLET PO ×2 (08:29→20:21)
[2025-02-23] MEDS: Aspirin Enteric Coated 81 MG TABLET.DR PO (08:29)
[2025-02-23] MEDS: Docusate Sodium 100 MG CAPSULE PO ×2 (08:30→20:21)
[2025-02-23] MEDS: Tamsulosin HCL 0.4 MG CAPSULE PO (08:30)
[2025-02-23] MEDS: Loratadine 10 MG TABLET PO (08:30)
[2025-02-23] MEDS: Multivitamin TABLET 1 TAB PO (08:30)
[2025-02-23] MEDS: Ascorbic Acid 500 MG TABLET PO ×2 (08:30→20:21)
[2025-02-23] MEDS: Methenamine Hippurate 1 GM TABLET PO ×2 (08:30→20:19)
[2025-02-23] MEDS: carBAMazepine 200 MG TABLET PO (08:30)
--- NOTE | 2025-02-23 11:40 | PC.NURSE ---
Addendum entered by Grace Martinez 02/23/25 11:42: Pt started on PO antibiotics for suspected UTI Original Note: Pt moved to a different room (single occupancy); safety camera set up for constant observation; pt/staff from [facility] made aware that she is an inpt. bed search per psychiatry; pt cooperative at this time with care
--- NOTE | 2025-02-23 11:54 | MHC.CARE ---
Consulted with Dr. Michelle on 02/23/25, he agrees to follow up with the patient in AM as she was started on antibiotics and may clear and be able to discharge back to custodial. Clinician requested custodial send staff in to sit with the patient for CARE team to obtain more information on her baseline and there is the possibility for her to DC back to custodial tomorrow 02/24/25. Dr. Michelle is also crop pest control specialist tomorrow to weigh in on dispo for DC home as his initial dispo was for [facility].
--- NOTE | 2025-02-23 15:27 | PC.NURSE ---
Pt becoming agitated because current molding utility worker is being replaced by oncoming shift of staff from the senior care; emotional support given and pt able to be calmed by senior care/ER staff
[2025-02-23] MEDS: QUEtiapine Fumarate 50 MG TABLET PO ×2 (15:34→22:46)
[2025-02-23] MEDS: OLANZapine 2.5 MG TABLET PO (15:54)
[2025-02-23] MEDS: LORazepam 0.5 MG TABLET PO (15:54)
--- NOTE | 2025-02-23 16:05 | PC.NURSE ---
Pt escalating with agitation and yelling; aware and pt medicated per orders for agitation; staff member from correction state pt is not at her baseline at all
[2025-02-23 16:44] LABS: VBG Base Excess 4.4 mmol/L; VBG HCO3 28 mmol/L (22-26); VBG pCO2 41 mmHg; VBG pH 7.45 (7.32-7.43); VBG pO2 151 mmHg
[2025-02-23 16:44] LABS: Venous Blood Gas Refer to POC result
[2025-02-23 16:57] LABS: Anion Gap 9 (12-20); Blood Urea Nitrogen 31 mg/dL (9-16); Calcium 8.3 mg/dL (8.4-10.2); Carbon Dioxide 26 mmol/L (22-29); Chloride 107 mmol/L (96-108); Creatinine Clr Calc Pharmacy 44.1; Estimated Glomerular Filt Rate 54; Glucose Random 105 mg/dL (60-115); Potassium 4.1 mmol/L (3.3-5.1); Sodium 138 mmol/L (135-145)
[2025-02-23 16:59] LABS: Lactic Acid 0.9 mmol/L (0.5-2.0)
--- NOTE | 2025-02-23 17:11 | PC.NURSE ---
Pt sleeping at this time
[2025-02-23] MEDS: Sennosides 8.6 MG TABLET PO (19:35)
[2025-02-23] MEDS: Imipramine HCl 50 MG TABLET 25 MG PO (20:19)
[2025-02-23] MEDS: Melatonin 3 MG TABLET 9 MG PO (20:20)
[2025-02-23] MEDS: Donepezil HCl 5 MG TABLET PO (20:21)
[2025-02-23] MEDS: traZODone HCL 100 MG TABLET PO (20:21)
[2025-02-23] MEDS: carBAMazepine 200 MG TABLET 400 MG PO (20:21)
--- NOTE | 2025-02-23 22:47 | PC.NURSE ---
pt woke up from agitated stating she wnats to go home and shes not staying in the hospital. pt becoming increasingly agitated yelling out, unable to redirect. gave pt PRN seroquel. pt eating rob crackers per request. call carrero within reach. nursing home staff bedside. plan of care ongoing
[2025-02-24 02:49] VITALS: BP 109/53; PULSE 65; RESP 16; TEMP 36.6; O2SAT 96
[2025-02-24 05:23] VITALS: BP 125/56; RESP 18; TEMP 36.3; O2SAT 98
[2025-02-24] MEDS: Acetaminophen 325 MG TABLET 650 MG PO (05:25)
[2025-02-24] MEDS: Levothyroxine Sodium 75 MCG TABLET 225 MCG PO (05:25)
[2025-02-24 06:26] VITALS: BP 115/71; PULSE 66; RESP 20; TEMP 36.7; O2SAT 99
[2025-02-24] MEDS: Loratadine 10 MG TABLET PO (08:49)
[2025-02-24] MEDS: QUEtiapine Fumarate 100 MG TABLET PO (08:49)
[2025-02-24] MEDS: Aspirin Enteric Coated 81 MG TABLET.DR PO (08:49)
[2025-02-24] MEDS: carBAMazepine 200 MG TABLET PO (08:49)
[2025-02-24] MEDS: cefuroxime axetiL 250 MG TABLET PO (08:49)
[2025-02-24] MEDS: Methenamine Hippurate 1 GM TABLET PO (08:49)
[2025-02-24] MEDS: Multivitamin TABLET 1 TAB PO (08:49)
[2025-02-24] MEDS: Tamsulosin HCL 0.4 MG CAPSULE PO (08:49)
[2025-02-24] MEDS: Docusate Sodium 100 MG CAPSULE PO (08:49)
[2025-02-24] MEDS: Ascorbic Acid 500 MG TABLET PO (08:49)
[2025-02-24] MEDS: Ferrous Sulfate 324 MG TABLET.DR PO (08:51)
--- NOTE | 2025-02-24 11:50 | MHC.CARE ---
Pt does not meet IPL[facility] and will be discharged to her correction to follow up with current providers.
[2025-02-24 12:14] VITALS: BP 115/71; PULSE 66; RESP 20; TEMP 36.7; O2SAT 99
== END 2025-02-24 12:38 | disposition skilled nursing facility (03) ==
PROVIDERS: Emergency Medicine Emergency Medical Services; Emergency Provider Emergency Medicine
DX: F41.9 Anxiety disorder, unspecified (principal); N39.0 Urinary tract infection, site not specified; F01.511 Vascular dementia, unspecified severity, with agitation; F39 Unspecified mood [affective] disorder; F81.9 Developmental disorder of scholastic skills, unspecified; R50.9 Fever, unspecified; Z03.818 Encounter for observation for suspected exposure to other biological agents ruled out; Z79.899 Other long term (current) drug therapy; Z79.82 Long term (current) use of aspirin
CPT/HCPCS: 0241U; 36415; 80048; 80053; 80156; 80307; 81001; 81003; 82803; 83605; 84439; 84443; 85025; 87086; 99212; 99285; J2250; S9485

== ENCOUNTER → 2025-02-21 16:10 | Outpatient (BNV) | payer MEDICARE, MEDICAID, SELFPAY | PROVIDERS: Emergency Provider Emergency Medicine; Visit Provider Psychiatry & Neurology Psychiatry | DX: F39 Unspecified mood [affective] disorder (principal); F01.50 Vascular dementia, unspecified severity, without behavioral disturbance, psychotic disturbance, mood disturbance, and anxiety; F81.9 Developmental disorder of scholastic skills, unspecified | CPT/HCPCS: 99284 ==

== ENCOUNTER 2025-02-28 08:06 | Emergency (ER) | payer MEDICARE, MEDICAID, SELFPAY ==
--- NOTE | ~2025-02-28 | XR_ITS ---
EXAMINATION: XR CHEST CLINICAL INFORMATION: fall COMPARISON: None available. TECHNIQUE: Frontal view of the chest was obtained. FINDINGS: There is cardiac enlargement. The mediastinal and hilar contours are normal. The lungs are clear bilaterally. No pneumothorax or effusion. No focal osseous or soft tissue abnormality. No definite fracture seen. Degenerative changes of both shoulder joints and spine. XR/XR chest 1V IMPRESSION: Cardiomegaly. No acute thoracic abnormality. Electronically signed by: Damian Starr MD 02/28/2025 08:42 AM EDT
--- NOTE | ~2025-02-28 | CT_ITS ---
EXAMINATION: CT HEAD WITHOUT CONTRAST CLINICAL INFORMATION: COMPARISON: None available. TECHNIQUE: Contiguous axial imaging was performed from the skull base to vertex without intravenous administration of contrast. This CT examination was performed using dose optimization techniques as appropriate, variously including the following: *Automated exposure control *Adjustment of mA and/or kV according to patient size (this includes techniques or standardized protocols for targeted exams where dose is matched to indication/reason for exam; i.e. extremities or head) *Use of iterative reconstruction technique FINDINGS: Examination mildly degraded by motion artifact. This limits the sensitivity of the study. There is no evidence of intracranial hemorrhage or extra-axial fluid collection. There is no mass effect, or edema. No CT evidence of acute territorial infarct. Ventricles, sulci, and cisterns are normal in size and configuration for patient age. No hydrocephalus. No midline shift. Negative hyperdense MCA sign. Negative insular ribbon sign. Patchy periventricular and deep white matter hypoattenuation is consistent with mild small vessel ischemic changes. Normal pituitary. Globes and orbital contents image normally. 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 No additional extracranial soft tissue abnormality allowing for motion. The paranasal sinuses, mastoid air cells, and tympanic cavities are normally aerated. No suspicious bony abnormalities. There are no acute fractures evident. CT/CT head/brain wo IV con IMPRESSION: 1. Somewhat motion degraded exam, limiting sensitivity. 2. No acute intracranial abnormalities. 3. Redemonstration of an unchanged 2.8 cm mass in the right skull base, carotid space, consistent with a carotid body tumor. Electronically signed by: Damian Starr MD 02/28/2025 09:31 AM EDT
--- NOTE | ~2025-02-28 | CT_ITS ---
EXAMINATION: CT CERVICAL SPINE WITHOUT CONTRAST CLINICAL INFORMATION: Neck pain, altered mental status. COMPARISON: 02/14/2025. TECHNIQUE: Spiral CT imaging of the cervical spine performed in axial plane without contrast. Multiplanar reformatted images were constructed from the axial data set. This CT examination was performed using dose optimization techniques as appropriate, variously including the following: *Automated exposure control *Adjustment of mA and/or kV according to patient size (this includes techniques or standardized protocols for targeted exams where dose is matched to indication/reason for exam; i.e. extremities or head) *Use of iterative reconstruction technique FINDINGS: Study is limited due to moderate motion, which limits the sensitivity of the study. CORONAL ALIGNMENT: -Normal. SAGITTAL ALIGNMENT: -Mild straightening of the normal lordosis. -There is a 2 mm degenerative anterolisthesis C4 on C5, a 3 mm degenerative anterolisthesis C6 on C7. C1-C2 AND CRANIOCERVICAL JUNCTION: -Intact and aligned. Moderate degenerative changes in the anterior atlantoaxial joint. VERTEBRAL BODIES AND FACETS: -No fractures, compression deformities, or suspicious bone lesions. No evidence of traumatic subluxation. -Normal facet alignment bilaterally with multilevel hypertrophic degenerative facet changes DISCS: -Moderate diffuse disc degeneration, most notable at C5-6 and C6-7. CENTRAL CANAL: -No evidence of high-grade central canal narrowing or large disc herniation allowing for modality limitations. PREVERTEBRAL AND PARAVERTEBRAL SOFT TISSUES: -Within the confines of motion, there is no prevertebral soft tissue swelling or edema. -There is a right carotid body tumor measuring 2.8 cm, stable from prior exams. -The thyroid is not well seen and may be surgically absent. -Patulous appearing cervical esophagus, partially imaged. LUNG APICES: -Clear bilaterally. CT/CT cervical spine wo IV con IMPRESSION: 1. Motion degraded examination, limiting sensitivity. 2. No CT evidence of acute cervical spine fracture or injury. 3. Advanced degenerative spondylosis. 4. 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 Electronically signed by: Damian Starr MD 02/28/2025 09:37 AM EDT
[2025-02-28 08:13] VITALS: BP 142/68; PULSE 66
[2025-02-28 08:15] VITALS: BP 158/83; PULSE 59; RESP 20; TEMP 36.6; O2SAT 96; BMI 26.4
--- NOTE | 2025-02-28 08:24 | ECG_ITS ---
Test Reason : FALL Blood Pressure : */* mmHG Vent. Rate : 67 BPM Atrial Rate : 67 BPM P-R Int : 192 ms QRS Dur : 144 ms QT Int : 472 ms P-R-T Axes : 31 -54 23 degrees QTcB Int : 498 ms Normal sinus rhythm Right bundle branch block Left anterior fascicular block Bifascicular block Minimal voltage criteria for LVH, may be normal variant ( R in aVL ) Abnormal ECG When compared with ECG of 14-Feb-2025 14:25, MI interval has decreased Referred By: Daniela Bautista Electronically Signed By: OSCAR OROZCO MD
--- OUTSIDE RECORDS SUMMARY | 2025-02-28 08:33 | XMS_ITS | Encounter Summary ---
Author Organization [facility] Address [address] [place] [address] Care Team Providers Care Tax Examining Technician Name Role Phone Sher Patrick Primary Care Provider [phone] Reason for Visit * Reason Onset Date Comments Needs to reschedule 09/28/2020 Encounter Details Date Type Department Care Team (Late st Contact Info) Description 09/28/2020 Telephone [facility] Central Scheduling Department [address] [place] [address] Telephone Intake, Staff Needs to reschedule Social [...] Description 05/09/2025 2:00 PM EDT Hospital Encounter [facility] Operating Room [address] [place] [address] Catracho Vidal MD MPH [address] [place] [address] 05/12/2025 2:00 PM EDT - 05/12/2025 3:05 PM EDT Surgery [facility] Operating Room [address] [place] [address] Catracho Vidal MD MPH [address] [place] [address] Colonoscopy Screening, High Risk with Possible Moderate Sedation [33479 (CPT??)] Scheduled Procedures Name Priority Associated Diagnoses [...] documented as of this encounter Care Teams Tax Examining Technician Relationship Specialty Start Date End Date Sher Patrick [address] [place] [address] [place] [address] PCP - General 04/20/17 documented as of this encounter
[2025-02-28] MEDS: Diphth,Pertus(ACell),Tet Adult 0.5 ML SYRINGE IM (09:15)
[2025-02-28] MEDS: 0.9 % Sodium Chloride 500 ML 999 ML IV (09:17)
[2025-02-28 09:39] LABS: Basophils Absolute Auto 0.1 X10*3/uL (0.0-0.2); Basophils Percent Auto 0.6 % (0-2); Eosinophils Absolute Auto 0.1 X10*3/uL (0.0-0.4); Eosinophils Percent Auto 1.3 % (0-4); Hematocrit 30.4 % (37.0-47.0); Hemoglobin 9.7 g/dl (12.0-16.0); Imm Gran Abs Auto 0.02 X10*3/uL (0.00-0.03); Imm Gran Pct Auto 0.2 % (0.0-0.4); Lymphocytes Percent Auto 22.5 % (20-40); MANUAL DIFF FLAG NO; Mean Corpuscular HGB Conc 31.9 g/dl (31.0-35.0); Mean Corpuscular Hemoglobin 29.2 pg (27.0-33.0); Mean Corpuscular Volume 91.6 fL (80.0-98.0); Mean Platelet Volume 9.3 fL (9.4-12.3); Monocytes Absolute Auto 0.8 X10*3/uL (0.1-1.2); Monocytes Percent Auto 8.7 % (2-11); Neutrophils Percent Auto 66.7 % (45-73); Platelet Count 289 X10*3/uL (160-400); Red Blood Count 3.32 X10*6/uL (4.20-5.50); Red Cell Distribution Width 14.6 % (11.0-16.0)
[2025-02-28 10:11] LABS: Troponin-I High Sensitivity 3.6 ng/L (<3.5-17.0)
[2025-02-28 11:27] VITALS: BP 151/81; PULSE 78; RESP 18; TEMP 36.3; O2SAT 96
--- NOTE | 2025-02-28 11:41 | ED.HEATRA ---
HPI - Head Injury General Chief complaint: Head Injury Stated complaint: HEAD INJURY 12 HRS AGO Time Seen by Provider: 02/28/25 08:17 History of Present Illness HPI Narrative: Patient is a 69-year-old female from a residential facility. Was found with a bleeding wound to the occipital area. Patient unable to recall what happened she is not on any blood thinners. Recently was discharged from the hospital she has no complaints. Related Data Home Medications ?Medication ?Instructions ?Recorded ?Confirmed nystatin 100,000 unit/gram topical 1 appl topical BID PRN Rash 01/05/21 02/21/25 powder triamcinolone acetonide 0.1 % 1 appl topical BID PRN Skin 01/24/23 02/21/25 topical ointment Irritation melatonin 10 mg tablet 10 mg PO BEDTIME 05/10/23 02/21/25 ascorbic acid (vitamin C) 500 mg 500 mg PO BID 03/13/24 02/21/25 tablet (Vitamin C) betamethasone dipropionate 0.05 % 1 appl topical BID PRN Dry areas 03/13/24 02/21/25 topical ointment on hand zinc oxide-vitamin B5-vit E 11.3% 1 appl topical BID Rash 03/13/24 02/21/25 topical cream (Balmex Adult Care) quetiapine 100 mg tablet 100 mg PO BID 01/31/25 02/21/25 vibegron 75 mg tablet (Gemtesa) 75 mg PO DAILY 01/31/25 02/21/25 carbamazepine 200 mg tablet 200 mg PO DAILY 02/21/25 02/21/25 imipramine HCl 25 mg tablet 25 mg PO BEDTIME 02/21/25 02/21/25 quetiapine 50 mg tablet 50 mg PO DIRECTED 02/21/25 02/21/25 quetiapine 50 mg tablet 50 mg PO BID PRN Agitation 02/21/25 02/21/25 Previous Rx's ?Medication ?Instructions ?Recorded carbamazepine 200 mg tablet 400 mg (2 x 200 mg) PO BEDTIME #60 09/23/24 tabs donepezil 5 mg tablet 5 mg PO BEDTIME #30 tabs 09/23/24 trazodone 100 mg tablet 100 mg PO BEDTIME #30 tabs 09/23/24 acetaminophen 500 mg tablet 500 mg PO Q6H PRN fever or pain 12/19/24 #100 tabs aspirin 81 mg tablet,delayed 81 mg PO DAILY #90 tabs 12/19/24 release docusate sodium 100 mg capsule 100 mg PO BID #180 caps 12/19/24 ferrous sulfate 325 mg (65 mg See Rx Instructions .Route 12/19/24 iron) tablet (FeroSul) .COMPLEX #36 tabs ibuprofen 400 mg tablet 400 mg PO Q6H PRN Pain #100 tabs 12/19/24 levothyroxine 200 mcg tablet 200 mcg PO DAILY #90 tabs 12/19/24 loratadine 10 mg tablet 10 mg PO DAILY #90 tabs 12/19/24 multivitamin 1 tab PO DAILY #90 tabs 12/19/24 sennosides 8.6 mg tablet (Senna 8.6 mg PO Q48H constipation #45 12/19/24 Lax) tabs tamsulosin 0.4 mg capsule 0.4 mg PO Q24H #90 caps 12/19/24 Icy Hot Pain Relieving 2.5 % 1 appl topical BID #70.8 grams 01/13/25 topical gel (menthol) fluticasone propionate 50 1 spray intranasal BID PRN nasal 01/31/25 mcg/actuation nasal congestion #16 grams spray,suspension (Allergy Relief (fluticasone)) methenamine hippurate 1 gram tablet 1 g PO BID #180 tabs 01/31/25 Balmex (petrolatum) 51.1 % topical 1 appl topical TID PRN dry skin 02/05/25 ointment (white petrolatum) #99 grams cefuroxime axetil 250 mg tablet 250 mg PO BID #10 tabs 02/24/25 Allergies Allergy/AdvReac Type Severity Reaction Status Date / Time adhesive tape Allergy Intermediate itching Verified 02/28/25 08:19 and skin redness latex Allergy Intermediate skin rash Verified 02/28/25 08:19 and itching Seasonal Allergies Allergy Itching Verified 02/28/25 08:19 weed pollen Allergy stuffy nose Verified 02/28/25 08:19 DUST Allergy Unknown ITCHY/WATERY Uncoded 02/21/25 15:14 EYES surgical paper tape Allergy Unknown rash Uncoded 02/21/25 15:14 Tide Allergy Unknown rash Uncoded 02/21/25 15:14 Review of Systems Review of Systems: Unable to obtain review of systems secondary patient's condition [facility] Past Medical History Attestation statement: The following information was validated with the patient. Medical History Developmental delay, moderate Abnormal MRI Post-surgical hypothyroidism History of ESBL E. coli infection Toxic multinodular goiter Vitamin D deficiency Hyperthyroidism Colon cancer Lung mass Developmental delay, mild Arthritis Surgical History History of carpal tunnel surgery of right wrist Hx of total thyroidectomy History of biopsy Hx of colonic polyps Hx of colonoscopy Family History Family History Father No problems noted. 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 Household Members Other:: gr home Housing: Other Housing Other:: residential Unable to assess alcohol history related to: Unknown Alcohol intake: never Patient Tobacco Use Status: Never used Tobacco e-Cigarette/Vaping Use: Never Used Second Hand Smoke Exposure: No Advance Directives Date on File: 01/05/21 service: No Current occupational status: disabled Current occupation: right handed Cognitive needs: Yes (walker) Hearing needs: No Vision needs: Yes (rx glasses) Physical Exam Vital Signs: Vital Signs: Last Vital Signs Temp 97.3 F 02/28/25 11:27 Pulse 78 02/28/25 11:27 Resp 18 02/28/25 11:27 BP 151/81 H 02/28/25 11:27 Pulse Ox 96 02/28/25 11:27 O2 Del Method Room Air 02/28/25 11:27 BMI result Body Mass Index 26.4 Appearance: Alert. Awake alert oriented to self. No acute distress. Minimal abrasion/small laceration approximately 1 cm in size in the occipital area wound is well apposed. Eyes: Pupils equal, round and reactive to light. ENT: Pharynx normal. Neck: Normal inspection. Neck supple. No lymph nodes noted. No crepitus CVS: Normal heart rate and rhythm. Pulses normal. Normal S1 and S2 Respiratory: No respiratory distress. Breath sounds normal. No Wheezing. No rales Abdomen: Soft and nontender. No rigidity. No distention. good BS x4 Skin: Skin warm and dry. Normal skin color. Normal skin turgor. Extremities: No lower extremity edema. Neurovascular intact to all extremities. No Lacerations. No Rash Neuro: Oriented oriented to self. No motor deficit. No sensory deficit. Moving all extermities. No slurred speech Medications Administered Discontinued Medications Generic Name Dose Route Start Last Admin Trade Name Freq PRN Reason Stop Dose Admin Diphtheria/Tetanus/Acell Pertussis 0.5 ml 02/28/25 08:23 02/28/25 09:15 Diphth,Pertus(Acell),Tet Adult 0.5 Ml Syringe IM 02/28/25 08:24 0.5 ml .ONCE ONE Administration Sodium Chloride 500 mls @ 999 mls/hr 02/28/25 08:30 02/28/25 09:48 Ns IV 02/28/25 09:00 Infused .Q31M DANA Infusion Medical Decision Making Medical Decision Making [facility] Narrative: Patient not on blood thinners. CT scan of the head by my interpretation was negative for bleeding. No mass effect. No shift. Patient is tetanus was updated wound was cleaned. Chest x-ray by my interpretation was grossly negative. My interpretation of patient's EKG showed a sinus rhythm heart rate was 80 there is a right bundle branch block which is not new. Patient's CPK is 295 there is no evidence for rhabdo patient's hemoglobin is 9.7 this is approximately baseline. Attempted to contact patient's next of kin nurse Mariel Egan. Will attempt to discharge patient home Differential Diagnosis Differential Diagnoses: The differential diagnosis associated with the presentation includes Admission/Observation Consideration of admission/observation: Escalation of care including admission/observation considered Lab Data [facility] Lab Attestation statement: I reviewed the patient's lab results. 02/28/25 09:13 Labs: Lab Results 02/28/25 Range/Units 09:13 WBC 9.0 (4.8-10.8) X10*3/uL RBC 3.32 L (4.20-5.50) X10*6/uL Hgb 9.7 L (12.0-16.0) g/dl Hct 30.4 L (37.0-47.0) % MCV 91.6 (80.0-98.0) fL MCH 29.2 (27.0-33.0) pg MCHC 31.9 (31.0-35.0) g/dl RDW 14.6 (11.0-16.0) % Plt Count 289 (160-400) X10*3/uL MPV 9.3 L (9.4-12.3) fL Immature Gran % (Auto) 0.2 (0.0-0.4) % Neut % (Auto) 66.7 (45-73) % Lymph % (Auto) 22.5 (20-40) % Edmonson % (Auto) 8.7 (2-11) % Eos % (Auto) 1.3 (0-4) % Baso % (Auto) 0.6 (0-2) % Lymph # (Auto) 2.0 (1.2-4.9) X10*3/uL Edmonson # (Auto) 0.8 (0.1-1.2) X10*3/uL Eos # (Auto) 0.1 (0.0-0.4) X10*3/uL Baso # (Auto) 0.1 (0.0-0.2) X10*3/uL Abs Immat Gran (auto) 0.02 (0.00-0.03) X10*3/uL Absolute Neuts (auto) 6.0 (2.0-8.3) x10*3/uL Absolute Nucleated RBC 0.000 (0.0-0.012) X10*3/uL Nucleated RBC % (auto) 0.0 (0.0-0.2) /100WBC Total Creatine Kinase 295 H (26-140) U/L Troponin I High Sens 3.6 (<3.5-17.0) ng/L Independent Interpretation I performed an independent interpretation of an: Plain X-Ray (Chest x-ray showed no acute fracture) and CT Scan (CT head and C-spines are grossly negative for fracture no bleed.) Radiology Impression Discussion of test interpretation with radiology: I have reviewed the radiologist's reading. Independent Historian assisted member External Record Review External record reviewed: Primary care record Chronic Conditions Mentally challenged Discharge Plan Discharge Clinical Impression: Head injury Patient Disposition: Home, Self-Care Instructions: Head Injury (DC) Prescriptions: No Action Icy Hot Pain Relieving 2.5 % gel 1 appl topical BID Qty: 70.8 3RF Rx Instructions: Small amount topically twice daily to back and shoulder methenamine hippurate 1 gram tablet 1 g PO BID Qty: 180 3RF Balmex (petrolatum) 51.1 % ointment 1 appl topical TID PRN (Reason: dry skin) Qty: 99 3RF Rx Instructions: Apply 3 times daily as needed to groin and buttocks for rash/dry skin nystatin 100,000 unit/gram Powder 1 appl TOPICAL BID PRN (Reason: Rash) Rx Instructions: rash in skin folds triamcinolone acetonide 0.1 % ointment 1 appl topical BID PRN (Reason: Skin Irritation) Rx Instructions: apply to the lower abdomen, groin, and Buttocks ( Once started apply 2 weeks on and 1 week off) betamethasone dipropionate 0.05 % ointment 1 appl topical BID PRN (Reason: Dry areas on hand) Rx Instructions: Once started, Apply 2 weeks on and 1 week off. ascorbic acid (vitamin C) [Vitamin C] 500 mg tablet 500 mg PO BID Balmex Adult Care 11.3 % Cream 1 appl TOPICAL BID Rx Instructions: apply to rash, groin, and buttocks donepezil 5 mg Tablet 5 mg PO BEDTIME Qty: 30 0RF carbamazepine 200 mg Tablet 400 mg PO BEDTIME Qty: 60 0RF trazodone 100 mg tablet 100 mg PO BEDTIME Qty: 30 0RF melatonin 10 mg Tablet 10 mg PO BEDTIME quetiapine 50 mg tablet 50 mg PO DIRECTED Rx Instructions: Take 50mg by mouth daily at 4pm quetiapine 50 mg tablet 50 mg PO BID PRN (Reason: Agitation) carbamazepine 200 mg tablet 200 mg PO DAILY imipramine HCl 25 mg tablet 25 mg PO BEDTIME cefuroxime axetil 250 mg tablet 250 mg PO BID Qty: 10 0RF Rx Instructions: Start from 02/24-02/28 twice a day. multivitamin Tablet 1 tab PO DAILY Qty: 90 3RF loratadine 10 mg tablet 10 mg PO DAILY Qty: 90 3RF aspirin 81 mg tablet,delayed release (DR/EC) 81 mg PO DAILY Qty: 90 3RF ferrous sulfate [FeroSul] 325 mg (65 mg iron) tablet See Rx Instructions .ROUTE .COMPLEX Qty: 36 3RF Rx Instructions: 325 mg oral once daily on Mon, Wed, Mon docusate sodium 100 mg capsule 100 mg PO BID Qty: 180 3RF Rx Instructions: hold for diarrhea. if held for 4 consecutive doses contact PCP sennosides [Senna Lax] 8.6 mg tablet 8.6 mg PO Q48H Qty: 45 3RF Rx Instructions: hold for diarrhea. call md if hold for 2 consecutive doses tamsulosin 0.4 mg capsule 0.4 mg PO Q24H Qty: 90 3RF Rx Instructions: in am levothyroxine 200 mcg tablet 200 mcg PO DAILY Qty: 90 3RF acetaminophen 500 mg tablet 500 mg PO Q6H PRN (Reason: fever or pain) Qty: 100 3RF Rx Instructions: call pcp if fever > 48 hours ibuprofen 400 mg tablet 400 mg PO Q6H PRN (Reason: Pain) Qty: 100 3RF Rx Instructions: if symptoms not resolved in 48 hours contact pcp quetiapine 100 mg tablet 100 mg PO BID Gemtesa 75 mg tablet 75 mg PO DAILY fluticasone propionate [Allergy Relief (fluticasone)] 50 mcg/actuation spray,suspension 1 spray intranasal BID PRN (Reason: nasal congestion) Qty: 16 0RF Rx Instructions: administer into each nostril Referrals: Physician,Unknown J [Primary Care Provider] - 03/04/25 Print Language: Unable To Collect
[2025-02-28 13:13] VITALS: BP 151/81; PULSE 78; RESP 18; TEMP 36.3; O2SAT 96
== END 2025-02-28 13:14 | disposition home or self-care (01) ==
PROVIDERS: Emergency Provider Emergency Medicine Emergency Medical Services
DX: S09.90XA Unspecified injury of head, initial encounter (principal); X58.XXXA Exposure to other specified factors, initial encounter; S01.81XA Laceration without foreign body of other part of head, initial encounter; Y93.9 Activity, unspecified; Y92.9 Unspecified place or not applicable; Y99.9 Unspecified external cause status; M54.2 Cervicalgia; R41.82 Altered mental status, unspecified; E05.90 Thyrotoxicosis, unspecified without thyrotoxic crisis or storm; Z79.899 Other long term (current) drug therapy; Z23 Encounter for immunization
CPT/HCPCS: 36415; 70450; 71045; 72125; 82550; 84484; 85025; 90471; 90715; 93005; 96360; 99285

== ENCOUNTER → 2025-02-28 08:23 | Outpatient (BNV) | payer MEDICARE, MEDICAID, SELFPAY | PROVIDERS: Emergency Provider Emergency Medicine Emergency Medical Services; Visit Provider Radiology Diagnostic Radiology | DX: M47.812 Spondylosis without myelopathy or radiculopathy, cervical region (principal); D35.5 Benign neoplasm of carotid body; D16.4 Benign neoplasm of bones of skull and face; I51.7 Cardiomegaly | CPT/HCPCS: 70450; 71045; 72125 ==

== ENCOUNTER → 2025-02-28 08:24 | Outpatient (BNV) | payer MEDICARE, MEDICAID, SELFPAY | PROVIDERS: Emergency Provider Emergency Medicine Emergency Medical Services; Visit Provider Internal Medicine Cardiovascular Disease | DX: I45.2 Bifascicular block (principal) | CPT/HCPCS: 93010 ==

== ENCOUNTER 2025-03-04 15:32 | Emergency (ER) | payer MEDICARE, MEDICAID, SELFPAY ==
--- NOTE | ~2025-03-04 | CT_ITS ---
CLINICAL HISTORY: fall CT cervical spine without contrast Comparison: CT/WI/SR - CT CERVICAL SPINE WO IV CON - 02/28/25 08:44 EDT Findings: Motion degraded study Vertebral alignment is within normal limits. Moderate multilevel spondylosis with disc space narrowing, osteophytosis and facet arthropathy. No acute fractures or dislocations. Visualized intracranial contents are unremarkable. Soft tissues of the neck are normal. Lung apices are clear. IMPRESSION: Motion degraded study. No acute findings. Moderate multilevel spondylosis. This document has been electronically signed by: Dariel Amaya MD on 03/04/2025 20:51:13
--- NOTE | ~2025-03-04 | US_ITS ---
CLINICAL HISTORY: swelling Left upper extremity venous duplex ultrasound Study was performed using color and spectral waveform analysis. Comparison: None. Findings: Visualized deep veins are fully compressible with normal flow and augmentation. No significant adenopathy. Impression: Left upper extremity venous duplex ultrasound negative for DVT This document has been electronically signed by: Zechariah Swan MD on 03/08/2025 20:55:12
--- NOTE | ~2025-03-04 | CT_ITS ---
CLINICAL HISTORY: fall contusion CT abdomen and pelvis without contrast Comparison: CT/REG/SR - CT ABDOMEN PELVIS WO IV CON - 10/02/23 11:15 EST Findings: Streak artifact originating from the patient's arms by the side as motion limits evaluation No consolidation or effusion. The gallbladder and solid organs are within normal limits. No renal stones. No bowel obstruction, pneumoperitoneum, or pneumatosis. Appendix is not definitely visualized. Large colonic stool burden. Pelvic contents unremarkable. Mild diffuse body wall edema. No acute fracture. IMPRESSION: No acute findings. Large colonic stool burden consistent with constipation. Moderate diffuse body wall edema. This document has been electronically signed by: Dariel Amaya MD on 03/04/2025 20:50:27
--- NOTE | ~2025-03-04 | CT_ITS ---
CLINICAL HISTORY: ams CT head without contrast Comparison: CT/WI/SR - CT HEAD/BRAIN WO IV CON - 02/28/25 08:44 EDT Findings: Markedly motion degraded study. No large intracranial hemorrhage, midline shift or mass lesions. IMPRESSION: Markedly motion degraded, essentially nondiagnostic study. 1. No large intracranial hemorrhage, midline shift or mass lesions. If clinically indicated, repeat study when patient conditions improves is recommended. This document has been electronically signed by: Dariel Amaya MD on 03/04/2025 20:55:23
--- NOTE | ~2025-03-04 | XR_ITS ---
CLINICAL HISTORY: sob 1 view chest x-ray Comparison: CR/SR - XR CHEST 1V - 02/28/25 08:32 EDT Findings: Diffuse interstitial prominence in both lungs may represent pulmonary vascular congestion. Right lower lung increased radiopacity likely due to superimposed breast tissue. Normal size heart. No acute fracture. IMPRESSION: Diffuse interstitial prominence in both lungs may represent pulmonary vascular congestion. This document has been electronically signed by: Dariel Amaya MD on 03/04/2025 19:24:20
[2025-03-04 15:46] VITALS: BP 144/58; BP 146/92; PULSE 88; PULSE 95; RESP 16; TEMP 37.6; O2SAT 98; O2SAT 99; BMI 23.4
--- NOTE | 2025-03-04 16:15 | ED_ITS ---
HPI - Psych General Chief Complaint: Behavioral Concerns Stated Complaint: SECTION 12 Time Seen by Provider: 03/04/25 16:09 History of Present Illness HPI Narrative: Patient is a 69-year-old female from a local intermediate sent in on a section 12 by and 4 extremely aggressive assaultive behavior to staff. Throwing things uncooperative. Sent to the ED for further evaluation patient is developmentally delayed. History of mood disorder. History of vascular dementia. Unable to provide detailed history. Patient has been to the emergency department in the past. Related Data Home Medications ?Medication ?Instructions ?Recorded ?Confirmed nystatin 100,000 unit/gram topical 1 appl topical BID PRN Rash 01/05/21 03/04/25 powder triamcinolone acetonide 0.1 % 1 appl topical BID PRN Skin 01/24/23 03/04/25 topical ointment Irritation melatonin 10 mg tablet 10 mg PO BEDTIME 05/10/23 03/04/25 ascorbic acid (vitamin C) 500 mg 500 mg PO BID 03/13/24 03/04/25 tablet (Vitamin C) betamethasone dipropionate 0.05 % 1 appl topical BID PRN Dry areas 03/13/24 03/04/25 topical ointment on hand zinc oxide-vitamin B5-vit E 11.3% 1 appl topical BID Rash 03/13/24 03/04/25 topical cream (Balmex Adult Care) vibegron 75 mg tablet (Gemtesa) 75 mg PO DAILY 01/31/25 03/04/25 carbamazepine 200 mg tablet 200 mg PO DAILY 02/21/25 03/04/25 imipramine HCl 25 mg tablet 25 mg PO BEDTIME 02/21/25 03/04/25 quetiapine 50 mg tablet 50 mg PO BID PRN Agitation 02/21/25 03/04/25 acetaminophen 500 mg tablet 500 mg PO Q4H PRN fever or pain 03/04/25 03/04/25 ferrous sulfate 325 mg (65 mg 325 mg PO MOWEFR@0900 03/04/25 03/04/25 iron) tablet (FeroSul) quetiapine 200 mg tablet (Seroquel) 200 mg PO BID 03/04/25 03/04/25 tamsulosin 0.4 mg capsule 0.4 mg PO DAILY 03/04/25 03/04/25 Previous Rx's ?Medication ?Instructions ?Recorded carbamazepine 200 mg tablet 400 mg (2 x 200 mg) PO BEDTIME #60 09/23/24 tabs donepezil 5 mg tablet 5 mg PO BEDTIME #30 tabs 09/23/24 trazodone 100 mg tablet 100 mg PO BEDTIME #30 tabs 09/23/24 aspirin 81 mg tablet,delayed 81 mg PO DAILY #90 tabs 12/19/24 release docusate sodium 100 mg capsule 100 mg PO BID #180 caps 12/19/24 ibuprofen 400 mg tablet 400 mg PO Q6H PRN Pain #100 tabs 12/19/24 levothyroxine 200 mcg tablet 200 mcg PO DAILY #90 tabs 12/19/24 loratadine 10 mg tablet 10 mg PO DAILY #90 tabs 12/19/24 multivitamin 1 tab PO DAILY #90 tabs 12/19/24 sennosides 8.6 mg tablet (Senna 8.6 mg PO Q48H constipation #45 12/19/24 Lax) tabs Icy Hot Pain Relieving 2.5 % 1 appl topical BID #70.8 grams 01/13/25 topical gel (menthol) fluticasone propionate 50 1 spray intranasal BID PRN nasal 01/31/25 mcg/actuation nasal congestion #16 grams spray,suspension (Allergy Relief (fluticasone)) methenamine hippurate 1 gram tablet 1 g PO BID #180 tabs 01/31/25 Allergies Allergy/AdvReac Type Severity Reaction Status Date / Time adhesive tape Allergy Intermediate itching Verified 03/04/25 15:49 and skin redness latex Allergy Intermediate skin rash Verified 03/04/25 15:49 and itching Seasonal Allergies Allergy Itching Verified 03/04/25 15:49 weed pollen Allergy stuffy nose Verified 03/04/25 15:49 DUST Allergy Unknown ITCHY/WATERY Uncoded 02/21/25 15:14 EYES surgical paper tape Allergy Unknown rash Uncoded 02/21/25 15:14 Tide Allergy Unknown rash Uncoded 02/21/25 15:14 Review of Systems 2 Review of Systems: positive agitation Yes all other systems are reviewed and are negative PMFSH Past Medical History Attestation statement: The following information was validated with the patient. Onset Time:: 16:19 Medical History Developmental delay, moderate Abnormal MRI Post-surgical hypothyroidism History of ESBL E. coli infection Toxic multinodular goiter Vitamin D deficiency Hyperthyroidism Colon cancer Lung mass Developmental delay, mild Arthritis Surgical History History of carpal tunnel surgery of right wrist Hx of total thyroidectomy History of biopsy Hx of colonic polyps Hx of colonoscopy Family History Family History Father No problems noted. 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 Household Members Other:: gr home Housing: Other Housing Other:: intermediate Unable to assess alcohol history related to: Unknown Alcohol intake: never Patient Tobacco Use Status: Never used Tobacco e-Cigarette/Vaping Use: Never Used Second Hand Smoke Exposure: No Advance Directives: Yes Advance Directives on File: Yes Advance Directives Date on File: 01/05/21 Do you have a plan to hurt others: Vague service: No Current occupational status: disabled Current occupation: right handed Cognitive needs: Yes (walker) Hearing needs: No Vision needs: Yes (rx glasses) Physical Exam 2 Vital Signs: Vital Signs: Last Vital Signs Temp 98.5 F 03/10/25 06:35 Pulse 63 03/10/25 06:35 Resp 16 03/10/25 06:35 BP 126/58 L 03/10/25 06:35 Pulse Ox 99 03/10/25 06:35 O2 Del Method Room Air 03/10/25 06:35 BMI result Body Mass Index 23.4 Appearance: Alert. agitated Eyes: Pupils equal, round and reactive to light. ENT: Pharynx normal. Neck: Normal inspection. Neck supple. No lymph nodes noted. No crepitus CVS: Normal heart rate and rhythm. Pulses normal. Normal S1 and S2 Respiratory: No respiratory distress. Breath sounds normal. No Wheezing. No rales Abdomen: Soft and nontender. No rigidity. No distention. good BS x4 Skin: Skin warm and dry. Normal skin color. Normal skin turgor. Extremities: No lower extremity edema. Neurovascular intact to all extremities. No Lacerations. No Rash Neuro: wake agitated moving all extremities Course Course Course Narrative: Time: 14:27 Date: 03/05/25 Provider: Erich Carpenter MD Start Physician observation ended at 1427. The patient is in physician observation for inpatient [facility] psychiatric bed search. The patient became agitated and started acting out and we are unable to redirect her. I attempted to give her Seroquel 100 mg orally but she refused. The patient's behavior escalated and she began shouting, throwing objects at staff, striking out at staff and using racial slurs. Again, I was unable to redirect the patient therefore I ordered chemical restraint with Haldol 10 mg IM Benadryl 50 mg IM and Versed 4 mg IM. The patient's medications were reconciled and I did order her outpatient regimen. Reevaluation(s) Reevaluation #1: Physician Observation continued. Patient is at baseline and not in any distress. Patient Urine culture is positive. Antibiotics ordered. Patient pending crisis evaluation. Vital signs stable Time: 09:18 Reevaluation #2: Time: 10:12 Date: 03/07/25 Provider: Janelle Sargent CNP Patient in physician observation for psychiatric evaluation.? No acute events reported overnight. No current complaints. VS stable.? Patient remains a [facility] psych bed search at this time. Will continue to monitor. Reevaluation #3: I was asked to see this patient this evening because of swelling of the left arm and hand. There was swelling noted from the elbow down. The patient denied any injury. The patient has significant cognitive impairment and did not seem to be a very reliable historian. There was no report of any injury. On exam I felt that she was moving the arm normally. She was bending her elbow easily and moving her wrist and fingers easily. She was using her hand and arm to feed herself without apparent discomfort. She had no focal bony tenderness on exam. She did have soft tissue swelling. I therefore obtained a DVT ultrasound of the left upper extremity. This was negative. I do not think further evaluation is indicated at the moment. The patient seems to be using the arm perfectly normally. I think the ongoing efforts at placement should continue. Time: 02:44 Additional Reevaluation(s): 03/09/25 11:20 JAMES Serrato: Physician observation continued no overnight events reported by nursing. Vital signs stable. Patient remains in ED as [facility] psych bed search. Time: 12:41 Date: 03/09/25 Provider: Janelle Sargent CNP Patient in physician observation for psychiatric bed search. I have spoken with care team, they have made me aware that psychiatry was able to see the patient on 03/07/2025 with recommendation for starting Seroquel 100 mg at noon. I do not see that this change has been reflected I will implement this at this time.? 03/10/25 09:47 JAMES Serrato: Physician observation continued, no overnight events reported by nursing. Patient remains psychiatric bed search. Vital signs stable. Medications Administered Generic Name Dose Route Start Last Admin Trade Name Freq PRN Reason Stop Dose Admin Acetaminophen 975 mg 03/05/25 15:06 03/09/25 22:25 Acetaminophen 325 Mg Tablet PO 975 mg Q4H PRN Administration Pain, Moderate(Pain Scale 4-6) Ascorbic Acid 500 mg 03/05/25 21:00 03/10/25 08:39 Ascorbic Acid 500 Mg Tablet PO 500 mg BID DANA Administration Aspirin 81 mg 03/06/25 09:00 03/10/25 08:38 Aspirin Enteric Coated 81 Mg Tablet. PO 81 mg DAILY DANA Administration Carbamazepine 400 mg 03/05/25 21:00 03/09/25 20:47 Carbamazepine 200 Mg Tablet PO 400 mg BEDTIME DANA Administration Carbamazepine 200 mg 03/05/25 14:45 03/10/25 08:38 Carbamazepine 200 Mg Tablet PO 200 mg DAILY DANA Administration Cefuroxime Axetil 250 mg 03/06/25 09:30 03/10/25 08:39 Cefuroxime Axetil 250 Mg Tablet PO 250 mg BID DANA Administration Docusate Sodium 100 mg 03/05/25 14:45 03/10/25 08:39 Docusate Sodium 100 Mg Capsule PO 100 mg BID DANA Administration Donepezil HCl 5 mg 03/05/25 21:00 03/09/25 20:47 Donepezil Hcl 5 Mg Tablet PO 5 mg BEDTIME DANA Administration Ferrous Sulfate 324 mg 03/07/25 09:00 03/10/25 08:38 Ferrous Sulfate 324 Mg Tablet. PO 324 mg MOWEFR@0900 DANA Administration Levothyroxine Sodium 200 mcg 03/05/25 14:45 03/10/25 06:21 Levothyroxine Sodium 200 Mcg Tablet PO 200 mcg DAILY@0600 DANA Administration Loratadine 10 mg 03/06/25 09:00 03/10/25 08:38 Loratadine 10 Mg Tablet PO 10 mg DAILY DANA Administration Melatonin 9 mg 03/05/25 21:00 03/09/25 20:46 Melatonin 3 Mg Tablet PO 9 mg BEDTIME DANA Administration Methenamine Hippurate 1 gm 03/05/25 14:45 03/10/25 08:38 Methenamine Hippurate 1 Gm Tablet PO 1 gm BID DANA Administration Multivitamins/Vitamin C 1 tab 03/06/25 09:00 03/10/25 08:39 Multivitamin Tablet PO 1 tab DAILY DANA Administration Quetiapine Fumarate 200 mg 03/05/25 14:45 03/10/25 08:39 Quetiapine Fumarate 200 Mg Tablet PO 200 mg BID DANA Administration Quetiapine Fumarate 100 mg 03/09/25 12:00 03/10/25 08:39 Quetiapine Fumarate 100 Mg Tablet PO 100 mg DAILY DANA Administration Senna 8.6 mg 03/05/25 15:00 03/09/25 18:42 Sennosides 8.6 Mg Tablet PO Not Given Q48H DANA Tamsulosin HCl 0.4 mg 03/05/25 14:45 03/10/25 08:38 Tamsulosin Hcl 0.4 Mg Capsule PO 0.4 mg DAILY DANA Administration Trazodone HCl 100 mg 03/05/25 21:00 03/09/25 20:47 Trazodone Hcl 100 Mg Tablet PO 100 mg BEDTIME DANA Administration Discontinued Medications Generic Name Dose Route Start Last Admin Trade Name Freq PRN Reason Stop Dose Admin Diphenhydramine HCl 25 mg 03/04/25 16:10 03/04/25 16:18 Diphenhydramine Hcl 50 Mg/Ml Vial IM 03/04/25 16:11 25 mg ONCE ONE Administration Diphenhydramine HCl 50 mg 03/05/25 14:23 03/05/25 14:34 Diphenhydramine Hcl 50 Mg/Ml Vial IM 03/05/25 14:24 50 mg ONCE ONE Administration Haloperidol Lactate 5 mg 03/04/25 16:10 03/04/25 16:18 Haloperidol Lactate 5 Mg/Ml Vial IM 03/04/25 16:11 5 mg ONCE ONE Administration Haloperidol Lactate 10 mg 03/05/25 14:23 03/05/25 14:34 Haloperidol Lactate 5 Mg/Ml Vial IM 03/05/25 14:24 10 mg STAT STA Administration Midazolam HCl 2 mg 03/04/25 16:12 03/04/25 16:18 Midazolam Hcl 2 Mg/2 Ml Vial IM 03/04/25 16:13 2 mg ONCE ONE Administration Midazolam HCl 4 mg 03/05/25 14:23 03/05/25 14:34 Midazolam Hcl 2 Mg/2 Ml Vial IM 03/05/25 14:24 4 mg ONCE ONE Administration Polyethylene Glycol 17 gm 03/04/25 20:55 03/04/25 21:13 Polyethylene Glycol 3350 17 Gm Powd.Pack PO 03/04/25 20:56 Not Given ONCE ONE Polyethylene Glycol 17 gm 03/05/25 01:23 03/05/25 01:32 Polyethylene Glycol 3350 17 Gm Powd.Pack PO 03/05/25 01:24 17 gm ONCE ONE Administration Quetiapine Fumarate 100 mg 03/05/25 13:41 03/05/25 14:24 Quetiapine Fumarate 100 Mg Tablet PO 03/05/25 13:42 Not Given ONCE ONE Sodium Biphosphate/Sodium Phosphate 133 ml 03/04/25 20:55 03/04/25 21:13 Sodium Phosphate,Tensas-Dibasic 133 Ml Enema NE 03/04/25 20:56 Not Given ONCE ONE Sodium Biphosphate/Sodium Phosphate 133 ml 03/05/25 01:23 03/05/25 01:32 Sodium Phosphate,[place]-Dibasic 133 Ml Enema NE 03/05/25 01:24 133 ml ONCE ONE Administration Medical Decision Making Medical Decision Making MDM Narrative: patient presented with behavior changes. More agitated more aggressive than normal. Initially there was a question history of fever we did a rectal temp it was 98 there is no evidence for fever. Patient's alcohol is less than 10. Urine showed no signs of infection. Patient's CPK is in the 300 range no evidence for rhabdo. LFTs of baseline. Kidney function consistent with dehydration with elevated BUN and creatinine. COVID flu RSV were all negative. My interpretation of patient's chest x-ray is grossly negative. My interpretation patient's CT head was grossly negative. On reviewing patient's body on exam patient had multitude of contusion question secondary to fall. A CT scan of the C-spine CT scan of the abdomen pelvis was done as there was significant contusion to the right hip area. My interpretation of the reading CT abdomen pelvis was grossly negative for fracture. No acute traumatic injury. Large amount of poop was noted. Patient is currently cleared for crisis evaluation. Will give MiraLax. Time: 14:07 Date: 03/08/25 Provider: Maximus Canales, DO Patient in physician observation for psychiatric evaluation.? No acute events reported overnight. No current complaints. VS stable.? Patient is in bed search status-geriatric bed search Will continue to monitor. Time: 11:11 Date: 03/10/25 Provider: Maximus Canales DO Physician observation ended. Patient has been cleared for discharge by the CARE team. Going back to her intermediate Differential Diagnosis Differential Diagnoses: The differential diagnosis associated with the presentation includes Agitation, infection Admission/Observation Consideration of admission/observation: Escalation of care including admission/observation considered Consult Healthcare Provider Management of the patient was discussed with: Behavioral Health Provider Lab Data MDM Lab Attestation statement: I reviewed the patient's lab results. 03/04/25 18:17 03/07/25 12:38 Labs: Lab Results 03/04/25 03/04/25 03/04/25 Range/Units 18:17 18:18 18:26 WBC 11.6 H (4.8-10.8) X10*3/uL RBC 3.27 L (4.20-5.50) X10*6/uL Hgb 9.5 L (12.0-16.0) g/dl Hct 29.3 L (37.0-47.0) % MCV 89.6 (80.0-98.0) fL MCH 29.1 (27.0-33.0) pg MCHC 32.4 (31.0-35.0) g/dl RDW 14.6 (11.0-16.0) % Plt Count 270 (160-400) X10*3/uL MPV 9.2 L (9.4-12.3) fL Immature Gran % (Auto) 0.3 (0.0-0.4) % Neut % (Auto) 72.6 (45-73) % Lymph % (Auto) 15.5 L (20-40) % [place] % (Auto) 10.1 (2-11) % Eos % (Auto) 1.1 (0-4) % Baso % (Auto) 0.4 (0-2) % Lymph # (Auto) 1.8 (1.2-4.9) X10*3/uL [place] # (Auto) 1.2 (0.1-1.2) X10*3/uL Eos # (Auto) 0.1 (0.0-0.4) X10*3/uL Baso # (Auto) 0.1 (0.0-0.2) X10*3/uL Abs Immat Gran (auto) 0.04 H (0.00-0.03) X10*3/uL Absolute Neuts (auto) 8.4 H (2.0-8.3) x10*3/uL Absolute Nucleated RBC 0.000 (0.0-0.012) X10*3/uL Nucleated RBC % (auto) 0.0 (0.0-0.2) /100WBC Sodium 146 H (135-145) mmol/L Potassium 4.3 (3.3-5.1) mmol/L Chloride 114 H (96-108) mmol/L Carbon Dioxide 25 (22-29) mmol/L Anion Gap 11 L (12-20) BUN 35 H (9-16) mg/dL Creatinine 0.96 (0.5-1.4) mg/dL Estim Creat Clear Calc 39.1 Estimated GFR 57 Random Glucose 87 (60-115) mg/dL Calcium 8.8 D (8.4-10.2) mg/dL Total Bilirubin 0.4 (0.0-1.0) mg/dL Direct Bilirubin 0.2 (0.0-0.5) mg/dL AST 41 H (5-31) U/L ALT 29 (0-31) U/L Alkaline Phosphatase 129 H (39-117) U/L Total Creatine Kinase 383 H (26-140) U/L Total Protein 6.7 (6.5-8.0) g/dL Albumin 3.6 (3.5-5.0) g/dL Urine Color Yellow Urine Appearance Clear Urine pH 6.0 (5.0-9.0) Ur Specific [place] 1.020 (1.005-1.025) Urine Protein 30 (1+) H (Neg-Trace) mg/dL Urine Glucose (UA) Negative (Negative) mg/dL Urine Ketones Trace (Negative) mg/dL Urine Blood Negative (Negative) Urine Nitrite Negative (Negative) Ur Leukocyte Esterase Small (1+) H (Negative) Urine RBC 3-5 H (0-2) /HPF Urine WBC 6-10 (0-5) /HPF Ur Squamous Epith Cells 6-10 (0-2) /HPF Ur Transition Epith Cell Present Ur Renal Epithelial Cell Present Urine Bacteria None Seen (None Seen) Hyaline Casts 3-5 (0-2) /LPF Urine Yeast Present Salicylates < 5.0 L (15-30) mg/dL Urine Opiates Screen Not Detected (Not Detect) Ur Buprenorphine Scrn Not Detected (Not Detect) ng/mL Ur Oxycodone Screen Not Detected (Not Detect) ng/mL Urine Methadone Screen Not Detected (Not Detect) ng/mL Urine Fentanyl Screen Not Detected (Not Detect) Acetaminophen < 3 (<30) mcg/mL Ur Barbiturates Screen Not Detected (Not Detect) Ur Phencyclidine Scrn Not Detected (Not Detect) Ur Amphetamines Screen Not Detected (Not Detect) U Benzodiazepines Scrn POSITIVE H (Not Detect) Urine Cocaine Screen Not Detected (Not Detect) U Marijuana (THC) Screen Not Detected (Not Detect) Ethyl Alcohol < 10 mg/dL Influenza Type A (PCR) NEGATIVE (Negative) Influenza Type B (PCR) NEGATIVE (Negative) RSV RNA Qual (PCR) NEGATIVE (Negative) SARS-CoV-2 RNA (RT-PCR) NEGATIVE (Negative) 03/07/25 Range/Units 12:38 WBC (4.8-10.8) X10*3/uL RBC (4.20-5.50) X10*6/uL Hgb (12.0-16.0) g/dl Hct (37.0-47.0) % MCV (80.0-98.0) fL MCH (27.0-33.0) pg MCHC (31.0-35.0) g/dl RDW (11.0-16.0) % Plt Count (160-400) X10*3/uL MPV (9.4-12.3) fL Immature Gran % (Auto) (0.0-0.4) % Neut % (Auto) (45-73) % Lymph % (Auto) (20-40) % [place] % (Auto) (2-11) % Eos % (Auto) (0-4) % Baso % (Auto) (0-2) % Lymph # (Auto) (1.2-4.9) X10*3/uL [place] # (Auto) (0.1-1.2) X10*3/uL Eos # (Auto) (0.0-0.4) X10*3/uL Baso # (Auto) (0.0-0.2) X10*3/uL Abs Immat Gran (auto) (0.00-0.03) X10*3/uL Absolute Neuts (auto) (2.0-8.3) x10*3/uL Absolute Nucleated RBC (0.0-0.012) X10*3/uL Nucleated RBC % (auto) (0.0-0.2) /100WBC Sodium 144 (135-145) mmol/L Potassium 3.7 (3.3-5.1) mmol/L Chloride 111 H (96-108) mmol/L Carbon Dioxide 28 (22-29) mmol/L Anion Gap 9 L (12-20) BUN 23 H (9-16) mg/dL Creatinine 0.93 (0.5-1.4) mg/dL Estim Creat Clear Calc 40.4 Estimated GFR 60 Random Glucose 103 (60-115) mg/dL Calcium 8.2 L D (8.4-10.2) mg/dL Total Bilirubin 0.4 (0.0-1.0) mg/dL Direct Bilirubin (0.0-0.5) mg/dL AST 35 H (5-31) U/L ALT 26 (0-31) U/L Alkaline Phosphatase 106 (39-117) U/L Total Creatine Kinase (26-140) U/L Total Protein 6.0 L (6.5-8.0) g/dL Albumin 2.9 L (3.5-5.0) g/dL Urine Color Urine Appearance Urine pH (5.0-9.0) Ur Specific [place] (1.005-1.025) Urine Protein (Neg-Trace) mg/dL Urine Glucose (UA) (Negative) mg/dL Urine Ketones (Negative) mg/dL Urine Blood (Negative) Urine Nitrite (Negative) Ur Leukocyte Esterase (Negative) Urine RBC (0-2) /HPF Urine WBC (0-5) /HPF Ur Squamous Epith Cells (0-2) /HPF Ur Transition Epith Cell Ur Renal Epithelial Cell Urine Bacteria (None Seen) Hyaline Casts (0-2) /LPF Urine Yeast Salicylates (15-30) mg/dL Urine Opiates Screen (Not Detect) Ur Buprenorphine Scrn (Not Detect) ng/mL Ur Oxycodone Screen (Not Detect) ng/mL Urine Methadone Screen (Not Detect) ng/mL Urine Fentanyl Screen (Not Detect) Acetaminophen (<30) mcg/mL Ur Barbiturates Screen (Not Detect) Ur Phencyclidine Scrn (Not Detect) Ur Amphetamines Screen (Not Detect) U Benzodiazepines Scrn (Not Detect) Urine Cocaine Screen (Not Detect) U Marijuana (THC) Screen (Not Detect) Ethyl Alcohol mg/dL Influenza Type A (PCR) (Negative) Influenza Type B (PCR) (Negative) RSV RNA Qual (PCR) (Negative) SARS-CoV-2 RNA (RT-PCR) (Negative) Independent Interpretation I performed an independent interpretation of an: Plain X-Ray ( chest x-ray negative) and CT Scan ( head negative for bleed Limited by artifact.) Radiology Impression Discussion of test interpretation with radiology: I have reviewed the radiologist's reading. Independent Historian Clinical information obtained from an independent historian. History obtained from or confirmed by: Spouse External Record Review External record reviewed: Inpatient record Chronic Conditions psychiatric disorder Social Determinants Patient?s care significantly limited by Social Determinants of Health including: Inadequate housing, Low income and Problems related to primary support group Discharge Plan Discharge Clinical Impression: Intellectual delay, Dementia, Constipation Patient Disposition: Home, Self-Care Additional Instructions: Evaluated emergency department, workup that she has had he has been unremarkable we will be discharged back to intermediate. Prescriptions: No Action Icy Hot Pain Relieving 2.5 % gel 1 appl topical BID Qty: 70.8 3RF Rx Instructions: Small amount topically twice daily to back and shoulder methenamine hippurate 1 gram tablet 1 g PO BID Qty: 180 3RF nystatin 100,000 unit/gram Powder 1 appl TOPICAL BID PRN (Reason: Rash) Rx Instructions: rash in skin folds triamcinolone acetonide 0.1 % ointment 1 appl topical BID PRN (Reason: Skin Irritation) Rx Instructions: apply to the lower abdomen, groin, and Buttocks ( Once started apply 2 weeks on and 1 week off) betamethasone dipropionate 0.05 % ointment 1 appl topical BID PRN (Reason: Dry areas on hand) Rx Instructions: Once started, Apply 2 weeks on and 1 week off. ascorbic acid (vitamin C) [Vitamin C] 500 mg tablet 500 mg PO BID Balmex Adult Care 11.3 % Cream 1 appl TOPICAL BID Rx Instructions: apply to rash, groin, and buttocks donepezil 5 mg Tablet 5 mg PO BEDTIME Qty: 30 0RF carbamazepine 200 mg Tablet 400 mg PO BEDTIME Qty: 60 0RF trazodone 100 mg tablet 100 mg PO BEDTIME Qty: 30 0RF melatonin 10 mg Tablet 10 mg PO BEDTIME quetiapine 50 mg tablet 50 mg PO BID PRN (Reason: Agitation) carbamazepine 200 mg tablet 200 mg PO DAILY imipramine HCl 25 mg tablet 25 mg PO BEDTIME quetiapine [Seroquel] 200 mg Tablet 200 mg PO BID acetaminophen 500 mg tablet 500 mg PO Q4H PRN (Reason: fever or pain) Rx Instructions: call pcp if fever > 48 hours tamsulosin 0.4 mg capsule 0.4 mg PO DAILY Rx Instructions: in am ferrous sulfate [FeroSul] 325 mg (65 mg iron) tablet 325 mg PO MOWEFR@0900 multivitamin Tablet 1 tab PO DAILY Qty: 90 3RF loratadine 10 mg tablet 10 mg PO DAILY Qty: 90 3RF aspirin 81 mg tablet,delayed release (DR/EC) 81 mg PO DAILY Qty: 90 3RF docusate sodium 100 mg capsule 100 mg PO BID Qty: 180 3RF Rx Instructions: hold for diarrhea. if held for 4 consecutive doses contact PCP sennosides [Senna Lax] 8.6 mg tablet 8.6 mg PO Q48H Qty: 45 3RF Rx Instructions: hold for diarrhea. call md if hold for 2 consecutive doses levothyroxine 200 mcg tablet 200 mcg PO DAILY Qty: 90 3RF ibuprofen 400 mg tablet 400 mg PO Q6H PRN (Reason: Pain) Qty: 100 3RF Rx Instructions: if symptoms not resolved in 48 hours contact pcp Gemtesa 75 mg tablet 75 mg PO DAILY fluticasone propionate [Allergy Relief (fluticasone)] 50 mcg/actuation spray,suspension 1 spray intranasal BID PRN (Reason: nasal congestion) Qty: 16 0RF Rx Instructions: administer into each nostril Referrals: Tootie Shannon MD [Primary Care Provider] - Print Language: Latvian
[2025-03-04] MEDS: Haloperidol Lactate 5 MG/ML VIAL IM (16:18)
[2025-03-04] MEDS: diphenhydrAMINE HCL 50 MG/ML VIAL 25 MG IM (16:18)
[2025-03-04] MEDS: Midazolam HCl 2 MG/2 ML VIAL IM (16:18)
--- NOTE | 2025-03-04 16:31 | PC.NURSE ---
Patient is a 69 year old woman with hx of developmental delay, who has resided in a [facility] home for several years. She was brought via EMS from due to sudden onset change in behavior including appearing psychotic and agitated. Patient was aggressive and assaultive to staff and was transported to the hospital. She remains aggressive and assaultive in the department requiring IM medication. Her speech is dysarthric and very incomprehensible. She is consistently irritable and agitated. Patient changed into safety clothing with some difficulty and resistance. She was placed on section 12 by the N in the community and requires an IPLOC. Staff worker in the department. [facility] Medical History Abnormal MRI Post-surgical hypothyroidism History of ESBL E. coli infection Toxic multinodular goiter Toxic multinodular goiter Vitamin D deficiency Hyperthyroidism Multinodular thyroid Colon cancer Lung mass Developmental delay, mild Arthritis
[2025-03-04 16:59] VITALS: BP 114/58; PULSE 87; RESP 14; TEMP 37.8; O2SAT 97
--- OUTSIDE RECORDS SUMMARY | 2025-03-04 17:27 | XMS_ITS | Encounter Summary ---
Author Organization [facility] Address [address] [place] [address] Care Team Providers Care Dairy Science Teacher Name Role Phone Sher Patrick Primary Care Provider [phone] Reason for Visit * Reason Onset Date Comments Needs to reschedule 09/28/2020 Encounter Details Date Type Department Care Team (Late st Contact Info) Description 09/28/2020 Telephone [facility] Central Scheduling Department [address] [place] [address] Telephone Intake, Staff Needs to reschedule Social [...] Description 05/09/2025 2:00 PM EDT Hospital Encounter [facility] Operating Room [address] [place] [address] Catracho Vidal MD MPH [address] [place] [address] 05/12/2025 2:00 PM EDT - 05/12/2025 3:05 PM EDT Surgery [facility] Operating Room [address] [place] [address] Catracho Vidal MD MPH [address] [place] [address] Colonoscopy Screening, High Risk with Possible Moderate Sedation [99473 (CPT??)] Scheduled Procedures Name Priority Associated Diagnoses [...] documented as of this encounter Care Teams Dairy Science Teacher Relationship Specialty Start Date End Date Sher Patrick [address] [place] [address] [place] [address] PCP - General 04/20/17 documented as of this encounter
[2025-03-04 18:01] VITALS: TEMP 37.1
--- NOTE | 2025-03-04 18:02 | PC.NURSE ---
assumed care of patient, patient rectal temp 98.8. patient has bruising in multiple stages of healing on body. patient noted to have dried feces on gluteal folds. staff worker at bedside
[2025-03-04 18:23] LABS: MANUAL DIFF FLAG NO
[2025-03-04 18:29] LABS: Basophils Absolute Auto 0.1 X10*3/uL (0.0-0.2); Basophils Percent Auto 0.4 % (0-2); Eosinophils Absolute Auto 0.1 X10*3/uL (0.0-0.4); Eosinophils Percent Auto 1.1 % (0-4); Hematocrit 29.3 % (37.0-47.0); Hemoglobin 9.5 g/dl (12.0-16.0); Imm Gran Abs Auto 0.04 X10*3/uL (0.00-0.03); Imm Gran Pct Auto 0.3 % (0.0-0.4); Lymphocytes Absolute Auto 1.8 X10*3/uL (1.2-4.9); Lymphocytes Percent Auto 15.5 % (20-40); Mean Corpuscular HGB Conc 32.4 g/dl (31.0-35.0); Mean Corpuscular Hemoglobin 29.1 pg (27.0-33.0); Mean Corpuscular Volume 89.6 fL (80.0-98.0); Mean Platelet Volume 9.2 fL (9.4-12.3); Monocytes Absolute Auto 1.2 X10*3/uL (0.1-1.2); Monocytes Percent Auto 10.1 % (2-11); Neutrophils Absolute Auto 8.4 x10*3/uL (2.0-8.3); Neutrophils Percent Auto 72.6 % (45-73); Platelet Count 270 X10*3/uL (160-400); Red Blood Count 3.27 X10*6/uL (4.20-5.50); Red Cell Distribution Width 14.6 % (11.0-16.0); White Blood Count 11.6 X10*3/uL (4.8-10.8)
--- NOTE | 2025-03-04 18:35 | ECG_ITS ---
Test Reason : MED CLEARANCE Blood Pressure : */* mmHG Vent. Rate : 78 BPM Atrial Rate : 78 BPM P-R Int : 172 ms QRS Dur : 144 ms QT Int : 444 ms P-R-T Axes : 56 -55 43 degrees QTcB Int : 506 ms Normal sinus rhythm Right bundle branch block Left anterior fascicular block Bifascicular block Minimal voltage criteria for LVH, may be normal variant ( R in aVL ) Abnormal ECG When compared with ECG of 28-Feb-2025 10:25, No significant change was found Referred By: Daniela Bautista Electronically Signed By: RAJESH RIZO
[2025-03-04 18:36] LABS: Appearance Urine Clear; Color Urine Yellow; Glucose Urine UA Negative (Negative); Leukocyte Esterase Urine Small (1+) (Negative); Nitrite Urine Negative (Negative); UMIC TRIGGER UACC YES; Urine Blood Negative (Negative); Urine Ketones Trace mg/dL (Negative); Urine Protein 30 (1+) mg/dL (Neg-Trace)
[2025-03-04 18:55] LABS: Acetaminophen LAB < 3 mcg/mL (<30); Salicylate < 5.0 mg/dL (15-30)
[2025-03-04 18:55] LABS: Bacteria Urine None Seen (None Seen); Renal Epithelial Cells Urine Present; Transitional Epi Cells Urine Present; UACC Culture Trigger YES
[2025-03-04 18:55] LABS: Alanine Aminotransferase 29 U/L (0-31); Albumin Level 3.6 g/dL (3.5-5.0); Alkaline Phosphatase 129 U/L (39-117); Anion Gap 11 (12-20); Aspartate Amino Transferase 41 U/L (5-31); Bilirubin Direct 0.2 mg/dL (0.0-0.5); Bilirubin Total 0.4 mg/dL (0.0-1.0); Blood Urea Nitrogen 35 mg/dL (9-16); Calcium 8.8 mg/dL (8.4-10.2); Carbon Dioxide 25 mmol/L (22-29); Chloride 114 mmol/L (96-108); Creatinine Clr Calc Pharmacy 39.1; Estimated Glomerular Filt Rate 57; Ethanol < 10 mg/dL; Glucose Random 87 mg/dL (60-115); Potassium 4.3 mmol/L (3.3-5.1); Sodium 146 mmol/L (135-145); Total Protein 6.7 g/dL (6.5-8.0)
[2025-03-04 19:03] LABS: Influenza A PCR NEGATIVE (Negative); Influenza B PCR NEGATIVE (Negative); Resp Syncy Virus RNA Qual PCR NEGATIVE (Negative); SARS COV2 PCR INHOUSE NEGATIVE (Negative)
--- NOTE | 2025-03-04 19:09 | PC.NURSE ---
this rn assumed care of pt, pt resting in stretcher, machine operator farmworker and sitter at bedside. pt offers no complaints at this time.
--- NOTE | 2025-03-04 19:16 | PHA.MEDREC ---
Pharmacy Consult ? Medication Reconciliation Pharmacy has completed the medication reconciliation.
--- NOTE | 2025-03-04 21:13 | PC.NURSE ---
attempted to admin enema and mirilax, pt refused x3, states she does not need it. provider aware
[2025-03-04 21:43] LABS: Amphetamine Screen Urine Not Detected (Not Detect); Barbiturates, Urine Not Detected (Not Detect); Benzodiazepines Screen Urine POSITIVE (Not Detect); Buprenorphine Scr Not Detected (Not Detect); Cannabinoid Screen Urine Not Detected (Not Detect); Cocaine Screen Urine Not Detected (Not Detect); Fentanyl, urine Not Detected (Not Detect); Methadone Screen, Urine Not Detected (Not Detect); Opiate Screen Urine Not Detected (Not Detect); Oxycodone Screen Urine Not Detected (Not Detect); Phencyclidine Screen Urine Not Detected (Not Detect)
[2025-03-04 21:53] VITALS: BP 154/72; PULSE 70; RESP 18; TEMP 37.3; O2SAT 94
[2025-03-05] MEDS: polyethylene glycoL 3350 17 GM POWD.PACK PO (01:32)
[2025-03-05] MEDS: Sodium Phosphate,Mono-Dibasic 133 ML ENEMA PR (01:32)
--- NOTE | 2025-03-05 01:38 | PC.NURSE ---
pt asked if she had abdominal pain due to yelling from room, pt states she does have pain and agreed to medication. Pt medicated per MAR, pt tolerated well
[2025-03-05 06:07] VITALS: BP 148/75; PULSE 71; RESP 18; TEMP 37.2; O2SAT 97
--- NOTE | 2025-03-05 06:08 | PC.NURSE ---
full bed change, pt had a large bowel movement, continued to have bowel movement after clean up.
[2025-03-05 07:26] VITALS: BP 152/62; PULSE 78; RESP 18; O2SAT 98
--- NOTE | 2025-03-05 10:53 | PC.NURSE ---
Pt cooperative with care at this time; remains hyperverbal; no assaultive behaviours at this time; ER staff and nursing home staff at bedside; bed search continues
--- NOTE | 2025-03-05 13:33 | MHC.CARE ---
Patient was initially seen by BIRD at her alf on 03/04/2025. She is reassessed by the CARE team today and continues to appear to require IPLOC for psychopharm stabilization/ safety/ collaboration with providers such as ARNOLD and her A alf providers . Increased agitation, increasingly physical with staff, noted to not be sleeping at night most nights, refusing medication often.
--- NOTE | 2025-03-05 13:58 | PC.NURSE ---
Pt's med rec. being completed by pharmacy; pt was getting louder and more agitated, but is sleeping at this time; will medicate pt per orders when awake
--- NOTE | 2025-03-05 14:19 | PC.NURSE ---
Pt now awake and violent; pt took PO med and threw it on the floor; pt striking out at staff and yelling racial slurs; made aware; will tx per orders
[2025-03-05] MEDS: diphenhydrAMINE HCL 50 MG/ML VIAL IM (14:34)
[2025-03-05] MEDS: Haloperidol Lactate 5 MG/ML VIAL 10 MG IM (14:34)
[2025-03-05] MEDS: Midazolam HCl 2 MG/2 ML VIAL 4 MG IM (14:34)
[2025-03-05 15:57] VITALS: BP 116/56; PULSE 78; RESP 18; O2SAT 94
--- NOTE | 2025-03-05 15:58 | PC.NURSE ---
Pt currently sleeping after medical restraint initiated; vss; staff present for pt safety; PO meds held at this time secondary to pt's somnolence
--- NOTE | 2025-03-05 19:04 | PC.NURSE ---
Pt too somnolent for PO meds at this time; not gv
[2025-03-05 20:44] VITALS: BP 138/68; PULSE 65; RESP 18; TEMP 37.3; O2SAT 97
--- NOTE | 2025-03-05 20:45 | PC.NURSE ---
incontinent care provided, full bed/linen change, patient is otherwise stable, calm and cooperative at this time, VSS, no signs of distress, no complaints, awaiting bed placement, sitter and staff from [facility] remain at bedside
[2025-03-05] MEDS: Melatonin 3 MG TABLET 9 MG PO (21:08)
[2025-03-05] MEDS: Donepezil HCl 5 MG TABLET PO (21:09)
[2025-03-05] MEDS: carBAMazepine 200 MG TABLET 400 MG PO (21:09)
[2025-03-05] MEDS: Acetaminophen 325 MG TABLET 975 MG PO (21:09)
[2025-03-05] MEDS: Methenamine Hippurate 1 GM TABLET PO (21:09)
[2025-03-05] MEDS: QUEtiapine Fumarate 200 MG TABLET PO (21:09)
[2025-03-05] MEDS: traZODone HCL 100 MG TABLET PO (21:10)
[2025-03-05] MEDS: Ascorbic Acid 500 MG TABLET PO (21:10)
[2025-03-05] MEDS: Docusate Sodium 100 MG CAPSULE PO (21:11)
[2025-03-05 22:27] VITALS: TEMP 36.8
[2025-03-06] VITALS (7 sets, daily range): BP systolic 118–148; BP diastolic 46–68; PULSE 64–85; RESP 13–18; TEMP 36.7–36.8; O2SAT 97–99
--- NOTE | 2025-03-06 06:51 | PC.NURSE ---
report given to LAY James
[2025-03-06] MEDS: Aspirin Enteric Coated 81 MG TABLET.DR PO (08:55)
[2025-03-06] MEDS: Loratadine 10 MG TABLET PO (08:56)
[2025-03-06] MEDS: Docusate Sodium 100 MG CAPSULE PO ×2 (08:56→21:06)
[2025-03-06] MEDS: Methenamine Hippurate 1 GM TABLET PO ×2 (08:56→21:06)
[2025-03-06] MEDS: Tamsulosin HCL 0.4 MG CAPSULE PO (08:56)
[2025-03-06] MEDS: QUEtiapine Fumarate 200 MG TABLET PO ×2 (08:57→21:07)
[2025-03-06] MEDS: Multivitamin TABLET 1 TAB PO (08:57)
[2025-03-06] MEDS: Ascorbic Acid 500 MG TABLET PO ×2 (08:58→21:06)
[2025-03-06] MEDS: Levothyroxine Sodium 200 MCG TABLET PO (08:58)
[2025-03-06] MEDS: carBAMazepine 200 MG TABLET PO (09:04)
--- NOTE | 2025-03-06 09:24 | PC.NURSE ---
69F presents to ED with agressive behavior, vascular dementia. A+Ox1-[address], confused but calm and cooperative at this time. Denies any pain or discomfort at this time. Visible skin intact, took medications 3 at a time this morning whole without difficulty. Sitter in room with patient. Patient is awaiting psych bed.
[2025-03-06] MEDS: cefuroxime axetiL 250 MG TABLET PO ×2 (10:10→21:06)
--- NOTE | 2025-03-06 15:48 | PC.NURSE ---
Pt is calm and cooperative, eating well during meals, sitter at bedside. Pt is currently awaiting a bed. Pt denies any pain. Pt has a purewick in place, draining appropriately. A+Ox1 to self, pleasantly confused. No visible s/s of distress or complaints at this time.
--- NOTE | 2025-03-06 20:00 | PC.NURSE ---
pt alert, verbal. calm cooperative with care, escorted to bathroom, gait unsteady, had a bm. pt denies ESCAMILLA, sob, sitter present. will monitor.
[2025-03-06] MEDS: Donepezil HCl 5 MG TABLET PO (21:06)
[2025-03-06] MEDS: carBAMazepine 200 MG TABLET 400 MG PO (21:06)
[2025-03-06] MEDS: traZODone HCL 100 MG TABLET PO (21:06)
[2025-03-06] MEDS: Melatonin 3 MG TABLET 9 MG PO (21:07)
[2025-03-07 00:19] VITALS: BP 114/55; PULSE 78; RESP 20; TEMP 36.9; O2SAT 97
[2025-03-07 06:34] VITALS: BP 122/53; PULSE 66; RESP 18; TEMP 36.6; O2SAT 99
[2025-03-07] MEDS: Levothyroxine Sodium 200 MCG TABLET PO (06:35)
--- NOTE | 2025-03-07 07:30 | PC.NURSE ---
Assumed care of pt at 0700. Pt resting in bed quietly with eyes closed, respirations even and unlabored, no increased wob/sob noted, appears in no distress, maintaining O2 sats >92% on RA. nursing home staff at bedside, 1:1 sitter also at bedside for safety. Purewick in place- linens dry. Call carrero within reach, all needs met at this time.
[2025-03-07] MEDS: QUEtiapine Fumarate 200 MG TABLET PO ×2 (09:43→20:53)
[2025-03-07] MEDS: Ferrous Sulfate 324 MG TABLET.DR PO (09:43)
[2025-03-07] MEDS: Docusate Sodium 100 MG CAPSULE PO ×2 (09:43→20:53)
[2025-03-07] MEDS: Methenamine Hippurate 1 GM TABLET PO ×2 (09:43→20:53)
[2025-03-07] MEDS: Aspirin Enteric Coated 81 MG TABLET.DR PO (09:43)
[2025-03-07] MEDS: Tamsulosin HCL 0.4 MG CAPSULE PO (09:43)
[2025-03-07] MEDS: cefuroxime axetiL 250 MG TABLET PO ×2 (09:43→20:53)
[2025-03-07] MEDS: Multivitamin TABLET 1 TAB PO (09:44)
[2025-03-07] MEDS: Loratadine 10 MG TABLET PO (09:44)
[2025-03-07] MEDS: Ascorbic Acid 500 MG TABLET PO ×2 (09:44→20:52)
[2025-03-07] MEDS: carBAMazepine 200 MG TABLET PO (09:45)
[2025-03-07 09:48] VITALS: BP 124/64; PULSE 76; RESP 18; TEMP 36.7; O2SAT 97
--- NOTE | 2025-03-07 09:50 | PC.NURSE ---
Pt given morning medications, alert- not oriented. CARE team at bedside for assessment. Pt calm/cooperative with staff, episodes of yelling at times. Vitals updated in NOV. Pt given breakfast tray and cranberry juice. 1:1 sitter at bedside, call carrero within reach, all needs met at this time.
--- NOTE | 2025-03-07 11:29 | P.CNPS_ITS ---
History of Present Illness Date of Service: 03/07/2025 Chief Complaint: SECTION 12 Sources of Information: patient interviewed, chart reviewed and crisis/core team assessment reviewed HPI Narrative: Ms. Ronquillo is a 69 year-old woman with hx of developmental delay, dementia, who resides at a . She was sent to ED due to increase aggression towards staff. At baseline, pt can be demanding and yelling but no physical aggression towards others or herself. Pertinent labs include cbc with chronic normocytic anemia, stable H&H, CMP with elevated BUN 35, Cr 0.96, creatinine clearance 39; UA not suggestive of UTI, but +protein. EKG with RBBB, Left anterior block, Qtc 506. Pt seen this morning. She is somewhat somnolent, open her eyes and kept them open but did not converse much. She said she was cold but did not keep extra clothes that staff was trying to put on, on. She was agitated two nights ago. She appears calmer now. Past Psychiatric History: OP: Tammy Randall past medication trials: abilify, carbamazepine, cogentin [facility] Medical History Developmental delay, moderate Abnormal MRI Post-surgical hypothyroidism History of ESBL E. coli infection Toxic multinodular goiter Vitamin D deficiency Hyperthyroidism Colon cancer Lung mass Developmental delay, mild Arthritis Surgical History History of carpal tunnel surgery of right wrist Hx of total thyroidectomy History of biopsy Hx of colonic polyps Hx of colonoscopy Family History: unknown Trauma History: Not disclosed Diagnostics Vital Signs (24Hr): Vital Signs - 24 hr 03/06/25 13:49 03/06/25 17:49 03/06/25 18:27 Temperature 98.2 F Pulse Rate 81 82 85 Respiratory Rate 13 16 16 Blood Pressure 124/62 138/68 138/68 Pulse Oximetry 97 99 98 Oxygen Delivery Method Room Air Room Air Room Air 03/06/25 22:00 03/07/25 00:19 03/07/25 06:34 Temperature 98.2 F 98.5 F 97.9 F Pulse Rate 85 78 66 Respiratory Rate 15 20 18 Blood Pressure 148/68 H 114/55 L 122/53 L Pulse Oximetry 99 97 99 Oxygen Delivery Method Room Air Room Air Room Air 03/07/25 09:48 Temperature 98.0 F Pulse Rate 76 Respiratory Rate 18 Blood Pressure 124/64 Pulse Oximetry 97 Oxygen Delivery Method Room Air BMI result Body Mass Index 23.4 Labs 03/04/25 18:17 03/04/25 18:17 Mental Status Exam Mental Status Exam Narrative: Pt sitting in bed, no shirt on but has a bra. No NAD. Opened eyes, not talking much. No SI/HI No overt psychosis or delusions Insight/judgment: impaired x 2. Medications Medications Current Medications Acetaminophen (Acetaminophen 325 Mg Tablet) 975 mg PO Q4H PRN PRN Reason: Pain, Moderate(Pain Scale 4-6) Last Admin: 03/05/25 21:09 Dose: 975 mg Ascorbic Acid (Ascorbic Acid 500 Mg Tablet) 500 mg PO BID [facility] Last Admin: 03/07/25 09:44 Dose: 500 mg Aspirin (Aspirin Enteric Coated 81 Mg Tablet.) 81 mg PO DAILY [facility] Last Admin: 03/07/25 09:43 Dose: 81 mg Carbamazepine (Carbamazepine 200 Mg Tablet) 400 mg PO BEDTIME [facility] Last Admin: 03/06/25 21:06 Dose: 400 mg Carbamazepine (Carbamazepine 200 Mg Tablet) 200 mg PO DAILY [facility] Last Admin: 03/07/25 09:45 Dose: 200 mg Cefuroxime Axetil (Cefuroxime Axetil 250 Mg Tablet) 250 mg PO BID [facility] Last Admin: 03/07/25 09:43 Dose: 250 mg Docusate Sodium (Docusate Sodium 100 Mg Capsule) 100 mg PO BID [facility] Last Admin: 03/07/25 09:43 Dose: 100 mg Donepezil HCl (Donepezil Hcl 5 Mg Tablet) 5 mg PO BEDTIME [facility] Last Admin: 03/06/25 21:06 Dose: 5 mg Ferrous Sulfate (Ferrous Sulfate 324 Mg Tablet.) 324 mg PO MOWEFR@0900 [facility] Last Admin: 03/07/25 09:43 Dose: 324 mg Fluticasone Propionate (Fluticasone Propionate Nasal 16 Gm [place]) 1 spray NOSTRIL-B BID PRN PRN Reason: nasal congestion Levothyroxine Sodium (Levothyroxine Sodium 200 Mcg Tablet) 200 mcg PO DAILY@0600 [facility] Last Admin: 03/07/25 06:35 Dose: 200 mcg Loratadine (Loratadine 10 Mg Tablet) 10 mg PO DAILY [facility] Last Admin: 03/07/25 09:44 Dose: 10 mg Melatonin (Melatonin 3 Mg Tablet) 9 mg PO BEDTIME [facility] Last Admin: 03/06/25 21:07 Dose: 9 mg Methenamine Hippurate (Methenamine Hippurate 1 Gm Tablet) 1 gm PO BID [facility] Last Admin: 03/07/25 09:43 Dose: 1 gm Multivitamins/Vitamin C (Multivitamin Tablet) 1 tab PO DAILY [facility] Last Admin: 03/07/25 09:44 Dose: 1 tab Non-Formulary Medication (Imipramine Hcl) 25 mg PO BEDTIME [facility] Non-Formulary Medication (Vibegron [Gemtesa]) 75 mg PO DAILY [facility] Nystatin (Nystatin Powder 15 Gm Bottle) 1 appl TOPICAL BID PRN; Protocol PRN Reason: Rash Quetiapine Fumarate (Quetiapine Fumarate 200 Mg Tablet) 200 mg PO BID [facility] Last Admin: 03/07/25 09:43 Dose: 200 mg Senna (Sennosides 8.6 Mg Tablet) 8.6 mg PO Q48H [facility] Last Admin: 03/05/25 19:04 Dose: Not Given Tamsulosin HCl (Tamsulosin Hcl 0.4 Mg Capsule) 0.4 mg PO DAILY [facility] Last Admin: 03/07/25 09:43 Dose: 0.4 mg Trazodone HCl (Trazodone Hcl 100 Mg Tablet) 100 mg PO BEDTIME [facility] Last Admin: 03/06/25 21:06 Dose: 100 mg Triamcinolone Acetonide (Triamcinolone Acet 0.5 % Oint 15 Gm Tube) 1 appl TOPICAL BID PRN PRN Reason: Dry areas on hand Triamcinolone Acetonide (Triamcinolone Acet 0.1 % Oint 15 Gm Tube) 1 appl TOPICAL BID PRN PRN Reason: Skin Irritation Allergies Allergies Allergy/AdvReac Type Severity Reaction Status Date / Time adhesive tape Allergy Intermediate itching Verified 03/04/25 15:49 and skin redness latex Allergy Intermediate skin rash Verified 03/04/25 15:49 and itching Seasonal Allergies Allergy Itching Verified 03/04/25 15:49 weed pollen Allergy stuffy nose Verified 03/04/25 15:49 DUST Allergy Unknown ITCHY/WATERY Uncoded 02/21/25 15:14 EYES surgical paper tape Allergy Unknown rash Uncoded 02/21/25 15:14 Tide Allergy Unknown rash Uncoded 02/21/25 15:14 Assessment & Plan Assessment & Plan (1) Developmental delay, moderate: Status: Acute Code(s): R62.50 - Unspecified lack of expected normal physiological development in childhood (2) Dementia: Status: Acute Code(s): F03.90 - Unspecified dementia, unspecified severity, without behavioral disturbance, psychotic disturbance, mood disturbance, and anxiety (3) Mood disorder: Status: Acute Code(s): F39 - Unspecified mood [affective] disorder Plan Ms. Ronquillo is a 69 year-old woman with hx of developmental delay, dementia who lives at . She was brought to [facility] ED due to aggressive behaviors towards staff. At baseline, pt does yell at people and has low frustration tolerance but not aggressive. PLAN 1. Increase seroquel 200mg po BID with additional dose of 100mg po at noon. Monitor EKG, maintain Qtc<500ms (may need to correct Qtc base due to RBBB), K>4, Mg>2. 2. if calmer and no aggression in last 24 hrs, should consider sending back to to continue OP tx. Total time managing care of this patient today ____ minutes.
[2025-03-07] MEDS: Acetaminophen 325 MG TABLET 975 MG PO (11:30)
[2025-03-07 13:08] LABS: Alanine Aminotransferase 26 U/L (0-31); Albumin Level 2.9 g/dL (3.5-5.0); Alkaline Phosphatase 106 U/L (39-117); Anion Gap 9 (12-20); Aspartate Amino Transferase 35 U/L (5-31); Bilirubin Total 0.4 mg/dL (0.0-1.0); Blood Urea Nitrogen 23 mg/dL (9-16); Calcium 8.2 mg/dL (8.4-10.2); Carbon Dioxide 28 mmol/L (22-29); Chloride 111 mmol/L (96-108); Creatinine Clr Calc Pharmacy 40.4; Estimated Glomerular Filt Rate 60; Glucose Random 103 mg/dL (60-115); Potassium 3.7 mmol/L (3.3-5.1); Sodium 144 mmol/L (135-145)
--- NOTE | 2025-03-07 15:16 | PC.NURSE ---
Pt resting with eyes closed, respirations even and unlabored. Lethargic/drowsy. Unable to medicate d/t inability to safely swallow pills d/t drowsiness. Will reattempt later. MD aware. Call carrero within reach, all needs met at this time.
[2025-03-07] MEDS: traZODone HCL 100 MG TABLET PO (20:52)
[2025-03-07] MEDS: Donepezil HCl 5 MG TABLET PO (20:52)
[2025-03-07] MEDS: Melatonin 3 MG TABLET 9 MG PO (20:53)
[2025-03-07] MEDS: carBAMazepine 200 MG TABLET 400 MG PO (20:53)
[2025-03-07 22:00] VITALS: BP 119/44; PULSE 86; RESP 16; TEMP 36.3; O2SAT 96
[2025-03-08] MEDS: Levothyroxine Sodium 200 MCG TABLET PO (07:28)
--- NOTE | 2025-03-08 07:30 | PC.NURSE ---
Addendum entered by Celia Bae RN 03/08/25 07:32: Patient is a 69 year-old woman with hx of developmental delay, dementia who lives at . She was brought to [facility] ED due to aggressive behaviors towards staff. At baseline, pt does yell at people and has low frustration tolerance but not aggressive. Upon arrival to the ED, patient was aggressive, combative and uncooperative. Patient resting comfortably at this time. emergency worker at the bedside. Respirations even and non-labored. Abdomen soft, non-tender with positive bowel sounds. No distress noted at this time. PLAN 1. Increase seroquel 200mg po BID with additional dose of 100mg po at noon. Monitor EKG, maintain Qtc<500ms (may need to correct Qtc base due to RBBB), K>4, Mg>2. 2. if calmer and no aggression in last 24 hrs, should consider sending back to to continue OP tx. Original Note: Medical History Developmental delay, moderate Abnormal MRI Post-surgical hypothyroidism History of ESBL E. coli infection Toxic multinodular goiter Vitamin D deficiency Hyperthyroidism Colon cancer Lung mass Developmental delay, mild Arthritis
[2025-03-08] MEDS: Tamsulosin HCL 0.4 MG CAPSULE PO (08:39)
[2025-03-08] MEDS: Methenamine Hippurate 1 GM TABLET PO ×2 (08:39→22:08)
[2025-03-08] MEDS: Loratadine 10 MG TABLET PO (08:39)
[2025-03-08] MEDS: QUEtiapine Fumarate 200 MG TABLET PO ×2 (08:39→22:17)
[2025-03-08] MEDS: Multivitamin TABLET 1 TAB PO (08:40)
[2025-03-08] MEDS: Ascorbic Acid 500 MG TABLET PO ×2 (08:40→22:07)
[2025-03-08] MEDS: cefuroxime axetiL 250 MG TABLET PO ×2 (08:40→22:09)
[2025-03-08] MEDS: Docusate Sodium 100 MG CAPSULE PO ×2 (08:40→22:08)
[2025-03-08] MEDS: Aspirin Enteric Coated 81 MG TABLET.DR PO (08:40)
[2025-03-08] MEDS: carBAMazepine 200 MG TABLET PO (08:41)
[2025-03-08 10:12] VITALS: RESP 18
--- NOTE | 2025-03-08 11:38 | MHC.CARE ---
CARE SW went to meet with Patient who was asleep. A staff from Pt's retirement was sitting with Pt and stated that she has been asleep and non engaged since this morning. A psych consult was conducted on 03/07 where it was recommended that her Seroquel be increased.
[2025-03-08 15:42] VITALS: BP 128/53; PULSE 70; RESP 16; O2SAT 95
--- NOTE | 2025-03-08 17:53 | MHC.EDTECH ---
Patient freshened up, changed, and repositioned
--- NOTE | 2025-03-08 19:24 | PC.NURSE ---
Pt c/o L arm pain and swelling, new from earlier today. Swelling extends from L hand to elbow; MD aware and @ bedside, awaiting orders.
[2025-03-08] MEDS: traZODone HCL 100 MG TABLET PO (22:07)
[2025-03-08] MEDS: carBAMazepine 200 MG TABLET 400 MG PO (22:07)
[2025-03-08] MEDS: Melatonin 3 MG TABLET 9 MG PO (22:08)
[2025-03-08] MEDS: Donepezil HCl 5 MG TABLET PO (22:10)
[2025-03-08] MEDS: Acetaminophen 325 MG TABLET 975 MG PO (22:12)
--- NOTE | 2025-03-08 23:04 | PC.NURSE ---
assumed care of the patient at 23:00. report received from Carla CHUN
[2025-03-09 06:08] VITALS: RESP 16
--- NOTE | 2025-03-09 06:11 | PC.NURSE ---
pt now sleeping comfortably on stretcher , no apparent distress noted. 1:1 sitter at bedside. plan of care ongoing.
[2025-03-09] MEDS: Docusate Sodium 100 MG CAPSULE PO ×2 (09:08→20:46)
[2025-03-09] MEDS: Aspirin Enteric Coated 81 MG TABLET.DR PO (09:08)
[2025-03-09] MEDS: cefuroxime axetiL 250 MG TABLET PO ×2 (09:08→20:47)
[2025-03-09] MEDS: Loratadine 10 MG TABLET PO (09:08)
[2025-03-09] MEDS: Tamsulosin HCL 0.4 MG CAPSULE PO (09:08)
[2025-03-09] MEDS: Methenamine Hippurate 1 GM TABLET PO ×2 (09:09→20:47)
[2025-03-09] MEDS: Ascorbic Acid 500 MG TABLET PO ×2 (09:09→20:46)
[2025-03-09] MEDS: QUEtiapine Fumarate 200 MG TABLET PO ×2 (09:09→20:47)
[2025-03-09] MEDS: carBAMazepine 200 MG TABLET PO (09:09)
[2025-03-09] MEDS: Levothyroxine Sodium 200 MCG TABLET PO (09:09)
[2025-03-09] MEDS: Multivitamin TABLET 1 TAB PO (09:09)
[2025-03-09 09:43] VITALS: BP 130/80; PULSE 80; RESP 15; TEMP 36.9; O2SAT 99
[2025-03-09] MEDS: QUEtiapine Fumarate 100 MG TABLET PO (13:16)
--- NOTE | 2025-03-09 15:42 | MHC.CARE ---
Patient reassessed by the CARE Team, she continues to need inpatient psychiatric treatment, will be monitored for effects of new medication started today.
[2025-03-09 18:55] VITALS: BP 136/76; PULSE 73; RESP 18; O2SAT 99
--- NOTE | 2025-03-09 19:01 | PC.NURSE ---
this rn assumed care of pt, pt resting in stretcher, no acute distress noted. 1:1 sitter and worker at bedside
[2025-03-09] MEDS: Melatonin 3 MG TABLET 9 MG PO (20:46)
[2025-03-09] MEDS: traZODone HCL 100 MG TABLET PO (20:47)
[2025-03-09] MEDS: Donepezil HCl 5 MG TABLET PO (20:47)
[2025-03-09] MEDS: carBAMazepine 200 MG TABLET 400 MG PO (20:47)
--- NOTE | 2025-03-09 20:50 | PC.NURSE ---
medicated per NOV, pt took meds with juice and no issues.
--- NOTE | 2025-03-09 22:07 | PC.NURSE ---
pt noted to have a stage 1/2 wound on buttox. abelardo marroquin aware, wound care consult placed. pink barrier pad placed on buttox and pillows placed. some bruising noted as well.
[2025-03-09] MEDS: Acetaminophen 325 MG TABLET 975 MG PO (22:25)
--- NOTE | 2025-03-09 22:27 | PC.NURSE ---
pt has fever, given PRN Tylenol, Patricia aware, pt tolerated well.
[2025-03-10] MEDS: Levothyroxine Sodium 200 MCG TABLET PO (06:21)
[2025-03-10 06:35] VITALS: BP 126/58; PULSE 63; RESP 16; TEMP 36.9; O2SAT 99
[2025-03-10] MEDS: Loratadine 10 MG TABLET PO (08:38)
[2025-03-10] MEDS: Aspirin Enteric Coated 81 MG TABLET.DR PO (08:38)
[2025-03-10] MEDS: Ferrous Sulfate 324 MG TABLET.DR PO (08:38)
[2025-03-10] MEDS: carBAMazepine 200 MG TABLET PO (08:38)
[2025-03-10] MEDS: Tamsulosin HCL 0.4 MG CAPSULE PO (08:38)
[2025-03-10] MEDS: Methenamine Hippurate 1 GM TABLET PO (08:38)
[2025-03-10] MEDS: cefuroxime axetiL 250 MG TABLET PO (08:39)
[2025-03-10] MEDS: QUEtiapine Fumarate 200 MG TABLET PO (08:39)
[2025-03-10] MEDS: Multivitamin TABLET 1 TAB PO (08:39)
[2025-03-10] MEDS: QUEtiapine Fumarate 100 MG TABLET PO (08:39)
[2025-03-10] MEDS: Docusate Sodium 100 MG CAPSULE PO (08:39)
[2025-03-10] MEDS: Ascorbic Acid 500 MG TABLET PO (08:39)
--- NOTE | 2025-03-10 08:44 | PC.NURSE ---
This Rn assumed care of patient @ 0700. Patient alert and responsive. Telemonitor in place, [facility] sitter in place and staff sitting at bedside. Denies pain. Denies SOB. PAtient tolerated medication administration. Takes pills whole with cranberry juice. No aggressive behaviors noted at this time. VSS and up to date. Patient on bed search at this time. Plan of care on going
--- NOTE | 2025-03-10 12:32 | MHC.CARE ---
Pt seen by CARE team, psych consult done as well by hospital psychiatry team recommendation is for patient will be discharged back to snf.
[2025-03-10 13:25] VITALS: BP 134/82; PULSE 78; RESP 18; TEMP 37; O2SAT 96
--- NOTE | 2025-03-10 13:29 | PC.NURSE ---
Seroquel not given, d/t patient being discharged at this time
[2025-03-10 13:30] VITALS: BP 134/82; PULSE 78; RESP 18; TEMP 37; O2SAT 96
--- NOTE | 2025-03-10 13:35 | PC.NURSE ---
attempted to call RN-RN report, plan for pt to transport w [facility] worker at bedside.
--- NOTE | 2025-03-10 13:36 | PC.NURSE ---
Multiple attempts to reach correction to arrange transport for patient. custodial Sitter at bedside willing to drive patient home. Patient assisted to vehicle by [facility] staff.
== END 2025-03-10 13:38 | disposition home or self-care (01) ==
PROVIDERS: Emergency Medicine Emergency Medical Services; Social Worker; Emergency Provider Emergency Medicine Emergency Medical Services; PCP Internal Medicine
DX: R45.6 Violent behavior (principal); F81.9 Developmental disorder of scholastic skills, unspecified; F01.511 Vascular dementia, unspecified severity, with agitation; F39 Unspecified mood [affective] disorder; K59.00 Constipation, unspecified; M79.89 Other specified soft tissue disorders; E86.0 Dehydration; I45.2 Bifascicular block; R06.02 Shortness of breath; S70.01XA Contusion of right hip, initial encounter; X58.XXXA Exposure to other specified factors, initial encounter; Y93.9 Activity, unspecified; Y92.9 Unspecified place or not applicable; Y99.9 Unspecified external cause status; Z03.818 Encounter for observation for suspected exposure to other biological agents ruled out; Z79.899 Other long term (current) drug therapy; Z79.82 Long term (current) use of aspirin
CPT/HCPCS: 0241U; 36415; 70450; 71045; 72125; 74176; 80048; 80053; 80076; 80143; 80179; 80307; 81001; 82550; 85025; 87086; 93005; 93971; 96372; 99285; J1200; J1630; J2250; S9485

== ENCOUNTER → 2025-03-04 17:19 | Outpatient (BNV) | payer MEDICARE, MEDICAID, SELFPAY | PROVIDERS: Emergency Provider Emergency Medicine Emergency Medical Services; PCP Internal Medicine; Visit Provider Social Worker | DX: F03.90 Unspecified dementia, unspecified severity, without behavioral disturbance, psychotic disturbance, mood disturbance, and anxiety (principal); R62.50 Unspecified lack of expected normal physiological development in childhood; F39 Unspecified mood [affective] disorder | CPT/HCPCS: 99285 ==

== ENCOUNTER → 2025-03-04 18:04 | Outpatient (BNV) | payer MEDICARE, MEDICAID, SELFPAY | PROVIDERS: Emergency Provider Emergency Medicine Emergency Medical Services; PCP Internal Medicine; Visit Provider Student in an Organized Health Care Education/Training Program | DX: K56.41 Fecal impaction (principal); R19.07 Generalized intra-abdominal and pelvic swelling, mass and lump; M47.812 Spondylosis without myelopathy or radiculopathy, cervical region; R41.82 Altered mental status, unspecified; R91.8 Other nonspecific abnormal finding of lung field | CPT/HCPCS: 70450; 71045; 72125; 74176 ==

== ENCOUNTER → 2025-03-04 18:35 | Outpatient (BNV) | payer MEDICARE, MEDICAID, SELFPAY | PROVIDERS: Emergency Provider Emergency Medicine Emergency Medical Services; PCP Internal Medicine; Visit Provider Internal Medicine | DX: I45.2 Bifascicular block (principal) | CPT/HCPCS: 93010 ==

== ENCOUNTER → 2025-03-08 19:20 | Outpatient (BNV) | payer MEDICARE, MEDICAID, SELFPAY | PROVIDERS: Emergency Provider Emergency Medicine Emergency Medical Services; PCP Internal Medicine; Visit Provider Radiology Diagnostic Radiology | DX: R22.42 Localized swelling, mass and lump, left lower limb (principal) | CPT/HCPCS: 93971 ==

== ENCOUNTER 2025-03-10 19:31 | Inpatient (IN) | payer MEDICARE, MEDICAID, SELFPAY ==
[2025-03-10 19:43] VITALS: BP 116/80; BP 132/78; PULSE 84; PULSE 86; PULSE 95; RESP 16; RESP 20; TEMP 36.8; TEMP 37.4; O2SAT 96; O2SAT 98; BMI 23.5
--- NOTE | 2025-03-10 19:50 | PC.NURSE ---
pt biba, pt as seen by provider Avinash upon arrival, stroke alert not called. cash checker aware. Worker from facility in waiting room, waiting to be let in.
--- NOTE | 2025-03-10 20:02 | ED_ITS ---
HPI - Psych General Chief Complaint: Psychiatric Symptoms Stated Complaint: acute stroke screening L side weakness Time Seen by Provider: 03/10/25 20:01 Source: EMS Mode of arrival: EMS Limitations: other (Agitated) History of Present Illness ED Provider: HPI Narrative: Patient is 69 years old with history of developmental delay, dementia lives in nursing home was seen here earlier today and discharge back to group for increased agitation with advised to increase the dose of Seroquel 200 mg twice a day and take extra dose of 100 mg at noon time patient's came back with a an hours of stinging nursing home as she is very agitated and nursing home can not manage her Related Data Home Medications ?Medication ?Instructions ?Recorded ?Confirmed nystatin 100,000 unit/gram topical 1 appl topical BID PRN Rash 01/05/21 03/12/25 powder triamcinolone acetonide 0.1 % 1 appl topical BID PRN Skin 01/24/23 03/12/25 topical ointment Irritation melatonin 10 mg tablet 10 mg PO BEDTIME 05/10/23 03/12/25 ascorbic acid (vitamin C) 500 mg 500 mg PO BID 03/13/24 03/12/25 tablet (Vitamin C) betamethasone dipropionate 0.05 % 1 appl topical BID PRN Dry areas 03/13/24 03/12/25 topical ointment on hand zinc oxide-vitamin B5-vit E 11.3% 1 appl topical BID Rash 03/13/24 03/12/25 topical cream (Balmex [facility]) vibegron 75 mg tablet (Gemtesa) 75 mg PO DAILY 01/31/25 03/12/25 carbamazepine 200 mg tablet 200 mg PO DAILY 02/21/25 03/12/25 quetiapine 50 mg tablet 50 mg PO BID PRN Agitation 02/21/25 03/12/25 acetaminophen 500 mg tablet 500 mg PO Q4H PRN fever or pain 03/04/25 03/12/25 ferrous sulfate 325 mg (65 mg 325 mg PO MOWEFR@0900 03/04/25 03/12/25 iron) tablet (FeroSul) quetiapine 200 mg tablet (Seroquel) 200 mg PO BID 03/04/25 03/12/25 tamsulosin 0.4 mg capsule 0.4 mg PO DAILY 03/04/25 03/12/25 dextromethorphan-guaifenesin 10 10 ml PO QID PRN Cough 03/12/25 03/12/25 mg-100 mg/5 mL oral liquid (Guaifenesin-DM) levothyroxine 200 mcg tablet 200 mcg PO DAILY@0600 03/12/25 03/12/25 quetiapine 100 mg tablet 100 mg PO DAILY@1200 03/12/25 03/12/25 Previous Rx's ?Medication ?Instructions ?Recorded carbamazepine 200 mg tablet 400 mg (2 x 200 mg) PO BEDTIME #60 09/23/24 tabs donepezil 5 mg tablet 5 mg PO BEDTIME #30 tabs 09/23/24 trazodone 100 mg tablet 100 mg PO BEDTIME #30 tabs 09/23/24 aspirin 81 mg tablet,delayed 81 mg PO DAILY #90 tabs 12/19/24 release docusate sodium 100 mg capsule 100 mg PO BID #180 caps 12/19/24 ibuprofen 400 mg tablet 400 mg PO Q6H PRN Pain #100 tabs 12/19/24 loratadine 10 mg tablet 10 mg PO DAILY #90 tabs 12/19/24 multivitamin 1 tab PO DAILY #90 tabs 12/19/24 sennosides 8.6 mg tablet (Senna 8.6 mg PO Q48H constipation #45 12/19/24 Lax) tabs Icy Hot Pain Relieving 2.5 % 1 appl topical BID #70.8 grams 01/13/25 topical gel (menthol) fluticasone propionate 50 1 spray intranasal BID PRN nasal 01/31/25 mcg/actuation nasal congestion #16 grams spray,suspension (Allergy Relief (fluticasone)) methenamine hippurate 1 gram tablet 1 g PO BID #180 tabs 01/31/25 Allergies Allergy/AdvReac Type Severity Reaction Status Date / Time adhesive tape Allergy Intermediate itching Verified 03/10/25 19:48 and skin redness latex Allergy Intermediate skin rash Verified 03/10/25 19:48 and itching Seasonal Allergies Allergy Itching Verified 03/10/25 19:48 weed pollen Allergy stuffy nose Verified 03/10/25 19:48 DUST Allergy Unknown ITCHY/WATERY Uncoded 03/10/25 19:48 EYES surgical paper tape Allergy Unknown rash Uncoded 03/10/25 19:48 Tide Allergy Unknown rash Uncoded 03/10/25 19:48 Review of Systems 2 Review of Systems: Yes Unobtainable due to mental status PMFSH Past Medical History Medical History Developmental delay, moderate Abnormal MRI Post-surgical hypothyroidism History of ESBL E. coli infection Toxic multinodular goiter Vitamin D deficiency Hyperthyroidism Colon cancer Lung mass Developmental delay, mild Arthritis Surgical History History of carpal tunnel surgery of right wrist Hx of total thyroidectomy History of biopsy Hx of colonic polyps Hx of colonoscopy Family History Family History Father No problems noted. 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 Household Members Other:: gr home Housing: Other Housing Other:: nursing home Unable to assess alcohol history related to: Unknown Alcohol intake: never Patient Tobacco Use Status: Never used Tobacco Smoked in Last 30 Days: No e-Cigarette/Vaping Use: Never Used Second Hand Smoke Exposure: No Use of substances other than those prescribed or required for medical reasons: No Advance Directives: Yes Advance Directives on File: Yes Advance Directives Date on File: 01/05/21 service: No Current occupational status: disabled Current occupation: right handed Cognitive needs: Yes (walker) Hearing needs: No Vision needs: Yes (rx glasses) Physical Exam 2 Vital Signs: Vital Signs: Last Vital Signs Temp 98.1 F 03/12/25 22:00 Pulse 79 03/12/25 22:00 Resp 16 03/12/25 22:00 BP 149/70 H 03/12/25 22:00 Pulse Ox 98 03/12/25 22:00 O2 Del Method Room Air 03/12/25 22:00 BMI result Body Mass Index 23.5 Appearance: Alert. Agitated shouting No acute distress. Eyes: PERRLA, No Nystagmus ENT: Pharynx normal. Oral Mucosa moist Neck: Normal inspection. Neck supple. CVS: Normal heart rate and rhythm. Pulses normal. Respiratory: No respiratory distress. Equal air entry bilateral, no wheezing/rales/rhonchi Abdomen: Soft and nontender. Bowel sounds are present, no mass palpable, no CVA tenderness Skin: Skin warm and dry. Normal skin color. Normal skin turgor. Extremities: No lower extremity edema. No calf tenderness Neuro: Alert and awake moving all 4 extremities Course Course Course Narrative: patient was agitated overnight I saw Sakina RAMIREZ reccs from 03/07 I have ordered her seroquel 200mg BID and 100mg at noon, she responded well and has been calm and quiet MICHELLE 03/11/25 655am Time: 10:00AM Date: 03/11/25 Provider: PAYTON Mckeon Patient in physician observation for psychiatric evaluation.? Patient yelling, screaming, not directable, grabbing at me during assessment, due to keep safety concerns, patient was medicated with IM Haldol 50mg IM, Benadryl 50mg IM, and Versed 4mg IM. Discussed with my attending physician, Dr. Carpenter who agrees with course. We will continue to monitor Time: 13:54 Date: 03/12/25 Provider: Erich Carpenter MD Patient in physician observation for psychiatric evaluation.?Patient was re- evaluated with by the CARE team In will remain in the ED until appropriate [facility] psychiatric bed can be obtained. No acute events reported overnight. No current complaints. VS stable. Will continue to monitor. Reevaluation(s) Reevaluation #1: Time: 07:57 Date: 03/13/25 Provider: Shawanda Gagnon DO Patient in physician observation for psychiatric evaluation.? No acute events reported overnight. No current complaints. VS stable.? Patient is in bed search status. NO IM medications given overnight. Will continue to monitor. Reevaluation #2: Time: 14:55 Date: 03/13/25 Provider: Shawanda Gagnon DO Physician observation ended at 255pm Patient to be admitted as inpatient to psychiatry Medications Administered Generic Name Dose Route Start Last Admin Trade Name Freq PRN Reason Stop Dose Admin Ascorbic Acid 500 mg 03/13/25 09:00 03/13/25 09:01 Ascorbic Acid 500 Mg Tablet PO 500 mg BID DANA Administration Aspirin 81 mg 03/13/25 09:00 03/13/25 09:01 Aspirin Enteric Coated 81 Mg Tablet. PO 81 mg DAILY DANA Administration Carbamazepine 200 mg 03/13/25 09:00 03/13/25 09:01 Carbamazepine 200 Mg Tablet PO 200 mg DAILY DANA Administration Docusate Sodium 100 mg 03/13/25 09:00 03/13/25 09:01 Docusate Sodium 100 Mg Capsule PO 100 mg BID DANA Administration Levothyroxine Sodium 200 mcg 03/13/25 08:00 03/13/25 09:02 Levothyroxine Sodium 200 Mcg Tablet PO 200 mcg DAILY@0600 DANA Administration Loratadine 10 mg 03/13/25 09:00 03/13/25 09:01 Loratadine 10 Mg Tablet PO 10 mg DAILY DANA Administration Methenamine Hippurate 1 gm 03/13/25 09:00 03/13/25 09:01 Methenamine Hippurate 1 Gm Tablet PO 1 gm BID DANA Administration Multivitamins/Vitamin C 1 tab 03/13/25 09:00 03/13/25 09:01 Multivitamin Tablet PO 1 tab DAILY DANA Administration Olanzapine 10 mg 03/11/25 17:02 03/13/25 09:19 Olanzapine Odt 10 Mg Tab.Rapdis TRANSLINGU 10 mg Q6H PRN Administration agitation Quetiapine Fumarate 200 mg 03/11/25 05:30 03/13/25 09:01 Quetiapine Fumarate 200 Mg Tablet PO 200 mg BID DANA Administration Quetiapine Fumarate 100 mg 03/12/25 12:00 03/13/25 12:34 Quetiapine Fumarate 100 Mg Tablet PO 100 mg DAILY@1200 DANA Administration Senna 8.6 mg 03/13/25 08:00 03/13/25 09:01 Sennosides 8.6 Mg Tablet PO 8.6 mg Q48H DANA Administration Tamsulosin HCl 0.4 mg 03/13/25 09:00 03/13/25 09:01 Tamsulosin Hcl 0.4 Mg Capsule PO 0.4 mg DAILY DANA Administration Discontinued Medications Generic Name Dose Route Start Last Admin Trade Name Freq PRN Reason Stop Dose Admin Diphenhydramine HCl 50 mg 03/11/25 09:50 03/11/25 10:15 Diphenhydramine Hcl 50 Mg/Ml Vial IVPUSH 03/11/25 09:51 50 mg ONCE ONE Administration Haloperidol Lactate 10 mg 03/11/25 09:50 03/11/25 10:15 Haloperidol Lactate 5 Mg/Ml Vial IM 03/11/25 09:51 10 mg ONCE ONE Administration Ibuprofen 400 mg 03/12/25 10:12 03/12/25 10:43 Ibuprofen 400 Mg Tablet PO 03/12/25 10:13 400 mg ONCE ONE Administration Lidocaine 1 patch 03/11/25 03:39 03/11/25 03:45 Lidocaine 4 % Patch Adh..Patch TRANSDERMA 03/11/25 03:40 1 patch ONCE ONE Administration Protocol Midazolam HCl 1 mg 03/11/25 00:37 03/11/25 00:56 Midazolam Hcl 2 Mg/2 Ml Vial IM 03/11/25 00:38 1 mg ONCE ONE Administration Midazolam HCl 4 mg 03/11/25 09:50 03/11/25 10:15 Midazolam Hcl 2 Mg/2 Ml Vial IVPUSH 03/11/25 09:51 4 mg ONCE ONE Administration Olanzapine 5 mg 03/10/25 22:04 03/10/25 22:28 Olanzapine 5 Mg Tablet PO 03/10/25 22:05 5 mg ONCE ONE Administration Quetiapine Fumarate 200 mg 03/10/25 20:03 03/10/25 20:14 Quetiapine Fumarate 200 Mg Tablet PO 03/10/25 20:04 200 mg ONCE ONE Administration Quetiapine Fumarate 100 mg 03/11/25 12:00 03/12/25 10:43 Quetiapine Fumarate 100 Mg Tablet PO Not Given DAILY DANA Trazodone HCl 100 mg 03/10/25 20:03 03/10/25 20:14 Trazodone Hcl 100 Mg Tablet PO 03/10/25 20:04 100 mg ONCE ONE Administration Medical Decision Making Medical Decision Making MDM Narrative: Patient with increased aggression with history of developmental delay and dementia unable to be placed in nursing home will consult psychiatrist for re- evaluation and further management Lab Data 03/11/25 20:17 03/11/25 20:17 Labs: Lab Results 03/11/25 03/11/25 Range/Units 20:17 22:35 WBC 7.1 (4.8-10.8) X10*3/uL RBC 3.24 L (4.20-5.50) X10*6/uL Hgb 9.4 L (12.0-16.0) g/dl Hct 29.6 L (37.0-47.0) % MCV 91.4 (80.0-98.0) fL MCH 29.0 (27.0-33.0) pg MCHC 31.8 (31.0-35.0) g/dl RDW 14.6 (11.0-16.0) % Plt Count 274 (160-400) X10*3/uL MPV 8.7 L (9.4-12.3) fL Immature Gran % (Auto) 0.4 (0.0-0.4) % Neut % (Auto) 57.8 (45-73) % Lymph % (Auto) 26.4 (20-40) % [place] % (Auto) 11.1 H (2-11) % Eos % (Auto) 3.7 (0-4) % Baso % (Auto) 0.6 (0-2) % Lymph # (Auto) 1.9 (1.2-4.9) X10*3/uL [place] # (Auto) 0.8 (0.1-1.2) X10*3/uL Eos # (Auto) 0.3 (0.0-0.4) X10*3/uL Baso # (Auto) 0.0 (0.0-0.2) X10*3/uL Abs Immat Gran (auto) 0.03 (0.00-0.03) X10*3/uL Absolute Neuts (auto) 4.1 (2.0-8.3) x10*3/uL Absolute Nucleated RBC 0.000 (0.0-0.012) X10*3/uL Nucleated RBC % (auto) 0.0 (0.0-0.2) /100WBC Sodium 143 (135-145) mmol/L Potassium 3.9 (3.3-5.1) mmol/L Chloride 110 H (96-108) mmol/L Carbon Dioxide 28 (22-29) mmol/L Anion Gap 9 L (12-20) BUN 21 H (9-16) mg/dL Creatinine 0.89 (0.5-1.4) mg/dL Estim Creat Clear Calc 52.9 Estimated GFR > 60 Random Glucose 120 H (60-115) mg/dL Calcium 8.0 L (8.4-10.2) mg/dL Urine Color Yellow Urine Appearance Cloudy Urine pH 6.5 (5.0-9.0) Ur Specific [place] 1.020 (1.005-1.025) Urine Protein 30 (1+) H (Neg-Trace) mg/dL Urine Glucose (UA) Negative (Negative) mg/dL Urine Ketones Negative (Negative) mg/dL Urine Blood Negative (Negative) Urine Nitrite Positive H (Negative) Ur Leukocyte Esterase Large (3+) H (Negative) Urine RBC 0-2 (0-2) /HPF Urine WBC >50 H (0-5) /HPF Ur Squamous Epith Cells 6-10 (0-2) /HPF Urine Bacteria None Seen (None Seen) Hyaline Casts 0-2 (0-2) /LPF Urine Opiates Screen Not Detected (Not Detect) Ur Buprenorphine Scrn Not Detected (Not Detect) ng/mL Ur Oxycodone Screen Not Detected (Not Detect) ng/mL Urine Methadone Screen Not Detected (Not Detect) ng/mL Urine Fentanyl Screen Not Detected (Not Detect) Ur Barbiturates Screen Not Detected (Not Detect) Ur Phencyclidine Scrn Not Detected (Not Detect) Ur Amphetamines Screen Not Detected (Not Detect) U Benzodiazepines Scrn POSITIVE H (Not Detect) Urine Cocaine Screen Not Detected (Not Detect) U Marijuana (THC) Screen Not Detected (Not Detect) Discharge Plan Discharge Clinical Impression: Developmental delay, moderate, Dementia Patient Disposition: Admitted As Inpatient Interventions: [place]-Suicide Risk Severity Scale Last Done: 03/10/25 19:52 Admission Worksheet (ED) Last Done: 03/13/25 14:47 Discharge Date/Time: 03/13/25 14:48
[2025-03-10] MEDS: traZODone HCL 100 MG TABLET PO (20:14)
[2025-03-10] MEDS: QUEtiapine Fumarate 200 MG TABLET PO (20:14)
--- NOTE | 2025-03-10 21:23 | MHC.CARE ---
Contcted [facility] as the EMS report indicated that pt was seen by crisis in the community who was recommending a higher level of care. Aysha from [facility] crisis indicated that they did go out and evaluate the pt however, they did NOT recommend a higher level of care and denied contacting EMS for her to present to the ED. She stated that she will send the evaluation for additional collateral if helpful however, she was cleared pending the evaluation that occurred in the community. RN notified.
[2025-03-10] MEDS: OLANZapine 5 MG TABLET PO (22:28)
--- NOTE | 2025-03-10 23:05 | MHC.EDTECH ---
The patient was cleaned up, changed into mesh panties with a pure wick placed. The patient is agitated and refusing to change into a judy negron RN aware
[2025-03-11] VITALS (11 sets, daily range): BP systolic 115–122; BP diastolic 49–80; PULSE 67–84; RESP 15–22; TEMP 36.3–37.1; O2SAT 93–98
--- NOTE | 2025-03-11 | ECG_ITS ---
Test Reason : QTC CHECK Blood Pressure : */* mmHG Vent. Rate : 68 BPM Atrial Rate : 68 BPM P-R Int : 174 ms QRS Dur : 154 ms QT Int : 452 ms P-R-T Axes : 44 -50 2 degrees QTcB Int : 480 ms Normal sinus rhythm Right bundle branch block Left anterior fascicular block Bifascicular block Minimal voltage criteria for LVH, may be normal variant ( R in aVL ) Abnormal ECG When compared with ECG of 04-Mar-2025 19:03, Nonspecific T wave abnormality, worse in Lateral leads Referred By: Yee Davidson Electronically Signed By: OSCAR OROZCO MD
--- NOTE | 2025-03-11 00:28 | PC.NURSE ---
pt reusing po ativan. becoming increasingly agitated and verbally aggressive with ed staff made aware
[2025-03-11] MEDS: Midazolam HCl 2 MG/2 ML VIAL 1 MG IM (00:56)
[2025-03-11] MEDS: Lidocaine 4 % Patch ADH..PATCH 1 PATCH TRANSDERMA (03:45)
[2025-03-11] MEDS: QUEtiapine Fumarate 200 MG TABLET PO ×2 (05:44→20:23)
--- NOTE | 2025-03-11 06:39 | PC.NURSE ---
pt agitated, fixated on going to her own room with her big tv, getting her own brief and going to [place]. Medicated per NOV. Slept for a total of 1.5 hours all night.
--- NOTE | 2025-03-11 06:40 | PC.NURSE ---
Pt unwilling to change into the hospital green gown. Charge aware and okay with the plan to leave it off for now. Pt denies SI, HI fci at bedside.
[2025-03-11] MEDS: Midazolam HCl 2 MG/2 ML VIAL 4 MG IVPUSH (10:15)
[2025-03-11] MEDS: Haloperidol Lactate 5 MG/ML VIAL 10 MG IM (10:15)
[2025-03-11] MEDS: diphenhydrAMINE HCL 50 MG/ML VIAL IVPUSH (10:15)
--- NOTE | 2025-03-11 10:20 | PC.NURSE ---
Pt is increasingly agitated, yelling and verbally abusive towards staff. Unable to verbally redirect and swinging at staff when assisting to put back in bed. correction staff remain with pt in room. Pt medicated as charted. Plan of care ongoing. VSS.
--- NOTE | 2025-03-11 14:37 | PC.NURSE ---
Pt remains alseep, did awake for short period, was yelling and screaming, calling staff bitches Back to sleep at this time Awaits psych consult at this time and dispo
--- NOTE | 2025-03-11 15:45 | PC.NURSE ---
Pt awake but now pleasant. Cleaned for incontinence and linens changed and changed to hospital attire. Staff remains by side. VSS DTI noted buttock, picture taken and to be placed in chart by Majo CAIN. Pt positioned to right side at this time.
--- NOTE | 2025-03-11 15:46 | MHC.EDTECH ---
pt got cleaned and changed!
--- NOTE | 2025-03-11 16:06 | MHC.CARE ---
Pt is pending psych consult for disposition, Marah Prelsey [employer] notified at 8 AM.
--- NOTE | 2025-03-11 17:02 | P.CNPS_ITS ---
History of Present Illness Date of Service: 03/12/2025 Chief Complaint: acute stroke screening L side weakness HPI Narrative: Ms. Ronquillo is a 69 year-old woman with hx of developmental condition, dementia. She was discharged from [facility] ED yesterday. She was brought back due to increase combative behaviors and agitation. Pt seen in room with staff from . Pt presents as calm. She asks this chart writer if she can go to [facility] or the mall. She denies any physical concerns. She is not able to elaborate as to aggression at the senior care. Apparently, per staff, she was throwing things. Past Psychiatric History: OP: Tammy Randall past medication trials: abilify, carbamazepine, cogentin PMFSH Medical History Developmental delay, moderate Abnormal MRI Post-surgical hypothyroidism History of ESBL E. coli infection Toxic multinodular goiter Vitamin D deficiency Hyperthyroidism Colon cancer Lung mass Developmental delay, mild Arthritis Surgical History History of carpal tunnel surgery of right wrist Hx of total thyroidectomy History of biopsy Hx of colonic polyps Hx of colonoscopy Family History: unknown Trauma History: Not disclosed Diagnostics Vital Signs (24Hr): Vital Signs - 24 hr 03/10/25 19:43 03/10/25 19:43 03/11/25 00:56 Temperature 99.3 F 98.2 F Pulse Rate 86 84 Respiratory Rate 16 20 22 H Blood Pressure 116/80 116/80 Pulse Oximetry 98 98 Oxygen Delivery Method Room Air Room Air 03/11/25 01:11 03/11/25 01:26 03/11/25 01:41 Temperature Pulse Rate 81 Respiratory Rate 18 18 20 Blood Pressure 117/80 Pulse Oximetry 93 Oxygen Delivery Method Room Air 03/11/25 01:56 03/11/25 10:30 03/11/25 12:00 Temperature Pulse Rate 74 84 Respiratory Rate 16 18 15 Blood Pressure 121/57 L 122/53 L Pulse Oximetry 95 95 Oxygen Delivery Method Room Air Room Air 03/11/25 15:45 Temperature Pulse Rate 67 Respiratory Rate 16 Blood Pressure 117/54 L Pulse Oximetry 97 Oxygen Delivery Method Room Air BMI result Body Mass Index 23.5 Labs 03/11/25 20:17 03/11/25 20:17 Mental Status Exam Mental Status Exam Narrative: Appearance: wearing casual clothing, goos hygiene, in NAD Behavior: calm Psychomotor: no agitation or retardation noted Speech: mumbles, difficult to understand at times, spontaneous TP: goal oriented- wanting to go to the mall TC: wanting to go to the mall Mood: good Affect: congruent SI: denies HI: denies VH/AH: no signs Delusions: no overt delusions Insight/judgment: impaired x2 alert, oriented to hospital, not so much to situation Medications Medications Current Medications Quetiapine Fumarate (Quetiapine Fumarate 200 Mg Tablet) 200 mg PO BID [facility] Last Admin: 03/11/25 05:44 Dose: 200 mg Quetiapine Fumarate (Quetiapine Fumarate 100 Mg Tablet) 100 mg PO DAILY [facility] Last Admin: 03/11/25 11:32 Dose: Not Given Allergies Allergies Allergy/AdvReac Type Severity Reaction Status Date / Time adhesive tape Allergy Intermediate itching Verified 03/10/25 19:48 and skin redness latex Allergy Intermediate skin rash Verified 03/10/25 19:48 and itching Seasonal Allergies Allergy Itching Verified 03/10/25 19:48 weed pollen Allergy stuffy nose Verified 03/10/25 19:48 DUST Allergy Unknown ITCHY/WATERY Uncoded 03/10/25 19:48 EYES surgical paper tape Allergy Unknown rash Uncoded 03/10/25 19:48 Tide Allergy Unknown rash Uncoded 03/10/25 19:48 Assessment & Plan Assessment & Plan (1) Mood disorder: Status: Acute Code(s): F39 - Unspecified mood [affective] disorder (2) Developmental delay, moderate: Status: Acute Code(s): R62.50 - Unspecified lack of expected normal physiological development in childhood Plan Ms. Ronquillo is a 69 year old woman with hx of developmental delay, dementia. She was brought back after discharged from [facility] ED due to ongoing combative behaviors. She currently presents as alert, pleasant. No insight into what brought her to the hospital. PLAN 1. Inpatient level of care for stabilization, safety and containment. 2. emailed psychiatric provider, Tammy Randall for coordination of care. 3. continue current medication 4. while waiting in the ED- AVOID OVERMEDICATING IF AGITATION OCCURS, USE OLANZAPINE 5MG-10MG IM. DO NOT USE BENADRYL IM. Total time managing care of this patient today ____ minutes.
--- NOTE | 2025-03-11 18:06 | MHC.EDTECH ---
pt repositioned from right side to left side
[2025-03-11 20:20] LABS: MANUAL DIFF FLAG NO
[2025-03-11 20:22] LABS: Basophils Percent Auto 0.6 % (0-2); Eosinophils Absolute Auto 0.3 X10*3/uL (0.0-0.4); Eosinophils Percent Auto 3.7 % (0-4); Hematocrit 29.6 % (37.0-47.0); Hemoglobin 9.4 g/dl (12.0-16.0); Imm Gran Abs Auto 0.03 X10*3/uL (0.00-0.03); Imm Gran Pct Auto 0.4 % (0.0-0.4); Lymphocytes Absolute Auto 1.9 X10*3/uL (1.2-4.9); Lymphocytes Percent Auto 26.4 % (20-40); Mean Corpuscular HGB Conc 31.8 g/dl (31.0-35.0); Mean Corpuscular Volume 91.4 fL (80.0-98.0); Mean Platelet Volume 8.7 fL (9.4-12.3); Monocytes Absolute Auto 0.8 X10*3/uL (0.1-1.2); Monocytes Percent Auto 11.1 % (2-11); Neutrophils Absolute Auto 4.1 x10*3/uL (2.0-8.3); Neutrophils Percent Auto 57.8 % (45-73); Platelet Count 274 X10*3/uL (160-400); Red Blood Count 3.24 X10*6/uL (4.20-5.50); Red Cell Distribution Width 14.6 % (11.0-16.0); White Blood Count 7.1 X10*3/uL (4.8-10.8)
[2025-03-11 20:46] LABS: Blood Urea Nitrogen 21 mg/dL (9-16); Creatinine Clr Calc Pharmacy 52.9; Estimated Glomerular Filt Rate > 60; Glucose Random 120 mg/dL (60-115)
--- NOTE | 2025-03-11 21:12 | MHC.EDTECH ---
This Pct assumed care of Patient at 184 ,rounding done ,vitals taken ,Patient belongings list done ,,Patient awake and watching television ,family preservation worker at bedside ,Patient drank 240 ml juice .Patient friends came for a visit ,no apparent distress noted ,all safety measure in Place .
[2025-03-11 21:32] LABS: Anion Gap 9 (12-20); Carbon Dioxide 28 mmol/L (22-29); Chloride 110 mmol/L (96-108); Potassium 3.9 mmol/L (3.3-5.1); Sodium 143 mmol/L (135-145)
--- NOTE | 2025-03-11 22:36 | MHC.EDTECH ---
2200 rounding done ,vitals taken ,urine sample sent to lab ,Patient resting with her eyes closed ,workers compensation claims adjuster left ,All safety measure in Place ,Call carrero within Pt reach .
[2025-03-11 22:43] LABS: Appearance Urine Cloudy; Color Urine Yellow; Glucose Urine UA Negative (Negative); Leukocyte Esterase Urine Large (3+) (Negative); Nitrite Urine Positive (Negative); PH 6.5 (5.0-9.0); UMIC TRIGGER UACC YES; Urine Blood Negative (Negative); Urine Ketones Negative (Negative); Urine Protein 30 (1+) mg/dL (Neg-Trace)
[2025-03-11 22:52] LABS: Amphetamine Screen Urine Not Detected (Not Detect); Barbiturates, Urine Not Detected (Not Detect); Benzodiazepines Screen Urine POSITIVE (Not Detect); Buprenorphine Scr Not Detected (Not Detect); Cannabinoid Screen Urine Not Detected (Not Detect); Cocaine Screen Urine Not Detected (Not Detect); Fentanyl, urine Not Detected (Not Detect); Methadone Screen, Urine Not Detected (Not Detect); Opiate Screen Urine Not Detected (Not Detect); Oxycodone Screen Urine Not Detected (Not Detect); Phencyclidine Screen Urine Not Detected (Not Detect)
[2025-03-11 22:54] LABS: Bacteria Urine None Seen (None Seen); Hyaline Casts Urine 0-2 /LPF (0-2); RBC Urine 0-2 /HPF (0-2); UACC Culture Trigger YES; WBC Urine >50 /HPF (0-5)
[2025-03-12 00:17] VITALS: BP 120/58; PULSE 63; RESP 15; TEMP 36.6; O2SAT 94
[2025-03-12 02:41] VITALS: BP 155/64; PULSE 58; RESP 15; TEMP 36.9
[2025-03-12 05:45] VITALS: BP 130/60; PULSE 57; RESP 14; TEMP 36.5
[2025-03-12] MEDS: QUEtiapine Fumarate 200 MG TABLET PO ×2 (10:05→22:17)
[2025-03-12] MEDS: Ibuprofen 400 MG TABLET PO (10:43)
--- NOTE | 2025-03-12 12:10 | MHC.CARE ---
Per psych consult patient will be inpatient [facility] bed search and will remain in ED until a bed can be secured.
[2025-03-12] MEDS: QUEtiapine Fumarate 100 MG TABLET PO (13:57)
--- NOTE | 2025-03-12 14:57 | HO.WOUND ---
Wound Consult: Initial 69yr old?female admitted to [facility] on 03/10/25 - See progress notes and H&P for detailed history.? Wound consult placed for sacrum.? Patient agreeable to assessment and photo documentation.? Sacrum Etiology: ?Deep Tissue Injury in Evolution ?Present on Admission Measurements: 6cm x 12cm x 0.1cm Wound Bed: red moist partial thickness tissue loss with dark maroon purple nonblanchabel tissue Drainage / Odor: None noted Edges: ? irregular Juliet wound: Red pink tissue? No Induration, Fluctuance or Warmth noted Pain: denies Goals of Treatment: ? Foam dressing to aid in pressure redistribution Recommendations: 1. Turn and Reposition every 2 hours and as needed for patient comfort.? Use pillows or wedges to support off loading positions. 2. Off Load all bony prominences with use of pillows and heel boots if needed.? Apply Preventative foams where needed. ? 3. Monitor for incontinence and moisture control, use barrier creams when needed for prevention and treatment. 4. Provide adequate and supplemental nutrition.? 5. Order low air loss mattress. 6. When applicable maintain blood glucose levels per Providers order. Sacrum - Off Load Pressure with Q2 hr turns and use of pillows - Cleanse with PH balance spray or wipes, pat dry. ?Apply thin layer of Triad to wound bed. Do not remove all of paste between applications as this may cause further skin damage.? Cover with foam dressing to aid in off loading and protection from friction. Change every 3 days and PRN. Waffle cushion provided for when up to recliner chair. Please order hospital bed. Re-consult wound care Nurse for wound deterioration or wound changes.
--- NOTE | 2025-03-12 15:08 | PHA.MEDREC ---
Pharmacy Consult ? Medication Reconciliation Pharmacy has completed the medication reconciliation. UTILIZED LIST FROM [facility], .
[2025-03-12 16:00] VITALS: BP 115/56; PULSE 94; RESP 16; TEMP 36.8; O2SAT 97
[2025-03-12 20:00] VITALS: BP 115/74; PULSE 84; RESP 16; TEMP 36.7; O2SAT 98
[2025-03-12 22:00] VITALS: BP 149/70; PULSE 79; RESP 16; TEMP 36.7; O2SAT 98
[2025-03-13] MEDS: OLANZapine ODT 10 MG TAB.RAPDIS TRANSLINGU ×3 (00:37→16:12)
[2025-03-13] MEDS: QUEtiapine Fumarate 200 MG TABLET PO ×2 (09:01→20:03)
[2025-03-13] MEDS: Docusate Sodium 100 MG CAPSULE PO ×2 (09:01→20:03)
[2025-03-13] MEDS: Aspirin Enteric Coated 81 MG TABLET.DR PO (09:01)
[2025-03-13] MEDS: Loratadine 10 MG TABLET PO (09:01)
[2025-03-13] MEDS: Sennosides 8.6 MG TABLET PO (09:01)
[2025-03-13] MEDS: Ascorbic Acid 500 MG TABLET PO ×2 (09:01→20:03)
[2025-03-13] MEDS: Tamsulosin HCL 0.4 MG CAPSULE PO (09:01)
[2025-03-13] MEDS: Multivitamin TABLET 1 TAB PO (09:01)
[2025-03-13] MEDS: Methenamine Hippurate 1 GM TABLET PO ×2 (09:01→20:03)
[2025-03-13] MEDS: carBAMazepine 200 MG TABLET PO (09:01)
[2025-03-13] MEDS: Levothyroxine Sodium 200 MCG TABLET PO (09:02)
--- NOTE | 2025-03-13 09:21 | PC.NURSE ---
patient beginning to escalate in room w/ staff. medicated per the MAR w/ prn medication which patient took willingly. pending effectiveness. remains bernie bedsearch
--- NOTE | 2025-03-13 10:18 | PC.NURSE ---
patient ambulating in room with standby assistance. patient had large bowel movement, cleaned and placed herself back into bed at this time appears to be resting quietly. staff remains at bedside
[2025-03-13] MEDS: QUEtiapine Fumarate 100 MG TABLET PO (12:34)
--- NOTE | 2025-03-13 12:36 | PC.NURSE ---
Pt refused vitals
[2025-03-13 15:10] VITALS: BP 119/75; PULSE 78; RESP 20; TEMP 36.8; O2SAT 94; BMI 22.3
--- NOTE | 2025-03-13 15:24 | PC.NURSE ---
RN from [facility] calledMariel. Cell phone number [phone]. She said to call for any questions, issues.
--- NOTE | 2025-03-13 17:05 | PC.NURSE ---
Addendum entered and electronically signed by Re Smallwood RN 03/13/25 17:45: Denied depression/anxiety/SI/HI/AH/VH and asked with agitation, Why would you ask me that question after each question. Original Note: This 69 y.o. woman has hx prior admission to [facility] Unit at [facility]. Referred by [facility] Care Team with Dx: Mood disorder, due to known physiological condition, Vascular dementia,Unspecified, Other disorders of psychological development. Nurse to nurse done with ED prior to admission. Meds verified in ED, admission orders received from Izabella Presley prescriber. Arrived on unit at 1455 and placed on 5 min safety checks, unlocked bathroom. Section 12B legal status. Seen by wound nurse 03/12/25 while in ED with instructions for care given for deep tissue wound care buttocks/sacrum/coccyx. Skin integrity check done with 2 staff present upon admission. No dressing observed on wound areas per wound nurse instructions. Pt declined care of area at time of admission. Declined to have photo taken of area for medical records. Denies substance use, Tox screen positive for Benzodiazepines. Hx chronic uti's, prescribed Hiprex/Vit C for this. Previously diagnosed with Developmental delay, dementia and mood d/o. Precipitating events to admission: Presented to [facility] ED on 03/11/25 due to increased agitation in A fdc; fdc staff called 911. Pt had previously been assessed in [facility] ED 03/05/25 due to verbal and physical aggression in the fdc. She was sent home at that time with med changes. Upon admission to unit pt presented with agitation, low frustration tolerance and disorganization. Loud during all interactions. Wanted to go to [place] to [facility]. Stated she utilized walker at home and wanted to stay in wheelchair. OT assessed with hospital wheeled walker and pt cleared to use independently. Difficult to redirect pt while yelling and yells frequently. Olanzapine 10mg po given for agitation at 1612 with good effect.
[2025-03-13 19:59] VITALS: BP 107/56; PULSE 75; RESP 14; TEMP 43.7; TEMP 6.5; O2SAT 100
[2025-03-13] MEDS: Melatonin 3 MG TABLET 9 MG PO (20:02)
[2025-03-13] MEDS: Donepezil HCl 5 MG TABLET PO (20:02)
[2025-03-13] MEDS: carBAMazepine 200 MG TABLET 400 MG PO (20:02)
[2025-03-13] MEDS: traZODone HCL 100 MG TABLET PO (20:03)
[2025-03-14] MEDS: Levothyroxine Sodium 200 MCG TABLET PO (05:04)
[2025-03-14 07:43] LABS: Estimated Average Glucose 100 mg/dL; Hemoglobin A1c % 5.1 % (<6.0)
[2025-03-14 07:50] LABS: Carbamazepine Tegretol 8.9 mcg/mL (5.0-12.0)
[2025-03-14 07:52] LABS: Alanine Aminotransferase 22 U/L (0-31); Albumin Level 3.5 g/dL (3.5-5.0); Alkaline Phosphatase 105 U/L (39-117); Anion Gap 11 (12-20); Aspartate Amino Transferase 28 U/L (5-31); Bilirubin Total 0.3 mg/dL (0.0-1.0); Blood Urea Nitrogen 21 mg/dL (9-16); Carbon Dioxide 27 mmol/L (22-29); Chloride 107 mmol/L (96-108); Cholesterol 149 mg/dL (<200); Creatinine Clr Calc Pharmacy 52.9; Estimated Glomerular Filt Rate > 60; Glucose Random 82 mg/dL (60-115); HDL Cholesterol 50 mg/dL (>40); LDL Cholesterol Calculated 89 mg/dL (<100); Potassium 3.8 mmol/L (3.3-5.1); Sodium 141 mmol/L (135-145); Total Protein 7.1 g/dL (6.5-8.0); Triglycerides 51 mg/dL (<150)
[2025-03-14 08:00] VITALS: BP 118/74; PULSE 83
[2025-03-14 08:06] LABS: Thyroid Stimulating Hormone 22.04 uIU/mL (0.32-4.0)
[2025-03-14 08:27] LABS: Folate 11.7 ng/mL (> or = 4.0); Vitamin B12 683 pg/mL (200-900)
[2025-03-14] MEDS: Ascorbic Acid 500 MG TABLET PO ×2 (08:57→20:46)
[2025-03-14] MEDS: QUEtiapine Fumarate 200 MG TABLET PO ×2 (08:57→20:46)
[2025-03-14] MEDS: Docusate Sodium 100 MG CAPSULE PO ×2 (08:57→20:48)
[2025-03-14] MEDS: Ferrous Sulfate 324 MG TABLET.DR PO (08:57)
[2025-03-14] MEDS: Aspirin Enteric Coated 81 MG TABLET.DR PO (08:57)
[2025-03-14] MEDS: Loratadine 10 MG TABLET PO (08:58)
[2025-03-14] MEDS: Tamsulosin HCL 0.4 MG CAPSULE PO (08:58)
[2025-03-14] MEDS: Multivitamin TABLET 1 TAB PO (08:58)
[2025-03-14] MEDS: Methenamine Hippurate 1 GM TABLET PO ×2 (08:58→20:48)
[2025-03-14] MEDS: carBAMazepine 200 MG TABLET PO (08:59)
--- NOTE | 2025-03-14 09:09 | P.HPPS_ITS ---
HPI Date of Service: 03/14/25 Chief Complaint: combative behaviors Sources of Information: patient interviewed, chart reviewed and crisis/core team assessment reviewed Additional Sources of Information: OP- Tammy Randall HPI Subjective Notes: Hicks Warning and Section 12B Narrative: Ms. Ronquillo is a 69 year-old woman with hx of developmental delay, vascular dementia who was brought to [facility] ED due to increase combative behaviors at . Pertinent labs in the ED include CBC with chronic normocytic anemia, CMP without electrolyte imbalances, increase BUN 21, Cr 0.89, Creatinine clearance 52.9. Utox was negative. UA with protein, nitrites, leukocityes- she does have hx of chronic UTI on hiprex and vit c. Pt on the unit presents as loud but cooperative. She is asking for paper to color and compliments this leader writer's shirt. She asks if she can color pictures for other staff. She knows she is in the hospital. However, she does not know why she is here. She does not appear internally preoccupied. She does not present with delusional content. Per staff pt has had some difficulty sleeping. At baseline, pt has low frustration tolerance, tends to be loud and can also be demanding at times. Past Psychiatric History: Inpt: S1: 09/2024 OP: Tammy Randall, [employer] past medication trials: abilify, carbamazepine, cogentin, seroquel, olanzapine Medical Evaluation Reviewed: Yes [facility] Medical History Developmental delay, moderate Abnormal MRI Post-surgical hypothyroidism History of ESBL E. coli infection Toxic multinodular goiter Vitamin D deficiency Hyperthyroidism Colon cancer Lung mass Developmental delay, mild Arthritis Surgical History History of carpal tunnel surgery of right wrist Hx of total thyroidectomy History of biopsy Hx of colonic polyps Hx of colonoscopy Family History: unknown Trauma History: Not disclosed Diagnostics Vital Signs (24Hr): Vital Signs - 24 hr 03/13/25 15:10 03/13/25 19:59 Temperature 98.2 F 43.7 F L Pulse Rate 78 75 Respiratory Rate 20 14 Blood Pressure 119/75 107/56 L Pulse Oximetry 94 100 Oxygen Delivery Method Room Air Room Air BMI result Body Mass Index 22.3 Labs 03/11/25 20:17 03/14/25 07:22 Labs: Laboratory Results - last 48 hr 03/14/25 07:22 Sodium 141 Potassium 3.8 Chloride 107 Carbon Dioxide 27 Anion Gap 11 L BUN 21 H Creatinine 0.89 Estim Creat Clear Calc 52.9 Estimated GFR > 60 Random Glucose 82 Estimat Average Glucose 100 Hemoglobin A1c % 5.1 Calcium 9.0 D Total Bilirubin 0.3 AST 28 ALT 22 Alkaline Phosphatase 105 Total Protein 7.1 Albumin 3.5 Triglycerides 51 Cholesterol 149 LDL Cholesterol, Calc 89 HDL Cholesterol 50 Vitamin B12 683 Folate 11.7 TSH 22.04 H Carbamazepine 8.9 Meds/Allergies Meds Home Medications ?Medication ?Instructions ?Recorded ?Confirmed ?Type nystatin 100,000 unit/gram topical 1 appl topical BID PRN Rash 01/05/21 03/12/25 History powder triamcinolone acetonide 0.1 % 1 appl topical BID PRN Skin 01/24/23 03/12/25 History topical ointment Irritation melatonin 10 mg tablet 10 mg PO BEDTIME 05/10/23 03/12/25 History ascorbic acid (vitamin C) 500 mg 500 mg PO BID 03/13/24 03/12/25 History tablet (Vitamin C) betamethasone dipropionate 0.05 % 1 appl topical BID PRN Dry areas 03/13/24 03/12/25 History topical ointment on hand zinc oxide-vitamin B5-vit E 11.3% 1 appl topical BID Rash 03/13/24 03/12/25 History topical cream (Balmex Adult [facility]) vibegron 75 mg tablet (Gemtesa) 75 mg PO DAILY 01/31/25 03/12/25 History carbamazepine 200 mg tablet 200 mg PO DAILY 02/21/25 03/12/25 History quetiapine 50 mg tablet 50 mg PO BID PRN Agitation 02/21/25 03/12/25 History acetaminophen 500 mg tablet 500 mg PO Q4H PRN fever or pain 03/04/25 03/12/25 History ferrous sulfate 325 mg (65 mg 325 mg PO MOWEFR@0900 03/04/25 03/12/25 History iron) tablet (FeroSul) quetiapine 200 mg tablet (Seroquel) 200 mg PO BID 03/04/25 03/12/25 History tamsulosin 0.4 mg capsule 0.4 mg PO DAILY 03/04/25 03/12/25 History dextromethorphan-guaifenesin 10 10 ml PO QID PRN Cough 03/12/25 03/12/25 History mg-100 mg/5 mL oral liquid (Guaifenesin-DM) levothyroxine 200 mcg tablet 200 mcg PO DAILY@0600 03/12/25 03/12/25 History quetiapine 100 mg tablet 100 mg PO DAILY@1200 03/12/25 03/12/25 History Allergies Allergies Allergy/AdvReac Type Severity Reaction Status Date / Time adhesive tape Allergy Intermediate itching Verified 03/10/25 19:48 and skin redness latex Allergy Intermediate skin rash Verified 03/10/25 19:48 and itching Seasonal Allergies Allergy Itching Verified 03/10/25 19:48 weed pollen Allergy stuffy nose Verified 03/10/25 19:48 DUST Allergy Unknown ITCHY/WATERY Uncoded 03/10/25 19:48 EYES surgical paper tape Allergy Unknown rash Uncoded 03/10/25 19:48 Tide Allergy Unknown rash Uncoded 03/10/25 19:48 Mental Status Exam Mental Status Exam Narrative: Appearance: wearing casual clothing, goos hygiene, in NAD Behavior: calm Psychomotor: no agitation or retardation noted Speech: mumbles, difficult to understand at times, spontaneous TP: goal oriented- wanting to color TC: wanting to color Mood: good Affect: congruent SI: denies HI: denies VH/AH: no signs Delusions: no overt delusions Insight/judgment: impaired x2 alert, oriented to hospital, not so much to situation Assessment & Plan Assessment & Plan (1) Mood disorder: Status: Acute Code(s): F39 - Unspecified mood [affective] disorder (2) Developmental delay, moderate: Status: Acute Code(s): R62.50 - Unspecified lack of expected normal physiological development in childhood (3) Vascular dementia: Status: Acute Code(s): F01.50 - Vascular dementia, unspecified severity, without behavioral disturbance, psychotic disturbance, mood disturbance, and anxiety Plan Ms. Ronquillo is a 69 year-old woman with hx of developmental delay, vascular dementia who was brought via EMS due to increase aggression. Medical work up mostly unremarkable, except for TSH 22, free T4 1.22. She is on levothyroxine, unclear if taking it as prescribed. This leader writer spoke with pt's psychiatric provider, Tammy Randall who reports she has been adjusting dose of seroquel. She has been on carbamazepine for a long time for mood stabilization- will check level. Will add diazepam for impulsive/explosive behaviors. PLAN 1. Admit to S1, Sect 12b, 15 minutes checks 2. continue seroquel 200mg po BID, 100mg po at noon- monitor for oversedation, hold dose 3. Start diazepam 2mg po TID- monitor over sedation, unsteady gait, hold dose if oversedated or unsteady gait. 4. coordination of care 5. aftercare planning Patient educated on: diagnosis Reason for continued inpatient stay Substantial Risk for: harm to others Statement Statement: I have reviewed the history and physical and performed a pertinent examination on my patient. No changes have occurred unless specified. If the History and Physical was not performed prior to admission, the Hospitalist's service will be consulted for completing the admission physical. Time Spent With Patient Time: Total time managing care of this patient today ____ minutes.
[2025-03-14] MEDS: diazePAM 2 MG TABLET PO ×3 (09:58→20:45)
[2025-03-14 10:49] LABS: Free T4 (Free Thyroxine) 1.05 ng/dL (0.71-1.85)
[2025-03-14] MEDS: Acetaminophen 325 MG TABLET 650 MG PO (11:08)
[2025-03-14] MEDS: QUEtiapine Fumarate 100 MG TABLET PO (11:11)
[2025-03-14 11:20] VITALS: BMI 22.3
--- NOTE | 2025-03-14 11:25 | MHC.CLN ---
NUTRITION DIET=REGULAR. SKIN WITH DTI TO SACRUM. ADDING ENSURE TID TO PROMOTE WOUND HEALING. SUPPLEMENT PROVIDES 1050 KCALS, 60 G PROTEIN. FOLLOW FOR PO INTAKE AND SKIN INTEGRITY. SEE CLINICAL NUTRITION ASSESSMENT 03/14/25.
[2025-03-14] MEDS: OLANZapine ODT 10 MG TAB.RAPDIS TRANSLINGU (17:07)
[2025-03-14] MEDS: HaloperidoL 5 MG TABLET PO ×2 (17:48→23:10)
[2025-03-14] MEDS: LORazepam 1 MG TABLET 2 MG PO (17:48)
--- NOTE | 2025-03-14 17:51 | PC.NURSE ---
Became extremely upset when she realized that she wasn't going home. and even more upset when we wouldn't allow her to bring the crayons to her room. Dr Colbert was texted and new orders were obtained. She was given Haldol and Ativan PO.
[2025-03-14 20:00] VITALS: BP 138/67; PULSE 100; RESP 20; TEMP 37.2; O2SAT 95
[2025-03-14] MEDS: Melatonin 3 MG TABLET 9 MG PO (20:44)
[2025-03-14] MEDS: Donepezil HCl 5 MG TABLET PO (20:45)
[2025-03-14] MEDS: traZODone HCL 100 MG TABLET PO (20:46)
[2025-03-14] MEDS: carBAMazepine 200 MG TABLET 400 MG PO (20:46)
[2025-03-14] MEDS: LORazepam 1 MG TABLET PO (23:10)
[2025-03-15] MEDS: Levothyroxine Sodium 200 MCG TABLET PO (06:39)
[2025-03-15 08:10] LABS: Carbamazepine Tegretol 8.8 mcg/mL (5.0-12.0)
--- NOTE | 2025-03-15 08:44 | P.PNPSI_ITS ---
Subjective Subjective Date of Service: 03/15/25 Reason For Visit: combative behaviors Subjective Notes: Conditional Voluntary Healthcare Proxy: Yes Guardianship: No Medical Problems Affecting Mental Status: No Interim History: 69 yo with developmental delay, dementia and mood do - sedated after several doses of diazepam= will move dose back to 1mg and only bid - for yelling and screaming- was so sedated this am that could not get seroquel dose pt seen by provider and just answered uhm to questions- Medication Compliance: Yes Side effects from medications: Yes (sedation) Attending Groups: Intermittent Review of Systems Acute medical concerns: No Medical Review of Systems: unchanged Mental Status Exam Mental Status Exam Narrative: sitting in chair, breathing, tongue out- some drooling- food on shirt- hand on belly Patient Appearance: Disheveled Diagnostics Vital Signs (24Hr): Vital Signs - 24 hr 03/14/25 20:00 Temperature 99.0 F Pulse Rate 100 Respiratory Rate 20 Blood Pressure 138/67 Pulse Oximetry 95 Oxygen Delivery Method Room Air BMI result Body Mass Index 22.3 Labs 03/11/25 20:17 03/14/25 07:22 Labs: Laboratory Results - last 48 hr 03/14/25 03/15/25 07:22 07:35 Sodium 141 Potassium 3.8 Chloride 107 Carbon Dioxide 27 Anion Gap 11 L BUN 21 H Creatinine 0.89 Estim Creat Clear Calc 52.9 Estimated GFR > 60 Random Glucose 82 Estimat Average Glucose 100 Hemoglobin A1c % 5.1 Calcium 9.0 D Total Bilirubin 0.3 AST 28 ALT 22 Alkaline Phosphatase 105 Total Protein 7.1 Albumin 3.5 Triglycerides 51 Cholesterol 149 LDL Cholesterol, Calc 89 HDL Cholesterol 50 Vitamin B12 683 Folate 11.7 TSH 22.04 H Free T4 1.05 Carbamazepine 8.9 8.8 Medications Medications Current Medications Acetaminophen (Acetaminophen 325 Mg Tablet) 650 mg PO Q6H PRN PRN Reason: Headache/Pain, Scale 1-10 Last Admin: 03/14/25 11:08 Dose: 650 mg Al Hydroxide/Mg Hydroxide (Magnesium Hydrox/Alum Hydrox 30 Ml Oral.Susp) 30 ml PO Q6H PRN PRN Reason: Heartburn/Nausea Ascorbic Acid (Ascorbic Acid 500 Mg Tablet) 500 mg PO BID [facility] Last Admin: 03/14/25 20:46 Dose: 500 mg Aspirin (Aspirin Enteric Coated 81 Mg Tablet.) 81 mg PO DAILY [facility] Last Admin: 03/14/25 08:57 Dose: 81 mg Carbamazepine (Carbamazepine 200 Mg Tablet) 200 mg PO DAILY [facility] Last Admin: 03/14/25 08:59 Dose: 200 mg Carbamazepine (Carbamazepine 200 Mg Tablet) 400 mg PO BEDTIME [facility] Last Admin: 03/14/25 20:46 Dose: 400 mg Diazepam (Diazepam 2 Mg Tablet) 2 mg PO TID [facility] Last Admin: 03/14/25 20:45 Dose: 2 mg Docusate Sodium (Docusate Sodium 100 Mg Capsule) 100 mg PO BID [facility] Last Admin: 03/14/25 20:48 Dose: 100 mg Donepezil HCl (Donepezil Hcl 5 Mg Tablet) 5 mg PO BEDTIME [facility] Last Admin: 03/14/25 20:45 Dose: 5 mg Ferrous Sulfate (Ferrous Sulfate 324 Mg Tablet.Dr) 324 mg PO MOWEFR@0900 [facility] Last Admin: 03/14/25 08:57 Dose: 324 mg Fluticasone Propionate (Fluticasone Propionate Nasal 16 Gm [place]) 1 spray NOSTRIL-B BID PRN PRN Reason: nasal congestion Haloperidol (Haloperidol 5 Mg Tablet) 5 mg PO TID PRN PRN Reason: agitation Last Admin: 03/14/25 23:10 Dose: 5 mg Levothyroxine Sodium (Levothyroxine Sodium 200 Mcg Tablet) 200 mcg PO DAILY@0600 [facility] Last Admin: 03/15/25 06:39 Dose: 200 mcg Loratadine (Loratadine 10 Mg Tablet) 10 mg PO DAILY [facility] Last Admin: 03/14/25 08:58 Dose: 10 mg Lorazepam (Lorazepam 1 Mg Tablet) 1 mg PO Q4H PRN PRN Reason: agitation Last Admin: 03/14/25 23:10 Dose: 1 mg Magnesium Hydroxide (Milk Of Magnesia 30 Ml Oral.Susp) 30 ml PO DAILY PRN PRN Reason: Constipation Melatonin (Melatonin 3 Mg Tablet) 9 mg PO BEDTIME [facility] Last Admin: 03/14/25 20:44 Dose: 9 mg Methenamine Hippurate (Methenamine Hippurate 1 Gm Tablet) 1 gm PO BID [facility] Last Admin: 03/14/25 20:48 Dose: 1 gm Multivitamins/Vitamin C (Multivitamin Tablet) 1 tab PO DAILY [facility] Last Admin: 03/14/25 08:58 Dose: 1 tab Nystatin (Nystatin Powder 15 Gm Bottle) 1 appl TOPICAL BID PRN; Protocol PRN Reason: Rash Quetiapine Fumarate (Quetiapine Fumarate 200 Mg Tablet) 200 mg PO BID [facility] Last Admin: 03/14/25 20:46 Dose: 200 mg Quetiapine Fumarate (Quetiapine Fumarate 100 Mg Tablet) 100 mg PO DAILY@1200 [facility] Last Admin: 03/14/25 11:11 Dose: 100 mg Senna (Sennosides 8.6 Mg Tablet) 8.6 mg PO Q48H [facility] Last Admin: 03/13/25 09:01 Dose: 8.6 mg Tamsulosin HCl (Tamsulosin Hcl 0.4 Mg Capsule) 0.4 mg PO DAILY [facility] Last Admin: 03/14/25 08:58 Dose: 0.4 mg Trazodone HCl (Trazodone Hcl 100 Mg Tablet) 100 mg PO BEDTIME [facility] Last Admin: 03/14/25 20:46 Dose: 100 mg Trazodone HCl (Trazodone Hcl 50 Mg Tablet) 50 mg PO BEDTIME PRN PRN Reason: Insomnia Allergies Allergies Allergy/AdvReac Type Severity Reaction Status Date / Time adhesive tape Allergy Intermediate itching Verified 03/10/25 19:48 and skin redness latex Allergy Intermediate skin rash Verified 03/10/25 19:48 and itching Seasonal Allergies Allergy Itching Verified 03/10/25 19:48 weed pollen Allergy stuffy nose Verified 03/10/25 19:48 DUST Allergy Unknown ITCHY/WATERY Uncoded 03/10/25 19:48 EYES surgical paper tape Allergy Unknown rash Uncoded 03/10/25 19:48 Tide Allergy Unknown rash Uncoded 03/10/25 19:48 Assessment & Plan Assessment & Plan (1) Mood disorder: Status: Acute Code(s): F39 - Unspecified mood [affective] disorder (2) Developmental delay, moderate: Status: Acute Code(s): R62.50 - Unspecified lack of expected normal physiological development in childhood Plan Ms. Ronquillo is a 69 year old woman with hx of developmental delay, dementia. She was brought back after discharged from [facility] ED due to ongoing combative behaviors. She currently presents as alert, pleasant. No insight into what brought her to the hospital. PLAN 1. Inpatient level of care for stabilization, safety and containment. 2. emailed psychiatric provider, Tammy Randall for coordination of care. 3. continue current medication 4. while waiting in the ED- AVOID OVERMEDICATING IF AGITATION OCCURS, USE OLANZAPINE 5MG-10MG IM. DO NOT USE BENADRYL IM. 03/15 - pt was yelling and labile and was started on diazepam 2mg tid , but was sedated after 2 doses - one last pm and this am- will cut dose and dosing back- a quetiapine dose held today due to sedation Reason for continued inpatient stay Substantial Risk for: inability to function, rapid decompensation and med/psych decompensation Time Spent With Patient Time: Total time managing care of this patient today ____ minutes.
[2025-03-15 09:43] VITALS: BP 172/79; PULSE 73; RESP 16; TEMP 36.9; O2SAT 96
[2025-03-15] MEDS: Sennosides 8.6 MG TABLET PO (09:45)
[2025-03-15] MEDS: Tamsulosin HCL 0.4 MG CAPSULE PO (09:46)
[2025-03-15] MEDS: Ascorbic Acid 500 MG TABLET PO ×2 (09:46→20:30)
[2025-03-15] MEDS: Aspirin Enteric Coated 81 MG TABLET.DR PO (09:46)
[2025-03-15] MEDS: Methenamine Hippurate 1 GM TABLET PO ×2 (09:46→20:29)
[2025-03-15] MEDS: diazePAM 2 MG TABLET PO (09:46)
[2025-03-15] MEDS: QUEtiapine Fumarate 200 MG TABLET PO ×2 (09:46→20:30)
[2025-03-15] MEDS: Multivitamin TABLET 1 TAB PO (09:46)
[2025-03-15] MEDS: Loratadine 10 MG TABLET PO (09:46)
[2025-03-15] MEDS: carBAMazepine 200 MG TABLET PO (09:46)
[2025-03-15] MEDS: Docusate Sodium 100 MG CAPSULE PO ×2 (09:46→20:32)
--- NOTE | 2025-03-15 16:01 | PC.NURSE ---
Pt. slept until about 10 AM and was given AM meds and breakfast at that time. She was then somnolent, and napped in an armchair most of afternoon. Afternoon quetiapine held and Kay Alicea updated. Valium order changed.
[2025-03-15 20:00] VITALS: BP 109/71; PULSE 83; RESP 20; TEMP 35.9; O2SAT 96
[2025-03-15] MEDS: carBAMazepine 200 MG TABLET 400 MG PO (20:29)
[2025-03-15] MEDS: Donepezil HCl 5 MG TABLET PO (20:29)
[2025-03-15] MEDS: diazePAM 2 MG TABLET 1 MG PO (20:30)
[2025-03-15] MEDS: Melatonin 3 MG TABLET 9 MG PO (20:31)
[2025-03-15] MEDS: traZODone HCL 100 MG TABLET PO (20:31)
[2025-03-15] MEDS: traZODone HCL 50 MG TABLET PO (22:55)
[2025-03-15] MEDS: LORazepam 1 MG TABLET PO (22:56)
[2025-03-15] MEDS: HaloperidoL 5 MG TABLET PO (22:56)
[2025-03-16] MEDS: Levothyroxine Sodium 200 MCG TABLET PO (06:19)
[2025-03-16 08:30] VITALS: BP 153/67; PULSE 70; RESP 19; TEMP 36.8; O2SAT 99
[2025-03-16] MEDS: Aspirin Enteric Coated 81 MG TABLET.DR PO (08:31)
[2025-03-16] MEDS: diazePAM 2 MG TABLET 1 MG PO ×2 (08:31→21:39)
[2025-03-16] MEDS: Tamsulosin HCL 0.4 MG CAPSULE PO (08:32)
[2025-03-16] MEDS: Loratadine 10 MG TABLET PO (08:32)
[2025-03-16] MEDS: Methenamine Hippurate 1 GM TABLET PO ×2 (08:33→21:39)
[2025-03-16] MEDS: Multivitamin TABLET 1 TAB PO (08:33)
[2025-03-16] MEDS: carBAMazepine 200 MG TABLET PO (08:33)
[2025-03-16] MEDS: QUEtiapine Fumarate 200 MG TABLET PO ×2 (08:33→21:52)
[2025-03-16] MEDS: Ascorbic Acid 500 MG TABLET PO ×2 (08:33→21:38)
[2025-03-16] MEDS: Docusate Sodium 100 MG CAPSULE PO ×2 (09:00→21:39)
--- NOTE | 2025-03-16 09:43 | P.PNPSI_ITS ---
Subjective Subjective Date of Service: 03/16/25 Reason For Visit: combative behaviors Subjective Notes: Conditional Voluntary Healthcare Proxy: Yes Interim History: 69 with developemental do - and psychaitric sys- was overly sedated on diazepam yesterday which was lowered- today doing better, though provider saw patient when in bed sleeping- continues confused and disorg when up but not combative- Medication Compliance: Yes Side effects from medications: Yes (oversedation at times) Attending Groups: Intermittent Review of Systems Acute medical concerns: No Medical Review of Systems: unchanged Review of Systems: less over sedation on lower diazepam Mental Status Exam Mental Status Exam Narrative: pt sleeping in bed- Diagnostics Vital Signs (24Hr): Vital Signs - 24 hr 03/15/25 20:00 Temperature 96.6 F L Pulse Rate 83 Respiratory Rate 20 Blood Pressure 109/71 Pulse Oximetry 96 Oxygen Delivery Method Room Air BMI result Body Mass Index 22.3 Labs 03/11/25 20:17 03/14/25 07:22 Labs: Laboratory Results - last 48 hr 03/14/25 03/15/25 07:22 07:35 Free T4 1.05 Carbamazepine 8.8 Medications Medications Current Medications Acetaminophen (Acetaminophen 325 Mg Tablet) 650 mg PO Q6H PRN PRN Reason: Headache/Pain, Scale 1-10 Last Admin: 03/14/25 11:08 Dose: 650 mg Al Hydroxide/Mg Hydroxide (Magnesium Hydrox/Alum Hydrox 30 Ml Oral.Susp) 30 ml PO Q6H PRN PRN Reason: Heartburn/Nausea Ascorbic Acid (Ascorbic Acid 500 Mg Tablet) 500 mg PO BID [facility] Last Admin: 03/16/25 08:33 Dose: 500 mg Aspirin (Aspirin Enteric Coated 81 Mg Tablet.Dr) 81 mg PO DAILY [facility] Last Admin: 03/16/25 08:31 Dose: 81 mg Carbamazepine (Carbamazepine 200 Mg Tablet) 200 mg PO DAILY [facility] Last Admin: 03/16/25 08:33 Dose: 200 mg Carbamazepine (Carbamazepine 200 Mg Tablet) 400 mg PO BEDTIME [facility] Last Admin: 03/15/25 20:29 Dose: 400 mg Diazepam (Diazepam 2 Mg Tablet) 1 mg PO BID [facility] Last Admin: 03/16/25 08:31 Dose: 1 mg Docusate Sodium (Docusate Sodium 100 Mg Capsule) 100 mg PO BID [facility] Last Admin: 03/15/25 20:32 Dose: 100 mg Donepezil HCl (Donepezil Hcl 5 Mg Tablet) 5 mg PO BEDTIME [facility] Last Admin: 03/15/25 20:29 Dose: 5 mg Ferrous Sulfate (Ferrous Sulfate 324 Mg Tablet.Dr) 324 mg PO MOWEFR@0900 [facility] Last Admin: 03/14/25 08:57 Dose: 324 mg Fluticasone Propionate (Fluticasone Propionate Nasal 16 Gm [place]) 1 spray NOSTRIL-B BID PRN PRN Reason: nasal congestion Haloperidol (Haloperidol 5 Mg Tablet) 5 mg PO TID PRN PRN Reason: agitation Last Admin: 03/15/25 22:56 Dose: 5 mg Levothyroxine Sodium (Levothyroxine Sodium 200 Mcg Tablet) 200 mcg PO DAILY@0600 [facility] Last Admin: 03/16/25 06:19 Dose: 200 mcg Loratadine (Loratadine 10 Mg Tablet) 10 mg PO DAILY [facility] Last Admin: 03/16/25 08:32 Dose: 10 mg Lorazepam (Lorazepam 1 Mg Tablet) 1 mg PO Q4H PRN PRN Reason: agitation Last Admin: 03/15/25 22:56 Dose: 1 mg Magnesium Hydroxide (Milk Of Magnesia 30 Ml Oral.Susp) 30 ml PO DAILY PRN PRN Reason: Constipation Melatonin (Melatonin 3 Mg Tablet) 9 mg PO BEDTIME [facility] Last Admin: 03/15/25 20:31 Dose: 9 mg Methenamine Hippurate (Methenamine Hippurate 1 Gm Tablet) 1 gm PO BID [facility] Last Admin: 03/16/25 08:33 Dose: 1 gm Multivitamins/Vitamin C (Multivitamin Tablet) 1 tab PO DAILY [facility] Last Admin: 03/16/25 08:33 Dose: 1 tab Nystatin (Nystatin Powder 15 Gm Bottle) 1 appl TOPICAL BID PRN; Protocol PRN Reason: Rash Quetiapine Fumarate (Quetiapine Fumarate 200 Mg Tablet) 200 mg PO BID [facility] Last Admin: 03/16/25 08:33 Dose: 200 mg Quetiapine Fumarate (Quetiapine Fumarate 100 Mg Tablet) 100 mg PO DAILY@1200 [facility] Last Admin: 03/15/25 13:53 Dose: Not Given Senna (Sennosides 8.6 Mg Tablet) 8.6 mg PO Q48H [facility] Last Admin: 03/15/25 09:45 Dose: 8.6 mg Tamsulosin HCl (Tamsulosin Hcl 0.4 Mg Capsule) 0.4 mg PO DAILY [facility] Last Admin: 03/16/25 08:32 Dose: 0.4 mg Trazodone HCl (Trazodone Hcl 100 Mg Tablet) 100 mg PO BEDTIME [facility] Last Admin: 03/15/25 20:31 Dose: 100 mg Trazodone HCl (Trazodone Hcl 50 Mg Tablet) 50 mg PO BEDTIME PRN PRN Reason: Insomnia Last Admin: 03/15/25 22:55 Dose: 50 mg Allergies Allergies Allergy/AdvReac Type Severity Reaction Status Date / Time adhesive tape Allergy Intermediate itching Verified 03/10/25 19:48 and skin redness latex Allergy Intermediate skin rash Verified 03/10/25 19:48 and itching Seasonal Allergies Allergy Itching Verified 03/10/25 19:48 weed pollen Allergy stuffy nose Verified 03/10/25 19:48 DUST Allergy Unknown ITCHY/WATERY Uncoded 03/10/25 19:48 EYES surgical paper tape Allergy Unknown rash Uncoded 03/10/25 19:48 Tide Allergy Unknown rash Uncoded 03/10/25 19:48 Assessment & Plan Assessment & Plan (1) Mood disorder: Status: Acute Code(s): F39 - Unspecified mood [affective] disorder (2) Developmental delay, moderate: Status: Acute Code(s): R62.50 - Unspecified lack of expected normal physiological development in childhood Plan Ms. Ronquillo is a 69 year old woman with hx of developmental delay, dementia. She was brought back after discharged from [facility] [place] ED due to ongoing combative behaviors. She currently presents as alert, pleasant. No insight into what brought her to the hospital. PLAN 1. Inpatient level of care for stabilization, safety and containment. 2. emailed psychiatric provider, Tammy Randall for coordination of care. 3. continue current medication 4. while waiting in the ED- AVOID OVERMEDICATING IF AGITATION OCCURS, USE OLANZAPINE 5MG-10MG IM. DO NOT USE BENADRYL IM. 03/15 - pt was yelling and labile and was started on diazepam 2mg tid , but was sedated after 2 doses - one last pm and this am- will cut dose and dosing back- a quetiapine dose held today due to sedation 03/16 less sedated overall but sleeping in bed when provider saw her- less labile when awake- able to eat and swallow when awake- Reason for continued inpatient stay Substantial Risk for: inability to function and rapid decompensation Time Spent With Patient Time: Total time managing care of this patient today ____ minutes.
[2025-03-16] MEDS: QUEtiapine Fumarate 100 MG TABLET PO (11:45)
[2025-03-16 20:00] VITALS: BP 129/59; PULSE 77; RESP 16; TEMP 36; O2SAT 93
[2025-03-16] MEDS: carBAMazepine 200 MG TABLET 400 MG PO (21:38)
[2025-03-16] MEDS: Melatonin 3 MG TABLET 9 MG PO (21:39)
[2025-03-16] MEDS: Donepezil HCl 5 MG TABLET PO (21:39)
[2025-03-16] MEDS: traZODone HCL 100 MG TABLET PO (21:40)
[2025-03-17] MEDS: Levothyroxine Sodium 200 MCG TABLET PO (06:22)
--- NOTE | 2025-03-17 08:48 | P.PNPSI_ITS ---
Subjective Subjective Date of Service: 03/17/25 Reason For Visit: combative behaviors Subjective Notes: Section 12B Interim History: Pt slept through the night. Over the weekend pt presented as sedated with dose of valium, which has been decrease to 1mg po BID. This morning, she woke up allowed staff to facility a shower. She reports she is doing well and hopes to go home soon. No episodes of aggression or destruction. No psychosis or delusional content. Review of Systems Review of Systems Pt denies pain. NO SOB Yes Unobtainable due to mental status Mental Status Exam Mental Status Exam Narrative: Appearance: wearing casual clothing, goos hygiene, in NAD Behavior: calm Psychomotor: no agitation or retardation noted Speech: mumbles, difficult to understand at times, spontaneous TP: goal oriented- wanting to color TC: wanting to color Mood: good Affect: congruent SI: denies HI: denies VH/AH: no signs Delusions: no overt delusions Insight/judgment: impaired x2 alert, oriented to hospital, not so much to situation Diagnostics Vital Signs (24Hr): Vital Signs - 24 hr 03/16/25 20:00 Temperature 96.8 F Pulse Rate 77 Respiratory Rate 16 Blood Pressure 129/59 L Pulse Oximetry 93 Oxygen Delivery Method Room Air BMI result Body Mass Index 22.3 Labs 03/11/25 20:17 03/14/25 07:22 Medications Medications Current Medications Acetaminophen (Acetaminophen 325 Mg Tablet) 650 mg PO Q6H PRN PRN Reason: Headache/Pain, Scale 1-10 Last Admin: 03/14/25 11:08 Dose: 650 mg Al Hydroxide/Mg Hydroxide (Magnesium Hydrox/Alum Hydrox 30 Ml Oral.Susp) 30 ml PO Q6H PRN PRN Reason: Heartburn/Nausea Ascorbic Acid (Ascorbic Acid 500 Mg Tablet) 500 mg PO BID [facility] Last Admin: 03/16/25 21:38 Dose: 500 mg Aspirin (Aspirin Enteric Coated 81 Mg Tablet.Dr) 81 mg PO DAILY [facility] Last Admin: 03/16/25 08:31 Dose: 81 mg Carbamazepine (Carbamazepine 200 Mg Tablet) 200 mg PO DAILY [facility] Last Admin: 03/16/25 08:33 Dose: 200 mg Carbamazepine (Carbamazepine 200 Mg Tablet) 400 mg PO BEDTIME [facility] Last Admin: 03/16/25 21:38 Dose: 400 mg Diazepam (Diazepam 2 Mg Tablet) 1 mg PO BID [facility] Last Admin: 03/16/25 21:39 Dose: 1 mg Docusate Sodium (Docusate Sodium 100 Mg Capsule) 100 mg PO BID [facility] Last Admin: 03/16/25 21:39 Dose: 100 mg Donepezil HCl (Donepezil Hcl 5 Mg Tablet) 5 mg PO BEDTIME [facility] Last Admin: 03/16/25 21:39 Dose: 5 mg Ferrous Sulfate (Ferrous Sulfate 324 Mg Tablet.Dr) 324 mg PO MOWEFR@0900 [facility] Last Admin: 03/14/25 08:57 Dose: 324 mg Fluticasone Propionate (Fluticasone Propionate Nasal 16 Gm [place]) 1 spray NOSTRIL-B BID PRN PRN Reason: nasal congestion Haloperidol (Haloperidol 5 Mg Tablet) 5 mg PO TID PRN PRN Reason: agitation Last Admin: 03/15/25 22:56 Dose: 5 mg Levothyroxine Sodium (Levothyroxine Sodium 200 Mcg Tablet) 200 mcg PO DAILY@0600 [facility] Last Admin: 03/17/25 06:22 Dose: 200 mcg Loratadine (Loratadine 10 Mg Tablet) 10 mg PO DAILY [facility] Last Admin: 03/16/25 08:32 Dose: 10 mg Lorazepam (Lorazepam 1 Mg Tablet) 1 mg PO Q4H PRN PRN Reason: agitation Last Admin: 03/15/25 22:56 Dose: 1 mg Magnesium Hydroxide (Milk Of Magnesia 30 Ml Oral.Susp) 30 ml PO DAILY PRN PRN Reason: Constipation Melatonin (Melatonin 3 Mg Tablet) 9 mg PO BEDTIME [facility] Last Admin: 03/16/25 21:39 Dose: 9 mg Methenamine Hippurate (Methenamine Hippurate 1 Gm Tablet) 1 gm PO BID [facility] Last Admin: 03/16/25 21:39 Dose: 1 gm Multivitamins/Vitamin C (Multivitamin Tablet) 1 tab PO DAILY [facility] Last Admin: 03/16/25 08:33 Dose: 1 tab Nystatin (Nystatin Powder 15 Gm Bottle) 1 appl TOPICAL BID PRN; Protocol PRN Reason: Rash Quetiapine Fumarate (Quetiapine Fumarate 200 Mg Tablet) 200 mg PO BID [facility] Last Admin: 03/16/25 21:52 Dose: 200 mg Quetiapine Fumarate (Quetiapine Fumarate 100 Mg Tablet) 100 mg PO DAILY@1200 [facility] Last Admin: 03/16/25 11:45 Dose: 100 mg Senna (Sennosides 8.6 Mg Tablet) 8.6 mg PO Q48H [facility] Last Admin: 03/15/25 09:45 Dose: 8.6 mg Tamsulosin HCl (Tamsulosin Hcl 0.4 Mg Capsule) 0.4 mg PO DAILY [facility] Last Admin: 03/16/25 08:32 Dose: 0.4 mg Trazodone HCl (Trazodone Hcl 100 Mg Tablet) 100 mg PO BEDTIME [facility] Last Admin: 03/16/25 21:40 Dose: 100 mg Trazodone HCl (Trazodone Hcl 50 Mg Tablet) 50 mg PO BEDTIME PRN PRN Reason: Insomnia Last Admin: 03/15/25 22:55 Dose: 50 mg Allergies Allergies Allergy/AdvReac Type Severity Reaction Status Date / Time adhesive tape Allergy Intermediate itching Verified 03/10/25 19:48 and skin redness latex Allergy Intermediate skin rash Verified 03/10/25 19:48 and itching Seasonal Allergies Allergy Itching Verified 03/10/25 19:48 weed pollen Allergy stuffy nose Verified 03/10/25 19:48 DUST Allergy Unknown ITCHY/WATERY Uncoded 03/10/25 19:48 EYES surgical paper tape Allergy Unknown rash Uncoded 03/10/25 19:48 Tide Allergy Unknown rash Uncoded 03/10/25 19:48 Assessment & Plan Assessment & Plan (1) Mood disorder: Status: Acute Code(s): F39 - Unspecified mood [affective] disorder (2) Developmental delay, moderate: Status: Acute Code(s): R62.50 - Unspecified lack of expected normal physiological development in childhood Plan Ms. Ronquillo is a 69 year old woman with hx of developmental delay, dementia. She was brought back after discharged from [facility] due to ongoing combative behaviors. She currently presents as alert, pleasant. No insight into what brought her to the hospital. PLAN 1. Inpatient level of care for stabilization, safety and containment. 2. emailed psychiatric provider, Tammy Randall for coordination of care. 3. continue current medication 4. while waiting in the ED- AVOID OVERMEDICATING IF AGITATION OCCURS, USE OLANZAPINE 5MG-10MG IM. DO NOT USE BENADRYL IM. 03/15 - pt was yelling and labile and was started on diazepam 2mg tid , but was sedated after 2 doses - one last pm and this am- will cut dose and dosing back- a quetiapine dose held today due to sedation 03/17 dose of valium has been decreased over the weekend due to sedation. currently on 1mg po BID. no aggresion or explosive behaviors over the weekend. Reason for continued inpatient stay Substantial Risk for: inability to function Time Spent With Patient Time: Total time managing care of this patient today ____ minutes.
[2025-03-17] MEDS: Sennosides 8.6 MG TABLET PO (09:45)
[2025-03-17] MEDS: Aspirin Enteric Coated 81 MG TABLET.DR PO (09:45)
[2025-03-17] MEDS: Tamsulosin HCL 0.4 MG CAPSULE PO (09:45)
[2025-03-17] MEDS: Multivitamin TABLET 1 TAB PO (09:45)
[2025-03-17] MEDS: QUEtiapine Fumarate 200 MG TABLET PO ×2 (09:45→20:39)
[2025-03-17] MEDS: Loratadine 10 MG TABLET PO (09:45)
[2025-03-17] MEDS: Ascorbic Acid 500 MG TABLET PO ×2 (09:45→20:38)
[2025-03-17] MEDS: carBAMazepine 200 MG TABLET PO (09:45)
[2025-03-17] MEDS: Docusate Sodium 100 MG CAPSULE PO ×2 (09:45→20:37)
[2025-03-17] MEDS: Ferrous Sulfate 324 MG TABLET.DR PO (09:45)
[2025-03-17] MEDS: Methenamine Hippurate 1 GM TABLET PO ×2 (09:45→20:39)
[2025-03-17 09:46] VITALS: BP 138/63; PULSE 77; RESP 16; TEMP 36.8; O2SAT 95
[2025-03-17] MEDS: diazePAM 2 MG TABLET 1 MG PO ×2 (09:46→20:40)
[2025-03-17] MEDS: QUEtiapine Fumarate 100 MG TABLET PO (12:30)
--- NOTE | 2025-03-17 13:57 | MHC.CLN ---
F/U DIET=REGULAR. SKIN WITH DTI TO SACRUM. ENSURE TID TO PROMOTE WOUND HEALING. SUPPLEMENT PROVIDES 1050 KCALS, 60 G PROTEIN. PO VARIABLE WITH MOST MEALS 100%. FOLLOW FOR PO INTAKE AND SKIN INTEGRITY. RD TO MONITOR WEEKLY.
[2025-03-17 20:00] VITALS: BP 118/61; PULSE 82; RESP 18; TEMP 36.8; O2SAT 96
[2025-03-17] MEDS: Melatonin 3 MG TABLET 9 MG PO (20:37)
[2025-03-17] MEDS: traZODone HCL 100 MG TABLET PO (20:38)
[2025-03-17] MEDS: Donepezil HCl 5 MG TABLET PO (20:38)
[2025-03-17] MEDS: carBAMazepine 200 MG TABLET 400 MG PO (20:39)
[2025-03-18] MEDS: LORazepam 1 MG TABLET PO (01:05)
[2025-03-18] MEDS: HaloperidoL 5 MG TABLET PO (01:05)
[2025-03-18] MEDS: traZODone HCL 50 MG TABLET PO (01:05)
[2025-03-18] MEDS: Levothyroxine Sodium 200 MCG TABLET PO (05:58)
[2025-03-18 07:55] VITALS: BP 136/95; PULSE 70; RESP 18; TEMP 36.8; O2SAT 97
[2025-03-18] MEDS: QUEtiapine Fumarate 200 MG TABLET PO ×2 (08:41→19:59)
[2025-03-18] MEDS: Tamsulosin HCL 0.4 MG CAPSULE PO (08:41)
[2025-03-18] MEDS: Multivitamin TABLET 1 TAB PO (08:41)
[2025-03-18] MEDS: diazePAM 2 MG TABLET 1 MG PO ×2 (08:41→19:57)
[2025-03-18] MEDS: Ascorbic Acid 500 MG TABLET PO ×2 (08:41→19:58)
[2025-03-18] MEDS: Aspirin Enteric Coated 81 MG TABLET.DR PO (08:41)
[2025-03-18] MEDS: Loratadine 10 MG TABLET PO (08:41)
[2025-03-18] MEDS: Methenamine Hippurate 1 GM TABLET PO ×2 (08:41→20:00)
[2025-03-18] MEDS: Docusate Sodium 100 MG CAPSULE PO ×2 (08:42→20:00)
[2025-03-18] MEDS: carBAMazepine 200 MG TABLET PO ×2 (08:42→19:57)
--- NOTE | 2025-03-18 09:14 | P.PNPSI_ITS ---
Subjective Subjective Date of Service: 03/18/25 Reason For Visit: combative behaviors Subjective Notes: Section 7 Interim History: Pt slept through the night. Pt less reactive but does have moments of yelling out of frustration. No SI/HI. No psychosis or delusional content. ambulating with walker. She does allow direct care. Review of Systems Review of Systems Pt denies pain. NO SOB Yes Unobtainable due to mental status Mental Status Exam Mental Status Exam Narrative: Appearance: wearing casual clothing, goos hygiene, in NAD Behavior: calm Psychomotor: no agitation or retardation noted Speech: mumbles, difficult to understand at times, spontaneous TP: goal oriented- wanting to color TC: wanting to color Mood: good Affect: congruent SI: denies HI: denies VH/AH: no signs Delusions: no overt delusions Insight/judgment: impaired x2 alert, oriented to hospital, not so much to situation Diagnostics Vital Signs (24Hr): Vital Signs - 24 hr 03/17/25 09:46 03/17/25 20:00 Temperature 98.2 F 98.3 F Pulse Rate 77 82 Respiratory Rate 16 18 Blood Pressure 138/63 118/61 Pulse Oximetry 95 96 Oxygen Delivery Method Room Air Room Air BMI result Body Mass Index 22.3 Labs 03/11/25 20:17 03/14/25 07:22 Medications Medications Current Medications Acetaminophen (Acetaminophen 325 Mg Tablet) 650 mg PO Q6H PRN PRN Reason: Headache/Pain, Scale 1-10 Last Admin: 03/14/25 11:08 Dose: 650 mg Al Hydroxide/Mg Hydroxide (Magnesium Hydrox/Alum Hydrox 30 Ml Oral.Susp) 30 ml PO Q6H PRN PRN Reason: Heartburn/Nausea Ascorbic Acid (Ascorbic Acid 500 Mg Tablet) 500 mg PO BID [facility] Last Admin: 03/18/25 08:41 Dose: 500 mg Aspirin (Aspirin Enteric Coated 81 Mg Tablet.Dr) 81 mg PO DAILY [facility] Last Admin: 03/18/25 08:41 Dose: 81 mg Carbamazepine (Carbamazepine 200 Mg Tablet) 200 mg PO DAILY [facility] Last Admin: 03/18/25 08:42 Dose: 200 mg Carbamazepine (Carbamazepine 200 Mg Tablet) 400 mg PO BEDTIME [facility] Last Admin: 03/17/25 20:39 Dose: 400 mg Diazepam (Diazepam 2 Mg Tablet) 1 mg PO BID [facility] Last Admin: 03/18/25 08:41 Dose: 1 mg Diazepam (Diazepam 2 Mg Tablet) 2 mg PO BID PRN PRN Reason: agitation Docusate Sodium (Docusate Sodium 100 Mg Capsule) 100 mg PO BID [facility] Last Admin: 03/18/25 08:42 Dose: 100 mg Donepezil HCl (Donepezil Hcl 5 Mg Tablet) 5 mg PO BEDTIME [facility] Last Admin: 03/17/25 20:38 Dose: 5 mg Ferrous Sulfate (Ferrous Sulfate 324 Mg Tablet.) 324 mg PO MOWEFR@0900 [facility] Last Admin: 03/17/25 09:45 Dose: 324 mg Fluticasone Propionate (Fluticasone Propionate Nasal 16 Gm [place]) 1 spray NOSTRIL-B BID PRN PRN Reason: nasal congestion Haloperidol (Haloperidol 5 Mg Tablet) 5 mg PO TID PRN PRN Reason: agitation Last Admin: 03/18/25 01:05 Dose: 5 mg Levothyroxine Sodium (Levothyroxine Sodium 200 Mcg Tablet) 200 mcg PO DAILY@0600 [facility] Last Admin: 03/18/25 05:58 Dose: 200 mcg Loratadine (Loratadine 10 Mg Tablet) 10 mg PO DAILY [facility] Last Admin: 03/18/25 08:41 Dose: 10 mg Magnesium Hydroxide (Milk Of Magnesia 30 Ml Oral.Susp) 30 ml PO DAILY PRN PRN Reason: Constipation Melatonin (Melatonin 3 Mg Tablet) 9 mg PO BEDTIME [facility] Last Admin: 03/17/25 20:37 Dose: 9 mg Methenamine Hippurate (Methenamine Hippurate 1 Gm Tablet) 1 gm PO BID [facility] Last Admin: 03/18/25 08:41 Dose: 1 gm Multivitamins/Vitamin C (Multivitamin Tablet) 1 tab PO DAILY [facility] Last Admin: 03/18/25 08:41 Dose: 1 tab Nystatin (Nystatin Powder 15 Gm Bottle) 1 appl TOPICAL BID PRN; Protocol PRN Reason: Rash Quetiapine Fumarate (Quetiapine Fumarate 200 Mg Tablet) 200 mg PO BID [facility] Last Admin: 03/18/25 08:41 Dose: 200 mg Quetiapine Fumarate (Quetiapine Fumarate 100 Mg Tablet) 100 mg PO DAILY@1200 [facility] Last Admin: 03/17/25 12:30 Dose: 100 mg Senna (Sennosides 8.6 Mg Tablet) 8.6 mg PO Q48H [facility] Last Admin: 03/17/25 09:45 Dose: 8.6 mg Tamsulosin HCl (Tamsulosin Hcl 0.4 Mg Capsule) 0.4 mg PO DAILY [facility] Last Admin: 03/18/25 08:41 Dose: 0.4 mg Trazodone HCl (Trazodone Hcl 100 Mg Tablet) 100 mg PO BEDTIME [facility] Last Admin: 03/17/25 20:38 Dose: 100 mg Trazodone HCl (Trazodone Hcl 50 Mg Tablet) 50 mg PO BEDTIME PRN PRN Reason: Insomnia Last Admin: 03/18/25 01:05 Dose: 50 mg Allergies Allergies Allergy/AdvReac Type Severity Reaction Status Date / Time adhesive tape Allergy Intermediate itching Verified 03/10/25 19:48 and skin redness latex Allergy Intermediate skin rash Verified 03/10/25 19:48 and itching Seasonal Allergies Allergy Itching Verified 03/10/25 19:48 weed pollen Allergy stuffy nose Verified 03/10/25 19:48 DUST Allergy Unknown ITCHY/WATERY Uncoded 03/10/25 19:48 EYES surgical paper tape Allergy Unknown rash Uncoded 03/10/25 19:48 Tide Allergy Unknown rash Uncoded 03/10/25 19:48 Assessment & Plan Assessment & Plan (1) Mood disorder: Status: Acute Code(s): F39 - Unspecified mood [affective] disorder (2) Developmental delay, moderate: Status: Acute Code(s): R62.50 - Unspecified lack of expected normal physiological development in childhood Plan Ms. Ronquillo is a 69 year old woman with hx of developmental delay, dementia. She was brought back after discharged from [facility] due to ongoing combative behaviors. She currently presents as alert, pleasant. No insight into what brought her to the hospital. PLAN 1. Inpatient level of care for stabilization, safety and containment. 2. emailed psychiatric provider, Tammy Randall for coordination of care. 3. continue current medication 4. while waiting in the ED- AVOID OVERMEDICATING IF AGITATION OCCURS, USE OLANZAPINE 5MG-10MG IM. DO NOT USE BENADRYL IM. 03/15 - pt was yelling and labile and was started on diazepam 2mg tid , but was sedated after 2 doses - one last pm and this am- will cut dose and dosing back- a quetiapine dose held today due to sedation 03/17 dose of valium has been decreased over the weekend due to sedation. currently on 1mg po BID. no aggression or explosive behaviors over the weekend. 03/18 continue tx. Reason for continued inpatient stay Substantial Risk for: inability to function Time Spent With Patient Time: Total time managing care of this patient today ____ minutes.
[2025-03-18] MEDS: QUEtiapine Fumarate 100 MG TABLET PO (12:13)
[2025-03-18 19:54] VITALS: BP 136/69; PULSE 89; RESP 18; TEMP 36.3; O2SAT 98
[2025-03-18] MEDS: carBAMazepine 200 MG TABLET 400 MG PO (19:58)
[2025-03-18] MEDS: Donepezil HCl 5 MG TABLET PO (19:58)
[2025-03-18] MEDS: traZODone HCL 100 MG TABLET PO (19:59)
[2025-03-18] MEDS: Melatonin 3 MG TABLET 9 MG PO (19:59)
[2025-03-19] MEDS: Acetaminophen 325 MG TABLET 650 MG PO ×2 (00:05→10:38)
[2025-03-19] MEDS: traZODone HCL 50 MG TABLET PO (01:36)
[2025-03-19] MEDS: Levothyroxine Sodium 200 MCG TABLET PO (06:02)
[2025-03-19 07:56] VITALS: BP 136/69; PULSE 72; RESP 20; TEMP 36.8; O2SAT 98
[2025-03-19] MEDS: Docusate Sodium 100 MG CAPSULE PO ×2 (07:58→21:27)
[2025-03-19] MEDS: diazePAM 2 MG TABLET 1 MG PO ×2 (07:59→21:25)
[2025-03-19] MEDS: carBAMazepine 200 MG TABLET PO (07:59)
[2025-03-19] MEDS: Ascorbic Acid 500 MG TABLET PO ×2 (07:59→21:26)
[2025-03-19] MEDS: Tamsulosin HCL 0.4 MG CAPSULE PO (07:59)
[2025-03-19] MEDS: Aspirin Enteric Coated 81 MG TABLET.DR PO (08:00)
[2025-03-19] MEDS: Multivitamin TABLET 1 TAB PO (08:00)
[2025-03-19] MEDS: QUEtiapine Fumarate 200 MG TABLET PO ×2 (08:00→21:25)
[2025-03-19] MEDS: Loratadine 10 MG TABLET PO (08:00)
[2025-03-19] MEDS: Ferrous Sulfate 324 MG TABLET.DR PO (08:00)
[2025-03-19] MEDS: Methenamine Hippurate 1 GM TABLET PO ×2 (08:01→21:25)
[2025-03-19] MEDS: Sennosides 8.6 MG TABLET PO (08:01)
[2025-03-19] MEDS: QUEtiapine Fumarate 100 MG TABLET PO (12:19)
[2025-03-19 20:00] VITALS: BP 122/59; PULSE 84; TEMP 36.2; O2SAT 97
--- NOTE | 2025-03-19 20:38 | HO.PSYCHPN ---
Subjective Subjective Date of Service: 03/19/25 Reason For Visit: combative behaviors Subjective Notes: Section 7 Interim History: Pt slept through the night. Pt less reactive but does have moments of yelling out of frustration. No SI/HI. No psychosis or delusional content. ambulating with walker. She does allow direct care. No need for IM. No significant destructive behaviors. Review of Systems Review of Systems Pt denies pain. NO SOB Yes Unobtainable due to mental status Mental Status Exam Mental Status Exam Narrative: Appearance: wearing casual clothing, goos hygiene, in NAD Behavior: calm Psychomotor: no agitation or retardation noted Speech: mumbles, difficult to understand at times, spontaneous TP: goal oriented- wanting to color TC: wanting to color Mood: good Affect: congruent SI: denies HI: denies VH/AH: no signs Delusions: no overt delusions Insight/judgment: impaired x2 alert, oriented to hospital, not so much to situation Diagnostics Vital Signs (24Hr): Vital Signs - 24 hr 03/19/25 07:56 03/19/25 20:00 Temperature 98.2 F 97.2 F Pulse Rate 72 84 Respiratory Rate 20 Blood Pressure 136/69 122/59 L Pulse Oximetry 98 97 Oxygen Delivery Method Room Air Room Air BMI result Body Mass Index 22.3 Labs 03/11/25 20:17 03/14/25 07:22 Medications Medications Current Medications Acetaminophen (Acetaminophen 325 Mg Tablet) 650 mg PO Q6H PRN PRN Reason: Headache/Pain, Scale 1-10 Last Admin: 03/19/25 10:38 Dose: 650 mg Al Hydroxide/Mg Hydroxide (Magnesium Hydrox/Alum Hydrox 30 Ml Oral.Susp) 30 ml PO Q6H PRN PRN Reason: Heartburn/Nausea Ascorbic Acid (Ascorbic Acid 500 Mg Tablet) 500 mg PO BID [facility] Last Admin: 03/19/25 07:59 Dose: 500 mg Aspirin (Aspirin Enteric Coated 81 Mg Tablet.Dr) 81 mg PO DAILY [facility] Last Admin: 03/19/25 08:00 Dose: 81 mg Carbamazepine (Carbamazepine 200 Mg Tablet) 200 mg PO DAILY [facility] Last Admin: 03/19/25 07:59 Dose: 200 mg Carbamazepine (Carbamazepine 200 Mg Tablet) 400 mg PO BEDTIME [facility] Last Admin: 03/18/25 19:58 Dose: 400 mg Diazepam (Diazepam 2 Mg Tablet) 1 mg PO BID [facility] Last Admin: 03/19/25 07:59 Dose: 1 mg Diazepam (Diazepam 2 Mg Tablet) 2 mg PO BID PRN PRN Reason: agitation Docusate Sodium (Docusate Sodium 100 Mg Capsule) 100 mg PO BID [facility] Last Admin: 03/19/25 07:58 Dose: 100 mg Donepezil HCl (Donepezil Hcl 5 Mg Tablet) 5 mg PO BEDTIME [facility] Last Admin: 03/18/25 19:58 Dose: 5 mg Ferrous Sulfate (Ferrous Sulfate 324 Mg Tablet.Dr) 324 mg PO MOWEFR@0900 [facility] Last Admin: 03/19/25 08:00 Dose: 324 mg Fluticasone Propionate (Fluticasone Propionate Nasal 16 Gm [place]) 1 spray NOSTRIL-B BID PRN PRN Reason: nasal congestion Haloperidol (Haloperidol 5 Mg Tablet) 5 mg PO TID PRN PRN Reason: agitation Last Admin: 03/18/25 01:05 Dose: 5 mg Levothyroxine Sodium (Levothyroxine Sodium 200 Mcg Tablet) 200 mcg PO DAILY@0600 [facility] Last Admin: 03/19/25 06:02 Dose: 200 mcg Loratadine (Loratadine 10 Mg Tablet) 10 mg PO DAILY [facility] Last Admin: 03/19/25 08:00 Dose: 10 mg Magnesium Hydroxide (Milk Of Magnesia 30 Ml Oral.Susp) 30 ml PO DAILY PRN PRN Reason: Constipation Melatonin (Melatonin 3 Mg Tablet) 9 mg PO BEDTIME [facility] Last Admin: 03/18/25 19:59 Dose: 9 mg Methenamine Hippurate (Methenamine Hippurate 1 Gm Tablet) 1 gm PO BID [facility] Last Admin: 03/19/25 08:01 Dose: 1 gm Multivitamins/Vitamin C (Multivitamin Tablet) 1 tab PO DAILY [facility] Last Admin: 03/19/25 08:00 Dose: 1 tab Nystatin (Nystatin Powder 15 Gm Bottle) 1 appl TOPICAL BID PRN; Protocol PRN Reason: Rash Quetiapine Fumarate (Quetiapine Fumarate 200 Mg Tablet) 200 mg PO BID [facility] Last Admin: 03/19/25 08:00 Dose: 200 mg Quetiapine Fumarate (Quetiapine Fumarate 100 Mg Tablet) 100 mg PO DAILY@1200 [facility] Last Admin: 03/19/25 12:19 Dose: 100 mg Senna (Sennosides 8.6 Mg Tablet) 8.6 mg PO Q48H [facility] Last Admin: 03/19/25 08:01 Dose: 8.6 mg Tamsulosin HCl (Tamsulosin Hcl 0.4 Mg Capsule) 0.4 mg PO DAILY [facility] Last Admin: 03/19/25 07:59 Dose: 0.4 mg Trazodone HCl (Trazodone Hcl 100 Mg Tablet) 100 mg PO BEDTIME [facility] Last Admin: 03/18/25 19:59 Dose: 100 mg Trazodone HCl (Trazodone Hcl 50 Mg Tablet) 50 mg PO BEDTIME PRN PRN Reason: Insomnia Last Admin: 03/19/25 01:36 Dose: 50 mg Allergies Allergies Allergy/AdvReac Type Severity Reaction Status Date / Time adhesive tape Allergy Intermediate itching Verified 03/10/25 19:48 and skin redness latex Allergy Intermediate skin rash Verified 03/10/25 19:48 and itching Seasonal Allergies Allergy Itching Verified 03/10/25 19:48 weed pollen Allergy stuffy nose Verified 03/10/25 19:48 DUST Allergy Unknown ITCHY/WATERY Uncoded 03/10/25 19:48 EYES surgical paper tape Allergy Unknown rash Uncoded 03/10/25 19:48 Tide Allergy Unknown rash Uncoded 03/10/25 19:48 Assessment & Plan Assessment & Plan (1) Mood disorder: Status: Acute Code(s): F39 - Unspecified mood [affective] disorder (2) Developmental delay, moderate: Status: Acute Code(s): R62.50 - Unspecified lack of expected normal physiological development in childhood Plan Ms. Ronquillo is a 69 year old woman with hx of developmental delay, dementia. She was brought back after discharged from [facility] due to ongoing combative behaviors. She currently presents as alert, pleasant. No insight into what brought her to the hospital. PLAN 03/15 - pt was yelling and labile and was started on diazepam 2mg tid , but was sedated after 2 doses - one last pm and this am- will cut dose and dosing back- a quetiapine dose held today due to sedation 03/17 dose of valium has been decreased over the weekend due to sedation. currently on 1mg po BID. no aggression or explosive behaviors over the weekend. 03/18 continue tx. 03/19 continue tx. Reason for continued inpatient stay Substantial Risk for: inability to function Time Spent With Patient Time: Total time managing care of this patient today ____ minutes.
[2025-03-19] MEDS: carBAMazepine 200 MG TABLET 400 MG PO (21:24)
[2025-03-19] MEDS: Melatonin 3 MG TABLET 9 MG PO (21:24)
[2025-03-19] MEDS: Donepezil HCl 5 MG TABLET PO (21:26)
[2025-03-19] MEDS: traZODone HCL 100 MG TABLET PO (21:27)
[2025-03-20] MEDS: HaloperidoL 5 MG TABLET PO ×2 (01:26→09:17)
[2025-03-20] MEDS: traZODone HCL 50 MG TABLET PO (01:26)
[2025-03-20] MEDS: diazePAM 2 MG TABLET PO (01:31)
[2025-03-20] MEDS: Levothyroxine Sodium 200 MCG TABLET PO (06:13)
[2025-03-20 09:15] VITALS: BP 130/67; PULSE 81; RESP 16; TEMP 37; O2SAT 94
[2025-03-20] MEDS: carBAMazepine 200 MG TABLET PO (09:19)
[2025-03-20] MEDS: QUEtiapine Fumarate 200 MG TABLET PO ×2 (09:20→20:03)
[2025-03-20] MEDS: Ascorbic Acid 500 MG TABLET PO ×2 (09:20→20:03)
[2025-03-20] MEDS: Docusate Sodium 100 MG CAPSULE PO ×2 (09:20→20:03)
[2025-03-20] MEDS: Loratadine 10 MG TABLET PO (09:20)
[2025-03-20] MEDS: diazePAM 2 MG TABLET 1 MG PO ×2 (09:20→20:03)
[2025-03-20] MEDS: Tamsulosin HCL 0.4 MG CAPSULE PO (09:20)
[2025-03-20] MEDS: Methenamine Hippurate 1 GM TABLET PO ×2 (09:22→20:02)
[2025-03-20] MEDS: Multivitamin TABLET 1 TAB PO (09:22)
[2025-03-20] MEDS: Aspirin Enteric Coated 81 MG TABLET.DR PO (09:22)
[2025-03-20] MEDS: QUEtiapine Fumarate 100 MG TABLET PO (12:38)
[2025-03-20 13:43] VITALS: BMI 23.5
[2025-03-20 20:00] VITALS: BP 118/60; PULSE 71; RESP 16; TEMP 36; O2SAT 96
[2025-03-20] MEDS: carBAMazepine 200 MG TABLET 400 MG PO (20:02)
[2025-03-20] MEDS: traZODone HCL 100 MG TABLET PO (20:03)
[2025-03-20] MEDS: Donepezil HCl 5 MG TABLET PO (20:03)
[2025-03-20] MEDS: Melatonin 3 MG TABLET 9 MG PO (20:03)
--- NOTE | 2025-03-20 21:38 | HO.PSYCHPN ---
Subjective Subjective Date of Service: 03/20/25 Reason For Visit: combative behaviors Subjective Notes: Conditional Voluntary Interim History: Pt slept through the night. Pt less reactive but does have moments of yelling out of frustration. No SI/HI. No psychosis or delusional content. ambulating with walker. She does allow direct care. No need for IM. No significant destructive behaviors. Review of Systems Review of Systems Pt denies pain. NO SOB Yes Unobtainable due to mental status Mental Status Exam Mental Status Exam Narrative: Appearance: wearing casual clothing, goos hygiene, in NAD Behavior: calm Psychomotor: no agitation or retardation noted Speech: mumbles, difficult to understand at times, spontaneous TP: goal oriented- wanting to color TC: wanting to color Mood: good Affect: congruent SI: denies HI: denies VH/AH: no signs Delusions: no overt delusions Insight/judgment: impaired x2 alert, oriented to hospital, not so much to situation Diagnostics Vital Signs (24Hr): Vital Signs - 24 hr 03/20/25 09:15 03/20/25 20:00 Temperature 98.6 F 96.8 F Pulse Rate 81 71 Respiratory Rate 16 16 Blood Pressure 130/67 118/60 Pulse Oximetry 94 96 Oxygen Delivery Method Room Air Room Air BMI result Body Mass Index 23.5 Labs 03/11/25 20:17 03/14/25 07:22 Medications Medications Current Medications Acetaminophen (Acetaminophen 325 Mg Tablet) 650 mg PO Q6H PRN PRN Reason: Headache/Pain, Scale 1-10 Last Admin: 03/19/25 10:38 Dose: 650 mg Al Hydroxide/Mg Hydroxide (Magnesium Hydrox/Alum Hydrox 30 Ml Oral.Susp) 30 ml PO Q6H PRN PRN Reason: Heartburn/Nausea Ascorbic Acid (Ascorbic Acid 500 Mg Tablet) 500 mg PO BID [facility] Last Admin: 03/20/25 20:03 Dose: 500 mg Aspirin (Aspirin Enteric Coated 81 Mg Tablet.Dr) 81 mg PO DAILY [facility] Last Admin: 03/20/25 09:22 Dose: 81 mg Carbamazepine (Carbamazepine 200 Mg Tablet) 200 mg PO DAILY [facility] Last Admin: 03/20/25 09:19 Dose: 200 mg Carbamazepine (Carbamazepine 200 Mg Tablet) 400 mg PO BEDTIME [facility] Last Admin: 03/20/25 20:02 Dose: 400 mg Diazepam (Diazepam 2 Mg Tablet) 2 mg PO BID PRN PRN Reason: agitation Last Admin: 03/20/25 01:31 Dose: 2 mg Docusate Sodium (Docusate Sodium 100 Mg Capsule) 100 mg PO BID [facility] Last Admin: 03/20/25 20:03 Dose: 100 mg Donepezil HCl (Donepezil Hcl 5 Mg Tablet) 5 mg PO BEDTIME [facility] Last Admin: 03/20/25 20:03 Dose: 5 mg Ferrous Sulfate (Ferrous Sulfate 324 Mg Tablet.Dr) 324 mg PO MOWEFR@0900 [facility] Last Admin: 03/19/25 08:00 Dose: 324 mg Fluticasone Propionate (Fluticasone Propionate Nasal 16 Gm [place]) 1 spray NOSTRIL-B BID PRN PRN Reason: nasal congestion Haloperidol (Haloperidol 5 Mg Tablet) 5 mg PO TID PRN PRN Reason: agitation Last Admin: 03/20/25 09:17 Dose: 5 mg Levothyroxine Sodium (Levothyroxine Sodium 200 Mcg Tablet) 200 mcg PO DAILY@0600 [facility] Last Admin: 03/20/25 06:13 Dose: 200 mcg Loratadine (Loratadine 10 Mg Tablet) 10 mg PO DAILY [facility] Last Admin: 03/20/25 09:20 Dose: 10 mg Magnesium Hydroxide (Milk Of Magnesia 30 Ml Oral.Susp) 30 ml PO DAILY PRN PRN Reason: Constipation Melatonin (Melatonin 3 Mg Tablet) 9 mg PO BEDTIME [facility] Last Admin: 03/20/25 20:03 Dose: 9 mg Methenamine Hippurate (Methenamine Hippurate 1 Gm Tablet) 1 gm PO BID [facility] Last Admin: 03/20/25 20:02 Dose: 1 gm Multivitamins/Vitamin C (Multivitamin Tablet) 1 tab PO DAILY [facility] Last Admin: 03/20/25 09:22 Dose: 1 tab Nystatin (Nystatin Powder 15 Gm Bottle) 1 appl TOPICAL BID PRN; Protocol PRN Reason: Rash Quetiapine Fumarate (Quetiapine Fumarate 200 Mg Tablet) 200 mg PO BID [facility] Last Admin: 03/20/25 20:03 Dose: 200 mg Quetiapine Fumarate (Quetiapine Fumarate 100 Mg Tablet) 100 mg PO DAILY@1200 [facility] Last Admin: 03/20/25 12:38 Dose: 100 mg Senna (Sennosides 8.6 Mg Tablet) 8.6 mg PO Q48H [facility] Last Admin: 03/19/25 08:01 Dose: 8.6 mg Tamsulosin HCl (Tamsulosin Hcl 0.4 Mg Capsule) 0.4 mg PO DAILY [facility] Last Admin: 03/20/25 09:20 Dose: 0.4 mg Trazodone HCl (Trazodone Hcl 100 Mg Tablet) 100 mg PO BEDTIME DANA Last Admin: 03/20/25 20:03 Dose: 100 mg Trazodone HCl (Trazodone Hcl 50 Mg Tablet) 50 mg PO BEDTIME PRN PRN Reason: Insomnia Last Admin: 03/20/25 01:26 Dose: 50 mg Allergies Allergies Allergy/AdvReac Type Severity Reaction Status Date / Time adhesive tape Allergy Intermediate itching Verified 03/10/25 19:48 and skin redness latex Allergy Intermediate skin rash Verified 03/10/25 19:48 and itching Seasonal Allergies Allergy Itching Verified 03/10/25 19:48 weed pollen Allergy stuffy nose Verified 03/10/25 19:48 DUST Allergy Unknown ITCHY/WATERY Uncoded 03/10/25 19:48 EYES surgical paper tape Allergy Unknown rash Uncoded 03/10/25 19:48 Tide Allergy Unknown rash Uncoded 03/10/25 19:48 Assessment & Plan Assessment & Plan (1) Mood disorder: Status: Acute Code(s): F39 - Unspecified mood [affective] disorder (2) Developmental delay, moderate: Status: Acute Code(s): R62.50 - Unspecified lack of expected normal physiological development in childhood Plan Ms. Ronquillo is a 69 year old woman with hx of developmental delay, dementia. She was brought back after discharged from [facility] due to ongoing combative behaviors. She currently presents as alert, pleasant. No insight into what brought her to the hospital. PLAN 03/15 - pt was yelling and labile and was started on diazepam 2mg tid , but was sedated after 2 doses - one last pm and this am- will cut dose and dosing back- a quetiapine dose held today due to sedation 03/17 dose of valium has been decreased over the weekend due to sedation. currently on 1mg po BID. no aggression or explosive behaviors over the weekend. 03/18 continue tx. 03/19 continue tx 03/20 continue tx. Reason for continued inpatient stay Substantial Risk for: inability to function Time Spent With Patient Time: Total time managing care of this patient today ____ minutes.
[2025-03-21] MEDS: Levothyroxine Sodium 200 MCG TABLET PO (05:20)
[2025-03-21 08:00] VITALS: BP 144/68; PULSE 63; RESP 16; TEMP 2.8; TEMP 37.1
[2025-03-21] MEDS: Ferrous Sulfate 324 MG TABLET.DR PO (08:28)
[2025-03-21] MEDS: Sennosides 8.6 MG TABLET PO (08:28)
[2025-03-21] MEDS: Loratadine 10 MG TABLET PO (08:28)
[2025-03-21] MEDS: carBAMazepine 200 MG TABLET PO (08:28)
[2025-03-21] MEDS: Tamsulosin HCL 0.4 MG CAPSULE PO (08:28)
[2025-03-21] MEDS: QUEtiapine Fumarate 200 MG TABLET PO ×2 (08:29→21:27)
[2025-03-21] MEDS: Multivitamin TABLET 1 TAB PO (08:29)
[2025-03-21] MEDS: Docusate Sodium 100 MG CAPSULE PO ×2 (08:29→21:27)
[2025-03-21] MEDS: Ascorbic Acid 500 MG TABLET PO ×2 (08:29→21:27)
[2025-03-21] MEDS: Methenamine Hippurate 1 GM TABLET PO ×2 (08:30→21:26)
[2025-03-21] MEDS: Aspirin Enteric Coated 81 MG TABLET.DR PO (08:30)
--- NOTE | 2025-03-21 08:45 | P.PNPSI_ITS ---
Subjective Subjective Date of Service: 03/21/25 Reason For Visit: combative behaviors Subjective Notes: Section 7 Interim History: Pt slept through the night. Pt less reactive but does have moments of yelling out of frustration. No SI/HI. No psychosis or delusional content. ambulating with walker. She does allow direct care. No need for IM. No significant destructive behaviors. had meeting with director and RN- discussed that here on the unit, pt has not had aggression towards others nor has engaged in property destruction. we discussed d/c on Monday. also discussed addition of valium. Review of Systems Review of Systems Pt denies pain. NO SOB Yes Unobtainable due to mental status Mental Status Exam Mental Status Exam Narrative: Appearance: wearing casual clothing, goos hygiene, in NAD Behavior: calm Psychomotor: no agitation or retardation noted Speech: mumbles, difficult to understand at times, spontaneous TP: goal oriented- wanting to color TC: wanting to color Mood: good Affect: congruent SI: denies HI: denies VH/AH: no signs Delusions: no overt delusions Insight/judgment: impaired x2 alert, oriented to hospital, not so much to situation Diagnostics Vital Signs (24Hr): Vital Signs - 24 hr 03/20/25 09:15 03/20/25 20:00 03/21/25 08:00 Temperature 98.6 F 96.8 F 37.1 F L Pulse Rate 81 71 63 Respiratory Rate 16 16 16 Blood Pressure 130/67 118/60 144/68 H Pulse Oximetry 94 96 Oxygen Delivery Method Room Air Room Air Room Air Oxygen Flow Rate 95 BMI result Body Mass Index 23.5 Labs 03/11/25 20:17 03/14/25 07:22 Medications Medications Current Medications Acetaminophen (Acetaminophen 325 Mg Tablet) 650 mg PO Q6H PRN PRN Reason: Headache/Pain, Scale 1-10 Last Admin: 03/19/25 10:38 Dose: 650 mg Al Hydroxide/Mg Hydroxide (Magnesium Hydrox/Alum Hydrox 30 Ml Oral.Susp) 30 ml PO Q6H PRN PRN Reason: Heartburn/Nausea Ascorbic Acid (Ascorbic Acid 500 Mg Tablet) 500 mg PO BID [facility] Last Admin: 03/21/25 08:29 Dose: 500 mg Aspirin (Aspirin Enteric Coated 81 Mg Tablet.Dr) 81 mg PO DAILY [facility] Last Admin: 03/21/25 08:30 Dose: 81 mg Carbamazepine (Carbamazepine 200 Mg Tablet) 200 mg PO DAILY [facility] Last Admin: 03/21/25 08:28 Dose: 200 mg Carbamazepine (Carbamazepine 200 Mg Tablet) 400 mg PO BEDTIME [facility] Last Admin: 03/20/25 20:02 Dose: 400 mg Diazepam (Diazepam 2 Mg Tablet) 2 mg PO BID PRN PRN Reason: agitation Last Admin: 03/20/25 01:31 Dose: 2 mg Diazepam (Diazepam 2 Mg Tablet) 1 mg PO BID [facility] Docusate Sodium (Docusate Sodium 100 Mg Capsule) 100 mg PO BID [facility] Last Admin: 03/21/25 08:29 Dose: 100 mg Donepezil HCl (Donepezil Hcl 5 Mg Tablet) 5 mg PO BEDTIME [facility] Last Admin: 03/20/25 20:03 Dose: 5 mg Ferrous Sulfate (Ferrous Sulfate 324 Mg Tablet.Dr) 324 mg PO MOWEFR@0900 [facility] Last Admin: 03/21/25 08:28 Dose: 324 mg Fluticasone Propionate (Fluticasone Propionate Nasal 16 Gm [place]) 1 spray NOSTRIL-B BID PRN PRN Reason: nasal congestion Haloperidol (Haloperidol 5 Mg Tablet) 5 mg PO TID PRN PRN Reason: agitation Last Admin: 03/20/25 09:17 Dose: 5 mg Levothyroxine Sodium (Levothyroxine Sodium 200 Mcg Tablet) 200 mcg PO DAILY@0600 [facility] Last Admin: 03/21/25 05:20 Dose: 200 mcg Loratadine (Loratadine 10 Mg Tablet) 10 mg PO DAILY [facility] Last Admin: 03/21/25 08:28 Dose: 10 mg Magnesium Hydroxide (Milk Of Magnesia 30 Ml Oral.Susp) 30 ml PO DAILY PRN PRN Reason: Constipation Melatonin (Melatonin 3 Mg Tablet) 9 mg PO BEDTIME [facility] Last Admin: 03/20/25 20:03 Dose: 9 mg Methenamine Hippurate (Methenamine Hippurate 1 Gm Tablet) 1 gm PO BID [facility] Last Admin: 03/21/25 08:30 Dose: 1 gm Multivitamins/Vitamin C (Multivitamin Tablet) 1 tab PO DAILY [facility] Last Admin: 03/21/25 08:29 Dose: 1 tab Nystatin (Nystatin Powder 15 Gm Bottle) 1 appl TOPICAL BID PRN; Protocol PRN Reason: Rash Quetiapine Fumarate (Quetiapine Fumarate 200 Mg Tablet) 200 mg PO BID [facility] Last Admin: 03/21/25 08:29 Dose: 200 mg Quetiapine Fumarate (Quetiapine Fumarate 100 Mg Tablet) 100 mg PO DAILY@1200 [facility] Last Admin: 03/20/25 12:38 Dose: 100 mg Senna (Sennosides 8.6 Mg Tablet) 8.6 mg PO Q48H [facility] Last Admin: 03/21/25 08:28 Dose: 8.6 mg Tamsulosin HCl (Tamsulosin Hcl 0.4 Mg Capsule) 0.4 mg PO DAILY [facility] Last Admin: 03/21/25 08:28 Dose: 0.4 mg Trazodone HCl (Trazodone Hcl 100 Mg Tablet) 100 mg PO BEDTIME [facility] Last Admin: 03/20/25 20:03 Dose: 100 mg Trazodone HCl (Trazodone Hcl 50 Mg Tablet) 50 mg PO BEDTIME PRN PRN Reason: Insomnia Last Admin: 03/20/25 01:26 Dose: 50 mg Allergies Allergies Allergy/AdvReac Type Severity Reaction Status Date / Time adhesive tape Allergy Intermediate itching Verified 03/10/25 19:48 and skin redness latex Allergy Intermediate skin rash Verified 03/10/25 19:48 and itching Seasonal Allergies Allergy Itching Verified 03/10/25 19:48 weed pollen Allergy stuffy nose Verified 03/10/25 19:48 DUST Allergy Unknown ITCHY/WATERY Uncoded 03/10/25 19:48 EYES surgical paper tape Allergy Unknown rash Uncoded 03/10/25 19:48 Tide Allergy Unknown rash Uncoded 03/10/25 19:48 Assessment & Plan Assessment & Plan (1) Mood disorder: Status: Acute Code(s): F39 - Unspecified mood [affective] disorder (2) Developmental delay, moderate: Status: Acute Code(s): R62.50 - Unspecified lack of expected normal physiological development in childhood Plan Ms. Ronquillo is a 69 year old woman with hx of developmental delay, dementia. She was brought back after discharged from [facility] due to ongoing combative behaviors. She currently presents as alert, pleasant. No insight into what brought her to the hospital. PLAN 03/15 - pt was yelling and labile and was started on diazepam 2mg tid , but was sedated after 2 doses - one last pm and this am- will cut dose and dosing back- a quetiapine dose held today due to sedation 03/17 dose of valium has been decreased over the weekend due to sedation. currently on 1mg po BID. no aggression or explosive behaviors over the weekend. 03/18 continue tx. 03/19 continue tx 03/20 continue tx. 03/21 continue tx. Reason for continued inpatient stay Substantial Risk for: inability to function Time Spent With Patient Time: Total time managing care of this patient today ____ minutes.
[2025-03-21] MEDS: diazePAM 2 MG TABLET 1 MG PO ×2 (10:26→21:26)
[2025-03-21] MEDS: QUEtiapine Fumarate 100 MG TABLET PO (12:01)
[2025-03-21] MEDS: diazePAM 2 MG TABLET PO (17:13)
[2025-03-21 20:00] VITALS: BP 140/65; PULSE 70; RESP 16; TEMP 36.6; O2SAT 97
[2025-03-21] MEDS: Melatonin 3 MG TABLET 9 MG PO (21:26)
[2025-03-21] MEDS: carBAMazepine 200 MG TABLET 400 MG PO (21:26)
[2025-03-21] MEDS: Donepezil HCl 5 MG TABLET PO (21:26)
[2025-03-21] MEDS: traZODone HCL 100 MG TABLET PO (21:27)
[2025-03-22] MEDS: Levothyroxine Sodium 200 MCG TABLET PO (06:16)
[2025-03-22 08:00] VITALS: BP 157/72; RESP 16; TEMP 37.4; O2SAT 98
[2025-03-22] MEDS: Multivitamin TABLET 1 TAB PO (09:07)
[2025-03-22] MEDS: Ascorbic Acid 500 MG TABLET PO ×2 (09:07→20:31)
[2025-03-22] MEDS: Docusate Sodium 100 MG CAPSULE PO ×2 (09:07→20:31)
[2025-03-22] MEDS: Methenamine Hippurate 1 GM TABLET PO ×2 (09:07→20:29)
[2025-03-22] MEDS: diazePAM 2 MG TABLET 1 MG PO ×2 (09:08→20:31)
[2025-03-22] MEDS: Loratadine 10 MG TABLET PO (09:08)
[2025-03-22] MEDS: QUEtiapine Fumarate 200 MG TABLET PO ×2 (09:08→20:31)
[2025-03-22] MEDS: carBAMazepine 200 MG TABLET PO (09:08)
[2025-03-22] MEDS: Aspirin Enteric Coated 81 MG TABLET.DR PO (09:08)
[2025-03-22] MEDS: Tamsulosin HCL 0.4 MG CAPSULE PO (09:08)
[2025-03-22] MEDS: diazePAM 2 MG TABLET PO (11:31)
[2025-03-22] MEDS: QUEtiapine Fumarate 100 MG TABLET PO (11:31)
--- NOTE | 2025-03-22 12:13 | P.PNPSI_ITS ---
Subjective Subjective Date of Service: 03/22/25 Reason For Visit: combative behaviors Subjective Notes: Conditional Voluntary Interim History: Patient was seen and discussed in rounds today. Records and plans were reviewed. Her she has been upset over discharge planning cancellation. Eating and sleeping adequately. No behavioral issues. No changes were made today Review of Systems Review of Systems Yes Unobtainable due to mental status Mental Status Exam Mental Status Exam Narrative: In today's visit she is alert, pleasant and attempts at being engaged and interact. Speech is hard to understand. No acute signs observed. No dangerous behaviors. No suicidal ideations. Cognitively impaired. Judgment is impaired Diagnostics Vital Signs (24Hr): Vital Signs - 24 hr 03/21/25 20:00 03/22/25 08:00 Temperature 98 F 99.3 F Pulse Rate 70 Respiratory Rate 16 16 Blood Pressure 140/65 H 157/72 H Pulse Oximetry 97 98 Oxygen Delivery Method Room Air Room Air BMI result Body Mass Index 23.5 Labs 03/11/25 20:17 03/14/25 07:22 Medications Medications Current Medications Acetaminophen (Acetaminophen 325 Mg Tablet) 650 mg PO Q6H PRN PRN Reason: Headache/Pain, Scale 1-10 Last Admin: 03/19/25 10:38 Dose: 650 mg Al Hydroxide/Mg Hydroxide (Magnesium Hydrox/Alum Hydrox 30 Ml Oral.Susp) 30 ml PO Q6H PRN PRN Reason: Heartburn/Nausea Ascorbic Acid (Ascorbic Acid 500 Mg Tablet) 500 mg PO BID [facility] Last Admin: 03/22/25 09:07 Dose: 500 mg Aspirin (Aspirin Enteric Coated 81 Mg Tablet.) 81 mg PO DAILY [facility] Last Admin: 03/22/25 09:08 Dose: 81 mg Carbamazepine (Carbamazepine 200 Mg Tablet) 200 mg PO DAILY [facility] Last Admin: 03/22/25 09:08 Dose: 200 mg Carbamazepine (Carbamazepine 200 Mg Tablet) 400 mg PO BEDTIME [facility] Last Admin: 03/21/25 21:26 Dose: 400 mg Diazepam (Diazepam 2 Mg Tablet) 2 mg PO BID PRN PRN Reason: agitation Last Admin: 03/22/25 11:31 Dose: 2 mg Diazepam (Diazepam 2 Mg Tablet) 1 mg PO BID [facility] Last Admin: 03/22/25 09:08 Dose: 1 mg Docusate Sodium (Docusate Sodium 100 Mg Capsule) 100 mg PO BID [facility] Last Admin: 03/22/25 09:07 Dose: 100 mg Donepezil HCl (Donepezil Hcl 5 Mg Tablet) 5 mg PO BEDTIME [facility] Last Admin: 03/21/25 21:26 Dose: 5 mg Ferrous Sulfate (Ferrous Sulfate 324 Mg Tablet.Dr) 324 mg PO MOWEFR@0900 [facility] Last Admin: 03/21/25 08:28 Dose: 324 mg Fluticasone Propionate (Fluticasone Propionate Nasal 16 Gm [place]) 1 spray NOSTRIL-B BID PRN PRN Reason: nasal congestion Haloperidol (Haloperidol 5 Mg Tablet) 5 mg PO TID PRN PRN Reason: agitation Last Admin: 03/20/25 09:17 Dose: 5 mg Levothyroxine Sodium (Levothyroxine Sodium 200 Mcg Tablet) 200 mcg PO DAILY@0600 [facility] Last Admin: 03/22/25 06:16 Dose: 200 mcg Loratadine (Loratadine 10 Mg Tablet) 10 mg PO DAILY [facility] Last Admin: 03/22/25 09:08 Dose: 10 mg Magnesium Hydroxide (Milk Of Magnesia 30 Ml Oral.Susp) 30 ml PO DAILY PRN PRN Reason: Constipation Melatonin (Melatonin 3 Mg Tablet) 9 mg PO BEDTIME [facility] Last Admin: 03/21/25 21:26 Dose: 9 mg Methenamine Hippurate (Methenamine Hippurate 1 Gm Tablet) 1 gm PO BID [facility] Last Admin: 03/22/25 09:07 Dose: 1 gm Multivitamins/Vitamin C (Multivitamin Tablet) 1 tab PO DAILY [facility] Last Admin: 03/22/25 09:07 Dose: 1 tab Nystatin (Nystatin Powder 15 Gm Bottle) 1 appl TOPICAL BID PRN; Protocol PRN Reason: Rash Quetiapine Fumarate (Quetiapine Fumarate 200 Mg Tablet) 200 mg PO BID [facility] Last Admin: 03/22/25 09:08 Dose: 200 mg Quetiapine Fumarate (Quetiapine Fumarate 100 Mg Tablet) 100 mg PO DAILY@1200 [facility] Last Admin: 03/22/25 11:31 Dose: 100 mg Senna (Sennosides 8.6 Mg Tablet) 8.6 mg PO Q48H [facility] Last Admin: 03/21/25 08:28 Dose: 8.6 mg Tamsulosin HCl (Tamsulosin Hcl 0.4 Mg Capsule) 0.4 mg PO DAILY [facility] Last Admin: 03/22/25 09:08 Dose: 0.4 mg Trazodone HCl (Trazodone Hcl 100 Mg Tablet) 100 mg PO BEDTIME DANA Last Admin: 03/21/25 21:27 Dose: 100 mg Trazodone HCl (Trazodone Hcl 50 Mg Tablet) 50 mg PO BEDTIME PRN PRN Reason: Insomnia Last Admin: 03/20/25 01:26 Dose: 50 mg Allergies Allergies Allergy/AdvReac Type Severity Reaction Status Date / Time adhesive tape Allergy Intermediate itching Verified 03/10/25 19:48 and skin redness latex Allergy Intermediate skin rash Verified 03/10/25 19:48 and itching Seasonal Allergies Allergy Itching Verified 03/10/25 19:48 weed pollen Allergy stuffy nose Verified 03/10/25 19:48 DUST Allergy Unknown ITCHY/WATERY Uncoded 03/10/25 19:48 EYES surgical paper tape Allergy Unknown rash Uncoded 03/10/25 19:48 Tide Allergy Unknown rash Uncoded 03/10/25 19:48 Assessment & Plan Assessment & Plan (1) Mood disorder: Status: Acute Code(s): F39 - Unspecified mood [affective] disorder (2) Developmental delay, moderate: Status: Acute Code(s): R62.50 - Unspecified lack of expected normal physiological development in childhood Plan Ms. Ronquillo is a 69 year old woman with hx of developmental delay, dementia. She was brought back after discharged from [facility] due to ongoing combative behaviors. She currently presents as alert, pleasant. No insight into what brought her to the hospital. PLAN 03/15 - pt was yelling and labile and was started on diazepam 2mg tid , but was sedated after 2 doses - one last pm and this am- will cut dose and dosing back- a quetiapine dose held today due to sedation 03/17 dose of valium has been decreased over the weekend due to sedation. currently on 1mg po BID. no aggression or explosive behaviors over the weekend. 03/18 continue tx. 03/19 continue tx 03/20 continue tx. 03/21 continue tx. 03/22: Continue current regimen and plans Reason for continued inpatient stay Substantial Risk for: inability to function Time Spent With Patient Time: Total time managing care of this patient today ____ minutes.
[2025-03-22 20:00] VITALS: BP 138/89; PULSE 80; RESP 16; TEMP 36.8; O2SAT 98
[2025-03-22] MEDS: Melatonin 3 MG TABLET 9 MG PO (20:29)
[2025-03-22] MEDS: traZODone HCL 100 MG TABLET PO (20:29)
[2025-03-22] MEDS: carBAMazepine 200 MG TABLET 400 MG PO (20:30)
[2025-03-22] MEDS: Donepezil HCl 5 MG TABLET PO (20:31)
[2025-03-23] MEDS: Levothyroxine Sodium 200 MCG TABLET PO (06:01)
[2025-03-23] MEDS: diazePAM 2 MG TABLET PO (06:32)
[2025-03-23 08:00] VITALS: BP 142/74; PULSE 72; RESP 16; TEMP 36.7; O2SAT 97
[2025-03-23] MEDS: diazePAM 2 MG TABLET 1 MG PO ×2 (08:35→21:15)
[2025-03-23] MEDS: Methenamine Hippurate 1 GM TABLET PO ×2 (08:36→21:14)
[2025-03-23] MEDS: carBAMazepine 200 MG TABLET PO (08:36)
[2025-03-23] MEDS: Multivitamin TABLET 1 TAB PO (08:37)
[2025-03-23] MEDS: QUEtiapine Fumarate 200 MG TABLET PO ×2 (08:37→21:14)
[2025-03-23] MEDS: Sennosides 8.6 MG TABLET PO (08:37)
[2025-03-23] MEDS: Aspirin Enteric Coated 81 MG TABLET.DR PO (08:37)
[2025-03-23] MEDS: Docusate Sodium 100 MG CAPSULE PO ×2 (08:37→21:15)
[2025-03-23] MEDS: Loratadine 10 MG TABLET PO (08:37)
[2025-03-23] MEDS: Ascorbic Acid 500 MG TABLET PO ×2 (08:37→21:14)
[2025-03-23] MEDS: Tamsulosin HCL 0.4 MG CAPSULE PO (08:38)
--- NOTE | 2025-03-23 11:11 | P.PNPSI_ITS ---
Subjective Subjective Date of Service: 03/23/25 Reason For Visit: combative behaviors Subjective Notes: Conditional Voluntary Interim History: Patient was seen and discussed in rounds today. Records and plans were reviewed. Has been mostly in bed and continues to be having some behavioral issues, smearing feces. She has a very severe wound on her left buttock. I ordered a Wound consult. Eating adequately. No other changes. Review of Systems Review of Systems Severe bed sore Yes all other systems are reviewed and are negative Mental Status Exam Mental Status Exam Narrative: In today's visit she is alert, pleasant and attempts at being engaged and interact. Speech is hard to understand. No acute signs observed. No dangerous behaviors. No suicidal ideations. Cognitively impaired. Judgment is impaired Diagnostics Vital Signs (24Hr): Vital Signs - 24 hr 03/22/25 20:00 03/23/25 08:00 Temperature 98.2 F 98.1 F Pulse Rate 80 72 Respiratory Rate 16 16 Blood Pressure 138/89 142/74 H Pulse Oximetry 98 97 Oxygen Delivery Method Room Air Room Air BMI result Body Mass Index 23.5 Labs 03/11/25 20:17 03/14/25 07:22 Medications Medications Current Medications Acetaminophen (Acetaminophen 325 Mg Tablet) 650 mg PO Q6H PRN PRN Reason: Headache/Pain, Scale 1-10 Last Admin: 03/19/25 10:38 Dose: 650 mg Al Hydroxide/Mg Hydroxide (Magnesium Hydrox/Alum Hydrox 30 Ml Oral.Susp) 30 ml PO Q6H PRN PRN Reason: Heartburn/Nausea Ascorbic Acid (Ascorbic Acid 500 Mg Tablet) 500 mg PO BID [facility] Last Admin: 03/23/25 08:37 Dose: 500 mg Aspirin (Aspirin Enteric Coated 81 Mg Tablet.) 81 mg PO DAILY [facility] Last Admin: 03/23/25 08:37 Dose: 81 mg Carbamazepine (Carbamazepine 200 Mg Tablet) 200 mg PO DAILY [facility] Last Admin: 03/23/25 08:36 Dose: 200 mg Carbamazepine (Carbamazepine 200 Mg Tablet) 400 mg PO BEDTIME [facility] Last Admin: 03/22/25 20:30 Dose: 400 mg Diazepam (Diazepam 2 Mg Tablet) 2 mg PO BID PRN PRN Reason: agitation Last Admin: 03/23/25 06:32 Dose: 2 mg Diazepam (Diazepam 2 Mg Tablet) 1 mg PO BID [facility] Last Admin: 03/23/25 08:35 Dose: 1 mg Docusate Sodium (Docusate Sodium 100 Mg Capsule) 100 mg PO BID [facility] Last Admin: 03/23/25 08:37 Dose: 100 mg Donepezil HCl (Donepezil Hcl 5 Mg Tablet) 5 mg PO BEDTIME [facility] Last Admin: 03/22/25 20:31 Dose: 5 mg Ferrous Sulfate (Ferrous Sulfate 324 Mg Tablet.Dr) 324 mg PO MOWEFR@0900 [facility] Last Admin: 03/21/25 08:28 Dose: 324 mg Fluticasone Propionate (Fluticasone Propionate Nasal 16 Gm [place]) 1 spray NOSTRIL-B BID PRN PRN Reason: nasal congestion Haloperidol (Haloperidol 5 Mg Tablet) 5 mg PO TID PRN PRN Reason: agitation Last Admin: 03/20/25 09:17 Dose: 5 mg Levothyroxine Sodium (Levothyroxine Sodium 200 Mcg Tablet) 200 mcg PO DAILY@0600 [facility] Last Admin: 03/23/25 06:01 Dose: 200 mcg Loratadine (Loratadine 10 Mg Tablet) 10 mg PO DAILY [facility] Last Admin: 03/23/25 08:37 Dose: 10 mg Magnesium Hydroxide (Milk Of Magnesia 30 Ml Oral.Susp) 30 ml PO DAILY PRN PRN Reason: Constipation Melatonin (Melatonin 3 Mg Tablet) 9 mg PO BEDTIME [facility] Last Admin: 03/22/25 20:29 Dose: 9 mg Methenamine Hippurate (Methenamine Hippurate 1 Gm Tablet) 1 gm PO BID [facility] Last Admin: 03/23/25 08:36 Dose: 1 gm Multivitamins/Vitamin C (Multivitamin Tablet) 1 tab PO DAILY [facility] Last Admin: 03/23/25 08:37 Dose: 1 tab Nystatin (Nystatin Powder 15 Gm Bottle) 1 appl TOPICAL BID PRN; Protocol PRN Reason: Rash Quetiapine Fumarate (Quetiapine Fumarate 200 Mg Tablet) 200 mg PO BID [facility] Last Admin: 03/23/25 08:37 Dose: 200 mg Quetiapine Fumarate (Quetiapine Fumarate 100 Mg Tablet) 100 mg PO DAILY@1200 [facility] Last Admin: 03/22/25 11:31 Dose: 100 mg Senna (Sennosides 8.6 Mg Tablet) 8.6 mg PO Q48H [facility] Last Admin: 03/23/25 08:37 Dose: 8.6 mg Tamsulosin HCl (Tamsulosin Hcl 0.4 Mg Capsule) 0.4 mg PO DAILY [facility] Last Admin: 03/23/25 08:38 Dose: 0.4 mg Trazodone HCl (Trazodone Hcl 100 Mg Tablet) 100 mg PO BEDTIME [facility] Last Admin: 03/22/25 20:29 Dose: 100 mg Trazodone HCl (Trazodone Hcl 50 Mg Tablet) 50 mg PO BEDTIME PRN PRN Reason: Insomnia Last Admin: 03/20/25 01:26 Dose: 50 mg Allergies Allergies Allergy/AdvReac Type Severity Reaction Status Date / Time adhesive tape Allergy Intermediate itching Verified 03/10/25 19:48 and skin redness latex Allergy Intermediate skin rash Verified 03/10/25 19:48 and itching Seasonal Allergies Allergy Itching Verified 03/10/25 19:48 weed pollen Allergy stuffy nose Verified 03/10/25 19:48 DUST Allergy Unknown ITCHY/WATERY Uncoded 03/10/25 19:48 EYES surgical paper tape Allergy Unknown rash Uncoded 03/10/25 19:48 Tide Allergy Unknown rash Uncoded 03/10/25 19:48 Assessment & Plan Assessment & Plan (1) Mood disorder: Status: Acute Code(s): F39 - Unspecified mood [affective] disorder (2) Developmental delay, moderate: Status: Acute Code(s): R62.50 - Unspecified lack of expected normal physiological development in childhood Plan Ms. Ronquillo is a 69 year old woman with hx of developmental delay, dementia. She was brought back after discharged from [facility] due to ongoing combative behaviors. She currently presents as alert, pleasant. No insight into what brought her to the hospital. PLAN 03/15 - pt was yelling and labile and was started on diazepam 2mg tid , but was sedated after 2 doses - one last pm and this am- will cut dose and dosing back- a quetiapine dose held today due to sedation 03/17 dose of valium has been decreased over the weekend due to sedation. currently on 1mg po BID. no aggression or explosive behaviors over the weekend. 03/18 continue tx. 03/19 continue tx 03/20 continue tx. 03/21 continue tx. 03/22: Continue current regimen and plans 03/23: Continue current regimen and plans. Wound consult placed Reason for continued inpatient stay Substantial Risk for: inability to function and med/psych decompensation Time Spent With Patient Time: Total time managing care of this patient today ____ minutes.
[2025-03-23] MEDS: QUEtiapine Fumarate 100 MG TABLET PO (12:43)
[2025-03-23 20:00] VITALS: BP 148/77; PULSE 66; RESP 16; TEMP 36.7; O2SAT 100
[2025-03-23] MEDS: traZODone HCL 100 MG TABLET PO (21:14)
[2025-03-23] MEDS: carBAMazepine 200 MG TABLET 400 MG PO (21:14)
[2025-03-23] MEDS: Melatonin 3 MG TABLET 9 MG PO (21:14)
[2025-03-23] MEDS: Donepezil HCl 5 MG TABLET PO (21:14)
[2025-03-24] MEDS: Levothyroxine Sodium 200 MCG TABLET PO (05:23)
[2025-03-24 09:17] VITALS: BP 131/60; PULSE 69; RESP 15; TEMP 36.8; O2SAT 100
[2025-03-24] MEDS: Docusate Sodium 100 MG CAPSULE PO ×2 (09:19→21:43)
[2025-03-24] MEDS: Methenamine Hippurate 1 GM TABLET PO ×2 (09:19→21:43)
[2025-03-24] MEDS: Multivitamin TABLET 1 TAB PO (09:19)
[2025-03-24] MEDS: carBAMazepine 200 MG TABLET PO (09:19)
[2025-03-24] MEDS: Aspirin Enteric Coated 81 MG TABLET.DR PO (09:19)
[2025-03-24] MEDS: diazePAM 2 MG TABLET 1 MG PO ×2 (09:19→21:44)
[2025-03-24] MEDS: Ascorbic Acid 500 MG TABLET PO ×2 (09:19→21:43)
[2025-03-24] MEDS: Loratadine 10 MG TABLET PO (09:19)
[2025-03-24] MEDS: QUEtiapine Fumarate 200 MG TABLET PO ×2 (09:19→21:43)
[2025-03-24] MEDS: Ferrous Sulfate 324 MG TABLET.DR PO (09:20)
[2025-03-24] MEDS: Tamsulosin HCL 0.4 MG CAPSULE PO (09:20)
--- NOTE | 2025-03-24 11:01 | P.PNPSI_ITS ---
Subjective Subjective Date of Service: 03/24/25 Reason For Visit: combative behaviors Subjective Notes: Section 7 Interim History: Pt slept through the night. She ambulates with walker. She is upset that she is not leaving today. She states she was told, unclear by whom as she is planned to discharged tomorrow. She was easily redirected after offering ice scream. She was better as day went by. She is taking medications as prescribed. No behavioral concerns. Review of Systems Review of Systems Severe bed sore Yes all other systems are reviewed and are negative and Unobtainable due to mental status Diagnostics Vital Signs (24Hr): Vital Signs - 24 hr 03/23/25 20:00 03/24/25 09:17 Temperature 98.1 F 98.2 F Pulse Rate 66 69 Respiratory Rate 16 15 Blood Pressure 148/77 H 131/60 Pulse Oximetry 100 100 Oxygen Delivery Method Room Air Room Air BMI result Body Mass Index 23.5 Labs 03/11/25 20:17 03/14/25 07:22 Medications Medications Current Medications Acetaminophen (Acetaminophen 325 Mg Tablet) 650 mg PO Q6H PRN PRN Reason: Headache/Pain, Scale 1-10 Last Admin: 03/19/25 10:38 Dose: 650 mg Al Hydroxide/Mg Hydroxide (Magnesium Hydrox/Alum Hydrox 30 Ml Oral.Susp) 30 ml PO Q6H PRN PRN Reason: Heartburn/Nausea Ascorbic Acid (Ascorbic Acid 500 Mg Tablet) 500 mg PO BID [facility] Last Admin: 03/24/25 09:19 Dose: 500 mg Aspirin (Aspirin Enteric Coated 81 Mg Tablet.) 81 mg PO DAILY [facility] Last Admin: 03/24/25 09:19 Dose: 81 mg Carbamazepine (Carbamazepine 200 Mg Tablet) 200 mg PO DAILY [facility] Last Admin: 03/24/25 09:19 Dose: 200 mg Carbamazepine (Carbamazepine 200 Mg Tablet) 400 mg PO BEDTIME [facility] Last Admin: 03/23/25 21:14 Dose: 400 mg Diazepam (Diazepam 2 Mg Tablet) 2 mg PO BID PRN PRN Reason: agitation Last Admin: 03/23/25 06:32 Dose: 2 mg Diazepam (Diazepam 2 Mg Tablet) 1 mg PO BID [facility] Last Admin: 03/24/25 09:19 Dose: 1 mg Docusate Sodium (Docusate Sodium 100 Mg Capsule) 100 mg PO BID [facility] Last Admin: 03/24/25 09:19 Dose: 100 mg Donepezil HCl (Donepezil Hcl 5 Mg Tablet) 5 mg PO BEDTIME [facility] Last Admin: 03/23/25 21:14 Dose: 5 mg Ferrous Sulfate (Ferrous Sulfate 324 Mg Tablet.Dr) 324 mg PO MOWEFR@0900 [facility] Last Admin: 03/24/25 09:20 Dose: 324 mg Fluticasone Propionate (Fluticasone Propionate Nasal 16 Gm [place]) 1 spray NOSTRIL-B BID PRN PRN Reason: nasal congestion Haloperidol (Haloperidol 5 Mg Tablet) 5 mg PO TID PRN PRN Reason: agitation Last Admin: 03/20/25 09:17 Dose: 5 mg Levothyroxine Sodium (Levothyroxine Sodium 200 Mcg Tablet) 200 mcg PO DAILY@0600 [facility] Last Admin: 03/24/25 05:23 Dose: 200 mcg Loratadine (Loratadine 10 Mg Tablet) 10 mg PO DAILY [facility] Last Admin: 03/24/25 09:19 Dose: 10 mg Magnesium Hydroxide (Milk Of Magnesia 30 Ml Oral.Susp) 30 ml PO DAILY PRN PRN Reason: Constipation Melatonin (Melatonin 3 Mg Tablet) 9 mg PO BEDTIME [facility] Last Admin: 03/23/25 21:14 Dose: 9 mg Methenamine Hippurate (Methenamine Hippurate 1 Gm Tablet) 1 gm PO BID [facility] Last Admin: 03/24/25 09:19 Dose: 1 gm Multivitamins/Vitamin C (Multivitamin Tablet) 1 tab PO DAILY [facility] Last Admin: 03/24/25 09:19 Dose: 1 tab Nystatin (Nystatin Powder 15 Gm Bottle) 1 appl TOPICAL BID PRN; Protocol PRN Reason: Rash Quetiapine Fumarate (Quetiapine Fumarate 200 Mg Tablet) 200 mg PO BID [facility] Last Admin: 03/24/25 09:19 Dose: 200 mg Quetiapine Fumarate (Quetiapine Fumarate 100 Mg Tablet) 100 mg PO DAILY@1200 [facility] Last Admin: 03/23/25 12:43 Dose: 100 mg Senna (Sennosides 8.6 Mg Tablet) 8.6 mg PO Q48H [facility] Last Admin: 03/23/25 08:37 Dose: 8.6 mg Tamsulosin HCl (Tamsulosin Hcl 0.4 Mg Capsule) 0.4 mg PO DAILY [facility] Last Admin: 03/24/25 09:20 Dose: 0.4 mg Trazodone HCl (Trazodone Hcl 100 Mg Tablet) 100 mg PO BEDTIME [facility] Last Admin: 03/23/25 21:14 Dose: 100 mg Trazodone HCl (Trazodone Hcl 50 Mg Tablet) 50 mg PO BEDTIME PRN PRN Reason: Insomnia Last Admin: 03/20/25 01:26 Dose: 50 mg Allergies Allergies Allergy/AdvReac Type Severity Reaction Status Date / Time adhesive tape Allergy Intermediate itching Verified 03/10/25 19:48 and skin redness latex Allergy Intermediate skin rash Verified 03/10/25 19:48 and itching Seasonal Allergies Allergy Itching Verified 03/10/25 19:48 weed pollen Allergy stuffy nose Verified 03/10/25 19:48 DUST Allergy Unknown ITCHY/WATERY Uncoded 03/10/25 19:48 EYES surgical paper tape Allergy Unknown rash Uncoded 03/10/25 19:48 Tide Allergy Unknown rash Uncoded 03/10/25 19:48 Assessment & Plan Assessment & Plan (1) Mood disorder: Status: Acute Code(s): F39 - Unspecified mood [affective] disorder (2) Developmental delay, moderate: Status: Acute Code(s): R62.50 - Unspecified lack of expected normal physiological development in childhood Plan Ms. Ronquillo is a 69 year old woman with hx of developmental delay, dementia. She was brought back after discharged from [facility] ED due to ongoing combative behaviors. She currently presents as alert, pleasant. No insight into what brought her to the hospital. PLAN 03/15 - pt was yelling and labile and was started on diazepam 2mg tid , but was sedated after 2 doses - one last pm and this am- will cut dose and dosing back- a quetiapine dose held today due to sedation 03/17 dose of valium has been decreased over the weekend due to sedation. currently on 1mg po BID. no aggression or explosive behaviors over the weekend. 03/18 continue tx. 03/19 continue tx 03/20 continue tx. 03/21 continue tx. 03/22: Continue current regimen and plans 03/23: Continue current regimen and plans. Wound consult placed 03/24 continue tx. Reason for continued inpatient stay Substantial Risk for: inability to function Time Spent With Patient Time: Total time managing care of this patient today ____ minutes.
--- NOTE | 2025-03-24 13:07 | MHC.CLN ---
F/U DIET=REGULAR. SKIN WITH STAGE II PI TO SACRUM. ENSURE TID TO PROMOTE WOUND HEALING. SUPPLEMENT PROVIDES 1050 KCALS, 60 G PROTEIN. PO VARIABLE WITH MOST MEALS 100%. FOLLOW FOR PO INTAKE AND SKIN INTEGRITY. RD TO MONITOR WEEKLY.
[2025-03-24] MEDS: QUEtiapine Fumarate 100 MG TABLET PO (15:08)
--- NOTE | 2025-03-24 16:13 | HO.WOUND ---
Wound Consult: Initial 69yr old?female admitted to [facility] on 03/10/25 on the behavioral health unit - See progress notes and H&P for detailed history.? Wound consult placed for sacrum.? Patient agreeable to assessment and photo documentation.? Patient previously seen in ED pending admission. The patient comes from a half-way with DTI present on admission. Todays assessment details below. ED admission 03/12/25 03/24/25 Sacrum Etiology: ?Unstageable Pressure Injury - Previously documented Deep Tissue Injury in [facility] -?Present on Admission Measurements: 6cm x 2.5cm x 0.2cm Wound Bed: adherent yellow thick slough with few scattered areas of red moist tissue Drainage / Odor: None noted Edges: ? irregular and epibole Juliet wound: Red pink intact tissue - resurfacing and improving previous DTI site - ? No Induration, Fluctuance or Warmth noted Pain: denies Goals of Treatment: ?Triad for enhanced autolytic debridement and cover dressing Of note while walking with the patient to her room for skin assessment she was incontinent of urine - large volume. While assessing her skin she was noted for stool - she denied knowing she had stool in the area. she attempted to evacuate her bowel and reported not having to go and when skin was assessed she was noted to have stool in between her buttock - she was not able to properly clean herself. Her level of incontinence likely impacted the pressure injury development and healing since the wound sits within the gluteal fold. She will benefit from assistance with her incontinence care to ensure the wound bed stays clean. At this time there is no s/s of infection to the site. Topical treatment options are twice a day Triad cream with no cover dressing and just her brief or Triad cream application and cover dressing daily. Recommendations: Turn and Reposition every 2 hours and as needed for patient comfort. ? Use pillows to support off loading positions. Limit Direct sitting time to 1-2 hour increments. Monitor for incontinence and moisture control, use barrier creams when needed for prevention and treatment. Provide adequate and supplemental nutrition.? Continue low air loss mattress. Sacrum - Off Load Pressure with Q2 hr turns and use of pillows - Limit direct sitting time to 1-2 hour increments - use waffle cushion to chair to aid in pressure redistribution. Cleanse with PH balance spray or wipes, pat dry. ?Apply thin layer of Triad to wound bed - only pat and dab no scrub and rub when soiling occurs. Reapply thin layer PRN after each episode of incontinence. Apply twice daily and PRN. May cover with dressing such a ABD pad and change daily and PRN. Re-consult wound care Nurse for wound deterioration or wound changes.
[2025-03-24 20:00] VITALS: BP 143/65; PULSE 71; RESP 18; TEMP 36.6; O2SAT 97
[2025-03-24] MEDS: Donepezil HCl 5 MG TABLET PO (21:43)
[2025-03-24] MEDS: traZODone HCL 100 MG TABLET PO (21:43)
[2025-03-24] MEDS: carBAMazepine 200 MG TABLET 400 MG PO (21:43)
[2025-03-24] MEDS: Melatonin 3 MG TABLET 9 MG PO (21:44)
[2025-03-25] MEDS: Levothyroxine Sodium 200 MCG TABLET PO (06:18)
[2025-03-25] MEDS: Ascorbic Acid 500 MG TABLET PO (09:03)
[2025-03-25] MEDS: carBAMazepine 200 MG TABLET PO (09:03)
[2025-03-25] MEDS: diazePAM 2 MG TABLET 1 MG PO (09:03)
[2025-03-25] MEDS: Loratadine 10 MG TABLET PO (09:04)
[2025-03-25] MEDS: Sennosides 8.6 MG TABLET PO (09:04)
[2025-03-25] MEDS: Tamsulosin HCL 0.4 MG CAPSULE PO (09:04)
[2025-03-25] MEDS: QUEtiapine Fumarate 200 MG TABLET PO (09:04)
[2025-03-25] MEDS: Multivitamin TABLET 1 TAB PO (09:05)
[2025-03-25] MEDS: Docusate Sodium 100 MG CAPSULE PO (09:05)
[2025-03-25] MEDS: Methenamine Hippurate 1 GM TABLET PO (09:05)
[2025-03-25] MEDS: Aspirin Enteric Coated 81 MG TABLET.DR PO (09:06)
--- NOTE | 2025-03-25 09:33 | PM.PSYDC ---
DS: Providers Provider Date of Service: 03/25/25 Date of admission: 03/13/25 14:19 Date of discharge: 03/25/25 Primary care physician: Unknown Physician Consults: 03/23/25 11:14 Consult to Wound Care Routine Reason for consultation: Left buttock bedsore/severe Has provider been notified: No DS: Diagnosis Discharge Diagnosis (1) Mood disorder: Status: Acute (2) Developmental delay, moderate: Status: Acute DS: Medications Discharge Medications Home Medications: Home Medications ?Medication ?Instructions ?Recorded ?Confirmed nystatin 100,000 unit/gram topical 1 appl topical BID PRN Rash 01/05/21 03/12/25 powder triamcinolone acetonide 0.1 % 1 appl topical BID PRN Skin 01/24/23 03/12/25 topical ointment Irritation ascorbic acid (vitamin C) 500 mg 500 mg PO BID 03/13/24 03/12/25 tablet (Vitamin C) betamethasone dipropionate 0.05 % 1 appl topical BID PRN Dry areas 03/13/24 03/12/25 topical ointment on hand zinc oxide-vitamin B5-vit E 11.3% 1 appl topical BID Rash 03/13/24 03/12/25 topical cream (Balmex Adult Care) vibegron 75 mg tablet (Gemtesa) 75 mg PO DAILY 01/31/25 03/12/25 dextromethorphan-guaifenesin 10 10 ml PO QID PRN Cough 03/12/25 03/12/25 mg-100 mg/5 mL oral liquid (Guaifenesin-DM) Previous Rx's ?Medication ?Instructions ?Recorded multivitamin 1 tab PO DAILY #90 tabs 12/19/24 compress.stocking,knee,reg,med #12 ea 03/21/25 acetaminophen 325 mg tablet 650 mg (2 x 325 mg) PO Q6H PRN 03/25/25 Headache/Pain, Scale 1-10 #60 tabs aspirin 81 mg tablet,delayed 81 mg PO DAILY #30 tabs 03/25/25 release carbamazepine 200 mg tablet 200 mg PO DAILY #30 tabs 03/25/25 carbamazepine 200 mg tablet 400 mg (2 x 200 mg) PO BEDTIME #60 03/25/25 tabs diazepam 2 mg tablet 1 mg (1/2 x 2 mg) PO BID #30 tabs 03/25/25 diazepam 2 mg tablet 2 mg PO BID PRN agitation #60 tabs 03/25/25 docusate sodium 100 mg capsule 100 mg PO BID #60 caps 03/25/25 donepezil 5 mg tablet 5 mg PO BEDTIME #30 tabs 03/25/25 ferrous sulfate 324 mg (65 mg 324 mg PO MOWEFR@0900 #60 tabs 03/25/25 iron) tablet,delayed release fluticasone propionate 50 1 spray intranasal BID PRN nasal 03/25/25 mcg/actuation nasal congestion #16 grams spray,suspension levothyroxine 200 mcg tablet 200 mcg PO DAILY@0600 #30 tabs 03/25/25 (Synthroid) loratadine 10 mg tablet 10 mg PO DAILY #30 tabs 03/25/25 melatonin 3 mg tablet 9 mg (3 x 3 mg) PO BEDTIME #90 tabs 03/25/25 methenamine hippurate 1 gram tablet 1 g PO BID #30 tabs 03/25/25 quetiapine 100 mg tablet 100 mg PO DAILY@1200 #30 tabs 03/25/25 quetiapine 200 mg tablet 200 mg PO BID #60 tabs 03/25/25 sennosides 8.6 mg tablet 8.6 mg PO Q48H constipation #45 03/25/25 tabs tamsulosin 0.4 mg capsule 0.4 mg PO DAILY #30 caps 03/25/25 trazodone 100 mg tablet 100 mg PO BEDTIME #30 tabs 03/25/25 Mental Status Exam Mental Status Exam Narrative: Appearance: wearing casual clothing, goos hygiene, in NAD Behavior: calm Psychomotor: no agitation or retardation noted Speech: mumbles, difficult to understand at times, spontaneous TP: goal oriented- wanting to go home TC: wanting to color Mood: good Affect: congruent SI: denies HI: denies VH/AH: no signs Delusions: no overt delusions Insight/judgment: impaired x2 alert, oriented to hospital, not so much to situation Data Data Completed and Pending Completed studies during hospitalization [Text1]: 03/11/25 Unknown Urine clean catch - Clean Catch Midstream Urine Culture - Final DS: Summary Hospital Course Hospital Course: Subjective Notes: Hicks Warning and Section 12B Narrative: Ms. Ronquillo is a 69 year-old woman with hx of developmental delay, vascular dementia who was brought to [facility] due to increase combative behaviors at . Pertinent labs in the ED include CBC with chronic normocytic anemia, CMP without electrolyte imbalances, increase BUN 21, Cr 0.89, Creatinine clearance 52.9. Utox was negative. UA with protein, nitrites, leukocityes- she does have hx of chronic UTI on hiprex and vit c. Pt on the unit presents as loud but cooperative. She is asking for paper to color and compliments this global technical writer's shirt. She asks if she can color pictures for other staff. She knows she is in the hospital. However, she does not know why she is here. She does not appear internally preoccupied. She does not present with delusional content. Per staff pt has had some difficulty sleeping. At baseline, pt has low frustration tolerance, tends to be loud and can also be demanding at times. Past Psychiatric History: Inpt: S1: 09/2024 OP: Tammy Randall, JAMES past medication trials: abilify, carbamazepine, cogentin, seroquel, olanzapine Medical Evaluation Reviewed: Yes HOSPITAL COURSE On the unit, pt was admitted on a sect 12b. She presented with intermittent explosive behaviors, however, she did not show signs of aggression towards others or herself nor engage in property damage. Discussed with her OP provider Tammy Randall medication changes to target low frustration tolerance and tendency to then have behavioral outburst if demands not met at the moment she asks for them. Given limited insight into effects of behaviors, simple clear instruction with limit setting helps manage these behaviors along with the medication. She was continued on seroquel 200mg po BID and additional dose of 100mg po at noon. She was started on diazepam for impulse and anxiety control. She was initially trialed on diazepam 2mg po TID but this was decreased to 1mg PO BID due to sedation. Additional diazepam 2mg po BID prn for agitation was used as needed. She slept through the night with trazodone 100mg po qhs. She was visible on the unit. She enjoyed coloring and participating in some groups. She was social with peers and usually pleasant on approach. There were no need for chemical nor physical restraints. She took medications as prescribed. She does have pressure ulcer on bottocks (see recommendation for care below). We had meeting with snf staff- discussed medication changes and behavioral interventions to manage intermittent explosive behaviors. Wound care recommendation: Topical Wound Care Recommendations: Turn and Reposition every 2 hours and as needed for patient comfort. ? Use pillows to support off loading positions. Limit Direct sitting time to 1-2 hour increments. Monitor for incontinence and moisture control, use barrier creams when needed for prevention and treatment. Provide adequate and supplemental nutrition.? Sacrum - Off Load Pressure with Q2 hr turns and use of pillows - Limit direct sitting time to 1-2 hour increments - use waffle cushion to chair to aid in pressure redistribution. Cleanse with PH balance spray or wipes, pat dry. ?Apply thin layer of Triad to wound bed - only pat and dab no scrub and rub when soiling occurs. Reapply thin layer PRN after each episode of incontinence. Apply twice daily and PRN. May cover with dressing such a ABD pad and change daily and PRN. Status at Discharge Cognitive/behavioral status at discharge: Pt with brighter, non labile affect. No SI/HI. No psychosis nor delusions. Sleeping and eating well. No aggression towards self or others. Functional status at discharge: uses cane/walker Overall status at discharge: patient is back to baseline Time Spent with Patient Time attestation: Total time managing care of this patient today ____ minutes. Discharge Plan Discharge Anticipated Discharge Date/Time: 03/25/25 09:10 Patient Disposition: Home, Self-Care Discharge Diagnosis: Intermittent Explosive Disorder Developmental Delay Vascular Dementia Referrals: Nora Miles (Therapist) [Other] - 1 Week Referral Note: You will be seeing oNra [facility] on 08-12-11 at 11:00. If you need to rschudle rp [facility] [Other] - 03/31/25 12:30 pm Referral Note: You will be seen by the wound care clinic on Saturday 03/31 at 12:30pm. If you need to can or reschedule the appointment please call the number listed. Tammy Randall CNS [Certified Nurse Specialist, Psychology] - 1 Week Dori Cottrell PA [Physician Ornamental [employer] Erector, Hospitalist] - 04/11/25 10:00 am Referral Note: You will be seeing Dori Cottrell for you discharge appointment. If you need to reschedule or cancel the appointment please call the number listed. Discharge Medications: New acetaminophen 325 mg Tablet 650 mg PO Q6H PRN (Reason: Headache/Pain, Scale 1-10) Qty: 60 0RF donepezil 5 mg Tablet 5 mg PO BEDTIME Qty: 30 0RF aspirin 81 mg Tablet,Delayed Release (Dr/Ec) 81 mg PO DAILY Qty: 30 0RF carbamazepine 200 mg Tablet 400 mg PO BEDTIME Qty: 60 0RF methenamine hippurate 1 gram Tablet 1 g PO BID Qty: 30 0RF tamsulosin 0.4 mg Capsule 0.4 mg PO DAILY Qty: 30 0RF loratadine 10 mg Tablet 10 mg PO DAILY Qty: 30 0RF ferrous sulfate 324 mg (65 mg iron) Tablet,Delayed Release (Dr/Ec) 324 mg PO MOWEFR@0900 Qty: 60 0RF carbamazepine 200 mg Tablet 200 mg PO DAILY Qty: 30 0RF diazepam 2 mg Tablet 1 mg PO BID Qty: 30 0RF diazepam 2 mg Tablet 2 mg PO BID PRN (Reason: agitation) Qty: 60 0RF quetiapine 200 mg Tablet 200 mg PO BID Qty: 60 0RF quetiapine 100 mg Tablet 100 mg PO DAILY@1200 Qty: 30 0RF trazodone 100 mg Tablet 100 mg PO BEDTIME Qty: 30 0RF melatonin 3 mg Tablet 9 mg PO BEDTIME Qty: 90 0RF docusate sodium 100 mg Capsule 100 mg PO BID Qty: 60 0RF levothyroxine [Synthroid] 200 mcg Tablet 200 mcg PO DAILY@0600 Qty: 30 0RF fluticasone propionate 50 mcg/actuation [place],Suspension 1 spray intranasal BID PRN (Reason: nasal congestion) Qty: 16 0RF Continued (DME) compress.stocking,knee,reg,med Misc See Rx Instructions .Route Qty: 12 0RF Rx Instructions: Wear compression stockings daily. May remove at night nystatin 100,000 unit/gram Powder 1 appl TOPICAL BID PRN (Reason: Rash) Rx Instructions: rash in skin folds triamcinolone acetonide 0.1 % ointment 1 appl topical BID PRN (Reason: Skin Irritation) Rx Instructions: apply to the lower abdomen, groin, and Buttocks ( Once started apply 2 weeks on and 1 week off) betamethasone dipropionate 0.05 % ointment 1 appl topical BID PRN (Reason: Dry areas on hand) Rx Instructions: Once started, Apply 2 weeks on and 1 week off. ascorbic acid (vitamin C) [Vitamin C] 500 mg tablet 500 mg PO BID Balmex Adult Care 11.3 % Cream 1 appl TOPICAL BID Rx Instructions: apply to rash, groin, and buttocks dextromethorphan-guaifenesin [Guaifenesin-DM] 10-100 mg/5 mL Liquid 10 ml PO QID PRN (Reason: Cough) sennosides 8.6 mg tablet 8.6 mg PO Q48H Qty: 45 3RF Rx Instructions: hold for diarrhea. call md if hold for 2 consecutive doses multivitamin Tablet 1 tab PO DAILY Qty: 90 3RF Gemtesa 75 mg tablet 75 mg PO DAILY Discontinued Icy Hot Pain Relieving 2.5 % gel 1 appl topical BID Qty: 70.8 3RF Rx Instructions: Small amount topically twice daily to back and shoulder methenamine hippurate 1 gram tablet 1 g PO BID Qty: 180 3RF donepezil 5 mg Tablet 5 mg PO BEDTIME Qty: 30 0RF carbamazepine 200 mg Tablet 400 mg PO BEDTIME Qty: 60 0RF trazodone 100 mg tablet 100 mg PO BEDTIME Qty: 30 0RF quetiapine 100 mg tablet 100 mg PO DAILY@1200 Rx Instructions: Administer at noon daily levothyroxine 200 mcg tablet 200 mcg PO DAILY@0600 melatonin 10 mg Tablet 10 mg PO BEDTIME quetiapine 50 mg tablet 50 mg PO BID PRN (Reason: Agitation) carbamazepine 200 mg tablet 200 mg PO DAILY quetiapine [Seroquel] 200 mg Tablet 200 mg PO BID acetaminophen 500 mg tablet 500 mg PO Q4H PRN (Reason: fever or pain) Rx Instructions: call pcp if fever > 48 hours tamsulosin 0.4 mg capsule 0.4 mg PO DAILY Rx Instructions: in am ferrous sulfate [FeroSul] 325 mg (65 mg iron) tablet 325 mg PO MOWEFR@0900 loratadine 10 mg tablet 10 mg PO DAILY Qty: 90 3RF aspirin 81 mg tablet,delayed release (DR/EC) 81 mg PO DAILY Qty: 90 3RF docusate sodium 100 mg capsule 100 mg PO BID Qty: 180 3RF Rx Instructions: hold for diarrhea. if held for 4 consecutive doses contact PCP ibuprofen 400 mg tablet 400 mg PO Q6H PRN (Reason: Pain) Qty: 100 3RF Rx Instructions: if symptoms not resolved in 48 hours contact pcp fluticasone propionate [Allergy Relief (fluticasone)] 50 mcg/actuation spray,suspension 1 spray intranasal BID PRN (Reason: nasal congestion) Qty: 16 0RF Rx Instructions: administer into each nostril Discharge Orders: Discharge Order (Routine); Ordered 03/25/25 Ordered By: Izabella Presley Diet: Regular diet Activity on Discharge: Use cane or walker Stand Alone Forms: Patient Portal Discharge page Print Language: South African Activity Restrictions/Additional Instructions: Topical Wound Care Recommendations: Turn and Reposition every 2 hours and as needed for patient comfort. ? Use pillows to support off loading positions. Limit Direct sitting time to 1-2 hour increments. Monitor for incontinence and moisture control, use barrier creams when needed for prevention and treatment. Provide adequate and supplemental nutrition.? Sacrum - Off Load Pressure with Q2 hr turns and use of pillows - Limit direct sitting time to 1-2 hour increments - use waffle cushion to chair to aid in pressure redistribution. Cleanse with PH balance spray or wipes, pat dry. ?Apply thin layer of Triad to wound bed - only pat and dab no scrub and rub when soiling occurs. Reapply thin layer PRN after each episode of incontinence. Apply twice daily and PRN. May cover with dressing such a ABD pad and change daily and PRN. Care Plan Goals: 1. maintain mood 2. no aggression towards self or others 3. no destruction of property Health Concerns: Follow up with PCP Plan of Treatment: 1. Take medications as prescribed 2. Go to nearest ED or call 911 in event of emergency Assessment: Pt with bright affect. No psychosis or delusions. No aggression towards self or others. Sleeping and eating well.
== END 2025-03-25 11:13 | disposition home or self-care (01) | DRG 883 ==
LOC: HO.ED 03-13 07:57 → HO.PGERI 03-13 14:20
PROVIDERS: Physician Assistant Medical; Admitting Provider Social Worker; Emergency Provider Internal Medicine; Visit Provider Social Worker
DX: F63.81 Intermittent explosive disorder (principal); F01.50 Vascular dementia, unspecified severity, without behavioral disturbance, psychotic disturbance, mood disturbance, and anxiety; E89.0 Postprocedural hypothyroidism; R62.50 Unspecified lack of expected normal physiological development in childhood; Z87.440 Personal history of urinary (tract) infections; Z79.82 Long term (current) use of aspirin; Z79.890 Hormone replacement therapy; Z79.899 Other long term (current) drug therapy
CPT/HCPCS: 36415; 80048; 80053; 80061; 80156; 80307; 81001; 82607; 82746; 83036; 84439; 84443; 85025; 87086; 93005; 99285; J1200; J1630; J2250; S9485

== ENCOUNTER → 2025-03-10 20:08 | Outpatient (BNV) | payer MEDICARE, MEDICAID, SELFPAY | PROVIDERS: Emergency Provider Internal Medicine; Visit Provider Social Worker | DX: F39 Unspecified mood [affective] disorder (principal); R62.50 Unspecified lack of expected normal physiological development in childhood | CPT/HCPCS: 99232; 99285 ==

== ENCOUNTER → 2025-03-11 19:57 | Outpatient (BNV) | payer MEDICARE, MEDICAID, SELFPAY | PROVIDERS: Emergency Provider Internal Medicine; Visit Provider Internal Medicine Cardiovascular Disease | DX: I45.2 Bifascicular block (principal) | CPT/HCPCS: 93010 ==

== ENCOUNTER 2025-04-03 17:16 | Emergency (ER) | payer MEDICARE, MEDICAID, SELFPAY ==
[2025-04-03 17:22] VITALS: BP 154/84; PULSE 89; O2SAT 97; BMI 24.8
--- NOTE | 2025-04-03 17:28 | PC.NURSE ---
Upon arrival to room, pt is screaming Get the hell out of here, I'm leaving. Don't touch me. I'm not fucking changing into that gown, this isn't my hospital. Pt refusing vitals and evaluation from RN at this time. Awaiting MD arrival.
--- OUTSIDE RECORDS SUMMARY | 2025-04-03 17:40 | XMS_ITS | Encounter Summary ---
Author Organization [facility] Address [address] [place] [address] Care Team Providers Care Drosser Name Role Phone Sher Patrick Primary Care Provider [phone] Reason for Visit * Reason Onset Date Comments Needs to reschedule 09/28/2020 Encounter Details Date Type Department Care Team (Late st Contact Info) Description 09/28/2020 Telephone [facility] Central Scheduling Department [address] [place] [address] Telephone Intake, Staff Needs to reschedule Social [...] Care Team (Latest Contact Info) Description 05/09/2025 7:15 AM EDT Hospital Encounter [facility] Operating Room [address] [place] [address] Catracho Vidal MD MPH [address] [place] [address] 05/12/2025 7:15 AM EDT - 05/12/2025 8:20 AM EDT Surgery [facility] Operating Room [address] [place] [address] Catracho Vidal MD MPH [address] [place] [address] Colonoscopy Screening, High Risk with Possible Moderate Sedation [74290 (CPT )] Scheduled Procedures Name Priority Associated Diagnoses Date/Ti me COLONOSCOPY SCREENING, HIGH RISK WITH POSSIBLE MODERATE SEDATION Colorectal cancer (HCC) 05/12/2025 7:15 AM EDT documented as of this encounter Visit Diagnoses Not on filedocumented in this encounter Additional Health Concerns Infection Onset Date Last Indicated Resolved Time Multidrug resistant organism s ESBL Comment:ESBL E.coli 08/03/2020 08/03/2020 COVID-19 - Suspected infection 07/03/2021 07/03/2021 07/03/2021 7:00 PM EDT documented as of this encounter Care Teams Drosser Relationship Specialty Start Date End Date Sher Patrick [address] [place] [address] [place] [address] PCP - General 04/20/17 documented as of this encounter
--- OUTSIDE RECORDS SUMMARY | 2025-04-03 17:40 | XMS_ITS | Patient Health Record ---
Author Organization [facility] Address [address] [place] [address] Care Team Providers Care Mother Baby Rn Name Role Phone Sher Patrick MD Primary Care Provider Harvinder Dahl Unavailable [phone] Reason For Referral No Information Medications Medication SIG (Take, Route, Frequency, Duration) Notes Start Date End Date Status Multivitamin Adults Active VESIcare 5 MG TAKE 1 TABLET BY ALVERTO TH EVERY DAY Oral for 30 Active Theophylline 300 as directed Orally a s directed Active Ibuprofen 400 MG TAKE 1 TABLET BY ALVERTO TH 3 TIMES A DAY WITH FOOD NEEDED FOR BACK PAIN Oral for 20 Active Abilify 15 MG 1 tablet Orally Once a day Active Theophylline ER 300 MG TAKE 1 TABLET BY MOUTH EVERY DAY Oral for 90 Active albuterol 2.5 mg - - as directed for asthma Active Aspirin 81 MG TAKE 1 TABLET BY ALVERTO TH EVERY DAY Oral for 30 Active MiraLax Not-Taking Benztropine Mesylate 0.5 MG TAKE 1 TABLET BY MOUTH EVERY DAY AT NIGHT Oral for 90 Active Pain Relief Extra Strength 500 MG TAKE 1 TABLET BY MOUTH EVERY 4 HOURS NEEDED FOR PAIN Oral for 9 Active Imipramine HCl 25 MG TAKE 1 TAB IN THE MORNING AND 3 TABS AT NIGHT Oral for 90 Active Loratadine 10 MG TAKE 1 TABLET BY ALVERTO TH EVERY DAY Oral for 30 Active Vitamin C 500 MG TAKE 1 TABLET BY ALVERTO TH EVERY DAY Oral for 30 Active Nystatin 561156 UNIT/GM APPLY DIRECTE D TO SKIN TWICE A DAY External for 30 Active Colace 100 MG 1 capsule as needed Orally at hs Active ARIPiprazole 15 MG TAKE 1 TABLET BY ALVERTO TH EVERY DAY IN THE MORNING Oral for 90 Active Cogentin 0.5 at hs Active carBAMazepine 200 MG TAKE 1 TABLET IN TH E AM & 2 TABLETS AT NIGHT Oral for 90 Active Immunizations Vaccine Route Administration Date Status Comme nts Influenza Unknown 06/02/2018 Administered Problems Problem Type SNOMED Code ICD Code Onset Dates Problem Status W/U Status Risk Notes Problem 843273977 Encounter for screening for malignant neoplasm of colon (Z12.11) Active confirmed Problem 931889500 History of adenomatous polyp of colon (Z86.010) Active confirmed Problem 501416334 History of colon cancer (Z85.038) Active confirmed Problem 79301967 Rectal bleed (K62.5) Active confirmed Problem 366239802 History of rectal cancer (Z85.048) Active confirmed Plan Of Treatment Future Test Test Name Order Date FLEXIBLE SIGMOIDOSCOPY, DIAGNOSTIC 06/23 COLONOSCOPY 04/23/2019 Insurance Providers Payer Name Payer Address Payer Phone Subscriber Number Group Number Insured Name Patient Relationship to Insured Coverage Start Date Coverage End Date MEDICARE OF [place] [address] [place] [address] [id number] STEPHAN YUDELKA Self - patient is the insured MEDICAID OF [facility] [address] [place] [address] [id number] STEPHANVIKYHA Self - patient is the insured Medical (General) History Medical History History ICD Code colon and rectal cancer-in 2000 she was found to have 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 Reyes, and subsequently with chemotherapy and radiation therapy by Dr. Luis. colon polyps asthma depression anxiety component of mental retardation she denies any history of MS, diabetes, stroke, nor kidney disease urinary incontinence Recurrence of adenomatous ti ssue at the rectal anastomosis in 2011--resected partially by Dr. Bashir, and then sent to [facility] in [place] for a second opiinion. The remainder was removed endoscopically at [facility] in 2011 and shown to be a tubulovillous adenoma. A colonoscopy in 07/2013 at [facility] is described as negative. Surgical History Surgery Date(Month/Year) colon and rectal cancer as above ear surgery tubal ligation hernia repair knee replacement bilateral
--- OUTSIDE RECORDS SUMMARY | 2025-04-03 17:41 | XMS_ITS | Clinical Summary ---
Author Organization [facility] Address [address] [place] [address] Phone Care Team Providers Care Supervisor Mapping Name Role Phone Sher Patrick MD Primary Care Provider [phone] Allergies Active Allergy Reactions Criticality Noted Date [...] Cancer Screening: Sigmoidoscopy 2003 Influenza Vaccine (#1) 2025 07/05/2021 Hepatitis B Vaccine Aged Out No longe r eligible based on patient's age to complete this topic Insurance Medicare Medicaid [place] Care Teams Supervisor Mapping Relationship Specialty Start Date End Date Sher Patrick MD [address] [place] [address] [address] [place] PCP - General Internal Medicine 09/17/24
[2025-04-03 19:57] VITALS: BP 126/59; PULSE 96; O2SAT 97
--- NOTE | 2025-04-03 20:37 | ED.GENADULT ---
HPI - General Adult General Chief complaint: Wound/Laceration Stated complaint: combative, agitated, ? bleeding from wound Time Seen by Provider: 04/03/25 19:53 Source: EMS Mode of arrival: EMS Limitations: other (Developmental Delay) History of Present Illness ED Provider: Damian CAIN HPI narrative: The patient is a 69-year-old female with history of developmental delay, mood disorder, vascular dementia, and a recently diagnosed sacral ulcer presenting to the ED from wound care clinic for evaluation of increased bleeding from her sacral wound. The patient denies any acute somatic complaint however her ability to provide a reliable HPI is questionable. Related Data Home Medications ?Medication ?Instructions ?Recorded ?Confirmed nystatin 100,000 unit/gram topical 1 appl topical BID PRN Rash 01/05/21 03/12/25 powder triamcinolone acetonide 0.1 % 1 appl topical BID PRN Skin 01/24/23 03/12/25 topical ointment Irritation ascorbic acid (vitamin C) 500 mg 500 mg PO BID 03/13/24 03/12/25 tablet (Vitamin C) betamethasone dipropionate 0.05 % 1 appl topical BID PRN Dry areas 03/13/24 03/12/25 topical ointment on hand zinc oxide-vitamin B5-vit E 11.3% 1 appl topical BID Rash 03/13/24 03/12/25 topical cream (Balmex Adult Care) vibegron 75 mg tablet (Gemtesa) 75 mg PO DAILY 01/31/25 03/12/25 dextromethorphan-guaifenesin 10 10 ml PO QID PRN Cough 03/12/25 03/12/25 mg-100 mg/5 mL oral liquid (Guaifenesin-DM) Previous Rx's ?Medication ?Instructions ?Recorded multivitamin 1 tab PO DAILY #90 tabs 12/19/24 compress.stocking,knee,reg,med #12 ea 03/21/25 acetaminophen 325 mg tablet 650 mg (2 x 325 mg) PO Q6H PRN 03/25/25 Headache/Pain, Scale 1-10 #60 tabs aspirin 81 mg tablet,delayed 81 mg PO DAILY #30 tabs 03/25/25 release carbamazepine 200 mg tablet 200 mg PO DAILY #30 tabs 03/25/25 carbamazepine 200 mg tablet 400 mg (2 x 200 mg) PO BEDTIME #60 03/25/25 tabs diazepam 2 mg tablet 1 mg (1/2 x 2 mg) PO BID #30 tabs 03/25/25 diazepam 2 mg tablet 2 mg PO BID PRN agitation #60 tabs 03/25/25 docusate sodium 100 mg capsule 100 mg PO BID #60 caps 03/25/25 donepezil 5 mg tablet 5 mg PO BEDTIME #30 tabs 03/25/25 ferrous sulfate 324 mg (65 mg 324 mg PO MOWEFR@0900 #60 tabs 03/25/25 iron) tablet,delayed release fluticasone propionate 50 1 spray intranasal BID PRN nasal 03/25/25 mcg/actuation nasal congestion #16 grams spray,suspension levothyroxine 200 mcg tablet 200 mcg PO DAILY@0600 #30 tabs 03/25/25 (Synthroid) loratadine 10 mg tablet 10 mg PO DAILY #30 tabs 03/25/25 melatonin 3 mg tablet 9 mg (3 x 3 mg) PO BEDTIME #90 tabs 03/25/25 methenamine hippurate 1 gram tablet 1 g PO BID #30 tabs 03/25/25 quetiapine 100 mg tablet 100 mg PO DAILY@1200 #30 tabs 03/25/25 quetiapine 200 mg tablet 200 mg PO BID #60 tabs 03/25/25 sennosides 8.6 mg tablet 8.6 mg PO Q48H constipation #45 03/25/25 tabs tamsulosin 0.4 mg capsule 0.4 mg PO DAILY #30 caps 03/25/25 trazodone 100 mg tablet 100 mg PO BEDTIME #30 tabs 03/25/25 Allergies Allergy/AdvReac Type Severity Reaction Status Date / Time adhesive tape Allergy Intermediate itching Verified 04/03/25 17:28 and skin redness latex Allergy Intermediate skin rash Verified 04/03/25 17:28 and itching Seasonal Allergies Allergy Itching Verified 04/03/25 17:28 weed pollen Allergy stuffy nose Verified 04/03/25 17:28 DUST Allergy Unknown ITCHY/WATERY Uncoded 04/03/25 17:28 EYES surgical paper tape Allergy Unknown rash Uncoded 04/03/25 17:28 Tide Allergy Unknown rash Uncoded 04/03/25 17:28 Review of Systems Review of Systems: Yes all other systems are reviewed and are negative PMFSH Past Medical History Medical History Developmental delay, moderate Abnormal MRI Post-surgical hypothyroidism History of ESBL E. coli infection Toxic multinodular goiter Vitamin D deficiency Hyperthyroidism Colon cancer Lung mass Developmental delay, mild Arthritis Surgical History History of carpal tunnel surgery of right wrist Hx of total thyroidectomy History of biopsy Hx of colonic polyps Hx of colonoscopy Family History Family History Father No problems noted. 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 Members: Other Household Members Other:: senior care with 2 other women and 2 men Housing: Other Housing Other:: senior care Do you presently have visiting nurse or other home services: Yes (senior care staff) Unable to assess alcohol history related to: Refusing to respond Alcohol intake: never Comment: 0+ Patient Tobacco Use Status: Never used Tobacco e-Cigarette/Vaping Use: Never Used Second Hand Smoke Exposure: No Use of substances other than those prescribed or required for medical reasons: Refusing to respond Advance Directives: Yes Advance Directives on File: Yes Advance Directives Date on File: 01/05/21 Do you have a plan to hurt others: No Plan service: No Current occupational status: disabled Current occupation: right handed Sexual orientation: Straight/Heterosexual Cognitive needs: Yes (walker) Hearing needs: No Vision needs: Yes (rx glasses) Physical Exam ED Vital Signs: Vital Signs - 24 hr 04/03/25 19:57 04/03/25 23:15 04/03/25 23:50 Temperature 99.1 F 99.1 F Pulse Rate 96 98 98 Respiratory Rate 18 Blood Pressure 126/59 L 132/57 L 132/57 L Pulse Oximetry 97 98 98 Oxygen Delivery Method Room Air Room Air Room Air BMI result Body Mass Index 24.8 CONSTITUTIONAL: The patient appears non-toxic, well nourished and in no acute distress. Vital signs as documented. HEAD: Atraumatic, normocephalic. EYES: EOMs grossly intact, pupils equal, conjunctiva clear, no exudate. ENT: Nares patent, no discharge. Airway patent, no audible stridor, visible mucosa is pink and moist without noted lesions. NECK: Trachea is midline, no obvious masses or gross abnormalities. CHEST: Symmetric movement, normal appearance. LUNGS: LS present and CTAB, no w/r/r. Non-labored work of breathing. CARDIAC: Regular Rhythm, S1/S2 appreciated, no murmurs, rubs or gallops. ABDOMEN: Abdomen soft and non-tender x4 quadrants, no palpable masses or organomegaly. : Exam of the buttocks reveals a stage II sacral decubitus ulcer, no surrounding erythema or secondary evidence of infection, no purulent or bloody drainage. EXTREMITIES: Normal tone, moves all extremities spontaneously without reported pain. No obvious acute injury or deformity noted. NEURO: Alert, CN II-XII appear grossly intact. Tardive dyskenesia of the mouth noted, otherwise no obvious sensory or motor deficits. PSYCH: agitated affect, yelling, but ultimately redirectable and agreeable with exam. No reported suicidality or homicidality. SKIN: Warm, dry, color appropriate, normal turgor. No other rashes noted. Medical Decision Making Medical Decision Making MDM Narrative: 10:57 PM 04/03/2025 (April CAIN): The patient is a 69-year-old female with history of developmental delay, vascular dementia, and a known sacral pressure ulcer presenting [facility] the ED from [facility] for evaluation of worsening bleeding from the sacral wound. The patient denies any acute somatic complaint, in the ED the patient is nontoxic appearing, exam is largely benign, behavior appears at baseline per chart review. The patient's sacral wound appears to be stage II, no active bleeding, no evidence of surrounding cellulitis or infection, a Mepilex dressing was applied. At this time there is no indication for admission or further workup. Patient will be discharged to her shelter with instructions to continue following with the W[facility] Care Clinic for continued management of her pressure ulcer. Admission/Observation Consideration of admission/observation: Escalation of care including admission/observation considered External Record Review External record reviewed: Outpatient record Prescription Management I considered prescription management with: Pain Medication and Antibiotic Discharge Plan Discharge Clinical Impression: Stage II pressure ulcer of buttock Patient Disposition: Home, Self-Care Instructions: Pressure Injury (ED), Chronic Wounds (ED) Additional Instructions: Thank you for choosing [facility] Emergency Department for your care today. At this time there is no evidence of an acute process requiring admission to the hospital or continued ED observation, and it is safe to discharge you home. Thankfully your sacral wound today demonstrates no active bleeding or evidence of surrounding infection. Your wound was covered with a fresh dressing. Please continue following up with the Wound Clinic for continued management of your pressure ulcer. Please also follow up with your primary care physician for re-evaluation, additional management of your symptoms, and continued preventative care. If you do not have a primary care physician, please call the [facility] at [phone] to establish a new primary care physician. While waiting to establish your new primary care physician, you can call our Walk-in Care [facility] at [phone] for non-emergency needs. Please return to the emergency department if you develop a severe or sudden change in your symptoms, a fever over 100.4 that does not improve with Tylenol or Ibuprofen, recurrent vomiting, or any other new or worsening symptoms or concerns. Prescriptions: No Action (DME) compress.stocking,knee,reg,med Misc See Rx Instructions .Route Qty: 12 0RF Rx Instructions: Wear compression stockings daily. May remove at night nystatin 100,000 unit/gram Powder 1 appl TOPICAL BID PRN (Reason: Rash) Rx Instructions: rash in skin folds triamcinolone acetonide 0.1 % ointment 1 appl topical BID PRN (Reason: Skin Irritation) Rx Instructions: apply to the lower abdomen, groin, and Buttocks ( Once started apply 2 weeks on and 1 week off) betamethasone dipropionate 0.05 % ointment 1 appl topical BID PRN (Reason: Dry areas on hand) Rx Instructions: Once started, Apply 2 weeks on and 1 week off. ascorbic acid (vitamin C) [Vitamin C] 500 mg tablet 500 mg PO BID Balmex Adult Care 11.3 % Cream 1 appl TOPICAL BID Rx Instructions: apply to rash, groin, and buttocks dextromethorphan-guaifenesin [Guaifenesin-DM] 10-100 mg/5 mL Liquid 10 ml PO QID PRN (Reason: Cough) acetaminophen 325 mg Tablet 650 mg PO Q6H PRN (Reason: Headache/Pain, Scale 1-10) Qty: 60 0RF donepezil 5 mg Tablet 5 mg PO BEDTIME Qty: 30 0RF aspirin 81 mg Tablet,Delayed Release (Dr/Ec) 81 mg PO DAILY Qty: 30 0RF carbamazepine 200 mg Tablet 400 mg PO BEDTIME Qty: 60 0RF methenamine hippurate 1 gram Tablet 1 g PO BID Qty: 30 0RF tamsulosin 0.4 mg Capsule 0.4 mg PO DAILY Qty: 30 0RF loratadine 10 mg Tablet 10 mg PO DAILY Qty: 30 0RF ferrous sulfate 324 mg (65 mg iron) Tablet,Delayed Release (Dr/Ec) 324 mg PO MOWEFR@0900 Qty: 60 0RF carbamazepine 200 mg Tablet 200 mg PO DAILY Qty: 30 0RF diazepam 2 mg Tablet 1 mg PO BID Qty: 30 0RF diazepam 2 mg Tablet 2 mg PO BID PRN (Reason: agitation) Qty: 60 0RF quetiapine 200 mg Tablet 200 mg PO BID Qty: 60 0RF quetiapine 100 mg Tablet 100 mg PO DAILY@1200 Qty: 30 0RF trazodone 100 mg Tablet 100 mg PO BEDTIME Qty: 30 0RF melatonin 3 mg Tablet 9 mg PO BEDTIME Qty: 90 0RF docusate sodium 100 mg Capsule 100 mg PO BID Qty: 60 0RF levothyroxine [Synthroid] 200 mcg Tablet 200 mcg PO DAILY@0600 Qty: 30 0RF fluticasone propionate 50 mcg/actuation [place],Suspension 1 spray intranasal BID PRN (Reason: nasal congestion) Qty: 16 0RF sennosides 8.6 mg tablet 8.6 mg PO Q48H Qty: 45 3RF Rx Instructions: hold for diarrhea. call md if hold for 2 consecutive doses multivitamin Tablet 1 tab PO DAILY Qty: 90 3RF Gemtesa 75 mg tablet 75 mg PO DAILY Referrals: [facility] Wound Care Management [Provider Group] Clinical Impression: Stage II pressure ulcer of buttock Physician,Unknown J [Primary Care Provider, Medical] Interventions: ED Discharge Assessment Last Done: 04/03/25 23:50 Discharge Date/Time: 04/03/25 23:52 Print Language: Portuguese
--- NOTE | 2025-04-03 23:09 | PC.NURSE ---
Assumed care of pt at this time. Pt is a bit agitated but ready for discharge. T/w spoke with Susana from [facility] will try to figure out who is supposed to be here to pick her up. Susana believes she usually takes an ambulance back. Pt denies any complaints at this time and just wants to go with [place] .
[2025-04-03 23:15] VITALS: BP 132/57; PULSE 98; TEMP 37.3; O2SAT 98
[2025-04-03 23:50] VITALS: BP 132/57; PULSE 98; RESP 18; TEMP 37.3; O2SAT 98
== END 2025-04-03 23:52 | disposition home or self-care (01) ==
PROVIDERS: Emergency Provider Emergency Medicine
DX: L89.302 Pressure ulcer of unspecified buttock, stage 2 (principal); Z79.899 Other long term (current) drug therapy
CPT/HCPCS: 99283; 99284

== ENCOUNTER 2025-04-07 11:17 | Outpatient (AMB) | payer MEDICARE, MEDICAID, SELFPAY ==
--- NOTE | 2025-04-07 11:22 | A.OFFPC_ITS ---
Vital Signs 04/07/25 11:23 Height 5 ft 3 in BP 120/62 Blood Pressure Location Lt brachial Position Sitting Temp 97.6 F Temp Source Temporal Artery Scan Intake Visit Reasons: [place] Discharge Rubber Production Machine Operator Required: No Accompanied by: Unknown Allergies adhesive tape Allergy (Intermediate, Verified 04/07/25 11:22) itching and skin redness latex Allergy (Intermediate, Verified 04/07/25 11:22) skin rash and itching Seasonal Allergies Allergy (Verified 04/07/25 11:22) Itching weed pollen Allergy (Verified 04/07/25 11:22) stuffy nose DUST Allergy (Unknown, Uncoded 04/03/25 17:28) ITCHY/WATERY EYES surgical paper tape Allergy (Unknown, Uncoded 04/03/25 17:28) rash Tide Allergy (Unknown, Uncoded 04/03/25 17:28) rash Medication List - Last Reconciled 04/07/25 by PAYTON Katz acetaminophen 650 mg (2 x 325 mg) PO Q6H PRN ascorbic acid (vitamin C) (Vitamin C) 500 mg PO BID aspirin 81 mg PO DAILY betamethasone dipropionate 0.05% 1 appl topical BID PRN carbamazepine 200 mg PO DAILY carbamazepine 400 mg (2 x 200 mg) PO BEDTIME compress.stocking,knee,reg,med Wear compression stockings daily. May remove at night dextromethorphan-guaifenesin 10-100 mg/5 mL (Guaifenesin-DM) 10 mL PO QID PRN diazepam 1 mg (1/2 x 2 mg) PO BID diazepam 2 mg PO BID PRN docusate sodium 100 mg PO BID donepezil 5 mg PO BEDTIME ferrous sulfate 324 mg PO MOWEFR@0900 fluticasone propionate 50 mcg/actuation 1 spray intranasal BID PRN levothyroxine (Synthroid) 200 mcg PO DAILY@0600 loratadine 10 mg PO DAILY melatonin 9 mg (3 x 3 mg) PO BEDTIME methenamine hippurate 1 g PO BID multivitamin 1 tab PO DAILY nystatin 1 appl topical BID PRN quetiapine 100 mg PO DAILY@1200 quetiapine 200 mg PO BID sennosides 8.6 mg PO Q48H tamsulosin 0.4 mg PO DAILY trazodone 100 mg PO BEDTIME triamcinolone acetonide 0.1% 1 appl topical BID PRN vibegron (Gemtesa) 75 mg PO DAILY zinc oxide-vitamin B5-vit E 11.3 % (Balmex Adult Care) 1 appl topical BID Tobacco use date assessed: 01/31/25 Dental Screening Dental Screen Date: 01/31/25 HPI HPI Comments History of Present Illness Details 69-year-old female with history of vascu lar dementia, developmental delay, toxic multinodular goiter s/p thyroidectomy with postsurgical hypothyroidism, recurrent UTI presents to the office today accompanied by [facility] staff, Paty, for hospital discharge follow-up. She was initially admitted to general surgery for management of ileus. Treated with nasogastric tube for decompression. She was also followed by hospitalist service for management of comorbidities. Ileus did resolve and NGT tube was removed. She did have elevated LFTs with gallstones and HIDA scan was obtained which showed normal filling of the liver, gallbladder, CBD, and small bowel with decreased EF % with CCK but negative for cholecystitis (acute). She remained in symptomatic throughout admission and diet was successfully advanced. She did have some hy poxia on admission managed with incentive spirometry. Viral panel was negative. She also received chest physiotherapy. She was evaluated by ID due to the ESBL colonization who recommended Augmentin for 10 days which she was discharged on. She was then transferred to psychiatry for further evaluation and management of ongoing behavioral outbursts and agitation from 03/14-03/25. 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 While in the unit, she can not exhibit any signs of progression towards others or herself nor engaged in property damage. Discussion was had with patient's psychiatrist, Dr. Tammy houston, who did not recommend any medication changes at that time but rather providing simple clear instructions to help manage behaviors along with current medications as they typically occur if demands are not met at the moment she asks for them. She was continued on Seroquel 200 mg twice daily with additional dose of 100 mg at noon. Also started on diazepam for impulse and anxiety controlled advised to follow-up with psychiatrist as scheduled. She was also found to have a small wound on the buttock and was followed with the child development assistant recommending offloading, barrier creams and adequate nutrition. Also recommended covering dressing with ABD pad with daily changes. Was discharged with [facility] to continue with wound care. Upon returning to [facility], has required 1:1 supervision due to ongoing aggression and behavioral outbursts ROS Unable to obtain relalaible due to mental status Exam Constitutional - Awake and Alert, pleasant Eyes - PERRL Cardiovascular - rrr, no murmurs, s1/s2, 1+ ble edema Respiratory - deferred given somnolence and plan to transfer to ED Extremities - no calf tenderness bilaterally Skin - Warm/Dry. Stasis dermatitis. Unstageable ulceration of the gluteal cleft, appears improved from hospitalization photos. No induration, fluctuance or warmth Neurological - Alert & oriented to self and place Psychological - Appropriate affect [facility] Medical History (Updated 04/07/25 @ 12:56 by PAYTON Katz) Intermittent explosive disorder Abnormal MRI Post-surgical hypothyroidism History of ESBL E. coli infection Toxic multinodular goiter Vitamin D deficiency Hyperthyroidism Colon cancer Lung mass Developmental delay, mild Arthritis Surgical History History of carpal tunnel surgery of right wrist Hx of total thyroidectomy History of biopsy Hx of colonic polyps Hx of colonoscopy Family History Father No problems noted. Mother Medical history unknown Social History Household Members: Other Household Members Other:: care home with 2 other women and 2 men Housing: Other Housing Other:: care home Do you presently have visiting nurse or other home services: Yes (care home staff) Unable to assess alcohol history related to: Refusing to respond Alcohol intake: never Comment: 0+ Patient Tobacco Use Status: Never used Tobacco e-Cigarette/Vaping Use: Never Used Second Hand Smoke Exposure: No Advance Directives Date on File: 01/05/21 service: No Current occupational status: disabled Current occupation: right handed Sexual orientation: Straight/Heterosexual Cognitive needs: Yes (walker) Hearing needs: No Vision needs: Yes (rx glasses) Questionnaire Thrive Questionnaire Date Thrive assessed: 03/17/25 MARISSA-7 AMB Questionnaire MARISSA-7 Date MARISSA - 7 assessed: 01/31/25 Source: Developed by Drs. Harvinder Segura, Nadine Baumann, Vitaly Hernandez and colleagues, with an educational lian from [employer]. Physical exam (Primary Care) Vital Signs: Last Vital Signs Temp 97.6 F 04/07/25 11:23 BP 120/62 04/07/25 11:23 Tobacco/Smoking Status: Tobacco use Status Tobacco use date assessed 01/31/25 04/07/25 11:25 Patient Tobacco Use Status Never used Tobacco 04/07/25 11:25 e-Cigarette/Vaping Use Never Used 04/07/25 11:25 Thrive Assessment: Date of Thrive Assessment Date Thrive assessed 03/17/25 04/07/25 11:25 Coding Level of Care Code Est Pt Level 4 (07664) Complex EM visit Add On G2211 Diagnoses Hospital discharge follow-up Z09 Vascular dementia F01.50 Intermittent explosive disorder F63.81 Assessment & Plan Assessment & Plan (1) Hospital discharge follow-up: Code(s): Z09 - Encounter for follow-up examination after completed treatment for conditions other than malignant neoplasm Category: Medical Plan: General surgery H&P, Psychiatry H&P and discharge summary reviewed. CT abdomen/pelvis and HIDA scan as well as labs reviewed. Plan as below (2) Vascular dementia: Code(s): F01.50 - Vascular dementia, unspecified severity, without behavioral disturbance, psychotic disturbance, mood disturbance, and anxiety Category: Medical Plan: Ongoing behavioral outbursts and aggression. Review of Psychiatry notes recommend simple instructions and redirection as she did respond favorably to these while on the unit without evidence of aggression towards patients or staff or property. Continue home meds. (3) Intermittent explosive disorder: Code(s): F63.81 - Intermittent explosive disorder Category: Medical Plan: See above. Continue diazepam, carbamazepine, Seroquel as prescribed. Recommend 1:1 supervision by staff for behavioral management and deescalation. Follow-up with Dr. Randall as scheduled Plan Ileus resolved. Will recheck UA/UC given recent history. Plan as above. Follow-up as scheduled in June Orders: Orders UA CC w/rflx Micro + Cult Today F63.81 - Intermittent explosive disorder
[2025-04-07 11:23] VITALS: BP 120/62; TEMP 36.4
--- OUTSIDE RECORDS SUMMARY | 2025-04-07 12:14 | XMS_ITS | Clinical Summary ---
Author Organization [facility] Address [address] [place] [address] Phone Care Team Providers Care Construction Craft Laborer Name Role Phone Sher Patrick MD Primary Care Provider [phone] Allergies Active Allergy Reactions Criticality Noted Date [...] topic Insurance Medicare Medicaid [place] Care Teams Construction Craft Laborer Relationship Specialty Start Date End Date Sher Patrick MD [address] [place] [address] [address] [place] PCP - General Internal Medicine 09/17/24
--- OUTSIDE RECORDS SUMMARY | 2025-04-07 12:14 | XMS_ITS | Encounter Summary ---
Author Organization [facility] Address [address] [place] [address] Care Team Providers Care Watermelon Harvesting Supervisor Name Role Phone Sher Patrick Primary Care Provider [phone] Reason for Visit * Reason Onset Date Comments Needs to reschedule 09/28/2020 Encounter Details Date Type Department Care Team (Late st Contact Info) Description 09/28/2020 Telephone [facility] Central Scheduling Department [address] [place] [address] Telephone Intake, Staff Needs to reschedule Social [...] Description 05/09/2025 7:15 AM EDT Hospital Encounter [facility] Operating Room [address] [place] [address] Catracho Vidal MD MPH [address] [place] [address] 05/12/2025 7:15 AM EDT - 05/12/2025 8:20 AM EDT Surgery [facility] Operating Room [address] [place] [address] Catracho Vidal MD MPH [address] [place] [address] Colonoscopy Screening, High Risk with Possible Moderate Sedation [38067 (CPT )] Scheduled Procedures Name Priority Associated [...] documented as of this encounter Care Teams Watermelon Harvesting Supervisor Relationship Specialty Start Date End Date Sher Patrick [address] [place] [address] [place] [address] PCP - General 04/20/17 documented as of this encounter
--- OUTSIDE RECORDS SUMMARY | 2025-04-07 12:14 | XMS_ITS | Patient Health Record ---
Author Organization [facility] Address [address] [place] [address] Care Team Providers Care Tractor Expert Name Role Phone Sher Patrick MD Primary Care Provider Harvinder Dahl Unavailable [phone] Reason For Referral No Information Medications Medication [...] EVERY DAY Oral for 30 Active Nystatin 549815 UNIT/GM APPLY DIRECTE D TO SKIN TWICE [...] Problem Status W/U Status Risk Notes Problem 661249292 Encounter for screening for malignant neoplasm of colon (Z12.11) Active confirmed Problem 292339447 History of adenomatous polyp of colon (Z86.010) Active confirmed Problem 718761198 History of colon cancer (Z85.038) Active confirmed Problem 74105395 Rectal bleed (K62.5) Active confirmed Problem 601564731 History of rectal cancer (Z85.048) Active confirmed Plan Of Treatment Future Test Test Name Order Date FLEXIBLE SIGMOIDOSCOPY, DIAGNOSTIC 06/23 COLONOSCOPY 04/23/2019 Insurance Providers Payer Name Payer Address Payer Phone Subscriber Number Group Number Insured Name Patient Relationship to Insured Coverage Start Date Coverage End Date MEDICARE OF [place] [address] [place] [address] [id number] STEPHAN YUDELKA Self - patient is the insured MEDICAID OF [facility] [address] [place] [address] [id number] STEPHANVIKYHA Self - patient is the insured Medical (General) History Medical History History ICD Code colon and rectal cancer-in 2000 she was found to have 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 Reyes, and subsequently with chemotherapy and radiation therapy by Dr. Luis. colon polyps asthma depression anxiety component of mental retardation she denies any history of [place], diabetes, stroke, nor kidney disease urinary incontinence Recurrence of adenomatous ti ssue at the rectal anastomosis in 2011--resected partially by Dr. Bashir, and then sent to [facility] in [place] for a second opiinion. The remainder was removed endoscopically at [facility] in 2011 and shown to be a tubulovillous adenoma. A colonoscopy in 07/2013 at [facility] is described as negative. Surgical History Surgery Date(Month/Year) colon and rectal cancer as above ear surgery tubal ligation hernia repair knee replacement bilateral
== END 2025-04-07 11:50 | disposition home or self-care (01) ==
LOC: HO.HMCHD 11:18
PROVIDERS: Visit Provider Physician Assistant
DX: Z09 Encounter for follow-up examination after completed treatment for conditions other than malignant neoplasm (principal); F01.50 Vascular dementia, unspecified severity, without behavioral disturbance, psychotic disturbance, mood disturbance, and anxiety; F63.81 Intermittent explosive disorder

== ENCOUNTER → 2025-04-07 11:17 | Outpatient (BNVA) | payer MEDICARE, MEDICAID, SELFPAY | PROVIDERS: Visit Provider Physician Assistant | DX: Z09 Encounter for follow-up examination after completed treatment for conditions other than malignant neoplasm (principal); F01.50 Vascular dementia, unspecified severity, without behavioral disturbance, psychotic disturbance, mood disturbance, and anxiety; F63.81 Intermittent explosive disorder; Z79.899 Other long term (current) drug therapy | CPT/HCPCS: 99212 ==

== ENCOUNTER 2025-04-09 12:54 | Outpatient (REF) | payer MEDICARE, MEDICAID, SELFPAY ==
[2025-04-09 13:15] LABS: Appearance Urine Cloudy; Glucose Urine UA Negative (Negative); PH 6.0 (5.0-9.0); Specific Gravity - Urine 1.015 (1.005-1.025); UMIC TRIGGER UACC YES
[2025-04-09 13:33] LABS: UACC Culture Trigger YES
--- OUTSIDE RECORDS SUMMARY | 2025-04-09 13:44 | XMS_ITS | Clinical Summary ---
Author Organization [facility] Address [address] [address] Phone Care Team Providers Care Yardage Control Operator Forming Name Role Phone Sher Patrick MD Primary Care Provider [phone] Allergies Active Allergy Reactions Criticality Noted Date [...] topic Insurance Medicare Medicaid [place] Care Teams Yardage Control Operator Forming Relationship Specialty Start Date End Date Sher Patrick MD [address] [place] [address] DRIVE [address] [place] PCP - General Internal Medicine 09/17/24
--- OUTSIDE RECORDS SUMMARY | 2025-04-09 13:44 | XMS_ITS | Patient Health Record ---
Author Organization [facility] Address [address] [place] [address] Care Team Providers Care Heel Seat Pounder Name Role Phone Sher Patrick MD Primary Care Provider Harvinder Dahl Unavailable [phone] Reason For Referral No Information Medications Medication [...] EVERY DAY Oral for 30 Active Nystatin 584065 UNIT/GM APPLY DIRECTE D TO SKIN TWICE [...] Problem Status W/U Status Risk Notes Problem 088933101 Encounter for screening for malignant neoplasm of colon (Z12.11) Active confirmed Problem 587092224 History of adenomatous polyp of colon (Z86.010) Active confirmed Problem 908140078 History of colon cancer (Z85.038) Active confirmed Problem 11613044 Rectal bleed (K62.5) Active confirmed Problem 477831973 History of rectal cancer (Z85.048) Active confirmed Plan Of Treatment Future Test Test Name Order Date FLEXIBLE SIGMOIDOSCOPY, DIAGNOSTIC 06/23 COLONOSCOPY 04/23/2019 Insurance Providers Payer Name Payer Address Payer Phone Subscriber Number Group Number Insured Name Patient Relationship to Insured Coverage Start Date Coverage End Date MEDICARE OF [place] [address] [place] [address] [id number] STEPHAN YUDELKA Self - patient is the insured MEDICAID OF [facility] [address] [place] [address] [id number] STEPHANVIKYHA Self - patient is the insured Medical (General) History Medical History History ICD Code colon and rectal cancer-in 2000 she was found to have 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 Reeys, and subsequently with chemotherapy and radiation therapy by Dr. Luis. colon polyps asthma depression anxiety component of mental retardation she denies any history of [place], diabetes, stroke, nor kidney disease urinary incontinence Recurrence of adenomatous ti ssue at the rectal anastomosis in 2011--resected partially by Dr. Bashir, and then sent to [facility] in [place] for a second opiinion. The remainder was removed endoscopically at [facility] in 2011 and shown to be a tubulovillous adenoma. A colonoscopy in 07/2013 at [facility] is described as negative. Surgical History Surgery Date(Month/Year) colon and rectal cancer as above ear surgery tubal ligation hernia repair knee replacement bilateral
--- OUTSIDE RECORDS SUMMARY | 2025-04-09 13:44 | XMS_ITS | Encounter Summary ---
Author Organization [facility] Address [address] [place] [address] Care Team Providers Care Net Lead Architect Name Role Phone Sher Patrick Primary Care Provider [phone] Reason for Visit * Reason Onset Date Comments Needs to reschedule 09/28/2020 Encounter Details Date Type Department Care Team (Late st Contact Info) Description 09/28/2020 Telephone [facility] Central Scheduling Department [address] [place] [address] Telephone Intake, Staff Needs to reschedule Social [...] Care Team (Latest Contact Info) Description 05/09/2025 Hospital Encounter Catracho Vidal MD [facility] [address] [place], [place] [id number] 05/09/2025 7:15 AM EDT Hospital Encounter [facility] Operating Room [address] [place] [address] Catracho Vidal MD MPH [address] [place] [address] 05/12/2025 7:15 AM EDT - 05/12/2025 8:20 AM EDT Surgery [facility] Operating Room [address] [place] [address] Catracho Vidal MD MPH [address] [place] [address] Colonoscopy Screening, High Risk with Possible Moderate Sedation [53233 (CPT )] Scheduled Procedures Name Priority Associated [...] documented as of this encounter Care Teams Net Lead Architect Relationship Specialty Start Date End Date Sher Patrick [address] [place] [address] [place] [address] PCP - General 04/20/17 documented as of this encounter
== END 2025-04-09 12:55 | disposition home or self-care (01) ==
LOC: HO.10HDLNP 12:54
PROVIDERS: Visit Provider Physician Assistant
DX: F63.81 Intermittent explosive disorder (principal)
CPT/HCPCS: 81001; 87086; 87088; 87186

== ENCOUNTER 2025-04-24 10:45 | Outpatient (RCR) | payer MEDICARE, MEDICAID, SELFPAY | END 2025-04-24 16:07 | disposition home or self-care (01) | LOC: HO.WCC 10:45 | PROVIDERS: Visit Provider Surgery | DX: L89.322 Pressure ulcer of left buttock, stage 2 (principal); Z91.199 Patient's noncompliance with other medical treatment and regimen due to unspecified reason; R62.50 Unspecified lack of expected normal physiological development in childhood | CPT/HCPCS: 97597; 99213; 99214 ==

== ENCOUNTER 2025-04-29 10:22 | Outpatient (AMB) | payer MEDICARE, MEDICAID, SELFPAY ==
--- NOTE | 2025-04-29 10:24 | A.OFFVIS_ITS ---
Vital Signs 04/29/25 10:25 Height 5 ft 3 in Weight 144 lb 13.499 oz BMI 25.7 BP 130/76 Blood Pressure Location Lt brachial Position Sitting Pulse 64 Pulse Source Pulse Oximeter Pulse Oximetry (%) 95 Oxygen Delivery Method Room Air Intake Visit Reasons: f/u for postsurgical hypothyroidism Intake Note: Patient present today for post surgical hypothyroidism follow up visit. Bundle Clerk Required: No Accompanied by: supervisor communications and signals Allergies adhesive tape Allergy (Intermediate, Verified 04/29/25 10:30) itching and skin redness latex Allergy (Intermediate, Verified 04/29/25 10:30) skin rash and itching Seasonal Allergies Allergy (Verified 04/29/25 10:30) Itching weed pollen Allergy (Verified 04/29/25 10:30) stuffy nose DUST Allergy (Unknown, Uncoded 04/29/25 10:30) ITCHY/WATERY EYES surgical paper tape Allergy (Unknown, Uncoded 04/29/25 10:30) rash Tide Allergy (Unknown, Uncoded 04/29/25 10:30) rash Medication List - Last Reconciled 04/29/25 by Harvinder Wlech MD acetaminophen 650 mg (2 x 325 mg) PO Q6H PRN ascorbic acid (vitamin C) (Vitamin C) 500 mg PO BID aspirin 81 mg PO DAILY betamethasone dipropionate 0.05% 1 appl topical BID PRN carbamazepine 200 mg PO DAILY carbamazepine 400 mg (2 x 200 mg) PO BEDTIME compress.stocking,knee,reg,med Wear compression stockings daily. May remove at night dextromethorphan-guaifenesin 10-100 mg/5 mL (Guaifenesin-DM) 10 mL PO QID PRN diazepam 1 mg (1/2 x 2 mg) PO BID diazepam 2 mg PO BID PRN docusate sodium 100 mg PO BID donepezil 5 mg PO BEDTIME ferrous sulfate 324 mg PO MOWEFR@0900 fluticasone propionate 50 mcg/actuation 1 spray intranasal BID PRN Icy Hot Max (lido HCl-menthol) 4-1 % (lidocaine HCl-menthol) 1 appl topical BID PRN NS levothyroxine (Synthroid) 200 mcg PO DAILY@0600 loratadine 10 mg PO DAILY melatonin 9 mg (3 x 3 mg) PO BEDTIME methenamine hippurate 1 g PO BID multivitamin 1 tab PO DAILY nitrofurantoin macrocrystal 100 mg PO BID nystatin 1 appl topical BID PRN quetiapine 100 mg PO DAILY@1200 quetiapine 200 mg PO BID sennosides 8.6 mg PO Q48H tamsulosin 0.4 mg PO DAILY trazodone 100 mg PO BEDTIME triamcinolone acetonide 0.1% 1 appl topical BID PRN vibegron (Gemtesa) 75 mg PO DAILY zinc oxide-vitamin B5-vit E 11.3 % (Balmex Adult Care) 1 appl topical BID HPI Comments Details: This is a 69-year-old white female followed by endocrinology for management of post-surgical hypothyroidism Laboratory Tests 10/17/22 10/17/22 10/17/22 11:39 11:39 11:39 Albumin 3.7 25-OH Vitamin D Total 40.4 TSH 0.10 L Free T4 0.85 Total T3 100 Thyroid Stim Immunoglob <89 PTH Intact 60 Calcium (PTH Intact) 8.9 Thyroglobulin Antibody <1 Thyroid Peroxidase Ab 1 TSH Receptor Ab <1.00 Laboratory Tests 01/30/23 02:34 TSH 1.62 status post total thyroidectomy 10/18/2023 with benign pathology. Currently on 200 mcg levothyroxine . Recent TSH was elevated. Aid from [place] states she is getting L-T4 by self and away from food [facility] Medical History (Updated 04/07/25 @ 12:56 by PAYTON Katz) Intermittent explosive disorder Abnormal MRI Post-surgical hypothyroidism History of ESBL E. coli infection Toxic multinodular goiter Vitamin D deficiency Hyperthyroidism Colon cancer Lung mass Developmental delay, mild Arthritis Surgical History History of carpal tunnel surgery of right wrist Hx of total thyroidectomy History of biopsy Hx of colonic polyps Hx of colonoscopy Family History Father No problems noted. Mother Medical history unknown Social History Household Members: Other Household Members Other:: halfway with 2 other women and 2 men Housing: Other Housing Other:: halfway Do you presently have visiting nurse or other home services: Yes (halfway staff) Unable to assess alcohol history related to: Refusing to respond Alcohol intake: never Comment: 0+ Patient Tobacco Use Status: Never used Tobacco e-Cigarette/Vaping Use: Never Used Second Hand Smoke Exposure: No Advance Directives Date on File: 01/05/21 service: No Current occupational status: disabled Current occupation: right handed Sexual orientation: Straight/Heterosexual Cognitive needs: Yes (walker) Hearing needs: No Vision needs: Yes (rx glasses) Physical Exam Vital Signs: Last Vital Signs Pulse 64 04/29/25 10:25 BP 130/76 04/29/25 10:25 Pulse Ox 95 04/29/25 10:25 Oxygen Delivery Method Room Air 04/29/25 10:25 BMI result Body Mass Index 25.7 Const Other: Healing scar status post thyroidectomy Assessment & Plan Assessment & Plan (1) Post-surgical hypothyroidism: Code(s): E89.0 - Postprocedural hypothyroidism Category: Medical Plan: 69-year-old white female with a history of post-surgical hypothyroidism currently be replaced on levothyroxine 200 mcg. She appears to be clinically euthyroid but has a significantly elevated TSH level. Plan is to increase the levothyroxine to 250 mcg and to reinforce the take the levothyroxine away from other medications and way from food by 01:00 hour. Will recheck TSH and free T4 in 6 weeks time Orders: Orders Free T4 (Free Thyroxine) 6 Weeks E89.0 - Postprocedural hypothyroidism Thyroid Stimulating Hormone 6 Weeks E89.0 - Postprocedural hypothyroidism Medications: New levothyroxine (Synthroid) 50 mcg PO DAILY 30 tabs 5RF Coding Level of Care Code Est Pt Level 3 (99964) Diagnoses Post-surgical hypothyroidism E89.0
[2025-04-29 10:25] VITALS: BP 130/76; PULSE 64; O2SAT 95; BMI 25.7
--- OUTSIDE RECORDS SUMMARY | 2025-04-29 11:18 | XMS_ITS | Encounter Summary ---
Author Organization [facility] Address [address] [place] [address] Care Team Providers Care Mortgage Branch Manager Name Role Phone Sher Patrick Primary Care Provider [phone] Reason for Visit * Reason Onset Date Comments Needs to reschedule 09/28/2020 Encounter Details Date Type Department Care Team (Late st Contact Info) Description 09/28/[address] [facility] Central Scheduling Department [address] [place] [address] Telephone Intake, Staff Needs to reschedule Social [...] Hospital Encounter Catracho Vidal MD MPH [address] [place] [address] 06/06/2025 1:15 PM EDT Hospital Encounter [facility] Operating Room [address] [place] [address] Catracho Vidal MD MPH [address] [place] [address] 06/09/2025 1:15 PM EDT - 06/09/2025 2:20 PM EDT Surgery [facility] Operating Room [address] [place] [address] Catracho Vidal MD MPH [address] [place] [address] Colonoscopy Screening, High Risk with Possible Moderate Sedation [99055 (CPT )] Scheduled Procedures Name Priority Associated Diagnoses Date/Ti me COLONOSCOPY SCREENING, HIGH RISK WITH POSSIBLE MODERATE SEDATION Colorectal cancer (HCC) 06/09/2025 1:15 PM EDT documented as of this encounter Visit Diagnoses Not on filedocumented in this encounter Additional Health Concerns Infection Onset Date Last Indicated Resolved Time Multidrug resistant organism s ESBL Comment:ESBL E.coli 08/03/2020 08/03/2020 COVID-19 - Suspected infection 07/03/2021 07/03/2021 07/03/2021 7:00 PM EDT documented as of this encounter Care Teams Mortgage Branch Manager Relationship Specialty Start Date End Date Sher Patrick [address] [place] [address] [place] [address] PCP - General 04/20/17 documented as of this encounter
--- OUTSIDE RECORDS SUMMARY | 2025-04-29 11:18 | XMS_ITS | Patient Health Record ---
Author Organization [facility] Address [address] [place] [address] Care Team Providers Care Steward/Stewardess Night Name Role Phone Celina (RETIRED) Sher LORENZ Primary Care Provide r Unavailable Harvinder Simmons Unavailable [phone] Reason For Referral No Information Medications Medication [...] EVERY DAY Oral for 30 Active Nystatin 172088 UNIT/GM APPLY DIRECTE D TO SKIN TWICE [...] Problem Status W/U Status Risk Notes Problem 500105315 Encounter for screening for malignant neoplasm of colon (Z12.11) Active confirmed Problem 979693523 History of adenomatous polyp of colon (Z86.010) Active confirmed Problem 719566271 History of colon cancer (Z85.038) Active confirmed Problem 35897288 Rectal bleed (K62.5) Active confirmed Problem 834955201 History of rectal cancer (Z85.048) Active confirmed Plan Of Treatment Future Test Test Name Order Date FLEXIBLE SIGMOIDOSCOPY, DIAGNOSTIC 06/23 COLONOSCOPY 04/23/2019 Insurance Providers Payer Name Payer Address Payer Phone Subscriber Number Group Number Insured Name Patient Relationship to Insured Coverage Start Date Coverage End Date MEDICARE OF [place] [address] [place] [address] [id number] STEPHAN YUDELKA Self - patient is the insured MEDICAID OF [facility] [address] [place] [address] [id number] STEPHANVIKYHA Self - patient is the insured Medical (General) History Medical History History ICD Code colon and rectal cancer-in 2000 she was found to have 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 Reyes, and subsequently with chemotherapy and radiation therapy by Dr. Luis. colon polyps asthma depression anxiety component of mental retardation she denies any history of [place], diabetes, stroke, nor kidney disease urinary incontinence Recurrence of adenomatous ti ssue at the rectal anastomosis in 2011--resected partially by Dr. Bashir, and then sent to [facility] in [place] for a second opiinion. 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 A colonoscopy in 07/2013 at [facility] is described as negative. Surgical History Surgery Date(Month/Year) colon and rectal cancer as above ear surgery tubal ligation hernia repair knee replacement bilateral
--- OUTSIDE RECORDS SUMMARY | 2025-04-29 11:18 | XMS_ITS | Clinical Summary ---
Author Organization [facility] Address [address] [place] [address] Phone Care Team Providers Care Forestry Faculty Member Name Role Phone Sher Patrick MD Primary Care Provider [phone] Allergies Active Allergy Reactions Criticality Noted Date [...] topic Insurance Medicare Medicaid [place] Care Teams Forestry Faculty Member Relationship Specialty Start Date End Date Sher Patrick MD [address] [place] [address] DR[address] [place] PCP - General Internal Medicine 09/17/24
== END 2025-04-29 10:51 | disposition home or self-care (01) ==
LOC: HO.ENCR 10:23
PROVIDERS: Visit Provider Internal Medicine Endocrinology, Diabetes & Metabolism
DX: E89.0 Postprocedural hypothyroidism (principal)
CPT/HCPCS: 99213

== ENCOUNTER → 2025-04-29 10:22 | Outpatient (BNVA) | payer MEDICARE, MEDICAID, SELFPAY | PROVIDERS: Visit Provider Internal Medicine Endocrinology, Diabetes & Metabolism | DX: E89.0 Postprocedural hypothyroidism (principal) | CPT/HCPCS: 99212 ==

== ENCOUNTER 2025-05-08 10:27 | Outpatient (REF) | payer MEDICARE, MEDICAID, SELFPAY ==
[2025-05-08 10:49] LABS: Appearance Urine Cloudy; Glucose Urine UA Negative (Negative); PH >= 9.0 (5.0-9.0); Specific Gravity - Urine 1.015 (1.005-1.025); UMIC TRIGGER UACC YES
--- OUTSIDE RECORDS SUMMARY | 2025-05-08 10:59 | XMS_ITS | Encounter Summary ---
Author Organization [facility] Address [address] [place] [address] Care Team Providers Care Service Officer Name Role Phone Sher Patrick Primary Care Provider [phone] Reason for Visit * Reason Onset Date Comments Needs to reschedule 09/28/2020 Encounter Details Date Type Department Care Team (Late st Contact Info) Description 09/28/2020 Telephone [facility] Central Scheduling Department [address] [place] [address] Telephone Intake, Staff Needs to reschedule Social [...] Department Care Team (Latest Contact Info) Description 06/06/2025 12:05 PM EDT Hospital Encounter [facility] Operating Room [address] [place] [address] Catracho Vidal MD MPH [address] [place] [address] 06/09/2025 12:05 PM EDT - 06/09/2025 1:10 PM EDT Surgery [facility] Operating Room [address] [place] [address] Catracho Vidal MD MPH [address] [place] [address] Colonoscopy Screening, High Risk with Possible Moderate Sedation [16320 (CPT )] Scheduled Procedures Name Priority Associated Diagnoses Date/Ti me COLONOSCOPY SCREENING, HIGH RISK WITH POSSIBLE MODERATE SEDATION Colorectal cancer (HCC) 06/09/2025 12:05 PM EDT documented as of this encounter Visit Diagnoses Not on filedocumented in this encounter Additional Health Concerns Infection Onset Date Last Indicated Resolved Time 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
--- OUTSIDE RECORDS SUMMARY | 2025-05-08 11:00 | XMS_ITS | Clinical Summary ---
Author Organization [facility] Address [address] [place] [address] Phone Care Team Providers Care Shank Archer Name Role Phone Sher Patrick MD Primary Care Provider [phone] Allergies Active Allergy Reactions Criticality Noted Date [...] topic Insurance Medicare Medicaid [place] Care Teams Shank Archer Relationship Specialty Start Date End Date Sher Patrick MD [address] [place] [address] DRIVE [address] [place] PCP - General Internal Medicine 09/17/24
--- OUTSIDE RECORDS SUMMARY | 2025-05-08 11:00 | XMS_ITS | Patient Health Record ---
Author Organization [facility] Address [address] [place] [address] Care Team Providers Care Lace Machine Operator Name Role Phone Celina (RETIRED) Sher LORENZ Primary Care Provide r Unavailable Harvinder Simmons Unavailable [phone] Reason For Referral No Information Medications Medication [...] EVERY DAY Oral for 30 Active Nystatin 267519 UNIT/GM APPLY DIRECTE D TO SKIN TWICE [...] Problem Status W/U Status Risk Notes Problem 053866260 Encounter for screening for malignant neoplasm of colon (Z12.11) Active confirmed Problem 225881654 History of adenomatous polyp of colon (Z86.010) Active confirmed Problem 301013056 History of colon cancer (Z85.038) Active confirmed Problem 49307778 Rectal bleed (K62.5) Active confirmed Problem 636252351 History of rectal cancer (Z85.048) Active confirmed Plan Of Treatment Future Test Test Name Order Date FLEXIBLE SIGMOIDOSCOPY, DIAGNOSTIC 06/23 COLONOSCOPY 04/23/2019 Insurance Providers Payer Name Payer Address Payer Phone Subscriber Number Group Number Insured Name Patient Relationship to Insured Coverage Start Date Coverage End Date MEDICARE OF [place] [address] [place] [address] [id number] STEPHAN YUDELKA Self - patient is the insured MEDICAID OF [facility] [address] [place] [address] [id number] STEPHANVIKYHA Self - patient is the insured Medical (General) History Medical History History ICD Code colon and rectal cancer-in 2000 she was found to have 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 Reyes, and subsequently with chemotherapy and radiation therapy by Dr. Luis. colon polyps asthma depression anxiety component of mental retardation she denies any history of [place], diabetes, stroke, nor kidney disease urinary incontinence Recurrence of adenomatous ti ssue at the rectal anastomosis in 2011--resected partially by Dr. Bashir, and then sent to [facility] in [place] for a second opiinion. 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 A colonoscopy in 07/2013 at [facility] is described as negative. Surgical History Surgery Date(Month/Year) colon and rectal cancer as above ear surgery tubal ligation hernia repair knee replacement bilateral
[2025-05-08 11:06] LABS: UACC Culture Trigger YES
== END 2025-05-08 10:28 | disposition home or self-care (01) ==
LOC: HO.10HDLNP 10:27
PROVIDERS: Visit Provider Internal Medicine
DX: R30.0 Dysuria (principal)
CPT/HCPCS: 81001; 87086; 87088; 87186

== ENCOUNTER 2025-05-18 10:06 | Emergency (ER) | payer MEDICARE, MEDICAID, SELFPAY ==
[2025-05-18 10:08] VITALS: BP 144/65; PULSE 67; RESP 20; TEMP 37; O2SAT 97; BMI 28.3
--- OUTSIDE RECORDS SUMMARY | 2025-05-18 10:48 | XMS_ITS | Clinical Summary ---
Author Organization [facility] Address [address] [place] [address] Phone Care Team Providers Care Donor Recruitment Manager Name Role Phone Sher Patrick MD Primary Care Provider [phone] Allergies Active Allergy Reactions Criticality Noted Date [...] topic Insurance Medicare Medicaid [place] Care Teams Donor Recruitment Manager Relationship Specialty Start Date End Date Sher Patrick MD [address] [place] [address] DRIVE [address] [place] PCP - General Internal Medicine 09/17/24
--- OUTSIDE RECORDS SUMMARY | 2025-05-18 10:48 | XMS_ITS | Patient Health Record ---
Author Organization [facility] Address [address] [place] [address] Care Team Providers Care Animal Eviscerator Name Role Phone Celina (RETIRED) Sher LORENZ Primary Care Provide r Unavailable Harvinder Simmons Unavailable [phone] Reason For Referral No Information Medications Medication [...] EVERY DAY Oral for 30 Active Nystatin [id number] UNIT/GM APPLY DIRECTE D TO SKIN TWICE [...] Problem Status W/U Status Risk Notes Problem 656296319 Encounter for screening for malignant neoplasm of colon (Z12.11) Active confirmed Problem 952675562 History of adenomatous polyp of colon (Z86.010) Active confirmed Problem 423702401 History of colon cancer (Z85.038) Active confirmed Problem 27889318 Rectal bleed (K62.5) Active confirmed Problem 098524858 History of rectal cancer (Z85.048) Active confirmed Plan Of Treatment Future Test Test Name Order Date FLEXIBLE SIGMOIDOSCOPY, DIAGNOSTIC 06/23 COLONOSCOPY 04/23/2019 Insurance Providers Payer Name Payer Address Payer Phone Subscriber Number Group Number Insured Name Patient Relationship to Insured Coverage Start Date Coverage End Date MEDICARE OF [place] [address] [place] [address] [id number] STEPHAN YUDELKA Self - patient is the insured MEDICAID OF [facility] [address] [place] [address] [id number] STEPHANVIKYHA Self - patient is the insured Medical (General) History Medical History History ICD Code colon and rectal cancer-in 2000 she was found to have 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 Reyes, and subsequently with chemotherapy and radiation therapy by Dr. Luis. colon polyps asthma depression anxiety component of mental retardation she denies any history of [place], diabetes, stroke, nor kidney disease urinary incontinence Recurrence of adenomatous ti ssue at the rectal anastomosis in 2011--resected partially by Dr. Bashir, and then sent to [facility] in [place] for a second opiinion. 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 A colonoscopy in 07/2013 at [facility] is described as negative. Surgical History Surgery Date(Month/Year) colon and rectal cancer as above ear surgery tubal ligation hernia repair knee replacement bilateral
--- NOTE | 2025-05-18 11:53 | PC.NURSE ---
pt noted to become agitated/aggressive/combative towards senior care staff in [place]. senior care staff then took patient/left. LWBS.
== END 2025-05-18 11:54 | disposition left against medical advice (07) ==
PROVIDERS: Emergency Provider Emergency Medicine
DX: R30.0 Dysuria (principal); R45.1 Restlessness and agitation
CPT/HCPCS: 36415; 80048; 81001; 83605; 85025; 87040; 99281; 99283

== ENCOUNTER 2025-05-18 12:57 | Emergency (ER) | payer MEDICARE, MEDICAID, SELFPAY ==
[2025-05-18 13:38] VITALS: BP 119/56; PULSE 73; RESP 17; TEMP 36.8; O2SAT 99; BMI 25.5
--- NOTE | 2025-05-18 13:42 | ED_ITS ---
HPI - General Adult General Chief complaint: Urogenital-Female Stated complaint: UTI Blood in Urine Time Seen by Provider: 05/18/25 19:51 Source: patient Mode of arrival: ambulatory Limitations: no limitations History of Present Illness ED Provider: Damian CAIN HPI narrative: The patient is a 69-year-old female with a history of vascular dementia, mood disorder, and developmental delay presenting from her residential for evaluation of persistent lower abdominal pain and dysuria. Patient was complaining of dysuria and hematuria at her residential, underwent straight catheterization on 05/08 which showed positive for UTI, was started on Macrobid on 05/09. The patient has since completed the antibiotic regimen but is reporting persistent symptoms and presents to the ED for re-evaluation. The patient denies associated fever/chills, nausea, vomiting or other systemic complaint. Related Data Home Medications ?Medication ?Instructions ?Recorded ?Confirmed nystatin 100,000 unit/gram topical 1 appl topical BID PRN Rash 01/05/21 04/29/25 powder triamcinolone acetonide 0.1 % 1 appl topical BID PRN S kin 01/24/23 04/29/25 topical ointment Irritation ascorbic acid (vitamin C) 500 mg 500 mg PO BID 4 04/29/25 tablet (Vitamin C) betamethasone dipropionate 0.05 % 1 appl topical BID P RN Dry areas 03/13/24 04/29/25 topical ointment on hand vibegron 75 mg tablet (Gemtesa) 75 mg PO DAILY 5 04/29/25 dextromethorphan-guaifenesin 10 10 ml PO QID PRN Cough 03/12/25 04/29/25 mg-100 mg/5 mL oral liquid (Guaifenesin-DM) Previous Rx's ?Medication ?Instructions ?Recorded multivitamin 1 tab PO DAILY #90 tabs 12/01 compress.stocking,knee,reg,med #12 ea 03/21/25 acetaminophen 325 mg tablet 650 mg (2 x 325 mg) PO Q6H PRN 03/25/25 Headache/Pain, Scale 1-10 #60 tabs aspirin 81 mg tablet,delayed 81 mg PO DAILY #30 tabs 0 03/25/25 release carbamazepine 200 mg tablet 200 mg PO DAILY #30 tabs 0 03/25/25 carbamazepine 200 mg tablet 400 mg (2 x 200 mg) PO BED TIME #60 03/25/25 tabs diazepam 2 mg tablet 1 mg (1/2 x 2 mg) PO BID #30 tabs 03/25/25 diazepam 2 mg tablet 2 mg PO BID PRN agitation #6 0 tabs 03/25/25 docusate sodium 100 mg capsule 100 mg PO BID #60 caps 03/25/25 donepezil 5 mg tablet 5 mg PO BEDTIME #30 tabs ferrous sulfate 324 mg (65 mg 324 mg PO MOWEFR@0900 #6 0 tabs 03/25/25 iron) tablet,delayed release fluticasone propionate 50 1 spray intranasal BID PRN n shana 03/25/25 mcg/actuation nasal congestion #16 grams spray,suspension levothyroxine 200 mcg tablet 200 mcg PO DAILY@0600 #30 tabs 03/25/25 (Synthroid) loratadine 10 mg tablet 10 mg PO DAILY #30 tabs 03/03 01/24 melatonin 3 mg tablet 9 mg (3 x 3 mg) PO BEDTIME # 90 tabs 03/25/25 methenamine hippurate 1 gram tablet 1 g PO BID #30 tab s 03/25/25 quetiapine 100 mg tablet 100 mg PO DAILY@1200 #30 tab s 03/25/25 quetiapine 200 mg tablet 200 mg PO BID #60 tabs 03/25 sennosides 8.6 mg tablet 8.6 mg PO Q48H constipation #45 03/25/25 tabs tamsulosin 0.4 mg capsule 0.4 mg PO DAILY #30 caps trazodone 100 mg tablet 100 mg PO BEDTIME #30 tabs 0 03/25/25 nitrofurantoin macrocrystal 100 mg 100 mg PO BID #14 c aps 04/11/25 capsule Icy Hot Max (lidocaine 1 appl topical BID PRN pain #76.5 04/28/25 HCl-menthol) 4 %-1 % topical cream grams (lidocaine HCl-menthol) levothyroxine 50 mcg tablet 50 mcg PO DAILY #30 tabs 0 04/29/25 (Synthroid) Balmex Adult Care 11.3% topical 1 appl topical BID Bill h #340 grams 04/30/25 cream (zinc oxide-vitamin B5-vit E) Macrobid 100 mg capsule 100 mg PO Q12H 7 days #14 ca ps 05/09/25 (nitrofurantoin monohyd/m-cryst) nitrofurantoin macrocrystal 100 mg 100 mg PO BID #14 c aps 05/09/25 capsule cephalexin 500 mg capsule 500 mg PO BID #20 caps 05/18 Allergies Allergy/AdvReac Type Severity Reaction Status Date / Time adhesive tape Allergy Intermediate itching Verified 05/18/25 13:43 and skin redness latex Allergy Intermediate skin rash Verified 05/18/25 13:43 and itching Seasonal Allergies Allergy Itching Verified 05/18/25 13:43 weed pollen Allergy stuffy nose Verified 05/18/25 13:43 DUST Allergy Unknown ITCHY/WATERY Uncoded 05/18/25 13:43 EYES surgical paper tape Allergy Unknown rash Uncoded 05/18/25 13:43 Tide Allergy Unknown rash Uncoded 05/18/25 13:43 Review of Systems 2 Review of Systems: Yes all other systems are reviewed and are negative [facility] Past Medical History Medical History (Updated 05/18/25 @ 20:16 by Damian Cai PA-C) Intermittent explosive disorder Abnormal MRI Post-surgical hypothyroidism History of ESBL E. coli infection Toxic multinodular goiter Vitamin D deficiency Hyperthyroidism Colon cancer Lung mass Developmental delay, mild Arthritis Surgical History History of carpal tunnel surgery of right wrist Hx of total thyroidectomy History of biopsy Hx of colonic polyps Hx of colonoscopy Family History Family History Father No problems noted. 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 Members: Other Household Members Other:: care home with 2 other women and 2 men Housing: Other Housing Other:: care home Do you presently have visiting nurse or other home services: Yes (care home staff) Unable to assess alcohol history related to: Refusing to respond Alcohol intake: never Comment: 0+ Patient Tobacco Use Status: Never used Tobacco e-Cigarette/Vaping Use: Never Used Second Hand Smoke Exposure: No Advance Directives: Yes Advance Directives on File: Yes Advance Directives Date on File: 01/05/21 Do you have a plan to hurt others: No Plan Patient : No service: No Current occupational status: disabled Current occupation: right handed Sexual orientation: Straight/Heterosexual Cognitive needs: Yes (walker) Hearing needs: No Vision needs: Yes (rx glasses) Physical Exam ED Vital Signs: Vital Signs - 24 hr 05/18/25 13:38 05/18/25 19:35 Temperature 98.3 F 98.1 F Pulse Rate 73 64 Respiratory Rate 17 16 Blood Pressure 119/56 L 134/56 L Pulse Oximetry 99 98 Oxygen Delivery Method Room Air Room Air BMI result Body Mass Index 25.5 CONSTITUTIONAL: The patient appears non-toxic, well nourished and in no acute distress. Vital signs as documented. HEAD: Atraumatic, normocephalic. EYES: EOMs grossly intact, pupils equal, conjunctiva clear, no exudate. ENT: Nares patent, no discharge. Airway patent, no audible stridor, visible mucosa is pink and moist without noted lesions. NECK: trachea is midline, no obvious masses or gross abnormalities. CHEST: Symmetric movement, normal appearance. LUNGS: Non-labored work of breathing. CARDIAC: No evidence of hypoperfusion. ABDOMEN: Abdomen soft and non-tender x4 quadrants, no palpable masses or organomegaly. : Deferred. EXTREMITIES: Moves all extremities spontaneously without reported pain. No obvious injury or deformity noted. NEURO: Alert and oriented x3, CN II-XII appear grossly intact. Cerebellar Functioning grossly intact. Speech clear and appropriate. SKIN: Warm, dry, color appropriate. No rashes or lesions noted. Course Course Course Narrative: Medical screening exam performed. Please refer to detailed history, exam, evaluation, and management by primary provider. Recent diagnosis of UTI on May 08, patient placed on nitrofurantoin for which she completed the entire course. Patient with continued symptoms and now with hematuria. No abdominal pain. Review of culture demonstrates Proteus mirabilis, resistant to nitrofurantoin but susceptible to cephalosporins, Bactrim and Cipro. JS Medical Decision Making Medical Decision Making [facility] Narrative: 8:10 PM 05/18/2025 (April CAIN): The patient is a 69-year-old female with a history of vascular dementia, mood disorder, and developmental delay presenting from her residential for evaluation of persistent lower abdominal pain and dysuria. Patient was complaining of dysuria and hematuria at her residential, underwent straight catheterization on 05/08 which showed positive for UTI, was started on Macrobid on 05/09. The patient has since completed the antibiotic regimen but is reporting persistent symptoms and presents to the ED for re- evaluation. The patient denies associated fever/chills, nausea, vomiting or other systemic complaint. In the ED patient appears well, no acute exam findings. Chart review reveals patient's urine culture from 05/08 was positive for Proteus that is pansensitive except for Macrobid. Patient will be initiated on cephalexin and discharged to follow up with PCP. Admission/Observation Consideration of admission/observation: Escalation of care including admission/observation considered Lab Data MDM Lab Attestation statement: I reviewed the patient's lab results. 05/18/25 14:08 05/18/25 14:08 Labs: Lab Results 05/18/25 05/18/25 Range/Units 14:08 18:46 WBC 8.9 (4.8-10.8) X10*3/uL RBC 4.03 L D (4.20-5.50) X10*6/uL Hgb 11.7 L D (12.0-16.0) g/dl Hct 37.0 D (37.0-47.0) % MCV 91.8 (80.0-98.0) fL MCH 29.0 (27.0-33.0) pg MCHC 31.6 (31.0-35.0) g/dl RDW 13.2 (11.0-16.0) % Plt Count 253 (160-400) X10*3/uL MPV 9.0 L (9.4-12.3) fL Immature Gran % (Auto) 0.1 (0.0-0.4) % Neut % (Auto) 66.9 (45-73) % Lymph % (Auto) 21.2 (20-40) % [place] % (Auto) 8.3 (2-11) % Eos % (Auto) 2.8 (0-4) % Baso % (Auto) 0.7 (0-2) % Lymph # (Auto) 1.9 (1.2-4.9) X10*3/uL [place] # (Auto) 0.7 (0.1-1.2) X10*3/uL Eos # (Auto) 0.3 (0.0-0.4) X10*3/uL Baso # (Auto) 0.1 (0.0-0.2) X10*3/uL Abs Immat Gran (auto) 0.01 (0.00-0.03) X10*3/uL Absolute Neuts (auto) 6.0 (2.0-8.3) x10*3/uL Absolute Nucleated RBC 0.000 (0.0-0.012) X10*3/uL Nucleated RBC % (auto) 0.0 (0.0-0.2) /100WBC Sodium 144 (135-145) mmol/L Potassium 3.9 (3.3-5.1) mmol/L Chloride 109 H (96-108) mmol/L Carbon Dioxide 26 (22-29) mmol/L Anion Gap 13 (12-20) BUN 38 H (9-16) mg/dL Creatinine 1.03 (0.5-1.4) mg/dL Estim Creat Clear Calc 44.4 Estimated GFR 53 Random Glucose 89 (60-115) mg/dL Lactic Acid 1.2 (0.5-2.0) mmol/L Calcium 9.1 (8.4-10.2) mg/dL Urine Color Yellow Urine Appearance Turbid Urine pH >= 9.0 (5.0-9.0) Ur Specific [place] 1.020 (1.005-1.025) Urine Protein 300 (3+) H (Neg-Trace) mg/dL Urine Glucose (UA) Negative (Negative) mg/dL Urine Ketones Negative (Negative) mg/dL Urine Blood Large (3+) H (Negative) Urine Nitrite Negative (Negative) Ur Leukocyte Esterase Large (3+) H (Negative) Urine RBC >20 H (0-2) /HPF Urine WBC >50 H (0-5) /HPF Ur Squamous Epith Cells 0-2 (0-2) /HPF Urine Bacteria 4+ (None Seen) Hyaline Casts 3-5 (0-2) /LPF External Record Review External record reviewed: Outpatient record and Prior outpatient labs Prescription Management I considered prescription management with: Antibiotic Discharge Plan Discharge Clinical Impression: Urinary tract infection Patient Disposition: Home, Self-Care Instructions: Urinary Tract Infection in Women (ED) Additional Instructions: Thank you for choosing [facility] Department for your care today. Your laboratory evaluation and exam today shows no evidence of developing sepsis or worsening condition requiring admission to the hospital or continued ED observation, and it is safe to discharge you home. Review of your urine culture that resulted on 05/11 reveals that your urinary tract infection is resistant to Macrobid, the antibiotic you were placed on. Today we have started you on a new antibiotic called cephalexin. Your urine culture from the shows that this antibiotic will be effective against your infection. Please take the antibiotic as prescribed until it is finished. You may take alternating (staggered) doses of ibuprofen 600mg and Tylenol 1000mg every 4 hours as needed for any additional pain. Please stay well hydrated and get plenty of rest. Please follow up with your primary care physician for re-evaluation, additional management of your symptoms, and continued preventative care. If you do not have a primary care physician, please call the [facility] at [phone] to establish a new primary care physician. While waiting to establish your new primary care physician, you can call our [facility] at [phone] for non-emergency needs. Please return to the emergency department if you develop a severe or sudden change in your symptoms, a fever over 100.4 that does not improve with Tylenol or Ibuprofen, recurrent vomiting, or any other new or worsening symptoms or concerns. Prescriptions: New cephalexin 500 mg capsule 500 mg PO BID Qty: 20 0RF No Action (DME) compress.stocking,knee,reg,med Misc See Rx Instructions .Route Qty: 12 0RF Rx Instructions: Wear compression stockings daily. May remove at night nitrofurantoin macrocrystal 100 mg capsule 100 mg PO BID Qty: 14 0RF Rx Instructions: must administer with a meal/food Icy Hot Max (lido HCl-menthol) 4-1 % cream 1 appl topical BID PRN (Reason: pain) Qty: 76.5 3RF Balmex Adult Care 11.3 % cream 1 appl TOPICAL BID Qty: 340 1RF Rx Instructions: apply to rash, groin, and buttocks nitrofurantoin macrocrystal 100 mg capsule 100 mg PO BID Qty: 14 0RF Rx Instructions: must administer with a meal/food nitrofurantoin monohyd/m-cryst [Macrobid] 100 mg capsule 100 mg PO Q12H 7 Days Qty: 14 0RF Rx Instructions: must administer with a meal/food nystatin 100,000 unit/gram Powder 1 appl TOPICAL BID PRN (Reason: Rash) Rx Instructions: rash in skin folds triamcinolone acetonide 0.1 % ointment 1 appl topical BID PRN (Reason: Skin Irritation) Rx Instructions: apply to the lower abdomen, groin, and Buttocks ( Once started apply 2 weeks on and 1 week off) betamethasone dipropionate 0.05 % ointment 1 appl topical BID PRN (Reason: Dry areas on hand) Rx Instructions: Once started, Apply 2 weeks on and 1 week off. ascorbic acid (vitamin C) [Vitamin C] 500 mg tablet 500 mg PO BID dextromethorphan-guaifenesin [Guaifenesin-DM] 10-100 mg/5 mL Liquid 10 ml PO QID PRN (Reason: Cough) acetaminophen 325 mg Tablet 650 mg PO Q6H PRN (Reason: Headache/Pain, Scale 1-10) Qty: 60 0RF donepezil 5 mg Tablet 5 mg PO BEDTIME Qty: 30 0RF aspirin 81 mg Tablet,Delayed Release (Dr/Ec) 81 mg PO DAILY Qty: 30 0RF carbamazepine 200 mg Tablet 400 mg PO BEDTIME Qty: 60 0RF methenamine hippurate 1 gram Tablet 1 g PO BID Qty: 30 0RF tamsulosin 0.4 mg Capsule 0.4 mg PO DAILY Qty: 30 0RF loratadine 10 mg Tablet 10 mg PO DAILY Qty: 30 0RF ferrous sulfate 324 mg (65 mg iron) Tablet,Delayed Release (Dr/Ec) 324 mg PO MOWEFR@0900 Qty: 60 0RF carbamazepine 200 mg Tablet 200 mg PO DAILY Qty: 30 0RF diazepam 2 mg Tablet 1 mg PO BID Qty: 30 0RF diazepam 2 mg Tablet 2 mg PO BID PRN (Reason: agitation) Qty: 60 0RF quetiapine 200 mg Tablet 200 mg PO BID Qty: 60 0RF quetiapine 100 mg Tablet 100 mg PO DAILY@1200 Qty: 30 0RF trazodone 100 mg Tablet 100 mg PO BEDTIME Qty: 30 0RF melatonin 3 mg Tablet 9 mg PO BEDTIME Qty: 90 0RF docusate sodium 100 mg Capsule 100 mg PO BID Qty: 60 0RF levothyroxine [Synthroid] 200 mcg Tablet 200 mcg PO DAILY@0600 Qty: 30 0RF fluticasone propionate 50 mcg/actuation [place],Suspension 1 spray intranasal BID PRN (Reason: nasal congestion) Qty: 16 0RF sennosides 8.6 mg tablet 8.6 mg PO Q48H Qty: 45 3RF Rx Instructions: hold for diarrhea. call md if hold for 2 consecutive doses multivitamin Tablet 1 tab PO DAILY Qty: 90 3RF Gemtesa 75 mg tablet 75 mg PO DAILY levothyroxine [Synthroid] 50 mcg tablet 50 mcg PO DAILY Qty: 30 5RF Referrals: Kori Stanley NP [Primary Care Provider, Internal Medicine] Clinical Impression: Urinary tract infection Print Language: Swazi
[2025-05-18 14:14] LABS: Hematocrit 37.0 % (37.0-47.0); Hemoglobin 11.7 g/dl (12.0-16.0); Imm Gran Abs Auto 0.01 X10*3/uL (0.00-0.03); Imm Gran Pct Auto 0.1 % (0.0-0.4); Lymphocytes Absolute Auto 1.9 X10*3/uL (1.2-4.9); Mean Corpuscular HGB Conc 31.6 g/dl (31.0-35.0); Mean Corpuscular Hemoglobin 29.0 pg (27.0-33.0); Mean Corpuscular Volume 91.8 fL (80.0-98.0); NRBC Abs Auto 0.000 X10*3/uL (0.0-0.012); NRBC Pct Auto 0.0 /100WBC (0.0-0.2); Platelet Count 253 X10*3/uL (160-400); Red Blood Count 4.03 X10*6/uL (4.20-5.50); White Blood Count 8.9 X10*3/uL (4.8-10.8)
[2025-05-18 14:15] LABS: MANUAL DIFF FLAG NO
[2025-05-18 14:30] LABS: Anion Gap 13 (12-20); Blood Urea Nitrogen 38 mg/dL (9-16); Calcium 9.1 mg/dL (8.4-10.2); Carbon Dioxide 26 mmol/L (22-29); Chloride 109 mmol/L (96-108); Creatinine Clr Calc Pharmacy 44.4; Estimated Glomerular Filt Rate 53; Potassium 3.9 mmol/L (3.3-5.1); Sodium 144 mmol/L (135-145)
[2025-05-18 19:11] LABS: Appearance Urine Turbid; Glucose Urine UA Negative (Negative); PH >= 9.0 (5.0-9.0); Specific Gravity - Urine 1.020 (1.005-1.025); UMIC TRIGGER UA YES
[2025-05-18 19:35] VITALS: BP 134/56; PULSE 64; RESP 16; TEMP 36.7; O2SAT 98
--- NOTE | 2025-05-18 19:38 | PC.NURSE ---
Patient alert, oriented to self and familiar person, VSS. Patient reports burning discomfit with urination and blood in urine. Patient failed outpatient treatment with oral antibiotic for UTI. Patient changed over into a hospital attire, shelter staff member at bedside, call carrero within patient's reach. Patient awaiting to be sen by ED provider.
[2025-05-18 20:26] VITALS: BP 134/56; PULSE 64; RESP 16; TEMP 36.7; O2SAT 98
== END 2025-05-18 20:28 | disposition home or self-care (01) ==
PROVIDERS: Physician Assistant; Emergency Provider Emergency Medicine; PCP Nurse Practitioner Family
DX: N39.0 Urinary tract infection, site not specified (principal); R10.30 Lower abdominal pain, unspecified; R30.0 Dysuria; R31.9 Hematuria, unspecified
CPT/HCPCS: 36415; 80048; 81001; 83605; 85025; 87040; 99283; 99284

== ENCOUNTER 2025-06-06 10:23 | Outpatient (AMB) | payer MEDICARE, MEDICAID, SELFPAY ==
--- OUTSIDE RECORDS SUMMARY | 2025-06-06 07:15 | XMS_ITS | Encounter Summary ---
Author Organization [facility] Address [address] [place] [address] Care Team Providers Care Incinerator Attendant Name Role Phone Sher Patrick Primary Care Provider [phone] Reason for Visit * Auth/Cert (Routine) Specialty Diagnoses / Procedures Referred By Gini t Referred To Contact Diagnoses Colorectal cancer (HCC) Recurrent anastomotic polyp Procedures ND COLONOSCOPY FLX DX W/COLLJ SPEC WHEN PFRMD Colonoscopy Screening, High Risk with Possible Moderate Sedation Referral ID Status Reason Start Date Expiration Date Visits Re quested Visits Authorized [id number] [phone] Encounter Details Date Type Department Care Team (Latest Contact Info) Description 06/06/2025 7:15 AM EDT Hospital Encounter [facility] Operating Room [address] [id number] Catracho Vidal MD MPH [address], [place] [id number] Colorectal cancer (Primary Dx); Pre-op evaluation Social History Tobacco Use Types Packs/Day Years Used Date Smoking Tobacco: Never Smokeless Tobacco: Never Alcohol Use Standard Drinks/Week Comments Never 0 (1 standard drink = 0.6 oz pur e alcohol) [facility] Utilities Answer Date Recorded In [...] Procedure Summary Date: 06/09/2025 Room / Location: [facility] OR OR Procedure(s): Colonoscopy Screening, High Risk with Possible Moderate Sedation Pre-Op Diagnosis Codes: * Colorectal cancer (HCC) [C19] Surgeon(s): Catracho Vidal MD MPH Laterality: N/A Anesthesia Type from Case: Monitor Anesthesia Care Chief Complaint: as relayed by type copy examiner -- hx colon cancer s/p LAR, s/p [...] history is obtained by chart review of [facility] medical record and information received from patient's facility. Intermediate (p) Bertha / (f) or [phone] Past Medical History: Diagnosis Date Anxiety worsening [...] Right 07/2024 COLECTOMY Rectal cancer HERNIA REPAIR ND COLONOSCOPY FLX DX W/COLLJ SPEC WHEN PFRMD N/A 08/05/2020 Procedure: COLONOSCOPY, DIAGNOSTIC, WITH POSSIBLE MODERATE SEDATION; Surgeon: Catracho Vidal MD MPH; Location: [facility]; Service: Colorectal ND COLONOSCOPY FLX DX W/COLLJ SPEC WHEN PFRMD N/A 12/23/2020 Procedure: COLONOSCOPY, DIAGNOSTIC, WITH POSSIBLE MODERATE SEDATION; Surgeon: Catracho Vidal MD MPH; Location: [facility] OR; Service: Colorectal ND COLONOSCOPY FLX DX W/COLLJ SPEC WHEN PFRMD N/A 07/05/2021 Procedure: COLONOSCOPY, DIAGNOSTIC, POLYPECTOMY WITH MODERATE SEDATION ; Surgeon: Catracho Vidal MD MPH; Location: [facility] OR; Service: Colorectal ND COLONOSCOPY FLX DX W/COLLJ SPEC WHEN PFRMD N/A 03/20/2023 Procedure: DIAGNOSTIC FLEXIBLE COLONOSCOPY PROXIMAL TO SPLENIC FLEXURE WITH COLLECTION OF SPECIMEN BY WASHING AND COLON DECOMPRESSION; Surgeon: Catracho Vidal MD MPH; Location: [facility] OR; Service: Colorectal ND COLONOSCOPY FLX DX W/COLLJ SPEC WHEN PFRMD N/A 09/19/2023 Procedure: DIAGNOSTIC FLEXIBLE COLONOSCOPY PROXIMAL TO SPLENIC FLEXURE WITH COLLECTION OF SPECIMEN BY WASHING AND COLON DECOMPRESSION; Surgeon: Catracho Vidal MD MPH; Location: [facility] OR; Service: Colorectal ND COLONOSCOPY FLX DX W/COLLJ SPEC WHEN PFRMD N/A 04/01/2024 Procedure: COLONOSCOPY SCREENING, LOW RISK WITH POSSIBLE MODERATE SEDATION; Surgeon: Catracho Vidal MD MPH; Location: [facility]; Service: Colorectal ND COLONOSCOPY W/BIOPSY SINGLE/MULTIPLE Left 08/22/2019 Procedure: COLONOSCOPY W/ BIOPSY, SINGLE OR MULTIPLE WITH POSSIBLE MODERATE SEDATION; Surgeon: Catracho Vidal MD MPH; Location: [facility] Endo; Service: Colorectal ND COLSC FLX W/RMVL OF TUMOR POLYP LESION SNARE TQ Left 08/05/2020 Procedure: COLONOSCOPY, FLEXIBLE; WITH REMOVAL OF TUMOR(S), POLYP(S), OR OTHER LESION(S) BY SNARE TECHNIQUE AND POSSIBLE MODERATE SEDATION; Surgeon: Catracho Vidal MD MPH; Location: [facility] Endo; Service: Colorectal ND EXCIS CHALAZION,GEN ANESTHESIA N/A 11/04/2024 Procedure: TRANSANAL ENDOSCOPIC MICROSURGERY, possible TAMIS. with air seal; Surgeon: Catracho Vidal MD MPH; Location: [facility] OR; Service: Colorectal ND SGMDSC FLX W/DCMPRN W/PLMT DCMPRN TUBE N/A [...] Anticoagulants: no Allergies Allergen Reactions Latex Rash Penryn Pollen Unknown Dust [House Dust] Wheezing Mite [...] the past 3 months: no known (per [facility] records) VISIT DIAGNOSIS: 1. Colorectal cancer 2. [...] exam will be performed by a pre-testing NURSING TECH / PA or the surgeon / designee. The physical exam portion of the H&P will be documentedas an Addendum to this note, or less commonly as a separate Brief Progress Note. 1. Physical exam and Anesthesia evaluation day of procedure. Anesthesia consent to be done by inpatient team once admitted for surgery. Guardian / Proxy: Isi Thompson [phone] HCP / Incapacity documentation in EPIC. 2. Labs: As per admitting team 3. EKG: As per admitting team 4. DOS Labs: As per admitting team 5. Pre-op instructions reviewed and faxed to facility. Receipt confirmed by Bertha advising to stop iron supplementation and multivitamins x7 days prior to the procedure. 6. Anticoagulation / Antiplatelet / Aspirin Plan: N/A 7. Cardiac: Equipment Monitor Phototypesetting: no known 8. Pulmonary: Cryptological Technician: no known 9. Pending Items: to be pre-admitted for bowel prep, consent; pre-op work-up as per admitting team Patient will be evaluated by Anesthesia and their surgeon on the day of surgery. Chantale Babb PA-C PreSurgical Evaluation Department of Anesthesiology [facility] THE ABOVE DOCUMENT SERVES THE TELEPHONE HISTORY [...] be pre-admitted to the [place] [address] Enter through the main lobby Walk straight [...] deodorant, fragrance, creams, or lotions. Remove fingernail chadian or artificial nails. Do not wear makeup [...] to arrival for procedure unless they have samaritan or cultural reasons not to. Do not [...] Upcoming Encounters Date Type Department Care Team (Late st Contact Info) Description 06/09/2025 7:15 AM EDT - 06/09/2025 8:20 AM EDT Surgery [facility] Operating Room [address] [place] [address] Catracho Vidal MD MPH [address] [place] [address] Colonoscopy Screening, High Risk with Possible Moderate Sedation [16711 (CPT )] Scheduled Procedures Name Priority Associated [...] documented as of this encounter Care Teams Incinerator Attendant Relationship Specialty Start Date End Date Sher Patrick [address] [place] [address] [place] [address] PCP - General 04/20/17 documented as of this encounter
--- NOTE | 2025-06-06 10:26 | MHC.OFFVIS ---
Vital Signs 06/06/25 10:31 Height 5 ft 2 in Weight 67.585 kg BMI 27.2 BP 122/78 Blood Pressure Location Lt brachial Position Sitting Respiration 16 Pulse 77 Pulse Source Pulse Oximeter Temp 99.4 F Temp Source Oral Pulse Oximetry (%) 96 Oxygen Delivery Method Room Air Intake Visit Reasons: 4 Month F/U Intake Note: Patient is here for 4 month month follow up. Allergies adhesive tape Allergy (Intermediate, Verified 06/06/25 10:31) itching and skin redness latex Allergy (Intermediate, Verified 06/06/25 10:31) skin rash and itching Seasonal Allergies Allergy (Verified 06/06/25 10:31) Itching weed pollen Allergy (Verified 06/06/25 10:31) stuffy nose DUST Allergy (Unknown, Uncoded 06/06/25 10:31) ITCHY/WATERY EYES surgical paper tape Allergy (Unknown, Uncoded 06/06/25 10:31) rash Tide Allergy (Unknown, Uncoded 06/06/25 10:31) rash HPI Comments Details: 69-year-old female with history of vascular dementia, developmental delay, toxic multinodular goiter s/p thyroidectomy with postsurgical hypothyroidism, recurrent UTI presents to the office today accompanied by snf staff, Bertha. She is very pleasant today. Will be admitted to [facility] for colonoscopy this afternoon. She is typically admitted for 3-4 days and undergoes prep and procedure while admitted. Does have a remote history of colon cancer in 2001. Hypothyroidism-post surgical. following with [facility] endocrinology. Last TSH 22 with normal free T4. Levothyroxine was increased to 250 mcg daily. Due for blood work which has been ordered by endo Vascular dementia with mood disturbance-following with Psychiatry. Currently on quetiapine 100 mg daily at noon and 200 mg twice daily, donepezil, carbamazepine 200 mg daily and 400 mg nightly as well as trazodone. Occasional behavioral outbursts described as related to personality conflicts per snf staff in past. but overall stable Recurrent UTI/incontinence-on Gemtesa and methenamine as well as tamsulosin Concerns: None Health maintenance: Admitted for colonoscopy later this afternoon Last screening mammogram 11/2024 with 1 year follow-up advised, negative for malignancy Last DEXA scan 11/2024 showing osteopenia ROS: General: No fevers, malaise, unintentional weight loss HEENT: No blurred vision, diplopia. No sore throat, nasal congestion, rhinorrhea, sinus pain, ear pain Cardiovascular: No chest pain, palpitations, or leg edema Respiratory: No shortness of breath, wheezing, cough GI: No abdominal pain, nausea, vomiting, diarrhea, constipation, melena, hematochezia : No dysuria, hematuria, increased urinary frequency, decreased urinary output MSK: No myalgia, back pain Neuro: No headaches, weakness, paresthesias Skin: No rashes or lesions EXAM: Constitutional - Awake and Alert, No apparent distress Eyes - PERRL Cardiovascular - S1S2, RRR, No edema Respiratory - Normal lung expansion, Normal respiratory effort, No respiratory distress, CTA bilaterally Extremities - no calf tenderness bilaterally, no swelling Skin - Warm/Dry Neurological - Alert & oriented x3 Psychological - Appropriate affect [employer] Medical History Intermittent explosive disorder Abnormal MRI Post-surgical hypothyroidism History of ESBL E. coli infection Toxic multinodular goiter Vitamin D deficiency Hyperthyroidism Colon cancer Lung mass Developmental delay, mild Arthritis Surgical History History of carpal tunnel surgery of right wrist Hx of total thyroidectomy History of biopsy Hx of colonic polyps Hx of colonoscopy Family History Father No problems noted. Mother Medical history unknown Social History Household Members: Other Household Members Other:: intermediate with 2 other women and 2 men Housing: Other Housing Other:: intermediate Do you presently have visiting nurse or other home services: Yes (intermediate staff) Unable to assess alcohol history related to: Refusing to respond Alcohol intake: never Comment: 0+ Patient Tobacco Use Status: Never used Tobacco e-Cigarette/Vaping Use: Never Used Second Hand Smoke Exposure: No Advance Directives Date on File: 01/05/21 service: No Current occupational status: disabled Current occupation: right handed Sexual orientation: Straight/Heterosexual Cognitive needs: Yes (walker) Hearing needs: No Vision needs: Yes (rx glasses) Physical Exam Vital Signs: Last Vital Signs Temp 99.4 F 06/06/25 10:31 Pulse 77 06/06/25 10:31 Resp 16 06/06/25 10:31 BP 122/78 06/06/25 10:31 Pulse Ox 96 06/06/25 10:31 Oxygen Delivery Method Room Air 06/06/25 10:31 BMI result Body Mass Index 27.2 Assessment & Plan Assessment & Plan (1) Agitation: Code(s): R45.1 - Restlessness and agitation Category: Medical Plan: Stable. Likely related to personality conflicts. Continue to monitor (2) Dementia: Code(s): F03.90 - Unspecified dementia, unspecified severity, without behavioral disturbance, psychotic disturbance, mood disturbance, and anxiety Category: Medical Plan: Stable. With mood disorder. Continue with carbamazepine, donepezil, quetiapine as prescribed. Trazodone at bed (3) Post-surgical hypothyroidism: Code(s): E89.0 - Postprocedural hypothyroidism Category: Medical Plan: Reviewed last endocrinology note. Continue increased dose of levothyroxine (250 g mcg daily). Repeat labs as ordered by endocrinology and follow-up as scheduled Plan Follow-up in the office in 4 months, labs to be completed prior to visit Orders: Orders Liver Panel 4 Months E89.0 - Postprocedural hypothyroidism, F01.50 - Vascular dementia, unspecified severity, without behavioral disturbance, psychotic disturbance, mood disturbance, and anxiety Basic Metabolic Panel 4 Months E89.0 - Postprocedural hypothyroidism, F01.50 - Vascular dementia, unspecified severity, without behavioral disturbance, psychotic disturbance, mood disturbance, and anxiety Lipid Panel 4 Months E89.0 - Postprocedural hypothyroidism, F01.50 - Vascular dementia, unspecified severity, without behavioral disturbance, psychotic disturbance, mood disturbance, and anxiety TSH reflex Free T4 4 Months E89.0 - Postprocedural hypothyroidism, F01.50 - Vascular dementia, unspecified severity, without behavioral disturbance, psychotic disturbance, mood disturbance, and anxiety Coding Level of Care Code Est Pt Level 4 (74118) Complex EM visit Add On G2211 Diagnoses Agitation R45.1 Dementia F03.90 Post-surgical hypothyroidism E89.0
[2025-06-06 10:31] VITALS: BP 122/78; PULSE 77; RESP 16; TEMP 37.4; O2SAT 96; BMI 27.2
--- OUTSIDE RECORDS SUMMARY | 2025-06-06 11:26 | XMS_ITS | Clinical Summary ---
Author Organization [facility] Address [address] [place] [address] Phone Care Team Providers Care Laborer Salvage Name Role Phone Sher Patrick MD Primary Care Provider [phone] Allergies Active Allergy Reactions Criticality Noted Date [...] topic Insurance Medicare Medicaid [place] Care Teams Laborer Salvage Relationship Specialty Start Date End Date Sher Patrick MD [address] [place] [address] [id number] [place] PCP - General Internal Medicine 09/17/24
--- OUTSIDE RECORDS SUMMARY | 2025-06-06 11:26 | XMS_ITS | Encounter Summary ---
Author Organization [facility] Address [address] [place] [address] Care Team Providers Care Radiotelegraph Operator Servicer Name Role Phone Sher Patrick Primary Care Provider [phone] Reason for Visit * Reason Onset Date Comments Needs to reschedule 09/28/2020 Encounter Details Date Type Department Care Team (Late st Contact Info) Description 09/28/2020 Telephone [facility] Central Scheduling Department [address] [place] [address] Telephone Intake, Staff Needs to reschedule Social [...] EDT - 06/09/2025 8:20 AM EDT Surgery [facility] Operating Room [address] [place] [address] Catracho Vidal MD MPH [address] [place] [address] Colonoscopy Screening, High Risk with Possible Moderate Sedation [81775 (CPT )] Scheduled Procedures Name Priority Associated [...] documented as of this encounter Care Teams Radiotelegraph Operator Servicer Relationship Specialty Start Date End Date Sher Patrick [address] [place] [address] [place] [address] PCP - General 04/20/17 documented as of this encounter
--- OUTSIDE RECORDS SUMMARY | 2025-06-06 11:26 | XMS_ITS | Patient Health Record ---
Author Organization [facility] Address [address] [place] [address] Care Team Providers Care Licensing Manager Name Role Phone Celina (RETIRED) Sher LORENZ Primary Care Provide r Unavailable Harvinder Simmons Unavailable [phone] Reason For Referral No Information Medications Medication [...] EVERY DAY Oral for 30 Active Nystatin 798426 UNIT/GM APPLY DIRECTE D TO SKIN TWICE [...] Problem Status W/U Status Risk Notes Problem 440900103 Encounter for screening for malignant neoplasm of colon (Z12.11) Active confirmed Problem 257231502 History of adenomatous polyp of colon (Z86.010) Active confirmed Problem 301343283 History of colon cancer (Z85.038) Active confirmed Problem 84447340 Rectal bleed (K62.5) Active confirmed Problem 411841459 History of rectal cancer (Z85.048) Active confirmed Plan Of Treatment Future Test Test Name Order Date FLEXIBLE SIGMOIDOSCOPY, DIAGNOSTIC 06/23 COLONOSCOPY 04/23/2019 Insurance Providers Payer Name Payer Address Payer Phone Subscriber Number Group Number Insured Name Patient Relationship to Insured Coverage Start Date Coverage End Date MEDICARE OF [place] [address] [place] [address] [id number] STEPHAN YUDELKA Self - patient is the insured MEDICAID OF [facility] [address] [place] [address] [id number] STEPHANVIKYHA Self - patient is the insured Medical (General) History Medical History History ICD Code colon and rectal cancer-in 2000 she was found to have 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 Reyes, and subsequently with chemotherapy and radiation therapy by Dr. Luis. colon polyps asthma depression anxiety component of mental retardation she denies any history of OR, diabetes, stroke, nor kidney disease urinary incontinence Recurrence of adenomatous ti ssue at the rectal anastomosis in 2011--resected partially by Dr. Bashir, and then sent to [facility] in [place] for a second opiinion. The remainder was removed endoscopically at [facility] in 2011 and shown to be a tubulovillous adenoma. A colonoscopy in 07/2013 at [facility] is described as negative. Surgical History Surgery Date(Month/Year) colon and rectal cancer as above ear surgery tubal ligation hernia repair knee replacement bilateral
--- OUTSIDE RECORDS SUMMARY | 2025-06-06 11:27 | XMS_ITS | Encounter Summary ---
Author Organization [facility] Address [address] [place] [address] Care Team Providers Care Pediatric Audiologist Name Role Phone Sher Patrick Primary Care Provider [phone] Encounter Details Date Type Department Care Team (Latest Contact Info) Description 06/06/2025 Hospital Encounter Catracho Vidal MD MPH [address] [place] [address] Social History Tobacco Use Types Packs/Day Years Used Date Smoking Tobacco: Never Smokeless Tobacco: Never Alcohol Use Standard Drinks/Week Comments Never 0 (1 standard drink = 0.6 oz pur e alcohol) [facility] Utilities Answer Date Recorded In the [...] on file documented as of this encounter Plan of Treatment Upcoming Encounters Date Type Department Care Team (Late st Contact Info) Description 06/09/2025 7:15 AM EDT - 06/09/2025 8:20 AM EDT Surgery [facility] Operating Room [address] [place] [address] Catracho Vidal MD MPH [address] [place] [address] Colonoscopy Screening, High Risk with Possible Moderate Sedation [05401 (CPT )] Scheduled Procedures Name Priority Associated Diagnoses Date/Ti me COLONOSCOPY SCREENING, HIGH RISK WITH POSSIBLE MODERATE SEDATION Colorectal cancer (HCC) 06/09/2025 7:15 AM EDT documented as of this encounter Visit Diagnoses Not on filedocumented in this encounter Additional Health Concerns Active Problems Noted Date Diagnosed Date Autogenerated Problem 04/24/2025 Infection Onset Date Last Indicated Resolved Time Multidrug resistant organism s ESBL Comment:ESBL E.coli 08/03/2020 08/03/2020 documented as of this encounter Care Teams Pediatric Audiologist Relationship Specialty Start Date End Date Sher Patrick [address] [place] [address] [place] [address] PCP - General 04/20/17 documented as of this encounter
--- OUTSIDE RECORDS SUMMARY | 2025-06-06 11:27 | XMS_ITS | Clinical Summary ---
Author Organization [facility] Address [address] [place] [address] Care Team Providers Care Talent Sourcing Specialist Name Role Phone Sher Patrick Primary Care Provider [phone] Allergies Active Allergy Reactions Criticality Noted Date Comments House Dust Wheezing Low 08/19/2019 Latex Rash 12/09/2020 Mite Extract Other (see comments) Low 08/18/2019 [place] Pollen Unknown 05/29/2025 Medications carBAMazepine (TEGretol) 200 mg tablet Take by mouth every 12 hours. 200mg qAM / 400mg qhs 0 06/27/20 19 Active aspirin 81 mg EC tablet Take 81 mg by mouth daily. 6 05/16/20 19 Active loratadine (CLARITIN) 10 mg tablet Take 10 mg by mouth daily. 5 08/06/20 19 Active multivitamin capsule Take 1 capsule by mouth once a day. Active guaiFENesin (ROBITUSSIN) 100 mg/5 mL syrup Take 200 mg by mouth 4 times a day as needed for cough. Active melatonin 3 mg tablet Take 9 mg by mouth nightly. Active ascorbic acid 500 mg tablet Take 500 mg by mouth 2 times a day. 10/09/19 25 Active betamethasone dipropionate 0.05 % ointment Apply 1 application. topically to the affected area 2 times a day as needed for rash. Apply to affected dry areas on hands twice daily as needed; Once started, apply for 2 week on, 1 week off 10/14/19 25 Active Colace 100 mg capsule Take 100 mg by mouth 2 times a day. 10/12/19 24 Active donepeziL (ARICEPT) 5 mg tablet Take 5 mg by mouth nightly. 09/23/20 24 Active ferrous sulfate 325 mg (65 mg iron) EC tablet Take 325 mg by mouth. 325mg by mouth Mon-Mon-Mon in AM 10/12/19 Active methenamine (HIPREX) 1 gram tablet See Instructions, TAKE 1 TABLET BY MOUTH TWICE DAILY., # 90 capsule, 3 Refills, Maintenance, 06/28/24 10:07:00 EDT, [facility], 154, cm, 11/02/23 15:00:00 EST, Height, 57.6, kg, 12/01/23 8:48:00 EST, Dry Weight 06/28/20 Active QUEtiapine (SEROquel) 50 mg tablet Take 200 mg by mouth 2 times a day. *see separate order for third (noontime) dose* Hold if oversedated Active traZODone (DESYREL) 100 mg tablet Take 100 mg by mouth nightly. Hold if oversedated Active tamsulosin (FLOMAX) 0.4 mg capsule Take 0.4 mg by mouth once a day. Active acetaminophen (TYLENOL) 500 mg tablet Take 1 tablet (500 mg total) by mouth every 4 hours as needed for pain. 11/04/19 25 Active Additional Information Patient taking differently:500 mg oral Every 4 hours PRN,pain, fever, Informant: Other Facility, Reported on 05/29/2025 senna 8.6 mg tablet Take 1 tablet by mouth every other day. Hold for diarrhea 04/23/20 25 Active zinc oxide/panthenol/ vitamin E (BALMEX ADULT CARE TOP) Apply 1 application. topically to the affected area 2 times a day. Groin and buttocks 10/12/19 24 Active menthol/camphor (ICY HOT ADVANCED TOP) Apply 1 application. topically to the affected area 2 (two) times a day. Back and shoulders 10/12/19 24 Active levothyroxine (SYNTHROID, LEVOTHROID) 125 mcg tablet Take 250 mcg by mouth daily. Active nystatin (MYCOSTATIN) 100,000 unit/gram powder Apply 1 application. topically to the affected area 2 times a day as needed (rash in skin folds (abdomen, breast)). Active fluticasone propionate (FLONASE) 50 mcg/actuation nasal spray Administer 1 spray into each nostril 2 times a day as needed (nasal congestion). Active QUEtiapine (SEROquel) 100 mg tablet Take 100 mg by mouth daily. *AT NOON* *see separate order for AM / PM dosing* Hold if oversedated Active diazePAM (Valium) 2 mg tablet Take 1 mg by mouth 2 times a day. Hold if oversedated Active memantine (NAMENDA) 5 mg tablet Take 5 mg by mouth at bed time. Active diazePAM (VALIUM) 2 mg tablet Take 2 mg by mouth daily as needed (agitation as manifested by yelling / screaming, crying, slamming walker, banging, pacing, self reporting, poor sleep, getting into other people's personal space). Active Gemtesa 75 mg tablet Take 75 mg by mouth once a day. 04/23/20 Active triamcinolone acetonide (KENALOG) 0.1% ointment Apply 1 Application topically to the affected area 2 times a day as needed for rash (lower abdomen, groin, buttocks). Once started, apply for 2 week on, 1 week off Active ibuprofen (MOTRIN) 400 mg tablet Take 400 mg by mouth every 6 hours as needed for pain. 04/08/20 21 2024 Discontinued INV [id number] triamcinolone acetoniden 0.1% topical ointment Apply topically to the affected area. Thin layer topically to the affected area twice daily as needed 06/15/20 23 2024 Discontinued Active Problems Problem Noted Date Diagnosed Date [...] bowel obstruction 09/17/2022 12/2 Preoperative clearance 08/03/202008/06 Encounters Date Type Department Care Team Description 06/06/2025 7:15 AM EDT Hospital Encounter [facility] Room [address] [place] [address] Catracho Vidal MD MPH Colorectal cancer (Primary Dx); Pre-op evaluation 06/06/2025 Hospital Encounter Catracho Vidal MD MPH 04/14/2025 Prep for Case [facility] Colorectal Surgery [address] [place] [address] Senior Recruitment Consultant: Catracho Scruggs MD MPH 04/09/2025 Documentation [facility] Colorectal Surgery [address] [place] [address] Senior Recruitment Consultant: Fanta Nava RN from Last 3 Months Immunizations Immunization Administration [...] drink = 0.6 oz pur e alcohol) [facility] Utilities Answer Date Recorded In the past 12 months has e [employer], gas, oil, or water [employer] threatened to shut off services in your [...] 62 11/04/2024 3:44 PM EST Temperature 36.2 C (97.2 F) 11/04/2024 3:44 PM EST Respiratory Rate 16 11/04/2024 3:44 PM EST [...] EDT - 06/09/2025 8:20 AM EDT Surgery [facility] [address] [place] [address] Catracho Vidal MD MPH [address] [place] [place], [place] [id number] Colonoscopy Screening, High Risk with Possible Moderate Sedation [66770 (CPT )] Scheduled Procedures Name Priority Associated Diagnoses Date/Ti me COLONOSCOPY SCREENING, HIGH RISK WITH POSSIBLE MODERATE SEDATION Colorectal cancer (HCC) 06/09/2025 7:15 AM EDT Health Maintenance Due Date Last Done Comments Hepatitis C Screening 1955 Medicare AWV 1956 Pneumococcal Vaccine: 50+ Years (1 of 2 - PCV) 1973 Zoster Vaccines (1 of 2) 1973 Mammogram 1994 Osteoporosis Screening 2004 RSV Vaccine (60+ years old and patients) (1 - Risk 60-74 years 1-dose series) 2014 DTaP,Tdap,and Td Vaccines (1 - Tdap) 08/18/2015 08/17/2015 Colonoscopy 07/02/2024 04/01/2024, 09/01, 03/20/2023, Additional history exists Alcohol/Substance Use Screening 10/02/2024 Depression Screening and Follow-Up 10/02/2024 Health Care Proxy Review 10/02/2024 Social Drivers of Health Annual Screening 10/02/2024 COVID-19 Vaccine ( season) 2025 04/18/2024, 12/02/2020, 11/04/2020 Influenza Vaccine (#1) 2025 07/05/2021 Hepatitis B Vaccines Aged Out No long er eligible based on patient's age to complete this topic Procedures * Due to [employer] law, this organization might not be sharing negative HIV tests. Procedure Name Priority Date/Time Associated Diagnosis Comments COLONOSCOPY 08/05/2020 from Last 3 Months or Most Recently Relevant to Health Maintenance Results * Due to [place] [employer] law, this organization might not be sharing negative HIV tests. * COLONOSCOPY (08/05/2020) Narrative Procedure Note Catracho Vidal MD MPH - 08/05/2020 7:31 AM EST Gastroenterology Patient Name: Kirsten Ronquillo Procedure Date: 08/05/2020 7:31 AM Date of : 1955 Admit Type: Inpatient Age: 64 Room: [place] [address] Gender: Female Note Status: Finalized Attending MD: [...] and oxygen saturations were monitored continuously. 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
== END 2025-06-06 11:27 | disposition home or self-care (01) ==
LOC: HO.HMCHD 10:24
PROVIDERS: PCP Internal Medicine; Visit Provider Physician Assistant
DX: R45.1 Restlessness and agitation (principal); F03.90 Unspecified dementia, unspecified severity, without behavioral disturbance, psychotic disturbance, mood disturbance, and anxiety; E89.0 Postprocedural hypothyroidism

== ENCOUNTER → 2025-06-06 10:23 | Outpatient (BNVA) | payer MEDICARE, MEDICAID, SELFPAY | PROVIDERS: PCP Internal Medicine; Visit Provider Physician Assistant | DX: R45.1 Restlessness and agitation (principal); F01.53 Vascular dementia, unspecified severity, with mood disturbance; E89.0 Postprocedural hypothyroidism; R32 Unspecified urinary incontinence; Z87.440 Personal history of urinary (tract) infections; Z79.899 Other long term (current) drug therapy | CPT/HCPCS: 99212 ==

== ENCOUNTER 2025-06-08 13:18 | Emergency (ER) | payer MEDICARE, MEDICAID, SELFPAY ==
--- OUTSIDE RECORDS SUMMARY | 2025-06-06 07:15 | XMS_ITS | Encounter Summary ---
Author Organization [facility] Address [address] [place] [address] Care Team Providers Care Senior Health Educator Name Role Phone Sher Patrick Primary Care Provider [phone] Reason for Visit * Auth/Cert (Routine) Specialty Diagnoses / Procedures Referred By Gini t Referred To Contact Diagnoses Colorectal cancer (HCC) Recurrent anastomotic polyp Procedures MN COLONOSCOPY FLX DX W/COLLJ SPEC WHEN PFRMD Colonoscopy Screening, High Risk with Possible Moderate Sedation Referral ID Status Reason Start Date Expiration Date Visits Re quested Visits Authorized [id number] [phone] Encounter Details Date Type Department Care Team (Latest Contact Info) Description 06/06/2025 7:15 AM EDT Hospital Encounter [facility] Operating Room [address] [phone] Catracho Vidal MD MPH [address], [place] [phone] Colorectal cancer (Primary Dx); Pre-op evaluation Social History Tobacco Use Types Packs/Day Years Used Date Smoking Tobacco: Never Smokeless Tobacco: Never Alcohol Use Standard Drinks/Week Comments Never 0 (1 standard drink = 0.6 oz pur e alcohol) [facility] Utilities Answer Date Recorded In [...] on file documented as of this encounter H&P Notes * PAYTON Mujica - 06/03/2025 9:41 AM EDT PREOPERATIVE HISTORY AND PHYSICAL *Facility Screening* Pre-Surgical Evaluation Telephone History Physical exam to be performed day of surgery (see completed physical exam at the bottom of this note) The patient was identified using 2 identifiers (Name and ). Procedure Summary Date: 06/09/2025 [place] / [place] [facility] [place] Procedure(s): Colonoscopy Screening, High Risk with Possible Moderate Sedation Pre-Op Diagnosis Codes: * Colorectal cancer (HCC) [C19] Surgeon(s): Catracho Vidal MD MPH Laterality: N/A Anesthesia Type from Case: Monitor Anesthesia Care Chief Complaint: as relayed by new vehicle sales consultant -- hx colon cancer s/p LAR, s/p polyp removal, followed bycolonoscopies HISTORY OF PRESENT ILLNESS: 69 y.o. female with a past medical history as below including intellectual disability, anxiety, bipolar disorder, psychotic disorder, rheumatoid arthritis, hyperthyroid s/p total thyroidectomy, pituitary adenoma, asthma, remote DVT on ASA 81mg, and colorectal cancer s/p LAR in 2000. She has had multiple recurrent polyps at her anastomosis. Underwent transanal endoscopic microsurgery and excision of recurrent anastomotic polyp with Dr. Vidal on 11/04/24. Operative findings included Recurrent benign-appearing polyp at the site of the previous colorectal anastomosis.There is a central scar present which was unable to be excised but at least was partially biopsied with the polypectomy. Rectal polyp pathology consistent with traditional serrated adenoma. Now scheduled for repeat colonoscopy (6-months); to be pre-admitted for bowel prep. At this time, other than the above, there are no other known complaints or concerns. Patient / facility now contacted for preanesthesia evaluation prior to Colonoscopy Screening, High Risk with Possible Moderate Sedation with Catracho Vidal MD MPH. Pre-operative history is obtained by chart review of [facility] medical record and information received from patient's facility. Prison (p) Bertha / (f) or [phone] Past Medical History: Diagnosis Date Anxiety worsening anxiety recently, increase psychosis at night, really only sleeping 1- 2 hrs at night (??unknown when written) Arthritis Asthma (HCC) never intubated or hospitalized. no longer uses inhaler Bipolar disorder with depression (HCC) 12/24/2020 Cataract 12/24/2020 Chronic diarrhea increased diarrhea, incontinent, over the last 1 week (??unknown when written) Class 3 severe obesity in adult (HCC) 12/22/2020 Colon cancer (HCC) 2002 Colon polyps 08/23/2019 Constipation 12/24/2020 Deep vein thrombosis (HCC) remote history, takes Aspirin 81 mg daily Depression Developmental delay Intellectual disability 12/22/2020 Mood disorder (HCC) 12/24/2020 Obesity Personal history of rectal cancer 12/22/2020 Pituitary adenoma (HCC) Presbyopia 12/24/2020 Psychotic disorder (HCC) 12/24/2020 Rectal mass 08/19/2019 Rectal polyp Rheumatoid arthritis (HCC) 12/24/2020 S/P colonoscopy with polypectomy 08/03/2020 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 Urinary incontinence Urinary retention 12/24/2020 Vascular dementia (HCC) Venous stasis Past Surgical History: Procedure Laterality Date CARPAL TUNNEL RELEASE Right 07/2024 COLECTOMY Rectal cancer HERNIA REPAIR MN COLONOSCOPY FLX DX W/COLLJ SPEC WHEN PFRMD N/A 08/05/2020 Procedure: COLONOSCOPY, DIAGNOSTIC, WITH POSSIBLE MODERATE SEDATION; Surgeon: Catracho Vidal MD MPH; Location: [facility]; Service: Colorectal MN COLONOSCOPY FLX DX W/COLLJ SPEC WHEN PFRMD N/A 12/23/2020 Procedure: COLONOSCOPY, DIAGNOSTIC, WITH POSSIBLE MODERATE SEDATION; Surgeon: Catracho Vidal MD MPH; Location: [facility]; Service: Colorectal MN COLONOSCOPY FLX DX W/COLLJ SPEC WHEN PFRMD N/A 07/05/2021 Procedure: COLONOSCOPY, DIAGNOSTIC, POLYPECTOMY WITH MODERATE SEDATION ; Surgeon: Catracho Vidal MD MPH; Location: [facility]; Service: Colorectal MN COLONOSCOPY FLX DX W/COLLJ SPEC WHEN PFRMD N/A 03/20/2023 Procedure: DIAGNOSTIC FLEXIBLE COLONOSCOPY PROXIMAL TO SPLENIC FLEXURE WITH COLLECTION OF SPECIMEN BY WASHING AND COLON DECOMPRESSION; Surgeon: Catracho Vidal MD MPH; Location: [facility]; Service: Colorectal MN COLONOSCOPY FLX DX W/COLLJ SPEC WHEN PFRMD N/A 09/19/2023 Procedure: DIAGNOSTIC FLEXIBLE COLONOSCOPY PROXIMAL TO SPLENIC FLEXURE WITH COLLECTION OF SPECIMEN BY WASHING AND COLON DECOMPRESSION; Surgeon: Catracho Vidal MD MPH; [place] [facility] [place]; Service: Colorectal MN COLONOSCOPY FLX DX W/COLLJ SPEC WHEN PFRMD N/A 04/01/2024 Procedure: COLONOSCOPY SCREENING, LOW RISK WITH POSSIBLE MODERATE SEDATION; Surgeon: Catracho Vidal MD MPH; Location: [facility]; Service: Colorectal MN COLONOSCOPY W/BIOPSY SINGLE/MULTIPLE Left 08/22/2019 Procedure: COLONOSCOPY W/ BIOPSY, SINGLE OR MULTIPLE WITH POSSIBLE MODERATE SEDATION; Surgeon: Catracho Vidal MD MPH; [place] [facility] [place]; Service: Colorectal MN COLSC FLX W/RMVL OF TUMOR POLYP LESION SNARE TQ Left 08/05/2020 Procedure: COLONOSCOPY, FLEXIBLE; WITH REMOVAL OF TUMOR(S), POLYP(S), OR OTHER LESION(S) BY SNARE TECHNIQUE AND POSSIBLE MODERATE SEDATION; Surgeon: Catracho Vidal MD MPH; [place] [facility]; Service: Colorectal MN EXCIS CHALAZION,GEN ANESTHESIA N/A 11/04/2024 Procedure: TRANSANAL ENDOSCOPIC MICROSURGERY, possible TAMIS. with air seal; Surgeon: Catracho Vidal MD MPH; Location: [facility]; Service: Colorectal MN SGMDSC FLX W/DCMPRN W/PLMT DCMPRN TUBE N/A 09/19/2022 Procedure: FLEXIBLE SIGMOIDOSCOPY, WITH snare polypectomy; Surgeon: Catracho Vidal MD MPH; Location: [facility]; Service: Colorectal TOTAL THYROIDECTOMY 10/2023 Current Medications as of 06/03/2025 acetaminophen (TYLENOL) 500 mg tablet Take 1 tablet (500 mg total) by mouth every 4 hours as neededfor pain. Patient taking differently: Take 500 mg by mouth every 4 hours as needed for pain or fever. ascorbic acid 500 mg tablet Take 500 mg by mouth 2 times a day. aspirin 81 mg EC tablet Take 81 mg by mouth daily. betamethasone dipropionate 0.05 % ointment Apply 1 application. topically to the affected area 2 times a day as needed for rash. Apply to affected dry areas on hands twice daily as needed; Once started, apply for 2 week on, 1 week off carBAMazepine (TEGretol) 200 mg tablet Take by mouth every 12 hours. 200mg qAM / 400mg qhs Colace 100 mg capsule Take 100 mg by mouth 2 times a day. diazePAM (Valium) 2 mg tablet Take 1 mg by mouth 2 times a day. Hold if oversedated diazePAM (VALIUM) 2 mg tablet Take 2 mg by mouth daily as needed (agitation as manifested by yelling / screaming, crying, slamming walker, banging, pacing, self reporting, poor sleep, getting into other people's personal space). donepeziL (ARICEPT) 5 mg tablet Take 5 mg by mouth nightly. ferrous sulfate 325 mg (65 mg iron) EC tablet Take 325 mg by mouth. 325mg by mouth Mon-Mon-Mon in AM fluticasone propionate (FLONASE) 50 mcg/actuation nasal spray Administer 1 spray into each nostril 2 times a day as needed (nasal congestion). Gemtesa 75 mg tablet Take 75 mg by mouth once a day. guaiFENesin (ROBITUSSIN) 100 mg/5 mL syrup Take 200 mg by mouth 4 times a day as needed for cough. levothyroxine (SYNTHROID, LEVOTHROID) 125 mcg tablet Take 250 mcg by mouth daily. loratadine (CLARITIN) 10 mg tablet Take 10 mg by mouth daily. melatonin 3 mg tablet Take 9 mg by mouth nightly. memantine (NAMENDA) 5 mg tablet Take 5 mg by mouth at bed time. menthol/camphor (ICY HOT ADVANCED TOP) Apply 1 application. topically to the affected area 2 (two) times a day. Back and shoulders methenamine (HIPREX) 1 gram tablet See Instructions, TAKE 1 TABLET BY MOUTH TWICE DAILY., # 90 capsule, 3 Refills, Maintenance, 06/28/24 10:07:[facility], 154, cm, 11/02/23 15:00:00 EST, Height, 57.6, kg, 12/01/23 8:48:00 EST, Dry Weight multivitamin capsule Take 1 capsule by mouth once a day. nystatin (MYCOSTATIN) 100,000 unit/gram powder Apply 1 application. topically to the affected area 2 times a day as needed (rash in skin folds (abdomen, breast)). QUEtiapine (SEROquel) 100 mg tablet Take 100 mg by mouth daily. *AT NOON* *see separate order for AM / PM dosing* Hold if oversedated QUEtiapine (SEROquel) 50 mg tablet Take 200 mg by mouth 2 times a day. *see separate order for third (noontime) dose* Hold if oversedated senna 8.6 mg tablet Take 1 tablet by mouth every other day. Hold for diarrhea tamsulosin (FLOMAX) 0.4 mg capsule Take 0.4 mg by mouth once a day. traZODone (DESYREL) 100 mg tablet Take 100 mg by mouth nightly. Hold if oversedated triamcinolone acetonide (KENALOG) 0.1% ointment Apply 1 Application topically to the affected area 2 times a day as needed for rash (lower abdomen, groin, buttocks). Once started, apply for 2 week on, 1 week off zinc oxide/panthenol/vitamin E (BALMEX ADULT CARE TOP) Apply 1 application. topically to the affected area 2 times a day. Groin and buttocks Aspirin: 81mg daily Other antiplatelet: no NSAIDs: no Anticoagulants: no Allergies Allergen Reactions Latex Rash [place] Pollen Unknown Dust [House Dust] Wheezing Mite Extract Other (see comments) Denies allergy to iodine, or shellfish. +LATEX Social History Tobacco Use Smoking status: Never Smokeless tobacco: Never Substance Use Topics Alcohol use: Never Family History Problem Relation Age of Onset No Known Problems Mother No Known Problems Father Diabetes Brother ROS: obtained by chart review, facility documentation / information Constitutional: Negative for fever, chills, or weight loss. HEENT: Negative for vision change, nasal congestion, dysphagia, sore throat, or vocal change. +regular diet, thin liquids; wears eyeglasses Respiratory: Negative for shortness of breath, wheezing, or cough. Cardiovascular: Negative for chest pain, palpitations, or pacemaker / defibrillator. +leg swelling,chronic; venous stasis Gastrointestinal: Negative for abdominal pain, heartburn, nausea, vomiting, diarrhea, melena, or hematochezia. +constipation Genitourinary: Negative for dysuria, frequency, urgency, hematuria, or flank pain. +incontinent; recurrent UTIs Skin: Negative for rash or wound. Musculoskeletal: Negative for arthralgias, or joint swelling. +back pain Neurological: Negative for headache, syncope, weakness, dizziness, or paresthesias. Heme: Negative for hx of easy bruising, or bleeding disorders. +remote hx DVT on daily ASA 81mg Psych: +agitated, combative, confused; memory loss Last weight: 61.5 kg (October 2024) VITALS: To be done AM of procedure PHYSICAL EXAM: To be done AM of procedure LABS: Pertinent lab results include: Lab Results Component Value Date WBC 7.8 08/26/2024 HGB 13.2 08/26/2024 HCT 40.1 08/26/2024 MCV 88.3 08/26/2024 PLT 215 08/26/2024 Lab Results Component Value Date GLUCOSE 94 11/03/2024 CALCIUM 8.7 11/03/2024 NA 138 11/03/2024 K 3.9 11/03/2024 CO2 24 11/03/2024 CL 104 11/03/2024 BUN 13 11/03/2024 CREATININE 0.70 11/03/2024 Lab Results Component Value Date INR 1.0 (L) 09/17/2022 INR 1.0 (L) 12/21/2020 INR 0.9 (L) 08/19/2019 IMAGING / OTHER STUDIES: Pertinent results include: Cardiac Diagnostics Recent EKGs ECG 12 lead Exam End: 08/12/2012 8:12 PM (Final result) Impression: NORMAL SINUS RHYTHM LEFT AXIS DEVIATION LEFT VENTRICULAR HYPERTROPHY WITH QRS WIDENING ABNORMAL ECG NO PREVIOUS ECGS AVAILABLE Other Imaging N/A CONSULTS: Pertinent consults include: Cardiology No known Pulmonology No known ANESTHESIA CONSIDERATIONS Per Anesthesia Preprocedure Evaluation 08/22/24: Airway Mallampati: III TM distance: >3 FB Neck ROM: full Mouth Opening: good - Personal problem with anesthesia: no known per above eval - Family history of anesthesia problems: unknown - Dental implants / dentures: none - Teeth missing, broken, loose, infected: edentulous - Hardware / implants: ?knee replacements; ?hernia mesh - Activity: ambulatory, rolling walker, cane - STOP-BANG: unknown / unable to review with patient - Blood Products: patient / HCP / guardian has previously consented for blood products within Anesthesia Consent (11/04/24) - History of blood product transfusion in the past 3 months: no known (per [facility] records) VISIT DIAGNOSIS: 1. Colorectal cancer 2. Pre-op evaluation PSE ORDERS: No orders of the defined types were placed in this encounter. Assessment & Plan: 69 y.o. female now pre-op for Colonoscopy Screening, High Risk with PossibleModerate Sedation on 06/09/2025. Kirsten Ronquillo was facility screened for the above procedure. This form serves as the history portion of the patient's H&P. On the day of surgery the patient will be evaluated by anesthesia and their surgeon, vital signs will be obtained in [facility] and a physical exam will be performed by a pre-testing BUSINESS OFFICE REPRESENTATIVE / PA or the surgeon / designee. The physical exam portion of the H&P will be documentedas an Addendum to this note, or less commonly as a separate Brief Progress Note. 1. Physical exam and Anesthesia evaluation day of procedure. Anesthesia consent to be done by inpatient team once admitted for surgery. Guardian / Proxy: Isi Thompson [phone] HCP / Incapacity documentation in EPIC. 2. Labs: As per admitting team 3. EKG: As per admitting team 4. DOS Labs: As per admitting team 5. Pre-op instructions reviewed and faxed to facility. Receipt confirmed by Bertha advising to stop iron supplementation and multivitamins x7 days prior to the procedure. 6. Anticoagulation / Antiplatelet / Aspirin Plan: N/A 7. Cardiac: Kiln Fireman: no known 8. Pulmonary: Reading Assistant: no known 9. Pending Items: to be pre-admitted for bowel prep, consent; pre-op work-up as per admitting team Patient will be evaluated by Anesthesia and their surgeon on the day of surgery. Chantale Babb PA-C PreSurgical Evaluation Department of Anesthesiology [facility] THE ABOVE DOCUMENT SERVES THE TELEPHONE HISTORY PORTION OF THE PRE-OP H&P FOR THIS PATIENT'SUPCOMING SURGERY PHYSICAL EXAMINATION AND VITAL SIGNS TO BE PERFORMED ON THE MORNING OF SURGERY documented in this encounter Miscellaneous Notes * Pre-Procedure Instructions - PAYTON Mujica - 05/29/2025 1:41 PM EDT PSE PRE-OPERATIVE / PRE-PROCEDURAL PATIENT INSTRUCTIONS Name: Kirsten Ronquillo date / age: 12 1955 / 69 y.o. Pre-procedure Testing: Any outstanding testing is to be performed by the admitting / anesthesiology teams if indicated once Kirsten is admitted to the hospital. Please contact Dr. Vidal's office at for any questions regarding Kirsten's preadmission. Date of procedure: 06/09/2025 Procedure(s): Colonoscopy Screening, High Risk with Possible Moderate Sedation Surgeon(s): Catracho Vidal MD MPH Please send patient's medication list on the day of admission Include documentation of last doses of all medications given prior to admission ARRIVAL TIME: N/A as Kirsten will be pre-admitted to the [place] [address] Enter through the main lobby Walk straight back to the elevator bank Take Elevator E to the 2nd floor: Surgical Admissions FASTING: Specific BOWEL PREP and FASTING instructions to be arranged while inpatient in preparationfor procedure. PRE-PROCEDURE MEDICATION INSTRUCTIONS: PLEASE STOP IRON AND MULTIVITAMINS X7 DAYS PRIOR TO PROCEDURE. Resume all held medications after the procedure unless directed otherwise by your physician. ADDITIONAL INSTRUCTIONS: Shower with antibacterial soap (such as Dial) the night before surgery and again the morning of surgery. Do not wear powder, deodorant, fragrance, creams, or lotions. Remove fingernail cook islander or artificial nails. Do not wear makeup or contact lenses on the day of your procedure. Remove all body piercings and jewelry prior to arrival. Failure to do so could result in cancellation of your procedure. Wear comfortable, loose-fitting clothing. Wear sturdy shoes such as sneakers. Do not wear flip flops. Patients with facial hair are asked to shave prior to arrival for procedure unless they have alevism or cultural reasons not to. Do not bring any valuables or a purse / wallet with you to the hospital. Do not drink alcohol for 24 hours prior to procedure. Do not smoke or 'vape' tobacco / nicotine products 24-48 hours prior to procedure. Do not smoke / consume marijuana / THC for 72 hours before the procedure. It is OK to continue to take Tylenol right up to the day of your procedure. Do not take NSAIDs (Ibuprofen, Motrin, Aleve, Naproxen, Diclofenac etc.) for 7 days before procedure as these medications can thin the blood. Do not take vitamins or supplements 7 days prior to your procedure (unless otherwise noted). Please notify your surgeon / physician if you develop fever, cough, sore throat, diarrhea, vomiting, chest pain, or any changes to your health prior to your procedure. Please contact your surgeon with any questions about your procedure or recovery, or if you need to cancel or reschedule your procedure: Dr. Vidal Please bring a photo ID and your insurance card the day of procedure. If applicable: Patients on insulin / diabetes medications: It is very important to take these medications specifically as directed above. If applicable, please check your blood sugar 2 hours prior to arrival. You may drink apple juice if your blood sugar is low. We will check and manage your blood sugar upon yourarrival. Sleep apnea patients: Please bring your CPAP / BiPAP with you to the hospital. We may need to use it in the Recovery Room. FOR AMBULATORY PROCEDURE PATIENTS (being discharged on the day of procedure): You must have a responsible adult to drive you home AND stay with you for 24 hours. A taxi ride home is acceptable if you are accompanied by a responsible adult. A bus ride home is not permitted. documented in this encounter Plan of Treatment Upcoming Encounters Date Type Department Care Team (Latest Contact Info) Description 06/09/2025 7:15 AM EDT Anesthesia Event [facility] Operating Room [address] [place] [phone] [place] [address] [place] [address] 06/09/2025 7:15 AM EDT - 06/09/2025 8:20 AM EDT Surgery [facility] Operating Room [address] [place] [id number] Catracho Vidal MD MPH [address] [place] [phone] Colonoscopy Screening, High Risk with Possible Moderate Sedation [96504 (CPT )] Scheduled Procedures Name Priority Associated Diagnoses Date/Ti me COLONOSCOPY SCREENING, HIGH RISK WITH POSSIBLE MODERATE SEDATION Colorectal cancer (HCC) 06/09/2025 7:15 AM EDT documented as of this encounter Visit Diagnoses Diagnosis Colorectal cancer (HCC)- Primary Malignant neoplasm of colon, unspecified site Pre-op evaluation Colorectal cancer (HCC) Malignant neoplasm of colon, unspecified site documented in this encounter Additional Health Concerns Infection Onset Date Last Indicated Resolved Time Multidrug resistant organism s ESBL Comment:ESBL E.coli 08/03/2020 08/03/2020 documented as of this encounter Care Teams Senior Health Educator Relationship Specialty Start Date End Date Sher Patrick [address] [place] [address] [place] [address] PCP - General 04/20/17 documented as of this encounter
--- OUTSIDE RECORDS SUMMARY | 2025-06-06 17:36 | XMS_ITS | Encounter Summary ---
Author Organization [facility] Address [address] [place] [address] Care Team Providers Care Electrical Maintenance Technician Name Role Phone Sher Patrick Primary Care Provider Encounter Details Date Type Department Care Team (Latest Contact Info) Description 06/06/2025 5:36 PM EDT - 06/07/2025 1:21 PM EDT Hospital Encounter [facility] 3 [facility] [address] [id number] Catracho Vidal MD MPH [address] [place] [address] Discharge Disposition: Home or Self Care () Social History Tobacco Use Types Packs/Day Years Used Date Smoking Tobacco: Never Smokeless Tobacco: Never Alcohol Use Standard Drinks/Week Comments Never 0 (1 standard drink = 0.6 oz pur e alcohol) [facility] Utilities Answer Date Recorded In the past 12 months has [employer], gas, oil, or water [place] threatened to shut off services in your [...] Sign Reading Time Taken Comments Blood Pressure 142/76 06/07/2025 9:10 AM EDT Pulse 67 06/07/2025 9:10 AM EDT Temperature 36.9 C (98.4 F) 06/07/2025 9:10 AM EDT Respiratory Rate 18 06/07/2025 9:10 AM EDT Oxygen Saturation 99% 06/07/2025 9:10 AM EDT Inhaled Oxygen Concentration - - Weight - - Height - - Body Mass Index - - documented in this encounter Discharge Instructions * Discharge Instructions* Tato Ling MD - 06/07/2025 12:01 PM EDT COLORECTAL SURGERY - General Discharge Instructions: Follow up: You will be seen in the next few days to confirm that your colonoscopy is scheduled. Please be on the look out for the scheduling of your colonoscopy. Concerns: If you are experiencing fevers, persistent nausea, vomiting, increasing pain, or if you have any other questions or concerns, please call the Colorectal Surgery office at . * Discharge Instr - Diet* Sukhi Painter MD - 06/07/2025 12:19 PM EDT Regular Diet documented in this encounter Medications at Time of Discharge acetaminophen (TYLENOL) 500 mg tablet Take 1 tablet (500 mg total) by mouth every 4 hours as needed for pain. 11/04/2024 ascorbic acid 500 mg tablet Take 500 mg by mouth 2 times a day. 10/09/2024 aspirin 81 mg EC tablet Take 81 mg by mouth daily. 6 05/16/2019 betamethasone dipropionate 0.05 % ointment Apply 1 application. topically to the affected area 2 times a day as needed for rash. Apply to affected dry areas on hands twice daily as needed; Once started, apply for 2 week on, 1 week off 10/14/2024 carBAMazepine (TEGretol) 200 mg tablet Take by mouth every 12 hours. 200mg qAM / 400mg qhs 0 06/27/2019 Colace 100 mg capsule Take 100 mg by mouth 2 times a day. 10/12/2023 diazePAM (Valium) 2 mg tablet Take 1 mg by mouth 2 times a day. Hold if oversedated diazePAM (VALIUM) 2 mg tablet Take 2 mg by mouth daily as needed (agitation as manifested by yelling / screaming, crying, slamming walker, banging, pacing, self reporting, poor sleep, getting into other people's personal space). donepeziL (ARICEPT) 5 mg tablet Take 5 mg by mouth nightly. 2024 ferrous sulfate 325 mg (65 mg iron) EC tablet Take 325 mg by mouth. 325mg by mouth Mon-Mon-Mon in AM 10/12/2023 fluticasone propionate (FLONASE) 50 mcg/actuation nasal spray Administer 1 spray into each nostril 2 times a day as needed (nasal congestion). Gemtesa 75 mg tablet Take 75 mg by mouth once a day. 04/23/2025 guaiFENesin (ROBITUSSIN) 100 mg/5 mL syrup Take 200 mg by mouth 4 times a day as needed for cough. levothyroxine (SYNTHROID, LEVOTHROID) 125 mcg tablet Take 250 mcg by mouth daily. loratadine (CLARITIN) 10 mg tablet Take 10 mg by mouth daily. 5 08/06/2019 melatonin 3 mg tablet Take 9 mg by mouth nightly. memantine (NAMENDA) 5 mg tablet Take 5 mg by mouth at bed time. menthol/camphor (ICY HOT ADVANCED TOP) Apply 1 application. topically to the affected area 2 (two) times a day. Back and shoulders 10/12/2023 methenamine (HIPREX) 1 gram tablet See Instructions, [...] mouth every other day. Hold for diarrhea 04/23/2025 tamsulosin (FLOMAX) 0.4 mg capsule Take 0.4 mg by mouth once a day. traZODone (DESYREL) 100 mg tablet Take 100 mg by mouth nightly. Hold if oversedated triamcinolone acetonide (KENALOG) 0.1% ointment Apply 1 Application topically to the affected area 2 times a day as needed for rash (lower abdomen, groin, buttocks). Once started, apply for 2 week on, 1 week off zinc oxide/panthenol/vi tamin E (BALMEX ADULT CARE TOP) Apply 1 application. topically to the affected area 2 times a day. Groin and buttocks 10/12/2023 documented as of this encounter Miscellaneous Notes * Plan of Care - Maureen Prajapati RN - 06/07/2025 12:59 PM EDT Pt agitated/yelling throughout shift, reoriented with decent effect. Sched meds given with minimal effect. MD changed diet to regular with good effect pt ate 100 % of breakfast. Per MD no colonoscopy/pt refused. Pt oob ambulated in room/to br, in stout, sat in chair pt tolerated well. Assist with walker. Pt voided. 1:1 for safety. Pt redirectable at times. Pt caregiver from prison arrived thisafternoon with good effect. MD order to dc home. MD notified to see caregiver for paperwork to be filled out by MD. Pt denied pain. No IV at time of dc home. Pt wearing belongings upon dc to prison. AVS given to caregiver for facility. POC discussed with pt/MD/caregiver. Comfort and safety maintained. PHR completed. * Hospital Course - Sukhi Painter MD - 06/07/2025 11:38 AM EDT Kirsten Ronquillo is a 69 years old female with a past medical history of intellectual disability, anxiety, bipolar disorder, psychotic disorder, rheumatoid arthritis, hyperthyroid s/p total thyroidectomy, pituitary adenoma, asthma, remote DVT on ASA 81mg, and colorectal cancer s/p LAR in 2000. Patient presented on 06/06 for a bowel preparation and surveillance colonoscopy. Patient was agitated and required medications as well as restraints overnight. Patient was non- compliant with her bowel regimen and refused it as well as did not want her colonoscopy. The risks of staying in the hospital and being non- compliant with the regimen outweighed the benefits of having her here for the surveillance colonoscopy which could be done outpatient. The patient was discharged on 06/07 and will follow up inthe outpatient clinic as required. * Plan of Care - Paty Andersen - 06/07/2025 11:31 AM EDT Case Management Admission Note: + Ip order in [employer]. Pt will discharge today. No medical intervention as pt is refusing bowel prep and meds. Inpatient medical necessity discussed with the treating provider DR Sukhi Painter and [facility] Beauchamp both are in agreement with change to outpatient. Patient has received the HAQ, Medicare pamphlet, ???Are You a Hospital Inpatient or Observation? - If you have Medicare - Ask?? . URS to follow up to apply Condition Code 44 to encounter. Paty Andersen RN Pertinent Clinical impacting hospitalization. PA / Level of Care Change, if applicable: 69 y.o. female with a past medical history of intellectual disability, anxiety, bipolar disorder, psychotic disorder, rheumatoid arthritis, hyperthyroid s/p total thyroidectomy, pituitary adenoma, asthma, and colorectal cancer s/p LAR in 2000. Patient presents today for a bowel prep and colonoscopyto be performed by Dr. Catracho Vidal. Procedure not performed due to pt uncooperative with meds. Lashing out at staff. On a to . Pt will be discharged back to her prison today. Patient Assessment: Met with pt and spoke to invoked HCP, Isi. Pt wishes to return to the prison [facility]. Isi olguin agreement with discharge back to the prison today. Code 44 discussed with Isi. In agreement. Took verbal consent for haq over the phone. Supports, HCP, Designated Caregiver, Guardian: Invoked HCP Isi Thompson. [phone] Initial Discharge Planning:Spoke to child care group leader Bertha. She is sending staff to pick pt up for discharge. Bertha's number is [phone]. Choice list (with star ratings) provided / discussed, if indicated (Y or NA):NA * Plan of Care - Leodan Sanford RN - 06/07/2025 5:35 AM EDT Plan of Care Summary: Patient alert and oriented x4. Verbally abusive to staff. Denies pain, chest pain, nausea and vomiting. On constant supervision for elopment. Voiding without issues. Refused allbowel meds. Plan for colonscopy. Plan of Care Reviewed With: patient Progress: no change * Plan of Care - Margie Ye RN - 06/07/2025 12:03 AM EDT Patient was a direct admit from a prison, she came in for a bowel prep for colonoscopy. Patientwas agitated and started yelling when the prison staff who was with her left. Staff tried to de- escalate the situation but was not successful, things get out of hand so campus police and MD was called to the floor. Patient was put on soft restraints and IM zyprexa 5mg x2 given with minimal effect. Patient later accepted her oral meds and was placed on 1:1 supervision for safety. She refused her bowel prep meds and peripheral IV. Plan of Care Reviewed With: patient Progress: no change documented in this encounter Plan of Treatment Upcoming Encounters Date Type Department Care Team (Latest Contact Info) Description 06/09/2025 7:15 AM EDT Anesthesia Event [facility] Operating Room [address] [place] [id number] [place]ylah [place] [address] [place] [address] 06/09/2025 7:15 AM EDT - 06/09/2025 8:20 AM EDT Surgery [facility] Operating Room [address] [place] [id number] Catracho Vidal MD MPH [address] [place] [id number] Colonoscopy Screening, High Risk with Possible Moderate Sedation [57498 (CPT )] Scheduled Procedures Name Priority Associated Diagnoses Date/Ti me COLONOSCOPY SCREENING, HIGH RISK WITH POSSIBLE MODERATE SEDATION Colorectal cancer (HCC) 06/09/2025 7:15 AM EDT documented as of this encounter Procedures * Due to [place] state law, this organization might not be sharing negative HIV tests. Procedure Name Priority Date/Time Associated Diagnosis Comments ECG 12-LEAD STAT 06/06/2025 7:47 PM EDT HEART & VASCULAR - SCANNED 06/06/2025 documented in this encounter Results * Due to [place] localbacon law, this organization might not be sharing negative HIV tests. * ECG 12 lead (06/06/2025 7:47 PM EDT) Ventricular Rate EKG 95 BPM MUSE EKG Atrial Rate 95 BPM MUSE EKG VA Interval 178 ms MUSE EKG QRS Interval 140 ms MUSE EKG QT Interval 398 ms MUSE EKG QTC Interval 500 ms MUSE EKG P [place] 38 degrees MUSE EKG R [place] -62 degrees MUSE EKG T Wave [place] 19 degrees MUSE EKG 06/06/2025 7:47 PM EDT 06/07/2025 2:09 PM EDT Impressions MUSE EKG - 06/07/2025 2:10 PM EDT SINUS RHYTHM RIGHT BUNDLE BRANCH BLOCK LEFT ANTERIOR FASCICULAR BLOCK BIFASCICULAR BLOCK VOLTAGE CRITERIA FOR LEFT VENTRICULAR HYPERTROPHY PROLONGED QTc ABNORMAL ECG Confirmed by Leodan Velez ([id number]) on 06/07/2025 2:09:58 PM Narrative Procedure Note Leodan Velez MD - 06/07/2025 IMPRESSION: SINUS RHYTHM RIGHT BUNDLE BRANCH BLOCK LEFT ANTERIOR FASCICULAR BLOCK BIFASCICULAR BLOCK VOLTAGE CRITERIA FOR LEFT VENTRICULAR HYPERTROPHY PROLONGED QTc ABNORMAL ECG Confirmed by Leodan Velez ([id number]) on 06/07/2025 2:09:58 PM us Catracho Vidal MD MPH ECG ORDERABLES Final Result MUSE EKG * HEART & VASCULAR - SCANNED (06/06/2025) Anatomical Region Laterality Modality Other us Onbase Scan Janet SCANNED PROCEDURES Final Resu lt documented in this encounter Visit Diagnoses Diagnosis Encounter for screening colonoscopy- Primary Colon polyp Benign neoplasm of colon Colorectal cancer (HCC) Malignant neoplasm of colon, unspecified site documented in this encounter Admitting Diagnoses Diagnosis Encounter for screening colonoscopy Colon polyp Benign neoplasm of colon documented in this encounter Administered Medications Inactive [...] (on the numeric pain scale), Starting on Mon06/06/25 at 1801, Until Mon06/07/25 at 1522, To be given in conjunction with other pain medications if ordered as part of multi-modal therapy. aspirin EC tablet 81 mg 81 mg, oral, Daily, First dose on Mon06/07/25 at 0600, Until Discontinued, Do not crush. Given 06/07/2025 5:29 AM EDT 81 mg carBAMazepine (TEGretol) tablet 200 mg 200 mg, oral, Daily, First dose on Mon06/06/25 at 1815, Until Discontinued, Hazardous Medication Reproductive Risk. Use PPE when handling. Given 06/07/2025 11:54 AM EDT 200 mg Given 06/06/2025 7:27 PM EDT 200 mg carBAMazepine (TEGretol) tablet 400 mg 400 mg, oral, Nightly, First dose on Mon06/06/25 at 2100, Until Discontinued, Hazardous Medication Reproductive Risk. Use PPE when handling. diazePAM (VALIUM) tablet 1 mg 1 mg, oral, 2 times daily, First dose on Mon06/06/25 at 1815, Until Discontinued Given 06/07/2025 7:59 AM EDT 1 mg Given 06/06/2025 7:27 PM EDT 1 mg diazePAM (VALIUM) tablet 2 mg 2 mg, oral, Daily PRN, agitation as manifested by yelling / screaming, crying, slamming walker, banging, pacing, self reporting, poor sleep, getting into other people's personal space, Starting on Mon06/06/25 at 1954, Until Mon06/07/25 at 1522 Given 06/07/2025 5:28 AM EDT 2 mg donepeziL (ARICEPT) tablet 5 mg 5 mg, oral, Nightly, First dose on Mon06/06/25 at 2100, Until Discontinued Given 06/06/2025 10:17 PM EDT 5 mg levothyroxine (SYNTHROID, LEVOTHROID) tablet 250 mcg 250 mcg, oral, Daily, First dose on Mon06/07/25 at 0600, Until Discontinued Given 06/07/2025 5:31 AM EDT 250 mcg melatonin tablet 9 mg 9 mg, oral, Nightly, First dose on Mon06/06/25 at 2100, Until Discontinued Given 06/06/2025 10:17 PM EDT 9 mg memantine (NAMENDA) tablet 5 mg 5 mg, oral, Nightly, First dose on Mon06/06/25 at 2100, Until Discontinued Given 06/06/2025 10:17 PM EDT 5 mg OLANZapine (ZyPREXA) injection 5 mg 5 mg, intramuscular, Once, On Mon06/06/25 at 1845, 1 dose, Reconstitute with 2.1 mL of Sterile Water for injection. Concentration = 5 mg/mL. For IV administration: may be given IV push at a rate of 5 mg/minute. Given 06/06/2025 6:56 PM EDT 5 mg Left Anterior Thigh OLANZapine (ZyPREXA) injection 5 mg 5 mg, intramuscular, Once, On Mon06/06/25 at 1900, 1 dose, Reconstitute with 2.1 mL of Sterile Water for injection. Concentration = 5 mg/mL. For IV administration: may be given IV push at a rate of 5 mg/minute. Given 06/06/2025 7:02 PM EDT 5 mg Right Anterior Thigh ondansetron (ZOFRAN) injection 4 mg 4 mg, intravenous, Every 8 hours PRN, nausea, vomiting, Starting on Mon06/06/25 at 1802, Until 06/07/25 at 1522 polyethylene glycol (NULYTELY) solution 4,000 mL 4,000 mL, oral, at 1,440 mL/hr, Daily, First dose on Mon06/06/25 at 1815, 3 doses, Last dose on Mon06/08/25 at 1000, Admission, Administer 240 mL every 10 minutes until 4 L are consumed or the rectal effluent is clear. If using a flavor packet provided, add the flavor packet contents to the existing powder in the provided container and shake well prior to adding water. Add lukewarm water (may use tap water) up to the 4 L water ja; shake vigorously several times to ensure dissolution of the powder. No additional ingredients or flavors should be added to the solution (other than the flavor packets provided). QUEtiapine (SEROquel) tablet 100 mg 100 mg, oral, Daily, First dose on Mon06/06/25 at 1200, Until Discontinued Given 06/07/2025 11:54 AM EDT 100 mg QUEtiapine (SEROquel) tablet 200 mg 200 mg, oral, 2 times daily, First dose on Mon06/06/25 at 1815, Until Discontinued Given 06/07/2025 7:59 AM EDT 200 mg Given 06/06/2025 7:25 PM EDT 200 mg sodium chloride 0.9% flush 2.5-10 mL 2.5-10 mL, intravenous, See admin instructions, Starting on Mon06/06/25 at 1800, Until 06/07/25 at 1522, Flush each lumen with a pulsatile motion with a minimum of 2.5 mL before and after use. Please note which lumen(s) have been flushed in comments section. sodium chloride 0.9% flush 2.5-10 mL 2.5-10 mL, intravenous, Every 12 hours scheduled, First dose on Mon06/06/25 at 2100, Until Discontinued, Flush each lumen with a pulsatile motion with a minimum of 2.5 mL every 12 hours. Please note which lumen(s) have been flushed in comments section. tamsulosin (FLOMAX) capsule 0.4 mg 0.4 mg, oral, Daily, First dose on Mon06/07/25 at 0900, Until Discontinued, Do not crush or chew. Capsule contents may be sprinkled in water for enteric tube administration. Given 06/07/2025 7:59 AM EDT 0.4 mg traZODone (DESYREL) tablet 100 mg 100 mg, oral, Nightly, First dose on Mon06/06/25 at 2100, Until Discontinued Given 06/06/2025 10:17 PM EDT 100 mg documented in this encounter Active and Recently Administered Medications Times are shown in EDT. Scheduled Medication Order 06/05/2025 06/06/2025 06/07/2025 aspirin EC tablet 81 mg 81 mg, oral, Daily, First dose on 06/07/25 at 0600, Until Discontinued, Do not crush. 0529 (Given - Provid er: Farzana Shahid RN) bisacodyL (DULCOLAX) EC tablet 20 mg 20 mg, oral, Once, On Mon06/06/25 at 2230, 1 dose, Do not crush. 2230 (Not Given - Provider: Leodan Sanford RN - Reason: Patient/family refused) carBAMazepine (TEGretol) tablet 200 mg(Linked Group 1) 200 mg, oral, Daily, First dose on Mon06/06/25 at 1815, Until Discontinued, Hazardous Medication Reproductive Risk. Use PPE when handling. 1926 (Given - Provider: Margie Ye RN) 115 (Given - Provider: Maureen Prajapati RN - Comment: given when pt agreeable to meds/cluster care) carBAMazepine (TEGretol) tablet 400 mg(Linked Group 1) 400 mg, oral, Nightly, First dose on Mon06/06/25 at 2100, Until Discontinued, Hazardous Medication Reproductive Risk. Use PPE when handling. 2338 (Not Given - Provider: Margie Ye RN - Reason: Patient/family refused) diazePAM (VALIUM) tablet 1 mg 1 mg, oral, 2 times daily, First dose on Mon06/06/25 at 1815, Until Discontinued 1926 (Given - Provider: Margie Ye RN) 075 (Given - Provider: Desiree Sampson RN) donepeziL (ARICEPT) tablet 5 mg 5 mg, oral, Nightly, First dose on Mon06/06/25 at 2100, Until Discontinued 2216 (Given - Provider: Margie Ye RN) levothyroxine (SYNTHROID, LEVOTHROID) tablet 250 mcg 250 mcg, oral, Daily, First dose on Mon06/07/25 at 0600, Until Discontinued 05 (Given - Provid er: Farzana Shahid RN) melatonin tablet 9 mg 9 mg, oral, Nightly, First dose on Mon06/06/25 at 2100, Until Discontinued 2216 (Given - Provider: Margie Ye RN) memantine (NAMENDA) tablet 5 mg 5 mg, oral, Nightly, First dose on Mon06/06/25 at 2100, Until Discontinued 2216 (Given - Provider: Margie Ye RN) OLANZapine (ZyPREXA) injection 5 mg (COMPLETED) 5 mg, intramuscular, Once, On Mon06/06/25 at 1845, 1 dose, Reconstitute with 2.1 mL of Sterile Water for injection. Concentration = 5 mg/mL. For IV administration: may be given IV push at a rate of 5 mg/minute. 1855 (Given - Provider: Margie Ye RN) OLANZapine (ZyPREXA) injection 5 mg (COMPLETED) 5 mg, intramuscular, Once, On Mon06/06/25 at 1900, 1 dose, Reconstitute with 2.1 mL of Sterile Water for injection. Concentration = 5 mg/mL. For IV administration: may be given IV push at a rate of 5 mg/minute. 1901 (Given - Provider: Margie Ye RN) OLANZapine (ZyPREXA) injection 5 mg 5 mg, intramuscular, Once, On Mon06/06/25 at 1915, 1 dose, Reconstitute with 2.1 mL of Sterile Water for injection. Concentration = 5 mg/mL. For IV administration: may be given IV push at a rate of 5 mg/minute. 1914 (Not Given - Provider: Margie Ye RN - Reason: See Provider Order) polyethylene glycol (NULYTELY) solution 4,000 mL 4,000 mL, oral, at 1,440 mL/hr, Daily, First dose on Mon06/06/25 at 1815, 3 doses, Last dose on Mon06/08/25 at 1000, Admission, Administer 240 mL every 10 minutes until 4 L are consumed or the rectal effluent is clear. If using a flavor packet provided, add the flavor packet contents to the existing powder in the provided container and shake well prior to adding water. Add lukewarm water (may use tap water) up to the 4 L water ja; shake vigorously several times to ensure dissolution of the powder. No additional ingredients or flavors should be added to the solution (other than the flavor packets provided). 1814 (Not Given - Provider: Margie Ye RN - Reason: Patient/family refused) 1000 (Not Given - Provider: Maureen Prajapati RN - Reason: Other - See Comment - Comment: ok to hold per MD, pt will dc home.) polyethylene glycol 3350 (MIRALAX) packet 238 g 238 g, oral, Once, On Mon06/06/25 at 2230, 1 dose, Mix all 14 packets with 64 oz of Gatorade or other clear fluid. Dissolve each 17 g packet in 4-8 ounces of water or juice prior to administration. 2230 (Not Given - Provider: Leodan Sanford RN - Reason: Patient/family refused) QUEtiapine (SEROquel) tablet 100 mg 100 mg, oral, Daily, First dose on Mon06/06/25 at 1200, Until Discontinued 1154 (Given - Provid er: Maureen Prajapati RN) QUEtiapine (SEROquel) tablet 200 mg 200 mg, oral, 2 times daily, First dose on Mon06/06/25 at 1815, Until Discontinued 192 (Given - Provider: Margie Ye RN) 075 (Given - Provider: Desiree Sampson RN) sodium chloride 0.9% flush 2.5-10 mL(Linked Group 2) 2.5-10 mL, intravenous, See admin instructions, Starting on Mon06/06/25 at 1800, Until Mon06/07/25 at 1522, Flush each lumen with a pulsatile motion with a minimum of 2.5 mL before and after use. Please note which lumen(s) have been flushed in comments section. sodium chloride 0.9% flush 2.5-10 mL(Linked Group 2) 2.5-10 mL, intravenous, Every 12 hours scheduled, First dose on Mon06/06/25 at 2100, Until Discontinued, Flush each lumen with a pulsatile motion with a minimum of 2.5 mL every 12 hours. Please note which lumen(s) have been flushed in comments section. 2217 (Not Given - Provider: Margie Ye RN - Reason: IV access not available) 0900 (Not Given - Provider: Desiree Sampson RN - Reason: Other - See Comment - Comment: too aggitated) tamsulosin (FLOMAX) capsule 0.4 mg 0.4 mg, oral, Daily, First dose on Mon06/07/25 at 0900, Until Discontinued, Do not crush or chew. Capsule contents may be sprinkled in water for enteric tube administration. 0759 (Given - Provid er: Desiree Sampson RN) traZODone (DESYREL) tablet 100 mg 100 mg, oral, Nightly, First dose on Mon06/06/25 at 2100, Until Discontinued 221 (Given - Provider: Margie Ye RN) vibegron (GEMTESA) tablet 75 mg 75 mg, oral, Daily, First dose on 06/07/25 at 0900, Until Discontinued 0900 (Not Given - Provider: Desiree Sampson RN - Reason: Other - See Comment - Comment: unavailable) PRN Medication Order 06/05/2025 06/06/2025 06/07/2025 acetaminophen (TYLENOL) tablet 650 mg 650 mg, oral, Every 4 hours PRN, Mild pain or 1-3 (on the numeric pain scale), Moderate pain or 4-6 (on the numeric pain scale), Severe pain or 7-10 (on the numeric pain scale), Starting on Mon06/06/25 at 1801, Until 06/07/25 at 1522, To be given in conjunction with other pain medications if ordered as part of multi-modal therapy. diazePAM (VALIUM) tablet 2 mg 2 mg, oral, Daily PRN, agitation as manifested by yelling / screaming, crying, slamming walker, banging, pacing, self reporting, poor sleep, getting into other people's personal space, Starting on Mon06/06/25 at 1954, Until 06/07/25 at 1522 0528 (Given - Provid er: Farzana Shahid RN) ondansetron (ZOFRAN) injection 4 mg 4 mg, intravenous, Every 8 hours PRN, nausea, vomiting, Starting on Mon06/06/25 at 1802, Until 06/07/25 at 1522 Linked Groups Order Group 1: carBAMazepine (TEGretol) tablet 200 mgJump to med 200 mg, oral, Daily, First dose on Mon06/06/25 at 1815, Until Discontinued, Hazardous Medication Reproductive Risk. Use PPE when handling. And carBAMazepine (TEGretol) tablet 400 mgJump to med 400 mg, oral, Nightly, First dose on Mon06/06/25 at 2100, Until Discontinued, Hazardous Medication Reproductive Risk. Use PPE when handling. Group 2: IV Peripheral Line Care (CANCELED) Until discontinued, Starting on Mon06/06/25 at 1801, Until Specified, Insert/Replace: 96 hours for non-flexion, sterile IVs, 48 hours for flexion IVs, and 24 hours for non-sterile field IVs, Blood Draw: With insertion only And sodium chloride 0.9% flush 2.5-10 mLJump to med 2.5-10 mL, intravenous, See admin instructions, Starting on Mon06/06/25 at 1800, Until 06/07/25 at 1522, Flush each lumen with a pulsatile motion with a minimum of 2.5 mL before and after use. Please note which lumen(s) have been flushed in comments section. And sodium chloride 0.9% flush 2.5-10 mLJump to med 2.5-10 mL, intravenous, Every 12 hours scheduled, First dose on Mon06/06/25 at 2100, Until Discontinued, Flush each lumen with a pulsatile motion with a minimum of 2.5 mL every 12 hours. Please note which lumen(s) have been flushed in comments section. documented in this encounter Additional Health Concerns Active Problems Noted Date Diagnosed Date Autogenerated Problem 04/24/2025 Infection Onset Date Last Indicated Resolved Time Multidrug resistant organism s ESBL Comment:ESBL E.coli 08/03/2020 08/03/2020 documented as of this encounter Care Teams Electrical Maintenance Technician Relationship Specialty Start Date End Date Sher Patrick [address] [place] [address] dr Jose Garcia, IDRIS [address] PCP - General 04/20/17 documented as of this encounter
--- NOTE | 2025-06-08 13:25 | ED_ITS ---
HPI - General Adult General Chief complaint: Psychiatric Symptoms Stated complaint: HAS UTI,UPSET W/GRP HOME STAFF PER EMS Time Seen by Provider: 06/08/25 13:25 Source: patient and EMS Mode of arrival: EMS Limitations: no limitations and physical limitation (patient is demented) History of Present Illness ED Provider: Mari Siddiqi PA-C HPI narrative: Patient is a 69 year old assigned female at with a history of vascular dementia, mood disorder, developmental delay, frequent UTIs, resides in a halfway presenting to the emergency department today with increased agitation and concern of another UTI. Patient states that she has no complaints and she wants to go home. Patient's halfway staff states that the patient has been agitated at the halfway and they think it is a urinary tract infection. Related Data Home Medications ?Medication ?Instructions ?Recorded ?Confirmed nystatin 100,000 unit/gram topical 1 appl topical BID PRN Rash 01/05/21 04/29/25 powder triamcinolone acetonide 0.1 % 1 appl topical BID PRN S kin 01/24/23 04/29/25 topical ointment Irritation ascorbic acid (vitamin C) 500 mg 500 mg PO BID 4 04/29/25 tablet (Vitamin C) betamethasone dipropionate 0.05 % 1 appl topical BID P RN Dry areas 03/13/24 04/29/25 topical ointment on hand vibegron 75 mg tablet (Gemtesa) 75 mg PO DAILY 5 04/29/25 dextromethorphan-guaifenesin 10 10 ml PO QID PRN Cough 03/12/25 04/29/25 mg-100 mg/5 mL oral liquid (Guaifenesin-DM) acetaminophen 500 mg tablet 500 mg PO Q4H PRN 06/03/25 diazepam 2 mg tablet (Valium) 2 mg PO BEDTIME 06/03/25 memantine 5 mg tablet mg PO 06/03/25 Previous Rx's ?Medication ?Instructions ?Recorded multivitamin 1 tab PO DAILY #90 tabs 12/01 compress.stocking,knee,reg,med #12 ea 03/21/25 aspirin 81 mg tablet,delayed 81 mg PO DAILY #30 tabs 0 03/25/25 release carbamazepine 200 mg tablet 200 mg PO DAILY #30 tabs 0 03/25/25 carbamazepine 200 mg tablet 400 mg (2 x 200 mg) PO BED TIME #60 03/25/25 tabs docusate sodium 100 mg capsule 100 mg PO BID #60 caps 03/25/25 donepezil 5 mg tablet 5 mg PO BEDTIME #30 tabs ferrous sulfate 324 mg (65 mg 324 mg PO MOWEFR@0900 #6 0 tabs 03/25/25 iron) tablet,delayed release fluticasone propionate 50 1 spray intranasal BID PRN n shana 03/25/25 mcg/actuation nasal congestion #16 grams spray,suspension levothyroxine 200 mcg tablet 200 mcg PO DAILY@0600 #30 tabs 03/25/25 (Synthroid) loratadine 10 mg tablet 10 mg PO DAILY #30 tabs 03/03 01/24 melatonin 3 mg tablet 9 mg (3 x 3 mg) PO BEDTIME # 90 tabs 03/25/25 methenamine hippurate 1 gram tablet 1 g PO BID #30 tab s 03/25/25 quetiapine 100 mg tablet 100 mg PO DAILY@1200 #30 tab s 03/25/25 quetiapine 200 mg tablet 200 mg PO BID #60 tabs 03/25 sennosides 8.6 mg tablet 8.6 mg PO Q48H constipation #45 03/25/25 tabs tamsulosin 0.4 mg capsule 0.4 mg PO DAILY #30 caps trazodone 100 mg tablet 100 mg PO BEDTIME #30 tabs 0 03/25/25 Icy Hot Max (lidocaine 1 appl topical BID PRN pain #76.5 04/28/25 HCl-menthol) 4 %-1 % topical cream grams (lidocaine HCl-menthol) levothyroxine 50 mcg tablet 50 mcg PO DAILY #30 tabs 0 04/29/25 (Synthroid) Balmex Adult Care 11.3% topical 1 appl topical BID Bill h #340 grams 04/30/25 cream (zinc oxide-vitamin B5-vit E) cefuroxime axetil 250 mg tablet 500 mg (2 x 250 mg) PO BID 7 days 06/08/25 #28 tabs fluconazole 150 mg tablet 150 mg PO Q3D 2 doses #2 tab s 06/08/25 Allergies Allergy/AdvReac Type Severity Reaction Status Date / Time adhesive tape Allergy Intermediate itching Verified 06/08/25 13:43 and skin redness latex Allergy Intermediate skin rash Verified 06/08/25 13:43 and itching Seasonal Allergies Allergy Itching Verified 06/08/25 13:43 weed pollen Allergy stuffy nose Verified 06/08/25 13:43 DUST Allergy Unknown ITCHY/WATERY Uncoded 06/08/25 13:43 EYES surgical paper tape Allergy Unknown rash Uncoded 06/08/25 13:43 Tide Allergy Unknown rash Uncoded 06/08/25 13:43 Review of Systems Constitutional: Constitutional: Reports as per HPI Eyes: Eyes: Reports as per HPI ENT: Reports as per HPI Cardiovascular: Cardiovascular: Reports as per HPI Respiratory: Respiratory: Reports as per HPI Gastrointestinal: Gastrointestinal: Reports as per HPI Genitourinary: Genitourinary: Reports as per HPI Musculoskeletal: Musculoskeletal: Reports as per HPI Integumentary/Breasts: Skin/Breast: Reports as per HPI Neurologic: Reports as per HPI and Reports confusion (per her baseline) Psychiatric: Psychiatric: Reports as per HPI and Reports confusion (per her baseline) Endocrine: Endocrine: Reports as per HPI Hematologic/Lymphatic: Hematologic/Lymphatic: Reports as per HPI Allergic/Immunologic: Allergic/Immunologic: Reports as per HPI PMF Past Medical History Attestation statement: The following information was validated with the patient. (all information validated with the patient's halfway staff) Source: old records reviewed, nursing notes reviewed and other (halfway staff provided additional history and confirmed the history provided by the patient. ) Medical History Intermittent explosive disorder Abnormal MRI Post-surgical hypothyroidism History of ESBL E. coli infection Toxic multinodular goiter Vitamin D deficiency Hyperthyroidism Colon cancer Lung mass Developmental delay, mild Arthritis Surgical History History of carpal tunnel surgery of right wrist Hx of total thyroidectomy History of biopsy Hx of colonic polyps Hx of colonoscopy Family History Family History Father No problems noted. 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 Members: Other Household Members Other:: long-term with 2 other women and 2 men Housing: Other Housing Other:: long-term Do you presently have visiting nurse or other home services: Yes (long-term staff) Unable to assess alcohol history related to: Refusing to respond Alcohol intake: never Comment: 0+ Patient Tobacco Use Status: Never used Tobacco e-Cigarette/Vaping Use: Never Used Second Hand Smoke Exposure: No Advance Directives: Yes Advance Directives on File: Yes Advance Directives Date on File: 01/05/21 Do you have a plan to hurt others: No Plan service: No Current occupational status: disabled Current occupation: right handed Sexual orientation: Straight/Heterosexual Cognitive needs: Yes (walker) Hearing needs: No Vision needs: Yes (rx glasses) Physical Exam ED Vital Signs: Vital Signs - 24 hr 06/08/25 13:41 06/08/25 13:52 Temperature 98.4 F 98.4 F Pulse Rate 69 69 Respiratory Rate 15 15 Blood Pressure 110/57 L 110/57 L Pulse Oximetry 94 94 Oxygen Delivery Method Room Air Room Air BMI result Body Mass Index 28.3 Const General: no acute distress, alert, awake and confusion (per her baseline) Nutritional Appearance: well nourished Orientation/consciousness: oriented to person, oriented to place and confusion (per her baseline) HENMT Head: Yes normal to inspection and Yes atraumatic Ears: hearing grossly normal bilaterally and external ears normal General nose exam: Normal external nose present, no nasal discharge noted and no epistaxis Face and sinus: Yes normal facial exam, No abrasion and No laceration Mouth: Normal oral and palatal mucosa present, no drooling and no muffled voice Eyes General: appearance normal, both eyes and all related structures Periorbital: periorbital findings normal Eyelids: Yes eyelids normal Conjunctivae: conjunctivae normal Pupils: Equal, round and reactive pupils present EOM: EOMs intact bilaterally Neck Neck: Yes normal visual inspection and Yes full ROM Resp Effort & Inspection: normal respiratory effort and able to speak in complete sentences Neuro General: oriented to person, oriented to place, moves all extremities, CN's II- XI intact bilaterally and confusion (per her baseline) Cranial nerves: Yes Equal, round and reactive pupils present Cognition (Neuro): normal cognition Extrem General: Yes normal to inspection, Yes full ROM and Yes capillary refill normal Psych Appearance: grossly normal Mental Status: mental status grossly normal Affect: normal affect Attitude: cooperative Thought process: Normal thought process present Thought content: Normal thought content present Insight: Good insight present (Psych) Medications Administered Discontinued Medications Generic Name Dose Route Start Last Admin Trade Name Joshua PRN Reason Stop Dose Admin Cefuroxime Axetil 500 mg 06/08/25 15:56 06/08/25 16:17 Cefuroxime Axetil 500 Mg Tablet PO 06/08/25 15:57 500 mg ONCE ONE Administration Medical Decision Making Medical Decision Making [facility] Narrative: Patient is a 69 year old assigned female at with a history of vascular dementia, mood disorder, developmental delay, frequent UTIs, resides in a halfway presenting to the emergency department today with increased agitation and concern of another UTI. Patient's physical exam showed a baseline confused individual. Patient's urine showed evidence of infection as well as yeast. I exp lained my physical exam findings as well as all test results to the patient and the patient's halfway staff. I answered all questions asked by the patient and the patient's halfway staff. I stressed the importance of the patient taking her medication as directed (either prescribed or as the over the counter packaging recommends). I stressed the importance of the patient following up with her primary care provider. I stressed the importance of the patient returning to the emergency department immediately if her symptoms were to worsen or if she were to develop any dizziness, shortness of breath, difficulty breathing, chest pain, blurry vision, loss of vision, nausea, vomiting, abdominal pain, fever, chills, back pain, or any other complaints. Patient and the patient's halfway staff verbalized agreement and understanding with this treatment plan and discharge back to the halfway. Differential Diagnosis Differential Diagnoses: The differential diagnosis associated with the presentation includes UTI Dementia Yeast infection Admission/Observation Consideration of admission/observation: Escalation of care including admission/observation considered Patient would have been admitted to the hospital had her work up had any findings where hospital admission was appropriate and her clinical presentation warranted hospital admission. Lab Data [facility] Lab Attestation statement: I reviewed the patient's lab results. My interpretation of these results are in the [facility] Rationale portion of this note. Labs: Lab Results 06/08/25 Range/Units 15:15 Urine Color Yellow Urine Appearance Turbid Urine pH 7.0 (5.0-9.0) Ur Specific [place] 1.020 (1.005-1.025) Urine Protein 100 (2+) H (Neg-Trace) mg/dL Urine Glucose (UA) Negative (Negative) mg/dL Urine Ketones Negative (Negative) mg/dL Urine Blood Small (1+) H (Negative) Urine Nitrite Negative (Negative) Ur Leukocyte Esterase Large (3+) H (Negative) Urine RBC 11-20 H (0-2) /HPF Urine WBC >50 H (0-5) /HPF Ur Squamous Epith Cells 6-10 (0-2) /HPF Urine Bacteria 4+ (None Seen) Hyaline Casts 3-5 (0-2) /LPF Urine Yeast Present Independent Historian Clinical information obtained from an independent historian. History obtained from or confirmed by: Other (long-term staff provided all history and ROS given the patient's dementia status. ) External Record Review External record reviewed: Inpatient record and Outpatient record Prescription Management I considered prescription management with: Antibiotic (patient prescribed an antibiotic for UTI) and Other (patient prescribed an anti fungal for yeast) Discharge Plan Discharge Clinical Impression: Acute UTI, Yeast detected Dementia Qualifiers: Dementia type: unspecified type Dementia severity: moderate Dementia behavioral or psychological symptom: with agitation Qualified Code(s): F03.B11 - Unspecified dementia, moderate, with agitation Patient Disposition: Xfer Other Transfer Details: Snf Instructions: Urinary Tract Infection in Women (DC), Yeast Infection (ED) Additional Instructions: Your urine is once again infected - please take your antibiotics as prescribed. IF you are prescribed home medications and/or you are taking over the counter medications at home - it is very important you continue to do so as prescribed / directed unless told otherwise. Follow up with a primary care provider. Return to the emergency department immediately if your symptoms worsen or if you develop any numbness, tingling, dizziness, shortness of breath, difficulty breathing, chest pain, blurry vision, loss of vision, nausea, vomiting, abdominal pain, fever, chills, back pain, or any other complaints. If you do not have a primary care provider - call any of the below numbers to establish and follow up with a primary care provider. [facility] Primary Care ([place]) [phone] [place] [address] [place], [address] [facility] Primary Care ([address] [place]) [phone] [address] [facility], [address] [facility], [address] [facility] Primary Care ([address] [place]) [phone] [address] [facility], [address] [place], [address] [facility] Primary Care ([place]) [phone] [place] [address], [address] [facility], [address] [facility] Family Medicine [phone] [address] [facility], [address] Please see the information below about our Patient Portal. If you are not yet enrolled in the [facility] Patient Portal, you will receive an enrollment email invitation following your visit to any [facility] setting. You may also self-enroll in the Patient Portal by visiting our website: [email or web address] The following information is required to access the Patient Portal: - Your [facility] Medical Record Number - Your personal home email address (must match what is in your electronic medical record, Registration staff can assist with this) - Name - Date of Capabilities of the Patient Portal: - Message some providers - View upcoming appointments - Access your health summary, medical history, and visit history - View current conditions and allergies - View procedure and lab results - View your medications, including guidelines, side effects, and precautions - Complete pre-appointment questionnaires requested by your provider - Ready summary reports of your office visits and procedures To access the Patient Portal Mobile [employer], follow these directions: - Search [facility] in the [employer] Store or [employer] Store - Download the [employer] - Search for [facility] - Enter your login/password Prescriptions: New cefuroxime axetil 250 mg tablet 500 mg PO BID 7 Days Qty: 28 0RF fluconazole 150 mg tablet 150 mg PO Q3D Qty: 2 0RF No Action (DME) compress.stocking,knee,reg,med Misc See Rx Instructions .Route Qty: 12 0RF Rx Instructions: Wear compression stockings daily. May remove at night Icy Hot Max (lido HCl-menthol) 4-1 % cream 1 appl topical BID PRN (Reason: pain) Qty: 76.5 3RF Balmex Adult Care 11.3 % cream 1 appl TOPICAL BID Qty: 340 1RF Rx Instructions: apply to rash, groin, and buttocks nystatin 100,000 unit/gram Powder 1 appl TOPICAL BID PRN (Reason: Rash) Rx Instructions: rash in skin folds triamcinolone acetonide 0.1 % ointment 1 appl topical BID PRN (Reason: Skin Irritation) Rx Instructions: apply to the lower abdomen, groin, and Buttocks ( Once started apply 2 weeks on and 1 week off) betamethasone dipropionate 0.05 % ointment 1 appl topical BID PRN (Reason: Dry areas on hand) Rx Instructions: Once started, Apply 2 weeks on and 1 week off. ascorbic acid (vitamin C) [Vitamin C] 500 mg tablet 500 mg PO BID dextromethorphan-guaifenesin [Guaifenesin-DM] 10-100 mg/5 mL Liquid 10 ml PO QID PRN (Reason: Cough) donepezil 5 mg Tablet 5 mg PO BEDTIME Qty: 30 0RF aspirin 81 mg Tablet,Delayed Release (Dr/Ec) 81 mg PO DAILY Qty: 30 0RF carbamazepine 200 mg Tablet 400 mg PO BEDTIME Qty: 60 0RF methenamine hippurate 1 gram Tablet 1 g PO BID Qty: 30 0RF tamsulosin 0.4 mg Capsule 0.4 mg PO DAILY Qty: 30 0RF loratadine 10 mg Tablet 10 mg PO DAILY Qty: 30 0RF ferrous sulfate 324 mg (65 mg iron) Tablet,Delayed Release (Dr/Ec) 324 mg PO MOWEFR@0900 Qty: 60 0RF carbamazepine 200 mg Tablet 200 mg PO DAILY Qty: 30 0RF quetiapine 200 mg Tablet 200 mg PO BID Qty: 60 0RF quetiapine 100 mg Tablet 100 mg PO DAILY@1200 Qty: 30 0RF trazodone 100 mg Tablet 100 mg PO BEDTIME Qty: 30 0RF melatonin 3 mg Tablet 9 mg PO BEDTIME Qty: 90 0RF docusate sodium 100 mg Capsule 100 mg PO BID Qty: 60 0RF levothyroxine [Synthroid] 200 mcg Tablet 200 mcg PO DAILY@0600 Qty: 30 0RF fluticasone propionate 50 mcg/actuation [place],Suspension 1 spray intranasal BID PRN (Reason: nasal congestion) Qty: 16 0RF sennosides 8.6 mg tablet 8.6 mg PO Q48H Qty: 45 3RF Rx Instructions: hold for diarrhea. call md if hold for 2 consecutive doses acetaminophen 500 mg tablet 500 mg PO Q4H PRN memantine 5 mg tablet PO diazepam [Valium] 2 mg tablet 2 mg PO BEDTIME multivitamin Tablet 1 tab PO DAILY Qty: 90 3RF Gemtesa 75 mg tablet 75 mg PO DAILY levothyroxine [Synthroid] 50 mcg tablet 50 mcg PO DAILY Qty: 30 5RF Interventions: [place]-Suicide Risk Severity Scale Last Done: 06/08/25 13:52 Print Language: Indonesian
[2025-06-08 13:39] VITALS: BP 140/62; PULSE 81; O2SAT 97
[2025-06-08 13:41] VITALS: BP 110/57; PULSE 69; RESP 15; TEMP 36.9; O2SAT 94; BMI 28.3
[2025-06-08 13:52] VITALS: BP 110/57; PULSE 69; RESP 15; TEMP 36.9; O2SAT 94
--- NOTE | 2025-06-08 13:53 | PC.NURSE ---
69 F pt here d/t agitation towards staff, concerns for UTI d/t incontinence in bed. Pt has a developmental delay, A+Ox3 to person, place, and time but some confusion about situation. RR even and unlabore. Pt denies CP or SOB. RR even and unlabored.
--- OUTSIDE RECORDS SUMMARY | 2025-06-08 14:24 | XMS_ITS | Clinical Summary ---
Author Organization [facility] Address [address] [place] [address] Phone Care Team Providers Care Speeder Tender Name Role Phone Sher Patrick MD Primary Care Provider [phone] Allergies Active Allergy Reactions Criticality Noted Date [...] topic Insurance Medicare Medicaid [place] Care Teams Speeder Tender Relationship Specialty Start Date End Date Sher Patrick MD [address] [place] [address] DRIVE [address] MCINTOSH DE PCP - General Internal Medicine 09/17/24
--- OUTSIDE RECORDS SUMMARY | 2025-06-08 14:24 | XMS_ITS | Patient Health Record ---
Author Organization [facility] Address [address] [place] [address] Care Team Providers Care Surveyor Instrument Assistant Name Role Phone Celina (RETIRED) Sher LORENZ Primary Care Provide r Unavailable Harvinder Simmons Unavailable [phone] Reason For Referral No Information Medications Medication [...] EVERY DAY Oral for 30 Active Nystatin 511973 UNIT/GM APPLY DIRECTE D TO SKIN TWICE [...] Problem Status W/U Status Risk Notes Problem [id number] Encounter for screening for malignant neoplasm of colon (Z12.11) Active confirmed Problem 711903605 History of adenomatous polyp of colon (Z86.010) Active confirmed Problem 939262496 History of colon cancer (Z85.038) Active confirmed Problem 23065295 Rectal bleed (K62.5) Active confirmed Problem 068066140 History of rectal cancer (Z85.048) Active confirmed Plan Of Treatment Future Test Test Name Order Date FLEXIBLE SIGMOIDOSCOPY, DIAGNOSTIC 06/23 COLONOSCOPY 04/23/2019 Insurance Providers Payer Name Payer Address Payer Phone Subscriber Number Group Number Insured Name Patient Relationship to Insured Coverage Start Date Coverage End Date MEDICARE OF [place] [address] [place] [address] [id number] STEPHAN YUDELKA Self - patient is the insured MEDICAID OF [facility] [address] [place] [address] [id number] STEPHANVIKYHA Self - patient is the insured Medical (General) History Medical History History ICD Code colon and rectal cancer-in 2000 she was found to have 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 Reyes, and subsequently with chemotherapy and radiation therapy by Dr. Luis. colon polyps asthma depression anxiety component of mental retardation she denies any history of MD, diabetes, stroke, nor kidney disease urinary incontinence Recurrence of adenomatous ti ssue at the rectal anastomosis in 2011--resected partially by Dr. Bashir, and then sent to [facility] in [place] for a second opiinion. The remainder was removed endoscopically at [facility] in 2011 and shown to be a tubulovillous adenoma. A colonoscopy in 07/2013 at [facility] is described as negative. Surgical History Surgery Date(Month/Year) colon and rectal cancer as above ear surgery tubal ligation hernia repair knee replacement bilateral
--- OUTSIDE RECORDS SUMMARY | 2025-06-08 14:24 | XMS_ITS | Encounter Summary ---
Author Organization [facility] Address [address] [place] [address] Care Team Providers Care Pest Control Operator Name Role Phone Sher Patrick Primary Care Provider [phone] Reason for Visit * Reason Onset Date Comments Needs to reschedule 09/28/2020 Encounter Details Date Type Department Care Team (Late st Contact Info) Description 09/28/2020 Telephone [facility] Central Scheduling Department [address] [place] [id number] Telephone Intake, Staff Needs to reschedule Social [...] Description 06/09/2025 7:15 AM EDT Anesthesia Event [facility] Operating Room [address] [place] [address] Kylah Spring CRNA [address] [place] [address] [place] [address] 06/09/2025 7:15 AM EDT - 06/09/2025 8:20 AM EDT Surgery [facility] Operating Room [address] [place] [address] Catracho Vidal MD MPH [address] [place] [address] Colonoscopy Screening, High Risk with Possible Moderate Sedation [89825 (CPT )] Scheduled Procedures Name Priority Associated [...] documented as of this encounter Care Teams Pest Control Operator Relationship Specialty Start Date End Date Sher Patrick [address] [place] [address] [place] [address] PCP - General 04/20/17 documented as of this encounter
--- OUTSIDE RECORDS SUMMARY | 2025-06-08 14:25 | XMS_ITS | Clinical Summary ---
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 04/08/20 21 2024 Discontinued INV [id number] triamcinolone acetoniden 0.1% topical ointment Apply topically to the affected area. Thin layer topically to the affected area twice daily as needed 06/15/202024 Discontinued Active Problems Problem Noted Date Diagnosed Date Colon polyp 06/07/2025 Hyponatremia 08/26/2024 Assessment & Plan (10/24/2024 10:48 [...] Date Type Department Care Team Description 06/06/2025 5:36 PM EDT - 06/07/2025 1:21 PM EDT Hospital Encounter [facility] [address] [place] [address] Catracho Vidal MD MPH Discharge Disposition: Home or Self Care () 06/06/2025 7:15 AM EDT Hospital Encounter [facility] Operating Room [address] [place] [address] Catracho Vidal MD MPH Colorectal cancer (Primary Dx); Pre-op evaluation 04/14/2025 Prep for Case [facility] Colorectal Surgery [address] [place] [address] Practice Physician: Catracho Scruggs MD MPH 04/09/2025 Documentation [facility] Colorectal Surgery [address] [place] [id number] Practice Physician: Fanta Nava RN from Last 3 Months [...] In the past 12 months has e [employer], gas, oil, or water [facility] threatened to shut off services in your [...] EDT Inhaled Oxygen Concentration - - Weight 61.5 kg (135 lb 9.3 oz) 10/31/2024 11:21 PM EST Height 157.5 cm (5' 2.01 ) 10/31/2024 11:[address] Body Mass Index 24.79 10/31/2024 11:21 PM EST Plan of Treatment Upcoming Encounters Date Type Department Care Team (Latest Contact Info) Description 06/09/2025 7:15 AM EDT Anesthesia Event [facility] Operating Room [address] [place] [id number] [place] [address] [place] [address] 06/09/2025 7:15 AM EDT - 06/09/2025 8:20 AM EDT Surgery [facility] [address] [place] [address] Catracho Vidal MD MPH [address] [place] [address] Colonoscopy Screening, High Risk with Possible Moderate Sedation [80227 (CPT )] Scheduled Procedures Name Priority Associated [...] - Risk 60-74 years 1-dose series) 2014 Colonoscopy 07/02/2024 04/01/2024, 09/01, 03/20/2023, Additional history exists Alcohol/Substance Use Screening 10/02/2024 Depression Screening and Follow-Up 10/02/2024 Health Care Proxy Review 10/02/2024 Social Drivers of Health Annual Screening 10/02/2024 COVID-19 Vaccine ( - season) 2025 04/18/2024, 12/02/2020, 11/04/2020 Influenza Vaccine (#1) 2025 07/05/2021 DTaP,Tdap,and Td Vaccines (2 - Td or Tdap) 02/28/2035 02/28/2025, 08/17/2015 Hepatitis B Vaccines Aged Out No long er eligible based on patient's age to complete this topic Procedures * Due to [place] [employer] law, this organization might not be sharing negative HIV tests. Procedure Name Priority Date/Time Associated Diagnosis Comments ECG 12-LEAD STAT 06/06/2025 7:47 PM EDT HEART & VASCULAR - SCANNED 06/06/2025 COLONOSCOPY 08/05/2020 from Last 3 Months or Most Recently Relevant to Health Maintenance Results * Due to [place] [employer] law, this organization might not be sharing negative HIV tests. * ECG 12 lead (06/06/2025 7:47 PM EDT) Ventricular Rate EKG 95 BPM MUSE EKG Atrial Rate 95 BPM MUSE EKG KS Interval 178 ms MUSE EKG QRS Interval 140 ms MUSE EKG QT Interval 398 ms MUSE EKG QTC Interval 500 ms MUSE EKG P Eckert 38 degrees MUSE EKG R Eckert -62 degrees MUSE EKG T Wave Eckert 19 degrees MUSE EKG 06/06/2025 7:47 PM EDT 06/07/2025 2:09 PM EDT Impressions MUSE EKG - 06/07/2025 2:10 PM EDT SINUS RHYTHM RIGHT BUNDLE BRANCH BLOCK LEFT ANTERIOR FASCICULAR BLOCK BIFASCICULAR BLOCK VOLTAGE CRITERIA FOR LEFT VENTRICULAR HYPERTROPHY PROLONGED QTc ABNORMAL ECG Confirmed by Leodan Velez ([id number]) on 06/07/2025 2:09:58 PM Narrative Procedure Note Leodan Velez MD - 06/07/2025 IMPRESSION: SINUS RHYTHM RIGHT BUNDLE BRANCH BLOCK LEFT ANTERIOR FASCICULAR BLOCK BIFASCICULAR BLOCK VOLTAGE CRITERIA FOR LEFT VENTRICULAR HYPERTROPHY PROLONGED QTc ABNORMAL ECG Confirmed by Leodan Velez ([id number]) on 06/07/2025 2:09:58 PM us Catracho Vidal MD MPH ECG ORDERABLES Final Result MUSE EKG * HEART & VASCULAR - SCANNED (06/06/2025) Anatomical Region Laterality Modality Other us Onbase Scan Janet SCANNED PROCEDURES Final Resu lt * COLONOSCOPY (08/05/2020) Narrative Procedure Note Catracho Vidal MD MPH - 08/05/2020 7:31 AM EST Gastroenterology Patient Name: Kirsten Ronquillo Procedure Date: 08/05/2020 7:31 AM Date of : 1955 Admit Type: Inpatient Age: 64 Room: [place] [address] Gender: Female Note Status: Finalized Attending MD: [...] and oxygen saturations were monitored continuously. The [id number] was introduced through the anus and advanced [...] s ESBL Comment:ESBL E.coli 08/03/2020 08/03/2020 Insurance [facility] MEDIC[facility] Advance Directives Documents on File Type Date Recorded Patient Lath Hand Expl anation Health Care Proxy 06/03/2025 6:10 AM [facility] 2024 Guardianship 05/31/2025 6:05 PM [...] Thompson Friend Health Care Agent Care Teams Interstate Bus Driver Relationship Specialty Start Date End Date Sher Patrick [address] [place] [address] dr Jose Garcia, IDRIS [address] PCP - General 04/20/17
[2025-06-08 15:23] LABS: Appearance Urine Turbid; Glucose Urine UA Negative (Negative); PH 7.0 (5.0-9.0); Specific Gravity - Urine 1.020 (1.005-1.025); UMIC TRIGGER UACC YES
[2025-06-08 16:10] LABS: UACC Culture Trigger YES
[2025-06-08 16:26] VITALS: BP 130/57; PULSE 88; RESP 18
[2025-06-08 16:32] VITALS: BP 130/57; PULSE 88; RESP 18; TEMP -17.7; TEMP 0
== END 2025-06-08 20:37 | disposition other institution (70) ==
PROVIDERS: Physician Assistant Medical; Emergency Provider Emergency Medicine
DX: N39.0 Urinary tract infection, site not specified (principal); F03.918 Unspecified dementia, unspecified severity, with other behavioral disturbance; B37.89 Other sites of candidiasis; Z79.899 Other long term (current) drug therapy
CPT/HCPCS: 51701; 81001; 87086; 87088; 87186; 99283; 99284

== ENCOUNTER 2025-06-19 15:58 | Inpatient (IN) | payer MEDICARE, MEDICAID, SELFPAY ==
--- NOTE | ~2025-06-19 | CT_ITS ---
EXAMINATION: CT CHEST WITHOUT IV CONTRAST INDICATION: Abnormal Chest Xray COMPARISON: Previous CT of the abdomen and pelvis March 2025, chest x-ray most recently July 24, 2025 and CTA of the chest September 2015 TECHNIQUE: Helical CT scan of the chest was performed without intravenous contrast. Coronal and sagittal reformatted images were generated and reviewed. This CT exam was performed with one or more of the following dose reduction techniques: automated exposure control, adjustment of the mA and/or kV according to patient size, use of iterative reconstruction technique. DLP: 222 mGy-cm CHEST: THYROID: Thyroid gland not seen and may have been removed.. LUNGS: Limited evaluation of the lungs due to respiratory motion artifact. There is subsegmental atelectasis or small infiltrate in the left lower lobe. There is heterogeneous attenuation of the lungs, particularly the upper lobes, question mosaic perfusion. MEDIASTINUM: There is no mediastinal lymphadenopathy. There is question of mild circumferential wall thickening of the proximal thoracic esophagus. Esophagus otherwise unremarkable. No mediastinal air or fluid. NAIN: Evaluation of the hilar regions is limited by lack of intravenous contrast material. CARDIOVASCULATURE: The heart is enlarged. There is a very small pericardial effusion. Upper normal size tortuous thoracic aorta. Linear density adjacent to the aortic arch, question vascular representing communication with the left brachiocephalic or left superior intercostal vein and hemiazygos vein. This is unchanged from prior chest CTA. Slightly dilated pulmonary arteries, main pulmonary artery measuring 3.6 cm. DEGREE OF CORONARY CALCIFICATION: mild PLEURA: Trace left pleural effusion. There is no right pleural effusion. No pneumothorax. MAIN AIRWAYS: The mainstem bronchi and proximal branches are patent. AXILLA: There is no axillary lymphadenopathy. BONES AND SOFT TISSUES: Degenerative changes of the spine. UPPER ABDOMEN: Increased attenuation in the gallbladder questionable for gallstones. Mild left hydronephrosis. This is similar to prior CT of the abdomen and pelvis from March [address]25. CT/CT chest wo IV con IMPRESSION: Limited exam due to respiratory motion artifact. Subsegmental atelectasis or small infiltrate in the left lower lobe. Trace left pleural effusion. Question mosaic attenuation in the lungs, greatest in the bilateral upper lobes. Enlarged heart and trace pericardial effusion. Prominent pulmonary arteries, main pulmonary artery measuring 3.6 cm. Question circumferential wall thickening of the proximal thoracic esophagus. No mediastinal fluid or air. Electronically signed by: Niharika Wade MD 07/25/2025 04:27 PM EDT RP
--- NOTE | ~2025-06-19 | XR_ITS ---
EXAMINATION: XR CHEST CLINICAL INFORMATION: fever COMPARISON: March 04, 2025 TECHNIQUE: Frontal view of the chest was obtained. FINDINGS: Prominence of the interstitial markings extending from the perihilar regions with a pulmonary reticular nodular pattern. Opacity left lower hemithorax. No pneumothorax. Cardiomediastinal silhouette appears prominent, unchanged. Tortuosity descending thoracic aorta. Multilevel thoracic and upper lumbar spondylosis. Degenerative changes in the shoulders. Osteopenia versus osteoporosis. XR/XR chest 1V IMPRESSION: Concerning interstitial lung edema. Questionable airspace disease, left lower lung lobe. Electronically signed by: Srinivasan Baron MD 07/02/2025 03:30 PM EDT
--- NOTE | ~2025-06-19 | XR_ITS ---
EXAMINATION: XR CHEST CLINICAL INFORMATION: FU resolution COMPARISON: July 02, 2025. TECHNIQUE: PA and lateral views FINDINGS: No consolidation, pleural effusion or pneumothorax. Cardiomediastinal silhouette size is prominent, unchanged. Tortuosity of the ascending thoracic aorta. Multilevel thoracolumbar spondylosis. XR/XR chest 2V IMPRESSION: No acute airspace disease. Resolved. Electronically signed by: Srinivasan Baron MD 07/23/2025 10:40 AM EDT
--- NOTE | ~2025-06-19 | XR_ITS ---
EXAMINATION: XR CHEST CLINICAL INFORMATION: cough COMPARISON: July 23, 2025. TECHNIQUE: PA and lateral views FINDINGS: Linear and patchy opacity right perihilar region. No pleural effusion. No pneumothorax. Cardiomediastinal silhouette size is unchanged. The appearance of the mediastinum is limited due to patient's positioning. Multilevel thoracolumbar spondylosis. XR/XR chest 2V IMPRESSION: Concerning acute airspace disease, right middle lung lobe/right lower lung base. Electronically signed by: Srinivasan Baron MD 07/24/2025 08:23 AM EDT
--- NOTE | ~2025-06-19 | CT_ITS ---
CLINICAL HISTORY: increase aggression - pt uncooperative best images at this time CT head without contrast Comparison: CT/SR - CT HEAD/BRAIN WO IV CON - 03/04/25 19:[address]/SR - CT CERVICAL SPINE WO IV CON - 03/04/25 19:49 EDT Findings: No intra-axial mass, midline shift, hydrocephalus, or acute hemorrhage. No significant atrophy-like change or white matter disease. There is no sinus or mastoid fluid. The orbits are within normal limits. There is no acute fracture. IMPRESSION: 1. No acute intracranial findings. 2. Indeterminate soft tissue mass in the right parapharyngeal space incompletely visualized, 3.6 x 2.9 cm image 5. This can be further evaluated with nonemergent contrast-enhanced soft tissue neck CT. This document has been electronically signed by: Jabari Mckenzie MD on 06/20/2025 02:56:15
[2025-06-19 16:07] VITALS: BMI 24.7
[2025-06-19 16:14] VITALS: BP 140/93; PULSE 88; RESP 16; O2SAT 93
[2025-06-19] MEDS: OLANZapine 10 MG VIAL IM ×2 (16:51→18:32)
[2025-06-19] MEDS: diazePAM 10 MG/2 ML CARTRIDGE 5 MG IM ×2 (17:19→18:32)
--- NOTE | 2025-06-19 17:19 | PC.NURSE ---
Pt [facility]IB[facility] for reports of aggitation and [facility]compliance at [facility]. Pt yelling out screaming profanities on arrival. Refusing to change into hospital attire and any care. Pt reaching out to strike at staff. PA at bedside. Pt medicated per MAR, [facility] staff at bedside.
--- NOTE | 2025-06-19 17:20 | MHC.EDTECH ---
Patient has refused to have labs drawn and refuses to provide a urine sample. Patient is also extremely verbally abusive using racial slurs.
--- NOTE | 2025-06-19 17:21 | ED.GENADULT ---
HPI - General Adult General Chief complaint: Psychiatric Symptoms Stated complaint: Aggressive toward [facility] staff, refused meds Time Seen by Provider: 06/19/25 16:09 Source: patient Mode of arrival: ambulatory Limitations: no limitations History of Present Illness ED Provider: Tip Muñiz HPI narrative: 69-year-old female with past medical history of vascular dementia, recurrent UTIs, and cholesterol delay, intermittent explosive disorder presents to the ED for increased aggression and being explosive with staff and other residents. As per [facility] aide who was present in the ED when this happened patient usually has a UTI. He denies any new trauma. Patient states she does not want to be here and is very aggressive and loud. Related Data Home Medications ?Medication ?Instructions ?Recorded ?Confirmed nystatin 100,000 unit/gram topical 1 appl topical BID PRN Rash 01/05/21 06/20/25 powder triamcinolone acetonide 0.1 % 1 appl topical BID PRN Skin 01/24/23 06/20/25 topical ointment Irritation ascorbic acid (vitamin C) 500 mg 500 mg PO BID 03/13/24 06/20/25 tablet (Vitamin C) betamethasone dipropionate 0.05 % 1 appl topical BID PRN Dry areas 03/13/24 06/20/25 topical ointment on hand vibegron 75 mg tablet (Gemtesa) 75 mg PO DAILY 01/31/25 06/20/25 dextromethorphan-guaifenesin 10 10 ml PO QID PRN Cough 03/12/25 06/20/25 mg-100 mg/5 mL oral liquid (Guaifenesin-DM) acetaminophen 500 mg tablet 500 mg PO Q4H PRN Pain 06/03/25 06/20/25 diazepam 2 mg tablet (Valium) 2 mg PO NEEDED 06/03/25 06/20/25 memantine 5 mg tablet 5 mg PO DAILY 06/03/25 06/20/25 Previous Rx's ?Medication ?Instructions ?Recorded multivitamin 1 tab PO DAILY #90 tabs 12/19/24 aspirin 81 mg tablet,delayed 81 mg PO DAILY #30 tabs 03/25/25 release carbamazepine 200 mg tablet 200 mg PO DAILY #30 tabs 03/25/25 carbamazepine 200 mg tablet 400 mg (2 x 200 mg) PO BEDTIME #60 03/25/25 tabs docusate sodium 100 mg capsule 100 mg PO BID #60 caps 03/25/25 donepezil 5 mg tablet 5 mg PO BEDTIME #30 tabs 03/25/25 ferrous sulfate 324 mg (65 mg 324 mg PO MOWEFR@0900 #60 tabs 03/25/25 iron) tablet,delayed release fluticasone propionate 50 1 spray intranasal BID PRN nasal 03/25/25 mcg/actuation nasal congestion #16 grams spray,suspension levothyroxine 200 mcg tablet 200 mcg PO DAILY@0600 #30 tabs 03/25/25 (Synthroid) loratadine 10 mg tablet 10 mg PO DAILY #30 tabs 03/25/25 melatonin 3 mg tablet 9 mg (3 x 3 mg) PO BEDTIME #90 tabs 03/25/25 quetiapine 100 mg tablet 100 mg PO DAILY@1200 #30 tabs 03/25/25 quetiapine 200 mg tablet 200 mg PO BID #60 tabs 03/25/25 sennosides 8.6 mg tablet 8.6 mg PO Q48H constipation #45 03/25/25 tabs tamsulosin 0.4 mg capsule 0.4 mg PO DAILY #30 caps 03/25/25 trazodone 100 mg tablet 100 mg PO BEDTIME #30 tabs 03/25/25 Icy Hot Max (lidocaine 1 appl topical BID PRN pain #76.5 04/28/25 HCl-menthol) 4 %-1 % topical cream grams (lidocaine HCl-menthol) levothyroxine 50 mcg tablet 50 mcg PO DAILY #30 tabs 04/29/25 (Synthroid) Balmex Adult Care 11.3% topical 1 appl topical BID Rash #340 grams 04/30/25 cream (zinc oxide-vitamin B5-vit E) Allergies Allergy/AdvReac Type Severity Reaction Status Date / Time adhesive tape Allergy Intermediate itching Verified 06/19/25 16:08 and skin redness latex Allergy Intermediate skin rash Verified 06/19/25 16:08 and itching Seasonal Allergies Allergy Itching Verified 06/19/25 16:08 weed pollen Allergy stuffy nose Verified 06/19/25 16:08 DUST Allergy Unknown ITCHY/WATERY Uncoded 06/19/25 16:08 EYES surgical paper tape Allergy Unknown rash Uncoded 06/19/25 16:08 Tide Allergy Unknown rash Uncoded 06/19/25 16:08 Review of Systems Review of Systems: Agitation aggressive Yes all other systems are reviewed and are negative [facility] Past Medical History Medical History (Updated 06/23/25 @ 00:00 by Jamarcus Bee) Recurrent UTI Intermittent explosive disorder Abnormal MRI Post-surgical hypothyroidism History of ESBL E. coli infection Toxic multinodular goiter Vitamin D deficiency Hyperthyroidism Colon cancer Lung mass Developmental delay, mild Arthritis Surgical History History of carpal tunnel surgery of right wrist Hx of total thyroidectomy History of biopsy Hx of colonic polyps Hx of colonoscopy Family History Family History Father No problems noted. 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 Members: Other Household Members Other:: detention with 2 other women and 2 men Housing: Other Housing Other:: detention Unable to assess alcohol history related to: Unknown Alcohol intake: never Comment: 0+ Patient Tobacco Use Status: Never used Tobacco Smoked in Last 30 Days: No e-Cigarette/Vaping Use: Never Used Patient Interested in Nicotine Replacement: No Patient Given Instructions on How to Stop Smoking: No Second Hand Smoke Exposure: No Currently Displaying Signs/Symptoms of Drug Intoxication Withdrawal: No Advance Directives: Yes Advance Directives Information Provided: No Advance Directives on File: Yes Advance Directives Date on File: 01/05/21 Do you have thoughts of harming others: None Do you have a plan to hurt others: No Plan Recently lost weight without trying: No Eating poorly because of decreased appetite: No Patient : No : No Poor oral hygiene: No service: No Current occupational status: disabled Current occupation: right handed Sexual orientation: Straight/Heterosexual Cognitive needs: Yes (walker) Hearing needs: No Vision needs: Yes (rx glasses) Physical Exam ED Vital Signs: Vital Signs - 24 hr 06/23/25 06:30 Temperature 98.1 F Pulse Rate 67 Respiratory Rate 16 Pulse Oximetry 98 Oxygen Delivery Method Room Air BMI result Body Mass Index 24.7 Const General: cooperative, healthy appearing, comfortable, no acute distress, well developed, alert, awake and Physically active HENMT Head: Yes normal to inspection, Yes No palpable skull fracture present, Yes normocephalic and Yes atraumatic Eyes General: appearance normal, both eyes and all related structures Neck Neck: Yes normal visual inspection, Yes full ROM, Yes no lymphadenopathy, Yes no meningeal signs, Yes trachea midline, Yes supple, No anterior neck swelling and No tender Chest Chest palpation & inspection: normal inspection of the chest and normal palpation of entire chest wall Resp Effort & Inspection: normal respiratory effort and able to speak in complete sentences Auscultation: clear to auscultation bilaterally Cardio Jugular venous distension: no JVD Heart sounds: S1 normal heart sound present and S2 normal heart sound present GI Inspection: Yes normal to inspection Palpation (GI): Soft to palpation, not firm, nontender, no guarding and not rigid General: Yes no CVA tenderness Back/Spine/Pelvis Back: no CVA tenderness and No back tenderness Skin General skin exam: no rashes or lesions noted, elasticity normal and turgor normal Neuro Other: Aggressive screaming General: no meningeal signs Extrem General: Yes normal to inspection, Yes full ROM and Yes capillary refill normal Psych Appearance: grossly normal, well kempt and not disheveled Course Reevaluation(s) Reevaluation #1: Alf Davdison PA-C have accepted care of the patient and signed out pending CT brain and care team consult likely Kaylee psych CT brain:IMPRESSION: 1. No acute intracranial findings. 2. Indeterminate soft tissue mass in the right parapharyngeal space incompletely visualized, 3.6 x 2.9 cm image 5. This can be further evaluated with nonemergent contrast-enhanced soft tissue neck CT. This is not emergenty no stridor no diff breathing, this can be managed as outpatient Shawanda Gagnon DO 06/20/25 0609 Reevaluation #2: Time: 06:09 Date: 06/20/25 Provider: Shawanda Gagnon, DO Patient in physician observation for psychiatric evaluation.? Pending CARE team input, received multiple medications for her aggression, she is awake but calm right now. Will continue to monitor. Reevaluation #3: DR. Kelly's progress note,bruce: Date: 06/21/25. Patient in physician observation for psychiatric evaluation.? Pending CARE team input, received multiple medications for her aggression, she is awake but calm right now. Will continue to monitor. Time: Date: 06/22/25 Provider: DR. Kelly Patient in physician observation for psychiatric evaluation.? No acute events reported overnight. No current complaints. VS stable.? Patient is in bed search status. Will continue to monitor. Additional Reevaluation(s): 06/23/25 1556 physician observation ended admitted inpatient MICHELLE DO Medications Administered Generic Name Dose Route Start Last Admin Trade Name Freq PRN Reason Stop Dose Admin Ascorbic Acid 500 mg 06/21/25 09:00 06/23/25 20:25 Ascorbic Acid 500 Mg Tablet PO 500 mg BID DANA Administration Aspirin 81 mg 06/21/25 09:00 06/23/25 09:20 Aspirin Enteric Coated 81 Mg Tablet. PO 81 mg DAILY DANA Administration Carbamazepine 200 mg 06/21/25 09:00 06/23/25 09:21 Carbamazepine 200 Mg Tablet PO 200 mg DAILY DANA Administration Carbamazepine 400 mg 06/21/25 00:30 06/23/25 20:26 Carbamazepine 200 Mg Tablet PO 400 mg BEDTIME DANA Administration Diazepam 2 mg 06/21/25 00:30 06/23/25 18:00 Diazepam 2 Mg Tablet PO 2 mg DAILY PRN Administration Anxiety Diazepam 2 mg 06/21/25 15:00 06/23/25 20:25 Diazepam 2 Mg Tablet PO 2 mg TID DANA Administration Docusate Sodium 100 mg 06/21/25 00:30 06/23/25 20:25 Docusate Sodium 100 Mg Capsule PO 100 mg BID DANA Administration Donepezil HCl 5 mg 06/21/25 00:30 06/23/25 20:26 Donepezil Hcl 5 Mg Tablet PO 5 mg BEDTIME DANA Administration Ferrous Sulfate 324 mg 06/23/25 09:00 06/23/25 09:20 Ferrous Sulfate 324 Mg Tablet. PO 324 mg MOWEFR@0900 DANA Administration Hydroxyzine HCl 25 mg 06/23/25 14:50 06/23/25 18:00 Hydroxyzine Hcl 25 Mg Tablet PO 25 mg Q6H PRN Administration mild anxiety Levothyroxine Sodium 50 mcg 06/21/25 06:30 06/23/25 06:30 Levothyroxine Sodium 50 Mcg Tablet PO 50 mcg 0630 DANA Administration Levothyroxine Sodium 200 mcg 06/21/25 06:30 06/23/25 06:30 Levothyroxine Sodium 200 Mcg Tablet PO 200 mcg 0630 DANA Administration Loratadine 10 mg 06/21/25 09:00 06/23/25 09:20 Loratadine 10 Mg Tablet PO 10 mg DAILY DANA Administration Melatonin 9 mg 06/21/25 00:30 06/23/25 20:26 Melatonin 3 Mg Tablet PO 9 mg BEDTIME DANA Administration Memantine 5 mg 06/21/25 09:00 06/23/25 09:20 Memantine Hcl 5 Mg Tablet PO 5 mg DAILY DANA Administration Multivitamins/Vitamin C 1 tab 06/21/25 09:00 06/23/25 09:21 Multivitamin Tablet PO 1 tab DAILY DANA Administration Olanzapine 10 mg 06/23/25 18:48 06/23/25 18:57 Olanzapine Odt 10 Mg Tab.Rapdis TRANSLINGU 10 mg Q6H PRN Administration agitation Quetiapine Fumarate 100 mg 06/21/25 12:00 06/23/25 12:12 Quetiapine Fumarate 100 Mg Tablet PO 100 mg DAILY@1200 DANA Administration Quetiapine Fumarate 200 mg 06/21/25 00:30 06/23/25 20:26 Quetiapine Fumarate 200 Mg Tablet PO 200 mg BID DANA Administration Senna 8.6 mg 06/21/25 09:00 06/23/25 09:20 Sennosides 8.6 Mg Tablet PO 8.6 mg Q48H DANA Administration Tamsulosin HCl 0.4 mg 06/21/25 09:00 06/23/25 09:21 Tamsulosin Hcl 0.4 Mg Capsule PO 0.4 mg DAILY DANA Administration Trazodone HCl 100 mg 06/21/25 00:30 06/23/25 20:25 Trazodone Hcl 100 Mg Tablet PO 100 mg BEDTIME DANA Administration Discontinued Medications Generic Name Dose Route Start Last Admin Trade Name Freq PRN Reason Stop Dose Admin Diazepam 5 mg 06/19/25 16:55 06/19/25 17:19 Diazepam 10 Mg/2 Ml Cartridge IM 06/19/25 16:56 5 mg STAT STA Administration Diazepam 5 mg 06/19/25 18:19 06/19/25 18:32 Diazepam 10 Mg/2 Ml Cartridge IM 06/19/25 18:20 5 mg STAT STA Administration Diazepam 10 mg 06/19/25 21:02 06/19/25 21:08 Diazepam 10 Mg/2 Ml Cartridge IM 06/19/25 21:03 10 mg STAT STA Administration Diazepam 5 mg 06/20/25 08:12 06/20/25 08:37 Diazepam 5 Mg Tablet PO 06/20/25 08:13 5 mg ONCE ONE Administration Diazepam 10 mg 06/23/25 22:13 06/23/25 22:20 Diazepam 10 Mg/2 Ml Cartridge IM 06/23/25 22:14 10 mg STAT STA Administration Diphenhydramine HCl 50 mg 06/19/25 18:19 06/19/25 18:32 Diphenhydramine Hcl 50 Mg/Ml Vial IM 06/19/25 18:20 50 mg ONCE ONE Administration Haloperidol Lactate 5 mg 06/19/25 21:02 06/19/25 21:08 Haloperidol Lactate 5 Mg/Ml Vial IM 06/19/25 21:03 5 mg STAT STA Administration Ketamine HCl 50 mg 06/19/25 19:07 06/19/25 19:18 Ketamine Hcl 500 Mg/5 Ml Vial IM 06/19/25 19:08 50 mg ONCE ONE Administration Ketamine HCl 100 mg 06/19/25 19:43 06/19/25 19:53 Ketamine Hcl 500 Mg/5 Ml Vial IM 06/19/25 19:44 100 mg ONCE ONE Administration Olanzapine 10 mg 06/19/25 16:31 06/19/25 16:51 Olanzapine 10 Mg Vial IM 06/19/25 16:32 10 mg STAT STA Administration Olanzapine 10 mg 06/19/25 18:26 06/19/25 18:32 Olanzapine 10 Mg Vial IM 06/19/25 18:27 10 mg ONCE ONE Administration Olanzapine 10 mg 06/23/25 22:13 06/23/25 22:20 Olanzapine 10 Mg Vial IM 06/23/25 22:14 10 mg ONCE ONE Administration Quetiapine Fumarate 200 mg 06/20/25 08:12 06/20/25 08:37 Quetiapine Fumarate 200 Mg Tablet PO 06/20/25 08:13 200 mg ONCE ONE Administration Medical Decision Making Medical Decision Making MDM Narrative: 69-year-old female presents to ED for increased aggression and yelling at [facility] residents and staff. Patient states to the ED to be evaluated for UTI. Patient is very aggressive towards hospitalist staff and disruptive and not being compliant. Zyprexa 10 Valium 5 mg ordered. Labs UA ordered. 6:21: Labs were drawn. Patient wants again aggressive towards staff. Patient is through cups of water at staff and walked to the bathroom being aggressive with staff throwing and hands. Benadryl Valium and zyprexa odered 9:08pm: Patient requires more meds. Patient is not aggressive tendon flipped over the bed trying to attack staff. Patient is using foul language. Haldol 5 and Valium 10 ordered IM. Patient is placed in physical complaints 12:07am; Case signed out to JAMES Gomez Differential Diagnosis Differential Diagnoses: The differential diagnosis associated with the presentation includes (uTI, drug encephalopahty, dementia) Admission/Observation Consideration of admission/observation: Escalation of care including admission/observation considered Consult Healthcare Provider Management of the patient was discussed with: Masonry Inspector (care team) Lab Data MDM Lab Attestation statement: I reviewed the patient's lab results. 06/19/25 17:56 06/19/25 17:56 Labs: Lab Results 06/19/25 06/19/25 06/19/25 Range/Units 17:55 17:56 20:23 WBC 9.0 (4.8-10.8) X10*3/uL RBC 3.74 L (4.20-5.50) X10*6/uL Hgb 10.7 L (12.0-16.0) g/dl Hct 33.5 L (37.0-47.0) % MCV 89.6 (80.0-98.0) fL MCH 28.6 (27.0-33.0) pg MCHC 31.9 (31.0-35.0) g/dl RDW 13.1 (11.0-16.0) % Plt Count 255 (160-400) X10*3/uL MPV 9.3 L (9.4-12.3) fL Immature Gran % (Auto) 0.3 (0.0-0.4) % Neut % (Auto) 65.5 (45-73) % Lymph % (Auto) 22.5 (20-40) % Cocke % (Auto) 8.8 (2-11) % Eos % (Auto) 2.3 (0-4) % Baso % (Auto) 0.6 (0-2) % Lymph # (Auto) 2.0 (1.2-4.9) X10*3/uL [place] # (Auto) 0.8 (0.1-1.2) X10*3/uL Eos # (Auto) 0.2 (0.0-0.4) X10*3/uL Baso # (Auto) 0.1 (0.0-0.2) X10*3/uL Abs Immat Gran (auto) 0.03 (0.00-0.03) X10*3/uL Absolute Neuts (auto) 5.9 (2.0-8.3) x10*3/uL Absolute Nucleated RBC 0.000 (0.0-0.012) X10*3/uL Nucleated RBC % (auto) 0.0 (0.0-0.2) /100WBC Sodium 143 (135-145) mmol/L Potassium 4.5 (3.3-5.1) mmol/L Chloride 111 H (96-108) mmol/L Carbon Dioxide 26 (22-29) mmol/L Anion Gap 11 L (12-20) BUN 37 H (9-16) mg/dL Creatinine 1.03 (0.5-1.4) mg/dL Estim Creat Clear Calc 43.7 Estimated GFR 53 Random Glucose 98 (60-115) mg/dL Calcium 8.8 (8.4-10.2) mg/dL Total Bilirubin 0.2 (0.0-1.0) mg/dL AST 28 (5-31) U/L ALT 18 (0-31) U/L Alkaline Phosphatase 105 (39-117) U/L Ammonia 36 (13-55) umol/L Total Protein 7.3 (6.5-8.0) g/dL Albumin 3.9 (3.5-5.0) g/dL Urine Color Yellow Urine Appearance Clear Urine pH 6.0 (5.0-9.0) Ur Specific [place] 1.020 (1.005-1.025) Urine Protein Trace (Neg-Trace) mg/dL Urine Glucose (UA) Negative (Negative) mg/dL Urine Ketones Negative (Negative) mg/dL Urine Blood Negative (Negative) Urine Nitrite Negative (Negative) Ur Leukocyte Esterase Small (1+) H (Negative) Urine RBC 0-2 (0-2) /HPF Urine WBC 6-10 (0-5) /HPF Ur Squamous Epith Cells 6-10 (0-2) /HPF Urine Bacteria None Seen (None Seen) Hyaline Casts 0-2 (0-2) /LPF Urine Opiates Screen Not Detected (Not Detect) Ur Buprenorphine Scrn Not Detected (Not Detect) ng/mL Ur Oxycodone Screen Not Detected (Not Detect) ng/mL Urine Methadone Screen Not Detected (Not Detect) ng/mL Urine Fentanyl Screen Not Detected (Not Detect) Ur Barbiturates Screen Not Detected (Not Detect) Ur Phencyclidine Scrn Not Detected (Not Detect) Ur Amphetamines Screen Not Detected (Not Detect) U Benzodiazepines Scrn POSITIVE H (Not Detect) Urine Cocaine Screen Not Detected (Not Detect) U Marijuana (THC) Screen Not Detected (Not Detect) Ethyl Alcohol < 10 mg/dL Independent Interpretation I performed an independent interpretation of an: CT Scan Independent Historian Clinical information obtained from an independent historian. History obtained from or confirmed by: Other (patient) Discharge Plan Discharge Clinical Impression: Aggression Patient Disposition: Admitted As Inpatient Interventions: [place]-Suicide Risk Severity Scale Last Done: 06/24/25 00:00 Admission Worksheet (ED) Last Done: 06/23/25 15:56 Discharge Date/Time: 06/23/25 15:57
--- OUTSIDE RECORDS SUMMARY | 2025-06-19 17:23 | XMS_ITS | Encounter Summary ---
Author Organization [facility] Address [address] [place] [address] Care Team Providers Care Sales Solutions Representative Name Role Phone Sher Patrick Primary Care Provider [phone] Reason for Visit * Reason Onset Date Comments Needs to reschedule 09/28/2020 Encounter Details Date Type Department Care Team (Late st Contact Info) Description 09/28/2020 Telephone [facility] Central Scheduling Department [address] [place] [id number] Telephone Intake, Staff Needs to reschedule Social [...] Department Care Team (Latest Contact Info) Description 08/01/2025 7:15 AM EDT Hospital Encounter [facility] Operating Room [address] [place] [phone] Catracho Vidal MD MPH [address] [place] [phone] Colorectal cancer (Primary Dx); Pre-op evaluation 08/04/2025 7:15 AM EST Anesthesia Event [facility] Operating Room [address] [place] [phone] Kylah Spring, [address] [place] [address] 08/04/2025 7:15 AM EST - 08/04/2025 8:20 AM EST Surgery [facility] Operating Room [address] [place] [id number] Catracho Vidal MD MPH [address] [place] [id number] Colonoscopy Screening, High Risk with Possible Moderate Sedation [48978 (CPT )] Scheduled Procedures Name Priority Associated Diagnoses Date/Ti me COLONOSCOPY SCREENING, HIGH RISK WITH POSSIBLE MODERATE SEDATION Colorectal cancer (HCC) 08/04/2025 7:15 AM EST documented as of this encounter Visit Diagnoses Not on filedocumented in this encounter Additional Health Concerns Infection Onset Date Last Indicated Resolved Time Multidrug resistant organism s ESBL Comment:ESBL E.coli 08/03/2020 08/03/2020 COVID-19 - Suspected infection 07/03/2021 07/03/2021 07/03/2021 7:00 PM EDT documented as of this encounter Care Teams Sales Solutions Representative Relationship Specialty Start Date End Date Sher Patrick [address] [place] [address] [place] [address] PCP - General 04/20/17 documented as of this encounter
--- OUTSIDE RECORDS SUMMARY | 2025-06-19 17:23 | XMS_ITS | Clinical Summary ---
Author Organization [facility] Address [address] [place] [address] Phone Care Team Providers Care International Logistics Coordinator Name Role Phone Sher Patrick MD Primary Care Provider [phone] Allergies Active Allergy Reactions Criticality Noted Date [...] topic Insurance Medicare Medicaid [place] Care Teams International Logistics Coordinator Relationship Specialty Start Date End Date Sher Patrick MD [address] [place] [address] DR[id number] [place] PCP - General Internal Medicine 09/17/24
--- OUTSIDE RECORDS SUMMARY | 2025-06-19 17:23 | XMS_ITS | Clinical Summary ---
Author Organization [facility] Address [address] [place] [address] Care Team Providers Care Foxer Name Role Phone Sher Patrick Primary Care Provider [phone] Allergies Active Allergy Reactions Criticality Noted Date Comments House Dust Wheezing Low 08/19/2019 Latex Rash 12/09/2020 Mite Extract Other (see comments) Low 08/18/2019 [place] Pollen Unknown 05/29/2025 Medications carBAMazepine (TEGretol) 200 [...] for pain. 04/08/20 21 2024 Discontinued INV [id number] triamcinolone acetoniden 0.1% topical ointment Apply topically [...] - 06/07/2025 1:21 PM EDT Hospital Encounter [facility] [address] [place] [address] Catracho Vidal MD MPH Discharge Disposition: Home or Self Care () 04/14/2025 Prep for Case [facility] Colorectal Surgery [address] [place] [address] Box Car Checker: Catracho Scruggs MD MPH 04/09/2025 Documentation [facility] Colorectal Surgery [address] [place] [address] Box Car Checker: Fanta Nava RN from Last 3 Months [...] drink = 0.6 oz pur e alcohol) [facility] Utilities Answer Date Recorded In the past 12 months has e [employer], [employer], oil, or water [employer] threatened to shut off services in your [...] Description 08/01/2025 7:15 AM EDT Hospital Encounter [facility] Operating Room [address] [place] [id number] Catracho Vidal MD MPH [address] [place] [address] Colorectal cancer (Primary Dx); Pre-op evaluation 08/04/2025 7:15 AM EST Anesthesia Event [facility] Operating Room [address] [place] [address] [address] [place] [address] 08/04/2025 7:15 AM EST - 08/04/2025 8:20 AM EST Surgery [facility] Operating Room [address] [place] [address] Catracho Vidal MD MPH [address] [place] [address] Colonoscopy Screening, High Risk with Possible Moderate Sedation [96882 (CPT )] Scheduled Procedures Name Priority Associated Diagnoses Date/Ti me COLONOSCOPY SCREENING, HIGH RISK WITH POSSIBLE MODERATE SEDATION Colorectal cancer (HCC) 08/04/2025 7:15 AM EST Health Maintenance Due Date Last Done Comments [...] complete this topic Procedures * Due to [facility] law, this organization might not be sharing [...] QTC Interval 500 ms MUSE EKG P [place] 38 degrees MUSE EKG R [place] -62 degrees MUSE EKG T Wave [place] 19 degrees MUSE EKG 06/06/2025 7:47 PM EDT 06/07/2025 2:09 PM EDT Impressions MUSE EKG - 06/07/2025 2:10 PM EDT SINUS RHYTHM RIGHT BUNDLE BRANCH BLOCK LEFT ANTERIOR FASCICULAR BLOCK BIFASCICULAR BLOCK VOLTAGE CRITERIA FOR LEFT VENTRICULAR HYPERTROPHY PROLONGED QTc ABNORMAL ECG Confirmed by Leodan Velez ([id number]) on 06/07/2025 2:09:58 PM Narrative Procedure Note Leodan Velez MD - 06/07/2025 IMPRESSION: SINUS RHYTHM RIGHT BUNDLE BRANCH BLOCK LEFT ANTERIOR FASCICULAR BLOCK BIFASCICULAR BLOCK VOLTAGE CRITERIA FOR LEFT VENTRICULAR HYPERTROPHY PROLONGED QTc ABNORMAL ECG Confirmed by Leodan Velez ([id number]) on 06/07/2025 2:09:58 PM us Catracho Vidal MD MPH ECG ORDERABLES Final Result MUSE EKG * HEART & VASCULAR - SCANNED (06/06/2025) Anatomical Region Laterality Modality Other us Onbase Scan Janet SCANNED PROCEDURES Final Resu lt * COLONOSCOPY (08/05/2020) Narrative Procedure Note Catracho Vdial MD MPH - 08/05/2020 7:31 AM EST Gastroenterology Patient Name: Kirsten Ronquillo Procedure Date: 08/05/2020 7:31 AM Date of : 1955 Admit Type: Inpatient Age: 64 Room: [place] [address] Gender: Female Note Status: Finalized Attending MD: [...] and oxygen saturations were monitored continuously. The [id number] was introduced through the anus and advanced [...] s ESBL Comment:ESBL E.coli 08/03/2020 08/03/2020 Insurance [facility] MEDICARE Advance Directives Documents on File Type Date Recorded Patient Tram Inspector Expl anation Health Care Proxy 06/03/2025 6:10 AM [facility] 2024 Guardianship 05/31/2025 6:05 PM 2024 Advance [...] Thompson Friend Health Care Agent Care Teams Foxer Relationship Specialty Start Date End Date Sher Patrick [address] [place] [address] [place] [address] PCP - General 04/20/17
[2025-06-19 18:01] LABS: MANUAL DIFF FLAG NO
[2025-06-19 18:11] LABS: Hematocrit 33.5 % (37.0-47.0); Hemoglobin 10.7 g/dl (12.0-16.0); Imm Gran Abs Auto 0.03 X10*3/uL (0.00-0.03); Imm Gran Pct Auto 0.3 % (0.0-0.4); Lymphocytes Absolute Auto 2.0 X10*3/uL (1.2-4.9); Mean Corpuscular HGB Conc 31.9 g/dl (31.0-35.0); Mean Corpuscular Hemoglobin 28.6 pg (27.0-33.0); Mean Corpuscular Volume 89.6 fL (80.0-98.0); NRBC Abs Auto 0.000 X10*3/uL (0.0-0.012); NRBC Pct Auto 0.0 /100WBC (0.0-0.2); Platelet Count 255 X10*3/uL (160-400); Red Blood Count 3.74 X10*6/uL (4.20-5.50); White Blood Count 9.0 X10*3/uL (4.8-10.8)
[2025-06-19 18:11] LABS: Ammonia 36 umol/L (13-55)
--- NOTE | 2025-06-19 18:11 | PC.NURSE ---
Pt offered PO fluids, pt threw cups at staff. Continues to yell out and resist care. Pt not allowing vital signs to be obtained, continues to attempt to strike staff.
--- NOTE | 2025-06-19 18:11 | PC.NURSE ---
Pt now allowable to collect labs, sent and results pending. Unable to collect urine, PO fluids provided and hat placed in bedside commode. PA aware.
[2025-06-19 18:18] LABS: Alanine Aminotransferase 18 U/L (0-31); Albumin Level 3.9 g/dL (3.5-5.0); Alkaline Phosphatase 105 U/L (39-117); Anion Gap 11 (12-20); Aspartate Amino Transferase 28 U/L (5-31); Blood Urea Nitrogen 37 mg/dL (9-16); Calcium 8.8 mg/dL (8.4-10.2); Carbon Dioxide 26 mmol/L (22-29); Chloride 111 mmol/L (96-108); Creatinine Clr Calc Pharmacy 43.7; Estimated Glomerular Filt Rate 53; Potassium 4.5 mmol/L (3.3-5.1); Sodium 143 mmol/L (135-145); Total Protein 7.3 g/dL (6.5-8.0)
--- NOTE | 2025-06-19 18:33 | PC.NURSE ---
Pt became increasingly aggressive, yelling out and striking staff. Exit seeking and attempting to leave. Unable to redirect. Provider aware and bedside. Pt medicated per MAR
--- NOTE | 2025-06-19 19:29 | PC.NURSE ---
PT aggressive, swatting at staff, TW and being verbally agressive/threatening. Behavioral IM administered as per order. Sitter at bedside. Will attempt to have pt change control manager and straight cath as ordered once pt is calm.
--- NOTE | 2025-06-19 19:40 | PC.NURSE ---
Attempted to straight cath pt, pt kicking at tw, threatening and being verbally aggressive. Notified provider
--- NOTE | 2025-06-19 20:01 | PC.NURSE ---
PT continues to be combative,Security called to bedside, IM medication restraint ordered and administered as per NOV. unable to scan due to emergent need.
[2025-06-19 20:21] VITALS: BP 113/49; PULSE 81; RESP 15
--- NOTE | 2025-06-19 20:22 | PC.NURSE ---
Straight cath performed as ordered. Urine being sent down by humphrey Wolfe
--- NOTE | 2025-06-19 20:27 | PC.NURSE ---
PT placed on school lunch monitor. Continues to yell and call staff racial slurs. Sitter remains at bedside.
[2025-06-19 20:32] LABS: Appearance Urine Clear; Glucose Urine UA Negative (Negative); PH 6.0 (5.0-9.0); Specific Gravity - Urine 1.020 (1.005-1.025); UMIC TRIGGER UACC YES
[2025-06-19 20:43] LABS: Cannabinoid Screen Urine Not Detected (Not Detect)
[2025-06-19] MEDS: diazePAM 10 MG/2 ML CARTRIDGE IM (21:08)
[2025-06-19 21:17] VITALS: BP 169/71; PULSE 92; RESP 15; O2SAT 94
--- NOTE | 2025-06-19 21:19 | PC.NURSE ---
PT continuing to be aggressive- kicking staff and corn shredder, trying to get out of bed. Provider notified. PT placed in 4 point restraints and IM'd for safety.
[2025-06-19 21:29] LABS: UACC Culture Trigger YES
[2025-06-19 21:47] VITALS: BP 130/54; PULSE 78; RESP 15; O2SAT 92
[2025-06-19 22:02] VITALS: BP 125/49; PULSE 83; RESP 15; O2SAT 92
--- NOTE | 2025-06-19 22:02 | PC.NURSE ---
Pt assessed for trial release. security removed LL from restraints pt immediately begun kicking bed, continuing to yell leah de la rosa to tw. 1:1 sitter and GH staff at bedside.
--- NOTE | 2025-06-19 22:46 | PC.NURSE ---
PT agreeable to remain safe if she gets ice cream. PT provided ice cream and release from restraints. PT displaying no aggressive behaviors and is calm and cooperative. 1:1 sitter and GH staff at bedside. plan of care ongoing
[2025-06-19 23:27] VITALS: BP 142/69; PULSE 76; RESP 17; TEMP 36.4; O2SAT 99
--- NOTE | 2025-06-20 | ECG_ITS ---
Test Reason : MEDICAL CLEARANCE Blood Pressure : */* mmHG Vent. Rate : 83 BPM Atrial Rate : 83 BPM P-R Int : 180 ms QRS Dur : 146 ms QT Int : 392 ms P-R-T Axes : 48 -60 27 degrees QTcB Int : 460 ms Normal sinus rhythm Right bundle branch block Left anterior fascicular block Bifascicular block Minimal voltage criteria for LVH, may be normal variant ( R in aVL ) Abnormal ECG When compared with ECG of 11-Mar-2025 19:57, No significant change was found Referred By: Generic ED Physician Electronically Signed By: RAJESH RIZO
[2025-06-20 02:57] VITALS: PULSE 62; RESP 14; O2SAT 95
[2025-06-20 04:29] VITALS: BP 141/54; PULSE 62; TEMP 36.4; O2SAT 99
[2025-06-20 06:00] VITALS: RESP 16
--- NOTE | 2025-06-20 07:07 | PC.NURSE ---
Call placed to housekeeper nanny to notify that gh staff were not at bedside for 3 hour 3-6, he returned then left again at 6:30 after pt stated she did not want a male staff in her room. GH staff stated he was returning to his car. Bertha reports that GH are required to be at bedside until pt his admitted or planned to d/c home. Bertha to call staff to return
[2025-06-20 07:53] VITALS: BP 133/64; PULSE 70; RESP 18; TEMP 36.6; O2SAT 94
--- NOTE | 2025-06-20 08:07 | PC.NURSE ---
assumed care of pt at 0645. pt asleep but awakens to verbal stimuli. answering questions/following commands appropriately. vss and up to date. nsr on the cardiac rn. pt increasingly agitated upon awakening - yelling and using profanity. pt noted to have state i'm going to kill myself! by sitter. provider notified/aware. 1:1 sitter remains present. horticultural farmworker bedside. pt otherwise on RA w/o difficulty. no sob/wob noted. respirations even/unlabored. pending care team consult. plan of care ongoing. call carrero placed within reach.
--- NOTE | 2025-06-20 08:39 | PC.NURSE ---
ambulated to the restroom w/ a 1:1 assist - slightly unsteady gait. urinated a large amount of clear/pale yellow urine. pt provided w/ fresh ligature free attire. bed change completed. belongings obtained from back of stretcher/placed in mitra port shelf #1. pt continued to remain agitated throughout interaction. willingly took PO medication w/o difficulty. effectiveness pending. pt currently speaking w/ care team/having evaluation. fpc member/1:1 sitter bedside. plan of care ongoing.
[2025-06-20 09:28] VITALS: BP 132/68; PULSE 79; RESP 18; TEMP 37; O2SAT 98
--- NOTE | 2025-06-20 11:49 | MHC.CARE ---
Pt will be an inpatient Kaylee bedsearch
--- NOTE | 2025-06-20 12:15 | PC.NURSE ---
pt currently remains asleep/calm/cooperative at this time. waking up periodically to ambulate to the restroom. 1:1 assist needed d/t slightly unsteady gait. 1:1 sitter/penitentiary member remain bedside. pt continues to remain a geripsych bed search. plan of care ongoing. call carrero placed within reach.
--- NOTE | 2025-06-20 12:33 | P.CNPS_ITS ---
History of Present Illness Date of Service: 06/20/2025 Chief Complaint: Aggressive toward skilled nursing staff, refused meds Discussed with referring provider: Yes Sources of Information: patient interviewed, chart reviewed and crisis/core team assessment reviewed HPI Narrative: Ms. Ronquillo is a 69 year-old woman with hx of developmental delay and vascular dementia who was brought from due to increase aggression towars staff, attempting to elope from . Per staff who was present at time of explosive behaviors, pt insisted on leaving the skilled nursing and living on her own (which she is no longer able to do due to decline in memory/cog and not being safe alone), pushing staff, threw bottle to him and other objects to other staff members. This automobile service writer also spoke with HCP, Isi who reports she is receiving several calls from stating that she is increasingly more agitated and combative. Pt seen in the ED, pt received seroquel in the AM. She woke up and was yelling at staff. She yelling at this automobile service writer stating let me go, I want to go! She does not engage with this automobile service writer any further. Past Psychiatric History: Inpt: S1: 09/2024 OP: Tammy Randall NP past medication trials: abilify, carbamazepine, cogentin, seroquel, olanzapine [facility] Medical History (Updated 06/20/25 @ 03:42 by PAYTON Stahl) Recurrent UTI Intermittent explosive disorder Abnormal MRI Post-surgical hypothyroidism History of ESBL E. coli infection Toxic multinodular goiter Vitamin D deficiency Hyperthyroidism Colon cancer Lung mass Developmental delay, mild Arthritis Surgical History History of carpal tunnel surgery of right wrist Hx of total thyroidectomy History of biopsy Hx of colonic polyps Hx of colonoscopy Family History: unknown Trauma History: Not disclosed Diagnostics Vital Signs (24Hr): Vital Signs - 24 hr 06/19/25 16:14 06/19/25 20:21 06/19/25 21:17 Temperature Pulse Rate 88 81 92 Respiratory Rate 16 15 15 Blood Pressure 140/93 H 113/49 L 169/71 H Pulse Oximetry 93 94 Oxygen Delivery Method Room Air Room Air 06/19/25 21:47 06/19/25 22:02 06/19/25 23:27 Temperature 97.6 F Pulse Rate 78 83 76 Respiratory Rate 15 15 17 Blood Pressure 130/54 L 125/49 L 142/69 H Pulse Oximetry 92 92 99 Oxygen Delivery Method Room Air Room Air Room Air 06/20/25 02:57 06/20/25 04:29 06/20/25 06:00 Temperature 97.6 F Pulse Rate 62 62 Respiratory Rate 14 16 Blood Pressure 141/54 H Pulse Oximetry 95 99 Oxygen Delivery Method Room Air Room Air 06/20/25 07:53 06/20/25 09:28 Temperature 97.9 F 98.6 F Pulse Rate 70 79 Respiratory Rate 18 18 Blood Pressure 133/64 132/68 Pulse Oximetry 94 98 Oxygen Delivery Method Room Air Room Air BMI result Body Mass Index 24.7 Labs 06/19/25 17:56 06/19/25 17:56 Labs: Laboratory Results - last 48 hr 06/19/25 06/19/25 06/19/25 17:55 17:56 20:23 WBC 9.0 RBC 3.74 L Hgb 10.7 L Hct 33.5 L MCV 89.6 MCH 28.6 MCHC 31.9 RDW 13.1 Plt Count 255 MPV 9.3 L Immature Gran % (Auto) 0.3 Neut % (Auto) 65.5 Lymph % (Auto) 22.5 [place] % (Auto) 8.8 Eos % (Auto) 2.3 Baso % (Auto) 0.6 Lymph # (Auto) 2.0 [place] # (Auto) 0.8 Eos # (Auto) 0.2 Baso # (Auto) 0.1 Abs Immat Gran (auto) 0.03 Absolute Neuts (auto) 5.9 Absolute Nucleated RBC 0.000 Nucleated RBC % (auto) 0.0 Sodium 143 Potassium 4.5 Chloride 111 H Carbon Dioxide 26 Anion Gap 11 L BUN 37 H Creatinine 1.03 Estim Creat Clear Calc 43.7 Estimated GFR 53 Random Glucose 98 Calcium 8.8 Total Bilirubin 0.2 AST 28 ALT 18 Alkaline Phosphatase 105 Ammonia 36 Total Protein 7.3 Albumin 3.9 Urine Color Yellow Urine Appearance Clear Urine pH 6.0 Ur Specific [place] 1.020 Urine Protein Trace Urine Glucose (UA) Negative Urine Ketones Negative Urine Blood Negative Urine Nitrite Negative Ur Leukocyte Esterase Small (1+) H Urine RBC 0-2 Urine WBC 6-10 Ur Squamous Epith Cells 6-10 Urine Bacteria None Seen Hyaline Casts 0-2 Urine Opiates Screen Not Detected Ur Buprenorphine Scrn Not Detected Ur Oxycodone Screen Not Detected Urine Methadone Screen Not Detected Urine Fentanyl Screen Not Detected Ur Barbiturates Screen Not Detected Ur Phencyclidine Scrn Not Detected Ur Amphetamines Screen Not Detected U Benzodiazepines Scrn POSITIVE H Urine Cocaine Screen Not Detected U Marijuana (THC) Screen Not Detected Ethyl Alcohol < 10 Mental Status Exam Mental Status Exam Narrative: Appearance: wearing casual clothing, goos hygiene, in NAD Behavior: hostile Psychomotor: agitation Speech: mumbles, difficult to understand at times, spontaneous TP: wanting to go home TC: wanting to go home, profanities to staff. Mood: let me go Affect: irritable, agitated SI: denies HI: denies VH/AH: no signs Delusions: no overt delusions Insight/judgment: impaired x2 alert, oriented to hospital, not so much to situation Medications Allergies Allergies Allergy/AdvReac Type Severity Reaction Status Date / Time adhesive tape Allergy Intermediate itching Verified 06/19/25 16:08 and skin redness latex Allergy Intermediate skin rash Verified 06/19/25 16:08 and itching Seasonal Allergies Allergy Itching Verified 06/19/25 16:08 weed pollen Allergy stuffy nose Verified 06/19/25 16:08 DUST Allergy Unknown ITCHY/WATERY Uncoded 06/19/25 16:08 EYES surgical paper tape Allergy Unknown rash Uncoded 06/19/25 16:08 Tide Allergy Unknown rash Uncoded 06/19/25 16:08 Assessment & Plan Assessment & Plan (1) Intermittent explosive disorder: Status: Acute Code(s): F63.81 - Intermittent explosive disorder (2) Developmental delay, mild: Status: Acute Code(s): R62.50 - Unspecified lack of expected normal physiological development in childhood (3) Vascular dementia: Status: Acute Code(s): F01.50 - Vascular dementia, unspecified severity, without behavioral disturbance, psychotic disturbance, mood disturbance, and anxiety Plan Ms. Ronquillo is a 69 year-old woman with hx of developmental delay, vascular dementia with increase agitation and combative behaviors. It appears she has been scalating in terms of increase aggression now towards staff. This automobile service writer spoke with her HCP who is in agreement with [facility] for stabilization, containtment and safety. PLAN 1. [facility] for stabilization, containment and safety. 2. continue for now seroquel 200mg po BID, 100mg po daily at 1500. continue carbamazepine, will check level tomorrow. May consider change to depakote. 3. add schedule valium 2mg po TID- hold for oversedation. Total time managing care of this patient today ____ minutes.
--- NOTE | 2025-06-20 13:10 | MHC.EDTECH ---
I went to do the patient EKG, when I tried to explain to patient about the test, she started being combative, verbally abusive, and yelling. Nurse aware
--- NOTE | 2025-06-20 14:38 | PHA.MEDREC ---
Pharmacy Consult ? Medication Reconciliation Pharmacy has reviewed the medication reconciliation completed by nursing.
--- NOTE | 2025-06-20 14:40 | PC.NURSE ---
ekg is needed for medical clearance/admission. tech attempted to complete ekg x 2 but pt became verbally/physically aggressive. admissions team notified/aware. will reattempt.
[2025-06-21 01:49] VITALS: BP 153/60; PULSE 71; RESP 18; TEMP 36.6; O2SAT 95
[2025-06-21 07:40] VITALS: BP 130/65; PULSE 71; RESP 18; O2SAT 96
--- NOTE | 2025-06-21 08:29 | PC.NURSE ---
Morning medication administration delayed d/t levothyroxine 200mcg not available in xis. Pharmacy notified- will bring medication when available.
[2025-06-21] MEDS: Aspirin Enteric Coated 81 MG TABLET.DR PO (09:50)
--- NOTE | 2025-06-21 10:33 | MHC.EDTECH ---
Patient washed up in bathroom and jamil oneal
--- NOTE | 2025-06-21 10:49 | PC.NURSE ---
Assumed care of pt at 0700. Pt sitting up in bed, respirations even and unlabored, no increased wob/sob noted, maintaining O2 sat >92% on RA, denies CP/SOB. Pt given morning medications whole with applesauce- swallowed w/out difficulty. Pt allowed this RN to update vital signs, calm/cooperative with staff. Denies SI to this RN, 1:1 sitter remains at bedside for pt safety. Pt up oob, ambulatory with jackaroo and walker. Washed up in bathroom with jackaroo. Bed linens changed and replaced, call carrero within reach, all needs met at this time.
[2025-06-21 12:15] VITALS: BP 138/63; PULSE 74; RESP 18; O2SAT 95
[2025-06-21 20:03] VITALS: RESP 14
[2025-06-21 23:48] VITALS: RESP 16
--- NOTE | 2025-06-21 23:50 | MHC.EDTECH ---
This tech took over care of pt at 2300, rounds completed, pt is sleeping resp rate WNL, per RN to hold vitals at this time, pt is high risk for falls, fall risk precautions placed, pt has a 1-1 sitter at bedside for safety.
[2025-06-22 01:30] VITALS: BP 131/66; PULSE 67; RESP 16; TEMP 36.8; O2SAT 98
--- NOTE | 2025-06-22 01:38 | MHC.EDTECH ---
Patient ambulated to the BR, W/1assist,W/walker pt has a slow steady gait, vitals taken, patient requested rob jaimes, pt was given,pt is calm @ this time. 1-1 sitter @ bedside
--- NOTE | 2025-06-22 01:45 | MHC.EDTECH ---
Assisted RN with Davidson placement, pt tolerated well
[2025-06-22 06:00] VITALS: RESP 18
--- NOTE | 2025-06-22 07:05 | MHC.EDTECH ---
Patient refused vitals and lab drawn,RN aware
[2025-06-22 07:42] VITALS: BP 94/61; PULSE 64; RESP 20; TEMP 36.4; O2SAT 98
[2025-06-22] MEDS: Aspirin Enteric Coated 81 MG TABLET.DR PO (08:39)
--- NOTE | 2025-06-22 08:57 | PC.NURSE ---
Care of Pt assumed at change of shift. 1:[address] Pt noted to be agitated this AM. She frequently and repeatedly states she is not staying here and wants to leave. Pt is complaint with AM med pass. Pt currently resting in bed, yelling out and demanding to go home.
--- NOTE | 2025-06-22 12:11 | PC.NURSE ---
Attempted to medicate Pt with 1200 Seroquel. Pt refuses to take medication at this time. Pt is agitated and states go to hell! and I want to get out of here. Will re-attempt to administer at a later time.
--- NOTE | 2025-06-22 13:42 | PC.NURSE ---
Pt agreeable to take afternoon medications at this time. Seroquel given and Diazepam given early due to Pts willingness to be complaint with medications.
[2025-06-22 22:11] VITALS: PULSE 68; RESP 18; O2SAT 96
--- NOTE | 2025-06-22 22:13 | PC.NURSE ---
pt calm and cooperative. administered pts meds with applesauce, pt took them well. pt switched from stretcher to hospital bed for comfort. pts call carrero within reach, 1:[address] plan of care ongoing
[2025-06-23 06:30] VITALS: PULSE 67; RESP 16; TEMP 36.7; O2SAT 98
[2025-06-23] MEDS: Ferrous Sulfate 324 MG TABLET.DR PO (09:20)
[2025-06-23] MEDS: Aspirin Enteric Coated 81 MG TABLET.DR PO (09:20)
--- NOTE | 2025-06-23 09:41 | PC.NURSE ---
Addendum entered by Celia Bae RN 06/23/25 09:48: Plan is for pt to be admitted to an inpatient Geriatric psychiatric unit for safety and containment, mood stabilization, medication evaluation, participation in therapeutic milieu, and discharge planning to include pt?s current outpatient providers. A section 12a will be in place while CARE Team conducts a statewide adult bedsearch. Due to pt?s level of decompensation, she requires a locked unit, and would not be safe in a [facility] milieu without first being stabilized on medication. Addendum entered by Celia Bae RN 06/23/25 09:42: 69-year-old female with past medical history of vascular dementia, recurrent UTIs, and cholesterol delay, intermittent explosive disorder presents to the ED for increased aggression and being explosive with staff and other residents. As per [facility] aide who was present in the ED when this happened patient usually has a UTI. Patient alert, loud with frequent use of obscenities. Keeps stating I don't want to be here I want to go home I hate this hospital. Able to ambulate to the bathroom utilizing a walker. Respirations even and non-labored. Tolerating diet well.. Takes her pills whole with applesauce. Pending psych admission. Original Note: Medical History Recurrent UTI Intermittent explosive disorder Abnormal MRI Post-surgical hypothyroidism History of ESBL E. coli infection Toxic multinodular goiter Vitamin D deficiency Hyperthyroidism Colon cancer Lung mass Developmental delay, mild Arthritis
[2025-06-23 16:25] VITALS: BP 139/74; PULSE 90; RESP 18; TEMP 36.3; O2SAT 98
--- NOTE | 2025-06-23 17:24 | PC.ADMIT ---
Kirsten is a 69yold female with a past medical hx of lung mass, colon cancer, s/p thyroid removal, arthritis, and developmental delay and vascular dementia. She has an explosive disorder, bipolar,anxiety. She was brought in by ambulance from her half-way due to her being aggressive and refusing her medications. She was just treated for UTI 06/16-. Her skin is unremarkable has old scars on both knees from knee replacements. She has been verbally yelling and swearing and making statements of dying but has no intent to follow through. She has been given PRN meds to help calm her.
[2025-06-23 18:16] VITALS: BMI 24.7
[2025-06-23] MEDS: OLANZapine ODT 10 MG TAB.RAPDIS TRANSLINGU (18:57)
--- NOTE | 2025-06-23 19:00 | PC.NURSE ---
Continued to screams and yelling texted oncall for new orders. Given dose of zyprexa 10mg orally.
[2025-06-23] MEDS: diazePAM 10 MG/2 ML CARTRIDGE IM (22:20)
[2025-06-23] MEDS: OLANZapine 10 MG VIAL IM (22:20)
[2025-06-24 07:55] VITALS: BP 136/76; PULSE 90; RESP 18; TEMP 36.7; O2SAT 98
--- NOTE | 2025-06-24 08:36 | P.HPPS_ITS ---
HPI Date of Service: 06/24/25 Chief Complaint: Combative Behaviors Sources of Information: patient interviewed, chart reviewed and crisis/core team assessment reviewed HPI Subjective Notes: Conditional Voluntary Healthcare Proxy: Yes Narrative: Ms. Ronquillo is a 69 year-old woman with hx of developmental delay and vascular dementia who was brought from due to increase aggression towards staff, attempting to elope from . Per staff who was present at time of explosive behaviors, pt insisted on leaving the intermediate and living on her own (which she is no longer able to do due to decline in memory/cog and not being safe alone), pushing staff, threw bottle to him and other objects to other staff members. This remote mortgage underwriter also spoke with HCP, Isi who reports she is receiving several calls from stating that she is increasingly more agitated and combative. On the unit, pt presents as agitated, demanding to leave, stating I am not going to listen to anyone, I am leaving. Very irritable, and hostile when approach by this remote mortgage underwriter. I'm leaving, I am going home, I am not staying here. Very low frustration tolerance, concrete think, impulsive behaviors. Past Psychiatric History: Inpt: S1: 09/2024 OP: Tammy Randall NP past medication trials: abilify, carbamazepine, cogentin, seroquel, olanzapine Medical Evaluation Reviewed: Yes [facility]LY [facility] Medical History (Updated 06/25/25 @ 17:05 by Izabella Presley NP) Recurrent UTI Intermittent explosive disorder Abnormal MRI Post-surgical hypothyroidism History of ESBL E. coli infection Toxic multinodular goiter Vitamin D deficiency Hyperthyroidism Colon cancer Lung mass Developmental delay, mild Arthritis Surgical History History of carpal tunnel surgery of right wrist Hx of total thyroidectomy History of biopsy Hx of colonic polyps Hx of colonoscopy Family History: unknown Trauma History: Not disclosed Diagnostics Vital Signs (24Hr): Vital Signs - 24 hr 06/23/25 16:25 Temperature 97.3 F Pulse Rate 90 Respiratory Rate 18 Blood Pressure 139/74 Pulse Oximetry 98 Oxygen Delivery Method Room Air BMI result Body Mass Index 24.7 Labs 06/19/25 17:56 06/25/25 10:24 Meds/Allergies Meds Home Medications ?Medication ?Instructions ?Recorded ?Confirmed ?Type nystatin 100,000 unit/gram topical 1 appl topical BID PRN Rash 01/05/21 06/20/25 History powder triamcinolone acetonide 0.1 % 1 appl topical BID PRN S kin 01/24/23 06/20/25 History topical ointment Irritation ascorbic acid (vitamin C) 500 mg 500 mg PO BID 4 06/20/25 History tablet (Vitamin C) betamethasone dipropionate 0.05 % 1 appl topical BID P RN Dry areas 03/13/24 06/20/25 History topical ointment on hand vibegron 75 mg tablet (Gemtesa) 75 mg PO DAILY 5 06/20/25 History dextromethorphan-guaifenesin 10 10 ml PO QID PRN Cough 03/12/25 06/20/25 History mg-100 mg/5 mL oral liquid (Guaifenesin-DM) acetaminophen 500 mg tablet 500 mg PO Q4H PRN Pain 11/2606/20/25 History diazepam 2 mg tablet (Valium) 2 mg PO NEEDED 06/20/25 History memantine 5 mg tablet 5 mg PO DAILY 06/03/2506/20 History Allergies Allergies Allergy/AdvReac Type Severity Reaction Status Date / Time adhesive tape Allergy Intermediate itching Verified 06/19/25 16:08 and skin redness latex Allergy Intermediate skin rash Verified 06/19/25 16:08 and itching Seasonal Allergies Allergy Itching Verified 06/19/25 16:08 weed pollen Allergy stuffy nose Verified 06/19/25 16:08 DUST Allergy Unknown ITCHY/WATERY Uncoded 06/19/25 16:08 EYES surgical paper tape Allergy Unknown rash Uncoded 06/19/25 16:08 Tide Allergy Unknown rash Uncoded 06/19/25 16:08 Mental Status Exam Mental Status Exam Narrative: Appearance: wearing casual clothing, goos hygiene, in NAD Behavior: hostile Psychomotor: agitation Speech: mumbles, difficult to understand at times, spontaneous TP: wanting to go home TC: wanting to go home, profanities to staff. Mood: let me go Affect: irritable, agitated SI: denies HI: denies VH/AH: no signs Delusions: no overt delusions Insight/judgment: impaired x2 alert, oriented to hospital, not so much to situation Assessment & Plan Assessment & Plan (1) Major neurocognitive disorder due to vascular disease, with behavioral disturbance, severe: Status: Acute Code(s): F01.C18 - Vascular dementia, severe, with other behavioral disturbance (2) Developmental delay, moderate: Status: Deleted Code(s): R62.50 - Unspecified lack of expected normal physiological development in childhood Plan Ms. Ronquillo is a 69 year-old woman with hx of developmental delay, vascular dementia who was brought via EMS due to increase aggression. Medical work up mostly unremarkable, except for TSH 22, free T4 1.22. She is on levothyroxine, unclear if taking it as prescribed. This remote mortgage underwriter spoke with pt's psychiatric provider, Tammy Randall who reports she has been adjusting dose of seroquel. She has been on carbamazepine for a long time for mood stabilization- will check level. Will add diazepam for impulsive/explosive behaviors. PLAN 1. Admit to S1, Sect 12b, 15 minutes checks 2. will switch carbamazepine to depakote- as carbamazepine may be interacting with other medications and may not be as effective managing impulsive/explosive behaviors. 3. continue for now seroquel, but may consider changing antipsychotic medication as well. 4. obtain collateral information 5. aftercare planning. Patient educated on: diagnosis Reason for continued inpatient stay Substantial Risk for: harm to others Statement Statement: I have reviewed the history and physical and performed a pertinent examination on my patient. No changes have occurred unless specified. If the History and Physical was not performed prior to admission, the Hospitalist's service will be consulted for completing the admission physical. Time Spent With Patient Time: Total time managing care of this patient today ____ minutes.
[2025-06-24] MEDS: Aspirin Enteric Coated 81 MG TABLET.DR PO (08:37)
--- NOTE | 2025-06-24 08:37 | HO.HCP_ITS ---
Health Care Proxy Invocation Health Care Proxy Declaration: I, Izabella Presley , on the date cited below, have determined that, Kirsten Ronquillo , lacks the capacity to make or communicate, informed health care decision. This determination is made in accordance with accepted standards of medical judgment and pursuant to [place] 201[place], the [facility] Care Proxy Law. The cause, nature, extent and probable duration of the patient's inapacity are described below: Cause: developmental delay and vascular dementia Nature:unable to retain new information, impaired executive function, impulsive behaviors Extent:complete Probable Duration of Patient's Incapacity:not expected to regained
--- NOTE | 2025-06-24 08:41 | HO.PM.IMCN ---
History of Present Illness Data of Consult Service Date: 06/24/25 Primary Care Provider: Unknown Physician HPI Reason for consult: Medical consult 69-year-old female with a past medical history of vascular dementia, recurrent UTIs, intermittent explosive disorder, history of colon cancer, MARLENI, hypothyroidism, lung mass, developmental delay and arthritis presented to the ED after increased aggression and explosive behavior with staff and other residents, as well as refusal of medications.. While in the ED she had several incidences of aggressive behavior including throwing water and attempt in the strike staff she required doses of Zyprexa and Valium. She was medically cleared and admitted to Geriatric psych for continued care. On exam she denies any shortness of breath, or chest pain, denies abdominal pain. She takes a little bit to answer questions due to her mental state. Cooperative, lying in bed appears fatigued, she was medicated multiple times in the ED. Review of Systems Review of Systems: Limited due to mental status [facility], [facility] Medical History (Updated 06/24/25 @ 13:06 by Anastasia Sandoval DNP) Recurrent UTI Intermittent explosive disorder Abnormal MRI Post-surgical hypothyroidism History of ESBL E. coli infection Toxic multinodular goiter Vitamin D deficiency Hyperthyroidism Colon cancer Lung mass Developmental delay, mild Arthritis Family History Father No problems noted. Mother Medical history unknown Surgical History History of carpal tunnel surgery of right wrist Hx of total thyroidectomy History of biopsy Hx of colonic polyps Hx of colonoscopy Social History Household Members: Other Household Members Other:: correction with 2 other women and 2 men Housing: Other Housing Other:: correction Unable to assess alcohol history related to: Unknown Alcohol intake: never Comment: 0+ Patient Tobacco Use Status: Never used Tobacco Smoked in Last 30 Days: No e-Cigarette/Vaping Use: Never Used Patient Interested in Nicotine Replacement: No Patient Given Instructions on How to Stop Smoking: No Second Hand Smoke Exposure: No Currently Displaying Signs/Symptoms of Drug Intoxication Withdrawal: No Advance Directives: Yes Advance Directives Information Provided: No Advance Directives on File: Yes Advance Directives Date on File: 01/05/21 Do you have thoughts of harming others: None Do you have a plan to hurt others: No Plan Recently lost weight without trying: No Eating poorly because of decreased appetite: No Patient : No : No Poor oral hygiene: No service: No Current occupational status: disabled Current occupation: right handed Sexual orientation: Straight/Heterosexual Cognitive needs: Yes (walker) Hearing needs: No Vision needs: Yes (rx glasses) Meds Allergies Allergy/AdvReac Type Severity Reaction Status Date / Time adhesive tape Allergy Intermediate itching Verified 06/19/25 16:08 and skin redness latex Allergy Intermediate skin rash Verified 06/19/25 16:08 and itching Seasonal Allergies Allergy Itching Verified 06/19/25 16:08 weed pollen Allergy stuffy nose Verified 06/19/25 16:08 DUST Allergy Unknown ITCHY/WATERY Uncoded 06/19/25 16:08 EYES surgical paper tape Allergy Unknown rash Uncoded 06/19/25 16:08 Tide Allergy Unknown rash Uncoded 06/19/25 16:08 Active Medications: Current Medications Acetaminophen (Acetaminophen 325 Mg Tablet) 650 mg PO Q4H PRN PRN Reason: Pain Al Hydroxide/Mg Hydroxide (Magnesium Hydrox/Alum Hydrox 30 Ml Oral.Susp) 30 ml PO Q6H PRN PRN Reason: Heartburn/Nausea Ascorbic Acid (Ascorbic Acid 500 Mg Tablet) 500 mg PO BID [facility] Last Admin: 06/23/25 20:25 Dose: 500 mg Aspirin (Aspirin Enteric Coated 81 Mg Tablet.Dr) 81 mg PO DAILY [facility] Last Admin: 06/23/25 09:20 Dose: 81 mg Betamethasone Dipropion Augmented (Betamethasone Dip Aug 0.05% Cr 15 Gm Tube) 1 appl TOPICAL BID PRN PRN Reason: Dry areas on hand Carbamazepine (Carbamazepine 200 Mg Tablet) 200 mg PO DAILY [facility] Last Admin: 06/23/25 09:21 Dose: 200 mg Carbamazepine (Carbamazepine 200 Mg Tablet) 400 mg PO BEDTIME [facility] Last Admin: 06/23/25 20:26 Dose: 400 mg Diazepam (Diazepam 2 Mg Tablet) 2 mg PO DAILY PRN PRN Reason: Anxiety Last Admin: 06/23/25 18:00 Dose: 2 mg Diazepam (Diazepam 2 Mg Tablet) 2 mg PO TID [facility] Last Admin: 06/23/25 20:25 Dose: 2 mg Docusate Sodium (Docusate Sodium 100 Mg Capsule) 100 mg PO BID [facility] Last Admin: 06/23/25 20:25 Dose: 100 mg Donepezil HCl (Donepezil Hcl 5 Mg Tablet) 5 mg PO BEDTIME [facility] Last Admin: 06/23/25 20:26 Dose: 5 mg Ferrous Sulfate (Ferrous Sulfate 324 Mg Tablet.Dr) 324 mg PO MOWEFR@0900 [facility] Last Admin: 06/23/25 09:20 Dose: 324 mg Fluticasone Propionate (Fluticasone Propionate Nasal 16 Gm Dawson) 1 spray NOSTRIL-B BID PRN PRN Reason: Nasal Congestion Guaifenesin/Dextromethorphan (Guaifenesin Dm 100/10/5 Ml 5 Ml Syrup) 10 ml PO QID PRN PRN Reason: Cough Hydroxyzine HCl (Hydroxyzine Hcl 25 Mg Tablet) 25 mg PO Q6H PRN PRN Reason: mild anxiety Last Admin: 06/23/25 18:00 Dose: 25 mg Levothyroxine Sodium (Levothyroxine Sodium 50 Mcg Tablet) 50 mcg PO 0630 [facility] Last Admin: 06/23/25 06:30 Dose: 50 mcg Levothyroxine Sodium (Levothyroxine Sodium 200 Mcg Tablet) 200 mcg PO 0630 [facility] Last Admin: 06/23/25 06:30 Dose: 200 mcg Loratadine (Loratadine 10 Mg Tablet) 10 mg PO DAILY [facility] Last Admin: 06/23/25 09:20 Dose: 10 mg Magnesium Hydroxide (Milk Of Magnesia 30 Ml Oral.Susp) 30 ml PO DAILY PRN PRN Reason: Constipation Melatonin (Melatonin 3 Mg Tablet) 9 mg PO BEDTIME [facility] Last Admin: 06/23/25 20:26 Dose: 9 mg Memantine (Memantine Hcl 5 Mg Tablet) 5 mg PO DAILY [facility] Last Admin: 06/23/25 09:20 Dose: 5 mg Multivitamins/Vitamin C (Multivitamin Tablet) 1 tab PO DAILY [facility] Last Admin: 06/23/25 09:21 Dose: 1 tab Non-Formulary Medication (Vibegron [Gemtesa]) 75 mg PO DAILY [facility] Nystatin (Nystatin Powder 15 Gm Bottle) 1 appl TOPICAL BID PRN; Protocol PRN Reason: Rash Olanzapine (Olanzapine Odt 10 Mg Tab.Rapdis) 10 mg TRANSLINGU Q6H PRN PRN Reason: agitation Last Admin: 06/23/25 18:57 Dose: 10 mg Quetiapine Fumarate (Quetiapine Fumarate 100 Mg Tablet) 100 mg PO DAILY@1200 [facility] Last Admin: 06/23/25 12:12 Dose: 100 mg Quetiapine Fumarate (Quetiapine Fumarate 200 Mg Tablet) 200 mg PO BID [facility] Last Admin: 06/23/25 20:26 Dose: 200 mg Senna (Sennosides 8.6 Mg Tablet) 8.6 mg PO Q48H [facility] Last Admin: 06/23/25 09:20 Dose: 8.6 mg Tamsulosin HCl (Tamsulosin Hcl 0.4 Mg Capsule) 0.4 mg PO DAILY [facility] Last Admin: 06/23/25 09:21 Dose: 0.4 mg Trazodone HCl (Trazodone Hcl 100 Mg Tablet) 100 mg PO BEDTIME [facility] Last Admin: 06/23/25 20:25 Dose: 100 mg Trazodone HCl (Trazodone Hcl 50 Mg Tablet) 50 mg PO BEDTIME MRX1 PRN PRN Reason: Insomnia Triamcinolone Acetonide (Triamcinolone Acet 0.1 % Oint 15 Gm Tube) 1 appl TOPICAL BID PRN PRN Reason: Skin Irritation Home Medications ?Medication ?Instructions ?Recorded ?Confirmed ?Last Taken ?Type nystatin 100,000 unit/gram topical 1 appl topical BID PRN Rash 01/05/21 06/20/25 Unknown History powder triamcinolone acetonide 0.1 % 1 appl topical BID PRN Skin 01/24/23 06/20/25 Unknown History topical ointment Irritation ascorbic acid (vitamin C) 500 mg 500 mg PO BID 03/13/24 06/20/25 02/21/25 History tablet (Vitamin C) betamethasone dipropionate 0.05 % 1 appl topical BID PRN Dry areas 03/13/24 06/20/25 Unknown History topical ointment on hand vibegron 75 mg tablet (Gemtesa) 75 mg PO DAILY 01/31/25 06/20/25 02/21/25 History dextromethorphan-guaifenesin 10 10 ml PO QID PRN Cough 03/12/25 06/20/25 Unknown History mg-100 mg/5 mL oral liquid (Guaifenesin-DM) acetaminophen 500 mg tablet 500 mg PO Q4H PRN Pain 06/03/25 06/20/25 Unknown History diazepam 2 mg tablet (Valium) 2 mg PO NEEDED 06/03/25 06/20/25 Unknown History memantine 5 mg tablet 5 mg PO DAILY 06/03/25 06/20/25 Unknown History Physical Exam Vital Signs and Narrative: Vital Signs: Last Vital Signs Temp 97.3 F 06/23/25 16:25 Pulse 90 06/23/25 16:25 Resp 18 06/23/25 16:25 BP 139/74 06/23/25 16:25 Pulse Ox 98 06/23/25 16:25 O2 Del Method Room Air 06/23/25 16:25 BMI result Body Mass Index 24.7 CONST: Alert and confused, in NAD. Well nourished HEENT: Normocephalic, atraumatic, MMM RESP: Lungs clear, RRR even and regular HEART:,RRR, S1, S2. No edema GI:Abdomen Soft NT, ND. + BS times four :Deferred SKIN: Warm dry and intact, no visible lesions or rashes NEURO:CN II-XII Intact bilaterally, moving all extremities, Speech clear PSYCH: Flat affect, fatigued Results Labs 06/19/25 17:56 06/19/25 17:56 Assessment and Plan (1) Dementia with behavioral disturbance: Status: Acute Plan 69-year-old female with past medical history as listed above admitted to [facility] for mood stabilization after presenting with aggressive behavior, refusal of meds. Dementia with behavioral disturbances/bipolar disorder/anxiety Treatment per psychiatric team Iron deficiency anemia Continue iron 3 times weekly Hypothyroidism. Status post thyroid removal Continue levothyroxine 250 mcg daily Frequent UTIs/OAB Most recent UTI without evidence of infection Continue vitamin-C, Flomax, Gemtesa Recently treated for UTI 06/16- Avoid obtaining urine cultures unless patient displays symptoms specifically localize to urinary tract, evidence of infection including fever, tachycardia, symptoms of UTI. Dementia Continue Namenda and Aricept. Melatonin at bedtime Thank you for allowing me to participate in the care of this patient. Will follow as needed, please notify medical provider with any changes in condition or concerns.
[2025-06-24 20:00] VITALS: BP 139/78; PULSE 75; RESP 18; TEMP 36.2; O2SAT 99
[2025-06-25 08:00] VITALS: BP 132/75; PULSE 84; RESP 16; TEMP 36.4; O2SAT 97
[2025-06-25] MEDS: Aspirin Enteric Coated 81 MG TABLET.DR PO (08:44)
[2025-06-25] MEDS: Ferrous Sulfate 324 MG TABLET.DR PO (08:44)
[2025-06-25 11:07] LABS: Alanine Aminotransferase 19 U/L (0-31); Albumin Level 3.7 g/dL (3.5-5.0); Alkaline Phosphatase 131 U/L (39-117); Anion Gap 12 (12-20); Aspartate Amino Transferase 29 U/L (5-31); Blood Urea Nitrogen 31 mg/dL (9-16); Calcium 8.8 mg/dL (8.4-10.2); Carbon Dioxide 27 mmol/L (22-29); Chloride 109 mmol/L (96-108); Cholesterol 165 mg/dL (<200); Creatinine Clr Calc Pharmacy 50.1; Estimated Glomerular Filt Rate > 60; HDL Cholesterol 59 mg/dL (>40); Potassium 4.5 mmol/L (3.3-5.1); Sodium 143 mmol/L (135-145); Total Protein 7.1 g/dL (6.5-8.0); Triglycerides 49 mg/dL (<150)
[2025-06-25 11:11] LABS: Carbamazepine Tegretol 3.3 mcg/mL (5.0-12.0)
[2025-06-25 11:23] LABS: Thyroid Stimulating Hormone 1.02 uIU/mL (0.32-4.0)
[2025-06-25 11:37] LABS: Folate 16.3 ng/mL (> or = 4.0); Vitamin B12 491 pg/mL (200-900)
[2025-06-25] MEDS: OLANZapine ODT 10 MG TAB.RAPDIS TRANSLINGU (16:57)
--- NOTE | 2025-06-25 17:20 | HO.PSYCHPN ---
Subjective Subjective Date of Service: 06/25/25 Reason For Visit: Combative Behaviors Subjective Notes: Conditional Voluntary Healthcare Proxy: Yes Interim History: Pt slept through the night. She continues to present as irritable, explosive, yelling at staff reporting I am not staying here, I am leaving!! Limited interaction as increase agitation as she demanded to leave. She is taking medications as prescribed. irritable, and although no aggression towards others, seems close to becoming more combative. Medication Compliance: Yes Review of Systems Review of Systems Limited due to mental status Yes all other systems are reviewed and are negative Mental Status Exam Mental Status Exam Narrative: Appearance: wearing casual clothing, goos hygiene, in NAD Behavior: hostile Psychomotor: agitation Speech: mumbles, difficult to understand at times, spontaneous TP: wanting to go home TC: wanting to go home, profanities to staff. Mood: let me go Affect: irritable, agitated SI: denies HI: denies VH/AH: no signs Delusions: no overt delusions Insight/judgment: impaired x2 alert, oriented to hospital, not so much to situation Diagnostics Vital Signs (24Hr): Vital Signs - 24 hr 06/24/25 20:00 06/25/25 08:00 Temperature 97.1 F 97.5 F Pulse Rate 75 84 Respiratory Rate 18 16 Blood Pressure 139/78 132/75 Pulse Oximetry 99 97 Oxygen Delivery Method Room Air Room Air BMI result Body Mass Index 24.7 Labs 06/19/25 17:56 06/25/25 10:24 Labs: Laboratory Results - last 48 hr 06/25/25 10:24 Sodium 143 Potassium 4.5 Chloride 109 H Carbon Dioxide 27 Anion Gap 12 BUN 31 H Creatinine 0.90 Estim Creat Clear Calc 50.1 Estimated GFR > 60 Random Glucose 113 Estimat Average Glucose 108 Hemoglobin A1c % 5.4 Calcium 8.8 Total Bilirubin 0.2 AST 29 ALT 19 Alkaline Phosphatase 131 H Total Protein 7.1 Albumin 3.7 Triglycerides 49 Cholesterol 165 LDL Cholesterol, Calc 97 HDL Cholesterol 59 Vitamin B12 491 Folate 16.3 TSH 1.02 Carbamazepine 3.3 L* Medications Medications Current Medications Acetaminophen (Acetaminophen 325 Mg Tablet) 650 mg PO Q4H PRN PRN Reason: Pain Al Hydroxide/Mg Hydroxide (Magnesium Hydrox/Alum Hydrox 30 Ml Oral.Susp) 30 ml PO Q6H PRN PRN Reason: Heartburn/Nausea Ascorbic Acid (Ascorbic Acid 500 Mg Tablet) 500 mg PO BID [facility] Last Admin: 06/25/25 08:45 Dose: 500 mg Aspirin (Aspirin Enteric Coated 81 Mg Tablet.) 81 mg PO DAILY [facility] Last Admin: 06/25/25 08:44 Dose: 81 mg Betamethasone Dipropion Augmented (Betamethasone Dip Aug 0.05% Cr 15 Gm Tube) 1 appl TOPICAL BID PRN PRN Reason: Dry areas on hand Diazepam (Diazepam 2 Mg Tablet) 2 mg PO DAILY PRN PRN Reason: Anxiety Last Admin: 06/23/25 18:00 Dose: 2 mg Diazepam (Diazepam 2 Mg Tablet) 2 mg PO TID [facility] Last Admin: 06/25/25 14:25 Dose: 2 mg Divalproex Sodium (Divalproex Sodium 500 Mg Tablet.) 500 mg PO BID [facility] Docusate Sodium (Docusate Sodium 100 Mg Capsule) 100 mg PO BID [facility] Last Admin: 06/25/25 08:45 Dose: 100 mg Donepezil HCl (Donepezil Hcl 5 Mg Tablet) 5 mg PO BEDTIME [facility] Last Admin: 06/24/25 20:35 Dose: 5 mg Ferrous Sulfate (Ferrous Sulfate 324 Mg Tablet.) 324 mg PO MOWEFR@0900 [facility] Last Admin: 06/25/25 08:44 Dose: 324 mg Fluticasone Propionate (Fluticasone Propionate Nasal 16 Gm [place]) 1 spray NOSTRIL-B BID PRN PRN Reason: Nasal Congestion Guaifenesin/Dextromethorphan (Guaifenesin Dm 100/10/5 Ml 5 Ml Syrup) 10 ml PO QID PRN PRN Reason: Cough Hydroxyzine HCl (Hydroxyzine Hcl 25 Mg Tablet) 25 mg PO Q6H PRN PRN Reason: mild anxiety Last Admin: 06/23/25 18:00 Dose: 25 mg Levothyroxine Sodium (Levothyroxine Sodium 50 Mcg Tablet) 50 mcg PO 0630 [facility] Last Admin: 06/25/25 05:56 Dose: 50 mcg Levothyroxine Sodium (Levothyroxine Sodium 200 Mcg Tablet) 200 mcg PO 0630 [facility] Last Admin: 06/25/25 05:56 Dose: 200 mcg Loratadine (Loratadine 10 Mg Tablet) 10 mg PO DAILY [facility] Last Admin: 06/25/25 08:43 Dose: 10 mg Magnesium Hydroxide (Milk Of Magnesia 30 Ml Oral.Susp) 30 ml PO DAILY PRN PRN Reason: Constipation Melatonin (Melatonin 3 Mg Tablet) 9 mg PO BEDTIME [facility] Last Admin: 06/24/25 20:33 Dose: 9 mg Memantine (Memantine Hcl 5 Mg Tablet) 5 mg PO BID [facility] Last Admin: 06/25/25 08:45 Dose: 5 mg Multivitamins/Vitamin C (Multivitamin Tablet) 1 tab PO DAILY [facility] Last Admin: 06/25/25 08:45 Dose: 1 tab Non-Formulary Medication (Vibegron [Gemtesa]) 75 mg PO DAILY [facility] Nystatin (Nystatin Powder 15 Gm Bottle) 1 appl TOPICAL BID PRN; Protocol PRN Reason: Rash Olanzapine (Olanzapine Odt 10 Mg Tab.Rapdis) 10 mg TRANSLINGU Q6H PRN PRN Reason: agitation Last Admin: 06/25/25 16:57 Dose: 10 mg Quetiapine Fumarate (Quetiapine Fumarate 100 Mg Tablet) 100 mg PO DAILY@1200 [facility] Last Admin: 06/25/25 11:37 Dose: 100 mg Quetiapine Fumarate (Quetiapine Fumarate 200 Mg Tablet) 200 mg PO BID [facility] Last Admin: 06/25/25 08:43 Dose: 200 mg Senna (Sennosides 8.6 Mg Tablet) 8.6 mg PO Q48H [facility] Last Admin: 06/25/25 08:44 Dose: 8.6 mg Tamsulosin HCl (Tamsulosin Hcl 0.4 Mg Capsule) 0.4 mg PO DAILY [facility] Last Admin: 06/25/25 08:44 Dose: 0.4 mg Trazodone HCl (Trazodone Hcl 50 Mg Tablet) 50 mg PO BEDTIME MRX1 PRN PRN Reason: Insomnia Trazodone HCl (Trazodone Hcl 50 Mg Tablet) 150 mg PO BEDTIME [facility] Last Admin: 06/24/25 20:34 Dose: 150 mg Triamcinolone Acetonide (Triamcinolone Acet 0.1 % Oint 15 Gm Tube) 1 appl TOPICAL BID PRN PRN Reason: Skin Irritation Allergies Allergies Allergy/AdvReac Type Severity Reaction Status Date / Time adhesive tape Allergy Intermediate itching Verified 06/19/25 16:08 and skin redness latex Allergy Intermediate skin rash Verified 06/19/25 16:08 and itching Seasonal Allergies Allergy Itching Verified 06/19/25 16:08 weed pollen Allergy stuffy nose Verified 06/19/25 16:08 DUST Allergy Unknown ITCHY/WATERY Uncoded 06/19/25 16:08 EYES surgical paper tape Allergy Unknown rash Uncoded 06/19/25 16:08 Tide Allergy Unknown rash Uncoded 06/19/25 16:08 Assessment & Plan Assessment & Plan (1) Major neurocognitive disorder due to vascular disease, with behavioral disturbance, severe: Status: Acute Code(s): F01.C18 - Vascular dementia, severe, with other behavioral disturbance (2) Developmental delay, moderate: Status: Deleted Code(s): R62.50 - Unspecified lack of expected normal physiological development in childhood Plan Ms. Ronquillo is a 69 year-old woman with hx of developmental delay, vascular dementia who was brought via EMS due to increase aggression. Medical work up mostly unremarkable, except for TSH 22, free T4 1.22. She is on levothyroxine, unclear if taking it as prescribed. This telegraphic typewriter installer spoke with pt's psychiatric provider, Tammy Randall who reports she has been adjusting dose of seroquel. She has been on carbamazepine for a long time for mood stabilization- will check level. Will add diazepam for impulsive/explosive behaviors. PLAN 1. Admit to S1, Sect 12b, 15 minutes checks 2. will switch carbamazepine to depakote- as carbamazepine may be interacting with other medications and may not be as effective managing impulsive/explosive behaviors. 3. continue for now seroquel, but may consider changing antipsychotic medication as well. 4. obtain collateral information 5. aftercare planning. 06/25 continue to present as agitated, combative. increase depakote to 500mg po BID. continue seroquel for now but may also consider switching antipsychotics as well. Reason for continued inpatient stay Substantial Risk for: inability to function Time Spent With Patient Time: Total time managing care of this patient today ____ minutes.
--- NOTE | 2025-06-25 17:28 | PC.NURSE ---
Addendum entered by Alanis Clement RN 06/25/25 17:42: pharmacy sent med back with pt label. placed in pt specific bin. belongings list updated Original Note: at ~1715 retirement staff brought in blister pack of Gemtesa 75mg tabs for this pt. 28 tabs total. Pharmacy paperwork filled out by this RN and [facility]. Brought to pharmacy by [facility]
[2025-06-25 20:00] VITALS: BP 114/53; PULSE 95; RESP 18; TEMP 36.4; O2SAT 96
[2025-06-26 08:00] VITALS: BP 124/58; PULSE 63; RESP 20; TEMP 36.6; O2SAT 99
[2025-06-26] MEDS: Aspirin Enteric Coated 81 MG TABLET.DR PO (09:18)
[2025-06-26] MEDS: PT OWN (Vibegron [Gemtesa] 75 mg tablet) 75 EACH PO (09:19)
--- NOTE | 2025-06-26 09:45 | HO.PSYCHPN ---
Subjective Subjective Date of Service: 06/26/25 Reason For Visit: Combative Behaviors Subjective Notes: Conditional Voluntary Healthcare Proxy: Yes Interim History: Pt slept through the night. She was irritable and hostile during the day, yelling at nursing and staff demanding to let her go. She receive olanzapine and diazepam with good effect. She is taking medications for the most part as prescribed. Some mild bilat tremors noted. Medication Compliance: Yes Review of Systems Review of Systems Limited due to mental status Yes all other systems are reviewed and are negative Mental Status Exam Mental Status Exam Narrative: Appearance: wearing casual clothing, goos hygiene, in NAD Behavior: hostile Psychomotor: agitation Speech: mumbles, difficult to understand at times, spontaneous TP: wanting to go home TC: wanting to go home, profanities to staff. Mood: let me go Affect: irritable, agitated SI: denies HI: denies VH/AH: no signs Delusions: no overt delusions Insight/judgment: impaired x2 alert, oriented to hospital, not so much to situation Diagnostics Vital Signs (24Hr): Vital Signs - 24 hr 06/25/25 20:00 06/26/25 08:00 Temperature 97.5 F 97.9 F Pulse Rate 95 63 Respiratory Rate 18 20 Blood Pressure 114/53 L 124/58 L Pulse Oximetry 96 99 Oxygen Delivery Method Room Air Room Air BMI result Body Mass Index 24.7 Labs 06/19/25 17:56 06/25/25 10:24 Labs: Laboratory Results - last 48 hr 06/25/25 10:24 Sodium 143 Potassium 4.5 Chloride 109 H Carbon Dioxide 27 Anion Gap 12 BUN 31 H Creatinine 0.90 Estim Creat Clear Calc 50.1 Estimated GFR > 60 Random Glucose 113 Estimat Average Glucose 108 Hemoglobin A1c % 5.4 Calcium 8.8 Total Bilirubin 0.2 AST 29 ALT 19 Alkaline Phosphatase 131 H Total Protein 7.1 Albumin 3.7 Triglycerides 49 Cholesterol 165 LDL Cholesterol, Calc 97 HDL Cholesterol 59 Vitamin B12 491 Folate 16.3 TSH 1.02 Carbamazepine 3.3 L* Medications Medications Current Medications Acetaminophen (Acetaminophen 325 Mg Tablet) 650 mg PO Q4H PRN PRN Reason: Pain Last Admin: 06/25/25 20:38 Dose: 650 mg Al Hydroxide/Mg Hydroxide (Magnesium Hydrox/Alum Hydrox 30 Ml Oral.Susp) 30 ml PO Q6H PRN PRN Reason: Heartburn/Nausea Ascorbic Acid (Ascorbic Acid 500 Mg Tablet) 500 mg PO BID [facility] Last Admin: 06/26/25 09:18 Dose: 500 mg Aspirin (Aspirin Enteric Coated 81 Mg Tablet.) 81 mg PO DAILY [facility] Last Admin: 06/26/25 09:18 Dose: 81 mg Betamethasone Dipropion Augmented (Betamethasone Dip Aug 0.05% Cr 15 Gm Tube) 1 appl TOPICAL BID PRN PRN Reason: Dry areas on hand Diazepam (Diazepam 2 Mg Tablet) 2 mg PO DAILY PRN PRN Reason: Anxiety Last Admin: 06/25/25 17:46 Dose: 2 mg Diazepam (Diazepam 2 Mg Tablet) 2 mg PO TID [facility] Last Admin: 06/26/25 09:18 Dose: 2 mg Divalproex Sodium (Divalproex Sodium 500 Mg Tablet.) 500 mg PO BID [facility] Last Admin: 06/26/25 09:18 Dose: 500 mg Docusate Sodium (Docusate Sodium 100 Mg Capsule) 100 mg PO BID [facility] Last Admin: 06/26/25 09:18 Dose: 100 mg Donepezil HCl (Donepezil Hcl 5 Mg Tablet) 5 mg PO BEDTIME [facility] Last Admin: 06/25/25 20:38 Dose: 5 mg Ferrous Sulfate (Ferrous Sulfate 324 Mg Tablet.) 324 mg PO MOWEFR@0900 [facility] Last Admin: 06/25/25 08:44 Dose: 324 mg Fluticasone Propionate (Fluticasone Propionate Nasal 16 Gm [place]) 1 spray NOSTRIL-B BID PRN PRN Reason: Nasal Congestion Guaifenesin/Dextromethorphan (Guaifenesin Dm 100/10/5 Ml 5 Ml Syrup) 10 ml PO QID PRN PRN Reason: Cough Hydroxyzine HCl (Hydroxyzine Hcl 25 Mg Tablet) 25 mg PO Q6H PRN PRN Reason: mild anxiety Last Admin: 06/23/25 18:00 Dose: 25 mg Levothyroxine Sodium (Levothyroxine Sodium 50 Mcg Tablet) 50 mcg PO 0630 [facility] Last Admin: 06/26/25 05:45 Dose: 50 mcg Levothyroxine Sodium (Levothyroxine Sodium 200 Mcg Tablet) 200 mcg PO 0630 [facility] Last Admin: 06/26/25 05:45 Dose: 200 mcg Loratadine (Loratadine 10 Mg Tablet) 10 mg PO DAILY [facility] Last Admin: 06/26/25 09:18 Dose: 10 mg Magnesium Hydroxide (Milk Of Magnesia 30 Ml Oral.Susp) 30 ml PO DAILY PRN PRN Reason: Constipation Melatonin (Melatonin 3 Mg Tablet) 9 mg PO BEDTIME [facility] Last Admin: 06/25/25 20:38 Dose: 9 mg Memantine (Memantine Hcl 5 Mg Tablet) 5 mg PO BID [facility] Last Admin: 06/26/25 09:18 Dose: 5 mg Multivitamins/Vitamin C (Multivitamin Tablet) 1 tab PO DAILY [facility] Last Admin: 06/26/25 09:18 Dose: 1 tab Pt Own (Vibegron [ Gemtesa] 75 Mg Tablet) 75 mg PO DAILY [facility] Last Admin: 06/26/25 09:19 Dose: 75 mg Nystatin (Nystatin Powder 15 Gm Bottle) 1 appl TOPICAL BID PRN; Protocol PRN Reason: Rash Olanzapine (Olanzapine Odt 10 Mg Tab.Rapdis) 10 mg TRANSLINGU Q6H PRN PRN Reason: agitation Last Admin: 06/25/25 16:57 Dose: 10 mg Quetiapine Fumarate (Quetiapine Fumarate 100 Mg Tablet) 100 mg PO DAILY@1200 [facility] Last Admin: 06/25/25 11:37 Dose: 100 mg Quetiapine Fumarate (Quetiapine Fumarate 200 Mg Tablet) 200 mg PO BID [facility] Last Admin: 06/26/25 09:17 Dose: 200 mg Senna (Sennosides 8.6 Mg Tablet) 8.6 mg PO Q48H [facility] Last Admin: 06/25/25 08:44 Dose: 8.6 mg Tamsulosin HCl (Tamsulosin Hcl 0.4 Mg Capsule) 0.4 mg PO DAILY [facility] Last Admin: 06/26/25 09:17 Dose: 0.4 mg Trazodone HCl (Trazodone Hcl 50 Mg Tablet) 50 mg PO BEDTIME MRX1 PRN PRN Reason: Insomnia Trazodone HCl (Trazodone Hcl 50 Mg Tablet) 150 mg PO BEDTIME [facility] Last Admin: 06/25/25 20:38 Dose: 150 mg Triamcinolone Acetonide (Triamcinolone Acet 0.1 % Oint 15 Gm Tube) 1 appl TOPICAL BID PRN PRN Reason: Skin Irritation Allergies Allergies Allergy/AdvReac Type Severity Reaction Status Date / Time adhesive tape Allergy Intermediate itching Verified 06/19/25 16:08 and skin redness latex Allergy Intermediate skin rash Verified 06/19/25 16:08 and itching Seasonal Allergies Allergy Itching Verified 06/19/25 16:08 weed pollen Allergy stuffy nose Verified 06/19/25 16:08 DUST Allergy Unknown ITCHY/WATERY Uncoded 06/19/25 16:08 EYES surgical paper tape Allergy Unknown rash Uncoded 06/19/25 16:08 Tide Allergy Unknown rash Uncoded 06/19/25 16:08 Assessment & Plan Assessment & Plan (1) Major neurocognitive disorder due to vascular disease, with behavioral disturbance, severe: Status: Acute Code(s): F01.C18 - Vascular dementia, severe, with other behavioral disturbance (2) Developmental delay, moderate: Status: Deleted Code(s): R62.50 - Unspecified lack of expected normal physiological development in childhood Plan Ms. Ronquillo is a 69 year-old woman with hx of developmental delay, vascular dementia who was brought via EMS due to increase aggression. Medical work up mostly unremarkable, except for TSH 22, free T4 1.22. She is on levothyroxine, unclear if taking it as prescribed. This sql report writer spoke with pt's psychiatric provider, Tammy Randall who reports she has been adjusting dose of seroquel. She has been on carbamazepine for a long time for mood stabilization- will check level. Will add diazepam for impulsive/explosive behaviors. PLAN 1. Admit to S1, Sect 12b, 15 minutes checks 2. will switch carbamazepine to depakote- as carbamazepine may be interacting with other medications and may not be as effective managing impulsive/explosive behaviors. 3. continue for now seroquel, but may consider changing antipsychotic medication as well. 4. obtain collateral information 5. aftercare planning. 06/25 continue to present as agitated, combative. increase depakote to 500mg po BID. continue seroquel for now but may also consider switching antipsychotics as well. 06/26 continue tx. Reason for continued inpatient stay Substantial Risk for: inability to function Time Spent With Patient Time: Total time managing care of this patient today ____ minutes.
[2025-06-26] MEDS: OLANZapine ODT 10 MG TAB.RAPDIS TRANSLINGU (13:21)
[2025-06-26 20:00] VITALS: BP 152/75; PULSE 64; RESP 18; TEMP 36; O2SAT 95
[2025-06-27 08:00] VITALS: BP 148/72; PULSE 78; RESP 16; TEMP 36.2; O2SAT 96
[2025-06-27] MEDS: PT OWN (Vibegron [Gemtesa] 75 mg tablet) 75 EACH PO (08:16)
[2025-06-27] MEDS: Aspirin Enteric Coated 81 MG TABLET.DR PO (08:18)
[2025-06-27] MEDS: Ferrous Sulfate 324 MG TABLET.DR PO (08:18)
--- NOTE | 2025-06-27 16:43 | P.PNPSI_ITS ---
Subjective Subjective Date of Service: 06/27/25 Reason For Visit: Combative Behaviors Subjective Notes: Conditional Voluntary Healthcare Proxy: Yes Interim History: Pt slept through the night. She was calmer today. Not yelling at staff and much less hostile. She had asked to speak with this financial underwriter but later reported she had not questions. She reports doing well. No noted side effects. She ambulates with walker. Noted resting tremor bilat. Medication Compliance: Yes Review of Systems Review of Systems Limited due to mental status Yes all other systems are reviewed and are negative Mental Status Exam Mental Status Exam Narrative: Appearance: wearing casual clothing, goos hygiene, in NAD Behavior: hostile Psychomotor: agitation Speech: mumbles, difficult to understand at times, spontaneous TP: wanting to go home TC: wanting to go home, profanities to staff. Mood: let me go Affect: irritable, agitated SI: denies HI: denies VH/AH: no signs Delusions: no overt delusions Insight/judgment: impaired x2 alert, oriented to hospital, not so much to situation Diagnostics Vital Signs (24Hr): Vital Signs - 24 hr 06/26/25 20:00 06/27/25 08:00 Temperature 96.8 F 97.2 F Pulse Rate 64 78 Respiratory Rate 18 16 Blood Pressure 152/75 H 148/72 H Pulse Oximetry 95 96 Oxygen Delivery Method Room Air Room Air BMI result Body Mass Index 24.7 Labs 06/19/25 17:56 06/25/25 10:24 Medications Medications Current Medications Acetaminophen (Acetaminophen 325 Mg Tablet) 650 mg PO Q4H PRN PRN Reason: Pain Last Admin: 06/25/25 20:38 Dose: 650 mg Al Hydroxide/Mg Hydroxide (Magnesium Hydrox/Alum Hydrox 30 Ml Oral.Susp) 30 ml PO Q6H PRN PRN Reason: Heartburn/Nausea Ascorbic Acid (Ascorbic Acid 500 Mg Tablet) 500 mg PO BID [facility] Last Admin: 06/27/25 08:18 Dose: 500 mg Aspirin (Aspirin Enteric Coated 81 Mg Tablet.) 81 mg PO DAILY [facility] Last Admin: 06/27/25 08:18 Dose: 81 mg Betamethasone Dipropion Augmented (Betamethasone Dip Aug 0.05% Cr 15 Gm Tube) 1 appl TOPICAL BID PRN PRN Reason: Dry areas on hand Diazepam (Diazepam 2 Mg Tablet) 2 mg PO DAILY PRN PRN Reason: Anxiety Last Admin: 06/25/25 17:46 Dose: 2 mg Diazepam (Diazepam 2 Mg Tablet) 2 mg PO TID [facility] Last Admin: 06/27/25 14:49 Dose: 2 mg Divalproex Sodium (Divalproex Sodium 500 Mg Tablet.Dr) 500 mg PO BID [facility] Last Admin: 06/27/25 08:19 Dose: 500 mg Docusate Sodium (Docusate Sodium 100 Mg Capsule) 100 mg PO BID [facility] Last Admin: 06/27/25 08:18 Dose: 100 mg Donepezil HCl (Donepezil Hcl 5 Mg Tablet) 5 mg PO BEDTIME [facility] Last Admin: 06/26/25 20:23 Dose: 5 mg Ferrous Sulfate (Ferrous Sulfate 324 Mg Tablet.) 324 mg PO MOWEFR@0900 [facility] Last Admin: 06/27/25 08:18 Dose: 324 mg Fluticasone Propionate (Fluticasone Propionate Nasal 16 Gm [place]) 1 spray NOSTRIL-B BID PRN PRN Reason: Nasal Congestion Guaifenesin/Dextromethorphan (Guaifenesin Dm 100/10/5 Ml 5 Ml Syrup) 10 ml PO QID PRN PRN Reason: Cough Hydroxyzine HCl (Hydroxyzine Hcl 25 Mg Tablet) 25 mg PO Q6H PRN PRN Reason: mild anxiety Last Admin: 06/23/25 18:00 Dose: 25 mg Levothyroxine Sodium (Levothyroxine Sodium 50 Mcg Tablet) 50 mcg PO 0630 [facility] Last Admin: 06/27/25 08:19 Dose: 50 mcg Levothyroxine Sodium (Levothyroxine Sodium 200 Mcg Tablet) 200 mcg PO 0630 [facility] Last Admin: 06/27/25 08:18 Dose: 200 mcg Loratadine (Loratadine 10 Mg Tablet) 10 mg PO DAILY [facility] Last Admin: 06/27/25 08:18 Dose: 10 mg Magnesium Hydroxide (Milk Of Magnesia 30 Ml Oral.Susp) 30 ml PO DAILY PRN PRN Reason: Constipation Melatonin (Melatonin 3 Mg Tablet) 9 mg PO BEDTIME [facility] Last Admin: 06/26/25 20:21 Dose: 9 mg Memantine (Memantine Hcl 5 Mg Tablet) 5 mg PO BID [facility] Last Admin: 06/27/25 08:18 Dose: 5 mg Multivitamins/Vitamin C (Multivitamin Tablet) 1 tab PO DAILY [facility] Last Admin: 06/27/25 08:19 Dose: 1 tab Pt Own (Vibegron [ Gemtesa] 75 Mg Tablet) 75 mg PO DAILY [facility] Last Admin: 06/27/25 08:16 Dose: 75 mg Nystatin (Nystatin Powder 15 Gm Bottle) 1 appl TOPICAL BID PRN; Protocol PRN Reason: Rash Olanzapine (Olanzapine Odt 10 Mg Tab.Rapdis) 10 mg TRANSLINGU Q6H PRN PRN Reason: agitation Last Admin: 06/25/25 16:57 Dose: 10 mg Quetiapine Fumarate (Quetiapine Fumarate 200 Mg Tablet) 200 mg PO BID [facility] Last Admin: 06/27/25 08:18 Dose: 200 mg Quetiapine Fumarate (Quetiapine Fumarate 200 Mg Tablet) 200 mg PO DAILY@1200 [facility] Last Admin: 06/27/25 11:45 Dose: 200 mg Senna (Sennosides 8.6 Mg Tablet) 8.6 mg PO Q48H [facility] Last Admin: 06/27/25 08:19 Dose: 8.6 mg Tamsulosin HCl (Tamsulosin Hcl 0.4 Mg Capsule) 0.4 mg PO DAILY [facility] Last Admin: 06/27/25 08:18 Dose: 0.4 mg Trazodone HCl (Trazodone Hcl 50 Mg Tablet) 50 mg PO BEDTIME [id number] PRN PRN Reason: Insomnia Trazodone HCl (Trazodone Hcl 50 Mg Tablet) 150 mg PO BEDTIME [facility] Last Admin: 06/26/25 20:20 Dose: 150 mg Triamcinolone Acetonide (Triamcinolone Acet 0.1 % Oint 15 Gm Tube) 1 appl TOPICAL BID PRN PRN Reason: Skin Irritation Allergies Allergies Allergy/AdvReac Type Severity Reaction Status Date / Time adhesive tape Allergy Intermediate itching Verified 06/19/25 16:08 and skin redness latex Allergy Intermediate skin rash Verified 06/19/25 16:08 and itching Seasonal Allergies Allergy Itching Verified 06/19/25 16:08 weed pollen Allergy stuffy nose Verified 06/19/25 16:08 DUST Allergy Unknown ITCHY/WATERY Uncoded 06/19/25 16:08 EYES surgical paper tape Allergy Unknown rash Uncoded 06/19/25 16:08 Tide Allergy Unknown rash Uncoded 06/19/25 16:08 Assessment & Plan Assessment & Plan (1) Major neurocognitive disorder due to vascular disease, with behavioral disturbance, severe: Status: Acute Code(s): F01.C18 - Vascular dementia, severe, with other behavioral disturbance (2) Developmental delay, moderate: Status: Deleted Code(s): R62.50 - Unspecified lack of expected normal physiological development in childhood Plan Ms. Ronquillo is a 69 year-old woman with hx of developmental delay, vascular dementia who was brought via EMS due to increase aggression. Medical work up mostly unremarkable, except for TSH 22, free T4 1.22. She is on levothyroxine, unclear if taking it as prescribed. This financial underwriter spoke with pt's psychiatric provider, Tammy Randall who reports she has been adjusting dose of seroquel. She has been on carbamazepine for a long time for mood stabilization- will check level. Will add diazepam for impulsive/explosive behaviors. PLAN 1. Admit to S1, Sect 12b, 15 minutes checks 2. will switch carbamazepine to depakote- as carbamazepine may be interacting with other medications and may not be as effective managing impulsive/explosive behaviors. 3. continue for now seroquel, but may consider changing antipsychotic medication as well. 4. obtain collateral information 5. aftercare planning. 06/25 continue to present as agitated, combative. increase depakote to 500mg po BID. continue seroquel for now but may also consider switching antipsychotics as well. 06/26 continue tx. 06/27 continue current medications, will check depakote level on Monday. Reason for continued inpatient stay Substantial Risk for: inability to function Time Spent With Patient Time: Total time managing care of this patient today ____ minutes.
[2025-06-27 20:00] VITALS: BP 131/66; PULSE 76; RESP 18; TEMP 36.6; O2SAT 97
[2025-06-28 08:00] VITALS: BP 113/63; PULSE 71; RESP 16; TEMP 37.2; O2SAT 96
[2025-06-28] MEDS: Aspirin Enteric Coated 81 MG TABLET.DR PO (08:51)
[2025-06-28] MEDS: PT OWN (Vibegron [Gemtesa] 75 mg tablet) 75 EACH PO (08:51)
--- NOTE | 2025-06-28 12:43 | PC.NURSE ---
Medicated with Diazepam 2 mg at 1235 due to agitation. Will continue to monitor.
--- NOTE | 2025-06-28 14:07 | P.PNPSI_ITS ---
Subjective Subjective Date of Service: 06/28/25 Reason For Visit: Combative Behaviors Subjective Notes: Conditional Voluntary Interim History: 69 yo with developmental delay and irritability - who had IM olanzapine and diazepam yesterday and was calmer, again back to agitating - some mild sedation after am diazepam but easily awakens when provider goes in to talk to patient- says I want to go home when pointed out to patient that when she was home she reported wanting to be out of there- Then patient used explitive toward provider- who left room to prevent further agita- on depakote , and getting prn ativan with mild effect seems like best effect was yesterday post IM olanzapine/diazepam Medication Compliance: Intermittent Side effects from medications: Yes (mild sedation) Attending Groups: Intermittent Review of Systems Acute medical concerns: No Medical Review of Systems: unchanged Mental Status Exam Mental Status Exam Patient Appearance: Disheveled and Unkempt Patient Orientation: Person Level of Consciousness: Drowsy Patient Behavior: Swearing and Resistive to Care Mood Description: Angry Affect Description: Labile Patient Cognition Impaired: Yes Ability to Follow Directions: Poor Speech Pattern: Garbled Thought Process: Goal Oriented Thought Content: positive for Perseveration (on wanting to leave where ever she is) Judgement: Poor Diagnostics Vital Signs (24Hr): Vital Signs - 24 hr 06/27/25 20:00 06/28/25 08:00 Temperature 97.9 F 98.9 F Pulse Rate 76 71 Respiratory Rate 18 16 Blood Pressure 131/66 113/63 Pulse Oximetry 97 96 Oxygen Delivery Method Room Air Room Air BMI result Body Mass Index 24.7 Labs 06/19/25 17:56 06/25/25 10:24 Medications Medications Current Medications Acetaminophen (Acetaminophen 325 Mg Tablet) 650 mg PO Q4H PRN PRN Reason: Pain Last Admin: 06/25/25 20:38 Dose: 650 mg Al Hydroxide/Mg Hydroxide (Magnesium Hydrox/Alum Hydrox 30 Ml Oral.Susp) 30 ml PO Q6H PRN PRN Reason: Heartburn/Nausea Ascorbic Acid (Ascorbic Acid 500 Mg Tablet) 500 mg PO BID [facility] Last Admin: 06/28/25 08:51 Dose: 500 mg Aspirin (Aspirin Enteric Coated 81 Mg Tablet.) 81 mg PO DAILY [facility] Last Admin: 06/28/25 08:51 Dose: 81 mg Betamethasone Dipropion Augmented (Betamethasone Dip Aug 0.05% Cr 15 Gm Tube) 1 appl TOPICAL BID PRN PRN Reason: Dry areas on hand Diazepam (Diazepam 2 Mg Tablet) 2 mg PO DAILY PRN PRN Reason: Anxiety Last Admin: 06/25/25 17:46 Dose: 2 mg Diazepam (Diazepam 2 Mg Tablet) 2 mg PO TID [facility] Last Admin: 06/28/25 08:51 Dose: 2 mg Divalproex Sodium (Divalproex Sodium 500 Mg Tablet.) 500 mg PO BID [facility] Last Admin: 06/28/25 08:51 Dose: 500 mg Docusate Sodium (Docusate Sodium 100 Mg Capsule) 100 mg PO BID [facility] Last Admin: 06/28/25 08:51 Dose: 100 mg Donepezil HCl (Donepezil Hcl 5 Mg Tablet) 5 mg PO BEDTIME [facility] Last Admin: 06/27/25 21:10 Dose: 5 mg Ferrous Sulfate (Ferrous Sulfate 324 Mg Tablet.) 324 mg PO MOWEFR@0900 [facility] Last Admin: 06/27/25 08:18 Dose: 324 mg Fluticasone Propionate (Fluticasone Propionate Nasal 16 Gm [place]) 1 spray NOSTRIL-B BID PRN PRN Reason: Nasal Congestion Guaifenesin/Dextromethorphan (Guaifenesin Dm 100/10/5 Ml 5 Ml Syrup) 10 ml PO QID PRN PRN Reason: Cough Hydroxyzine HCl (Hydroxyzine Hcl 25 Mg Tablet) 25 mg PO Q6H PRN PRN Reason: mild anxiety Last Admin: 06/23/25 18:00 Dose: 25 mg Levothyroxine Sodium (Levothyroxine Sodium 50 Mcg Tablet) 50 mcg PO 0630 [facility] Last Admin: 06/28/25 06:55 Dose: 50 mcg Levothyroxine Sodium (Levothyroxine Sodium 200 Mcg Tablet) 200 mcg PO 0630 [facility] Last Admin: 06/28/25 06:55 Dose: 200 mcg Loratadine (Loratadine 10 Mg Tablet) 10 mg PO DAILY [facility] Last Admin: 06/28/25 08:51 Dose: 10 mg Magnesium Hydroxide (Milk Of Magnesia 30 Ml Oral.Susp) 30 ml PO DAILY PRN PRN Reason: Constipation Melatonin (Melatonin 3 Mg Tablet) 9 mg PO BEDTIME [facility] Last Admin: 06/27/25 21:10 Dose: 9 mg Memantine (Memantine Hcl 5 Mg Tablet) 5 mg PO BID [facility] Last Admin: 06/28/25 08:51 Dose: 5 mg Multivitamins/Vitamin C (Multivitamin Tablet) 1 tab PO DAILY [facility] Last Admin: 06/28/25 08:51 Dose: 1 tab Pt Own (Vibegron [ Gemtesa] 75 Mg Tablet) 75 mg PO DAILY [facility] Last Admin: 06/28/25 08:51 Dose: 75 mg Nystatin (Nystatin Powder 15 Gm Bottle) 1 appl TOPICAL BID PRN; Protocol PRN Reason: Rash Olanzapine (Olanzapine Odt 10 Mg Tab.Rapdis) 10 mg TRANSLINGU Q6H PRN PRN Reason: agitation Last Admin: 06/25/25 16:57 Dose: 10 mg Quetiapine Fumarate (Quetiapine Fumarate 200 Mg Tablet) 200 mg PO BID [facility] Last Admin: 06/28/25 08:51 Dose: 200 mg Quetiapine Fumarate (Quetiapine Fumarate 200 Mg Tablet) 200 mg PO DAILY@1200 [facility] Last Admin: 06/28/25 11:16 Dose: 200 mg Senna (Sennosides 8.6 Mg Tablet) 8.6 mg PO Q48H [facility] Last Admin: 06/27/25 08:19 Dose: 8.6 mg Tamsulosin HCl (Tamsulosin Hcl 0.4 Mg Capsule) 0.4 mg PO DAILY [facility] Last Admin: 06/28/25 08:51 Dose: 0.4 mg Trazodone HCl (Trazodone Hcl 50 Mg Tablet) 50 mg PO BEDTIME MRX1 PRN PRN Reason: Insomnia Trazodone HCl (Trazodone Hcl 50 Mg Tablet) 150 mg PO BEDTIME [facility] Last Admin: 06/27/25 21:10 Dose: 150 mg Triamcinolone Acetonide (Triamcinolone Acet 0.1 % Oint 15 Gm Tube) 1 appl TOPICAL BID PRN PRN Reason: Skin Irritation Allergies Allergies Allergy/AdvReac Type Severity Reaction Status Date / Time adhesive tape Allergy Intermediate itching Verified 06/19/25 16:08 and skin redness latex Allergy Intermediate skin rash Verified 06/19/25 16:08 and itching Seasonal Allergies Allergy Itching Verified 06/19/25 16:08 weed pollen Allergy stuffy nose Verified 06/19/25 16:08 DUST Allergy Unknown ITCHY/WATERY Uncoded 06/19/25 16:08 EYES surgical paper tape Allergy Unknown rash Uncoded 06/19/25 16:08 Tide Allergy Unknown rash Uncoded 06/19/25 16:08 Assessment & Plan Assessment & Plan (1) Major neurocognitive disorder due to vascular disease, with behavioral disturbance, severe: Status: Acute Code(s): F01.C18 - Vascular dementia, severe, with other behavioral disturbance (2) Developmental delay, moderate: Status: Deleted Code(s): R62.50 - Unspecified lack of expected normal physiological development in childhood Plan Ms. Ronquillo is a 69 year-old woman with hx of developmental delay, vascular dementia who was brought via EMS due to increase aggression. Medical work up mostly unremarkable, except for TSH 22, free T4 1.22. She is on levothyroxine, unclear if taking it as prescribed. This junior copywriter spoke with pt's psychiatric provider, Tammy Randall who reports she has been adjusting dose of seroquel. She has been on carbamazepine for a long time for mood stabilization- will check level. Will add diazepam for impulsive/explosive behaviors. PLAN 1. Admit to S1, Sect 12b, 15 minutes checks 2. will switch carbamazepine to depakote- as carbamazepine may be interacting with other medications and may not be as effective managing impulsive/explosive behaviors. 3. continue for now seroquel, but may consider changing antipsychotic medication as well. 4. obtain collateral information 5. aftercare planning. 06/25 continue to present as agitated, combative. increase depakote to 500mg po BID. continue seroquel for now but may also consider switching antipsychotics as well. 06/26 continue tx. 06/27 continue current medications, will check depakote level on Monday. 06/28 added olanzapine 10mg at night- I see she has seroquel but seems like not adequate and depakote not making substantial gain as yet olanzapine can be discontinued after more stable on depakote- Informed Consent: does not understand Reason for continued inpatient stay Substantial Risk for: inability to function and rapid decompensation Time Spent With Patient Time: Total time managing care of this patient today ____ minutes.
[2025-06-28] MEDS: OLANZapine ODT 10 MG TAB.RAPDIS TRANSLINGU (15:35)
[2025-06-28 20:00] VITALS: BP 123/60; PULSE 77; RESP 18; TEMP 36.8; O2SAT 95
--- NOTE | 2025-06-29 07:22 | P.PNPSI_ITS ---
Subjective Subjective Date of Service: 06/29/25 Reason For Visit: Combative Behaviors Subjective Notes: Conditional Voluntary Interim History: 69 yo who wants to go home, nursing reports pt has own tv in her room at her house- More re-directable today- responds to prns- on olanzapine addition with fair effect- less loud less intrussive/aggressive about wish to go home- though continues to perseverate Medication Compliance: Yes Side effects from medications: No Review of Systems Acute medical concerns: No Medical Review of Systems: unchanged Mental Status Exam Mental Status Exam Patient Appearance: Appropriate Patient Orientation: Person and Place Level of Consciousness: Awake Patient Behavior: Restless, Wandering, Resistive to Care and Combative (mildly today) Behavior Comments: less swearing, less yelling- Mood Description: Angry Affect Description: Blunted Patient Cognition Impaired: Yes Ability to Follow Directions: Fair Speech Pattern: Garbled (I think this is pt baseline speech, ) Thought Process: Rumination Thought Content: positive for Perseveration and positive for Poverty of Content Judgement: Poor Diagnostics Vital Signs (24Hr): Vital Signs - 24 hr 06/28/25 08:00 06/28/25 20:00 Temperature 98.9 F 98.3 F Pulse Rate 71 77 Respiratory Rate 16 18 Blood Pressure 113/63 123/60 Pulse Oximetry 96 95 Oxygen Delivery Method Room Air Room Air BMI result Body Mass Index 24.7 Labs 06/19/25 17:56 06/25/25 10:24 Medications Medications Current Medications Acetaminophen (Acetaminophen 325 Mg Tablet) 650 mg PO Q4H PRN PRN Reason: Pain Last Admin: 06/25/25 20:38 Dose: 650 mg Al Hydroxide/Mg Hydroxide (Magnesium Hydrox/Alum Hydrox 30 Ml Oral.Susp) 30 ml PO Q6H PRN PRN Reason: Heartburn/Nausea Ascorbic Acid (Ascorbic Acid 500 Mg Tablet) 500 mg PO BID [facility] Last Admin: 06/28/25 20:37 Dose: 500 mg Aspirin (Aspirin Enteric Coated 81 Mg Tablet.) 81 mg PO DAILY [facility] Last Admin: 06/28/25 08:51 Dose: 81 mg Betamethasone Dipropion Augmented (Betamethasone Dip Aug 0.05% Cr 15 Gm Tube) 1 appl TOPICAL BID PRN PRN Reason: Dry areas on hand Diazepam (Diazepam 2 Mg Tablet) 2 mg PO DAILY PRN PRN Reason: Anxiety Last Admin: 06/28/25 12:40 Dose: 2 mg Diazepam (Diazepam 2 Mg Tablet) 2 mg PO TID [facility] Last Admin: 06/28/25 20:37 Dose: 2 mg Divalproex Sodium (Divalproex Sodium 500 Mg Tablet.) 500 mg PO BID [facility] Last Admin: 06/28/25 20:35 Dose: 500 mg Docusate Sodium (Docusate Sodium 100 Mg Capsule) 100 mg PO BID [facility] Last Admin: 06/28/25 20:36 Dose: 100 mg Donepezil HCl (Donepezil Hcl 5 Mg Tablet) 5 mg PO BEDTIME [facility] Last Admin: 06/28/25 20:37 Dose: 5 mg Ferrous Sulfate (Ferrous Sulfate 324 Mg Tablet.) 324 mg PO MOWEFR@0900 [facility] Last Admin: 06/27/25 08:18 Dose: 324 mg Fluticasone Propionate (Fluticasone Propionate Nasal 16 Gm [place]) 1 spray NOSTRIL-B BID PRN PRN Reason: Nasal Congestion Guaifenesin/Dextromethorphan (Guaifenesin Dm 100/10/5 Ml 5 Ml Syrup) 10 ml PO QID PRN PRN Reason: Cough Hydroxyzine HCl (Hydroxyzine Hcl 25 Mg Tablet) 25 mg PO Q6H PRN PRN Reason: mild anxiety Last Admin: 06/23/25 18:00 Dose: 25 mg Levothyroxine Sodium (Levothyroxine Sodium 50 Mcg Tablet) 50 mcg PO 0630 [facility] Last Admin: 06/29/25 06:24 Dose: 50 mcg Levothyroxine Sodium (Levothyroxine Sodium 200 Mcg Tablet) 200 mcg PO 0630 [facility] Last Admin: 06/29/25 06:24 Dose: 200 mcg Loratadine (Loratadine 10 Mg Tablet) 10 mg PO DAILY [facility] Last Admin: 06/28/25 08:51 Dose: 10 mg Magnesium Hydroxide (Milk Of Magnesia 30 Ml Oral.Susp) 30 ml PO DAILY PRN PRN Reason: Constipation Melatonin (Melatonin 3 Mg Tablet) 9 mg PO BEDTIME [facility] Last Admin: 06/28/25 20:35 Dose: 9 mg Memantine (Memantine Hcl 5 Mg Tablet) 5 mg PO BID [facility] Last Admin: 06/28/25 20:37 Dose: 5 mg Multivitamins/Vitamin C (Multivitamin Tablet) 1 tab PO DAILY [facility] Last Admin: 06/28/25 08:51 Dose: 1 tab Pt Own (Vibegron [ Gemtesa] 75 Mg Tablet) 75 mg PO DAILY [facility] Last Admin: 06/28/25 08:51 Dose: 75 mg Nystatin (Nystatin Powder 15 Gm Bottle) 1 appl TOPICAL BID PRN; Protocol PRN Reason: Rash Olanzapine (Olanzapine Odt 10 Mg Tab.Rapdis) 10 mg TRANSLINGU Q6H PRN PRN Reason: agitation Last Admin: 06/28/25 15:35 Dose: 10 mg Olanzapine (Olanzapine 10 Mg Tablet) 10 mg PO BEDTIME [facility] Last Admin: 06/28/25 20:35 Dose: 10 mg Quetiapine Fumarate (Quetiapine Fumarate 200 Mg Tablet) 200 mg PO BID [facility] Last Admin: 06/28/25 20:36 Dose: 200 mg Quetiapine Fumarate (Quetiapine Fumarate 200 Mg Tablet) 200 mg PO DAILY@1200 [facility] Last Admin: 06/28/25 11:16 Dose: 200 mg Senna (Sennosides 8.6 Mg Tablet) 8.6 mg PO Q48H [facility] Last Admin: 06/27/25 08:19 Dose: 8.6 mg Tamsulosin HCl (Tamsulosin Hcl 0.4 Mg Capsule) 0.4 mg PO DAILY [facility] Last Admin: 06/28/25 08:51 Dose: 0.4 mg Trazodone HCl (Trazodone Hcl 50 Mg Tablet) 150 mg PO BEDTIME [facility] Last Admin: 06/28/25 20:36 Dose: 150 mg Triamcinolone Acetonide (Triamcinolone Acet 0.1 % Oint 15 Gm Tube) 1 appl TOPICAL BID PRN PRN Reason: Skin Irritation Allergies Allergies Allergy/AdvReac Type Severity Reaction Status Date / Time adhesive tape Allergy Intermediate itching Verified 06/19/25 16:08 and skin redness latex Allergy Intermediate skin rash Verified 06/19/25 16:08 and itching Seasonal Allergies Allergy Itching Verified 06/19/25 16:08 weed pollen Allergy stuffy nose Verified 06/19/25 16:08 DUST Allergy Unknown ITCHY/WATERY Uncoded 06/19/25 16:08 EYES surgical paper tape Allergy Unknown rash Uncoded 06/19/25 16:08 Tide Allergy Unknown rash Uncoded 06/19/25 16:08 Assessment & Plan Assessment & Plan (1) Major neurocognitive disorder due to vascular disease, with behavioral disturbance, severe: Status: Acute Code(s): F01.C18 - Vascular dementia, severe, with other behavioral disturbance (2) Developmental delay, moderate: Status: Deleted Code(s): R62.50 - Unspecified lack of expected normal physiological development in childhood Plan Ms. Ronquillo is a 69 year-old woman with hx of developmental delay, vascular dementia who was brought via EMS due to increase aggression. Medical work up mostly unremarkable, except for TSH 22, free T4 1.22. She is on levothyroxine, unclear if taking it as prescribed. This software writer spoke with pt's psychiatric provider, Tammy Randall who reports she has been adjusting dose of seroquel. She has been on carbamazepine for a long time for mood stabilization- will check level. Will add diazepam for impulsive/explosive behaviors. PLAN 1. Admit to S1, Sect 12b, 15 minutes checks 2. will switch carbamazepine to depakote- as carbamazepine may be interacting with other medications and may not be as effective managing impulsive/explosive behaviors. 3. continue for now seroquel, but may consider changing antipsychotic medication as well. 4. obtain collateral information 5. aftercare planning. 06/25 continue to present as agitated, combative. increase depakote to 500mg po BID. continue seroquel for now but may also consider switching antipsychotics as well. 06/26 continue tx. 06/27 continue current medications, will check depakote level on Monday. 06/28 added olanzapine 10mg at night- I see she has seroquel but seems like not adequate and depakote not making substantial gain as yet olanzapine can be discontinued after more stable on depakote- 06/29 CTP- Patient educated on: other (dc planning) Informed Consent: does not understand and further education needed Reason for continued inpatient stay Substantial Risk for: inability to function and rapid decompensation Time Spent With Patient Time: Total time managing care of this patient today ____ minutes.
[2025-06-29 07:50] VITALS: BP 133/72; PULSE 74; RESP 16; TEMP 36.7; O2SAT 95
[2025-06-29] MEDS: Aspirin Enteric Coated 81 MG TABLET.DR PO (08:33)
[2025-06-29] MEDS: OLANZapine ODT 10 MG TAB.RAPDIS TRANSLINGU ×2 (08:34→14:02)
[2025-06-29] MEDS: PT OWN (Vibegron [Gemtesa] 75 mg tablet) 75 EACH PO (08:38)
[2025-06-29 20:00] VITALS: BP 148/76; PULSE 75; RESP 18; TEMP 36.9; O2SAT 99
[2025-06-30 08:30] VITALS: BP 118/61; PULSE 77; RESP 16; O2SAT 97
[2025-06-30] MEDS: Ferrous Sulfate 324 MG TABLET.DR PO (09:25)
[2025-06-30] MEDS: Aspirin Enteric Coated 81 MG TABLET.DR PO (09:26)
[2025-06-30] MEDS: PT OWN (Vibegron [Gemtesa] 75 mg tablet) 75 EACH PO (09:26)
--- NOTE | 2025-06-30 11:36 | P.PNPSI_ITS ---
Subjective Subjective Date of Service: 06/30/25 Reason For Visit: Combative Behaviors Subjective Notes: Conditional Voluntary Interim History: Pt had some difficulty sleeping- slept about 5 hrs per nursing. Over the weekend appears slightly calmer, but continues to present with explosive reaction when redirect her. She wants to go home, asks this pattern chart writer if she is going home. Informed not yet, started yelling get out!! She was calmer after. We had meeting with DDS team and HCP- Isi- discussed medication changes including change to depakote from carbamazepine and plan to switch seroquel to olanzapine. will monitor BP, constipation. Review of Systems Review of Systems Limited due to mental status Yes all other systems are reviewed and are negative Mental Status Exam Mental Status Exam Narrative: Appearance: wearing casual clothing, goos hygiene, in NAD Behavior: hostile Psychomotor: agitation Speech: mumbles, difficult to understand at times, spontaneous TP: wanting to go home TC: wanting to go home, profanities to staff. Mood: let me go Affect: irritable, agitated SI: denies HI: denies VH/AH: no signs Delusions: no overt delusions Insight/judgment: impaired x2 alert, oriented to hospital, not so much to situation Diagnostics Vital Signs (24Hr): Vital Signs - 24 hr 06/29/25 20:00 06/30/25 08:30 Temperature 98.4 F Pulse Rate 75 77 Respiratory Rate 18 16 Blood Pressure 148/76 H 118/61 Pulse Oximetry 99 97 Oxygen Delivery Method Room Air Room Air BMI result Body Mass Index 24.7 Labs 06/19/25 17:56 06/25/25 10:24 Medications Medications Current Medications Acetaminophen (Acetaminophen 325 Mg Tablet) 650 mg PO Q4H PRN PRN Reason: Pain Last Admin: 06/25/25 20:38 Dose: 650 mg Al Hydroxide/Mg Hydroxide (Magnesium Hydrox/Alum Hydrox 30 Ml Oral.Susp) 30 ml PO Q6H PRN PRN Reason: Heartburn/Nausea Ascorbic Acid (Ascorbic Acid 500 Mg Tablet) 500 mg PO BID [facility] Last Admin: 06/30/25 09:25 Dose: 500 mg Aspirin (Aspirin Enteric Coated 81 Mg Tablet.) 81 mg PO DAILY [facility] Last Admin: 06/30/25 09:26 Dose: 81 mg Betamethasone Dipropion Augmented (Betamethasone Dip Aug 0.05% Cr 15 Gm Tube) 1 appl TOPICAL BID PRN PRN Reason: Dry areas on hand Diazepam (Diazepam 2 Mg Tablet) 2 mg PO DAILY PRN PRN Reason: Anxiety Last Admin: 06/29/25 09:44 Dose: 2 mg Diazepam (Diazepam 2 Mg Tablet) 2 mg PO TID [facility] Last Admin: 06/30/25 09:25 Dose: 2 mg Divalproex Sodium (Divalproex Sodium 500 Mg Tablet.) 500 mg PO BID [facility] Last Admin: 06/30/25 09:24 Dose: 500 mg Docusate Sodium (Docusate Sodium 100 Mg Capsule) 100 mg PO BID [facility] Last Admin: 06/30/25 09:25 Dose: 100 mg Donepezil HCl (Donepezil Hcl 5 Mg Tablet) 5 mg PO BEDTIME [facility] Last Admin: 06/29/25 20:27 Dose: 5 mg Ferrous Sulfate (Ferrous Sulfate 324 Mg Tablet.) 324 mg PO MOWEFR@0900 [facility] Last Admin: 06/30/25 09:25 Dose: 324 mg Fluticasone Propionate (Fluticasone Propionate Nasal 16 Gm [place]) 1 spray NOSTRIL-B BID PRN PRN Reason: Nasal Congestion Guaifenesin/Dextromethorphan (Guaifenesin Dm 100/10/5 Ml 5 Ml Syrup) 10 ml PO QID PRN PRN Reason: Cough Levothyroxine Sodium (Levothyroxine Sodium 50 Mcg Tablet) 50 mcg PO 0630 [facility] Last Admin: 06/30/25 05:40 Dose: 50 mcg Levothyroxine Sodium (Levothyroxine Sodium 200 Mcg Tablet) 200 mcg PO 0630 [facility] Last Admin: 06/30/25 05:40 Dose: 200 mcg Loratadine (Loratadine 10 Mg Tablet) 10 mg PO DAILY [facility] Last Admin: 06/30/25 09:25 Dose: 10 mg Magnesium Hydroxide (Milk Of Magnesia 30 Ml Oral.Susp) 30 ml PO DAILY PRN PRN Reason: Constipation Melatonin (Melatonin 3 Mg Tablet) 9 mg PO BEDTIME [facility] Last Admin: 06/29/25 20:26 Dose: 9 mg Memantine (Memantine Hcl 5 Mg Tablet) 5 mg PO BID [facility] Last Admin: 06/30/25 09:25 Dose: 5 mg Multivitamins/Vitamin C (Multivitamin Tablet) 1 tab PO DAILY [facility] Last Admin: 06/30/25 09:25 Dose: 1 tab Pt Own (Vibegron [ Gemtesa] 75 Mg Tablet) 75 mg PO DAILY [facility] Last Admin: 06/30/25 09:26 Dose: 75 mg Nystatin (Nystatin Powder 15 Gm Bottle) 1 appl TOPICAL BID PRN; Protocol PRN Reason: Rash Olanzapine (Olanzapine Odt 10 Mg Tab.Rapdis) 10 mg TRANSLINGU Q6H PRN PRN Reason: agitation Last Admin: 06/29/25 14:02 Dose: 10 mg Olanzapine (Olanzapine 10 Mg Tablet) 10 mg PO BID [facility] Quetiapine Fumarate (Quetiapine Fumarate 200 Mg Tablet) 200 mg PO DAILY@1200 [facility] Last Admin: 06/29/25 12:07 Dose: 200 mg Quetiapine Fumarate (Quetiapine Fumarate 100 Mg Tablet) 100 mg PO BID [facility] Senna (Sennosides 8.6 Mg Tablet) 8.6 mg PO Q48H [facility] Last Admin: 06/29/25 08:34 Dose: 8.6 mg Sertraline HCl (Sertraline Hcl 50 Mg Tablet) 50 mg PO DAILY [facility] Tamsulosin HCl (Tamsulosin Hcl 0.4 Mg Capsule) 0.4 mg PO DAILY [facility] Last Admin: 06/30/25 09:25 Dose: 0.4 mg Trazodone HCl (Trazodone Hcl 50 Mg Tablet) 150 mg PO BEDTIME [facility] Last Admin: 06/29/25 20:26 Dose: 150 mg Triamcinolone Acetonide (Triamcinolone Acet 0.1 % Oint 15 Gm Tube) 1 appl TOPICAL BID PRN PRN Reason: Skin Irritation Allergies Allergies Allergy/AdvReac Type Severity Reaction Status Date / Time adhesive tape Allergy Intermediate itching Verified 06/19/25 16:08 and skin redness latex Allergy Intermediate skin rash Verified 06/19/25 16:08 and itching Seasonal Allergies Allergy Itching Verified 06/19/25 16:08 weed pollen Allergy stuffy nose Verified 06/19/25 16:08 DUST Allergy Unknown ITCHY/WATERY Uncoded 06/19/25 16:08 EYES surgical paper tape Allergy Unknown rash Uncoded 06/19/25 16:08 Tide Allergy Unknown rash Uncoded 06/19/25 16:08 Assessment & Plan Assessment & Plan (1) Major neurocognitive disorder due to vascular disease, with behavioral disturbance, severe: Status: Acute Code(s): F01.C18 - Vascular dementia, severe, with other behavioral disturbance (2) Developmental delay, moderate: Status: Deleted Code(s): R62.50 - Unspecified lack of expected normal physiological development in childhood Plan Ms. Ronquillo is a 69 year-old woman with hx of developmental delay, vascular dementia who was brought via EMS due to increase aggression. Medical work up mostly unremarkable, except for TSH 22, free T4 1.22. She is on levothyroxine, unclear if taking it as prescribed. This pattern chart writer spoke with pt's psychiatric provider, Tammy Randall who reports she has been adjusting dose of seroquel. She has been on carbamazepine for a long time for mood stabilization- will check level. Will add diazepam for impulsive/explosive behaviors. PLAN 1. Admit to S1, Sect 12b, 15 minutes checks 2. will switch carbamazepine to depakote- as carbamazepine may be interacting with other medications and may not be as effective managing impulsive/explosive behaviors. 3. continue for now seroquel, but may consider changing antipsychotic medication as well. 4. obtain collateral information 5. aftercare planning. 06/25 continue to present as agitated, combative. increase depakote to 500mg po BID. continue seroquel for now but may also consider switching antipsychotics as well. 06/26 continue tx. 06/27 continue current medications, will check depakote level on Monday. 06/28 added olanzapine 10mg at night- I see she has seroquel but seems like not adequate and depakote not making substantial gain as yet olanzapine can be discontinued after more stable on depakote- 06/29 CTP- 06/30 check depakote level tomorrow AM. Will decrease seroquel to 100mg po BID, continue seroquel 200mg po at noon. Increase olazapine to 10mg po BID. plan to cross taper to olanzapine. May add sertraline as antidepressant. Reason for continued inpatient stay Substantial Risk for: inability to function Time Spent With Patient Time: Total time managing care of this patient today ____ minutes.
[2025-06-30 20:00] VITALS: BP 144/77; PULSE 68; RESP 16; TEMP 36.1; O2SAT 96
--- NOTE | 2025-07-01 | ECG_ITS ---
Test Reason : cp Blood Pressure : */* mmHG Vent. Rate : 74 BPM Atrial Rate : 74 BPM P-R Int : 174 ms QRS Dur : 134 ms QT Int : 426 ms P-R-T Axes : 37 -55 5 degrees QTcB Int : 472 ms Normal sinus rhythm Right bundle branch block Left anterior fascicular block Bifascicular block Abnormal ECG When compared with ECG of 20-Jun-2025 18:41, No significant change was found Referred By: Izabella Presley Electronically Signed By: RAJESH RIZO
[2025-07-01 08:30] VITALS: BP 120/58; PULSE 85; RESP 15; TEMP 36.9; O2SAT 97
[2025-07-01] MEDS: PT OWN (Vibegron [Gemtesa] 75 mg tablet) 75 EACH PO (08:31)
[2025-07-01] MEDS: Aspirin Enteric Coated 81 MG TABLET.DR PO (08:32)
--- NOTE | 2025-07-01 11:08 | HO.PSYCHPN ---
Subjective Subjective Date of Service: 07/01/25 Reason For Visit: Combative Behaviors Subjective Notes: Conditional Voluntary Healthcare Proxy: Yes Interim History: Pt slept through the night. She is taking medications. She continues to present with irritable mood, asking to leave, would not engage in any other conversation unless if it is to confirm that she will be discharged today. Pt informed she is not leaving today- I hate you, I am leaving today, not tomorrow has labs scheduled this AM- depakote level/ammonia but declined. will try again tomorrow AM. Medication Compliance: Yes Review of Systems Review of Systems Limited due to mental status Yes all other systems are reviewed and are negative Mental Status Exam Mental Status Exam Narrative: Appearance: wearing casual clothing, goos hygiene, in NAD Behavior: hostile Psychomotor: intermittent agitation. bilat action tremors. Speech: mumbles, difficult to understand at times, spontaneous TP: wanting to go home TC: wanting to go home, profanities to staff. Mood: let me go Affect: irritable, agitated SI: denies HI: denies VH/AH: no signs Delusions: no overt delusions Insight/judgment: impaired x2 alert, oriented to hospital, not so much to situation Diagnostics Vital Signs (24Hr): Vital Signs - 24 hr 06/30/25 20:00 07/01/25 08:30 Temperature 97 F 98.4 F Pulse Rate 68 85 Respiratory Rate 16 15 Blood Pressure 144/77 H 120/58 L Pulse Oximetry 96 97 Oxygen Delivery Method Room Air Room Air BMI result Body Mass Index 24.7 Labs 06/19/25 17:56 06/25/25 10:24 Medications Medications Current Medications Acetaminophen (Acetaminophen 325 Mg Tablet) 650 mg PO Q4H PRN PRN Reason: Pain Last Admin: 06/25/25 20:38 Dose: 650 mg Al Hydroxide/Mg Hydroxide (Magnesium Hydrox/Alum Hydrox 30 Ml Oral.Susp) 30 ml PO Q6H PRN PRN Reason: Heartburn/Nausea Ascorbic Acid (Ascorbic Acid 500 Mg Tablet) 500 mg PO BID [facility] Last Admin: 07/01/25 08:33 Dose: 500 mg Aspirin (Aspirin Enteric Coated 81 Mg Tablet.) 81 mg PO DAILY [facility] Last Admin: 07/01/25 08:32 Dose: 81 mg Betamethasone Dipropion Augmented (Betamethasone Dip Aug 0.05% Cr 15 Gm Tube) 1 appl TOPICAL BID PRN PRN Reason: Dry areas on hand Diazepam (Diazepam 2 Mg Tablet) 2 mg PO DAILY PRN PRN Reason: Anxiety Last Admin: 06/29/25 09:44 Dose: 2 mg Diazepam (Diazepam 2 Mg Tablet) 2 mg PO TID [facility] Last Admin: 07/01/25 08:32 Dose: 2 mg Divalproex Sodium (Divalproex Sodium 500 Mg Tablet.) 500 mg PO BID [facility] Last Admin: 07/01/25 08:33 Dose: 500 mg Docusate Sodium (Docusate Sodium 100 Mg Capsule) 100 mg PO BID [facility] Last Admin: 07/01/25 08:32 Dose: 100 mg Donepezil HCl (Donepezil Hcl 5 Mg Tablet) 5 mg PO BEDTIME [facility] Last Admin: 06/30/25 21:34 Dose: 5 mg Ferrous Sulfate (Ferrous Sulfate 324 Mg Tablet.) 324 mg PO MOWEFR@0900 [facility] Last Admin: 06/30/25 09:25 Dose: 324 mg Fluticasone Propionate (Fluticasone Propionate Nasal 16 Gm [place]) 1 spray NOSTRIL-B BID PRN PRN Reason: Nasal Congestion Guaifenesin/Dextromethorphan (Guaifenesin Dm 100/10/5 Ml 5 Ml Syrup) 10 ml PO QID PRN PRN Reason: Cough Levothyroxine Sodium (Levothyroxine Sodium 50 Mcg Tablet) 50 mcg PO 30 [facility] Last Admin: 07/01/25 06:09 Dose: 50 mcg Levothyroxine Sodium (Levothyroxine Sodium 200 Mcg Tablet) 200 mcg PO 30 [facility] Last Admin: 07/01/25 06:09 Dose: 200 mcg Loratadine (Loratadine 10 Mg Tablet) 10 mg PO DAILY [facility] Last Admin: 07/01/25 08:32 Dose: 10 mg Magnesium Hydroxide (Milk Of Magnesia 30 Ml Oral.Susp) 30 ml PO DAILY PRN PRN Reason: Constipation Melatonin (Melatonin 3 Mg Tablet) 9 mg PO BEDTIME [facility] Last Admin: 06/30/25 21:34 Dose: 9 mg Memantine (Memantine Hcl 5 Mg Tablet) 5 mg PO BID [facility] Last Admin: 07/01/25 08:33 Dose: 5 mg Multivitamins/Vitamin C (Multivitamin Tablet) 1 tab PO DAILY [facility] Last Admin: 07/01/25 08:32 Dose: 1 tab Pt Own (Vibegron [ Gemtesa] 75 Mg Tablet) 75 mg PO DAILY [facility] Last Admin: 07/01/25 08:31 Dose: 75 mg Nystatin (Nystatin Powder 15 Gm Bottle) 1 appl TOPICAL BID PRN; Protocol PRN Reason: Rash Olanzapine (Olanzapine Odt 10 Mg Tab.Rapdis) 10 mg TRANSLINGU Q6H PRN PRN Reason: agitation Last Admin: 06/29/25 14:02 Dose: 10 mg Olanzapine (Olanzapine 10 Mg Tablet) 10 mg PO BID [facility] Last Admin: 07/01/25 08:32 Dose: 10 mg Quetiapine Fumarate (Quetiapine Fumarate 200 Mg Tablet) 200 mg PO DAILY@1200 [facility] Last Admin: 06/30/25 11:42 Dose: 200 mg Quetiapine Fumarate (Quetiapine Fumarate 100 Mg Tablet) 100 mg PO BID [facility] Last Admin: 07/01/25 08:33 Dose: 100 mg Senna (Sennosides 8.6 Mg Tablet) 8.6 mg PO Q48H [facility] Last Admin: 07/01/25 08:33 Dose: 8.6 mg Sertraline HCl (Sertraline Hcl 50 Mg Tablet) 50 mg PO DAILY [facility] Last Admin: 07/01/25 08:33 Dose: 50 mg Tamsulosin HCl (Tamsulosin Hcl 0.4 Mg Capsule) 0.4 mg PO DAILY [facility] Last Admin: 07/01/25 08:32 Dose: 0.4 mg Trazodone HCl (Trazodone Hcl 50 Mg Tablet) 150 mg PO BEDTIME [facility] Last Admin: 06/30/25 21:34 Dose: 150 mg Triamcinolone Acetonide (Triamcinolone Acet 0.1 % Oint 15 Gm Tube) 1 appl TOPICAL BID PRN PRN Reason: Skin Irritation Allergies Allergies Allergy/AdvReac Type Severity Reaction Status Date / Time adhesive tape Allergy Intermediate itching Verified 06/19/25 16:08 and skin redness latex Allergy Intermediate skin rash Verified 06/19/25 16:08 and itching Seasonal Allergies Allergy Itching Verified 06/19/25 16:08 weed pollen Allergy stuffy nose Verified 06/19/25 16:08 DUST Allergy Unknown ITCHY/WATERY Uncoded 06/19/25 16:08 EYES surgical paper tape Allergy Unknown rash Uncoded 06/19/25 16:08 Tide Allergy Unknown rash Uncoded 06/19/25 16:08 Assessment & Plan Assessment & Plan (1) Major neurocognitive disorder due to vascular disease, with behavioral disturbance, severe: Status: Acute Code(s): F01.C18 - Vascular dementia, severe, with other behavioral disturbance (2) Developmental delay, moderate: Status: Deleted Code(s): R62.50 - Unspecified lack of expected normal physiological development in childhood Plan Ms. Ronquillo is a 69 year-old woman with hx of developmental delay, vascular dementia who was brought via EMS due to increase aggression. Medical work up mostly unremarkable, except for TSH 22, free T4 1.22. She is on levothyroxine, unclear if taking it as prescribed. This speech writer spoke with pt's psychiatric provider, Tammy Randall who reports she has been adjusting dose of seroquel. She has been on carbamazepine for a long time for mood stabilization- will check level. Will add diazepam for impulsive/explosive behaviors. PLAN 1. Admit to S1, Sect 12b, 15 minutes checks 2. will switch carbamazepine to depakote- as carbamazepine may be interacting with other medications and may not be as effective managing impulsive/explosive behaviors. 3. continue for now seroquel, but may consider changing antipsychotic medication as well. 4. obtain collateral information 5. aftercare planning. 06/25 continue to present as agitated, combative. increase depakote to 500mg po BID. continue seroquel for now but may also consider switching antipsychotics as well. 06/26 continue tx. 06/27 continue current medications, will check depakote level on Monday. 06/28 added olanzapine 10mg at night- I see she has seroquel but seems like not adequate and depakote not making substantial gain as yet olanzapine can be discontinued after more stable on depakote- 06/29 CTP- 06/30 check depakote level tomorrow AM. Will decrease seroquel to 100mg po BID, continue seroquel 200mg po at noon. Increase olazapine to 10mg po BID. plan to cross taper to olanzapine. May add sertraline as antidepressant. 07/01 will increase olanzapine to 10mg po TID, will continue current decreased dose of seroquel for now. continue depakote 500mg po BID- will adjust dose as we get levels. no signs of increase ammonia. Reason for continued inpatient stay Substantial Risk for: inability to function Time Spent With Patient Time: Total time managing care of this patient today ____ minutes.
[2025-07-01] MEDS: OLANZapine ODT 10 MG TAB.RAPDIS TRANSLINGU (13:23)
[2025-07-01 20:00] VITALS: BP 142/66; PULSE 79; RESP 18; TEMP 37.1; O2SAT 96
--- NOTE | 2025-07-02 08:37 | HO.PSYCHPN ---
Subjective Subjective Date of Service: 07/02/25 Reason For Visit: Combative Behaviors Subjective Notes: Conditional Voluntary Healthcare Proxy: Yes Interim History: Pt sleeping through the night. She continues to present as hostile demanding to be discharged as soon as possible. She tells this production underwriter I hate you! She does not engage in conversation that is not about going home. She had a fever this morning of 101. Labs ordered as well as chest XR which showed interstitial edema. Review of Systems Review of Systems Limited due to mental status Yes all other systems are reviewed and are negative Mental Status Exam Mental Status Exam Narrative: Appearance: wearing casual clothing, goos hygiene, in NAD Behavior: hostile Psychomotor: intermittent agitation. bilat action tremors. Speech: mumbles, difficult to understand at times, spontaneous TP: wanting to go home TC: wanting to go home, profanities to staff. Mood: let me go Affect: irritable, agitated SI: denies HI: denies VH/AH: no signs Delusions: no overt delusions Insight/judgment: impaired x2 alert, oriented to hospital, not so much to situation Diagnostics Vital Signs (24Hr): Vital Signs - 24 hr 07/01/25 20:00 Temperature 98.7 F Pulse Rate 79 Respiratory Rate 18 Blood Pressure 142/66 H Pulse Oximetry 96 Oxygen Delivery Method Room Air BMI result Body Mass Index 24.7 Labs 06/19/25 17:56 06/25/25 10:24 Medications Medications Current Medications Acetaminophen (Acetaminophen 325 Mg Tablet) 650 mg PO Q4H PRN PRN Reason: Pain Last Admin: 06/25/25 20:38 Dose: 650 mg Al Hydroxide/Mg Hydroxide (Magnesium Hydrox/Alum Hydrox 30 Ml Oral.Susp) 30 ml PO Q6H PRN PRN Reason: Heartburn/Nausea Ascorbic Acid (Ascorbic Acid 500 Mg Tablet) 500 mg PO BID [facility] Last Admin: 07/01/25 20:51 Dose: 500 mg Aspirin (Aspirin Enteric Coated 81 Mg Tablet.) 81 mg PO DAILY [facility] Last Admin: 07/01/25 08:32 Dose: 81 mg Betamethasone Dipropion Augmented (Betamethasone Dip Aug 0.05% Cr 15 Gm Tube) 1 appl TOPICAL BID PRN PRN Reason: Dry areas on hand Diazepam (Diazepam 2 Mg Tablet) 2 mg PO DAILY PRN PRN Reason: Anxiety Last Admin: 07/01/25 17:08 Dose: 2 mg Diazepam (Diazepam 2 Mg Tablet) 2 mg PO TID [facility] Last Admin: 07/01/25 20:51 Dose: 2 mg Divalproex Sodium (Divalproex Sodium 500 Mg Tablet.) 500 mg PO BID [facility] Last Admin: 07/01/25 20:52 Dose: 500 mg Docusate Sodium (Docusate Sodium 100 Mg Capsule) 100 mg PO BID [facility] Last Admin: 07/01/25 20:53 Dose: 100 mg Donepezil HCl (Donepezil Hcl 5 Mg Tablet) 5 mg PO BEDTIME [facility] Last Admin: 07/01/25 20:53 Dose: 5 mg Ferrous Sulfate (Ferrous Sulfate 324 Mg Tablet.) 324 mg PO MOWEFR@0900 [facility] Last Admin: 06/30/25 09:25 Dose: 324 mg Fluticasone Propionate (Fluticasone Propionate Nasal 16 Gm [place]) 1 spray NOSTRIL-B BID PRN PRN Reason: Nasal Congestion Guaifenesin/Dextromethorphan (Guaifenesin Dm 100/10/5 Ml 5 Ml Syrup) 10 ml PO QID PRN PRN Reason: Cough Levothyroxine Sodium (Levothyroxine Sodium 50 Mcg Tablet) 50 mcg PO 30 [facility] Last Admin: 07/02/25 05:35 Dose: 50 mcg Levothyroxine Sodium (Levothyroxine Sodium 200 Mcg Tablet) 200 mcg PO 30 [facility] Last Admin: 07/02/25 05:35 Dose: 200 mcg Loratadine (Loratadine 10 Mg Tablet) 10 mg PO DAILY [facility] Last Admin: 07/01/25 08:32 Dose: 10 mg Magnesium Hydroxide (Milk Of Magnesia 30 Ml Oral.Susp) 30 ml PO DAILY PRN PRN Reason: Constipation Melatonin (Melatonin 3 Mg Tablet) 9 mg PO BEDTIME [facility] Last Admin: 07/01/25 20:50 Dose: 9 mg Memantine (Memantine Hcl 5 Mg Tablet) 5 mg PO BID [facility] Last Admin: 07/01/25 20:53 Dose: 5 mg Multivitamins/Vitamin C (Multivitamin Tablet) 1 tab PO DAILY [facility] Last Admin: 07/01/25 08:32 Dose: 1 tab Pt Own (Vibegron [ Gemtesa] 75 Mg Tablet) 75 mg PO DAILY [facility] Last Admin: 07/01/25 08:31 Dose: 75 mg Nystatin (Nystatin Powder 15 Gm Bottle) 1 appl TOPICAL BID PRN; Protocol PRN Reason: Rash Olanzapine (Olanzapine Odt 10 Mg Tab.Rapdis) 10 mg TRANSLINGU Q6H PRN PRN Reason: agitation Last Admin: 07/01/25 13:23 Dose: 10 mg Olanzapine (Olanzapine 10 Mg Tablet) 10 mg PO TID [facility] Last Admin: 07/01/25 20:52 Dose: 10 mg Quetiapine Fumarate (Quetiapine Fumarate 200 Mg Tablet) 200 mg PO DAILY@1200 [facility] Last Admin: 07/01/25 12:12 Dose: 200 mg Quetiapine Fumarate (Quetiapine Fumarate 100 Mg Tablet) 100 mg PO BID [facility] Last Admin: 07/01/25 20:52 Dose: 100 mg Senna (Sennosides 8.6 Mg Tablet) 8.6 mg PO Q48H [facility] Last Admin: 07/01/25 08:33 Dose: 8.6 mg Sertraline HCl (Sertraline Hcl 50 Mg Tablet) 50 mg PO DAILY [facility] Last Admin: 07/01/25 08:33 Dose: 50 mg Tamsulosin HCl (Tamsulosin Hcl 0.4 Mg Capsule) 0.4 mg PO DAILY [facility] Last Admin: 07/01/25 08:32 Dose: 0.4 mg Trazodone HCl (Trazodone Hcl 50 Mg Tablet) 150 mg PO BEDTIME [facility] Last Admin: 07/01/25 20:50 Dose: 150 mg Triamcinolone Acetonide (Triamcinolone Acet 0.1 % Oint 15 Gm Tube) 1 appl TOPICAL BID PRN PRN Reason: Skin Irritation Allergies Allergies Allergy/AdvReac Type Severity Reaction Status Date / Time adhesive tape Allergy Intermediate itching Verified 06/19/25 16:08 and skin redness latex Allergy Intermediate skin rash Verified 06/19/25 16:08 and itching Seasonal Allergies Allergy Itching Verified 06/19/25 16:08 weed pollen Allergy stuffy nose Verified 06/19/25 16:08 DUST Allergy Unknown ITCHY/WATERY Uncoded 06/19/25 16:08 EYES surgical paper tape Allergy Unknown rash Uncoded 06/19/25 16:08 Tide Allergy Unknown rash Uncoded 06/19/25 16:08 Assessment & Plan Assessment & Plan (1) Major neurocognitive disorder due to vascular disease, with behavioral disturbance, severe: Status: Acute Code(s): F01.C18 - Vascular dementia, severe, with other behavioral disturbance (2) Developmental delay, moderate: Status: Deleted Code(s): R62.50 - Unspecified lack of expected normal physiological development in childhood Plan Ms. Ronquillo is a 69 year-old woman with hx of developmental delay, vascular dementia who was brought via EMS due to increase aggression. Medical work up mostly unremarkable, except for TSH 22, free T4 1.22. She is on levothyroxine, unclear if taking it as prescribed. This production underwriter spoke with pt's psychiatric provider, Tammy Randall who reports she has been adjusting dose of seroquel. She has been on carbamazepine for a long time for mood stabilization- will check level. Will add diazepam for impulsive/explosive behaviors. PLAN 1. Admit to S1, Sect 12b, 15 minutes checks 2. will switch carbamazepine to depakote- as carbamazepine may be interacting with other medications and may not be as effective managing impulsive/explosive behaviors. 3. continue for now seroquel, but may consider changing antipsychotic medication as well. 4. obtain collateral information 5. aftercare planning. 06/25 continue to present as agitated, combative. increase depakote to 500mg po BID. continue seroquel for now but may also consider switching antipsychotics as well. 06/26 continue tx. 06/27 continue current medications, will check depakote level on Monday. 06/28 added olanzapine 10mg at night- I see she has seroquel but seems like not adequate and depakote not making substantial gain as yet olanzapine can be discontinued after more stable on depakote- 06/29 CTP- 06/30 check depakote level tomorrow AM. Will decrease seroquel to 100mg po BID, continue seroquel 200mg po at noon. Increase olazapine to 10mg po BID. plan to cross taper to olanzapine. May add sertraline as antidepressant. 07/01 will increase olanzapine to 10mg po TID, will continue current decreased dose of seroquel for now. continue depakote 500mg po BID- will adjust dose as we get levels. no signs of increase ammonia. 07/02 continue tx. febrile, no SOB. seen by hospitalist. chest xr showed interstitial edema- consult to pulmonology. Reason for continued inpatient stay Substantial Risk for: inability to function Time Spent With Patient Time: Total time managing care of this patient today ____ minutes.
[2025-07-02 08:55] VITALS: BP 141/89; PULSE 83; RESP 18; TEMP 38.4; O2SAT 95
[2025-07-02 09:47] VITALS: TEMP 37.7
[2025-07-02] MEDS: Ferrous Sulfate 324 MG TABLET.DR PO (09:51)
[2025-07-02] MEDS: Aspirin Enteric Coated 81 MG TABLET.DR PO (09:52)
[2025-07-02] MEDS: PT OWN (Vibegron [Gemtesa] 75 mg tablet) 75 EACH PO (10:45)
[2025-07-02] MEDS: OLANZapine ODT 10 MG TAB.RAPDIS TRANSLINGU (10:51)
[2025-07-02 11:10] VITALS: TEMP 38.4
[2025-07-02 11:45] LABS: Chlamydia pneumoniae PCR Not Detected (Not Detect.); Coronavirus 229E PCR Not Detected (Not Detect.); Coronavirus HKU1 PCR Not Detected (Not Detect.); Coronavirus NL63 PCR Not Detected (Not Detect.); Coronavirus OC43 PCR Not Detected (Not Detect.); RSV PCR Not Detected (Not Detect.); Rhino/Enterovirus PCR Not Detected (Not Detect.); SARS-CoV-2 PCR Not Detected (Not Detect.)
[2025-07-02 11:49] LABS: Influenza A H1 PCR Not Detected (Not Detect.); Influenza A H1-2009 PCR Not Detected (Not Detect.); Influenza A H3 PCR Not Detected (Not Detect.)
[2025-07-02 14:54] VITALS: TEMP 37
[2025-07-02 20:00] VITALS: BP 152/72; PULSE 76; RESP 18; TEMP 36.8; O2SAT 95
[2025-07-03 08:45] VITALS: BP 118/57; PULSE 73; RESP 18; TEMP 36.1; O2SAT 96
--- NOTE | 2025-07-03 09:26 | P.CONPL_ITS ---
History of Present Illness History of Present Illness Consult date: 07/03/25 Chief complaint: Combative Behaviors Narrative: This is an inpatient pulmonary consultation. The patient was seen on exam. Although the patient did not want to speak to me and she requested that I leave the room. Therefore the HPI is limited. Apparently she was having some fevers and a cough. She did have a chest x-ray done which I personally reviewed demonstrating some silhouetting of the left hemidiaphragm and also some pulmonary interstitial markings primarily in the right lung. The patient does appear to have increased cardiac size. I did review previous imaging studies from an x-ray from March 2025 demonstrating fairly normal x-ray except for increased cardiac size. Also did review a CT scan of the abdomen she had also in 2024 demonstrating normal lung bases without any parenchymal disease or any concerning findings. Therefore will be reasonable to treat the patient for a acute illness with a short course of antibiotics and then repeat imaging studies to see if improvement. In the meantime also will recommend echocardiogram specially with a history of pulmonary edema and increased cardiac size. There is a question of an echo and the records but he is actually an EKG and I can not find a previous echocardiogram at this time. Review of Systems 2 Review of Systems: Yes Unobtainable due to mental condition and Unobtainable due to mental status PMF Past Medical History Medical History (Updated 07/03/25 @ 09:34 by Francisco Javier Iyer MD) Recurrent UTI Intermittent explosive disorder Abnormal MRI Post-surgical hypothyroidism History of ESBL E. coli infection Toxic multinodular goiter Vitamin D deficiency Hyperthyroidism Colon cancer Lung mass Developmental delay, mild Arthritis Family History Family History Father No problems noted. Mother Medical history unknown Surgical History Surgical History History of carpal tunnel surgery of right wrist Hx of total thyroidectomy History of biopsy Hx of colonic polyps Hx of colonoscopy Social History Social History Household Members: Other Household Members Other:: intermediate with 2 other women and 2 men Housing: Other Housing Other:: intermediate Unable to assess alcohol history related to: Unknown Alcohol intake: never Comment: 0+ Patient Tobacco Use Status: Never used Tobacco Smoked in Last 30 Days: No e-Cigarette/Vaping Use: Never Used Patient Interested in Nicotine Replacement: No Patient Given Instructions on How to Stop Smoking: No Second Hand Smoke Exposure: No Currently Displaying Signs/Symptoms of Drug Intoxication Withdrawal: No Advance Directives: Yes Advance Directives Information Provided: No Advance Directives on File: Yes Advance Directives Date on File: 01/05/21 Do you have thoughts of harming others: None Do you have a plan to hurt others: No Plan Recently lost weight without trying: No Eating poorly because of decreased appetite: No Patient : No : No Poor oral hygiene: No service: No Current occupational status: disabled Current occupation: right handed Sexual orientation: Straight/Heterosexual Cognitive needs: Yes (walker) Hearing needs: No Vision needs: Yes (rx glasses) Meds Allergies Allergy/AdvReac Type Severity Reaction Status Date / Time adhesive tape Allergy Intermediate itching Verified 06/19/25 16:08 and skin redness latex Allergy Intermediate skin rash Verified 06/19/25 16:08 and itching Seasonal Allergies Allergy Itching Verified 06/19/25 16:08 weed pollen Allergy stuffy nose Verified 06/19/25 16:08 DUST Allergy Unknown ITCHY/WATERY Uncoded 06/19/25 16:08 EYES surgical paper tape Allergy Unknown rash Uncoded 06/19/25 16:08 Tide Allergy Unknown rash Uncoded 06/19/25 16:08 Active Medications: Current Medications Acetaminophen (Acetaminophen 325 Mg Tablet) 650 mg PO Q4H PRN PRN Reason: Pain Last Admin: 07/02/25 09:49 Dose: 650 mg Al Hydroxide/Mg Hydroxide (Magnesium Hydrox/Alum Hydrox 30 Ml Oral.Susp) 30 ml PO Q6H PRN PRN Reason: Heartburn/Nausea Ascorbic Acid (Ascorbic Acid 500 Mg Tablet) 500 mg PO BID [facility] Last Admin: 07/02/25 20:49 Dose: 500 mg Aspirin (Aspirin Enteric Coated 81 Mg Tablet.Dr) 81 mg PO DAILY [facility] Last Admin: 07/02/25 09:52 Dose: 81 mg Betamethasone Dipropion Augmented (Betamethasone Dip Aug 0.05% Cr 15 Gm Tube) 1 appl TOPICAL BID PRN PRN Reason: Dry areas on hand Diazepam (Diazepam 2 Mg Tablet) 2 mg PO DAILY PRN PRN Reason: Anxiety Last Admin: 07/01/25 17:08 Dose: 2 mg Diazepam (Diazepam 2 Mg Tablet) 2 mg PO TID [facility] Last Admin: 07/02/25 20:48 Dose: 2 mg Divalproex Sodium (Divalproex Sodium 500 Mg Tablet.) 500 mg PO BID [facility] Last Admin: 07/02/25 20:48 Dose: 500 mg Docusate Sodium (Docusate Sodium 100 Mg Capsule) 100 mg PO BID [facility] Last Admin: 07/02/25 20:50 Dose: 100 mg Donepezil HCl (Donepezil Hcl 5 Mg Tablet) 5 mg PO BEDTIME [facility] Last Admin: 07/02/25 20:49 Dose: 5 mg Ferrous Sulfate (Ferrous Sulfate 324 Mg Tablet.) 324 mg PO MOWEFR@0900 [facility] Last Admin: 07/02/25 09:51 Dose: 324 mg Fluticasone Propionate (Fluticasone Propionate Nasal 16 Gm [employer]) 1 spray NOSTRIL-B BID PRN PRN Reason: Nasal Congestion Guaifenesin/Dextromethorphan (Guaifenesin Dm 100/10/5 Ml 5 Ml Syrup) 10 ml PO QID PRN PRN Reason: Cough Levothyroxine Sodium (Levothyroxine Sodium 50 Mcg Tablet) 50 mcg PO 0630 [facility] Last Admin: 07/03/25 06:21 Dose: 50 mcg Levothyroxine Sodium (Levothyroxine Sodium 200 Mcg Tablet) 200 mcg PO 0630 [facility] Last Admin: 07/03/25 06:21 Dose: 200 mcg Loratadine (Loratadine 10 Mg Tablet) 10 mg PO DAILY [facility] Last Admin: 07/02/25 09:50 Dose: 10 mg Magnesium Hydroxide (Milk Of Magnesia 30 Ml Oral.Susp) 30 ml PO DAILY PRN PRN Reason: Constipation Melatonin (Melatonin 3 Mg Tablet) 9 mg PO BEDTIME [facility] Last Admin: 07/02/25 20:47 Dose: 9 mg Memantine (Memantine Hcl 5 Mg Tablet) 5 mg PO BID [facility] Last Admin: 07/02/25 20:49 Dose: 5 mg Multivitamins/Vitamin C (Multivitamin Tablet) 1 tab PO DAILY [facility] Last Admin: 07/02/25 09:52 Dose: 1 tab Pt Own (Vibegron [ Gemtesa] 75 Mg Tablet) 75 mg PO DAILY [facility] Last Admin: 07/02/25 10:45 Dose: 75 mg Nystatin (Nystatin Powder 15 Gm Bottle) 1 appl TOPICAL BID PRN; Protocol PRN Reason: Rash Olanzapine (Olanzapine Odt 10 Mg Tab.Rapdis) 10 mg TRANSLINGU Q6H PRN PRN Reason: agitation Last Admin: 07/02/25 10:51 Dose: 10 mg Olanzapine (Olanzapine 10 Mg Tablet) 10 mg PO TID [facility] Last Admin: 07/02/25 20:48 Dose: 10 mg Quetiapine Fumarate (Quetiapine Fumarate 200 Mg Tablet) 200 mg PO DAILY@1200 [facility] Last Admin: 07/02/25 11:11 Dose: 200 mg Quetiapine Fumarate (Quetiapine Fumarate 100 Mg Tablet) 100 mg PO BID [facility] Last Admin: 07/02/25 20:49 Dose: 100 mg Senna (Sennosides 8.6 Mg Tablet) 8.6 mg PO Q48H [facility] Last Admin: 07/01/25 08:33 Dose: 8.6 mg Sertraline HCl (Sertraline Hcl 50 Mg Tablet) 50 mg PO DAILY [facility] Last Admin: 07/02/25 09:51 Dose: 50 mg Tamsulosin HCl (Tamsulosin Hcl 0.4 Mg Capsule) 0.4 mg PO DAILY [facility] Last Admin: 07/02/25 09:51 Dose: 0.4 mg Trazodone HCl (Trazodone Hcl 50 Mg Tablet) 150 mg PO BEDTIME [facility] Last Admin: 07/02/25 20:46 Dose: 150 mg Triamcinolone Acetonide (Triamcinolone Acet 0.1 % Oint 15 Gm Tube) 1 appl TOPICAL BID PRN PRN Reason: Skin Irritation Home Medications ?Medication ?Instructions ?Recorded ?Confirmed ?Last Taken ?Type nystatin 100,000 unit/gram topical 1 appl topical BID PRN Rash 01/05/21 06/20/25 Unknown History powder triamcinolone acetonide 0.1 % 1 appl topical BID PRN S kin 01/24/23 06/20/25 Unknown History topical ointment Irritation ascorbic acid (vitamin C) 500 mg 500 mg PO BID 4 06/20/25 02/21/25 History tablet (Vitamin C) betamethasone dipropionate 0.05 % 1 appl topical BID P RN Dry areas 03/13/24 06/20/25 Unknown History topical ointment on hand vibegron 75 mg tablet (Gemtesa) 75 mg PO DAILY 5 06/20/25 02/21/25 History dextromethorphan-guaifenesin 10 10 ml PO QID PRN Cough 03/12/25 06/20/25 Unknown History mg-100 mg/5 mL oral liquid (Guaifenesin-DM) acetaminophen 500 mg tablet 500 mg PO Q4H PRN Pain 11/2606/20/25 Unknown History diazepam 2 mg tablet (Valium) 2 mg PO NEEDED 06/20/25 Unknown History memantine 5 mg tablet 5 mg PO DAILY 06/03/2506/20 Unknown History Physical Exam 2 Vital Signs: Vital Signs: Last Vital Signs Temp 98.2 F 07/02/25 20:00 Pulse 76 07/02/25 20:00 Resp 18 07/02/25 20:00 BP 152/72 H 07/02/25 20:00 Pulse Ox 95 07/02/25 20:00 O2 Del Method Room Air 07/02/25 20:00 BMI result Body Mass Index 24.7 Const: General: comfortable HEENT: Head: Yes normocephalic Neck: Neck: Yes supple Chest: Chest palpation & inspection: deferred Resp: Effort & Inspection: normal respiratory effort and able to speak in complete sentences Skin: General skin exam: no rashes or lesions noted Extrem: Left upper extremity: no cyanosis Results Laboratory Findings 06/19/25 17:56 06/25/25 10:24 Abnormal lab findings: Abnormal Labs 06/19/25 06/19/25 06/25/25 17:56 20:23 10:24 RBC 3.74 L Hgb 10.7 L Hct 33.5 L MPV 9.3 L Chloride 111 H 109 H Anion Gap 11 L BUN 37 H 31 H Alkaline Phosphatase 131 H Ur Leukocyte Esterase Small (1+) H Carbamazepine 3.3 L* U Benzodiazepines Scrn POSITIVE H Microbiology: Microbiology 06/19/25 21:42 Urine clean catch - Clean Catch Midstream Urine Culture - Final No growth. Assessment and Plan (1) New abnormality on chest x-ray: Status: Acute (2) Cough: Qualifiers: Cough type: acute Qualified Code(s): R05.1 - Acute cough Status: Acute (3) Cardiomegaly: Status: Acute Plan start Doxycycline conrinue mucinex Repeat CXR in 3-4 weeks, if persistently abnormal would recommend CT chest Would recommend an ECHO cardiogram Procedures Date of Service Date of Service: 07/03/25
[2025-07-03] MEDS: PT OWN (Vibegron [Gemtesa] 75 mg tablet) 75 EACH PO (09:34)
[2025-07-03] MEDS: Aspirin Enteric Coated 81 MG TABLET.DR PO (09:39)
[2025-07-03 10:08] VITALS: BMI 27.8
--- NOTE | 2025-07-03 16:32 | HO.PSYCHPN ---
Subjective Subjective Date of Service: 07/03/25 Reason For Visit: Combative Behaviors Interim History: Pt sleeping through the night. She continues to present as hostile demanding to be discharged as soon as possible. She tells this commercial insurance underwriter I hate you! She does not engage in conversation that is not about going home. She had a fever this morning of 101. Labs ordered as well as chest XR which showed interstitial edema. Review of Systems Review of Systems Limited due to mental status Yes all other systems are reviewed and are negative, Unobtainable due to mental condition and Unobtainable due to mental status Mental Status Exam Mental Status Exam Narrative: Appearance: wearing casual clothing, goos hygiene, in NAD Behavior: hostile Psychomotor: intermittent agitation. bilat action tremors. Speech: mumbles, difficult to understand at times, spontaneous TP: wanting to go home TC: wanting to go home, profanities to staff. Mood: let me go Affect: irritable, agitated SI: denies HI: denies VH/AH: no signs Delusions: no overt delusions Insight/judgment: impaired x2 alert, oriented to hospital, not so much to situation Diagnostics Vital Signs (24Hr): Vital Signs - 24 hr 07/02/25 20:00 07/03/25 08:45 Temperature 98.2 F 97 F Pulse Rate 76 73 Respiratory Rate 18 18 Blood Pressure 152/72 H 118/57 L Pulse Oximetry 95 96 Oxygen Delivery Method Room Air Room Air BMI result Body Mass Index 27.8 Labs 06/19/25 17:56 06/25/25 10:24 Labs: Laboratory Results - last 48 hr 07/02/25 10:05 Respiratory Panel [place] See Note Adenovirus (Rapid PCR) Not Detected B.pert (TEM-PCR) Not Detected B.parapertussis DNA PCR Not Detected C. pneumoniae DNA (PCR) Not Detected Coronavirus OC43 (PCR) Not Detected Coronavirus HKU1 (PCR) Not Detected Coronavirus 229E (PCR) Not Detected Coronavirus NL63 (PCR) Not Detected Human Metapneumovir PCR Not Detected Influenza A (RT-PCR) Not Detected Influenza A (H1) PCR Not Detected Influ A (H1/09) PCR Not Detected Influenza A (H3) PCR Not Detected Influenza B (RT-PCR) Not Detected M. pneumoniae (PCR) Not Detected Parainfluenza 1 (PCR) Not Detected Parainfluenza 2 (PCR) Not Detected Parainfluenza 3 (PCR) Not Detected Parainfluenza 4 (PCR) Not Detected RSV (PCR) Not Detected Entero/Rhino (PCR) Not Detected SARS-CoV-2 RNA (RT-PCR) Not Detected Imaging Radiology Impressions: ITS Impressions Chest X-Ray 07/02/25 15:14 IMPRESSION: Concerning interstitial lung edema. Questionable airspace disease, left lower lung lobe. Electronically signed by: Srinivasan Baron MD 07/02/2025 03:30 PM EDT Medications Medications Current Medications Acetaminophen (Acetaminophen 325 Mg Tablet) 650 mg PO Q4H PRN PRN Reason: Pain Last Admin: 07/02/25 09:49 Dose: 650 mg Al Hydroxide/Mg Hydroxide (Magnesium Hydrox/Alum Hydrox 30 Ml Oral.Susp) 30 ml PO Q6H PRN PRN Reason: Heartburn/Nausea Ascorbic Acid (Ascorbic Acid 500 Mg Tablet) 500 mg PO BID REPLACED BY [facility] Last Admin: 07/03/25 09:37 Dose: 500 mg Aspirin (Aspirin Enteric Coated 81 Mg Tablet.) 81 mg PO DAILY REPLACED BY [facility] Last Admin: 07/03/25 09:39 Dose: 81 mg Betamethasone Dipropion Augmented (Betamethasone Dip Aug 0.05% Cr 15 Gm Tube) 1 appl TOPICAL BID PRN PRN Reason: Dry areas on hand Diazepam (Diazepam 2 Mg Tablet) 2 mg PO DAILY PRN PRN Reason: Anxiety Last Admin: 07/01/25 17:08 Dose: 2 mg Divalproex Sodium (Divalproex Sodium 500 Mg Tablet.) 500 mg PO BID REPLACED BY [facility] Last Admin: 07/03/25 09:38 Dose: 500 mg Docusate Sodium (Docusate Sodium 100 Mg Capsule) 100 mg PO BID REPLACED BY [facility] Last Admin: 07/03/25 09:37 Dose: 100 mg Donepezil HCl (Donepezil Hcl 5 Mg Tablet) 5 mg PO BEDTIME REPLACED BY [facility] Last Admin: 07/02/25 20:49 Dose: 5 mg Doxycycline Monohydrate (Doxycycline Monohydrate 100 Mg Capsule) 100 mg PO Q12H REPLACED BY [facility] Stop: 07/13/25 09:59 Last Admin: 07/03/25 10:41 Dose: 100 mg Ferrous Sulfate (Ferrous Sulfate 324 Mg Tablet.) 324 mg PO MOWEFR@0900 REPLACED BY [facility] Last Admin: 07/02/25 09:51 Dose: 324 mg Fluticasone Propionate (Fluticasone Propionate Nasal 16 Gm [place]) 1 spray NOSTRIL-B BID PRN PRN Reason: Nasal Congestion Guaifenesin/Dextromethorphan (Guaifenesin Dm 100/10/5 Ml 5 Ml Syrup) 10 ml PO QID PRN PRN Reason: Cough Levothyroxine Sodium (Levothyroxine Sodium 50 Mcg Tablet) 50 mcg PO 0630 REPLACED BY [facility] Last Admin: 07/03/25 06:21 Dose: 50 mcg Levothyroxine Sodium (Levothyroxine Sodium 200 Mcg Tablet) 200 mcg PO 0630 REPLACED BY [facility] Last Admin: 07/03/25 06:21 Dose: 200 mcg Loratadine (Loratadine 10 Mg Tablet) 10 mg PO DAILY REPLACED BY [facility] Last Admin: 07/03/25 09:37 Dose: 10 mg Magnesium Hydroxide (Milk Of Magnesia 30 Ml Oral.Susp) 30 ml PO DAILY PRN PRN Reason: Constipation Melatonin (Melatonin 3 Mg Tablet) 9 mg PO BEDTIME REPLACED BY [facility] Last Admin: 07/02/25 20:47 Dose: 9 mg Memantine (Memantine Hcl 5 Mg Tablet) 5 mg PO BID REPLACED BY [facility] Last Admin: 07/03/25 09:35 Dose: 5 mg Multivitamins/Vitamin C (Multivitamin Tablet) 1 tab PO DAILY REPLACED BY [facility] Last Admin: 07/03/25 09:39 Dose: 1 tab Pt Own (Vibegron [ Gemtesa] 75 Mg Tablet) 75 mg PO DAILY REPLACED BY [facility] Last Admin: 07/03/25 09:34 Dose: 75 mg Nystatin (Nystatin Powder 15 Gm Bottle) 1 appl TOPICAL BID PRN; Protocol PRN Reason: Rash Olanzapine (Olanzapine Odt 10 Mg Tab.Rapdis) 10 mg TRANSLINGU Q6H PRN PRN Reason: agitation Last Admin: 07/02/25 10:51 Dose: 10 mg Olanzapine (Olanzapine 10 Mg Tablet) 10 mg PO TID REPLACED BY [facility] Last Admin: 07/03/25 15:20 Dose: 10 mg Quetiapine Fumarate (Quetiapine Fumarate 200 Mg Tablet) 200 mg PO DAILY@1200 REPLACED BY [facility] Last Admin: 07/03/25 12:00 Dose: 200 mg Quetiapine Fumarate (Quetiapine Fumarate 100 Mg Tablet) 100 mg PO BID REPLACED BY [facility] Last Admin: 07/03/25 09:38 Dose: 100 mg Senna (Sennosides 8.6 Mg Tablet) 8.6 mg PO Q48H REPLACED BY [facility] Last Admin: 07/03/25 09:38 Dose: 8.6 mg Sertraline HCl (Sertraline Hcl 50 Mg Tablet) 50 mg PO DAILY REPLACED BY [facility] Last Admin: 07/03/25 09:38 Dose: 50 mg Tamsulosin HCl (Tamsulosin Hcl 0.4 Mg Capsule) 0.4 mg PO DAILY REPLACED BY [facility] Last Admin: 07/03/25 09:37 Dose: 0.4 mg Trazodone HCl (Trazodone Hcl 50 Mg Tablet) 150 mg PO BEDTIME REPLACED BY [facility] Last Admin: 07/02/25 20:46 Dose: 150 mg Triamcinolone Acetonide (Triamcinolone Acet 0.1 % Oint 15 Gm Tube) 1 appl TOPICAL BID PRN PRN Reason: Skin Irritation Allergies Allergies Allergy/AdvReac Type Severity Reaction Status Date / Time adhesive tape Allergy Intermediate itching Verified 06/19/25 16:08 and skin redness latex Allergy Intermediate skin rash Verified 06/19/25 16:08 and itching Seasonal Allergies Allergy Itching Verified 06/19/25 16:08 weed pollen Allergy stuffy nose Verified 06/19/25 16:08 DUST Allergy Unknown ITCHY/WATERY Uncoded 06/19/25 16:08 EYES surgical paper tape Allergy Unknown rash Uncoded 06/19/25 16:08 Tide Allergy Unknown rash Uncoded 06/19/25 16:08 Assessment & Plan Assessment & Plan (1) Major neurocognitive disorder due to vascular disease, with behavioral disturbance, severe: Status: Acute Code(s): F01.C18 - Vascular dementia, severe, with other behavioral disturbance (2) Developmental delay, moderate: Status: Deleted Code(s): R62.50 - Unspecified lack of expected normal physiological development in childhood Plan Ms. Ronquillo is a 69 year-old woman with hx of developmental delay, vascular dementia who was brought via EMS due to increase aggression. Medical work up mostly unremarkable, except for TSH 22, free T4 1.22. She is on levothyroxine, unclear if taking it as prescribed. This commercial insurance underwriter spoke with pt's psychiatric provider, Tammy Randall who reports she has been adjusting dose of seroquel. She has been on carbamazepine for a long time for mood stabilization- will check level. Will add diazepam for impulsive/explosive behaviors. PLAN 1. Admit to S1, Sect 12b, 15 minutes checks 2. will switch carbamazepine to depakote- as carbamazepine may be interacting with other medications and may not be as effective managing impulsive/explosive behaviors. 3. continue for now seroquel, but may consider changing antipsychotic medication as well. 4. obtain collateral information 5. aftercare planning. 06/25 continue to present as agitated, combative. increase depakote to 500mg po BID. continue seroquel for now but may also consider switching antipsychotics as well. 06/26 continue tx. 06/27 continue current medications, will check depakote level on Monday. 06/28 added olanzapine 10mg at night- I see she has seroquel but seems like not adequate and depakote not making substantial gain as yet olanzapine can be discontinued after more stable on depakote- 06/29 CTP- 06/30 check depakote level tomorrow AM. Will decrease seroquel to 100mg po BID, continue seroquel 200mg po at noon. Increase olazapine to 10mg po BID. plan to cross taper to olanzapine. May add sertraline as antidepressant. 07/01 will increase olanzapine to 10mg po TID, will continue current decreased dose of seroquel for now. continue depakote 500mg po BID- will adjust dose as we get levels. no signs of increase ammonia. 07/02 continue tx. febrile, no SOB. seen by hospitalist. chest xr showed interstitial edema- consult to pulmonology. 07/03 started on doxycycline by [employer] architect. refused echo but will attempt tomorrow. Reason for continued inpatient stay Substantial Risk for: inability to function Time Spent With Patient Time: Total time managing care of this patient today ____ minutes.
--- NOTE | 2025-07-04 07:00 | CA_ITS ---
Transthoracic Echocardiogram Patient (Last, First, Middle): Kirsten Ronquillo, Gender: Female Date of : 1955 Age: 69 Procedure Date: 07/04/2025 Procedure Type: Transthoracic Echocardiogram Location: S1 Psych Height: 157.48 cm Weight: 68.49 kg BSA: 1.70 m2 Heart Rate: bpm BP: 118 / 57 mmHg Supervisory Historian: Referring MD: Francisco Javier Iyer MD Symptoms: cardiomegaly Study Quality: Good ECG Rhythm: Sinus Conclusions: - The left ventricular systolic function is normal. The calculated ejection fraction is 62% by biplane method. - There is mildly increased left ventricular wall thickness. - No obvious valvular pathology seen on this study. Findings Left Ventricle Normal left ventricular cavity size. There is mildly increased left ventricular wall thickness. The left ventricular systolic function is normal. The calculated ejection fraction is 62% by biplane method. There is no evidence of regional wall motion abnormalities. Evidence suggests grade I (mild) diastolic dysfunction. Right Ventricle Normal right ventricular cavity size and systolic function. Atria The left atrium is moderately dilated. The right atrium is normal in size. Aortic Valve There is a normal trileaflet aortic valve. There is no aortic valve stenosis. There is no aortic valve regurgitation. Mitral Valve The mitral valve appears normal. There is trace mitral valve regurgitation. There is no mitral valve stenosis. Pulmonic Valve The pulmonic valve is likely normal. Tricuspid Valve There is mild tricuspid valve regurgitation. There is no evidence of pulmonary hypertension. Great Vessels Top normal ascending aortic size at 3.8 cm. Venous The inferior vena cava is normal in size and collapses greater than 50% with inspiration. Pericardium/Pleural There is a trivial pericardial effusion. Prior Study Comparison No prior study available for comparison. Recommendations, Care & Conclusions No obvious valvular pathology seen on this study. Measurements 2D Linear Measurements IVSd: 1.21 0.6-0.9/0.6-1.0 cm LVIDd: 4.47 3.9-5.3/4.2-5.9 cm LVIDd Index: 2.63 2.4-3.2/2.2-3.1 cm/m2 LVIDs: 2.81 2.0-3.6 cm LVPWd: 1.22 0.7-1.1 cm Ao Root: 3.20 2.1-3.5 cm LA Diam: 3.70 2.7-3.8/3.0-4.0 cm LAIDs Index: 2.18 1.5-2.3 cm/m2 LV Mass: 248.76 67-162/88-224 g LV Mass Index: 146.33 43-95/49-115 g/m2 LVOT Diam: 1.90 3.0+(-)1.3 cm 2D Systolic Function EF 4C: 60.50 >55% EF 2C: 63.90 >55% EF BiP: 61.80 >55% Mitral Valve MV Pk E: 0.90 MV PK A: 1.16 MV Decel Time: 187.00 E/A: 0.80 E'Lateral: 4.13 E'Medial: 5.11 E/E' Med: 17.70 E/E' Lat: 21.90 PHT: 55.00 MVA PHT: 4.00 Decel Linn: 4.82 Aortic Valve AoV Pk Adalid: 2.14 AoV Mn Adalid: 1.33 AoV VTI: 0.53 AoV Pk Grad: 18.00 Aov Mn Grad: 9.00 TIM Cont.VTI: 1.55 LVOT LVOT Pk Adalid: 1.21 LVOT Mn Adalid: 0.83 LVOT VTI: 0.29 LVOT Pk Grad: 6.00 LVOT Mn Grad: 3.00 LVOT Diam: 1.90 LVOT Area: 2.84 Diastolic Function MV Pk E: 0.90 MV Pk A: 1.16 E/A: 0.80 E'Medial: 5.11 E/E' Med: 17.70 E' Laterial: 4.13 E/E' Lat: 21.90 Right Ventricle TAPSE (mm): 26.00 TVS' Adalid: 17.00 Tricuspid Valve TR Pk Adalid: 2.59 TR Pk Grad: 27.00 RA Press: 3.00 RVSP: 30.00 Great Vessels Aorta Ao Root-2D: 3.20 2.0-3.7 cm Ao Asc: 3.80 2.1-3.4 cm Pulmonary Veins Pulm Vein S/D 0.70 Pulmonary Valve PV Pk Adalid: 1.73 Peak PV Grad: 12.00 Updated in Other Vendor System with Status of Final Syed Castillo MD electronically signed on 07/05/2025 3:14:44 PM with status of Final
[2025-07-04 09:15] VITALS: BP 141/79; PULSE 72; RESP 16; TEMP 36.2; O2SAT 96
[2025-07-04] MEDS: PT OWN (Vibegron [Gemtesa] 75 mg tablet) 75 EACH PO (10:08)
[2025-07-04] MEDS: Ferrous Sulfate 324 MG TABLET.DR PO (10:12)
[2025-07-04] MEDS: Aspirin Enteric Coated 81 MG TABLET.DR PO (10:15)
--- NOTE | 2025-07-04 15:22 | P.PNIM_ITS ---
Subjective Subjective Date of Service: 07/04/25 Interval History: Patient was seen and examined, continues on antibiotic, she is afebrile. Limited cooperation as patient only wants to go home. Respiratory rate even and regular. Per staff she is eating and drinking without any issues. Review of Systems She denies any shortness of breath or chest pain, she denies any abdominal pain. Refuses to answer any other questions. Physical Exam 2 Exam: Exam: CONST: Alert and confused, in NAD. Well nourished HEENT: Normocephalic, atraumatic, MMM RESP: Lungs clear, RRR even and regular HEART:,RRR, S1, S2. No edema GI:Abdomen Soft NT, ND. + BS times four :Deferred SKIN: Warm dry and intact, no visible lesions or rashes NEURO:CN II-XII Intact bilaterally, moving all extremities, Speech clear PSYCH: Flat affect, speaking in full sentences Vital Signs: Vital Signs: Last Vital Signs Temp 97.2 F 07/04/25 09:15 Pulse 72 07/04/25 09:15 Resp 16 07/04/25 09:15 BP 141/79 H 07/04/25 09:15 Pulse Ox 96 07/04/25 09:15 O2 Del Method Room Air 07/04/25 09:15 BMI result Body Mass Index 27.8 Extrem: Left upper extremity: cyanosis Objective Data Active Medications Acetaminophen (Acetaminophen 325 Mg Tablet) 650 mg PO Q4H PRN PRN Reason: Pain Last Admin: 07/02/25 09:49 Dose: 650 mg Documented By: SAGAR Al Hydroxide/Mg Hydroxide (Magnesium Hydrox/Alum Hydrox 30 Ml Oral.Susp) 30 ml PO Q6H PRN PRN Reason: Heartburn/Nausea Ascorbic Acid (Ascorbic Acid 500 Mg Tablet) 500 mg PO BID [facility] Last Admin: 07/04/25 10:12 Dose: 500 mg Documented By: FOREST Aspirin (Aspirin Enteric Coated 81 Mg Tablet.) 81 mg PO DAILY [facility] Last Admin: 07/04/25 10:15 Dose: 81 mg Documented By: FOREST Betamethasone Dipropion Augmented (Betamethasone Dip Aug 0.05% Cr 15 Gm Tube) 1 appl TOPICAL BID PRN PRN Reason: Dry areas on hand Diazepam (Diazepam 2 Mg Tablet) 2 mg PO DAILY PRN PRN Reason: Anxiety Last Admin: 07/04/25 01:32 Dose: 2 mg Documented By: PINO Diazepam (Diazepam 5 Mg Tablet) 5 mg PO TID [facility] Last Admin: 07/04/25 14:50 Dose: 5 mg Documented By: FOREST Divalproex Sodium (Divalproex Sodium 250 Mg Tablet.) 750 mg PO BID [facility] Docusate Sodium (Docusate Sodium 100 Mg Capsule) 100 mg PO BID [facility] Last Admin: 07/04/25 10:11 Dose: 100 mg Documented By: FOREST Donepezil HCl (Donepezil Hcl 5 Mg Tablet) 5 mg PO BEDTIME [facility] Last Admin: 07/03/25 20:42 Dose: 5 mg Documented By: PINO Doxycycline Monohydrate (Doxycycline Monohydrate 100 Mg Capsule) 100 mg PO Q12H [facility] Stop: 07/13/25 09:59 Last Admin: 07/04/25 10:17 Dose: 100 mg Documented By: FOREST Ferrous Sulfate (Ferrous Sulfate 324 Mg Tablet.) 324 mg PO MOWEFR@0900 [facility] Last Admin: 07/04/25 10:12 Dose: 324 mg Documented By: FOREST Fluticasone Propionate (Fluticasone Propionate Nasal 16 Gm [place]) 1 spray NOSTRIL-B BID PRN PRN Reason: Nasal Congestion Guaifenesin/Dextromethorphan (Guaifenesin Dm 100/10/5 Ml 5 Ml Syrup) 10 ml PO QID PRN PRN Reason: Cough Levothyroxine Sodium (Levothyroxine Sodium 50 Mcg Tablet) 50 mcg PO 0630 [facility] Last Admin: 07/04/25 06:36 Dose: 50 mcg Documented By: PINO Levothyroxine Sodium (Levothyroxine Sodium 200 Mcg Tablet) 200 mcg PO 0630 [facility] Last Admin: 07/04/25 06:36 Dose: 200 mcg Documented By: PINO Loratadine (Loratadine 10 Mg Tablet) 10 mg PO DAILY [facility] Last Admin: 07/04/25 10:12 Dose: 10 mg Documented By: FOREST Magnesium Hydroxide (Milk Of Magnesia 30 Ml Oral.Susp) 30 ml PO DAILY PRN PRN Reason: Constipation Melatonin (Melatonin 3 Mg Tablet) 9 mg PO BEDTIME [facility] Last Admin: 07/03/25 20:41 Dose: 9 mg Documented By: PINO Memantine (Memantine Hcl 5 Mg Tablet) 5 mg PO BID [facility] Last Admin: 07/04/25 10:10 Dose: 5 mg Documented By: FOREST Multivitamins/Vitamin C (Multivitamin Tablet) 1 tab PO DAILY [facility] Last Admin: 07/04/25 10:15 Dose: 1 tab Documented By: FOREST Pt Own (Vibegron [ Gemtesa] 75 Mg Tablet) 75 mg PO DAILY [facility] Last Admin: 07/04/25 10:08 Dose: 75 mg Documented By: FOREST Nystatin (Nystatin Powder 15 Gm Bottle) 1 appl TOPICAL BID PRN; Protocol PRN Reason: Rash Olanzapine (Olanzapine Odt 10 Mg Tab.Rapdis) 10 mg TRANSLINGU Q6H PRN PRN Reason: agitation Last Admin: 07/02/25 10:51 Dose: 10 mg Documented By: SAGAR Olanzapine (Olanzapine 10 Mg Tablet) 10 mg PO TID [facility] Last Admin: 07/04/25 14:49 Dose: 10 mg Documented By: FOREST Quetiapine Fumarate (Quetiapine Fumarate 200 Mg Tablet) 200 mg PO DAILY@1200 [facility] Last Admin: 07/04/25 11:41 Dose: 200 mg Documented By: FOREST Quetiapine Fumarate (Quetiapine Fumarate 100 Mg Tablet) 100 mg PO BID [facility] Last Admin: 07/04/25 10:13 Dose: 100 mg Documented By: FOREST Senna (Sennosides 8.6 Mg Tablet) 8.6 mg PO Q48H [facility] Last Admin: 07/03/25 09:38 Dose: 8.6 mg Documented By: FOREST Sertraline HCl (Sertraline Hcl 100 Mg Tablet) 100 mg PO DAILY [facility] Tamsulosin HCl (Tamsulosin Hcl 0.4 Mg Capsule) 0.4 mg PO DAILY [facility] Last Admin: 07/04/25 10:10 Dose: 0.4 mg Documented By: FOREST Trazodone HCl (Trazodone Hcl 50 Mg Tablet) 150 mg PO BEDTIME [facility] Last Admin: 07/03/25 20:40 Dose: 150 mg Documented By: PINO Triamcinolone Acetonide (Triamcinolone Acet 0.1 % Oint 15 Gm Tube) 1 appl TOPICAL BID PRN PRN Reason: Skin Irritation Labs 06/19/25 17:56 06/25/25 10:24 Assessment and Plan (1) Cardiomegaly: Status: Acute Plan 69-year-old female with past medical history as listed above admitted to [facility] for mood stabilization after presenting with aggressive behavior, refusal of meds. Dementia with behavioral disturbances/bipolar disorder/anxiety Treatment per psychiatric team Cardiomegaly/cough/Abnormal chest x-ray Treatment with doxycycline and Mucinex Repeat chest x-ray in 3-4 weeks Echo pending Iron deficiency anemia Continue iron 3 times weekly Hypothyroidism. Status post thyroid removal Continue levothyroxine 250 mcg daily Frequent UTIs/OAB Most recent UTI without evidence of infection Continue vitamin-C, Flomax, Gemtesa Recently treated for UTI 06/16- Avoid obtaining urine cultures unless patient displays symptoms specifically localize to urinary tract, evidence of infection including fever, tachycardia, symptoms of UTI. Dementia Continue Namenda and Aricept. Melatonin at bedtime Thank you for allowing me to participate in the care of this patient. Will follow as needed, please notify medical provider with any changes in condition or concerns. Quality Stroke Does the patient have a stroke diagnosis?: No VTE Prior VTE?: No VTE Risk Level:: Medical - low VTE Device Contraindication: Treatment Not Indicated VTE Drug Contraindication: Treatment Not Indicated
--- NOTE | 2025-07-04 16:00 | HO.PSYCHPN ---
Subjective Subjective Date of Service: 07/04/25 Reason For Visit: Combative Behaviors Subjective Notes: Conditional Voluntary Healthcare Proxy: Yes Interim History: Pt slept through the night. She continues to ask to be discharged, yelling at this senior grant writer I hate you when informed dc is not scheduled for today. No SI/HI. No signs of psychosis. She is eating well. She had a staff member from her come to see her and she played cards with her. No aggression towards others nor throwing things. Medication Compliance: Yes Review of Systems Review of Systems She denies any shortness of breath or chest pain, she denies any abdominal pain. Refuses to answer any other questions. Yes all other systems are reviewed and are negative, Unobtainable due to mental condition and Unobtainable due to mental status Mental Status Exam Mental Status Exam Narrative: Appearance: wearing casual clothing, fair hygiene Behavior: hostile Psychomotor: intermittent agitation. Speech: mumbles, difficult to understand at times, spontaneous TP: wanting to go home TC: wanting to go home, profanities to staff. Mood: I want to go home Affect: irritable, agitated SI: denies HI: denies VH/AH: no signs Delusions: no overt delusions Insight/judgment: impaired x2 alert, oriented to hospital, not so much to situation Diagnostics Vital Signs (24Hr): Vital Signs - 24 hr 07/04/25 09:15 Temperature 97.2 F Pulse Rate 72 Respiratory Rate 16 Blood Pressure 141/79 H Pulse Oximetry 96 Oxygen Delivery Method Room Air BMI result Body Mass Index 27.8 Labs 06/19/25 17:56 06/25/25 10:24 Imaging Radiology Impressions: ITS Impressions Chest X-Ray 07/02/25 15:14 IMPRESSION: Concerning interstitial lung edema. Questionable airspace disease, left lower lung lobe. Electronically signed by: Srinivasan Baron MD 07/02/2025 03:30 PM EDT Medications Medications Current Medications Acetaminophen (Acetaminophen 325 Mg Tablet) 650 mg PO Q4H PRN PRN Reason: Pain Last Admin: 07/02/25 09:49 Dose: 650 mg Al Hydroxide/Mg Hydroxide (Magnesium Hydrox/Alum Hydrox 30 Ml Oral.Susp) 30 ml PO Q6H PRN PRN Reason: Heartburn/Nausea Ascorbic Acid (Ascorbic Acid 500 Mg Tablet) 500 mg PO BID [facility] Last Admin: 07/04/25 10:12 Dose: 500 mg Aspirin (Aspirin Enteric Coated 81 Mg Tablet.) 81 mg PO DAILY [facility] Last Admin: 07/04/25 10:15 Dose: 81 mg Betamethasone Dipropion Augmented (Betamethasone Dip Aug 0.05% Cr 15 Gm Tube) 1 appl TOPICAL BID PRN PRN Reason: Dry areas on hand Diazepam (Diazepam 2 Mg Tablet) 2 mg PO DAILY PRN PRN Reason: Anxiety Last Admin: 07/04/25 01:32 Dose: 2 mg Diazepam (Diazepam 5 Mg Tablet) 5 mg PO TID [facility] Last Admin: 07/04/25 14:50 Dose: 5 mg Divalproex Sodium (Divalproex Sodium 250 Mg Tablet.) 750 mg PO BID [facility] Docusate Sodium (Docusate Sodium 100 Mg Capsule) 100 mg PO BID [facility] Last Admin: 07/04/25 10:11 Dose: 100 mg Donepezil HCl (Donepezil Hcl 5 Mg Tablet) 5 mg PO BEDTIME [facility] Last Admin: 07/03/25 20:42 Dose: 5 mg Doxycycline Monohydrate (Doxycycline Monohydrate 100 Mg Capsule) 100 mg PO Q12H [facility] Stop: 07/13/25 09:59 Last Admin: 07/04/25 10:17 Dose: 100 mg Ferrous Sulfate (Ferrous Sulfate 324 Mg Tablet.) 324 mg PO MOWEFR@0900 [facility] Last Admin: 07/04/25 10:12 Dose: 324 mg Fluticasone Propionate (Fluticasone Propionate Nasal 16 Gm Bells) 1 spray NOSTRIL-B BID PRN PRN Reason: Nasal Congestion Guaifenesin/Dextromethorphan (Guaifenesin Dm 100/10/5 Ml 5 Ml Syrup) 10 ml PO QID PRN PRN Reason: Cough Levothyroxine Sodium (Levothyroxine Sodium 50 Mcg Tablet) 50 mcg PO 0630 [facility] Last Admin: 07/04/25 06:36 Dose: 50 mcg Levothyroxine Sodium (Levothyroxine Sodium 200 Mcg Tablet) 200 mcg PO 0630 [facility] Last Admin: 07/04/25 06:36 Dose: 200 mcg Loratadine (Loratadine 10 Mg Tablet) 10 mg PO DAILY [facility] Last Admin: 07/04/25 10:12 Dose: 10 mg Magnesium Hydroxide (Milk Of Magnesia 30 Ml Oral.Susp) 30 ml PO DAILY PRN PRN Reason: Constipation Melatonin (Melatonin 3 Mg Tablet) 9 mg PO BEDTIME [facility] Last Admin: 07/03/25 20:41 Dose: 9 mg Memantine (Memantine Hcl 5 Mg Tablet) 5 mg PO BID [facility] Last Admin: 07/04/25 10:10 Dose: 5 mg Multivitamins/Vitamin C (Multivitamin Tablet) 1 tab PO DAILY [facility] Last Admin: 07/04/25 10:15 Dose: 1 tab Pt Own (Vibegron [ Gemtesa] 75 Mg Tablet) 75 mg PO DAILY [facility] Last Admin: 07/04/25 10:08 Dose: 75 mg Nystatin (Nystatin Powder 15 Gm Bottle) 1 appl TOPICAL BID PRN; Protocol PRN Reason: Rash Olanzapine (Olanzapine Odt 10 Mg Tab.Rapdis) 10 mg TRANSLINGU Q6H PRN PRN Reason: agitation Last Admin: 07/02/25 10:51 Dose: 10 mg Olanzapine (Olanzapine 10 Mg Tablet) 10 mg PO TID [facility] Last Admin: 07/04/25 14:49 Dose: 10 mg Quetiapine Fumarate (Quetiapine Fumarate 100 Mg Tablet) 100 mg PO BID [facility] Last Admin: 07/04/25 10:13 Dose: 100 mg Senna (Sennosides 8.6 Mg Tablet) 8.6 mg PO Q48H [facility] Last Admin: 07/03/25 09:38 Dose: 8.6 mg Sertraline HCl (Sertraline Hcl 100 Mg Tablet) 100 mg PO DAILY [facility] Tamsulosin HCl (Tamsulosin Hcl 0.4 Mg Capsule) 0.4 mg PO DAILY [facility] Last Admin: 07/04/25 10:10 Dose: 0.4 mg Trazodone HCl (Trazodone Hcl 50 Mg Tablet) 150 mg PO BEDTIME [facility] Last Admin: 07/03/25 20:40 Dose: 150 mg Triamcinolone Acetonide (Triamcinolone Acet 0.1 % Oint 15 Gm Tube) 1 appl TOPICAL BID PRN PRN Reason: Skin Irritation Allergies Allergies Allergy/AdvReac Type Severity Reaction Status Date / Time adhesive tape Allergy Intermediate itching Verified 06/19/25 16:08 and skin redness latex Allergy Intermediate skin rash Verified 06/19/25 16:08 and itching Seasonal Allergies Allergy Itching Verified 06/19/25 16:08 weed pollen Allergy stuffy nose Verified 06/19/25 16:08 DUST Allergy Unknown ITCHY/WATERY Uncoded 06/19/25 16:08 EYES surgical paper tape Allergy Unknown rash Uncoded 06/19/25 16:08 Tide Allergy Unknown rash Uncoded 06/19/25 16:08 Assessment & Plan Assessment & Plan (1) Major neurocognitive disorder due to vascular disease, with behavioral disturbance, severe: Status: Acute Code(s): F01.C18 - Vascular dementia, severe, with other behavioral disturbance (2) Developmental delay, moderate: Status: Deleted Code(s): R62.50 - Unspecified lack of expected normal physiological development in childhood Plan Ms. Ronquillo is a 69 year-old woman with hx of developmental delay, vascular dementia who was brought via EMS due to increase aggression. Medical work up mostly unremarkable, except for TSH 22, free T4 1.22. She is on levothyroxine, unclear if taking it as prescribed. This senior grant writer spoke with pt's psychiatric provider, Tammy Randall who reports she has been adjusting dose of seroquel. She has been on carbamazepine for a long time for mood stabilization- will check level. Will add diazepam for impulsive/explosive behaviors. PLAN 1. Admit to S1, Sect 12b, 15 minutes checks 2. will switch carbamazepine to depakote- as carbamazepine may be interacting with other medications and may not be as effective managing impulsive/explosive behaviors. 3. continue for now seroquel, but may consider changing antipsychotic medication as well. 4. obtain collateral information 5. aftercare planning. 06/25 continue to present as agitated, combative. increase depakote to 500mg po BID. continue seroquel for now but may also consider switching antipsychotics as well. 06/26 continue tx. 06/27 continue current medications, will check depakote level on Monday. 06/28 added olanzapine 10mg at night- I see she has seroquel but seems like not adequate and depakote not making substantial gain as yet olanzapine can be discontinued after more stable on depakote- 06/29 CTP- 06/30 check depakote level tomorrow AM. Will decrease seroquel to 100mg po BID, continue seroquel 200mg po at noon. Increase olazapine to 10mg po BID. plan to cross taper to olanzapine. May add sertraline as antidepressant. 07/01 will increase olanzapine to 10mg po TID, will continue current decreased dose of seroquel for now. continue depakote 500mg po BID- will adjust dose as we get levels. no signs of increase ammonia. 07/02 continue tx. febrile, no SOB. seen by hospitalist. chest xr showed interstitial edema- consult to pulmonology. 07/03 started on doxycycline by electromedical service engineer. refused echo but will attempt tomorrow. 07/04 continue tx. Reason for continued inpatient stay Substantial Risk for: inability to function Time Spent With Patient Time: Total time managing care of this patient today ____ minutes.
[2025-07-04 20:00] VITALS: BP 152/69; PULSE 78; RESP 18; TEMP 36.3; O2SAT 98
--- NOTE | 2025-07-05 07:22 | P.PNPSI_ITS ---
Subjective Subjective Date of Service: 07/05/25 Reason For Visit: Combative Behaviors Subjective Notes: Conditional Voluntary Interim History: Met with patient. Discussed with Nursing. Irritable and frustrated wanting to go home. Partial medication adherence. Very limited engagement with hand sign writer in hallway and would not engage any further afterwards I want to go home Medication Compliance: Intermittent Side effects from medications: No Attending Groups: No Review of Systems Acute medical concerns: No Review of Systems Review of Systems Yes Unobtainable due to mental status Mental Status Exam Mental Status Exam Narrative: Appearance: wearing casual clothing, fair hygiene Behavior: hostile Psychomotor: intermittent agitation. Speech: mumbles, difficult to understand at times, spontaneous TP: wanting to go home TC: wanting to go home, profanities to staff. Mood: I want to go home Affect: irritable, agitated SI: denies HI: denies VH/AH: no signs Delusions: no overt delusions Insight/judgment: impaired x2 alert, oriented to hospital, not so much to situation Diagnostics Vital Signs (24Hr): Vital Signs - 24 hr 07/04/25 09:15 07/04/25 20:00 Temperature 97.2 F 97.3 F Pulse Rate 72 78 Respiratory Rate 16 18 Blood Pressure 141/79 H 152/69 H Pulse Oximetry 96 98 Oxygen Delivery Method Room Air Room Air BMI result Body Mass Index 27.8 Labs 06/19/25 17:56 06/25/25 10:24 Imaging Radiology Impressions: ITS Impressions Chest X-Ray 07/02/25 15:14 IMPRESSION: Concerning interstitial lung edema. Questionable airspace disease, left lower lung lobe. Electronically signed by: Srinivasan Baron MD 07/02/2025 03:30 PM EDT Medications Medications Current Medications Acetaminophen (Acetaminophen 325 Mg Tablet) 650 mg PO Q4H PRN PRN Reason: Pain Last Admin: 07/02/25 09:49 Dose: 650 mg Al Hydroxide/Mg Hydroxide (Magnesium Hydrox/Alum Hydrox 30 Ml Oral.Susp) 30 ml PO Q6H PRN PRN Reason: Heartburn/Nausea Ascorbic Acid (Ascorbic Acid 500 Mg Tablet) 500 mg PO BID [facility] Last Admin: 07/04/25 20:39 Dose: 500 mg Aspirin (Aspirin Enteric Coated 81 Mg Tablet.) 81 mg PO DAILY [facility] Last Admin: 07/04/25 10:15 Dose: 81 mg Betamethasone Dipropion Augmented (Betamethasone Dip Aug 0.05% Cr 15 Gm Tube) 1 appl TOPICAL BID PRN PRN Reason: Dry areas on hand Diazepam (Diazepam 2 Mg Tablet) 2 mg PO DAILY PRN PRN Reason: Anxiety Last Admin: 07/04/25 01:32 Dose: 2 mg Diazepam (Diazepam 5 Mg Tablet) 5 mg PO TID [facility] Last Admin: 07/04/25 20:39 Dose: 5 mg Divalproex Sodium (Divalproex Sodium 250 Mg Tablet.) 750 mg PO BID [facility] Last Admin: 07/04/25 20:38 Dose: 750 mg Docusate Sodium (Docusate Sodium 100 Mg Capsule) 100 mg PO BID [facility] Last Admin: 07/04/25 20:39 Dose: 100 mg Donepezil HCl (Donepezil Hcl 5 Mg Tablet) 5 mg PO BEDTIME [facility] Last Admin: 07/04/25 20:39 Dose: 5 mg Doxycycline Monohydrate (Doxycycline Monohydrate 100 Mg Capsule) 100 mg PO Q12H [facility] Stop: 07/13/25 09:59 Last Admin: 07/04/25 20:39 Dose: 100 mg Ferrous Sulfate (Ferrous Sulfate 324 Mg Tablet.) 324 mg PO MOWEFR@0900 [facility] Last Admin: 07/04/25 10:12 Dose: 324 mg Fluticasone Propionate (Fluticasone Propionate Nasal 16 Gm [place]) 1 spray NOSTRIL-B BID PRN PRN Reason: Nasal Congestion Guaifenesin/Dextromethorphan (Guaifenesin Dm 100/10/5 Ml 5 Ml Syrup) 10 ml PO QID PRN PRN Reason: Cough Levothyroxine Sodium (Levothyroxine Sodium 50 Mcg Tablet) 50 mcg PO 0630 [facility] Last Admin: 07/05/25 05:41 Dose: 50 mcg Levothyroxine Sodium (Levothyroxine Sodium 200 Mcg Tablet) 200 mcg PO 0630 [facility] Last Admin: 07/05/25 05:41 Dose: 200 mcg Loratadine (Loratadine 10 Mg Tablet) 10 mg PO DAILY [facility] Last Admin: 07/04/25 10:12 Dose: 10 mg Magnesium Hydroxide (Milk Of Magnesia 30 Ml Oral.Susp) 30 ml PO DAILY PRN PRN Reason: Constipation Melatonin (Melatonin 3 Mg Tablet) 9 mg PO BEDTIME [facility] Last Admin: 07/04/25 20:39 Dose: 9 mg Memantine (Memantine Hcl 5 Mg Tablet) 5 mg PO BID [facility] Last Admin: 07/04/25 20:39 Dose: 5 mg Multivitamins/Vitamin C (Multivitamin Tablet) 1 tab PO DAILY [facility] Last Admin: 07/04/25 10:15 Dose: 1 tab Pt Own (Vibegron [ Gemtesa] 75 Mg Tablet) 75 mg PO DAILY [facility] Last Admin: 07/04/25 10:08 Dose: 75 mg Nystatin (Nystatin Powder 15 Gm Bottle) 1 appl TOPICAL BID PRN; Protocol PRN Reason: Rash Olanzapine (Olanzapine Odt 10 Mg Tab.Rapdis) 10 mg TRANSLINGU Q6H PRN PRN Reason: agitation Last Admin: 07/02/25 10:51 Dose: 10 mg Olanzapine (Olanzapine 10 Mg Tablet) 10 mg PO TID [facility] Last Admin: 07/04/25 20:39 Dose: 10 mg Quetiapine Fumarate (Quetiapine Fumarate 100 Mg Tablet) 100 mg PO BID [facility] Last Admin: 07/04/25 20:39 Dose: 100 mg Senna (Sennosides 8.6 Mg Tablet) 8.6 mg PO Q48H [facility] Last Admin: 07/03/25 09:38 Dose: 8.6 mg Sertraline HCl (Sertraline Hcl 100 Mg Tablet) 100 mg PO DAILY [facility] Tamsulosin HCl (Tamsulosin Hcl 0.4 Mg Capsule) 0.4 mg PO DAILY [facility] Last Admin: 07/04/25 10:10 Dose: 0.4 mg Trazodone HCl (Trazodone Hcl 50 Mg Tablet) 150 mg PO BEDTIME [facility] Last Admin: 07/04/25 20:39 Dose: 150 mg Triamcinolone Acetonide (Triamcinolone Acet 0.1 % Oint 15 Gm Tube) 1 appl TOPICAL BID PRN PRN Reason: Skin Irritation Allergies Allergies Allergy/AdvReac Type Severity Reaction Status Date / Time adhesive tape Allergy Intermediate itching Verified 06/19/25 16:08 and skin redness latex Allergy Intermediate skin rash Verified 06/19/25 16:08 and itching Seasonal Allergies Allergy Itching Verified 06/19/25 16:08 weed pollen Allergy stuffy nose Verified 06/19/25 16:08 DUST Allergy Unknown ITCHY/WATERY Uncoded 06/19/25 16:08 EYES surgical paper tape Allergy Unknown rash Uncoded 06/19/25 16:08 Tide Allergy Unknown rash Uncoded 06/19/25 16:08 Assessment & Plan Assessment & Plan (1) Major neurocognitive disorder due to vascular disease, with behavioral disturbance, severe: Status: Acute Code(s): F01.C18 - Vascular dementia, severe, with other behavioral disturbance (2) Developmental delay, moderate: Status: Deleted Code(s): R62.50 - Unspecified lack of expected normal physiological development in childhood Plan Ms. Ronquillo is a 69 year-old woman with hx of developmental delay, vascular dementia who was brought via EMS due to increase aggression. Medical work up mostly unremarkable, except for TSH 22, free T4 1.22. She is on levothyroxine, unclear if taking it as prescribed. This hand sign writer spoke with pt's psychiatric provider, Tammy Randall who reports she has been adjusting dose of seroquel. She has been on carbamazepine for a long time for mood stabilization- will check level. Will add diazepam for impulsive/explosive behaviors. PLAN 1. Admit to S1, Sect 12b, 15 minutes checks 2. will switch carbamazepine to depakote- as carbamazepine may be interacting with other medications and may not be as effective managing impulsive/explosive behaviors. 3. continue for now seroquel, but may consider changing antipsychotic medication as well. 4. obtain collateral information 5. aftercare planning. 06/25 continue to present as agitated, combative. increase depakote to 500mg po BID. continue seroquel for now but may also consider switching antipsychotics as well. 06/26 continue tx. 06/27 continue current medications, will check depakote level on Monday. 06/28 added olanzapine 10mg at night- I see she has seroquel but seems like not adequate and depakote not making substantial gain as yet olanzapine can be discontinued after more stable on depakote- 06/29 CTP- 06/30 check depakote level tomorrow AM. Will decrease seroquel to 100mg po BID, continue seroquel 200mg po at noon. Increase olazapine to 10mg po BID. plan to cross taper to olanzapine. May add sertraline as antidepressant. 07/01 will increase olanzapine to 10mg po TID, will continue current decreased dose of seroquel for now. continue depakote 500mg po BID- will adjust dose as we get levels. no signs of increase ammonia. 07/02 continue tx. febrile, no SOB. seen by hospitalist. chest xr showed interstitial edema- consult to pulmonology. 07/03 started on doxycycline by foil cutter. refused echo but will attempt tomorrow. 07/05/2025: No changes to current regimen. Reason for continued inpatient stay Substantial Risk for: inability to function and rapid decompensation Time Spent With Patient Time: Total time managing care of this patient today ____ minutes.
[2025-07-05 08:00] VITALS: BP 149/72; PULSE 90; RESP 18; TEMP 36.8; O2SAT 95
[2025-07-05] MEDS: Aspirin Enteric Coated 81 MG TABLET.DR PO (08:30)
[2025-07-05] MEDS: PT OWN (Vibegron [Gemtesa] 75 mg tablet) 75 EACH PO (08:46)
[2025-07-05] MEDS: OLANZapine ODT 10 MG TAB.RAPDIS TRANSLINGU (16:27)
[2025-07-05 20:00] VITALS: BP 142/65; PULSE 86; RESP 18; TEMP 36.1; O2SAT 97
[2025-07-06] MEDS: OLANZapine ODT 10 MG TAB.RAPDIS TRANSLINGU (07:41)
[2025-07-06] MEDS: PT OWN (Vibegron [Gemtesa] 75 mg tablet) 75 EACH PO (07:44)
[2025-07-06] MEDS: Aspirin Enteric Coated 81 MG TABLET.DR PO (07:48)
--- NOTE | 2025-07-06 11:08 | HO.PSYCHPN ---
Subjective Subjective Date of Service: 07/06/25 Reason For Visit: Combative Behaviors Interim History: Initially pleasant. After few minutes agitated demanding discharge. Partial medication adherence. Very limited engagement and would not engage any further afterwards I want to go home Medication Compliance: Intermittent Side effects from medications: No Attending Groups: Intermittent Review of Systems Acute medical concerns: No Review of Systems Review of Systems Yes Unobtainable due to mental status Mental Status Exam Mental Status Exam Narrative: Appearance: wearing casual clothing, fair hygiene Behavior: hostile Psychomotor: intermittent agitation. Speech: mumbles, difficult to understand at times, spontaneous TP: wanting to go home TC: wanting to go home, profanities to staff. Mood: I want to go home Affect: irritable, agitated SI: denies HI: denies VH/AH: no signs Delusions: no overt delusions Insight/judgment: impaired x2 alert, oriented to hospital, not so much to situation Diagnostics Vital Signs (24Hr): Vital Signs - 24 hr 07/05/25 20:00 Temperature 97 F Pulse Rate 86 Respiratory Rate 18 Blood Pressure 142/65 H Pulse Oximetry 97 Oxygen Delivery Method Room Air BMI result Body Mass Index 27.8 Labs 06/19/25 17:56 06/25/25 10:24 Imaging Radiology Impressions: ITS Impressions Chest X-Ray 07/02/25 15:14 IMPRESSION: Concerning interstitial lung edema. Questionable airspace disease, left lower lung lobe. Electronically signed by: Srinivasan Baron MD 07/02/2025 03:30 PM EDT RP Medications Medications Current Medications Acetaminophen (Acetaminophen 325 Mg Tablet) 650 mg PO Q4H PRN PRN Reason: Pain Last Admin: 07/02/25 09:49 Dose: 650 mg Al Hydroxide/Mg Hydroxide (Magnesium Hydrox/Alum Hydrox 30 Ml Oral.Susp) 30 ml PO Q6H PRN PRN Reason: Heartburn/Nausea Ascorbic Acid (Ascorbic Acid 500 Mg Tablet) 500 mg PO BID [facility] Last Admin: 07/06/25 07:56 Dose: 500 mg Aspirin (Aspirin Enteric Coated 81 Mg Tablet.) 81 mg PO DAILY [facility] Last Admin: 07/06/25 07:48 Dose: 81 mg Betamethasone Dipropion Augmented (Betamethasone Dip Aug 0.05% Cr 15 Gm Tube) 1 appl TOPICAL BID PRN PRN Reason: Dry areas on hand Diazepam (Diazepam 2 Mg Tablet) 2 mg PO DAILY PRN PRN Reason: Anxiety Last Admin: 07/05/25 16:27 Dose: 2 mg Diazepam (Diazepam 5 Mg Tablet) 5 mg PO TID [facility] Last Admin: 07/06/25 07:41 Dose: 5 mg Divalproex Sodium (Divalproex Sodium 250 Mg Tablet.) 750 mg PO BID [facility] Last Admin: 07/06/25 07:38 Dose: 750 mg Docusate Sodium (Docusate Sodium 100 Mg Capsule) 100 mg PO BID [facility] Last Admin: 07/06/25 07:41 Dose: 100 mg Donepezil HCl (Donepezil Hcl 5 Mg Tablet) 5 mg PO BEDTIME [facility] Last Admin: 07/05/25 20:43 Dose: 5 mg Doxycycline Monohydrate (Doxycycline Monohydrate 100 Mg Capsule) 100 mg PO Q12H [facility] Stop: 07/13/25 09:59 Last Admin: 07/06/25 07:53 Dose: 100 mg Ferrous Sulfate (Ferrous Sulfate 324 Mg Tablet.) 324 mg PO MOWEFR@0900 [facility] Last Admin: 07/04/25 10:12 Dose: 324 mg Fluticasone Propionate (Fluticasone Propionate Nasal 16 Gm [place]) 1 spray NOSTRIL-B BID PRN PRN Reason: Nasal Congestion Guaifenesin/Dextromethorphan (Guaifenesin Dm 100/10/5 Ml 5 Ml Syrup) 10 ml PO QID PRN PRN Reason: Cough Levothyroxine Sodium (Levothyroxine Sodium 50 Mcg Tablet) 50 mcg PO 0630 [facility] Last Admin: 07/06/25 06:41 Dose: 50 mcg Levothyroxine Sodium (Levothyroxine Sodium 200 Mcg Tablet) 200 mcg PO 0630 [facility] Last Admin: 07/06/25 06:40 Dose: 200 mcg Loratadine (Loratadine 10 Mg Tablet) 10 mg PO DAILY [facility] Last Admin: 07/06/25 07:40 Dose: 10 mg Magnesium Hydroxide (Milk Of Magnesia 30 Ml Oral.Susp) 30 ml PO DAILY PRN PRN Reason: Constipation Melatonin (Melatonin 3 Mg Tablet) 9 mg PO BEDTIME [facility] Last Admin: 07/05/25 20:40 Dose: 9 mg Memantine (Memantine Hcl 5 Mg Tablet) 5 mg PO BID [facility] Last Admin: 07/06/25 07:41 Dose: 5 mg Multivitamins/Vitamin C (Multivitamin Tablet) 1 tab PO DAILY [facility] Last Admin: 07/06/25 07:41 Dose: 1 tab Pt Own (Vibegron [ Gemtesa] 75 Mg Tablet) 75 mg PO DAILY [facility] Last Admin: 07/06/25 07:44 Dose: 75 mg Nystatin (Nystatin Powder 15 Gm Bottle) 1 appl TOPICAL BID PRN; Protocol PRN Reason: Rash Olanzapine (Olanzapine Odt 10 Mg Tab.Rapdis) 10 mg TRANSLINGU Q6H PRN PRN Reason: agitation Last Admin: 07/06/25 07:41 Dose: 10 mg Olanzapine (Olanzapine 10 Mg Tablet) 10 mg PO TID [facility] Last Admin: 07/06/25 07:48 Dose: 10 mg Quetiapine Fumarate (Quetiapine Fumarate 100 Mg Tablet) 100 mg PO BID [facility] Last Admin: 07/06/25 07:41 Dose: 100 mg Senna (Sennosides 8.6 Mg Tablet) 8.6 mg PO Q48H [facility] Last Admin: 07/05/25 08:30 Dose: 8.6 mg Sertraline HCl (Sertraline Hcl 100 Mg Tablet) 100 mg PO DAILY [facility] Last Admin: 07/06/25 07:41 Dose: 100 mg Tamsulosin HCl (Tamsulosin Hcl 0.4 Mg Capsule) 0.4 mg PO DAILY [facility] Last Admin: 07/06/25 07:41 Dose: 0.4 mg Trazodone HCl (Trazodone Hcl 50 Mg Tablet) 150 mg PO BEDTIME [facility] Last Admin: 07/05/25 20:39 Dose: 150 mg Triamcinolone Acetonide (Triamcinolone Acet 0.1 % Oint 15 Gm Tube) 1 appl TOPICAL BID PRN PRN Reason: Skin Irritation Allergies Allergies Allergy/AdvReac Type Severity Reaction Status Date / Time adhesive tape Allergy Intermediate itching Verified 06/19/25 16:08 and skin redness latex Allergy Intermediate skin rash Verified 06/19/25 16:08 and itching Seasonal Allergies Allergy Itching Verified 06/19/25 16:08 weed pollen Allergy stuffy nose Verified 06/19/25 16:08 DUST Allergy Unknown ITCHY/WATERY Uncoded 06/19/25 16:08 EYES surgical paper tape Allergy Unknown rash Uncoded 06/19/25 16:08 Tide Allergy Unknown rash Uncoded 06/19/25 16:08 Assessment & Plan Assessment & Plan (1) Major neurocognitive disorder due to vascular disease, with behavioral disturbance, severe: Status: Acute Code(s): F01.C18 - Vascular dementia, severe, with other behavioral disturbance (2) Developmental delay, moderate: Status: Deleted Code(s): R62.50 - Unspecified lack of expected normal physiological development in childhood Plan Ms. Ronquillo is a 69 year-old woman with hx of developmental delay, vascular dementia who was brought via EMS due to increase aggression. Medical work up mostly unremarkable, except for TSH 22, free T4 1.22. She is on levothyroxine, unclear if taking it as prescribed. This designer writer spoke with pt's psychiatric provider, Tammy Randall who reports she has been adjusting dose of seroquel. She has been on carbamazepine for a long time for mood stabilization- will check level. Will add diazepam for impulsive/explosive behaviors. PLAN 1. Admit to S1, Sect 12b, 15 minutes checks 2. will switch carbamazepine to depakote- as carbamazepine may be interacting with other medications and may not be as effective managing impulsive/explosive behaviors. 3. continue for now seroquel, but may consider changing antipsychotic medication as well. 4. obtain collateral information 5. aftercare planning. 06/25 continue to present as agitated, combative. increase depakote to 500mg po BID. continue seroquel for now but may also consider switching antipsychotics as well. 06/26 continue tx. 06/27 continue current medications, will check depakote level on Monday. 06/28 added olanzapine 10mg at night- I see she has seroquel but seems like not adequate and depakote not making substantial gain as yet olanzapine can be discontinued after more stable on depakote- 06/29 CTP- 06/30 check depakote level tomorrow AM. Will decrease seroquel to 100mg po BID, continue seroquel 200mg po at noon. Increase olazapine to 10mg po BID. plan to cross taper to olanzapine. May add sertraline as antidepressant. 07/01 will increase olanzapine to 10mg po TID, will continue current decreased dose of seroquel for now. continue depakote 500mg po BID- will adjust dose as we get levels. no signs of increase ammonia. 07/02 continue tx. febrile, no SOB. seen by hospitalist. chest xr showed interstitial edema- consult to pulmonology. 07/03 started on doxycycline by blueprint engineer. refused echo but will attempt tomorrow. 07/06/2025: No changes to current regimen. Reason for continued inpatient stay Substantial Risk for: inability to function Time Spent With Patient Time: Total time managing care of this patient today ____ minutes.
[2025-07-06 20:00] VITALS: BP 157/72; PULSE 73; RESP 16; TEMP 37; O2SAT 96
[2025-07-07 07:55] VITALS: BP 156/68; PULSE 92; RESP 18; TEMP 36.6; O2SAT 94
[2025-07-07] MEDS: Ferrous Sulfate 324 MG TABLET.DR PO (08:01)
[2025-07-07] MEDS: Aspirin Enteric Coated 81 MG TABLET.DR PO (08:02)
[2025-07-07] MEDS: PT OWN (Vibegron [Gemtesa] 75 mg tablet) 75 EACH PO (08:02)
--- NOTE | 2025-07-07 13:35 | P.PNPSI_ITS ---
Subjective Subjective Date of Service: 07/07/25 Reason For Visit: Combative Behaviors Subjective Notes: Conditional Voluntary Healthcare Proxy: Yes Interim History: Pt slept through the night. She continues to ask to be discharged, yelling at this automobile service writer I hate you when informed dc is not scheduled for today. No SI/HI. No signs of psychosis. She is eating well. Review of Systems Review of Systems She denies any shortness of breath or chest pain, she denies any abdominal pain. Refuses to answer any other questions. Yes all other systems are reviewed and are negative, Unobtainable due to mental condition and Unobtainable due to mental status Mental Status Exam Mental Status Exam Narrative: Appearance: wearing casual clothing, fair hygiene Behavior: hostile Psychomotor: intermittent agitation. Speech: mumbles, difficult to understand at times, spontaneous TP: wanting to go home TC: wanting to go home, profanities to staff. Mood: I want to go home Affect: irritable, agitated SI: denies HI: denies VH/AH: no signs Delusions: no overt delusions Insight/judgment: impaired x2 alert, oriented to hospital, not so much to situation Diagnostics Vital Signs (24Hr): Vital Signs - 24 hr 07/06/25 20:00 07/07/25 07:55 Temperature 98.6 F 97.9 F Pulse Rate 73 92 Respiratory Rate 16 18 Blood Pressure 157/72 H 156/68 H Pulse Oximetry 96 94 Oxygen Delivery Method Room Air Room Air BMI result Body Mass Index 27.8 Labs 06/19/25 17:56 06/25/25 10:24 Imaging Radiology Impressions: ITS Impressions Chest X-Ray 07/02/25 15:14 IMPRESSION: Concerning interstitial lung edema. Questionable airspace disease, left lower lung lobe. Electronically signed by: Srinivasan Baron MD 07/02/2025 03:30 PM EDT RP Medications Medications Current Medications Acetaminophen (Acetaminophen 325 Mg Tablet) 650 mg PO Q4H PRN PRN Reason: Pain Last Admin: 07/02/25 09:49 Dose: 650 mg Al Hydroxide/Mg Hydroxide (Magnesium Hydrox/Alum Hydrox 30 Ml Oral.Susp) 30 ml PO Q6H PRN PRN Reason: Heartburn/Nausea Ascorbic Acid (Ascorbic Acid 500 Mg Tablet) 500 mg PO BID DANA Last Admin: 07/07/25 08:02 Dose: 500 mg Aspirin (Aspirin Enteric Coated 81 Mg Tablet.) 81 mg PO DAILY [facility] Last Admin: 07/07/25 08:02 Dose: 81 mg Betamethasone Dipropion Augmented (Betamethasone Dip Aug 0.05% Cr 15 Gm Tube) 1 appl TOPICAL BID PRN PRN Reason: Dry areas on hand Diazepam (Diazepam 2 Mg Tablet) 2 mg PO DAILY PRN PRN Reason: Anxiety Last Admin: 07/06/25 15:16 Dose: 2 mg Diazepam (Diazepam 5 Mg Tablet) 5 mg PO TID [facility] Last Admin: 07/07/25 08:02 Dose: 5 mg Divalproex Sodium (Divalproex Sodium 250 Mg Tablet.) 750 mg PO BID [facility] Last Admin: 07/07/25 08:02 Dose: 750 mg Docusate Sodium (Docusate Sodium 100 Mg Capsule) 100 mg PO BID [facility] Last Admin: 07/07/25 08:02 Dose: 100 mg Donepezil HCl (Donepezil Hcl 5 Mg Tablet) 5 mg PO BEDTIME [facility] Last Admin: 07/06/25 20:13 Dose: 5 mg Doxycycline Monohydrate (Doxycycline Monohydrate 100 Mg Capsule) 100 mg PO Q12H [facility] Stop: 07/13/25 09:59 Last Admin: 07/07/25 10:25 Dose: 100 mg Ferrous Sulfate (Ferrous Sulfate 324 Mg Tablet.) 324 mg PO MOWEFR@0900 [facility] Last Admin: 07/07/25 08:01 Dose: 324 mg Fluticasone Propionate (Fluticasone Propionate Nasal 16 Gm [place]) 1 spray NOSTRIL-B BID PRN PRN Reason: Nasal Congestion Guaifenesin/Dextromethorphan (Guaifenesin Dm 100/10/5 Ml 5 Ml Syrup) 10 ml PO QID PRN PRN Reason: Cough Levothyroxine Sodium (Levothyroxine Sodium 50 Mcg Tablet) 50 mcg PO 0630 [facility] Last Admin: 07/06/25 06:41 Dose: 50 mcg Levothyroxine Sodium (Levothyroxine Sodium 200 Mcg Tablet) 200 mcg PO 0630 [facility] Last Admin: 07/06/25 06:40 Dose: 200 mcg Loratadine (Loratadine 10 Mg Tablet) 10 mg PO DAILY [facility] Last Admin: 07/07/25 08:01 Dose: 10 mg Magnesium Hydroxide (Milk Of Magnesia 30 Ml Oral.Susp) 30 ml PO DAILY PRN PRN Reason: Constipation Melatonin (Melatonin 3 Mg Tablet) 9 mg PO BEDTIME [facility] Last Admin: 07/06/25 20:12 Dose: 9 mg Memantine (Memantine Hcl 5 Mg Tablet) 5 mg PO BID [facility] Last Admin: 07/07/25 08:01 Dose: 5 mg Multivitamins/Vitamin C (Multivitamin Tablet) 1 tab PO DAILY [facility] Last Admin: 07/07/25 08:02 Dose: 1 tab Pt Own (Vibegron [ Gemtesa] 75 Mg Tablet) 75 mg PO DAILY [facility] Last Admin: 07/07/25 08:02 Dose: 75 mg Nystatin (Nystatin Powder 15 Gm Bottle) 1 appl TOPICAL BID PRN; Protocol PRN Reason: Rash Olanzapine (Olanzapine Odt 10 Mg Tab.Rapdis) 10 mg TRANSLINGU Q6H PRN PRN Reason: agitation Last Admin: 07/06/25 07:41 Dose: 10 mg Olanzapine (Olanzapine 10 Mg Tablet) 10 mg PO TID [facility] Last Admin: 07/07/25 08:02 Dose: 10 mg Quetiapine Fumarate (Quetiapine Fumarate 100 Mg Tablet) 100 mg PO BID [facility] Last Admin: 07/07/25 08:02 Dose: 100 mg Senna (Sennosides 8.6 Mg Tablet) 8.6 mg PO Q48H [facility] Last Admin: 07/07/25 08:01 Dose: 8.6 mg Sertraline HCl (Sertraline Hcl 100 Mg Tablet) 100 mg PO DAILY [facility] Last Admin: 07/07/25 08:02 Dose: 100 mg Tamsulosin HCl (Tamsulosin Hcl 0.4 Mg Capsule) 0.4 mg PO DAILY [facility] Last Admin: 07/07/25 08:02 Dose: 0.4 mg Trazodone HCl (Trazodone Hcl 50 Mg Tablet) 150 mg PO BEDTIME [facility] Last Admin: 07/06/25 20:11 Dose: 150 mg Triamcinolone Acetonide (Triamcinolone Acet 0.1 % Oint 15 Gm Tube) 1 appl TOPICAL BID PRN PRN Reason: Skin Irritation Allergies Allergies Allergy/AdvReac Type Severity Reaction Status Date / Time adhesive tape Allergy Intermediate itching Verified 06/19/25 16:08 and skin redness latex Allergy Intermediate skin rash Verified 06/19/25 16:08 and itching Seasonal Allergies Allergy Itching Verified 06/19/25 16:08 weed pollen Allergy stuffy nose Verified 06/19/25 16:08 DUST Allergy Unknown ITCHY/WATERY Uncoded 06/19/25 16:08 EYES surgical paper tape Allergy Unknown rash Uncoded 06/19/25 16:08 Tide Allergy Unknown rash Uncoded 06/19/25 16:08 Assessment & Plan Assessment & Plan (1) Major neurocognitive disorder due to vascular disease, with behavioral disturbance, severe: Status: Acute Code(s): F01.C18 - Vascular dementia, severe, with other behavioral disturbance (2) Developmental delay, moderate: Status: Deleted Code(s): R62.50 - Unspecified lack of expected normal physiological development in childhood Plan Ms. Ronquillo is a 69 year-old woman with hx of developmental delay, vascular dementia who was brought via EMS due to increase aggression. Medical work up mostly unremarkable, except for TSH 22, free T4 1.22. She is on levothyroxine, unclear if taking it as prescribed. This automobile service writer spoke with pt's psychiatric provider, Tammy Randall who reports she has been adjusting dose of seroquel. She has been on carbamazepine for a long time for mood stabilization- will check level. Will add diazepam for impulsive/explosive behaviors. PLAN 1. Admit to S1, Sect 12b, 15 minutes checks 2. will switch carbamazepine to depakote- as carbamazepine may be interacting with other medications and may not be as effective managing impulsive/explosive behaviors. 3. continue for now seroquel, but may consider changing antipsychotic medication as well. 4. obtain collateral information 5. aftercare planning. 06/25 continue to present as agitated, combative. increase depakote to 500mg po BID. continue seroquel for now but may also consider switching antipsychotics as well. 06/26 continue tx. 06/27 continue current medications, will check depakote level on Monday. 06/28 added olanzapine 10mg at night- I see she has seroquel but seems like not adequate and depakote not making substantial gain as yet olanzapine can be discontinued after more stable on depakote- 06/29 CTP- 06/30 check depakote level tomorrow AM. Will decrease seroquel to 100mg po BID, continue seroquel 200mg po at noon. Increase olazapine to 10mg po BID. plan to cross taper to olanzapine. May add sertraline as antidepressant. 07/01 will increase olanzapine to 10mg po TID, will continue current decreased dose of seroquel for now. continue depakote 500mg po BID- will adjust dose as we get levels. no signs of increase ammonia. 07/02 continue tx. febrile, no SOB. seen by hospitalist. chest xr showed interstitial edema- consult to pulmonology. 07/03 started on doxycycline by multineedle shirrer. refused echo but will attempt tomorrow. 07/04 continue tx. 07/07 increase valium to 5mg po TID, olanzapine 10mg po TID. continue depakote. Reason for continued inpatient stay Substantial Risk for: harm to others Time Spent With Patient Time: Total time managing care of this patient today ____ minutes.
[2025-07-07 20:00] VITALS: BP 151/66; PULSE 86; RESP 18; TEMP 37; O2SAT 96
[2025-07-08 08:10] VITALS: BP 146/64; PULSE 84; TEMP 36.8; O2SAT 96
[2025-07-08] MEDS: Aspirin Enteric Coated 81 MG TABLET.DR PO (09:01)
[2025-07-08] MEDS: PT OWN (Vibegron [Gemtesa] 75 mg tablet) 75 EACH PO (09:02)
[2025-07-08] MEDS: OLANZapine ODT 10 MG TAB.RAPDIS TRANSLINGU (12:09)
--- NOTE | 2025-07-08 19:45 | P.PNPSI_ITS ---
Subjective Subjective Date of Service: 07/08/25 Reason For Visit: Combative Behaviors Subjective Notes: Conditional Voluntary Healthcare Proxy: Yes Interim History: Pt slept through the night. She is yelling, screaming most of the day, very difficult to redirect, asking to leave. I hate you! VS elevated SBP. Review of Systems Review of Systems She denies any shortness of breath or chest pain, she denies any abdominal pain. Refuses to answer any other questions. Yes all other systems are reviewed and are negative, Unobtainable due to mental condition and Unobtainable due to mental status Mental Status Exam Mental Status Exam Narrative: Appearance: wearing casual clothing, fair hygiene Behavior: hostile Psychomotor: intermittent agitation. Speech: mumbles, difficult to understand at times, spontaneous TP: wanting to go home TC: wanting to go home, profanities to staff. Mood: I want to go home Affect: irritable, agitated SI: denies HI: denies VH/AH: no signs Delusions: no overt delusions Insight/judgment: impaired x2 alert, oriented to hospital, not so much to situation Diagnostics Vital Signs (24Hr): Vital Signs - 24 hr 07/07/25 20:00 07/08/25 08:10 Temperature 98.6 F 98.2 F Pulse Rate 86 84 Respiratory Rate 18 Blood Pressure 151/66 H 146/64 H Pulse Oximetry 96 96 Oxygen Delivery Method Room Air Room Air BMI result Body Mass Index 27.8 Labs 06/19/25 17:56 06/25/25 10:24 Imaging Radiology Impressions: ITS Impressions Chest X-Ray 07/02/25 15:14 IMPRESSION: Concerning interstitial lung edema. Questionable airspace disease, left lower lung lobe. Electronically signed by: Srinivasan Baron MD 07/02/2025 03:30 PM EDT RP Medications Medications Current Medications Acetaminophen (Acetaminophen 325 Mg Tablet) 650 mg PO Q4H PRN PRN Reason: Pain Last Admin: 07/02/25 09:49 Dose: 650 mg Al Hydroxide/Mg Hydroxide (Magnesium Hydrox/Alum Hydrox 30 Ml Oral.Susp) 30 ml PO Q6H PRN PRN Reason: Heartburn/Nausea Ascorbic Acid (Ascorbic Acid 500 Mg Tablet) 500 mg PO BID DANA Last Admin: 07/08/25 09:01 Dose: 500 mg Aspirin (Aspirin Enteric Coated 81 Mg Tablet.) 81 mg PO DAILY [facility] Last Admin: 07/08/25 09:01 Dose: 81 mg Betamethasone Dipropion Augmented (Betamethasone Dip Aug 0.05% Cr 15 Gm Tube) 1 appl TOPICAL BID PRN PRN Reason: Dry areas on hand Diazepam (Diazepam 5 Mg Tablet) 10 mg PO TID [facility] Last Admin: 07/08/25 13:47 Dose: 10 mg Divalproex Sodium (Divalproex Sodium 250 Mg Tablet.) 750 mg PO BID [facility] Last Admin: 07/08/25 09:00 Dose: 750 mg Docusate Sodium (Docusate Sodium 100 Mg Capsule) 100 mg PO BID [facility] Last Admin: 07/08/25 09:00 Dose: 100 mg Donepezil HCl (Donepezil Hcl 5 Mg Tablet) 5 mg PO BEDTIME [facility] Last Admin: 07/07/25 22:00 Dose: 5 mg Doxycycline Monohydrate (Doxycycline Monohydrate 100 Mg Capsule) 100 mg PO Q12H [facility] Stop: 07/13/25 09:59 Last Admin: 07/08/25 09:00 Dose: 100 mg Ferrous Sulfate (Ferrous Sulfate 324 Mg Tablet.) 324 mg PO MOWEFR@0900 [facility] Last Admin: 07/07/25 08:01 Dose: 324 mg Fluticasone Propionate (Fluticasone Propionate Nasal 16 Gm [place]) 1 spray NOSTRIL-B BID PRN PRN Reason: Nasal Congestion Guaifenesin/Dextromethorphan (Guaifenesin Dm 100/10/5 Ml 5 Ml Syrup) 10 ml PO QID PRN PRN Reason: Cough Levothyroxine Sodium (Levothyroxine Sodium 50 Mcg Tablet) 50 mcg PO 0630 [facility] Last Admin: 07/08/25 06:19 Dose: 50 mcg Levothyroxine Sodium (Levothyroxine Sodium 200 Mcg Tablet) 200 mcg PO 0630 [facility] Last Admin: 07/08/25 06:19 Dose: 200 mcg Loratadine (Loratadine 10 Mg Tablet) 10 mg PO DAILY [facility] Last Admin: 07/08/25 09:00 Dose: 10 mg Magnesium Hydroxide (Milk Of Magnesia 30 Ml Oral.Susp) 30 ml PO DAILY PRN PRN Reason: Constipation Melatonin (Melatonin 3 Mg Tablet) 9 mg PO BEDTIME [facility] Last Admin: 07/07/25 21:59 Dose: 9 mg Memantine (Memantine Hcl 5 Mg Tablet) 5 mg PO BID [facility] Last Admin: 07/08/25 09:00 Dose: 5 mg Multivitamins/Vitamin C (Multivitamin Tablet) 1 tab PO DAILY [facility] Last Admin: 07/08/25 09:01 Dose: 1 tab Pt Own (Vibegron [ Gemtesa] 75 Mg Tablet) 75 mg PO DAILY [facility] Last Admin: 07/08/25 09:02 Dose: 75 mg Nystatin (Nystatin Powder 15 Gm Bottle) 1 appl TOPICAL BID PRN; Protocol PRN Reason: Rash Olanzapine (Olanzapine Odt 10 Mg Tab.Rapdis) 10 mg TRANSLINGU Q6H PRN PRN Reason: agitation Last Admin: 07/08/25 12:09 Dose: 10 mg Olanzapine (Olanzapine 10 Mg Tablet) 10 mg PO TID [facility] Last Admin: 07/08/25 13:49 Dose: 10 mg Quetiapine Fumarate (Quetiapine Fumarate 100 Mg Tablet) 100 mg PO BID [facility] Last Admin: 07/08/25 09:01 Dose: 100 mg Senna (Sennosides 8.6 Mg Tablet) 8.6 mg PO Q48H [facility] Last Admin: 07/07/25 08:01 Dose: 8.6 mg Sertraline HCl (Sertraline Hcl 100 Mg Tablet) 100 mg PO DAILY [facility] Last Admin: 07/08/25 09:01 Dose: 100 mg Tamsulosin HCl (Tamsulosin Hcl 0.4 Mg Capsule) 0.4 mg PO DAILY [facility] Last Admin: 07/08/25 09:00 Dose: 0.4 mg Trazodone HCl (Trazodone Hcl 50 Mg Tablet) 150 mg PO BEDTIME [facility] Last Admin: 07/07/25 21:58 Dose: 150 mg Triamcinolone Acetonide (Triamcinolone Acet 0.1 % Oint 15 Gm Tube) 1 appl TOPICAL BID PRN PRN Reason: Skin Irritation Allergies Allergies Allergy/AdvReac Type Severity Reaction Status Date / Time adhesive tape Allergy Intermediate itching Verified 06/19/25 16:08 and skin redness latex Allergy Intermediate skin rash Verified 06/19/25 16:08 and itching Seasonal Allergies Allergy Itching Verified 06/19/25 16:08 weed pollen Allergy stuffy nose Verified 06/19/25 16:08 DUST Allergy Unknown ITCHY/WATERY Uncoded 06/19/25 16:08 EYES surgical paper tape Allergy Unknown rash Uncoded 06/19/25 16:08 Tide Allergy Unknown rash Uncoded 06/19/25 16:08 Assessment & Plan Assessment & Plan (1) Major neurocognitive disorder due to vascular disease, with behavioral disturbance, severe: Status: Acute Code(s): F01.C18 - Vascular dementia, severe, with other behavioral disturbance (2) Developmental delay, moderate: Status: Deleted Code(s): R62.50 - Unspecified lack of expected normal physiological development in childhood Plan Ms. Ronquillo is a 69 year-old woman with hx of developmental delay, vascular dementia who was brought via EMS due to increase aggression. Medical work up mostly unremarkable, except for TSH 22, free T4 1.22. She is on levothyroxine, unclear if taking it as prescribed. This fiction and nonfiction prose writer spoke with pt's psychiatric provider, Tammy Randall who reports she has been adjusting dose of seroquel. She has been on carbamazepine for a long time for mood stabilization- will check level. Will add diazepam for impulsive/explosive behaviors. PLAN 1. Admit to S1, Sect 12b, 15 minutes checks 2. will switch carbamazepine to depakote- as carbamazepine may be interacting with other medications and may not be as effective managing impulsive/explosive behaviors. 3. continue for now seroquel, but may consider changing antipsychotic medication as well. 4. obtain collateral information 5. aftercare planning. 06/25 continue to present as agitated, combative. increase depakote to 500mg po BID. continue seroquel for now but may also consider switching antipsychotics as well. 06/26 continue tx. 06/27 continue current medications, will check depakote level on Monday. 06/28 added olanzapine 10mg at night- I see she has seroquel but seems like not adequate and depakote not making substantial gain as yet olanzapine can be discontinued after more stable on depakote- 06/29 CTP- 06/30 check depakote level tomorrow AM. Will decrease seroquel to 100mg po BID, continue seroquel 200mg po at noon. Increase olazapine to 10mg po BID. plan to cross taper to olanzapine. May add sertraline as antidepressant. 07/01 will increase olanzapine to 10mg po TID, will continue current decreased dose of seroquel for now. continue depakote 500mg po BID- will adjust dose as we get levels. no signs of increase ammonia. 07/02 continue tx. febrile, no SOB. seen by hospitalist. chest xr showed interstitial edema- consult to pulmonology. 07/03 started on doxycycline by chemical research worker. refused echo but will attempt tomorrow. 07/04 continue tx. 07/08- increase valium 10mg po TID, continue olanzapine, depakote 750mg po BID. increase agitation today. Reason for continued inpatient stay Substantial Risk for: inability to function Time Spent With Patient Time: Total time managing care of this patient today ____ minutes.
[2025-07-08 20:00] VITALS: BP 122/59; PULSE 73; RESP 16; O2SAT 96
[2025-07-09 08:00] VITALS: BP 163/77; PULSE 69; RESP 17; TEMP 36.1; O2SAT 96
[2025-07-09] MEDS: Aspirin Enteric Coated 81 MG TABLET.DR PO (08:10)
[2025-07-09] MEDS: Ferrous Sulfate 324 MG TABLET.DR PO (08:10)
[2025-07-09] MEDS: PT OWN (Vibegron [Gemtesa] 75 mg tablet) 75 EACH PO (08:12)
[2025-07-09] MEDS: OLANZapine ODT 10 MG TAB.RAPDIS TRANSLINGU (12:43)
--- NOTE | 2025-07-09 16:48 | P.PNPSI_ITS ---
Subjective Subjective Date of Service: 07/09/25 Reason For Visit: Combative Behaviors Subjective Notes: Conditional Voluntary Healthcare Proxy: Yes Interim History: Pt slept through the night. She was yelling for most of the day, difficult to redirect. she does take oral medications. demanding to be discharged. VS SBP elevated. Review of Systems Review of Systems She denies any shortness of breath or chest pain, she denies any abdominal pain. Refuses to answer any other questions. Yes all other systems are reviewed and are negative, Unobtainable due to mental condition and Unobtainable due to mental status Mental Status Exam Mental Status Exam Narrative: Appearance: wearing casual clothing, fair hygiene Behavior: hostile Psychomotor: intermittent agitation. Speech: mumbles, difficult to understand at times, spontaneous TP: wanting to go home TC: wanting to go home, profanities to staff. Mood: I want to go home Affect: irritable, agitated SI: denies HI: denies VH/AH: no signs Delusions: no overt delusions Insight/judgment: impaired x2 alert, oriented to hospital, not so much to situation Diagnostics Vital Signs (24Hr): Vital Signs - 24 hr 07/08/25 20:00 07/09/25 08:00 Temperature 97.0 F Pulse Rate 73 69 Respiratory Rate 16 17 Blood Pressure 122/59 L 163/77 H Pulse Oximetry 96 96 Oxygen Delivery Method Room Air Room Air BMI result Body Mass Index 27.8 Labs 06/19/25 17:56 06/25/25 10:24 Imaging Radiology Impressions: ITS Impressions Chest X-Ray 07/02/25 15:14 IMPRESSION: Concerning interstitial lung edema. Questionable airspace disease, left lower lung lobe. Electronically signed by: Srinivasan Baron MD 07/02/2025 03:30 PM EDT Medications Medications Current Medications Acetaminophen (Acetaminophen 325 Mg Tablet) 650 mg PO Q4H PRN PRN Reason: Pain Last Admin: 07/02/25 09:49 Dose: 650 mg Al Hydroxide/Mg Hydroxide (Magnesium Hydrox/Alum Hydrox 30 Ml Oral.Susp) 30 ml PO Q6H PRN PRN Reason: Heartburn/Nausea Ascorbic Acid (Ascorbic Acid 500 Mg Tablet) 500 mg PO BID DANA Last Admin: 07/09/25 08:09 Dose: 500 mg Aspirin (Aspirin Enteric Coated 81 Mg Tablet.) 81 mg PO DAILY [facility] Last Admin: 07/09/25 08:10 Dose: 81 mg Betamethasone Dipropion Augmented (Betamethasone Dip Aug 0.05% Cr 15 Gm Tube) 1 appl TOPICAL BID PRN PRN Reason: Dry areas on hand Diazepam (Diazepam 5 Mg Tablet) 10 mg PO TID [facility] Last Admin: 07/09/25 14:20 Dose: 10 mg Divalproex Sodium (Divalproex Sodium 250 Mg Tablet.) 750 mg PO BID [facility] Last Admin: 07/09/25 08:09 Dose: 750 mg Docusate Sodium (Docusate Sodium 100 Mg Capsule) 100 mg PO BID [facility] Last Admin: 07/09/25 08:10 Dose: 100 mg Donepezil HCl (Donepezil Hcl 5 Mg Tablet) 5 mg PO BEDTIME [facility] Last Admin: 07/08/25 21:23 Dose: 5 mg Doxycycline Monohydrate (Doxycycline Monohydrate 100 Mg Capsule) 100 mg PO Q12H [facility] Stop: 07/13/25 09:59 Last Admin: 07/09/25 10:04 Dose: 100 mg Ferrous Sulfate (Ferrous Sulfate 324 Mg Tablet.) 324 mg PO MOWEFR@0900 [facility] Last Admin: 07/09/25 08:10 Dose: 324 mg Fluticasone Propionate (Fluticasone Propionate Nasal 16 Gm [place]) 1 spray NOSTRIL-B BID PRN PRN Reason: Nasal Congestion Guaifenesin/Dextromethorphan (Guaifenesin Dm 100/10/5 Ml 5 Ml Syrup) 10 ml PO QID PRN PRN Reason: Cough Levothyroxine Sodium (Levothyroxine Sodium 50 Mcg Tablet) 50 mcg PO 0630 [facility] Last Admin: 07/09/25 06:22 Dose: 50 mcg Levothyroxine Sodium (Levothyroxine Sodium 200 Mcg Tablet) 200 mcg PO 0630 [facility] Last Admin: 07/09/25 06:22 Dose: 200 mcg Loratadine (Loratadine 10 Mg Tablet) 10 mg PO DAILY [facility] Last Admin: 07/09/25 08:09 Dose: 10 mg Magnesium Hydroxide (Milk Of Magnesia 30 Ml Oral.Susp) 30 ml PO DAILY PRN PRN Reason: Constipation Melatonin (Melatonin 3 Mg Tablet) 9 mg PO BEDTIME [facility] Last Admin: 07/08/25 21:22 Dose: 9 mg Memantine (Memantine Hcl 5 Mg Tablet) 5 mg PO BID [facility] Last Admin: 07/09/25 08:10 Dose: 5 mg Multivitamins/Vitamin C (Multivitamin Tablet) 1 tab PO DAILY [facility] Last Admin: 07/09/25 08:10 Dose: 1 tab Pt Own (Vibegron [ Gemtesa] 75 Mg Tablet) 75 mg PO DAILY [facility] Last Admin: 07/09/25 08:12 Dose: 75 mg Nystatin (Nystatin Powder 15 Gm Bottle) 1 appl TOPICAL BID PRN; Protocol PRN Reason: Rash Olanzapine (Olanzapine Odt 10 Mg Tab.Rapdis) 10 mg TRANSLINGU Q6H PRN PRN Reason: agitation Last Admin: 07/09/25 12:43 Dose: 10 mg Olanzapine (Olanzapine 10 Mg Tablet) 10 mg PO TID [facility] Last Admin: 07/09/25 14:20 Dose: 10 mg Quetiapine Fumarate (Quetiapine Fumarate 100 Mg Tablet) 100 mg PO BID [facility] Last Admin: 07/09/25 08:10 Dose: 100 mg Senna (Sennosides 8.6 Mg Tablet) 8.6 mg PO Q48H [facility] Last Admin: 07/09/25 08:10 Dose: 8.6 mg Sertraline HCl (Sertraline Hcl 100 Mg Tablet) 100 mg PO DAILY [facility] Last Admin: 07/09/25 08:09 Dose: 100 mg Tamsulosin HCl (Tamsulosin Hcl 0.4 Mg Capsule) 0.4 mg PO DAILY [facility] Last Admin: 07/09/25 08:09 Dose: 0.4 mg Trazodone HCl (Trazodone Hcl 50 Mg Tablet) 150 mg PO BEDTIME [facility] Last Admin: 07/08/25 21:22 Dose: 150 mg Triamcinolone Acetonide (Triamcinolone Acet 0.1 % Oint 15 Gm Tube) 1 appl TOPICAL BID PRN PRN Reason: Skin Irritation Allergies Allergies Allergy/AdvReac Type Severity Reaction Status Date / Time adhesive tape Allergy Intermediate itching Verified 06/19/25 16:08 and skin redness latex Allergy Intermediate skin rash Verified 06/19/25 16:08 and itching Seasonal Allergies Allergy Itching Verified 06/19/25 16:08 weed pollen Allergy stuffy nose Verified 06/19/25 16:08 DUST Allergy Unknown ITCHY/WATERY Uncoded 06/19/25 16:08 EYES surgical paper tape Allergy Unknown rash Uncoded 06/19/25 16:08 Tide Allergy Unknown rash Uncoded 06/19/25 16:08 Assessment & Plan Assessment & Plan (1) Major neurocognitive disorder due to vascular disease, with behavioral disturbance, severe: Status: Acute Code(s): F01.C18 - Vascular dementia, severe, with other behavioral disturbance (2) Developmental delay, moderate: Status: Deleted Code(s): R62.50 - Unspecified lack of expected normal physiological development in childhood Plan Ms. Ronquillo is a 69 year-old woman with hx of developmental delay, vascular dementia who was brought via EMS due to increase aggression. Medical work up mostly unremarkable, except for TSH 22, free T4 1.22. She is on levothyroxine, unclear if taking it as prescribed. This senior technical writer spoke with pt's psychiatric provider, Tammy Randall who reports she has been adjusting dose of seroquel. She has been on carbamazepine for a long time for mood stabilization- will check level. Will add diazepam for impulsive/explosive behaviors. PLAN 1. Admit to S1, Sect 12b, 15 minutes checks 2. will switch carbamazepine to depakote- as carbamazepine may be interacting with other medications and may not be as effective managing impulsive/explosive behaviors. 3. continue for now seroquel, but may consider changing antipsychotic medication as well. 4. obtain collateral information 5. aftercare planning. 06/25 continue to present as agitated, combative. increase depakote to 500mg po BID. continue seroquel for now but may also consider switching antipsychotics as well. 06/26 continue tx. 06/27 continue current medications, will check depakote level on Monday. 06/28 added olanzapine 10mg at night- I see she has seroquel but seems like not adequate and depakote not making substantial gain as yet olanzapine can be discontinued after more stable on depakote- 06/29 CTP- 06/30 check depakote level tomorrow AM. Will decrease seroquel to 100mg po BID, continue seroquel 200mg po at noon. Increase olazapine to 10mg po BID. plan to cross taper to olanzapine. May add sertraline as antidepressant. 07/01 will increase olanzapine to 10mg po TID, will continue current decreased dose of seroquel for now. continue depakote 500mg po BID- will adjust dose as we get levels. no signs of increase ammonia. 07/02 continue tx. febrile, no SOB. seen by hospitalist. chest xr showed interstitial edema- consult to pulmonology. 07/03 started on doxycycline by general worker. refused echo but will attempt tomorrow. 07/04 continue tx. 07/08- increase valium 10mg po TID, continue olanzapine, depakote 750mg po BID. increase agitation today. 07/09 continue tx. Reason for continued inpatient stay Substantial Risk for: inability to function Time Spent With Patient Time: Total time managing care of this patient today ____ minutes.
[2025-07-09 20:00] VITALS: BP 144/72; PULSE 84; RESP 18; TEMP 36.4; O2SAT 96
[2025-07-10 08:00] VITALS: BP 145/79; PULSE 73; RESP 18; TEMP 36.5; O2SAT 98
[2025-07-10] MEDS: PT OWN (Vibegron [Gemtesa] 75 mg tablet) 75 EACH PO (08:43)
[2025-07-10] MEDS: Aspirin Enteric Coated 81 MG TABLET.DR PO (08:45)
[2025-07-10] MEDS: OLANZapine ODT 10 MG TAB.RAPDIS TRANSLINGU (09:31)
--- NOTE | 2025-07-10 17:32 | HO.PSYCHPN ---
Subjective Subjective Date of Service: 07/10/25 Reason For Visit: Combative Behaviors Subjective Notes: Conditional Voluntary Healthcare Proxy: Yes Interim History: Pt slept through the night. She was calmer today, less yelling but still asking to be discharged. She is taking medications. Review of Systems Review of Systems She denies any shortness of breath or chest pain, she denies any abdominal pain. Refuses to answer any other questions. Yes all other systems are reviewed and are negative, Unobtainable due to mental condition and Unobtainable due to mental status Mental Status Exam Mental Status Exam Narrative: Appearance: wearing casual clothing, fair hygiene Behavior: hostile Psychomotor: intermittent agitation. Speech: mumbles, difficult to understand at times, spontaneous TP: wanting to go home TC: wanting to go home, profanities to staff. Mood: I want to go home Affect: irritable, agitated SI: denies HI: denies VH/AH: no signs Delusions: no overt delusions Insight/judgment: impaired x2 alert, oriented to hospital, not so much to situation Diagnostics Vital Signs (24Hr): Vital Signs - 24 hr 07/09/25 20:00 07/10/25 08:00 Temperature 97.5 F 97.7 F Pulse Rate 84 73 Respiratory Rate 18 18 Blood Pressure 144/72 H 145/79 H Pulse Oximetry 96 98 Oxygen Delivery Method Room Air Room Air BMI result Body Mass Index 27.8 Labs 06/19/25 17:56 06/25/25 10:24 Imaging Radiology Impressions: ITS Impressions Chest X-Ray 07/02/25 15:14 IMPRESSION: Concerning interstitial lung edema. Questionable airspace disease, left lower lung lobe. Electronically signed by: Srinivasan Baron MD 07/02/2025 03:30 PM EDT Medications Medications Current Medications Acetaminophen (Acetaminophen 325 Mg Tablet) 650 mg PO Q4H PRN PRN Reason: Pain Last Admin: 07/02/25 09:49 Dose: 650 mg Al Hydroxide/Mg Hydroxide (Magnesium Hydrox/Alum Hydrox 30 Ml Oral.Susp) 30 ml PO Q6H PRN PRN Reason: Heartburn/Nausea Ascorbic Acid (Ascorbic Acid 500 Mg Tablet) 500 mg PO BID [facility]S [facility]CLUDE 234 BEDS AT [facility] Last Admin: 07/10/25 08:45 Dose: 500 mg Aspirin (Aspirin Enteric Coated 81 Mg Tablet.Dr) 81 mg PO DAILY [facility]S [facility]CLUDE 234 BEDS AT [facility] Last Admin: 07/10/25 08:45 Dose: 81 mg Betamethasone Dipropion Augmented (Betamethasone Dip Aug 0.05% Cr 15 Gm Tube) 1 appl TOPICAL BID PRN PRN Reason: Dry areas on hand Diazepam (Diazepam 5 Mg Tablet) 10 mg PO TID COUNTS [facility]CLUDE 234 BEDS AT [facility] Last Admin: 07/10/25 14:02 Dose: 10 mg Divalproex Sodium (Divalproex Sodium 250 Mg Tablet.) 750 mg PO BID [facility]S INCLUDE 234 BEDS AT [facility] Last Admin: 07/10/25 08:44 Dose: 750 mg Docusate Sodium (Docusate Sodium 100 Mg Capsule) 100 mg PO BID [facility]S [facility]CLUDE 234 BEDS AT [facility] Last Admin: 07/10/25 08:46 Dose: 100 mg Donepezil HCl (Donepezil Hcl 5 Mg Tablet) 5 mg PO BEDTIME [facility]S [facility]CLUDE 234 BEDS AT [facility] Last Admin: 07/09/25 20:41 Dose: 5 mg Doxycycline Monohydrate (Doxycycline Monohydrate 100 Mg Capsule) 100 mg PO Q12H [facility]S INCLUDE 234 BEDS AT [facility] Stop: 07/13/25 09:59 Last Admin: 07/10/25 09:27 Dose: 100 mg Ferrous Sulfate (Ferrous Sulfate 324 Mg Tablet.) 324 mg PO MOWEFR@0900 [facility]S [facility]CLUDE 234 BEDS AT [facility] Last Admin: 07/09/25 08:10 Dose: 324 mg Fluticasone Propionate (Fluticasone Propionate Nasal 16 Gm [place]) 1 spray NOSTRIL-B BID PRN PRN Reason: Nasal Congestion Guaifenesin/Dextromethorphan (Guaifenesin Dm 100/10/5 Ml 5 Ml Syrup) 10 ml PO QID PRN PRN Reason: Cough Levothyroxine Sodium (Levothyroxine Sodium 50 Mcg Tablet) 50 mcg PO 0630 [facility]S [facility]CLUDE 234 BEDS AT [facility] Last Admin: 07/10/25 05:44 Dose: 50 mcg Levothyroxine Sodium (Levothyroxine Sodium 200 Mcg Tablet) 200 mcg PO 0630 [facility]S [facility]CLUDE 234 BEDS AT [facility] Last Admin: 07/10/25 05:44 Dose: 200 mcg Loratadine (Loratadine 10 Mg Tablet) 10 mg PO DAILY [facility] 234 BEDS AT [facility] Last Admin: 07/10/25 08:47 Dose: 10 mg Magnesium Hydroxide (Milk Of Magnesia 30 Ml Oral.Susp) 30 ml PO DAILY PRN PRN Reason: Constipation Melatonin (Melatonin 3 Mg Tablet) 9 mg PO BEDTIME [facility]S [facility]CLUDE 234 BEDS AT [facility] Last Admin: 07/09/25 20:40 Dose: 9 mg Memantine (Memantine Hcl 5 Mg Tablet) 5 mg PO BID [facility]S [facility]CLUDE 234 BEDS AT [facility] Last Admin: 07/10/25 08:46 Dose: 5 mg Multivitamins/Vitamin C (Multivitamin Tablet) 1 tab PO DAILY [facility] 234 BEDS AT [facility] Last Admin: 07/10/25 08:45 Dose: 1 tab Pt Own (Vibegron [ Gemtesa] 75 Mg Tablet) 75 mg PO DAILY [facility] 234 BEDS AT [facility] Last Admin: 07/10/25 08:43 Dose: 75 mg Nystatin (Nystatin Powder 15 Gm Bottle) 1 appl TOPICAL BID PRN; Protocol PRN Reason: Rash Olanzapine (Olanzapine Odt 10 Mg Tab.Rapdis) 10 mg TRANSLINGU Q6H PRN PRN Reason: agitation Last Admin: 07/10/25 09:31 Dose: 10 mg Olanzapine (Olanzapine 10 Mg Tablet) 10 mg PO TID [facility]S [facility]CLUDE 234 BEDS AT [facility] Last Admin: 07/10/25 14:02 Dose: 10 mg Quetiapine Fumarate (Quetiapine Fumarate 100 Mg Tablet) 100 mg PO BID [facility]S [facility]CLUDE 234 BEDS AT [facility] Last Admin: 07/10/25 08:45 Dose: 100 mg Senna (Sennosides 8.6 Mg Tablet) 8.6 mg PO Q48H COUNTS INCLUDE 234 BEDS AT [facility] Last Admin: 07/09/25 08:10 Dose: 8.6 mg Sertraline HCl (Sertraline Hcl 100 Mg Tablet) 100 mg PO DAILY [facility]S [facility]CLUDE 234 BEDS AT [facility] Last Admin: 07/10/25 08:45 Dose: 100 mg Tamsulosin HCl (Tamsulosin Hcl 0.4 Mg Capsule) 0.4 mg PO DAILY [facility]CLUDE 234 BEDS AT [facility] Last Admin: 07/10/25 08:45 Dose: 0.4 mg Trazodone HCl (Trazodone Hcl 50 Mg Tablet) 150 mg PO BEDTIME [facility]S [facility]CLUDE 234 BEDS AT [facility] Last Admin: 07/09/25 20:40 Dose: 150 mg Triamcinolone Acetonide (Triamcinolone Acet 0.1 % Oint 15 Gm Tube) 1 appl TOPICAL BID PRN PRN Reason: Skin Irritation Allergies Allergies Allergy/AdvReac Type Severity Reaction Status Date / Time adhesive tape Allergy Intermediate itching Verified 06/19/25 16:08 and skin redness latex Allergy Intermediate skin rash Verified 06/19/25 16:08 and itching Seasonal Allergies Allergy Itching Verified 06/19/25 16:08 weed pollen Allergy stuffy nose Verified 06/19/25 16:08 DUST Allergy Unknown ITCHY/WATERY Uncoded 06/19/25 16:08 EYES surgical paper tape Allergy Unknown rash Uncoded 06/19/25 16:08 Tide Allergy Unknown rash Uncoded 06/19/25 16:08 Assessment & Plan Assessment & Plan (1) Major neurocognitive disorder due to vascular disease, with behavioral disturbance, severe: Status: Acute Code(s): F01.C18 - Vascular dementia, severe, with other behavioral disturbance (2) Developmental delay, moderate: Status: Deleted Code(s): R62.50 - Unspecified lack of expected normal physiological development in childhood Plan Ms. Ronquillo is a 69 year-old woman with hx of developmental delay, vascular dementia who was brought via EMS due to increase aggression. Medical work up mostly unremarkable, except for TSH 22, free T4 1.22. She is on levothyroxine, unclear if taking it as prescribed. This telegraphic typewriter installer spoke with pt's psychiatric provider, Tammy Randall who reports she has been adjusting dose of seroquel. She has been on carbamazepine for a long time for mood stabilization- will check level. Will add diazepam for impulsive/explosive behaviors. PLAN 1. Admit to S1, Sect 12b, 15 minutes checks 2. will switch carbamazepine to depakote- as carbamazepine may be interacting with other medications and may not be as effective managing impulsive/explosive behaviors. 3. continue for now seroquel, but may consider changing antipsychotic medication as well. 4. obtain collateral information 5. aftercare planning. 06/25 continue to present as agitated, combative. increase depakote to 500mg po BID. continue seroquel for now but may also consider switching antipsychotics as well. 06/26 continue tx. 06/27 continue current medications, will check depakote level on Monday. 06/28 added olanzapine 10mg at night- I see she has seroquel but seems like not adequate and depakote not making substantial gain as yet olanzapine can be discontinued after more stable on depakote- 06/29 CTP- 06/30 check depakote level tomorrow AM. Will decrease seroquel to 100mg po BID, continue seroquel 200mg po at noon. Increase olazapine to 10mg po BID. plan to cross taper to olanzapine. May add sertraline as antidepressant. 07/01 will increase olanzapine to 10mg po TID, will continue current decreased dose of seroquel for now. continue depakote 500mg po BID- will adjust dose as we get levels. no signs of increase ammonia. 07/02 continue tx. febrile, no SOB. seen by hospitalist. chest xr showed interstitial edema- consult to pulmonology. 07/03 started on doxycycline by ager tender. refused echo but will attempt tomorrow. 07/04 continue tx. 07/08- increase valium 10mg po TID, continue olanzapine, depakote 750mg po BID. increase agitation today. 07/09 continue tx. 07/10 continue tx. Reason for continued inpatient stay Substantial Risk for: inability to function Time Spent With Patient Time: Total time managing care of this patient today ____ minutes.
[2025-07-11 08:00] VITALS: BP 139/79; PULSE 63; RESP 16; TEMP 36.6; O2SAT 98
[2025-07-11] MEDS: PT OWN (Vibegron [Gemtesa] 75 mg tablet) 75 EACH PO (08:54)
[2025-07-11] MEDS: Aspirin Enteric Coated 81 MG TABLET.DR PO (08:55)
[2025-07-11] MEDS: Ferrous Sulfate 324 MG TABLET.DR PO (08:55)
[2025-07-11] MEDS: OLANZapine ODT 10 MG TAB.RAPDIS TRANSLINGU ×2 (08:56→11:31)
--- NOTE | 2025-07-11 09:33 | P.PNPSI_ITS ---
Subjective Subjective Date of Service: 07/11/25 Reason For Visit: Combative Behaviors Subjective Notes: Conditional Voluntary Healthcare Proxy: Yes Interim History: Pt slept through the night. Continues to present with irritable mood, demanding to be discharged, yelling most of the morning, yelling at staff, difficult to redirect. She does take medications as prescribed for the most part but not very effective at this time. No SI/HI. no psychosis or delusional content. Also- not delirious. Medication Compliance: Yes Review of Systems Review of Systems She denies any shortness of breath or chest pain, she denies any abdominal pain. Refuses to answer any other questions. Yes all other systems are reviewed and are negative, Unobtainable due to mental condition and Unobtainable due to mental status Mental Status Exam Mental Status Exam Narrative: Appearance: wearing casual clothing, fair hygiene Behavior: hostile Psychomotor: intermittent agitation. Speech: mumbles, difficult to understand at times, spontaneous TP: wanting to go home TC: wanting to go home, profanities to staff. Mood: I want to go home Affect: irritable, agitated SI: denies HI: denies VH/AH: no signs Delusions: no overt delusions Insight/judgment: impaired x2 alert, oriented to hospital, not so much to situation Diagnostics Vital Signs (24Hr): Vital Signs - 24 hr 07/11/25 08:00 Temperature 97.9 F Pulse Rate 63 Respiratory Rate 16 Blood Pressure 139/79 Pulse Oximetry 98 Oxygen Delivery Method Room Air BMI result Body Mass Index 27.8 Labs 06/19/25 17:56 06/25/25 10:24 Imaging Radiology Impressions: ITS Impressions Chest X-Ray 07/02/25 15:14 IMPRESSION: Concerning interstitial lung edema. Questionable airspace disease, left lower lung lobe. Electronically signed by: Srinivasan Baron MD 07/02/2025 03:30 PM EDT Medications Medications Current Medications Acetaminophen (Acetaminophen 325 Mg Tablet) 650 mg PO Q4H PRN PRN Reason: Pain Last Admin: 07/02/25 09:49 Dose: 650 mg Al Hydroxide/Mg Hydroxide (Magnesium Hydrox/Alum Hydrox 30 Ml Oral.Susp) 30 ml PO Q6H PRN PRN Reason: Heartburn/Nausea Ascorbic Acid (Ascorbic Acid 500 Mg Tablet) 500 mg PO BID DANA Last Admin: 07/11/25 08:56 Dose: 500 mg Aspirin (Aspirin Enteric Coated 81 Mg Tablet.) 81 mg PO DAILY [facility] Last Admin: 07/11/25 08:55 Dose: 81 mg Betamethasone Dipropion Augmented (Betamethasone Dip Aug 0.05% Cr 15 Gm Tube) 1 appl TOPICAL BID PRN PRN Reason: Dry areas on hand Diazepam (Diazepam 5 Mg Tablet) 10 mg PO TID [facility] Last Admin: 07/11/25 08:55 Dose: 10 mg Divalproex Sodium (Divalproex Sodium 250 Mg Tablet.) 750 mg PO BID [facility] Last Admin: 07/11/25 08:55 Dose: 750 mg Docusate Sodium (Docusate Sodium 100 Mg Capsule) 100 mg PO BID [facility] Last Admin: 07/11/25 08:55 Dose: 100 mg Donepezil HCl (Donepezil Hcl 5 Mg Tablet) 5 mg PO BEDTIME [facility] Last Admin: 07/10/25 21:23 Dose: 5 mg Doxycycline Monohydrate (Doxycycline Monohydrate 100 Mg Capsule) 100 mg PO Q12H [facility] Stop: 07/13/25 09:59 Last Admin: 07/11/25 09:03 Dose: 100 mg Ferrous Sulfate (Ferrous Sulfate 324 Mg Tablet.) 324 mg PO MOWEFR@0900 [facility] Last Admin: 07/11/25 08:55 Dose: 324 mg Fluticasone Propionate (Fluticasone Propionate Nasal 16 Gm [place]) 1 spray NOSTRIL-B BID PRN PRN Reason: Nasal Congestion Guaifenesin/Dextromethorphan (Guaifenesin Dm 100/10/5 Ml 5 Ml Syrup) 10 ml PO QID PRN PRN Reason: Cough Levothyroxine Sodium (Levothyroxine Sodium 50 Mcg Tablet) 50 mcg PO 0630 [facility] Last Admin: 07/11/25 06:43 Dose: 50 mcg Levothyroxine Sodium (Levothyroxine Sodium 200 Mcg Tablet) 200 mcg PO 0630 [facility] Last Admin: 07/11/25 06:43 Dose: 200 mcg Loratadine (Loratadine 10 Mg Tablet) 10 mg PO DAILY [facility] Last Admin: 07/11/25 08:55 Dose: 10 mg Magnesium Hydroxide (Milk Of Magnesia 30 Ml Oral.Susp) 30 ml PO DAILY PRN PRN Reason: Constipation Melatonin (Melatonin 3 Mg Tablet) 9 mg PO BEDTIME [facility] Last Admin: 07/10/25 21:22 Dose: 9 mg Memantine (Memantine Hcl 5 Mg Tablet) 5 mg PO BID [facility] Last Admin: 07/11/25 08:55 Dose: 5 mg Multivitamins/Vitamin C (Multivitamin Tablet) 1 tab PO DAILY [facility] Last Admin: 07/11/25 08:55 Dose: 1 tab Pt Own (Vibegron [ Gemtesa] 75 Mg Tablet) 75 mg PO DAILY [facility] Last Admin: 07/11/25 08:54 Dose: 75 mg Nystatin (Nystatin Powder 15 Gm Bottle) 1 appl TOPICAL BID PRN; Protocol PRN Reason: Rash Olanzapine (Olanzapine Odt 10 Mg Tab.Rapdis) 10 mg TRANSLINGU Q6H PRN PRN Reason: agitation Last Admin: 07/11/25 08:56 Dose: 10 mg Olanzapine (Olanzapine 10 Mg Tablet) 10 mg PO TID [facility] Last Admin: 07/11/25 08:56 Dose: 10 mg Quetiapine Fumarate (Quetiapine Fumarate 100 Mg Tablet) 100 mg PO BID [facility] Last Admin: 07/11/25 08:55 Dose: 100 mg Senna (Sennosides 8.6 Mg Tablet) 8.6 mg PO Q48H [facility] Last Admin: 07/11/25 08:56 Dose: 8.6 mg Sertraline HCl (Sertraline Hcl 100 Mg Tablet) 100 mg PO DAILY [facility] Last Admin: 07/11/25 08:55 Dose: 100 mg Tamsulosin HCl (Tamsulosin Hcl 0.4 Mg Capsule) 0.4 mg PO DAILY [facility] Last Admin: 07/11/25 08:55 Dose: 0.4 mg Trazodone HCl (Trazodone Hcl 50 Mg Tablet) 150 mg PO BEDTIME [facility] Last Admin: 07/10/25 21:23 Dose: 150 mg Triamcinolone Acetonide (Triamcinolone Acet 0.1 % Oint 15 Gm Tube) 1 appl TOPICAL BID PRN PRN Reason: Skin Irritation Allergies Allergies Allergy/AdvReac Type Severity Reaction Status Date / Time adhesive tape Allergy Intermediate itching Verified 06/19/25 16:08 and skin redness latex Allergy Intermediate skin rash Verified 06/19/25 16:08 and itching Seasonal Allergies Allergy Itching Verified 06/19/25 16:08 weed pollen Allergy stuffy nose Verified 06/19/25 16:08 DUST Allergy Unknown ITCHY/WATERY Uncoded 06/19/25 16:08 EYES surgical paper tape Allergy Unknown rash Uncoded 06/19/25 16:08 Tide Allergy Unknown rash Uncoded 06/19/25 16:08 Assessment & Plan Assessment & Plan (1) Major neurocognitive disorder due to vascular disease, with behavioral disturbance, severe: Status: Acute Code(s): F01.C18 - Vascular dementia, severe, with other behavioral disturbance (2) Developmental delay, moderate: Status: Deleted Code(s): R62.50 - Unspecified lack of expected normal physiological development in childhood Plan Ms. Ronquillo is a 69 year-old woman with hx of developmental delay, vascular dementia who was brought via EMS due to increase aggression. Medical work up mostly unremarkable, except for TSH 22, free T4 1.22. She is on levothyroxine, unclear if taking it as prescribed. This securities underwriter spoke with pt's psychiatric provider, Tammy Randall who reports she has been adjusting dose of seroquel. She has been on carbamazepine for a long time for mood stabilization- will check level. Will add diazepam for impulsive/explosive behaviors. PLAN 1. Admit to S1, Sect 12b, 15 minutes checks 2. will switch carbamazepine to depakote- as carbamazepine may be interacting with other medications and may not be as effective managing impulsive/explosive behaviors. 3. continue for now seroquel, but may consider changing antipsychotic medication as well. 4. obtain collateral information 5. aftercare planning. 06/25 continue to present as agitated, combative. increase depakote to 500mg po BID. continue seroquel for now but may also consider switching antipsychotics as well. 06/26 continue tx. 06/27 continue current medications, will check depakote level on Monday. 06/28 added olanzapine 10mg at night- I see she has seroquel but seems like not adequate and depakote not making substantial gain as yet olanzapine can be discontinued after more stable on depakote- 06/29 CTP- 06/30 check depakote level tomorrow AM. Will decrease seroquel to 100mg po BID, continue seroquel 200mg po at noon. Increase olazapine to 10mg po BID. plan to cross taper to olanzapine. May add sertraline as antidepressant. 07/01 will increase olanzapine to 10mg po TID, will continue current decreased dose of seroquel for now. continue depakote 500mg po BID- will adjust dose as we get levels. no signs of increase ammonia. 07/02 continue tx. febrile, no SOB. seen by hospitalist. chest xr showed interstitial edema- consult to pulmonology. 07/03 started on doxycycline by director of entertainment. refused echo but will attempt tomorrow. 07/04 continue tx. 07/08- increase valium 10mg po TID, continue olanzapine, depakote 750mg po BID. increase agitation today. 07/09 continue tx. 07/10 continue tx. 07/11 continue tx. but may need to revisit overall treatment. Reason for continued inpatient stay Substantial Risk for: inability to function Time Spent With Patient Time: Total time managing care of this patient today ____ minutes.
[2025-07-11] MEDS: diazePAM 10 MG/2 ML CARTRIDGE IM (11:43)
--- NOTE | 2025-07-11 11:53 | PC.NURSE ---
Patient given 50 Thorazine and 10 Diazepam IM at 1150 due to agitation. PO Olanzapine administered prior to IM with minimal effect. Will continue to monitor
[2025-07-11 20:00] VITALS: BP 169/79; PULSE 70; RESP 16; TEMP 36.3; O2SAT 97
[2025-07-12 08:00] VITALS: BP 161/74; PULSE 75; RESP 16; TEMP 36.3; O2SAT 99
[2025-07-12] MEDS: PT OWN (Vibegron [Gemtesa] 75 mg tablet) 75 EACH PO (09:04)
[2025-07-12] MEDS: Aspirin Enteric Coated 81 MG TABLET.DR PO (09:06)
[2025-07-12] MEDS: Betamethasone Dip Aug 0.05% Cr 15 GM TUBE 1 APPL TOPICAL (10:02)
--- NOTE | 2025-07-12 12:47 | HO.PSYCHPN ---
Subjective Subjective Date of Service: 07/12/25 Reason For Visit: Combative Behaviors Subjective Notes: Conditional Voluntary Interim History: Patient was seen and discussed in rounds today. Records and plans were reviewed. She continues to have intermittent yelling and yesterday needed to receive an IM medication. Eating and mostly sleeping adequately. No complaints today. No changes were made today Review of Systems Review of Systems Yes Unobtainable due to mental status Mental Status Exam Mental Status Exam Narrative: Appearance: wearing casual clothing, fair hygiene Behavior: hostile Psychomotor: intermittent agitation. Speech: mumbles, difficult to understand at times, spontaneous TP: wanting to go home TC: wanting to go home, profanities to staff. Mood: I want to go home Affect: irritable, agitated SI: denies HI: denies VH/AH: no signs Delusions: no overt delusions Insight/judgment: impaired x2 alert, oriented to hospital, not so much to situation Diagnostics Vital Signs (24Hr): Vital Signs - 24 hr 07/11/25 20:00 07/12/25 08:00 Temperature 97.3 F 97.3 F Pulse Rate 70 75 Respiratory Rate 16 16 Blood Pressure 169/79 H 161/74 H Pulse Oximetry 97 99 Oxygen Delivery Method Room Air Room Air BMI result Body Mass Index 27.8 Labs 06/19/25 17:56 06/25/25 10:24 Imaging Radiology Impressions: ITS Impressions Chest X-Ray 07/02/25 15:14 IMPRESSION: Concerning interstitial lung edema. Questionable airspace disease, left lower lung lobe. Electronically signed by: Srinivasan Baron MD 07/02/2025 03:30 PM EDT Medications Medications Current Medications Acetaminophen (Acetaminophen 325 Mg Tablet) 650 mg PO Q4H PRN PRN Reason: Pain Last Admin: 07/02/25 09:49 Dose: 650 mg Al Hydroxide/Mg Hydroxide (Magnesium Hydrox/Alum Hydrox 30 Ml Oral.Susp) 30 ml PO Q6H PRN PRN Reason: Heartburn/Nausea Ascorbic Acid (Ascorbic Acid 500 Mg Tablet) 500 mg PO BID [facility] Last Admin: 07/12/25 09:05 Dose: 500 mg Aspirin (Aspirin Enteric Coated 81 Mg Tablet.) 81 mg PO DAILY [facility] Last Admin: 07/12/25 09:06 Dose: 81 mg Betamethasone Dipropion Augmented (Betamethasone Dip Aug 0.05% Cr 15 Gm Tube) 1 appl TOPICAL BID PRN PRN Reason: Dry areas on hand Last Admin: 07/12/25 10:02 Dose: 1 appl Diazepam (Diazepam 5 Mg Tablet) 10 mg PO TID [facility] Last Admin: 07/12/25 09:05 Dose: 10 mg Divalproex Sodium (Divalproex Sodium 250 Mg Tablet.) 750 mg PO BID [facility] Last Admin: 07/12/25 09:04 Dose: 750 mg Docusate Sodium (Docusate Sodium 100 Mg Capsule) 100 mg PO BID [facility] Last Admin: 07/12/25 09:05 Dose: 100 mg Donepezil HCl (Donepezil Hcl 5 Mg Tablet) 5 mg PO BEDTIME [facility] Last Admin: 07/11/25 21:12 Dose: 5 mg Doxycycline Monohydrate (Doxycycline Monohydrate 100 Mg Capsule) 100 mg PO Q12H [facility] Stop: 07/13/25 09:59 Last Admin: 07/12/25 10:02 Dose: 100 mg Ferrous Sulfate (Ferrous Sulfate 324 Mg Tablet.) 324 mg PO MOWEFR@0900 [facility] Last Admin: 07/11/25 08:55 Dose: 324 mg Fluticasone Propionate (Fluticasone Propionate Nasal 16 Gm [place]) 1 spray NOSTRIL-B BID PRN PRN Reason: Nasal Congestion Last Admin: 07/12/25 10:02 Dose: 1 spray Guaifenesin/Dextromethorphan (Guaifenesin Dm 100/10/5 Ml 5 Ml Syrup) 10 ml PO QID PRN PRN Reason: Cough Levothyroxine Sodium (Levothyroxine Sodium 50 Mcg Tablet) 50 mcg PO 0630 [facility] Last Admin: 07/12/25 06:20 Dose: 50 mcg Levothyroxine Sodium (Levothyroxine Sodium 200 Mcg Tablet) 200 mcg PO 0630 [facility] Last Admin: 07/12/25 06:20 Dose: 200 mcg Loratadine (Loratadine 10 Mg Tablet) 10 mg PO DAILY [facility] Last Admin: 07/12/25 09:06 Dose: 10 mg Magnesium Hydroxide (Milk Of Magnesia 30 Ml Oral.Susp) 30 ml PO DAILY PRN PRN Reason: Constipation Melatonin (Melatonin 3 Mg Tablet) 9 mg PO BEDTIME [facility] Last Admin: 07/11/25 21:13 Dose: 9 mg Memantine (Memantine Hcl 5 Mg Tablet) 5 mg PO BID [facility] Last Admin: 07/12/25 09:06 Dose: 5 mg Multivitamins/Vitamin C (Multivitamin Tablet) 1 tab PO DAILY [facility] Last Admin: 07/12/25 09:05 Dose: 1 tab Pt Own (Vibegron [ Gemtesa] 75 Mg Tablet) 75 mg PO DAILY [facility] Last Admin: 07/12/25 09:04 Dose: 75 mg Nystatin (Nystatin Powder 15 Gm Bottle) 1 appl TOPICAL BID PRN; Protocol PRN Reason: Rash Olanzapine (Olanzapine Odt 10 Mg Tab.Rapdis) 10 mg TRANSLINGU Q6H PRN PRN Reason: agitation Last Admin: 07/11/25 11:31 Dose: 10 mg Olanzapine (Olanzapine 10 Mg Tablet) 10 mg PO TID [facility] Last Admin: 07/12/25 09:06 Dose: 10 mg Quetiapine Fumarate (Quetiapine Fumarate 100 Mg Tablet) 100 mg PO BID [facility] Last Admin: 07/12/25 09:05 Dose: 100 mg Senna (Sennosides 8.6 Mg Tablet) 8.6 mg PO Q48H [facility] Last Admin: 07/11/25 08:56 Dose: 8.6 mg Sertraline HCl (Sertraline Hcl 50 Mg Tablet) 50 mg PO DAILY [facility] Last Admin: 07/12/25 09:05 Dose: 50 mg Tamsulosin HCl (Tamsulosin Hcl 0.4 Mg Capsule) 0.4 mg PO DAILY [facility] Last Admin: 07/12/25 09:06 Dose: 0.4 mg Trazodone HCl (Trazodone Hcl 50 Mg Tablet) 150 mg PO BEDTIME [facility] Last Admin: 07/11/25 21:13 Dose: 150 mg Triamcinolone Acetonide (Triamcinolone Acet 0.1 % Oint 15 Gm Tube) 1 appl TOPICAL BID PRN PRN Reason: Skin Irritation Allergies Allergies Allergy/AdvReac Type Severity Reaction Status Date / Time adhesive tape Allergy Intermediate itching Verified 06/19/25 16:08 and skin redness latex Allergy Intermediate skin rash Verified 06/19/25 16:08 and itching Seasonal Allergies Allergy Itching Verified 06/19/25 16:08 weed pollen Allergy stuffy nose Verified 06/19/25 16:08 DUST Allergy Unknown ITCHY/WATERY Uncoded 06/19/25 16:08 EYES surgical paper tape Allergy Unknown rash Uncoded 06/19/25 16:08 Tide Allergy Unknown rash Uncoded 06/19/25 16:08 Assessment & Plan Assessment & Plan (1) Major neurocognitive disorder due to vascular disease, with behavioral disturbance, severe: Status: Acute Code(s): F01.C18 - Vascular dementia, severe, with other behavioral disturbance (2) Developmental delay, moderate: Status: Deleted Code(s): R62.50 - Unspecified lack of expected normal physiological development in childhood Plan Ms. Ronquillo is a 69 year-old woman with hx of developmental delay, vascular dementia who was brought via EMS due to increase aggression. Medical work up mostly unremarkable, except for TSH 22, free T4 1.22. She is on levothyroxine, unclear if taking it as prescribed. This hand sign writer spoke with pt's psychiatric provider, Tammy Randall who reports she has been adjusting dose of seroquel. She has been on carbamazepine for a long time for mood stabilization- will check level. Will add diazepam for impulsive/explosive behaviors. PLAN 1. Admit to S1, Sect 12b, 15 minutes checks 2. will switch carbamazepine to depakote- as carbamazepine may be interacting with other medications and may not be as effective managing impulsive/explosive behaviors. 3. continue for now seroquel, but may consider changing antipsychotic medication as well. 4. obtain collateral information 5. aftercare planning. 06/25 continue to present as agitated, combative. increase depakote to 500mg po BID. continue seroquel for now but may also consider switching antipsychotics as well. 06/26 continue tx. 06/27 continue current medications, will check depakote level on Monday. 06/28 added olanzapine 10mg at night- I see she has seroquel but seems like not adequate and depakote not making substantial gain as yet olanzapine can be discontinued after more stable on depakote- 06/29 CTP- 06/30 check depakote level tomorrow AM. Will decrease seroquel to 100mg po BID, continue seroquel 200mg po at noon. Increase olazapine to 10mg po BID. plan to cross taper to olanzapine. May add sertraline as antidepressant. 07/01 will increase olanzapine to 10mg po TID, will continue current decreased dose of seroquel for now. continue depakote 500mg po BID- will adjust dose as we get levels. no signs of increase ammonia. 07/02 continue tx. febrile, no SOB. seen by hospitalist. chest xr showed interstitial edema- consult to pulmonology. 07/03 started on doxycycline by automatic winder operator. refused echo but will attempt tomorrow. 07/04 continue tx. 07/08- increase valium 10mg po TID, continue olanzapine, depakote 750mg po BID. increase agitation today. 07/09 continue tx. 07/10 continue tx. 07/11 continue tx. but may need to revisit overall treatment. 07/12: Continue current regimen and plans Reason for continued inpatient stay Substantial Risk for: inability to function Time Spent With Patient Time: Total time managing care of this patient today ____ minutes.
[2025-07-12] MEDS: OLANZapine ODT 10 MG TAB.RAPDIS TRANSLINGU (15:00)
[2025-07-12 20:00] VITALS: BP 155/62; PULSE 75; RESP 16; TEMP 36.1; O2SAT 99
[2025-07-13 08:00] VITALS: BP 156/76; PULSE 66; RESP 16; TEMP 36.7; O2SAT 98
[2025-07-13] MEDS: PT OWN (Vibegron [Gemtesa] 75 mg tablet) 75 EACH PO (08:18)
[2025-07-13] MEDS: Aspirin Enteric Coated 81 MG TABLET.DR PO (08:19)
--- NOTE | 2025-07-13 12:17 | HO.PSYCHPN ---
Subjective Subjective Date of Service: 07/13/25 Reason For Visit: Combative Behaviors Subjective Notes: Conditional Voluntary Interim History: Patient was seen and discussed in rounds today. Records and plans were reviewed. She has been doing better and continues to endorse anxiety but less so. No incidence of yelling. Going to groups. She had poor sleep but her trazodone is already at 150 and I do not feel comfortable increasing it further. She was okay with that. No other concerns or changes. She is looking forward to discharge mixed Monday. Review of Systems Review of Systems Yes all other systems are reviewed and are negative Mental Status Exam Mental Status Exam Narrative: Appearance: wearing casual clothing, fair hygiene Behavior: hostile Psychomotor: intermittent agitation. Speech: mumbles, difficult to understand at times, spontaneous TP: wanting to go home TC: wanting to go home, profanities to staff. Mood: I want to go home Affect: irritable, agitated SI: denies HI: denies VH/AH: no signs Delusions: no overt delusions Insight/judgment: impaired x2 alert, oriented to hospital, not so much to situation Diagnostics Vital Signs (24Hr): Vital Signs - 24 hr 07/12/25 20:00 07/13/25 08:00 Temperature 97 F 98.1 F Pulse Rate 75 66 Respiratory Rate 16 16 Blood Pressure 155/62 H 156/76 H Pulse Oximetry 99 98 Oxygen Delivery Method Room Air Room Air BMI result Body Mass Index 27.8 Labs 06/19/25 17:56 06/25/25 10:24 Imaging Radiology Impressions: ITS Impressions Chest X-Ray 07/02/25 15:14 IMPRESSION: Concerning interstitial lung edema. Questionable airspace disease, left lower lung lobe. Electronically signed by: Srinivasan Baron MD 07/02/2025 03:30 PM EDT Medications Medications Current Medications Acetaminophen (Acetaminophen 325 Mg Tablet) 650 mg PO Q4H PRN PRN Reason: Pain Last Admin: 07/02/25 09:49 Dose: 650 mg Al Hydroxide/Mg Hydroxide (Magnesium Hydrox/Alum Hydrox 30 Ml Oral.Susp) 30 ml PO Q6H PRN PRN Reason: Heartburn/Nausea Ascorbic Acid (Ascorbic Acid 500 Mg Tablet) 500 mg PO BID DANA Last Admin: 07/13/25 08:19 Dose: 500 mg Aspirin (Aspirin Enteric Coated 81 Mg Tablet.) 81 mg PO DAILY [facility] [place] Last Admin: 07/13/25 08:19 Dose: 81 mg Betamethasone Dipropion Augmented (Betamethasone Dip Aug 0.05% Cr 15 Gm Tube) 1 appl TOPICAL BID PRN PRN Reason: Dry areas on hand Last Admin: 07/12/25 10:02 Dose: 1 appl Diazepam (Diazepam 5 Mg Tablet) 10 mg PO TID [facility] Last Admin: 07/13/25 08:50 Dose: 10 mg Divalproex Sodium (Divalproex Sodium 250 Mg Tablet.) 750 mg PO BID [facility] [place] Last Admin: 07/13/25 08:18 Dose: 750 mg Docusate Sodium (Docusate Sodium 100 Mg Capsule) 100 mg PO BID [facility] [place] Last Admin: 07/13/25 08:19 Dose: 100 mg Donepezil HCl (Donepezil Hcl 5 Mg Tablet) 5 mg PO BEDTIME [facility] [place] Last Admin: 07/12/25 22:25 Dose: 5 mg Ferrous Sulfate (Ferrous Sulfate 324 Mg Tablet.) 324 mg PO MOWEFR@0900 [facility] [place] Last Admin: 07/11/25 08:55 Dose: 324 mg Fluticasone Propionate (Fluticasone Propionate Nasal 16 Gm [place]) 1 spray NOSTRIL-B BID PRN PRN Reason: Nasal Congestion Last Admin: 07/12/25 10:02 Dose: 1 spray Guaifenesin/Dextromethorphan (Guaifenesin Dm 100/10/5 Ml 5 Ml Syrup) 10 ml PO QID PRN PRN Reason: Cough Levothyroxine Sodium (Levothyroxine Sodium 50 Mcg Tablet) 50 mcg PO 0630 [facility] [place] Last Admin: 07/13/25 06:35 Dose: 50 mcg Levothyroxine Sodium (Levothyroxine Sodium 200 Mcg Tablet) 200 mcg PO 0630 [facility] [place] Last Admin: 07/13/25 06:35 Dose: 200 mcg Loratadine (Loratadine 10 Mg Tablet) 10 mg PO DAILY [facility] [place] Last Admin: 07/13/25 08:19 Dose: 10 mg Magnesium Hydroxide (Milk Of Magnesia 30 Ml Oral.Susp) 30 ml PO DAILY PRN PRN Reason: Constipation Melatonin (Melatonin 3 Mg Tablet) 9 mg PO BEDTIME [facility] [place] Last Admin: 07/12/25 22:25 Dose: 9 mg Memantine (Memantine Hcl 5 Mg Tablet) 5 mg PO BID [facility] [place] Last Admin: 07/13/25 08:18 Dose: 5 mg Multivitamins/Vitamin C (Multivitamin Tablet) 1 tab PO DAILY [facility] [place] Last Admin: 07/13/25 08:19 Dose: 1 tab Pt Own (Vibegron [ Gemtesa] 75 Mg Tablet) 75 mg PO DAILY [facility] [place] Last Admin: 07/13/25 08:18 Dose: 75 mg Nystatin (Nystatin Powder 15 Gm Bottle) 1 appl TOPICAL BID PRN; Protocol PRN Reason: Rash Olanzapine (Olanzapine Odt 10 Mg Tab.Rapdis) 10 mg TRANSLINGU Q6H PRN PRN Reason: agitation Last Admin: 07/12/25 15:00 Dose: 10 mg Olanzapine (Olanzapine 10 Mg Tablet) 10 mg PO TID [facility] [place] Last Admin: 07/13/25 08:19 Dose: 10 mg Quetiapine Fumarate (Quetiapine Fumarate 100 Mg Tablet) 100 mg PO BID [facility] [place] Last Admin: 07/13/25 08:19 Dose: 100 mg Senna (Sennosides 8.6 Mg Tablet) 8.6 mg PO Q48H [facility] [place] Last Admin: 07/13/25 08:19 Dose: 8.6 mg Sertraline HCl (Sertraline Hcl 50 Mg Tablet) 50 mg PO DAILY [facility] [place] Last Admin: 07/13/25 08:18 Dose: 50 mg Tamsulosin HCl (Tamsulosin Hcl 0.4 Mg Capsule) 0.4 mg PO DAILY [facility] [place] Last Admin: 07/13/25 08:19 Dose: 0.4 mg Trazodone HCl (Trazodone Hcl 50 Mg Tablet) 150 mg PO BEDTIME [facility] [place] Last Admin: 07/12/25 22:24 Dose: 150 mg Triamcinolone Acetonide (Triamcinolone Acet 0.1 % Oint 15 Gm Tube) 1 appl TOPICAL BID PRN PRN Reason: Skin Irritation Allergies Allergies Allergy/AdvReac Type Severity Reaction Status Date / Time adhesive tape Allergy Intermediate itching Verified 06/19/25 16:08 and skin redness latex Allergy Intermediate skin rash Verified 06/19/25 16:08 and itching Seasonal Allergies Allergy Itching Verified 06/19/25 16:08 weed pollen Allergy stuffy nose Verified 06/19/25 16:08 DUST Allergy Unknown ITCHY/WATERY Uncoded 06/19/25 16:08 EYES surgical paper tape Allergy Unknown rash Uncoded 06/19/25 16:08 Tide Allergy Unknown rash Uncoded 06/19/25 16:08 Assessment & Plan Assessment & Plan (1) Major neurocognitive disorder due to vascular disease, with behavioral disturbance, severe: Status: Acute Code(s): F01.C18 - Vascular dementia, severe, with other behavioral disturbance (2) Developmental delay, moderate: Status: Deleted Code(s): R62.50 - Unspecified lack of expected normal physiological development in childhood Plan Ms. Ronquillo is a 69 year-old woman with hx of developmental delay, vascular dementia who was brought via EMS due to increase aggression. Medical work up mostly unremarkable, except for TSH 22, free T4 1.22. She is on levothyroxine, unclear if taking it as prescribed. This play writer spoke with pt's psychiatric provider, Tammy Randall who reports she has been adjusting dose of seroquel. She has been on carbamazepine for a long time for mood stabilization- will check level. Will add diazepam for impulsive/explosive behaviors. PLAN 1. Admit to S1, Sect 12b, 15 minutes checks 2. will switch carbamazepine to depakote- as carbamazepine may be interacting with other medications and may not be as effective managing impulsive/explosive behaviors. 3. continue for now seroquel, but may consider changing antipsychotic medication as well. 4. obtain collateral information 5. aftercare planning. 06/25 continue to present as agitated, combative. increase depakote to 500mg po BID. continue seroquel for now but may also consider switching antipsychotics as well. 06/26 continue tx. 06/27 continue current medications, will check depakote level on Monday. 06/28 added olanzapine 10mg at night- I see she has seroquel but seems like not adequate and depakote not making substantial gain as yet olanzapine can be discontinued after more stable on depakote- 06/29 CTP- 06/30 check depakote level tomorrow AM. Will decrease seroquel to 100mg po BID, continue seroquel 200mg po at noon. Increase olazapine to 10mg po BID. plan to cross taper to olanzapine. May add sertraline as antidepressant. 07/01 will increase olanzapine to 10mg po TID, will continue current decreased dose of seroquel for now. continue depakote 500mg po BID- will adjust dose as we get levels. no signs of increase ammonia. 07/02 continue tx. febrile, no SOB. seen by hospitalist. chest xr showed interstitial edema- consult to pulmonology. 07/03 started on doxycycline by pre certification specialist. refused echo but will attempt tomorrow. 07/04 continue tx. 07/08- increase valium 10mg po TID, continue olanzapine, depakote 750mg po BID. increase agitation today. 07/09 continue tx. 07/10 continue tx. 07/11 continue tx. but may need to revisit overall treatment. 07/12: Continue current regimen and plans 07/13: Continue current regimen and plans Reason for continued inpatient stay Substantial Risk for: med/psych decompensation Time Spent With Patient Time: Total time managing care of this patient today ____ minutes.
--- NOTE | 2025-07-14 10:08 | P.PNPSI_ITS ---
Subjective Subjective Date of Service: 07/14/25 Reason For Visit: Combative Behaviors Subjective Notes: Conditional Voluntary Interim History: Patient was seen and discussed in rounds today. Records and plans were reviewed. She actually is doing better today. She is calm and not as anxious. Eating and sleeping adequately. No behavioral issues. No SI. No changes were made today Review of Systems Review of Systems Yes Unobtainable due to mental status Mental Status Exam Mental Status Exam Narrative: In today's visit she is alert, pleasant and interactive within her means. Speech is soft-spoken and at times hard to follow. No signs of psychosis. No AVH. No SI. Cognitively impaired. Judgment is impaired Diagnostics Vital Signs (24Hr): BMI result Body Mass Index 27.8 Labs 06/19/25 17:56 06/25/25 10:24 Imaging Radiology Impressions: ITS Impressions Chest X-Ray 07/02/25 15:14 IMPRESSION: Concerning interstitial lung edema. Questionable airspace disease, left lower lung lobe. Electronically signed by: Srinivasan Baron MD 07/02/2025 03:30 PM EDT Medications Medications Current Medications Acetaminophen (Acetaminophen 325 Mg Tablet) 650 mg PO Q4H PRN PRN Reason: Pain Last Admin: 07/02/25 09:49 Dose: 650 mg Al Hydroxide/Mg Hydroxide (Magnesium Hydrox/Alum Hydrox 30 Ml Oral.Susp) 30 ml PO Q6H PRN PRN Reason: Heartburn/Nausea Ascorbic Acid (Ascorbic Acid 500 Mg Tablet) 500 mg PO BID [facility] Last Admin: 07/13/25 21:04 Dose: 500 mg Aspirin (Aspirin Enteric Coated 81 Mg Tablet.) 81 mg PO DAILY [facility] Last Admin: 07/13/25 08:19 Dose: 81 mg Betamethasone Dipropion Augmented (Betamethasone Dip Aug 0.05% Cr 15 Gm Tube) 1 appl TOPICAL BID PRN PRN Reason: Dry areas on hand Last Admin: 07/12/25 10:02 Dose: 1 appl Diazepam (Diazepam 5 Mg Tablet) 10 mg PO TID [facility] Last Admin: 07/13/25 21:05 Dose: 10 mg Divalproex Sodium (Divalproex Sodium 250 Mg Tablet.) 750 mg PO BID [facility] Last Admin: 07/13/25 21:05 Dose: 750 mg Docusate Sodium (Docusate Sodium 100 Mg Capsule) 100 mg PO BID [facility] Last Admin: 07/13/25 21:05 Dose: 100 mg Donepezil HCl (Donepezil Hcl 5 Mg Tablet) 5 mg PO BEDTIME [facility] Last Admin: 07/13/25 21:05 Dose: 5 mg Ferrous Sulfate (Ferrous Sulfate 324 Mg Tablet.Dr) 324 mg PO MOWEFR@0900 [facility] Last Admin: 07/11/25 08:55 Dose: 324 mg Fluticasone Propionate (Fluticasone Propionate Nasal 16 Gm [place]) 1 spray NOSTRIL-B BID PRN PRN Reason: Nasal Congestion Last Admin: 07/12/25 10:02 Dose: 1 spray Guaifenesin/Dextromethorphan (Guaifenesin Dm 100/10/5 Ml 5 Ml Syrup) 10 ml PO QID PRN PRN Reason: Cough Levothyroxine Sodium (Levothyroxine Sodium 50 Mcg Tablet) 50 mcg PO 0630 [facility] Last Admin: 07/14/25 06:21 Dose: 50 mcg Levothyroxine Sodium (Levothyroxine Sodium 200 Mcg Tablet) 200 mcg PO 0630 [facility] Last Admin: 07/14/25 06:21 Dose: 200 mcg Loratadine (Loratadine 10 Mg Tablet) 10 mg PO DAILY [facility] Last Admin: 07/13/25 08:19 Dose: 10 mg Magnesium Hydroxide (Milk Of Magnesia 30 Ml Oral.Susp) 30 ml PO DAILY PRN PRN Reason: Constipation Melatonin (Melatonin 3 Mg Tablet) 9 mg PO BEDTIME [facility] Last Admin: 07/13/25 21:05 Dose: 9 mg Memantine (Memantine Hcl 5 Mg Tablet) 5 mg PO BID [facility] Last Admin: 07/13/25 21:04 Dose: 5 mg Multivitamins/Vitamin C (Multivitamin Tablet) 1 tab PO DAILY [facility] Last Admin: 07/13/25 08:19 Dose: 1 tab Pt Own (Vibegron [ Gemtesa] 75 Mg Tablet) 75 mg PO DAILY [facility] Last Admin: 07/13/25 08:18 Dose: 75 mg Nystatin (Nystatin Powder 15 Gm Bottle) 1 appl TOPICAL BID PRN; Protocol PRN Reason: Rash Olanzapine (Olanzapine Odt 10 Mg Tab.Rapdis) 10 mg TRANSLINGU Q6H PRN PRN Reason: agitation Last Admin: 07/12/25 15:00 Dose: 10 mg Olanzapine (Olanzapine 10 Mg Tablet) 10 mg PO TID [facility] Last Admin: 07/13/25 21:04 Dose: 10 mg Quetiapine Fumarate (Quetiapine Fumarate 100 Mg Tablet) 100 mg PO BID [facility] Last Admin: 07/13/25 21:04 Dose: 100 mg Senna (Sennosides 8.6 Mg Tablet) 8.6 mg PO Q48H [facility] Last Admin: 07/13/25 08:19 Dose: 8.6 mg Sertraline HCl (Sertraline Hcl 50 Mg Tablet) 50 mg PO DAILY [facility] Last Admin: 07/13/25 08:18 Dose: 50 mg Tamsulosin HCl (Tamsulosin Hcl 0.4 Mg Capsule) 0.4 mg PO DAILY [facility] Last Admin: 07/13/25 08:19 Dose: 0.4 mg Trazodone HCl (Trazodone Hcl 50 Mg Tablet) 150 mg PO BEDTIME [facility] Last Admin: 07/13/25 21:04 Dose: 150 mg Triamcinolone Acetonide (Triamcinolone Acet 0.1 % Oint 15 Gm Tube) 1 appl TOPICAL BID PRN PRN Reason: Skin Irritation Allergies Allergies Allergy/AdvReac Type Severity Reaction Status Date / Time adhesive tape Allergy Intermediate itching Verified 06/19/25 16:08 and skin redness latex Allergy Intermediate skin rash Verified 06/19/25 16:08 and itching Seasonal Allergies Allergy Itching Verified 06/19/25 16:08 weed pollen Allergy stuffy nose Verified 06/19/25 16:08 DUST Allergy Unknown ITCHY/WATERY Uncoded 06/19/25 16:08 EYES surgical paper tape Allergy Unknown rash Uncoded 06/19/25 16:08 Tide Allergy Unknown rash Uncoded 06/19/25 16:08 Assessment & Plan Assessment & Plan (1) Major neurocognitive disorder due to vascular disease, with behavioral disturbance, severe: Status: Acute Code(s): F01.C18 - Vascular dementia, severe, with other behavioral disturbance (2) Developmental delay, moderate: Status: Deleted Code(s): R62.50 - Unspecified lack of expected normal physiological development in childhood Plan Ms. Ronquillo is a 69 year-old woman with hx of developmental delay, vascular dementia who was brought via EMS due to increase aggression. Medical work up mostly unremarkable, except for TSH 22, free T4 1.22. She is on levothyroxine, unclear if taking it as prescribed. This pattern chart writer spoke with pt's psychiatric provider, Tammy Randall who reports she has been adjusting dose of seroquel. She has been on carbamazepine for a long time for mood stabilization- will check level. Will add diazepam for impulsive/explosive behaviors. PLAN 1. Admit to S1, Sect 12b, 15 minutes checks 2. will switch carbamazepine to depakote- as carbamazepine may be interacting with other medications and may not be as effective managing impulsive/explosive behaviors. 3. continue for now seroquel, but may consider changing antipsychotic medication as well. 4. obtain collateral information 5. aftercare planning. 06/25 continue to present as agitated, combative. increase depakote to 500mg po BID. continue seroquel for now but may also consider switching antipsychotics as well. 06/26 continue tx. 06/27 continue current medications, will check depakote level on Monday. 06/28 added olanzapine 10mg at night- I see she has seroquel but seems like not adequate and depakote not making substantial gain as yet olanzapine can be discontinued after more stable on depakote- 06/29 CTP- 06/30 check depakote level tomorrow AM. Will decrease seroquel to 100mg po BID, continue seroquel 200mg po at noon. Increase olazapine to 10mg po BID. plan to cross taper to olanzapine. May add sertraline as antidepressant. 07/01 will increase olanzapine to 10mg po TID, will continue current decreased dose of seroquel for now. continue depakote 500mg po BID- will adjust dose as we get levels. no signs of increase ammonia. 07/02 continue tx. febrile, no SOB. seen by hospitalist. chest xr showed interstitial edema- consult to pulmonology. 07/03 started on doxycycline by health education teacher. refused echo but will attempt tomorrow. 07/04 continue tx. 07/08- increase valium 10mg po TID, continue olanzapine, depakote 750mg po BID. increase agitation today. 07/09 continue tx. 07/10 continue tx. 07/11 continue tx. but may need to revisit overall treatment. 07/12: Continue current regimen and plans 07/13: Continue current regimen and plans 07/14: Continue current regimen and plans. Reason for continued inpatient stay Substantial Risk for: med/psych decompensation Time Spent With Patient Time: Total time managing care of this patient today ____ minutes.
[2025-07-14] MEDS: PT OWN (Vibegron [Gemtesa] 75 mg tablet) 75 EACH PO (14:01)
[2025-07-14 16:59] LABS: Glucose, Whole Blood 88 mg/dL (60-115)
--- NOTE | 2025-07-14 17:04 | PM.EVENT ---
Event Note Date of Service: 07/14/25 Event Note: RR called at 445 for patient that fell in the bathroom. She stated that she became dizzy but could not describe her symptoms. She stated that she fell on her buttocks. She Denied that she hit her head. Due to unwitnessed fall it was suggested that patient get a head CT to r/o trauma but patient refused. Patient was placed on her bed in a seated position and was conversing as per her normal. Alert Lungs with normal expansion no skin injury noted 142/66, 75 POC 88 neuro checks Q2 x3 Time Spent With Patient Time: Total time managing care of this patient today ____ minutes.
--- NOTE | 2025-07-14 17:52 | PC.NURSE ---
Was informed at 1710 she was found sitting on the floor in the BR she said she fell but didn't hit her head. She was assisted back to bed. Eamined while she screamed obsenities at everyone and putting her middle finger in your face stating F---k You.
--- NOTE | 2025-07-15 08:37 | HO.PSYCHPN ---
Subjective Subjective Date of Service: 07/15/25 Reason For Visit: Combative Behaviors Subjective Notes: Conditional Voluntary Healthcare Proxy: Yes Interim History: Pt yelling and screaming, only slept 3-4 hrs. not allowing labs and unable to tell if ammonia is high and increasing agitation. Review of Systems Review of Systems She denies any shortness of breath or chest pain, she denies any abdominal pain. Refuses to answer any other questions. Yes all other systems are reviewed and are negative, Unobtainable due to mental condition and Unobtainable due to mental status Mental Status Exam Mental Status Exam Narrative: Appearance: wearing casual clothing, fair hygiene Behavior: hostile Psychomotor: intermittent agitation. Speech: mumbles, difficult to understand at times, spontaneous TP: wanting to go home TC: wanting to go home, profanities to staff. Mood: I want to go home Affect: irritable, agitated SI: denies HI: denies VH/AH: no signs Delusions: no overt delusions Insight/judgment: impaired x2 alert, oriented to hospital, not so much to situation Diagnostics Vital Signs (24Hr): BMI result Body Mass Index 27.8 Labs 06/19/25 17:56 06/25/25 10:24 Labs: Laboratory Results - last 48 hr 07/14/25 16:55 POC Glucose 88 Imaging Radiology Impressions: ITS Impressions Chest X-Ray 07/02/25 15:14 IMPRESSION: Concerning interstitial lung edema. Questionable airspace disease, left lower lung lobe. Electronically signed by: Srinivasan Baron MD 07/02/2025 03:30 PM EDT Medications Medications Current Medications Acetaminophen (Acetaminophen 325 Mg Tablet) 650 mg PO Q4H PRN PRN Reason: Pain Last Admin: 07/02/25 09:49 Dose: 650 mg Al Hydroxide/Mg Hydroxide (Magnesium Hydrox/Alum Hydrox 30 Ml Oral.Susp) 30 ml PO Q6H PRN PRN Reason: Heartburn/Nausea Ascorbic Acid (Ascorbic Acid 500 Mg Tablet) 500 mg PO BID [facility] Last Admin: 07/14/25 21:02 Dose: 500 mg Aspirin (Aspirin Enteric Coated 81 Mg Tablet.) 81 mg PO DAILY [facility] Last Admin: 07/14/25 11:53 Dose: Not Given Betamethasone Dipropion Augmented (Betamethasone Dip Aug 0.05% Cr 15 Gm Tube) 1 appl TOPICAL BID PRN PRN Reason: Dry areas on hand Last Admin: 07/12/25 10:02 Dose: 1 appl Diazepam (Diazepam 5 Mg Tablet) 10 mg PO TID [facility] Last Admin: 07/15/25 07:45 Dose: 10 mg Divalproex Sodium (Divalproex Sodium 250 Mg Tablet.) 750 mg PO BID [facility] Last Admin: 07/15/25 07:45 Dose: 750 mg Docusate Sodium (Docusate Sodium 100 Mg Capsule) 100 mg PO BID [facility] Last Admin: 07/14/25 21:02 Dose: 100 mg Donepezil HCl (Donepezil Hcl 5 Mg Tablet) 5 mg PO BEDTIME [facility] Last Admin: 07/14/25 21:01 Dose: 5 mg Ferrous Sulfate (Ferrous Sulfate 324 Mg Tablet.) 324 mg PO MOWEFR@0900 [facility] Last Admin: 07/14/25 11:54 Dose: Not Given Fluticasone Propionate (Fluticasone Propionate Nasal 16 Gm [place]) 1 spray NOSTRIL-B BID PRN PRN Reason: Nasal Congestion Last Admin: 07/12/25 10:02 Dose: 1 spray Guaifenesin/Dextromethorphan (Guaifenesin Dm 100/10/5 Ml 5 Ml Syrup) 10 ml PO QID PRN PRN Reason: Cough Levothyroxine Sodium (Levothyroxine Sodium 50 Mcg Tablet) 50 mcg PO 0630 [facility] Last Admin: 07/15/25 05:57 Dose: 50 mcg Levothyroxine Sodium (Levothyroxine Sodium 200 Mcg Tablet) 200 mcg PO 0630 [facility] Last Admin: 07/15/25 05:57 Dose: 200 mcg Loratadine (Loratadine 10 Mg Tablet) 10 mg PO DAILY [facility] Last Admin: 07/14/25 11:54 Dose: Not Given Magnesium Hydroxide (Milk Of Magnesia 30 Ml Oral.Susp) 30 ml PO DAILY PRN PRN Reason: Constipation Melatonin (Melatonin 3 Mg Tablet) 9 mg PO BEDTIME [facility] Last Admin: 07/14/25 21:02 Dose: 9 mg Memantine (Memantine Hcl 5 Mg Tablet) 5 mg PO BID [facility] Last Admin: 07/14/25 21:02 Dose: 5 mg Multivitamins/Vitamin C (Multivitamin Tablet) 1 tab PO DAILY [facility] Last Admin: 07/14/25 11:55 Dose: Not Given Pt Own (Vibegron [ Gemtesa] 75 Mg Tablet) 75 mg PO DAILY [facility] Last Admin: 07/14/25 14:01 Dose: 75 mg Nystatin (Nystatin Powder 15 Gm Bottle) 1 appl TOPICAL BID PRN; Protocol PRN Reason: Rash Olanzapine (Olanzapine Odt 10 Mg Tab.Rapdis) 10 mg TRANSLINGU Q6H PRN PRN Reason: agitation Last Admin: 07/12/25 15:00 Dose: 10 mg Olanzapine (Olanzapine 10 Mg Tablet) 10 mg PO TID [facility] Last Admin: 07/15/25 07:47 Dose: 10 mg Quetiapine Fumarate (Quetiapine Fumarate 100 Mg Tablet) 100 mg PO BID [facility] Last Admin: 07/15/25 07:46 Dose: 100 mg Senna (Sennosides 8.6 Mg Tablet) 8.6 mg PO Q48H [facility] Last Admin: 07/13/25 08:19 Dose: 8.6 mg Sertraline HCl (Sertraline Hcl 50 Mg Tablet) 50 mg PO DAILY [facility] Last Admin: 07/14/25 14:03 Dose: 50 mg Tamsulosin HCl (Tamsulosin Hcl 0.4 Mg Capsule) 0.4 mg PO DAILY [facility] Last Admin: 07/14/25 14:01 Dose: 0.4 mg Trazodone HCl (Trazodone Hcl 50 Mg Tablet) 150 mg PO BEDTIME [facility] Last Admin: 07/14/25 21:01 Dose: 150 mg Triamcinolone Acetonide (Triamcinolone Acet 0.1 % Oint 15 Gm Tube) 1 appl TOPICAL BID PRN PRN Reason: Skin Irritation Allergies Allergies Allergy/AdvReac Type Severity Reaction Status Date / Time adhesive tape Allergy Intermediate itching Verified 06/19/25 16:08 and skin redness latex Allergy Intermediate skin rash Verified 06/19/25 16:08 and itching Seasonal Allergies Allergy Itching Verified 06/19/25 16:08 weed pollen Allergy stuffy nose Verified 06/19/25 16:08 DUST Allergy Unknown ITCHY/WATERY Uncoded 06/19/25 16:08 EYES surgical paper tape Allergy Unknown rash Uncoded 06/19/25 16:08 Tide Allergy Unknown rash Uncoded 06/19/25 16:08 Assessment & Plan Assessment & Plan (1) Major neurocognitive disorder due to vascular disease, with behavioral disturbance, severe: Status: Acute Code(s): F01.C18 - Vascular dementia, severe, with other behavioral disturbance (2) Developmental delay, moderate: Status: Deleted Code(s): R62.50 - Unspecified lack of expected normal physiological development in childhood Plan Ms. Ronquillo is a 69 year-old woman with hx of developmental delay, vascular dementia who was brought via EMS due to increase aggression. Medical work up mostly unremarkable, except for TSH 22, free T4 1.22. She is on levothyroxine, unclear if taking it as prescribed. This marketing copywriter spoke with pt's psychiatric provider, Tammy Randall who reports she has been adjusting dose of seroquel. She has been on carbamazepine for a long time for mood stabilization- will check level. Will add diazepam for impulsive/explosive behaviors. PLAN 1. Admit to S1, Sect 12b, 15 minutes checks 2. will switch carbamazepine to depakote- as carbamazepine may be interacting with other medications and may not be as effective managing impulsive/explosive behaviors. 3. continue for now seroquel, but may consider changing antipsychotic medication as well. 4. obtain collateral information 5. aftercare planning. 06/25 continue to present as agitated, combative. increase depakote to 500mg po BID. continue seroquel for now but may also consider switching antipsychotics as well. 06/26 continue tx. 06/27 continue current medications, will check depakote level on Monday. 06/28 added olanzapine 10mg at night- I see she has seroquel but seems like not adequate and depakote not making substantial gain as yet olanzapine can be discontinued after more stable on depakote- 06/29 CTP- 06/30 check depakote level tomorrow AM. Will decrease seroquel to 100mg po BID, continue seroquel 200mg po at noon. Increase olazapine to 10mg po BID. plan to cross taper to olanzapine. May add sertraline as antidepressant. 07/01 will increase olanzapine to 10mg po TID, will continue current decreased dose of seroquel for now. continue depakote 500mg po BID- will adjust dose as we get levels. no signs of increase ammonia. 07/02 continue tx. febrile, no SOB. seen by hospitalist. chest xr showed interstitial edema- consult to pulmonology. 07/03 started on doxycycline by manager club. refused echo but will attempt tomorrow. 07/04 continue tx. 07/08- increase valium 10mg po TID, continue olanzapine, depakote 750mg po BID. increase agitation today. 07/09 continue tx. 07/10 continue tx. 07/11 continue tx. but may need to revisit overall treatment. 07/12: Continue current regimen and plans 07/13: Continue current regimen and plans 07/14: Continue current regimen and plans. 07/15 increasingly more agitated, sleep reversal which may be concerning for increase ammonia combine with increase agitation. will decrease depakote, add lactulose, since can't check ammonia she refuses and very agitated. not responding to medications. Reason for continued inpatient stay Substantial Risk for: inability to function Time Spent With Patient Time: Total time managing care of this patient today ____ minutes.
[2025-07-15] MEDS: diazePAM 10 MG/2 ML CARTRIDGE 5 MG IM (09:23)
--- NOTE | 2025-07-15 11:16 | MHC.EVENTN ---
At 9:23 was given IM medication due to her hitting staff with her hands and her walker. She received IM Thorazine and Valium with very little relief. Call placed to her HCP but no answer and no voice mail.
--- NOTE | 2025-07-15 11:27 | HO.PSYEVENT ---
Documented by User: Izabella Presley NP 07/15/25 11:28 Event Note Date of Service: 07/15/25 Psych Restraint Event Note: Pt increasingly more agitated, spitting at staff, swinging. Not able to be redirected. Needed chemical restraint and physical hold. No physical injuries. No respiratory distress. Time Spent With Patient Time: Total time managing care of this patient today ____ minutes. Documented by User: Gilbert Simpson MD 07/15/25 23:09 Event Note Date of Service: 07/15/25
[2025-07-15] MEDS: Aspirin Enteric Coated 81 MG TABLET.DR PO (11:51)
[2025-07-15] MEDS: PT OWN (Vibegron [Gemtesa] 75 mg tablet) 75 EACH PO (11:52)
[2025-07-15 20:00] VITALS: BP 109/85; PULSE 90; RESP 18; TEMP 37.1; O2SAT 95
--- NOTE | 2025-07-16 09:19 | P.PNPSI_ITS ---
Subjective Subjective Date of Service: 07/16/25 Reason For Visit: Combative Behaviors Subjective Notes: Conditional Voluntary Mental Status Exam Mental Status Exam Narrative: Appearance: Casually dressed Behavior: Calm and cooperative throughout the interview. Eye contact is appropriate, and there are no signs of psychomotor agitation or retardation Speech: Normal volume and prosody Thought process: Logical and goal-directed Thought content: Future oriented no self-harming thoughts Mood: Euthymic Affect: Full, mood-congruent SI:denies HI:denies VH/AH:none Delusions: None Insight/judgment: Good insight and judgment Memory/cog: Alert, oriented x 4. grossly intact to conversational testing Diagnostics Vital Signs (24Hr): Vital Signs - 24 hr 07/15/25 20:00 Temperature 98.8 F Pulse Rate 90 Respiratory Rate 18 Blood Pressure 109/85 Pulse Oximetry 95 Oxygen Delivery Method Room Air BMI result Body Mass Index 27.8 Labs 06/19/25 17:56 06/25/25 10:24 Labs: Laboratory Results - last 48 hr 07/14/25 16:55 POC Glucose 88 Imaging Radiology Impressions: ITS Impressions Chest X-Ray 07/02/25 15:14 IMPRESSION: Concerning interstitial lung edema. Questionable airspace disease, left lower lung lobe. Electronically signed by: Srinivasan Baron MD 07/02/2025 03:30 PM EDT Medications Medications Current Medications Acetaminophen (Acetaminophen 325 Mg Tablet) 650 mg PO Q4H PRN PRN Reason: Pain Last Admin: 07/02/25 09:49 Dose: 650 mg Al Hydroxide/Mg Hydroxide (Magnesium Hydrox/Alum Hydrox 30 Ml Oral.Susp) 30 ml PO Q6H PRN PRN Reason: Heartburn/Nausea Ascorbic Acid (Ascorbic Acid 500 Mg Tablet) 500 mg PO BID [facility] Last Admin: 07/15/25 20:44 Dose: 500 mg Aspirin (Aspirin Enteric Coated 81 Mg Tablet.Dr) 81 mg PO DAILY [facility] Last Admin: 07/15/25 11:51 Dose: 81 mg Betamethasone Dipropion Augmented (Betamethasone Dip Aug 0.05% Cr 15 Gm Tube) 1 appl TOPICAL BID PRN PRN Reason: Dry areas on hand Last Admin: 07/12/25 10:02 Dose: 1 appl Diazepam (Diazepam 5 Mg Tablet) 10 mg PO TID [facility] Last Admin: 07/15/25 20:44 Dose: 10 mg Divalproex Sodium (Divalproex Sodium 250 Mg Tablet.) 250 mg PO BID [facility] Last Admin: 07/15/25 20:44 Dose: 250 mg Docusate Sodium (Docusate Sodium 100 Mg Capsule) 100 mg PO BID [facility] Last Admin: 07/15/25 20:45 Dose: 100 mg Donepezil HCl (Donepezil Hcl 5 Mg Tablet) 5 mg PO BEDTIME [facility] Last Admin: 07/15/25 20:44 Dose: 5 mg Ferrous Sulfate (Ferrous Sulfate 324 Mg Tablet.) 324 mg PO MOWEFR@0900 [facility] Last Admin: 07/14/25 11:54 Dose: Not Given Fluticasone Propionate (Fluticasone Propionate Nasal 16 Gm [place]) 1 spray NOSTRIL-B BID PRN PRN Reason: Nasal Congestion Last Admin: 07/12/25 10:02 Dose: 1 spray Guaifenesin/Dextromethorphan (Guaifenesin Dm 100/10/5 Ml 5 Ml Syrup) 10 ml PO QID PRN PRN Reason: Cough Lactulose (Lactulose 20 Gm/30 Ml Solution) 20 gm PO DAILY [facility] Last Admin: 07/15/25 12:54 Dose: 20 gm Levothyroxine Sodium (Levothyroxine Sodium 50 Mcg Tablet) 50 mcg PO 0630 [facility] Last Admin: 07/16/25 06:51 Dose: 50 mcg Levothyroxine Sodium (Levothyroxine Sodium 200 Mcg Tablet) 200 mcg PO 0630 [facility] Last Admin: 07/16/25 06:51 Dose: 200 mcg Loratadine (Loratadine 10 Mg Tablet) 10 mg PO DAILY [facility] Last Admin: 07/15/25 11:57 Dose: Not Given Magnesium Hydroxide (Milk Of Magnesia 30 Ml Oral.Susp) 30 ml PO DAILY PRN PRN Reason: Constipation Melatonin (Melatonin 3 Mg Tablet) 9 mg PO BEDTIME [facility] Last Admin: 07/15/25 20:43 Dose: 9 mg Memantine (Memantine Hcl 5 Mg Tablet) 5 mg PO BID [facility] Last Admin: 07/15/25 20:44 Dose: 5 mg Multivitamins/Vitamin C (Multivitamin Tablet) 1 tab PO DAILY [facility] Last Admin: 07/15/25 11:51 Dose: 1 tab Pt Own (Vibegron [ Gemtesa] 75 Mg Tablet) 75 mg PO DAILY [facility] Last Admin: 07/15/25 11:52 Dose: 75 mg Nystatin (Nystatin Powder 15 Gm Bottle) 1 appl TOPICAL BID PRN; Protocol PRN Reason: Rash Olanzapine (Olanzapine 10 Mg Tablet) 10 mg PO TID [facility] Last Admin: 07/15/25 20:44 Dose: 10 mg Quetiapine Fumarate (Quetiapine Fumarate 100 Mg Tablet) 100 mg PO BID [facility] Last Admin: 07/15/25 20:44 Dose: 100 mg Quetiapine Fumarate (Quetiapine Fumarate 100 Mg Tablet) 100 mg PO BID PRN PRN Reason: severe agitation Last Admin: 07/15/25 18:33 Dose: 100 mg Senna (Sennosides 8.6 Mg Tablet) 8.6 mg PO Q48H [facility] Last Admin: 07/15/25 11:56 Dose: Not Given Sertraline HCl (Sertraline Hcl 50 Mg Tablet) 50 mg PO DAILY [facility] Last Admin: 07/15/25 11:56 Dose: Not Given Tamsulosin HCl (Tamsulosin Hcl 0.4 Mg Capsule) 0.4 mg PO DAILY [facility] Last Admin: 07/15/25 11:57 Dose: Not Given Trazodone HCl (Trazodone Hcl 50 Mg Tablet) 150 mg PO BEDTIME [facility] Last Admin: 07/15/25 20:43 Dose: 150 mg Triamcinolone Acetonide (Triamcinolone Acet 0.1 % Oint 15 Gm Tube) 1 appl TOPICAL BID PRN PRN Reason: Skin Irritation Allergies Allergies Allergy/AdvReac Type Severity Reaction Status Date / Time adhesive tape Allergy Intermediate itching Verified 06/19/25 16:08 and skin redness latex Allergy Intermediate skin rash Verified 06/19/25 16:08 and itching Seasonal Allergies Allergy Itching Verified 06/19/25 16:08 weed pollen Allergy stuffy nose Verified 06/19/25 16:08 DUST Allergy Unknown ITCHY/WATERY Uncoded 06/19/25 16:08 EYES surgical paper tape Allergy Unknown rash Uncoded 06/19/25 16:08 Tide Allergy Unknown rash Uncoded 06/19/25 16:08 Assessment & Plan Assessment & Plan (1) Major neurocognitive disorder due to vascular disease, with behavioral disturbance, severe: Status: Acute Code(s): F01.C18 - Vascular dementia, severe, with other behavioral disturbance (2) Developmental delay, moderate: Status: Deleted Code(s): R62.50 - Unspecified lack of expected normal physiological development in childhood Plan Ms. Ronquillo is a 69 year-old woman with hx of developmental delay, vascular dementia who was brought via EMS due to increase aggression. Medical work up mostly unremarkable, except for TSH 22, free T4 1.22. She is on levothyroxine, unclear if taking it as prescribed. This senior underwriter spoke with pt's psychiatric provider, Tammy Randall who reports she has been adjusting dose of seroquel. She has been on carbamazepine for a long time for mood stabilization- will check level. Will add diazepam for impulsive/explosive behaviors. PLAN 1. Admit to S1, Sect 12b, 15 minutes checks 2. will switch carbamazepine to depakote- as carbamazepine may be interacting with other medications and may not be as effective managing impulsive/explosive behaviors. 3. continue for now seroquel, but may consider changing antipsychotic medication as well. 4. obtain collateral information 5. aftercare planning. 06/25 continue to present as agitated, combative. increase depakote to 500mg po BID. continue seroquel for now but may also consider switching antipsychotics as well. 06/26 continue tx. 06/27 continue current medications, will check depakote level on Monday. 06/28 added olanzapine 10mg at night- I see she has seroquel but seems like not adequate and depakote not making substantial gain as yet olanzapine can be discontinued after more stable on depakote- 06/29 CTP- 06/30 check depakote level tomorrow AM. Will decrease seroquel to 100mg po BID, continue seroquel 200mg po at noon. Increase olazapine to 10mg po BID. plan to cross taper to olanzapine. May add sertraline as antidepressant. 07/01 will increase olanzapine to 10mg po TID, will continue current decreased dose of seroquel for now. continue depakote 500mg po BID- will adjust dose as we get levels. no signs of increase ammonia. 07/02 continue tx. febrile, no SOB. seen by hospitalist. chest xr showed interstitial edema- consult to pulmonology. 07/03 started on doxycycline by ethanol maintenance mechanic. refused echo but will attempt tomorrow. 07/04 continue tx. 07/08- increase valium 10mg po TID, continue olanzapine, depakote 750mg po BID. increase agitation today. 07/09 continue tx. 07/10 continue tx. 07/11 continue tx. but may need to revisit overall treatment. 07/12: Continue current regimen and plans 07/13: Continue current regimen and plans 07/14: Continue current regimen and plans. 07/15 increasingly more agitated, sleep reversal which may be concerning for increase ammonia combine with increase agitation. will decrease depakote, add lactulose, since can't check ammonia she refuses and very agitated. not responding to medications. Time Spent With Patient Time: Total time managing care of this patient today ____ minutes.
[2025-07-16 11:32] LABS: Ammonia 38 umol/L (13-55)
[2025-07-16 11:50] LABS: Alanine Aminotransferase 10 U/L (0-31); Albumin Level 2.9 g/dL (3.5-5.0); Alkaline Phosphatase 90 U/L (39-117); Anion Gap 8 (12-20); Aspartate Amino Transferase 27 U/L (5-31); Blood Urea Nitrogen 22 mg/dL (9-16); Calcium 8.6 mg/dL (8.4-10.2); Carbon Dioxide 29 mmol/L (22-29); Chloride 110 mmol/L (96-108); Creatinine Clr Calc Pharmacy 56.6; Estimated Glomerular Filt Rate > 60; Potassium 4.2 mmol/L (3.3-5.1); Sodium 143 mmol/L (135-145); Total Protein 6.0 g/dL (6.5-8.0)
[2025-07-16] MEDS: Aspirin Enteric Coated 81 MG TABLET.DR PO (11:53)
[2025-07-16] MEDS: Ferrous Sulfate 324 MG TABLET.DR PO (11:53)
[2025-07-16 12:00] LABS: Thyroid Stimulating Hormone 0.07 uIU/mL (0.32-4.0)
[2025-07-16] MEDS: PT OWN (Vibegron [Gemtesa] 75 mg tablet) 75 EACH PO (12:08)
--- NOTE | 2025-07-16 17:32 | HO.PSYCHPN ---
Subjective Subjective Date of Service: 07/16/25 Reason For Visit: Combative Behaviors Healthcare Proxy: No Guardianship: No Interim History: Medical record and nursing notes reviewed; case discussed during rounds with team/nursing staff, and met with patient for supportive therapy/psychoeducation, as well as medication management. Meet with patient in her room after lunch. Engaged with eye closed. Denies pain, depression or anxiety. Denies hallucinations. Patient is sedated and mostly sleeping this morning. Slept for 4 hours last night but was back to bed after 5 AM. Patient had lab drawn this morning but refuse to give urine sample to rule out any UTI as per nursing staff, patient got worse the past week, been refused labs, was agitated, abusive, and aggressive yesterday. Got PRN meds with mild to moderate effects. Patient is up, took AM meds late, ate 100% for lunch and back to bed again. Not swearing and yelling loudly compared to yesterday. Zyprexa, Valium, and Seroquel scheduled held in the AM and at 1500 d/t sedation. In better behavior control. Medication Compliance: Yes (Refused some of morning meds yesterday. Some of AM meds was held ) Side effects from medications: Yes (sedation ) Attending Groups: No Review of Systems Medical Review of Systems: unchanged Review of Systems Review of Systems She denies any shortness of breath or chest pain, she denies any abdominal pain. Refuses to answer any other questions. Yes all other systems are reviewed and are negative, Unobtainable due to mental condition and Unobtainable due to mental status Mental Status Exam Mental Status Exam Narrative: Appearance: wearing casual clothing, fair hygiene Behavior: calmer Psychomotor: irritable edge Speech: not swearing, less loud, spontaneous TP: disorganized TC: less profanities to staff. Mood: good Affect: irritable edge SI: denies HI: denies VH/AH: no signs Delusions: no overt delusions Insight/judgment: impaired x2 alert, oriented to hospital, not so much to situation Diagnostics Vital Signs (24Hr): Vital Signs - 24 hr 07/15/25 20:00 Temperature 98.8 F Pulse Rate 90 Respiratory Rate 18 Blood Pressure 109/85 Pulse Oximetry 95 Oxygen Delivery Method Room Air BMI result Body Mass Index 27.8 Labs 06/19/25 17:56 07/16/25 11:17 Labs: Laboratory Results - last 48 hr 07/16/25 11:17 Sodium 143 Potassium 4.2 Chloride 110 H Carbon Dioxide 29 Anion Gap 8 L BUN 22 H Creatinine 0.84 Estim Creat Clear Calc 56.6 Estimated GFR > 60 Fasting Glucose 91 Calcium 8.6 Total Bilirubin 0.2 AST 27 ALT 10 Alkaline Phosphatase 90 Ammonia 38 Total Protein 6.0 L Albumin 2.9 L TSH 0.07 L Valproic Acid 41.5 L Imaging Radiology Impressions: ITS Impressions Chest X-Ray 07/02/25 15:14 IMPRESSION: Concerning interstitial lung edema. Questionable airspace disease, left lower lung lobe. Electronically signed by: Srinivasan Baron MD 07/02/2025 03:30 PM EDT RP Medications Medications Current Medications Acetaminophen (Acetaminophen 325 Mg Tablet) 650 mg PO Q4H PRN PRN Reason: Pain Last Admin: 07/02/25 09:49 Dose: 650 mg Al Hydroxide/Mg Hydroxide (Magnesium Hydrox/Alum Hydrox 30 Ml Oral.Susp) 30 ml PO Q6H PRN PRN Reason: Heartburn/Nausea Ascorbic Acid (Ascorbic Acid 500 Mg Tablet) 500 mg PO BID [facility] Last Admin: 07/16/25 11:55 Dose: 500 mg Aspirin (Aspirin Enteric Coated 81 Mg Tablet.) 81 mg PO DAILY [facility] Last Admin: 07/16/25 11:53 Dose: 81 mg Betamethasone Dipropion Augmented (Betamethasone Dip Aug 0.05% Cr 15 Gm Tube) 1 appl TOPICAL BID PRN PRN Reason: Dry areas on hand Last Admin: 07/12/25 10:02 Dose: 1 appl Diazepam (Diazepam 5 Mg Tablet) 10 mg PO TID [facility] Last Admin: 07/16/25 16:37 Dose: Not Given Divalproex Sodium (Divalproex Sodium 250 Mg Tablet.) 250 mg PO BID [facility] Last Admin: 07/16/25 11:54 Dose: 250 mg Docusate Sodium (Docusate Sodium 100 Mg Capsule) 100 mg PO BID [facility] Last Admin: 07/16/25 11:55 Dose: 100 mg Donepezil HCl (Donepezil Hcl 5 Mg Tablet) 5 mg PO BEDTIME [facility] Last Admin: 07/15/25 20:44 Dose: 5 mg Ferrous Sulfate (Ferrous Sulfate 324 Mg Tablet.) 324 mg PO MOWEFR@0900 [facility] Last Admin: 07/16/25 11:53 Dose: 324 mg Fluticasone Propionate (Fluticasone Propionate Nasal 16 Gm [place]) 1 spray NOSTRIL-B BID PRN PRN Reason: Nasal Congestion Last Admin: 07/12/25 10:02 Dose: 1 spray Guaifenesin/Dextromethorphan (Guaifenesin Dm 100/10/5 Ml 5 Ml Syrup) 10 ml PO QID PRN PRN Reason: Cough Lactulose (Lactulose 20 Gm/30 Ml Solution) 20 gm PO DAILY [facility] Last Admin: 07/16/25 16:37 Dose: Not Given Levothyroxine Sodium (Levothyroxine Sodium 50 Mcg Tablet) 50 mcg PO 0630 [facility] Last Admin: 07/16/25 06:51 Dose: 50 mcg Levothyroxine Sodium (Levothyroxine Sodium 200 Mcg Tablet) 200 mcg PO 0630 [facility] Last Admin: 07/16/25 06:51 Dose: 200 mcg Loratadine (Loratadine 10 Mg Tablet) 10 mg PO DAILY [facility] Last Admin: 07/16/25 11:54 Dose: 10 mg Magnesium Hydroxide (Milk Of Magnesia 30 Ml Oral.Susp) 30 ml PO DAILY PRN PRN Reason: Constipation Melatonin (Melatonin 3 Mg Tablet) 9 mg PO BEDTIME [facility] Last Admin: 07/15/25 20:43 Dose: 9 mg Memantine (Memantine Hcl 5 Mg Tablet) 5 mg PO BID [facility] Last Admin: 07/16/25 11:55 Dose: 5 mg Multivitamins/Vitamin C (Multivitamin Tablet) 1 tab PO DAILY [facility] Last Admin: 07/16/25 11:54 Dose: 1 tab Pt Own (Vibegron [ Gemtesa] 75 Mg Tablet) 75 mg PO DAILY [facility] Last Admin: 07/16/25 12:08 Dose: 75 mg Nystatin (Nystatin Powder 15 Gm Bottle) 1 appl TOPICAL BID PRN; Protocol PRN Reason: Rash Olanzapine (Olanzapine 10 Mg Tablet) 10 mg PO TID [facility] Last Admin: 07/16/25 16:37 Dose: Not Given Quetiapine Fumarate (Quetiapine Fumarate 100 Mg Tablet) 100 mg PO BID [facility] Last Admin: 07/16/25 11:55 Dose: Not Given Quetiapine Fumarate (Quetiapine Fumarate 100 Mg Tablet) 100 mg PO BID PRN PRN Reason: severe agitation Last Admin: 07/15/25 18:33 Dose: 100 mg Senna (Sennosides 8.6 Mg Tablet) 8.6 mg PO Q48H [facility] Last Admin: 07/15/25 11:56 Dose: Not Given Sertraline HCl (Sertraline Hcl 50 Mg Tablet) 50 mg PO DAILY [facility] Last Admin: 07/16/25 11:55 Dose: 50 mg Tamsulosin HCl (Tamsulosin Hcl 0.4 Mg Capsule) 0.4 mg PO DAILY [facility] Last Admin: 07/16/25 11:55 Dose: 0.4 mg Trazodone HCl (Trazodone Hcl 50 Mg Tablet) 150 mg PO BEDTIME [facility] Last Admin: 07/15/25 20:43 Dose: 150 mg Triamcinolone Acetonide (Triamcinolone Acet 0.1 % Oint 15 Gm Tube) 1 appl TOPICAL BID PRN PRN Reason: Skin Irritation Allergies Allergies Allergy/AdvReac Type Severity Reaction Status Date / Time adhesive tape Allergy Intermediate itching Verified 06/19/25 16:08 and skin redness latex Allergy Intermediate skin rash Verified 06/19/25 16:08 and itching Seasonal Allergies Allergy Itching Verified 06/19/25 16:08 weed pollen Allergy stuffy nose Verified 06/19/25 16:08 DUST Allergy Unknown ITCHY/WATERY Uncoded 06/19/25 16:08 EYES surgical paper tape Allergy Unknown rash Uncoded 06/19/25 16:08 Tide Allergy Unknown rash Uncoded 06/19/25 16:08 Assessment & Plan Assessment & Plan (1) Major neurocognitive disorder due to vascular disease, with behavioral disturbance, severe: Status: Acute Code(s): F01.C18 - Vascular dementia, severe, with other behavioral disturbance (2) Developmental delay, moderate: Status: Deleted Code(s): R62.50 - Unspecified lack of expected normal physiological development in childhood Plan Plan Ms. Ronquillo is a 69 year-old woman with hx of developmental delay, vascular dementia who was brought via EMS due to increase aggression. Medical work up mostly unremarkable, except for TSH 22, free T4 1.22. She is on levothyroxine, unclear if taking it as prescribed. This real estate underwriter spoke with pt's psychiatric provider, Tammy Randall who reports she has been adjusting dose of seroquel. She has been on carbamazepine for a long time for mood stabilization- will check level. Will add diazepam for impulsive/explosive behaviors. PLAN 1. Admit to S1, on Close observation for aggressive behaviors. 2. will switch carbamazepine to depakote- as carbamazepine may be interacting with other medications and may not be as effective managing impulsive/explosive behaviors. Depakote may activate patient and make her more aggressive. Taper down. 3. continue for now seroquel and Zyrepxa, but may consider changing antipsychotic medication as well. 4. obtain collateral information 5. aftercare planning. 07/16/25: TSH 0.07. VPA level 41.5. Total protein 6.0. Albumin 2.9. BUN 22. Ammonia level 38. 06/25 continue to present as agitated, combative. increase depakote to 500mg po BID. continue seroquel for now but may also consider switching antipsychotics as well. 06/26 continue tx. 06/27 continue current medications, will check depakote level on Monday. 06/28 added olanzapine 10mg at night- I see she has seroquel but seems like not adequate and depakote not making substantial gain as yet olanzapine can be discontinued after more stable on depakote- 06/29 CTP- 06/30 check depakote level tomorrow AM. Will decrease seroquel to 100mg po BID, continue seroquel 200mg po at noon. Increase olazapine to 10mg po BID. plan to cross taper to olanzapine. May add sertraline as antidepressant. 07/01 will increase olanzapine to 10mg po TID, will continue current decreased dose of seroquel for now. continue depakote 500mg po BID- will adjust dose as we get levels. no signs of increase ammonia. 07/02 continue tx. febrile, no SOB. seen by hospitalist. chest xr showed interstitial edema- consult to pulmonology. 07/03 started on doxycycline by engineering mathematician. refused echo but will attempt tomorrow. 07/04 continue tx. 07/08- increase valium 10mg po TID, continue olanzapine, depakote 750mg po BID. increase agitation today. 07/09 continue tx. 07/10 continue tx. 07/11 continue tx. but may need to revisit overall treatment. 07/12: Continue current regimen and plans 07/13: Continue current regimen and plans 07/14: Continue current regimen and plans. 07/15 increasingly more agitated, sleep reversal which may be concerning for increase ammonia combine with increase agitation. will decrease depakote, add lactulose, since can't check ammonia she refuses and very agitated. not responding to medications. 07/16/25: Meet with patient in her room after lunch. Engaged with eye closed. Denies pain, depression or anxiety. Denies hallucinations. Patient is sedated and mostly sleeping this morning. Slept for 4 hours last night but was back to bed after 5 AM. Patient had lab drawn this morning but refuse to give urine sample to rule out any UTI as per nursing staff, patient got worse the past week, been refused labs, was agitated, abusive, and aggressive yesterday. Got PRN meds with mild to moderate effects. Patient is up, took AM meds late, ate 100% for lunch and back to bed again. Not swearing and yelling loudly compared to yesterday. Zyprexa, Valium, and Seroquel scheduled held in the AM and at 1500 d/t sedation. In better behavior control. Hospital consult placed d/t Low TSH 0.07. Remain on Close Obs for agitation/aggressive behaviors. Patient educated on: diagnosis, medication risk/benefits and therapeutic strategies Informed Consent: further education needed Reason for continued inpatient stay Substantial Risk for: med/psych decompensation Time Spent With Patient Time: Total time managing care of this patient today ____ minutes.
[2025-07-16 19:35] LABS: Free T4 (Free Thyroxine) 1.09 ng/dL (0.71-1.85)
[2025-07-16 20:00] VITALS: BP 154/70; PULSE 77; RESP 18; TEMP 36.6; O2SAT 96
[2025-07-17 08:00] VITALS: BP 143/68; PULSE 92; RESP 18; TEMP 36.6; O2SAT 96
--- NOTE | 2025-07-17 08:15 | P.PNPSI_ITS ---
Subjective Subjective Date of Service: 07/17/25 Reason For Visit: Combative Behaviors Subjective Notes: Conditional Voluntary Interim History: Medical record and nursing notes reviewed; case discussed during rounds with team/nursing staff, and met with patient for supportive therapy/psychoeducation, as well as medication management. Patient slept for 4 hours last night. Received extra medication on overnight (zyprexa 10 and Valium 10 x1 dose), appear calm, more quiet, shower, up, and out to dining area for breakfast and lunch. Ate well at breakfast but not much for lunch. She says I want to go home and Ill try when asked if she can give urine sample. Denies pain, denies safety concerns i want to go home . Per nursing, patient had two large BM last night, some incontinence on night. Got to showered after breakfast. No foul swearing or minimal of swearing. Will discontinue Lactulose. VPA low but WNL, Ammonia WNL. Pending U/A: collecting sample. Medication Compliance: Yes Side effects from medications: No Attending Groups: No Review of Systems Acute medical concerns: No Medical Review of Systems: unchanged Review of Systems Review of Systems She denies any shortness of breath or chest pain, she denies any abdominal pain.. Yes all other systems are reviewed and are negative, Unobtainable due to mental condition and Unobtainable due to mental status Mental Status Exam Mental Status Exam Narrative: Appearance: wearing casual clothing, fair hygiene Behavior: calmer Psychomotor: irritable edge Speech: not swearing, less loud, spontaneous TP: disorganized I want to go home TC: less profanities to staff. Mood: good Affect: irritable edge SI: denies HI: denies VH/AH: no signs Delusions: no overt delusions Insight/judgment: impaired x2 alert, oriented to hospital, not so much to situation Diagnostics Vital Signs (24Hr): Vital Signs - 24 hr 07/16/25 20:00 Temperature 97.8 F Pulse Rate 77 Respiratory Rate 18 Blood Pressure 154/70 H Pulse Oximetry 96 Oxygen Delivery Method Room Air BMI result Body Mass Index 27.8 Labs 06/19/25 17:56 07/16/25 11:17 Labs: Laboratory Results - last 48 hr 07/16/25 11:17 Sodium 143 Potassium 4.2 Chloride 110 H Carbon Dioxide 29 Anion Gap 8 L BUN 22 H Creatinine 0.84 Estim Creat Clear Calc 56.6 Estimated GFR > 60 Fasting Glucose 91 Calcium 8.6 Total Bilirubin 0.2 AST 27 ALT 10 Alkaline Phosphatase 90 Ammonia 38 Total Protein 6.0 L Albumin 2.9 L TSH 0.07 L Free T4 1.09 Valproic Acid 41.5 L Imaging Radiology Impressions: ITS Impressions Chest X-Ray 07/02/25 15:14 IMPRESSION: Concerning interstitial lung edema. Questionable airspace disease, left lower lung lobe. Electronically signed by: Srinivasan Baron MD 07/02/2025 03:30 PM EDT RP Medications Medications Current Medications Acetaminophen (Acetaminophen 325 Mg Tablet) 650 mg PO Q4H PRN PRN Reason: Pain Last Admin: 07/02/25 09:49 Dose: 650 mg Al Hydroxide/Mg Hydroxide (Magnesium Hydrox/Alum Hydrox 30 Ml Oral.Susp) 30 ml PO Q6H PRN PRN Reason: Heartburn/Nausea Ascorbic Acid (Ascorbic Acid 500 Mg Tablet) 500 mg PO BID [facility] Last Admin: 07/16/25 20:43 Dose: 500 mg Aspirin (Aspirin Enteric Coated 81 Mg Tablet.) 81 mg PO DAILY [facility] Last Admin: 07/16/25 11:53 Dose: 81 mg Betamethasone Dipropion Augmented (Betamethasone Dip Aug 0.05% Cr 15 Gm Tube) 1 appl TOPICAL BID PRN PRN Reason: Dry areas on hand Last Admin: 07/12/25 10:02 Dose: 1 appl Diazepam (Diazepam 5 Mg Tablet) 10 mg PO TID [facility] Divalproex Sodium (Divalproex Sodium 250 Mg Tablet.) 250 mg PO BID [facility] Last Admin: 07/16/25 20:44 Dose: 250 mg Docusate Sodium (Docusate Sodium 100 Mg Capsule) 100 mg PO BID [facility] Last Admin: 07/16/25 20:44 Dose: 100 mg Donepezil HCl (Donepezil Hcl 5 Mg Tablet) 5 mg PO BEDTIME [facility] Last Admin: 07/16/25 20:44 Dose: 5 mg Ferrous Sulfate (Ferrous Sulfate 324 Mg Tablet.) 324 mg PO MOWEFR@0900 [facility] Last Admin: 07/16/25 11:53 Dose: 324 mg Fluticasone Propionate (Fluticasone Propionate Nasal 16 Gm [place]) 1 spray NOSTRIL-B BID PRN PRN Reason: Nasal Congestion Last Admin: 10/11/25 10:02 Dose: 1 spray Guaifenesin/Dextromethorphan (Guaifenesin Dm 100/10/5 Ml 5 Ml Syrup) 10 ml PO QID PRN PRN Reason: Cough Lactulose (Lactulose 20 Gm/30 Ml Solution) 20 gm PO DAILY [facility] Last Admin: 07/16/25 16:37 Dose: Not Given Levothyroxine Sodium (Levothyroxine Sodium 50 Mcg Tablet) 50 mcg PO 0630 [facility] Last Admin: 07/17/25 06:48 Dose: 50 mcg Levothyroxine Sodium (Levothyroxine Sodium 200 Mcg Tablet) 200 mcg PO 0630 [facility] Last Admin: 07/17/25 06:48 Dose: 200 mcg Loratadine (Loratadine 10 Mg Tablet) 10 mg PO DAILY [facility] Last Admin: 07/16/25 11:54 Dose: 10 mg Magnesium Hydroxide (Milk Of Magnesia 30 Ml Oral.Susp) 30 ml PO DAILY PRN PRN Reason: Constipation Melatonin (Melatonin 3 Mg Tablet) 9 mg PO BEDTIME [facility] Last Admin: 07/16/25 20:45 Dose: 9 mg Memantine (Memantine Hcl 5 Mg Tablet) 5 mg PO BID [facility] Last Admin: 07/16/25 20:44 Dose: 5 mg Multivitamins/Vitamin C (Multivitamin Tablet) 1 tab PO DAILY [facility] Last Admin: 07/16/25 11:54 Dose: 1 tab Pt Own (Vibegron [ Gemtesa] 75 Mg Tablet) 75 mg PO DAILY [facility] Last Admin: 07/16/25 12:08 Dose: 75 mg Nystatin (Nystatin Powder 15 Gm Bottle) 1 appl TOPICAL BID PRN; Protocol PRN Reason: Rash Olanzapine (Olanzapine 10 Mg Tablet) 10 mg PO TID [facility] Last Admin: 07/16/25 20:44 Dose: 10 mg Quetiapine Fumarate (Quetiapine Fumarate 100 Mg Tablet) 100 mg PO BID [facility] Last Admin: 07/16/25 20:44 Dose: 100 mg Quetiapine Fumarate (Quetiapine Fumarate 100 Mg Tablet) 100 mg PO BID PRN PRN Reason: severe agitation Last Admin: 07/17/25 01:51 Dose: 100 mg Senna (Sennosides 8.6 Mg Tablet) 8.6 mg PO Q48H [facility] Last Admin: 07/15/25 11:56 Dose: Not Given Sertraline HCl (Sertraline Hcl 50 Mg Tablet) 50 mg PO DAILY [facility] Last Admin: 07/16/25 11:55 Dose: 50 mg Tamsulosin HCl (Tamsulosin Hcl 0.4 Mg Capsule) 0.4 mg PO DAILY [facility] Last Admin: 07/16/25 11:55 Dose: 0.4 mg Trazodone HCl (Trazodone Hcl 50 Mg Tablet) 150 mg PO BEDTIME [facility] Last Admin: 07/16/25 20:43 Dose: 150 mg Triamcinolone Acetonide (Triamcinolone Acet 0.1 % Oint 15 Gm Tube) 1 appl TOPICAL BID PRN PRN Reason: Skin Irritation Allergies Allergies Allergy/AdvReac Type Severity Reaction Status Date / Time adhesive tape Allergy Intermediate itching Verified 06/19/25 16:08 and skin redness latex Allergy Intermediate skin rash Verified 06/19/25 16:08 and itching Seasonal Allergies Allergy Itching Verified 06/19/25 16:08 weed pollen Allergy stuffy nose Verified 06/19/25 16:08 DUST Allergy Unknown ITCHY/WATERY Uncoded 06/19/25 16:08 EYES surgical paper tape Allergy Unknown rash Uncoded 06/19/25 16:08 Tide Allergy Unknown rash Uncoded 06/19/25 16:08 Assessment & Plan Assessment & Plan (1) Major neurocognitive disorder due to vascular disease, with behavioral disturbance, severe: Status: Acute Code(s): F01.C18 - Vascular dementia, severe, with other behavioral disturbance (2) Developmental delay, moderate: Status: Deleted Code(s): R62.50 - Unspecified lack of expected normal physiological development in childhood Plan Plan Ms. Ronquillo is a 69 year-old woman with hx of developmental delay, vascular dementia who was brought via EMS due to increase aggression. Medical work up mostly unremarkable, except for TSH 22, free T4 1.22. She is on levothyroxine, unclear if taking it as prescribed. This play writer spoke with pt's psychiatric provider, Tammy Randall who reports she has been adjusting dose of seroquel. She has been on carbamazepine for a long time for mood stabilization- will check level. Will add diazepam for impulsive/explosive behaviors. PLAN 1. Admit to S1, on Close observation for aggressive behaviors. 2. will switch carbamazepine to depakote- as carbamazepine may be interacting with other medications and may not be as effective managing impulsive/explosive behaviors. Depakote may activate patient and make her more aggressive. Taper down. 3. continue for now seroquel and Zyrepxa, but may consider changing antipsychotic medication as well. 4. obtain collateral information 5. aftercare planning. 07/16/25: TSH 0.07. VPA level 41.5. Total protein 6.0. Albumin 2.9. BUN 22. Ammonia level 38. 06/25 continue to present as agitated, combative. increase depakote to 500mg po BID. continue seroquel for now but may also consider switching antipsychotics as well. 06/26 continue tx. 06/27 continue current medications, will check depakote level on Monday. 06/28 added olanzapine 10mg at night- I see she has seroquel but seems like not adequate and depakote not making substantial gain as yet olanzapine can be discontinued after more stable on depakote- 06/29 CTP- 06/30 check depakote level tomorrow AM. Will decrease seroquel to 100mg po BID, continue seroquel 200mg po at noon. Increase olazapine to 10mg po BID. plan to cross taper to olanzapine. May add sertraline as antidepressant. 07/01 will increase olanzapine to 10mg po TID, will continue current decreased dose of seroquel for now. continue depakote 500mg po BID- will adjust dose as we get levels. no signs of increase ammonia. 07/02 continue tx. febrile, no SOB. seen by hospitalist. chest xr showed interstitial edema- consult to pulmonology. 07/03 started on doxycycline by community development manager. refused echo but will attempt tomorrow. 07/04 continue tx. 07/08- increase valium 10mg po TID, continue olanzapine, depakote 750mg po BID. increase agitation today. 07/09 continue tx. 07/10 continue tx. 07/11 continue tx. but may need to revisit overall treatment. 07/12: Continue current regimen and plans 07/13: Continue current regimen and plans 07/14: Continue current regimen and plans. 07/15 increasingly more agitated, sleep reversal which may be concerning for increase ammonia combine with increase agitation. will decrease depakote, add lactulose, since can't check ammonia she refuses and very agitated. not responding to medications. 07/16/25: Meet with patient in her room after lunch. Engaged with eye closed. Denies pain, depression or anxiety. Denies hallucinations. Patient is sedated and mostly sleeping this morning. Slept for 4 hours last night but was back to bed after 5 AM. Patient had lab drawn this morning but refuse to give urine sample to rule out any UTI as per nursing staff, patient got worse the past week, been refused labs, was agitated, abusive, and aggressive yesterday. Got PRN meds with mild to moderate effects. Patient is up, took AM meds late, ate 100% for lunch and back to bed again. Not swearing and yelling loudly compared to yesterday. Zyprexa, Valium, and Seroquel scheduled held in the AM and at 1500 d/t sedation. In better behavior control. Hospital consult placed d/t Low TSH 0.07. Remain on Close Obs for agitation/aggressive behaviors. 07/17/25: Patient slept for 4 hours last night. Received extra medication on overnight (zyprexa 10 and Valium 10 x1 dose), appear calm, more quiet, shower, up, and out to dining area for breakfast and lunch. Ate well at breakfast but not much for lunch. She says I want to go home and Ill try when asked if she can give urine sample. Denies pain, denies safety concerns i want to go home . Per nursing, patient had two large BM last night, some incontinence on night. Got to showered after breakfast. No foul swearing or minimal of swearing. Will discontinue Lactulose. VPA low but WNL, Ammonia WNL. Seen by hospitalist: Levothyroxine from 225 to 200mcg d/t low TSH. Recheck in 4- 6 weeks. Pending U/A: collecting sample. Patient educated on: medication risk/benefits and therapeutic strategies Informed Consent: further education needed Reason for continued inpatient stay Substantial Risk for: med/psych decompensation Time Spent With Patient Time: Total time managing care of this patient today ____ minutes.
--- NOTE | 2025-07-17 08:21 | HO.PM.IMPN ---
Subjective Subjective Date of Service: 07/17/25 Interval History: Patient seen for follow up for hypothyroidism. Per patient's outside review of records patient's levothyroxine dose is 200 mcg daily. Since admission she has been taking 250 mcg daily. Discontinue 50 mcg dose and repeat her TSH in 4-6 weeks Review of Systems She denies any shortness of breath or chest pain. Physical Exam Exam: Exam: CONST: Alert and confused, in NAD. Well nourished HEENT: Normocephalic, atraumatic, MMM RESP: Lungs clear, RRR even and regular HEART:,RRR, S1, S2. No edema GI:Abdomen Soft NT, ND. + BS times four :Deferred SKIN: Warm dry and intact, no visible lesions or rashes NEURO:CN II-XII Intact bilaterally, moving all extremities. PSYCH: Flat affect, speaking in full sentences. Speech thick difficult to understand. Cooperative with care, not yelling out Vital Signs: Vital Signs: Last Vital Signs Temp 97.8 F 07/16/25 20:00 Pulse 77 07/16/25 20:00 Resp 18 07/16/25 20:00 BP 154/70 H 07/16/25 20:00 Pulse Ox 96 07/16/25 20:00 O2 Del Method Room Air 07/16/25 20:00 BMI result Body Mass Index 27.8 Extrem: Left upper extremity: cyanosis Objective Data Active Medications Acetaminophen (Acetaminophen 325 Mg Tablet) 650 mg PO Q4H PRN PRN Reason: Pain Last Admin: 07/02/25 09:49 Dose: 650 mg Documented By: SAGAR Al Hydroxide/Mg Hydroxide (Magnesium Hydrox/Alum Hydrox 30 Ml Oral.Susp) 30 ml PO Q6H PRN PRN Reason: Heartburn/Nausea Ascorbic Acid (Ascorbic Acid 500 Mg Tablet) 500 mg PO BID [facility] Last Admin: 07/16/25 20:43 Dose: 500 mg Documented By: PINO Aspirin (Aspirin Enteric Coated 81 Mg Tablet.) 81 mg PO DAILY [facility] Last Admin: 07/16/25 11:53 Dose: 81 mg Documented By: KYLE Betamethasone Dipropion Augmented (Betamethasone Dip Aug 0.05% Cr 15 Gm Tube) 1 appl TOPICAL BID PRN PRN Reason: Dry areas on hand Last Admin: 07/12/25 10:02 Dose: 1 appl Documented By: DALY Diazepam (Diazepam 5 Mg Tablet) 10 mg PO TID [facility] Divalproex Sodium (Divalproex Sodium 250 Mg Tablet.) 250 mg PO BID [facility] Last Admin: 07/16/25 20:44 Dose: 250 mg Documented By: PINO Docusate Sodium (Docusate Sodium 100 Mg Capsule) 100 mg PO BID [facility] Last Admin: 07/16/25 20:44 Dose: 100 mg Documented By: PINO Donepezil HCl (Donepezil Hcl 5 Mg Tablet) 5 mg PO BEDTIME [facility] Last Admin: 07/16/25 20:44 Dose: 5 mg Documented By: PINO Ferrous Sulfate (Ferrous Sulfate 324 Mg Tablet.) 324 mg PO MOWEFR@0900 [facility] Last Admin: 07/16/25 11:53 Dose: 324 mg Documented By: KYLE Fluticasone Propionate (Fluticasone Propionate Nasal 16 Gm [place]) 1 spray NOSTRIL-B BID PRN PRN Reason: Nasal Congestion Last Admin: 07/12/25 10:02 Dose: 1 spray Documented By: DALY Guaifenesin/Dextromethorphan (Guaifenesin Dm 100/10/5 Ml 5 Ml Syrup) 10 ml PO QID PRN PRN Reason: Cough Lactulose (Lactulose 20 Gm/30 Ml Solution) 20 gm PO DAILY [facility] Last Admin: 07/16/25 16:37 Dose: Not Given Documented By: KYLE Non-Admin Reason: Physician Held Med Levothyroxine Sodium (Levothyroxine Sodium 50 Mcg Tablet) 50 mcg PO 0630 [facility] Last Admin: 07/17/25 06:48 Dose: 50 mcg Documented By: PINO Levothyroxine Sodium (Levothyroxine Sodium 200 Mcg Tablet) 200 mcg PO 0630 [facility] Last Admin: 07/17/25 06:48 Dose: 200 mcg Documented By: PINO Loratadine (Loratadine 10 Mg Tablet) 10 mg PO DAILY [facility] Last Admin: 07/16/25 11:54 Dose: 10 mg Documented By: KYLE Magnesium Hydroxide (Milk Of Magnesia 30 Ml Oral.Susp) 30 ml PO DAILY PRN PRN Reason: Constipation Melatonin (Melatonin 3 Mg Tablet) 9 mg PO BEDTIME [facility] Last Admin: 07/16/25 20:45 Dose: 9 mg Documented By: PINO Memantine (Memantine Hcl 5 Mg Tablet) 5 mg PO BID [facility] Last Admin: 07/16/25 20:44 Dose: 5 mg Documented By: PINO Multivitamins/Vitamin C (Multivitamin Tablet) 1 tab PO DAILY [facility] Last Admin: 07/16/25 11:54 Dose: 1 tab Documented By: KYLE Pt Own (Vibegron [ Gemtesa] 75 Mg Tablet) 75 mg PO DAILY [facility] Last Admin: 07/16/25 12:08 Dose: 75 mg Documented By: KYLE Nystatin (Nystatin Powder 15 Gm Bottle) 1 appl TOPICAL BID PRN; Protocol PRN Reason: Rash Olanzapine (Olanzapine 10 Mg Tablet) 10 mg PO TID [facility] Last Admin: 07/16/25 20:44 Dose: 10 mg Documented By: PINO Quetiapine Fumarate (Quetiapine Fumarate 100 Mg Tablet) 100 mg PO BID [facility] Last Admin: 07/16/25 20:44 Dose: 100 mg Documented By: PINO Quetiapine Fumarate (Quetiapine Fumarate 100 Mg Tablet) 100 mg PO BID PRN PRN Reason: severe agitation Last Admin: 07/17/25 01:51 Dose: 100 mg Documented By: PINO Senna (Sennosides 8.6 Mg Tablet) 8.6 mg PO Q48H [facility] Last Admin: 07/15/25 11:56 Dose: Not Given Documented By: JAZ Non-Admin Reason: Patient Refused Sertraline HCl (Sertraline Hcl 50 Mg Tablet) 50 mg PO DAILY [facility] Last Admin: 07/16/25 11:55 Dose: 50 mg Documented By: KYLE Tamsulosin HCl (Tamsulosin Hcl 0.4 Mg Capsule) 0.4 mg PO DAILY [facility] Last Admin: 07/16/25 11:55 Dose: 0.4 mg Documented By: KYLE Trazodone HCl (Trazodone Hcl 50 Mg Tablet) 150 mg PO BEDTIME [facility] Last Admin: 07/16/25 20:43 Dose: 150 mg Documented By: PINO Triamcinolone Acetonide (Triamcinolone Acet 0.1 % Oint 15 Gm Tube) 1 appl TOPICAL BID PRN PRN Reason: Skin Irritation Labs 06/19/25 17:56 07/16/25 11:17 Labs: Laboratory Results - last 24 hr 07/16/25 11:17 Anion Gap 8 L Estim Creat Clear Calc 56.6 Estimated GFR > 60 Fasting Glucose 91 Calcium 8.6 Total Bilirubin 0.2 AST 27 ALT 10 Alkaline Phosphatase 90 Ammonia 38 Total Protein 6.0 L Albumin 2.9 L TSH 0.07 L Free T4 1.09 Valproic Acid 41.5 L Assessment and Plan (1) Post-surgical hypothyroidism: Status: Acute Plan 69-year-old female with past medical history as listed above admitted to [facility] for mood stabilization after presenting with aggressive behavior, refusal of meds. Dementia with behavioral disturbances/bipolar disorder/anxiety Treatment per psychiatric team Cardiomegaly/cough/Abnormal chest x-ray Treatment with doxycycline and Mucinex Repeat chest x-ray in 3-4 weeks. Last done 07/02/2025 Echo pending Iron deficiency anemia Continue iron 3 times weekly Hypothyroidism/Status post thyroid removal Decrease levothyroxine 200 mcg daily due to Low TSH Repeat level in 4-6 weeks Frequent UTIs/OAB Most recent UTI without evidence of infection Continue vitamin-C, Flomax, Gemtesa Recently treated for UTI 06/16- Avoid obtaining urine cultures unless patient displays symptoms specifically localize to urinary tract, evidence of infection including fever, tachycardia, symptoms of UTI. Dementia Continue Namenda and Aricept. Melatonin at bedtime Thank you for allowing me to participate in the care of this patient. Will follow as needed, please notify medical provider with any changes in condition or concerns. Quality Stroke Does the patient have a stroke diagnosis?: No VTE Prior VTE?: No VTE Risk Level:: Medical - low VTE Device Contraindication: Treatment Not Indicated VTE Drug Contraindication: Treatment Not Indicated
[2025-07-17] MEDS: PT OWN (Vibegron [Gemtesa] 75 mg tablet) 75 EACH PO (09:29)
[2025-07-17] MEDS: Aspirin Enteric Coated 81 MG TABLET.DR PO (09:30)
[2025-07-17 10:10] VITALS: BMI 28.1
[2025-07-17 19:24] VITALS: BP 118/58; PULSE 68; RESP 16; TEMP 36.7; O2SAT 95
[2025-07-18 06:10] LABS: Appearance Urine Cloudy; Glucose Urine UA Negative (Negative); PH 6.5 (5.0-9.0); Specific Gravity - Urine 1.015 (1.005-1.025); UMIC TRIGGER UACC YES
[2025-07-18 06:18] LABS: UACC Culture Trigger YES
--- NOTE | 2025-07-18 10:05 | PC.NURSE ---
Pt will receive morning medications late per provider Laurel Juarez. Per 1:1, pt did not sleep well last night. Pt has been visible in her room sleeping throughout the morning. Pt is allowed to sleep. RR 16, even, unlabored.
[2025-07-18 10:37] VITALS: BP 141/71; PULSE 70; RESP 16; TEMP 36.3; O2SAT 97
[2025-07-18] MEDS: PT OWN (Vibegron [Gemtesa] 75 mg tablet) 75 EACH PO (10:40)
[2025-07-18] MEDS: Ferrous Sulfate 324 MG TABLET.DR PO (10:43)
[2025-07-18] MEDS: Aspirin Enteric Coated 81 MG TABLET.DR PO (10:45)
--- NOTE | 2025-07-18 13:15 | P.PNPSI_ITS ---
Subjective Subjective Date of Service: 07/18/25 Reason For Visit: Combative Behaviors Subjective Notes: Conditional Voluntary Medical Problems Affecting Mental Status: No Interim History: Medical record and nursing notes reviewed; case discussed during rounds with team/nursing staff, and met with patient for supportive therapy/psychoeducation, as well as medication management. Patient slept through the night, compliant with medicationsy, but medications occasionally get held as patient was slept through the scheduled meds. Was given Seroquel p.r.n. around 05:00 this morning, therefore patient slept until almost 10 30 this morning. Ate some snacks, hang out in dining room, calm cooperative, and apologized for her behavior for yelling out loud at staff when she was in her room. \ Patient is much calmer, even though she had moment of yelling swearing at staff with foul language but seem improving in agitation. Patient expressed that she wanted to go home, and asked when she can go home. UA was negative. Medication Compliance: Intermittent Side effects from medications: No Attending Groups: No Review of Systems Acute medical concerns: No Medical Review of Systems: unchanged Review of Systems Review of Systems She denies any shortness of breath or chest pain, she denies any abdominal pain.. Yes all other systems are reviewed and are negative Mental Status Exam Mental Status Exam Narrative: Appearance: wearing casual clothing, fair hygiene Behavior: calmer but can be irritable at time, easily frustrated, apology to staff for swearing at us while was in her room. Psychomotor: irritable edge but much calmer and approachable. Speech: swearing and can be loud at times but less frequency, spontaneous TP: disorganized I want to go home TC: less profanities to staff. Mood: good Affect: irritable edge SI: denies HI: denies VH/AH: no signs Delusions: no overt delusions Insight/judgment: impaired x2 alert, oriented to hospital, not so much to situation Diagnostics Vital Signs (24Hr): Vital Signs - 24 hr 07/17/25 19:24 07/18/25 10:37 Temperature 98.1 F 97.4 F Pulse Rate 68 70 Respiratory Rate 16 16 Blood Pressure 118/58 L 141/71 H Pulse Oximetry 95 97 Oxygen Delivery Method Room Air Room Air BMI result Body Mass Index 28.1 Labs 06/19/25 17:56 07/16/25 11:17 Labs: Laboratory Results - last 48 hr 07/16/25 07/18/25 11:17 06:00 Free T4 1.09 Urine Color Yellow Urine Appearance Cloudy Urine pH 6.5 Ur Specific [place] 1.015 Urine Protein Negative Urine Glucose (UA) Negative Urine Ketones Negative Urine Blood Negative Urine Nitrite Negative Ur Leukocyte Esterase Small (1+) H Urine RBC 0-2 Urine WBC 21-50 H Ur Squamous Epith Cells 6-10 Urine Bacteria 1+ Hyaline Casts 0-2 Imaging Radiology Impressions: ITS Impressions Chest X-Ray 07/02/25 15:14 IMPRESSION: Concerning interstitial lung edema. Questionable airspace disease, left lower lung lobe. Electronically signed by: Srinivasan Baron MD 07/02/2025 03:30 PM EDT RP Medications Medications Current Medications Acetaminophen (Acetaminophen 325 Mg Tablet) 650 mg PO Q4H PRN PRN Reason: Pain Last Admin: 07/02/25 09:49 Dose: 650 mg Al Hydroxide/Mg Hydroxide (Magnesium Hydrox/Alum Hydrox 30 Ml Oral.Susp) 30 ml PO Q6H PRN PRN Reason: Heartburn/Nausea Ascorbic Acid (Ascorbic Acid 500 Mg Tablet) 500 mg PO BID [facility] Last Admin: 07/18/25 10:41 Dose: 500 mg Aspirin (Aspirin Enteric Coated 81 Mg Tablet.) 81 mg PO DAILY [facility] Last Admin: 07/18/25 10:45 Dose: 81 mg Betamethasone Dipropion Augmented (Betamethasone Dip Aug 0.05% Cr 15 Gm Tube) 1 appl TOPICAL BID PRN PRN Reason: Dry areas on hand Last Admin: 07/12/25 10:02 Dose: 1 appl Diazepam (Diazepam 5 Mg Tablet) 10 mg PO TID [facility] Last Admin: 07/18/25 10:42 Dose: 10 mg Divalproex Sodium (Divalproex Sodium 250 Mg Tablet.) 250 mg PO BID [facility] Last Admin: 07/18/25 10:43 Dose: 250 mg Docusate Sodium (Docusate Sodium 100 Mg Capsule) 100 mg PO BID [facility] Last Admin: 07/18/25 10:44 Dose: 100 mg Donepezil HCl (Donepezil Hcl 5 Mg Tablet) 5 mg PO BEDTIME [facility] Last Admin: 07/17/25 20:46 Dose: 5 mg Ferrous Sulfate (Ferrous Sulfate 324 Mg Tablet.Dr) 324 mg PO MOWEFR@0900 [facility] Last Admin: 07/18/25 10:43 Dose: 324 mg Fluticasone Propionate (Fluticasone Propionate Nasal 16 Gm [place]) 1 spray NOSTRIL-B BID PRN PRN Reason: Nasal Congestion Last Admin: 07/12/25 10:02 Dose: 1 spray Guaifenesin/Dextromethorphan (Guaifenesin Dm 100/10/5 Ml 5 Ml Syrup) 10 ml PO QID PRN PRN Reason: Cough Levothyroxine Sodium (Levothyroxine Sodium 200 Mcg Tablet) 200 mcg PO 0630 [facility] Last Admin: 07/18/25 05:45 Dose: 200 mcg Loratadine (Loratadine 10 Mg Tablet) 10 mg PO DAILY [facility] Last Admin: 07/18/25 10:41 Dose: 10 mg Magnesium Hydroxide (Milk Of Magnesia 30 Ml Oral.Susp) 30 ml PO DAILY PRN PRN Reason: Constipation Melatonin (Melatonin 3 Mg Tablet) 9 mg PO BEDTIME [facility] Last Admin: 07/17/25 20:46 Dose: 9 mg Memantine (Memantine Hcl 5 Mg Tablet) 5 mg PO BID [facility] Last Admin: 07/18/25 10:41 Dose: 5 mg Multivitamins/Vitamin C (Multivitamin Tablet) 1 tab PO DAILY [facility] Last Admin: 07/18/25 10:44 Dose: 1 tab Pt Own (Vibegron [ Gemtesa] 75 Mg Tablet) 75 mg PO DAILY [facility] Last Admin: 07/18/25 10:40 Dose: 75 mg Nystatin (Nystatin Powder 15 Gm Bottle) 1 appl TOPICAL BID PRN; Protocol PRN Reason: Rash Olanzapine (Olanzapine 10 Mg Tablet) 10 mg PO TID [facility] Last Admin: 07/18/25 10:45 Dose: 10 mg Quetiapine Fumarate (Quetiapine Fumarate 100 Mg Tablet) 100 mg PO BID [facility] Last Admin: 07/18/25 10:43 Dose: 100 mg Quetiapine Fumarate (Quetiapine Fumarate 100 Mg Tablet) 100 mg PO BID PRN PRN Reason: severe agitation Last Admin: 07/18/25 05:07 Dose: 100 mg Senna (Sennosides 8.6 Mg Tablet) 8.6 mg PO Q48H [facility] Last Admin: 07/17/25 09:30 Dose: 8.6 mg Sertraline HCl (Sertraline Hcl 50 Mg Tablet) 50 mg PO DAILY [facility] Last Admin: 07/18/25 10:41 Dose: 50 mg Tamsulosin HCl (Tamsulosin Hcl 0.4 Mg Capsule) 0.4 mg PO DAILY [facility] Last Admin: 07/18/25 10:42 Dose: 0.4 mg Trazodone HCl (Trazodone Hcl 50 Mg Tablet) 150 mg PO BEDTIME [facility] Last Admin: 07/17/25 20:47 Dose: 150 mg Triamcinolone Acetonide (Triamcinolone Acet 0.1 % Oint 15 Gm Tube) 1 appl TOPICAL BID PRN PRN Reason: Skin Irritation Allergies Allergies Allergy/AdvReac Type Severity Reaction Status Date / Time adhesive tape Allergy Intermediate itching Verified 06/19/25 16:08 and skin redness latex Allergy Intermediate skin rash Verified 06/19/25 16:08 and itching Seasonal Allergies Allergy Itching Verified 06/19/25 16:08 weed pollen Allergy stuffy nose Verified 06/19/25 16:08 DUST Allergy Unknown ITCHY/WATERY Uncoded 06/19/25 16:08 EYES surgical paper tape Allergy Unknown rash Uncoded 06/19/25 16:08 Tide Allergy Unknown rash Uncoded 06/19/25 16:08 Assessment & Plan Assessment & Plan (1) Major neurocognitive disorder due to vascular disease, with behavioral disturbance, severe: Status: Acute Code(s): F01.C18 - Vascular dementia, severe, with other behavioral disturbance (2) Developmental delay, moderate: Status: Deleted Code(s): R62.50 - Unspecified lack of expected normal physiological development in childhood Plan Plan Ms. Ronquillo is a 69 year-old woman with hx of developmental delay, vascular dementia who was brought via EMS due to increase aggression. Medical work up mostly unremarkable, except for TSH 22, free T4 1.22. She is on levothyroxine, unclear if taking it as prescribed. This newspaper writer spoke with pt's psychiatric provider, Tammy Randall who reports she has been adjusting dose of seroquel. She has been on carbamazepine for a long time for mood stabilization- will check level. Will add diazepam for impulsive/explosive behaviors. PLAN 1. Admit to S1, on Close observation for aggressive behaviors. 2. will switch carbamazepine to depakote- as carbamazepine may be interacting with other medications and may not be as effective managing impulsive/explosive behaviors. Depakote may activate patient and make her more aggressive. Taper down. 3. continue for now seroquel and Zyrepxa, but may consider changing antipsychotic medication as well. 4. obtain collateral information 5. aftercare planning. 07/16/25: TSH 0.07. VPA level 41.5. Total protein 6.0. Albumin 2.9. BUN 22. Ammonia level 38. 06/25 continue to present as agitated, combative. increase depakote to 500mg po BID. continue seroquel for now but may also consider switching antipsychotics as well. 06/26 continue tx. 06/27 continue current medications, will check depakote level on Monday. 06/28 added olanzapine 10mg at night- I see she has seroquel but seems like not adequate and depakote not making substantial gain as yet olanzapine can be discontinued after more stable on depakote- 06/29 CTP- 06/30 check depakote level tomorrow AM. Will decrease seroquel to 100mg po BID, continue seroquel 200mg po at noon. Increase olazapine to 10mg po BID. plan to cross taper to olanzapine. May add sertraline as antidepressant. 07/01 will increase olanzapine to 10mg po TID, will continue current decreased dose of seroquel for now. continue depakote 500mg po BID- will adjust dose as we get levels. no signs of increase ammonia. 07/02 continue tx. febrile, no SOB. seen by hospitalist. chest xr showed interstitial edema- consult to pulmonology. 07/03 started on doxycycline by wholesale agron[employer]ist. refused echo but will attempt tomorrow. 07/04 continue tx. 07/08- increase valium 10mg po TID, continue olanzapine, depakote 750mg po BID. increase agitation today. 07/09 continue tx. 07/10 continue tx. 07/11 continue tx. but may need to revisit overall treatment. 07/12: Continue current regimen and plans 07/13: Continue current regimen and plans 07/14: Continue current regimen and plans. 07/15 increasingly more agitated, sleep reversal which may be concerning for increase ammonia combine with increase agitation. will decrease depakote, add lactulose, since can't check ammonia she refuses and very agitated. not responding to medications. 07/16/25: Meet with patient in her room after lunch. Engaged with eye closed. Denies pain, depression or anxiety. Denies hallucinations. Patient is sedated and mostly sleeping this morning. Slept for 4 hours last night but was back to bed after 5 AM. Patient had lab drawn this morning but refuse to give urine sample to rule out any UTI as per nursing staff, patient got worse the past week, been refused labs, was agitated, abusive, and aggressive yesterday. Got PRN meds with mild to moderate effects. Patient is up, took AM meds late, ate 100% for lunch and back to bed again. Not swearing and yelling loudly compared to yesterday. Zyprexa, Valium, and Seroquel scheduled held in the AM and at 1500 d/t sedation. In better behavior control. Hospital consult placed d/t Low TSH 0.07. Remain on Close Obs for agitation/aggressive behaviors. 07/17/25: Patient slept for 4 hours last night. Received extra medication on overnight (zyprexa 10 and Valium 10 x1 dose), appear calm, more quiet, shower, up, and out to dining area for breakfast and lunch. Ate well at breakfast but not much for lunch. She says I want to go home and Ill try when asked if she can give urine sample. Denies pain, denies safety concerns i want to go home . Per nursing, patient had two large BM last night, some incontinence on night. Got to showered after breakfast. No foul swearing or minimal of swearing. Will discontinue Lactulose. VPA low but WNL, Ammonia WNL. Seen by hospitalist: Levothyroxine from 225 to 200mcg d/t low TSH. Recheck in 4- 6 weeks. Pending U/A: collecting sample. 07/18/25:Patient slept through the night, compliant with medicationsy, but medications occasionally get held as patient was slept through the scheduled meds. Was given Seroquel p.r.n. around 05:00 this morning, therefore patient slept until almost 10 30 this morning. Ate some snacks, hang out in dining room, calm cooperative, and apologized for her behavior for yelling out loud at staff when she was in her room. \ Patient is much calmer, even though she had moment of yelling swearing at staff with foul language but seem improving in agitation. Patient expressed that she wanted to go home, and asked when she can go home. UA was negative. U/A: some abnormality but no UTI- pending culture Patient educated on: medication risk/benefits and therapeutic strategies Informed Consent: further education needed Reason for continued inpatient stay Substantial Risk for: med/psych decompensation Time Spent With Patient Time: Total time managing care of this patient today ____ minutes.
--- NOTE | 2025-07-18 15:29 | PC.NURSE ---
Pt appeared slightly sedated, drooling and falling asleep while watching TV. RN escorted pt back to her room and pt became weak and required a wheelchair to make it back to her bed. Pt was safely helped in bed and has been resting comfortably. Provider consulted about administering pts 1500 medications d/t increased sedation and provider Laurel Juarez advised scheduled zyprexa and diazepam to be held. RN held 1500 medications.
[2025-07-18 20:09] VITALS: BP 102/50; PULSE 79; RESP 16; TEMP 36.7; O2SAT 95
[2025-07-19 08:00] VITALS: BP 150/73; PULSE 71; RESP 17; O2SAT 94
[2025-07-19] MEDS: Aspirin Enteric Coated 81 MG TABLET.DR PO (08:53)
[2025-07-19] MEDS: PT OWN (Vibegron [Gemtesa] 75 mg tablet) 75 EACH PO (08:53)
[2025-07-19 19:54] VITALS: BP 182/70; PULSE 83; TEMP 36
--- NOTE | 2025-07-19 20:30 | P.PNPSI_ITS ---
Subjective Subjective Date of Service: 07/19/25 Reason For Visit: Combative Behaviors Subjective Notes: Conditional Voluntary Medical Problems Affecting Mental Status: No Interim History: Medical record and nursing notes reviewed; case discussed during rounds with team/nursing staff, and met with patient for supportive therapy/psychoeducation, as well as medication management. Patient slept for 8 hours, compliant with medications. Visible and appropriate in common areas, ambulate using the walker. She is much calmer, nicer and not swearing at peers or staff. Reported that someone told her that she is living on Monday. She is aware that today is Monday I am going home on Monday . Some incontinence issues at night, but using the bathroom when she needs to during daytime. Approachable, happy affect, aware of surrounding. Continued to improve Medication Compliance: Yes Side effects from medications: No Attending Groups: Intermittent Review of Systems Acute medical concerns: No Medical Review of Systems: unchanged Review of Systems Review of Systems She denies any shortness of breath or chest pain, she denies any abdominal pain.. Yes all other systems are reviewed and are negative Mental Status Exam Mental Status Exam Narrative: Appearance: wearing casual clothing, fair hygiene Behavior: calmer, pleasant and cooperative. Psychomotor: not observed Speech: WNL baseline, spontaneous TP: organized TC: WNL Mood: good Affect: congruent SI: denies HI: denies VH/AH: no signs Delusions: no overt delusions Insight/judgment: impaired x2 alert, oriented to hospital, not so much to situation Diagnostics Vital Signs (24Hr): Vital Signs - 24 hr 07/19/25 08:00 07/19/25 19:54 Temperature 96.8 F Pulse Rate 71 83 Respiratory Rate 17 Blood Pressure 150/73 H 182/70 H Pulse Oximetry 94 Oxygen Delivery Method Room Air BMI result Body Mass Index 28.1 Labs 06/19/25 17:56 07/16/25 11:17 Labs: Laboratory Results - last 48 hr 07/18/25 06:00 Urine Color Yellow Urine Appearance Cloudy Urine pH 6.5 Ur Specific [place] 1.015 Urine Protein Negative Urine Glucose (UA) Negative Urine Ketones Negative Urine Blood Negative Urine Nitrite Negative Ur Leukocyte Esterase Small (1+) H Urine RBC 0-2 Urine WBC 21-50 H Ur Squamous Epith Cells 6-10 Urine Bacteria 1+ Hyaline Casts 0-2 Imaging Radiology Impressions: ITS Impressions Chest X-Ray 07/02/25 15:14 IMPRESSION: Concerning interstitial lung edema. Questionable airspace disease, left lower lung lobe. Electronically signed by: Srinivasan Baron MD 07/02/2025 03:30 PM EDT RP Medications Medications Current Medications Acetaminophen (Acetaminophen 325 Mg Tablet) 650 mg PO Q4H PRN PRN Reason: Pain Last Admin: 07/02/25 09:49 Dose: 650 mg Al Hydroxide/Mg Hydroxide (Magnesium Hydrox/Alum Hydrox 30 Ml Oral.Susp) 30 ml PO Q6H PRN PRN Reason: Heartburn/Nausea Ascorbic Acid (Ascorbic Acid 500 Mg Tablet) 500 mg PO BID [facility] Last Admin: 07/19/25 08:54 Dose: 500 mg Aspirin (Aspirin Enteric Coated 81 Mg Tablet.) 81 mg PO DAILY [facility] Last Admin: 07/19/25 08:53 Dose: 81 mg Betamethasone Dipropion Augmented (Betamethasone Dip Aug 0.05% Cr 15 Gm Tube) 1 appl TOPICAL BID PRN PRN Reason: Dry areas on hand Last Admin: 07/12/25 10:02 Dose: 1 appl Diazepam (Diazepam 5 Mg Tablet) 10 mg PO TID [facility] Last Admin: 07/19/25 15:08 Dose: 10 mg Divalproex Sodium (Divalproex Sodium 250 Mg Tablet.) 250 mg PO BID [facility] Last Admin: 07/19/25 08:54 Dose: 250 mg Docusate Sodium (Docusate Sodium 100 Mg Capsule) 100 mg PO BID [facility] Last Admin: 07/19/25 08:53 Dose: 100 mg Donepezil HCl (Donepezil Hcl 5 Mg Tablet) 5 mg PO BEDTIME [facility] Last Admin: 07/18/25 20:11 Dose: 5 mg Ferrous Sulfate (Ferrous Sulfate 324 Mg Tablet.) 324 mg PO MOWEFR@0900 [facility] Last Admin: 07/18/25 10:43 Dose: 324 mg Fluticasone Propionate (Fluticasone Propionate Nasal 16 Gm [place]) 1 spray NOSTRIL-B BID PRN PRN Reason: Nasal Congestion Last Admin: 07/19/25 17:33 Dose: 1 spray Guaifenesin/Dextromethorphan (Guaifenesin Dm 100/10/5 Ml 5 Ml Syrup) 10 ml PO QID PRN PRN Reason: Cough Levothyroxine Sodium (Levothyroxine Sodium 200 Mcg Tablet) 200 mcg PO 0630 [facility] Last Admin: 07/19/25 05:16 Dose: 200 mcg Loratadine (Loratadine 10 Mg Tablet) 10 mg PO DAILY [facility] Last Admin: 07/19/25 08:54 Dose: 10 mg Magnesium Hydroxide (Milk Of Magnesia 30 Ml Oral.Susp) 30 ml PO DAILY PRN PRN Reason: Constipation Melatonin (Melatonin 3 Mg Tablet) 9 mg PO BEDTIME [facility] Last Admin: 07/18/25 20:11 Dose: 9 mg Memantine (Memantine Hcl 5 Mg Tablet) 5 mg PO BID [facility] Last Admin: 07/19/25 08:54 Dose: 5 mg Multivitamins/Vitamin C (Multivitamin Tablet) 1 tab PO DAILY [facility] Last Admin: 07/19/25 08:53 Dose: 1 tab Pt Own (Vibegron [ Gemtesa] 75 Mg Tablet) 75 mg PO DAILY [facility] Last Admin: 07/19/25 08:53 Dose: 75 mg Nystatin (Nystatin Powder 15 Gm Bottle) 1 appl TOPICAL BID PRN; Protocol PRN Reason: Rash Olanzapine (Olanzapine 10 Mg Tablet) 10 mg PO TID [facility] Last Admin: 07/19/25 15:09 Dose: 10 mg Quetiapine Fumarate (Quetiapine Fumarate 100 Mg Tablet) 100 mg PO BID [facility] Last Admin: 07/19/25 08:54 Dose: 100 mg Quetiapine Fumarate (Quetiapine Fumarate 100 Mg Tablet) 100 mg PO BID PRN PRN Reason: severe agitation Last Admin: 07/19/25 03:05 Dose: 100 mg Senna (Sennosides 8.6 Mg Tablet) 8.6 mg PO Q48H [facility] Last Admin: 07/19/25 08:53 Dose: 8.6 mg Sertraline HCl (Sertraline Hcl 50 Mg Tablet) 50 mg PO DAILY [facility] Last Admin: 07/19/25 08:54 Dose: 50 mg Tamsulosin HCl (Tamsulosin Hcl 0.4 Mg Capsule) 0.4 mg PO DAILY [facility] Last Admin: 07/19/25 08:54 Dose: 0.4 mg Trazodone HCl (Trazodone Hcl 50 Mg Tablet) 150 mg PO BEDTIME [facility] Last Admin: 07/18/25 20:10 Dose: 150 mg Triamcinolone Acetonide (Triamcinolone Acet 0.1 % Oint 15 Gm Tube) 1 appl TOPICAL BID PRN PRN Reason: Skin Irritation Allergies Allergies Allergy/AdvReac Type Severity Reaction Status Date / Time adhesive tape Allergy Intermediate itching Verified 06/19/25 16:08 and skin redness latex Allergy Intermediate skin rash Verified 06/19/25 16:08 and itching Seasonal Allergies Allergy Itching Verified 06/19/25 16:08 weed pollen Allergy stuffy nose Verified 06/19/25 16:08 DUST Allergy Unknown ITCHY/WATERY Uncoded 06/19/25 16:08 EYES surgical paper tape Allergy Unknown rash Uncoded 06/19/25 16:08 Tide Allergy Unknown rash Uncoded 06/19/25 16:08 Assessment & Plan Assessment & Plan (1) Major neurocognitive disorder due to vascular disease, with behavioral disturbance, severe: Status: Acute Code(s): F01.C18 - Vascular dementia, severe, with other behavioral disturbance (2) Developmental delay, moderate: Status: Deleted Code(s): R62.50 - Unspecified lack of expected normal physiological development in childhood Plan Plan Ms. Ronquillo is a 69 year-old woman with hx of developmental delay, vascular dementia who was brought via EMS due to increase aggression. Medical work up mostly unremarkable, except for TSH 22, free T4 1.22. She is on levothyroxine, unclear if taking it as prescribed. This contract technical writer spoke with pt's psychiatric provider, Tammy Randall who reports she has been adjusting dose of seroquel. She has been on carbamazepine for a long time for mood stabilization- will check level. Will add diazepam for impulsive/explosive behaviors. PLAN 1. Admit to S1, on Close observation for aggressive behaviors. 2. will switch carbamazepine to depakote- as carbamazepine may be interacting with other medications and may not be as effective managing impulsive/explosive behaviors. Depakote may activate patient and make her more aggressive. Taper down. 3. continue for now seroquel and Zyrepxa, but may consider changing antipsychotic medication as well. 4. obtain collateral information 5. aftercare planning. 07/16/25: TSH 0.07. VPA level 41.5. Total protein 6.0. Albumin 2.9. BUN 22. Ammonia level 38. 9/24 continue to present as agitated, combative. increase depakote to 500mg po BID. continue seroquel for now but may also consider switching antipsychotics as well. 06/26 continue tx. 06/27 continue current medications, will check depakote level on Monday. 06/28 added olanzapine 10mg at night- I see she has seroquel but seems like not adequate and depakote not making substantial gain as yet olanzapine can be discontinued after more stable on depakote- 06/29 CTP- 06/30 check depakote level tomorrow AM. Will decrease seroquel to 100mg po BID, continue seroquel 200mg po at noon. Increase olazapine to 10mg po BID. plan to cross taper to olanzapine. May add sertraline as antidepressant. 07/01 will increase olanzapine to 10mg po TID, will continue current decreased dose of seroquel for now. continue depakote 500mg po BID- will adjust dose as we get levels. no signs of increase ammonia. 07/02 continue tx. febrile, no SOB. seen by hospitalist. chest xr showed interstitial edema- consult to pulmonology. 07/03 started on doxycycline by code inspector. refused echo but will attempt tomorrow. 07/04 continue tx. 07/08- increase valium 10mg po TID, continue olanzapine, depakote 750mg po BID. increase agitation today. 07/09 continue tx. 07/10 continue tx. 07/11 continue tx. but may need to revisit overall treatment. 07/12: Continue current regimen and plans 07/13: Continue current regimen and plans 07/14: Continue current regimen and plans. 07/15 increasingly more agitated, sleep reversal which may be concerning for increase ammonia combine with increase agitation. will decrease depakote, add lactulose, since can't check ammonia she refuses and very agitated. not responding to medications. 07/16/25: Meet with patient in her room after lunch. Engaged with eye closed. Denies pain, depression or anxiety. Denies hallucinations. Patient is sedated and mostly sleeping this morning. Slept for 4 hours last night but was back to bed after 5 AM. Patient had lab drawn this morning but refuse to give urine sample to rule out any UTI as per nursing staff, patient got worse the past week, been refused labs, was agitated, abusive, and aggressive yesterday. Got PRN meds with mild to moderate effects. Patient is up, took AM meds late, ate 100% for lunch and back to bed again. Not swearing and yelling loudly compared to yesterday. Zyprexa, Valium, and Seroquel scheduled held in the AM and at 1500 d/t sedation. In better behavior control. Hospital consult placed d/t Low TSH 0.07. Remain on Close Obs for agitation/aggressive behaviors. 07/17/25: Patient slept for 4 hours last night. Received extra medication on overnight (zyprexa 10 and Valium 10 x1 dose), appear calm, more quiet, shower, up, and out to dining area for breakfast and lunch. Ate well at breakfast but not much for lunch. She says I want to go home and Ill try when asked if she can give urine sample. Denies pain, denies safety concerns i want to go home . Per nursing, patient had two large BM last night, some incontinence on night. Got to showered after breakfast. No foul swearing or minimal of swearing. Will discontinue Lactulose. VPA low but WNL, Ammonia WNL. Seen by hospitalist: Levothyroxine from 225 to 200mcg d/t low TSH. Recheck in 4- 6 weeks. Pending U/A: collecting sample. 07/18/25:Patient slept through the night, compliant with medicationsy, but medications occasionally get held as patient was slept through the scheduled meds. Was given Seroquel p.r.n. around 05:00 this morning, therefore patient slept until almost 10 30 this morning. Ate some snacks, hang out in dining room, calm cooperative, and apologized for her behavior for yelling out loud at staff when she was in her room. \ Patient is much calmer, even though she had moment of yelling swearing at staff with foul language but seem improving in agitation. Patient expressed that she wanted to go home, and asked when she can go home. UA was negative. U/A: some abnormality but no UTI- pending culture 07/19/25: Patient slept for 8 hours, compliant with medications. Visible and appropriate in common areas, ambulate using the walker. She is much calmer, nicer and not swearing at peers or staff. Reported that someone told her that she is living on Monday. She is aware that today is Monday I am going home on Monday . Some incontinence issues at night, but using the bathroom when she needs to during daytime. Approachable, happy affect, aware of surrounding. Continued to improve. No UTI. Culture result WNL. Will increase Seroquel at night up to 150mg start 07/20. Patient educated on: diagnosis, medication risk/benefits and therapeutic strategies Informed Consent: understands and further education needed Reason for continued inpatient stay Substantial Risk for: med/psych decompensation Time Spent With Patient Time: Total time managing care of this patient today ____ minutes.
[2025-07-20 08:00] VITALS: BP 127/63; PULSE 78; RESP 17; TEMP 36.9; O2SAT 97
[2025-07-20] MEDS: Aspirin Enteric Coated 81 MG TABLET.DR PO (08:37)
[2025-07-20] MEDS: PT OWN (Vibegron [Gemtesa] 75 mg tablet) 75 EACH PO (08:37)
--- NOTE | 2025-07-20 14:00 | HO.PSYCHPN ---
Subjective Subjective Date of Service: 07/20/25 Reason For Visit: Combative Behaviors Subjective Notes: Conditional Voluntary Medical Problems Affecting Mental Status: No Interim History: Medical record and nursing notes reviewed; case discussed during rounds with team/nursing staff, and met with patient for supportive therapy/psychoeducation, as well as medication management. Patient slept for 7-8 hours last night, compliant with medications, remain calm, visible in common area, pleasant and cooperative upon approach. Incontinence issues with urine today, ambulate using the walker, some mild drooling observed when sitting at a table falling asleep. Denies safety concerns. Continued to improve in mood. No yelling. Decrease Valium 10 mg t.i.d. to 10 mg b.i.d. Medication Compliance: Yes Side effects from medications: Yes (mild drooling) Attending Groups: Yes Review of Systems Acute medical concerns: No Medical Review of Systems: unchanged Review of Systems Review of Systems She denies any shortness of breath or chest pain, she denies any abdominal pain.. Yes all other systems are reviewed and are negative Mental Status Exam Mental Status Exam Narrative: Appearance: wearing casual clothing, fair hygiene Behavior: calmer, pleasant and cooperative. Psychomotor: not observed Speech: WNL baseline, spontaneous TP: organized TC: WNL Mood: good Affect: congruent SI: denies HI: denies VH/AH: no signs Delusions: no overt delusions Insight/judgment: impaired x2 alert, oriented to hospital, not so much to situation Diagnostics Vital Signs (24Hr): Vital Signs - 24 hr 07/19/25 19:54 07/20/25 08:00 Temperature 96.8 F 98.4 F Pulse Rate 83 78 Respiratory Rate 17 Blood Pressure 182/70 H 127/63 Pulse Oximetry 97 Oxygen Delivery Method Room Air BMI result Body Mass Index 28.1 Labs 06/19/25 17:56 07/16/25 11:17 Imaging Radiology Impressions: ITS Impressions Chest X-Ray 07/02/25 15:14 IMPRESSION: Concerning interstitial lung edema. Questionable airspace disease, left lower lung lobe. Electronically signed by: Srinivasan Baron MD 07/02/2025 03:30 PM EDT Medications Medications Current Medications Acetaminophen (Acetaminophen 325 Mg Tablet) 650 mg PO Q4H PRN PRN Reason: Pain Last Admin: 07/20/25 02:00 Dose: 650 mg Al Hydroxide/Mg Hydroxide (Magnesium Hydrox/Alum Hydrox 30 Ml Oral.Susp) 30 ml PO Q6H PRN PRN Reason: Heartburn/Nausea Ascorbic Acid (Ascorbic Acid 500 Mg Tablet) 500 mg PO BID [facility] Last Admin: 07/20/25 08:37 Dose: 500 mg Aspirin (Aspirin Enteric Coated 81 Mg Tablet.) 81 mg PO DAILY [facility] Last Admin: 07/20/25 08:37 Dose: 81 mg Betamethasone Dipropion Augmented (Betamethasone Dip Aug 0.05% Cr 15 Gm Tube) 1 appl TOPICAL BID PRN PRN Reason: Dry areas on hand Last Admin: 07/12/25 10:02 Dose: 1 appl Diazepam (Diazepam 5 Mg Tablet) 10 mg PO TID [facility] Last Admin: 07/20/25 08:38 Dose: 10 mg Divalproex Sodium (Divalproex Sodium 250 Mg Tablet.) 250 mg PO BID [facility] Last Admin: 07/20/25 08:38 Dose: 250 mg Docusate Sodium (Docusate Sodium 100 Mg Capsule) 100 mg PO BID [facility] Last Admin: 07/20/25 08:37 Dose: 100 mg Donepezil HCl (Donepezil Hcl 5 Mg Tablet) 5 mg PO BEDTIME [facility] Last Admin: 07/19/25 20:41 Dose: 5 mg Ferrous Sulfate (Ferrous Sulfate 324 Mg Tablet.) 324 mg PO MOWEFR@0900 [facility] Last Admin: 07/18/25 10:43 Dose: 324 mg Fluticasone Propionate (Fluticasone Propionate Nasal 16 Gm [place]) 1 spray NOSTRIL-B BID PRN PRN Reason: Nasal Congestion Last Admin: 07/20/25 11:43 Dose: 1 spray Guaifenesin/Dextromethorphan (Guaifenesin Dm 100/10/5 Ml 5 Ml Syrup) 10 ml PO QID PRN PRN Reason: Cough Levothyroxine Sodium (Levothyroxine Sodium 200 Mcg Tablet) 200 mcg PO 0630 [facility] Last Admin: 07/20/25 06:33 Dose: 200 mcg Loratadine (Loratadine 10 Mg Tablet) 10 mg PO DAILY [facility] Last Admin: 07/20/25 08:37 Dose: 10 mg Magnesium Hydroxide (Milk Of Magnesia 30 Ml Oral.Susp) 30 ml PO DAILY PRN PRN Reason: Constipation Melatonin (Melatonin 3 Mg Tablet) 9 mg PO BEDTIME [facility] Last Admin: 07/19/25 20:41 Dose: 9 mg Memantine (Memantine Hcl 5 Mg Tablet) 5 mg PO BID [facility] Last Admin: 07/20/25 08:37 Dose: 5 mg Multivitamins/Vitamin C (Multivitamin Tablet) 1 tab PO DAILY [facility] Last Admin: 07/20/25 08:37 Dose: 1 tab Pt Own (Vibegron [ Gemtesa] 75 Mg Tablet) 75 mg PO DAILY [facility] Last Admin: 07/20/25 08:37 Dose: 75 mg Nystatin (Nystatin Powder 15 Gm Bottle) 1 appl TOPICAL BID PRN; Protocol PRN Reason: Rash Olanzapine (Olanzapine 10 Mg Tablet) 10 mg PO TID [facility] Last Admin: 07/20/25 08:37 Dose: 10 mg Quetiapine Fumarate (Quetiapine Fumarate 100 Mg Tablet) 100 mg PO BID [facility] Last Admin: 07/20/25 08:37 Dose: 100 mg Quetiapine Fumarate (Quetiapine Fumarate 100 Mg Tablet) 100 mg PO BID PRN PRN Reason: severe agitation Last Admin: 07/19/25 03:05 Dose: 100 mg Quetiapine Fumarate (Quetiapine Fumarate 50 Mg Tablet) 50 mg PO BEDTIME [facility] Senna (Sennosides 8.6 Mg Tablet) 8.6 mg PO Q48H [facility] Last Admin: 07/19/25 08:53 Dose: 8.6 mg Sertraline HCl (Sertraline Hcl 50 Mg Tablet) 50 mg PO DAILY [facility] Last Admin: 07/20/25 08:38 Dose: 50 mg Tamsulosin HCl (Tamsulosin Hcl 0.4 Mg Capsule) 0.4 mg PO DAILY [facility] Last Admin: 07/20/25 08:37 Dose: 0.4 mg Trazodone HCl (Trazodone Hcl 50 Mg Tablet) 150 mg PO BEDTIME [facility] Last Admin: 07/19/25 20:42 Dose: 150 mg Triamcinolone Acetonide (Triamcinolone Acet 0.1 % Oint 15 Gm Tube) 1 appl TOPICAL BID PRN PRN Reason: Skin Irritation Allergies Allergies Allergy/AdvReac Type Severity Reaction Status Date / Time adhesive tape Allergy Intermediate itching Verified 06/19/25 16:08 and skin redness latex Allergy Intermediate skin rash Verified 06/19/25 16:08 and itching Seasonal Allergies Allergy Itching Verified 06/19/25 16:08 weed pollen Allergy stuffy nose Verified 06/19/25 16:08 DUST Allergy Unknown ITCHY/WATERY Uncoded 06/19/25 16:08 EYES surgical paper tape Allergy Unknown rash Uncoded 06/19/25 16:08 Tide Allergy Unknown rash Uncoded 06/19/25 16:08 Assessment & Plan Assessment & Plan (1) Major neurocognitive disorder due to vascular disease, with behavioral disturbance, severe: Status: Acute Code(s): F01.C18 - Vascular dementia, severe, with other behavioral disturbance (2) Developmental delay, moderate: Status: Deleted Code(s): R62.50 - Unspecified lack of expected normal physiological development in childhood Plan Plan Ms. Ronquillo is a 69 year-old woman with hx of developmental delay, vascular dementia who was brought via EMS due to increase aggression. Medical work up mostly unremarkable, except for TSH 22, free T4 1.22. She is on levothyroxine, unclear if taking it as prescribed. This quality analyst/technical writer spoke with pt's psychiatric provider, Tammy Randall who reports she has been adjusting dose of seroquel. She has been on carbamazepine for a long time for mood stabilization- will check level. Will add diazepam for impulsive/explosive behaviors. PLAN 1. Admit to S1, on Close observation for aggressive behaviors. 2. will switch carbamazepine to depakote- as carbamazepine may be interacting with other medications and may not be as effective managing impulsive/explosive behaviors. Depakote may activate patient and make her more aggressive. Taper down. 3. continue for now seroquel and Zyrepxa, but may consider changing antipsychotic medication as well. 4. obtain collateral information 5. aftercare planning. 07/16/25: TSH 0.07. VPA level 41.5. Total protein 6.0. Albumin 2.9. BUN 22. Ammonia level 38. 9/ continue to present as agitated, combative. increase depakote to 500mg po BID. continue seroquel for now but may also consider switching antipsychotics as well. 06/26 continue tx. 06/27 continue current medications, will check depakote level on Monday. 06/28 added olanzapine 10mg at night- I see she has seroquel but seems like not adequate and depakote not making substantial gain as yet olanzapine can be discontinued after more stable on depakote- 06/29 CTP- 06/30 check depakote level tomorrow AM. Will decrease seroquel to 100mg po BID, continue seroquel 200mg po at noon. Increase olazapine to 10mg po BID. plan to cross taper to olanzapine. May add sertraline as antidepressant. 07/01 will increase olanzapine to 10mg po TID, will continue current decreased dose of seroquel for now. continue depakote 500mg po BID- will adjust dose as we get levels. no signs of increase ammonia. 07/02 continue tx. febrile, no SOB. seen by hospitalist. chest xr showed interstitial edema- consult to pulmonology. 07/03 started on doxycycline by senior accountant cpa. refused echo but will attempt tomorrow. 07/04 continue tx. 07/08- increase valium 10mg po TID, continue olanzapine, depakote 750mg po BID. increase agitation today. 07/09 continue tx. 07/10 continue tx. 07/11 continue tx. but may need to revisit overall treatment. 07/12: Continue current regimen and plans 07/13: Continue current regimen and plans 07/14: Continue current regimen and plans. 07/15 increasingly more agitated, sleep reversal which may be concerning for increase ammonia combine with increase agitation. will decrease depakote, add lactulose, since can't check ammonia she refuses and very agitated. not responding to medications. 07/16/25: Meet with patient in her room after lunch. Engaged with eye closed. Denies pain, depression or anxiety. Denies hallucinations. Patient is sedated and mostly sleeping this morning. Slept for 4 hours last night but was back to bed after 5 AM. Patient had lab drawn this morning but refuse to give urine sample to rule out any UTI as per nursing staff, patient got worse the past week, been refused labs, was agitated, abusive, and aggressive yesterday. Got PRN meds with mild to moderate effects. Patient is up, took AM meds late, ate 100% for lunch and back to bed again. Not swearing and yelling loudly compared to yesterday. Zyprexa, Valium, and Seroquel scheduled held in the AM and at 1500 d/t sedation. In better behavior control. Hospital consult placed d/t Low TSH 0.07. Remain on Close Obs for agitation/aggressive behaviors. 07/17/25: Patient slept for 4 hours last night. Received extra medication on overnight (zyprexa 10 and Valium 10 x1 dose), appear calm, more quiet, shower, up, and out to dining area for breakfast and lunch. Ate well at breakfast but not much for lunch. She says I want to go home and Ill try when asked if she can give urine sample. Denies pain, denies safety concerns i want to go home . Per nursing, patient had two large BM last night, some incontinence on night. Got to showered after breakfast. No foul swearing or minimal of swearing. Will discontinue Lactulose. VPA low but WNL, Ammonia WNL. Seen by hospitalist: Levothyroxine from 225 to 200mcg d/t low TSH. Recheck in 4-6 weeks. Pending U/A: collecting sample. 07/18/25:Patient slept through the night, compliant with medicationsy, but medications occasionally get held as patient was slept through the scheduled meds. Was given Seroquel p.r.n. around 05:00 this morning, therefore patient slept until almost 10 30 this morning. Ate some snacks, hang out in dining room, calm cooperative, and apologized for her behavior for yelling out loud at staff when she was in her room. \ Patient is much calmer, even though she had moment of yelling swearing at staff with foul language but seem improving in agitation. Patient expressed that she wanted to go home, and asked when she can go home. UA was negative. U/A: some abnormality but no UTI- pending culture 07/19/25: Patient slept for 8 hours, compliant with medications. Visible and appropriate in common areas, ambulate using the walker. She is much calmer, nicer and not swearing at peers or staff. Reported that someone told her that she is living on Monday. She is aware that today is Monday I am going home on Monday . Some incontinence issues at night, but using the bathroom when she needs to during daytime. Approachable, happy affect, aware of surrounding. Continued to improve. No UTI. Culture result WNL. Will increase Seroquel at night up to 150mg start 10/19. 07/20/25:Patient slept for 7-8 hours last night, compliant with medications, remain calm, visible in common area, pleasant and cooperative upon approach. Incontinence issues with urine today, ambulate using the walker, some mild drooling observed when sitting at a table falling asleep. Denies safety concerns. Continued to improve in mood. No yelling. Reduced Valium from 10mg TID down to BID Patient educated on: medication risk/benefits and therapeutic strategies Informed Consent: understands and further education needed Reason for continued inpatient stay Substantial Risk for: med/psych decompensation Time Spent With Patient Time: Total time managing care of this patient today ____ minutes.
[2025-07-20 20:32] VITALS: BP 134/60; PULSE 69; RESP 16; TEMP 36.4; O2SAT 93
[2025-07-21 08:30] VITALS: BP 144/69; PULSE 76; RESP 18; TEMP 36.6; O2SAT 97
[2025-07-21] MEDS: Aspirin Enteric Coated 81 MG TABLET.DR PO (08:32)
[2025-07-21] MEDS: Ferrous Sulfate 324 MG TABLET.DR PO (08:32)
[2025-07-21] MEDS: PT OWN (Vibegron [Gemtesa] 75 mg tablet) 75 EACH PO (08:33)
[2025-07-21 19:50] VITALS: BP 109/66; PULSE 76; RESP 16; TEMP 36.9; O2SAT 95
--- NOTE | 2025-07-21 21:32 | HO.PSYCHPN ---
Subjective Subjective Date of Service: 07/21/25 Reason For Visit: Combative Behaviors Subjective Notes: Conditional Voluntary Medical Problems Affecting Mental Status: No Interim History: Medical record and nursing notes reviewed; case discussed during rounds with team/nursing staff, and met with patient for supportive therapy/psychoeducation, as well as medication management. Patient slept well at night, good appetite, ambulating using walker. No fall. In general calm, pleasant and cooperative. Moments of irritable and frustrated easily when she her requests are not met fast/quick enough. Want to shower during lunch time and wanted to discharge today. Denies pain, able to change clothing herself. Denies SI/SIB/HI/AVH. Continue with Valium taper. Medication Compliance: Yes Side effects from medications: No Attending Groups: Intermittent Review of Systems Acute medical concerns: No Medical Review of Systems: unchanged Review of Systems Review of Systems She denies any shortness of breath or chest pain, she denies any abdominal pain.. Yes all other systems are reviewed and are negative Mental Status Exam Mental Status Exam Narrative: Appearance: wearing casual clothing, fair hygiene Behavior: calmer, pleasant and cooperative. Some mild moment of irritable. Psychomotor: not observed Speech: WNL baseline, spontaneous TP: organized TC: WNL Mood: good Affect: congruent SI: denies HI: denies VH/AH: no signs Delusions: no overt delusions Insight/judgment: impaired x2 alert, oriented to hospital, not so much to situation Diagnostics Vital Signs (24Hr): Vital Signs - 24 hr 07/21/25 08:30 07/21/25 19:50 Temperature 97.9 F 98.5 F Pulse Rate 76 76 Respiratory Rate 18 16 Blood Pressure 144/69 H 109/66 Pulse Oximetry 97 95 Oxygen Delivery Method Room Air Room Air BMI result Body Mass Index 28.1 Labs 06/19/25 17:56 07/16/25 11:17 Imaging Radiology Impressions: ITS Impressions Chest X-Ray 07/02/25 15:14 IMPRESSION: Concerning interstitial lung edema. Questionable airspace disease, left lower lung lobe. Electronically signed by: Srinivasan Baron MD 07/02/2025 03:30 PM EDT Medications Medications Current Medications Acetaminophen (Acetaminophen 325 Mg Tablet) 650 mg PO Q4H PRN PRN Reason: Pain Last Admin: 07/20/25 02:00 Dose: 650 mg Al Hydroxide/Mg Hydroxide (Magnesium Hydrox/Alum Hydrox 30 Ml Oral.Susp) 30 ml PO Q6H PRN PRN Reason: Heartburn/Nausea Ascorbic Acid (Ascorbic Acid 500 Mg Tablet) 500 mg PO BID [facility] Last Admin: 07/21/25 19:53 Dose: 500 mg Aspirin (Aspirin Enteric Coated 81 Mg Tablet.) 81 mg PO DAILY [facility] Last Admin: 07/21/25 08:32 Dose: 81 mg Betamethasone Dipropion Augmented (Betamethasone Dip Aug 0.05% Cr 15 Gm Tube) 1 appl TOPICAL BID PRN PRN Reason: Dry areas on hand Last Admin: 07/12/25 10:02 Dose: 1 appl Diazepam (Diazepam 5 Mg Tablet) 10 mg PO BID [facility] Last Admin: 07/21/25 19:52 Dose: 10 mg Divalproex Sodium (Divalproex Sodium 250 Mg Tablet.) 250 mg PO BID [facility] Last Admin: 07/21/25 19:52 Dose: 250 mg Docusate Sodium (Docusate Sodium 100 Mg Capsule) 100 mg PO BID [facility] Last Admin: 07/21/25 19:53 Dose: 100 mg Donepezil HCl (Donepezil Hcl 5 Mg Tablet) 5 mg PO BEDTIME [facility] Last Admin: 07/21/25 19:53 Dose: 5 mg Ferrous Sulfate (Ferrous Sulfate 324 Mg Tablet.) 324 mg PO MOWEFR@0900 [facility] Last Admin: 07/21/25 08:32 Dose: 324 mg Fluticasone Propionate (Fluticasone Propionate Nasal 16 Gm Romeo) 1 spray NOSTRIL-B BID PRN PRN Reason: Nasal Congestion Last Admin: 07/20/25 11:43 Dose: 1 spray Guaifenesin/Dextromethorphan (Guaifenesin Dm 100/10/5 Ml 5 Ml Syrup) 10 ml PO QID PRN PRN Reason: Cough Levothyroxine Sodium (Levothyroxine Sodium 200 Mcg Tablet) 200 mcg PO 0630 [facility] Last Admin: 07/21/25 05:05 Dose: 200 mcg Loratadine (Loratadine 10 Mg Tablet) 10 mg PO DAILY [facility] Last Admin: 07/21/25 08:32 Dose: 10 mg Magnesium Hydroxide (Milk Of Magnesia 30 Ml Oral.Susp) 30 ml PO DAILY PRN PRN Reason: Constipation Melatonin (Melatonin 3 Mg Tablet) 9 mg PO BEDTIME [facility] Last Admin: 07/21/25 19:54 Dose: 9 mg Memantine (Memantine Hcl 5 Mg Tablet) 5 mg PO BID [facility] Last Admin: 07/21/25 19:53 Dose: 5 mg Multivitamins/Vitamin C (Multivitamin Tablet) 1 tab PO DAILY [facility] Last Admin: 07/21/25 08:32 Dose: 1 tab Pt Own (Vibegron [ Gemtesa] 75 Mg Tablet) 75 mg PO DAILY [facility] Last Admin: 07/21/25 08:33 Dose: 75 mg Nystatin (Nystatin Powder 15 Gm Bottle) 1 appl TOPICAL BID PRN; Protocol PRN Reason: Rash Olanzapine (Olanzapine 10 Mg Tablet) 10 mg PO TID [facility] Last Admin: 07/21/25 19:53 Dose: 10 mg Quetiapine Fumarate (Quetiapine Fumarate 100 Mg Tablet) 100 mg PO BID [facility] Last Admin: 07/21/25 19:53 Dose: 100 mg Quetiapine Fumarate (Quetiapine Fumarate 100 Mg Tablet) 100 mg PO BID PRN PRN Reason: severe agitation Last Admin: 07/19/25 03:05 Dose: 100 mg Quetiapine Fumarate (Quetiapine Fumarate 50 Mg Tablet) 50 mg PO BEDTIME [facility] Last Admin: 07/21/25 19:54 Dose: 50 mg Senna (Sennosides 8.6 Mg Tablet) 8.6 mg PO Q48H [facility] Last Admin: 07/21/25 08:32 Dose: 8.6 mg Sertraline HCl (Sertraline Hcl 50 Mg Tablet) 50 mg PO DAILY [facility] Last Admin: 07/21/25 08:32 Dose: 50 mg Tamsulosin HCl (Tamsulosin Hcl 0.4 Mg Capsule) 0.4 mg PO DAILY [facility] Last Admin: 07/21/25 08:32 Dose: 0.4 mg Trazodone HCl (Trazodone Hcl 50 Mg Tablet) 150 mg PO BEDTIME [facility] Last Admin: 07/21/25 19:54 Dose: 150 mg Triamcinolone Acetonide (Triamcinolone Acet 0.1 % Oint 15 Gm Tube) 1 appl TOPICAL BID PRN PRN Reason: Skin Irritation Allergies Allergies Allergy/AdvReac Type Severity Reaction Status Date / Time adhesive tape Allergy Intermediate itching Verified 06/19/25 16:08 and skin redness latex Allergy Intermediate skin rash Verified 06/19/25 16:08 and itching Seasonal Allergies Allergy Itching Verified 06/19/25 16:08 weed pollen Allergy stuffy nose Verified 06/19/25 16:08 DUST Allergy Unknown ITCHY/WATERY Uncoded 06/19/25 16:08 EYES surgical paper tape Allergy Unknown rash Uncoded 06/19/25 16:08 Tide Allergy Unknown rash Uncoded 06/19/25 16:08 Assessment & Plan Assessment & Plan (1) Major neurocognitive disorder due to vascular disease, with behavioral disturbance, severe: Status: Acute Code(s): F01.C18 - Vascular dementia, severe, with other behavioral disturbance (2) Developmental delay, moderate: Status: Deleted Code(s): R62.50 - Unspecified lack of expected normal physiological development in childhood Plan Plan Ms. Ronquillo is a 69 year-old woman with hx of developmental delay, vascular dementia who was brought via EMS due to increase aggression. Medical work up mostly unremarkable, except for TSH 22, free T4 1.22. She is on levothyroxine, unclear if taking it as prescribed. This public relations writer spoke with pt's psychiatric provider, Tammy Randall who reports she has been adjusting dose of seroquel. She has been on carbamazepine for a long time for mood stabilization- will check level. Will add diazepam for impulsive/explosive behaviors. PLAN 1. Admit to S1, on Close observation for aggressive behaviors. 2. will switch carbamazepine to depakote- as carbamazepine may be interacting with other medications and may not be as effective managing impulsive/explosive behaviors. Depakote may activate patient and make her more aggressive. Taper down. 3. continue for now seroquel and Zyrepxa, but may consider changing antipsychotic medication as well. 4. obtain collateral information 5. aftercare planning. 07/16/25: TSH 0.07. VPA level 41.5. Total protein 6.0. Albumin 2.9. BUN 22. Ammonia level 38. 06/25 continue to present as agitated, combative. increase depakote to 500mg po BID. continue seroquel for now but may also consider switching antipsychotics as well. 06/26 continue tx. 06/27 continue current medications, will check depakote level on Monday. 06/28 added olanzapine 10mg at night- I see she has seroquel but seems like not adequate and depakote not making substantial gain as yet olanzapine can be discontinued after more stable on depakote- 06/29 CTP- 06/30 check depakote level tomorrow AM. Will decrease seroquel to 100mg po BID, continue seroquel 200mg po at noon. Increase olazapine to 10mg po BID. plan to cross taper to olanzapine. May add sertraline as antidepressant. 07/01 will increase olanzapine to 10mg po TID, will continue current decreased dose of seroquel for now. continue depakote 500mg po BID- will adjust dose as we get levels. no signs of increase ammonia. 07/02 continue tx. febrile, no SOB. seen by hospitalist. chest xr showed interstitial edema- consult to pulmonology. 07/03 started on doxycycline by theatrical rigger. refused echo but will attempt tomorrow. 07/04 continue tx. 07/08- increase valium 10mg po TID, continue olanzapine, depakote 750mg po BID. increase agitation today. 07/09 continue tx. 07/10 continue tx. 07/11 continue tx. but may need to revisit overall treatment. 07/12: Continue current regimen and plans 07/13: Continue current regimen and plans 07/14: Continue current regimen and plans. 07/15 increasingly more agitated, sleep reversal which may be concerning for increase ammonia combine with increase agitation. will decrease depakote, add lactulose, since can't check ammonia she refuses and very agitated. not responding to medications. 07/16/25: Meet with patient in her room after lunch. Engaged with eye closed. Denies pain, depression or anxiety. Denies hallucinations. Patient is sedated and mostly sleeping this morning. Slept for 4 hours last night but was back to bed after 5 AM. Patient had lab drawn this morning but refuse to give urine sample to rule out any UTI as per nursing staff, patient got worse the past week, been refused labs, was agitated, abusive, and aggressive yesterday. Got PRN meds with mild to moderate effects. Patient is up, took AM meds late, ate 100% for lunch and back to bed again. Not swearing and yelling loudly compared to yesterday. Zyprexa, Valium, and Seroquel scheduled held in the AM and at 1500 d/t sedation. In better behavior control. Hospital consult placed d/t Low TSH 0.07. Remain on Close Obs for agitation/aggressive behaviors. 07/17/25: Patient slept for 4 hours last night. Received extra medication on overnight (zyprexa 10 and Valium 10 x1 dose), appear calm, more quiet, shower, up, and out to dining area for breakfast and lunch. Ate well at breakfast but not much for lunch. She says I want to go home and Ill try when asked if she can give urine sample. Denies pain, denies safety concerns i want to go home . Per nursing, patient had two large BM last night, some incontinence on night. Got to showered after breakfast. No foul swearing or minimal of swearing. Will discontinue Lactulose. VPA low but WNL, Ammonia WNL. Seen by hospitalist: Levothyroxine from 225 to 200mcg d/t low TSH. Recheck in 4-6 weeks. Pending U/A: collecting sample. 07/18/25:Patient slept through the night, compliant with medicationsy, but medications occasionally get held as patient was slept through the scheduled meds. Was given Seroquel p.r.n. around 05:00 this morning, therefore patient slept until almost 10 30 this morning. Ate some snacks, hang out in dining room, calm cooperative, and apologized for her behavior for yelling out loud at staff when she was in her room. \ Patient is much calmer, even though she had moment of yelling swearing at staff with foul language but seem improving in agitation. Patient expressed that she wanted to go home, and asked when she can go home. UA was negative. U/A: some abnormality but no UTI- pending culture 07/19/25: Patient slept for 8 hours, compliant with medications. Visible and appropriate in common areas, ambulate using the walker. She is much calmer, nicer and not swearing at peers or staff. Reported that someone told her that she is living on Monday. She is aware that today is Monday I am going home on Monday . Some incontinence issues at night, but using the bathroom when she needs to during daytime. Approachable, happy affect, aware of surrounding. Continued to improve. No UTI. Culture result WNL. Will increase Seroquel at night up to 150mg start 07/20. 07/20/25:Patient slept for 7-8 hours last night, compliant with medications, remain calm, visible in common area, pleasant and cooperative upon approach. Incontinence issues with urine today, ambulate using the walker, some mild drooling observed when sitting at a table falling asleep. Denies safety concerns. Continued to improve in mood. No yelling. Reduced Valium from 10mg TID down to BID 07/21/25: Patient slept well at night, good appetite, ambulating using walker. No fall. In general calm, pleasant and cooperative. Moments of irritable and frustrated easily when she her requests are not met fast/quick enough. Want to shower during lunch time and wanted to discharge today. Denies pain, able to change clothing herself. Denies SI/SIB/HI/AVH. Continue with Valium taper. SW will contact regarding discharge plan/aftercare plan. Patient educated on: diagnosis, medication risk/benefits and therapeutic strategies Informed Consent: understands and further education needed Reason for continued inpatient stay Substantial Risk for: med/psych decompensation Time Spent With Patient Time: Total time managing care of this patient today ____ minutes.
[2025-07-22 08:00] VITALS: BP 158/77; PULSE 87; RESP 18; TEMP 36.7; O2SAT 97
[2025-07-22] MEDS: Aspirin Enteric Coated 81 MG TABLET.DR PO (08:35)
[2025-07-22] MEDS: PT OWN (Vibegron [Gemtesa] 75 mg tablet) 75 EACH PO (08:36)
--- NOTE | 2025-07-22 15:42 | HO.PSYCHPN ---
Subjective Subjective Date of Service: 07/22/25 Reason For Visit: Combative Behaviors Subjective Notes: Conditional Voluntary Medical Problems Affecting Mental Status: No Interim History: Medical record and nursing notes reviewed; case discussed during rounds with team/nursing staff, and met with patient for supportive therapy/psychoeducation, as well as medication management. Patient slept for 7 hours, good meal intake. Continued to improve in mood, quiet, calm, pleasant and cooperative. She met with her long-term staff, spent sometimes in dining room playing cards, ate lunch late. Continued to on benzo taper. Possible discharge next week. conservation worker is in contact with the long-term staff regarding discharge plan. Medication Compliance: Yes Side effects from medications: No Attending Groups: Intermittent Review of Systems Acute medical concerns: No Medical Review of Systems: unchanged Review of Systems Review of Systems She denies any shortness of breath or chest pain, she denies any abdominal pain.. Yes all other systems are reviewed and are negative Mental Status Exam Mental Status Exam Narrative: Appearance: wearing casual clothing, fair hygiene Behavior: calm, pleasant and cooperative. Psychomotor: not observed Speech: WNL baseline, spontaneous TP: organized TC: WNL Mood: good Affect: congruent SI: denies HI: denies VH/AH: no signs Delusions: no overt delusions Insight/judgment: impaired x2 but improved alert, oriented to hospital. Diagnostics Vital Signs (24Hr): Vital Signs - 24 hr 07/21/25 19:50 07/22/25 08:00 Temperature 98.5 F 98.1 F Pulse Rate 76 87 Respiratory Rate 16 18 Blood Pressure 109/66 158/77 H Pulse Oximetry 95 97 Oxygen Delivery Method Room Air Room Air BMI result Body Mass Index 28.1 Labs 06/19/25 17:56 07/16/25 11:17 Imaging Radiology Impressions: ITS Impressions Chest X-Ray 07/02/25 15:14 IMPRESSION: Concerning interstitial lung edema. Questionable airspace disease, left lower lung lobe. Electronically signed by: Srinivasan Baron MD 07/02/2025 03:30 PM EDT Medications Medications Current Medications Acetaminophen (Acetaminophen 325 Mg Tablet) 650 mg PO Q4H PRN PRN Reason: Pain Last Admin: 07/20/25 02:00 Dose: 650 mg Al Hydroxide/Mg Hydroxide (Magnesium Hydrox/Alum Hydrox 30 Ml Oral.Susp) 30 ml PO Q6H PRN PRN Reason: Heartburn/Nausea Ascorbic Acid (Ascorbic Acid 500 Mg Tablet) 500 mg PO BID [facility] Last Admin: 07/22/25 08:36 Dose: 500 mg Aspirin (Aspirin Enteric Coated 81 Mg Tablet.) 81 mg PO DAILY [facility] Last Admin: 07/22/25 08:35 Dose: 81 mg Betamethasone Dipropion Augmented (Betamethasone Dip Aug 0.05% Cr 15 Gm Tube) 1 appl TOPICAL BID PRN PRN Reason: Dry areas on hand Last Admin: 07/12/25 10:02 Dose: 1 appl Diazepam (Diazepam 5 Mg Tablet) 10 mg PO BID [facility] Last Admin: 07/22/25 08:36 Dose: 10 mg Divalproex Sodium (Divalproex Sodium 250 Mg Tablet.) 250 mg PO BID [facility] Last Admin: 07/22/25 08:35 Dose: 250 mg Docusate Sodium (Docusate Sodium 100 Mg Capsule) 100 mg PO BID [facility] Last Admin: 07/22/25 08:36 Dose: 100 mg Donepezil HCl (Donepezil Hcl 5 Mg Tablet) 5 mg PO BEDTIME [facility] Last Admin: 07/21/25 19:53 Dose: 5 mg Ferrous Sulfate (Ferrous Sulfate 324 Mg Tablet.) 324 mg PO MOWEFR@0900 [facility] Last Admin: 07/21/25 08:32 Dose: 324 mg Fluticasone Propionate (Fluticasone Propionate Nasal 16 Gm Flora) 1 spray NOSTRIL-B BID PRN PRN Reason: Nasal Congestion Last Admin: 07/20/25 11:43 Dose: 1 spray Guaifenesin/Dextromethorphan (Guaifenesin Dm 100/10/5 Ml 5 Ml Syrup) 10 ml PO QID PRN PRN Reason: Cough Levothyroxine Sodium (Levothyroxine Sodium 200 Mcg Tablet) 200 mcg PO 0630 [facility] Last Admin: 07/22/25 05:05 Dose: 200 mcg Loratadine (Loratadine 10 Mg Tablet) 10 mg PO DAILY [facility] Last Admin: 07/22/25 08:35 Dose: 10 mg Magnesium Hydroxide (Milk Of Magnesia 30 Ml Oral.Susp) 30 ml PO DAILY PRN PRN Reason: Constipation Melatonin (Melatonin 3 Mg Tablet) 9 mg PO BEDTIME [facility] Last Admin: 07/21/25 19:54 Dose: 9 mg Memantine (Memantine Hcl 5 Mg Tablet) 5 mg PO BID [facility] Last Admin: 07/22/25 08:35 Dose: 5 mg Multivitamins/Vitamin C (Multivitamin Tablet) 1 tab PO DAILY [facility] Last Admin: 07/22/25 08:35 Dose: 1 tab Pt Own (Vibegron [ Gemtesa] 75 Mg Tablet) 75 mg PO DAILY [facility] Last Admin: 07/22/25 08:36 Dose: 75 mg Nystatin (Nystatin Powder 15 Gm Bottle) 1 appl TOPICAL BID PRN; Protocol PRN Reason: Rash Olanzapine (Olanzapine 10 Mg Tablet) 10 mg PO TID [facility] Last Admin: 07/22/25 14:25 Dose: 10 mg Quetiapine Fumarate (Quetiapine Fumarate 100 Mg Tablet) 100 mg PO BID [facility] Last Admin: 07/22/25 08:35 Dose: 100 mg Quetiapine Fumarate (Quetiapine Fumarate 100 Mg Tablet) 100 mg PO BID PRN PRN Reason: severe agitation Last Admin: 07/19/25 03:05 Dose: 100 mg Quetiapine Fumarate (Quetiapine Fumarate 50 Mg Tablet) 50 mg PO BEDTIME [facility] Last Admin: 07/21/25 19:54 Dose: 50 mg Senna (Sennosides 8.6 Mg Tablet) 8.6 mg PO Q48H [facility] Last Admin: 07/21/25 08:32 Dose: 8.6 mg Sertraline HCl (Sertraline Hcl 50 Mg Tablet) 50 mg PO DAILY [facility] Last Admin: 07/22/25 08:35 Dose: 50 mg Tamsulosin HCl (Tamsulosin Hcl 0.4 Mg Capsule) 0.4 mg PO DAILY [facility] Last Admin: 07/22/25 08:35 Dose: 0.4 mg Trazodone HCl (Trazodone Hcl 50 Mg Tablet) 150 mg PO BEDTIME [facility] Last Admin: 07/21/25 19:54 Dose: 150 mg Triamcinolone Acetonide (Triamcinolone Acet 0.1 % Oint 15 Gm Tube) 1 appl TOPICAL BID PRN PRN Reason: Skin Irritation Allergies Allergies Allergy/AdvReac Type Severity Reaction Status Date / Time adhesive tape Allergy Intermediate itching Verified 06/19/25 16:08 and skin redness latex Allergy Intermediate skin rash Verified 06/19/25 16:08 and itching Seasonal Allergies Allergy Itching Verified 06/19/25 16:08 weed pollen Allergy stuffy nose Verified 06/19/25 16:08 DUST Allergy Unknown ITCHY/WATERY Uncoded 06/19/25 16:08 EYES surgical paper tape Allergy Unknown rash Uncoded 06/19/25 16:08 Tide Allergy Unknown rash Uncoded 06/19/25 16:08 Assessment & Plan Assessment & Plan (1) Major neurocognitive disorder due to vascular disease, with behavioral disturbance, severe: Status: Acute Code(s): F01.C18 - Vascular dementia, severe, with other behavioral disturbance (2) Developmental delay, moderate: Status: Deleted Code(s): R62.50 - Unspecified lack of expected normal physiological development in childhood Plan Plan Ms. Ronquillo is a 69 year-old woman with hx of developmental delay, vascular dementia who was brought via EMS due to increase aggression. Medical work up mostly unremarkable, except for TSH 22, free T4 1.22. She is on levothyroxine, unclear if taking it as prescribed. This engineering technical writer spoke with pt's psychiatric provider, Tammy Randall who reports she has been adjusting dose of seroquel. She has been on carbamazepine for a long time for mood stabilization- will check level. Will add diazepam for impulsive/explosive behaviors. PLAN 1. Admit to S1, on Close observation for aggressive behaviors. 2. will switch carbamazepine to depakote- as carbamazepine may be interacting with other medications and may not be as effective managing impulsive/explosive behaviors. Depakote may activate patient and make her more aggressive. Taper down. 3. continue for now seroquel and Zyrepxa, but may consider changing antipsychotic medication as well. 4. obtain collateral information 5. aftercare planning. 07/16/25: TSH 0.07. VPA level 41.5. Total protein 6.0. Albumin 2.9. BUN 22. Ammonia level 38. 06/25 continue to present as agitated, combative. increase depakote to 500mg po BID. continue seroquel for now but may also consider switching antipsychotics as well. 06/26 continue tx. 06/27 continue current medications, will check depakote level on Monday. 06/28 added olanzapine 10mg at night- I see she has seroquel but seems like not adequate and depakote not making substantial gain as yet olanzapine can be discontinued after more stable on depakote- 06/29 CTP- 06/30 check depakote level tomorrow AM. Will decrease seroquel to 100mg po BID, continue seroquel 200mg po at noon. Increase olazapine to 10mg po BID. plan to cross taper to olanzapine. May add sertraline as antidepressant. 07/01 will increase olanzapine to 10mg po TID, will continue current decreased dose of seroquel for now. continue depakote 500mg po BID- will adjust dose as we get levels. no signs of increase ammonia. 07/02 continue tx. febrile, no SOB. seen by hospitalist. chest xr showed interstitial edema- consult to pulmonology. 07/03 started on doxycycline by receptionist clerk. refused echo but will attempt tomorrow. 07/04 continue tx. 07/08- increase valium 10mg po TID, continue olanzapine, depakote 750mg po BID. increase agitation today. 07/09 continue tx. 07/10 continue tx. 07/11 continue tx. but may need to revisit overall treatment. 07/12: Continue current regimen and plans 07/13: Continue current regimen and plans 07/14: Continue current regimen and plans. 07/15 increasingly more agitated, sleep reversal which may be concerning for increase ammonia combine with increase agitation. will decrease depakote, add lactulose, since can't check ammonia she refuses and very agitated. not responding to medications. 07/16/25: Meet with patient in her room after lunch. Engaged with eye closed. Denies pain, depression or anxiety. Denies hallucinations. Patient is sedated and mostly sleeping this morning. Slept for 4 hours last night but was back to bed after 5 AM. Patient had lab drawn this morning but refuse to give urine sample to rule out any UTI as per nursing staff, patient got worse the past week, been refused labs, was agitated, abusive, and aggressive yesterday. Got PRN meds with mild to moderate effects. Patient is up, took AM meds late, ate 100% for lunch and back to bed again. Not swearing and yelling loudly compared to yesterday. Zyprexa, Valium, and Seroquel scheduled held in the AM and at 1500 d/t sedation. In better behavior control. Hospital consult placed d/t Low TSH 0.07. Remain on Close Obs for agitation/aggressive behaviors. 07/17/25: Patient slept for 4 hours last night. Received extra medication on overnight (zyprexa 10 and Valium 10 x1 dose), appear calm, more quiet, shower, up, and out to dining area for breakfast and lunch. Ate well at breakfast but not much for lunch. She says I want to go home and Ill try when asked if she can give urine sample. Denies pain, denies safety concerns i want to go home . Per nursing, patient had two large BM last night, some incontinence on night. Got to showered after breakfast. No foul swearing or minimal of swearing. Will discontinue Lactulose. VPA low but WNL, Ammonia WNL. Seen by hospitalist: Levothyroxine from 225 to 200mcg d/t low TSH. Recheck in 4-6 weeks. Pending U/A: collecting sample. 07/18/25:Patient slept through the night, compliant with medicationsy, but medications occasionally get held as patient was slept through the scheduled meds. Was given Seroquel p.r.n. around 05:00 this morning, therefore patient slept until almost 10 30 this morning. Ate some snacks, hang out in dining room, calm cooperative, and apologized for her behavior for yelling out loud at staff when she was in her room. \ Patient is much calmer, even though she had moment of yelling swearing at staff with foul language but seem improving in agitation. Patient expressed that she wanted to go home, and asked when she can go home. UA was negative. U/A: some abnormality but no UTI- pending culture 07/19/25: Patient slept for 8 hours, compliant with medications. Visible and appropriate in common areas, ambulate using the walker. She is much calmer, nicer and not swearing at peers or staff. Reported that someone told her that she is living on Monday. She is aware that today is Monday I am going home on Monday . Some incontinence issues at night, but using the bathroom when she needs to during daytime. Approachable, happy affect, aware of surrounding. Continued to improve. No UTI. Culture result WNL. Will increase Seroquel at night up to 150mg start 07/20. 07/20/25:Patient slept for 7-8 hours last night, compliant with medications, remain calm, visible in common area, pleasant and cooperative upon approach. Incontinence issues with urine today, ambulate using the walker, some mild drooling observed when sitting at a table falling asleep. Denies safety concerns. Continued to improve in mood. No yelling. Reduced Valium from 10mg TID down to BID 07/21/25: Patient slept well at night, good appetite, ambulating using walker. No fall. In general calm, pleasant and cooperative. Moments of irritable and frustrated easily when she her requests are not met fast/quick enough. Want to shower during lunch time and wanted to discharge today. Denies pain, able to change clothing herself. Denies SI/SIB/HI/AVH. Continue with Valium taper. SW will contact regarding discharge plan/aftercare plan. 07/22/25: Patient slept for 7 hours, good meal intake. Continued to improve in mood, quiet, calm, pleasant and cooperative. She met with her long-term staff, spent sometimes in dining room playing cards, ate lunch late. Continued to on benzo taper. Possible discharge next week. conservation worker is in contact with the long-term staff regarding discharge plan. Valium down from 10mg BID to 5mg BID Reduced PRN Seroquel 100mg BID to 50mg BID. Patient educated on: diagnosis, medication risk/benefits and therapeutic strategies Informed Consent: understands and further education needed Reason for continued inpatient stay Substantial Risk for: med/psych decompensation Time Spent With Patient Time: Total time managing care of this patient today ____ minutes.
[2025-07-22 20:04] VITALS: BP 111/54; PULSE 85; RESP 18; TEMP 36.5; O2SAT 93
[2025-07-23 07:57] VITALS: BP 155/70; PULSE 69; RESP 18; TEMP 36.2; O2SAT 98
[2025-07-23] MEDS: Aspirin Enteric Coated 81 MG TABLET.DR PO (08:47)
[2025-07-23] MEDS: Ferrous Sulfate 324 MG TABLET.DR PO (08:47)
[2025-07-23] MEDS: PT OWN (Vibegron [Gemtesa] 75 mg tablet) 75 EACH PO (08:52)
[2025-07-23 19:48] VITALS: BP 105/52; PULSE 78; RESP 18; TEMP 36.6; O2SAT 94
--- NOTE | 2025-07-23 23:22 | HO.PSYCHPN ---
Subjective Subjective Date of Service: 07/23/25 Reason For Visit: Combative Behaviors Subjective Notes: Conditional Voluntary Medical Problems Affecting Mental Status: No Interim History: Medical record and nursing notes reviewed; case discussed during rounds with team/nursing staff, and met with patient for supportive therapy/psychoeducation, as well as medication management. Calm, pleasant and cooperative. Continue to improve in mood, sleep and appetite. She spent most of morning visible in common areas, coloring and engage in activities. No yelling. No issues with appetite. No safety concerns. Continue to taper down on Valium. Less sedated. Possible discharge next week on Monday back to . Ambulate using walker. No falls. Medication Compliance: Yes Side effects from medications: No Attending Groups: Yes Review of Systems Acute medical concerns: No Medical Review of Systems: unchanged Review of Systems Review of Systems She denies any shortness of breath or chest pain, she denies any abdominal pain. Ambulate using walker. Yes all other systems are reviewed and are negative Mental Status Exam Mental Status Exam Narrative: Appearance: wearing casual clothing, fair hygiene Behavior: calm, pleasant and cooperative. Psychomotor: not observed Speech: WNL baseline, spontaneous TP: organized TC: WNL Mood: good Affect: congruent SI: denies HI: denies VH/AH: no signs Delusions: no overt delusions Insight/judgment: impaired x2 but improved alert, oriented to hospital. Diagnostics Vital Signs (24Hr): Vital Signs - 24 hr 07/23/25 07:57 07/23/25 19:48 Temperature 97.1 F 97.8 F Pulse Rate 69 78 Respiratory Rate 18 18 Blood Pressure 155/70 H 105/52 L Pulse Oximetry 98 94 Oxygen Delivery Method Room Air Room Air BMI result Body Mass Index 28.1 Labs 06/19/25 17:56 07/16/25 11:17 Imaging Radiology Impressions: ITS Impressions Chest X-Ray 07/02/25 15:14 IMPRESSION: Concerning interstitial lung edema. Questionable airspace disease, left lower lung lobe. Electronically signed by: Srinivasan Baron MD 07/02/2025 03:30 PM EDT RP Chest X-Ray 07/23/25 10:34 IMPRESSION: No acute airspace disease. Resolved. Electronically signed by: Srinivasan Baron MD 07/23/2025 10:40 AM EDT RP Medications Medications Current Medications Acetaminophen (Acetaminophen 325 Mg Tablet) 650 mg PO Q4H PRN PRN Reason: Pain Last Admin: 07/23/25 21:44 Dose: 650 mg Al Hydroxide/Mg Hydroxide (Magnesium Hydrox/Alum Hydrox 30 Ml Oral.Susp) 30 ml PO Q6H PRN PRN Reason: Heartburn/Nausea Ascorbic Acid (Ascorbic Acid 500 Mg Tablet) 500 mg PO BID [facility] Last Admin: 07/23/25 20:54 Dose: 500 mg Aspirin (Aspirin Enteric Coated 81 Mg Tablet.) 81 mg PO DAILY [facility] Last Admin: 07/23/25 08:47 Dose: 81 mg Betamethasone Dipropion Augmented (Betamethasone Dip Aug 0.05% Cr 15 Gm Tube) 1 appl TOPICAL BID PRN PRN Reason: Dry areas on hand Last Admin: 07/12/25 10:02 Dose: 1 appl Diazepam (Diazepam 5 Mg Tablet) 5 mg PO BID [facility] Last Admin: 07/23/25 20:53 Dose: 5 mg Divalproex Sodium (Divalproex Sodium 250 Mg Tablet.) 250 mg PO BID [facility] Last Admin: 07/23/25 20:53 Dose: 250 mg Docusate Sodium (Docusate Sodium 100 Mg Capsule) 100 mg PO BID [facility] Last Admin: 07/23/25 20:53 Dose: 100 mg Donepezil HCl (Donepezil Hcl 5 Mg Tablet) 5 mg PO BEDTIME [facility] Last Admin: 07/23/25 20:53 Dose: 5 mg Ferrous Sulfate (Ferrous Sulfate 324 Mg Tablet.) 324 mg PO MOWEFR@0900 [facility] Last Admin: 07/23/25 08:47 Dose: 324 mg Fluticasone Propionate (Fluticasone Propionate Nasal 16 Gm Pickerel) 1 spray NOSTRIL-B BID PRN PRN Reason: Nasal Congestion Last Admin: 07/20/25 11:43 Dose: 1 spray Guaifenesin/Dextromethorphan (Guaifenesin Dm 100/10/5 Ml 5 Ml Syrup) 10 ml PO QID PRN PRN Reason: Cough Levothyroxine Sodium (Levothyroxine Sodium 200 Mcg Tablet) 200 mcg PO 0630 [facility] Last Admin: 07/23/25 06:38 Dose: 200 mcg Loratadine (Loratadine 10 Mg Tablet) 10 mg PO DAILY [facility] Last Admin: 10/22/25 08:47 Dose: 10 mg Magnesium Hydroxide (Milk Of Magnesia 30 Ml Oral.Susp) 30 ml PO DAILY PRN PRN Reason: Constipation Melatonin (Melatonin 3 Mg Tablet) 9 mg PO BEDTIME [facility] Last Admin: 07/23/25 20:53 Dose: 9 mg Memantine (Memantine Hcl 5 Mg Tablet) 5 mg PO BID [facility] Last Admin: 07/23/25 20:54 Dose: 5 mg Multivitamins/Vitamin C (Multivitamin Tablet) 1 tab PO DAILY [facility] Last Admin: 07/23/25 08:47 Dose: 1 tab Pt Own (Vibegron [ Gemtesa] 75 Mg Tablet) 75 mg PO DAILY [facility] Last Admin: 07/23/25 08:52 Dose: 75 mg Nystatin (Nystatin Powder 15 Gm Bottle) 1 appl TOPICAL BID PRN; Protocol PRN Reason: Rash Olanzapine (Olanzapine 10 Mg Tablet) 10 mg PO TID [facility] Last Admin: 07/23/25 20:53 Dose: 10 mg Quetiapine Fumarate (Quetiapine Fumarate 100 Mg Tablet) 100 mg PO BID [facility] Last Admin: 07/23/25 20:54 Dose: 100 mg Quetiapine Fumarate (Quetiapine Fumarate 50 Mg Tablet) 50 mg PO BEDTIME [facility] Last Admin: 07/23/25 20:54 Dose: 50 mg Quetiapine Fumarate (Quetiapine Fumarate 50 Mg Tablet) 50 mg PO BID PRN PRN Reason: severe agitation Senna (Sennosides 8.6 Mg Tablet) 8.6 mg PO Q48H [facility] Last Admin: 07/23/25 08:47 Dose: 8.6 mg Sertraline HCl (Sertraline Hcl 50 Mg Tablet) 50 mg PO DAILY [facility] Last Admin: 07/23/25 08:47 Dose: 50 mg Tamsulosin HCl (Tamsulosin Hcl 0.4 Mg Capsule) 0.4 mg PO DAILY [facility] Last Admin: 07/23/25 08:47 Dose: 0.4 mg Trazodone HCl (Trazodone Hcl 50 Mg Tablet) 150 mg PO BEDTIME [facility] Last Admin: 07/23/25 20:53 Dose: 150 mg Triamcinolone Acetonide (Triamcinolone Acet 0.1 % Oint 15 Gm Tube) 1 appl TOPICAL BID PRN PRN Reason: Skin Irritation Allergies Allergies Allergy/AdvReac Type Severity Reaction Status Date / Time adhesive tape Allergy Intermediate itching Verified 06/19/25 16:08 and skin redness latex Allergy Intermediate skin rash Verified 06/19/25 16:08 and itching Seasonal Allergies Allergy Itching Verified 06/19/25 16:08 weed pollen Allergy stuffy nose Verified 06/19/25 16:08 DUST Allergy Unknown ITCHY/WATERY Uncoded 06/19/25 16:08 EYES surgical paper tape Allergy Unknown rash Uncoded 06/19/25 16:08 Tide Allergy Unknown rash Uncoded 06/19/25 16:08 Assessment & Plan Assessment & Plan (1) Major neurocognitive disorder due to vascular disease, with behavioral disturbance, severe: Status: Acute Code(s): F01.C18 - Vascular dementia, severe, with other behavioral disturbance (2) Developmental delay, moderate: Status: Deleted Code(s): R62.50 - Unspecified lack of expected normal physiological development in childhood Plan Plan Ms. Ronquillo is a 69 year-old woman with hx of developmental delay, vascular dementia who was brought via EMS due to increase aggression. Medical work up mostly unremarkable, except for TSH 22, free T4 1.22. She is on levothyroxine, unclear if taking it as prescribed. This magazine writer spoke with pt's psychiatric provider, Tammy Randall who reports she has been adjusting dose of seroquel. She has been on carbamazepine for a long time for mood stabilization- will check level. Will add diazepam for impulsive/explosive behaviors. PLAN 1. Admit to S1, on Close observation for aggressive behaviors. 2. will switch carbamazepine to depakote- as carbamazepine may be interacting with other medications and may not be as effective managing impulsive/explosive behaviors. Depakote may activate patient and make her more aggressive. Taper down. 3. continue for now seroquel and Zyrepxa, but may consider changing antipsychotic medication as well. 4. obtain collateral information 5. aftercare planning. 07/16/25: TSH 0.07. VPA level 41.5. Total protein 6.0. Albumin 2.9. BUN 22. Ammonia level 38. 06/25 continue to present as agitated, combative. increase depakote to 500mg po BID. continue seroquel for now but may also consider switching antipsychotics as well. 06/26 continue tx. 06/27 continue current medications, will check depakote level on Monday. 06/28 added olanzapine 10mg at night- I see she has seroquel but seems like not adequate and depakote not making substantial gain as yet olanzapine can be discontinued after more stable on depakote- 06/29 CTP- 06/30 check depakote level tomorrow AM. Will decrease seroquel to 100mg po BID, continue seroquel 200mg po at noon. Increase olazapine to 10mg po BID. plan to cross taper to olanzapine. May add sertraline as antidepressant. 07/01 will increase olanzapine to 10mg po TID, will continue current decreased dose of seroquel for now. continue depakote 500mg po BID- will adjust dose as we get levels. no signs of increase ammonia. 07/02 continue tx. febrile, no SOB. seen by hospitalist. chest xr showed interstitial edema- consult to pulmonology. 07/03 started on doxycycline by non destructive tester. refused echo but will attempt tomorrow. 07/04 continue tx. 07/08- increase valium 10mg po TID, continue olanzapine, depakote 750mg po BID. increase agitation today. 07/09 continue tx. 07/10 continue tx. 07/11 continue tx. but may need to revisit overall treatment. 07/12: Continue current regimen and plans 07/13: Continue current regimen and plans 07/14: Continue current regimen and plans. 07/15 increasingly more agitated, sleep reversal which may be concerning for increase ammonia combine with increase agitation. will decrease depakote, add lactulose, since can't check ammonia she refuses and very agitated. not responding to medications. 07/16/25: Meet with patient in her room after lunch. Engaged with eye closed. Denies pain, depression or anxiety. Denies hallucinations. Patient is sedated and mostly sleeping this morning. Slept for 4 hours last night but was back to bed after 5 AM. Patient had lab drawn this morning but refuse to give urine sample to rule out any UTI as per nursing staff, patient got worse the past week, been refused labs, was agitated, abusive, and aggressive yesterday. Got PRN meds with mild to moderate effects. Patient is up, took AM meds late, ate 100% for lunch and back to bed again. Not swearing and yelling loudly compared to yesterday. Zyprexa, Valium, and Seroquel scheduled held in the AM and at 1500 d/t sedation. In better behavior control. Hospital consult placed d/t Low TSH 0.07. Remain on Close Obs for agitation/aggressive behaviors. 07/17/25: Patient slept for 4 hours last night. Received extra medication on overnight (zyprexa 10 and Valium 10 x1 dose), appear calm, more quiet, shower, up, and out to dining area for breakfast and lunch. Ate well at breakfast but not much for lunch. She says I want to go home and Ill try when asked if she can give urine sample. Denies pain, denies safety concerns i want to go home . Per nursing, patient had two large BM last night, some incontinence on night. Got to showered after breakfast. No foul swearing or minimal of swearing. Will discontinue Lactulose. VPA low but WNL, Ammonia WNL. Seen by hospitalist: Levothyroxine from 225 to 200mcg d/t low TSH. Recheck in 4-6 weeks. Pending U/A: collecting sample. 07/18/25:Patient slept through the night, compliant with medicationsy, but medications occasionally get held as patient was slept through the scheduled meds. Was given Seroquel p.r.n. around 05:00 this morning, therefore patient slept until almost 10 30 this morning. Ate some snacks, hang out in dining room, calm cooperative, and apologized for her behavior for yelling out loud at staff when she was in her room. \ Patient is much calmer, even though she had moment of yelling swearing at staff with foul language but seem improving in agitation. Patient expressed that she wanted to go home, and asked when she can go home. UA was negative. U/A: some abnormality but no UTI- pending culture 07/19/25: Patient slept for 8 hours, compliant with medications. Visible and appropriate in common areas, ambulate using the walker. She is much calmer, nicer and not swearing at peers or staff. Reported that someone told her that she is living on Monday. She is aware that today is Monday I am going home on Monday . Some incontinence issues at night, but using the bathroom when she needs to during daytime. Approachable, happy affect, aware of surrounding. Continued to improve. No UTI. Culture result WNL. Will increase Seroquel at night up to 150mg start 07/20. 07/20/25:Patient slept for 7-8 hours last night, compliant with medications, remain calm, visible in common area, pleasant and cooperative upon approach. Incontinence issues with urine today, ambulate using the walker, some mild drooling observed when sitting at a table falling asleep. Denies safety concerns. Continued to improve in mood. No yelling. Reduced Valium from 10mg TID down to BID 07/21/25: Patient slept well at night, good appetite, ambulating using walker. No fall. In general calm, pleasant and cooperative. Moments of irritable and frustrated easily when she her requests are not met fast/quick enough. Want to shower during lunch time and wanted to discharge today. Denies pain, able to change clothing herself. Denies SI/SIB/HI/AVH. Continue with Valium taper. SW will contact regarding discharge plan/aftercare plan. 07/22/25: Patient slept for 7 hours, good meal intake. Continued to improve in mood, quiet, calm, pleasant and cooperative. She met with her prison staff, spent sometimes in dining room playing cards, ate lunch late. Continued to on benzo taper. Possible discharge next week. location worker is in contact with the prison staff regarding discharge plan. Valium down from 10mg BID to 5mg BID Reduced PRN Seroquel 100mg BID to 50mg BID. 07/23/25: Calm, pleasant and cooperative. Continue to improve in mood, sleep and appetite. She spent most of morning visible in common areas, coloring and engage in activities. No yelling. No issues with appetite. No safety concerns. Continue to taper down on Valium. Tolerate well with med changes. Less sedated. Possible discharge next week on Monday back to . Ambulate using walker. No falls. Patient educated on: diagnosis, medication risk/benefits and therapeutic strategies Informed Consent: understands and further education needed Reason for continued inpatient stay Substantial Risk for: med/psych decompensation Time Spent With Patient Time: Total time managing care of this patient today ____ minutes.
[2025-07-24 07:00] VITALS: BMI 28.0
[2025-07-24 09:13] VITALS: BP 130/61; PULSE 97; RESP 18; TEMP 37.4; O2SAT 95
[2025-07-24] MEDS: Aspirin Enteric Coated 81 MG TABLET.DR PO (09:17)
[2025-07-24] MEDS: PT OWN (Vibegron [Gemtesa] 75 mg tablet) 75 EACH PO (11:44)
--- NOTE | 2025-07-24 11:51 | P.PNPSI_ITS ---
Subjective Subjective Date of Service: 07/24/25 Reason For Visit: Combative Behaviors Subjective Notes: Conditional Voluntary Interim History: Patient found lying in her bed. She feels good. She wants to go back to the residential. She denies anxiety or depression. She denies SI/HI/AH/VH. Per nursing, she slept 8 hours last night. No acute symptoms at this time Medication Compliance: Yes Side effects from medications: No Attending Groups: Intermittent Review of Systems Acute medical concerns: No Mental Status Exam Mental Status Exam Narrative: Appearance: Casually dressed, adequate hygiene Behavior: Calm and cooperative throughout the interview. Eye contact is appropriate, and there are no signs of psychomotor agitation or retardation Speech: Normal volume and prosody Thought process: Logical and goal-directed Thought content: Wants to return to residential Mood: Good Affect: Mood-congruent SI:denies HI:denies VH/AH:none Delusions: None Insight/judgment: Fair insight and judgment Memory/cog: Alert and oriented to person and place Diagnostics Vital Signs (24Hr): Vital Signs - 24 hr 07/23/25 19:48 07/24/25 09:13 Temperature 97.8 F 99.3 F Pulse Rate 78 97 Respiratory Rate 18 18 Blood Pressure 105/52 L 130/61 Pulse Oximetry 94 95 Oxygen Delivery Method Room Air Room Air BMI result Body Mass Index 28.1 Labs 06/19/25 17:56 07/16/25 11:17 Imaging Radiology Impressions: ITS Impressions Chest X-Ray 07/02/25 15:14 IMPRESSION: Concerning interstitial lung edema. Questionable airspace disease, left lower lung lobe. Electronically signed by: Srinivasan Baron MD 07/02/2025 03:30 PM EDT RP Chest X-Ray 07/23/25 10:34 IMPRESSION: No acute airspace disease. Resolved. Electronically signed by: Srinivasan Baron MD 07/23/2025 10:40 AM EDT RP Chest X-Ray 07/24/25 08:15 IMPRESSION: Concerning acute airspace disease, right middle lung lobe/right lower lung base. Electronically signed by: Srinivasan Baron MD 07/24/2025 08:23 AM EDT Medications Medications Current Medications Acetaminophen (Acetaminophen 325 Mg Tablet) 650 mg PO Q4H PRN PRN Reason: Pain Last Admin: 07/23/25 21:44 Dose: 650 mg Al Hydroxide/Mg Hydroxide (Magnesium Hydrox/Alum Hydrox 30 Ml Oral.Susp) 30 ml PO Q6H PRN PRN Reason: Heartburn/Nausea Ascorbic Acid (Ascorbic Acid 500 Mg Tablet) 500 mg PO BID [facility] Last Admin: 07/24/25 09:17 Dose: 500 mg Aspirin (Aspirin Enteric Coated 81 Mg Tablet.) 81 mg PO DAILY [facility] Last Admin: 07/24/25 09:17 Dose: 81 mg Betamethasone Dipropion Augmented (Betamethasone Dip Aug 0.05% Cr 15 Gm Tube) 1 appl TOPICAL BID PRN PRN Reason: Dry areas on hand Last Admin: 07/12/25 10:02 Dose: 1 appl Diazepam (Diazepam 5 Mg Tablet) 5 mg PO BID [facility] Last Admin: 07/24/25 09:17 Dose: 5 mg Divalproex Sodium (Divalproex Sodium 250 Mg Tablet.) 250 mg PO BID [facility] Last Admin: 07/24/25 09:17 Dose: 250 mg Docusate Sodium (Docusate Sodium 100 Mg Capsule) 100 mg PO BID [facility] Last Admin: 07/24/25 09:17 Dose: 100 mg Donepezil HCl (Donepezil Hcl 5 Mg Tablet) 5 mg PO BEDTIME [facility] Last Admin: 07/23/25 20:53 Dose: 5 mg Ferrous Sulfate (Ferrous Sulfate 324 Mg Tablet.) 324 mg PO MOWEFR@0900 [facility] Last Admin: 07/23/25 08:47 Dose: 324 mg Fluticasone Propionate (Fluticasone Propionate Nasal 16 Gm [place]) 1 spray NOSTRIL-B BID PRN PRN Reason: Nasal Congestion Last Admin: 07/20/25 11:43 Dose: 1 spray Guaifenesin/Dextromethorphan (Guaifenesin Dm 100/10/5 Ml 5 Ml Syrup) 10 ml PO QID PRN PRN Reason: Cough Levothyroxine Sodium (Levothyroxine Sodium 200 Mcg Tablet) 200 mcg PO 0630 [facility] Last Admin: 07/24/25 05:54 Dose: 200 mcg Loratadine (Loratadine 10 Mg Tablet) 10 mg PO DAILY [facility] Last Admin: 07/24/25 09:17 Dose: 10 mg Magnesium Hydroxide (Milk Of Magnesia 30 Ml Oral.Susp) 30 ml PO DAILY PRN PRN Reason: Constipation Melatonin (Melatonin 3 Mg Tablet) 9 mg PO BEDTIME [facility] Last Admin: 07/23/25 20:53 Dose: 9 mg Memantine (Memantine Hcl 5 Mg Tablet) 5 mg PO BID [facility] Last Admin: 07/24/25 09:17 Dose: 5 mg Multivitamins/Vitamin C (Multivitamin Tablet) 1 tab PO DAILY [facility] Last Admin: 07/24/25 09:17 Dose: 1 tab Non-Formulary Medication (Vibegron [Gemtesa]) 75 mg PO DAILY [facility] Nystatin (Nystatin Powder 15 Gm Bottle) 1 appl TOPICAL BID PRN; Protocol PRN Reason: Rash Olanzapine (Olanzapine 10 Mg Tablet) 10 mg PO TID [facility] Last Admin: 07/24/25 09:17 Dose: 10 mg Quetiapine Fumarate (Quetiapine Fumarate 100 Mg Tablet) 100 mg PO BID [facility] Last Admin: 07/24/25 09:17 Dose: 100 mg Quetiapine Fumarate (Quetiapine Fumarate 50 Mg Tablet) 50 mg PO BEDTIME [facility] Last Admin: 07/23/25 20:54 Dose: 50 mg Quetiapine Fumarate (Quetiapine Fumarate 50 Mg Tablet) 50 mg PO BID PRN PRN Reason: severe agitation Senna (Sennosides 8.6 Mg Tablet) 8.6 mg PO Q48H [facility] Last Admin: 07/23/25 08:47 Dose: 8.6 mg Sertraline HCl (Sertraline Hcl 50 Mg Tablet) 50 mg PO DAILY [facility] Last Admin: 07/24/25 09:17 Dose: 50 mg Tamsulosin HCl (Tamsulosin Hcl 0.4 Mg Capsule) 0.4 mg PO DAILY [facility] Last Admin: 07/24/25 09:17 Dose: 0.4 mg Trazodone HCl (Trazodone Hcl 50 Mg Tablet) 150 mg PO BEDTIME [facility] Last Admin: 07/23/25 20:53 Dose: 150 mg Triamcinolone Acetonide (Triamcinolone Acet 0.1 % Oint 15 Gm Tube) 1 appl TOPICAL BID PRN PRN Reason: Skin Irritation Allergies Allergies Allergy/AdvReac Type Severity Reaction Status Date / Time adhesive tape Allergy Intermediate itching Verified 06/19/25 16:08 and skin redness latex Allergy Intermediate skin rash Verified 06/19/25 16:08 and itching Seasonal Allergies Allergy Itching Verified 06/19/25 16:08 weed pollen Allergy stuffy nose Verified 06/19/25 16:08 DUST Allergy Unknown ITCHY/WATERY Uncoded 06/19/25 16:08 EYES surgical paper tape Allergy Unknown rash Uncoded 06/19/25 16:08 Tide Allergy Unknown rash Uncoded 06/19/25 16:08 Assessment & Plan Assessment & Plan (1) Major neurocognitive disorder due to vascular disease, with behavioral disturbance, severe: Status: Acute Code(s): F01.C18 - Vascular dementia, severe, with other behavioral disturbance (2) Developmental delay, moderate: Status: Deleted Code(s): R62.50 - Unspecified lack of expected normal physiological development in childhood Plan Plan Ms. Ronquillo is a 69 year-old woman with hx of developmental delay, vascular dementia who was brought via EMS due to increase aggression. Medical work up mostly unremarkable, except for TSH 22, free T4 1.22. She is on levothyroxine, unclear if taking it as prescribed. This physician underwriter spoke with pt's psychiatric provider, Tammy Randall who reports she has been adjusting dose of seroquel. She has been on carbamazepine for a long time for mood stabilization- will check level. Will add diazepam for impulsive/explosive behaviors. PLAN 1. Admit to S1, on Close observation for aggressive behaviors. 2. will switch carbamazepine to depakote- as carbamazepine may be interacting with other medications and may not be as effective managing impulsive/explosive behaviors. Depakote may activate patient and make her more aggressive. Taper down. 3. continue for now seroquel and Zyrepxa, but may consider changing antipsychotic medication as well. 4. obtain collateral information 5. aftercare planning. 07/16/25: TSH 0.07. VPA level 41.5. Total protein 6.0. Albumin 2.9. BUN 22. Ammonia level 38. 06/25 continue to present as agitated, combative. increase depakote to 500mg po BID. continue seroquel for now but may also consider switching antipsychotics as well. 06/26 continue tx. 06/27 continue current medications, will check depakote level on Monday. 06/28 added olanzapine 10mg at night- I see she has seroquel but seems like not adequate and depakote not making substantial gain as yet olanzapine can be discontinued after more stable on depakote- 06/29 CTP- 06/30 check depakote level tomorrow AM. Will decrease seroquel to 100mg po BID, continue seroquel 200mg po at noon. Increase olazapine to 10mg po BID. plan to cross taper to olanzapine. May add sertraline as antidepressant. 07/01 will increase olanzapine to 10mg po TID, will continue current decreased dose of seroquel for now. continue depakote 500mg po BID- will adjust dose as we get levels. no signs of increase ammonia. 07/02 continue tx. febrile, no SOB. seen by hospitalist. chest xr showed interstitial edema- consult to pulmonology. 07/03 started on doxycycline by police radio dispatcher. refused echo but will attempt tomorrow. 07/04 continue tx. 07/08- increase valium 10mg po TID, continue olanzapine, depakote 750mg po BID. increase agitation today. 07/09 continue tx. 07/10 continue tx. 07/11 continue tx. but may need to revisit overall treatment. 07/12: Continue current regimen and plans 07/13: Continue current regimen and plans 07/14: Continue current regimen and plans. 07/15 increasingly more agitated, sleep reversal which may be concerning for increase ammonia combine with increase agitation. will decrease depakote, add lactulose, since can't check ammonia she refuses and very agitated. not responding to medications. 07/16/25: Meet with patient in her room after lunch. Engaged with eye closed. Denies pain, depression or anxiety. Denies hallucinations. Patient is sedated and mostly sleeping this morning. Slept for 4 hours last night but was back to bed after 5 AM. Patient had lab drawn this morning but refuse to give urine sample to rule out any UTI as per nursing staff, patient got worse the past week, been refused labs, was agitated, abusive, and aggressive yesterday. Got PRN meds with mild to moderate effects. Patient is up, took AM meds late, ate 100% for lunch and back to bed again. Not swearing and yelling loudly compared to yesterday. Zyprexa, Valium, and Seroquel scheduled held in the AM and at 1500 d/t sedation. In better behavior control. Hospital consult placed d/t Low TSH 0.07. Remain on Close Obs for agitation/aggressive behaviors. 07/17/25: Patient slept for 4 hours last night. Received extra medication on overnight (zyprexa 10 and Valium 10 x1 dose), appear calm, more quiet, shower, up, and out to dining area for breakfast and lunch. Ate well at breakfast but not much for lunch. She says I want to go home and Ill try when asked if she can give urine sample. Denies pain, denies safety concerns i want to go home . Per nursing, patient had two large BM last night, some incontinence on night. Got to showered after breakfast. No foul swearing or minimal of swearing. Will discontinue Lactulose. VPA low but WNL, Ammonia WNL. Seen by hospitalist: Levothyroxine from 225 to 200mcg d/t low TSH. Recheck in 4- 6 weeks. Pending U/A: collecting sample. 07/18/25:Patient slept through the night, compliant with medicationsy, but medications occasionally get held as patient was slept through the scheduled meds. Was given Seroquel p.r.n. around 05:00 this morning, therefore patient slept until almost 10 30 this morning. Ate some snacks, hang out in dining room, calm cooperative, and apologized for her behavior for yelling out loud at staff when she was in her room. \ Patient is much calmer, even though she had moment of yelling swearing at staff with foul language but seem improving in agitation. Patient expressed that she wanted to go home, and asked when she can go home. UA was negative. U/A: some abnormality but no UTI- pending culture 07/19/25: Patient slept for 8 hours, compliant with medications. Visible and appropriate in common areas, ambulate using the walker. She is much calmer, nicer and not swearing at peers or staff. Reported that someone told her that she is living on Monday. She is aware that today is Monday I am going home on Monday . Some incontinence issues at night, but using the bathroom when she needs to during daytime. Approachable, happy affect, aware of surrounding. Continued to improve. No UTI. Culture result WNL. Will increase Seroquel at night up to 150mg start 07/20. 07/20/25:Patient slept for 7-8 hours last night, compliant with medications, remain calm, visible in common area, pleasant and cooperative upon approach. Incontinence issues with urine today, ambulate using the walker, some mild drooling observed when sitting at a table falling asleep. Denies safety concerns. Continued to improve in mood. No yelling. Reduced Valium from 10mg TID down to BID 07/21/25: Patient slept well at night, good appetite, ambulating using walker. No fall. In general calm, pleasant and cooperative. Moments of irritable and frustrated easily when she her requests are not met fast/quick enough. Want to shower during lunch time and wanted to discharge today. Denies pain, able to change clothing herself. Denies SI/SIB/HI/AVH. Continue with Valium taper. SW will contact regarding discharge plan/aftercare plan. 07/22/25: Patient slept for 7 hours, good meal intake. Continued to improve in mood, quiet, calm, pleasant and cooperative. She met with her residential staff, spent sometimes in dining room playing cards, ate lunch late. Continued to on benzo taper. Possible discharge next week. yard worker is in contact with the residential staff regarding discharge plan. Valium down from 10mg BID to 5mg BID Reduced PRN Seroquel 100mg BID to 50mg BID. 07/23/25: Calm, pleasant and cooperative. Continue to improve in mood, sleep and appetite. She spent most of morning visible in common areas, coloring and engage in activities. No yelling. No issues with appetite. No safety concerns. Continue to taper down on Valium. Tolerate well with med changes. Less sedated. Possible discharge next week on Monday back to . Ambulate using walker. No falls. 07/24: Continue current treatment regimen. May discharge to residential next Monday.. Patient educated on: therapeutic strategies Reason for continued inpatient stay Substantial Risk for: rapid decompensation Time Spent With Patient Time: Total time managing care of this patient today ____ minutes.
[2025-07-24 19:54] VITALS: BP 117/58; PULSE 78; RESP 16; TEMP 36.9; O2SAT 93
[2025-07-25 08:25] VITALS: BP 113/58; PULSE 70; RESP 16; TEMP 37.6; O2SAT 94
[2025-07-25] MEDS: Aspirin Enteric Coated 81 MG TABLET.DR PO (08:27)
[2025-07-25] MEDS: Ferrous Sulfate 324 MG TABLET.DR PO (08:28)
--- NOTE | 2025-07-25 12:23 | HO.PSYCHPN ---
Subjective Subjective Date of Service: 07/25/25 Reason For Visit: Combative Behaviors Subjective Notes: Conditional Voluntary Medical Problems Affecting Mental Status: No Interim History: Medical record and nursing notes reviewed; case discussed during rounds with team/nursing staff, and met with patient for supportive therapy/psychoeducation, as well as medication management. Patient spent most of the morning in room, out for meals and back to bed napping again.She is quiet, calm, and polite upon approach. No cough but has some running nose. No safety concerns. She tolerates well with BZD taper, will continue lower down on Valium and some other medication changes. Ambulate using walker, no fall. Had BM this morning. Appear tired. Collateral done with hospitalist regarding repeat CXray. Hospitalist contacted Copy Technician. Some labs work for tomorrow. Medication Compliance: Yes Side effects from medications: No Attending Groups: Intermittent Review of Systems Acute medical concerns: No Medical Review of Systems: unchanged Review of Systems Review of Systems She denies any shortness of breath or chest pain, she denies any abdominal pain. Ambulate using walker. Running nose noted. Yes all other systems are reviewed and are negative Mental Status Exam Mental Status Exam Narrative: Appearance: Casually dressed, adequate hygiene Behavior: Calm and cooperative throughout the interview. Eye contact is appropriate, and there are no signs of psychomotor agitation or retardation Speech: Normal volume and prosody Thought process: Logical and goal-directed Thought content: Wants to return to [facility] Mood: Good , quiet and tired Affect: Mood-congruent SI:denies HI:denies VH/AH:none Delusions: None Insight/judgment: Fair insight and judgment Memory/cog: Alert and oriented to person and place Diagnostics Vital Signs (24Hr): Vital Signs - 24 hr 07/24/25 19:54 07/25/25 08:25 Temperature 98.4 F 99.7 F Pulse Rate 78 70 Respiratory Rate 16 16 Blood Pressure 117/58 L 113/58 L Pulse Oximetry 93 94 Oxygen Delivery Method Room Air Room Air BMI result Body Mass Index 28.0 Labs 06/19/25 17:56 07/16/25 11:17 Imaging Radiology Impressions: ITS Impressions Chest X-Ray 07/02/25 15:14 IMPRESSION: Concerning interstitial lung edema. Questionable airspace disease, left lower lung lobe. Electronically signed by: Srinivasan Baron MD 07/02/2025 03:30 PM EDT RP Chest X-Ray 07/23/25 10:34 IMPRESSION: No acute airspace disease. Resolved. Electronically signed by: Srinivasan Baron MD 07/23/2025 10:40 AM EDT RP Chest X-Ray 07/24/25 08:15 IMPRESSION: Concerning acute airspace disease, right middle lung lobe/right lower lung base. Electronically signed by: Srinivasan Baron MD 07/24/2025 08:23 AM EDT RP Medications Medications Current Medications Acetaminophen (Acetaminophen 325 Mg Tablet) 650 mg PO Q4H PRN PRN Reason: Pain Last Admin: 07/23/25 21:44 Dose: 650 mg Al Hydroxide/Mg Hydroxide (Magnesium Hydrox/Alum Hydrox 30 Ml Oral.Susp) 30 ml PO Q6H PRN PRN Reason: Heartburn/Nausea Ascorbic Acid (Ascorbic Acid 500 Mg Tablet) 500 mg PO BID [facility] Last Admin: 07/25/25 08:28 Dose: 500 mg Aspirin (Aspirin Enteric Coated 81 Mg Tablet.) 81 mg PO DAILY [facility] Last Admin: 07/25/25 08:27 Dose: 81 mg Betamethasone Dipropion Augmented (Betamethasone Dip Aug 0.05% Cr 15 Gm Tube) 1 appl TOPICAL BID PRN PRN Reason: Dry areas on hand Last Admin: 07/12/25 10:02 Dose: 1 appl Diazepam (Diazepam 2 Mg Tablet) 2 mg PO BID [facility] Divalproex Sodium (Divalproex Sodium 250 Mg Tablet.) 250 mg PO BID [facility] Last Admin: 07/25/25 08:27 Dose: 250 mg Docusate Sodium (Docusate Sodium 100 Mg Capsule) 100 mg PO BID [facility] Last Admin: 07/25/25 08:31 Dose: 100 mg Donepezil HCl (Donepezil Hcl 5 Mg Tablet) 5 mg PO BEDTIME [facility] Last Admin: 07/24/25 20:39 Dose: 5 mg Ferrous Sulfate (Ferrous Sulfate 324 Mg Tablet.) 324 mg PO MOWEFR@0900 [facility] Last Admin: 07/25/25 08:28 Dose: 324 mg Fluticasone Propionate (Fluticasone Propionate Nasal 16 Gm [place]) 1 spray NOSTRIL-B BID PRN PRN Reason: Nasal Congestion Last Admin: 07/20/25 11:43 Dose: 1 spray Guaifenesin/Dextromethorphan (Guaifenesin Dm 100/10/5 Ml 5 Ml Syrup) 10 ml PO QID PRN PRN Reason: Cough Levothyroxine Sodium (Levothyroxine Sodium 200 Mcg Tablet) 200 mcg PO 0630 [facility] Last Admin: 07/25/25 05:33 Dose: 200 mcg Loratadine (Loratadine 10 Mg Tablet) 10 mg PO DAILY [facility] Last Admin: 07/25/25 08:28 Dose: 10 mg Magnesium Hydroxide (Milk Of Magnesia 30 Ml Oral.Susp) 30 ml PO DAILY PRN PRN Reason: Constipation Melatonin (Melatonin 3 Mg Tablet) 6 mg PO BEDTIME [facility] Memantine (Memantine Hcl 5 Mg Tablet) 5 mg PO BID [facility] Last Admin: 07/25/25 08:28 Dose: 5 mg Multivitamins/Vitamin C (Multivitamin Tablet) 1 tab PO DAILY [facility] Last Admin: 07/25/25 08:28 Dose: 1 tab Non-Formulary Medication (Vibegron [Gemtesa]) 75 mg PO DAILY [facility] Last Admin: 07/25/25 08:32 Dose: 75 mg Nystatin (Nystatin Powder 15 Gm Bottle) 1 appl TOPICAL BID PRN; Protocol PRN Reason: Rash Olanzapine (Olanzapine 10 Mg Tablet) 10 mg PO TID [facility] Last Admin: 07/25/25 08:30 Dose: 10 mg Quetiapine Fumarate (Quetiapine Fumarate 100 Mg Tablet) 100 mg PO BID [facility] Last Admin: 07/25/25 08:27 Dose: 100 mg Quetiapine Fumarate (Quetiapine Fumarate 50 Mg Tablet) 50 mg PO BEDTIME [facility] Last Admin: 07/24/25 20:39 Dose: 50 mg Quetiapine Fumarate (Quetiapine Fumarate 50 Mg Tablet) 50 mg PO BID PRN PRN Reason: severe agitation Senna (Sennosides 8.6 Mg Tablet) 8.6 mg PO Q48H [facility] Last Admin: 07/25/25 08:27 Dose: 8.6 mg Sertraline HCl (Sertraline Hcl 50 Mg Tablet) 50 mg PO DAILY [facility] Last Admin: 07/25/25 08:28 Dose: 50 mg Tamsulosin HCl (Tamsulosin Hcl 0.4 Mg Capsule) 0.4 mg PO DAILY [facility] Last Admin: 07/25/25 08:28 Dose: 0.4 mg Trazodone HCl (Trazodone Hcl 50 Mg Tablet) 150 mg PO BEDTIME [facility] Last Admin: 07/24/25 20:40 Dose: 150 mg Triamcinolone Acetonide (Triamcinolone Acet 0.1 % Oint 15 Gm Tube) 1 appl TOPICAL BID PRN PRN Reason: Skin Irritation Allergies Allergies Allergy/AdvReac Type Severity Reaction Status Date / Time adhesive tape Allergy Intermediate itching Verified 06/19/25 16:08 and skin redness latex Allergy Intermediate skin rash Verified 06/19/25 16:08 and itching Seasonal Allergies Allergy Itching Verified 06/19/25 16:08 weed pollen Allergy stuffy nose Verified 06/19/25 16:08 DUST Allergy Unknown ITCHY/WATERY Uncoded 06/19/25 16:08 EYES surgical paper tape Allergy Unknown rash Uncoded 06/19/25 16:08 Tide Allergy Unknown rash Uncoded 06/19/25 16:08 Assessment & Plan Assessment & Plan (1) Major neurocognitive disorder due to vascular disease, with behavioral disturbance, severe: Status: Acute Code(s): F01.C18 - Vascular dementia, severe, with other behavioral disturbance (2) Developmental delay, moderate: Status: Deleted Code(s): R62.50 - Unspecified lack of expected normal physiological development in childhood Plan Plan Ms. Ronquillo is a 69 year-old woman with hx of developmental delay, vascular dementia who was brought via EMS due to increase aggression. Medical work up mostly unremarkable, except for TSH 22, free T4 1.22. She is on levothyroxine, unclear if taking it as prescribed. This marine underwriter spoke with pt's psychiatric provider, Tammy Randall who reports she has been adjusting dose of seroquel. She has been on carbamazepine for a long time for mood stabilization- will check level. Will add diazepam for impulsive/explosive behaviors. PLAN 1. Admit to S1, on Close observation for aggressive behaviors. 2. will switch carbamazepine to depakote- as carbamazepine may be interacting with other medications and may not be as effective managing impulsive/explosive behaviors. Depakote may activate patient and make her more aggressive. Taper down. 3. continue for now seroquel and Zyrepxa, but may consider changing antipsychotic medication as well. 4. obtain collateral information 5. aftercare planning. 07/16/25: TSH 0.07. VPA level 41.5. Total protein 6.0. Albumin 2.9. BUN 22. Ammonia level 38. 06/25 continue to present as agitated, combative. increase depakote to 500mg po BID. continue seroquel for now but may also consider switching antipsychotics as well. 06/26 continue tx. 06/27 continue current medications, will check depakote level on Monday. 06/28 added olanzapine 10mg at night- I see she has seroquel but seems like not adequate and depakote not making substantial gain as yet olanzapine can be discontinued after more stable on depakote- 06/29 CTP- 06/30 check depakote level tomorrow AM. Will decrease seroquel to 100mg po BID, continue seroquel 200mg po at noon. Increase olazapine to 10mg po BID. plan to cross taper to olanzapine. May add sertraline as antidepressant. 07/01 will increase olanzapine to 10mg po TID, will continue current decreased dose of seroquel for now. continue depakote 500mg po BID- will adjust dose as we get levels. no signs of increase ammonia. 07/02 continue tx. febrile, no SOB. seen by hospitalist. chest xr showed interstitial edema- consult to pulmonology. 07/03 started on doxycycline by pocket setter. refused echo but will attempt tomorrow. 07/04 continue tx. 07/08- increase valium 10mg po TID, continue olanzapine, depakote 750mg po BID. increase agitation today. 07/09 continue tx. 07/10 continue tx. 07/11 continue tx. but may need to revisit overall treatment. 07/12: Continue current regimen and plans 07/13: Continue current regimen and plans 07/14: Continue current regimen and plans. 07/15 increasingly more agitated, sleep reversal which may be concerning for increase ammonia combine with increase agitation. will decrease depakote, add lactulose, since can't check ammonia she refuses and very agitated. not responding to medications. 07/16/25: Meet with patient in her room after lunch. Engaged with eye closed. Denies pain, depression or anxiety. Denies hallucinations. Patient is sedated and mostly sleeping this morning. Slept for 4 hours last night but was back to bed after 5 AM. Patient had lab drawn this morning but refuse to give urine sample to rule out any UTI as per nursing staff, patient got worse the past week, been refused labs, was agitated, abusive, and aggressive yesterday. Got PRN meds with mild to moderate effects. Patient is up, took AM meds late, ate 100% for lunch and back to bed again. Not swearing and yelling loudly compared to yesterday. Zyprexa, Valium, and Seroquel scheduled held in the AM and at 1500 d/t sedation. In better behavior control. Hospital consult placed d/t Low TSH 0.07. Remain on Close Obs for agitation/aggressive behaviors. 07/17/25: Patient slept for 4 hours last night. Received extra medication on overnight (zyprexa 10 and Valium 10 x1 dose), appear calm, more quiet, shower, up, and out to dining area for breakfast and lunch. Ate well at breakfast but not much for lunch. She says I want to go home and Ill try when asked if she can give urine sample. Denies pain, denies safety concerns i want to go home . Per nursing, patient had two large BM last night, some incontinence on night. Got to showered after breakfast. No foul swearing or minimal of swearing. Will discontinue Lactulose. VPA low but WNL, Ammonia WNL. Seen by hospitalist: Levothyroxine from 225 to 200mcg d/t low TSH. Recheck in 4-6 weeks. Pending U/A: collecting sample. 07/18/25:Patient slept through the night, compliant with medicationsy, but medications occasionally get held as patient was slept through the scheduled meds. Was given Seroquel p.r.n. around 05:00 this morning, therefore patient slept until almost 10 30 this morning. Ate some snacks, hang out in dining room, calm cooperative, and apologized for her behavior for yelling out loud at staff when she was in her room. \ Patient is much calmer, even though she had moment of yelling swearing at staff with foul language but seem improving in agitation. Patient expressed that she wanted to go home, and asked when she can go home. UA was negative. U/A: some abnormality but no UTI- pending culture 07/19/25: Patient slept for 8 hours, compliant with medications. Visible and appropriate in common areas, ambulate using the walker. She is much calmer, nicer and not swearing at peers or staff. Reported that someone told her that she is living on Monday. She is aware that today is Monday I am going home on Monday . Some incontinence issues at night, but using the bathroom when she needs to during daytime. Approachable, happy affect, aware of surrounding. Continued to improve. No UTI. Culture result WNL. Will increase Seroquel at night up to 150mg start 07/20. 07/20/25:Patient slept for 7-8 hours last night, compliant with medications, remain calm, visible in common area, pleasant and cooperative upon approach. Incontinence issues with urine today, ambulate using the walker, some mild drooling observed when sitting at a table falling asleep. Denies safety concerns. Continued to improve in mood. No yelling. Reduced Valium from 10mg TID down to BID 07/21/25: Patient slept well at night, good appetite, ambulating using walker. No fall. In general calm, pleasant and cooperative. Moments of irritable and frustrated easily when she her requests are not met fast/quick enough. Want to shower during lunch time and wanted to discharge today. Denies pain, able to change clothing herself. Denies SI/SIB/HI/AVH. Continue with Valium taper. SW will contact regarding discharge plan/aftercare plan. 07/22/25: Patient slept for 7 hours, good meal intake. Continued to improve in mood, quiet, calm, pleasant and cooperative. She met with her [facility] staff, spent sometimes in dining room playing cards, ate lunch late. Continued to on benzo taper. Possible discharge next week. attraction worker is in contact with the [facility] staff regarding discharge plan. Valium down from 10mg BID to 5mg BID Reduced PRN Seroquel 100mg BID to 50mg BID. 07/23/25: Calm, pleasant and cooperative. Continue to improve in mood, sleep and appetite. She spent most of morning visible in common areas, coloring and engage in activities. No yelling. No issues with appetite. No safety concerns. Continue to taper down on Valium. Tolerate well with med changes. Less sedated. Possible discharge next week on Monday back to . Ambulate using walker. No falls. 07/24: Continue current treatment regimen. May discharge to [facility] next Monday. 07/25/25: Patient spent most of the morning in room, out for meals and back to bed napping again.She is quiet, calm, and polite upon approach. No cough but has some running nose. No safety concerns. She tolerates well with BZD taper, will continue lower down on Valium and some other medication changes. Ambulate using walker, no fall. Had BM this morning. Appear tired. Valium down to 2mg BID from 5mg BID. Down Melatonin from 9mg to 6mg at HS. Collateral done with hospitalist regarding repeat CXray. Hospitalist contacted Copy Technician. Result from Cxray on 07/24/25: Concerning acute airspace disease, right middle lung lobe/right lower lung base . Some labs work ordered per hospitalist plan: Covid, BMP, and CBC with diff: pending result. Tentative D/C next week on Monday. Patient educated on: medication risk/benefits and therapeutic strategies Informed Consent: understands and further education needed Reason for continued inpatient stay Substantial Risk for: med/psych decompensation Time Spent With Patient Time: Total time managing care of this patient today ____ minutes.
--- NOTE | 2025-07-25 15:41 | P.PNIM_ITS ---
Subjective Subjective Date of Service: 07/25/25 Interval History: Patient noted to have low-grade temp, x-ray done on 07/23 demonstrated no airspace disease. X-ray ordered on the concerning for acute airspace disease right middle lung lobe and right lower lung base. Cardiac silhouette unchanged. Patient fatigued. Was seen by pulmonology. We will order CT scan of the further definition, start patient on antibiotic therapy. Pulmonology updated. Denies shortness of breath, reports runny nose, no cough. Review of Systems Denies any shortness of breath, chest pain, headaches, dysuria, abdominal pain or discomfort, nausea, vomiting or diarrhea. Denies fever or chills. Physical Exam 2 Exam: Exam: Alert and oriented X3, clam and cooperative. Answers questions. Neuro: CN II-X11 intact, no deficits, visual acuity intact EYES: PERRLA, EOM intact ENT: Hearing intact, MMM Cardiac: S1 S2 RRR, No ectopy Pulmonary: Right lung diminished at bases, left lung clear, no wheezing no crackles. No increased WOB. Abdominal: BS active in all 4 quadrants, no guarding or tenderness MSK: Strength 5/5 upper and lower extremities : Deferred Extremities: No edema in lower extremities Psych: Mood stable, Quiet and cooperative. Skin: Warm and dry, Intact Vital Signs: Vital Signs: Last Vital Signs Temp 99.7 F 07/25/25 08:25 Pulse 70 07/25/25 08:25 Resp 16 07/25/25 08:25 BP 113/58 L 07/25/25 08:25 Pulse Ox 94 07/25/25 08:25 O2 Del Method Room Air 07/25/25 08:25 BMI result Body Mass Index 28.0 Objective Data Active Medications Acetaminophen (Acetaminophen 325 Mg Tablet) 650 mg PO Q4H PRN PRN Reason: Pain Last Admin: 07/23/25 21:44 Dose: 650 mg Documented By: MARIAJOSE Al Hydroxide/Mg Hydroxide (Magnesium Hydrox/Alum Hydrox 30 Ml Oral.Susp) 30 ml PO Q6H PRN PRN Reason: Heartburn/Nausea Amoxicillin/Clavulanate Potassium (Amoxicillin/Potassium Clav 875 Mg Tablet) 875 mg PO BID [facility] Ascorbic Acid (Ascorbic Acid 500 Mg Tablet) 500 mg PO BID [facility] Last Admin: 07/25/25 08:28 Dose: 500 mg Documented By: JUDI Aspirin (Aspirin Enteric Coated 81 Mg Tablet.) 81 mg PO DAILY [facility] Last Admin: 07/25/25 08:27 Dose: 81 mg Documented By: JUDI Azithromycin (Azithromycin 250 Mg Tablet) 250 mg PO Q24H [facility] Stop: 07/30/25 15:59 Betamethasone Dipropion Augmented (Betamethasone Dip Aug 0.05% Cr 15 Gm Tube) 1 appl TOPICAL BID PRN PRN Reason: Dry areas on hand Last Admin: 07/12/25 10:02 Dose: 1 appl Documented By: DALY Diazepam (Diazepam 2 Mg Tablet) 2 mg PO BID [facility] Divalproex Sodium (Divalproex Sodium 250 Mg Tablet.) 250 mg PO BID [facility] Last Admin: 07/25/25 08:27 Dose: 250 mg Documented By: JUDI Docusate Sodium (Docusate Sodium 100 Mg Capsule) 100 mg PO BID [facility] Last Admin: 07/25/25 08:31 Dose: 100 mg Documented By: JUDI Donepezil HCl (Donepezil Hcl 5 Mg Tablet) 5 mg PO BEDTIME [facility] Last Admin: 07/24/25 20:39 Dose: 5 mg Documented By: VINEET Ferrous Sulfate (Ferrous Sulfate 324 Mg Tablet.) 324 mg PO MOWEFR@0900 [facility] Last Admin: 07/25/25 08:28 Dose: 324 mg Documented By: JUDI Fluticasone Propionate (Fluticasone Propionate Nasal 16 Gm [place]) 1 spray NOSTRIL-B BID PRN PRN Reason: Nasal Congestion Last Admin: 07/20/25 11:43 Dose: 1 spray Documented By: SHEY Guaifenesin/Dextromethorphan (Guaifenesin Dm 100/10/5 Ml 5 Ml Syrup) 10 ml PO QID PRN PRN Reason: Cough Levothyroxine Sodium (Levothyroxine Sodium 200 Mcg Tablet) 200 mcg PO 0630 [facility] Last Admin: 07/25/25 05:33 Dose: 200 mcg Documented By: VINEET Loratadine (Loratadine 10 Mg Tablet) 10 mg PO DAILY [facility] Last Admin: 07/25/25 08:28 Dose: 10 mg Documented By: JUDI Magnesium Hydroxide (Milk Of Magnesia 30 Ml Oral.Susp) 30 ml PO DAILY PRN PRN Reason: Constipation Melatonin (Melatonin 3 Mg Tablet) 6 mg PO BEDTIME [facility] Memantine (Memantine Hcl 5 Mg Tablet) 5 mg PO BID [facility] Last Admin: 07/25/25 08:28 Dose: 5 mg Documented By: JUDI Multivitamins/Vitamin C (Multivitamin Tablet) 1 tab PO DAILY [facility] Last Admin: 07/25/25 08:28 Dose: 1 tab Documented By: JUDI Non-Formulary Medication (Vibegron [Gemtesa]) 75 mg PO DAILY [facility] Last Admin: 07/25/25 08:32 Dose: 75 mg Documented By: JUDI Nystatin (Nystatin Powder 15 Gm Bottle) 1 appl TOPICAL BID PRN; Protocol PRN Reason: Rash Olanzapine (Olanzapine 10 Mg Tablet) 10 mg PO TID [facility] Last Admin: 07/25/25 14:44 Dose: 10 mg Documented By: JUDI Quetiapine Fumarate (Quetiapine Fumarate 100 Mg Tablet) 100 mg PO BID [facility] Last Admin: 07/25/25 08:27 Dose: 100 mg Documented By: JUDI Quetiapine Fumarate (Quetiapine Fumarate 50 Mg Tablet) 50 mg PO BEDTIME [facility] Last Admin: 07/24/25 20:39 Dose: 50 mg Documented By: VINEET Quetiapine Fumarate (Quetiapine Fumarate 50 Mg Tablet) 50 mg PO BID PRN PRN Reason: severe agitation Senna (Sennosides 8.6 Mg Tablet) 8.6 mg PO Q48H [facility] Last Admin: 07/25/25 08:27 Dose: 8.6 mg Documented By: JUDI Sertraline HCl (Sertraline Hcl 50 Mg Tablet) 50 mg PO DAILY [facility] Last Admin: 07/25/25 08:28 Dose: 50 mg Documented By: JUDI Tamsulosin HCl (Tamsulosin Hcl 0.4 Mg Capsule) 0.4 mg PO DAILY [facility] Last Admin: 07/25/25 08:28 Dose: 0.4 mg Documented By: JUDI Trazodone HCl (Trazodone Hcl 50 Mg Tablet) 150 mg PO BEDTIME [facility] Last Admin: 07/24/25 20:40 Dose: 150 mg Documented By: VINEET Triamcinolone Acetonide (Triamcinolone Acet 0.1 % Oint 15 Gm Tube) 1 appl TOPICAL BID PRN PRN Reason: Skin Irritation Labs 06/19/25 17:56 07/16/25 11:17 Assessment and Plan (1) Post-surgical hypothyroidism: Status: Acute (2) New abnormality on chest x-ray: Status: Acute Plan 69-year-old female with past medical history as listed above admitted to [facility] for mood stabilization after presenting with aggressive behavior, refusal of meds. Dementia with behavioral disturbances/bipolar disorder/anxiety Treatment per psychiatric team Cardiomegaly/cough/Abnormal chest x-ray Chest x-ray repeated today with concerning acute airspace disease right middle lung and right lower lung base Echo with normal LV systolic function, EF 62%, no obvious valvular pathology Low-grade temp noted 99.7. No significant hypoxia. No tachycardia Will start Augmentin and Zithromax Viral swab to rule out flu COVID and RSV Continue to monitor Iron deficiency anemia Continue iron 3 times weekly Hypothyroidism/Status post thyroid removal Decrease levothyroxine 175 mcg daily due to Low TSH 0.07 on 07/16/2025 Repeat level in 4-6 weeks Frequent UTIs/OAB Continue vitamin-C, Flomax, Gemtesa Recently treated for UTI 06/16- Avoid obtaining urine cultures unless patient displays symptoms specifically localize to urinary tract, evidence of infection including fever, tachycardia, symptoms of UTI. Dementia Continue Namenda and Aricept. Melatonin at bedtime Thank you for allowing me to participate in the care of this patient. Will follow as needed, please notify medical provider with any changes in condition or concerns. Quality Stroke Does the patient have a stroke diagnosis?: No VTE Prior VTE?: No VTE Risk Level:: Medical - low VTE Device Contraindication: Treatment Not Indicated VTE Drug Contraindication: Treatment Not Indicated
[2025-07-25 20:00] VITALS: BP 117/68; PULSE 68; RESP 16; TEMP 36.6; O2SAT 95
[2025-07-25 22:14] LABS: Resp Syncy Virus RNA Qual PCR NEGATIVE (Negative); SARS COV2 PCR INHOUSE NEGATIVE (Negative)
[2025-07-26 07:58] VITALS: BP 124/60; PULSE 78; RESP 16; TEMP 37; O2SAT 98
[2025-07-26] MEDS: Aspirin Enteric Coated 81 MG TABLET.DR PO (08:21)
--- NOTE | 2025-07-26 13:42 | HO.PSYCHPN ---
Subjective Subjective Date of Service: 07/26/25 Reason For Visit: Combative Behaviors Interim History: Patient is doing well. No concerns. Improving.Calm and cooperative. No agitated episodes. No SI/HI/AVH. Review of Systems Review of Systems Denies any shortness of breath, chest pain, headaches, dysuria, abdominal pain or discomfort, nausea, vomiting or diarrhea. Denies fever or chills. Yes all other systems are reviewed and are negative, Unobtainable due to mental condition and Unobtainable due to mental status Mental Status Exam Mental Status Exam Narrative: Appearance: Casually dressed, adequate hygiene Behavior: Calm and cooperative throughout the interview. Eye contact is appropriate, and there are no signs of psychomotor agitation or retardation Speech: Normal volume and prosody Thought process: Logical and goal-directed Thought content: Wants to return to [facility] Mood: Good , quiet and tired Affect: Mood-congruent SI:denies HI:denies VH/AH:none Delusions: None Insight/judgment: Fair insight and judgment Memory/cog: Alert and oriented to person and place Patient Appearance: Appropriate Patient Orientation: Person and Place Level of Consciousness: Awake Patient Behavior: Restless, Wandering, Resistive to Care and Combative (mildly today) Behavior Comments: less swearing, less yelling- Mood Description: Angry Affect Description: Blunted Patient Cognition Impaired: Yes Ability to Follow Directions: Fair Speech Pattern: Garbled (I think this is pt baseline speech, ) Diagnostics Vital Signs (24Hr): Vital Signs - 24 hr 07/25/25 20:00 07/26/25 07:58 Temperature 98 F 98.6 F Pulse Rate 68 78 Respiratory Rate 16 16 Blood Pressure 117/68 124/60 Pulse Oximetry 95 98 Oxygen Delivery Method Room Air Room Air BMI result Body Mass Index 28.0 Labs 06/19/25 17:56 07/16/25 11:17 Labs: Laboratory Results - last 48 hr 07/25/25 21:05 Influenza Type A (PCR) NEGATIVE Influenza Type B (PCR) NEGATIVE RSV RNA Qual (PCR) NEGATIVE SARS-CoV-2 RNA (RT-PCR) NEGATIVE Imaging Radiology Impressions: ITS Impressions Chest X-Ray 07/02/25 15:14 IMPRESSION: Concerning interstitial lung edema. Questionable airspace disease, left lower lung lobe. Electronically signed by: Srinivasan Baron MD 07/02/2025 03:30 PM EDT RP Chest X-Ray 07/23/25 10:34 IMPRESSION: No acute airspace disease. Resolved. Electronically signed by: Srinivasan Baron MD 07/23/2025 10:40 AM EDT RP Chest X-Ray 07/24/25 08:15 IMPRESSION: Concerning acute airspace disease, right middle lung lobe/right lower lung base. Electronically signed by: Srinivasan Baron MD 07/24/2025 08:23 AM EDT RP Chest CT 07/25/25 15:52 IMPRESSION: Limited exam due to respiratory motion artifact. Subsegmental atelectasis or small infiltrate in the left lower lobe. Trace left pleural effusion. Question mosaic attenuation in the lungs, greatest in the bilateral upper lobes. Enlarged heart and trace pericardial effusion. Prominent pulmonary arteries, main pulmonary artery measuring 3.6 cm. Question circumferential wall thickening of the proximal thoracic esophagus. No mediastinal fluid or air. Electronically signed by: Niharika Wade MD 07/25/2025 04:27 PM EDT RP Medications Medications Current Medications Acetaminophen (Acetaminophen 325 Mg Tablet) 650 mg PO Q4H PRN PRN Reason: Pain Last Admin: 07/23/25 21:44 Dose: 650 mg Al Hydroxide/Mg Hydroxide (Magnesium Hydrox/Alum Hydrox 30 Ml Oral.Susp) 30 ml PO Q6H PRN PRN Reason: Heartburn/Nausea Amoxicillin/Clavulanate Potassium (Amoxicillin/Potassium Clav 875 Mg Tablet) 875 mg PO BID [facility] Last Admin: 07/26/25 08:22 Dose: 875 mg Ascorbic Acid (Ascorbic Acid 500 Mg Tablet) 500 mg PO BID [facility] Last Admin: 07/26/25 08:22 Dose: 500 mg Aspirin (Aspirin Enteric Coated 81 Mg Tablet.Dr) 81 mg PO DAILY [facility] Last Admin: 07/26/25 08:21 Dose: 81 mg Azithromycin (Azithromycin 250 Mg Tablet) 250 mg PO Q24H [facility] Stop: 07/30/25 15:59 Betamethasone Dipropion Augmented (Betamethasone Dip Aug 0.05% Cr 15 Gm Tube) 1 appl TOPICAL BID PRN PRN Reason: Dry areas on hand Last Admin: 07/12/25 10:02 Dose: 1 appl Diazepam (Diazepam 2 Mg Tablet) 2 mg PO BID [facility] Last Admin: 07/26/25 08:22 Dose: 2 mg Divalproex Sodium (Divalproex Sodium 250 Mg Tablet.) 250 mg PO BID [facility] Last Admin: 07/26/25 08:21 Dose: 250 mg Docusate Sodium (Docusate Sodium 100 Mg Capsule) 100 mg PO BID [facility] Last Admin: 07/26/25 08:22 Dose: 100 mg Donepezil HCl (Donepezil Hcl 5 Mg Tablet) 5 mg PO BEDTIME [facility] Last Admin: 07/25/25 20:58 Dose: 5 mg Ferrous Sulfate (Ferrous Sulfate 324 Mg Tablet.) 324 mg PO MOWEFR@0900 [facility] Last Admin: 07/25/25 08:28 Dose: 324 mg Fluticasone Propionate (Fluticasone Propionate Nasal 16 Gm [place]) 1 spray NOSTRIL-B BID PRN PRN Reason: Nasal Congestion Last Admin: 07/20/25 11:43 Dose: 1 spray Guaifenesin/Dextromethorphan (Guaifenesin Dm 100/10/5 Ml 5 Ml Syrup) 10 ml PO QID PRN PRN Reason: Cough Levothyroxine Sodium (Levothyroxine Sodium 175 Mcg Tablet) 175 mcg PO DAILY@0630 [facility] Last Admin: 07/26/25 06:15 Dose: 175 mcg Loratadine (Loratadine 10 Mg Tablet) 10 mg PO DAILY [facility] Last Admin: 07/26/25 08:22 Dose: 10 mg Magnesium Hydroxide (Milk Of Magnesia 30 Ml Oral.Susp) 30 ml PO DAILY PRN PRN Reason: Constipation Melatonin (Melatonin 3 Mg Tablet) 6 mg PO BEDTIME [facility] Last Admin: 07/25/25 20:56 Dose: 6 mg Memantine (Memantine Hcl 5 Mg Tablet) 5 mg PO BID [facility] Last Admin: 07/26/25 08:22 Dose: 5 mg Multivitamins/Vitamin C (Multivitamin Tablet) 1 tab PO DAILY [facility] Last Admin: 07/26/25 08:21 Dose: 1 tab Non-Formulary Medication (Vibegron [Gemtesa]) 75 mg PO DAILY [facility] Last Admin: 07/26/25 08:26 Dose: 75 mg Nystatin (Nystatin Powder 15 Gm Bottle) 1 appl TOPICAL BID PRN; Protocol PRN Reason: Rash Olanzapine (Olanzapine 10 Mg Tablet) 10 mg PO TID [facility] Last Admin: 07/26/25 08:22 Dose: 10 mg Quetiapine Fumarate (Quetiapine Fumarate 100 Mg Tablet) 100 mg PO BID [facility] Last Admin: 07/26/25 08:21 Dose: 100 mg Quetiapine Fumarate (Quetiapine Fumarate 50 Mg Tablet) 50 mg PO BEDTIME [facility] Last Admin: 07/25/25 20:56 Dose: 50 mg Quetiapine Fumarate (Quetiapine Fumarate 50 Mg Tablet) 50 mg PO BID PRN PRN Reason: severe agitation Senna (Sennosides 8.6 Mg Tablet) 8.6 mg PO Q48H [facility] Last Admin: 07/25/25 08:27 Dose: 8.6 mg Sertraline HCl (Sertraline Hcl 50 Mg Tablet) 50 mg PO DAILY [facility] Last Admin: 07/26/25 08:21 Dose: 50 mg Tamsulosin HCl (Tamsulosin Hcl 0.4 Mg Capsule) 0.4 mg PO DAILY [facility] Last Admin: 07/26/25 08:22 Dose: 0.4 mg Trazodone HCl (Trazodone Hcl 50 Mg Tablet) 150 mg PO BEDTIME [facility] Last Admin: 07/25/25 20:57 Dose: 150 mg Triamcinolone Acetonide (Triamcinolone Acet 0.1 % Oint 15 Gm Tube) 1 appl TOPICAL BID PRN PRN Reason: Skin Irritation Allergies Allergies Allergy/AdvReac Type Severity Reaction Status Date / Time adhesive tape Allergy Intermediate itching Verified 06/19/25 16:08 and skin redness latex Allergy Intermediate skin rash Verified 06/19/25 16:08 and itching Seasonal Allergies Allergy Itching Verified 06/19/25 16:08 weed pollen Allergy stuffy nose Verified 06/19/25 16:08 DUST Allergy Unknown ITCHY/WATERY Uncoded 06/19/25 16:08 EYES surgical paper tape Allergy Unknown rash Uncoded 06/19/25 16:08 Tide Allergy Unknown rash Uncoded 06/19/25 16:08 Assessment & Plan Assessment & Plan (1) Post-surgical hypothyroidism: Status: Acute Code(s): E89.0 - Postprocedural hypothyroidism (2) New abnormality on chest x-ray: Status: Acute Code(s): R93.89 - Abnormal findings on diagnostic imaging of other specified body structures (3) Mood disorder: Status: Acute Code(s): F39 - Unspecified mood [affective] disorder Assessment and Plan: (1) Major neurocognitive disorder due to vascular disease, with behavioral disturbance, severe: Status: Acute Code(s): F01.C18 - Vascular dementia, severe, with other behavioral disturbance (2) Developmental delay, moderate: Status: Deleted Code(s): R62.50 - Unspecified lack of expected normal physiological development in childhood Plan Plan Ms. Ronquillo is a 69 year-old woman with hx of developmental delay, vascular dementia who was brought via EMS due to increase aggression. Medical work up mostly unremarkable, except for TSH 22, free T4 1.22. She is on levothyroxine, unclear if taking it as prescribed. This web content writer spoke with pt's psychiatric provider, Tammy Randall who reports she has been adjusting dose of seroquel. She has been on carbamazepine for a long time for mood stabilization- will check level. Will add diazepam for impulsive/explosive behaviors. PLAN 1. Admit to S1, on Close observation for aggressive behaviors. 2. will switch carbamazepine to depakote- as carbamazepine may be interacting with other medications and may not be as effective managing impulsive/explosive behaviors. Depakote may activate patient and make her more aggressive. Taper down. 3. continue for now seroquel and Zyrepxa, but may consider changing antipsychotic medication as well. 4. obtain collateral information 5. aftercare planning. 07/16/25: TSH 0.07. VPA level 41.5. Total protein 6.0. Albumin 2.9. BUN 22. Ammonia level 38. / continue to present as agitated, combative. increase depakote to 500mg po BID. continue seroquel for now but may also consider switching antipsychotics as well. 06/26 continue tx. 06/27 continue current medications, will check depakote level on Monday. 06/28 added olanzapine 10mg at night- I see she has seroquel but seems like not adequate and depakote not making substantial gain as yet olanzapine can be discontinued after more stable on depakote- 06/29 CTP- 06/30 check depakote level tomorrow AM. Will decrease seroquel to 100mg po BID, continue seroquel 200mg po at noon. Increase olazapine to 10mg po BID. plan to cross taper to olanzapine. May add sertraline as antidepressant. 07/01 will increase olanzapine to 10mg po TID, will continue current decreased dose of seroquel for now. continue depakote 500mg po BID- will adjust dose as we get levels. no signs of increase ammonia. 07/02 continue tx. febrile, no SOB. seen by hospitalist. chest xr showed interstitial edema- consult to pulmonology. 07/03 started on doxycycline by aviation maintenance technician. refused echo but will attempt tomorrow. 07/04 continue tx. 07/08- increase valium 10mg po TID, continue olanzapine, depakote 750mg po BID. increase agitation today. 07/09 continue tx. 07/10 continue tx. 07/11 continue tx. but may need to revisit overall treatment. 07/12: Continue current regimen and plans 07/13: Continue current regimen and plans 07/14: Continue current regimen and plans. 07/15 increasingly more agitated, sleep reversal which may be concerning for increase ammonia combine with increase agitation. will decrease depakote, add lactulose, since can't check ammonia she refuses and very agitated. not responding to medications. 07/16/25: Meet with patient in her room after lunch. Engaged with eye closed. Denies pain, depression or anxiety. Denies hallucinations. Patient is sedated and mostly sleeping this morning. Slept for 4 hours last night but was back to bed after 5 AM. Patient had lab drawn this morning but refuse to give urine sample to rule out any UTI as per nursing staff, patient got worse the past week, been refused labs, was agitated, abusive, and aggressive yesterday. Got PRN meds with mild to moderate effects. Patient is up, took AM meds late, ate 100% for lunch and back to bed again. Not swearing and yelling loudly compared to yesterday. Zyprexa, Valium, and Seroquel scheduled held in the AM and at 1500 d/t sedation. In better behavior control. Hospital consult placed d/t Low TSH 0.07. Remain on Close Obs for agitation/aggressive behaviors. 07/17/25: Patient slept for 4 hours last night. Received extra medication on overnight (zyprexa 10 and Valium 10 x1 dose), appear calm, more quiet, shower, up, and out to dining area for breakfast and lunch. Ate well at breakfast but not much for lunch. She says I want to go home and Ill try when asked if she can give urine sample. Denies pain, denies safety concerns i want to go home . Per nursing, patient had two large BM last night, some incontinence on night. Got to showered after breakfast. No foul swearing or minimal of swearing. Will discontinue Lactulose. VPA low but WNL, Ammonia WNL. Seen by hospitalist: Levothyroxine from 225 to 200mcg d/t low TSH. Recheck in 4-6 weeks. Pending U/A: collecting sample. 07/18/25:Patient slept through the night, compliant with medicationsy, but medications occasionally get held as patient was slept through the scheduled meds. Was given Seroquel p.r.n. around 05:00 this morning, therefore patient slept until almost 10 30 this morning. Ate some snacks, hang out in dining room, calm cooperative, and apologized for her behavior for yelling out loud at staff when she was in her room. \ Patient is much calmer, even though she had moment of yelling swearing at staff with foul language but seem improving in agitation. Patient expressed that she wanted to go home, and asked when she can go home. UA was negative. U/A: some abnormality but no UTI- pending culture 07/19/25: Patient slept for 8 hours, compliant with medications. Visible and appropriate in common areas, ambulate using the walker. She is much calmer, nicer and not swearing at peers or staff. Reported that someone told her that she is living on Monday. She is aware that today is Monday I am going home on Monday . Some incontinence issues at night, but using the bathroom when she needs to during daytime. Approachable, happy affect, aware of surrounding. Continued to improve. No UTI. Culture result WNL. Will increase Seroquel at night up to 150mg start 07/20. 07/20/25:Patient slept for 7-8 hours last night, compliant with medications, remain calm, visible in common area, pleasant and cooperative upon approach. Incontinence issues with urine today, ambulate using the walker, some mild drooling observed when sitting at a table falling asleep. Denies safety concerns. Continued to improve in mood. No yelling. Reduced Valium from 10mg TID down to BID 07/21/25: Patient slept well at night, good appetite, ambulating using walker. No fall. In general calm, pleasant and cooperative. Moments of irritable and frustrated easily when she her requests are not met fast/quick enough. Want to shower during lunch time and wanted to discharge today. Denies pain, able to change clothing herself. Denies SI/SIB/HI/AVH. Continue with Valium taper. SW will contact regarding discharge plan/aftercare plan. 07/22/25: Patient slept for 7 hours, good meal intake. Continued to improve in mood, quiet, calm, pleasant and cooperative. She met with her [facility] staff, spent sometimes in dining room playing cards, ate lunch late. Continued to on benzo taper. Possible discharge next week. cafe worker is in contact with the [facility] staff regarding discharge plan. Valium down from 10mg BID to 5mg BID Reduced PRN Seroquel 100mg BID to 50mg BID. 07/23/25: Calm, pleasant and cooperative. Continue to improve in mood, sleep and appetite. She spent most of morning visible in common areas, coloring and engage in activities. No yelling. No issues with appetite. No safety concerns. Continue to taper down on Valium. Tolerate well with med changes. Less sedated. Possible discharge next week on Monday back to . Ambulate using walker. No falls. 07/24: Continue current treatment regimen. May discharge to [facility] next Monday. 07/25/25: Patient spent most of the morning in room, out for meals and back to bed napping again.She is quiet, calm, and polite upon approach. No cough but has some running nose. No safety concerns. She tolerates well with BZD taper, will continue lower down on Valium and some other medication changes. Ambulate using walker, no fall. Had BM this morning. Appear tired. Valium down to 2mg BID from 5mg BID. Down Melatonin from 9mg to 6mg at HS. Collateral done with hospitalist regarding repeat CXray. Hospitalist contacted [employer]. Result from Cxray on 07/24/25: Concerning acute airspace disease, right middle lung lobe/right lower lung base . Some labs work ordered per hospitalist plan: Covid, BMP, and CBC with diff: pending result. Tentative D/C next week on Monday. 07/26: continue current management and treatment plan. Plan 69-year-old female with past medical history as listed above admitted to [facility] for mood stabilization after presenting with aggressive behavior, refusal of meds. Dementia with behavioral disturbances/bipolar disorder/anxiety Treatment per psychiatric team Cardiomegaly/cough/Abnormal chest x-ray Chest x-ray repeated today with concerning acute airspace disease right middle lung and right lower lung base Echo with normal LV systolic function, EF 62%, no obvious valvular pathology Low-grade temp noted 99.7. No significant hypoxia. No tachycardia Will start Augmentin and Zithromax Viral swab to rule out flu COVID and RSV Continue to monitor Iron deficiency anemia Continue iron 3 times weekly Hypothyroidism/Status post thyroid removal Decrease levothyroxine 175 mcg daily due to Low TSH 0.07 on 07/16/2025 Repeat level in 4-6 weeks Frequent UTIs/OAB Continue vitamin-C, Flomax, Gemtesa Recently treated for UTI 06/16- Avoid obtaining urine cultures unless patient displays symptoms specifically localize to urinary tract, evidence of infection including fever, tachycardia, symptoms of UTI. Dementia Continue Namenda and Aricept. Melatonin at bedtime Thank you for allowing me to participate in the care of this patient. Will follow as needed, please notify medical provider with any changes in condition or concerns. Reason for continued inpatient stay Substantial Risk for: inability to function, rapid decompensation and med/psych decompensation Time Spent With Patient Time: Total time managing care of this patient today ____ minutes.
[2025-07-26 20:00] VITALS: BP 128/56; PULSE 65; RESP 16; TEMP 36.4; O2SAT 94
[2025-07-27 08:00] VITALS: BP 146/73; PULSE 60; RESP 18; TEMP 36.6; O2SAT 98
[2025-07-27] MEDS: Aspirin Enteric Coated 81 MG TABLET.DR PO (08:21)
--- NOTE | 2025-07-27 09:42 | HO.PSYCHPN ---
Subjective Subjective Date of Service: 07/27/25 Reason For Visit: Combative Behaviors Interim History: Patient reports I feel good I would like to go home. She reports no side effects with medications. Compliant with care. Pleasant. Eating is good. No concerns. Improving. Calm and cooperative. No agitated episodes. No SI/HI/AVH. Review of Systems Review of Systems Denies any shortness of breath, chest pain, headaches, dysuria, abdominal pain or discomfort, nausea, vomiting or diarrhea. Denies fever or chills. Yes all other systems are reviewed and are negative, Unobtainable due to mental condition and Unobtainable due to mental status Mental Status Exam Mental Status Exam Narrative: Appearance: Casually dressed, adequate hygiene Behavior: Calm and cooperative throughout the interview. Eye contact is appropriate, and there are no signs of psychomotor agitation or retardation Speech: Normal volume and prosody Thought process: Logical and goal-directed Thought content: Wants to return to long-term Mood: Good , quiet and tired Affect: Mood-congruent SI:denies HI:denies VH/AH:none Delusions: None Insight/judgment: Fair insight and judgment Memory/cog: Alert and oriented to person and place Patient Appearance: Appropriate Patient Orientation: Person and Place Level of Consciousness: Awake Patient Behavior: Restless, Wandering, Resistive to Care and Combative (mildly today) Behavior Comments: less swearing, less yelling- Mood Description: Angry Affect Description: Blunted Patient Cognition Impaired: Yes Ability to Follow Directions: Fair Speech Pattern: Garbled (I think this is pt baseline speech, ) Diagnostics Vital Signs (24Hr): Vital Signs - 24 hr 07/26/25 20:00 07/27/25 08:00 Temperature 97.5 F 97.9 F Pulse Rate 65 60 Respiratory Rate 16 18 Blood Pressure 128/56 L 146/73 H Pulse Oximetry 94 98 Oxygen Delivery Method Room Air Room Air BMI result Body Mass Index 28.0 Labs 06/19/25 17:56 07/16/25 11:17 Labs: Laboratory Results - last 48 hr 07/25/25 21:05 Influenza Type A (PCR) NEGATIVE Influenza Type B (PCR) NEGATIVE RSV RNA Qual (PCR) NEGATIVE SARS-CoV-2 RNA (RT-PCR) NEGATIVE Imaging Radiology Impressions: ITS Impressions Chest X-Ray 07/02/25 15:14 IMPRESSION: Concerning interstitial lung edema. Questionable airspace disease, left lower lung lobe. Electronically signed by: Srinivasan Baron MD 07/02/2025 03:30 PM EDT RP Chest X-Ray 07/23/25 10:34 IMPRESSION: No acute airspace disease. Resolved. Electronically signed by: Srinivasan Baron MD 07/23/2025 10:40 AM EDT RP Chest X-Ray 07/24/25 08:15 IMPRESSION: Concerning acute airspace disease, right middle lung lobe/right lower lung base. Electronically signed by: Srinivasan Baron MD 07/24/2025 08:23 AM EDT RP Chest CT 07/25/25 15:52 IMPRESSION: Limited exam due to respiratory motion artifact. Subsegmental atelectasis or small infiltrate in the left lower lobe. Trace left pleural effusion. Question mosaic attenuation in the lungs, greatest in the bilateral upper lobes. Enlarged heart and trace pericardial effusion. Prominent pulmonary arteries, main pulmonary artery measuring 3.6 cm. Question circumferential wall thickening of the proximal thoracic esophagus. No mediastinal fluid or air. Electronically signed by: Niharika Wade MD 07/25/2025 04:27 PM EDT RP Medications Medications Current Medications Acetaminophen (Acetaminophen 325 Mg Tablet) 650 mg PO Q4H PRN PRN Reason: Pain Last Admin: 07/23/25 21:44 Dose: 650 mg Al Hydroxide/Mg Hydroxide (Magnesium Hydrox/Alum Hydrox 30 Ml Oral.Susp) 30 ml PO Q6H PRN PRN Reason: Heartburn/Nausea Amoxicillin/Clavulanate Potassium (Amoxicillin/Potassium Clav 875 Mg Tablet) 875 mg PO BID [facility] Last Admin: 07/27/25 08:22 Dose: 875 mg Ascorbic Acid (Ascorbic Acid 500 Mg Tablet) 500 mg PO BID [facility] Last Admin: 07/27/25 08:21 Dose: 500 mg Aspirin (Aspirin Enteric Coated 81 Mg Tablet.Dr) 81 mg PO DAILY [facility] Last Admin: 07/27/25 08:21 Dose: 81 mg Azithromycin (Azithromycin 250 Mg Tablet) 250 mg PO Q24H [facility] Stop: 07/30/25 15:59 Last Admin: 07/26/25 15:37 Dose: 250 mg Betamethasone Dipropion Augmented (Betamethasone Dip Aug 0.05% Cr 15 Gm Tube) 1 appl TOPICAL BID PRN PRN Reason: Dry areas on hand Last Admin: 07/12/25 10:02 Dose: 1 appl Diazepam (Diazepam 2 Mg Tablet) 2 mg PO BID [facility] Last Admin: 07/27/25 08:21 Dose: 2 mg Divalproex Sodium (Divalproex Sodium 250 Mg Tablet.) 250 mg PO BID [facility] Last Admin: 07/27/25 08:21 Dose: 250 mg Docusate Sodium (Docusate Sodium 100 Mg Capsule) 100 mg PO BID [facility] Last Admin: 07/27/25 08:22 Dose: 100 mg Donepezil HCl (Donepezil Hcl 5 Mg Tablet) 5 mg PO BEDTIME [facility] Last Admin: 07/26/25 20:29 Dose: 5 mg Ferrous Sulfate (Ferrous Sulfate 324 Mg Tablet.) 324 mg PO MOWEFR@0900 [facility] Last Admin: 07/25/25 08:28 Dose: 324 mg Fluticasone Propionate (Fluticasone Propionate Nasal 16 Gm [place]) 1 spray NOSTRIL-B BID PRN PRN Reason: Nasal Congestion Last Admin: 07/20/25 11:43 Dose: 1 spray Guaifenesin/Dextromethorphan (Guaifenesin Dm 100/10/5 Ml 5 Ml Syrup) 10 ml PO QID PRN PRN Reason: Cough Levothyroxine Sodium (Levothyroxine Sodium 175 Mcg Tablet) 175 mcg PO DAILY@0630 [facility] Last Admin: 07/27/25 06:25 Dose: 175 mcg Loratadine (Loratadine 10 Mg Tablet) 10 mg PO DAILY [facility] Last Admin: 07/27/25 08:22 Dose: 10 mg Magnesium Hydroxide (Milk Of Magnesia 30 Ml Oral.Susp) 30 ml PO DAILY PRN PRN Reason: Constipation Melatonin (Melatonin 3 Mg Tablet) 6 mg PO BEDTIME [facility] Last Admin: 07/26/25 20:28 Dose: 6 mg Memantine (Memantine Hcl 5 Mg Tablet) 5 mg PO BID [facility] Last Admin: 07/27/25 08:22 Dose: 5 mg Multivitamins/Vitamin C (Multivitamin Tablet) 1 tab PO DAILY [facility] Last Admin: 07/27/25 08:21 Dose: 1 tab Non-Formulary Medication (Vibegron [Gemtesa]) 75 mg PO DAILY [facility] Last Admin: 07/27/25 08:22 Dose: 75 mg Nystatin (Nystatin Powder 15 Gm Bottle) 1 appl TOPICAL BID PRN; Protocol PRN Reason: Rash Olanzapine (Olanzapine 10 Mg Tablet) 10 mg PO TID [facility] Last Admin: 07/27/25 08:21 Dose: 10 mg Quetiapine Fumarate (Quetiapine Fumarate 100 Mg Tablet) 100 mg PO BID [facility] Last Admin: 07/27/25 08:21 Dose: 100 mg Quetiapine Fumarate (Quetiapine Fumarate 50 Mg Tablet) 50 mg PO BEDTIME [facility] Last Admin: 07/26/25 20:29 Dose: 50 mg Quetiapine Fumarate (Quetiapine Fumarate 50 Mg Tablet) 50 mg PO BID PRN PRN Reason: severe agitation Senna (Sennosides 8.6 Mg Tablet) 8.6 mg PO Q48H [facility] Last Admin: 07/27/25 08:21 Dose: 8.6 mg Sertraline HCl (Sertraline Hcl 50 Mg Tablet) 50 mg PO DAILY [facility] Last Admin: 07/27/25 08:22 Dose: 50 mg Tamsulosin HCl (Tamsulosin Hcl 0.4 Mg Capsule) 0.4 mg PO DAILY [facility] Last Admin: 07/27/25 08:22 Dose: 0.4 mg Trazodone HCl (Trazodone Hcl 50 Mg Tablet) 150 mg PO BEDTIME [facility] Last Admin: 07/26/25 20:28 Dose: 150 mg Triamcinolone Acetonide (Triamcinolone Acet 0.1 % Oint 15 Gm Tube) 1 appl TOPICAL BID PRN PRN Reason: Skin Irritation Allergies Allergies Allergy/AdvReac Type Severity Reaction Status Date / Time adhesive tape Allergy Intermediate itching Verified 06/19/25 16:08 and skin redness latex Allergy Intermediate skin rash Verified 06/19/25 16:08 and itching Seasonal Allergies Allergy Itching Verified 06/19/25 16:08 weed pollen Allergy stuffy nose Verified 06/19/25 16:08 DUST Allergy Unknown ITCHY/WATERY Uncoded 06/19/25 16:08 EYES surgical paper tape Allergy Unknown rash Uncoded 06/19/25 16:08 Tide Allergy Unknown rash Uncoded 06/19/25 16:08 Assessment & Plan Assessment & Plan (1) Post-surgical hypothyroidism: Status: Acute Code(s): E89.0 - Postprocedural hypothyroidism (2) New abnormality on chest x-ray: Status: Acute Code(s): R93.89 - Abnormal findings on diagnostic imaging of other specified body structures (3) Mood disorder: Status: Acute Code(s): F39 - Unspecified mood [affective] disorder Assessment and Plan: (1) Major neurocognitive disorder due to vascular disease, with behavioral disturbance, severe: Status: Acute Code(s): F01.C18 - Vascular dementia, severe, with other behavioral disturbance (2) Developmental delay, moderate: Status: Deleted Code(s): R62.50 - Unspecified lack of expected normal physiological development in childhood Plan Plan Ms. Ronquillo is a 69 year-old woman with hx of developmental delay, vascular dementia who was brought via EMS due to increase aggression. Medical work up mostly unremarkable, except for TSH 22, free T4 1.22. She is on levothyroxine, unclear if taking it as prescribed. This junior copywriter spoke with pt's psychiatric provider, Tammy Randall who reports she has been adjusting dose of seroquel. She has been on carbamazepine for a long time for mood stabilization- will check level. Will add diazepam for impulsive/explosive behaviors. PLAN 1. Admit to S1, on Close observation for aggressive behaviors. 2. will switch carbamazepine to depakote- as carbamazepine may be interacting with other medications and may not be as effective managing impulsive/explosive behaviors. Depakote may activate patient and make her more aggressive. Taper down. 3. continue for now seroquel and Zyrepxa, but may consider changing antipsychotic medication as well. 4. obtain collateral information 5. aftercare planning. 07/16/25: TSH 0.07. VPA level 41.5. Total protein 6.0. Albumin 2.9. BUN 22. Ammonia level 38. / continue to present as agitated, combative. increase depakote to 500mg po BID. continue seroquel for now but may also consider switching antipsychotics as well. 06/26 continue tx. 06/27 continue current medications, will check depakote level on Monday. 06/28 added olanzapine 10mg at night- I see she has seroquel but seems like not adequate and depakote not making substantial gain as yet olanzapine can be discontinued after more stable on depakote- 06/29 CTP- 06/30 check depakote level tomorrow AM. Will decrease seroquel to 100mg po BID, continue seroquel 200mg po at noon. Increase olazapine to 10mg po BID. plan to cross taper to olanzapine. May add sertraline as antidepressant. 07/01 will increase olanzapine to 10mg po TID, will continue current decreased dose of seroquel for now. continue depakote 500mg po BID- will adjust dose as we get levels. no signs of increase ammonia. 07/02 continue tx. febrile, no SOB. seen by hospitalist. chest xr showed interstitial edema- consult to pulmonology. 07/03 started on doxycycline by biological inspector. refused echo but will attempt tomorrow. 07/04 continue tx. 07/08- increase valium 10mg po TID, continue olanzapine, depakote 750mg po BID. increase agitation today. 07/09 continue tx. 07/10 continue tx. 07/11 continue tx. but may need to revisit overall treatment. 07/12: Continue current regimen and plans 07/13: Continue current regimen and plans 07/14: Continue current regimen and plans. 07/15 increasingly more agitated, sleep reversal which may be concerning for increase ammonia combine with increase agitation. will decrease depakote, add lactulose, since can't check ammonia she refuses and very agitated. not responding to medications. 07/16/25: Meet with patient in her room after lunch. Engaged with eye closed. Denies pain, depression or anxiety. Denies hallucinations. Patient is sedated and mostly sleeping this morning. Slept for 4 hours last night but was back to bed after 5 AM. Patient had lab drawn this morning but refuse to give urine sample to rule out any UTI as per nursing staff, patient got worse the past week, been refused labs, was agitated, abusive, and aggressive yesterday. Got PRN meds with mild to moderate effects. Patient is up, took AM meds late, ate 100% for lunch and back to bed again. Not swearing and yelling loudly compared to yesterday. Zyprexa, Valium, and Seroquel scheduled held in the AM and at 1500 d/t sedation. In better behavior control. Hospital consult placed d/t Low TSH 0.07. Remain on Close Obs for agitation/aggressive behaviors. 07/17/25: Patient slept for 4 hours last night. Received extra medication on overnight (zyprexa 10 and Valium 10 x1 dose), appear calm, more quiet, shower, up, and out to dining area for breakfast and lunch. Ate well at breakfast but not much for lunch. She says I want to go home and Ill try when asked if she can give urine sample. Denies pain, denies safety concerns i want to go home . Per nursing, patient had two large BM last night, some incontinence on night. Got to showered after breakfast. No foul swearing or minimal of swearing. Will discontinue Lactulose. VPA low but WNL, Ammonia WNL. Seen by hospitalist: Levothyroxine from 225 to 200mcg d/t low TSH. Recheck in 4-6 weeks. Pending U/A: collecting sample. 07/18/25:Patient slept through the night, compliant with medicationsy, but medications occasionally get held as patient was slept through the scheduled meds. Was given Seroquel p.r.n. around 05:00 this morning, therefore patient slept until almost 10 30 this morning. Ate some snacks, hang out in dining room, calm cooperative, and apologized for her behavior for yelling out loud at staff when she was in her room. \ Patient is much calmer, even though she had moment of yelling swearing at staff with foul language but seem improving in agitation. Patient expressed that she wanted to go home, and asked when she can go home. UA was negative. U/A: some abnormality but no UTI- pending culture 07/19/25: Patient slept for 8 hours, compliant with medications. Visible and appropriate in common areas, ambulate using the walker. She is much calmer, nicer and not swearing at peers or staff. Reported that someone told her that she is living on Monday. She is aware that today is Monday I am going home on Monday . Some incontinence issues at night, but using the bathroom when she needs to during daytime. Approachable, happy affect, aware of surrounding. Continued to improve. No UTI. Culture result WNL. Will increase Seroquel at night up to 150mg start 07/20. 07/20/25:Patient slept for 7-8 hours last night, compliant with medications, remain calm, visible in common area, pleasant and cooperative upon approach. Incontinence issues with urine today, ambulate using the walker, some mild drooling observed when sitting at a table falling asleep. Denies safety concerns. Continued to improve in mood. No yelling. Reduced Valium from 10mg TID down to BID 07/21/25: Patient slept well at night, good appetite, ambulating using walker. No fall. In general calm, pleasant and cooperative. Moments of irritable and frustrated easily when she her requests are not met fast/quick enough. Want to shower during lunch time and wanted to discharge today. Denies pain, able to change clothing herself. Denies SI/SIB/HI/AVH. Continue with Valium taper. SW will contact regarding discharge plan/aftercare plan. 07/22/25: Patient slept for 7 hours, good meal intake. Continued to improve in mood, quiet, calm, pleasant and cooperative. She met with her long-term staff, spent sometimes in dining room playing cards, ate lunch late. Continued to on benzo taper. Possible discharge next week. automotive production worker is in contact with the long-term staff regarding discharge plan. Valium down from 10mg BID to 5mg BID Reduced PRN Seroquel 100mg BID to 50mg BID. 07/23/25: Calm, pleasant and cooperative. Continue to improve in mood, sleep and appetite. She spent most of morning visible in common areas, coloring and engage in activities. No yelling. No issues with appetite. No safety concerns. Continue to taper down on Valium. Tolerate well with med changes. Less sedated. Possible discharge next week on Monday back to . Ambulate using walker. No falls. 07/24: Continue current treatment regimen. May discharge to long-term next Monday. 07/25/25: Patient spent most of the morning in room, out for meals and back to bed napping again.She is quiet, calm, and polite upon approach. No cough but has some running nose. No safety concerns. She tolerates well with BZD taper, will continue lower down on Valium and some other medication changes. Ambulate using walker, no fall. Had BM this morning. Appear tired. Valium down to 2mg BID from 5mg BID. Down Melatonin from 9mg to 6mg at HS. Collateral done with hospitalist regarding repeat CXray. Hospitalist contacted [employer] Up [employer]. Result from Cxray on 07/24/25: Concerning acute airspace disease, right middle lung lobe/right lower lung base . Some labs work ordered per hospitalist plan: Covid, BMP, and CBC with diff: pending result. Tentative D/C next week on Monday. 07/26: continue current management and treatment plan. 07/27: continue current management and treatment plan. Discharge per primary team. Plan 69-year-old female with past medical history as listed above admitted to [facility] for mood stabilization after presenting with aggressive behavior, refusal of meds. Dementia with behavioral disturbances/bipolar disorder/anxiety Treatment per psychiatric team Cardiomegaly/cough/Abnormal chest x-ray Chest x-ray repeated today with concerning acute airspace disease right middle lung and right lower lung base Echo with normal LV systolic function, EF 62%, no obvious valvular pathology Low-grade temp noted 99.7. No significant hypoxia. No tachycardia Will start Augmentin and Zithromax Viral swab to rule out flu COVID and RSV Continue to monitor Iron deficiency anemia Continue iron 3 times weekly Hypothyroidism/Status post thyroid removal Decrease levothyroxine 175 mcg daily due to Low TSH 0.07 on 07/16/2025 Repeat level in 4-6 weeks Frequent UTIs/OAB Continue vitamin-C, Flomax, Gemtesa Recently treated for UTI 06/16- Avoid obtaining urine cultures unless patient displays symptoms specifically localize to urinary tract, evidence of infection including fever, tachycardia, symptoms of UTI. Dementia Continue Namenda and Aricept. Melatonin at bedtime Thank you for allowing me to participate in the care of this patient. Will follow as needed, please notify medical provider with any changes in condition or concerns. Reason for continued inpatient stay Substantial Risk for: inability to function and rapid decompensation Time Spent With Patient Time: Total time managing care of this patient today ____ minutes.
[2025-07-27 20:00] VITALS: BP 118/56; PULSE 68; RESP 18; TEMP 36.4; O2SAT 94
[2025-07-28 08:08] VITALS: BP 142/78; PULSE 64; RESP 18; TEMP 36.8; O2SAT 97
[2025-07-28] MEDS: Aspirin Enteric Coated 81 MG TABLET.DR PO (08:14)
[2025-07-28] MEDS: Ferrous Sulfate 324 MG TABLET.DR PO (08:14)
--- NOTE | 2025-07-28 11:21 | HO.PSYCHPN ---
Subjective Subjective Date of Service: 07/28/25 Reason For Visit: Combative Behaviors Subjective Notes: Conditional Voluntary Medical Problems Affecting Mental Status: No Interim History: Medical record and nursing notes reviewed; case discussed during rounds with team/nursing staff, and met with patient for supportive therapy/psychoeducation, as well as medication management. Patient slept for 8 hours, more isolated over the weekends in room, but no behavior issues. Patient was out for meals and visible for awhile before lunch. Back to bed resting after lunch, denies side effects from medication. Reports she feel a little bit tired but I am good. I want to go home. I miss [facility] staff. Reports dry cough but not severe. Denies headache/pain/chest pain. Reports little bit loose stool but not concerns. Mi running nose reports, not observe at the assessment time. facilities maintenance worker and this provider working on discharge medication list that long term request. This provider also working on sending medication to preferred pharmacy. No safety concerns. Patient continues with [facility] for resporatory treatment. CT scan of the chest done over the weekends, unremarkable d/t abnormal FLU chest xray done on 07/24/25. Medication Compliance: Yes Side effects from medications: No Attending Groups: Intermittent Review of Systems Acute medical concerns: No Medical Review of Systems: unchanged Review of Systems Review of Systems Denies any shortness of breath, chest pain, headaches, dysuria, abdominal pain or discomfort, nausea, vomiting or diarrhea. Denies fever or chills. Mild dry cough and running nose which were not observed during assessment. Yes all other systems are reviewed and are negative Mental Status Exam Mental Status Exam Narrative: Appearance: Casually dressed, adequate hygiene Behavior: Calm and cooperative throughout the interview. Eye contact is appropriate, and there are no signs of psychomotor agitation or retardation Speech: Normal volume and prosody Thought process: Logical and goal-directed Thought content: Wants to return to long term Mood: Good , quiet, calm, denies depression or anxiety. Affect: Mood-congruent SI:denies HI:denies VH/AH:none Delusions: None Insight/judgment: Fair insight and judgment Memory/cog: Alert and oriented to person and place Diagnostics Vital Signs (24Hr): Vital Signs - 24 hr 07/27/25 20:00 07/28/25 08:08 Temperature 97.5 F 98.2 F Pulse Rate 68 64 Respiratory Rate 48 H 18 Blood Pressure 118/56 L 142/78 H Pulse Oximetry 94 97 Oxygen Delivery Method Room Air Room Air BMI result Body Mass Index 28.0 Labs 06/19/25 17:56 07/16/25 11:17 Imaging Radiology Impressions: ITS Impressions Chest X-Ray 07/02/25 15:14 IMPRESSION: Concerning interstitial lung edema. Questionable airspace disease, left lower lung lobe. Electronically signed by: Srinivasan Baron MD 07/02/2025 03:30 PM EDT RP Chest X-Ray 07/23/25 10:34 IMPRESSION: No acute airspace disease. Resolved. Electronically signed by: Srinivasan Baron MD 07/23/2025 10:40 AM EDT RP Chest X-Ray 07/24/25 08:15 IMPRESSION: Concerning acute airspace disease, right middle lung lobe/right lower lung base. Electronically signed by: Srinivasan Baron MD 07/24/2025 08:23 AM EDT RP Chest CT 07/25/25 15:52 IMPRESSION: Limited exam due to respiratory motion artifact. Subsegmental atelectasis or small infiltrate in the left lower lobe. Trace left pleural effusion. Question mosaic attenuation in the lungs, greatest in the bilateral upper lobes. Enlarged heart and trace pericardial effusion. Prominent pulmonary arteries, main pulmonary artery measuring 3.6 cm. Question circumferential wall thickening of the proximal thoracic esophagus. No mediastinal fluid or air. Electronically signed by: Niharika Wade MD 07/25/2025 04:27 PM EDT RP Medications Medications Current Medications Acetaminophen (Acetaminophen 325 Mg Tablet) 650 mg PO Q4H PRN PRN Reason: Pain Last Admin: 07/23/25 21:44 Dose: 650 mg Al Hydroxide/Mg Hydroxide (Magnesium Hydrox/Alum Hydrox 30 Ml Oral.Susp) 30 ml PO Q6H PRN PRN Reason: Heartburn/Nausea Amoxicillin/Clavulanate Potassium (Amoxicillin/Potassium Clav 875 Mg Tablet) 875 mg PO BID [facility] Last Admin: 07/28/25 08:14 Dose: 875 mg Ascorbic Acid (Ascorbic Acid 500 Mg Tablet) 500 mg PO BID [facility] Last Admin: 07/28/25 08:14 Dose: 500 mg Aspirin (Aspirin Enteric Coated 81 Mg Tablet.) 81 mg PO DAILY [facility] Last Admin: 07/28/25 08:14 Dose: 81 mg Azithromycin (Azithromycin 250 Mg Tablet) 250 mg PO Q24H [facility] Stop: 07/30/25 15:59 Last Admin: 07/27/25 15:32 Dose: 250 mg Betamethasone Dipropion Augmented (Betamethasone Dip Aug 0.05% Cr 15 Gm Tube) 1 appl TOPICAL BID PRN PRN Reason: Dry areas on hand Last Admin: 07/12/25 10:02 Dose: 1 appl Diazepam (Diazepam 2 Mg Tablet) 2 mg PO BID [facility] Last Admin: 07/28/25 08:14 Dose: 2 mg Divalproex Sodium (Divalproex Sodium 250 Mg Tablet.) 250 mg PO BID [facility] Last Admin: 07/28/25 08:14 Dose: 250 mg Docusate Sodium (Docusate Sodium 100 Mg Capsule) 100 mg PO BID [facility] Last Admin: 07/28/25 08:14 Dose: 100 mg Donepezil HCl (Donepezil Hcl 5 Mg Tablet) 5 mg PO BEDTIME [facility] Last Admin: 07/27/25 20:59 Dose: 5 mg Ferrous Sulfate (Ferrous Sulfate 324 Mg Tablet.) 324 mg PO MOWEFR@0900 [facility] Last Admin: 07/28/25 08:14 Dose: 324 mg Fluticasone Propionate (Fluticasone Propionate Nasal 16 Gm [place]) 1 spray NOSTRIL-B BID PRN PRN Reason: Nasal Congestion Last Admin: 07/20/25 11:43 Dose: 1 spray Guaifenesin/Dextromethorphan (Guaifenesin Dm 100/10/5 Ml 5 Ml Syrup) 10 ml PO QID PRN PRN Reason: Cough Levothyroxine Sodium (Levothyroxine Sodium 175 Mcg Tablet) 175 mcg PO DAILY@0630 [facility] Last Admin: 07/28/25 05:51 Dose: 175 mcg Loratadine (Loratadine 10 Mg Tablet) 10 mg PO DAILY [facility] Last Admin: 07/28/25 08:14 Dose: 10 mg Magnesium Hydroxide (Milk Of Magnesia 30 Ml Oral.Susp) 30 ml PO DAILY PRN PRN Reason: Constipation Melatonin (Melatonin 3 Mg Tablet) 6 mg PO BEDTIME [facility] Last Admin: 07/27/25 20:59 Dose: 6 mg Memantine (Memantine Hcl 5 Mg Tablet) 5 mg PO BID [facility] Last Admin: 07/28/25 08:14 Dose: 5 mg Multivitamins/Vitamin C (Multivitamin Tablet) 1 tab PO DAILY [facility] Last Admin: 07/28/25 08:14 Dose: 1 tab Non-Formulary Medication (Vibegron [Gemtesa]) 75 mg PO DAILY [facility] Last Admin: 07/28/25 08:13 Dose: 75 mg Nystatin (Nystatin Powder 15 Gm Bottle) 1 appl TOPICAL BID PRN; Protocol PRN Reason: Rash Olanzapine (Olanzapine 10 Mg Tablet) 10 mg PO TID [facility] Last Admin: 07/28/25 08:14 Dose: 10 mg Quetiapine Fumarate (Quetiapine Fumarate 100 Mg Tablet) 100 mg PO BID [facility] Last Admin: 07/28/25 08:14 Dose: 100 mg Quetiapine Fumarate (Quetiapine Fumarate 50 Mg Tablet) 50 mg PO BEDTIME [facility] Last Admin: 07/27/25 21:00 Dose: 50 mg Quetiapine Fumarate (Quetiapine Fumarate 50 Mg Tablet) 50 mg PO BID PRN PRN Reason: severe agitation Senna (Sennosides 8.6 Mg Tablet) 8.6 mg PO Q48H [facility] Last Admin: 07/27/25 08:21 Dose: 8.6 mg Sertraline HCl (Sertraline Hcl 50 Mg Tablet) 50 mg PO DAILY [facility] Last Admin: 07/28/25 08:14 Dose: 50 mg Tamsulosin HCl (Tamsulosin Hcl 0.4 Mg Capsule) 0.4 mg PO DAILY [facility] Last Admin: 07/28/25 08:14 Dose: 0.4 mg Trazodone HCl (Trazodone Hcl 50 Mg Tablet) 150 mg PO BEDTIME [facility] Last Admin: 07/27/25 20:58 Dose: 150 mg Triamcinolone Acetonide (Triamcinolone Acet 0.1 % Oint 15 Gm Tube) 1 appl TOPICAL BID PRN PRN Reason: Skin Irritation Allergies Allergies Allergy/AdvReac Type Severity Reaction Status Date / Time adhesive tape Allergy Intermediate itching Verified 06/19/25 16:08 and skin redness latex Allergy Intermediate skin rash Verified 06/19/25 16:08 and itching Seasonal Allergies Allergy Itching Verified 06/19/25 16:08 weed pollen Allergy stuffy nose Verified 06/19/25 16:08 DUST Allergy Unknown ITCHY/WATERY Uncoded 06/19/25 16:08 EYES surgical paper tape Allergy Unknown rash Uncoded 06/19/25 16:08 Tide Allergy Unknown rash Uncoded 06/19/25 16:08 Assessment & Plan Assessment & Plan (1) Post-surgical hypothyroidism: Status: Acute Code(s): E89.0 - Postprocedural hypothyroidism (2) New abnormality on chest x-ray: Status: Acute Code(s): R93.89 - Abnormal findings on diagnostic imaging of other specified body structures (3) Mood disorder: Status: Acute Code(s): F39 - Unspecified mood [affective] disorder Assessment and Plan: (1) Major neurocognitive disorder due to vascular disease, with behavioral disturbance, severe: Status: Acute Code(s): F01.C18 - Vascular dementia, severe, with other behavioral disturbance (2) Developmental delay, moderate: Status: Deleted Code(s): R62.50 - Unspecified lack of expected normal physiological development in childhood Plan Ms. Ronquillo is a 69 year-old woman with hx of developmental delay, vascular dementia who was brought via EMS due to increase aggression. Medical work up mostly unremarkable, except for TSH 22, free T4 1.22. She is on levothyroxine, unclear if taking it as prescribed. This account underwriter spoke with pt's psychiatric provider, Tammy Randall who reports she has been adjusting dose of seroquel. She has been on carbamazepine for a long time for mood stabilization- will check level. Will add diazepam for impulsive/explosive behaviors. PLAN 1. Admit to S1, on Close observation for aggressive behaviors. 2. will switch carbamazepine to depakote- as carbamazepine may be interacting with other medications and may not be as effective managing impulsive/explosive behaviors. Depakote may activate patient and make her more aggressive. Taper down. 3. continue for now seroquel and Zyrepxa, but may consider changing antipsychotic medication as well. 4. obtain collateral information 5. aftercare planning. 07/16/25: TSH 0.07. VPA level 41.5. Total protein 6.0. Albumin 2.9. BUN 22. Ammonia level 38. 9/24 continue to present as agitated, combative. increase depakote to 500mg po BID. continue seroquel for now but may also consider switching antipsychotics as well. 06/26 continue tx. 06/27 continue current medications, will check depakote level on Monday. 06/28 added olanzapine 10mg at night- I see she has seroquel but seems like not adequate and depakote not making substantial gain as yet olanzapine can be discontinued after more stable on depakote- 06/29 CTP- 06/30 check depakote level tomorrow AM. Will decrease seroquel to 100mg po BID, continue seroquel 200mg po at noon. Increase olazapine to 10mg po BID. plan to cross taper to olanzapine. May add sertraline as antidepressant. 07/01 will increase olanzapine to 10mg po TID, will continue current decreased dose of seroquel for now. continue depakote 500mg po BID- will adjust dose as we get levels. no signs of increase ammonia. 07/02 continue tx. febrile, no SOB. seen by hospitalist. chest xr showed interstitial edema- consult to pulmonology. 07/03 started on doxycycline by stave saw operator. refused echo but will attempt tomorrow. 07/04 continue tx. 07/08- increase valium 10mg po TID, continue olanzapine, depakote 750mg po BID. increase agitation today. 07/09 continue tx. 07/10 continue tx. 07/11 continue tx. but may need to revisit overall treatment. 07/12: Continue current regimen and plans 07/13: Continue current regimen and plans 07/14: Continue current regimen and plans. 07/15 increasingly more agitated, sleep reversal which may be concerning for increase ammonia combine with increase agitation. will decrease depakote, add lactulose, since can't check ammonia she refuses and very agitated. not responding to medications. 07/16/25: Meet with patient in her room after lunch. Engaged with eye closed. Denies pain, depression or anxiety. Denies hallucinations. Patient is sedated and mostly sleeping this morning. Slept for 4 hours last night but was back to bed after 5 AM. Patient had lab drawn this morning but refuse to give urine sample to rule out any UTI as per nursing staff, patient got worse the past week, been refused labs, was agitated, abusive, and aggressive yesterday. Got PRN meds with mild to moderate effects. Patient is up, took AM meds late, ate 100% for lunch and back to bed again. Not swearing and yelling loudly compared to yesterday. Zyprexa, Valium, and Seroquel scheduled held in the AM and at 1500 d/t sedation. In better behavior control. Hospital consult placed d/t Low TSH 0.07. Remain on Close Obs for agitation/aggressive behaviors. 07/17/25: Patient slept for 4 hours last night. Received extra medication on overnight (zyprexa 10 and Valium 10 x1 dose), appear calm, more quiet, shower, up, and out to dining area for breakfast and lunch. Ate well at breakfast but not much for lunch. She says I want to go home and Ill try when asked if she can give urine sample. Denies pain, denies safety concerns i want to go home . Per nursing, patient had two large BM last night, some incontinence on night. Got to showered after breakfast. No foul swearing or minimal of swearing. Will discontinue Lactulose. VPA low but WNL, Ammonia WNL. Seen by hospitalist: Levothyroxine from 225 to 200mcg d/t low TSH. Recheck in 4-6 weeks. Pending U/A: collecting sample. 07/18/25:Patient slept through the night, compliant with medicationsy, but medications occasionally get held as patient was slept through the scheduled meds. Was given Seroquel p.r.n. around 05:00 this morning, therefore patient slept until almost 10 30 this morning. Ate some snacks, hang out in dining room, calm cooperative, and apologized for her behavior for yelling out loud at staff when she was in her room. \ Patient is much calmer, even though she had moment of yelling swearing at staff with foul language but seem improving in agitation. Patient expressed that she wanted to go home, and asked when she can go home. UA was negative. U/A: some abnormality but no UTI- pending culture 07/19/25: Patient slept for 8 hours, compliant with medications. Visible and appropriate in common areas, ambulate using the walker. She is much calmer, nicer and not swearing at peers or staff. Reported that someone told her that she is living on Monday. She is aware that today is Monday I am going home on Monday . Some incontinence issues at night, but using the bathroom when she needs to during daytime. Approachable, happy affect, aware of surrounding. Continued to improve. No UTI. Culture result WNL. Will increase Seroquel at night up to 150mg start 07/20. 07/20/25:Patient slept for 7-8 hours last night, compliant with medications, remain calm, visible in common area, pleasant and cooperative upon approach. Incontinence issues with urine today, ambulate using the walker, some mild drooling observed when sitting at a table falling asleep. Denies safety concerns. Continued to improve in mood. No yelling. Reduced Valium from 10mg TID down to BID 07/21/25: Patient slept well at night, good appetite, ambulating using walker. No fall. In general calm, pleasant and cooperative. Moments of irritable and frustrated easily when she her requests are not met fast/quick enough. Want to shower during lunch time and wanted to discharge today. Denies pain, able to change clothing herself. Denies SI/SIB/HI/AVH. Continue with Valium taper. SW will contact regarding discharge plan/aftercare plan. 07/22/25: Patient slept for 7 hours, good meal intake. Continued to improve in mood, quiet, calm, pleasant and cooperative. She met with her long term staff, spent sometimes in dining room playing cards, ate lunch late. Continued to on benzo taper. Possible discharge next week. facilities maintenance worker is in contact with the long term staff regarding discharge plan. Valium down from 10mg BID to 5mg BID Reduced PRN Seroquel 100mg BID to 50mg BID. 07/23/25: Calm, pleasant and cooperative. Continue to improve in mood, sleep and appetite. She spent most of morning visible in common areas, coloring and engage in activities. No yelling. No issues with appetite. No safety concerns. Continue to taper down on Valium. Tolerate well with med changes. Less sedated. Possible discharge next week on Monday back to . Ambulate using walker. No falls. 07/24: Continue current treatment regimen. May discharge to long term next Monday. 07/25/25: Patient spent most of the morning in room, out for meals and back to bed napping again.She is quiet, calm, and polite upon approach. No cough but has some running nose. No safety concerns. She tolerates well with BZD taper, will continue lower down on Valium and some other medication changes. Ambulate using walker, no fall. Had BM this morning. Appear tired. Valium down to 2mg BID from 5mg BID. Down Melatonin from 9mg to 6mg at HS. Collateral done with hospitalist regarding repeat CXray. Hospitalist contacted Printing Machine Mechanic. Result from Cxray on 07/24/25: Concerning acute airspace disease, right middle lung lobe/right lower lung base . Some labs work ordered per hospitalist plan: Covid, BMP, and CBC with diff: pending result. Tentative D/C next week on Monday. 07/26: continue current management and treatment plan. 07/27: continue current management and treatment plan. Discharge per primary team. 07/28/25: Patient slept for 8 hours, more isolated over the weekends in room, but no behavior issues. Patient was out for meals and visible for awhile before lunch. Back to bed resting after lunch, denies side effects from medication. Reports she feel a little bit tired but I am good. I want to go home. I miss [facility] staff. Reports dry cough but not severe. Denies headache/pain/chest pain. Reports little bit loose stool but not concerns. Mi running nose reports, not observe at the assessment time. facilities maintenance worker and this provider working on discharge medication list that long term request. This provider also working on sending medication to preferred pharmacy. No safety concerns. Patient continues with [facility] for resporatory treatment. CT scan of the chest done over the weekends, unremarkable d/t abnormal FLU chest xray done on 07/24/25. Patient to continue with [facility] until complete. Plan Cardiomegaly/cough/Abnormal chest x-ray Chest x-ray repeated today with concerning acute airspace disease right middle lung and right lower lung base Echo with normal LV systolic function, EF 62%, no obvious valvular pathology Low-grade temp noted 99.7. No significant hypoxia. No tachycardia Will start Augmentin and Zithromax. Will continue until complete tx after discharge. Viral swab to rule out flu COVID and RSV Continue to monitor Iron deficiency anemia Continue iron 3 times weekly Hypothyroidism/Status post thyroid removal Decrease levothyroxine 175 mcg daily due to Low TSH 0.07 on 07/16/2025 Repeat level in 4-6 weeks Frequent UTIs/OAB Continue vitamin-C, Flomax, Gemtesa Recently treated for UTI 06/16- Avoid obtaining urine cultures unless patient displays symptoms specifically localize to urinary tract, evidence of infection including fever, tachycardia, symptoms of UTI. Dementia Continue Namenda and Aricept. Melatonin at bedtime Patient educated on: diagnosis, medication risk/benefits, therapeutic strategies and medical condition Reason for continued inpatient stay Substantial Risk for: med/psych decompensation Time Spent With Patient Time: Total time managing care of this patient today ____ minutes.
[2025-07-28 20:00] VITALS: BP 134/60; PULSE 65; RESP 18; TEMP 36.7; O2SAT 96
[2025-07-29 08:15] VITALS: BP 140/67; PULSE 62; RESP 18; TEMP 36.8; O2SAT 96
--- NOTE | 2025-07-29 08:32 | PM.PSYDC ---
DS: Providers Provider Date of Service: 07/29/25 Date of admission: 06/23/25 14:50 Date of discharge: 07/29/25 Primary care physician: Unknown Physician Attending physician on admission: Izabella Presley Consults: 07/02/25 16:57 Consult to Pulmonology Routine Consulting Provider: [facility] Reason for consultation: chest xray concerning for interstitial lung edema Has provider been notified: Yes 07/16/25 17:42 Consult to Hospitalist Routine Comment: Consulting Provider: [facility] Reason For Exam: Low TSH. ? should levothyroxyne be lowered? Discharging clinician: Laurel Juarez DS: Diagnosis Discharge Diagnosis (1) Post-surgical hypothyroidism: Status: Acute (2) New abnormality on chest x-ray: Status: Acute (3) Mood disorder: Status: Acute DS: Medications Discharge Medications Home Medications: Home Medications ?Medication ?Instructions ?Recorded ?Confirmed nystatin 100,000 unit/gram topical 1 appl topical BID PRN Rash 01/05/21 06/20/25 powder triamcinolone acetonide 0.1 % 1 appl topical BID PRN Skin 01/24/23 06/20/25 topical ointment Irritation ascorbic acid (vitamin C) 500 mg 500 mg PO BID 03/13/24 06/20/25 tablet (Vitamin C) betamethasone dipropionate 0.05 % 1 appl topical BID PRN Dry areas 03/13/24 06/20/25 topical ointment on hand vibegron 75 mg tablet (Gemtesa) 75 mg PO DAILY 01/31/25 06/20/25 dextromethorphan-guaifenesin 10 10 ml PO QID PRN Cough 03/12/25 06/20/25 mg-100 mg/5 mL oral liquid (Guaifenesin-DM) acetaminophen 500 mg tablet 500 mg PO Q4H PRN Pain 06/03/25 06/20/25 Previous Rx's ?Medication ?Instructions ?Recorded multivitamin 1 tab PO DAILY #90 tabs 12/19/24 aspirin 81 mg tablet,delayed 81 mg PO DAILY #30 tabs 03/25/25 release docusate sodium 100 mg capsule 100 mg PO BID #60 caps 03/25/25 donepezil 5 mg tablet 5 mg PO BEDTIME #30 tabs 03/25/25 ferrous sulfate 324 mg (65 mg 324 mg PO MOWEFR@0900 #60 tabs 03/25/25 iron) tablet,delayed release fluticasone propionate 50 1 spray intranasal BID PRN nasal 03/25/25 mcg/actuation nasal congestion #16 grams spray,suspension loratadine 10 mg tablet 10 mg PO DAILY #30 tabs 03/25/25 sennosides 8.6 mg tablet 8.6 mg PO Q48H constipation #45 03/25/25 tabs tamsulosin 0.4 mg capsule 0.4 mg PO DAILY #30 caps 03/25/25 Icy Hot Max (lidocaine 1 appl topical BID PRN pain #76.5 04/28/25 HCl-menthol) 4 %-1 % topical cream grams (lidocaine HCl-menthol) Balmex Adult Care 11.3% topical 1 appl topical BID Rash #340 grams 04/30/25 cream (zinc oxide-vitamin B5-vit E) amoxicillin 875 mg-potassium 1 tab PO BID Respiratory infection 07/28/25 clavulanate 125 mg tablet 3 days #6 tabs azithromycin 250 mg tablet 250 mg PO Q24H respiratory 07/28/25 infection 1 day #1 tab diazepam 2 mg tablet 2 mg PO BID severe anxiety 30 07/28/25 days #60 tabs divalproex 250 mg tablet,delayed 250 mg PO BID Mood 30 days #60 07/28/25 release tabs levothyroxine 175 mcg tablet 175 mcg PO DAILY@0630 thyroid 07/28/25 disease 30 days #30 tabs melatonin 3 mg tablet 6 mg (2 x 3 mg) PO BEDTIME 07/28/25 insomnia 30 days #60 tabs memantine 5 mg tablet 5 mg PO BID Dementia 30 days #60 07/28/25 tabs olanzapine 10 mg tablet 10 mg PO TID agitation/mood 30 07/28/25 days #90 tabs quetiapine 200 mg tablet 100 mg (1/2 x 200 mg) PO BID 07/28/25 Mood/agitation 30 days #30 tabs quetiapine 50 mg tablet See Rx Instructions .Route 07/28/25 .COMPLEX PRN severe agitation 30 days #90 tabs sertraline 50 mg tablet 50 mg PO DAILY depression 30 days 07/28/25 #30 tabs trazodone 50 mg tablet 150 mg (3 x 50 mg) PO BEDTIME 07/28/25 insomnia 30 days #90 tabs Mental Status Exam Mental Status Exam Narrative: Patient presents well-groomed, casually dressed. Affect is euthymic with baseline affect. Speech is clear and coherent. Thought process is linear and logical. Thought content is appropriate and relevant. Patient denies suicidal or homicidal ideation intent or plan. No overt psychotic symptoms elicited. Future focus. Insight is good. Judgment is good. Data Data Completed and Pending Completed studies during hospitalization [Text1]: 07/25/25 21:05 Influenza Type A (PCR) NEGATIVE Influenza Type B (PCR) NEGATIVE RSV RNA Qual (PCR) NEGATIVE SARS-CoV-2 RNA (RT-PCR) NEGATIVE 07/18/25 Unknown Urine clean catch - Clean Catch Midstream Urine Culture - Final 06/19/25 21:42 Urine clean catch - Clean Catch Midstream Urine Culture - Final No growth. Imaging Diagnostic Imaging Impressions Chest X-Ray 07/02/25 15:14 IMPRESSION: Concerning interstitial lung edema. Questionable airspace disease, left lower lung lobe. Electronically signed by: Srinivasan Baron MD 07/02/2025 03:30 PM EDT RP Chest X-Ray 07/23/25 10:34 IMPRESSION: No acute airspace disease. Resolved. Electronically signed by: Srinivasan Baron MD 07/23/2025 10:40 AM EDT RP Chest X-Ray 07/24/25 08:15 IMPRESSION: Concerning acute airspace disease, right middle lung lobe/right lower lung base. Electronically signed by: Srinivasan aBron MD 07/24/2025 08:23 AM EDT RP Chest CT 07/25/25 15:52 IMPRESSION: Limited exam due to respiratory motion artifact. Subsegmental atelectasis or small infiltrate in the left lower lobe. Trace left pleural effusion. Question mosaic attenuation in the lungs, greatest in the bilateral upper lobes. Enlarged heart and trace pericardial effusion. Prominent pulmonary arteries, main pulmonary artery measuring 3.6 cm. Question circumferential wall thickening of the proximal thoracic esophagus. No mediastinal fluid or air. Electronically signed by: Niharika Wade MD 07/25/2025 04:27 PM EDT RP DS: Summary Hospital Course Hospital Course: Per admitting provider note on HPI: Ms. Ronquillo is a 69 year-old woman with hx of developmental delay, vascular dementia who was brought via EMS due to increase aggression. Medical work up mostly unremarkable, except for TSH 22, free T4 1.22. She is on levothyroxine, unclear if taking it as prescribed. This speech writer spoke with pt's psychiatric provider, Tammy Randall who reports she has been adjusting dose of seroquel. She has been on carbamazepine for a long time for mood stabilization- will check level. Will add diazepam for impulsive/explosive behaviors. PLAN 1. Admit to S1, on Close observation for aggressive behaviors. but changed to 5 min check once she was calmer. 2. will switch carbamazepine to depakote- as carbamazepine may be interacting with other medications and may not be as effective managing impulsive/explosive behaviors. Depakote may activate patient and make her more aggressive. Taper down. 3. continue for now seroquel and Zyrepxa, but may consider changing antipsychotic medication as well. 4. obtain collateral information 5. aftercare planning. 07/16/25: TSH 0.07. VPA level 41.5. Total protein 6.0. Albumin 2.9. BUN 22. Ammonia level 38. 06/25 continue to present as agitated, combative. increase depakote to 500mg po BID. continue seroquel for now but may also consider switching antipsychotics as well. 06/26 continue tx. 06/27 continue current medications, will check depakote level on Monday. 06/28 added olanzapine 10mg at night- I see she has seroquel but seems like not adequate and depakote not making substantial gain as yet olanzapine can be discontinued after more stable on depakote- 06/29 CTP- 06/30 check depakote level tomorrow AM. Will decrease seroquel to 100mg po BID, continue seroquel 200mg po at noon. Increase olazapine to 10mg po BID. plan to cross taper to olanzapine. May add sertraline as antidepressant. 07/01 will increase olanzapine to 10mg po TID, will continue current decreased dose of seroquel for now. continue depakote 500mg po BID- will adjust dose as we get levels. no signs of increase ammonia. 07/02 continue tx. febrile, no SOB. seen by hospitalist. chest xr showed interstitial edema- consult to pulmonology. 07/03 started on doxycycline by buffer chrome. refused echo but will attempt tomorrow. 07/04 continue tx. 07/08- increase valium 10mg po TID, continue olanzapine, depakote 750mg po BID. increase agitation today. 07/09 continue tx. 07/10 continue tx. 07/11 continue tx. but may need to revisit overall treatment. 07/12: Continue current regimen and plans 07/13: Continue current regimen and plans 07/14: Continue current regimen and plans. 07/15 increasingly more agitated, sleep reversal which may be concerning for increase ammonia combine with increase agitation. will decrease depakote, add lactulose, since can't check ammonia she refuses and very agitated. not responding to medications. 07/16/25: Meet with patient in her room after lunch. Engaged with eye closed. Denies pain, depression or anxiety. Denies hallucinations. Patient is sedated and mostly sleeping this morning. Slept for 4 hours last night but was back to bed after 5 AM. Patient had lab drawn this morning but refuse to give urine sample to rule out any UTI as per nursing staff, patient got worse the past week, been refused labs, was agitated, abusive, and aggressive yesterday. Got PRN meds with mild to moderate effects. Patient is up, took AM meds late, ate 100% for lunch and back to bed again. Not swearing and yelling loudly compared to yesterday. Zyprexa, Valium, and Seroquel scheduled held in the AM and at 1500 d/t sedation. In better behavior control. Hospital consult placed d/t Low TSH 0.07. Remain on Close Obs for agitation/aggressive behaviors. 07/17/25: Patient slept for 4 hours last night. Received extra medication on overnight (zyprexa 10 and Valium 10 x1 dose), appear calm, more quiet, shower, up, and out to dining area for breakfast and lunch. Ate well at breakfast but not much for lunch. She says I want to go home and Ill try when asked if she can give urine sample. Denies pain, denies safety concerns i want to go home . Per nursing, patient had two large BM last night, some incontinence on night. Got to showered after breakfast. No foul swearing or minimal of swearing. Will discontinue Lactulose. VPA low but WNL, Ammonia WNL. Seen by hospitalist: Levothyroxine from 225 to 200mcg d/t low TSH. Recheck in 4-6 weeks. Pending U/A: collecting sample. 07/18/25:Patient slept through the night, compliant with medicationsy, but medications occasionally get held as patient was slept through the scheduled meds. Was given Seroquel p.r.n. around 05:00 this morning, therefore patient slept until almost 10 30 this morning. Ate some snacks, hang out in dining room, calm cooperative, and apologized for her behavior for yelling out loud at staff when she was in her room. \ Patient is much calmer, even though she had moment of yelling swearing at staff with foul language but seem improving in agitation. Patient expressed that she wanted to go home, and asked when she can go home. UA was negative. U/A: some abnormality but no UTI- pending culture 07/19/25: Patient slept for 8 hours, compliant with medications. Visible and appropriate in common areas, ambulate using the walker. She is much calmer, nicer and not swearing at peers or staff. Reported that someone told her that she is living on Monday. She is aware that today is Monday I am going home on Monday . Some incontinence issues at night, but using the bathroom when she needs to during daytime. Approachable, happy affect, aware of surrounding. Continued to improve. No UTI. Culture result WNL. Will increase Seroquel at night up to 150mg start 07/20. 07/20/25:Patient slept for 7-8 hours last night, compliant with medications, remain calm, visible in common area, pleasant and cooperative upon approach. Incontinence issues with urine today, ambulate using the walker, some mild drooling observed when sitting at a table falling asleep. Denies safety concerns. Continued to improve in mood. No yelling. Reduced Valium from 10mg TID down to BID 07/21/25: Patient slept well at night, good appetite, ambulating using walker. No fall. In general calm, pleasant and cooperative. Moments of irritable and frustrated easily when she her requests are not met fast/quick enough. Want to shower during lunch time and wanted to discharge today. Denies pain, able to change clothing herself. Denies SI/SIB/HI/AVH. Continue with Valium taper. SW will contact regarding discharge plan/aftercare plan. 07/22/25: Patient slept for 7 hours, good meal intake. Continued to improve in mood, quiet, calm, pleasant and cooperative. She met with her long term staff, spent sometimes in dining room playing cards, ate lunch late. Continued to on benzo taper. Possible discharge next week. tube worker is in contact with the long term staff regarding discharge plan. Valium down from 10mg BID to 5mg BID Reduced PRN Seroquel 100mg BID to 50mg BID. 07/23/25: Calm, pleasant and cooperative. Continue to improve in mood, sleep and appetite. She spent most of morning visible in common areas, coloring and engage in activities. No yelling. No issues with appetite. No safety concerns. Continue to taper down on Valium. Tolerate well with med changes. Less sedated. Possible discharge next week on Monday back to . Ambulate using walker. No falls. 07/24: Continue current treatment regimen. May discharge to long term next Monday. 07/25/25: Patient spent most of the morning in room, out for meals and back to bed napping again.She is quiet, calm, and polite upon approach. No cough but has some running nose. No safety concerns. She tolerates well with BZD taper, will continue lower down on Valium and some other medication changes. Ambulate using walker, no fall. Had BM this morning. Appear tired. Valium down to 2mg BID from 5mg BID. Down Melatonin from 9mg to 6mg at HS. Collateral done with hospitalist regarding repeat CXray. Hospitalist contacted Rental Counter Clerk. Result from Cxray on 07/24/25: Concerning acute airspace disease, right middle lung lobe/right lower lung base . Some labs work ordered per hospitalist plan: Covid, BMP, and CBC with diff: pending result. Tentative D/C next week on Monday. 07/26: continue current management and treatment plan. 07/27: continue current management and treatment plan. Discharge per primary team. 07/28/25: Patient slept for 8 hours, more isolated over the weekends in room, but no behavior issues. Patient was out for meals and visible for awhile before lunch. Back to bed resting after lunch, denies side effects from medication. Reports she feel a little bit tired but I am good. I want to go home. I miss [facility] - staff. Reports dry cough but not severe. Denies headache/pain/chest pain. Reports little bit loose stool but not concerns. Mi running nose reports, not observe at the assessment time. tube worker and this provider working on discharge medication list that long term request. This provider also working on sending medication to preferred pharmacy. No safety concerns. Patient continues with ABT for resporatory treatment. CT scan of the chest done over the weekends, unremarkable d/t abnormal FLU chest xray done on 07/24/25. Patient to continue with ABT until complete. 07/29/25: patient discharge back to where I have been there almost 4-5 year this September and I like it there . Reviewed with patient regarding ABT treatment to complete. No Chest pain/ cough. Report running nose d/t allergy. Patient received a couple restraints during hospitalization for aggressive behaviors. Patient does well with current depakote dose. At higher dose, patient got agitated and aggressive. All meds changes/ discontinue reviewed with staff by NENITA and this provider to make sure patient gets same medications as indicated. Medical condition plans per hospitalist: Cardiomegaly/cough/Abnormal chest x-ray Chest x-ray repeated on 07/25 with concerning acute airspace disease right middle lung and right lower lung base Echo with normal LV systolic function, EF 62%, no obvious valvular pathology Low-grade temp noted 99.7. No significant hypoxia. No tachycardia Will start Augmentin and Zithromax. Will continue until complete tx after discharge. Viral swab to rule out flu COVID and RSV Continue to monitor Iron deficiency anemia Continue iron 3 times weekly Hypothyroidism/Status post thyroid removal Decrease levothyroxine 175 mcg daily due to Low TSH 0.07 on 07/16/2025 Repeat level in 4-6 weeks Frequent UTIs/OAB Continue vitamin-C, Flomax, Gemtesa Recently treated for UTI 06/16- Avoid obtaining urine cultures unless patient displays symptoms specifically localize to urinary tract, evidence of infection including fever, tachycardia, symptoms of UTI. Dementia Continue Namenda and Aricept. Melatonin at bedtime Time spent discussing smoking cessation with patient: 3 to 10 minutes Status at Discharge Cognitive/behavioral status at discharge: CONDITION ON DISCHARGE: CURRENT STATUS IT RELATES TO ADMISSION CRITERIA: Stable, improved. Improvements in depression, anxiety, and aggressive behaviors. Improvements in sleep, energy, and appetite. and no hallucination or paranoia/delusional thought. Functional status at discharge: uses cane/walker Overall status at discharge: patient is back to baseline Time Spent with Patient Time attestation: Total time managing care of this patient today ____ minutes. Time spent: Greater than 30 minutes Discharge Plan Discharge Anticipated Discharge Date/Time: 07/29/25 10:30 Patient Disposition: Xfer Other Discharge Diagnosis: Dementia with behavioral disturbance, Intermittent explosive disorder, Respiratory infection [facility]: Nora Miles Therapist [Other] - 07/31/25 11:00 am Referral Note: Telehealth-long term staff will assist in signing you on for virtual/video visit Behavioral [facility]: Tammy Randall Psychiatry [Other] - 08/06/25 11:30 am Referral Note: Appointment is in person at [facility]; Entrance [facility] [Other] - 07/29/25 Referral Note: Return to long term on 07/29/25. Department of Developmental Services/[facility] [Other] - 07/29/25 Referral Note: DDS serrvices to resume at time of discharge. PAY[facility] [Other] - 08/05/25 11:30 am Referral Note: Your next PCP appointmnet is scheduled for 08/05/25 at 11:30am. Discharge Medications: New amoxicillin-pot clavulanate 875-125 mg Tablet 1 tab PO BID 3 Days Qty: 6 0RF Rx Instructions: Take another 3 days to complete 7-day treatment. azithromycin 250 mg Tablet 250 mg PO Q24H 1 Days Qty: 1 0RF Rx Instructions: Take one more day to complete treatment. melatonin 3 mg Tablet 6 mg PO BEDTIME 30 Days Qty: 60 0RF levothyroxine 175 mcg Tablet 175 mcg PO DAILY@0630 30 Days Qty: 30 0RF trazodone 50 mg Tablet 150 mg PO BEDTIME 30 Days Qty: 90 0RF diazepam 2 mg Tablet 2 mg PO BID 30 Days Qty: 60 0RF Rx Instructions: Hold for over sedation divalproex 250 mg Tablet,Delayed Release (Dr/Ec) 250 mg PO BID 30 Days Qty: 60 0RF olanzapine 10 mg Tablet 10 mg PO TID 30 Days Qty: 90 0RF quetiapine 50 mg Tablet See Rx Instructions .ROUTE .COMPLEX PRN (Reason: severe agitation) 30 Days Qty: 90 0RF Rx Instructions: Take 1 tablet by mouth a bedtime. Take 1 tablet twice daily every 4 hours as need for agitation/severe anxiety. NOT to exceed doses/day. sertraline 50 mg Tablet 50 mg PO DAILY 30 Days Qty: 30 0RF Continued Icy Hot Max (lido HCl-menthol) 4-1 % cream 1 appl topical BID PRN (Reason: pain) Qty: 76.5 3RF Balmex Adult Care 11.3 % cream 1 appl TOPICAL BID Qty: 340 1RF Rx Instructions: apply to rash, groin, and buttocks nystatin 100,000 unit/gram Powder 1 appl TOPICAL BID PRN (Reason: Rash) Rx Instructions: rash in skin folds triamcinolone acetonide 0.1 % ointment 1 appl topical BID PRN (Reason: Skin Irritation) Rx Instructions: apply to the lower abdomen, groin, and Buttocks ( Once started apply 2 weeks on and 1 week off) betamethasone dipropionate 0.05 % ointment 1 appl topical BID PRN (Reason: Dry areas on hand) Rx Instructions: Once started, Apply 2 weeks on and 1 week off. ascorbic acid (vitamin C) [Vitamin C] 500 mg tablet 500 mg PO BID dextromethorphan-guaifenesin [Guaifenesin-DM] 10-100 mg/5 mL Liquid 10 ml PO QID PRN (Reason: Cough) donepezil 5 mg Tablet 5 mg PO BEDTIME Qty: 30 0RF aspirin 81 mg Tablet,Delayed Release (Dr/Ec) 81 mg PO DAILY Qty: 30 0RF tamsulosin 0.4 mg Capsule 0.4 mg PO DAILY Qty: 30 0RF loratadine 10 mg Tablet 10 mg PO DAILY Qty: 30 0RF ferrous sulfate 324 mg (65 mg iron) Tablet,Delayed Release (Dr/Ec) 324 mg PO MOWEFR@0900 Qty: 60 0RF docusate sodium 100 mg Capsule 100 mg PO BID Qty: 60 0RF fluticasone propionate 50 mcg/actuation [place],Suspension 1 spray intranasal BID PRN (Reason: nasal congestion) Qty: 16 0RF sennosides 8.6 mg tablet 8.6 mg PO Q48H Qty: 45 3RF Rx Instructions: hold for diarrhea. call md if hold for 2 consecutive doses acetaminophen 500 mg tablet 500 mg PO Q4H PRN (Reason: Pain) multivitamin Tablet 1 tab PO DAILY Qty: 90 3RF Gemtesa 75 mg tablet 75 mg PO DAILY Changed quetiapine 200 mg Tablet 100 mg PO BID 30 Days Qty: 30 0RF Rx Instructions: Total 150mg at bedtime. Give with 50mg. memantine 5 mg tablet 5 mg PO BID 30 Days Qty: 60 0RF Rx Instructions: PM Discontinued carbamazepine 200 mg Tablet 400 mg PO BEDTIME Qty: 60 0RF carbamazepine 200 mg Tablet 200 mg PO DAILY Qty: 30 0RF quetiapine 100 mg Tablet 100 mg PO DAILY@1200 Qty: 30 0RF trazodone 100 mg Tablet 100 mg PO BEDTIME Qty: 30 0RF melatonin 3 mg Tablet 9 mg PO BEDTIME Qty: 90 0RF levothyroxine [Synthroid] 200 mcg Tablet 200 mcg PO DAILY@0600 Qty: 30 0RF diazepam [Valium] 2 mg tablet 2 mg PO NEEDED Rx Instructions: ONCE DAILY levothyroxine [Synthroid] 50 mcg tablet 50 mcg PO DAILY Qty: 30 5RF Discharge Orders: Discharge Order (Routine); Ordered 07/29/25 Ordered By: Laurel Juarez Diet: Regular diet Activity on Discharge: Use cane or walker Stand Alone Forms: Patient Portal Discharge page, Community Support Print Language: [place] Care Plan Goals: Maintain mood and safe behaviors Take medications as prescribed Continue to pursue sobriety Practice coping skills Continue with outpatient providers and reach out to them as needed Health Concerns: Mood stability and behaviors Sobriety Plan of Treatment: Follow up with your PCP, psychiatric provider and other outpatient providers regarding above concerns Take medications as prescribed Assessment: Assessment: Risk assessment at time of discharge: Patient was interviewed prior to discharge and found to be fully oriented and without any SI or HI. Patient has improved insight and judgment and wants to continue treatment. Patient is not in imminent risk of harm to self or others and has a safety plan that includes presenting to the closest ER or calling 911 if feeling unsafe. Patient has been observed closely by nursing and unit staff throughout admission; patient has not engaged in any behaviors that suggest dangerousness to self or others and has demonstrated appropriate behaviors and impulse control Discharge Date/Time: 07/29/25 10:43
[2025-07-29] MEDS: Aspirin Enteric Coated 81 MG TABLET.DR PO (08:47)
== END 2025-07-29 10:43 | disposition other institution (70) | DRG 883 ==
LOC: HO.ED 17:53 → HO.PGERI 06-23 15:03
PROVIDERS: Nurse Practitioner Family; Nurse Practitioner Psychiatric/Mental Health; Physician Assistant; Admitting Provider Social Worker; Emergency Provider Emergency Medicine; Visit Provider Social Worker
DX: F63.81 Intermittent explosive disorder (principal); F01.511 Vascular dementia, unspecified severity, with agitation; D50.9 Iron deficiency anemia, unspecified; W19.XXXA Unspecified fall, initial encounter; Y92.231 Patient bathroom in hospital as the place of occurrence of the external cause; R62.50 Unspecified lack of expected normal physiological development in childhood; R91.8 Other nonspecific abnormal finding of lung field; E89.0 Postprocedural hypothyroidism; N32.81 Overactive bladder; J98.8 Other specified respiratory disorders; Z78.1 Physical restraint status; Z87.440 Personal history of urinary (tract) infections; Z79.82 Long term (current) use of aspirin; Z79.890 Hormone replacement therapy; Z79.899 Other long term (current) drug therapy
CPT/HCPCS: 36415; 70450; 71045; 71046; 71250; 80053; 80061; 80156; 80164; 80307; 81001; 81003; 82140; 82607; 82746; 82947; 83036; 84439; 84443; 85025; 87086; 87633; 87637; 93005; 93306; 99285; J1200; J1630; J2359; J3230; J3360; S9485

== ENCOUNTER → 2025-06-19 16:29 | Outpatient (BNV) | payer MEDICARE, MEDICAID, SELFPAY | PROVIDERS: Emergency Provider Emergency Medicine; Visit Provider Social Worker | DX: F01.C18 Vascular dementia, severe, with other behavioral disturbance (principal); R62.50 Unspecified lack of expected normal physiological development in childhood | CPT/HCPCS: 90792; 99231; 99232 ==

== ENCOUNTER → 2025-06-20 00:12 | Outpatient (BNV) | payer MEDICARE, MEDICAID, SELFPAY | PROVIDERS: Emergency Provider Emergency Medicine; Visit Provider Radiology Diagnostic Radiology | DX: R45.6 Violent behavior (principal) | CPT/HCPCS: 70450 ==

== ENCOUNTER → 2025-06-20 18:41 | Outpatient (BNV) | payer MEDICARE, MEDICAID, SELFPAY | PROVIDERS: Emergency Provider Emergency Medicine; Visit Provider Internal Medicine | DX: I45.2 Bifascicular block (principal) | CPT/HCPCS: 93010 ==

== ENCOUNTER 2025-06-23 14:50 | Outpatient (BNV) | payer MEDICARE, MEDICAID, SELFPAY | END 2025-07-04 07:00 | PROVIDERS: Admitting Provider Social Worker; Emergency Provider Emergency Medicine; Visit Provider Internal Medicine | DX: I51.7 Cardiomegaly (principal) | CPT/HCPCS: 93306 ==

== ENCOUNTER 2025-06-23 14:50 | Outpatient (BNV) | payer MEDICARE, MEDICAID, SELFPAY | END 2025-07-02 15:14 | PROVIDERS: Admitting Provider Social Worker; Emergency Provider Emergency Medicine; Visit Provider Radiology Diagnostic Radiology | DX: R50.9 Fever, unspecified (principal) | CPT/HCPCS: 71045 ==

== ENCOUNTER 2025-06-23 14:50 | Outpatient (BNV) | payer MEDICARE, MEDICAID, SELFPAY | END 2025-07-24 08:00 | PROVIDERS: Admitting Provider Social Worker; Emergency Provider Emergency Medicine; Visit Provider Radiology Diagnostic Radiology | DX: R05.9 Cough, unspecified (principal) | CPT/HCPCS: 71046 ==

== ENCOUNTER 2025-06-23 14:50 | Outpatient (BNV) | payer MEDICARE, MEDICAID, SELFPAY | END 2025-07-23 10:34 | PROVIDERS: Admitting Provider Social Worker; Emergency Provider Emergency Medicine; Visit Provider Radiology Diagnostic Radiology | DX: R05.9 Cough, unspecified (principal) | CPT/HCPCS: 71046 ==

== ENCOUNTER 2025-06-23 14:50 | Outpatient (BNV) | payer MEDICARE, MEDICAID, SELFPAY | END 2025-07-01 15:43 | PROVIDERS: Admitting Provider Social Worker; Emergency Provider Emergency Medicine; Visit Provider Internal Medicine | DX: I45.2 Bifascicular block (principal) | CPT/HCPCS: 93010 ==

== ENCOUNTER 2025-06-23 14:50 | Outpatient (BNV) | payer MEDICARE, MEDICAID, SELFPAY | END 2025-07-25 15:52 | PROVIDERS: Admitting Provider Social Worker; Emergency Provider Emergency Medicine; Visit Provider Radiology Diagnostic Radiology | DX: J98.11 Atelectasis (principal); J90 Pleural effusion, not elsewhere classified | CPT/HCPCS: 71250 ==

== ENCOUNTER → 2025-06-23 14:50 | Outpatient (BNV) | payer MEDICARE, MEDICAID, SELFPAY | PROVIDERS: Admitting Provider Social Worker; Emergency Provider Emergency Medicine; Visit Provider Hospitalist | DX: R93.89 Abnormal findings on diagnostic imaging of other specified body structures (principal); R05.1 Acute cough; I51.7 Cardiomegaly | CPT/HCPCS: 99223 ==

== ENCOUNTER → 2025-06-23 14:50 | Outpatient (BNV) | payer MEDICARE, MEDICAID, SELFPAY | PROVIDERS: Admitting Provider Social Worker; Emergency Provider Emergency Medicine; Visit Provider Nurse Practitioner Family | DX: F03.918 Unspecified dementia, unspecified severity, with other behavioral disturbance (principal) | CPT/HCPCS: 99221 ==

== ENCOUNTER 2025-08-05 11:19 | Outpatient (AMB) | payer MEDICARE, MEDICAID, SELFPAY ==
--- NOTE | 2025-08-05 11:22 | A.OFFPC_ITS ---
Vital Signs 08/05/25 11:35 Weight 69.853 kg BP 128/78 Blood Pressure Location Lt brachial Position Sitting Pulse 60 Pulse Source Pulse Oximeter Temp 98.9 F Temp Source Temporal Artery Scan Pulse Oximetry (%) 97 Oxygen Delivery Method Room Air Intake Visit Reasons: Aggitation [facility] Clinical Athletic Instructor Required: No Accompanied by: CONTRACT TECHNICIAN Allergies adhesive tape Allergy (Intermediate, Verified 08/05/25 11:22) itching and skin redness latex Allergy (Intermediate, Verified 08/05/25 11:22) skin rash and itching Seasonal Allergies Allergy (Verified 08/05/25 11:22) Itching weed pollen Allergy (Verified 08/05/25 11:22) stuffy nose DUST Allergy (Unknown, Uncoded 06/19/25 16:08) ITCHY/WATERY EYES surgical paper tape Allergy (Unknown, Uncoded 06/19/25 16:08) rash Tide Allergy (Unknown, Uncoded 06/19/25 16:08) rash Medication List - Last Reconciled 08/05/25 by PAYTON Katz acetaminophen 500 mg PO Q4H PRN ascorbic acid (vitamin C) (Vitamin C) 500 mg PO BID aspirin 81 mg PO DAILY Balmex Adult Care 11.3 % (zinc oxide-vitamin B5-vit E) 1 appl topical BID NS betamethasone dipropionate 0.05% 1 appl topical BID PRN dextromethorphan-guaifenesin 10-100 mg/5 mL (Guaifenesin-DM) 10 mL PO QID PRN diazepam 2 mg PO BID 30 days divalproex 250 mg PO BID 30 days docusate sodium 100 mg PO BID donepezil 5 mg PO BEDTIME ferrous sulfate 324 mg PO MOWEFR@0900 fluticasone propionate 50 mcg/actuation 1 spray intranasal BID PRN Icy Hot Max (lido HCl-menthol) 4-1 % (lidocaine HCl-menthol) 1 appl topical BID PRN NS levothyroxine 175 mcg PO DAILY@0630 30 days loratadine 10 mg PO DAILY melatonin 6 mg (2 x 3 mg) PO BEDTIME 30 days memantine 5 mg PO BID 30 days multivitamin 1 tab PO DAILY nystatin 1 appl topical BID PRN olanzapine 10 mg PO TID 30 days quetiapine Take 1 tablet by mouth a bedtime. Take 1 tablet twice daily every 4 hours as need for agitation/severe anxiety. NOT to exceed doses/day. 30 days quetiapine 100 mg (1/2 x 200 mg) PO BID 30 days sennosides 8.6 mg PO Q48H sertraline 50 mg PO DAILY 30 days tamsulosin 0.4 mg PO DAILY trazodone 150 mg (3 x 50 mg) PO BEDTIME 30 days triamcinolone acetonide 0.1% 1 appl topical BID PRN vibegron (Gemtesa) 75 mg PO DAILY Tobacco use date assessed: 01/31/25 Dental Screening Dental Screen Date: 06/03/25 HPI HPI Comments History of Present Illness Details 69-year-old female with history of vascu lar dementia, developmental delay, toxic multinodular goiter s/p thyroidectomy with postsurgical hypothyroidism, recurrent UTI presents to the office today accompanied by long term staff, Bertha. She is very pleasant today. Hypothyroidism-post surgical. [place] [facility] [place]. Last TSH 22 with normal free T4. Levothyroxine was increased to 250 mcg daily. Due for blood work which has been ordered by endo Vascular dementia with mood disturbance-see below Recurrent UTI/incontinence-on Gemtesa and methenamine as well as tamsulosin- following with Ramila Maldonado. History Enterococcus faecalis. Also following with Urogynecology Derm-follows with Dr. Webster. Triamcinolone urogyn- Concerns: Admitted from 06/21 11/11/2027 due to increased aggression and agitation. No increased confusion. Urinalysis at the time not indicative of infection. She did develop cough and prompted a chest x-ray showing right middle and lower consolidations. Pulmonology was consulted. CT of the chest was ordered which showed subsegmental atelectasis or small infiltrate in the left lower lobe with trace left pleural effusion with question of mosaic attenuation in the lungs greatest in the bilateral upper lobes. Heart also appeared to be enlarged with trace pericardial effusion and prominent pulmonary arteries with the main pulmonary artery measuring 3.6 cm. There was also question of circumferential wall thickening of the proximal thoracic esophagus. She was treated with antibiotics with good improvement in symptoms. No dysphagia or odynophagia. No fevers or chills. No hypoxia. Echocardiogram was performed on 07/04 with no rmal LV systolic function with EF 62% with mildly increased left ventricular wall thickness and no obvious valvular pathology. A trivial pericardial effusion was noted. No significant abnormality of the major vessels. While admitted, TSH was noted to be depressed at 0.07, free T4 1.09. Dose of levothyroxine was decreased to 175 mcg daily. Labs otherwise unremarkable except for a chronic normocytic anemia consistent with baseline. While in the hospital, quetiapine was changed to 100 mg twice daily and memantine added at 5 mg twice daily. Initially diazepam had been added for agitation PRN but was discontinued when mood stabilized. All other medications remain the same. She did require chemical restraint x1 on 07/15 with good effect, no physical injuries or respiratory distress. Hospitalist service was consulted. Advised to follow-up with psychiatrist, Tammy Randall. Since discharge, mood has been stable without any behavioral disturbance per Bertha, and patient denies any medardo rns. Reported to have mechanical fall 2 days ago following discharge. No head injury or loss of consciousness. Does use Rollator walker. Requesting PT at the home. Health maintenance: Colonoscopy up-to-date Last screening mammogram 11/2024 with 1 year follow-up advised, negative for malignancy Last DEXA scan 11/2024 showing osteopenia ROS: see hpi EXAM: Constitutional - Awake and Alert, No apparent distress Eyes - PERRL Cardiovascular - S1S2, RRR, No edema Respiratory - Normal lung expansion, Normal respiratory effort, No respiratory distress, CTA bilaterally Extremities - no calf tenderness bilaterally, no swelling Skin - Warm/Dry Neurological - Alert & oriented to self, place, and basic understanding of visit Psychological - Appropriate affect [facility] Medical History (Updated 08/05/25 @ 12:42 by PAYTON Katz) Recurrent UTI Intermittent explosive disorder Abnormal MRI Post-surgical hypothyroidism History of ESBL E. coli infection Toxic multinodular goiter Vitamin D deficiency Hyperthyroidism Colon cancer Lung mass Developmental delay, mild Arthritis Surgical History History of carpal tunnel surgery of right wrist Hx of total thyroidectomy History of biopsy Hx of colonic polyps Hx of colonoscopy Family History Father No problems noted. 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 Housing: Other Housing Other:: correction Alcohol intake: never Comment: 0+ Patient Tobacco Use Status: Never used Tobacco e-Cigarette/Vaping Use: Never Used Second Hand Smoke Exposure: No Advance Directives Date on File: 01/05/21 service: No Current occupational status: disabled Current occupation: right handed Sexual orientation: Straight/Heterosexual Cognitive needs: Yes (walker) Hearing needs: No Vision needs: Yes (rx glasses) Questionnaire Thrive Questionnaire Date Thrive assessed: 06/24/25 MARISSA-7 AMB Questionnaire MARISSA-7 Date MARISSA - 7 assessed: 06/03/25 Source: Developed by Drs. Harvinder Segura, Nadine Baumann, Vitaly Hernandez and colleagues, with an educational lian from [employer]. Physical exam (Primary Care) Vital Signs: Last Vital Signs Temp 98.9 F 08/05/25 11:35 Pulse 60 08/05/25 11:35 BP 128/78 08/05/25 11:35 Pulse Ox 97 08/05/25 11:35 Oxygen Delivery Method Room Air 08/05/25 11:35 Tobacco/Smoking Status: Tobacco use Status Tobacco use date assessed 01/31/25 08/05/25 11:22 Patient Tobacco Use Status Never used Tobacco 08/05/25 11:22 e-Cigarette/Vaping Use Never Used 08/05/25 11:22 Thrive Assessment: Date of Thrive Assessment Date Thrive assessed 06/24/25 08/05/25 11:22 Coding Level of Care Code Est Pt Level 5 (54196) Diagnoses Dementia F03.90 Agitation R45.1 Post-surgical hypothyroidism E89.0 Recurrent UTI N39.0 Hospital discharge follow-up Z09 Ab[address] chest CT R93.89 Time Spent (min) 50 Comment extensive review of chart as noted in addition to time spent in visit and documentation Assessment & Plan Assessment & Plan (1) Dementia: Code(s): F03.90 - Unspecified dementia, unspecified severity, without behavioral disturbance, psychotic disturbance, mood disturbance, and anxiety Category: Medical Plan: Stable. With mood disorder. Continue with carbamazepine, donepezil, quetiapine as prescribed with changes as noted by Psychiatry discharge summary. Trazodone at bed. She should follow-up with Tammy Randall as scheduled. (2) Agitation: Code(s): R45.1 - Restlessness and agitation Category: Medical Plan: Stable. Likely related to personality conflicts versus decompensation of vascular dementia. Hospital discharge summary reviewed.. Continue to monitor and follow-up with psychiatry (3) Post-surgical hypothyroidism: Code(s): E89.0 - Postprocedural hypothyroidism Category: Medical Plan: Reviewed last endocrinology note. TSH elevated while in the hospital. Continue decreased dose of levothyroxine 175 mcg daily given subsequent subtherapeutic TSH level. Repeat labs pending orders (4) Recurrent UTI: Code(s): N39.0 - Urinary tract infection, site not specified Category: Medical Plan: Standing UA/UC ordered. Add cranberry. Continue following with Urology/Urogynecology (5) Hospital discharge follow-up: Code(s): Z09 - Encounter for follow-up examination after completed treatment for conditions other than malignant neoplasm Category: Medical Plan: Reviewed hospital consult, Psychiatry H&P, Psychiatry discharge summary, labs, pulmonology consult, chest CT, echocardiogram (6) Abnormal chest CT: Code(s): R93.89 - Abnormal findings on diagnostic imaging of other specified body structures Category: Medical Plan: Refer to pulmonology for further evaluation of abnormal chest CT. Repeat CXR ordered to ensure resolution of pneumonia treated while inpatient. Plan Follow-up in the office in 4 months, labs to be completed prior to visit Orders: Orders XR chest 2V Today J18.9 - Pneumonia, unspecified organism, R05.1 - Acute cough Referrals Pulmonology Referral J18.9 - Pneumonia, unspecified organism, R93.89 - Abnormal findings on diagnostic imaging of other specified body structures [facility]osp[facility] Referral F01.50 - Vascular dementia, unspecified severity, without behavioral disturbance, psychotic disturbance, mood disturbance, and anxiety, R26.89 - Other abnormalities of gait and mobility, R26.9 - Unspecified abnormalities of gait and mobility, W19.XXXA - Unspecified fall, initial encounter
[2025-08-05 11:35] VITALS: BP 128/78; PULSE 60; TEMP 37.2; O2SAT 97
--- OUTSIDE RECORDS SUMMARY | 2025-08-05 13:52 | XMS_ITS | Encounter Summary ---
Author Organization [facility] Address [address] [place] [address] Care Team Providers Care Licensed Professional Counselor Name Role Phone Sher Patrick Primary Care Provider [phone] Reason for Visit * Reason Onset Date Comments Needs to reschedule 09/28/2020 Encounter Details Date Type Department Care Team (Late st Contact Info) Description 09/28/2020 Telephone [facility] Central Scheduling Department [address] [place] [id number] Telephone Intake, Staff Needs to reschedule Social [...] Department Care Team (Latest Contact Info) Description 10/24/2025 7:15 AM EST Hospital Encounter [facility] Operating Room [address] [place] [address] Catracho Vidal MD MPH [address] [place] [address] 10/27/2025 7:15 AM EST - 10/27/2025 8:20 AM EST Surgery [facility] Operating Room [address] [place] [address] Catracho Vidal MD MPH [address] [place] [address] Colonoscopy Screening, High Risk with Possible Moderate Sedation [92744 (CPT )] Scheduled Procedures Name Priority Associated Diagnoses Date/Ti me COLONOSCOPY SCREENING, HIGH RISK WITH POSSIBLE MODERATE SEDATION Colorectal cancer 10/27/2025 7:15 AM EST documented as of this encounter Visit Diagnoses Not on filedocumented in this encounter Additional Health Concerns Infection Onset Date Last Indicated Resolved Time Multidrug resistant organism s ESBL Comment:ESBL E.coli 08/03/2020 08/03/2020 COVID-19 - Suspected infection 07/03/2021 07/03/2021 07/03/2021 7:00 PM EDT documented as of this encounter Care Teams Licensed Professional Counselor Relationship Specialty Start Date End Date Sher Patrick [address] [place] [address] [place] [id number] PCP - General 04/20/17 documented as of this encounter
--- OUTSIDE RECORDS SUMMARY | 2025-08-05 13:53 | XMS_ITS | Encounter Summary ---
Author Organization [facility] Address [address] [place] [address] Care Team Providers Care Cardiac Cath Rn Name Role Phone Sher Patrick Primary Care Provider [phone] Encounter Details Date Type Department Care Team (Late st Contact Info) Description 07/31/2025 Telephone [facility] Colorectal Surgery [address] [place] [phone] [employer] Consultant: Catracho Scruggs MD MPH [address] [place] [address] [phone] Social History Tobacco Use Types Packs/Day Years Used Date Smoking Tobacco: Never Smokeless Tobacco: Never Alcohol Use Standard Drinks/Week Comments Never 0 (1 standard drink = 0.6 oz pur e alcohol) [facility] Utilities Answer Date Recorded In the past 12 months has e [employer], gas, oil, or water [employer] threatened to shut off services in your [...] encounter Miscellaneous Notes * Telephone Encounter - Fanta Grady - 07/31/2025 2:01 PM EDT 07/31/25- LVM with Bertha at skilled nursing to [facility]vez. Booking out to end of . [place] documented in this encounter Plan of Treatment Upcoming Encounters Date Type Department Care Team (Latest Contact Info) Description 10/24/2025 7:15 AM EST Hospital Encounter [facility] Operating Room [address] [place] [phone] Catracho Vidal MD MPH [address] [place] [phone] 10/27/2025 7:15 AM EST - 10/27/2025 8:20 AM EST Surgery [facility] Operating Room [address] [place] [address] Catracho Vidal MD MPH [address] [place] [phone] Colonoscopy Screening, High Risk with Possible Moderate Sedation [36117 (CPT )] Scheduled Procedures Name Priority Associated [...] documented as of this encounter Care Teams Cardiac Cath Rn Relationship Specialty Start Date End Date Sher Patrick [address] [place] [address] dr Jose Garcia, [place] [phone] PCP - General 04/20/17 documented as of this encounter
--- OUTSIDE RECORDS SUMMARY | 2025-08-05 13:53 | XMS_ITS | Clinical Summary ---
Author Organization [facility] Address [address] [address] Phone Care Team Providers Care Managed Services Sales Consultant Name Role Phone Sher Ptarick MD Primary Care Provider [phone] Allergies Active Allergy Reactions Criticality Noted Date [...] topic Insurance Medicare Medicaid [place] Care Teams Managed Services Sales Consultant Relationship Specialty Start Date End Date Sher Patrick MD [address] [place] [address] DR[phone] [place] PCP - General Internal Medicine 09/17/24
--- OUTSIDE RECORDS SUMMARY | 2025-08-05 13:53 | XMS_ITS | Clinical Summary ---
Author Organization [facility] Address [address] [place] [address] Care Team Providers Care Utilities Manager Name Role Phone Sher Patrick Primary Care Provider [phone] Allergies Active Allergy Reactions Criticality Noted Date Comments House Dust Wheezing Low 08/19/2019 Latex Rash 12/09/2020 Mite Extract Other (see comments) Low 08/18/2019 [place] Pollen Unknown 05/29/2025 Medications carBAMazepine (TEGretol) 200 mg tablet Take by mouth every 12 hours. 200mg qAM / 400mg qhs 0 9 Active aspirin 81 mg EC tablet Take 81 mg by mouth daily. 6 9 Active loratadine (CLARITIN) 10 mg tablet Take 10 mg by mouth daily. 5 9 Active multivitamin capsule Take 1 capsule by mouth once a day. Active guaiFENesin (ROBITUSSIN) 100 mg/5 mL syrup Take 200 mg by mouth 4 times a day as needed for cough. Active melatonin 3 mg tablet Take 9 mg by mouth nightly. Active ascorbic acid 500 mg tablet Take 500 mg by mouth 2 times a day. 5 Active betamethasone dipropionate 0.05 % ointment Apply 1 application. topically to the affected area 2 times a day as needed for rash. Apply to affected dry areas on hands twice daily as needed; Once started, apply for 2 week on, 1 week off 5 Active Colace 100 mg capsule Take 100 mg by mouth 2 times a day. 4 Active donepeziL (ARICEPT) 5 mg tablet Take 5 mg by mouth nightly. 4 Active ferrous sulfate 325 mg (65 [...] 12/01/23 8:48:00 EST, Dry Weight 4 Active QUEtiapine (SEROquel) 50 mg tablet Take [...] hours as needed for pain. 5 Active Additional Information Patient taking differently:500 mg oral Every 4 hours PRN,pain, fever, Informant: Other Facility, Reported on 05/29/2025 senna 8.6 mg tablet Take 1 tablet by mouth every other day. Hold for diarrhea 5 Active zinc oxide/panthenol/ vitamin E (BALMEX ADULT CARE TOP) Apply 1 application. topically to the affected area 2 times a day. Groin and buttocks 4 Active menthol/camphor (ICY HOT ADVANCED TOP) Apply 1 application. topically to the affected area 2 (two) times a day. Back and shoulders 4 Active levothyroxine (SYNTHROID, LEVOTHROID) 125 mcg tablet [...] 75 mg by mouth once a day. Active triamcinolone acetonide (KENALOG) 0.1% ointment Apply 1 Application topically to the affected area 2 times a day as needed for rash (lower abdomen, groin, buttocks). Once started, apply for 2 week on, 1 week off Active Active Problems Problem Noted Date Diagnosed [...] Encounters Date Type Department Care Team Description 07/31/2025 Telephone [facility] Colorectal Surgery [address] [place] [phone] Veneer Department Manager: Catracho Scruggs MD MPH 06/06/2025 5:36 PM EDT - 06/07/2025 1:21 PM EDT Hospital Encounter [address] [place] [address] Catracho Vidal MD MPH Discharge Disposition: Home or Self Care (01) from Last 3 Months Immunizations Immunization Administration [...] drink = 0.6 oz pur e alcohol) [facility] Utilities Answer Date Recorded In the past 12 months has e [employer], gas, oil, or water company threatened to [...] Description 10/24/2025 7:15 AM EST Hospital Encounter [facility] Operating Room [address] [place] [id number] Catracho Vidal MD MPH [address] [place] [phone] 10/27/2025 7:15 AM EST - 10/27/2025 8:20 AM EST Surgery [facility] Operating Room [address] [place] [address] Catracho Vidal MD MPH [address] [place], [place] [id number] Colonoscopy Screening, High Risk with Possible Moderate Sedation [34410 (CPT )] Scheduled Procedures Name Priority Associated Diagnoses Date/Ti me COLONOSCOPY SCREENING, HIGH RISK WITH POSSIBLE MODERATE SEDATION Colorectal cancer 10/27/2025 7:15 AM EST Health Maintenance Due Date [...] 12/02/2020, 11/04/2020 Influenza Vaccine (#1) 2025 07/05/2021 Fall Risk Screening 06/07/2026 06/07/2025 DTaP,Tdap,and Td Vaccines (2 - Td or Tdap) 02/28/2035 02/28/2025, 08/17/2015 Hepatitis B Vaccines Aged Out No long er eligible based on patient's age to complete this topic Procedures * Due to [place] [employer] law, this organization might not be sharing negative HIV tests. Procedure Name Priority Date/Time Associated Diagnosis Comments ECG 12-LEAD STAT 06/06/2025 7:47 PM EDT HEART & VASCULAR - SCANNED 06/06/2025 COLONOSCOPY 08/05/2020 from Last 3 Months or Most Recently Relevant to Health Maintenance Results * Due to [place] [employer] law, this organization might not be sharing negative HIV tests. * ECG 12 lead (06/06/2025 7:47 PM EDT) Ventricular Rate EKG 95 BPM MUSE EKG Atrial Rate 95 BPM MUSE EKG WI Interval 178 ms MUSE EKG QRS Interval 140 ms MUSE EKG QT Interval 398 ms MUSE EKG QTC Interval 500 ms MUSE EKG P Op[place] 38 degrees MUSE EKG R [place] -62 degrees MUSE EKG T Wave [place] 19 degrees MUSE EKG 06/06/2025 7:47 PM EDT 06/07/2025 2:09 PM EDT Impressions MUSE EKG - 06/07/2025 2:10 PM EDT SINUS RHYTHM RIGHT BUNDLE BRANCH BLOCK LEFT ANTERIOR FASCICULAR BLOCK BIFASCICULAR BLOCK VOLTAGE CRITERIA FOR LEFT VENTRICULAR HYPERTROPHY PROLONGED QTc ABNORMAL ECG Confirmed by Leodan Velez ([id number]) on 06/07/2025 2:09:58 PM Narrative Procedure Note Leodan Velez MD - 06/07/2025 IMPRESSION: SINUS RHYTHM RIGHT BUNDLE BRANCH BLOCK LEFT ANTERIOR FASCICULAR BLOCK BIFASCICULAR BLOCK VOLTAGE CRITERIA FOR LEFT VENTRICULAR HYPERTROPHY PROLONGED QTc ABNORMAL ECG Confirmed by Leodan Velez ([id number]) on 06/07/2025 2:09:58 PM us Catracho Vidal [...] 1955 Admit Type: Inpatient Age: 64 Room: [place] [address] Gender: Female Note Status: Finalized Attending MD: [...] and oxygen saturations were monitored continuously. The [id number] was introduced through the anus and advanced [...] s ESBL Comment:ESBL E.coli 08/03/2020 08/03/2020 Insurance [facility] MEDICARE Advance Directives Documents on File Type Date Recorded Patient Classified Advertising Supervisor Expl anation Health Care Proxy 06/03/2025 6:10 AM [employer] 2024 Guardianship 05/31/2025 6:05 PM 2024 Advance [...] Thompson Friend Health Care Agent Care Teams Utilities Manager Relationship Specialty Start Date End Date Sher Patrick [address] [place] [address] dr Jose Garcia, [place] [id number] PCP - General 04/20/17
--- OUTSIDE RECORDS SUMMARY | 2025-08-05 13:53 | XMS_ITS | Data Portability ---
Author Organization [place] - [facility], Allergy Address [address] [address] Assessment Encounter Date Assessment Date Assessment LastModified by Organization Details LastModified Time 04/22/2024 04/22/2024 Incidental finding of right parapharyngeal lesion is partially visualized on previous MRI. Recommend further imaging with MRI neck with and without contrast and then likely referral to [facility] for discussion of surgical intervention. 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 Requested to share results with Patricia Villavicencio RN [phone] [email or web address] Not available 04/22/2024 11:08:51 01/10/2025 01/10/2025 Right parapharyngeal lesion is stable in size. No new symptoms. Per Dr Diop recommendation, serial MRI neck w contrast in a year to be ordered by PCP. Refer back to Dr Diop if rapid enlargement noted. At this time no ENT follow-up is recommended as she is not a surgical candidate [email or web address] Not available 01/10/2025 16:09:49 Plan of Treatment Reminders Order Date Submit Date Provider Last Modified By Organization Details Last Modified Time Details Appointments None recorded. Lab None recorded. Referral None recorded. Procedures None recorded. Surgeries None recorded. Imaging MRI, neck, w/wo contrast - followup of right parapharyn geal lesion 2023 024 ATHENAX [facility], [address] [facility], [facility] [address], [place], [address], 11:29:49 Medication Orders None recorded. Patient TargetsNo targets recorded. Patient InstructionsNo instructions recorded. Reason for Referral None Reported. Results Created Date Observation Date Name Description Value Unit Range Abnormal Flag Note LastModifiedBy Organization Detail LastModifiedTime 05/01/20 24 04/30/2024 MRI, neck, w/ contr ast No observ ation record ed. dploy [facility] [address], [place], [address], 05/01/2024 10:09:56 05/01/20 24 04/30/2024 MRI, neck, w/ contr ast No observ ation record ed. dploy [facility] [address], [place], [address], 05/01/2024 10:09:56 12/16/19 25 12/13/2024 MRI, neck, w/o contr ast No observ ation record ed. [email or web address] [facility] [address], [place], [address], 12/17/2024 14:16:49 Result Notes None recorded. Problems Name Problem SNOMED Code Status Onset Date Resolution Date Notes Provider Name and Address Organization Details Recorded Time Sensorine ural hearing loss of bilateral ears 511372240 Active 2014 Sensorine ural HL, bilateral ; Note: Date Diagnosed : 11/20/2014 4:41 PM (389.18) Note: Date Diagnosed : 11/20/2014 4:41 PM (389.18) Not Available [facility] 4 01:02:50 Impacted cerumen 17266808 Active 2014 Impacted cerumen; CMS Risk: low [...] : 11/20/2014 5:40 PM (380.4) Not Available [facility] 4 01:02:54 Impacted cerumen of bilateral ears [id number] 22033 Active 2016 Impacted cerumen, bilateral ; Note: Date Diagnosed : 11/29/2016 11:26 AM (H61.23) Note: Date Diagnosed : 11/29/2016 11:26 AM (H61.23) Not Available [facility] 4 01:02:50 Abnormal auditory perceptio n 61674266 Active 2018 Abnormal auditory perceptio n, unspecifi ed; Note: Date Diagnosed : 11/20/2014 5:39 PM (388.40) Note: Date Diagnosed : 11/20/2014 5:39 PM (388.40) ; Start Date : 5 Other abnormal auditory perceptio ns, bilateral ; Note: Date Diagnosed : 12/06/2018 1:15 PM (H93.293) Note: Date Diagnosed : 12/06/2018 1:15 PM (H93.293) Not Available [facility] 4 01:02:51 Mass of paraphary ngeal space [id number] 576895 Active 2023 MIKAEL DORMAN MD [address] [place] [address], [place], [address] , [facility] 4 09:11:36 Problem Notes None recorded. Procedures Surgical History Date Name Laterality Status Provider Name and Address Organization Details Recorded Time 04/22/2024 FOL_DP completed MIKAEL DORMAN MD [address] [place] [address], [phone], [facility] 04/22/2024 11:07:34 Imaging Results None recorded. Procedure Notes None recorded. Medical Equipment None Reported. Allergies Allergen ID Allergen Name Allergen Category Reaction Reaction Severity Criticality Documentation Date Start Date Code Code System Note Provider Name and Address Organization Details Recorded Time 419655 latex environme nt,medica tion Not available Not available Not available 04/22/2024 47747 91 RxNorm Su ceja [facility] 4 10:59:19 Medications Name Sig Start Date Stop Date Status Note LastModified by Organization Details LastModified Time doxycycli ne hyclate 100 mg capsule 04/22 completed Medicatio n ID: [id number] Dur ation Value: 10 Brand Name: doxycycli ne hyclate S end Method: E-Prescri bed Subs Allowed: subs OK Specia l Instructi on: TAKE ONE CAPSULE BY MOUTH TWICE A DAY Medic ationGene ricName: doxycycli ne hyclate M edication ID: [id number] Dur ation Value: 10 Brand Name: doxycycli ne hyclate S end Method: E-Prescri bed Subs Allowed: subs OK Specia l Instructi on: TAKE ONE CAPSULE BY MOUTH TWICE A DAY Medic ationGene ricName: doxycycli ne hyclate Not Available Not Available Not Available acetamino phen 300 mg-codein e 30 mg tablet 2014 active Medicatio n ID: [id number] Dur ation Value: 4 Brand Name: acetamino phen-code ine Send Method: E-Prescri bed Subs Allowed: subs OK Specia l Instructi on: TAKE 1 TABLET BY MOUTH EVERY 6 HOURS NEEDED FOR PAIN Medi cationGen ericName: acetamino phen-code ine Medic ation ID: [id number] Dur ation Value: 4 Brand Name: acetamino phen-code ine Send Method: E-Prescri bed Subs Allowed: subs OK Specia l Instructi on: TAKE 1 TABLET BY MOUTH EVERY 6 HOURS NEEDED FOR PAIN Medi cationGen ericName: acetamino phen-code ine Not Available Not Available Not Available theophyll ine ER 300 mg tablet,ex tended release,1 2 hr 04/22 completed Medicatio n ID: [id number] Dur ation Value: 90 Brand Name: theophyll ine Send Method: E-Prescri bed Subs Allowed: subs OK Specia l Instructi on: TAKE 1 TABLET BY MOUTH EVERY DAY Medic ationGene ricName: theophyll ine Medic ation ID: [id number] Dur ation Value: 90 Brand Name: theophyll [...] mg capsule 04/22 completed Medicatio n ID: [id number] Dur ation Value: 90 Brand Name: flaxseed oil Send Method: E-Prescri bed Subs Allowed: subs OK Specia l Instructi on: TAKE 2-3 CAPSULES BY MOUTH DAILY Med icationGe nericName : flaxseed oil Medic ation ID: [id number] Dur ation Value: 90 Brand Name: flaxseed oil Send Method: E-Prescri bed Subs Allowed: subs OK Specia l Instructi on: TAKE 2-3 CAPSULES BY MOUTH DAILY Med icationGe nericName : flaxseed oil Not Available Not Available Not Available mupirocin 2 % topical ointment 04/22 completed Medicatio n ID: [id number] Dur ation Value: 7 Brand Name: mupirocin Send Method: E-Prescri bed Subs Allowed: subs OK Specia l Instructi on: APPLY A SMALL AMOUNT TO AFFECTED AREA THREE TIMES A DAY Medic ationGene ricName: mupirocin Medicati on ID: [id number] Dur ation Value: 7 Brand Name: mupirocin Send Method: E-Prescri bed Subs Allowed: subs OK Specia l Instructi on: APPLY A SMALL AMOUNT TO AFFECTED AREA THREE TIMES A DAY Medic ationGene ricName: mupirocin Not Available Not Available Not Available polyethyl mesfin glycol 3350 17 gram/dose oral powder 04/22 completed Medicatio n ID: [id number] Dur ation Value: 30 Brand Name: polyethyl mesfin glycol 3350 Send Method: E-Prescri bed Subs Allowed: subs OK Specia l Instructi on: DISSOLVE 1 CAPFULE IN 4-8 OZ OF LIQUID DAILY NEEDED Me dicationG enericNam e: polyethyl mesfin glycol 3350 Medi cation ID: [id number] Dur ation Value: 30 Brand Name: polyethyl mesfin glycol 3350 Send Method: E-Prescri bed Subs Allowed: subs OK Specia l Instructi on: DISSOLVE 1 CAPFULE IN 4-8 OZ OF LIQUID DAILY NEEDED Me dicationG enericNam e: polyethyl mesfin glycol 3350 Not Available Not Available Not Available imipramin e 25 mg tablet 04/22 completed Medicatio n ID: [id number] Dur ation Value: 30 Brand Name: imipramin e HCl Send Method: E-Prescri bed Subs Allowed: subs OK Specia l Instructi on: TAKE 1 TABLET BY MOUTH EVERY MORNING AND 3 TABLETS EVERY EVENING M edication GenericNa me: imipramin e HCl Medic ation ID: [id number] Dur ation Value: 30 Brand Name: imipramin e HCl Send Method: E-Prescri bed Subs Allowed: subs OK Specia l Instructi on: TAKE 1 TABLET BY MOUTH EVERY MORNING AND 3 TABLETS EVERY EVENING M edication GenericNa me: imipramin e HCl Not Available Not Available Not Available loratadin e 10 mg tablet 2014 active Medicatio n ID: [id number] Dur ation Value: 30 Brand Name: loratadin e Send Method: E-Prescri bed Subs Allowed: subs OK Specia l Instructi on: TAKE 1 TABLET BY MOUTH DAILY Med icationGe nericName : loratadin e Medicat ion ID: [id number] Dur ation Value: 30 Brand Name: loratadin e Send Method: E-Prescri bed Subs Allowed: subs OK Specia l Instructi on: TAKE 1 TABLET BY MOUTH DAILY Med icationGe nericName : loratadin e Not Available Not Available Not Available Abilify 15 mg tablet 2014 active Medicatio n ID: [id number] Dur ation Value: 90 Brand Name: Abilify S end Method: E-Prescri bed Subs Allowed: subs OK Specia l Instructi on: TAKE 1 TABLET BY MOUTH EVERY MORNING M edication GenericNa me: Abilify M edication ID: [id number] Dur ation Value: 90 Brand Name: Abilify S end Method: E-Prescri bed Subs Allowed: subs OK Specia l Instructi on: TAKE 1 TABLET BY MOUTH EVERY MORNING M edication GenericNa me: Abilify Not Available Not Available Not Available Vesicare 5 mg tablet 2014 active Medicatio n ID: [id number] Dur ation Value: 90 Brand Name: Vesicare Send Method: E-Prescri bed Subs Allowed: subs OK Specia l Instructi on: TAKE 1 TABLET BY MOUTH EVERY MORNING M edication GenericNa me: Vesicare Medicatio n ID: [id number] Dur ation Value: 90 Brand Name: Vesicare Send Method: E-Prescri bed Subs Allowed: subs OK Specia l Instructi on: TAKE 1 TABLET BY MOUTH EVERY MORNING M edication GenericNa me: Vesicare Not Available Not Available Not Available Cogentin 04/22 completed Medicatio n ID: [id number] Br and Name: christian Send Method: E-Prescri bed Subs Allowed: subs OK Medica tionGener icName: christian Medicatio n ID: [id number] Br and Name: christian Send Method: E-Prescri [...] Diagnosis SNOMED-CT Code Diagnosis ICD10 Code Diagnosis IMO Codes Diagnosis Note [id number] MIKAEL DORMAN MD [facility] [address] [address] 04/22/2024 10:32:31 04/22/2024 11:17:22 Mass of parapharyngeal space [id number] 9887259 R22.1 [id number] MIKAEL DORMAN MD [facility] [address] [address] 01/10/2025 15:58:15 01/10/2025 16:10:21 Mass of parapharyngeal space [id number] 1180574 R22.1 Health Concerns Section Related Observation LastModified by Organization Detai ls LastModified Time None Recorded Concern Status LastModified by Organization Details LastModified Time None Recorded Advance Directives Directive None Recorded Payers Insurance Date Sequence Insurance Name Policy Number Policy Cobb Covered Member ID Cobb Member ID Guarantor Name 01/07/2025 2 [place] [facility] Kirsten Ronquillo [id number] Kirsten Ronquillo 01/07/2025 1 [place] [employer] Kirsten Ronquillo [id number] Kirsten M [place] Notes Date Note Type Note Provider Name and Address Organization Details Recorded Time 4 text/html ROS as noted in the [facility] right parapharyngeal lesionhx from Patricia who joined visit by phoneescorted by Jr who is her day staff at facility11/22/2023 MR pituitary with and without contrast at [facility] shows a prominence of the pituitary gland, possible pituitary adenoma. Incidental finding of a 25 mm right parapharyngeal space lesion is partially visualized no dysphagiavoice slight muffle thyroidectomy in October 2023 MIKAEL DORMAN MD [address] [facility] [place], [place], [address], [place] - [facility] 04/22/2024 11:11:35 5 text/html ROS as noted in the [facility] right parapharyngeal lesionescorted by Gideon 11/22/2023 MR pituitary with and without contrast at [facility] shows a prominence of the pituitary gland, possible pituitary adenoma. Incidental finding of a 25 mm right parapharyngeal space lesion is partially visualized 06/05/24 Dr Jadon Moran consultconservative management with serial imaging at 6 month and then annual through PCP. If new symptom of dysphagia or rapid enlargement could refer back for surgery discussion. 12/13/24 [facility], MR NeckT2 hyperintense slightly heterogeneous soft tissue mass in the right parapharyngeal region, measuring 2.4 x 2.8 x 3.8 cm. Stable compared with previous no dysphagia thyroidectomy in October 2023 MIKAEL DORMAN MD [address] [facility] [place], [place], [address], [place] [facility] 01/10/2025 16:09:59 OBGyn Episode No OBEpisode recorded.
--- OUTSIDE RECORDS SUMMARY | 2025-08-05 13:53 | XMS_ITS | Patient Health Record ---
Author Organization [facility] Address [address] [place] [address] Care Team Providers Care Drum Operator Name Role Phone Celina (RETIRED) Sher LORENZ Primary Care Provide r Unavailable Harvinder Simmons Unavailable [phone] Reason For Referral No Information Medications Medication SIG (Take, Route, Frequency, Duration) Notes Start Date End Date Status Multivitamin Adults Active VESIcare 5 MG TAKE 1 TABLET BY ALVERTO TH EVERY DAY Oral; Duration: 30 Active Theophylline 300 as directed Orally a s directed Active Ibuprofen 400 MG TAKE 1 TABLET BY ALVERTO TH 3 TIMES A DAY WITH FOOD NEEDED FOR BACK PAIN Oral; Duration: 20 Active Abilify 15 MG 1 tablet Orally Once a day Active Theophylline ER 300 MG TAKE 1 TABLET BY MOUTH EVERY DAY Oral; Duration: 90 Active albuterol 2.5 mg - - as directed for asthma Active Aspirin 81 MG TAKE 1 TABLET BY ALVERTO TH EVERY DAY Oral; Duration: 30 Active MiraLax Not-Taking Benztropine Mesylate 0.5 MG TAKE 1 TABLET BY MOUTH EVERY DAY AT NIGHT Oral; Duration: 90 Active Pain Relief Extra Strength 500 MG TAKE 1 TABLET BY MOUTH EVERY 4 HOURS NEEDED FOR PAIN Oral; Duration: 9 Active Imipramine HCl 25 MG TAKE 1 TAB IN THE MORNING AND 3 TABS AT NIGHT Oral; Duration: 90 Active Loratadine 10 MG TAKE 1 TABLET BY ALVERTO TH EVERY DAY Oral; Duration: 30 Active Vitamin C 500 MG TAKE 1 TABLET BY ALVERTO TH EVERY DAY Oral; Duration: 30 Active Nystatin 224072 UNIT/GM APPLY DIRECTE D TO SKIN TWICE A DAY External; Duration: 30 Active Colace 100 MG 1 capsule as needed Orally at hs Active ARIPiprazole 15 MG TAKE 1 TABLET BY ALVERTO TH EVERY DAY IN THE MORNING Oral; Duration: 90 Active Cogentin 0.5 at hs Active carBAMazepine 200 MG TAKE 1 TABLET IN TH E AM & 2 TABLETS AT NIGHT Oral; Duration: 90 Active Immunizations Vaccine Route Administration Date Status Comme nts Influenza Unknown 06/02/2018 Administered Problems Problem Type SNOMED Code ICD Code Onset Dates Problem Status W/U Status Risk Notes Problem Screening for malignant neoplasm of colon (201232373) Encounter for screening for malignant neoplasm of colon (Z12.11) Active confirmed Problem History of adenomatous polyp of colon (871138566) History of adenomatous polyp of colon (Z86.010) Active confirmed Problem History of malignant neoplasm of colon (734167646) History of colon cancer (Z85.038) Active confirmed Problem Hemorrhage of rectum and anus (548349392) Rectal bleed (K62.5) Active confirmed Problem History of malignant neoplasm of rectum (098113685) History of rectal cancer (Z85.048) Active confirmed Plan Of Treatment Future Test Test Name Order Date FLEXIBLE SIGMOIDOSCOPY, DIAGNOSTIC 06/23 COLONOSCOPY 04/23/2019 Insurance Providers Payer Name Payer Address Payer Phone Subscriber Number Group Number Insured Name Patient Relationship to Insured Coverage Start Date Coverage End Date MEDICARE OF [place] [address] [place] [address] [phone] [id number] YUDELKA ROTHMAN Self - patient is the insured MEDICAID OF [facility] [address] [place] [address] [id number] YUDELKA ROTHMAN Self - patient is the insured Medical (General) History Medical History History ICD Code colon and rectal cancer-in N 2000 she was found to have 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 Reyes, and subsequently with chemotherapy and radiation therapy by Dr. Luis. colon polyps asthma depression anxiety component of mental retardation she denies any history of [place], diabetes, stroke, nor kidney disease urinary incontinence Recurrence of adenomatous ti ssue at the rectal anastomosis in 2011--resected partially by Dr. Bashir, and then sent to [facility] in [place] for a second opiinion. 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 A colonoscopy in 07/2013 at [facility] is described as negative. Surgical History Surgery Date(Month/Year) colon and rectal cancer as above ear surgery tubal ligation hernia repair knee replacement bilateral
== END 2025-08-05 12:25 | disposition home or self-care (01) ==
PROVIDERS: PCP Physician Assistant; Visit Provider Physician Assistant
DX: R45.1 Restlessness and agitation (principal); F03.90 Unspecified dementia, unspecified severity, without behavioral disturbance, psychotic disturbance, mood disturbance, and anxiety; E89.0 Postprocedural hypothyroidism; N39.0 Urinary tract infection, site not specified; Z09 Encounter for follow-up examination after completed treatment for conditions other than malignant neoplasm; R93.89 Abnormal findings on diagnostic imaging of other specified body structures

== ENCOUNTER → 2025-08-05 11:19 | Outpatient (BNVA) | payer MEDICARE, MEDICAID, SELFPAY | PROVIDERS: Visit Provider Physician Assistant | DX: F03.90 Unspecified dementia, unspecified severity, without behavioral disturbance, psychotic disturbance, mood disturbance, and anxiety (principal); R45.1 Restlessness and agitation; E89.0 Postprocedural hypothyroidism; N39.0 Urinary tract infection, site not specified; R93.89 Abnormal findings on diagnostic imaging of other specified body structures; J18.9 Pneumonia, unspecified organism; F01.50 Vascular dementia, unspecified severity, without behavioral disturbance, psychotic disturbance, mood disturbance, and anxiety; R26.89 Other abnormalities of gait and mobility; Z91.81 History of falling; Z79.899 Other long term (current) drug therapy | CPT/HCPCS: 99212 ==

== ENCOUNTER 2025-08-18 10:30 | Outpatient (AMB) | payer MEDICARE, MEDICAID, SELFPAY ==
--- NOTE | 2025-08-18 10:31 | MHC.OFFVIS ---
Vital Signs 08/18/25 10:35 Height 5 ft 2 in Weight 156 lb 15.506 oz BMI 28.7 BP 132/72 Blood Pressure Location Rt brachial Position Sitting Pulse 56 Pulse Source Pulse Oximeter Intake Visit Reasons: f/u post-surgical hypothyroidism Intake Note: Patient present today for post surgical hypothyroidism follow up visit. Instructional Manager Required: No Accompanied by: Illusionist Allergies adhesive tape Allergy (Intermediate, Verified 08/18/25 10:36) itching and skin redness latex Allergy (Intermediate, Verified 08/18/25 10:36) skin rash and itching Seasonal Allergies Allergy (Verified 08/18/25 10:36) Itching weed pollen Allergy (Verified 08/18/25 10:36) stuffy nose DUST Allergy (Unknown, Uncoded 08/18/25 10:36) ITCHY/WATERY EYES surgical paper tape Allergy (Unknown, Uncoded 08/18/25 10:36) rash Tide Allergy (Unknown, Uncoded 08/18/25 10:36) rash HPI Comments Details: This is a 69-year-old white female followed by endocrinology for management of post-surgical hypothyroidism Laboratory Tests 10/17/22 10/17/22 10/17/22 11:39 11:39 11:39 Albumin 3.7 25-OH Vitamin D Total 40.4 TSH 0.10 L Free T4 0.85 Total T3 100 Thyroid Stim Immunoglob <89 PTH Intact 60 Calcium (PTH Intact) 8.9 Thyroglobulin Antibody <1 Thyroid Peroxidase Ab 1 TSH Receptor Ab <1.00 Laboratory Tests 01/30/23 02:34 TSH 1.62 status post total thyroidectomy 10/18/2023 with benign pathology. Currently on 175 mcg levothyroxine . Recent TSH was suppressed [facility] Medical History (Updated 08/06/25 @ 00:00 by Background Daemon) Cardiomegaly New abnormality on chest x-ray Mood disorder Vascular dementia Recurrent UTI Intermittent explosive disorder Abnormal MRI Post-surgical hypothyroidism History of ESBL E. coli infection Toxic multinodular goiter Vitamin D deficiency Hyperthyroidism Colon cancer Lung mass Developmental delay, mild Arthritis Surgical History History of carpal tunnel surgery of right wrist Hx of total thyroidectomy History of biopsy Hx of colonic polyps Hx of colonoscopy Family History Father No problems noted. Mother Medical history unknown Social History Household Members: Other Household Members Other:: retirement with 2 other women and 2 men Housing: Other Housing Other:: retirement Unable to assess alcohol history related to: Refusing to respond Alcohol intake: never Comment: 0+ Patient Tobacco Use Status: Never used Tobacco e-Cigarette/Vaping Use: Never Used Second Hand Smoke Exposure: No Advance Directives Date on File: 01/05/21 service: No Current occupational status: disabled Current occupation: right handed Sexual orientation: Straight/Heterosexual Cognitive needs: Yes (walker) Hearing needs: No Vision needs: Yes (rx glasses) Physical Exam Vital Signs: Last Vital Signs Pulse 56 08/18/25 10:35 BP 132/72 08/18/25 10:35 BMI result Body Mass Index 28.7 Const Other: Healing scar status post thyroidectomy Assessment & Plan Assessment & Plan (1) Post-surgical hypothyroidism: Code(s): E89.0 - Postprocedural hypothyroidism Category: Medical Plan: 69-year-old white female with a history of post-surgical hypothyroidism currently be replaced on levothyroxine 175 mcg. She appears to be clinically euthyroid but has a suppressed TSH level. Plan is to l recheck TSH and free T4 and adjust levothyroxine accordingly Coding Level of Care Code Est Pt Level 3 (62343) Diagnoses Post-surgical hypothyroidism E89.0
[2025-08-18 10:35] VITALS: BP 132/72; PULSE 56; BMI 28.7
== END 2025-08-18 10:47 | disposition home or self-care (01) ==
LOC: HO.ENCR 10:31
PROVIDERS: Visit Provider Internal Medicine Endocrinology, Diabetes & Metabolism
DX: E89.0 Postprocedural hypothyroidism (principal)
CPT/HCPCS: 99213

== ENCOUNTER 2025-08-18 10:50 | Outpatient (REF) | payer MEDICARE, MEDICAID, SELFPAY ==
[2025-08-18 14:22] LABS: Free T4 (Free Thyroxine) 1.13 ng/dL (0.71-1.85); Thyroid Stimulating Hormone 0.78 uIU/mL (0.32-4.0)
--- OUTSIDE RECORDS SUMMARY | 2025-08-18 22:27 | XMS_ITS | Data Portability ---
Author Organization [place] - [facility], Allergy Address [address] [address] Assessment Encounter Date Assessment Date Assessment LastModified by Organization Details LastModified Time 04/22/2024 04/22/2024 Incidental finding of right parapharyngeal lesion is partially visualized on previous MRI. Recommend further imaging with MRI neck with and without contrast and then likely referral to [place] for discussion of surgical intervention. 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 Requested to share results with Patricia Villavicencio RN [phone] [email or web address] Not available 04/22/2024 11:08:51 01/10/2025 01/10/2025 [...] geal lesion 2023 024 ATHENAX [facility], [address] [facility], [facility] [address], [place], [address], 11:29:49 Medication Orders None recorded. Patient TargetsNo targets recorded. Patient InstructionsNo instructions recorded. Reason for Referral None Reported. Results Created Date Observation Date Name Description Value Unit Range Abnormal Flag Note LastModifiedBy Organization Detail LastModifiedTime 05/01/20 24 04/30/2024 MRI, neck, w/ contr ast No observ ation record ed. dploy [facility] [address], [place], [address], 05/01/2024 10:09:56 05/01/20 24 04/30/2024 MRI, neck, w/ contr ast No observ ation record ed. dploy [facility] [address], [place], [address], 05/01/2024 10:09:56 12/16/19 25 12/13/2024 MRI, neck, w/o contr ast No observ ation record ed. [email or web address] [facility] [address], [place], [address], 12/17/2024 14:16:49 Result Notes None recorded. Problems Name Problem SNOMED Code Status Onset Date Resolution Date Notes Provider Name and Address Organization Details Recorded Time Sensorine ural hearing loss of bilateral ears 953818225 Active 2014 Sensorine ural HL, bilateral ; Note: Date Diagnosed : 11/20/2014 4:41 PM (389.18) Note: Date Diagnosed : 11/20/2014 4:41 PM (389.18) Not Available [facility] 4 01:02:50 Impacted cerumen 14669260 Active 2014 Impacted cerumen; CMS Risk: low [...] : 11/20/2014 5:40 PM (380.4) Not Available [facility] 4 01:02:54 Impacted cerumen of bilateral ears 95359294428 93618 Active 2016 Impacted cerumen, bilateral ; Note: Date Diagnosed : 11/29/2016 11:26 AM (H61.23) Note: Date Diagnosed : 11/29/2016 11:26 AM (H61.23) Not Available [facility] 4 01:02:50 Abnormal auditory perceptio n 10641971 Active 2018 Abnormal auditory perceptio n, unspecifi ed; Note: Date Diagnosed : 11/20/2014 5:39 PM (388.40) Note: Date Diagnosed : 11/20/2014 5:39 PM (388.40) ; Start Date : 5 Other abnormal auditory perceptio ns, bilateral ; Note: Date Diagnosed : 12/06/2018 1:15 PM (H93.293) Note: Date Diagnosed : 12/06/2018 1:15 PM (H93.293) Not Available [facility] 4 01:02:51 Mass of paraphary ngeal space 46823350089 424622 Active 2023 MIKAEL DORMAN MD [address] [place] [address], [place], [address] , [facility] 4 09:11:36 Problem Notes None recorded. Procedures Surgical History Date Name Laterality Status Provider Name and Address Organization Details Recorded Time 04/22/2024 FOL_DP completed MIKAEL DORMAN MD [address] [place] [address], [address], [facility] 04/22/2024 11:07:34 Imaging Results None recorded. Procedure Notes None recorded. Medical Equipment None Reported. Allergies Allergen ID Allergen Name Allergen Category Reaction Reaction Severity Criticality Documentation Date Start Date Code Code System Note Provider Name and Address Organization Details Recorded Time 380810 latex environme nt,medica tion Not available Not available Not available 04/22/[address] [facility] 4 10:59:19 Medications Name Sig Start Date Stop Date Status Note LastModified by Organization Details LastModified Time doxycycli ne hyclate 100 mg capsule 04/22 completed Medicatio n ID: [id number] Dur ation Value: 10 Brand Name: doxycycli ne hyclate S end Method: E-Prescri bed Subs Allowed: subs OK Specia l Instructi on: TAKE ONE CAPSULE BY MOUTH TWICE A DAY Medic ationGene ricName: doxycycli ne hyclate M edication ID: [id number] Dur ation Value: 10 Brand Name: doxycycli ne hyclate S end Method: E-Prescri bed Subs Allowed: subs OK Specia l Instructi on: TAKE ONE CAPSULE BY MOUTH TWICE A DAY Medic ationGene ricName: doxycycli ne hyclate Not Available Not Available Not Available acetamino phen 300 mg-codein e 30 mg tablet 2014 active Medicatio n ID: [id number] Dur ation Value: 4 Brand Name: acetamino phen-code ine Send Method: E-Prescri bed Subs Allowed: subs OK Specia l Instructi on: TAKE 1 TABLET BY MOUTH EVERY 6 HOURS NEEDED FOR PAIN Medi cationGen ericName: acetamino phen-code ine Medic ation ID: [id number] Dur ation Value: 4 Brand Name: acetamino phen-code ine Send Method: E-Prescri bed Subs Allowed: subs OK Specia l Instructi on: TAKE 1 TABLET BY MOUTH EVERY 6 HOURS NEEDED FOR PAIN Medi cationGen ericName: acetamino phen-code ine Not Available Not Available Not Available theophyll ine ER 300 mg tablet,ex tended release,1 2 hr 04/22 completed Medicatio n ID: [id number] Dur ation Value: 90 Brand Name: theophyll ine Send Method: E-Prescri bed Subs Allowed: subs OK Specia l Instructi on: TAKE 1 TABLET BY MOUTH EVERY DAY Medic ationGene ricName: theophyll ine Medic ation ID: [id number] Dur ation Value: 90 Brand Name: theophyll [...] mg capsule 04/22 completed Medicatio n ID: [id number] Dur ation Value: 90 Brand Name: flaxseed oil Send Method: E-Prescri bed Subs Allowed: subs OK Specia l Instructi on: TAKE 2-3 CAPSULES BY MOUTH DAILY Med icationGe nericName : flaxseed oil Medic ation ID: [id number] Dur ation Value: 90 Brand Name: flaxseed oil Send Method: E-Prescri bed Subs Allowed: subs OK Specia l Instructi on: TAKE 2-3 CAPSULES BY MOUTH DAILY Med icationGe nericName : flaxseed oil Not Available Not Available Not Available mupirocin 2 % topical ointment 04/22 completed Medicatio n ID: [id number] Dur ation Value: 7 Brand Name: mupirocin Send Method: E-Prescri bed Subs Allowed: subs OK Specia l Instructi on: APPLY A SMALL AMOUNT TO AFFECTED AREA THREE TIMES A DAY Medic ationGene ricName: mupirocin Medicati on ID: [id number] Dur ation Value: 7 Brand Name: mupirocin Send Method: E-Prescri bed Subs Allowed: subs OK Specia l Instructi on: APPLY A SMALL AMOUNT TO AFFECTED AREA THREE TIMES A DAY Medic ationGene ricName: mupirocin Not Available Not Available Not Available polyethyl mesfin glycol 3350 17 gram/dose oral powder 04/22 completed Medicatio n ID: [id number] Dur ation Value: 30 Brand Name: polyethyl mesfin glycol 3350 Send Method: E-Prescri bed Subs Allowed: subs OK Specia l Instructi on: DISSOLVE 1 CAPFULE IN 4-8 OZ OF LIQUID DAILY NEEDED Me dicationG enericNam e: polyethyl mesfin glycol 3350 Medi cation ID: [id number] Dur ation Value: 30 Brand Name: polyethyl mesfin glycol 3350 Send Method: E-Prescri bed Subs Allowed: subs OK Specia l Instructi on: DISSOLVE 1 CAPFULE IN 4-8 OZ OF LIQUID DAILY NEEDED Me dicationG enericNam e: polyethyl mesfin glycol 3350 Not Available Not Available Not Available imipramin e 25 mg tablet 04/22 completed Medicatio n ID: [id number] Dur ation Value: 30 Brand Name: imipramin e HCl Send Method: E-Prescri bed Subs Allowed: subs OK Specia l Instructi on: TAKE 1 TABLET BY MOUTH EVERY MORNING AND 3 TABLETS EVERY EVENING M edication GenericNa me: imipramin e HCl Medic ation ID: [id number] Dur ation Value: 30 Brand Name: imipramin e HCl Send Method: E-Prescri bed Subs Allowed: subs OK Specia l Instructi on: TAKE 1 TABLET BY MOUTH EVERY MORNING AND 3 TABLETS EVERY EVENING M edication GenericNa me: imipramin e HCl Not Available Not Available Not Available loratadin e 10 mg tablet 2014 active Medicatio n ID: [id number] Dur ation Value: 30 Brand Name: loratadin e Send Method: E-Prescri bed Subs Allowed: subs OK Specia l Instructi on: TAKE 1 TABLET BY MOUTH DAILY Med icationGe nericName : loratadin e Medicat ion ID: [id number] Dur ation Value: 30 Brand Name: loratadin e Send Method: E-Prescri bed Subs Allowed: subs OK Specia l Instructi on: TAKE 1 TABLET BY MOUTH DAILY Med icationGe nericName : loratadin e Not Available Not Available Not Available Abilify 15 mg tablet 2014 active Medic[place] n ID: [id number] Dur ation Value: 90 Brand Name: Abilify S end Method: E-Prescri bed Subs Allowed: subs OK Specia l Instructi on: TAKE 1 TABLET BY MOUTH EVERY MORNING M edication GenericNa me: Abilify M edication ID: [id number] Dur ation Value: 90 Brand Name: Abilify S end Method: E-Prescri bed Subs Allowed: subs OK Specia l Instructi on: TAKE 1 TABLET BY MOUTH EVERY MORNING M edication GenericNa me: Abilify Not Available Not Available Not Available Vesicare 5 mg tablet 2014 active Medicatio n ID: [id number] Dur ation Value: 90 Brand Name: Vesicare Send Method: E-Prescri bed Subs Allowed: subs OK Specia l Instructi on: TAKE 1 TABLET BY MOUTH EVERY MORNING M edication GenericNa me: Vesicare Medicatio n ID: [id number] Dur ation Value: 90 Brand Name: Vesicare Send Method: E-Prescri bed Subs Allowed: subs OK Specia l Instructi on: TAKE 1 TABLET BY MOUTH EVERY MORNING M edication GenericNa me: Vesicare Not Available Not Available Not Available Cogentin 04/22 completed Medicatio n ID: [id number] Br and Name: christian Send Method: E-Prescri bed Subs Allowed: subs OK Medica tionGener icName: christian Medicatio n ID: [id number] Br and Name: christian Send Method: E-Prescri [...] Note [id number] MIKAEL DORMAN MD [facility] [address] [address] 04/22/2024 10:32:31 04/22/2024 11:17:22 Mass of parapharyngeal space [id number] 8771476 R22.1 [id number] MIKAEL DORMAN MD [facility] [address] [address] 01/10/2025 15:58:15 01/10/2025 16:10:21 Mass of parapharyngeal space 4358560440 5604213 R22.1 Health Concerns Section Related Observation LastModified by Organization Detai ls LastModified Time None Recorded Concern Status LastModified by Organization Details LastModified Time None Recorded Advance Directives Directive None Recorded Payers Insurance Date Sequence Insurance Name Policy Number Policy Cobb Covered Member ID Cobb Member ID Guarantor Name 01/07/2025 2 [place] [facility] Kirsten Ronquillo [id number] Kirsten Ronquillo 01/07/2025 1 [place]IC[place] B[place] [employer] Kirsten Ronquillo [id number] Kirsten M Shima Notes Date Note Type Note Provider Name and Address Organization Details Recorded Time 4 text/html ROS as noted in the [facility] right parapharyngeal lesionhx from Patricia who joined visit by phoneescorted by Jr who is her day staff at facility11/22/2023 MR pituitary with and without contrast at [facility] shows a prominence of the pituitary gland, possible pituitary adenoma. Incidental finding of a 25 mm right parapharyngeal space lesion is partially visualized no dysphagiavoice slight muffle thyroidectomy in October 2023 MIKAEL DORMAN MD [address] [facility], [place], [address], [place] - [facility] 04/22/2024 11:11:35 5 text/html ROS as noted in the [facility] right parapharyngeal lesionescorted by Gideon 11/22/2023 MR [...] in October 2023 MIKAEL DORMAN MD [address] [facility],[address], [place], [address], [place] [facility] 01/10/2025 16:09:59 OBGyn Episode No OBEpisode recorded.
== END 2025-08-18 10:51 | disposition home or self-care (01) ==
LOC: HO.10HDL 10:50
PROVIDERS: Visit Provider Internal Medicine Endocrinology, Diabetes & Metabolism
DX: E89.0 Postprocedural hypothyroidism (principal)
CPT/HCPCS: 36415; 84439; 84443; 99212

== ENCOUNTER 2025-09-08 10:05 | Outpatient (AMB) | payer MEDICARE, MEDICAID, SELFPAY ==
[2025-09-08 10:08] VITALS: BP 120/62; PULSE 82; O2SAT 95; BMI 29.2
--- NOTE | 2025-09-08 10:08 | MHC.OFFVIS ---
Vital Signs 09/08/25 10:08 Height 5 ft 2 in Weight 159 lb 13.362 oz BMI 29.2 BP 120/62 Blood Pressure Location Rt brachial Position Sitting Pulse 82 Pulse Source Pulse Oximeter Pulse Oximetry (%) 95 Oxygen Delivery Method Room Air Intake Visit Reasons: Abnormal CT/Pneumonia Allergies adhesive tape Allergy (Intermediate, Verified 09/08/25 10:14) itching and skin redness latex Allergy (Intermediate, Verified 09/08/25 10:14) skin rash and itching Seasonal Allergies Allergy (Verified 09/08/25 10:14) Itching weed pollen Allergy (Verified 09/08/25 10:14) stuffy nose DUST Allergy (Unknown, Uncoded 09/08/25 10:14) ITCHY/WATERY EYES surgical paper tape Allergy (Unknown, Uncoded 09/08/25 10:14) rash Tide Allergy (Unknown, Uncoded 09/08/25 10:14) rash HPI HPI Abnormal CT/Pneumonia: Details: Kirsten is a pleasant 69 year old female, never smoker, with underlying asthma, colon cancer 2001, developmental delay and vascular dementia. [place] [facility] [place] and [place] [facility] [place]. She was referred by PCP for pulmonary evaluation after recent hospitalization where she was [place] [facility] [place] due to increased aggression and agitation, which prompted prolonged hospitalization however found to have pneumonia, CXR demonstrated right middle and lower consolidations. Ultimately had chest CT which demonstrated subsegmental atelectasis or small infiltrate in the left lower lobe with trace left pleural effusion with question of mosaic attenuation in the lungs greatest in the bilateral upper lobes. There was also note of cardiomegaly and prominent pulmonary arteries with the main pulmonary artery measuring 3.6 cm. Echocardiogram was performed on 07/04 with normal LV systolic function with EF 62% with mildly increased left ventricular wall thickness and no obvious valvular pathology. RVSP 30. No hypoxia noted during hospitalization. Ultimately patient was treated with antibiotics and discharged on Augmentin and Zithromax. Since discharge, patient reports significant improvements and currently denies any respiratory symptoms, which staff endorses. She denies any cough, fevers, chills, dyspnea or wheezing. She does have a h/o asthma, reportedly diagnosed as an adult, not currently on any respiratory medications as patient reports symptoms are very infrequent. She denies any hospitalizations related to respiratory distress or need for supplemental oxygen. She denies any dysphagia or recurrent pneumonias. She endorses seasonal allergies. She also reports prior h/o colon cancer per records 2001, however details regarding this are not available. Patient reports having surgery and chemo, although can not confirm. She denies any perinent family history. [facility] Medical History (Updated 09/08/25 @ 11:08 by Tara Barreto NP) Vascular dementia Cardiomegaly New abnormality on chest x-ray Mood disorder Recurrent UTI Intermittent explosive disorder Abnormal MRI Post-surgical hypothyroidism History of ESBL E. coli infection Toxic multinodular goiter Vitamin D deficiency Hyperthyroidism Colon cancer Lung mass Developmental delay, mild Arthritis Surgical History History of carpal tunnel surgery of right wrist Hx of total thyroidectomy History of biopsy Hx of colonic polyps Hx of colonoscopy Family History Father No problems noted. 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 Housing: Other Housing Other:: correction Alcohol intake: never Comment: 0+ Patient Tobacco Use Status: Never used Tobacco e-Cigarette/Vaping Use: Never Used Second Hand Smoke Exposure: No Advance Directives Date on File: 01/05/21 service: No Current occupational status: disabled Current occupation: right handed Sexual orientation: Straight/Heterosexual Cognitive needs: Yes (walker) Hearing needs: No Vision needs: Yes (rx glasses) Review of Systems Const Denies chills, Denies excessive sweating, Denies fever(s), Denies headache(s) and Denies night sweats Eyes Denies dry eyes and Denies irritation ENT Reports Normal hearing present, Denies headache(s), Denies nasal congestion, Denies nasal discharge, Denies post nasal drip and Denies sore throat Card Denies chest pain, Denies chest pain at rest, Denies chest pain with activity, Denies claudication, Denies leg edema, Denies dyspnea, Denies dyspnea on exertion, Denies orthopnea and Denies paroxysmal nocturnal dyspnea Resp Denies chest congestion, Denies cough, Denies excessive phlegm production, Denies pain on inspiration, Denies pain with cough, Denies dyspnea, Denies dyspnea on exertion, Denies stridor and Denies wheezing Musc Denies myalgias Neuro Reports Normal hearing present and Denies headache(s) Endo Denies excessive sweating Felix/Lymph Denies lymphadenopathy Aller/Immun Denies wheezing Physical Exam Vital Signs: Last Vital Signs Pulse 82 09/08/25 10:08 BP 120/62 09/08/25 10:08 Pulse Ox 95 09/08/25 10:08 Oxygen Delivery Method Room Air 09/08/25 10:08 BMI result Body Mass Index 29.2 Const General: cooperative, comfortable, no acute distress and alert Limitations: ambulation with walker HEENT Head: Yes normal to inspection, Yes normocephalic and Yes atraumatic Ears: hearing grossly normal bilaterally and external ears normal Eyes General: appearance normal, both eyes and all related structures Eyelids: Yes eyelids normal Sclerae: sclerae normal EOM: EOMs intact bilaterally Neck Neck: Yes normal visual inspection and Yes no lymphadenopathy Lymphatic: no lymphadenopathy noted Chest Chest palpation & inspection: normal inspection of the chest Resp Effort & Inspection: normal respiratory effort, able to speak in complete sentences, no audible wheezes, no cough, no stridor, not tachypneic, no tripod positioning and no use of accessory muscles Auscultation: clear to auscultation bilaterally Cardio Jugular venous distension: no JVD Rate: regular rate Rhythm: regular rhythm Skin Other: warm, dry General skin exam: no rashes or lesions noted Neuro Cranial nerves: Yes Normal hearing present Cognition (Neuro): normal cognition Extrem General: Yes normal to inspection, Yes capillary refill normal, Yes no clubbing, cyanosis or edema and Yes no pedal edema Psych Appearance: grossly normal and well kempt Speech and movement: Normal speech and movement present and Clear speech present Affect: normal affect Attitude: cooperative Thought process: Normal thought process present Thought content: Normal thought content present Insight: Fair insight present (Psych) Judgement: Fair judgement present (Psych) Results Reviewed Results Reviewed: [address] [address] [address] Scan Report Signed Patient: Kirsten Ronquillo MR#: [id number] : 1955 Acct:[id number] Age/Sex: 69 / F ADM Date: 06/23/25 Loc: HO.PGERI 185-[address]: Izabella Presley NP Ordering Physician: Anastasia Sandoval DNP Date of Service: 07/25/25 Procedure(s): CT chest wo IV con Accession Number(s): [id number] cc: Anastasia Sandoval DNP; Physician,Unknown ~ Report Number: [id number]: Total DLP = 222.00 mGy-cm Reason for Exam: Abnormal Chest Xray EXAMINATION: CT CHEST WITHOUT IV CONTRAST INDICATION: Abnormal Chest Xray COMPARISON: Previous CT of the abdomen and pelvis March 2025, chest x-ray most recently July 24, 2025 and CTA of the chest September 2015 TECHNIQUE: Helical CT scan of the chest was performed without intravenous contrast. Coronal and sagittal reformatted images were generated and reviewed. This CT exam was performed with one or more of the following dose reduction techniques: automated exposure control, adjustment of the mA and/or kV according to patient size, use of iterative reconstruction technique. DLP: 222 mGy-cm CHEST: THYROID: Thyroid gland not seen and may have been removed.. LUNGS: Limited evaluation of the lungs due to respiratory motion artifact. There is subsegmental atelectasis or small infiltrate in the left lower lobe. There is heterogeneous attenuation of the lungs, particularly the upper lobes, question mosaic perfusion. MEDIASTINUM: There is no mediastinal lymphadenopathy. There is question of mild circumferential wall thickening of the proximal thoracic esophagus. Esophagus otherwise unremarkable. No mediastinal air or fluid. NAIN: Evaluation of the hilar regions is limited by lack of intravenous contrast material. CARDIOVASCULATURE: The heart is enlarged. There is a very small pericardial effusion. Upper normal size tortuous thoracic aorta. Linear density adjacent to the aortic arch, question vascular representing communication with the left brachiocephalic or left superior intercostal vein and hemiazygos vein. This is unchanged from prior chest CTA. Slightly dilated pulmonary arteries, main pulmonary artery measuring 3.6 cm. DEGREE OF CORONARY CALCIFICATION: mild PLEURA: Trace left pleural effusion. There is no right pleural effusion. No pneumothorax. MAIN AIRWAYS: The mainstem bronchi and proximal branches are patent. AXILLA: There is no axillary lymphadenopathy. BONES AND SOFT TISSUES: Degenerative changes of the spine. UPPER ABDOMEN: Increased attenuation in the gallbladder questionable for gallstones. Mild left hydronephrosis. This is similar to prior CT of the abdomen and pelvis from March [address]25. CT/CT chest wo IV con IMPRESSION: Limited exam due to respiratory motion artifact. Subsegmental atelectasis or small infiltrate in the left lower lobe. Trace left pleural effusion. Question mosaic attenuation in the lungs, greatest in the bilateral upper lobes. Enlarged heart and trace pericardial effusion. Prominent pulmonary arteries, main pulmonary artery measuring 3.6 cm. Question circumferential wall thickening of the proximal thoracic esophagus. No mediastinal fluid or air. Electronically signed by: Niharika Wade MD 07/25/2025 04:27 PM EDT RP Assessment & Plan Assessment & Plan (1) History of recent pneumonia: Code(s): Z87.01 - Personal history of pneumonia (recurrent) Category: Medical (2) Developmental delay, mild: Code(s): R62.50 - Unspecified lack of expected normal physiological development in childhood Category: Medical Plan Sadie presents after recent hospitalization found to have LLL pneumonia and treated with Augmentin in addition to Zithromax and Doxycycline. Compared abdominal CT 03/[address] chest 07/26, which demonstrated new LLL consolidation/mass favored to be an infectious process given it was not present on March CT however there was a previous diagnosis of lung mass in chart and h/o colon cancer. Will send for repeat chest CT to assess for resolution of LLL PNA now that she has completed antibiotics and currently denies any respiratory symptoms. She is aware to call if symptoms change. She also reports h/o asthma, currently controlled, she is aware to call if asthma becomes less controlled. Unlikely she would be able to complete PFT given intellectual disability. All questions were answered and patient is in agreement of plan. Will follow up to review results or sooner if needed. Orders: Orders CT chest wo IV con 4 Weeks R93.89 - Abnormal findings on diagnostic imaging of other specified body structures Coding Level of Care Code New Pt Level 4 (67244) Complex visit Add On G2211 Diagnoses History of recent pneumonia Z87.01 Developmental delay, mild R62.50
== END 2025-09-08 11:16 | disposition home or self-care (01) ==
LOC: HO.HPS 10:06
PROVIDERS: PCP Physician Assistant; Referring Provider Physician Assistant; Visit Provider Nurse Practitioner Family
DX: Z87.01 Personal history of pneumonia (recurrent) (principal); R62.50 Unspecified lack of expected normal physiological development in childhood
CPT/HCPCS: 99204; G2211

== ENCOUNTER → 2025-09-08 10:05 | Outpatient (BNVA) | payer MEDICARE, MEDICAID, SELFPAY | PROVIDERS: PCP Physician Assistant; Referring Provider Physician Assistant; Visit Provider Nurse Practitioner Family | DX: Z09 Encounter for follow-up examination after completed treatment for conditions other than malignant neoplasm (principal); F01.50 Vascular dementia, unspecified severity, without behavioral disturbance, psychotic disturbance, mood disturbance, and anxiety; R62.50 Unspecified lack of expected normal physiological development in childhood; Z87.01 Personal history of pneumonia (recurrent) | CPT/HCPCS: 99202 ==